=== PATIENT | female | born 1955 | race Caucasian/White ===

== ENCOUNTER 2020-10-27 11:46 | Inpatient (IN) ==
--- NOTE | 2020-10-27 12:22 | Emergency Department Note ---
History of Present Illness General Chief complaint: Illness Stated complaint: ILLNESS Time Seen by Provider: 10/27/20 12:02 Source: patient History of Present Illness Provider complaint: Diarrhea Onset (ago): day(s) Location: abdomen Severity: moderate Pain Consistency: + intermittent Quality: + other (Watery and loose) Exacerbated By: + other (Lack of her IBS medication) Associated symptoms: + fever/chills (Tactile fever last week), + nausea/vomiting and + weakness (Generalized); no chest pain, no cough, no headaches and no shortness of breath This is a 65-year-old female with a history of diabetes presenting with diarrhea. She has had it for over a week. She states that it is watery and loose. No alleviating factors. She states she believes she has it because she normally takes IBS and "binding" medication but has not had her meds for some time. She states that she normally has a helper who brings her groceries and her medications but they have not come for some time and she has had nothing to eat for the past several days and has not had her insulin or other medications. She has had some vomiting. She denies any headache, chest pain, abdominal pain, cough or cold symptoms or urinary symptoms. She does state that she feels like she is not urinating as much as usual. Paramedics report that the patient's refrigerator was empty and that her living space was in disarray. Home Medications Medication Instructions Recorded Confirmed Type buspirone 15 mg PO TID 10/25/20 10/27/20 History cholestyramine (with sugar) 1 ea PO BID 10/25/20 10/27/20 History clonazepam 0.5 mg PO BID 10/25/20 10/27/20 History divalproex 500 mg PO TID 10/25/20 10/27/20 History escitalopram oxalate 10 mg PO DAILY 10/25/20 10/27/20 History furosemide 20 mg PO QAM 10/25/20 10/27/20 History gabapentin 100 mg PO TID 10/25/20 10/27/20 History insulin aspart U-100 [Novolog 0 unit SUBCUT UD 10/25/20 10/27/20 History Flexpen U-100 Insulin] insulin glargine [Basaglar KwikPen 21 unit SUBCUT HS 10/25/20 10/27/20 History U-100 Insulin] [id number] [Creon] 1 cap PO TID 10/25/20 10/27/20 History pantoprazole 40 mg PO DAILY 10/25/20 10/27/20 History quetiapine 400 mg PO DAILY 10/25/20 10/27/20 History rivaroxaban [Xarelto] 20 mg PO DAILY 10/25/20 10/27/20 History loperamide [Anti-Diarrhea] 2 mg PO Q6H PRN 10/27/20 10/27/20 History Allergies Allergy/AdvReac Type Severity Reaction Status Date / Time egg AdvReac Severe Vomiting Unverified 10/27/20 12:34 Penicillins AdvReac Severe Vomiting Unverified 10/27/20 12:34 Past Med/Surg History Medical History (Updated 10/27/20 @ 18:26 by Helio Parisi MD) Anxiety and depression Arthritis Diabetes GERD (gastroesophageal reflux disease) Irritable bowel syndrome Schizoaffective disorder Surgical History (Updated 10/27/20 @ 14:57 by Elmo Centeno MD) History of section x2 Social History Smoking Status: Current every day smoker Cigarettes Per Day: patient doesn't know; Second Hand Exposure: Yes; Do You Dip or Chew Tobacco: No; Tobacco Cessation Education Requested by Patient: No Hx Alcohol Use: No Hx Substance Use: No Preferred Language: Sami Communication Ability: Effective Communication Ability Comment: can read and write just states she can't spell very well Gear Shaper Required: No Beliefs That Will Affect Care: None Current Living Situation: Alone Other Information That Helps Us Care for You: No Feels Safe at Home: No Is there a partner from a previous relationship who is making you feel unsafe now?: No Any Concerns about Your Family Situation: No Would You Like to Speak to Someone About Your Situation: Yes (patient is afraid for self because she can't care for herself) Safety Concerns: Afraid for Self Assistive Devices: Walker and Wheelchair Review of Systems See HPI for pertinent positives & negatives. and A total of 10 systems reviewed and were otherwise negative Physical Exam Vital Signs Vital Signs - 24 hr 10/27/20 11:40 10/27/20 12:51 10/27/20 13:00 Temperature 36.4 C L Temperature Source Oral Pulse Rate 83 84 84 Pulse Rate from SpO2 Sensor 84 84 Respiratory Rate 17 24 16 Blood Pressure 167/91 H 164/82 H 149/77 H Blood Pressure Mean 116 107 93 Pulse Oximetry 94 94 95 Oxygen Delivery Method Room Air Room Air Room Air Sepsis Recent Fever Within 48 Hours No Sepsis New/Unexplained Change in Mental Status No Sepsis Action Taken by Nursing No Action Required 10/27/20 13:30 10/27/20 14:00 10/27/20 14:30 Temperature Temperature Source Pulse Rate 83 82 Pulse Rate from SpO2 Sensor 84 83 82 Respiratory Rate 22 16 17 Blood Pressure 153/88 H 168/95 H 144/76 H Blood Pressure Mean 108 122 101 Pulse Oximetry 93 95 95 Oxygen Delivery Method Room Air Room Air Room Air Sepsis Recent Fever Within 48 Hours Sepsis New/Unexplained Change in Mental Status Sepsis Action Taken by Nursing 10/27/20 15:00 Temperature Temperature Source Pulse Rate 82 Pulse Rate from SpO2 Sensor 82 Respiratory Rate 13 Blood Pressure 138/84 Blood Pressure Mean 99 Pulse Oximetry 95 Oxygen Delivery Method Sepsis Recent Fever Within 48 Hours Sepsis New/Unexplained Change in Mental Status Sepsis Action Taken by Nursing Constitutional: Vital signs reviewed. Eyes: Pupils are equal round reactive to light. Conjunctiva are noninjected. ENT: Pharynx is clear without erythema or exudate. Mucous membranes are moist. Neck supple without meningeal signs. Respiratory: Clear to auscultation bilaterally. Breath sounds are equal bilaterally. Cardiovascular: Regular rate and rhythm. No rubs or gallops. GI: Soft, nondistended and nontender. Bowel sounds are present. Musculoskeletal: No peripheral edema. No lower extremity tenderness. Integumentary: No cyanosis. or jaundice. Neurological: The patient is awake and alert. No focal deficits. Psychiatric: Normal affect. Not anxious appearing. Course Administered Medications Discontinued Medications Potassium Chloride (K Zeferino / Wtr) 10 meq in 100 mls @ 100 mls/hr IV ONE ONE Stop: 10/27/20 14:32 Last Infusion: 10/27/20 14:52 Dose: 0 mls/hr Documented by: [id number] Admin: 10/27/20 13:45 Dose: 100 mls/hr Documented by: [id number] Sodium Chloride (Nss) 500 mls @ 125 mls/hr IV .Q4H MARY Stop: 11/26/20 13:44 Last Infusion: 10/27/20 17:53 Dose: 0 mls/hr Documented by: [id number] Admin: 10/27/20 13:45 Dose: 125 mls/hr Documented by: [id number] Insulin Aspart (Insulin Aspart Per Unit) 4 units SC ONE ONE Stop: 10/27/20 15:31 Last Admin: 10/27/20 16:39 Dose: Not Given Documented by: [id number] Ondansetron HCl (Ondansetron Inj 2 Mg/Ml 2 Ml Vial) 4 mg IV NOW STA Stop: 10/27/20 13:35 Last Admin: 10/27/20 13:45 Dose: 4 mg Documented by: [id number] Medical Decision Making Differential Diagnosis Gastroenteritis, dehydration, electrolyte abnormality, hyperglycemia, DKA, YANA Medical Records Attestation: I reviewed the patient's medical records. The patient was just seen here 2 days ago for similar symptoms as well as extremity pain. She was worked up extensively here with CT scans as well as CT angiograms and Doppler ultrasound of the extremity as well as x-rays and blood work. Her symptoms appear to improve significantly with a dose of morphine. She was tested for COVID-19 and this was negative. She was discharged home. Home Medications Current Medication List: was personally reviewed by me Laboratory Data Attestation: I reviewed the patient's lab results. Result diagrams: 10/27/20 12:50 10/27/20 12:50 Lab Results 10/27/20 10/27/20 10/27/20 Range/Units 12:50 12:50 12:50 WBC 6.04 (4.8-10.8) K/uL RBC 4.74 (4.2-5.4) M/uL Hgb 10.7 L (12.0-16.0) g/dL Hct 36.3 L (37-47) % MCV 76.6 L (80-100) fL MCH 22.6 L (25-34) pg MCHC 29.5 L (32-36) g/dL RDW Std Deviation 44.3 (36.4-46.3) fL RDW Coeff of [place] 16.0 H (11.5-14.5) % Plt Count 215 (130-400) K/uL MPV 9.6 (7.4-10.4) fL Immature Gran % (Auto) 0.3 % Neut % (Auto) 39.9 % Lymph % (Auto) 51.3 % [place] % (Auto) 7.5 % Eos % (Auto) 0.8 % Baso % (Auto) 0.2 % Neut # (Auto) 2.41 (1.4-6.5) K/uL Lymph # (Auto) 3.10 (1.2-3.4) K/uL [place] # (Auto) 0.45 (0.11-0.59) K/uL Eos # (Auto) 0.05 (0-0.5) K/uL Baso # (Auto) 0.01 (0-0.2) K/uL Immature Gran # (Auto) 0.02 (0.00-0.02) K/uL PT 11.9 (9.0-12.0) Seconds INR 1.1 (0.9-1.1) APTT 21.4 (21.0-31.0) Seconds PTT Ratio 0.8 Sodium 138 (136-145) mmol/L Potassium 2.9 L (3.5-5.1) mmol/L Chloride 103 (98-107) mmol/L Carbon Dioxide 28 (21-32) mmol/L Anion Gap 7.0 (3-11) BUN 5 L (7-18) mg/dl Creatinine 0.71 (0.6-1.2) mg/dl Est Cr Clr Drug Dosing 92.4 ml/min Est GFR ( Amer) 105.1 Est GFR (Non-Af Amer) 90.7 BUN/Creatinine Ratio 7.2 L (10-20) Glucose 296 H (70-99) mg/dl Calcium 8.9 (8.5-10.1) mg/dl Total Bilirubin 0.3 (0.2-1) mg/dl AST 9 L (15-37) U/L ALT 11 L (12-78) U/L Alkaline Phosphatase 246 H (45-117) U/L Troponin I < 0.015 (0-0.045) ng/ml Total Protein 6.9 (6.4-8.2) gm/dl Albumin 3.0 L (3.4-5.0) gm/dl Globulin 3.9 (2.5-4.0) gm/dl Albumin/Globulin Ratio 0.8 L (0.9-2) TSH (0.300-4.500) uIu/ml Free T4 (0.8-1.6) ng/dl 10/27/20 Range/Units 12:50 WBC (4.8-10.8) K/uL RBC (4.2-5.4) M/uL Hgb (12.0-16.0) g/dL Hct (37-47) % MCV (80-100) fL MCH (25-34) pg MCHC (32-36) g/dL RDW Std Deviation (36.4-46.3) fL RDW Coeff of Vernon (11.5-14.5) % Plt Count (130-400) K/uL MPV (7.4-10.4) fL Immature Gran % (Auto) % Neut % (Auto) % Lymph % (Auto) % [place] % (Auto) % Eos % (Auto) % Baso % (Auto) % Neut # (Auto) (1.4-6.5) K/uL Lymph # (Auto) (1.2-3.4) K/uL [place] # (Auto) (0.11-0.59) K/uL Eos # (Auto) (0-0.5) K/uL Baso # (Auto) (0-0.2) K/uL Immature Gran # (Auto) (0.00-0.02) K/uL PT (9.0-12.0) Seconds INR (0.9-1.1) APTT (21.0-31.0) Seconds PTT Ratio Sodium (136-145) mmol/L Potassium (3.5-5.1) mmol/L Chloride (98-107) mmol/L Carbon Dioxide (21-32) mmol/L Anion Gap (3-11) BUN (7-18) mg/dl Creatinine (0.6-1.2) mg/dl Est Cr Clr Drug Dosing ml/min Est GFR ( Amer) Est GFR (Non-Af Amer) BUN/Creatinine Ratio (10-20) Glucose (70-99) mg/dl Calcium (8.5-10.1) mg/dl Total Bilirubin (0.2-1) mg/dl AST (15-37) U/L ALT (12-78) U/L Alkaline Phosphatase (45-117) U/L Troponin I (0-0.045) ng/ml Total Protein (6.4-8.2) gm/dl Albumin (3.4-5.0) gm/dl Globulin (2.5-4.0) gm/dl Albumin/Globulin Ratio (0.9-2) TSH 5.210 H (0.300-4.500) uIu/ml Free T4 0.81 (0.8-1.6) ng/dl Imaging Data Radiologist's Impression: XR chest 1V portable HISTORY: Cough. eval for pna COMPARISON: Chest 10/25/2020. FINDINGS: Small linear densities at the left lung base suggestive of scarring or atelectasis. Otherwise, lungs are clear. No pleural effusions. No pneumothorax. The heart remains top normal in size. IMPRESSION: No significant change compared to the prior study. No acute process. ACT 112: Negative or not required by law. Electronically signed by: Wilfredo Byers M.D. 10/27/2020 1:03 PM Dictated: 10/27/20 1301 Transcribed: 10/27/20 1301 ECG Data Attestation: I personally reviewed and interpreted this ECG as follows: Indication: + weakness Rate (beats per minute): 81 Rhythm: + normal sinus ECG Intervals/blocks: + Right Bundle branch block ECG ST segments: + T-wave inversions ECG Findings: no PVCs Comparison ECG Date: from (October 25, 2020) Change: no significant change MDM Narrative I did evaluate the patient as noted above. She is presenting with vomiting and diarrhea. She states that she feels weak as well andShe is presenting with vomiting and diarrhea. She states that she feels weak as well andAnd does not know the last time she took her medications. She has poor recall of dates and states that she is not sure who used to bring her groceries. EMS had noted that she had no groceries in the refrigerator. IV access was established. I did place an order for continuous cardiac monitoring. The monitor showed Normal sinus rhythm at a rate of 78 bpm. I did order and personally review the patient's 12-lead EKG as described above. She has a right bundle branch block. I did order and personally reviewed the images of the patient's chest x-ray as described above. There is no evidence of pneumonia. I did order a urine analysis. I did order and review the patient's blood work as noted in the electronic medical record. She has hypokalemia and hyperglycemia. She has chronic anemia. I did treat her with KCl IV. She was also started on normal saline IV. I did discuss the case with the block and case maker. Unfortunately there is no bed availability for placement and no room at the rehabilitation hospital. She will be therefore hospitalized here for further care and evaluation. I did discuss the case with the hospitalist. Impression & Plan Hypokalemia, Failure to thrive, Acute hyperglycemia, Vomiting and diarrhea, Anemia Discharge Plan Visit Data Chief Complaint: Illness Stated Complaint: ILLNESS ED Provider: Helio Parisi Discharge Problem: Hypokalemia, Failure to thrive, Acute hyperglycemia, Vomiting and diarrhea, Anemia Patient Disposition: Admitted As Inpatient Discharge Instructions Interventions: ED Discharge Assessment Last Done: 10/27/20 16:44
[2020-10-27 13:01] LABS: Hematocrit (blood only) 36.3 % (37-47); Hemoglobin 10.7 g/dL (12.0-16.0); Mean Corpuscular Hemoglobin 22.6 pg (25-34); Mean Corpuscular Hgb Conc 29.5 g/dL (32-36); Mean Corpuscular Volume 76.6 fL (80-100); Mean Platelet Volume 9.6 fL (7.4-10.4); Platelet Count 215 K/uL (130-400); RDW Standard Deviation 44.3 fL (36.4-46.3); Red Blood Count 4.74 M/uL (4.2-5.4); White Blood Count 6.04 K/uL (4.8-10.8)
--- NOTE | 2020-10-27 13:04 | XRay Report ---
XR chest 1V portable HISTORY: Cough. eval for pna COMPARISON: Chest 10/25/2020. FINDINGS: Small linear densities at the left lung base suggestive of scarring or atelectasis. Otherwi se, lungs are clear. No pleural effusions. No pneumothorax. The heart remains top normal in size. IMPRESSION: No significant change compared to the prior study. No acute process. ACT 112: Negative or not required by law. Electronically signed by: Wilfredo Byers M.D. 10/27/2020 1:03 PM
[2020-10-27 13:12] LABS: INR 1.1 (0.9-1.1); Partial Thromboplastin Ratio 0.8; Partial Thromboplastin Time 21.4 Seconds (21.0-31.0); Prothrombin Time 11.9 Seconds (9.0-12.0)
[2020-10-27 13:19] LABS: Alanine Aminotransferase 11 U/L (12-78); Aspartate Aminotransferase 9 U/L (15-37); BUN Creatinine Ratio 7.2 (10-20); Blood Urea Nitrogen 5 mg/dl (7-18); Calcium 8.9 mg/dl (8.5-10.1); Carbon Dioxide 28 mmol/L (21-32); Chloride 103 mmol/L (98-107); Creatinine Clr Calc Pharmacy 92.4 ml/min; Est GFR (African American) 105.1; Est GFR (Non-African American) 90.7; Glucose 296 mg/dl (70-99); Potassium 2.9 mmol/L (3.5-5.1); Sodium 138 mmol/L (136-145)
[2020-10-27 13:24] LABS: Albumin Globulin Ratio 0.8 (0.9-2); Alkaline Phosphatase 246 U/L (45-117); Bilirubin,Total 0.3 mg/dl (0.2-1); Globulin 3.9 gm/dl (2.5-4.0); Total Protein 6.9 gm/dl (6.4-8.2); Troponin I < 0.015 ng/ml (0-0.045)
[2020-10-27 13:31] LABS: Basophils # (auto) 0.01 K/uL (0-0.2); Basophils % (auto) 0.2 %; Eosinophils # (auto) 0.05 K/uL (0-0.5); Eosinophils % (auto) 0.8 %; Immature Granulocytes # (auto) 0.02 K/uL (0.00-0.02); Immature Granulocytes % (auto) 0.3 %; Lymphocytes % (auto) 51.3 %; Monocytes # (auto) 0.45 K/uL (0.11-0.59); Monocytes % (auto) 7.5 %; Neutrophils # (auto) 2.41 K/uL (1.4-6.5); Neutrophils % (auto) 39.9 %
[2020-10-27] MEDS ORDERED: POTASSIUM CHLORIDE / WTR 10 MEQ/100 ML PLCT IV ONE (13:33)
[2020-10-27] MEDS ORDERED: ONDANSETRON INJ 2 MG/ML 2 ML VIAL IV STA (13:34)
[2020-10-27] MEDS: SODIUM CHLORIDE 0.9% 500 ML IV SCH ×2 (13:45→19:25)
--- NOTE | 2020-10-27 14:37 | History & Physical Report ---
Date of Service October 27, 2020 Assessment & Plan (1) Failure to thrive: PT/OT/discharge planning for likely need for placement (2) Anxiety and depression: Continue her routine mental health medication - unable to confirm this with PCP on admission however. Quetiapine 400mg HS daily, escitalopram 10mg PO daily, buspirone 15mg PO TID, valproate 500mg PO TID (no Hx seizure disorder) Will reduce clonazepam dose due to concern for short term memory loss (3) Schizoaffective disorder: as above (4) Irritable bowel syndrome: Continue her usual outpatient regimen with cholestyramine BID, pancreatic enzymes (?diagnosis of pancreatic insufficiency, no prior pancreatitis) and loperamide PRN. (5) Hypokalemia: Replaced in ER and with IV fluids. Monitor with AM labs. (6) Microcytic anemia: Iron studies with AM labs, follow up as an outpatient for potential need for colonoscopy. (7) Diabetes: HbA1C with AM labs. Switch Basaglar 21 units daily to lantus 10 units BID Novolog: Goal BSG Range: Low 100 mg/dL, High 140 mg/dL Correction Factor: 40 mg/dL/unit INS:CHO Ratio: 1unit per 13 gms CHO consumed BSGs ACHS if eating, q6h if npo (8) History of pulmonary embolism: Continue Xarelto 20mg PO daily Admission and Anticipated Discharge Date Admission Date: 10/27/2020 History of Present Illness Chief Complaint: Inability to care for herself, request for rehab placement Primary Care Provider: Kevin Lainez Tierra Gil is a 65-year-old female who presents to the ER via EMS due to unkept state and unable to care for self. She reports short term memory loss and did not take her medications this morning since she didn't have them and is unable to remember the last time she took them . She recently moved to [place], [place] but is unable to tell me for how long "maybe weeks". She has 2 daughters but does not have their numbers so unable to contact them. She doesn't know any other numbers she can call for a collateral history. Cannot remember her PCPs name. She reports being unable to care for herself at home and couldn't clean herself after having bowel movements. She also reports having nothing to eat at home. She is aware of some of her medical problems and medications including diabetes, IBS, Depression, anxiety, schizoaffective disorder and history of recurrent pulmonary emboli. PCP listed as Kevin Lainez who is a PA with psychiatry for [facility] but unfortunately it is currently outside of office hours to get more information. She denies any alcohol or illicit drug use. Smokes - unsure how much because she "gets them from the [facility]". She was recently in the ER 2 days previously which noted also recently being at [facility] and patient having minimal intake for past 24-48 hours, generalized myalgias and left shoulder pain (she notes chronic left shoulder arthritis). She was discharged home on that occasion. SARS-COV-2 negative and no respiratory symptoms since then. Thorough workup in the ER today was relatively unremarkable although UA pending (no urinary symptoms per patient). Unable to place the patient in rehabilitation from the ER therefore requested admission to medicine for ongoing management while awaiting placement in rehab. Allergies Allergy/AdvReac Type Severity Reaction Status Date / Time egg AdvReac Severe Vomiting Unverified 10/27/20 12:34 Penicillins AdvReac Severe Vomiting Unverified 10/27/20 12:34 Home Medications Medication Instructions Recorded Confirmed Type buspirone 15 mg PO TID 10/25/20 10/27/20 History cholestyramine (with sugar) 1 ea PO BID 10/25/20 10/27/20 History clonazepam 0.5 mg PO BID 10/25/20 10/27/20 History divalproex 500 mg PO TID 10/25/20 10/27/20 History escitalopram oxalate 10 mg PO DAILY 10/25/20 10/27/20 History furosemide 20 mg PO QAM 10/25/20 10/27/20 History gabapentin 100 mg PO TID 10/25/20 10/27/20 History insulin aspart U-100 [Novolog 0 unit SUBCUT UD 10/25/20 10/27/20 History Flexpen U-100 Insulin] insulin glargine [Basaglar KwikPen 21 unit SUBCUT HS 10/25/20 10/27/20 History U-100 Insulin] [id number] [Creon] 1 cap PO TID 10/25/20 10/27/20 History pantoprazole 40 mg PO DAILY 10/25/20 10/27/20 History quetiapine 400 mg PO DAILY 10/25/20 10/27/20 History rivaroxaban [Xarelto] 20 mg PO DAILY 10/25/20 10/27/20 History loperamide [Anti-Diarrhea] 2 mg PO Q6H PRN 10/27/20 10/27/20 History Past Med/Surg History Medical History Anxiety and depression Arthritis Diabetes GERD (gastroesophageal reflux disease) Irritable bowel syndrome Schizoaffective disorder Surgical History History of section x2 Social History Smoking Status: Current every day smoker Cigarettes Per Day: patient doesn't know; Second Hand Exposure: Yes; Do You Dip or Chew Tobacco: No; Tobacco Cessation Education Requested by Patient: No Hx Alcohol Use: No Hx Substance Use: No Preferred Language: Ukrainian Communication Ability: Effective Communication Ability Comment: can read and write just states she can't spell very well Customer Quality Specialist Required: No Beliefs That Will Affect Care: None Current Living Situation: Alone Other Information That Helps Us Care for You: No Feels Safe at Home: No Is there a partner from a previous relationship who is making you feel unsafe now?: No Any Concerns about Your Family Situation: No Would You Like to Speak to Someone About Your Situation: Yes (patient is afraid for self because she can't care for herself) Safety Concerns: Afraid for Self Assistive Devices: Walker and Wheelchair Review of Systems Review of Systems: All systems reviewed & are unremarkable except as noted in HPI & below Constitutional: + fatigue and + weakness (generalized); no increased appetite Eyes: no problem reported Ear, Nose, Mouth, Throat: no sore throat, no dysphagia and no problem reported Respiratory: no cough, no dyspnea and no problem reported (no CHRIS) Cardiovascular: + lightheadedness (occasional); no chest pain, no dyspnea at rest, no orthopnea, no paroxysmal nocturnal dyspnea, no palpitations, no syncope and no edema Gastrointestinal: + heartburn (under control with medication), + diarrhea/loose stools (chronic IBS - not taking her usual meds) and + problem reported (abdominal numbness); no abdominal pain, no nausea, no vomiting, no pain with swallowing, no blood in stools and no melena Genitourinary: no dysuria, no difficulty urinating, no urinary frequency, no urinary hesitancy, no urinary urgency and no urinary incontinence Musculoskeletal: + back pain, + myalgia and + body aches Neurologic: + unsteadiness, + generalized weakness, + numbness (abdomen) and + memory loss; no syncope and no headache(s) Psychiatric: + depression; no confusion and no hallucinations Physical Exam Constitutional: well developed and + morbidly obese; + not well nourished and no acute distress Eyes: PERRL, conjunctivae normal, anicteric sclerae ENMT: external ear and nose normal, oropharynx normal Neck: trachea midline, no thyromegaly Respiratory: normal respiratory effort, lungs clear to auscultation Cardiovascular: Rate/Rhythm: regular rate and regular rhythm Heart Sounds: no murmur Vessels: no JVD Extremities: normal capillary refill and + pedal edema (trace b/l equal); no calf tenderness Gastrointestinal (Abdomen): normal bowel sounds, soft, nontender, no hepatosplenomegaly Musculoskeletal: no cyanosis or clubbing, extremities motor strength 5/5 Skin: no rashes, warm and dry (no cellulitis, no sacral ulcers) Neurologic: moves all extremities and awake; no focal motor deficits and not confused Speech / Cognition: normal speech Motor/Sensory: no tremor, no pronator drift and no sensory deficit Cranial Nerves: normal facial strength Psychiatric: Orientation: alert and oriented x 3 Eye Contact: good eye contact Affect: euthymic affect Results & Data Results & Data ([facility]) Vital Signs (Past 12 Hours) Vital Signs Temp Pulse Resp BP Pulse Ox 10/27/20 14:00 83 16 168/95 H 95 10/27/20 13:30 22 153/88 H 93 10/27/20 13:00 84 16 149/77 H 95 10/27/20 12:51 84 24 164/82 H 94 10/27/20 11:40 36.4 C L 83 17 167/91 H 94 Diagnostic Findings XR chest 1V portable IMPRESSION: No significant change compared to the prior study. No acute process. Medications Administered ER medications given: KCl 10 meq IV NSS @ 125 ml/hr Ondansetron 4 mg IV ECG Indication: altered mental status Rate (beats per minute): 81 Rhythm: normal sinus Findings: + RBBB Comparison ECG Date: from (October 25, 2020) Change: no significant change Code Status & VTE Plan Code Status Full VTE Prophylaxis Plan VTE Prophylaxis will be ordered: Yes PG Care Time/CCT Total # of Minutes Spent Total Time Spent with Patient: Total time spent is greater than 50% in coordination of care (as documented) at patient's floor/unit and/or counseling patient: Coding Level of Care Code 13009 OBS Care - Level 3 Diagnoses Failure to thrive Anxiety and depression F41.9; F32.9 Schizoaffective disorder F25.9 Irritable bowel syndrome K58.9 Hypokalemia E87.6 Microcytic anemia D50.9 Diabetes E11.9 History of pulmonary embolism Z86.711
[2020-10-27] MEDS ORDERED: LANTUS PER UNIT CHARGE SQ STA (15:18)
[2020-10-27] MEDS ORDERED: INSULIN ASPART PER UNIT SC ONE (15:30)
[2020-10-27 15:56] LABS: Thyroid Stimulating Hormone 5.21 uIu/ml (0.300-4.500)
[2020-10-27 16:09] LABS: T4 Free Thyroxine 0.81 ng/dl (0.8-1.6)
[2020-10-27] MEDS ORDERED: GLUCOSE 10 TABS/TUBE PO PRN (17:17)
[2020-10-27] MEDS ORDERED: GLUCAGON FOR INJ 1 MG VIAL SQ PRN (17:17)
[2020-10-27] MEDS ORDERED: CARBOHYDRATES FOR HYPOGLYCEMIA PO PRN (17:17)
[2020-10-27] MEDS ORDERED: DEXTROSE 50% 50 ML SYRINGE IV PRN (17:17)
[2020-10-27] MEDS ORDERED: GLUCOSE 40% GEL 15 GM TUBE PO PRN (17:17)
[2020-10-27] MEDS ORDERED: LOPERAMIDE HCL 2 MG CAP PO PRN (17:45)
[2020-10-27] MEDS: INSULIN ASPART 100 UNITS/ML 3 ML PEN SC SCH ×2 (19:04→21:41)
[2020-10-27] MEDS: PANTOprazole 40 MG TAB PO SCH (19:06)
[2020-10-27] MEDS: ESCITALOPRAM OXALATE 10 MG TAB PO SCH (19:06)
[2020-10-27] MEDS: POTASSIUM CHLORIDE 40 MEQ in SODIUM CHLORIDE 0.9% 1000ML 1,000 ML IV SCH (19:06)
[2020-10-27 19:58] LABS: Appearance Urine Clear (Clear); Bilirubin Urine Negative (Negative); Blood Urine Negative (Negative); Color Urine Yellow; Glucose Urine UA 3+ (Negative); Ketones Urine 2+ (Negative); Leukocyte Esterase Urine Negative (Negative); Nitrite Urine Negative (Negative); Protein Urine Negative (Negative); Specific Gravity Urine 1.041 (1.000-1.030); Urobilinogen Urine Negative (Negative); pH Urine 5.5 (4.5-7.5)
[2020-10-27 20:21] LABS: Amphetamines+Metham, Urine Neg (Neg); Barbiturates, Urine Neg (Neg); Benzodiazepine, Urine Neg (Neg); Cocaine, Urine Neg (Neg); MDMA (Ecstacy), Urine Neg (Neg); Methadone, Urine Neg (Neg); Opiate, Urine Neg (Neg); Phencyclidine, Urine Neg (Neg)
[2020-10-27] MEDS: busPIRone 15 MG TAB PO SCH (20:27)
[2020-10-27] MEDS: DIVALPROEX EXTENDED RELEASE 500 MG TAB PO SCH (20:28)
[2020-10-27] MEDS: GABAPENTIN 100 MG CAP PO SCH (20:29)
[2020-10-27] MEDS: CHOLESTYRAMINE LIGHT 4 GM PKT PO SCH (20:29)
[2020-10-27] MEDS: QUEtiapine FUMARATE 200 MG TAB PO SCH (20:31)
[2020-10-27] MEDS: RIVAROXABAN 20 MG TAB PO SCH (20:31)
[2020-10-27] MEDS ORDERED: INSULIN GLARGINE SOLOSTAR 100 UNITS/ML 3 ML PEN SC SCH (21:00)
[2020-10-28] MEDS: ACETAMINOPHEN 325 MG TAB PO PRN ×3 (02:04→09:29)
[2020-10-28] MEDS: POTASSIUM CHLORIDE 40 MEQ in SODIUM CHLORIDE 0.9% 1000ML 1,000 ML IV SCH (03:40)
--- NOTE | 2020-10-28 06:49 | Electrocardiogram Report ---
Test Reason : Blood Pressure : / mmHG Vent. Rate : 081 BPM Atrial Rate : 081 BPM P-R Int : 164 ms QRS Dur : 140 ms QT Int : 424 ms P-R-T Axes : 055 115 -15 degrees QTc Int : 492 ms Normal sinus rhythm Right bundle branch block T wave abnormality, consider inferolateral ischemia Abnormal ECG When compared with ECG of 25-OCT-2020 10:14, No significant change was found Confirmed by Jose Luis Billings ([id number]) on 10/28/2020 6:49:09 AM Referred By: REFERRED SELF Confirmed By:Jose Luis Billings
[2020-10-28] MEDS: CHOLESTYRAMINE LIGHT 4 GM PKT PO SCH ×2 (07:52→22:30)
[2020-10-28 08:27] LABS: Hematocrit (blood only) 34.9 % (37-47); Hemoglobin 10.3 g/dL (12.0-16.0); Mean Corpuscular Hemoglobin 22.7 pg (25-34); Mean Corpuscular Hgb Conc 29.5 g/dL (32-36); Mean Platelet Volume 9.2 fL (7.4-10.4); Platelet Count 190 K/uL (130-400); RDW Coefficient of Variation 16.2 % (11.5-14.5); RDW Standard Deviation 45.3 fL (36.4-46.3); Red Blood Count 4.53 M/uL (4.2-5.4); White Blood Count 5.34 K/uL (4.8-10.8)
[2020-10-28 08:44] LABS: BUN Creatinine Ratio 6.2 (10-20); Calcium 8.5 mg/dl (8.5-10.1); Creatinine Clr Calc Pharmacy 100.5 ml/min; Magnesium 1.5 mg/dl (1.8-2.4); Potassium 3.4 mmol/L (3.5-5.1)
[2020-10-28 08:49] LABS: Ferritin 11.6 ng/ml (8-388)
[2020-10-28] MEDS ORDERED: INSULIN GLARGINE SOLOSTAR 100 UNITS/ML 3 ML PEN SC SCH (09:00)
[2020-10-28] MEDS: INSULIN ASPART 100 UNITS/ML 3 ML PEN SC SCH ×4 (09:29→21:07)
[2020-10-28] MEDS ORDERED: POTASSIUM CHLORIDE CRTAB 20 MEQ TABCR PO STA (09:32)
[2020-10-28] MEDS: DIVALPROEX EXTENDED RELEASE 500 MG TAB PO SCH ×3 (09:32→21:05)
[2020-10-28] MEDS: ESCITALOPRAM OXALATE 10 MG TAB PO SCH (09:33)
[2020-10-28] MEDS: busPIRone 15 MG TAB PO SCH ×3 (09:33→21:04)
[2020-10-28] MEDS: GABAPENTIN 100 MG CAP PO SCH ×3 (09:33→21:03)
[2020-10-28] MEDS: PANTOprazole 40 MG TAB PO SCH (09:33)
[2020-10-28] MEDS: FUROSEMIDE 20 MG TAB PO SCH (09:34)
[2020-10-28] MEDS ORDERED: IRON SUCROSE 300 MG in SODIUM CHLORIDE 0.9% 250 ML IV ONE (09:45)
[2020-10-28 09:48] LABS: Basophils # (auto) 0.01 K/uL (0-0.2); Basophils % (auto) 0.2 %; Eosinophils # (auto) 0.09 K/uL (0-0.5); Eosinophils % (auto) 1.7 %; Immature Granulocytes # (auto) 0.02 K/uL (0.00-0.02); Immature Granulocytes % (auto) 0.4 %; Lymphocytes # (auto) 3.42 K/uL (1.2-3.4); Monocytes # (auto) 0.37 K/uL (0.11-0.59); Monocytes % (auto) 6.9 %; Neutrophils # (auto) 1.43 K/uL (1.4-6.5); Neutrophils % (auto) 26.8 %
[2020-10-28 10:02] LABS: Estimated Average Glucose 352 mg/dl; Hemoglobin A1C 13.9 % (4.5-5.6)
[2020-10-28] MEDS: MAGNESIUM SULFATE / D5W 1 GM/100 ML BAG IV SCH ×3 (10:29→14:04)
[2020-10-28] MEDS ORDERED: PHARMACY GLYCEMIC MGMT CONSULT PRN (10:42)
--- NOTE | 2020-10-28 10:55 | Hospitalist Progress Note ---
Date of Service October 28, 2020 Assessment & Plan (1) Fatigue: * Admitted for failure to thrive and was found by EMS without food in refrigerator. Has not been receiving medications. Previously w/ waiver care but not sure when this stopped. CM assisting. Recently moved to [facility] * PT/OT evals pending * Patient found with hypoK, hypomag, dehydration * MCV 77 and iron studies added to labs -- Iron 20 LOW, transferrin 258 wnl, Transferrin % sat 5 LOW, ferritin 11.6 -- ordered Venofer IV for today (denies melena/hematochezia but states she doesn't look). Will ordered daily. FOCB if able to produce prior to infusion (would consult GI if + as she has no hx scope). H/h 10.3/34.9 * Mag 1.5-- ordered 3gm IV * K 3.4 -- 20mg PO ordered * TSH 5.2H, likely reactive, T4 wnl 0.8 * Phos added to AM labs, pending * Monitor electrolytes and replace as needed * NSS + K x 2 L. Taking adequate PO and will hold off on additional IVF for now. * CM assisting with placement at discharge * Depakote level pending * CBC, BMP in AM (2) Iron deficiency anemia: * MCV 77 and iron studies added to labs -- Iron 20 LOW, transferrin 258 wnl, Transferrin % sat 5 LOW, ferritin 11.6 -- ordered Venofer IV for today (denies melena/hematochezia but states she doesn't look). Will ordered daily. FOCB if able to produce prior to infusion (would consult GI if + as she has no hx scope). * H/h 10.3/34.9 * CBC in AM * May need scope outpt vs inpatient if continues to drop (3) Anxiety and depression: * Continue her routine mental health medication - unable to confirm this with PCP on admission however. * Quetiapine 400mg HS daily, escitalopram 10mg PO daily, buspirone 15mg PO TID, valproate 500mg PO TID (no Hx seizure disorder) * Will reduce clonazepam dose due to concern for short term memory loss -- also added B1 level (4) Schizoaffective disorder: * as above (5) Diabetes: * HbA1C with AM labs -- 13.9 * Switch Basaglar 21 units daily to lantus 10 units BID * Novolog: * Goal BSG Range: Low 100 mg/dL, High 140 mg/dL * Correction Factor: 40 mg/dL/unit * INS:CHO Ratio: 1unit per 13 gms CHO consumed * BSGs ACHS if eating, q6h if npo * Pharmacy consulted for glycemic management -- had not been receiving her insulin CITRIX ARCHITECT (6) Irritable bowel syndrome: * Continue her usual outpatient regimen with cholestyramine BID, pancreatic enzymes (?diagnosis of pancreatic insufficiency, no prior pancreatitis) and loperamide PRN. (7) Hypokalemia: * Replaced in ER and with IV fluids -- likely secondary to PO intake CITRIX ARCHITECT * K 3.4 on AM labs and ordered 20meq PO * BMP in AM (8) Microcytic anemia: * See above (9) Hypomagnesemia: * Mag 1.5 -- ordered 3gm IV * Mag in AM (10) Failure to thrive: * PT/OT/discharge planning for likely need for placement -- rec 24h care * CM assisting (11) History of pulmonary embolism: * Continue Xarelto 20mg PO daily L toe pain * Xray pending * Podiatry consult -- if unable to do inpatient will need f/u outpatient Dispo: changed to full admission Admission and Anticipated Discharge Date Admission Date: October 28, 2020 Subjective Patient evaluated this afternoon, sitting up in bed eating fish for lunch. She states she has been having left great toe pain, has not been evaluated by podiatry in the past but does have claw toes b/l feet. Will ask podiatry if able to see while inpatient. She is also having back and neck pain and we will add oral medication and k-pad. She has been fatigued and short of breath with minimal exertion and we discussed her low iron and need for transfusion while inpatient and will continue oral s upplementation at discharge. Plans for personal care facility. She states her granddaughter was going to take care of her and she subsequently discontinued her caregivers but that her granddaughter left there. She notes she did not have any food or access to her medications for days. She feels unsafe at home and is worried about discharge to home at discharge. Discussed CM assisting and that we will look into personal care facilities at discharge. No fever, chills, cough, nausea, vomiting, or abdominal pain at this time. Review of Systems Review of Systems: All systems reviewed & are unremarkable except as noted in HPI & below Physical Exam Constitutional: well developed and + morbidly obese; + not well nourished and no acute distress Eyes: PERRL, conjunctivae normal, anicteric sclerae ENMT: dry mm Neck: trachea midline, no thyromegaly Respiratory: normal respiratory effort, lungs clear to auscultation Cardiovascular: Rate/Rhythm: regular rate and regular rhythm Heart Sounds: no murmur Vessels: no JVD Extremities: normal capillary refill and + pedal edema (trace b/l equal); no calf tenderness Gastrointestinal (Abdomen): normal bowel sounds, soft, nontender, no hepatosplenomegaly Musculoskeletal: no cyanosis or clubbing, extremities motor strength 5/5 Skin: warm, dry L great toe pain - claw toe, tender to palpation. no open/draining ulcer appreciated fungal appearance to remainer of toes -- all R foot Neurologic: moves all extremities and awake; no focal motor deficits and not confused Speech / Cognition: normal speech Motor/Sensory: no tremor, no pronator drift and no sensory deficit Cranial Nerves: normal facial strength Psychiatric: Orientation: alert and oriented x 3 Eye Contact: good eye contact Affect: euthymic affect Results & Data Results & Data ([facility]) Vital Signs (Past 12 Hours) Vital Signs Temp Pulse Resp BP Pulse Ox 10/28/20 10:41 36.8 C 78 20 119/78 96 10/28/20 07:16 36.9 C 76 20 137/72 90 10/27/20 23:12 36.7 C 86 16 109/71 93 Laboratory Results 10/28/20 10/28/20 10/28/20 Range/Units 08:10 08:10 07:59 WBC 5.34 (4.8-10.8) K/uL RBC 4.53 (4.2-5.4) M/uL Hgb 10.3 L (12.0-16.0) g/dL Hct 34.9 L (37-47) % MCV 77.0 L (80-100) fL MCH 22.7 L (25-34) pg MCHC 29.5 L (32-36) g/dL RDW Std Deviation 45.3 (36.4-46.3) fL RDW Coeff of [place] 16.2 H (11.5-14.5) % Plt Count 190 (130-400) K/uL MPV 9.2 (7.4-10.4) fL Immature Gran % (Auto) 0.4 % Neut % (Auto) 26.8 % Lymph % (Auto) 64.0 % [place] % (Auto) 6.9 % Eos % (Auto) 1.7 % Baso % (Auto) 0.2 % Neut # (Auto) 1.43 (1.4-6.5) K/uL Lymph # (Auto) 3.42 H (1.2-3.4) K/uL [place] # (Auto) 0.37 (0.11-0.59) K/uL Eos # (Auto) 0.09 (0-0.5) K/uL Baso # (Auto) 0.01 (0-0.2) K/uL Immature Gran # (Auto) 0.02 (0.00-0.02) K/uL PT (9.0-12.0) Seconds INR (0.9-1.1) APTT (21.0-31.0) Seconds PTT Ratio Sodium (136-145) mmol/L Potassium (3.5-5.1) mmol/L Chloride (98-107) mmol/L Carbon Dioxide (21-32) mmol/L Anion Gap (3-11) BUN (7-18) mg/dl Creatinine (0.6-1.2) mg/dl Est Cr Clr Drug Dosing ml/min Est GFR ( Amer) Est GFR (Non-Af Amer) BUN/Creatinine Ratio (10-20) Glucose (70-99) mg/dl POC Glucose 193 H (70-99) mg/dl Estimat Average Glucose 352 mg/dl Hemoglobin A1c 13.9 H (4.5-5.6) % Calcium (8.5-10.1) mg/dl Magnesium (1.8-2.4) mg/dl Iron (35-150) mcg/dl Transferrin (200-360) mg/dl Transferrin % Sat (15-50) % Ferritin (8-388) ng/ml Total Bilirubin (0.2-1) mg/dl AST (15-37) U/L ALT (12-78) U/L Alkaline Phosphatase (45-117) U/L Troponin I (0-0.045) ng/ml Total Protein (6.4-8.2) gm/dl Albumin (3.4-5.0) gm/dl Globulin (2.5-4.0) gm/dl Albumin/Globulin Ratio (0.9-2) TSH (0.300-4.500) uIu/ml Free T4 (0.8-1.6) ng/dl Urine Color Urine Appearance (Clear) Urine pH (4.5-7.5) Ur Specific [place] (1.000-1.030) Urine Protein (Negative) Urine Glucose (UA) (Negative) Urine Ketones (Negative) Urine Blood (Negative) Urine Nitrite (Negative) Urine Bilirubin (Negative) Urine Urobilinogen (Negative) Ur Leukocyte Esterase (Negative) Urine Opiates Screen (Neg) Ur Methadone, Qual (Neg) Urine Barbiturates (Neg) Ur Phencyclidine (PCP) (Neg) U Amphetamin/Meth Scrn (Neg) MDMA (Ecstasy) Screen (Neg) U Benzodiazepines Scrn (Neg) Ur Cocaine Metabolite (Neg) U Marijuana (THC) Screen (Neg) Hepatitis C Ab Screen (Neg) SARS-CoV-2 Ag (Rapid) (Negative) 10/28/20 10/28/20 10/27/20 Range/Units 07:36 07:36 21:39 WBC (4.8-10.8) K/uL RBC (4.2-5.4) M/uL Hgb (12.0-16.0) g/dL Hct (37-47) % MCV (80-100) fL MCH (25-34) pg MCHC (32-36) g/dL RDW Std Deviation (36.4-46.3) fL RDW Coeff of [place] (11.5-14.5) % Plt Count (130-400) K/uL MPV (7.4-10.4) fL Immature Gran % (Auto) % Neut % (Auto) % Lymph % (Auto) % [place] % (Auto) % Eos % (Auto) % Baso % (Auto) % Neut # (Auto) (1.4-6.5) K/uL Lymph # (Auto) (1.2-3.4) K/uL [place] # (Auto) (0.11-0.59) K/uL Eos # (Auto) (0-0.5) K/uL Baso # (Auto) (0-0.2) K/uL Immature Gran # (Auto) (0.00-0.02) K/uL PT (9.0-12.0) Seconds INR (0.9-1.1) APTT (21.0-31.0) Seconds PTT Ratio Sodium 140 (136-145) mmol/L Potassium 3.4 L D (3.5-5.1) mmol/L Chloride 108 H (98-107) mmol/L Carbon Dioxide 25 (21-32) mmol/L Anion Gap 6.0 (3-11) BUN 4 L (7-18) mg/dl Creatinine 0.66 (0.6-1.2) mg/dl Est Cr Clr Drug Dosing 100.5 ml/min Est GFR ( Amer) 109.0 Est GFR (Non-Af Amer) 94.0 BUN/Creatinine Ratio 6.2 L (10-20) Glucose 184 H (70-99) mg/dl POC Glucose 227 H (70-99) mg/dl Estimat Average Glucose mg/dl Hemoglobin A1c (4.5-5.6) % Calcium 8.5 (8.5-10.1) mg/dl Magnesium 1.5 L (1.8-2.4) mg/dl Iron 20 L (35-150) mcg/dl Transferrin 258 (200-360) mg/dl Transferrin % Sat 5 L (15-50) % Ferritin 11.6 (8-388) ng/ml Total Bilirubin (0.2-1) mg/dl AST (15-37) U/L ALT (12-78) U/L Alkaline Phosphatase (45-117) U/L Troponin I (0-0.045) ng/ml Total Protein (6.4-8.2) gm/dl Albumin (3.4-5.0) gm/dl Globulin (2.5-4.0) gm/dl Albumin/Globulin Ratio (0.9-2) TSH (0.300-4.500) uIu/ml Free T4 (0.8-1.6) ng/dl Urine Color Urine Appearance (Clear) Urine pH (4.5-7.5) Ur Specific [place] (1.000-1.030) Urine Protein (Negative) Urine Glucose (UA) (Negative) Urine Ketones (Negative) Urine Blood (Negative) Urine Nitrite (Negative) Urine Bilirubin (Negative) Urine Urobilinogen (Negative) Ur Leukocyte Esterase (Negative) Urine Opiates Screen (Neg) Ur Methadone, Qual (Neg) Urine Barbiturates (Neg) Ur Phencyclidine (PCP) (Neg) U Amphetamin/Meth Scrn (Neg) MDMA (Ecstasy) Screen (Neg) U Benzodiazepines Scrn (Neg) Ur Cocaine Metabolite (Neg) U Marijuana (THC) Screen (Neg) Hepatitis C Ab Screen Neg (Neg) SARS-CoV-2 Ag (Rapid) (Negative) 10/27/20 10/27/20 10/27/20 Range/Units 19:40 19:40 17:24 WBC (4.8-10.8) K/uL RBC (4.2-5.4) M/uL Hgb (12.0-16.0) g/dL Hct (37-47) % MCV (80-100) fL MCH (25-34) pg MCHC (32-36) g/dL RDW Std Deviation (36.4-46.3) fL RDW Coeff of [place] (11.5-14.5) % Plt Count (130-400) K/uL MPV (7.4-10.4) fL Immature Gran % (Auto) % Neut % (Auto) % Lymph % (Auto) % [place] % (Auto) % Eos % (Auto) % Baso % (Auto) % Neut # (Auto) (1.4-6.5) K/uL Lymph # (Auto) (1.2-3.4) K/uL [place] # (Auto) (0.11-0.59) K/uL Eos # (Auto) (0-0.5) K/uL Baso # (Auto) (0-0.2) K/uL Immature Gran # (Auto) (0.00-0.02) K/uL PT (9.0-12.0) Seconds INR (0.9-1.1) APTT (21.0-31.0) Seconds PTT Ratio Sodium (136-145) mmol/L Potassium (3.5-5.1) mmol/L Chloride (98-107) mmol/L Carbon Dioxide (21-32) mmol/L Anion Gap (3-11) BUN (7-18) mg/dl Creatinine (0.6-1.2) mg/dl Est Cr Clr Drug Dosing ml/min Est GFR ( Amer) Est GFR (Non-Af Amer) BUN/Creatinine Ratio (10-20) Glucose (70-99) mg/dl POC Glucose 234 H (70-99) mg/dl Estimat Average Glucose mg/dl Hemoglobin A1c (4.5-5.6) % Calcium (8.5-10.1) mg/dl Magnesium (1.8-2.4) mg/dl Iron (35-150) mcg/dl Transferrin (200-360) mg/dl Transferrin % Sat (15-50) % Ferritin (8-388) ng/ml Total Bilirubin (0.2-1) mg/dl AST (15-37) U/L ALT (12-78) U/L Alkaline Phosphatase (45-117) U/L Troponin I (0-0.045) ng/ml Total Protein (6.4-8.2) gm/dl Albumin (3.4-5.0) gm/dl Globulin (2.5-4.0) gm/dl Albumin/Globulin Ratio (0.9-2) TSH (0.300-4.500) uIu/ml Free T4 (0.8-1.6) ng/dl Urine Color Yellow Urine Appearance Clear (Clear) Urine pH 5.5 (4.5-7.5) Ur Specific [place] 1.041 H (1.000-1.030) Urine Protein Negative (Negative) Urine Glucose (UA) 3+ H (Negative) Urine Ketones 2+ H (Negative) Urine Blood Negative (Negative) Urine Nitrite Negative (Negative) Urine Bilirubin Negative (Negative) Urine Urobilinogen Negative (Negative) Ur Leukocyte Esterase Negative (Negative) Urine Opiates Screen Neg (Neg) Ur Methadone, Qual Neg (Neg) Urine Barbiturates Neg (Neg) Ur Phencyclidine (PCP) Neg (Neg) U Amphetamin/Meth Scrn Neg (Neg) MDMA (Ecstasy) Screen Neg (Neg) U Benzodiazepines Scrn Neg (Neg) Ur Cocaine Metabolite Neg (Neg) U Marijuana (THC) Screen Neg (Neg) Hepatitis C Ab Screen (Neg) SARS-CoV-2 Ag (Rapid) (Negative) 10/27/20 10/27/20 10/27/20 Range/Units 16:24 12:50 12:50 WBC 6.04 (4.8-10.8) K/uL RBC 4.74 (4.2-5.4) M/uL Hgb 10.7 L (12.0-16.0) g/dL Hct 36.3 L (37-47) % MCV 76.6 L (80-100) fL MCH 22.6 L (25-34) pg MCHC 29.5 L (32-36) g/dL RDW Std Deviation 44.3 (36.4-46.3) fL RDW Coeff of [place] 16.0 H (11.5-14.5) % Plt Count 215 (130-400) K/uL MPV 9.6 (7.4-10.4) fL Immature Gran % (Auto) 0.3 % Neut % (Auto) 39.9 % Lymph % (Auto) 51.3 % [place] % (Auto) 7.5 % Eos % (Auto) 0.8 % Baso % (Auto) 0.2 % Neut # (Auto) 2.41 (1.4-6.5) K/uL Lymph # (Auto) 3.10 (1.2-3.4) K/uL [place] # (Auto) 0.45 (0.11-0.59) K/uL Eos # (Auto) 0.05 (0-0.5) K/uL Baso # (Auto) 0.01 (0-0.2) K/uL Immature Gran # (Auto) 0.02 (0.00-0.02) K/uL PT (9.0-12.0) Seconds INR (0.9-1.1) APTT (21.0-31.0) Seconds PTT Ratio Sodium (136-145) mmol/L Potassium (3.5-5.1) mmol/L Chloride (98-107) mmol/L Carbon Dioxide (21-32) mmol/L Anion Gap (3-11) BUN (7-18) mg/dl Creatinine (0.6-1.2) mg/dl Est Cr Clr Drug Dosing ml/min Est GFR ( Amer) Est GFR (Non-Af Amer) BUN/Creatinine Ratio (10-20) Glucose (70-99) mg/dl POC Glucose (70-99) mg/dl Estimat Average Glucose mg/dl Hemoglobin A1c (4.5-5.6) % Calcium (8.5-10.1) mg/dl Magnesium (1.8-2.4) mg/dl Iron (35-150) mcg/dl Transferrin (200-360) mg/dl Transferrin % Sat (15-50) % Ferritin (8-388) ng/ml Total Bilirubin (0.2-1) mg/dl AST (15-37) U/L ALT (12-78) U/L Alkaline Phosphatase (45-117) U/L Troponin I (0-0.045) ng/ml Total Protein (6.4-8.2) gm/dl Albumin (3.4-5.0) gm/dl Globulin (2.5-4.0) gm/dl Albumin/Globulin Ratio (0.9-2) TSH 5.210 H (0.300-4.500) uIu/ml Free T4 0.81 (0.8-1.6) ng/dl Urine Color Urine Appearance (Clear) Urine pH (4.5-7.5) Ur Specific [place] (1.000-1.030) Urine Protein (Negative) Urine Glucose (UA) (Negative) Urine Ketones (Negative) Urine Blood (Negative) Urine Nitrite (Negative) Urine Bilirubin (Negative) Urine Urobilinogen (Negative) Ur Leukocyte Esterase (Negative) Urine Opiates Screen (Neg) Ur Methadone, Qual (Neg) Urine Barbiturates (Neg) Ur Phencyclidine (PCP) (Neg) U Amphetamin/Meth Scrn (Neg) MDMA (Ecstasy) Screen (Neg) U Benzodiazepines Scrn (Neg) Ur Cocaine Metabolite (Neg) U Marijuana (THC) Screen (Neg) Hepatitis C Ab Screen (Neg) SARS-CoV-2 Ag (Rapid) Negative (Negative) 10/27/20 10/27/20 Range/Units 12:50 12:50 WBC (4.8-10.8) K/uL RBC (4.2-5.4) M/uL Hgb (12.0-16.0) g/dL Hct (37-47) % MCV (80-100) fL MCH (25-34) pg MCHC (32-36) g/dL RDW Std Deviation (36.4-46.3) fL RDW Coeff of [place] (11.5-14.5) % Plt Count (130-400) K/uL MPV (7.4-10.4) fL Immature Gran % (Auto) % Neut % (Auto) % Lymph % (Auto) % [place] % (Auto) % Eos % (Auto) % Baso % (Auto) % Neut # (Auto) (1.4-6.5) K/uL Lymph # (Auto) (1.2-3.4) K/uL [place] # (Auto) (0.11-0.59) K/uL Eos # (Auto) (0-0.5) K/uL Baso # (Auto) (0-0.2) K/uL Immature Gran # (Auto) (0.00-0.02) K/uL PT 11.9 (9.0-12.0) Seconds INR 1.1 (0.9-1.1) APTT 21.4 (21.0-31.0) Seconds PTT Ratio 0.8 Sodium 138 (136-145) mmol/L Potassium 2.9 L (3.5-5.1) mmol/L Chloride 103 (98-107) mmol/L Carbon Dioxide 28 (21-32) mmol/L Anion Gap 7.0 (3-11) BUN 5 L (7-18) mg/dl Creatinine 0.71 (0.6-1.2) mg/dl Est Cr Clr Drug Dosing 92.4 ml/min Est GFR ( Amer) 105.1 Est GFR (Non-Af Amer) 90.7 BUN/Creatinine Ratio 7.2 L (10-20) Glucose 296 H (70-99) mg/dl POC Glucose (70-99) mg/dl Estimat Average Glucose mg/dl Hemoglobin A1c (4.5-5.6) % Calcium 8.9 (8.5-10.1) mg/dl Magnesium (1.8-2.4) mg/dl Iron (35-150) mcg/dl Transferrin (200-360) mg/dl Transferrin % Sat (15-50) % Ferritin (8-388) ng/ml Total Bilirubin 0.3 (0.2-1) mg/dl AST 9 L (15-37) U/L ALT 11 L (12-78) U/L Alkaline Phosphatase 246 H (45-117) U/L Troponin I < 0.015 (0-0.045) ng/ml Total Protein 6.9 (6.4-8.2) gm/dl Albumin 3.0 L (3.4-5.0) gm/dl Globulin 3.9 (2.5-4.0) gm/dl Albumin/Globulin Ratio 0.8 L (0.9-2) TSH (0.300-4.500) uIu/ml Free T4 (0.8-1.6) ng/dl Urine Color Urine Appearance (Clear) Urine pH (4.5-7.5) Ur Specific [place] (1.000-1.030) Urine Protein (Negative) Urine Glucose (UA) (Negative) Urine Ketones (Negative) Urine Blood (Negative) Urine Nitrite (Negative) Urine Bilirubin (Negative) Urine Urobilinogen (Negative) Ur Leukocyte Esterase (Negative) Urine Opiates Screen (Neg) Ur Methadone, Qual (Neg) Urine Barbiturates (Neg) Ur Phencyclidine (PCP) (Neg) U Amphetamin/Meth Scrn (Neg) MDMA (Ecstasy) Screen (Neg) U Benzodiazepines Scrn (Neg) Ur Cocaine Metabolite (Neg) U Marijuana (THC) Screen (Neg) Hepatitis C Ab Screen (Neg) SARS-CoV-2 Ag (Rapid) (Negative) PG Care Time/CCT Total # of Minutes Spent Total Time Spent with Patient: Total time spent is greater than 50% in coordination of care (as documented) at patient's floor/unit and/or counseling patient: Coding Level of Care Code 17887 Subseq Hosp Care Lvl 3 Diagnoses Fatigue R53.83 Iron deficiency anemia D50.9 Anxiety and depression F41.9; F32.9 Schizoaffective disorder F25.9 Diabetes E11.9 Irritable bowel syndrome K58.9 Hypokalemia E87.6 Microcytic anemia D50.9 Hypomagnesemia E83.42 Failure to thrive R62.7 Failure to thrive age range: in adult History of pulmonary embolism Z86.711 (1) Failure to thrive Failure to thrive age range: in adult Qualified Code(s): R62.7 - Adult failure to thrive
[2020-10-28] MEDS ORDERED: INSULIN GLARGINE SOLOSTAR 100 UNITS/ML 3 ML PEN SC ONE (13:45)
--- NOTE | 2020-10-28 13:52 | Pharmacy Report ---
Pharmacy Glycemic Short Note 2 - Date of Service October 28, 2020 - Glycemic Short BSG Results (Last 24 hours): 10/27/20 10/27/20 10/28/20 17:24 21:39 07:36 Glucose 184 H POC Glucose 234 H 227 H 10/28/20 10/28/20 07:59 12:16 Glucose POC Glucose 193 H 275 H OUTPATIENT ANTIDIABETIC REGIMEN: * Basaglar 21 units SC HS * Novolog SC TIDM * HbA1c: 13.9% (10/28/20) * Patient reports that her helper who provides groceries and medications has not been by recently - it has been several days since she has taken any insulin ASSESSMENT: * AP is a 65 year old female admitted on 10/27/20 for failure to thrive and expected need for rehab placement * Patient is very poor historian and has not been taking her medications for at least several days * Pharmacy consulted around lunchtime on 10/28 due to persistent hyperglycemia during this hospitalization * BSGs so far this admission of 234, 227, 193 (fasting), and 275 mg/dL * Prior to consult, patient was ordered Lantus 10 units SC BID and Novolog ACHS (correction factor of 40, carb ratio of 13) * Patient received 10 units of Lantus this morning - will give one-time 25 unit dose this afternoon to approximately equal weight-based (adjusted body weight) stress of 3 dosing * Will also tighten Novolog parameters considerably PLAN FOR INPATIENT GLYCEMIC CONTROL: * Hold outpatient oral diabetes medications * Basal insulin * Lantus 35 units SC today * Will reassess fasting BSG in the morning and adjust Lantus as appropriate * Bolus insulin * NovoLog per scale ACHS or Q6hrs while NPO * Goal Range: Low 110 mg/dL - High 140 mg/dL * Correction Factor: 20 mg/dL/unit * Nutritional / Prandial insulin per carb ratio of 1 unit per 7 grams CHO consumed
--- NOTE | 2020-10-28 14:27 | XRay Report ---
XR foot LT min 3V routine CLINICAL HISTORY: great toe pain, diabetic. Chronic heel pain. COMPARISON STUDY: None. FINDINGS: No fracture or dislocation within the left foot. Plantar heel spur. Mild soft tissue swelli ng within the left foot. No destructive changes to suggest osteomyelitis. Mild degenerative changes w ithin the DIP and PIP joints of the left foot. IMPRESSION: 1. Diffuse soft tissue swelling within the left foot. 2. No bony destruction to suggest osteoarthritis. ACT 112: Negative or not required by law. Electronically signed by: Wilfredo Byers M.D. 10/28/2020 2:26 PM
[2020-10-28] MEDS: traMADol HCL 50 MG TABLET PO PRN ×2 (14:51→19:14)
[2020-10-28] MEDS: LIDOCAINE 5% 1 PATCH TD SCH ×2 (14:51→21:00)
[2020-10-28] MEDS: ONDANSETRON INJ 2 MG/ML 2 ML VIAL IV PRN ×2 (16:25→20:58)
[2020-10-28] MEDS ORDERED: LIDOCAINE 5% 1 PATCH TD SCH (20:00)
[2020-10-28] MEDS: RIVAROXABAN 20 MG TAB PO SCH (21:03)
[2020-10-28] MEDS: QUEtiapine FUMARATE 200 MG TAB PO SCH (21:04)
[2020-10-28] MEDS: clonazePAM 0.25 MG TAB PO PRN (21:12)
[2020-10-29] MEDS: INSULIN ASPART 100 UNITS/ML 3 ML PEN SC SCH ×6 (00:38→21:02)
[2020-10-29 06:54] LABS: Hematocrit (blood only) 37.1 % (37-47); Hemoglobin 10.9 g/dL (12.0-16.0); Mean Corpuscular Hemoglobin 22.9 pg (25-34); Mean Corpuscular Hgb Conc 29.4 g/dL (32-36); Mean Corpuscular Volume 77.8 fL (80-100); Mean Platelet Volume 9.4 fL (7.4-10.4); Platelet Count 213 K/uL (130-400); RDW Coefficient of Variation 16.4 % (11.5-14.5); RDW Standard Deviation 46.2 fL (36.4-46.3); Red Blood Count 4.77 M/uL (4.2-5.4); White Blood Count 4.68 K/uL (4.8-10.8)
[2020-10-29 07:13] LABS: Albumin Level 2.9 gm/dl (3.4-5.0); BUN Creatinine Ratio 5.7 (10-20); Calcium 9.3 mg/dl (8.5-10.1); Creatinine Clr Calc Pharmacy 94.7 ml/min; Est GFR (African American) 106.9; Est GFR (Non-African American) 92.2; Magnesium 1.9 mg/dl (1.8-2.4); Potassium 3.6 mmol/L (3.5-5.1)
[2020-10-29 07:16] LABS: Albumin Globulin Ratio 0.7 (0.9-2); Bilirubin,Total 0.3 mg/dl (0.2-1); Globulin 3.9 gm/dl (2.5-4.0); Total Protein 6.8 gm/dl (6.4-8.2)
[2020-10-29] MEDS: CHOLESTYRAMINE LIGHT 4 GM PKT PO SCH ×3 (08:45→21:11)
[2020-10-29] MEDS ORDERED: INSULIN GLARGINE SOLOSTAR 100 UNITS/ML 3 ML PEN SC SCH (09:00)
[2020-10-29] MEDS: ONDANSETRON INJ 2 MG/ML 2 ML VIAL IV PRN (09:13)
[2020-10-29] MEDS: DIVALPROEX EXTENDED RELEASE 500 MG TAB PO SCH ×3 (09:21→19:54)
[2020-10-29] MEDS: busPIRone 15 MG TAB PO SCH ×3 (09:21→19:55)
[2020-10-29] MEDS: FUROSEMIDE 20 MG TAB PO SCH (09:22)
[2020-10-29] MEDS: ESCITALOPRAM OXALATE 10 MG TAB PO SCH (09:23)
[2020-10-29] MEDS: LIDOCAINE 5% 1 PATCH TD SCH ×2 (09:24→19:20)
[2020-10-29] MEDS: GABAPENTIN 100 MG CAP PO SCH ×3 (09:29→19:55)
[2020-10-29] MEDS: PANTOprazole 40 MG TAB PO SCH (09:29)
--- NOTE | 2020-10-29 13:03 | Podiatry Consultation ---
Date of Consultation October 29, 2020 Assessment & Plan (1) Failure to thrive: Failure to thrive age range: in adult Qualified Code(s): R62.7 - Adult failure to thrive (2) Diabetes: (3) Tinea unguium: History of Present Illness Attending Physician: Helio Leonard MD Patient seen at bedside today for care of her toenails, It appears she has not had care in a very long time. Patient was a very poor historian during visit and was falling asleep, did manage to say to me that her left foot was very painful because of her toenails. Otherwise, she was not able to say much else except that she hasn't had care in a long time. Toenails debrided with nail nippers to tolerance without bleeding or infection noted and patient tolerated the procedure well and thanked me afterwards. Thank you for the consult and I do believe the patient should continue to have podiatric care in the outpatient setting as I feel she is unable to provedie self care. Allergies Allergy/AdvReac Type Severity Reaction Status Date / Time egg AdvReac Severe Vomiting Unverified 10/27/20 12:34 Penicillins AdvReac Severe Vomiting Unverified 10/27/20 12:34 Home Medications Medication Instructions Recorded Confirmed Type buspirone 15 mg PO TID 10/25/20 10/27/20 History cholestyramine (with sugar) 1 ea PO BID 10/25/20 10/27/20 History clonazepam 0.5 mg PO BID 10/25/20 10/27/20 History divalproex 500 mg PO TID 10/25/20 10/27/20 History escitalopram oxalate 10 mg PO DAILY 10/25/20 10/27/20 History furosemide 20 mg PO QAM 10/25/20 10/27/20 History gabapentin 100 mg PO TID 10/25/20 10/27/20 History insulin aspart U-100 [Novolog 0 unit SUBCUT UD 10/25/20 10/27/20 History Flexpen U-100 Insulin] insulin glargine [Basaglar KwikPen 21 unit SUBCUT HS 10/25/20 10/27/20 History U-100 Insulin] [id number] [Creon] 1 cap PO TID 10/25/20 10/27/20 History pantoprazole 40 mg PO DAILY 10/25/20 10/27/20 History quetiapine 400 mg PO DAILY 10/25/20 10/27/20 History rivaroxaban [Xarelto] 20 mg PO DAILY 10/25/20 10/27/20 History loperamide [Anti-Diarrhea] 2 mg PO Q6H PRN 10/27/20 10/27/20 History Patient History Medical History Anxiety and depression Arthritis Diabetes GERD (gastroesophageal reflux disease) History of pulmonary embolism Irritable bowel syndrome Schizoaffective disorder Surgical History History of section x2 Social History Smoking Status: Current every day smoker Cigarettes Per Day: patient doesn't know; Second Hand Exposure: Yes; Do You Dip or Chew Tobacco: No; Tobacco Cessation Education Requested by Patient: No Hx Alcohol Use: No Hx Substance Use: No Preferred Language: Upper Sorbian Communication Ability: Effective Communication Ability Comment: can read and write just states she can't spell 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 Beliefs That Will Affect Care: None marital status: Unknown Current Living Situation: Alone Other Information That Helps Us Care for You: No Feels Safe at Home: No Is there a partner from a previous relationship who is making you feel unsafe now?: No Any Concerns about Your Family Situation: No Would You Like to Speak to Someone About Your Situation: Yes (patient is afraid for self because she can't care for herself) Safety Concerns: Afraid for Self Assistive Devices: None Physical Exam Skin: toenails of digits 1-5 of both feet in need of debridement, nails were very long, especially of the left hallux and 2nd toenails. There was dirt under the nails, and they appear to have not had care. interspaces intact without maceration or break down. DP pulse palpable 1 out of 4, PT palpable 1 out of 4. pedal hair absent. Neurovascular status intact. No open wounds present on the feet. Results & Data ([facility]) Vital Signs (Past 12 Hours) Vital Signs Temp Pulse Resp BP Pulse Ox 10/29/20 07:17 36.9 C 82 16 106/71 92
[2020-10-29] MEDS: traMADol HCL 50 MG TABLET PO PRN ×2 (13:14→19:53)
--- NOTE | 2020-10-29 13:52 | Pharmacy Report ---
Glycemic Control Progress Note - Date of Service October 29, 2020 - Scope Glycemic Pharmacist consulted for glycemic control to write orders per [facility] inpatient glycemic control protocol. - Objective Accuchecks BSG(last 24 hours):: 10/28/20 10/28/20 10/28/20 17:13 20:38 23:57 Glucose POC Glucose 158 H 186 H 206 H 10/29/20 10/29/20 10/29/20 03:56 06:40 08:07 Glucose 148 H POC Glucose 181 H 165 H 10/29/20 12:10 Glucose POC Glucose 236 H HbA1c:: Hemoglobin A1c 13.9 % (4.5-5.6) H 10/28/20 08:10 - Recent Pertinent Medications The patient is currently receiving: * Basal insulin: Lantus 35 units every 24 hours * Correctional Insulin: Novolog Correction per scale ACHS Goal Range: Low 110 mg/dL - High 140 mg/dL Correction Factor: 20 mg/dL/unit * Prandial insulin: Per carb ratio of 1 unit per 7 grams CHO consumed - Outpatient Anti-Diabetic Meds Basaglar 21 units HS Novolog - Assessment & Plan ASSESSMENT: * See progress note from 10/28/20 for more background info, in short: * Pt receiving SQ basal bolus insulin regimen for hyperglycemia secondary to baseline DM (outpatient regimen on hold). * Patient is currently receiving an average of 57 units of insulin per day * 35 units of basal insulin * 22 units of prandial/correctional insulin * BSGs ranging 158 - 275 mg/dl over the past 24hrs * Changes needed to insulin regimen: * AM Fasting BSG = 168 mg/dl. This is just slightly above goal range for patient based on inpatient targets and co-morbidities. Will start Lantus 20 units BID. * Post-prandial BSGs are in range therefore no changes needed to CF/CR. * Total daily dose = ~60-70 units. PLAN FOR INPATIENT GLYCEMIC CONTROL: * Starting Lantus 20 units SQ BID * Continuing correction factor of 20 mg/dl/unit * Continuing carb ratio of 1 unit per 7 grams CHO consumed * Continuing goal range of Low 110 mg/dL - High 140 mg/dL * Please note that the plan above was derived based on current level of insulin resistance and hospital stress. These recommendations are appropriate for inpatient admission only. Plan of care upon discharge will need to be reassessed to avoid potential outpatient hypo/hyperglycemia. Thank you.
[2020-10-29] MEDS ORDERED: CHOLESTYRAMINE LIGHT 4 GM PKT PO SCH (15:00)
[2020-10-29] MEDS: ACETAMINOPHEN 325 MG TAB PO PRN (15:44)
--- NOTE | 2020-10-29 15:57 | Hospitalist Progress Note ---
Date of Service October 29, 2020 Assessment & Plan (1) Fatigue: * Admitted for failure to thrive and was found by EMS without food in refrigerator. Has not been receiving medications. Previously w/ waiver care but not sure when this stopped. CM assisting. Recently moved to [facility] * Patient also found with hypoK, hypomag, dehydration on admission * MCV 77 and iron studies added to labs -- Iron 20 LOW, transferrin 258 wnl, Transferrin % sat 5 LOW, ferritin 11.6 * -- ordered Venofer IV for 10/28 and will repeat tomorrow * today (denies melena/hematochezia but states she doesn't look). Will ordered daily. FOCB if able to produce prior to infusion (would consult GI if + as she has no hx scope). H/h 10.3/34.9 * TSH 5.2H, likely reactive, T4 wnl 0.8 (low normal) - consider repeat in 3-4 weeks and initiate 25mcg levothyroxine daily if TSH continues to be elevated * Monitor electrolytes and replace as needed * NSS + K x 2 L. Taking adequate PO and will hold off on additional IVF for now. * Depakote level wnl * Lyme pending * Procal negative * Will check CK/ammonia and ask psych to see patient as well for schizoaffective disorder/medication adjustments * PT/OT rec 24h care * CM assisting with placement at discharge (2) Iron deficiency anemia: * MCV 77 and iron studies added to labs -- Iron 20 LOW, transferrin 258 wnl, Transferrin % sat 5 LOW, ferritin 11.6 -- ordered Venofer IV for today (denies melena/hematochezia but states she doesn't look). Will ordered daily. FOCB if able to produce prior to infusion (would consult GI if + as she has no hx scope) -- no BM since yesterday morning and then received iron * H/h improved to 10.9/37.1 * CBC in AM (3) Anxiety and depression: * Continue her routine mental health medication - unable to confirm this with PCP on admission however. * Quetiapine 400mg HS daily, escitalopram 10mg PO daily, buspirone 15mg PO TID, valproate 500mg PO TID (no Hx seizure disorder) * Will reduce clonazepam dose due to concern for short term memory loss -- also added B1 level and will now start thiamine daily * Psych consulted as patient with brief period of hallucination today "seeing butterflies" as well as patient without medication compliance due to access at home -- appreciate assistance (4) Schizoaffective disorder: * as above (5) Diabetes: * HbA1C with AM labs -- 13.9 * Switch Basaglar 21 units daily to lantus 10 units BID * Novolog: * Goal BSG Range: Low 100 mg/dL, High 140 mg/dL * Correction Factor: 40 mg/dL/unit * INS:CHO Ratio: 1unit per 13 gms CHO consumed * BSGs ACHS if eating, q6h if npo * Pharmacy consulted for glycemic management -- 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 * K 3.4 on AM labs and ordered 20meq PO * K resolved -- 3.36 * BMP in AM (8) Microcytic anemia: * See above (9) Hypomagnesemia: * Mag 1.5 -- ordered 3gm IV * Mag wnl on repeat (10) Failure to thrive: * PT/OT/discharge planning for likely need for placement -- rec 24h care * CM assisting (11) History of pulmonary embolism: * Continue Xarelto 20mg PO daily L toe pain * Xray with diffuse soft tissue swelling, no bony destruction to suggest osteoarthritis * Podiatry consult -- seen today and had toenails debrided * --> will need outpatient follow up for podiatric care Admission and Anticipated Discharge Date Admission Date: October 28, 2020 Subjective Patient evaluated this morning. Pain improved with heating pad and lidocaine patch. Patient very sleepy after getting cleaned up this morning. Requesting to rest. Discussed repeat iron transfusion for tomorrow and CM working on placement. Have not heard back from family. Unable to contact. No fever, chill, chest pain, shortness of breath at rest, abdominal pain, nausea or vomiting. Ate well this morning. +flatus. BM yesterday reported. Patient with poor eye contact and not really wanting to participate much in conversation today. Review of Systems Review of Systems: All systems reviewed & are unremarkable except as noted in HPI & below Physical Exam Constitutional: well developed and + morbidly obese; + not well nourished and no acute distress Eyes: PERRL, conjunctivae normal, anicteric sclerae Neck: trachea midline, no thyromegaly Respiratory: normal respiratory effort, lungs clear to auscultation Auscultation: + diminished lung sounds; no rales and no wheezes Cardiovascular: Rate/Rhythm: regular rate and regular rhythm Heart Sounds: no murmur Vessels: no JVD Extremities: normal capillary refill and + pedal edema (trace b/l equal); no calf tenderness Gastrointestinal (Abdomen): normal bowel sounds, soft, nontender, no hepatosplenomegaly Musculoskeletal: Head/Neck/Chest: normocephalic and head atraumatic moves all extremities strength equal Skin: L great toe pain, - claw toe, tender to palpation. no open/draining ulcer appreciated fungal appearance to remainder of toes -- all R foot NVI pulses palpable bilaterally, equal calves non-tender to palpation Neurologic: moves all extremities and awake; no focal motor deficits and not confused Speech / Cognition: normal speech Motor/Sensory: no tremor, no pronator drift and no sensory deficit Cranial Nerves: normal facial strength Psychiatric: Orientation: alert, oriented to person and oriented to place Eye Contact: + poor eye contact Affect: + flat affect Results & Data Results & Data ([facility]) Vital Signs (Past 12 Hours) Vital Signs Temp Pulse Resp BP Pulse Ox 10/29/20 15:42 37.0 C 85 18 105/70 92 10/29/20 07:17 36.9 C 82 16 106/71 92 Laboratory Results 10/29/20 10/29/20 10/29/20 Range/Units 17:08 12:10 08:07 WBC (4.8-10.8) K/uL RBC (4.2-5.4) M/uL Hgb (12.0-16.0) g/dL Hct (37-47) % MCV (80-100) fL MCH (25-34) pg MCHC (32-36) g/dL RDW Std Deviation (36.4-46.3) fL RDW Coeff of Vernon (11.5-14.5) % Plt Count (130-400) K/uL MPV (7.4-10.4) fL Sodium (136-145) mmol/L Potassium (3.5-5.1) mmol/L Chloride (98-107) mmol/L Carbon Dioxide (21-32) mmol/L Anion Gap (3-11) BUN (7-18) mg/dl Creatinine (0.6-1.2) mg/dl Est Cr Clr Drug Dosing ml/min Est GFR ( Amer) Est GFR (Non-Af Amer) BUN/Creatinine Ratio (10-20) Glucose (70-99) mg/dl POC Glucose 194 H 236 H 165 H (70-99) mg/dl Calcium (8.5-10.1) mg/dl Magnesium (1.8-2.4) mg/dl Total Bilirubin (0.2-1) mg/dl AST (15-37) U/L ALT (12-78) U/L Alkaline Phosphatase (45-117) U/L Total Protein (6.4-8.2) gm/dl Albumin (3.4-5.0) gm/dl Globulin (2.5-4.0) gm/dl Albumin/Globulin Ratio (0.9-2) Procalcitonin (0-0.5) ng/ml 10/29/20 10/29/20 10/29/20 Range/Units 06:44 06:40 06:40 WBC 4.68 L (4.8-10.8) K/uL RBC 4.77 (4.2-5.4) M/uL Hgb 10.9 L (12.0-16.0) g/dL Hct 37.1 (37-47) % MCV 77.8 L (80-100) fL MCH 22.9 L (25-34) pg MCHC 29.4 L (32-36) g/dL RDW Std Deviation 46.2 (36.4-46.3) fL RDW Coeff of [place] 16.4 H (11.5-14.5) % Plt Count 213 (130-400) K/uL MPV 9.4 (7.4-10.4) fL Sodium 141 (136-145) mmol/L Potassium 3.6 (3.5-5.1) mmol/L Chloride 108 H (98-107) mmol/L Carbon Dioxide 27 (21-32) mmol/L Anion Gap 6.0 (3-11) BUN 4 L (7-18) mg/dl Creatinine 0.70 (0.6-1.2) mg/dl Est Cr Clr Drug Dosing 94.7 ml/min Est GFR ( Amer) 106.9 Est GFR (Non-Af Amer) 92.2 BUN/Creatinine Ratio 5.7 L (10-20) Glucose 148 H (70-99) mg/dl POC Glucose (70-99) mg/dl Calcium 9.3 (8.5-10.1) mg/dl Magnesium 1.9 (1.8-2.4) mg/dl Total Bilirubin 0.3 (0.2-1) mg/dl AST 6 L (15-37) U/L ALT 8 L (12-78) U/L Alkaline Phosphatase 225 H (45-117) U/L Total Protein 6.8 (6.4-8.2) gm/dl Albumin 2.9 L (3.4-5.0) gm/dl Globulin 3.9 (2.5-4.0) gm/dl Albumin/Globulin Ratio 0.7 L (0.9-2) Procalcitonin < 0.05 (0-0.5) ng/ml 10/29/20 10/28/20 10/28/20 Range/Units 03:56 23:57 20:38 WBC (4.8-10.8) K/uL RBC (4.2-5.4) M/uL Hgb (12.0-16.0) g/dL Hct (37-47) % MCV (80-100) fL MCH (25-34) pg MCHC (32-36) g/dL RDW Std Deviation (36.4-46.3) fL RDW Coeff of [place] (11.5-14.5) % Plt Count (130-400) K/uL MPV (7.4-10.4) fL Sodium (136-145) mmol/L Potassium (3.5-5.1) mmol/L Chloride (98-107) mmol/L Carbon Dioxide (21-32) mmol/L Anion Gap (3-11) BUN (7-18) mg/dl Creatinine (0.6-1.2) mg/dl Est Cr Clr Drug Dosing ml/min Est GFR ( Amer) Est GFR (Non-Af Amer) BUN/Creatinine Ratio (10-20) Glucose (70-99) mg/dl POC Glucose 181 H 206 H 186 H (70-99) mg/dl Calcium (8.5-10.1) mg/dl Magnesium (1.8-2.4) mg/dl Total Bilirubin (0.2-1) mg/dl AST (15-37) U/L ALT (12-78) U/L Alkaline Phosphatase (45-117) U/L Total Protein (6.4-8.2) gm/dl Albumin (3.4-5.0) gm/dl Globulin (2.5-4.0) gm/dl Albumin/Globulin Ratio (0.9-2) Procalcitonin (0-0.5) ng/ml Diagnostic Findings XR foot LT min 3V routine CLINICAL HISTORY: great toe pain, diabetic. Chronic heel pain. COMPARISON STUDY: None. FINDINGS: No fracture or dislocation within the left foot. Plantar heel spur. Mild soft tissue swelling within the left foot. No destructive changes to suggest osteomyelitis. Mild degenerative changes within the DIP and PIP joints of the left foot. IMPRESSION: 1. Diffuse soft tissue swelling within the left foot. 2. No bony destruction to suggest osteoarthritis. PG Care Time/CCT Total # of Minutes Spent Total Time Spent with Patient: Total time spent is greater than 50% in coordination of care (as documented) at patient's floor/unit and/or counseling patient: Coding Level of Care Code 93910 Subseq Hosp Care Lvl 2 Diagnoses Fatigue R53.83 Iron deficiency anemia D50.9 Anxiety and depression F41.9; F32.9 Schizoaffective disorder F25.9 Diabetes E11.9 Irritable bowel syndrome K58.9 Hypokalemia E87.6 Microcytic anemia D50.9 Hypomagnesemia E83.42 Failure to thrive R62.7 Failure to thrive age range: in adult History of pulmonary embolism Z86.711 (1) Failure to thrive Failure to thrive age range: in adult Qualified Code(s): R62.7 - Adult failure to thrive
[2020-10-29] MEDS: PANCREAZE (LIPASE 10,500U) CAP PO SCH (18:13)
[2020-10-29] MEDS: QUEtiapine FUMARATE 200 MG TAB PO SCH (19:54)
[2020-10-29] MEDS: RIVAROXABAN 20 MG TAB PO SCH (19:56)
[2020-10-29] MEDS: THIAMINE HCL 100 MG TAB PO SCH (20:11)
[2020-10-29] MEDS: DOCUSATE SODIUM/SENNA 50/8.6MG TAB PO SCH (20:11)
[2020-10-29 20:37] LABS: Lyme Ab IgG w/WB Rflx Negative (Negative); Lyme Ab IgM w/WB Rflx Negative (Negative)
[2020-10-29] MEDS: INSULIN GLARGINE SOLOSTAR 100 UNITS/ML 3 ML PEN SC SCH (21:01)
[2020-10-30] MEDS: traMADol HCL 50 MG TABLET PO PRN ×2 (02:50→14:13)
[2020-10-30] MEDS: THIAMINE HCL 100 MG TAB PO SCH (09:13)
[2020-10-30] MEDS: POLYETHYLENE (MIRALAX) 17 GM PACK PO SCH (09:13)
[2020-10-30] MEDS: FUROSEMIDE 20 MG TAB PO SCH (09:13)
[2020-10-30] MEDS: DOCUSATE SODIUM/SENNA 50/8.6MG TAB PO SCH (09:13)
[2020-10-30] MEDS: busPIRone 15 MG TAB PO SCH ×3 (09:14→22:07)
[2020-10-30] MEDS: PANTOprazole 40 MG TAB PO SCH (09:14)
[2020-10-30] MEDS: DIVALPROEX EXTENDED RELEASE 500 MG TAB PO SCH ×3 (09:14→22:07)
[2020-10-30] MEDS: LIDOCAINE 5% 1 PATCH TD SCH ×2 (09:15→21:02)
[2020-10-30] MEDS: PANCREAZE (LIPASE 10,500U) CAP PO SCH ×3 (09:15→16:28)
[2020-10-30] MEDS: GABAPENTIN 100 MG CAP PO SCH ×3 (09:15→22:06)
[2020-10-30] MEDS: ESCITALOPRAM OXALATE 10 MG TAB PO SCH (09:15)
[2020-10-30] MEDS: INSULIN GLARGINE SOLOSTAR 100 UNITS/ML 3 ML PEN SC SCH ×2 (09:21→22:05)
[2020-10-30] MEDS: INSULIN ASPART 100 UNITS/ML 3 ML PEN SC SCH ×4 (09:21→21:02)
[2020-10-30 10:32] LABS: Hematocrit (blood only) 35.2 % (37-47); Hemoglobin 10.3 g/dL (12.0-16.0); Mean Corpuscular Hemoglobin 22.8 pg (25-34); Mean Corpuscular Hgb Conc 29.3 g/dL (32-36); Mean Platelet Volume 9.5 fL (7.4-10.4); Platelet Count 201 K/uL (130-400); RDW Coefficient of Variation 16.8 % (11.5-14.5); RDW Standard Deviation 47.6 fL (36.4-46.3); Red Blood Count 4.51 M/uL (4.2-5.4); White Blood Count 5.93 K/uL (4.8-10.8)
[2020-10-30] MEDS: CHOLESTYRAMINE LIGHT 4 GM PKT PO SCH (10:32)
[2020-10-30] MEDS: ONDANSETRON INJ 2 MG/ML 2 ML VIAL IV PRN (10:35)
[2020-10-30 10:58] LABS: Albumin Level 2.6 gm/dl (3.4-5.0); BUN Creatinine Ratio 6.5 (10-20); Creatinine Clr Calc Pharmacy 86.1 ml/min; Est GFR (African American) 95.2; Est GFR (Non-African American) 82.2; Potassium 4.1 mmol/L (3.5-5.1)
[2020-10-30 11:01] LABS: Albumin Globulin Ratio 0.8 (0.9-2); Bilirubin,Total 0.3 mg/dl (0.2-1); Globulin 3.4 gm/dl (2.5-4.0)
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
--- NOTE | 2020-10-30 11:38 | Hospitalist Progress Note ---
Date of Service October 30, 2020 Assessment & Plan (1) Fatigue: * Admitted for failure to thrive and was found by EMS without food in refrigerator. Has not been receiving medications. Previously w/ waiver care but not sure when this stopped. CM assisting. Recently moved to [facility] * Likely combination of dehydration, lack of access to food/medications, iron deficiency anemia * TSH 5.2H, likely reactive, T4 wnl 0.8 (low normal) - consider repeat in 3-4 weeks and initiate 25mcg levothyroxine daily if TFT abnormal * Depakote level wnl * Lyme negative * Procal negative * Ammonia wnl, CK low * MCV 77 and iron studies added to labs -- Iron 20 LOW, transferrin 258 wnl, Transferrin % sat 5 LOW, ferritin 11.6 * -- ordered Venofer IV for 10/28 and will repeat 10/30 * FOCB if able to produce prior to infusion (would consult GI if + as she has no hx scope). H/h 10.3/34.9 * PT/OT rec 24h care * CM assisting with placement at discharge -- patient is a target. Likely to remain inpatient through next week (2) Abdominal pain: * Reported nausea but no pain, more "crampy" but was tender to palpation RUQ with elevated alk phos. Tbili wnl. ?bilary colic in pt with obesity and likely fatty liver * Tbili wnl and no prior abd pain, however patient has not had BM for 2 days and received IV venofer 10/28. * Ordered US GB * Has been afebrile, no white count * Monitor (3) Iron deficiency anemia: * MCV 77 and iron studies added to labs -- Iron 20 LOW, transferrin 258 wnl, Transferrin % sat 5 LOW, ferritin 11.6 -- ordered Venofer IV for today (denies melena/hematochezia but states she doesn't look). Will ordered daily. FOCB if able to produce prior to infusion (would consult GI if + as she has no hx scope) -- no BM since yesterday morning and then received iron * Repeat venofer IV today (second dose) and will plan on repeating in next day or two. Then should be on daily supplementation at discharge * H/h 10.3/35.2 * CBC in AM (4) Anxiety and depression: * Continue her routine mental health medication - unable to confirm this with PCP on admission however. * Quetiapine 400mg HS daily, escitalopram 10mg PO daily, buspirone 15mg PO TID, valproate 500mg PO TID (no Hx seizure disorder) * Will reduce clonazepam dose due to concern for short term memory loss -- also added B1 level and will now start thiamine daily * Psych consulted as patient with brief period of hallucination today "seeing butterflies" as well as patient without medication compliance due to access at home -- appreciate assistance * Req outpatient records and to arrange follow up care * Continue current regimen (5) Schizoaffective disorder: * as above (6) Diabetes: * HbA1C with AM labs -- 13.9 * Switch Basaglar 21 units daily to lantus 10 units BID * Novolog: * Goal BSG Range: Low 100 mg/dL, High 140 mg/dL * Correction Factor: 40 mg/dL/unit * INS:CHO Ratio: 1unit per 13 gms CHO consumed * BSGs ACHS if eating, q6h if npo * Pharmacy consulted for glycemic management -- had not been receiving her insulin 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 (8) Hypokalemia: * Replaced in ER and with IV fluids -- likely secondary to PO intake PHARMACY TECHNICIAN PER DIEM * K 3.4 on AM labs and ordered 20meq PO * K continues to be stable, 4.1 * BMP in AM (9) Microcytic anemia: * See above (10) Hypomagnesemia: * Mag 1.5 -- ordered 3gm IV * Mag wnl on repeat (11) Failure to thrive: * PT/OT/discharge planning for likely need for placement -- rec 24h care * CM assisting (12) History of pulmonary embolism: * Continue Xarelto 20mg PO daily (13) Tinea unguium: L toe pain * Xray with diffuse soft tissue swelling, no bony destruction to suggest osteoarthritis * Podiatry consult -- seen today and had toenails debrided * --> will need outpatient follow up for podiatric care Dispo; patient target with psychiatric illness -- CM following. Likely to remain inpatient until arrangements able to be made Admission and Anticipated Discharge Date Admission Date: October 28, 2020 Subjective Patient evaluated this afternoon. Much more alert and improved mood. Main concern about discharge disposition. Discussed we will ensure safe discharge plan and will not discharge prior to getting her into [facility] for safety but this may be until next week for bed availability. Improved energy today and plans for repeat iron transfusion this afternoon. Passing gas but no BM. Feels stomach grumbling, active BS, but does note some cramping and RUQ discomfort which is tender to palpation. Discussed obtaining ultrasound as patient still with GB per her account and no s cars to indicate prior lap vadim. Did work with therapy and a walker which is improved from her usual as she typically uses a wheelchair at home. Discussed continuing ambulation to help with BM as well as she would like to avoid further softener/laxative as they tend to worsen her cramping. No fever, chills, chest pain, shortness of breath with activity has improved since administration of iron. Seen by psych this afternoon and will continue current medications. Patient pleasant and very thankful at the end of our conversation. Review of Systems Review of Systems: All systems reviewed & are unremarkable except as noted in HPI & below Physical Exam Constitutional: well developed, well nourished and + morbidly obese; no acute distress Eyes: PERRL, conjunctivae normal, anicteric sclerae Neck: trachea midline, no thyromegaly Respiratory: normal respiratory effort, lungs clear to auscultation Auscultation: + diminished lung sounds; no rales and no wheezes Cardiovascular: Rate/Rhythm: regular rate and regular rhythm Heart Sounds: no murmur Vessels: no JVD Extremities: normal capillary refill; no calf tenderness Gastrointestinal (Abdomen): Inspection/Auscultation: abdomen normal to inspection, normal bowel sounds and + significant pannus; abdomen not distended Percussion/Palpation: + abdomen tender (RUQ) and abdomen soft; no guarding and abdomen not rigid Musculoskeletal: no cyanosis or clubbing, extremities motor strength 5/5 Head/Neck/Chest: normocephalic and head atraumatic Skin: toenails with thickening/fungal appearance but have all been cut/debrided non-tender to palpation L great toe pain, - claw toe, tender to palpation. no open/draining ulcer appreciated NVI pulses palpable bilaterally, equal calves non-tender to palpation Neurologic: moves all extremities and awake; no focal motor deficits and not confused Speech / Cognition: normal speech Motor/Sensory: no tremor, no pronator drift and no sensory deficit Cranial Nerves: normal facial strength Psychiatric: Orientation: alert, oriented to person, oriented to place and oriented to time Eye Contact: good eye contact Lymphatic: no cervical or axillary lymphadenopathy Results & Data Results & Data ([facility]) Vital Signs (Past 12 Hours) Vital Signs Temp Pulse Resp BP Pulse Ox 10/30/20 08:14 36.9 C 75 16 105/71 93 Laboratory Results 10/30/20 10/30/20 10/30/20 Range/Units 12:20 10:17 10:17 WBC 5.93 (4.8-10.8) K/uL RBC 4.51 (4.2-5.4) M/uL Hgb 10.3 L (12.0-16.0) g/dL Hct 35.2 L (37-47) % MCV 78.0 L (80-100) fL MCH 22.8 L (25-34) pg MCHC 29.3 L (32-36) g/dL RDW Std Deviation 47.6 H (36.4-46.3) fL RDW Coeff of [place] 16.8 H (11.5-14.5) % Plt Count 201 (130-400) K/uL MPV 9.5 (7.4-10.4) fL Sodium 139 (136-145) mmol/L Potassium 4.1 (3.5-5.1) mmol/L Chloride 106 (98-107) mmol/L Carbon Dioxide 26 (21-32) mmol/L Anion Gap 7.0 (3-11) BUN 5 L (7-18) mg/dl Creatinine 0.77 (0.6-1.2) mg/dl Est Cr Clr Drug Dosing 86.1 ml/min Est GFR ( Amer) 95.2 Est GFR (Non-Af Amer) 82.2 BUN/Creatinine Ratio 6.5 L (10-20) Glucose 185 H (70-99) mg/dl POC Glucose 163 H (70-99) mg/dl Calcium 9.0 (8.5-10.1) mg/dl Total Bilirubin 0.3 (0.2-1) mg/dl AST 8 L (15-37) U/L ALT 6 L (12-78) U/L Alkaline Phosphatase 183 H (45-117) U/L Ammonia (11-32) umol/L Total Creatine Kinase (26-192) U/L Total Protein 6.0 L (6.4-8.2) gm/dl Albumin 2.6 L (3.4-5.0) gm/dl Globulin 3.4 (2.5-4.0) gm/dl Albumin/Globulin Ratio 0.8 L (0.9-2) Lyme Disease IgG Ab (Negative) Lyme Disease IgM Ab (Negative) 10/30/20 10/29/20 10/29/20 Range/Units 08:29 20:59 20:49 WBC (4.8-10.8) K/uL RBC (4.2-5.4) M/uL Hgb (12.0-16.0) g/dL Hct (37-47) % MCV (80-100) fL MCH (25-34) pg MCHC (32-36) g/dL RDW Std Deviation (36.4-46.3) fL RDW Coeff of Vernon (11.5-14.5) % Plt Count (130-400) K/uL MPV (7.4-10.4) fL Sodium (136-145) mmol/L Potassium (3.5-5.1) mmol/L Chloride (98-107) mmol/L Carbon Dioxide (21-32) mmol/L Anion Gap (3-11) BUN (7-18) mg/dl Creatinine (0.6-1.2) mg/dl Est Cr Clr Drug Dosing ml/min Est GFR ( Amer) Est GFR (Non-Af Amer) BUN/Creatinine Ratio (10-20) Glucose (70-99) mg/dl POC Glucose 112 H 170 H 167 H (70-99) mg/dl Calcium (8.5-10.1) mg/dl Total Bilirubin (0.2-1) mg/dl AST (15-37) U/L ALT (12-78) U/L Alkaline Phosphatase (45-117) U/L Ammonia (11-32) umol/L Total Creatine Kinase (26-192) U/L Total Protein (6.4-8.2) gm/dl Albumin (3.4-5.0) gm/dl Globulin (2.5-4.0) gm/dl Albumin/Globulin Ratio (0.9-2) Lyme Disease IgG Ab (Negative) Lyme Disease IgM Ab (Negative) 10/29/20 10/29/20 10/29/20 Range/Units 19:36 19:30 19:30 WBC (4.8-10.8) K/uL RBC (4.2-5.4) M/uL Hgb (12.0-16.0) g/dL Hct (37-47) % MCV (80-100) fL MCH (25-34) pg MCHC (32-36) g/dL RDW Std Deviation (36.4-46.3) fL RDW Coeff of Vernon (11.5-14.5) % Plt Count (130-400) K/uL MPV (7.4-10.4) fL Sodium (136-145) mmol/L Potassium (3.5-5.1) mmol/L Chloride (98-107) mmol/L Carbon Dioxide (21-32) mmol/L Anion Gap (3-11) BUN (7-18) mg/dl Creatinine (0.6-1.2) mg/dl Est Cr Clr Drug Dosing ml/min Est GFR ( Amer) Est GFR (Non-Af Amer) BUN/Creatinine Ratio (10-20) Glucose (70-99) mg/dl POC Glucose (70-99) mg/dl Calcium (8.5-10.1) mg/dl Total Bilirubin (0.2-1) mg/dl AST (15-37) U/L ALT (12-78) U/L Alkaline Phosphatase (45-117) U/L Ammonia 31.7 (11-32) umol/L Total Creatine Kinase 19 L (26-192) U/L Total Protein (6.4-8.2) gm/dl Albumin (3.4-5.0) gm/dl Globulin (2.5-4.0) gm/dl Albumin/Globulin Ratio (0.9-2) Lyme Disease IgG Ab Negative (Negative) Lyme Disease IgM Ab Negative (Negative) 10/29/20 Range/Units 17:08 WBC (4.8-10.8) K/uL RBC (4.2-5.4) M/uL Hgb (12.0-16.0) g/dL Hct (37-47) % MCV (80-100) fL MCH (25-34) pg MCHC (32-36) g/dL RDW Std Deviation (36.4-46.3) fL RDW Coeff of Vernon (11.5-14.5) % Plt Count (130-400) K/uL MPV (7.4-10.4) fL Sodium (136-145) mmol/L Potassium (3.5-5.1) mmol/L Chloride (98-107) mmol/L Carbon Dioxide (21-32) mmol/L Anion Gap (3-11) BUN (7-18) mg/dl Creatinine (0.6-1.2) mg/dl Est Cr Clr Drug Dosing ml/min Est GFR ( Amer) Est GFR (Non-Af Amer) BUN/Creatinine Ratio (10-20) Glucose (70-99) mg/dl POC Glucose 194 H (70-99) mg/dl Calcium (8.5-10.1) mg/dl Total Bilirubin (0.2-1) mg/dl AST (15-37) U/L ALT (12-78) U/L Alkaline Phosphatase (45-117) U/L Ammonia (11-32) umol/L Total Creatine Kinase (26-192) U/L Total Protein (6.4-8.2) gm/dl Albumin (3.4-5.0) gm/dl Globulin (2.5-4.0) gm/dl Albumin/Globulin Ratio (0.9-2) Lyme Disease IgG Ab (Negative) Lyme Disease IgM Ab (Negative) PG Care Time/CCT Total # of Minutes Spent Total Time Spent with Patient: Total time spent is greater than 50% in coordination of care (as documented) at patient's floor/unit and/or counseling patient: Coding Level of Care Code 81108 Subseq Hosp Care Lvl 2 Diagnoses Fatigue R53.83 Abdominal pain R10.9 Iron deficiency anemia D50.9 Anxiety and depression F41.9; F32.9 Schizoaffective disorder F25.9 Diabetes E11.9 Irritable bowel syndrome K58.9 Hypokalemia E87.6 Microcytic anemia D50.9 Hypomagnesemia E83.42 Failure to thrive R62.7 Failure to thrive age range: in adult History of pulmonary embolism Z86.711 Tinea unguium B35.1 (1) Failure to thrive Failure to thrive age range: in adult Qualified Code(s): R62.7 - Adult pete lure to thrive
[2020-10-30] MEDS: SODIUM CHLORIDE 0.9% 500 ML IV SCH ×2 (12:16→19:49)
[2020-10-30] MEDS ORDERED: IRON SUCROSE 200 MG in 0.9 % SODIUM CHLORIDE 100 ML IV ONE (16:00)
--- NOTE | 2020-10-30 20:54 | Ultrasound Report ---
ABDOMINAL ULTRASOUND, RIGHT UPPER QUADRANT HISTORY: Right upper quadrant pain. Nausea.. COMPARISON: None. FINDINGS: Pancreas: The visualized pancreas demonstrates a normal echotexture. Liver: The liver is echogenic consistent with fatty change. 20 cm in length. Gallbladder: The gallbladder is not identified. This could be surgically absent. Clinical correlation recommended. CBD: 1 cm in diameter. Right kidney: No hydronephrosis. IMPRESSION: 1. Hepatomegaly demonstrating fatty change. 2. The gallbladder was not identified. Therefore, this could be surgically absent. Clinical correlati on recommended. 3. The common bile duct measures up to 1 cm. This would be within the range of normal limits if the p atient is status post cholecystectomy. ACT 112: Negative or not required by law. Electronically signed by: Wilfredo Byers M.D. 10/30/2020 8:53 PM
[2020-10-30] MEDS: RIVAROXABAN 20 MG TAB PO SCH (22:06)
[2020-10-30] MEDS: QUEtiapine FUMARATE 200 MG TAB PO SCH (22:08)
[2020-10-31] MEDS: ACETAMINOPHEN 325 MG TAB PO PRN (03:00)
[2020-10-31] MEDS: ONDANSETRON INJ 2 MG/ML 2 ML VIAL IV PRN ×3 (03:37→19:56)
[2020-10-31] MEDS ORDERED: bisacodyL 5 MG TABEC PO ONE (09:30)
[2020-10-31] MEDS: LIDOCAINE 5% 1 PATCH TD SCH ×2 (09:30→19:20)
[2020-10-31] MEDS: THIAMINE HCL 100 MG TAB PO SCH (09:31)
[2020-10-31] MEDS: DOCUSATE SODIUM/SENNA 50/8.6MG TAB PO SCH (09:31)
[2020-10-31] MEDS: FUROSEMIDE 20 MG TAB PO SCH (09:31)
[2020-10-31] MEDS: PANTOprazole 40 MG TAB PO SCH (09:31)
[2020-10-31] MEDS: DIVALPROEX EXTENDED RELEASE 500 MG TAB PO SCH ×3 (09:32→20:42)
[2020-10-31] MEDS: busPIRone 15 MG TAB PO SCH ×3 (09:32→20:43)
[2020-10-31] MEDS: PANCREAZE (LIPASE 10,500U) CAP PO SCH ×3 (09:32→17:00)
[2020-10-31] MEDS: GABAPENTIN 100 MG CAP PO SCH ×3 (09:32→20:41)
[2020-10-31] MEDS: POLYETHYLENE (MIRALAX) 17 GM PACK PO SCH (09:33)
[2020-10-31] MEDS: ESCITALOPRAM OXALATE 10 MG TAB PO SCH (09:34)
[2020-10-31] MEDS: INSULIN ASPART 100 UNITS/ML 3 ML PEN SC SCH ×4 (09:36→20:45)
[2020-10-31] MEDS ORDERED: OPTIRAY 320 100ml IV ONE (09:49)
--- NOTE | 2020-10-31 10:16 | Hospitalist Progress Note ---
Date of Service October 31, 2020 Assessment & Plan (1) Fatigue: * Admitted for failure to thrive and was found by EMS without food in refrigerator. Has not been receiving medications. Previously w/ waiver care but not sure when this stopped. CM assisting. [facility] * Likely combination of dehydration, lack of access to food/medications, iron deficiency anemia * TSH 5.2H, likely reactive, T4 wnl 0.8 (low normal) - consider repeat in 3-4 weeks and initiate 25mcg levothyroxine daily if TFT abnormal * Depakote level wnl * Lyme negative * Procal negative * Ammonia 38.3 (order lactulose x 1 on 10/31), CK low Anemia -- iron deficiency * MCV 77 and iron studies added to labs -- Iron 20 LOW, transferrin 258 wnl, Transferrin % sat 5 LOW, ferritin 11.6 * -- ordered Venofer IV for 10/28 and will repeat 10/30 * H/h stable * Reports improvement of fatigue * PT/OT rec 24h care * CM assisting with placement at discharge -- patient is a target. Likely to remain inpatient through next week (2) Abdominal pain: * Reported nausea but no pain, more "crampy" but was tender to palpation RUQ with elevated alk phos. Tbili wnl. ?bilary colic in pt with obesity and likely fatty liver * Tbili wnl and no prior abd pain, however patient has not had BM for 2 days and received IV venofer 10/28. * Ordered US GB -- not seen * CTA/P with surgically absent GB * Patient reported resolution of abdominal pain today, 10/31 * Hold Questran, add bowel regimen * Monitor (3) Iron deficiency anemia: * See above under fatigue (4) Anxiety and depression: * Continue her routine mental health medication - see psych note for outpatient regimen -- adjustments made as below while inpatient * Quetiapine 400mg HS daily, escitalopram INCREASED to 20mg PO daily, buspirone 15mg PO TID, valproate 500mg PO TID (no Hx seizure disorder)--> will change to 1500mg HS tomorrow as on [employer] * Will reduce clonazepam dose due to concern for short term memory loss -- also added B1 level and will now start thiamine daily * Psych consulted as patient with brief period of hallucination "seeing butterflies" as well as patient without medication compliance due to access at home -- appreciate assistance * Req outpatient records and to arrange follow up care once we know which facility patient going to * Continue current regimen (5) Schizoaffective disorder: * as above (6) Diabetes: * HbA1C with AM labs -- 13.9 * Switch Basaglar 21 units daily to lantus 10 units BID * Novolog: * Goal BSG Range: Low 100 mg/dL, High 140 mg/dL * Correction Factor: 40 mg/dL/unit * INS:CHO Ratio: 1unit per 13 gms CHO consumed * BSGs ACHS if eating, q6h if npo * Pharmacy consulted for glycemic management -- had not been receiving her insulin [employer] * BSGs acceptable (7) Irritable bowel syndrome: * Continue her usual outpatient regimen with cholestyramine BID, pancreatic enzymes (?diagnosis of pancreatic insufficiency, no prior pancreatitis) and loperamide PRN. * *Hold cholestyramine as patient without BM (8) Hypokalemia: * Replaced in ER and with IV fluids -- likely secondary to PO intake [employer] * K 3.4 on AM labs and ordered 20meq PO * K continues to be stable, 4.1 * BMP in AM (9) Microcytic anemia: * See above (10) Hypomagnesemia: * Mag 1.5 -- ordered 3gm IV * Mag wnl on repeat (11) Failure to thrive: * PT/OT/discharge planning for likely need for placement -- rec 24h care * CM assisting (12) History of pulmonary embolism: * Continue Xarelto 20mg PO daily (13) Tinea unguium: L toe pain * Xray with diffuse soft tissue swelling, no bony destruction to suggest osteoarthritis * Podiatry consult -- seen today and had toenails debrided * --> will need outpatient follow up for podiatric care Hypercalcemia/Hyperparathyroidism -- unclear etiology Initially thought to be related to low Vit D, however Ca 9.3/Albumin 2.7, PTH elevated to 216.6 Nephrology consulted Monitor on AM labs Dispo; patient target with psychiatric illness -- CM following. Likely to remain inpatient until arrangements able to be made (14) Hyperparathyroidism: Admission and Anticipated Discharge Date Admission Date: October 28, 2020 Subjective Patient seen this morning. [place] sad this morning but she says that has improved. Improved energy today. Was able to get up to bathroom but did it by herself as she states she was waiting and no one came. States she ambulated to bathroom without a walker. (Uses wheelchair at home). Some nausea this morning but also resolved. States she feels she is not getting enough to eat. Drinking/eating without difficulty. Making ample urine per her account. Shortness of breath decreased. Denies tightness, chest pain, abdominal pain, diarrhea. She states "if I hold my questran I will have a BM". Main concern today is being able to smoke at [facility] at discharge. Discussed this may not be possible but will confer with CM about ability at various facilties. Review of Systems Review of Systems: All systems reviewed & are unremarkable except as noted in HPI & below Physical Exam Constitutional: well developed, well nourished and + morbidly obese; no acute distress Eyes: PERRL, conjunctivae normal, anicteric sclerae Neck: trachea midline, no thyromegaly Respiratory: normal respiratory effort, lungs clear to auscultation Auscultation: + diminished lung sounds; no rales and no wheezes Cardiovascular: Rate/Rhythm: regular rate and regular rhythm Heart Sounds: no murmur Vessels: no JVD Extremities: normal capillary refill; no calf tenderness Gastrointestinal (Abdomen): normal bowel sounds, soft, nontender, no hepatospl enomegaly Inspection/Auscultation: abdomen normal to inspection, normal bowel sounds and + significant pannus; abdomen not distended Percussion/Palpation: abdomen soft; no guarding and abdomen not rigid Musculoskeletal: Head/Neck/Chest: normocephalic and head atraumatic Skin: toenails with thickening/fungal appearance but have all been cut/debrided non-tender to palpation L great toe pain, - claw toe, tender to palpation. no open/draining ulcer appreciated NVI pulses palpable bilaterally, equal calves non-tender to palpation Neurologic: moves all extremities and awake; no focal motor deficits and not confused Speech / Cognition: normal speech Motor/Sensory: + tremor (essential); no pronator drift and no sensory deficit Cranial Nerves: normal facial strength Psychiatric: Orientation: alert, oriented to person, oriented to place and oriented to time Eye Contact: good eye contact Lymphatic: no cervical or axillary lymphadenopathy Results & Data Results & Data ([facility]) Vital Signs (Past 12 Hours) Vital Signs Temp Pulse Resp BP Pulse Ox 10/31/20 07:08 36.7 C 80 16 100/68 94 10/30/20 23:55 37.4 C 80 16 122/76 91 Laboratory Results 10/31/20 10/31/20 10/31/20 Range/Units 17:39 11:54 10:44 WBC (4.8-10.8) K/uL RBC (4.2-5.4) M/uL Hgb (12.0-16.0) g/dL Hct (37-47) % MCV (80-100) fL MCH (25-34) pg MCHC (32-36) g/dL RDW Std Deviation (36.4-46.3) fL RDW Coeff of [place] (11.5-14.5) % Plt Count (130-400) K/uL MPV (7.4-10.4) fL Immature Gran % (Auto) % Neut % (Auto) % Lymph % (Auto) % [place] % (Auto) % Eos % (Auto) % Baso % (Auto) % Neut # (Auto) (1.4-6.5) K/uL Lymph # (Auto) (1.2-3.4) K/uL [place] # (Auto) (0.11-0.59) K/uL Eos # (Auto) (0-0.5) K/uL Baso # (Auto) (0-0.2) K/uL Immature Gran # (Auto) (0.00-0.02) K/uL Sodium (136-145) mmol/L Potassium (3.5-5.1) mmol/L Chloride (98-107) mmol/L Carbon Dioxide (21-32) mmol/L Anion Gap (3-11) BUN (7-18) mg/dl Creatinine (0.6-1.2) mg/dl Est Cr Clr Drug Dosing ml/min Est GFR ( Amer) Est GFR (Non-Af Amer) BUN/Creatinine Ratio (10-20) Glucose (70-99) mg/dl POC Glucose 162 H 144 H (70-99) mg/dl Calcium (8.5-10.1) mg/dl Total Bilirubin (0.2-1) mg/dl Direct Bilirubin (0-0.2) mg/dl AST (15-37) U/L ALT (12-78) U/L Alkaline Phosphatase (45-117) U/L Ammonia (11-32) umol/L Total Protein (6.4-8.2) gm/dl Albumin (3.4-5.0) gm/dl 25-OH Vitamin D Total 6.8 L (30-100) ng/ml PTH Intact (18.4-80.1) pg/ml 10/31/20 10/31/20 10/31/20 Range/Units 10:44 10:43 10:43 WBC (4.8-10.8) K/uL RBC (4.2-5.4) M/uL Hgb (12.0-16.0) g/dL Hct (37-47) % MCV (80-100) fL MCH (25-34) pg MCHC (32-36) g/dL RDW Std Deviation (36.4-46.3) fL RDW Coeff of [place] (11.5-14.5) % Plt Count (130-400) K/uL MPV (7.4-10.4) fL Immature Gran % (Auto) % Neut % (Auto) % Lymph % (Auto) % [place] % (Auto) % Eos % (Auto) % Baso % (Auto) % Neut # (Auto) (1.4-6.5) K/uL Lymph # (Auto) (1.2-3.4) K/uL [place] # (Auto) (0.11-0.59) K/uL Eos # (Auto) (0-0.5) K/uL Baso # (Auto) (0-0.2) K/uL Immature Gran # (Auto) (0.00-0.02) K/uL Sodium 139 (136-145) mmol/L Potassium 4.0 (3.5-5.1) mmol/L Chloride 106 (98-107) mmol/L Carbon Dioxide 29 (21-32) mmol/L Anion Gap 4.0 (3-11) BUN 4 L (7-18) mg/dl Creatinine 0.72 (0.6-1.2) mg/dl Est Cr Clr Drug Dosing 92.1 ml/min Est GFR ( Amer) 103.3 Est GFR (Non-Af Amer) 89.1 BUN/Creatinine Ratio 5.7 L (10-20) Glucose 163 H (70-99) mg/dl POC Glucose (70-99) mg/dl Calcium 9.3 (8.5-10.1) mg/dl Total Bilirubin 0.2 (0.2-1) mg/dl Direct Bilirubin < 0.1 (0-0.2) mg/dl AST 10 L (15-37) U/L ALT 7 L (12-78) U/L Alkaline Phosphatase 189 H (45-117) U/L Ammonia 38.3 H (11-32) umol/L Total Protein 6.5 (6.4-8.2) gm/dl Albumin 2.7 L (3.4-5.0) gm/dl 25-OH Vitamin D Total (30-100) ng/ml PTH Intact 216.6 H (18.4-80.1) pg/ml 10/31/20 10/31/20 10/30/20 Range/Units 10:43 08:28 20:31 WBC 3.99 L (4.8-10.8) K/uL RBC 4.74 (4.2-5.4) M/uL Hgb 11.1 L (12.0-16.0) g/dL Hct 37.1 (37-47) % MCV 78.3 L (80-100) fL MCH 23.4 L (25-34) pg MCHC 29.9 L (32-36) g/dL RDW Std Deviation 48.0 H (36.4-46.3) fL RDW Coeff of [place] 17.2 H (11.5-14.5) % Plt Count 207 (130-400) K/uL MPV 9.5 (7.4-10.4) fL Immature Gran % (Auto) 0.5 % Neut % (Auto) 24.9 % Lymph % (Auto) 65.2 % [place] % (Auto) 7.3 % Eos % (Auto) 1.8 % Baso % (Auto) 0.3 % Neut # (Auto) 1.00 L (1.4-6.5) K/uL Lymph # (Auto) 2.60 (1.2-3.4) K/uL [place] # (Auto) 0.29 (0.11-0.59) K/uL Eos # (Auto) 0.07 (0-0.5) K/uL Baso # (Auto) 0.01 (0-0.2) K/uL Immature Gran # (Auto) 0.02 (0.00-0.02) K/uL Sodium (136-145) mmol/L Potassium (3.5-5.1) mmol/L Chloride (98-107) mmol/L Carbon Dioxide (21-32) mmol/L Anion Gap (3-11) BUN (7-18) mg/dl Creatinine (0.6-1.2) mg/dl Est Cr Clr Drug Dosing ml/min Est GFR ( Amer) Est GFR (Non-Af Amer) BUN/Creatinine Ratio (10-20) Glucose (70-99) mg/dl POC Glucose 111 H 117 H (70-99) mg/dl Calcium (8.5-10.1) mg/dl Total Bilirubin (0.2-1) mg/dl Direct Bilirubin (0-0.2) mg/dl AST (15-37) U/L ALT (12-78) U/L Alkaline Phosphatase (45-117) U/L Ammonia (11-32) umol/L Total Protein (6.4-8.2) gm/dl Albumin (3.4-5.0) gm/dl 25-OH Vitamin D Total (30-100) ng/ml PTH Intact (18.4-80.1) pg/ml PG Care Time/CCT Total # of Minutes Spent Total Time Spent with Patient: Total time spent is greater than 50% in coordination of care (as documented) at patient's floor/unit and/or counseling patient: Coding Level of Care Code 02512 Subseq Hosp Care Lvl 2 Diagnoses Fatigue R53.83 Abdominal pain R10.9 Iron deficiency anemia D50.9 Anxiety and depression F41.9; F32.9 Schizoaffective disorder F25.9 Diabetes E11.9 Irritable bowel syndrome K58.9 Hypokalemia E87.6 Microcytic anemia D50.9 Hypomagnesemia E83.42 Failure to thrive R62.7 Failure to thrive age range: in adult History of pulmonary embolism Z86.711 Tinea unguium B35.1 Hyperparathyroidism E21.3 (1) Failure to thrive Failure to thrive age range: in adult Qualified Code(s): R62.7 - Adult failure to thrive
[2020-10-31] MEDS: CHOLESTYRAMINE LIGHT 4 GM PKT PO SCH ×2 (10:19)
--- NOTE | 2020-10-31 10:20 | CT Scan Report ---
CT abdomen w IV con CLINICAL HISTORY: abd pain, absent GB on US, elevated alk phos COMPARISON STUDY: Cell study dated 10/30/2020 FINDINGS: The patient was scanned in a dynamic helical fashion during intravenous administration of 94 cc of Op tiray 320. A dose reduction technique was utilized according to the principles of ALARA. The lung bases are unremarkable in appearance. No focal hepatic masses are visualized. The portal and hepatic veins are patent. There is no ductal d ilatation. The gallbladder is surgically absent. No splenic lesions are visualized. No pancreatic masses are visualized. Neither adrenal gland is pathologically enlarged. There are no solid renal masses. There is a 9 mm left renal cyst. There is no hydronephrosis. There is no evidence of abdominal aortic aneurysm. There is no pathologic upper abdominal lymphadenopathy. There is no pathologic upper abdominal bowel dilatation. IMPRESSION: 1. No acute intra-abdominal findings 2. Surgically absent gallbladder 3. No hepatic masses identified. No evidence of ductal dilatation. ACT 112: Negative or not required by law. Electronically signed by: Angel Ramos M.D. 10/31/2020 10:19 AM
--- NOTE | 2020-10-31 10:38 | Pharmacy Report ---
Pharmacy Glycemic Short Note 2 - Date of Service October 31, 2020 - Glycemic Short BSG Results (Last 24 hours): 10/30/20 10/30/20 10/30/20 10:17 12:20 17:05 Glucose 185 H POC Glucose 163 H 143 H 10/30/20 10/31/20 20:31 08:28 Glucose POC Glucose 117 H 111 H OUTPATIENT ANTIDIABETIC REGIMEN: * Basaglar 21 units SC HS * Novolog SC TIDM * HbA1c: 13.9% (10/28/20) * Patient reports that her helper who provides groceries and medications has not been by recently - it has been several days since she has taken any insulin ASSESSMENT: 10/31: * Patient is currently receiving 54 units of insulin per day * 40 units of basal insulin * 14 units of prandial/correctional insulin * BSGs ranging 112 - 185 mg/dl over the past 24hrs * AM Fasting BSG = is in goal range at 111 mg/dl; no changes needed to basal insulin * Total daily dose = is weighted towards basal insulin. May need to evenly re-distribute regimen 50%:50% basal:prandial to prevent hypo/hyperglycemia * Will continue current orders and titrate based on BSG trends. R * AP is a 65 year old female admitted on 10/27/20 for failure to thrive and expected need for rehab placement * Patient is very poor historian and has not been taking her medications for at least several days * Pharmacy consulted around lunchtime on 10/28 due to persistent hyperglycemia during this hospitalization * BSGs so far this admission of 234, 227, 193 (fasting), and 275 mg/dL * Prior to consult, patient was ordered Lantus 10 units SC BID and Novolog ACHS (correction factor of 40, carb ratio of 13) * Patient received 10 units of Lantus this morning - will give one-time 25 unit dose this afternoon to approximately equal weight-based (adjusted body weight) stress of 3 dosing * Will also tighten Novolog parameters considerably PLAN FOR INPATIENT GLYCEMIC CONTROL: * Hold outpatient oral diabetes medications * Basal insulin * Lantus 20 units SQ BID * Bolus insulin * NovoLog per scale ACHS or Q6hrs while NPO * Goal Range: Low 110 mg/dL - High 140 mg/dL * Correction Factor: 20 mg/dL/unit * Nutritional / Prandial insulin per carb ratio of 1 unit per 7 grams CHO consumed
[2020-10-31 10:56] LABS: Hematocrit (blood only) 37.1 % (37-47); Hemoglobin 11.1 g/dL (12.0-16.0); Mean Corpuscular Hemoglobin 23.4 pg (25-34); Mean Corpuscular Hgb Conc 29.9 g/dL (32-36); Mean Corpuscular Volume 78.3 fL (80-100); Mean Platelet Volume 9.5 fL (7.4-10.4); Platelet Count 207 K/uL (130-400); RDW Coefficient of Variation 17.2 % (11.5-14.5); Red Blood Count 4.74 M/uL (4.2-5.4); White Blood Count 3.99 K/uL (4.8-10.8)
[2020-10-31 11:23] LABS: Alanine Aminotransferase 7 U/L (12-78); Albumin Level 2.7 gm/dl (3.4-5.0); Aspartate Aminotransferase 10 U/L (15-37); BUN Creatinine Ratio 5.7 (10-20); Blood Urea Nitrogen 4 mg/dl (7-18); Calcium 9.3 mg/dl (8.5-10.1); Carbon Dioxide 29 mmol/L (21-32); Chloride 106 mmol/L (98-107); Creatinine Clr Calc Pharmacy 92.1 ml/min; Est GFR (African American) 103.3; Est GFR (Non-African American) 89.1; Glucose 163 mg/dl (70-99); Sodium 139 mmol/L (136-145)
[2020-10-31 11:25] LABS: Alkaline Phosphatase 189 U/L (45-117); Bilirubin Direct < 0.1 mg/dl (0-0.2); Bilirubin,Total 0.2 mg/dl (0.2-1); Total Protein 6.5 gm/dl (6.4-8.2)
[2020-10-31] MEDS: INSULIN GLARGINE SOLOSTAR 100 UNITS/ML 3 ML PEN SC SCH ×2 (11:36→20:46)
[2020-10-31 12:17] LABS: Basophils # (auto) 0.01 K/uL (0-0.2); Basophils % (auto) 0.3 %; Eosinophils # (auto) 0.07 K/uL (0-0.5); Eosinophils % (auto) 1.8 %; Immature Granulocytes # (auto) 0.02 K/uL (0.00-0.02); Immature Granulocytes % (auto) 0.5 %; Lymphocytes % (auto) 65.2 %; Monocytes # (auto) 0.29 K/uL (0.11-0.59); Monocytes % (auto) 7.3 %; Neutrophils % (auto) 24.9 %
--- NOTE | 2020-10-31 13:33 | Communication Note ---
Date of Service: October 31, 2020 Received psychiatric medication list from [facility]: - Quetiapine 400mg - 1 tab qHS - last filled #30 tabs x2 on 09/10/2020 - Divalproex Sodium ER 500mg - 3 tabs qHS - last filled #90 tabs x2 on 09/10/2020 - Clonazepam 0.5mg - 1 tab BID; 1/2 tab prn - last filled #70 tabs x2 on 09/10/2020 - Buspirone 15mg - 1 tab TID - last filled #90 tabs x2 on 06/21/2020 - Gabapentin 100mg - 1 cap PO BID + 2 cap at HS - last filled #120 caps x2 on 09/13/2020 - Escitalopram 20mg - 1 tab daily - last filled #30 tabs x2 on 06/21/2020 Based on this medication record: - Divalproex could be consolidated to 1500mg at HS per medication list. Agree with previous decision to reduce clonazepam dosing given confusion and reports of memory loss, obviously watching for signs of benzodiazepine withdrawal. If concern for low mood, could certainly titrate escitalopram back to reported dose of 20mg daily. Notes indicate patient seems to be improving with regard to confusion and energy level. Case management continues to explore possible placement options at patient's request. - It is reported patient will be a [facility] due to mental health history. Based on psychiatric consultation, it did seem that she was psychiatrically appropriate for transfer to a [facility] when considered cleared from a medical perspective. Please reach out to our service with any additional questions or updates.
[2020-10-31] MEDS: clonazePAM 0.25 MG TAB PO PRN (15:27)
[2020-10-31] MEDS ORDERED: LACTULOSE SYRUP 20 GM/30 ML UDC PO ONE (15:45)
[2020-10-31] MEDS: traMADol HCL 50 MG TABLET PO PRN (16:10)
[2020-10-31] MEDS: QUEtiapine FUMARATE 200 MG TAB PO SCH (20:42)
[2020-10-31] MEDS: RIVAROXABAN 20 MG TAB PO SCH (20:43)
[2020-11-01 06:11] LABS: Hematocrit (blood only) 35.9 % (37-47); Hemoglobin 10.4 g/dL (12.0-16.0); Mean Corpuscular Hemoglobin 22.9 pg (25-34); Mean Corpuscular Volume 79.1 fL (80-100); Mean Platelet Volume 9.4 fL (7.4-10.4); Platelet Count 210 K/uL (130-400); RDW Coefficient of Variation 17.1 % (11.5-14.5); RDW Standard Deviation 48.4 fL (36.4-46.3); Red Blood Count 4.54 M/uL (4.2-5.4); White Blood Count 5.89 K/uL (4.8-10.8)
[2020-11-01 06:19] LABS: Albumin Level 2.6 gm/dl (3.4-5.0); BUN Creatinine Ratio 8.2 (10-20); Creatinine Clr Calc Pharmacy 89.6 ml/min; Est GFR (African American) 99.9; Est GFR (Non-African American) 86.2; Potassium 3.8 mmol/L (3.5-5.1)
[2020-11-01 06:22] LABS: Albumin Globulin Ratio 0.7 (0.9-2); Bilirubin,Total 0.2 mg/dl (0.2-1); Globulin 3.6 gm/dl (2.5-4.0); Total Protein 6.2 gm/dl (6.4-8.2)
[2020-11-01 06:30] LABS: Basophils # (auto) 0.01 K/uL (0-0.2); Basophils % (auto) 0.2 %; Eosinophils # (auto) 0.11 K/uL (0-0.5); Eosinophils % (auto) 1.9 %; Immature Granulocytes # (auto) 0.04 K/uL (0.00-0.02); Immature Granulocytes % (auto) 0.7 %; Lymphocytes # (auto) 4.03 K/uL (1.2-3.4); Lymphocytes % (auto) 68.4 %; Monocytes # (auto) 0.53 K/uL (0.11-0.59); Neutrophils # (auto) 1.17 K/uL (1.4-6.5); Neutrophils % (auto) 19.8 %
--- NOTE | 2020-11-01 09:07 | Hospitalist Progress Note ---
Date of Service November 01, 2020 Assessment & Plan (1) Fatigue: IMPROVING * Admitted for failure to thrive and was found by EMS without food in refrigerator. Has not been receiving medications. Previously w/ waiver care but not sure when this stopped. CM assisting. Recently moved to [facility] * Likely combination of dehydration, lack of access to food/medications, iron deficiency anemia * TSH 5.2H, likely reactive, T4 wnl 0.8 (low normal) - consider repeat in 3-4 weeks and initiate 25mcg levothyroxine daily if TFT abnormal * Depakote level wnl * Lyme negative * Procal negative * Ammonia 38.3 (order lactulose x 1 on 10/31), CK low * B1 level <6 -- already started on thiamine but will increase to BID to be continued at discharge Anemia -- iron deficiency * MCV 77 and iron studies added to labs -- Iron 20 LOW, transferrin 258 wnl, Transferrin % sat 5 LOW, ferritin 11.6 * -- ordered Venofer IV for 10/28 and repeat doses given 10/30 and 11/01 * H/h stable * PT/OT rec 24h care * CM assisting with placement at discharge-- [facility] when they are able to accept (roommate with fever and they need to make arrangements prior to taking patient) (2) Abdominal pain: RESOLVED * Reported nausea but no pain, more "crampy" but was tender to palpation RUQ with elevated alk phos. Tbili wnl. ?bilary colic in pt with obesity and likely fatty live. Also has hypercalcemia -- discussed wtih Dr Gloria and will continue current plan and have outpt f/u for Vit D challenge. Would not give any while inpatient. Low Vit D, elevated PTH and calcium acceptable currently * Tbili wnl and no prior abd pain, however patient has not had BM for 2 days and received IV venofer 10/28. * Ordered US GB -- not seen * CTA/P with surgically absent GB * Hold Questran, add bowel regimen --> had bowel movement yesterday 10/31 * Monitor (3) Iron deficiency anemia: * See above under fatigue (4) Anxiety and depression: * Continue her routine mental health medication - see psych note for outpatient regimen -- adjustments made as below while inpatient * Quetiapine 400mg HS daily, escitalopram INCREASED to 20mg PO daily, buspirone 15mg PO TID, valproate 500mg PO TID (no Hx seizure disorder)--> will change to 1500mg HS tomorrow as on [employer] * Psych consulted as patient with brief period of hallucination "seeing butterflies" as well as patient without medication compliance due to access at home -- appreciate assistance * Req outpatient records and to arrange follow up care once we know which facility patient going to * Continue current regimen (5) Schizoaffective disorder: * as above (6) Diabetes: * HbA1C with AM labs -- 13.9 * Switch Basaglar 21 units daily to lantus 10 units BID * Novolog: * Goal BSG Range: Low 100 mg/dL, High 140 mg/dL * Correction Factor: 40 mg/dL/unit * INS:CHO Ratio: 1unit per 13 gms CHO consumed * BSGs ACHS if eating, q6h if npo * Pharmacy consulted for glycemic management -- 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 Need to increase insulin and add Metformin 500mg XR at discharge (changes already made on d/c instructions) * BSGs acceptable (7) Irritable bowel syndrome: * Continue her usual outpatient regimen with cholestyramine BID, pancreatic enzymes (?diagnosis of pancreatic insufficiency, no prior pancreatitis) and loperamide PRN. 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 * K continues to be stable * BMP in AM (9) Microcytic anemia: * See above (10) Hypomagnesemia: * Mag 1.5 -- ordered 3gm IV * Mag wnl on repeat (11) Failure to thrive: * PT/OT/discharge planning for likely need for placement -- rec 24h care * CM assisting (12) History of pulmonary embolism: * Continue Xarelto 20mg PO daily (13) Tinea unguium: L toe pain * Xray with diffuse soft tissue swelling, no bony destruction to suggest osteoarthritis * Podiatry consult -- seen today and had toenails debrided * --> will need outpatient follow up for podiatric care Hypercalcemia/Hyperparathyroidism -- unclear etiology Initially thought to be related to low Vit D, however Ca 9.3/Albumin 2.7, PTH elevated to 216.6. Nephrology consulted -- to have outpatient follow up. Agrees with current plan. Monitor on AM labs Dispo; [facility] when they are able to take (14) Hyperparathyroidism: Admission and Anticipated Discharge Date Admission Date: October 28, 2020 Subjective Patient evaluated this morning. Discussed low thiamine level and will continue with additional venofer for today. Eating/drinking without difficulty. Moved her bowels yesterday. Accepted to [facility] and planned for d/c this afternoon. No fever, chills, chest pain, shortness of breath, abdominal pain, nausea or vomiting. She states she has been walking with walker more and has improved strength. Per CM this afternoon, roommate at [facility] now with fever and they will need to re-arrange rooms and plans to take patient on wednesday instead now. Review of Systems 2 Review of Systems: All systems reviewed & are unremarkable except as noted in HPI & below Physical Exam Physical Exam: Constitutional well developed, well nourished and + morbidly obese; no acute distress Eyes PERRL, conjunctivae normal, anicteric sclerae Neck trachea midline, no thyromegaly Respiratory normal respiratory effort, lungs clear to auscultation Cardiovascular Rate/Rhythm: regular rate and regular rhythm Heart Sounds: no murmur Vessels: no JVD Extremities: normal capillary refill; no calf tenderness Gastrointestinal (Abdomen) normal bowel sounds, soft, nontender, no hepatosplenomegaly Inspection/Auscultation: abdomen normal to inspection, normal bowel sounds and + significant pannus; abdomen not distended Percussion/Palpation: abdomen soft; no guarding and abdomen not rigid Musculoskeletal Head/Neck/Chest: normocephalic and head atraumatic Skin toenails with thickening/fungal appearance but have all been cut/debrided non-tender to palpation NVI pulses palpable bilaterally, equal calves non-tender to palpation Neurologic moves all extremities and awake; no focal motor deficits and not confused Speech / Cognition: normal speech Motor/Sensory: + tremor (essential); no pronator drift and no sensory deficit Cranial Nerves: normal facial strength Psychiatric Orientation: alert, oriented to person, oriented to place and oriented to time Eye Contact: good eye contact Lymphatic no cervical or axillary lymphadenopathy Results & Data Results & Data ([facility]) Vital Signs (Past 12 Hours) Vital Signs Temp Pulse Resp BP Pulse Ox 11/01/20 07:19 36.9 C 74 15 115/71 91 12/17/20 23:58 36.7 C 85 19 124/80 96 Laboratory Results 11/01/20 11/01/20 11/01/20 Range/Units 08:00 05:38 05:38 WBC 5.89 (4.8-10.8) K/uL RBC 4.54 (4.2-5.4) M/uL Hgb 10.4 L (12.0-16.0) g/dL Hct 35.9 L (37-47) % MCV 79.1 L (80-100) fL MCH 22.9 L (25-34) pg MCHC 29.0 L (32-36) g/dL RDW Std Deviation 48.4 H (36.4-46.3) fL RDW Coeff of [place] 17.1 H (11.5-14.5) % Plt Count 210 (130-400) K/uL MPV 9.4 (7.4-10.4) fL Immature Gran % (Auto) 0.7 % Neut % (Auto) 19.8 % Lymph % (Auto) 68.4 % [place] % (Auto) 9.0 % Eos % (Auto) 1.9 % Baso % (Auto) 0.2 % Neut # (Auto) 1.17 L (1.4-6.5) K/uL Lymph # (Auto) 4.03 H (1.2-3.4) K/uL [place] # (Auto) 0.53 (0.11-0.59) K/uL Eos # (Auto) 0.11 (0-0.5) K/uL Baso # (Auto) 0.01 (0-0.2) K/uL Immature Gran # (Auto) 0.04 H (0.00-0.02) K/uL Sodium 142 (136-145) mmol/L Potassium 3.8 (3.5-5.1) mmol/L Chloride 107 (98-107) mmol/L Carbon Dioxide 31 (21-32) mmol/L Anion Gap 5.0 (3-11) BUN 6 L (7-18) mg/dl Creatinine 0.74 (0.6-1.2) mg/dl Est Cr Clr Drug Dosing 89.6 ml/min Est GFR ( Amer) 99.9 Est GFR (Non-Af Amer) 86.2 BUN/Creatinine Ratio 8.2 L (10-20) Glucose 131 H (70-99) mg/dl POC Glucose 132 H (70-99) mg/dl Lactate (0.4-2.0) mmol/L Calcium 9.0 (8.5-10.1) mg/dl Total Bilirubin 0.2 (0.2-1) mg/dl Direct Bilirubin (0-0.2) mg/dl AST 8 L (15-37) U/L ALT 7 L (12-78) U/L Alkaline Phosphatase 161 H (45-117) U/L Ammonia (11-32) umol/L Total Protein 6.2 L (6.4-8.2) gm/dl Albumin 2.6 L (3.4-5.0) gm/dl Globulin 3.6 (2.5-4.0) gm/dl Albumin/Globulin Ratio 0.7 L (0.9-2) Vitamin B1 (8-30) nmol/L 25-OH Vitamin D Total (30-100) ng/ml PTH Intact (18.4-80.1) pg/ml Stool Occult Bld Scrn (Negative) 10/31/20 10/31/20 10/31/20 Range/Units 20:30 19:52 19:00 WBC (4.8-10.8) K/uL RBC (4.2-5.4) M/uL Hgb (12.0-16.0) g/dL Hct (37-47) % MCV (80-100) fL MCH (25-34) pg MCHC (32-36) g/dL RDW Std Deviation (36.4-46.3) fL RDW Coeff of [place] (11.5-14.5) % Plt Count (130-400) K/uL MPV (7.4-10.4) fL Immature Gran % (Auto) % Neut % (Auto) % Lymph % (Auto) % [place] % (Auto) % Eos % (Auto) % Baso % (Auto) % Neut # (Auto) (1.4-6.5) K/uL Lymph # (Auto) (1.2-3.4) K/uL [place] # (Auto) (0.11-0.59) K/uL Eos # (Auto) (0-0.5) K/uL Baso # (Auto) (0-0.2) K/uL Immature Gran # (Auto) (0.00-0.02) K/uL Sodium (136-145) mmol/L Potassium (3.5-5.1) mmol/L Chloride (98-107) mmol/L Carbon Dioxide (21-32) mmol/L Anion Gap (3-11) BUN (7-18) mg/dl Creatinine (0.6-1.2) mg/dl Est Cr Clr Drug Dosing ml/min Est GFR ( Amer) Est GFR (Non-Af Amer) BUN/Creatinine Ratio (10-20) Glucose (70-99) mg/dl POC Glucose 171 H (70-99) mg/dl Lactate 1.8 (0.4-2.0) mmol/L Calcium (8.5-10.1) mg/dl Total Bilirubin (0.2-1) mg/dl Direct Bilirubin (0-0.2) mg/dl AST (15-37) U/L ALT (12-78) U/L Alkaline Phosphatase (45-117) U/L Ammonia (11-32) umol/L Total Protein (6.4-8.2) gm/dl Albumin (3.4-5.0) gm/dl Globulin (2.5-4.0) gm/dl Albumin/Globulin Ratio (0.9-2) Vitamin B1 (8-30) nmol/L 25-OH Vitamin D Total (30-100) ng/ml PTH Intact (18.4-80.1) pg/ml Stool Occult Bld Scrn Negative (Negative) 10/31/20 10/31/20 10/31/20 Range/Units 17:39 11:54 10:44 WBC (4.8-10.8) K/uL RBC (4.2-5.4) M/uL Hgb (12.0-16.0) g/dL Hct (37-47) % MCV (80-100) fL MCH (25-34) pg MCHC (32-36) g/dL RDW Std Deviation (36.4-46.3) fL RDW Coeff of [place] (11.5-14.5) % Plt Count (130-400) K/uL MPV (7.4-10.4) fL Immature Gran % (Auto) % Neut % (Auto) % Lymph % (Auto) % [place] % (Auto) % Eos % (Auto) % Baso % (Auto) % Neut # (Auto) (1.4-6.5) K/uL Lymph # (Auto) (1.2-3.4) K/uL [place] # (Auto) (0.11-0.59) K/uL Eos # (Auto) (0-0.5) K/uL Baso # (Auto) (0-0.2) K/uL Immature Gran # (Auto) (0.00-0.02) K/uL Sodium (136-145) mmol/L Potassium (3.5-5.1) mmol/L Chloride (98-107) mmol/L Carbon Dioxide (21-32) mmol/L Anion Gap (3-11) BUN (7-18) mg/dl Creatinine (0.6-1.2) mg/dl Est Cr Clr Drug Dosing ml/min Est GFR ( Amer) Est GFR (Non-Af Amer) BUN/Creatinine Ratio (10-20) Glucose (70-99) mg/dl POC Glucose 162 H 144 H (70-99) mg/dl Lactate (0.4-2.0) mmol/L Calcium (8.5-10.1) mg/dl Total Bilirubin (0.2-1) mg/dl Direct Bilirubin (0-0.2) mg/dl AST (15-37) U/L ALT (12-78) U/L Alkaline Phosphatase (45-117) U/L Ammonia (11-32) umol/L Total Protein (6.4-8.2) gm/dl Albumin (3.4-5.0) gm/dl Globulin (2.5-4.0) gm/dl Albumin/Globulin Ratio (0.9-2) Vitamin B1 (8-30) nmol/L 25-OH Vitamin D Total 6.8 L (30-100) ng/ml PTH Intact (18.4-80.1) pg/ml Stool Occult Bld Scrn (Negative) 10/31/20 10/31/20 10/31/20 Range/Units 10:44 10:43 10:43 WBC (4.8-10.8) K/uL RBC (4.2-5.4) M/uL Hgb (12.0-16.0) g/dL Hct (37-47) % MCV (80-100) fL MCH (25-34) pg MCHC (32-36) g/dL RDW Std Deviation (36.4-46.3) fL RDW Coeff of [place] (11.5-14.5) % Plt Count (130-400) K/uL MPV (7.4-10.4) fL Immature Gran % (Auto) % Neut % (Auto) % Lymph % (Auto) % [place] % (Auto) % Eos % (Auto) % Baso % (Auto) % Neut # (Auto) (1.4-6.5) K/uL Lymph # (Auto) (1.2-3.4) K/uL [place] # (Auto) (0.11-0.59) K/uL Eos # (Auto) (0-0.5) K/uL Baso # (Auto) (0-0.2) K/uL Immature Gran # (Auto) (0.00-0.02) K/uL Sodium 139 (136-145) mmol/L Potassium 4.0 (3.5-5.1) mmol/L Chloride 106 (98-107) mmol/L Carbon Dioxide 29 (21-32) mmol/L Anion Gap 4.0 (3-11) BUN 4 L (7-18) mg/dl Creatinine 0.72 (0.6-1.2) mg/dl Est Cr Clr Drug Dosing 92.1 ml/min Est GFR ( Amer) 103.3 Est GFR (Non-Af Amer) 89.1 BUN/Creatinine Ratio 5.7 L (10-20) Glucose 163 H (70-99) mg/dl POC Glucose (70-99) mg/dl Lactate (0.4-2.0) mmol/L Calcium 9.3 (8.5-10.1) mg/dl Total Bilirubin 0.2 (0.2-1) mg/dl Direct Bilirubin < 0.1 (0-0.2) mg/dl AST 10 L (15-37) U/L ALT 7 L (12-78) U/L Alkaline Phosphatase 189 H (45-117) U/L Ammonia 38.3 H (11-32) umol/L Total Protein 6.5 (6.4-8.2) gm/dl Albumin 2.7 L (3.4-5.0) gm/dl Globulin (2.5-4.0) gm/dl Albumin/Globulin Ratio (0.9-2) Vitamin B1 (8-30) nmol/L 25-OH Vitamin D Total (30-100) ng/ml PTH Intact 216.6 H (18.4-80.1) pg/ml Stool Occult Bld Scrn (Negative) 10/31/20 10/28/20 Range/Units 10:43 10:59 WBC 3.99 L (4.8-10.8) K/uL RBC 4.74 (4.2-5.4) M/uL Hgb 11.1 L (12.0-16.0) g/dL Hct 37.1 (37-47) % MCV 78.3 L (80-100) fL MCH 23.4 L (25-34) pg MCHC 29.9 L (32-36) g/dL RDW Std Deviation 48.0 H (36.4-46.3) fL RDW Coeff of [place] 17.2 H (11.5-14.5) % Plt Count 207 (130-400) K/uL MPV 9.5 (7.4-10.4) fL Immature Gran % (Auto) 0.5 % Neut % (Auto) 24.9 % Lymph % (Auto) 65.2 % [place] % (Auto) 7.3 % Eos % (Auto) 1.8 % Baso % (Auto) 0.3 % Neut # (Auto) 1.00 L (1.4-6.5) K/uL Lymph # (Auto) 2.60 (1.2-3.4) K/uL [place] # (Auto) 0.29 (0.11-0.59) K/uL Eos # (Auto) 0.07 (0-0.5) K/uL Baso # (Auto) 0.01 (0-0.2) K/uL Immature Gran # (Auto) 0.02 (0.00-0.02) K/uL Sodium (136-145) mmol/L Potassium (3.5-5.1) mmol/L Chloride (98-107) mmol/L Carbon Dioxide (21-32) mmol/L Anion Gap (3-11) BUN (7-18) mg/dl Creatinine (0.6-1.2) mg/dl Est Cr Clr Drug Dosing ml/min Est GFR ( Amer) Est GFR (Non-Af Amer) BUN/Creatinine Ratio (10-20) Glucose (70-99) mg/dl POC Glucose (70-99) mg/dl Lactate (0.4-2.0) mmol/L Calcium (8.5-10.1) mg/dl Total Bilirubin (0.2-1) mg/dl Direct Bilirubin (0-0.2) mg/dl AST (15-37) U/L ALT (12-78) U/L Alkaline Phosphatase (45-117) U/L Ammonia (11-32) umol/L Total Protein (6.4-8.2) gm/dl Albumin (3.4-5.0) gm/dl Globulin (2.5-4.0) gm/dl Albumin/Globulin Ratio (0.9-2) Vitamin B1 <6 L (8-30) nmol/L 25-OH Vitamin D Total (30-100) ng/ml PTH Intact (18.4-80.1) pg/ml Stool Occult Bld Scrn (Negative) PG Care Time/CCT Total # of Minutes Spent Total Time Spent with Patient: Total time spent is greater than 50% in coordination of care (as documented) at patient's floor/unit and/or counseling patient: Coding Level of Care Code 57373 Subseq Hosp Care Lvl 2 Diagnoses Fatigue R53.83 Abdominal pain R10.9 Iron deficiency anemia D50.9 Anxiety and depression F41.9; F32.9 Schizoaffective disorder F25.9 Diabetes E11.9 Irritable bowel syndrome K58.9 Hypokalemia E87.6 Microcytic anemia D50.9 Hypomagnesemia E83.42 Failure to thrive R62.7 Failure to thrive age range: in adult History of pulmonary embolism Z86.711 Tinea unguium B35.1 Hyperparathyroidism E21.3 (1) Failure to thrive Failure to thrive age range: in adult Qualified Code(s): R62.7 - Adult failure to thrive
[2020-11-01] MEDS: DOCUSATE SODIUM/SENNA 50/8.6MG TAB PO SCH (09:17)
[2020-11-01] MEDS: PANCREAZE (LIPASE 10,500U) CAP PO SCH ×3 (09:17→17:09)
[2020-11-01] MEDS: ESCITALOPRAM OXALATE 20 MG TAB PO SCH (09:17)
[2020-11-01] MEDS: busPIRone 15 MG TAB PO SCH ×3 (09:18→20:05)
[2020-11-01] MEDS: GABAPENTIN 100 MG CAP PO SCH ×3 (09:18→20:04)
[2020-11-01] MEDS: FUROSEMIDE 20 MG TAB PO SCH (09:19)
[2020-11-01] MEDS: PANTOprazole 40 MG TAB PO SCH (09:19)
[2020-11-01] MEDS: INSULIN GLARGINE SOLOSTAR 100 UNITS/ML 3 ML PEN SC SCH ×2 (09:19→21:40)
[2020-11-01] MEDS: POLYETHYLENE (MIRALAX) 17 GM PACK PO SCH (09:19)
[2020-11-01] MEDS: INSULIN ASPART 100 UNITS/ML 3 ML PEN SC SCH ×4 (09:21→21:39)
[2020-11-01] MEDS: LIDOCAINE 5% 1 PATCH TD SCH ×2 (09:23→20:05)
--- NOTE | 2020-11-01 09:40 | Pharmacy Report ---
Pharmacy Glycemic Short Note 2 - Date of Service November 01, 2020 - Glycemic Short BSG Results (Last 24 hours): 10/31/20 10/31/20 10/31/20 10:43 11:54 17:39 Glucose 163 H POC Glucose 144 H 162 H 10/31/20 11/01/20 11/01/20 20:30 05:38 08:00 Glucose 131 H POC Glucose 171 H 132 H OUTPATIENT ANTIDIABETIC REGIMEN: * Basaglar 21 units SC HS * Novolog SC TIDM * HbA1c: 13.9% (10/28/20) * Patient reports that her helper who provides groceries and medications has not been by recently - it has been several days since she has taken any insulin ASSESSMENT: 11/01: * Pt has received 59 units of insulin over the past 24hrs * 40 units of basal insulin {Lantus} * 19 units of bolus insulin {NovoLog} * BSGs ranging 111-171 mg/dl * All BSGs are in goal range for inpatient targets. Regimen is weighted towards basal insulin but AM fasting BSG is adequate. CHO intake is somewhat low which is contributing to lower bolus insulin dosing. No changes needed at this time. 10/31: * Patient is currently receiving 54 units of insulin per day * 40 units of basal insulin * 14 units of prandial/correctional insulin * BSGs ranging 112 - 185 mg/dl over the past 24hrs * AM Fasting BSG = is in goal range at 111 mg/dl; no changes needed to basal insulin * Total daily dose = is weighted towards basal insulin. May need to evenly re-distribute regimen 50%:50% basal:prandial to prevent hypo/hyperglycemia * Will continue current orders and titrate based on BSG trends. 10/28/20 * AP is a 65 year old female admitted on 10/27/20 for failure to thrive and expected need for rehab placement * Patient is very poor historian and has not been taking her medications for at least several days * Pharmacy consulted around lunchtime on 10/28 due to persistent hyperglycemia during this hospitalization * BSGs so far this admission of 234, 227, 193 (fasting), and 275 mg/dL * Prior to consult, patient was ordered Lantus 10 units SC BID and Novolog ACHS (correction factor of 40, carb ratio of 13) * Patient received 10 units of Lantus this morning - will give one-time 25 unit dose this afternoon to approximately equal weight-based (adjusted body weight) stress of 3 dosing * Will also tighten Novolog parameters considerably PLAN FOR INPATIENT GLYCEMIC CONTROL: * Hold outpatient oral diabetes medications * Basal insulin * Lantus 20 units SQ BID * Bolus insulin * NovoLog per scale ACHS or Q6hrs while NPO * Goal Range: Low 110 mg/dL - High 140 mg/dL * Correction Factor: 20 mg/dL/unit * Nutritional / Prandial insulin per carb ratio of 1 unit per 7 grams CHO consumed Discharge Recommendations: * A1c = 13.9 % on 10/28/20 * Goal A1c = <7 % based on age and comorbidities * A1c is greater than or equal to 10% consider triple therapy with metformin + basal insulin + (GLP1-RA OR prandial insulin). May need to continue additional antidiabetic agent based on patient specific factors (efficacy, hypo risk, weight gain/loss, side effects, cost) * Metformin XR 500mg PO daily with evening meal. Typically the XR formulation of metformin is better tolerated than the immediate release formulation. Continue to titrate metformin dosing upwards as recommended. Dosage increases should be made in increments of 500 mg weekly, up to 2,000 mg/day PO, given in divided doses. Doses above 2000 mg/day may be better tolerated if divided and given 3 times per day with meals. Max: 2,550 mg/day PO, in divided doses * B12 supplementation may be necessary with long term care administrator metformin * Basal insulin: increase outpatient basaglar to 20 units SQ BID * Bolus/prandial insulin: NovoLog 6 units SQ TIDM + Scale as needed for hyperglycemia * NovoLog SSI: * Blood Sugar 70-150 administer 0 units * Blood Sugar 151-200 administer 1 units * Blood Sugar 201-250 administer 3 units * Blood Sugar 251-300 administer 5 units * Blood Sugar 301-350 administer 7 units * Blood Sugar 351-400 administer 9 units * Blood Sugar >400 administer 11 units and call MD * Support Patient Self-Management * Healthy Lifestyle (diet, exercise, and smoking cessation) * Disease self-management (SMBG) * Prevention of complications (BP, Lipid goals, Immunizations) * Consider outpatient Diabetes Self-Management Education & Support * Most patients on multiple-dose insulin (MDI) should SMBG * Prior to meals and snacks * At bedtime * Prior to exercise * When they suspect low blood glucose * After treating low blood glucose until they are normoglycemic * Prior to critical tasks such as driving * Occasionally postprandially
[2020-11-01] MEDS: ACETAMINOPHEN 325 MG TAB PO PRN (10:29)
[2020-11-01] MEDS ORDERED: clonazePAM 0.5 MG TAB PO STA (10:36)
[2020-11-01] MEDS ORDERED: clonazePAM 0.5 MG TAB PO PRN (10:36)
--- NOTE | 2020-11-01 11:23 | Discharge Summary ---
Date of Service November 01, 2020 Admission HPI Per Admitting Provider Tierra Gil is a 65-year-old female who presents to the ER via EMS due to unkept state and unable to care for self. She reports short term memory loss and did not take her medications this morning since she didn't have them and is unable to remember the last time she took them . She recently moved to [place], [place] but is unable to tell me for how long "maybe weeks". She has 2 daughters but does not have their numbers so unable to contact them. She doesn't know any other numbers she can call for a collateral history. Cannot remember her PCPs name. She reports being unable to care for herself at home and couldn't clean herself after having bowel movements. She also reports having nothing to eat at home. She is aware of some of her medical problems and medications including diabetes, IBS, Depression, anxiety, schizoaffective disorder and history of recurrent pulmonary emboli. PCP listed as Kevin Lainez who is a PA with psychiatry for [facility] but unfortunately it is currently outside of office hours to get more information. She denies any alcohol or illicit drug use. Smokes - unsure how much because she "gets them from the [facility]". She was recently in the ER 2 days previously which noted also recently being at [facility] and patient having minimal intake for past 24-48 hours, generalized myalgias and left shoulder pain (she notes chronic left shoulder arthritis). She was discharged home on that occasion. SARS-COV-2 negative and no respiratory symptoms since then. Thorough workup in the ER today was relatively unremarkable although UA pending (no urinary symptoms per patient). Unable to place the patient in rehabilitation from the ER therefore requested admission to medicine for ongoing management while awaiting placement in rehab. Discharge Exam Constitutional well developed, well nourished and + morbidly obese; no acute distress Eyes PERRL, conjunctivae normal, anicteric sclerae Neck trachea midline, no thyromegaly Respiratory normal respiratory effort, lungs clear to auscultation Auscultation: + diminished lung sounds; no rales and no wheezes Cardiovascular Rate/Rhythm: regular rate and regular rhythm Heart Sounds: no murmur Vessels: no JVD Extremities: normal capillary refill; no calf tenderness Gastrointestinal (Abdomen) normal bowel sounds, soft, nontender, no hepatosplenomegaly Inspection/Auscultation: abdomen normal to inspection, normal bowel sounds and + significant pannus; abdomen not distended Percussion/Palpation: + abdomen tender (RUQ) and abdomen soft; no guarding and abdomen not rigid Musculoskeletal no cyanosis or clubbing, extremities motor strength 5/5 Head/Neck/Chest: normocephalic and head atraumatic Neurologic moves all extremities and awake; no focal motor deficits and not confused Speech / Cognition: normal speech Motor/Sensory: + tremor (essential); no pronator drift and no sensory deficit Cranial Nerves: normal facial strength Psychiatric Orientation: alert, oriented to person, oriented to place and oriented to time Eye Contact: good eye contact Affect: + flat affect Lymphatic no cervical or axillary lymphadenopathy Discharge Data Allergies Allergy/AdvReac Type Severity Reaction Status Date / Time egg AdvReac Severe Vomiting Unverified 10/27/20 12:34 Penicillins AdvReac Severe Vomiting Unverified 10/27/20 12:34 Consultations 10/27/20 14:12 ED Decision to Admit Stat 10/27/20 14:21 Consult Health Information Management Stat 10/27/20 17:17 Consult Case Management - Discharge Planning Routine 10/28/20 13:57 Consult Podiatry Routine 10/29/20 19:14 Consult Psychiatry Routine 10/31/20 15:41 Consult Nephrology Routine Ordered Studies 10/30/20 13:58 US gallbladder Urgent 10/31/20 09:17 CT abdomen w IV con Routine Diabetes Follow up Diabetes Follow-up Needed for HgbA1c >9% Hospital Course (1) Fatigue: * Admitted for failure to thrive and was found by EMS without food in refrigerator. Has not been receiving medications. Previously w/ waiver care but not sure when this stopped. CM assisting. Recently moved to [facility] * Likely combination of dehydration, lack of access to food/medications, iron deficiency anemia * TSH 5.2H, likely reactive, T4 wnl 0.8 (low normal) - consider repeat in 3-4 weeks and initiate 25mcg levothyroxine daily if TFT abnormal * Depakote level wnl * Lyme negative * Procal negative * Ammonia 38.3 (order lactulose x 1 on 10/31), CK low Anemia -- iron deficiency * MCV 77 and iron studies added to labs -- Iron 20 LOW, transferrin 258 wnl, Transferrin % sat 5 LOW, ferritin 11.6 * -- ordered Venofer IV for 10/28 and will repeat 10/30 * H/h stable * Reports improvement of fatigue * PT/OT rec 24h care * CM assisting with placement at discharge -- patient is a target. Likely to remain inpatient through next week (2) Abdominal pain: * Reported nausea but no pain, more "crampy" but was tender to palpation RUQ with elevated alk phos. Tbili wnl. ?bilary colic in pt with obesity and likely fatty liver * Tbili wnl and no prior abd pain, however patient has not had BM for 2 days and received IV venofer 10/28. * Ordered US GB -- not seen * CTA/P with surgically absent GB * Patient reported resolution of abdominal pain today, 10/31 * Hold Questran, add bowel regimen * Monitor (3) Iron deficiency anemia: * See above under fatigue (4) Anxiety and depression: * Continue her routine mental health medication - see psych note for outpatient regimen -- adjustments made as below while inpatient * Quetiapine 400mg HS daily, escitalopram INCREASED to 20mg PO daily, buspirone 15mg PO TID, valproate 500mg PO TID (no Hx seizure disorder)--> will change to 1500mg HS tomorrow as on [employer] CLERK * Will reduce clonazepam dose due to concern for short term memory loss -- also added B1 level and will now start thiamine daily * Psych consulted as patient with brief period of hallucination "seeing butterflies" as well as patient without medication compliance due to access at home -- appreciate assistance * Req outpatient records and to arrange follow up care once we know which facility patient going to * Continue current regimen (5) Schizoaffective disorder: * as above (6) Diabetes: * HbA1C with AM labs -- 13.9 * Switch Basaglar 21 units daily to lantus 10 units BID * Novolog: * Goal BSG Range: Low 100 mg/dL, High 140 mg/dL * Correction Factor: 40 mg/dL/unit * INS:CHO Ratio: 1unit per 13 gms CHO consumed * BSGs ACHS if eating, q6h if npo * Pharmacy consulted for glycemic management -- had not been receiving her insulin [employer] CLERK * BSGs acceptable (7) Irritable bowel syndrome: * Continue her usual outpatient regimen with cholestyramine BID, pancreatic enzymes (?diagnosis of pancreatic insufficiency, no prior pancreatitis) and loperamide PRN. * *Hold cholestyramine as patient without BM (8) Hypokalemia: * Replaced in ER and with IV fluids -- likely secondary to PO intake [employer] CLERK * K 3.4 on AM labs and ordered 20meq PO * K continues to be stable, 4.1 * BMP in AM (9) Microcytic anemia: * See above (10) Hypomagnesemia: * Mag 1.5 -- ordered 3gm IV * Mag wnl on repeat (11) Failure to thrive: * PT/OT/discharge planning for likely need for placement -- rec 24h care * CM assisting (12) History of pulmonary embolism: * Continue Xarelto 20mg PO daily (13) Tinea unguium: L toe pain * Xray with diffuse soft tissue swelling, no bony destruction to suggest osteoarthritis * Podiatry consult -- seen today and had toenails debrided * --> will need outpatient follow up for podiatric care Hypercalcemia/Hyperparathyroidism -- unclear etiology Initially thought to be related to low Vit D, however Ca 9.3/Albumin 2.7, PTH elevated to 216.6 Nephrology consulted Monitor on AM labs Dispo; patient target with psychiatric illness -- CM following. Likely to remain inpatient until arrangements able to be made (14) Hyperparathyroidism: Discharge Plan Discharge Items Reason For Visit: FAILURE TO THRIVE, HYPOKALEMIA Follow-up/Referrals: Kevin Lainez, M.P.A. [Primary Care Provider] - Medications and DC Order Prescriptions: No Action clonazepam 0.5 mg tablet 0.5 mg PO BID RF: 0 pantoprazole 40 mg tablet,delayed release (DR/EC) 40 mg PO DAILY RF: 0 divalproex 500 mg tablet extended release 24 hr 500 mg PO TID RF: 0 furosemide 20 mg tablet 20 mg PO QAM RF: 0 gabapentin 100 mg capsule 100 mg PO TID RF: 0 buspirone 15 mg tablet 15 mg PO TID RF: 0 escitalopram oxalate 10 mg tablet 10 mg PO DAILY RF: 0 insulin aspart U-100 [Novolog Flexpen U-100 Insulin] 100 unit/mL (3 mL) insulin pen 0 unit SUBCUT UD RF: 0 cholestyramine (with sugar) 4 gram powder in packet 1 ea PO BID RF: 0 quetiapine 400 mg tablet 400 mg PO DAILY RF: 0 Basaglar KwikPen U-100 Insulin 100 unit/mL (3 mL) insulin pen 21 unit SUBCUT HS RF: 0 Creon 12,000-38,000 -60,000 unit capsule,delayed release(DR/EC) 1 cap PO TID RF: 0 Xarelto 20 mg tablet 20 mg PO DAILY RF: 0 loperamide [Anti-Diarrhea] 2 mg Tablet 2 mg PO Q6H PRN (Reason: Diarrhea) RF: 0 Krames/Other Patient Handouts: High Blood Sugar (Hyperglycemia), Hypoglycemia (Low Blood Sugar), Managing Type 2 Diabetes, 5 Steps for Eating Healthier Admission Data Admit Date/Time: 10/28/20 10:34 Attending Provider: Helio Leonard Admit Provider: Elmo Centeno Primary Care Provider: Kevin Lainez Other Providers: Elmo Centeno ; Anita Samano ; Eliceo, ; Sindi Stout ; Cayden Gloria Coding Diagnoses Fatigue R53.83 Abdominal pain R10.9 Iron deficiency anemia D50.9 Anxiety and depression F41.9; F32.9 Schizoaffective disorder F25.9 Diabetes E11.9 Irritable bowel syndrome K58.9 Hypokalemia E87.6 Microcytic anemia D50.9 Hypomagnesemia E83.42 Failure to thrive R62.7 Failure to thrive age range: in adult History of pulmonary embolism Z86.711 Tinea unguium B35.1 Hyperparathyroidism E21.3
[2020-11-01] MEDS ORDERED: IRON SUCROSE 200 MG in 0.9 % SODIUM CHLORIDE 100 ML IV ONE (11:30)
[2020-11-01] MEDS: THIAMINE HCL 100 MG TAB PO SCH ×2 (11:52→22:24)
--- NOTE | 2020-11-01 18:07 | Nephrology Consultation ---
Date of Consultation November 01, 2020 Assessment & Plan (1) Hyperparathyroidism: Etiology is unclear. I do not appreciate any enlargement of the parathyroid gland on exam. It is certainly possible that she does have parathyroidism associated with lithium use in the past. I will try to confirm the history on this. Overall, in any sense, she appears to be asymptomatic. Serum calcium is currently acceptable. I suspect she may ultimately benefit from some vitamin-D replacement to try to unmask primary versus secondary PTH. I cannot exclude that this is secondary to vitamin 25 hydroxy vitamin-D deficiency. This is certainly something that could be coordinated as an outpatient. I would also consider scheduling follow-up DEXA to evaluate overall bone density once outpatient follow up arranged. I discussed these recommendations with the patient today. No additional inpatient evaluation necessary. Outpatient follow-up in the nephrology clinic or with Endocrinology would be encouraged. Please feel free to call with any questions or concerns ([phone]). Nephrology will sign-off pending outpatient follow up. History of Present Illness Reason for Consultation: Hypercalcemia, hyperparathyroidism Requesting Physician: Helio Leonard MD Attending Physician: Helio Leonard MD History of Present Illness Tierra Gil was seen and evaluated this AM regarding findings suggestive of secondary hyperparathyroidism. She was not previously aware of any similar condition. PTH checked in response to an elevated corrected serum calcium of 10.4. PTH was found to be elevated >200. Notable 25OH vitamin D deficiency noted. I discussed the case and plan of care Anabella Adler PA-C this AM. Tierra felt well and denied any symptoms at the time of my assessment. She told me that she does recall being treated with [place] in the past. She is not currently being treated with [place]. She is not taking any vitamin D therapy. She does not have any history of fractures. She does not have a history of kidney stone disease. Allergies Allergy/AdvReac Type Severity Reaction Status Date / Time egg AdvReac Severe Vomiting Unverified 10/27/20 12:34 Penicillins AdvReac Severe Vomiting Unverified 10/27/20 12:34 Home Medications Medication Instructions Recorded Confirmed Type Creon 1 cap PO TID 10/25/20 10/27/20 History Xarelto 20 mg PO DAILY 10/25/20 10/27/20 History buspirone 15 mg PO TID 10/25/20 10/27/20 History cholestyramine (with sugar) 1 ea PO BID 10/25/20 10/27/20 History clonazepam 0.5 mg PO BID 10/25/20 10/27/20 History furosemide 20 mg PO QAM 10/25/20 10/27/20 History gabapentin 100 mg PO TID 10/25/20 10/27/20 History pantoprazole 40 mg PO DAILY 10/25/20 10/27/20 History loperamide 2 mg PO Q6H PRN 10/27/20 10/27/20 History Basaglar KwikPen U-100 Insulin 20 unit SUBCUT BID #0 ml 11/01/20 10/27/20 Rx divalproex 1,500 mg PO HS #0 tab 11/01/20 10/27/20 Rx escitalopram oxalate 20 mg PO DAILY 30 Days #30 tab 11/01/20 Rx ferrous sulfate 325 mg PO Q OTHER DAY #30 tab 11/01/20 Rx insulin aspart U-100 [Novolog 1 unit SC ACHS #30 ml 11/01/20 Rx Flexpen U-100 Insulin] insulin aspart U-100 [Novolog 6 unit SUBCUT TID #0 ml 11/01/20 10/27/20 Rx Flexpen U-100 Insulin] metformin 500 mg PO PM #30 tab 11/01/20 Rx quetiapine 400 mg PO HS #0 tab 11/01/20 10/27/20 Rx thiamine HCl (vitamin B1) [Vitamin 100 mg PO BID #30 tab 11/01/20 Rx B-1] tramadol 50 mg PO Q4H PRN #7 tab 11/01/20 Rx Patient History Medical History Anxiety and depression Arthritis Diabetes GERD (gastroesophageal reflux disease) History of pulmonary embolism Irritable bowel syndrome Schizoaffective disorder Surgical History History of section x2 Social History Smoking Status: Current every day smoker Cigarettes Per Day: patient doesn't know; Second Hand Exposure: Yes; Do You Dip or Chew Tobacco: No; Tobacco Cessation Education Requested by Patient: No Hx Alcohol Use: No Hx Substance Use: No Preferred Language: Occitan Communication Ability: Effective Communication Ability Comment: can read and write just states she can't spell very well Foot Doctor Required: No Beliefs That Will Affect Care: Protestant marital status: Unknown Current Living Situation: Alone Other Information That Helps Us Care for You: No Feels Safe at Home: No Is there a partner from a previous relationship who is making you feel unsafe now?: No Any Concerns about Your Family Situation: No Would You Like to Speak to Someone About Your Situation: Yes (patient is afraid for self because she can't care for herself) Safety Concerns: Afraid for Self Assistive Devices: Walker Review of Systems Review of Systems: All systems reviewed & are unremarkable except as noted in HPI & below Constitutional: no weight loss, no weight gain and no problem reported Eyes: no problem reported Ear, Nose, Mouth, Throat: no problem reported Respiratory: no problem reported Cardiovascular: no problem reported Gastrointestinal: no problem reported Musculoskeletal: no problem reported Integumentary: no problem reported Neurologic: no problem reported Psychiatric: no problem reported Endocrine: no problem reported Hematologic / Lymphatic: no problem reported Physical Exam Constitutional: well developed; no acute distress Eyes: no scleral abnormality and no corneal abnormality ENMT: Mouth: no oral mucosal abnormality and oral mucous membranes not dry Neck: normal visual inspection and trachea midline Respiratory: normal respiratory effort Auscultation: lungs clear to auscultation bilaterally Cardiovascular: Rate/Rhythm: regular rate Heart Sounds: normal S1 and normal S2 Extremities: no edema Musculoskeletal: Extremities: no cyanosis and no clubbing Skin: normal turgor; no lesions Neurologic: Motor/Sensory: no tremor and no asterixis Psychiatric: Orientation: alert and oriented x 3 Results & Data ([facility]) Vital Signs (Past 12 Hours) Vital Signs Temp Pulse Resp BP Pulse Ox 11/01/20 15:30 36.7 C 77 17 106/70 98 11/01/20 14:30 36.9 C 74 15 115/71 91 11/01/20 07:19 36.9 C 74 15 115/71 91 Laboratory Results Laboratory Results - last 24 hr 10/28/20 10/31/20 10/31/20 10:59 19:00 19:52 WBC RBC Hgb Hct MCV MCH MCHC RDW Std Deviation RDW Coeff of [place] Plt Count MPV Immature Gran % (Auto) Neut % (Auto) Lymph % (Auto) Arthur % (Auto) Eos % (Auto) Baso % (Auto) Neut # (Auto) Lymph # (Auto) Arthur # (Auto) Eos # (Auto) Baso # (Auto) Immature Gran # (Auto) Sodium Potassium Chloride Carbon Dioxide Anion Gap BUN Creatinine Est Cr Clr Drug Dosing Est GFR ( Amer) Est GFR (Non-Af Amer) BUN/Creatinine Ratio Glucose POC Glucose Lactate 1.8 Calcium Total Bilirubin AST ALT Alkaline Phosphatase Total Protein Albumin Globulin Albumin/Globulin Ratio Vitamin B1 <6 L Stool Occult Bld Scrn Negative SARS-CoV-2 Ag (Rapid) 10/31/20 11/01/20 11/01/20 20:30 05:38 05:38 WBC 5.89 RBC 4.54 Hgb 10.4 L Hct 35.9 L MCV 79.1 L MCH 22.9 L MCHC 29.0 L RDW Std Deviation 48.4 H RDW Coeff of [place] 17.1 H Plt Count 210 MPV 9.4 Immature Gran % (Auto) 0.7 Neut % (Auto) 19.8 Lymph % (Auto) 68.4 Arthur % (Auto) 9.0 Eos % (Auto) 1.9 Baso % (Auto) 0.2 Neut # (Auto) 1.17 L Lymph # (Auto) 4.03 H Arthur # (Auto) 0.53 Eos # (Auto) 0.11 Baso # (Auto) 0.01 Immature Gran # (Auto) 0.04 H Sodium 142 Potassium 3.8 Chloride 107 Carbon Dioxide 31 Anion Gap 5.0 BUN 6 L Creatinine 0.74 Est Cr Clr Drug Dosing 89.6 Est GFR ( Amer) 99.9 Est GFR (Non-Af Amer) 86.2 BUN/Creatinine Ratio 8.2 L Glucose 131 H POC Glucose 171 H Lactate Calcium 9.0 Total Bilirubin 0.2 AST 8 L ALT 7 L Alkaline Phosphatase 161 H Total Protein 6.2 L Albumin 2.6 L Globulin 3.6 Albumin/Globulin Ratio 0.7 L Vitamin B1 Stool Occult Bld Scrn SARS-CoV-2 Ag (Rapid) 11/01/20 11/01/20 11/01/20 08:00 11:53 14:35 WBC RBC Hgb Hct MCV MCH MCHC RDW Std Deviation RDW Coeff of [place] Plt Count MPV Immature Gran % (Auto) Neut % (Auto) Lymph % (Auto) Arthur % (Auto) Eos % (Auto) Baso % (Auto) Neut # (Auto) Lymph # (Auto) Arthur # (Auto) Eos # (Auto) Baso # (Auto) Immature Gran # (Auto) Sodium Potassium Chloride Carbon Dioxide Anion Gap BUN Creatinine Est Cr Clr Drug Dosing Est GFR ( Amer) Est GFR (Non-Af Amer) BUN/Creatinine Ratio Glucose POC Glucose 132 H 163 H Lactate Calcium Total Bilirubin AST ALT Alkaline Phosphatase Total Protein Albumin Globulin Albumin/Globulin Ratio Vitamin B1 Stool Occult Bld Scrn SARS-CoV-2 Ag (Rapid) Negative 11/01/20 17:20 WBC RBC Hgb Hct MCV MCH MCHC RDW Std Deviation RDW Coeff of [place] Plt Count MPV Immature Gran % (Auto) Neut % (Auto) Lymph % (Auto) Arthur % (Auto) Eos % (Auto) Baso % (Auto) Neut # (Auto) Lymph # (Auto) Arthur # (Auto) Eos # (Auto) Baso # (Auto) Immature Gran # (Auto) Sodium Potassium Chloride Carbon Dioxide Anion Gap BUN Creatinine Est Cr Clr Drug Dosing Est GFR ( Amer) Est GFR (Non-Af Amer) BUN/Creatinine Ratio Glucose POC Glucose 120 H Lactate Calcium Total Bilirubin AST ALT Alkaline Phosphatase Total Protein Albumin Globulin Albumin/Globulin Ratio Vitamin B1 Stool Occult Bld Scrn SARS-CoV-2 Ag (Rapid) PG Care Time/CCT Total # of Minutes Spent Total Time Spent with Patient: Total time spent is greater than 50% in coordination of care (as documented) at patient's floor/unit and/or counseling patient: Coding Level of Care Code 63005 Inpt Consult Level 3 Diagnoses Hyperparathyroidism E21.3
[2020-11-01] MEDS: DIVALPROEX EXTENDED RELEASE 500 MG TAB PO SCH (20:04)
[2020-11-01] MEDS: QUEtiapine FUMARATE 200 MG TAB PO SCH (20:04)
[2020-11-01] MEDS: RIVAROXABAN 20 MG TAB PO SCH (20:05)
[2020-11-02] MEDS: ACETAMINOPHEN 325 MG TAB PO PRN ×2 (08:02→17:26)
[2020-11-02] MEDS: GABAPENTIN 100 MG CAP PO SCH ×3 (09:00→20:08)
[2020-11-02] MEDS: PANTOprazole 40 MG TAB PO SCH (09:01)
[2020-11-02] MEDS: PANCREAZE (LIPASE 10,500U) CAP PO SCH ×3 (09:01→17:26)
[2020-11-02] MEDS: busPIRone 15 MG TAB PO SCH ×3 (09:01→20:07)
[2020-11-02] MEDS: POLYETHYLENE (MIRALAX) 17 GM PACK PO SCH ×2 (09:02→11:30)
[2020-11-02] MEDS: ESCITALOPRAM OXALATE 20 MG TAB PO SCH (09:02)
[2020-11-02] MEDS: LIDOCAINE 5% 1 PATCH TD SCH ×2 (09:02→20:15)
[2020-11-02] MEDS: FUROSEMIDE 20 MG TAB PO SCH (09:02)
[2020-11-02] MEDS: DOCUSATE SODIUM/SENNA 50/8.6MG TAB PO SCH (09:03)
[2020-11-02] MEDS: INSULIN GLARGINE SOLOSTAR 100 UNITS/ML 3 ML PEN SC SCH ×2 (09:03→21:26)
[2020-11-02] MEDS: INSULIN ASPART 100 UNITS/ML 3 ML PEN SC SCH ×4 (09:04→21:26)
--- NOTE | 2020-11-02 09:23 | Hospitalist Progress Note ---
Date of Service November 02, 2020 Assessment & Plan (1) Fatigue: IMPROVING * Admitted for failure to thrive and was found by EMS without food in refrigerator. Has not been receiving medications. Previously w/ waiver care but not sure when this stopped. CM assisting. Recently moved to [facility] * Likely combination of dehydration, lack of access to food/medications, iron deficiency anemia * Venofer x 3 during admission and continue oral supplementation * TSH 5.2H, likely reactive, T4 wnl 0.8 (low normal) - consider repeat in 3-4 weeks and initiate 25mcg levothyroxine daily if TFT abnormal * Depakote level wnl * Lyme negative * Procal negative * Ammonia 38.3 (order lactulose x 1 on 10/31), CK low Thiamine Deficiency B1 level <6 -- already started on thiamine but will increase to BID to be continued at discharge Anemia -- iron deficiency * MCV 77 and iron studies added to labs -- Iron 20 LOW, transferrin 258 wnl, Transferrin % sat 5 LOW, ferritin 11.6 * -- ordered Venofer IV 3 * Continue oral supplementation * CBC stable * PT/OT rec 24h care * CM assisting with placement at discharge-- [facility] when they are able to accept (roommate with fever and they need to make arrangements prior to taking patient). Able to accept on wednesday (2) Abdominal pain: RESOLVED * Reported nausea but no pain, more "crampy" but was tender to palpation RUQ with elevated alk phos. Tbili wnl. ?bilary colic in pt with obesity and likely fatty live. Also has hypercalcemia -- discussed wtih Dr Gloria and will continue current plan and have outpt f/u for Vit D challenge. Would not give any while inpatient. Low Vit D, elevated PTH and calcium acceptable currently * Tbili wnl and no prior abd pain, however patient has not had BM for 2 days and received IV venofer 10/28. * Ordered US GB -- not seen * CTA/P with surgically absent GB * BM 11/01 -- resumed Questran per her request (3) Iron deficiency anemia: * See above under fatigue (4) Anxiety and depression: * Continue her routine mental health medication - see psych note for outpatient regimen -- adjustments made as below while inpatient * Quetiapine 400mg HS daily, escitalopram INCREASED to 20mg PO daily, buspirone 15mg PO TID, valproate 500mg PO TID (no Hx seizure disorder)--> will change to 1500mg HS tomorrow as on LION HUNTER * Psych consulted as patient with brief period of hallucination "seeing butterflies" as well as patient without medication compliance due to access at home -- appreciate assistance * Req outpatient records and to arrange follow up care once we know which facility patient going to * Increased clonazepam back to usual dose and anxiety resolved * Continue current regimen (5) Schizoaffective disorder: * as above (6) Diabetes: * HbA1C with AM labs -- 13.9 * Switch Basaglar 21 units daily to lantus 10 units BID * Novolog: * Goal BSG Range: Low 100 mg/dL, High 140 mg/dL * Correction Factor: 40 mg/dL/unit * INS:CHO Ratio: 1unit per 13 gms CHO consumed * BSGs ACHS if eating, q6h if npo * Pharmacy consulted for glycemic management -- had not been receiving her insulin LION HUNTER. Need to increase insulin and add Metformin 500mg XR at discharge (changes already made on d/c instructions) * BSGs acceptable (7) Irritable bowel syndrome: * Continue her usual outpatient regimen with cholestyramine BID, pancreatic enzymes (?diagnosis of pancreatic insufficiency, no prior pancreatitis) and loperamide PRN. (8) Hypokalemia: RESOLVED * Replaced in ER and with IV fluids -- likely secondary to PO intake LION HUNTER * K continues to be stable * BMP in AM (9) Microcytic anemia: * See above (10) Hypomagnesemia: * Mag 1.5 -- ordered 3gm IV * Mag wnl on repeat (11) Failure to thrive: * PT/OT/discharge planning for likely need for placement -- rec 24h care * CM assisting (12) History of pulmonary embolism: * Continue Xarelto 20mg PO daily (13) Tinea unguium: L toe pain * Xray with diffuse soft tissue swelling, no bony destruction to suggest osteoarthritis * Podiatry consult -- seen today and had toenails debrided * --> will need outpatient follow up for podiatric care Hypercalcemia/Hyperparathyroidism -- unclear etiology Initially thought to be related to low Vit D, however Ca 9.3/Albumin 2.7, PTH elevated to 216.6. Nephrology consulted -- to have outpatient follow up. Agrees with current plan. Monitor on AM labs Dispo; [facility] when they are able to take -- likely on Wednesday (14) Hyperparathyroidism: Admission and Anticipated Discharge Date Admission Date: October 28, 2020 Subjective Patient evaluated this morning. States no further anxiety today with adjustments made yesterday. Eating/drinking without difficulty but states she would like minced/moist restriction removed. Discussed initially with confusion not sure about swallowing, but given no difficulty swallowing will make that adjustment. Would also like Questran resumed now that she has had a bowel movement as she is worried about getting constipation. No fever, chills,chest pain, shortness of breath, abdominal pain, nausea, vomi ting or dysuria. Discussed continued inpatient stay until bed available at [facility]. Questions/concerns addressed at this time. Physical Exam Physical Exam: Constitutional well developed, well nourished and + morbidly obese; no acute distress Eyes PERRL, conjunctivae normal, anicteric sclerae Neck trachea midline, no thyromegaly Respiratory normal respiratory effort, lungs clear to auscultation Cardiovascular Rate/Rhythm: regular rate and regular rhythm Heart Sounds: no murmur Vessels: no JVD Extremities: normal capillary refill; no calf tenderness Gastrointestinal (Abdomen) normal bowel sounds, soft, nontender, no hepatosplenomegaly Inspection/Auscultation: abdomen normal to inspection, normal bowel sounds and + significant pannus; abdomen not distended Percussion/Palpation: abdomen soft; no guarding and abdomen not rigid Musculoskeletal Head/Neck/Chest: normocephalic and head atraumatic Skin toenails with thickening/fungal appearance but have all been cut/debrided non-tender to palpation NVI pulses palpable bilaterally, equal calves non-tender to palpation Neurologic moves all extremities and awake; no focal motor deficits and not confused Speech / Cognition: normal speech Motor/Sensory: no pronator drift and no sensory deficit Cranial Nerves: normal facial strength Psychiatric Orientation: alert, oriented to person, oriented to place and oriented to time Eye Contact: good eye contact Lymphatic no cervical or axillary lymphadenopathy Results & Data Results & Data ([facility]) Vital Signs (Past 12 Hours) Vital Signs Temp Pulse Resp BP Pulse Ox 11/02/20 07:39 36.7 C 78 16 118/72 91 11/01/20 23:54 36.6 C 76 18 116/74 93 Laboratory Results 11/02/20 11/02/20 11/02/20 Range/Units 12:11 10:49 09:45 WBC (4.8-10.8) K/uL RBC (4.2-5.4) M/uL Hgb (12.0-16.0) g/dL Hct (37-47) % MCV (80-100) fL MCH (25-34) pg MCHC (32-36) g/dL RDW Std Deviation (36.4-46.3) fL RDW Coeff of Vernon (11.5-14.5) % Plt Count (130-400) K/uL MPV (7.4-10.4) fL Absolute Nucleated RBC (0-0) K/uL Nucleated RBC % (auto) % Sodium 140 (136-145) mmol/L Potassium 4.1 (3.5-5.1) mmol/L Chloride 106 (98-107) mmol/L Carbon Dioxide 30 (21-32) mmol/L Anion Gap 5.0 (3-11) BUN 7 (7-18) mg/dl Creatinine 0.81 (0.6-1.2) mg/dl Est Cr Clr Drug Dosing 81.9 ml/min Est GFR ( Amer) 89.6 Est GFR (Non-Af Amer) 77.3 BUN/Creatinine Ratio 8.3 L (10-20) Glucose 197 H (70-99) mg/dl POC Glucose 131 H (70-99) mg/dl Calcium 9.0 (8.5-10.1) mg/dl SARS-CoV-2 Ag (Rapid) (Negative) 11/02/20 11/02/20 11/01/20 Range/Units 09:45 08:03 21:14 WBC 4.56 L (4.8-10.8) K/uL RBC 4.72 (4.2-5.4) M/uL Hgb 10.8 L (12.0-16.0) g/dL Hct 37.6 (37-47) % MCV 79.7 L (80-100) fL MCH 22.9 L (25-34) pg MCHC 28.7 L (32-36) g/dL RDW Std Deviation 49.2 H (36.4-46.3) fL RDW Coeff of Vernon 17.6 H (11.5-14.5) % Plt Count 209 (130-400) K/uL MPV 9.9 (7.4-10.4) fL Absolute Nucleated RBC 0.03 H (0-0) K/uL Nucleated RBC % (auto) 0.7 % Sodium (136-145) mmol/L Potassium (3.5-5.1) mmol/L Chloride (98-107) mmol/L Carbon Dioxide (21-32) mmol/L Anion Gap (3-11) BUN (7-18) mg/dl Creatinine (0.6-1.2) mg/dl Est Cr Clr Drug Dosing ml/min Est GFR ( Amer) Est GFR (Non-Af Amer) BUN/Creatinine Ratio (10-20) Glucose (70-99) mg/dl POC Glucose 86 188 H (70-99) mg/dl Calcium (8.5-10.1) mg/dl SARS-CoV-2 Ag (Rapid) (Negative) 11/01/20 11/01/20 Range/Units 17:20 14:35 WBC (4.8-10.8) K/uL RBC (4.2-5.4) M/uL Hgb (12.0-16.0) g/dL Hct (37-47) % MCV (80-100) fL MCH (25-34) pg MCHC (32-36) g/dL RDW Std Deviation (36.4-46.3) fL RDW Coeff of Vernon (11.5-14.5) % Plt Count (130-400) K/uL MPV (7.4-10.4) fL Absolute Nucleated RBC (0-0) K/uL Nucleated RBC % (auto) % Sodium (136-145) mmol/L Potassium (3.5-5.1) mmol/L Chloride (98-107) mmol/L Carbon Dioxide (21-32) mmol/L Anion Gap (3-11) BUN (7-18) mg/dl Creatinine (0.6-1.2) mg/dl Est Cr Clr Drug Dosing ml/min Est GFR ( Amer) Est GFR (Non-Af Amer) BUN/Creatinine Ratio (10-20) Glucose (70-99) mg/dl POC Glucose 120 H (70-99) mg/dl Calcium (8.5-10.1) mg/dl SARS-CoV-2 Ag (Rapid) Negative (Negative) PG Care Time/CCT Total # of Minutes Spent Total Time Spent with Patient: Total time spent is greater than 50% in coordination of care (as documented) at patient's floor/unit and/or counseling patient: Coding Level of Care Code 15841 Subseq Hosp Care Lvl 2 Diagnoses Fatigue R53.83 Abdominal pain R10.9 Iron deficiency anemia D50.9 Anxiety and depression F41.9; F32.9 Schizoaffective disorder F25.9 Diabetes E11.9 Irritable bowel syndrome K58.9 Hypokalemia E87.6 Microcytic anemia D50.9 Hypomagnesemia E83.42 Failure to thrive R62.7 Failure to thrive age range: in adult History of pulmonary embolism Z86.711 Tinea unguium B35.1 Hyperparathyroidism E21.3 (1) Failure to thrive Failure to thrive age range: in adult Qualified Code(s): R62.7 - Adult failure to thrive
[2020-11-02 10:05] LABS: Hematocrit (blood only) 37.6 % (37-47); Hemoglobin 10.8 g/dL (12.0-16.0); Mean Corpuscular Hemoglobin 22.9 pg (25-34); Mean Corpuscular Hgb Conc 28.7 g/dL (32-36); Mean Corpuscular Volume 79.7 fL (80-100); Mean Platelet Volume 9.9 fL (7.4-10.4); Nucleated RBC # (auto) 0.03 K/uL (0-0); Nucleated RBC % (auto) 0.7 %; Platelet Count 209 K/uL (130-400); RDW Coefficient of Variation 17.6 % (11.5-14.5); RDW Standard Deviation 49.2 fL (36.4-46.3); Red Blood Count 4.72 M/uL (4.2-5.4); White Blood Count 4.56 K/uL (4.8-10.8)
[2020-11-02 10:38] LABS: BUN Creatinine Ratio 8.3 (10-20); Creatinine Clr Calc Pharmacy 81.9 ml/min; Est GFR (African American) 89.6; Est GFR (Non-African American) 77.3
[2020-11-02] MEDS: THIAMINE HCL 100 MG TAB PO SCH ×2 (12:47→20:14)
[2020-11-02] MEDS: DIVALPROEX EXTENDED RELEASE 500 MG TAB PO SCH (20:07)
[2020-11-02] MEDS: RIVAROXABAN 20 MG TAB PO SCH (20:08)
[2020-11-02] MEDS: QUEtiapine FUMARATE 200 MG TAB PO SCH (20:08)
[2020-11-02] MEDS: CHOLESTYRAMINE LIGHT 4 GM PKT PO SCH (21:31)
[2020-11-03] MEDS: ACETAMINOPHEN 325 MG TAB PO PRN ×3 (01:02→20:26)
[2020-11-03 06:13] LABS: Hematocrit (blood only) 36.5 % (37-47); Hemoglobin 10.6 g/dL (12.0-16.0); Mean Corpuscular Hemoglobin 23.1 pg (25-34); Mean Corpuscular Volume 79.7 fL (80-100); Mean Platelet Volume 9.7 fL (7.4-10.4); Platelet Count 217 K/uL (130-400); Red Blood Count 4.58 M/uL (4.2-5.4); White Blood Count 7.02 K/uL (4.8-10.8)
[2020-11-03 06:49] LABS: Albumin Level 2.7 gm/dl (3.4-5.0); BUN Creatinine Ratio 16.1 (10-20); Creatinine Clr Calc Pharmacy 90.8 ml/min; Est GFR (African American) 101.6; Est GFR (Non-African American) 87.7
[2020-11-03 06:52] LABS: Albumin Globulin Ratio 0.8 (0.9-2); Bilirubin,Total 0.3 mg/dl (0.2-1); Globulin 3.6 gm/dl (2.5-4.0); Total Protein 6.3 gm/dl (6.4-8.2)
[2020-11-03] MEDS: PANCREAZE (LIPASE 10,500U) CAP PO SCH ×3 (08:04→17:17)
[2020-11-03] MEDS: GABAPENTIN 100 MG CAP PO SCH ×3 (09:13→20:22)
[2020-11-03] MEDS: PANTOprazole 40 MG TAB PO SCH (09:13)
[2020-11-03] MEDS: FERROUS SULFATE 325 MG TAB PO SCH (09:13)
[2020-11-03] MEDS: FUROSEMIDE 20 MG TAB PO SCH (09:13)
[2020-11-03] MEDS: ESCITALOPRAM OXALATE 20 MG TAB PO SCH (09:13)
[2020-11-03] MEDS: busPIRone 15 MG TAB PO SCH ×3 (09:14→20:21)
[2020-11-03] MEDS: DOCUSATE SODIUM/SENNA 50/8.6MG TAB PO SCH (09:14)
[2020-11-03] MEDS: THIAMINE HCL 100 MG TAB PO SCH ×2 (09:14→20:22)
[2020-11-03] MEDS: LIDOCAINE 5% 1 PATCH TD SCH ×2 (09:15→20:17)
[2020-11-03] MEDS: POLYETHYLENE (MIRALAX) 17 GM PACK PO SCH (09:15)
[2020-11-03] MEDS: INSULIN GLARGINE SOLOSTAR 100 UNITS/ML 3 ML PEN SC SCH ×2 (09:17→20:29)
[2020-11-03] MEDS: INSULIN ASPART 100 UNITS/ML 3 ML PEN SC SCH ×4 (09:19→20:29)
[2020-11-03] MEDS: CHOLESTYRAMINE LIGHT 4 GM PKT PO SCH ×3 (09:20→22:43)
[2020-11-03] MEDS: ONDANSETRON INJ 2 MG/ML 2 ML VIAL IV PRN (12:02)
--- NOTE | 2020-11-03 16:51 | Hospitalist Progress Note ---
Date of Service November 03, 2020 Assessment & Plan (1) Fatigue: Patient reports she is feeling improved. * Admitted for failure to thrive and was found by EMS without food in refrigerator. Had not been receiving medications. Previously w/ waiver care but not sure when this stopped. CM assisting. Recently moved to [facility] * Likely combination of dehydration, lack of access to food/medications, iron deficiency anemia * Venofer x 3 during admission and continue oral supplementation * TSH 5.2H, likely reactive, T4 wnl 0.8 (low normal) - consider repeat in 3-4 weeks and initiate 25mcg levothyroxine daily if TFT abnormal * Depakote level wnl * Lyme negative * Procal negative * Ammonia 38.3 (order lactulose x 1 on 10/31), CK low Thiamine Deficiency B1 level <6 -- thiamine 100mg PO BID Anemia -- iron deficiency * MCV 77 and iron studies added to labs -- Iron 20 LOW, transferrin 258 wnl, Transferrin % sat 5 LOW, ferritin 11.6 * -- ordered Venofer IV 3 * Continue oral supplementation * CBC stable * PT/OT rec 24h care * CM assisting with placement at discharge-- Possible discharge to [facility] tomorrow. (2) Abdominal pain: RESOLVED * Reported nausea but no pain, more "crampy" but was tender to palpation RUQ with elevated alk phos. Tbili wnl. ?bilary colic in pt with obesity and likely fatty live. Also has hypercalcemia -- discussed wtih Dr Gloria and will continue current plan and have outpt f/u for Vit D challenge. Would not give any while inpatient. Low Vit D, elevated PTH and calcium acceptable currently * Tbili wnl and no prior abd pain, however patient has not had BM for 2 days and received IV venofer 10/28. * Ordered US GB -- not seen * CTA/P with surgically absent GB * BM 11/01 -- resumed Questran per her request * Non-tender abdominal exam today. Some nausea persists. Zofran PRN. (3) Iron deficiency anemia: * See above under fatigue (4) Anxiety and depression: * Continue her routine mental health medication - see psych note for outpatient regimen -- adjustments made as below while inpatient * Quetiapine 400mg HS daily, escitalopram INCREASED to 20mg PO daily, buspirone 15mg PO TID, valproate 500mg PO TID (no Hx seizure disorder)--> changed to 1500mg HS starting this evening * Psych consulted as patient with brief period of hallucination "seeing butterflies" as well as patient without medication compliance due to access at home -- appreciate assistance * Req outpatient records and to arrange follow up care once discharged * Increased clonazepam back to usual dose and anxiety resolved * Continue current regimen (5) Schizoaffective disorder: * as above (6) Diabetes: * HbA1C poorly controlled at 13.9 * Switch Basaglar 21 units daily to lantus 10 units BID * Novolog: * Goal BSG Range: Low 100 mg/dL, High 140 mg/dL * Correction Factor: 40 mg/dL/unit * INS:CHO Ratio: 1unit per 13 gms CHO consumed * BSGs ACHS if eating, q6h if npo * Pharmacy consulted for glycemic management -- had not been receiving her insulin [facility]. Need to increase insulin and add Metformin 500mg XR at discharge (changes already made on d/c instructions) * BSGs acceptable (7) Irritable bowel syndrome: * Continue her usual outpatient regimen with cholestyramine BID, pancreatic enzymes (?diagnosis of pancreatic insufficiency, no prior pancreatitis) and loperamide PRN. (8) Hypokalemia: Resolved. K continues to be stable at 4.0 (9) Microcytic anemia: * See above (10) Hypomagnesemia: Resolved at 1.9. (11) Failure to thrive: * Improved since admission. Mutifactorial. * PT/OT/discharge planning for [facility] * CM assisting (12) History of pulmonary embolism: * Continue Xarelto 20mg PO daily (13) Tinea unguium: L toe pain * Xray with diffuse soft tissue swelling, no bony destruction to suggest o steoarthritis * Podiatry consult -- seen today and had toenails debrided * --> will need outpatient follow up for podiatric care (14) Hyperparathyroidism: Unclear etiology. Ca 9.3/Albumin 2.7, PTH elevated at 216.6. Nephrology consulted- recommends Vit D replacement to help unmask primary vs secondary PTH. Recommends DEXA scan as an outpatient as well. Vit D level 6.8. No supplementation while inpatient. Coordinate for outpatient Vit D challenge. Disposition- Likely [facility] tomorrow. Patient will need close outpatient f/u with PCP, nephrology, and psych. Admission and Anticipated Discharge Date Admission Date: October 28, 2020 Subjective 65 yo female admitted with fatigue and failure to thrive. Noted to have thiamine deficiency and iron deficiency anemia on admission as well. Patient reports she is feeling better this morning. She denies pain. She states she is craving a cigarette, but declines a nicotine patch. She denied n/v initially during our visit this afternoon, but then c/o nausea and requested an emesis basin at the end of the visit. She has been eating all of her food without difficulty per nursing staff. She is pending discharge to [facility]. Review of Systems Constitutional: no fever and no chills Eyes: no worsening vision Ear, Nose, Mouth, Throat: no dizziness Respiratory: + dyspnea (chronic occasional SOB- patient is a smoker ) Cardiovascular: no chest pain Gastrointestinal: + nausea; no abdominal pain and no vomiting Psychiatric: no hallucinations Physical Exam Physical Exam: Temp Pulse Resp BP Pulse Ox 36.7 C 76 16 107/65 93 11/03/20 15:03 11/03/20 15:03 11/03/20 15:03 11/03/20 15:03 11/03/20 15:03 Patient is afebrile. Vital signs stable. Constitutional: + obese; no acute distress ENMT: Ears: no hearing impairment Neck: normal visual inspection Respiratory: normal respiratory effort, lungs clear to auscultation Cardiovascular: RRR, no murmur, no edema Gastrointestinal (Abdomen): Inspection/Auscultation: normal bowel sounds Percussion/Palpation: abdomen soft; abdomen nontender Psychiatric: A+Ox3, euthymic affect Results & Data Results & Data ([facility]) Vital Signs (Past 12 Hours) Vital Signs Temp Pulse Resp BP Pulse Ox 11/03/20 15:03 36.7 C 76 16 107/65 93 11/03/20 07:49 36.8 C 76 18 107/67 92 PG Care Time/CCT Total # of Minutes Spent Total Time Spent with Patient: Total time spent is greater than 50% in coordination of care (as documented) at patient's floor/unit and/or counseling patient: Coding Level of Care Code 99347 Subseq Hosp Care Lvl 2 Medical Decision Making Moderate Complexity Diagnoses Fatigue R53.83 Abdominal pain R10.9 Iron deficiency anemia D50.9 Anxiety and depression F41.9; F32.9 Schizoaffective disorder F25.9 Diabetes E11.9 Irritable bowel syndrome K58.9 Hypokalemia E87.6 Microcytic anemia D50.9 Hypomagnesemia E83.42 Failure to thrive R62.7 Failure to thrive age range: in adult History of pulmonary embolism Z86.711 Tinea unguium B35.1 Hyperparathyroidism E21.3 (1) Failure to thrive Failure to thrive age range: in adult Qualified Code(s): R62.7 - Adult failure to thrive
[2020-11-03] MEDS ORDERED: ERGOCALCIFEROL 50,000 UNITS 1250 MCG CAP PO ONE (17:17)
[2020-11-03] MEDS: DIVALPROEX EXTENDED RELEASE 500 MG TAB PO SCH (20:19)
[2020-11-03] MEDS: QUEtiapine FUMARATE 200 MG TAB PO SCH (20:21)
[2020-11-03] MEDS: RIVAROXABAN 20 MG TAB PO SCH (20:23)
[2020-11-04] MEDS: ONDANSETRON INJ 2 MG/ML 2 ML VIAL IV PRN (01:36)
[2020-11-04] MEDS: busPIRone 15 MG TAB PO SCH ×2 (09:03→14:19)
[2020-11-04] MEDS: ESCITALOPRAM OXALATE 20 MG TAB PO SCH (09:03)
[2020-11-04] MEDS: FUROSEMIDE 20 MG TAB PO SCH (09:04)
[2020-11-04] MEDS: PANCREAZE (LIPASE 10,500U) CAP PO SCH ×2 (09:04→12:41)
[2020-11-04] MEDS: THIAMINE HCL 100 MG TAB PO SCH (09:05)
[2020-11-04] MEDS: POLYETHYLENE (MIRALAX) 17 GM PACK PO SCH ×2 (09:05→09:35)
[2020-11-04] MEDS: GABAPENTIN 100 MG CAP PO SCH ×2 (09:05→14:19)
[2020-11-04] MEDS: FERROUS SULFATE 325 MG TAB PO SCH (09:05)
[2020-11-04] MEDS: LIDOCAINE 5% 1 PATCH TD SCH (09:05)
[2020-11-04] MEDS: PANTOprazole 40 MG TAB PO SCH (09:05)
[2020-11-04] MEDS: DOCUSATE SODIUM/SENNA 50/8.6MG TAB PO SCH (09:07)
[2020-11-04] MEDS: ACETAMINOPHEN 325 MG TAB PO PRN ×2 (09:09→13:06)
[2020-11-04] MEDS: CHOLESTYRAMINE LIGHT 4 GM PKT PO SCH (09:36)
[2020-11-04] MEDS: INSULIN GLARGINE SOLOSTAR 100 UNITS/ML 3 ML PEN SC SCH (09:36)
[2020-11-04] MEDS: INSULIN ASPART 100 UNITS/ML 3 ML PEN SC SCH ×2 (09:38→12:43)
--- NOTE | 2020-11-04 10:06 | Pharmacy Report ---
Pharmacy Glycemic Short Note 2 - Date of Service November 04, 2020 - Glycemic Short BSG Results (Last 24 hours): 11/03/20 11/03/20 11/03/20 12:25 17:19 20:14 POC Glucose 186 H 197 H 173 H 11/04/20 08:05 POC Glucose 135 H OUTPATIENT ANTIDIABETIC REGIMEN: * Basaglar 21 units SC HS * Novolog SC TIDM * HbA1c: 13.9% (10/28/20) * Patient reports that her helper who provides groceries and medications has not been by recently - it has been several days since she has taken any insulin ASSESSMENT: 11/04 * BSGs reasonably well controlled over last 24 hrs * 63 units SQ insulin administered over last 24 hrs while tolerating a diet * Fasting BSG at goal this AM (FBS 135) with 40 units Lantus on board - pt should be at steady-state on current dose - will continue the same * Mildly elevated post-prandial BSGs observed yesterday w/ current prandial insulin orders. Previous days reviewed and overall the current prandial orders have performed well. Will not react to yesterday's mild elevations at this time. Rather will monitor post-prandial trends today. PLAN FOR INPATIENT GLYCEMIC CONTROL: * Hold outpatient oral diabetes medications * Basal insulin - no change * Lantus 20 units SQ BID * Bolus insulin - no change * NovoLog per scale ACHS or Q6hrs while NPO * Goal Range: Low 110 mg/dL - High 140 mg/dL * Correction Factor: 20 mg/dL/unit * Nutritional / Prandial insulin per carb ratio of 1 unit per 7 grams CHO consumed Discharge Recommendations: * A1c = 13.9 % on 10/28/20 * Goal A1c = <7 % based on age and comorbidities * A1c is greater than or equal to 10% consider triple therapy with metformin + basal insulin + (GLP1-RA OR prandial insulin). May need to continue additional antidiabetic agent based on patient specific factors (efficacy, hypo risk, weight gain/loss, side effects, cost) * Metformin XR 500mg PO daily with evening meal. Typically the XR formulation of metformin is better tolerated than the immediate release formulation. Continue to titrate metformin dosing upwards as recommended. Dosage increases should be made in increments of 500 mg weekly, up to 2,000 mg/day PO, given in divided doses. * B12 supplementation may be necessary with manager terminal metformin * Basal insulin: increase outpatient basaglar to 30 units SQ daily * Bolus/prandial insulin: NovoLog 6 units SQ TIDM + Scale as needed for hyperglycemia * NovoLog SSI: * Blood Sugar 70-150 administer 0 units * Blood Sugar 151-200 administer 1 units * Blood Sugar 201-250 administer 3 units * Blood Sugar 251-300 administer 5 units * Blood Sugar 301-350 administer 7 units * Blood Sugar 351-400 administer 9 units * Blood Sugar >400 administer 11 units and call MD * Support Patient Self-Management * Healthy Lifestyle (diet, exercise, and smoking cessation) * Disease self-management (SMBG) * Prevention of complications (BP, Lipid goals, Immunizations) * Consider outpatient Diabetes Self-Management Education & Support * Most patients on multiple-dose insulin (MDI) should SMBG * Prior to meals and snacks * At bedtime * Prior to exercise * When they suspect low blood glucose * After treating low blood glucose until they are normoglycemic * Prior to critical tasks such as driving * Occasionally postprandially
--- NOTE | 2020-11-04 13:00 | Discharge Summary ---
Date of Service November 04, 2020 Admission HPI Per Admitting Provider Tierra Gil is a 65-year-old female who presents to the ER via EMS due to unkept state and unable to care for self. She reports short term memory loss and did not take her medications this morning since she didn't have them and is unable to remember the last time she took them . She recently moved to [place], [place] but is unable to tell me for how long "maybe weeks". She has 2 daughters but does not have their numbers so unable to contact them. She doesn't know any other numbers she can call for a collateral history. Cannot remember her PCPs name. She reports being unable to care for herself at home and couldn't clean herself after having bowel movements. She also reports having nothing to eat at home. She is aware of some of her medical problems and medications including diabetes, IBS, Depression, anxiety, schizoaffective disorder and history of recurrent pulmonary emboli. PCP listed as Kevin Lainez who is a PA with psychiatry for [facility] but unfortunately it is currently outside of office hours to get more information. She denies any alcohol or illicit drug use. Smokes - unsure how much because she "gets them from the [facility]". She was recently in the ER 2 days previously which noted also recently being at [facility] and patient having minimal intake for past 24-48 hours, generalized myalgias and left shoulder pain (she notes chronic left shoulder arthritis). She was discharged home on that occasion. SARS-COV-2 negative and no respiratory symptoms since then. Thorough workup in the ER today was relatively unremarkable although UA pending (no urinary symptoms per patient). Unable to place the patient in rehabilitation from the ER therefore requested admission to medicine for ongoing management while awaiting placement in rehab. Principal Diagnosis Fatigue, failure to thrive Discharge Exam Constitutional WD/WN, vitals as above Respiratory normal respiratory effort, lungs clear to auscultation Cardiovascular RRR, no murmur, no edema Gastrointestinal (Abdomen) normal bowel sounds, soft, nontender, no hepatosplenomegaly Musculoskeletal no cyanosis or clubbing, extremities motor strength 5/5 Skin no rashes, warm and dry Neurologic moves all extremities and awake Psychiatric A+Ox3, euthymic affect Discharge Data Allergies Allergy/AdvReac Type Severity Reaction Status Date / Time egg AdvReac Severe Vomiting Unverified 10/27/20 12:34 Penicillins AdvReac Severe Vomiting Unverified 10/27/20 12:34 Consultations 10/27/20 14:12 ED Decision to Admit Stat 10/27/20 14:21 Consult Health Information Management Stat 10/27/20 17:17 Consult Case Management - Discharge Planning Routine 10/28/20 13:57 Consult Podiatry Routine 10/29/20 19:14 Consult Psychiatry Routine Ordered Studies 10/30/20 13:58 US gallbladder Urgent 10/31/20 09:17 CT abdomen w IV con Routine Diabetes Follow up Diabetes Follow-up Needed for HgbA1c >9% Hospital Course (1) Fatigue: IMPROVING * Admitted for failure to thrive and was found by EMS without food in refrigerator. Has not been receiving medications. Previously w/ waiver care bu t not sure when this stopped. CM assisting. Recently moved to [facility] * Likely combination of dehydration, lack of access to food/medications, iron deficiency anemia * Venofer x 3 during admission and continue oral supplementation * TSH 5.2H, likely reactive, T4 wnl 0.8 (low normal) - consider repeat in 3-4 weeks and initiate 25mcg levothyroxine daily if TFT abnormal * Depakote level wnl * Lyme negative * Procal negative * Ammonia 38.3 (ordered lactulose x 1 on 10/31), CK low Thiamine Deficiency B1 level <6 -- already started on thiamine but will increase to BID to be continued at discharge Anemia -- iron deficiency * MCV 77 and iron studies added to labs -- Iron 20 LOW, transferrin 258 wnl, Transferrin % sat 5 LOW, ferritin 11.6 * -- ordered Venofer IV 3 * Continue oral supplementation * CBC stable * PT/OT rec 24h care * CM assisting with placement at discharge-- [facility] (2) Abdominal pain: RESOLVED * Reported nausea but no pain, more "crampy" but was tender to palpation RUQ with elevated alk phos. Tbili wnl. ?bilary colic in pt with obesity and likely fatty live. Also has hypercalcemia -- discussed wtih Dr Gloria and will continue current plan and have outpt f/u for Vit D challenge. Would not give any while inpatient. Low Vit D, elevated PTH and calcium acceptable currently * Tbili wnl and no prior abd pain, however patient has not had BM for 2 days and received IV venofer 10/28. * Ordered US GB -- not seen * CTA/P with surgically absent GB * BM 11/01 -- resumed Questran per her request (3) Iron deficiency anemia: * See above under fatigue (4) Anxiety and depression: * Continue her routine mental health medication - see psych note for outpatient regimen -- adjustments made as below while inpatient * Quetiapine 400mg HS daily, escitalopram INCREASED to 20mg PO daily, buspirone 15mg PO TID, valproate 500mg PO TID (no Hx seizure disorder)--> will change to 1500mg HS * Psych consulted as patient with brief period of hallucination "seeing butterflies" as well as patient without medication compliance due to access at home -- appreciate assistance * Req outpatient records and to arrange follow up care once we know which facility patient going to * Increased clonazepam back to usual dose and anxiety resolved * Continue current regimen * Follow up with psychiatry - sees Kevin Lainez PA-C (5) Schizoaffective disorder: * as above (6) Diabetes: * HbA1C with AM labs -- 13.9 * Switch Basaglar 21 units daily to lantus 10 units BID - will give 30 units daily per pharmacy rec * Novolog: * for discharge - 6 units TID with ss as needed for hyperglycemia * Metformin at discharge * Pharmacy consulted for glycemic management -- had not been receiving her insulin [employer]. Need to increase insulin and add Metformin 500mg XR at discharge (changes already made on d/c instructions) * BSGs acceptable (7) Irritable bowel syndrome: * Continue her usual outpatient regimen with cholestyramine BID, pancreatic enzymes (?diagnosis of pancreatic insufficiency, no prior pancreatitis) and loperamide PRN. (8) Hypokalemia: RESOLVED * Replaced in ER and with IV fluids -- likely secondary to PO intake [employer] * K continues to be stable * BMP in AM (9) Microcytic anemia: * See above (10) Hypomagnesemia: * Mag 1.5 -- ordered 3gm IV * Mag wnl on repeat (11) Failure to thrive: * PT/OT/discharge planning for likely need for placement -- rec 24h care * CM assisting (12) History of pulmonary embolism: * Continue Xarelto 20mg PO daily (13) Tinea unguium: L toe pain * Xray with diffuse soft tissue swelling, no bony destruction to suggest osteoarthritis * Podiatry consult -- had toenails debrided * --> will need outpatient follow up for podiatric care (14) Hyperparathyroidism: -- unclear etiology Initially thought to be related to low Vit D, however Ca 9.3/Albumin 2.7, PTH elevated to 216.6. Nephrology consulted -- to have outpatient follow up. Agrees with current plan. NO supplementation until follow up in order to do a Vitamin D challenge (15) Vaginal pain: Patient reports she was being worked up for this outpatient. Would recommend close follow up with her government services professional Total Time Total Time Spent Total Time Spent (In Minutes): greater than 30 minutes Discharge Plan Discharge Items Patient Disposition: Transfer Halfway Fac Reason For Visit: FAILURE TO THRIVE, HYPOKALEMIA Discharge Diagnosis: Failure to Thrive, Thiamine Deficiency, Anemia Goals: You have been hospitalized for an acute medical problem. During your stay at [facility], we have made an effort to correct the problem that brought you to the hospital while keeping you as comfortable as possible. Medications were used to bring your condition under control and your discharge instructions will include directions for any medications you should take after leaving the hospital. Please make sure you see your Primary Care Provider as part of your follow up plan. Activity: As commented below Activity Comment: advance as tolerated with therapy Non-emergency contact: Primary Care Provider Call non-emergency contact if: you have any medication questions Follow-up/Referrals: Cayden Gloria DO [Physician] - (2 weeks -- hypercalcemia) Sindi Stout MD [Physician] - (1 month) Anita Samano DPM [Physician] - (1 month) Kevin Lainez M.P.ASushil [Primary Care Provider] - 11/13/20 10:30 am Diet: Carb Consistent or DM2 Addtl Attending Provider Instructions: 1) Fatigue: Improved Admitted for failure to thrive and was found by EMS without food in refrigerator. Had not been receiving medications. Previously w/ waiver care but not sure when this stopped. TSH 5.2H, likely reactive, T4 wnl 0.8 (low normal) - consider repeat in 3-4 weeks and initiate 25mcg levothyroxine daily if TFT abnormal Depakote level wnl Lyme negative Procal negative Ammonia 38.3 (given lactulose x 1 on 10/31), CK low Thiamine Deficiency B1 level <6 -- thiamine 100mg PO BID Anemia -- iron deficiency MCV 77 and iron studies added to labs -- Iron 20 LOW, transferrin 258 wnl, Transferrin % sat 5 LOW, ferritin 11.6 -- ordered Venofer IV 3 Continue oral supplementation (2) Abdominal pain: RESOLVED Reported nausea but no pain, more "crampy" but was tender to palpation RUQ with elevated alk phos. Patient with obesity and likely fatty liver. Also has hypercalcemia -- discussed wtih Dr Gloria and will continue current plan and have outpt f/u for Vit D challenge. Would not give any vitamin D supplementation until that time. Low Vit D, elevated PTH and calcium acceptable currently Ordered US GB -- not seen, CTA/P with surgically absent GB BM 11/01 -- resumed Questran per her request (3) Iron deficiency anemia: See above under fatigue (4) Anxiety and depression: Continue her routine mental health medication - see psych note for outpatient regimen -- adjustments made as below while inpatient Quetiapine 400mg HS daily, escitalopram INCREASED to 20mg PO daily, buspirone 15mg PO TID, valproate 500mg PO TID (no Hx seizure disorder)--> changed to 1500mg HS Psych consulted as patient with brief period of hallucination "seeing butterflies" as well as patient without medication compliance due to access at home -- appreciate assistance Will need follow up care with [facility] - she sees Kevin Lainez PA-C (5) Schizoaffective disorder: as above (6) Diabetes: A1c was elevated to above 13. Metformin 500mg was added daily daily at night to help gain better control. NovoLog 6 units SQ TIDM + Scale as needed for hyperglycemia NovoLog sliding scale to cover for meals Sliding scale as follows: * Blood Sugar 70-150 administer 0 units * Blood Sugar 151-200 administer 1 units * Blood Sugar 201-250 administer 3 units * Blood Sugar 251-300 administer 5 units * Blood Sugar 301-350 administer 7 units * Blood Sugar 351-400 administer 9 units * Blood Sugar >400 administer 11 units and call MD Mccall 30 units daily (7) Irritable bowel syndrome: Continue her usual outpatient regimen with cholestyramine BID, pancreatic enzymes (?diagnosis of pancreatic insufficiency, no prior pancreatitis) and loperamide PRN. (8) Hypokalemia: Resolved. (9) Microcytic anemia: See above (10) Hypomagnesemia: Resolved at 1.9. (11) Failure to thrive: Improved since admission. Mutifactorial. PT/OT/discharge planning for [facility] (12) History of pulmonary embolism: Continue Xarelto 20mg PO daily (13) Tinea unguium: L toe pain Xray with diffuse soft tissue swelling, no bony destruction to suggest osteoarthritis Podiatry consult 10/29 and had toenails debrided --> will need outpatient follow up for podiatric care (14) Hyperparathyroidism: Unclear etiology. Ca 9.0/Albumin 2.7, PTH elevated at 216.6. Nephrology consulted- recommends Vit D replacement to help unmask primary vs secondary PTH. Recommends DEXA scan as an outpatient as well. Vit D level 6.8. No supplementation until outpatient Vit D challenge with nephrology (15) Vaginal pain Patient reports she was recently seeing a government services professional in [place] for this workup. Please follow up with that office for further workup Patient will need close outpatient f/u with PCP, nephrology, gynecology, and psych. Pending Studies at Discharge: No Stand-Alone Forms: My [facility] [place] Skilled Items Patient informed of condition?: Yes DNR: No Discharge Level of Care: Skilled Communicable Disease: No Discharge Prognosis: Improving Lines: None Urinary Catheter: No Medications and DC Order Prescriptions: New tramadol 50 mg Tablet 50 mg PO Q4H PRN (Reason: pain) Qty: 7 RF: 0 escitalopram oxalate 20 mg Tablet 20 mg PO DAILY 30 Days Qty: 30 RF: 0 thiamine HCl (vitamin B1) [Vitamin B-1] 100 mg Tablet 100 mg PO BID Qty: 30 RF: 0 insulin aspart U-100 [Novolog Flexpen U-100 Insulin] 100 unit/mL (3 mL) Insulin Pen 1 unit SC ACHS Qty: 30 RF: 0 metformin 500 mg tablet extended release 24hr 500 mg PO PM Qty: 30 RF: 0 ferrous sulfate 325 mg (65 mg iron) tablet 325 mg PO Q OTHER DAY Qty: 30 RF: 0 Continued clonazepam 0.5 mg tablet 0.5 mg PO BID RF: 0 pantoprazole 40 mg tablet,delayed release (DR/EC) 40 mg PO DAILY RF: 0 furosemide 20 mg tablet 20 mg PO QAM RF: 0 gabapentin 100 mg capsule 100 mg PO TID RF: 0 buspirone 15 mg tablet 15 mg PO TID RF: 0 cholestyramine (with sugar) 4 gram powder in packet 1 ea PO BID RF: 0 Creon 12,000-38,000 -60,000 unit capsule,delayed release(DR/EC) 1 cap PO TID RF: 0 Xarelto 20 mg tablet 20 mg PO DAILY RF: 0 loperamide 2 mg Tablet 2 mg PO Q6H PRN (Reason: Diarrhea) RF: 0 Changed divalproex 500 mg tablet extended release 24 hr 1,500 mg PO HS Qty: 0 RF: 0 insulin aspart U-100 [Novolog Flexpen U-100 Insulin] 100 unit/mL (3 mL) insulin pen 6 unit SUBCUT TID Qty: 0 RF: 0 quetiapine 400 mg tablet 400 mg PO HS Qty: 0 RF: 0 Basaglar KwikPen U-100 Insulin 100 unit/mL (3 mL) insulin pen 30 unit SUBCUT DAILY Qty: 0 RF: 0 Discontinued escitalopram oxalate 10 mg tablet 10 mg PO DAILY RF: 0 Discharge Orders: Discharge Order (Routine); Ordered 11/04/20 Ordered By: Minda Maya/Other Patient Handouts: High Blood Sugar (Hyperglycemia), Hypoglycemia (Low Blood Sugar), Managing Type 2 Diabetes, 5 Steps for Eating Healthier Admission Data Admit Date/Time: 10/28/20 10:34 Attending Provider: Misael Parekh Admit Provider: Elmo Centeno Primary Care Provider: Kevin Lainez Other Providers: Elmo Centeno ; Anita Samano ; Eliceo, ; Sindi Stout Other Interventions: Discharge Summary Assessment (RN) Last Done: 11/04/20 14:04 Supervising Physician Co-Signing Physician Notes D/W BOLA Mcclure Patient seen and examined at bedside, obtained history and physical examination. I reviewed above note and agree with it. I discussed discharge plan with APC and patient. Her fatigued improved, and will recommend continuing her medications as per discharge instructions. Coding Level of Care Code D/C Day Management >30 mins Diagnoses Fatigue R53.83 Abdominal pain R10.9 Iron deficiency anemia D50.9 Anxiety and depression F41.9; F32.9 Schizoaffective disorder F25.9 Diabetes E11.9 Irritable bowel syndrome K58.9 Hypokalemia E87.6 Microcytic anemia D50.9 Hypomagnesemia E83.42 Failure to thrive R62.7 Failure to thrive age range: in adult History of pulmonary embolism Z86.711 Tinea unguium B35.1 Hyperparathyroidism E21.3 Vaginal pain R10.2
[2020-11-04] MEDS ORDERED: INSULIN GLARGINE SOLOSTAR 100 UNITS/ML 3 ML PEN SC SCH (21:00)
== END 2020-11-04 17:00 ==
LOC: 3N 11:46 → ED 11:46 → SUATTDRO 15:07 → 3N 16:44 → SUATTDRO 10-28 10:34

== ENCOUNTER 2021-03-18 14:34 | Observation (INO) ==
[2021-03-18] MEDS ORDERED: diphenhydrAMINE 50 MG/ML VIAL IV STA (16:10)
[2021-03-18] MEDS ORDERED: ONDANSETRON INJ 2 MG/ML 2 ML VIAL IV STA ×2 (16:10→19:43)
[2021-03-18] MEDS ORDERED: SODIUM CHLORIDE 0.9% 1000ML 1,000 ML IV ONE (16:10)
--- NOTE | 2021-03-18 16:34 | Emergency Department Note ---
Impression & Plan Acute dehydration, Vomiting and diarrhea, Hypomagnesemia, Weakness ED Provider Note NAME: SID JAVIER AGE: 65 SEX: F : 1955 ARRIVES VIA: Ambulance INFORMANT: [Patient] ED PROVIDER(S): [Amaury Adame MD] CHIEF COMPLAINT: Illness HISTORY OF PRESENT ILLNESS: The patient is a 65-year-old female presents with vomiting, diarrhea and sweating. She has been sneezing. The patient states this all started this morning, she felt fine yesterday. She has been sick now for three quarters of the day. She has no abdominal pain. There is no chest pain, no shortness of breath. She has not had any documented fever. No sick contacts. No bad food eaten. The patient has noticed some black stool, no blood in the vomitus. She has no history of GI bleeding. REVIEW OF SYSTEMS: See HPI for pertinent positives and negatives. A total of ten systems were reviewed and were otherwise negative. PMHx/PSHx: See Below SOCIAL HISTORY: See Below. PHYSICAL EXAM: GENERAL: Patient is in no acute distress. HEENT: No acute trauma, normocephalic atraumatic, mucous membranes moist, no nasal congestion, no scleral icterus. NECK: No stridor, no adenopathy, no meningismus, trachea is midline. LUNGS: Clear to auscultation bilaterally, no wheeze, no rhonchi, breath sounds equal. HEART: Mildly tachycardic, no murmurs, regular rhythm. ABDOMEN: Soft, nontender, bowel sounds positive, no hernias, no peritonitis. EXTREMITIES: No cyanosis or edema, full range of motion of all the joints without pain or difficulty, no signs for acute trauma. NEUROLOGIC: Oriented x 3, no acute motor or sensory deficits, no focal weakness. SKIN: No rash, no jaundice, no diaphoresis. Rectal: DIFFERENTIAL DIAGNOSIS: Appendicitis, ovarian cyst, ovarian torsion, infections, diverticulitis, UTI, obstruction, mesenteric ischemia, aortic pathology, foodborne or viral illness, GI bleeding, inflammatory bowel disease, renal colic, PUD, pancreatitis, biliary pathology, hernia, volvulus, constipation, as well as other pathologies. EMERGENCY DEPARTMENT COURSE/PROCEDURES: ECG: Indication was tachycardia. The ECG shows a sinus tachycardia with a rate of 114. There is a right bundle branch block. There is no ST elevation, no PVCs. The QTc is 487. ECG from 27 October 2020, the rate has increased. Continuous Cardiac Monitoring: An order was placed for continuous cardiac monitoring. The monitor shows a rate of 89 with normal sinus rhythm. MEDICAL DECISION MAKING: There is no leukocytosis or worrisome anemia. There is a normal platelet count. No kidney failure. Magnesium was low 1.6. There was a slight elevation to the alk phos, the bilirubin was normal. Urinalysis showed some ketones, no signs of infection. Valproic acid level was therapeutic. Covid and influenza testing were negative. The patient received IV saline, 1.5 L. She was given IV Zofran, IV Benadryl. She received additional IV Zofran for nausea control. She was given IV magnesium for the lower magnesium value. The patient is still nauseated and feeling poorly. She is not doing well with oral intake. She appears to have a viral or foodborne illness. There is nothing surgical by exam. I do not feel the need for an abdominal and pelvis CT. I did speak with the patient, I talked with case management. Given the circumstances, hospitalization is warranted. The on-call hospitalist was consulted. Past Med/Surg History Medical History Anxiety and depression Arthritis Diabetes GERD (gastroesophageal reflux disease) History of pulmonary embolism Irritable bowel syndrome Schizoaffective disorder Surgical History History of section x2 Social History Smoking Status: Current every day smoker Cigarettes Per Day: patient doesn't know; Second Hand Exposure: Yes; Hx Alcohol Use: No Hx Substance Use: No Preferred Language: Faroese Communication Ability: Effective Soft Drink Powder Mixer Required: No Beliefs That Will Affect Care: Jainism marital status: Unknown Current Living Situation: Alone Feels Safe at Home: Yes Assistive Devices: Walker Allergies Allergies Allergy/AdvReac Type Severity Reaction Status Date / Time egg AdvReac Severe Vomiting Unverified 03/18/21 15:19 Penicillins AdvReac Severe Vomiting Unverified 03/18/21 15:19 Home Meds Home Medications Medication Instructions Recorded Confirmed Creon 1 cap PO TID 10/25/20 03/18/21 Xarelto 20 mg PO QAM 10/25/20 03/18/21 buspirone 15 mg PO TID 10/25/20 03/18/21 cholestyramine (with sugar) 1 ea PO BID 10/25/20 03/18/21 clonazepam 0.5 mg PO BID 10/25/20 03/18/21 gabapentin 100 mg PO BID 10/25/20 03/18/21 pantoprazole 40 mg PO QAM 10/25/20 03/18/21 loperamide 2 mg PO Q6H PRN 10/27/20 03/18/21 cyanocobalamin (vitamin B-12) 1,000 mcg PO BID 03/18/21 03/18/21 [Vitamin B-12] escitalopram oxalate 20 mg PO QAM 03/18/21 03/18/21 gabapentin 200 mg PO HS 03/18/21 03/18/21 metformin 500 mg PO BID 03/18/21 03/18/21 ropinirole 0.5 mg PO HS 03/18/21 03/18/21 Previous Rx's Medication Instructions Recorded divalproex 1,500 mg PO HS #0 tab 11/01/20 ferrous sulfate 325 mg PO Q OTHER DAY #30 tab 11/01/20 insulin aspart U-100 [Novolog 1 unit SC ACHS #30 ml 11/01/20 Flexpen U-100 Insulin] insulin aspart U-100 [Novolog 6 unit SUBCUT TID #0 ml 11/01/20 Flexpen U-100 Insulin] quetiapine 400 mg PO HS #0 tab 11/01/20 thiamine HCl (vitamin B1) [Vitamin 100 mg PO BID #30 tab 11/01/20 B-1] tramadol 50 mg PO Q4H PRN #7 tab 11/01/20 Basaglar KwikPen U-100 Insulin 30 unit SUBCUT DAILY #0 ml 11/04/20 Results & Data (ED) Vital Signs Vital Signs - 24 hr 03/18/21 14:38 03/18/21 14:43 03/18/21 15:07 Temperature 37.0 C Temperature Source Oral Pulse Rate 114 H 89 114 H Pulse Rate from SpO2 Sensor Respiratory Rate 23 18 24 Respiratory Effort / Characteristics Non-Labored Respiratory Depth Normal Respiratory Pattern Regular Blood Pressure 108/82 108/82 Blood Pressure Mean 90 90 Blood Pressure Position Sitting Pulse Oximetry 93 Oxygen Delivery Method Room Air Sepsis Recent Fever Within 48 Hours No Sepsis New/Unexplained Change in Mental Status No Sepsis Action Taken by Nursing No Action Required 03/18/21 15:30 03/18/21 16:00 03/18/21 16:30 Temperature Temperature Source Pulse Rate 117 H 113 H 109 H Pulse Rate from SpO2 Sensor Respiratory Rate 24 23 24 Respiratory Effort / Characteristics Respiratory Depth Respiratory Pattern Blood Pressure Blood Pressure Mean Blood Pressure Position Pulse Oximetry Oxygen Delivery Method Sepsis Recent Fever Within 48 Hours Sepsis New/Unexplained Change in Mental Status Sepsis Action Taken by Nursing 03/18/21 16:56 03/18/21 17:00 03/18/21 17:11 Temperature Temperature Source Pulse Rate 99 H 99 H 96 H Pulse Rate from SpO2 Sensor Respiratory Rate 26 H 22 23 Respiratory Effort / Characteristics Respiratory Depth Respiratory Pattern Blood Pressure 118/76 104/78 104/78 Blood Pressure Mean 90 86 86 Blood Pressure Position Pulse Oximetry Oxygen Delivery Method Sepsis Recent Fever Within 48 Hours Sepsis New/Unexplained Change in Mental Status Sepsis Action Taken by Nursing 03/18/21 17:30 03/18/21 19:00 03/18/21 19:30 Temperature Temperature Source Pulse Rate 123 H 95 H 95 H Pulse Rate from SpO2 Sensor Respiratory Rate 25 H 22 24 Respiratory Effort / Characteristics Respiratory Depth Respiratory Pattern Blood Pressure 109/63 107/53 L Blood Pressure Mean 78 71 Blood Pressure Position Pulse Oximetry 97 96 Oxygen Delivery Method Room Air Room Air Sepsis Recent Fever Within 48 Hours Sepsis New/Unexplained Change in Mental Status Sepsis Action Taken by Nursing 03/18/21 20:00 03/18/21 20:37 03/18/21 21:00 Temperature Temperature Source Pulse Rate 94 H 91 H Pulse Rate from SpO2 Sensor 95 H 91 H Respiratory Rate 21 29 H 17 Respiratory Effort / Characteristics Non-Labored Spontaneous Respiratory Depth Normal Respiratory Pattern Regular Blood Pressure 104/54 L 123/80 126/59 L Blood Pressure Mean 70 94 81 Blood Pressure Position Pulse Oximetry 96 94 93 Oxygen Delivery Method Room Air Room Air Room Air Sepsis Recent Fever Within 48 Hours Sepsis New/Unexplained Change in Mental Status Sepsis Action Taken by Nursing 03/18/21 21:30 Temperature Temperature Source Pulse Rate 93 H Pulse Rate from SpO2 Sensor 94 H Respiratory Rate 20 Respiratory Effort / Characteristics Respiratory Depth Respiratory Pattern Blood Pressure 118/64 Blood Pressure Mean 82 Blood Pressure Position Pulse Oximetry 92 Oxygen Delivery Method Room Air Sepsis Recent Fever Within 48 Hours Sepsis New/Unexplained Change in Mental Status Sepsis Action Taken by Snf Medications Current Medication List: was personally reviewed by me Laboratory Data Attestation: I reviewed the patient's lab results. Result diagrams: 03/18/21 15:35 03/18/21 15:35 Lab Results 03/18/21 03/18/21 03/18/21 Range/Units 15:35 15:35 16:10 WBC 10.09 (4.8-10.8) K/uL RBC 5.34 (4.2-5.4) M/uL Hgb 16.8 H (12.0-16.0) g/dL Hct 49.4 H (37-47) % MCV 92.5 (80-100) fL MCH 31.5 (25-34) pg MCHC 34.0 (32-36) g/dL RDW Std Deviation 45.0 (36.4-46.3) fL RDW Coeff of [place] 13.3 (11.5-14.5) % Plt Count 204 (130-400) K/uL MPV 9.7 (7.4-10.4) fL Immature Gran % (Auto) 0.4 % Neut % (Auto) 79.7 % Lymph % (Auto) 10.4 % [place] % (Auto) 8.6 % Eos % (Auto) 0.8 % Baso % (Auto) 0.1 % Neut # (Auto) 8.04 H (1.4-6.5) K/uL Lymph # (Auto) 1.05 L (1.2-3.4) K/uL [place] # (Auto) 0.87 H (0.11-0.59) K/uL Eos # (Auto) 0.08 (0-0.5) K/uL Baso # (Auto) 0.01 (0-0.2) K/uL Immature Gran # (Auto) 0.04 H (0.00-0.02) K/uL Sodium 138 (136-145) mmol/L Potassium 4.7 (3.5-5.1) mmol/L Chloride 109 H (98-107) mmol/L Carbon Dioxide 22 (21-32) mmol/L Anion Gap 8.0 (3-11) BUN 10 (7-18) mg/dl Creatinine 0.77 (0.6-1.2) mg/dl Est Cr Clr Drug Dosing 83.2 ml/min Est GFR ( Amer) 95.2 Est GFR (Non-Af Amer) 82.2 BUN/Creatinine Ratio 12.7 (10-20) Glucose 108 H (70-99) mg/dl Calcium 9.8 (8.5-10.1) mg/dl Magnesium 1.6 L Cancelled (1.8-2.4) mg/dl Total Bilirubin 0.4 (0.2-1) mg/dl AST 10 L (15-37) U/L ALT 14 (12-78) U/L Alkaline Phosphatase 128 H (45-117) U/L Troponin I < 0.015 Cancelled (0-0.045) ng/ml Total Protein 7.6 (6.4-8.2) gm/dl Albumin 3.2 L (3.4-5.0) gm/dl Globulin 4.4 H (2.5-4.0) gm/dl Albumin/Globulin Ratio 0.7 L (0.9-2) Urine Color Urine Appearance (Clear) Urine pH (4.5-7.5) Ur Specific [place] (1.000-1.030) Urine Protein (Negative) Urine Glucose (UA) (Negative) Urine Ketones (Negative) Urine Blood (Negative) Urine Nitrite (Negative) Urine Bilirubin (Negative) Urine Urobilinogen (Negative) Ur Leukocyte Esterase (Negative) Urine WBC (Auto) (0-5) /hpf Urine RBC (Auto) (0-4) /hpf U Hyaline Cast (Auto) (0-5) /lpf U Epithel Cells (Auto) (0-5) /lpf Urine Bacteria (Auto) (Negative) Valproic Acid (50-100) mcg/ml COVID-19 Eval Order SARS-CoV-2 (PCR) (Negative) Influenza Type A (PCR) (Neg) Influenza Type B (PCR) (Neg) RSV (RT-PCR) (Neg) 03/18/21 03/18/21 03/18/21 Range/Units 16:10 16:50 16:50 WBC (4.8-10.8) K/uL RBC (4.2-5.4) M/uL Hgb (12.0-16.0) g/dL Hct (37-47) % MCV (80-100) fL MCH (25-34) pg MCHC (32-36) g/dL RDW Std Deviation (36.4-46.3) fL RDW Coeff of [place] (11.5-14.5) % Plt Count (130-400) K/uL MPV (7.4-10.4) fL Immature Gran % (Auto) % Neut % (Auto) % Lymph % (Auto) % [place] % (Auto) % Eos % (Auto) % Baso % (Auto) % Neut # (Auto) (1.4-6.5) K/uL Lymph # (Auto) (1.2-3.4) K/uL [place] # (Auto) (0.11-0.59) K/uL Eos # (Auto) (0-0.5) K/uL Baso # (Auto) (0-0.2) K/uL Immature Gran # (Auto) (0.00-0.02) K/uL Sodium (136-145) mmol/L Potassium (3.5-5.1) mmol/L Chloride (98-107) mmol/L Carbon Dioxide (21-32) mmol/L Anion Gap (3-11) BUN (7-18) mg/dl Creatinine (0.6-1.2) mg/dl Est Cr Clr Drug Dosing ml/min Est GFR ( Amer) Est GFR (Non-Af Amer) BUN/Creatinine Ratio (10-20) Glucose (70-99) mg/dl Calcium (8.5-10.1) mg/dl Magnesium (1.8-2.4) mg/dl Total Bilirubin (0.2-1) mg/dl AST (15-37) U/L ALT (12-78) U/L Alkaline Phosphatase (45-117) U/L Troponin I (0-0.045) ng/ml Total Protein (6.4-8.2) gm/dl Albumin (3.4-5.0) gm/dl Globulin (2.5-4.0) gm/dl Albumin/Globulin Ratio (0.9-2) Urine Color Urine Appearance (Clear) Urine pH (4.5-7.5) Ur Specific [place] (1.000-1.030) Urine Protein (Negative) Urine Glucose (UA) (Negative) Urine Ketones (Negative) Urine Blood (Negative) Urine Nitrite (Negative) Urine Bilirubin (Negative) Urine Urobilinogen (Negative) Ur Leukocyte Esterase (Negative) Urine WBC (Auto) (0-5) /hpf Urine RBC (Auto) (0-4) /hpf U Hyaline Cast (Auto) (0-5) /lpf U Epithel Cells (Auto) (0-5) /lpf Urine Bacteria (Auto) (Negative) Valproic Acid 58 (50-100) mcg/ml COVID-19 Eval Order [facility] at [facility] SARS-CoV-2 (PCR) NEGATIVE (Negative) Influenza Type A (PCR) Negative (Neg) Influenza Type B (PCR) Negative (Neg) RSV (RT-PCR) Negative (Neg) 03/18/21 Range/Units 17:30 WBC (4.8-10.8) K/uL RBC (4.2-5.4) M/uL Hgb (12.0-16.0) g/dL Hct (37-47) % MCV (80-100) fL MCH (25-34) pg MCHC (32-36) g/dL RDW Std Deviation (36.4-46.3) fL RDW Coeff of [place] (11.5-14.5) % Plt Count (130-400) K/uL MPV (7.4-10.4) fL Immature Gran % (Auto) % Neut % (Auto) % Lymph % (Auto) % [place] % (Auto) % Eos % (Auto) % Baso % (Auto) % Neut # (Auto) (1.4-6.5) K/uL Lymph # (Auto) (1.2-3.4) K/uL [place] # (Auto) (0.11-0.59) K/uL Eos # (Auto) (0-0.5) K/uL Baso # (Auto) (0-0.2) K/uL Immature Gran # (Auto) (0.00-0.02) K/uL Sodium (136-145) mmol/L Potassium (3.5-5.1) mmol/L Chloride (98-107) mmol/L Carbon Dioxide (21-32) mmol/L Anion Gap (3-11) BUN (7-18) mg/dl Creatinine (0.6-1.2) mg/dl Est Cr Clr Drug Dosing ml/min Est GFR ( Amer) Est GFR (Non-Af Amer) BUN/Creatinine Ratio (10-20) Glucose (70-99) mg/dl Calcium (8.5-10.1) mg/dl Magnesium (1.8-2.4) mg/dl Total Bilirubin (0.2-1) mg/dl AST (15-37) U/L ALT (12-78) U/L Alkaline Phosphatase (45-117) U/L Troponin I (0-0.045) ng/ml Total Protein (6.4-8.2) gm/dl Albumin (3.4-5.0) gm/dl Globulin (2.5-4.0) gm/dl Albumin/Globulin Ratio (0.9-2) Urine Color Yellow Urine Appearance Clear (Clear) Urine pH 5.0 (4.5-7.5) Ur Specific [place] 1.016 (1.000-1.030) Urine Protein Negative (Negative) Urine Glucose (UA) Negative (Negative) Urine Ketones 1+ H (Negative) Urine Blood Negative (Negative) Urine Nitrite Negative (Negative) Urine Bilirubin Negative (Negative) Urine Urobilinogen Negative (Negative) Ur Leukocyte Esterase 1+ H (Negative) Urine WBC (Auto) 1-5 (0-5) /hpf Urine RBC (Auto) 0-4 (0-4) /hpf U Hyaline Cast (Auto) 1-5 (0-5) /lpf U Epithel Cells (Auto) >30 H (0-5) /lpf Urine Bacteria (Auto) Negative (Negative) Valproic Acid (50-100) mcg/ml COVID-19 Eval Order SARS-CoV-2 (PCR) (Negative) Influenza Type A (PCR) (Neg) Influenza Type B (PCR) (Neg) RSV (RT-PCR) (Neg) Administered Medications Discontinued Medications Diphenhydramine HCl (Diphenhydramine 50 Mg/Ml Vial) 12.5 mg IV NOW STA Stop: 03/18/21 16:11 Last Admin: 03/18/21 16:46 Dose: 12.5 mg Documented by: [id number] Sodium Chloride (Nss 1000ml) 1,000 mls @ 999 mls/hr IV .Q1H1M ONE Stop: 03/18/21 17:10 Last Infusion: 03/18/21 18:27 Dose: 0 mls/hr Documented by: [id number] Admin: 03/18/21 16:46 Dose: 999 mls/hr Documented by: [id number] Magnesium Sulfate/Dextrose (Magnesium Sulfate / D5w) 1 gm in 100 mls @ 100 mls/hr IV NOW STA Stop: 03/18/21 19:10 Last Infusion: 03/18/21 19:45 Dose: 0 mls/hr Documented by: [id number] Admin: 03/18/21 18:34 Dose: 100 mls/hr Documented by: [id number] Sodium Chloride (Nss 1000ml) 500 mls @ 999 mls/hr IV .Q31M ONE Stop: 03/18/21 20:09 Last Infusion: 03/18/21 21:56 Dose: 0 mls/hr Documented by: [id number] Admin: 03/18/21 20:50 Dose: 999 mls/hr Documented by: [id number] Multivitamins 10 ml/ Thiamine HCl 100 mg/ Folic Acid 1 mg/Sodium Chloride 1,011.2 mls @ 1,011.2 mls/hr IV .Q1H ONE Stop: 03/18/21 22:15 Last Admin: 03/18/21 22:16 Dose: 1,011.2 mls/hr Documented by: [id number] Ondansetron HCl (Ondansetron Inj 2 Mg/Ml 2 Ml Vial) 4 mg IV NOW STA Stop: 03/18/21 16:11 Last Admin: 03/18/21 16:46 Dose: 4 mg Documented by: [id number] Ondansetron HCl (Ondansetron Inj 2 Mg/Ml 2 Ml Vial) 4 mg IV NOW STA Stop: 03/18/21 19:44 Last Admin: 03/18/21 20:50 Dose: 4 mg Documented by: [id number] Discharge Plan Visit Data Chief Complaint: Illness ED Provider: Amaury Adame Discharge Problem: Acute dehydration, Vomiting and diarrhea, Hypomagnesemia, Weakness Patient Disposition: Admitted As Inpatient Condition: Fair Forms Stand Alone Forms: [facility] Prescriptions Prescriptions: No Action clonazepam 0.5 mg tablet 0.5 mg PO BID RF: 0 pantoprazole 40 mg tablet,delayed release (DR/EC) 40 mg PO QAM RF: 0 gabapentin 100 mg capsule 100 mg PO BID RF: 0 buspirone 15 mg tablet 15 mg PO TID RF: 0 cholestyramine (with sugar) 4 gram powder in packet 1 ea PO BID RF: 0 Creon 12,000-38,000 -60,000 unit capsule,delayed release(DR/EC) 1 cap PO TID RF: 0 Xarelto 20 mg tablet 20 mg PO QAM RF: 0 loperamide 2 mg Tablet 2 mg PO Q6H PRN (Reason: Diarrhea) RF: 0 tramadol 50 mg Tablet 50 mg PO Q4H PRN (Reason: pain) Qty: 7 RF: 0 thiamine HCl (vitamin B1) [Vitamin B-1] 100 mg Tablet 100 mg PO BID Qty: 30 RF: 0 insulin aspart U-100 [Novolog Flexpen U-100 Insulin] 100 unit/mL (3 mL) Insulin Pen 1 unit SC ACHS Qty: 30 RF: 0 ferrous sulfate 325 mg (65 mg iron) tablet 325 mg PO Q OTHER DAY Qty: 30 RF: 0 divalproex 500 mg tablet extended release 24 hr 1,500 mg PO HS Qty: 0 RF: 0 insulin aspart U-100 [Novolog Flexpen U-100 Insulin] 100 unit/mL (3 mL) insulin pen 6 unit SUBCUT TID Qty: 0 RF: 0 quetiapine 400 mg tablet 400 mg PO HS Qty: 0 RF: 0 Basaglar KwikPen U-100 Insulin 100 unit/mL (3 mL) insulin pen 30 unit SUBCUT DAILY Qty: 0 RF: 0 cyanocobalamin (vitamin B-12) [Vitamin B-12] 1,000 mcg tablet 1,000 mcg PO BID RF: 0 ropinirole 0.5 mg tablet 0.5 mg PO HS RF: 0 gabapentin 100 mg capsule 200 mg PO HS RF: 0 escitalopram oxalate 20 mg tablet 20 mg PO QAM RF: 0 metformin 500 mg tablet extended release 24hr 500 mg PO BID RF: 0 Referrals Referrals: Jaspreet Logan DO [Primary Care Provider] -
[2021-03-18 17:37] LABS: Basophils # (auto) 0.01 K/uL (0-0.2); Basophils % (auto) 0.1 %; Eosinophils # (auto) 0.08 K/uL (0-0.5); Eosinophils % (auto) 0.8 %; Hematocrit (blood only) 49.4 % (37-47); Hemoglobin 16.8 g/dL (12.0-16.0); Immature Granulocytes # (auto) 0.04 K/uL (0.00-0.02); Immature Granulocytes % (auto) 0.4 %; Lymphocytes # (auto) 1.05 K/uL (1.2-3.4); Lymphocytes % (auto) 10.4 %; Mean Corpuscular Hemoglobin 31.5 pg (25-34); Mean Corpuscular Volume 92.5 fL (80-100); Mean Platelet Volume 9.7 fL (7.4-10.4); Monocytes # (auto) 0.87 K/uL (0.11-0.59); Monocytes % (auto) 8.6 %; Neutrophils # (auto) 8.04 K/uL (1.4-6.5); Neutrophils % (auto) 79.7 %; Platelet Count 204 K/uL (130-400); RDW Coefficient of Variation 13.3 % (11.5-14.5); Red Blood Count 5.34 M/uL (4.2-5.4); White Blood Count 10.09 K/uL (4.8-10.8)
[2021-03-18 17:47] LABS: Appearance Urine Clear (Clear); Bacteria Urine Automated Negative (Negative); Bilirubin Urine Negative (Negative); Blood Urine Negative (Negative); Color Urine Yellow; Epithelial Cell Urine Auto >30 /lpf (0-5); Glucose Urine UA Negative (Negative); Ketones Urine 1+ (Negative); Leukocyte Esterase Urine 1+ (Negative); Nitrite Urine Negative (Negative); Protein Urine Negative (Negative); Specific Gravity Urine 1.016 (1.000-1.030); Urobilinogen Urine Negative (Negative)
[2021-03-18 18:04] LABS: Alanine Aminotransferase 14 U/L (12-78); Albumin Level 3.2 gm/dl (3.4-5.0); Aspartate Aminotransferase 10 U/L (15-37); BUN Creatinine Ratio 12.7 (10-20); Blood Urea Nitrogen 10 mg/dl (7-18); Calcium 9.8 mg/dl (8.5-10.1); Carbon Dioxide 22 mmol/L (21-32); Chloride 109 mmol/L (98-107); Creatinine Clr Calc Pharmacy 83.2 ml/min; Est GFR (African American) 95.2; Est GFR (Non-African American) 82.2; Glucose 108 mg/dl (70-99); Magnesium 1.6 mg/dl (1.8-2.4); Potassium 4.7 mmol/L (3.5-5.1); Sodium 138 mmol/L (136-145)
[2021-03-18 18:07] LABS: Albumin Globulin Ratio 0.7 (0.9-2); Alkaline Phosphatase 128 U/L (45-117); Bilirubin,Total 0.4 mg/dl (0.2-1); Globulin 4.4 gm/dl (2.5-4.0); Total Protein 7.6 gm/dl (6.4-8.2); Troponin I < 0.015 ng/ml (0-0.045)
[2021-03-18] MEDS ORDERED: MAGNESIUM SULFATE / D5W 1 GM/100 ML BAG IV STA (18:11)
[2021-03-18 18:18] LABS: Influenza A virus by PCR Negative (Neg); Influenza B virus by PCR Negative (Neg); RSV by PCR Negative (Neg); SARS CoV2 RNA(COVID-19) InHosp NEGATIVE (Negative)
[2021-03-18 18:38] LABS: RBC Urine Automated 0-4 /hpf (0-4)
[2021-03-18] MEDS ORDERED: SODIUM CHLORIDE 0.9% 1000ML 500 ML IV ONE (19:39)
[2021-03-18] MEDS ORDERED: diphenhydrAMINE 50 MG/ML VIAL IV PRN (21:16)
[2021-03-18] MEDS ORDERED: MULTI-VITAMIN INFUSION 10 ML, THIAMINE HCL 100 MG, FOLIC ACID 1 MG in SODIUM CHLORIDE 0... IV ONE (21:16)
[2021-03-18] MEDS ORDERED: METOCLOPRAMIDE HCL INJ 5 MG/ML 2 ML VIAL IV PRN (21:16)
--- NOTE | 2021-03-18 21:17 | History & Physical Report ---
Date of Service March 18, 2021 Assessment & Plan (1) Vomiting and diarrhea: 65 yo F PMHx DM2 on insulin therapy, schizoaffective disorder (depressive type), anxiety, IBS, GERD, Hx PE on Xarelto admitted for suspected gastroenteritis, intractable nausea and vomiting. Gastroenteritis: Presents with one day of nausea, vomiting, diarrhea. History of eating 2 chili dogs yesterday; possible that she has food poisoning vs. viral gastroenteritis. No fevers at home or on admission. NPO for now, advance diet as tolerated. Medications for nausea as follows: Zofran first line, Benadryl second line, Reglan 3rd line. EKG if requiring Reglan given QTc 480 on admission EKG. Hypomagnesemia: Mg of 1.7 on admission; given 1g IV in ER. Repeat Mg with AM labs. DM2: HbA1C 10/2020 was 13.9. BSG on admission of 108. Repeat A1c ordered. Holding home DM2 medications. Insulin SSI while NPO; add basal insulin and titrate dosing when tolerating PO. Continue gabapentin for neuropathy. Hyperparathyroidism: History of, unclear etiology. Labwork from 10/2020: Ca 9.3/Albumin 2.7, PTH elevated at 216.6. Nephrology consulted during last admission and recommended Vitamin D supplementation and outpatient DEXA scan. Patient has not followed up on these recommendations. Vitamin D level ordered. Hx PE: History of PE many years ago, on Xarelto therapy. Continue. Schizoaffective disorder, anxiety: Continue home quetiapine, escitalopram, divalproex, buspirone, clonazepam. Tramadol home medication continued for pain. Code Status: FULL CODE FEN: NPO; advance diet as tolerated. DM2 diet when tolerating PO DVT ppx: Xarelto Dispo: Med/Surg (2) Hypomagnesemia: (3) Diabetes: (4) GERD (gastroesophageal reflux disease): (5) Schizoaffective disorder: (6) Anxiety and depression: (7) Hyperparathyroidism: History of Present Illness Chief Complaint: nausea, vomiting, diarrhea Primary Care Provider: Jaspreet Logan DO 65 yo F PMHx DM2 on insulin therapy, schizoaffective disorder (depressive type), anxiety, IBS. GERD, Hx PE on Xarelto presented to ER for 1 day of nausea, vomiting, and diarrhea. Reports that this AM at 5am when she woke up she had diarrhea and nausea, such that today she has been unable to keep anything down. She felt well yesterday. Yesterday she reports eating "4 tootsie rolls, a glass of cranberry juice, a glass of diet iced tea, and 2 chili dogs". Did not feel ill after any of her intake yesterday. Denies chest pain, SOB, abdominal pain, fevers, dizziness, headaches. In the ER had labwork which showed Mg 1.6, Alk Phos of 128, UA without infection, COVID 19 negative. Hospitalist service was consulted due to patient having nausea despite several doses of Zofran and Benadryl. Allergies Allergy/AdvReac Type Severity Reaction Status Date / Time egg AdvReac Severe Vomiting Unverified 03/18/21 15:19 Penicillins AdvReac Severe Vomiting Unverified 03/18/21 15:19 Home Medications Medication Instructions Recorded Confirmed Type Creon 1 cap PO TID 10/25/20 03/18/21 History Xarelto 20 mg PO QAM 10/25/20 03/18/21 History buspirone 15 mg PO TID 10/25/20 03/18/21 History cholestyramine (with sugar) 1 ea PO BID 10/25/20 03/18/21 History clonazepam 0.5 mg PO BID 10/25/20 03/18/21 History gabapentin 100 mg PO BID 10/25/20 03/18/21 History pantoprazole 40 mg PO QAM 10/25/20 03/18/21 History loperamide 2 mg PO Q6H PRN 10/27/20 03/18/21 History divalproex 1,500 mg PO HS #0 tab 11/01/20 03/18/21 Rx ferrous sulfate 325 mg PO Q OTHER DAY #30 tab 11/01/20 03/18/21 Rx insulin aspart U-100 [Novolog 1 unit SC ACHS #30 ml 11/01/20 03/18/21 Rx Flexpen U-100 Insulin] insulin aspart U-100 [Novolog 6 unit SUBCUT TID #0 ml 11/01/20 03/18/21 Rx Flexpen U-100 Insulin] quetiapine 400 mg PO HS #0 tab 11/01/20 03/18/21 Rx thiamine HCl (vitamin B1) [Vitamin 100 mg PO BID #30 tab 11/01/20 03/18/21 Rx B-1] tramadol 50 mg PO Q4H PRN #7 tab 11/01/20 03/18/21 Rx Basaglar BiancaikPen U-100 Insulin 30 unit SUBCUT DAILY #0 ml 11/04/20 03/18/21 Rx cyanocobalamin (vitamin B-12) 1,000 mcg PO BID 03/18/21 03/18/21 History [Vitamin B-12] escitalopram oxalate 20 mg PO QAM 03/18/21 03/18/21 History gabapentin 200 mg PO HS 03/18/21 03/18/21 History metformin 500 mg PO BID 03/18/21 03/18/21 History ropinirole 0.5 mg PO HS 03/18/21 03/18/21 History Past Med/Surg History Medical History Anxiety and depression Arthritis Diabetes GERD (gastroesophageal reflux disease) History of pulmonary embolism Irritable bowel syndrome Schizoaffective disorder Surgical History History of section x2 Social History Smoking Status: Current every day smoker Cigarettes Per Day: patient doesn't know; Second Hand Exposure: No; Do You Dip or Chew Tobacco: No; Tobacco Cessation Education Requested by Patient: No Hx Alcohol Use: No Hx Substance Use: No Preferred Language: French Communication Ability: Effective Sales Exhibitor Required: No Beliefs That Will Affect Care: None marital status: Unknown Current Living Situation: Alone Current Living Situation Comment: home health aides assist Other Information That Helps Us Care for You: No Feels Safe at Home: Yes Safety Concerns: Feels Safe At This Time Assistive Devices: Walker Review of Systems Review of Systems: All systems reviewed & are unremarkable except as noted in HPI & below Constitutional: no fever, no chills and no malaise Respiratory: no cough and no dyspnea Cardiovascular: no chest pain, no palpitations and no edema Gastrointestinal: + nausea, + vomiting and + diarrhea/loose stools; no abdominal pain and no constipation Genitourinary: no dysuria and no hematuria Physical Exam Constitutional: WD/WN, vitals as above Eyes: PERRL, conjunctivae normal, anicteric sclerae ENMT: external ear and nose normal, oropharynx normal Neck: normal visual inspection Respiratory: normal respiratory effort, lungs clear to auscultation Cardiovascular: RRR, no murmur, no edema Gastrointestinal (Abdomen): normal bowel sounds, soft, nontender, no hepatosplenomegaly Musculoskeletal: no cyanosis or clubbing, extremities motor strength 5/5 Skin: no rashes, warm and dry Neurologic: AAOx3, normal speech. Bilateral UE, LE, and face without sensory or motor deficits. No tremor. Psychiatric: A+Ox3, euthymic affect Results & Data Results & Data ([facility]) Vital Signs (Past 12 Hours) Vital Signs Temp Pulse Resp BP Pulse Ox 03/18/21 17:30 123 H 25 H 03/18/21 17:11 96 H 23 104/78 03/18/21 17:00 99 H 22 104/78 03/18/21 16:56 99 H 26 H 118/76 03/18/21 16:30 109 H 24 03/18/21 16:00 113 H 23 03/18/21 15:30 117 H 24 03/18/21 15:07 114 H 24 03/18/21 14:43 37.0 C 89 18 108/82 93 03/18/21 14:38 114 H 23 108/82 Laboratory Results Lab Results 03/18/21 03/18/21 03/18/21 Range/Units 15:35 15:35 16:10 WBC 10.09 (4.8-10.8) K/uL RBC 5.34 (4.2-5.4) M/uL Hgb 16.8 H (12.0-16.0) g/dL Hct 49.4 H (37-47) % MCV 92.5 (80-100) fL MCH 31.5 (25-34) pg MCHC 34.0 (32-36) g/dL RDW Std Deviation 45.0 (36.4-46.3) fL RDW Coeff of [place] 13.3 (11.5-14.5) % Plt Count 204 (130-400) K/uL MPV 9.7 (7.4-10.4) fL Immature Gran % (Auto) 0.4 % Neut % (Auto) 79.7 % Lymph % (Auto) 10.4 % Lewis % (Auto) 8.6 % Eos % (Auto) 0.8 % Baso % (Auto) 0.1 % Neut # (Auto) 8.04 H (1.4-6.5) K/uL Lymph # (Auto) 1.05 L (1.2-3.4) K/uL Lewis # (Auto) 0.87 H (0.11-0.59) K/uL Eos # (Auto) 0.08 (0-0.5) K/uL Baso # (Auto) 0.01 (0-0.2) K/uL Immature Gran # (Auto) 0.04 H (0.00-0.02) K/uL Sodium 138 (136-145) mmol/L Potassium 4.7 (3.5-5.1) mmol/L Chloride 109 H (98-107) mmol/L Carbon Dioxide 22 (21-32) mmol/L Anion Gap 8.0 (3-11) BUN 10 (7-18) mg/dl Creatinine 0.77 (0.6-1.2) mg/dl Est Cr Clr Drug Dosing 83.2 ml/min Est GFR ( Amer) 95.2 Est GFR (Non-Af Amer) 82.2 BUN/Creatinine Ratio 12.7 (10-20) Glucose 108 H (70-99) mg/dl POC Glucose (70-99) mg/dl Calcium 9.8 (8.5-10.1) mg/dl Magnesium 1.6 L Cancelled (1.8-2.4) mg/dl Total Bilirubin 0.4 (0.2-1) mg/dl AST 10 L (15-37) U/L ALT 14 (12-78) U/L Alkaline Phosphatase 128 H (45-117) U/L Troponin I < 0.015 Cancelled (0-0.045) ng/ml Total Protein 7.6 (6.4-8.2) gm/dl Albumin 3.2 L (3.4-5.0) gm/dl Globulin 4.4 H (2.5-4.0) gm/dl Albumin/Globulin Ratio 0.7 L (0.9-2) Urine Color Urine Appearance (Clear) Urine pH (4.5-7.5) Ur Specific [place] (1.000-1.030) Urine Protein (Negative) Urine Glucose (UA) (Negative) Urine Ketones (Negative) Urine Blood (Negative) Urine Nitrite (Negative) Urine Bilirubin (Negative) Urine Urobilinogen (Negative) Ur Leukocyte Esterase (Negative) Urine WBC (Auto) (0-5) /hpf Urine RBC (Auto) (0-4) /hpf U Hyaline Cast (Auto) (0-5) /lpf U Epithel Cells (Auto) (0-5) /lpf Urine Bacteria (Auto) (Negative) Valproic Acid (50-100) mcg/ml COVID-19 Eval Order SARS-CoV-2 (PCR) (Negative) Influenza Type A (PCR) (Neg) Influenza Type B (PCR) (Neg) RSV (RT-PCR) (Neg) 03/18/21 03/18/21 03/18/21 Range/Units 16:10 16:50 16:50 WBC (4.8-10.8) K/uL RBC (4.2-5.4) M/uL Hgb (12.0-16.0) g/dL Hct (37-47) % MCV (80-100) fL MCH (25-34) pg MCHC (32-36) g/dL RDW Std Deviation (36.4-46.3) fL RDW Coeff of [place] (11.5-14.5) % Plt Count (130-400) K/uL MPV (7.4-10.4) fL Immature Gran % (Auto) % Neut % (Auto) % Lymph % (Auto) % Lewis % (Auto) % Eos % (Auto) % Baso % (Auto) % Neut # (Auto) (1.4-6.5) K/uL Lymph # (Auto) (1.2-3.4) K/uL Lewis # (Auto) (0.11-0.59) K/uL Eos # (Auto) (0-0.5) K/uL Baso # (Auto) (0-0.2) K/uL Immature Gran # (Auto) (0.00-0.02) K/uL Sodium (136-145) mmol/L Potassium (3.5-5.1) mmol/L Chloride (98-107) mmol/L Carbon Dioxide (21-32) mmol/L Anion Gap (3-11) BUN (7-18) mg/dl Creatinine (0.6-1.2) mg/dl Est Cr Clr Drug Dosing ml/min Est GFR ( Amer) Est GFR (Non-Af Amer) BUN/Creatinine Ratio (10-20) Glucose (70-99) mg/dl POC Glucose (70-99) mg/dl Calcium (8.5-10.1) mg/dl Magnesium (1.8-2.4) mg/dl Total Bilirubin (0.2-1) mg/dl AST (15-37) U/L ALT (12-78) U/L Alkaline Phosphatase (45-117) U/L Troponin I (0-0.045) ng/ml Total Protein (6.4-8.2) gm/dl Albumin (3.4-5.0) gm/dl Globulin (2.5-4.0) gm/dl Albumin/Globulin Ratio (0.9-2) Urine Color Urine Appearance (Clear) Urine pH (4.5-7.5) Ur Specific [place] (1.000-1.030) Urine Protein (Negative) Urine Glucose (UA) (Negative) Urine Ketones (Negative) Urine Blood (Negative) Urine Nitrite (Negative) Urine Bilirubin (Negative) Urine Urobilinogen (Negative) Ur Leukocyte Esterase (Negative) Urine WBC (Auto) (0-5) /hpf Urine RBC (Auto) (0-4) /hpf U Hyaline Cast (Auto) (0-5) /lpf U Epithel Cells (Auto) (0-5) /lpf Urine Bacteria (Auto) (Negative) Valproic Acid 58 (50-100) mcg/ml COVID-19 Eval Order CovFluRsv at [facility] SARS-CoV-2 (PCR) NEGATIVE (Negative) Influenza Type A (PCR) Negative (Neg) Influenza Type B (PCR) Negative (Neg) RSV (RT-PCR) Negative (Neg) 03/18/21 03/18/21 Range/Units 17:30 23:01 WBC (4.8-10.8) K/uL RBC (4.2-5.4) M/uL Hgb (12.0-16.0) g/dL Hct (37-47) % MCV (80-100) fL MCH (25-34) pg MCHC (32-36) g/dL RDW Std Deviation (36.4-46.3) fL RDW Coeff of [place] (11.5-14.5) % Plt Count (130-400) K/uL MPV (7.4-10.4) fL Immature Gran % (Auto) % Neut % (Auto) % Lymph % (Auto) % Lewis % (Auto) % Eos % (Auto) % Baso % (Auto) % Neut # (Auto) (1.4-6.5) K/uL Lymph # (Auto) (1.2-3.4) K/uL Lewis # (Auto) (0.11-0.59) K/uL Eos # (Auto) (0-0.5) K/uL Baso # (Auto) (0-0.2) K/uL Immature Gran # (Auto) (0.00-0.02) K/uL Sodium (136-145) mmol/L Potassium (3.5-5.1) mmol/L Chloride (98-107) mmol/L Carbon Dioxide (21-32) mmol/L Anion Gap (3-11) BUN (7-18) mg/dl Creatinine (0.6-1.2) mg/dl Est Cr Clr Drug Dosing ml/min Est GFR ( Amer) Est GFR (Non-Af Amer) BUN/Creatinine Ratio (10-20) Glucose (70-99) mg/dl POC Glucose 132 H (70-99) mg/dl Calcium (8.5-10.1) mg/dl Magnesium (1.8-2.4) mg/dl Total Bilirubin (0.2-1) mg/dl AST (15-37) U/L ALT (12-78) U/L Alkaline Phosphatase (45-117) U/L Troponin I (0-0.045) ng/ml Total Protein (6.4-8.2) gm/dl Albumin (3.4-5.0) gm/dl Globulin (2.5-4.0) gm/dl Albumin/Globulin Ratio (0.9-2) Urine Color Yellow Urine Appearance Clear (Clear) Urine pH 5.0 (4.5-7.5) Ur Specific [place] 1.016 (1.000-1.030) Urine Protein Negative (Negative) Urine Glucose (UA) Negative (Negative) Urine Ketones 1+ H (Negative) Urine Blood Negative (Negative) Urine Nitrite Negative (Negative) Urine Bilirubin Negative (Negative) Urine Urobilinogen Negative (Negative) Ur Leukocyte Esterase 1+ H (Negative) Urine WBC (Auto) 1-5 (0-5) /hpf Urine RBC (Auto) 0-4 (0-4) /hpf U Hyaline Cast (Auto) 1-5 (0-5) /lpf U Epithel Cells (Auto) >30 H (0-5) /lpf Urine Bacteria (Auto) Negative (Negative) Valproic Acid (50-100) mcg/ml COVID-19 Eval Order SARS-CoV-2 (PCR) (Negative) Influenza Type A (PCR) (Neg) Influenza Type B (PCR) (Neg) RSV (RT-PCR) (Neg) Code Status & VTE Plan VTE Prophylaxis Plan VTE Prophylaxis will be ordered: Yes Supervising Physician Co-Signing Physician Notes Patient seen and examined, chart reviewed, case discussed with Dr. Carroll and I agree with her assessment and plan as above. In brief, patient is a 65yo C female presenting with one day of nausea, vomiting, diarrhea and PO intolerance On exam she is afebrile, HD stable Gen - nontoxic in appearance HEENT - NC/AT, PERRL, MMM Heart - +S1/S2, regular Lungs - CTA Abd - +BS, soft, NT/ND Ext - No edema Labs and images reviewed. Mg=1.6 [id number] Assessment/Plan -Conservative management with antiemetics, IVF and electrolyte repletion -Remainder of plan as above Resident Activity Tracking Resident Involvement: Resident Care Provided Care Provided: Adult Hospital Medicine (1) Diabetes Diabetes mellitus complication status: without complication Diabetes mellitus custodial insulin use: with laborer marine terminal use Diabetes mellitus type: type 2 Qualified Code(s): E11.9 - Type 2 diabetes mellitus without complications; Z79.4 - assistant terminal manager (current) use of insulin (2) Schizoaffective disorder Schizoaffective disorder type: depressive Qualified Code(s): F25.1 - Schizoaffective disorder, depressive type (3) GERD (gastroesophageal reflux disease) Esophagitis presence: without esophagitis Qualified Code(s): K21.9 - Gastro- esophageal reflux disease without esophagitis
[2021-03-18] MEDS ORDERED: CARBOHYDRATES FOR HYPOGLYCEMIA PO PRN (22:46)
[2021-03-18] MEDS ORDERED: GLUCOSE 40% GEL 15 GM TUBE PO PRN (22:46)
[2021-03-18] MEDS ORDERED: GLUCOSE 10 TABS/TUBE PO PRN (22:46)
[2021-03-18] MEDS ORDERED: GLUCAGON FOR INJ 1 MG VIAL SQ PRN (22:46)
[2021-03-18] MEDS ORDERED: DEXTROSE 50% 50 ML SYRINGE IV PRN (22:46)
[2021-03-18] MEDS: traMADol HCL 50 MG TABLET PO PRN (23:41)
[2021-03-19] MEDS ORDERED: Nursing to Pharmacy Communication SCH ×2 (00:45→15:45)
--- NOTE | 2021-03-19 01:50 | Billing Data ---
Date of Service March 18, 2021 Coding Level of Care Code 58281 OBS Care - Level 3
[2021-03-19] MEDS: ONDANSETRON INJ 2 MG/ML 2 ML VIAL IV PRN ×3 (04:46→19:42)
[2021-03-19] MEDS: INSULIN ASPART 100 UNITS/ML 3 ML PEN SC SCH ×4 (06:16→20:44)
[2021-03-19 06:37] LABS: Hemoglobin 13.5 g/dL (12.0-16.0); Mean Corpuscular Hemoglobin 32.1 pg (25-34); Mean Corpuscular Hgb Conc 34.6 g/dL (32-36); Mean Corpuscular Volume 92.9 fL (80-100); Mean Platelet Volume 9.7 fL (7.4-10.4); Platelet Count 227 K/uL (130-400); RDW Coefficient of Variation 13.3 % (11.5-14.5)
[2021-03-19 06:43] LABS: Estimated Average Glucose 140 mg/dl; Hemoglobin A1C 6.5 % (4.5-5.6)
[2021-03-19 07:05] LABS: Albumin Globulin Ratio 0.8 (0.9-2); Albumin Level 2.6 gm/dl (3.4-5.0); BUN Creatinine Ratio 12.2 (10-20); Bilirubin,Total 0.6 mg/dl (0.2-1); Calcium 8.1 mg/dl (8.5-10.1); Creatinine Clr Calc Pharmacy 101.4 ml/min; Est GFR (African American) 111.2; Globulin 3.3 gm/dl (2.5-4.0); Phosphorus 3.2 mg/dl (2.5-4.9); Potassium 3.7 mmol/L (3.5-5.1); Total Protein 5.9 gm/dl (6.4-8.2)
[2021-03-19] MEDS ORDERED: INSULIN ASPART 100 UNITS/ML 3 ML PEN SC SCH (07:30)
--- NOTE | 2021-03-19 08:31 | Electrocardiogram Report ---
Test Reason : Blood Pressure : / mmHG Vent. Rate : 114 BPM Atrial Rate : 114 BPM P-R Int : 148 ms QRS Dur : 126 ms QT Int : 354 ms P-R-T Axes : 046 129 007 degrees QTc Int : 487 ms Sinus tachycardia Right bundle branch block Abnormal ECG When compared with ECG of 27-OCT-2020 12:36, HR has increased by 33 bpm T wave inversion less evident in Inferior leads Confirmed by Ender Perdue ([id number]) on 03/19/2021 8:30:42 AM Referred By: ED Confirmed By:Ender Perdue
[2021-03-19] MEDS ORDERED: PANTOprazole 40 MG TAB PO SCH (09:00)
[2021-03-19] MEDS ORDERED: ESCITALOPRAM OXALATE 20 MG TAB PO SCH (09:00)
[2021-03-19] MEDS ORDERED: RIVAROXABAN 20 MG TAB PO SCH (09:00)
[2021-03-19] MEDS ORDERED: FERROUS SULFATE 325 MG TAB PO SCH (09:00)
[2021-03-19] MEDS: clonazePAM 0.5 MG TAB PO SCH ×2 (09:37→20:40)
[2021-03-19] MEDS: busPIRone 15 MG TAB PO SCH ×3 (09:38→20:40)
[2021-03-19] MEDS: THIAMINE HCL 100 MG TAB PO SCH ×2 (09:39→20:42)
[2021-03-19] MEDS: GABAPENTIN 100 MG CAP PO SCH ×2 (09:39→13:09)
[2021-03-19] MEDS: CYANOCOBALAMIN 500 MCG TABLET (VITAMIN B-12) PO SCH ×2 (09:39→20:40)
[2021-03-19] MEDS: SODIUM CHLORIDE 0.9% 1000ML 1,000 ML IV SCH ×2 (10:01→18:25)
--- NOTE | 2021-03-19 11:40 | Electrocardiogram Report ---
Test Reason : Blood Pressure : / mmHG Vent. Rate : 077 BPM Atrial Rate : 077 BPM P-R Int : 166 ms QRS Dur : 136 ms QT Int : 426 ms P-R-T Axes : 055 119 041 degrees QTc Int : 482 ms Normal sinus rhythm Right bundle branch block Abnormal ECG When compared with ECG of 18-MAR-2021 14:42, No significant change Confirmed by Jose Luis Billings ([id number]) on 03/19/2021 11:39:56 AM Referred By: REFERRED SELF Confirmed By:Jose Luis Billings
[2021-03-19] MEDS: CHOLESTYRAMINE LIGHT 4 GM PKT PO SCH ×3 (13:08→20:52)
--- NOTE | 2021-03-19 15:13 | Hospitalist Progress Note ---
Date of Service March 19, 2021 Assessment & Plan (1) Vomiting and diarrhea: 65 yo F with was admitted on 03/18/21 for evaluation of intractable nausea/vomiting and diarrhea. Nausea/Vomiting/Diarrhea - differential includes viral gastroenteritis vs. food poisoning - cautious use of anti-emetics given elongated QTc interval (480ms) on admission EKG. Repeat EKG daily - no risk factors for cdiff - IVF for fluid support. - if symptoms fail to resolve by tomorrow, will add stool studies Hypomagnesemia: resolved - Mg of 1.7 on admission; corrected with repletion DM2: well controlled - HbA1C 10/2020 was 13.9. A1c on admission was 6.5 - continue SSI insulin - patient is not on a high-intensity statin; consider adding as outpatient - Continue gabapentin for neuropathy Hx PE: - continue Xarelto Schizoaffective disorder, anxiety: - Continue home quetiapine, escitalopram, divalproex, buspirone, clonazepam. Code Status: FULL CODE FEN: full liquid; advance diet as tolerated. Carb consistent, DM2 DVT ppx: Xarelto Dispo: Med/Surg (2) Hypomagnesemia: (3) Diabetes: (4) GERD (gastroesophageal reflux disease): (5) Schizoaffective disorder: (6) Anxiety and depression: (7) Hyperparathyroidism: Admission and Anticipated Discharge Date Admission Date: March 18, 2021 Supervising Physician Co-Signing Physician Notes Resident Physician Supervision Note: I independently interviewed and examined the patient and verified the lopez history and physical, reviewed labs and image studies, discussed the case with the resident Dr. Stock and agree with the findings and care plan. Subjective Patient reports she is still very ill - ongoing nausea, although no episodes of vomiting since admission. She did have one episode of diarrhea overnight. Review of Systems Gastrointestinal: + nausea and + diarrhea/loose stools; no vomiting Physical Exam Constitutional: + ill appearing, + obese and cooperative Eyes: + anicteric sclerae ENMT: external ear and nose normal, oropharynx normal Neck: normal visual inspection and trachea midline Respiratory: normal respiratory effort, lungs clear to auscultation Cardiovascular: RRR, no murmur, no edema Heart Sounds: normal S1 and normal S2 Gastrointestinal (Abdomen): Inspection/Auscultation: abdomen normal to inspection and normal bowel sounds Percussion/Palpation: + abdomen tender (mild, diffusely throughout) and abdomen soft Skin: no rashes, warm and dry Psychiatric: A+Ox3, euthymic affect Results & Data Results & Data ([facility]) Vital Signs (Past 12 Hours) Vital Signs Temp Pulse Resp BP Pulse Ox 03/19/21 14:54 36.6 C 76 18 114/70 90 03/19/21 07:12 36.9 C 79 20 113/73 92 Resident Activity Tracking Resident Involvement: Resident Care Provided Care Provided: Adult Hospital Medicine (1) Diabetes Diabetes mellitus complication status: without complication Diabetes mellitus jail insulin use: with termite exterminator use Diabetes mellitus type: type 2 Qualified Code(s): E11.9 - Type 2 diabetes mellitus without complications; Z79.4 - snf (current) use of insulin (2) Schizoaffective disorder Schizoaffective disorder type: depressive Qualified Code(s): F25.1 - Schizoaffective disorder, depressive type (3) GERD (gastroesophageal reflux disease) Esophagitis presence: without esophagitis Qualified Code(s): K21.9 - Gastro- esophageal reflux disease without esophagitis
[2021-03-19] MEDS: traMADol HCL 50 MG TABLET PO PRN (18:32)
[2021-03-19] MEDS ORDERED: GABAPENTIN 100 MG CAP PO SCH (21:00)
[2021-03-19] MEDS ORDERED: QUEtiapine FUMARATE 200 MG TAB PO SCH (21:00)
[2021-03-19] MEDS ORDERED: DIVALPROEX EXTENDED RELEASE 500 MG TAB PO SCH (21:00)
[2021-03-19] MEDS ORDERED: rOPINIRole HCL 0.25 MG TABLET PO SCH (21:00)
[2021-03-20] MEDS: SODIUM CHLORIDE 0.9% 1000ML 1,000 ML IV SCH (02:22)
--- NOTE | 2021-03-20 06:54 | Discharge Summary ---
Date of Service March 20, 2021 Admission HPI Per Admitting Provider 65 yo F PMHx DM2 on insulin therapy, schizoaffective disorder (depressive type), anxiety, IBS. GERD, Hx PE on Xarelto presented to ER for 1 day of nausea, vomiting, and diarrhea. Reports that this AM at 5am when she woke up she had diarrhea and nausea, such that today she has been unable to keep anything down. She felt well yesterday. Yesterday she reports eating "4 tootsie rolls, a glass of cranberry juice, a glass of diet iced tea, and 2 chili dogs". Did not feel ill after any of her intake yesterday. Denies chest pain, SOB, abdominal pain, fevers, dizziness, headaches. In the ER had labwork which showed Mg 1.6, Alk Phos of 128, UA without infection, COVID 19 negative. Hospitalist service was consulted due to patient having nausea despite several doses of Zofran and Benadryl. Admission Exam Per Admitting Provider Constitutional: WD/WN, vitals as above Eyes: PERRL, conjunctivae normal, anicteric sclerae ENMT: external ear and nose normal, oropharynx normal Neck: normal visual inspection Respiratory: normal respiratory effort, lungs clear to auscultation Cardiovascular: RRR, no murmur, no edema Gastrointestinal (Abdomen): normal bowel sounds, soft, nontender, no hepatosplenomegaly Musculoskeletal: no cyanosis or clubbing, extremities motor strength 5/5 Skin: no rashes, warm and dry Neurologic: AAOx3, normal speech. Bilateral UE, LE, and face without sensory or motor deficits. No tremor. Psychiatric: A+Ox3, euthymic affect Principal Diagnosis Gastroenteritis Discharge Exam Constitutional + ill appearing, + obese and cooperative Eyes + anicteric sclerae ENMT external ear and nose normal, oropharynx normal Neck normal visual inspection and trachea midline Respiratory normal respiratory effort, lungs clear to auscultation Cardiovascular RRR, no murmur, no edema Heart Sounds: normal S1 and normal S2 Gastrointestinal (Abdomen) Inspection/Auscultation: abdomen normal to inspection and normal bowel sounds Percussion/Palpation: + abdomen tender (mild, diffusely throughout) and abdomen soft Skin no rashes, warm and dry Psychiatric A+Ox3, euthymic affect Discharge Data Allergies Allergy/AdvReac Type Severity Reaction Status Date / Time egg AdvReac Severe Vomiting Unverified 03/18/21 15:19 Penicillins AdvReac Severe Vomiting Unverified 03/18/21 15:19 Consultations 03/18/21 19:52 ED Decision to Admit Stat Hospital Course (1) Vomiting and diarrhea: 65 yo F with was admitted on 03/18/21 for evaluation of intractable nausea/vomiting and diarrhea. Nausea/Vomiting/Diarrhea - differential includes viral gastroenteritis vs. food poisoning - cautious use of anti-emetics given elongated QTc interval (480ms) on admission EKG - no risk factors for cdiff - IVF were administered for fluid support. - symptoms resolved with conservative measures Hypomagnesemia: resolved - Mg of 1.7 on admission; corrected with repletion DM2: well controlled - HbA1C 10/2020 was 13.9. A1c on this admission was 6.5 - continued SSI insulin - patient is not on a high-intensity statin - Continue gabapentin for neuropathy Outpatient items to do: Consider adding a high intensity statin Hx PE: - continue Xarelto Schizoaffective disorder, anxiety: - Continue home quetiapine, escitalopram, divalproex, buspirone, clonazepam. Low vitamin D level - patient reportedly has a history of hyperparathyroidism - normocalcemic on admission - Vitamin D level was checked and returned low at 15.7 - hyperparathyroidism may be secondary to low D level. recommend D repletion and outpatient follow-up Outpatient items to do: (2) Hypomagnesemia: (3) Diabetes: (4) GERD (gastroesophageal reflux disease): (5) Schizoaffective disorder: (6) Anxiety and depression: (7) Hyperparathyroidism: Total Time Total Time Spent Total Time Spent (In Minutes): see attending attestation Discharge Plan Discharge Items Patient Disposition: Home - Self-Care Reason For Visit: GASTROENTERITIS Discharge Diagnosis: Nausea/vomiting Condition on Discharge: Fair Activity: Resume your previous activity Non-emergency contact: Primary Care Provider Call non-emergency contact if: your symptoms worsen Follow-up/Referrals: Jaspreet Logan DO [Primary Care Provider] - 03/26/21 10:45 am Diet: Carb Consistent or DM2 Addtl Attending Provider Instructions: You were hospitalized at [facility] for evaluation of nausea, vomiting and diarrhea. Your symptoms were thought to be due to a viral gastroenteritis (a viral infection of your gastrointestinal tract) or food poisoning. Your white blood cell count was checked and it was normal, as well your kidney function. We treated you with IV fluids and anti-nausea medications. Your symptoms improved while under our care and you were able to eat and drink without recurrent vomiting or diarrhea. We also checked your hemoglobin A1c (marker of diabetes) while you were here, and it was 6.5, down from 13 in October 2020. This represents a marked improvement in your diabetes control! Please continue your current medication regimen. We recommend you continue to follow up with your primary care doctor for regular diabetes care. Your vitamin D level was also checked while you were in the hospital and it returned low - I would recommend you begin taking a supplementation of 2,000 IU each day. You can get this over the counter. Pending Studies at Discharge: No Stand-Alone Forms: [facility] [employer], Smoking Cessation Medications and DC Order Prescriptions: Continued clonazepam 0.5 mg tablet 0.5 mg PO BID RF: 0 pantoprazole 40 mg tablet,delayed release (DR/EC) 40 mg PO QAM RF: 0 gabapentin 100 mg capsule 100 mg PO BID RF: 0 buspirone 15 mg tablet 15 mg PO TID RF: 0 cholestyramine (with sugar) 4 gram powder in packet 1 ea PO BID RF: 0 Creon 12,000-38,000 -60,000 unit capsule,delayed release(DR/EC) 1 cap PO TID RF: 0 Xarelto 20 mg tablet 20 mg PO QAM RF: 0 loperamide 2 mg Tablet 2 mg PO Q6H PRN (Reason: Diarrhea) RF: 0 tramadol 50 mg Tablet 50 mg PO Q4H PRN (Reason: pain) Qty: 7 RF: 0 thiamine HCl (vitamin B1) [Vitamin B-1] 100 mg Tablet 100 mg PO BID Qty: 30 RF: 0 insulin aspart U-100 [Novolog Flexpen U-100 Insulin] 100 unit/mL (3 mL) Insulin Pen 1 unit SC ACHS Qty: 30 RF: 0 ferrous sulfate 325 mg (65 mg iron) tablet 325 mg PO Q OTHER DAY Qty: 30 RF: 0 divalproex 500 mg tablet extended release 24 hr 1,500 mg PO HS Qty: 0 RF: 0 insulin aspart U-100 [Novolog Flexpen U-100 Insulin] 100 unit/mL (3 mL) insulin pen 6 unit SUBCUT TID Qty: 0 RF: 0 quetiapine 400 mg tablet 400 mg PO HS Qty: 0 RF: 0 Basaglar KwikPen U-100 Insulin 100 unit/mL (3 mL) insulin pen 30 unit SUBCUT DAILY Qty: 0 RF: 0 cyanocobalamin (vitamin B-12) [Vitamin B-12] 1,000 mcg tablet 1,000 mcg PO BID RF: 0 ropinirole 0.5 mg tablet 0.5 mg PO HS RF: 0 gabapentin 100 mg capsule 200 mg PO HS RF: 0 escitalopram oxalate 20 mg tablet 20 mg PO QAM RF: 0 metformin 500 mg tablet extended release 24hr 500 mg PO BID RF: 0 Discharge Orders: Discharge Order (Routine); Ordered 03/20/21 Ordered By: Little Maya/Other Patient Handouts: High Blood Sugar (Hyperglycemia), Hypoglycemia (Low Blood Sugar), Managing Type 2 Diabetes, Managing Diabetes: The A1C Test Admission Data Admit Date/Time: 03/18/21 21:16 Attending Provider: Eliane Rodgers Admit Provider: Alyse Carroll Primary Care Provider: Jaspreet Logan Other Providers: Alysa Wagner Other Interventions: Discharge Summary Assessment (RN) Last Done: 03/20/21 08:06 Supervising Physician Co-Signing Physician Notes Resident Physician Supervision Note: I independently interviewed and examined the patient and verified the lopez history and physical, reviewed labs and image studies, discussed the case with the resident Dr. Stock and agree with the findings and care plan. Resident Activity Tracking Resident Involvement: Resident Care Provided Care Provided: Adult Hospital Medicine
--- NOTE | 2021-03-20 08:00 | Electrocardiogram Report ---
Test Reason : Blood Pressure : / mmHG Vent. Rate : 082 BPM Atrial Rate : 082 BPM P-R Int : 162 ms QRS Dur : 130 ms QT Int : 422 ms P-R-T Axes : 053 123 034 degrees QTc Int : 493 ms Normal sinus rhythm Right bundle branch block Abnormal ECG When compared with ECG of 19-MAR-2021 11:10, No significant change was found Confirmed by Ender Perdue ([id number]) on 03/20/2021 8:00:36 AM Referred By: REFERRED SELF Confirmed By:Ender Perdeu
== END 2021-03-20 09:00 | disposition home or self-care (01) ==
LOC: ED 14:34 → 3N 14:34 → SUATTDRO 21:16 → 3N 22:55

== ENCOUNTER 2021-04-26 21:28 | Inpatient (IN) ==
[2021-04-26] MEDS ORDERED: SODIUM CHLORIDE 0.9% 500 ML IV STA (21:53)
[2021-04-26 22:25] LABS: Basophils # (auto) 0.02 K/uL (0-0.2); Basophils % (auto) 0.1 %; Eosinophils # (auto) 0.12 K/uL (0-0.5); Eosinophils % (auto) 0.7 %; Hematocrit (blood only) 46.5 % (37-47); Hemoglobin 16.2 g/dL (12.0-16.0); Immature Granulocytes # (auto) 0.12 K/uL (0.00-0.02); Immature Granulocytes % (auto) 0.7 %; Lymphocytes # (auto) 2.31 K/uL (1.2-3.4); Lymphocytes % (auto) 13.3 %; Mean Corpuscular Hemoglobin 32.6 pg (25-34); Mean Corpuscular Hgb Conc 34.8 g/dL (32-36); Mean Corpuscular Volume 93.6 fL (80-100); Mean Platelet Volume 9.9 fL (7.4-10.4); Monocytes # (auto) 1.34 K/uL (0.11-0.59); Monocytes % (auto) 7.7 %; Neutrophils # (auto) 13.42 K/uL (1.4-6.5); Neutrophils % (auto) 77.5 %; Platelet Count 257 K/uL (130-400); RDW Coefficient of Variation 13.3 % (11.5-14.5); RDW Standard Deviation 45.5 fL (36.4-46.3); Red Blood Count 4.97 M/uL (4.2-5.4); White Blood Count 17.33 K/uL (4.8-10.8)
[2021-04-26] MEDS ORDERED: LORazepam 0.5 MG/1 ML VIAL IV STA (22:31)
[2021-04-26] MEDS ORDERED: ONDANSETRON INJ 2 MG/ML 2 ML VIAL IV STA ×2 (22:31→23:56)
[2021-04-26 22:43] LABS: Alanine Aminotransferase 15 U/L (12-78); Albumin Level 3.1 gm/dl (3.4-5.0); Aspartate Aminotransferase 14 U/L (15-37); BUN Creatinine Ratio 22.1 (10-20); Blood Urea Nitrogen 17 mg/dl (7-18); Carbon Dioxide 23 mmol/L (21-32); Chloride 103 mmol/L (98-107); Creatinine Clr Calc Pharmacy 84.9 ml/min; Est GFR (African American) 96.8 ml/min; Est GFR (Non-African American) 83.5 ml/min; Glucose 163 mg/dl (70-99); Lipase 389 U/L (73-393); Potassium 4.9 mmol/L (3.5-5.1); Sodium 136 mmol/L (136-145)
[2021-04-26] MEDS ORDERED: SODIUM CHLORIDE 0.9% 1000ML 1,000 ML IV SCH (22:45)
[2021-04-26 22:47] LABS: Albumin Globulin Ratio 0.7 (0.9-2); Alkaline Phosphatase 115 U/L (45-117); Bilirubin,Total 0.3 mg/dl (0.2-1); Globulin 4.6 gm/dl (2.5-4.0); Total Protein 7.7 gm/dl (6.4-8.2)
[2021-04-26] MEDS ORDERED: OPTIRAY 320 100ml IV ONE (22:48)
[2021-04-26 23:04] LABS: Appearance Urine Cloudy (Clear); Bilirubin Urine Negative (Negative); Blood Urine 2+ (Negative); Color Urine Yellow; Epithelial Cell Urine Auto >30 /lpf (0-5); Glucose Urine UA Negative (Negative); Ketones Urine Trace (Negative); Leukocyte Esterase Urine 2+ (Negative); Nitrite Urine Negative (Negative); Protein Urine Negative (Negative); Specific Gravity Urine 1.013 (1.000-1.030); Urobilinogen Urine Negative (Negative); WBC Urine Automated >30 /hpf (0-5); pH Urine 5.5 (4.5-7.5)
--- NOTE | 2021-04-26 23:11 | Emergency Department Note ---
History of Present Illness General Chief complaint: Vomiting Stated complaint: ILLNESS Time Seen by Provider: 04/26/21 22:24 History of Present Illness Provider complaint: Nausea and vomiting Onset (ago): day(s) 1 Maximum Pain Intensity: 0 Associated symptoms: + nausea/vomiting; no chest pain, no cough, no fever/chills, no headaches, no rash, no shortness of breath, no syncope and no weakness 65-year-old female presents emergency department with nausea vomiting. Patient reports she has been having nausea vomiting and diarrhea since last night when she ate hamburger helper. She states she vomited 5 times last night. She reports no hematemesis coffee-ground emesis or bilious vomiting. No melena or hematochezia. Patient reports she also started having difficulty breathing today. Patient states she has been compliant with all of her medications including her Xarelto. Patient does state that she is feeling very nervous right now and is asking for something for anxiety. Home Medications Medication Instructions Recorded Confirmed Type Creon 1 cap PO TID 10/25/20 04/26/21 History Xarelto 20 mg PO QAM 10/25/20 04/26/21 History buspirone 15 mg PO TID 10/25/20 04/26/21 History clonazepam 0.5 mg PO BID 10/25/20 04/26/21 History gabapentin See Rx Instructions .ROUTE .COMPLEX 10/25/20 04/26/21 History pantoprazole 40 mg PO QAM 10/25/20 04/26/21 History divalproex 1,500 mg PO HS #0 tab 11/01/20 04/26/21 Rx ferrous sulfate 325 mg PO Q OTHER DAY #30 tab 11/01/20 04/26/21 Rx quetiapine 400 mg PO HS #0 tab 11/01/20 04/26/21 Rx thiamine HCl (vitamin B1) [Vitamin 100 mg PO BID #30 tab 11/01/20 04/26/21 Rx B-1] cyanocobalamin (vitamin B-12) 1,000 mcg PO BID 03/18/21 04/26/21 History [Vitamin B-12] escitalopram oxalate 20 mg PO QAM 03/18/21 04/26/21 History metformin 500 mg PO BID 03/18/21 04/26/21 History ropinirole 0.5 mg PO HS 03/18/21 04/26/21 History Probiotic W/Cranberry 1 tab PO DAILY 04/26/21 04/26/21 History ibuprofen 200 mg PO DIRECTED PRN 04/26/21 04/26/21 History loratadine 10 mg PO QAM 04/26/21 04/26/21 History Allergies Allergy/AdvReac Type Severity Reaction Status Date / Time egg AdvReac Severe Vomiting Verified 04/26/21 22:19 Penicillins AdvReac Severe Vomiting Verified 04/26/21 22:19 Past Med/Surg History Medical History Anxiety and depression Arthritis Diabetes GERD (gastroesophageal reflux disease) History of pulmonary embolism Irritable bowel syndrome Schizoaffective disorder Surgical History History of section x2 Social History Smoking Status: Current every day smoker Tobacco Type: Cigarettes Cigarettes Per Day: patient doesn't know; Second Hand Exposure: No; Hx Alcohol Use: No Hx Substance Use: No Preferred Language: Palestinian Communication Ability: Effective Aircraft Assembler Required: No Beliefs That Will Affect Care: None marital status: Unknown Current Living Situation: Alone Current Living Situation Comment: home health aides assist How many Children do You have: 2 Feels Safe at Home: Yes Assistive Devices: Walker Review of Systems A total of 10 systems reviewed and were otherwise negative Physical Exam Vital Signs Vital Signs - 24 hr 04/26/21 21:30 04/26/21 21:57 04/27/21 00:00 Temperature 36.6 C Temperature Source Temporal Artery Scan Pulse Rate 116 H Pulse Rate [Apical] 96 H Respiratory Rate 16 18 Respiratory Depth Normal Blood Pressure 133/74 Blood Pressure [Left Arm] 147/78 H Blood Pressure Mean 93 Blood Pressure Mean [Left Arm] 101 Blood Pressure Position Sitting Pulse Oximetry 94 88 L 94 Oxygen Delivery Method Room Air Nasal Cannula Nasal Cannula Oxygen Flow Rate 2 Sepsis Recent Fever Within 48 Hours No Sepsis New/Unexplained Change in Mental Status No Sepsis Action Taken by Nursing No Action Required Oxygen Flow Rate - Titration 2 Pulse Oximetry Post Tiitration 95 Physical Exam HENT: Exam performed. -Head: Normocephalic and atraumatic. -Right Ear: External ear normal. No mastoid tenderness. -Left Ear: External ear normal. No mastoid tenderness. -Mouth/Throat: The oropharynx is clear and moist. No trismus in the jaw. No dental abscesses or uvula swelling. No oropharyngeal exudate or tonsillar abscesses. EYES: Conjunctivae and EOM are normal. Pupils are equal, round, and reactive to light. Right eye exhibits no discharge. Left eye exhibits no discharge. No scleral icterus. NECK: Normal range of motion. Neck supple. No JVD present. No spinous process tenderness present. No carotid bruit present. No rigidity. No tracheal deviation and normal range of motion present. No Brudzinski's sign and no Kernig's sign noted. CV: Normal rate, regular rhythm, normal heart sounds and intact distal pulses. There is no peripheral edema. Palpable radial pulses bue. PULM/CHEST: Rhonchi bilaterally. -Chest Wall: She exhibits no tenderness. ABD: The abdomen is soft. Bowel sounds are normal. She has no distension. No mass is present. There is no tenderness. There is no rebound, no guarding, no Duarte's sign and no tenderness at McBurney's point. Rovsig negative MUSC/SKEL: Normal range of motion. There is no peripheral edema, tenderness or deformity. LYMPH: No cervical adenopathy. NEURO: She is alert and oriented to person, place, and time. She has normal strength. No cranial nerve deficit or sensory deficit. Coordination and gait normal. GCS eye subscore is 4. GCS verbal subscore is 5. GCS motor subscore is 6. Cerebellar tests wnl. SKIN: Skin is warm and dry. She is not diaphoretic. PSYCH: Patient appears anxious. Course Course 2224: The patient was evaluated in room A3. A complete history and physical exam was performed Cardiac monitoring: An order was placed for continuous cardiac monitoring. The monitor shows a rate of 110 with sinus tachycardia rhythm Patient was found to be hypoxic on room air. Patient placed on 2 L nasal cannula which improved his oxygen saturation. 0035: Vital signs stable. Labs show a leukocytosis 17.3. Lactic acid elevated. CT imaging shows no acute process in the abdomen. Chest x-ray shows no acute infiltrate. Given the patient's history of vomiting, leukocytosis, lactic acidemia, and hypoxia, is thought that the patient is suffering from aspiration pneumonia. Patient be treated with Unasyn. Patient be admitted to the [facility] service Dr. Paiz notified. Administered Medications Sodium Chloride (Nss 1000ml) 1,000 mls @ 125 mls/hr IV .Q8H MARY Stop: 05/26/21 22:44 Last Admin: 04/26/21 22:43 Dose: 125 mls/hr Documented by: [id number] Ampicillin Sodium/Sulbactam Sodium 3,000 mg/ Sodium Chloride 108 mls @ 200 mls/hr IV NOW STA; Protocol Stop: 04/27/21 00:52 Last Admin: 04/27/21 00:37 Dose: 200 mls/hr Documented by: Discontinued Medications Sodium Chloride (Nss) 500 mls @ 999 mls/hr IV .Q31M STA Stop: 04/26/21 22:23 Last Admin: 04/26/21 22:18 Dose: 999 mls/hr Documented by: [id number] Lorazepam (Ativan) 0.5 mg in 1 mls @ 1 mls/min IV NOW STA Stop: 04/26/21 22:32 Last Admin: 04/26/21 22:44 Dose: 1 mls/min Documented by: [id number] Ioversol (Optiray 320 100ml) 94 ml IV ONCE ONE Stop: 04/26/21 22:49 Last Admin: 04/26/21 22:49 Dose: 1 ml Documented by: [id number] Ondansetron HCl (Ondansetron Inj 2 Mg/Ml 2 Ml Vial) 4 mg IV NOW STA Stop: 04/26/21 22:32 Last Admin: 04/26/21 22:43 Dose: 4 mg Documented by: [id number] Ondansetron HCl (Ondansetron Inj 2 Mg/Ml 2 Ml Vial) 4 mg IV NOW STA Stop: 04/26/21 23:57 Last Admin: 04/27/21 00:01 Dose: 4 mg Documented by: [id number] Critical Care Time Critical Care Time: Yes Total Critical Care Time: 63 I have personally spent greater than 63 minutes of critical care time in the direct management of this patient. This includes bedside care, interpretation of diagnostic studies, and testing, discussion with consultants, patient, and family members, and other required patient management activities. This 63 minutes is in excess of all separately billable procedures. Medical Decision Making Laboratory Data Result diagrams: 04/26/21 22:14 04/26/21 22:14 Lab Results 04/26/21 04/26/21 04/26/21 Range/Units 22:14 22:14 22:14 WBC 17.33 H (4.8-10.8) K/uL RBC 4.97 (4.2-5.4) M/uL Hgb 16.2 H (12.0-16.0) g/dL Hct 46.5 (37-47) % MCV 93.6 (80-100) fL MCH 32.6 (25-34) pg MCHC 34.8 (32-36) g/dL RDW Std Deviation 45.5 (36.4-46.3) fL RDW Coeff of [place] 13.3 (11.5-14.5) % Plt Count 257 (130-400) K/uL MPV 9.9 (7.4-10.4) fL Immature Gran % (Auto) 0.7 % Neut % (Auto) 77.5 % Lymph % (Auto) 13.3 % [place] % (Auto) 7.7 % Eos % (Auto) 0.7 % Baso % (Auto) 0.1 % Neut # (Auto) 13.42 H (1.4-6.5) K/uL Lymph # (Auto) 2.31 (1.2-3.4) K/uL [place] # (Auto) 1.34 H (0.11-0.59) K/uL Eos # (Auto) 0.12 (0-0.5) K/uL Baso # (Auto) 0.02 (0-0.2) K/uL Immature Gran # (Auto) 0.12 H (0.00-0.02) K/uL Sodium 136 (136-145) mmol/L Potassium 4.9 (3.5-5.1) mmol/L Chloride 103 (98-107) mmol/L Carbon Dioxide 23 (21-32) mmol/L Anion Gap 10.0 (3-11) BUN 17 (7-18) mg/dl Creatinine 0.76 (0.6-1.2) mg/dl Est Cr Clr Drug Dosing 84.9 ml/min Est GFR ( Amer) 96.8 ml/min Est GFR (Non-Af Amer) 83.5 ml/min BUN/Creatinine Ratio 22.1 H (10-20) Glucose 163 H (70-99) mg/dl Lactate (0.4-2.0) mmol/L Calcium 10.0 (8.5-10.1) mg/dl Total Bilirubin 0.3 (0.2-1) mg/dl AST 14 L (15-37) U/L ALT 15 (12-78) U/L Alkaline Phosphatase 115 (45-117) U/L Troponin I < 0.015 (0-0.045) ng/ml Total Protein 7.7 (6.4-8.2) gm/dl Albumin 3.1 L (3.4-5.0) gm/dl Globulin 4.6 H (2.5-4.0) gm/dl Albumin/Globulin Ratio 0.7 L (0.9-2) Lipase 389 (73-393) U/L Urine Color Yellow Urine Appearance Cloudy A (Clear) Urine pH 5.5 (4.5-7.5) Ur Specific Guy 1.013 (1.000-1.030) Urine Protein Negative (Negative) Urine Glucose (UA) Negative (Negative) Urine Ketones Trace H (Negative) Urine Blood 2+ H (Negative) Urine Nitrite Negative (Negative) Urine Bilirubin Negative (Negative) Urine Urobilinogen Negative (Negative) Ur Leukocyte Esterase 2+ H (Negative) Urine WBC (Auto) >30 H (0-5) /hpf Urine RBC (Auto) 0-4 (0-4) /hpf U Hyaline Cast (Auto) 5-10 H (0-5) /lpf U Epithel Cells (Auto) >30 H (0-5) /lpf Urine Bacteria (Auto) 2+ H (Negative) Uric Acid Crystals Present A (None Prsent) Granular Casts 1-5 H (0) /lpf Urine Mucus Present A (None Prsent) Urine Yeast Present A (None Prsent) 04/26/21 Range/Units 22:57 WBC (4.8-10.8) K/uL RBC (4.2-5.4) M/uL Hgb (12.0-16.0) g/dL Hct (37-47) % MCV (80-100) fL MCH (25-34) pg MCHC (32-36) g/dL RDW Std Deviation (36.4-46.3) fL RDW Coeff of [place] (11.5-14.5) % Plt Count (130-400) K/uL MPV (7.4-10.4) fL Immature Gran % (Auto) % Neut % (Auto) % Lymph % (Auto) % [place] % (Auto) % Eos % (Auto) % Baso % (Auto) % Neut # (Auto) (1.4-6.5) K/uL Lymph # (Auto) (1.2-3.4) K/uL [place] # (Auto) (0.11-0.59) K/uL Eos # (Auto) (0-0.5) K/uL Baso # (Auto) (0-0.2) K/uL Immature Gran # (Auto) (0.00-0.02) K/uL Sodium (136-145) mmol/L Potassium (3.5-5.1) mmol/L Chloride (98-107) mmol/L Carbon Dioxide (21-32) mmol/L Anion Gap (3-11) BUN (7-18) mg/dl Creatinine (0.6-1.2) mg/dl Est Cr Clr Drug Dosing ml/min Est GFR ( Amer) ml/min Est GFR (Non-Af Amer) ml/min BUN/Creatinine Ratio (10-20) Glucose (70-99) mg/dl Lactate 2.5 H* (0.4-2.0) mmol/L Calcium (8.5-10.1) mg/dl Total Bilirubin (0.2-1) mg/dl AST (15-37) U/L ALT (12-78) U/L Alkaline Phosphatase (45-117) U/L Troponin I (0-0.045) ng/ml Total Protein (6.4-8.2) gm/dl Albumin (3.4-5.0) gm/dl Globulin (2.5-4.0) gm/dl Albumin/Globulin Ratio (0.9-2) Lipase (73-393) U/L Urine Color Urine Appearance (Clear) Urine pH (4.5-7.5) Ur Specific Guy (1.000-1.030) Urine Protein (Negative) Urine Glucose (UA) (Negative) Urine Ketones (Negative) Urine Blood (Negative) Urine Nitrite (Negative) Urine Bilirubin (Negative) Urine Urobilinogen (Negative) Ur Leukocyte Esterase (Negative) Urine WBC (Auto) (0-5) /hpf Urine RBC (Auto) (0-4) /hpf U Hyaline Cast (Auto) (0-5) /lpf U Epithel Cells (Auto) (0-5) /lpf Urine Bacteria (Auto) (Negative) Uric Acid Crystals (None Prsent) Granular Casts (0) /lpf Urine Mucus (None Prsent) Urine Yeast (None Prsent) Imaging Data My Impression: No significant change from the x-ray in October 2020 Radiologist's Impression: Preliminary Findings Only See Final Report For Complete Findings CT ABDOMEN & PELVIS With Contrast: Compare: 10/31/2020 Left lower lung stable parenchymal pleural tag overlying the left hemidiaphragm. Mild diffuse fatty infiltration of liver. Status post cholecystectomy Sub-centimeters bilateral renal cortical cysts. Fluid in right colon with scattered left colonic stool. No inflammatory changes signs for obstruction. Status post hysterectomy Lower anterior abdominal wall post incisional scars. Mild thoracolumbar spine degenerative changes. Radiologist: Anibal Rodgers MD Study ready at 23:56 and initial results transmitted at 00:17 ECG Data Additional Comments: Sinus rhythm with a rate of 107. VT 154 QRS [address] elevation or ST depression. Right bundle branch block present. No significant change from the EKG in March 2021. [facility] Narrative 2224: The patient was evaluated in room A3. A complete history and physical exam was performed Cardiac monitoring: An order was placed for continuous cardiac monitoring. The monitor shows a rate of 110 with sinus tachycardia rhythm Patient was found to be hypoxic on room air. Patient placed on 2 L nasal cannula which improved his oxygen saturation. 0035: Vital signs stable. Labs show a leukocytosis 17.3. Lactic acid elevated. CT imaging shows no acute process in the abdomen. Chest x-ray shows no acute infiltrate. Given the patient's history of vomiting, leukocytosis, lactic acidemia, and hypoxia, is thought that the patient is suffering from aspiration pneumonia. Patient be treated with Un[facility]yn. [facility] Impression & Plan Aspiration pneumonia, Hypoxia Discharge Plan Visit Data Chief Complaint: Vomiting Stated Complaint: ILLNESS ED Provider: Alexandru Farris Discharge Problem: Aspiration pneumonia, Hypoxia Patient Disposition: Admitted As Inpatient Forms Stand Alone Forms: [facility] Prescriptions Prescriptions: No Action clonazepam 0.5 mg tablet 0.5 mg PO BID RF: 0 pantoprazole 40 mg tablet,delayed release (DR/EC) 40 mg PO QAM RF: 0 gabapentin 100 mg capsule See Rx Instructions .ROUTE .COMPLEX RF: 0 buspirone 15 mg tablet 15 mg PO TID RF: 0 Creon 12,000-38,000 -60,000 unit capsule,delayed release(DR/EC) 1 cap PO TID RF: 0 Xarelto 20 mg tablet 20 mg PO QAM RF: 0 thiamine HCl (vitamin B1) [Vitamin B-1] 100 mg Tablet 100 mg PO BID Qty: 30 RF: 0 ferrous sulfate 325 mg (65 mg iron) tablet 325 mg PO Q OTHER DAY Qty: 30 RF: 0 divalproex 500 mg tablet extended release 24 hr 1,500 mg PO HS Qty: 0 RF: 0 quetiapine 400 mg tablet 400 mg PO HS Qty: 0 RF: 0 cyanocobalamin (vitamin B-12) [Vitamin B-12] 1,000 mcg tablet 1,000 mcg PO BID RF: 0 ropinirole 0.5 mg tablet 0.5 mg PO HS RF: 0 escitalopram oxalate 20 mg tablet 20 mg PO QAM RF: 0 metformin 500 mg tablet extended release 24hr 500 mg PO BID RF: 0 ibuprofen 200 mg Tablet 200 mg PO DIRECTED PRN (Reason: Pain) RF: 0 loratadine 10 mg Tablet 10 mg PO QAM RF: 0 Probiotic W/Cranberry 1 tab PO DAILY RF: 0 Referrals Referrals: Jaspreet Logan DO [Primary Care Provider] - Discharge Problem: Aspiration pneumonia Qualifiers: Aspiration pneumonia type: unspecified Laterality: unspecified laterality Lung location: unspecified part of lung Qualified Code(s): J69.0 - Pneumonitis due to inhalation of food and vomit
[2021-04-26 23:17] LABS: Uric Acid Crystals Urine Present (None Prsent)
[2021-04-26 23:19] LABS: Mucus Urine Present (None Prsent); RBC Urine Automated 0-4 /hpf (0-4)
[2021-04-26 23:21] LABS: Bacteria Urine Automated 2+ (Negative)
[2021-04-26 23:28] LABS: Troponin I < 0.015 ng/ml (0-0.045)
[2021-04-27] MEDS ORDERED: AMPICILLIN/SULBACTAM SOD 3,000 MG in 0.9 % SODIUM CHLORIDE 100 ML IV STA (00:20)
--- NOTE | 2021-04-27 01:35 | History & Physical Report ---
Date of Service April 27, 2021 Assessment & Plan (1) Vomiting and diarrhea: Tierra Gil is a 65-year-old female with past medical history significant for type 2 diabetes, schizoaffective disorder (depressive type), irritable bowel syndrome, GERD, history of pulmonary embolism; who presents for concerns of new onset nausea, vomiting, diarrhea following eating hamburger helper yesterday. Gastroenteritis: -Presents with 1 day of nausea, vomiting, diarrhea -Has had multiple episodes similar to this over the last year -no fevers at home or on admission -CT abdomen pelvis demonstrating no acute findings -Given persistent diarrhea will order stool cultures -Continue Zofran first-line, Benadryl second line (EKG with QTC 480 on admission) Type 2 diabetes: -A1c on last admission 6.5 -Patient does not utilize medications at home nor check sugars -Has diabetic neuropathy utilizes gabapentin Schizoaffective disorder: -Continue home Seroquel, escitalopram, Depakote, BuSpar, clonazepam at this time Diet: Advance diet as tolerated CODE STATUS: Full code DVT prophylaxis: On home Xarelto for previous PE (2) Diabetes: (3) GERD (gastroesophageal reflux disease): (4) Schizoaffective disorder: History of Present Illness Primary Care Provider: Jaspreet Logan DO Tierra Gil is a 65-year-old female with past medical history significant for type 2 diabetes, schizoaffective disorder (depressive type), irritable bowel syndrome, GERD, history of pulmonary embolism; who presents for concerns of new onset nausea, vomiting, diarrhea following eating hamburger helper yesterday. Acknowledges that this is happened many times over the last several years as she continues to have issues intermittently with binging eating. However has not had this in the last month since recently being discharged from the hospital for similar kind of episodes. Overall has been feeling well, with the exception of at times feeling more short of breath. She attributes this to for consistent and persistent smoking, smoking handrolled cigarettes greater than 3 packs/day, she like this as it was limiting her food consumption and seemed to have helped control her diabetes. Currently feels overall well with some persistent nausea, vomiting, diarrhea at this time; denies chest pain, shortness of breath, wheeze, palpitations, lightheadedness, dizziness, fatigue. Allergies Allergy/AdvReac Type Severity Reaction Status Date / Time egg AdvReac Severe Vomiting Verified 04/26/21 22:19 Penicillins AdvReac Severe Vomiting Verified 04/26/21 22:19 Home Medications Medication Instructions Recorded Confirmed Type Creon 1 cap PO TID 10/25/20 04/26/21 History Xarelto 20 mg PO QAM 10/25/20 04/26/21 History buspirone 15 mg PO TID 10/25/20 04/26/21 History clonazepam 0.5 mg PO BID 10/25/20 04/26/21 History gabapentin See Rx Instructions .ROUTE .COMPLEX 10/25/20 04/26/21 History pantoprazole 40 mg PO QAM 10/25/20 04/26/21 History divalproex 1,500 mg PO HS #0 tab 11/01/20 04/26/21 Rx ferrous sulfate 325 mg PO Q OTHER DAY #30 tab 11/01/20 04/26/21 Rx quetiapine 400 mg PO HS #0 tab 11/01/20 04/26/21 Rx thiamine HCl (vitamin B1) [Vitamin 100 mg PO BID #30 tab 11/01/20 04/26/21 Rx B-1] cyanocobalamin (vitamin B-12) 1,000 mcg PO BID 03/18/21 04/26/21 History [Vitamin B-12] escitalopram oxalate 20 mg PO QAM 03/18/21 04/26/21 History metformin 500 mg PO BID 03/18/21 04/26/21 History ropinirole 0.5 mg PO HS 03/18/21 04/26/21 History Probiotic W/Cranberry 1 tab PO DAILY 04/26/21 04/26/21 History ibuprofen 200 mg PO DIRECTED PRN 04/26/21 04/26/21 History loratadine 10 mg PO QAM 04/26/21 04/26/21 History Past Med/Surg History Medical History Anxiety and depression Arthritis Diabetes GERD (gastroesophageal reflux disease) History of pulmonary embolism Irritable bowel syndrome Schizoaffective disorder Surgical History History of section x2 Social History Smoking Status: Current every day smoker Tobacco Type: Cigarettes Cigarettes Per Day: 3 packs; Second Hand Exposure: Yes; Do You Dip or Chew Tobacco: No; Hx Alcohol Use: No Hx Substance Use: No Preferred Language: Yemeni Communication Ability: Effective Shelf Filler Required: No Beliefs That Will Affect Care: None marital status: Unknown Current Living Situation: Alone Current Living Situation Comment: caregivers for few hours a day during week days How many Children do You have: 2 Other Information That Helps Us Care for You: No Feels Safe at Home: Yes Safety Concerns: Feels Safe At This Time Assistive Devices: Oxygen - Continuous Review of Systems Review of Systems: All systems reviewed & are unremarkable except as noted in HPI & below Physical Exam Constitutional: WD/WN, vitals as above Eyes: PERRL, conjunctivae normal, anicteric sclerae Respiratory: normal respiratory effort, lungs clear to auscultation Auscultation: + rhonchi and + wheezes; no crackles and no rales Cardiovascular: Rate/Rhythm: regular rate and regular rhythm Heart Sounds: no gallop, no murmur and no cardiac rub Vessels: normal peripheral pulses; no JVD Extremities: no edema Gastrointestinal (Abdomen): Inspection/Auscultation: normal bowel sounds; abdomen not distended Percussion/Palpation: + abdomen tender, abdomen soft and normal to percussion; no guarding Musculoskeletal: no cyanosis or clubbing, extremities motor strength 5/5 Skin: no rashes, warm and dry Neurologic: PERRL, EOMI, accommodation nl, no face palsy, no dysarthria CN's II-XI intact bilaterally and moves all extremities Psychiatric: Orientation: alert and oriented x 3 Results & Data Results & Data ([facility]) Vital Signs (Past 12 Hours) Vital Signs Temp Pulse Pulse Resp BP BP Pulse Ox 04/27/21 00:00 96 H 18 147/78 H 94 04/26/21 21:57 88 L 04/26/21 21:30 36.6 C 116 H 16 133/74 94 Laboratory Results 04/27/21 04/27/21 04/27/21 Range/Units 01:01 00:39 00:39 WBC (4.8-10.8) K/uL RBC (4.2-5.4) M/uL Hgb (12.0-16.0) g/dL Hct (37-47) % MCV (80-100) fL MCH (25-34) pg MCHC (32-36) g/dL RDW Std Deviation (36.4-46.3) fL RDW Coeff of [place] (11.5-14.5) % Plt Count (130-400) K/uL MPV (7.4-10.4) fL Immature Gran % (Auto) % Neut % (Auto) % Lymph % (Auto) % [place] % (Auto) % Eos % (Auto) % Baso % (Auto) % Neut # (Auto) (1.4-6.5) K/uL Lymph # (Auto) (1.2-3.4) K/uL [place] # (Auto) (0.11-0.59) K/uL Eos # (Auto) (0-0.5) K/uL Baso # (Auto) (0-0.2) K/uL Immature Gran # (Auto) (0.00-0.02) K/uL Sodium (136-145) mmol/L Potassium (3.5-5.1) mmol/L Chloride (98-107) mmol/L Carbon Dioxide (21-32) mmol/L Anion Gap (3-11) BUN (7-18) mg/dl Creatinine (0.6-1.2) mg/dl Est Cr Clr Drug Dosing ml/min Est GFR ( Amer) ml/min Est GFR (Non-Af Amer) ml/min BUN/Creatinine Ratio (10-20) Glucose (70-99) mg/dl Lactate Pending (0.4-2.0) mmol/L Calcium (8.5-10.1) mg/dl Total Bilirubin (0.2-1) mg/dl AST (15-37) U/L ALT (12-78) U/L Alkaline Phosphatase (45-117) U/L Troponin I (0-0.045) ng/ml Total Protein (6.4-8.2) gm/dl Albumin (3.4-5.0) gm/dl Globulin (2.5-4.0) gm/dl Albumin/Globulin Ratio (0.9-2) Lipase (73-393) U/L Urine Color Urine Appearance (Clear) Urine pH (4.5-7.5) Ur Specific [place] (1.000-1.030) Urine Protein (Negative) Urine Glucose (UA) (Negative) Urine Ketones (Negative) Urine Blood (Negative) Urine Nitrite (Negative) Urine Bilirubin (Negative) Urine Urobilinogen (Negative) Ur Leukocyte Esterase (Negative) Urine WBC (Auto) (0-5) /hpf Urine RBC (Auto) (0-4) /hpf U Hyaline Cast (Auto) (0-5) /lpf U Epithel Cells (Auto) (0-5) /lpf Urine Bacteria (Auto) (Negative) Uric Acid Crystals (None Prsent) Granular Casts (0) /lpf Urine Mucus (None Prsent) Urine Yeast (None Prsent) COVID-19 Eval Order Covid19 at [facility] SARS-CoV-2 (PCR) Pending 04/26/21 04/26/21 04/26/21 Range/Units 22:57 22:14 22:14 WBC (4.8-10.8) K/uL RBC (4.2-5.4) M/uL Hgb (12.0-16.0) g/dL Hct (37-47) % MCV (80-100) fL MCH (25-34) pg MCHC (32-36) g/dL RDW Std Deviation (36.4-46.3) fL RDW Coeff of [place] (11.5-14.5) % Plt Count (130-400) K/uL MPV (7.4-10.4) fL Immature Gran % (Auto) % Neut % (Auto) % Lymph % (Auto) % [place] % (Auto) % Eos % (Auto) % Baso % (Auto) % Neut # (Auto) (1.4-6.5) K/uL Lymph # (Auto) (1.2-3.4) K/uL [place] # (Auto) (0.11-0.59) K/uL Eos # (Auto) (0-0.5) K/uL Baso # (Auto) (0-0.2) K/uL Immature Gran # (Auto) (0.00-0.02) K/uL Sodium 136 (136-145) mmol/L Potassium 4.9 (3.5-5.1) mmol/L Chloride 103 (98-107) mmol/L Carbon Dioxide 23 (21-32) mmol/L Anion Gap 10.0 (3-11) BUN 17 (7-18) mg/dl Creatinine 0.76 (0.6-1.2) mg/dl Est Cr Clr Drug Dosing 84.9 ml/min Est GFR ( Amer) 96.8 ml/min Est GFR (Non-Af Amer) 83.5 ml/min BUN/Creatinine Ratio 22.1 H (10-20) Glucose 163 H (70-99) mg/dl Lactate 2.5 H* (0.4-2.0) mmol/L Calcium 10.0 (8.5-10.1) mg/dl Total Bilirubin 0.3 (0.2-1) mg/dl AST 14 L (15-37) U/L ALT 15 (12-78) U/L Alkaline Phosphatase 115 (45-117) U/L Troponin I < 0.015 (0-0.045) ng/ml Total Protein 7.7 (6.4-8.2) gm/dl Albumin 3.1 L (3.4-5.0) gm/dl Globulin 4.6 H (2.5-4.0) gm/dl Albumin/Globulin Ratio 0.7 L (0.9-2) Lipase 389 (73-393) U/L Urine Color Yellow Urine Appearance Cloudy A (Clear) Urine pH 5.5 (4.5-7.5) Ur Specific [place] 1.013 (1.000-1.030) Urine Protein Negative (Negative) Urine Glucose (UA) Negative (Negative) Urine Ketones Trace H (Negative) Urine Blood 2+ H (Negative) Urine Nitrite Negative (Negative) Urine Bilirubin Negative (Negative) Urine Urobilinogen Negative (Negative) Ur Leukocyte Esterase 2+ H (Negative) Urine WBC (Auto) >30 H (0-5) /hpf Urine RBC (Auto) 0-4 (0-4) /hpf U Hyaline Cast (Auto) 5-10 H (0-5) /lpf U Epithel Cells (Auto) >30 H (0-5) /lpf Urine Bacteria (Auto) 2+ H (Negative) Uric Acid Crystals Present A (None Prsent) Granular Casts 1-5 H (0) /lpf Urine Mucus Present A (None Prsent) Urine Yeast Present A (None Prsent) COVID-19 Eval Order SARS-CoV-2 (PCR) 04/26/21 Range/Units 22:14 WBC 17.33 H (4.8-10.8) K/uL RBC 4.97 (4.2-5.4) M/uL Hgb 16.2 H (12.0-16.0) g/dL Hct 46.5 (37-47) % MCV 93.6 (80-100) fL MCH 32.6 (25-34) pg MCHC 34.8 (32-36) g/dL RDW Std Deviation 45.5 (36.4-46.3) fL RDW Coeff of [place] 13.3 (11.5-14.5) % Plt Count 257 (130-400) K/uL MPV 9.9 (7.4-10.4) fL Immature Gran % (Auto) 0.7 % Neut % (Auto) 77.5 % Lymph % (Auto) 13.3 % [place] % (Auto) 7.7 % Eos % (Auto) 0.7 % Baso % (Auto) 0.1 % Neut # (Auto) 13.42 H (1.4-6.5) K/uL Lymph # (Auto) 2.31 (1.2-3.4) K/uL [place] # (Auto) 1.34 H (0.11-0.59) K/uL Eos # (Auto) 0.12 (0-0.5) K/uL Baso # (Auto) 0.02 (0-0.2) K/uL Immature Gran # (Auto) 0.12 H (0.00-0.02) K/uL Sodium (136-145) mmol/L Potassium (3.5-5.1) mmol/L Chloride (98-107) mmol/L Carbon Dioxide (21-32) mmol/L Anion Gap (3-11) BUN (7-18) mg/dl Creatinine (0.6-1.2) mg/dl Est Cr Clr Drug Dosing ml/min Est GFR ( Amer) ml/min Est GFR (Non-Af Amer) ml/min BUN/Creatinine Ratio (10-20) Glucose (70-99) mg/dl Lactate (0.4-2.0) mmol/L Calcium (8.5-10.1) mg/dl Total Bilirubin (0.2-1) mg/dl AST (15-37) U/L ALT (12-78) U/L Alkaline Phosphatase (45-117) U/L Troponin I (0-0.045) ng/ml Total Protein (6.4-8.2) gm/dl Albumin (3.4-5.0) gm/dl Globulin (2.5-4.0) gm/dl Albumin/Globulin Ratio (0.9-2) Lipase (73-393) U/L Urine Color Urine Appearance (Clear) Urine pH (4.5-7.5) Ur Specific [place] (1.000-1.030) Urine Protein (Negative) Urine Glucose (UA) (Negative) Urine Ketones (Negative) Urine Blood (Negative) Urine Nitrite (Negative) Urine Bilirubin (Negative) Urine Urobilinogen (Negative) Ur Leukocyte Esterase (Negative) Urine WBC (Auto) (0-5) /hpf Urine RBC (Auto) (0-4) /hpf U Hyaline Cast (Auto) (0-5) /lpf U Epithel Cells (Auto) (0-5) /lpf Urine Bacteria (Auto) (Negative) Uric Acid Crystals (None Prsent) Granular Casts (0) /lpf Urine Mucus (None Prsent) Urine Yeast (None Prsent) COVID-19 Eval Order SARS-CoV-2 (PCR) Diagnostic Findings CT ABDOMEN & PELVIS With Contrast: Compare: 10/31/2020 Left lower lung stable parenchymal pleural tag overlying the left hemidiaphragm. Mild diffuse fatty infiltration of liver. Status post cholecystectomy Sub-centimeters bilateral renal cortical cysts. Fluid in right colon with scattered left colonic stool. No inflammatory changes signs for obstruction. Status post hysterectomy Lower anterior abdominal wall post incisional scars. Mild thoracolumbar spine degenerative changes. Radiologist: Anibal Rodgers MD Medications Administered Home Medication List Medication Instructions Recorded Creon 1 cap PO TID 10/25/20 Xarelto 20 mg PO QAM 10/25/20 buspirone 15 mg PO TID 10/25/20 clonazepam 0.5 mg PO BID 10/25/20 gabapentin See Rx Instructions .ROUTE .COMPLEX 10/25/20 pantoprazole 40 mg PO QAM 10/25/20 divalproex 1,500 mg PO HS #0 tab 11/01/20 ferrous sulfate 325 mg PO Q OTHER DAY #30 tab 11/01/20 quetiapine 400 mg PO HS #0 tab 11/01/20 thiamine HCl (vitamin B1) [Vitamin 100 mg PO BID #30 tab 11/01/20 B-1] cyanocobalamin (vitamin B-12) 1,000 mcg PO BID 03/18/21 [Vitamin B-12] escitalopram oxalate 20 mg PO QAM 03/18/21 metformin 500 mg PO BID 03/18/21 ropinirole 0.5 mg PO HS 03/18/21 Probiotic W/Cranberry 1 tab PO DAILY 04/26/21 ibuprofen 200 mg PO DIRECTED PRN 04/26/21 loratadine 10 mg PO QAM 04/26/21 Supervising Physician Co-Signing Physician Notes Attending addendum: I have physically seen this patient, have supervised the medical residents activities, and agree with the H&P unless as otherwise noted. Assessment and Plan: Acute gastroenteritis/nausea, vomiting and diarrhea- Has had several episodes of this over the past year. Question undiagnosed diabetic gastroparesis CT without signs of obstruction or ileus, but does show fluid N.p.o. except essential medications Zofran 4 mg IV every 6 hours as needed famotidine 20 mg IV every 12 hours Diabetes mellitus- Accu-Cheks before meals and at bedtime with NovoLog coverage per scale Check hemoglobin A1c Likely has undiagnosed diabetic gastroparesis Schizoaffective disorder- Continue usual medications: Seroquel, Lexapro, Depakote, BuSpar, clonazepam. 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
[2021-04-27] MEDS ORDERED: LORazepam 0.5 MG/1 ML VIAL IV STA (01:39)
[2021-04-27] MEDS ORDERED: ACETAMINOPHEN 325 MG TAB PO PRN (02:55)
[2021-04-27] MEDS ORDERED: ALUMINUM/MAGNESIUM SUSP 30 ML UDC PO PRN (02:55)
[2021-04-27] MEDS ORDERED: MAGNESIUM HYDROXIDE SUSP 30 ML UDC PO PRN (02:55)
[2021-04-27] MEDS ORDERED: ONDANSETRON INJ 2 MG/ML 2 ML VIAL IV PRN (02:55)
[2021-04-27] MEDS ORDERED: diphenhydrAMINE 50 MG/ML VIAL IV STA (03:04)
[2021-04-27] MEDS ORDERED: NURSING DECISION MEDICATION ONE (04:08)
[2021-04-27] MEDS ORDERED: MICONAZOLE NITRATE POWDER 43 GM EXT PRN (04:21)
[2021-04-27 06:59] LABS: Creatinine Clr Calc Pharmacy 79.5 ml/min; Est GFR (African American) 90.9 ml/min; Est GFR (Non-African American) 78.5 ml/min; Magnesium 1.7 mg/dl (1.8-2.4); Potassium 5.5 mmol/L (3.5-5.1)
[2021-04-27 07:02] LABS: Albumin Globulin Ratio 0.7 (0.9-2); Bilirubin,Total 0.3 mg/dl (0.2-1); Globulin 4.4 gm/dl (2.5-4.0); Phosphorus 3.5 mg/dl (2.5-4.9); Total Protein 7.4 gm/dl (6.4-8.2)
--- NOTE | 2021-04-27 07:08 | XRay Report ---
XR chest 1V portable CLINICAL HISTORY: Vomiting COMPARISON STUDY: No 1320 FINDINGS: The cardiac and mediastinal contours are normal. There is no evidence of focal pulmonary co nsolidation. There is no evidence of failure. No pleural effusions are visualized.[There is a linear subsegmental atelectasis the left lung base. There is no free intraperitoneal air. IMPRESSION: No active disease in the chest. ACT 112: Negative or not required by law. Electronically signed by: Angel Ramos M.D. 04/27/2021 7:06 AM
[2021-04-27 07:11] LABS: Basophils # (auto) 0.02 K/uL (0-0.2); Basophils % (auto) 0.1 %; Eosinophils # (auto) 0.09 K/uL (0-0.5); Eosinophils % (auto) 0.7 %; Hematocrit (blood only) 46.4 % (37-47); Hemoglobin 16.2 g/dL (12.0-16.0); Immature Granulocytes # (auto) 0.13 K/uL (0.00-0.02); Lymphocytes # (auto) 1.21 K/uL (1.2-3.4); Lymphocytes % (auto) 9.1 %; Mean Corpuscular Hemoglobin 31.9 pg (25-34); Mean Corpuscular Volume 91.3 fL (80-100); Mean Platelet Volume 9.9 fL (7.4-10.4); Monocytes # (auto) 1.24 K/uL (0.11-0.59); Monocytes % (auto) 9.3 %; Neutrophils # (auto) 10.66 K/uL (1.4-6.5); Neutrophils % (auto) 79.8 %; Platelet Count 218 K/uL (130-400); RDW Coefficient of Variation 13.3 % (11.5-14.5); RDW Standard Deviation 44.5 fL (36.4-46.3); Red Blood Count 5.08 M/uL (4.2-5.4); White Blood Count 13.35 K/uL (4.8-10.8)
[2021-04-27 07:13] LABS: Mean Corpuscular Hgb Conc 34.9 g/dL (32-36)
--- NOTE | 2021-04-27 07:42 | CT Scan Report ---
CT abd pelvis IV con only CLINICAL HISTORY: Vomiting COMPARISON STUDY: 10/31/2020 TECHNIQUE: Patient was scanned in a dynamic helical fashion during intravenous administration of 92 c c of Optiray 320 A dose lowering technique was utilized adhering to the principles of ALARA. CT DOSE: 1588.94 mGy.cm FINDINGS: Lower chest: There are minimal dependent basilar airspace opacities, likely atelectatic although an i nfectious/inflammatory process could appear similar Liver: No focal hepatic masses are visualized. There is borderline hepatic steatosis. There is mild c entral biliary ductal prominence, likely secondary to a reservoir in a patient status post cholecyste ctomy. Gallbladder: Surgically absent Spleen: Normal in size and attenuation. Pancreas: Unremarkable. Adrenal glands: Unremarkable. Kidneys: Small renal hypodensities, likely represent cysts. Bowel: There are multiple fluid-filled bowel loops. There are no transition zones to indicate bowel o bstruction. There is mild gastric distention. The findings could indicate an enteritis. There is no e vidence of acute diverticulitis. By history the appendix is surgically absent Peritoneum: There is no intraperitoneal free air or abdominal ascites. Vasculature: The abdominal aorta is normal in course and caliber. Adenopathy: None. Pelvic viscera: The uterus appears surgically absent. Skeletal structures: No destructive osseous lesions are seen. IMPRESSION: 1. No evidence of bowel obstruction. No evidence of free air 2. Surgically absent gallbladder. Minimally prominent central biliary ducts, likely secondary to a re servoir effect 3. No evidence of acute diverticulitis 4. Mildly distended fluid-filled stomach. Multiple fluid-filled bowel loops. This is a nonspecific fi nding but could indicate a gastroenteritis. ACT 112: Negative or not required by law. Electronically signed by: Angel Ramos M.D. 04/27/2021 7:40 AM
[2021-04-27] MEDS: MAGNESIUM SULFATE / D5W 1 GM/100 ML BAG IV SCH ×2 (09:11→11:46)
[2021-04-27] MEDS: busPIRone 15 MG TAB PO SCH ×3 (09:12→21:16)
[2021-04-27] MEDS: ESCITALOPRAM OXALATE 20 MG TAB PO SCH (09:12)
[2021-04-27] MEDS: GABAPENTIN 100 MG CAP PO SCH ×2 (09:12→11:47)
[2021-04-27] MEDS: PANTOprazole 40 MG TAB PO SCH (09:13)
[2021-04-27] MEDS: LORATADINE 10 MG TAB PO SCH (09:13)
[2021-04-27] MEDS: RIVAROXABAN 20 MG TAB PO SCH (09:13)
[2021-04-27] MEDS: THIAMINE HCL 100 MG TAB PO SCH ×2 (09:14→21:16)
[2021-04-27] MEDS: SODIUM CHLORIDE 0.9% 500 ML IV SCH ×4 (09:16→22:25)
[2021-04-27] MEDS: clonazePAM 0.5 MG TAB PO SCH ×2 (09:17→21:16)
--- NOTE | 2021-04-27 10:01 | Electrocardiogram Report ---
Test Reason : Blood Pressure : / mmHG Vent. Rate : 107 BPM Atrial Rate : 107 BPM P-R Int : 154 ms QRS Dur : 132 ms QT Int : 394 ms P-R-T Axes : 047 126 016 degrees QTc Int : 525 ms Sinus tachycardia Right bundle branch block Left posterior fascicular block Bifascicular block Abnormal ECG When compared with ECG of 19-MAR-2021 18:39, No significant change was found Confirmed by Sunil Jacobson ([id number]) on 04/27/2021 10:00:42 AM Referred By: REFERRED SELF Confirmed By:Sunil Jacobson
--- NOTE | 2021-04-27 11:34 | Hospitalist Progress Note ---
Date of Service April 27, 2021 Assessment & Plan (1) Vomiting and diarrhea: Tierra Gil is a 65-year-old female with past medical history significant for type 2 diabetes, schizoaffective disorder (depressive type), irritable bowel syndrome, GERD, history of pulmonary embolism, who was admitted on 04/27 for concerns of new onset nausea, vomiting, diarrhea following eating hamburger helper yesterday. Gastroenteritis: Presents with 1 day of N/V/diarrhea following hamburger helping ingestion, has had multiple episodes similar to this over the last year. CT abd/pelv showing fluid in the stomach and fluid-filled bowel loops suspicious for gastroenteritis --> suspect acute gastroenteritis. - c-diff negative, stool cultures pending - blood/urine cultures pending - Continue Zofran first-line, Benadryl second line (EKG with QTC 480 on admission) - continue mIVFs with NSS @125cc/hr - continue full diet as tolerated Elevated Lactate: Lactate 2.5 --> 2.1 --> 2.2 this morning; mildly improved. Suspect due to acute gastroenteritis. - stool/blood/urine cx pending as mentioned above FOBT+ Stool: Patient denies h/o melena or hematochezia. Hgb stable at 16 in the hospital. - recommend outpatient colonoscopy for further evaluation Type 2 diabetes: - A1c on last admission 6.5 - No meds or BSG monitoring at home - Has diabetic neuropathy utilizes gabapentin Schizoaffective disorder: -Continue home Seroquel, escitalopram, Depakote, BuSpar, clonazepam at this time Diet: DM2/heart-healthy, NSS @125cc/hr CODE STATUS: Full code DVT prophylaxis: On home Xarelto for previous PE Dispo: med/surg with tele (2) Diabetes: (3) GERD (gastroesophageal reflux disease): (4) Schizoaffective disorder: Admission and Anticipated Discharge Date Admission Date: April 27, 2021 Supervising Physician Co-Signing Physician Notes Resident Physician Supervision Note: I independently interviewed and examined the patient and verified the lopez history and physical, reviewed labs and image studies and agree with resident Dr. Stallworth findings and care plan. Admitted for vomiting/diarrhea after having a meal for concern of acute gastroenteritis nausea better at the time of visit. having diarrhea o/e - comfortable in bed. AAOx3 heart - regular. abd - soft, nt/nd. acute gastroenteritis - continue IVF, antiemetics, stool cultures sent. advance diet as tolerated. Prolonged QT interval - while on antipsychotic and SSRI. follow and limit meds interaction. Subjective See H&P for HPI Review of Systems Review of Systems: See H&P for ROS Physical Exam Physical Exam: See H&P for PE Results & Data Results & Data ([facility]) Vital Signs (Past 12 Hours) Vital Signs Temp Pulse Pulse Pulse Resp BP BP 04/27/21 07:23 37.3 C 102 H 16 106/73 04/27/21 02:57 108 H 04/27/21 02:55 36.8 C 102 H 22 134/78 04/27/21 01:59 94 H 20 150/89 H 04/27/21 00:00 96 H 18 147/78 H Pulse Ox 04/27/21 07:23 93 04/27/21 02:57 04/27/21 02:55 91 04/27/21 01:59 96 04/27/21 00:00 94 Resident Activity Tracking Resident Involvement: Resident Care Provided Care Provided: Adult Hospital Medicine (1) Diabetes Diabetes mellitus complication status: without complication Diabetes mellitus mcfp insulin use: with terminal make up operator use Diabetes mellitus type: type 2 Qualified Code(s): E11.9 - Type 2 diabetes mellitus without complications; Z79.4 - [facility] (current) use of insulin (2) Schizoaffective disorder Schizoaffective disorder type: depressive Qualified Code(s): F25.1 - Schizoaffective disorder, depressive type (3) GERD (gastroesophageal reflux disease) Esophagitis presence: without esophagitis Qualified Code(s): K21.9 - Gastro- esophageal reflux disease without esophagitis
--- NOTE | 2021-04-27 19:46 | Billing Data ---
Date of Service April 27, 2021 Coding Level of Care Code 92955 Initial Inpt Care Lvl 3
[2021-04-27] MEDS: IBUPROFEN 200 MG TAB PO PRN (21:15)
[2021-04-27] MEDS: QUEtiapine FUMARATE 200 MG TAB PO SCH (21:15)
[2021-04-27] MEDS: DIVALPROEX EXTENDED RELEASE 500 MG TAB PO SCH (21:16)
[2021-04-27] MEDS: rOPINIRole HCL 0.25 MG TABLET PO SCH (21:17)
[2021-04-28] MEDS ORDERED: SODIUM CHLORIDE 0.9% 1000ML 500 ML IV ONE (04:00)
[2021-04-28 08:45] LABS: Basophils # (auto) 0.01 K/uL (0-0.2); Basophils % (auto) 0.1 %; Eosinophils % (auto) 3.5 %; Hematocrit (blood only) 38.6 % (37-47); Hemoglobin 12.8 g/dL (12.0-16.0); Immature Granulocytes # (auto) 0.05 K/uL (0.00-0.02); Immature Granulocytes % (auto) 0.6 %; Lymphocytes # (auto) 3.91 K/uL (1.2-3.4); Lymphocytes % (auto) 45.7 %; Mean Corpuscular Hemoglobin 31.7 pg (25-34); Mean Corpuscular Hgb Conc 33.2 g/dL (32-36); Mean Corpuscular Volume 95.5 fL (80-100); Mean Platelet Volume 9.8 fL (7.4-10.4); Monocytes # (auto) 0.59 K/uL (0.11-0.59); Monocytes % (auto) 6.9 %; Neutrophils % (auto) 43.2 %; Platelet Count 194 K/uL (130-400); RDW Coefficient of Variation 13.5 % (11.5-14.5); Red Blood Count 4.04 M/uL (4.2-5.4); White Blood Count 8.56 K/uL (4.8-10.8)
[2021-04-28 08:51] LABS: BUN Creatinine Ratio 19.2 (10-20); Calcium 8.3 mg/dl (8.5-10.1); Creatinine Clr Calc Pharmacy 118.3 ml/min; Est GFR (African American) 116.4 ml/min; Est GFR (Non-African American) 100.4 ml/min; Magnesium 2.3 mg/dl (1.8-2.4); Phosphorus 2.7 mg/dl (2.5-4.9); Potassium 3.9 mmol/L (3.5-5.1)
[2021-04-28] MEDS: busPIRone 15 MG TAB PO SCH ×3 (09:56→21:42)
[2021-04-28] MEDS: GABAPENTIN 100 MG CAP PO SCH ×2 (09:56→13:28)
[2021-04-28] MEDS: ESCITALOPRAM OXALATE 20 MG TAB PO SCH (09:57)
[2021-04-28] MEDS: THIAMINE HCL 100 MG TAB PO SCH ×2 (09:57→22:20)
[2021-04-28] MEDS: clonazePAM 0.5 MG TAB PO SCH ×2 (09:57→21:40)
[2021-04-28] MEDS: PANTOprazole 40 MG TAB PO SCH (09:57)
[2021-04-28] MEDS: RIVAROXABAN 20 MG TAB PO SCH (09:57)
[2021-04-28] MEDS: LORATADINE 10 MG TAB PO SCH (09:58)
[2021-04-28] MEDS: LACTATED RINGER'S 1,000 ML IV SCH ×2 (09:59→18:05)
--- NOTE | 2021-04-28 12:43 | Medical Student Progress Note ---
Date of Service April 28, 2021 Assessment & Plan (1) Vomiting and diarrhea: Patient is a 65 y/o DM2, schizoaffective depressive subtype, IBS, GERD, and history of PE, and binge eating presenting 2 days ago with nausea, vomiting, and diarrhea. She has been hospitalized several times every 1-2 months for similar symptoms. Today, she has no nausea, vomiting or diarrhea and was able to eat a full meal without issue. She does endorse lightheadedness and vertigo and general weakness. * Placed order for GI consult due to history of bleeding per rectum, current positive fecal occult blood, and repeated hospitalization for vomiting and diarrhea. She is currently managed on protonix, zofran, maalox, magnesium hydroxide. Negative c-diff. * Hgb decreased from 16.2 (04/27) to 12.8 (04/28). Repeat hgb in the morning to trend. The decrease could be due to dilution from increased fluids or due to GI bleeding. * Placed on 1000mg LR at 125mls/hr today, bolus of 250ml this afternoon, and kept at 125ml/hr LR overnight due to BP on softer end. (2) Urine culture positive: * UA positive for leuk est, >30 WBC, epithelial cells, 2+ bacteria, mucus. * Urine culture grew >100,000 gram negative bacilli. * Started on Keflex 250mg PO QID. * Patient denies dysuria or frequency but is lightheaded and weak. Possible UTI in setting of diarrhea. (3) Smoking: * She has been smoking 3 packs per day for many years. She is unsure how long. She says she switched from binge eating to binge smoking. * She has tried to quit in the past using nicotine patches but had severe GI distress and GI bleeding and was admitted at [facility]. She is very committed to stop smoking but feels that she cannot be successful without help. * Recommend outpatient follow-up with PCP and psychiatrist to find best smoking cessation regimen given past reaction to nicotine patch and psychiatric medications that may interact with pharmacologic aids. She will try Nicorette gum 2mg PRN while inpatient. * Recommend establishing with pulmonology outpatient for PFTs and COPD evaluation due to smoking history and lung wheezes. (4) Diabetes: * Switch from metformin 500 mg PO BID to metformin ER 500 mg PO BID on discharge due to less GI side effects. Diabetes mellitus complication status: without complication Diabetes mellitus unit assistant insulin use: with unit assistant use Diabetes mellitus type: type 2 Qualified Code(s): E11.9 - Type 2 diabetes mellitus without complications; Z79.4 - assisted (current) use of insulin (5) Schizoaffective disorder: * Managed by Dr. Cadet in [place]. * High anxiety and psychiatric issues are a barrier to her going to scheduled outpatient appointments and doing medical procedures like the colonoscopy. She has repeatedly no-showed to appointments due to anxiety about the visit. This should be considered when scheduling follow-up care. Schizoaffective disorder type: depressive Qualified Code(s): F25.1 - Schizoaffective disorder, depressive type (6) Anxiety and depression: * Managed by Dr. Cadet in [place]. See above. Admission and Anticipated Discharge Date Admission Date: April 27, 2021 Supervising Attestation I also saw the patient with the medical student and resident physician and I personally completed the history and physical examination. Tierra states that she overall feels better today. The abdominal discomfort and loose stools which she had previously has completely resolved. She does complain of dizziness; mildly present while at rest, worsening with movement. In reviewing things today, she notes that she has seen blood per rectum including blood clots -although she is unable to quantify how much and for how long this has been ongoing. She does note she had a colonoscopy previous -and she is hesitant to have another one due to the difficulty she had with the prep. She really cannot tell us how long ago this was; it may have been as long as 30 years? Exam 93/56, 74, 16, 36.6, 95% on 2 L via nasal cannula Pleasant. Talkative. No acute distress. Heart regular rate and rhythm. Lungs clear, slight decreased in the bases secondary to inspiratory effort Abdomen is obese but nontender. Data Hemoglobin 12.8 (16.2 yesterday) BUN 10, creatinine 0.54 Chest x-ray 04/26/2021 showed no acute disease in the chest. CT of the abdomen and pelvis 04/26/2021 showed no evidence of bowel obstruction or free air. No evidence of diverticulitis. Mildly distended fluid-filled stomach with multiple fluid-filled bowel loops perhaps consistent with a gastroenteritis. Impression and plan Vomiting and diarrhea, improved History of IBS Heme positive stools with reported history of blood per rectum Monitor hemoglobin; suspect her hemoglobin drop is more related to hydration than a true bleed but recheck hemoglobin in a.m. to assure stability Advance diet as tolerated Consider changing Metformin to extended release to lessen GI side effects Tobacco abuse She is interested in quitting, although has had adverse reactions to nicotine patch Chantix would be difficult given her psychiatric diagnosis and medications Trial of nicotine gum Morbid obesity BMI greater than 40 Noted complicating factor UTI Keflex 500 mg p.o. twice daily Subjective Patient is a 65 y/o DM2, schizoaffective depressive subtype, IBS, GERD, and history of PE, and binge eating presenting 2 days ago with nausea, vomiting, and diarrhea. She has also been smoking 3 packs per day for years which she says limits her appetite and overeating. 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 She has previously struggled with self care and has to use a walker in the house and wheelchair for longer distances. She sees Dr. Gupta in [place] for her PCP and Dr. Castillo in [place] for psychiatric care and states she is compliant will all home medications. She has not seen a GI or finish repair worker. She states that she has passed "blood clots" in her stool recently and in the last few months. She was supposed to have a colonoscopy in her 30s but was unable to tolerate standard prep and has been scared of going to the GI doctor since then. Today, she has no nausea, vomiting, or diarrhea but does endorse lightheadedness, vertigo, and feeling generally weak. She also has "achy joints" that she attributes to arthritis and rainy weather that is managed with tylenol. Review of Systems Constitutional: + fatigue and + weakness Respiratory: + dyspnea (chronic); no cough Cardiovascular: + lightheadedness; no chest pain, no palpitations, no edema and no calf pain Gastrointestinal: + blood in stools (patient reports blood clots in her stool and bloody diarrhea yesterday); no abdominal pain, no nausea, no vomiting and no diarrhea/loose stools Genitourinary: no dysuria, no difficulty urinating and no urinary urgency Musculoskeletal: + joint pain Neurologic: vertigo Psychiatric: + anxiety Physical Exam Constitutional: + obese; no acute distress Respiratory: normal respiratory effort Auscultation: + wheezes (bilaterally) Cardiovascular: RRR, no murmur, no edema Gastrointestinal (Abdomen): Inspection/Auscultation: abdomen normal to inspection and normal bowel sounds Percussion/Palpation: abdomen soft; no guarding Musculoskeletal: no calf tenderness on palpation Psychiatric: Mood: + anxious mood Results & Data ([facility]) Vital Signs (Past 12 Hours) Vital Signs Temp Pulse Pulse Resp BP Pulse Ox 04/28/21 12:25 36.5 C 73 18 100/70 97 04/28/21 07:35 36.4 C L 71 20 107/73 96 04/28/21 03:03 36.9 C 79 16 91/55 L 91 Laboratory Results Laboratory Results WBC 8.56 K/uL (4.8-10.8) 04/28/21 07:42 RBC 4.04 M/uL (4.2-5.4) L 04/28/21 07:42 Hgb 12.8 g/dL (12.0-16.0) D 04/28/21 07:42 Hct 38.6 % (37-47) 04/28/21 07:42 MCV 95.5 fL (80-100) 04/28/21 07:42 MCH 31.7 pg (25-34) 04/28/21 07:42 MCHC 33.2 g/dL (32-36) 04/28/21 07:42 RDW Std Deviation 47.0 fL (36.4-46.3) H 04/28/21 07:42 RDW Coeff of [place] 13.5 % (11.5-14.5) 04/28/21 07:42 Plt Count 194 K/uL (130-400) 04/28/21 07:42 MPV 9.8 fL (7.4-10.4) 04/28/21 07:42 Immature Gran % (Auto) 0.6 % 04/28/21 07:42 Neut % (Auto) 43.2 % 04/28/21 07:42 Lymph % (Auto) 45.7 % 04/28/21 07:42 [place] % (Auto) 6.9 % 04/28/21 07:42 Eos % (Auto) 3.5 % 04/28/21 07:42 Baso % (Auto) 0.1 % 04/28/21 07:42 Neut # (Auto) 3.70 K/uL (1.4-6.5) 04/28/21 07:42 Lymph # (Auto) 3.91 K/uL (1.2-3.4) H 04/28/21 07:42 [place] # (Auto) 0.59 K/uL (0.11-0.59) 04/28/21 07:42 Eos # (Auto) 0.30 K/uL (0-0.5) 04/28/21 07:42 Baso # (Auto) 0.01 K/uL (0-0.2) 04/28/21 07:42 Immature Gran # (Auto) 0.05 K/uL (0.00-0.02) H 04/28/21 07:42 Absolute Nucleated RBC Cancelled 04/27/21 06:11 Nucleated RBC % (auto) Cancelled 04/27/21 06:11 Neutrophils % (Manual) Cancelled 04/27/21 06:11 Band Neutrophils % Cancelled 04/27/21 06:11 Lymphocytes % (Manual) Cancelled 04/27/21 06:11 Prolymphocyte % Cancelled 04/27/21 06:11 Reactive Lymphs % (Man) Cancelled 04/27/21 06:11 Monocytes % (Manual) Cancelled 04/27/21 06:11 Eosinophils % (Manual) Cancelled 04/27/21 06:11 Basophils % (Manual) Cancelled 04/27/21 06:11 Metamyelocytes % (Man) Cancelled 04/27/21 06:11 Myelocytes % (Man) Cancelled 04/27/21 06:11 Promyelocytes % (Man) Cancelled 04/27/21 06:11 Blast Cells % (Manual) Cancelled 04/27/21 06:11 Plasma Cell % (Manual) Cancelled 04/27/21 06:11 Other Cells % Cancelled 04/27/21 06:11 Nucleated RBC % Cancelled 04/27/21 06:11 Neutrophils # (Manual) Cancelled 04/27/21 06:11 Band Neutrophils # Cancelled 04/27/21 06:11 Total Absolute Neuts Cancelled 04/27/21 06:11 Lymphocytes # (Manual) Cancelled 04/27/21 06:11 Prolymphocyte # Cancelled 04/27/21 06:11 Reactive Lymphs # Cancelled 04/27/21 06:11 Total Abs Lymphocytes Cancelled 04/27/21 06:11 Monocytes # (Manual) Cancelled 04/27/21 06:11 Eosinophils # (Manual) Cancelled 04/27/21 06:11 Basophils # (Manual) Cancelled 04/27/21 06:11 Metamyelocytes # (Man) Cancelled 04/27/21 06:11 Myelocytes # (Manual) Cancelled 04/27/21 06:11 Promyelocytes # (Man) Cancelled 04/27/21 06:11 Blast Cells # (Man) Cancelled 04/27/21 06:11 Plasma Cell # (Manual) Cancelled 04/27/21 06:11 Other Cells # Cancelled 04/27/21 06:11 Nucleated RBCs # (Man) Cancelled 04/27/21 06:11 Hypersegmented Neuts Cancelled 04/27/21 06:11 Hyposegmented Neuts Cancelled 04/27/21 06:11 Hypogranular Neuts Cancelled 04/27/21 06:11 Large Granular Lymphs Cancelled 04/27/21 06:11 # Lrg Granular Lymphs Cancelled 04/27/21 06:11 Hairy Cells Cancelled 04/27/21 06:11 Smudge Cells Cancelled 04/27/21 06:11 Toxic Granulation Cancelled 04/27/21 06:11 Toxic Vacuolation Cancelled 04/27/21 06:11 Dohle Bodies Cancelled 04/27/21 06:11 Hoa Rods Cancelled 04/27/21 06:11 Platelet Estimate Cancelled 04/27/21 06:11 Hypogranular Platelets Cancelled 04/27/21 06:11 Clumped Platelets Cancelled 04/27/21 06:11 Giant Platelets Cancelled 04/27/21 06:11 Platelet Satelliting Cancelled 04/27/21 06:11 RBC Morphology Cancelled 04/27/21 06:11 Polychromasia Cancelled 04/27/21 06:11 Hypochromasia Cancelled 04/27/21 06:11 Poikilocytosis Cancelled 04/27/21 06:11 Basophilic Stippling Cancelled 04/27/21 06:11 Anisocytosis Cancelled 04/27/21 06:11 Microcytosis Cancelled 04/27/21 06:11 Macrocytosis Cancelled 04/27/21 06:11 Spherocytes Cancelled 04/27/21 06:11 Pappenheimer Bodies Cancelled 04/27/21 06:11 Sickle Cells Cancelled 04/27/21 06:11 Target Cells Cancelled 04/27/21 06:11 Tear Drop Cells Cancelled 04/27/21 06:11 Ovalocytes Cancelled 04/27/21 06:11 Stomatocytes Cancelled 04/27/21 06:11 [place] Bodies Cancelled 04/27/21 06:11 Echinocytes Cancelled 04/27/21 06:11 Acanthocytes (Spur) Cancelled 04/27/21 06:11 Rouleaux Cancelled 04/27/21 06:11 RBC Agglutinates Cancelled 04/27/21 06:11 Schistocytes Cancelled 04/27/21 06:11 RBC Morph Comment Cancelled 04/27/21 06:11 Sezary Cell Cancelled 04/27/21 06:11 Sodium 141 mmol/L (136-145) 04/28/21 07:42 Potassium 3.9 mmol/L (3.5-5.1) D 04/28/21 07:42 Chloride 109 mmol/L (98-107) H 04/28/21 07:42 Carbon Dioxide 27 mmol/L (21-32) 04/28/21 07:42 Anion Gap 5.0 (3-11) 04/28/21 07:42 BUN 10 mg/dl (7-18) D 04/28/21 07:42 Creatinine 0.54 mg/dl (0.6-1.2) L 04/28/21 07:42 Est Cr Clr Drug Dosing 118.3 ml/min 04/28/21 07:42 Est GFR ( Amer) 116.4 ml/min 04/28/21 07:42 Est GFR (Non-Af Amer) 100.4 ml/min 04/28/21 07:42 BUN/Creatinine Ratio 19.2 (10-20) 04/28/21 07:42 Glucose 110 mg/dl (70-99) H 04/28/21 07:42 POC Glucose 164 mg/dl (70-99) H 04/28/21 11:36 Lactate 2.0 mmol/L (0.4-2.0) 04/27/21 11:51 Calcium 8.3 mg/dl (8.5-10.1) L 04/28/21 07:42 Phosphorus 2.7 mg/dl (2.5-4.9) 04/28/21 07:42 Magnesium 2.3 mg/dl (1.8-2.4) 04/28/21 07:42 Total Bilirubin 0.3 mg/dl (0.2-1) 04/27/21 06:11 AST 18 U/L (15-37) 04/27/21 06:11 ALT 15 U/L (12-78) 04/27/21 06:11 Alkaline Phosphatase 120 U/L (45-117) H 04/27/21 06:11 Troponin I < 0.015 ng/ml (0-0.045) 04/26/21 22:14 Total Protein 7.4 gm/dl (6.4-8.2) 04/27/21 06:11 Albumin 3.0 gm/dl (3.4-5.0) L 04/27/21 06:11 Globulin 4.4 gm/dl (2.5-4.0) H 04/27/21 06:11 Albumin/Globulin Ratio 0.7 (0.9-2) L 04/27/21 06:11 Lipase 389 U/L (73-393) 04/26/21 22:14 Specimen Hemolysis 04/27/21 06:11 Urine Color Yellow 04/26/21 22:14 Urine Appearance Cloudy (Clear) A 04/26/21 22:14 Urine pH 5.5 (4.5-7.5) 04/26/21 22:14 Ur Specific [place] 1.013 (1.000-1.030) 04/26/21 22:14 Urine Protein Negative (Negative) 04/26/21 22:14 Urine Glucose (UA) Negative (Negative) 04/26/21 22:14 Urine Ketones Trace (Negative) H 04/26/21 22:14 Urine Blood 2+ (Negative) H 04/26/21 22:14 Urine Nitrite Negative (Negative) 04/26/21 22:14 Urine Bilirubin Negative (Negative) 04/26/21 22:14 Urine Urobilinogen Negative (Negative) 04/26/21 22:14 Ur Leukocyte Esterase 2+ (Negative) H 04/26/21 22:14 Urine WBC (Auto) >30 /hpf (0-5) H 04/26/21 22:14 Urine RBC (Auto) 0-4 /hpf (0-4) 04/26/21 22:14 U Hyaline Cast (Auto) 5-10 /lpf (0-5) H 04/26/21 22:14 U Epithel Cells (Auto) >30 /lpf (0-5) H 04/26/21 22:14 Urine Bacteria (Auto) 2+ (Negative) H 04/26/21 22:14 Uric Acid Crystals Present (None Prsent) A 04/26/21 22:14 Granular Casts 1-5 /lpf (0) H 04/26/21 22:14 Urine Mucus Present (None Prsent) A 04/26/21 22:14 Urine Yeast Present (None Prsent) A 04/26/21 22:14 Stool Occult Bld Scrn Positive (Negative) A 04/27/21 04:25 Stl C. diff Tox B Gene Negative Cdiff Gene (Neg) 04/27/21 04:25 COVID-19 Eval Order Covid19 at [facility] 04/27/21 00:39 SARS-CoV-2 (PCR) NEGATIVE (Negative) 04/27/21 00:39 Impressions Abdomen/Pelvis CT 04/26/21 22:30 CT abd pelvis IV con only CLINICAL HISTORY: Vomiting COMPARISON STUDY: 10/31/2020 TECHNIQUE: Patient was scanned in a dynamic helical fashion during intravenous administration of 92 cc of Optiray 320 A dose lowering technique was utilized adhering to the principles of ALARA. CT DOSE: 1588.94 mGy.cm FINDINGS: Lower chest: There are minimal dependent basilar airspace opacities, likely atelectatic although an infectious/inflammatory process could appear similar Liver: No focal hepatic masses are visualized. There is borderline hepatic steatosis. There is mild central biliary ductal prominence, likely secondary to a reservoir in a patient status post cholecystectomy. Gallbladder: Surgically absent Spleen: Normal in size and attenuation. Pancreas: Unremarkable. Adrenal glands: Unremarkable. Kidneys: Small renal hypodensities, likely represent cysts. Bowel: There are multiple fluid-filled bowel loops. There are no transition zones to indicate bowel obstruction. There is mild gastric distention. The findings could indicate an enteritis. There is no evidence of acute diverticulitis. By history the appendix is surgically absent Peritoneum: There is no intraperitoneal free air or abdominal ascites. Vasculature: The abdominal aorta is normal in course and caliber. Adenopathy: None. Pelvic viscera: The uterus appears surgically absent. Skeletal structures: No destructive osseous lesions are seen. IMPRESSION: 1. No evidence of bowel obstruction. No evidence of free air 2. Surgically absent gallbladder. Minimally prominent central biliary ducts, likely secondary to a reservoir effect 3. No evidence of acute diverticulitis 4. Mildly distended fluid-filled stomach. Multiple fluid-filled bowel loops. This is a nonspecific finding but could indicate a gastroenteritis. ACT 112: Negative or not required by law. Electronically signed by: Angel Ramos M.D. 04/27/2021 7:40 AM Chest X-Ray 04/26/21 22:30 XR chest 1V portable CLINICAL HISTORY: Vomiting COMPARISON STUDY: No 1320 FINDINGS: The cardiac and mediastinal contours are normal. There is no evidence of focal pulmonary consolidation. There is no evidence of failure. No pleural effusions are visualized.[There is a linear subsegmental atelectasis the left lung base. There is no free intraperitoneal air. IMPRESSION: No active disease in the chest. ACT 112: Negative or not required by law. Electronically signed by: Angel Ramos M.D. 04/27/2021 7:06 AM
[2021-04-28] MEDS: cephALEXin 250 MG CAP PO SCH ×2 (16:37→21:42)
[2021-04-28] MEDS ORDERED: LACTATED RINGER'S 250 ML IV ONE (16:41)
[2021-04-28] MEDS: DIVALPROEX EXTENDED RELEASE 500 MG TAB PO SCH (21:41)
[2021-04-28] MEDS: QUEtiapine FUMARATE 200 MG TAB PO SCH (21:42)
[2021-04-28] MEDS: rOPINIRole HCL 0.25 MG TABLET PO SCH (21:42)
[2021-04-28] MEDS: IBUPROFEN 200 MG TAB PO PRN (23:52)
[2021-04-29 09:16] LABS: Hematocrit (blood only) 36.7 % (37-47); Hemoglobin 12.5 g/dL (12.0-16.0); Mean Corpuscular Hemoglobin 31.7 pg (25-34); Mean Corpuscular Hgb Conc 34.1 g/dL (32-36); Mean Corpuscular Volume 93.1 fL (80-100); Mean Platelet Volume 9.5 fL (7.4-10.4); Platelet Count 191 K/uL (130-400); RDW Coefficient of Variation 13.2 % (11.5-14.5); Red Blood Count 3.94 M/uL (4.2-5.4)
--- NOTE | 2021-04-29 09:24 | Medical Student Progress Note ---
Date of Service April 29, 2021 Assessment & Plan (1) Vomiting and diarrhea: Patient is a 65 y/o DM2, IBS, GERD, and history of PE, and schizoaffective disorder (depressive subtype) presenting 2 days ago with nausea, vomiting, and diarrhea. She has been hospitalized several times every 1-2 months for similar symptoms and has a history of binge eating. Nausea, vomiting and diarrhea * Appreciate GI consult due to history of bleeding per rectum, current positive fecal occult blood, and repeated hospitalization for vomiting and diarrhea. She is currently managed on protonix, zofran, maalox, magnesium hydroxide. Negative c-diff. * EGD and colonoscopy scheduled for 04/30 while inpatient. * Hgb decreased from 16.2 (04/27) to 12.8 (04/28), stable at 12.5 on 04/29. Follow daily cbc to trend. The decrease could be due to dilution from increased fluids or due to GI bleeding. Bacteriuria * UA positive for leuk est, >30 WBC, epithelial cells, 2+ bacteria, mucus. Concern of contamination due to epithelial cells. * Urine culture grew >100,000 gram negative bacilli. * Started on Keflex 250mg PO QID for 5 days disc. on 05/03. * Patient denies dysuria or frequency but had lightheadedness and weakness on 04/28. Feels well on 04/29. Possible UTI in setting of diarrhea. Tobacco use * She has been smoking 3 packs per day. Unclear pack year history. She says she switched from binge eating to binge smoking. * She has tried to quit in the past using nicotine patches but had severe GI distress and GI bleeding and was admitted at [facility]. * She is very committed to stop smoking. * Recommend outpatient follow-up with PCP and psychiatrist to find best smoking cessation regimen given past reaction to nicotine patch and psychiatric medications that may interact with pharmacologic aids. * She will try Nicorette gum 2mg PRN while inpatient. Wheezing, SOB with exertion * Suspect secondary to COPD given patient's extensive smoking history * Recommend outpatient PFTs DM2 * Hold home metformin. On sliding scale insulin inpatient. * Switch from metformin 500 mg PO BID to metformin ER 500 mg PO BID on discharge due to less GI side effects. * A1C 6.5% (03/19/21), previously 13.9% (11/03) Schizoaffective disorder, anxiety, depression * Managed by Dr. Cadet in [place]. * High anxiety and psychiatric issues are a barrier to her going to scheduled outpatient appointments and doing medical procedures like the colonoscopy. She has repeatedly no-showed to appointments due to anxiety about the visit. This should be considered when scheduling follow-up care. FEN: IVF held - patient normotensive GI: Clear liquid diet, NPO after midnight ahead of EGD and colonoscopy (scheduled for 04/30) DVT ppx: Xarelto Code status: full code Dispo: med/surg (2) Bacteriuria: (3) Smoking: (4) Diabetes: Diabetes mellitus complication status: without complication Diabetes mellitus fdc insulin use: with fdc use Diabetes mellitus type: type 2 Qualified Code(s): E11.9 - Type 2 diabetes mellitus without complications; Z79.4 - prison (current) use of insulin (5) Schizoaffective disorder: Schizoaffective disorder type: depressive Qualified Code(s): F25.1 - Schizoaffective disorder, depressive type (6) Anxiety and depression: Admission and Anticipated Discharge Date Admission Date: April 27, 2021 Supervising Attestation I also saw the patient with the medical student and resident physician and I personally completed the history and physical examination. The medical student assisted in the documentation of the services. I agree with impression and plan as noted in this documentation and as summarized below. Tierra is an good spirits today. She has no new complaints Exam 107/70, 71, 18, 36.7, 91% on room air Pleasant. Talkative. No acute distress. Heart regular rate and rhythm. Lungs clear, slight decreased in the bases secondary to inspiratory effort Abdomen is obese but nontender. Data Hemoglobin 12.5 Impression and plan Vomiting and diarrhea, improved History of IBS Heme positive stools with reported history of blood per rectum Hemoglobin is now stable; some of her drop from previous could be post fluid resuscitation and reflective of hemoconcentration upon admission Appreciate gastroenterology consultation Panendoscopy scheduled for tomorrow Tobacco abuse She is interested in quitting, although has had adverse reactions to nicotine patch Chantix would be difficult given her psychiatric diagnosis and medications Trial of nicotine gum Morbid obesity BMI greater than 40 Noted complicating factor UTI Keflex 500 mg p.o. twice daily Subjective Overnight, patient did not get much sleep. She argued with several nurses and requested food throughout the night stating that she was starving. She did not request any Nicorette gum overnight. This morning, patient is pleasant but anxious. She is willing to try a miralax bowel prep and do an EGD and colonoscopy while in the hospital but is very nervous about the prep due to her past bad experience and getting bad a bad diagnosis. Review of Systems Constitutional: + weakness (less weak than yesterday) Respiratory: + dyspnea (chronic); no cough Cardiovascular: no chest pain, no palpitations, no lightheadedness, no edema and no calf pain Gastrointestinal: no abdominal pain, no nausea, no vomiting and no diarrhea/loose stools Genitourinary: no dysuria and no urinary frequency Neurologic: no vertigo Psychiatric: + anxiety Physical Exam Constitutional: + obese; no acute distress Respiratory: normal respiratory effort Auscultation: + wheezes (bilaterally) Cardiovascular: RRR, no murmur, no edema Gastrointestinal (Abdomen): Inspection/Auscultation: abdomen normal to inspection and normal bowel sounds Percussion/Palpation: abdomen soft; no guarding Psychiatric: Mood: + anxious mood Results & Data ([facility]) Vital Signs (Past 12 Hours) Vital Signs Temp Pulse Pulse Resp BP Pulse Ox 04/29/21 08:14 36.5 C 74 18 121/73 92 04/29/21 04:05 36.9 C 74 18 105/71 93 04/28/21 22:48 36.4 C L 77 20 119/80 97 04/28/21 22:20 76
--- NOTE | 2021-04-29 09:31 | Gastrointestinal Consultation ---
Date of Consultation April 29, 2021 Assessment & Plan (1) Nausea and vomiting: -Zofran 4 mg IV q 6 hr prn -Pantoprazole 40 mg BID -Keep NPO after midnight for EGD on 04/30/21 (2) Diarrhea: (3) Rectal bleeding: -Continue to monitor H/H -Clear liquids today, Keep NPO after midnight with exception of Miralax bowel prep -Colonoscopy on 04/30/21 for further evaluation Supervising Physician Co-Signing Physician Notes Agree with IVAN Perez as above Abd: Soft, NT, ND, +BS Continue supportive care Clear liquid diet today Bowel prep tonight EGD and Colonoscopy in the AM History of Present Illness Reason for Consultation: BRBPR Attending Physician: Jaime Alexander DO History of Present Illness Patient is a 65 yo female with PMH of DM2, schizoaffective disorder, IBS, GERD, h/o PE who presents to the hospital with reports of ongoing nausea, vomiting, & diarrhea. She reports that this has been an intermittent, ongoing problem for many years. She notes that this particular episode concerned her because she experienced a significant amount of BRBPR with the diarrhea. She notes she has not had a colonoscopy since she was 22 years old due to fear of the bowel prep. She notes that both of her parents had colorectal cancer. She has been hospitalized previously for n/v/d. She denies any current nausea, vomiting, or diarrhea. She denies abdominal pain. She denies NSAID use. Current H/H is 12.5/36.7. Patient is asymptomatic at present. Allergies Allergy/AdvReac Type Severity Reaction Status Date / Time egg AdvReac Severe Vomiting Verified 04/26/21 22:19 Penicillins AdvReac Severe Vomiting Verified 04/26/21 22:19 Home Medications Medication Instructions Recorded Confirmed Type Creon 1 cap PO TID 10/25/20 04/26/21 History Xarelto 20 mg PO QAM 10/25/20 04/26/21 History buspirone 15 mg PO TID 10/25/20 04/26/21 History clonazepam 0.5 mg PO BID 10/25/20 04/26/21 History gabapentin See Rx Instructions .ROUTE .COMPLEX 10/25/20 04/26/21 History pantoprazole 40 mg PO QAM 10/25/20 04/26/21 History divalproex 1,500 mg PO HS #0 tab 11/01/20 04/26/21 Rx ferrous sulfate 325 mg PO Q OTHER DAY #30 tab 11/01/20 04/26/21 Rx quetiapine 400 mg PO HS #0 tab 11/01/20 04/26/21 Rx thiamine HCl (vitamin B1) [Vitamin 100 mg PO BID #30 tab 11/01/20 04/26/21 Rx B-1] cyanocobalamin (vitamin B-12) 1,000 mcg PO BID 03/18/21 04/26/21 History [Vitamin B-12] escitalopram oxalate 20 mg PO QAM 03/18/21 04/26/21 History metformin 500 mg PO BID 03/18/21 04/26/21 History ropinirole 0.5 mg PO HS 03/18/21 04/26/21 History Probiotic W/Cranberry 1 tab PO DAILY 04/26/21 04/26/21 History ibuprofen 200 mg PO DIRECTED PRN 04/26/21 04/26/21 History loratadine 10 mg PO QAM 04/26/21 04/26/21 History Patient History Medical History Anxiety and depression Arthritis Diabetes GERD (gastroesophageal reflux disease) History of pulmonary embolism Irritable bowel syndrome Schizoaffective disorder Surgical History History of section x2 Social History Smoking Status: Current every day smoker Tobacco Type: Cigarettes Cigarettes Per Day: 3 packs; Second Hand Exposure: Yes; Do You Dip or Chew Tobacco: No; Hx Alcohol Use: No Hx Substance Use: No Preferred Language: Estonian Communication Ability: Effective Supervisor [employer] Required: No Beliefs That Will Affect Care: None marital status: Current Living Situation: Alone Current Living Situation Comment: caregivers for few hours a day during week days How many Children do You have: 2 Other Information That Helps Us Care for You: No Feels Safe at Home: Yes Safety Concerns: Feels Safe At This Time Assistive Devices: Oxygen - Continuous Review of Systems Constitutional: no fever and no chills Respiratory: no cough and no dyspnea Cardiovascular: no chest pain Gastrointestinal: + nausea, + vomiting, + diarrhea/loose stools and + blood in stools; no abdominal pain Neurologic: no problem reported Psychiatric: + depression Hematologic / Lymphatic: no unexplained weight loss Physical Exam Constitutional: well developed Respiratory: normal respiratory effort Cardiovascular: Extremities: no edema Gastrointestinal (Abdomen): Inspection/Auscultation: abdomen normal to inspection Musculoskeletal: Head/Neck/Chest: normocephalic Psychiatric: A+Ox3, euthymic affect Results & Data ([facility]) Vital Signs (Past 12 Hours) Vital Signs Temp Pulse Pulse Resp BP Pulse Ox 04/29/21 08:14 36.5 C 74 18 121/73 92 04/29/21 04:05 36.9 C 74 18 105/71 93 04/28/21 22:48 36.4 C L 77 20 119/80 97 04/28/21 22:20 76 PG Care Time/CCT Total # of Minutes Spent Total Time Spent with Patient: Total time spent is greater than 50% in coordin ation of care (as documented) at patient's floor/unit and/or counseling patient: Coding Level of Care Code 20916 Inpt Consult Level 4 Diagnoses Nausea and vomiting R11.2 Diarrhea R19.7 Rectal bleeding K62.5
[2021-04-29] MEDS: clonazePAM 0.5 MG TAB PO SCH ×2 (10:06→21:21)
[2021-04-29] MEDS: GABAPENTIN 100 MG CAP PO SCH ×2 (10:06→13:10)
[2021-04-29] MEDS: busPIRone 15 MG TAB PO SCH ×3 (10:06→21:19)
[2021-04-29] MEDS: cephALEXin 250 MG CAP PO SCH ×4 (10:06→21:18)
[2021-04-29] MEDS: PANTOprazole 40 MG TAB PO SCH ×2 (10:07→21:17)
[2021-04-29] MEDS: THIAMINE HCL 100 MG TAB PO SCH ×2 (10:07→21:20)
[2021-04-29] MEDS: RIVAROXABAN 20 MG TAB PO SCH (10:07)
[2021-04-29] MEDS: ESCITALOPRAM OXALATE 20 MG TAB PO SCH (10:07)
[2021-04-29] MEDS: LORATADINE 10 MG TAB PO SCH (10:07)
[2021-04-29 10:16] LABS: Basophils # (auto) 0.02 K/uL (0-0.2); Basophils % (auto) 0.3 %; Eosinophils % (auto) 2.6 %; Immature Granulocytes # (auto) 0.07 K/uL (0.00-0.02); Immature Granulocytes % (auto) 0.9 %; Lymphocytes # (auto) 4.02 K/uL (1.2-3.4); Lymphocytes % (auto) 52.2 %; Monocytes # (auto) 0.58 K/uL (0.11-0.59); Monocytes % (auto) 7.5 %; Neutrophils # (auto) 2.81 K/uL (1.4-6.5); Neutrophils % (auto) 36.5 %
[2021-04-29] MEDS: POLYETHYLENE (MIRALAX) 17 GM PACK PO SCH (17:46)
[2021-04-29] MEDS ORDERED: bisacodyL 5 MG TABEC PO ONE (18:00)
[2021-04-29] MEDS: rOPINIRole HCL 0.25 MG TABLET PO SCH (21:17)
[2021-04-29] MEDS: DIVALPROEX EXTENDED RELEASE 500 MG TAB PO SCH (21:18)
[2021-04-29] MEDS: QUEtiapine FUMARATE 200 MG TAB PO SCH (21:19)
[2021-04-30] MEDS: POLYETHYLENE (MIRALAX) 17 GM PACK PO SCH (02:32)
[2021-04-30] MEDS: NICOTINE POLACRILEX 2 MG GUM MT PRN ×2 (03:28→18:17)
[2021-04-30 08:16] LABS: Hematocrit (blood only) 40.8 % (37-47); Hemoglobin 13.7 g/dL (12.0-16.0); Mean Corpuscular Hemoglobin 31.6 pg (25-34); Mean Corpuscular Hgb Conc 33.6 g/dL (32-36); Mean Corpuscular Volume 94.2 fL (80-100); Mean Platelet Volume 9.7 fL (7.4-10.4); Platelet Count 237 K/uL (130-400); RDW Coefficient of Variation 13.3 % (11.5-14.5); Red Blood Count 4.33 M/uL (4.2-5.4); White Blood Count 8.33 K/uL (4.8-10.8)
[2021-04-30] MEDS: cephALEXin 250 MG CAP PO SCH ×4 (08:48→21:39)
[2021-04-30] MEDS: THIAMINE HCL 100 MG TAB PO SCH ×2 (08:48→21:15)
[2021-04-30] MEDS: LORATADINE 10 MG TAB PO SCH (08:48)
[2021-04-30] MEDS: busPIRone 15 MG TAB PO SCH ×3 (08:48→21:16)
[2021-04-30] MEDS: PANTOprazole 40 MG TAB PO SCH ×2 (08:48→21:16)
[2021-04-30] MEDS: ESCITALOPRAM OXALATE 20 MG TAB PO SCH (08:48)
[2021-04-30] MEDS: RIVAROXABAN 20 MG TAB PO SCH (08:48)
[2021-04-30] MEDS: GABAPENTIN 100 MG CAP PO SCH ×2 (08:48→11:50)
[2021-04-30] MEDS: clonazePAM 0.5 MG TAB PO SCH ×2 (08:48→21:18)
[2021-04-30 08:49] LABS: BUN Creatinine Ratio 10.6 (10-20); Calcium 9.4 mg/dl (8.5-10.1); Est GFR (African American) 103.3 ml/min; Est GFR (Non-African American) 89.1 ml/min; Potassium 3.9 mmol/L (3.5-5.1)
[2021-04-30 09:19] LABS: Basophils # (auto) 0.03 K/uL (0-0.2); Basophils % (auto) 0.4 %; Eosinophils % (auto) 2.4 %; Immature Granulocytes # (auto) 0.07 K/uL (0.00-0.02); Immature Granulocytes % (auto) 0.8 %; Lymphocytes # (auto) 4.25 K/uL (1.2-3.4); Monocytes # (auto) 0.69 K/uL (0.11-0.59); Monocytes % (auto) 8.3 %; Neutrophils # (auto) 3.09 K/uL (1.4-6.5); Neutrophils % (auto) 37.1 %
--- NOTE | 2021-04-30 09:44 | History & Physical Bridge Note ---
Date of Service April 30, 2021 History & Physical Bridge Note I have examined the patient, reviewed the History & Physical and in the interval since the performance of the History & Physical I have noted the following changes of clinical significance: no changes noted. Patient reports she completed the bowel prep and was pleasantly surprised that it went well. She reports liquid, clear stools at present. She has been NPO. No further complaints of n/v, abdominal pain, or bleeding. Supervising Physician Co-Signing Physician Notes Agree with IVAN Perez as above Abd: Soft, NT, ND, +BS Continue current therapy Proceed with EGD and colonoscopy now Further recommendations to follow above noted testing.
[2021-04-30] MEDS: LACTATED RINGER'S 1,000 ML IV SCH (11:50)
--- NOTE | 2021-04-30 14:13 | Anesthesiology Consultation ---
Date of Service April 30, 2021 Assessment & Plan (1) Encounter for pre-operative examination: Chart Review Chart Review: Acceptable Risk for Surgery, Patient NOT seen in Pre Admission Testing and data entry assistant initiated Consults Requested none ASA ASA3 Proposed Anesthesia Anesthesia Type: MAC Risk / Benefits Reviewed With: PT / POA / Parent / Guardian, Accepts Plan and Informed Consent Obtained History Surgery Operation Date: 04/30/21 16:30 Proposed Procedures p Colonoscopy EGD Dr. Chris East Case, DO Height/Weight Height: 5 ft Weight: 102.1 kg Allergies Allergy/AdvReac Type Severity Reaction Status Date / Time egg AdvReac Severe Vomiting Verified 04/26/21 22:19 Penicillins AdvReac Severe Vomiting Verified 04/26/21 22:19 Medications Home Medications Medication Instructions Recorded Confirmed Last Taken Creon 1 cap PO TID 10/25/20 04/26/21 04/25/21 Xarelto 20 mg PO QAM 10/25/20 04/26/21 04/25/21 buspirone 15 mg PO TID 10/25/20 04/26/21 04/25/21 clonazepam 0.5 mg PO BID 10/25/20 04/26/21 04/25/21 gabapentin See Rx Instructions .ROUTE .COMPLEX 10/25/20 04/26/21 04/25/21 pantoprazole 40 mg PO QAM 10/25/20 04/26/21 04/25/21 divalproex 1,500 mg PO HS #0 tab 11/01/20 04/26/21 04/25/21 ferrous sulfate 325 mg PO Q OTHER DAY #30 tab 11/01/20 04/26/21 04/25/21 quetiapine 400 mg PO HS #0 tab 11/01/20 04/26/21 04/25/21 thiamine HCl (vitamin B1) [Vitamin 100 mg PO BID #30 tab 11/01/20 04/26/21 04/25/21 B-1] cyanocobalamin (vitamin B-12) 1,000 mcg PO BID 03/18/21 04/26/21 04/25/21 [Vitamin B-12] escitalopram oxalate 20 mg PO QAM 03/18/21 04/26/21 04/25/21 metformin 500 mg PO BID 03/18/21 04/26/21 04/25/21 ropinirole 0.5 mg PO HS 03/18/21 04/26/21 04/25/21 Probiotic W/Cranberry 1 tab PO DAILY 04/26/21 04/26/21 04/25/21 ibuprofen 200 mg PO DIRECTED PRN 04/26/21 04/26/21 Unknown loratadine 10 mg PO QAM 04/26/21 04/26/21 04/25/21 Active Medications Generic Name Dose Route Start Last Admin Trade Name Freq PRN Reason Stop Dose Admin Buspirone HCl 15 mg 04/27/21 09:00 04/30/21 13:41 Buspirone 15 Mg Tab PO 05/27/21 08:59 Not Given TID MARY Cephalexin HCl 250 mg 04/28/21 17:00 04/30/21 13:40 Cephalexin 250 Mg Cap PO 05/03/21 16:59 Not Given QID MARY Clonazepam 0.5 mg 04/27/21 09:00 04/30/21 08:48 Clonazepam 0.5 Mg Tab PO 05/27/21 08:59 Not Given BID MARY Divalproex Sodium 1,500 mg 04/27/21 21:00 04/29/21 21:18 Divalproex Extended Release 500 Mg Tab PO 05/27/21 20:59 1,500 mg HS MARY Administration Escitalopram Oxalate 20 mg 04/27/21 09:00 04/30/21 08:48 Escitalopram Oxalate 20 Mg Tab PO 05/27/21 08:59 Not Given QAM MARY Gabapentin 100 mg 04/27/21 08:00 04/30/21 11:50 Gabapentin 100 Mg Cap PO 05/27/21 07:59 Not Given BID@0800,1200 MARY Lactated Ringer's 1,000 mls @ 80 mls/hr 04/30/21 11:30 04/30/21 11:50 Lr IV 05/30/21 11:29 80 mls/hr .[id number] MARY Administration Ibuprofen 200 mg 04/27/21 02:55 04/28/21 23:52 Ibuprofen 200 Mg Tab PO 05/27/21 02:54 200 mg Q8H PRN Administration Pain Loratadine 10 mg 04/27/21 09:00 04/30/21 08:48 Loratadine 10 Mg Tab PO 05/27/21 08:59 Not Given QAM MARY Nicotine Polacrilex 2 piece 04/28/21 15:03 04/30/21 03:28 Nicotine Polacrilex 2 Mg Gum MT 05/28/21 15:02 2 piece PRN PRN Administration nicotine withdrawal Pantoprazole Sodium 40 mg 04/29/21 21:00 04/30/21 08:48 Pantoprazole 40 Mg Tab PO 05/29/21 20:59 Not Given BID MARY Quetiapine Fumarate 400 mg 04/27/21 21:00 04/29/21 21:19 Quetiapine Fumarate 200 Mg Tab PO 05/27/21 20:59 400 mg HS MARY Administration Rivaroxaban 20 mg 04/27/21 09:00 04/30/21 08:48 Rivaroxaban 20 Mg Tab PO 05/27/21 08:59 Not Given QAM MARY Ropinirole HCl 0.5 mg 04/27/21 21:00 04/29/21 21:17 Ropinirole Hcl 0.25 Mg Tablet PO 05/27/21 20:59 0.5 mg HS MARY Administration Thiamine HCl 100 mg 04/27/21 09:00 04/30/21 08:48 Thiamine Hcl 100 Mg Tab PO 05/27/21 08:59 Not Given BID MARY Past Medical History Medical History Anemia Anxiety and depression Arthritis Aspiration pneumonia Diabetes GERD (gastroesophageal reflux disease) History of pulmonary embolism Hyperparathyroidism Iron deficiency anemia Irritable bowel syndrome Rectal bleeding Schizoaffective disorder Smoking Past Surgical History Surgical History History of section x2 Social History Smoking Status: Current every day smoker tobacco type: cigarettes Smoking cigarettes per day: 3 packs Do You Dip or Chew Tobacco: No Hx Alcohol Use: No Hx Substance Use: No Physical Exam Vital Signs Last Vital Signs Temp 37.1 C 04/30/21 11:53 Pulse 80 04/30/21 11:53 Resp 18 04/30/21 11:53 BP 129/70 04/30/21 11:53 Pulse Ox 92 04/30/21 11:53 Testing Laboratory Results 04/30/21 08:02 04/30/21 08:02 Urine Color Yellow 04/26/21 22:14 Urine Appearance Cloudy (Clear) A 04/26/21 22:14 Urine pH 5.5 (4.5-7.5) 04/26/21 22:14 Ur Specific [place] 1.013 (1.000-1.030) 04/26/21 22:14 Urine Protein Negative (Negative) 04/26/21 22:14 Urine Glucose (UA) Negative (Negative) 04/26/21 22:14 Urine Ketones Trace (Negative) H 04/26/21 22:14 Urine Nitrite Negative (Negative) 04/26/21 22:14 Ur Leukocyte Esterase 2+ (Negative) H 04/26/21 22:14 Urine WBC (Auto) >30 /hpf (0-5) H 04/26/21 22:14 Urine RBC (Auto) 0-4 /hpf (0-4) 04/26/21 22:14 U Hyaline Cast (Auto) 5-10 /lpf (0-5) H 04/26/21 22:14 U Epithel Cells (Auto) >30 /lpf (0-5) H 04/26/21 22:14 Urine Bacteria (Auto) 2+ (Negative) H 04/26/21 22:14 04/27/21 04:25 WBC Smear - Final Stool Escherichia coli Shiga Toxins Test - Final Stool Culture - Final No Salmonella isolated, No Shigella isolated, No Campylobacter jejuni isolated. 04/26/21 22:14 Urine Culture - Final Urine,Clean Catch Escherichia coli 04/26/21 22:57 Aerobic Blood Culture - Preliminary Blood No growth in Aerobic bottle after 48 hours. Anaerobic Blood Culture - Preliminary No growth in Anaerobic bottle after 48 hours. 04/26/21 23:04 Aerobic Blood Culture - Preliminary Blood No growth in Aerobic bottle after 48 hours. Anaerobic Blood Culture - Preliminary No growth in Anaerobic bottle after 48 hours. 04/30/21 04/30/21 11:39 07:23 POC Glucose 117 H 123 H Electrocardiogram Date: 04/26/21 Test Reason : Blood Pressure : / mmHG Vent. Rate : 107 BPM Atrial Rate : 107 BPM P-R Int : 154 ms QRS Dur : 132 ms QT Int : 394 ms P-R-T Axes : 047 126 016 degrees QTc Int : 525 ms Sinus tachycardia Right bundle branch block Left posterior fascicular block Bifascicular block Abnormal ECG When compared with ECG of 19-MAR-2021 18:39, No significant change was found Confirmed by Sunil Jacobson ([id number]) on 04/27/2021 10:00:42 AM Chest X-Ray Date: 04/26/21 XR chest 1V portable CLINICAL HISTORY: Vomiting COMPARISON STUDY: No 1320 FINDINGS: The cardiac and mediastinal contours are normal. There is no evidence of focal pulmonary consolidation. There is no evidence of failure. No pleural effusions are visualized.[There is a linear subsegmental atelectasis the left lung base. There is no free intraperitoneal air. IMPRESSION: No active disease in the chest.
--- NOTE | 2021-04-30 14:32 | Medical Student Progress Note ---
Date of Service April 30, 2021 Assessment & Plan (1) Vomiting and diarrhea: Patient is a 65 y/o DM2, IBS, GERD, and history of PE, and schizoaffective disorder (depressive subtype) presenting 2 days ago with nausea, vomiting, and diarrhea. She has been hospitalized several times every 1-2 months for similar symptoms and has a history of binge eating. Nausea, vomiting and diarrhea * Appreciate GI consult due to history of bleeding per rectum, current positive fecal occult blood, and repeated hospitalization for vomiting and diarrhea. She is currently managed on protonix, zofran, maalox, magnesium hydroxide. Negative c-diff. * Hgb decreased from 16.2 (04/27) to 12.8 (04/28), stable at 12.5 on 04/29. Follow daily cbc to trend. The decrease could be due to dilution from increased fluids or due to GI bleeding. * At home, uses Creon pancreatic enzymes and Questran (2 packs per day) to control GI symptoms like diarrhea. * EGD, colonoscopy, and polypectomy done today while inpatient. Waiting for pathology results on polyps and biopsies. Bacteriuria * UA positive for leuk est, >30 WBC, epithelial cells, 2+ bacteria, mucus. Concern of contamination due to epithelial cells. * Urine culture grew >100,000 gram negative bacilli. * Started on Keflex 250mg PO QID for 5 days disc. on 05/03. * Patient denies dysuria or frequency but had lightheadedness and weakness on 04/28. Feels well on 04/29 and 04/30. Possible UTI in setting of diarrhea. Tobacco use * She has been smoking 3 packs per day. Unclear pack year history. She says she switched from binge eating to binge smoking. * She has tried to quit in the past using nicotine patches but had severe GI distress and GI bleeding and was admitted at [facility]. * She is very committed to stop smoking. * Recommend outpatient follow-up with PCP and psychiatrist to find best smoking cessation regimen given past reaction to nicotine patch and psychiatric medications that may interact with pharmacologic aids. * She will try Nicorette gum 2mg PRN while inpatient. Wheezing, SOB with exertion * Suspect secondary to COPD given patient's extensive smoking history * Recommend outpatient PFTs DM2 * Hold home metformin. On sliding scale insulin inpatient. * Switch from metformin 500 mg PO BID to metformin ER 500 mg PO BID on discharge due to less GI side effects. * A1C 6.5% (03/19/21), previously 13.9% (11/03) Schizoaffective disorder, anxiety, depression * Managed by Dr. Cadet in [place]. * High anxiety and psychiatric issues are a barrier to her going to scheduled outpatient appointments and doing medical procedures like the colonoscopy. She has repeatedly no-showed to appointments due to anxiety about the visit. This should be considered when scheduling follow-up care. FEN: IVF due to soft pressures and NPO GI: NPO after ahead of EGD and colonoscopy (scheduled for 04/30). DM2 diet post procedure. DVT ppx: Xarelto Code status: full code Dispo: med/surg This plan was discussed with Resident Dr. Erwin Newton (2) Bacteriuria: (3) Smoking: (4) Diabetes: Diabetes mellitus complication status: without complication Diabetes mellitus terminal clerk insulin use: with detention use Diabetes mellitus type: type 2 Qualified Code(s): E11.9 - Type 2 diabetes mellitus without complications; Z79.4 - [facility] (current) use of insulin (5) Schizoaffective disorder: Schizoaffective disorder type: depressive Qualified Code(s): F25.1 - Schizoaffective disorder, depressive type (6) Anxiety and depression: Admission and Anticipated Discharge Date Admission Date: April 27, 2021 Supervising Attestation I also saw the patient with the medical student and resident physician and I personally completed the history and physical examination. The medical student assisted in the documentation of the services. I agree with impression and plan as noted in this documentation and as summarized below. Exam 126/80, 72, 18, 36.8, 92% on room air Data Hemoglobin 13.7 BMP is unremarkable except for a mildly elevated glucose of 125. Impression and plan Vomiting and diarrhea, improved History of IBS Heme positive stools with reported history of blood per rectum Hemoglobin is stable EGD and colonoscopy today Tobacco abuse Nicotine gum Morbid obesity BMI greater than 40 Noted complicating factor UTI Keflex 500 mg p.o. twice daily Subjective No events overnight. Doing well this morning and tolerated miralax bowel prep well. Passing clear/francois liquids, completed prep. Denies lightheadedness, vertigo, nausea, vomiting, diarrhea. Tried Nicorette gum 2mg last night and early this morning and tolerated it well. Review of Systems Constitutional: + weakness (less weak than yesterday) Respiratory: + dyspnea (chronic); no cough Musculoskeletal: + joint pain Neurologic: no vertigo Psychiatric: + anxiety Physical Exam Constitutional: + obese; no acute distress Respiratory: normal respiratory effort Auscultation: + diminished lung sounds (lower lobes bilaterally) Cardiovascular: RRR, no murmur, no edema Gastrointestinal (Abdomen): Inspection/Auscultation: abdomen normal to inspec tion and normal bowel sounds Percussion/Palpation: abdomen soft; no guarding Psychiatric: Mood: + anxious mood Results & Data ([facility]) Vital Signs (Past 12 Hours) Vital Signs Temp Pulse Pulse Resp BP BP Pulse Ox 04/30/21 11:53 37.1 C 80 18 129/70 92 04/30/21 09:30 36.5 C 69 18 111/75 94 04/30/21 07:55 36.6 C 72 18 90/61 L 94 04/30/21 07:05 74 04/30/21 04:00 36.6 C 79 20 131/83 94
[2021-04-30] MEDS ORDERED: PROPOFOL IV EMULSION 10 MG/ML 20 ML VIAL IV ONE ×3 (15:16→16:17)
[2021-04-30] MEDS ORDERED: LIDOCAINE 2% 2 ML VIAL/AMP(20MG/ML) INFIL ONE ×2 (15:16)
[2021-04-30] MEDS ORDERED: MIDAZOLAM HCL 1 MG/ML 2ML VIAL ONE (15:31)
[2021-04-30] MEDS ORDERED: GLYCOPYRROLATE 0.2 MG/ML VIAL ONE (15:31)
--- NOTE | 2021-04-30 16:52 | Anesthesiology Progress Note ---
Date of Service April 30, 2021 Anesthesia Post Procedure Vital Signs Vital Signs: Temp Pulse Pulse Resp BP BP Pulse Ox 04/30/21 16:48 77 18 126/62 93 04/30/21 16:33 81 20 143/82 H 92 04/30/21 15:43 77 04/30/21 15:10 36.6 C 75 18 122/86 92 04/30/21 15:00 36.9 C 81 18 120/82 95 04/30/21 11:53 37.1 C 80 18 129/70 92 04/30/21 09:30 36.5 C 69 18 111/75 94 04/30/21 07:55 36.6 C 72 18 90/61 L 94 04/30/21 07:05 74 04/30/21 04:00 36.6 C 79 20 131/83 94 04/30/21 00:19 75 04/29/21 23:05 37.1 C 73 20 121/83 93 04/29/21 19:30 36.9 C 77 20 137/84 92 Pain Intensity Generalized: Pain Intensity: 6 Notes Mental Status: alert / awake / arousable and participated in evaluation Patient Amnestic to Procedure: Yes Nausea / Vomiting: adequately controlled Pain: adequately controlled Airway Patency, RR, SpO2: stable & adequate BP & HR: stable & adequate Hydration State: stable & adequate Anesthetic Complications: no major complications apparent and Pt Satisfied with anesthetic care
--- NOTE | 2021-04-30 16:56 | GI REPORT ---
Patient Name: Tierra Gil Procedure Date: 04/30/2021 3:30 PM Date of : 1955 Admit Type: Inpatient Age: 65 Gender: Female Attending MD: Des Perez DO Procedure: Colonoscopy Providers: Des Perez DO Referring MD: Jaime Alexander Indications: Chronic diarrhea, Rectal bleeding Medicines: Monitored Anesthesia Care Complications: No immediate complications. Estimated Blood Loss: Estimated blood loss: none. Procedure: Pre-Anesthesia Assessment: - Prior to the procedure, a History and Physical was performed, and patient medications and allergies were reviewed. The patient's tolerance of previous anesthesia was also reviewed. The risks and benefits of the procedure and the sedation options and risks were discussed with the patient. All questions were answered, and informed consent was obtained. Prior Anticoagulants: The patient has taken Xarelto (rivaroxaban), last dose was 5 days prior to procedure. ASA Grade Assessment: III - A patient with severe systemic disease. After reviewing the risks and benefits, the patient was deemed in satisfactory condition to undergo the procedure. After I obtained informed consent, the scope was passed under direct vision. Throughout the procedure, the patient's blood pressure, pulse, and oxygen saturations were monitored continuously. The Colonoscope was introduced through the anus and advanced to the cecum, identified by appendiceal orifice and ileocecal valve. The colonoscopy was performed without difficulty. The patient tolerated the procedure well. The quality of the bowel preparation was good. The ileocecal valve, appendiceal orifice, and rectum were photographed. Findings: The perianal and digital rectal examinations were normal. Five pedunculated and sessile polyps were found in the rectum and sigmoid colon. The polyps were 5 to 15 mm in size. These polyps were removed with a hot snare. Resection and retrieval were complete. Multiple small-mouthed diverticula were found in the sigmoid colon. Non-bleeding internal hemorrhoids were found during retroflexion. The hemorrhoids were small. Several random biopsies were obtained with cold forceps for histology in the entire colon. Fluid aspiration for cell count and differential, bacterial cultures and Clostridium difficile was performed. Impression: - Five 5 to 15 mm polyps in the rectum and in the sigmoid colon, removed with a hot snare. Resected and retrieved. - Diverticulosis in the sigmoid colon. - Non-bleeding internal hemorrhoids. - Several random biopsies were obtained in the entire colon. - Fluid aspiration was performed. Recommendation: - Resume previous diet. - Continue present medications. - Repeat colonoscopy for surveillance based on pathology results. - Return to primary care physician as previously scheduled. Des Perez, DO 04/30/2021 4:55:49 PM This report has been signed electronically. Note Initiated On: 04/30/2021 3:30 PM Number of Addenda: 0 I attest to the content of the Intraoperative Record and orders documented therein, exceptions below {[id number]}
--- NOTE | 2021-04-30 16:58 | GI REPORT ---
Patient Name: Tierra Gil Procedure Date: 04/30/2021 3:31 PM Date of : 1955 Admit Type: Inpatient Age: 65 Gender: Female Attending MD: Des Perez DO Procedure: Upper GI endoscopy Providers: Des Perez DO Referring MD: Jaime Alexander Indications: Recent gastrointestinal bleeding, Diarrhea Medicines: Monitored Anesthesia Care Complications: No immediate complications. Estimated Blood Loss: Estimated blood loss: none. Procedure: Pre-Anesthesia Assessment: - Prior to the procedure, a History and Physical was performed, and patient medications and allergies were reviewed. The patient's tolerance of previous anesthesia was also reviewed. The risks and benefits of the procedure and the sedation options and risks were discussed with the patient. All questions were answered, and informed consent was obtained. Prior Anticoagulants: The patient has taken Xarelto (rivaroxaban), last dose was 5 days prior to procedure. ASA Grade Assessment: III - A patient with severe systemic disease. After reviewing the risks and benefits, the patient was deemed in satisfactory condition to undergo the procedure. After obtaining informed consent, the endoscope was passed under direct vision. Throughout the procedure, the patient's blood pressure, pulse, and oxygen saturations were monitored continuously. The Colonoscope was introduced through the mouth, and advanced to the third part of duodenum. The upper GI endoscopy was accomplished without difficulty. The patient tolerated the procedure well. Findings: The esophagus was normal. Multiple 4 to 10 mm sessile polyps with no stigmata of recent bleeding were found in the gastric fundus and on the greater curvature of the stomach. Biopsies were taken with a cold forceps for histology. Localized mild inflammation characterized by erythema was found in the gastric antrum. Biopsies were taken with a cold forceps for histology. The examined duodenum was normal. Impression: - Normal esophagus. - Multiple gastric polyps. Biopsied. - Gastritis. Biopsied. - Normal examined duodenum. Recommendation: - Resume previous diet. - Continue present medications. - Await pathology results. - Return to primary care physician as previously scheduled. Des Perez DO 04/30/2021 4:58:23 PM This report has been signed electronically. Note Initiated On: 04/30/2021 3:31 PM Number of Addenda: 0 I attest to the content of the Intraoperative Record and orders documented therein, exceptions below {[id number]}
[2021-04-30] MEDS: rOPINIRole HCL 0.25 MG TABLET PO SCH (21:16)
[2021-04-30] MEDS: DIVALPROEX EXTENDED RELEASE 500 MG TAB PO SCH (21:16)
[2021-04-30] MEDS: QUEtiapine FUMARATE 200 MG TAB PO SCH (21:16)
[2021-05-01] MEDS: NICOTINE POLACRILEX 2 MG GUM MT PRN (00:13)
[2021-05-01] MEDS: LACTATED RINGER'S 1,000 ML IV SCH ×2 (01:55→12:06)
[2021-05-01] MEDS: busPIRone 15 MG TAB PO SCH ×2 (08:08→12:32)
[2021-05-01] MEDS: GABAPENTIN 100 MG CAP PO SCH ×2 (08:08→12:32)
[2021-05-01] MEDS: cephALEXin 250 MG CAP PO SCH ×2 (08:08→12:32)
[2021-05-01] MEDS: RIVAROXABAN 20 MG TAB PO SCH (08:09)
[2021-05-01] MEDS: ESCITALOPRAM OXALATE 20 MG TAB PO SCH (08:09)
[2021-05-01] MEDS: clonazePAM 0.5 MG TAB PO SCH (08:09)
[2021-05-01] MEDS: LORATADINE 10 MG TAB PO SCH (08:09)
[2021-05-01] MEDS: THIAMINE HCL 100 MG TAB PO SCH (08:09)
[2021-05-01] MEDS: PANTOprazole 40 MG TAB PO SCH (08:09)
[2021-05-01 09:07] LABS: Basophils # (auto) 0.02 K/uL (0-0.2); Basophils % (auto) 0.2 %; Eosinophils # (auto) 0.21 K/uL (0-0.5); Eosinophils % (auto) 2.4 %; Hematocrit (blood only) 40.4 % (37-47); Immature Granulocytes # (auto) 0.11 K/uL (0.00-0.02); Immature Granulocytes % (auto) 1.3 %; Lymphocytes # (auto) 3.79 K/uL (1.2-3.4); Lymphocytes % (auto) 43.9 %; Mean Corpuscular Hemoglobin 31.9 pg (25-34); Mean Corpuscular Hgb Conc 34.7 g/dL (32-36); Mean Platelet Volume 9.6 fL (7.4-10.4); Monocytes # (auto) 0.83 K/uL (0.11-0.59); Monocytes % (auto) 9.6 %; Neutrophils # (auto) 3.68 K/uL (1.4-6.5); Neutrophils % (auto) 42.6 %; Platelet Count 224 K/uL (130-400); RDW Coefficient of Variation 13.1 % (11.5-14.5); RDW Standard Deviation 43.6 fL (36.4-46.3); Red Blood Count 4.39 M/uL (4.2-5.4); White Blood Count 8.64 K/uL (4.8-10.8)
[2021-05-01 09:50] LABS: BUN Creatinine Ratio 9.4 (10-20); Calcium 9.3 mg/dl (8.5-10.1); Creatinine Clr Calc Pharmacy 82.2 ml/min; Est GFR (African American) 98.3 ml/min; Est GFR (Non-African American) 84.8 ml/min; Potassium 3.8 mmol/L (3.5-5.1)
--- NOTE | 2021-05-01 12:43 | Gastroenterology Progress Note ---
Date of Service May 01, 2021 Assessment & Plan (1) Nausea and vomiting: -Continue Protonix 40 mg once daily on discharge -Ok to use Zofran 4 mg q 6 hr prn -Follow-up as outpatient; if symptoms continue, consider gastric emptying study (2) Diarrhea: Suspect overflow diarrhea; Questran could be worsening this. -Metamucil 1-2 TBSP daily Admission and Anticipated Discharge Date Admission Date: April 27, 2021 Supervising Physician Co-Signing Physician Notes Agree with IVAN Perez as above Patient was discharged prior to my evaluation Subjective Patient is a 65 yo female with n/v/d. Symptoms resolved. EGD indicated gastritis & gastric polyps. Colonoscopy indicated polyps, diverticulosis, & internal hemorrhoids which likely are the source of her bleeding. Random biopsies of the colon are negative. She denies any further symptoms at present and is pleased with the good news. Review of Systems Constitutional: no fever and no chills Respiratory: no cough and no dyspnea Cardiovascular: no chest pain Gastrointestinal: no abdominal pain, no nausea, no vomiting, no constipation, no diarrhea/loose stools and no blood in stools Results & Data Results & Data ([facility] Vital Signs (Past 12 Hours) Vital Signs Temp Pulse Pulse Resp BP BP Pulse Ox 05/01/21 11:42 36.7 C 74 16 117/77 168/95 H 93 05/01/21 07:11 36.7 C 74 16 168/95 H 93 05/01/21 06:19 69 05/01/21 04:00 37.2 C 81 20 125/88 95 PG Care Time/CCT Total # of Minutes Spent Total Time Spent with Patient: Total time spent is greater than 50% in coordination of care (as documented) at patient's floor/unit and/or counseling patient: Coding Level of Care Code 00350 Subseq Hosp Care Lvl 2 Diagnoses Nausea and vomiting R11.2 Diarrhea R19.7
--- NOTE | 2021-05-01 12:51 | Med Student Discharge Summary ---
Date of Service May 01, 2021 Admission HPI Per Admitting Provider Tierra Gil is a 65-year-old female with past medical history significant for type 2 diabetes, schizoaffective disorder (depressive type), irritable bowel syndrome, GERD, history of pulmonary embolism; who presents for concerns of new onset nausea, vomiting, diarrhea following eating hamburger helper yesterday. Acknowledges that this is happened many times over the last several years as she continues to have issues intermittently with binging eating. However has not had this in the last month since recently being discharged from the hospital for similar kind of episodes. Overall has been feeling well, with the exception of at times feeling more short of breath. She attributes this to for consistent and persistent smoking, smoking handrolled cigarettes greater than 3 packs/day, she like this as it was limiting her food consumption and seemed to have helped control her diabetes. Currently feels overall well with some persistent nausea, vomiting, diarrhea at this time; denies chest pain, shortness of breath, wheeze, palpitations, lightheadedness, dizziness, fatigue. Admission Exam (Per Admitting) Constitutional Constitutional: WD/WN, vitals as above Eyes: PERRL, conjunctivae normal, anicteric sclerae Respiratory: normal respiratory effort, lungs clear to auscultation Auscultation: + rhonchi and + wheezes; no crackles and no rales Cardiovascular: Rate/Rhythm: regular rate and regular rhythm Heart Sounds: no gallop, no murmur and no cardiac rub Vessels: normal peripheral pulses; no JVD Extremities: no edema Gastrointestinal (Abdomen): Inspection/Auscultation: normal bowel sounds; abdomen not distended Percussion/Palpation: + abdomen tender, abdomen soft and normal to percussion; no guarding Musculoskeletal: no cyanosis or clubbing, extremities motor strength 5/5 Skin: no rashes, warm and dry Neurologic: PERRL, EOMI, accommodation nl, no face palsy, no dysarthria CN's II-XI intact bilaterally and moves all extremities Psychiatric: Orientation: alert and oriented x 3 Discharge Data Consultations 04/27/21 00:22 ED Decision to Admit Stat 04/28/21 17:35 Consult Gastroenterology Routine Procedures Performed Operation Date: 04/30/21 16:30 Actual Procedures p EGD Biopsy Cytology - Des [place] Case, DO s Colonoscopy Biopsy Cytology - Des Terry. Case, DO p Colonoscopy Polypectomy - Des Terry. Case, DO Hospital Course (1) Nausea and vomiting: Nausea, vomiting, diarrhea * These symptoms was well controlled on protonix, zofran, maalox, and magnesium hydroxide. Infectious work-up negative. EGD and colonoscopy performed on 04/30 while inpatient showing gastric polyps, gastritis, sigmoid polyps, and internal hemorrhoids. No evidence of active gross bleeding or ulcers. Polyps and random biopsy samples sent to pathology. Expect results in 3-7 days. Follow-up outpatient with PCP. Bacteriuria * UA taken at admission was positive for bacteria and epithelial cells. Patient had no dysuria or urinary frequency but was feeling weak and tired. Urine culture positive for gram negative bacilli, treated with 5 days of Keflex 250mg PO BID, discontinue on 05/03/21. DM2 * Patient's home DM2 medication was held on admission and she was managed on sliding scale insulin. Patient was encouraged to consider switching from regular metformin 500mg PO BID to metformin 500mg PO BID due to less GI side effects. Follow-up with PCP outpatient. Tobacco Use * On admission, patient was smoking 3.5 packs per day and was very motivated to stop smoking. Patient started on Nicorette gum 2mg PRN which was effective for cravings. Recommend continuing outpatient. Wheezing * Recommend outpatient PFTs and COPD evaluation due to wheezing on lung exam and smoking history of 3 packs per day. Schizoaffective disorder, anxiety, depression * Managed by Kevin Lainez PA-C in [facility]. Patient has intense anxiety about medical appointments. Case management will assist with arranging supportive care at home. (2) Diarrhea: (3) Bacteriuria: (4) Smoking: (5) Schizoaffective disorder: Discharge Plan Discharge Items Patient Disposition: Home - Self-Care Reason For Visit: GASTROENTERITIS Discharge Diagnosis: Gastoenteritis Activity: Resume your previous activity Non-emergency contact: Primary Care Provider Call non-emergency contact if: your symptoms worsen Follow-up/Referrals: Jaspreet Logan DO [Primary Care Provider] - 05/06/21 9:00 am (Please make sure to take all your discharge information with you to your appointment.) Diet: Regular Addtl Attending Provider Instructions: You were admitted to the hospital for nausea, vomiting, and diarrhea (also known as gastroenteritis). You were treated with medicine, and procedures were performed (colonoscopy and esophagogastroduodenoscopy) to evaluate further. We also found a urinary tract infection that we treated with antibiotics. We feel it is safe for you to return home and follow up with your primary care physician. A discharge summary will be sent to your primary care physician to ensure continuity of care. Please bring this discharge summary with you to your next office appointment so that your provider can review it at that time. Follow-up appointments: Make a follow-up appointment with your PCP within the next week. It is very important that you follow up with them shortly after discharge from the hospital. Keep all your follow-up appointments as already scheduled. If you cannot make an appointment, notify your provider. Medications: Your medication list has been reviewed and reconciled upon discharge to ensure accuracy and continuity of care. An updated list of all your medications is included with your hospital discharge paperwork. Please review this list closely, and make note of any changes. We have sent nicotine gum to your pharmacy. Follow the instructions provided on the gum packaging, since nicotine gum is used in a unique way, as we discussed in the hospital. Talk with your PCP about how to proceed with smoking cessation, as there are many resources that can help you quit and stay quit! We have sent cephalexin to your pharmacy. Cephalexin is an antibiotic to treat your urinary tract infection. Take cephalexin (250mg) one tablet four times daily between and Wednesday. You will take your last dose of cephalexin in the evening on Wednesday, 05/03. On Wednesday, 05/04, stop taking cephalexin. Take your medications as instructed; do not skip a dose of your medicines. Make sure all of your doctors know every medicine you are taking (including cjwy-jgj-xdgghss medicines, vitamins, and supplements). Call your primary care provider before taking any new medicines (including pzdg-nmy-lciiqeb medicines, vitamins, and supplements), because some of these may interact with your current medications, or may make your symptoms worse. Tell your primary care provider if you cannot afford your medications. CONTACT YOUR PRIMARY CARE PROVIDER if you experience any of the following: Blood in your stool Vomiting Fever, chills Persistent abdominal pain Difficulty following your treatment plan, or difficulty taking medications CALL 911 OR GO TO THE EMERGENCY DEPARTMENT if you experience any of the following: Sudden, severe abdominal pain or nausea/vomiting Severe chest pain, or chest pain that radiates (moves) to your jaw or arm Sudden, severe shortness of breath or difficulty breathing Thank you for allowing us to participate in your care. Pending Studies at Discharge: No Stand-Alone Forms: My [facility], Smoking Cessation Medications and DC Order Prescriptions: New cephalexin 250 mg Capsule 250 mg PO QID 3 Days Qty: 12 RF: 0 Continued clonazepam 0.5 mg tablet 0.5 mg PO BID RF: 0 pantoprazole 40 mg tablet,delayed release (DR/EC) 40 mg PO QAM RF: 0 gabapentin 100 mg capsule See Rx Instructions .ROUTE .COMPLEX RF: 0 buspirone 15 mg tablet 15 mg PO TID RF: 0 Creon 12,000-38,000 -60,000 unit capsule,delayed release(DR/EC) 1 cap PO TID RF: 0 Xarelto 20 mg tablet 20 mg PO QAM RF: 0 thiamine HCl (vitamin B1) [Vitamin B-1] 100 mg Tablet 100 mg PO BID Qty: 30 RF: 0 ferrous sulfate 325 mg (65 mg iron) tablet 325 mg PO Q OTHER DAY Qty: 30 RF: 0 divalproex 500 mg tablet extended release 24 hr 1,500 mg PO HS Qty: 0 RF: 0 quetiapine 400 mg tablet 400 mg PO HS Qty: 0 RF: 0 cyanocobalamin (vitamin B-12) [Vitamin B-12] 1,000 mcg tablet 1,000 mcg PO BID RF: 0 ropinirole 0.5 mg tablet 0.5 mg PO HS RF: 0 escitalopram oxalate 20 mg tablet 20 mg PO QAM RF: 0 metformin 500 mg tablet extended release 24hr 500 mg PO BID RF: 0 ibuprofen 200 mg Tablet 200 mg PO DIRECTED PRN (Reason: Pain) RF: 0 loratadine 10 mg Tablet 10 mg PO QAM RF: 0 Probiotic W/Cranberry 1 tab PO DAILY RF: 0 Discharge Orders: Discharge Order (Routine); Ordered 05/01/21 Ordered By: Erwin Maya/Other Patient Handouts: High Blood Sugar (Hyperglycemia), Managing Type 2 Diabetes Admission Data Admit Date/Time: 04/27/21 01:57 Attending Provider: Jaime Alexander Admit Provider: Emanuel Trotter Primary Care Provider: Jaspreet Logan Other Providers: Aaron Pickard ; Des Perez Other Interventions: Discharge Summary Assessment (RN) Last Done: 05/01/21 11:42 Supervising Attestation I also saw the patient with the medical student and resident physician and I personally completed the history and physical examination. The medical student assisted in the documentation of the services. I agree with impression and plan as noted in this documentation and as summarized below. She feels well today. She is quite pleased that the EGD and colonoscopy are now complete. She was relieved to find that there were no significant abnormalities found on either study. She is anxious for discharge today. Exam 117/77, 74, 16, 36.7, 93% on room air Alert and oriented. No distress Abdomen soft and nontender Data Hemoglobin 14, white blood cell count 8.64 BUN 7, creatinine 0.75 Impression and plan Vomiting and diarrhea, improved History of IBS Heme positive stools with reported history of blood per rectum EGD and colonoscopy results reviewed; biopsies/pathology pending. Continue Protonix 40 mg daily Tobacco abuse Nicotine gum Morbid obesity BMI greater than 40 Noted complicating factor UTI 3 additional days of Keflex to complete treatment course
[2021-05-03 22:06] LABS: Calprotectin, Stool 291 mcg/g
--- NOTE | 2021-05-09 14:00 | Coding Query ---
To promote full compliance with coding requirements relating to patient care, provider participation is requested in all cases of auditing coder uncertainty. Please assist us with the question(s) below: Coding Question(s): The diagnosis(es) below was documented in the ER H&P or H&P, then subsequently fell off all further documentation. Please indicate if it is still a possible diagnosis or ruled out. Physician's Response(s): ASPIRATION PNEUMONIA (documented on ER H&P) ( ) Diagnosed and POA ( ) Diagnosed and not POA ( X ) Ruled out ( ) Other (please specify) DIABETIC GASTROPARESIS (documented by Supervising Physician on H&P) ( ) Diagnosed and POA ( ) Diagnosed and not POA ( X ) Ruled out ( ) Other (please specify) MTDD
== END 2021-05-01 13:59 | disposition home or self-care (01) | DRG 392 ==
LOC: ED 21:28 → SUATTDRO 04-27 01:57 → 2W 04-27 01:57

== ENCOUNTER 2022-02-01 23:19 | Observation (INO) ==
--- NOTE | 2022-02-02 00:14 | Emergency Department Note ---
Impression & Plan Acute hyponatremia, Hypomagnesemia, Weakness The patient will be admitted to the [facility] Hospitalist service. ED Provider Note NAME: SID JAVIER AGE: 66 SEX: F ARRIVES VIA: Ambulance INFORMANT: Patient ED PROVIDER(S): Manda Thayer DO CHIEF COMPLAINT: Weakness PLAN: Disposition: Patient will be evaluated by the [facility] service Condition: Fair MEDICAL DECISION MAKING: This is a 66-year-old female patient with history of type 2 diabetes who presents to the emergency department with severe weakness. The patient had an episode of lightheadedness and near syncope with associated diaphoresis. Laboratory studies reveal hyponatremia and hypomagnesemia which may account for the patient's presentation. Patient began to receive IV normal saline solution and IV magnesium. I discussed the case with the [facility]ist and they will evaluate for further management. Triage Nursing notes reviewed and agree with them. Additional history obtained from EMS Prior medical records reviewed Vital Signs: reviewed and unremarkable Differential diagnosis: Hyperglycemia, hypoglycemia, sepsis, hyponatremia, pneumonia ER treatment provided: IV normal saline IV magnesium Diagnostics interpreted by me: ECG: Normal sinus rhythm at a rate of 89 with a right bundle branch block. This is unchanged from previous EKGs. There is no signs of ischemia or ectopy. Cardiac Monitoring: Normal sinus rhythm at a rate of 89 Laboratory studies: See below Imaging studies: As per my interpretation Portable chest x-ray: HPI: 66/F arrives for evaluation of weakness. Patient states that she woke in her usual state of health this morning but as the day progressed she became increasingly weak and somewhat confused. She does admit that she drank an ishmael rmous amount of sweet tea and this may have affected her blood sugar. She did not check her blood sugar throughout the day. She became quite lightheaded and near syncopal while sitting on the toilet in the bathroom. She was extremely diaphoretic and felt fatigued. She states that her legs felt heavy like logs. EMS was called. They found her to have room air oxygen saturation of 86%. The patient is a heavy smoker. ROS: See above HPI for pertinent positives & negatives. A total of 10 systems reviewed and were otherwise negative. PAST MEDICAL HISTORY:See Below PAST SURGICAL HISTORY:See Below FAMILY HISTORY:See Below SOCIAL HISTORY:See Below HOME MEDICATIONS:See list ALLERGIES:See list VITALS:See Below PHYSICAL EXAMINATION: HEENT: Head - normocephalic and atraumatic. Pupils are equal, round, and reactive to light. Extraocular eye muscles are intact, and sclera are anicteric. Nose - moist nasal mucosa without discharge. Mouth - moist buccal mucosa. Oropharynx is nonerythematous and there is no tonsillar exudate or edema noted. Neck: Supple; no cervical lymphadenopathy or JVD Heart: Regular rate and rhythm. There is a normal S1 and S2 with no murmurs, clicks, or gallops appreciated. Lungs: Clear to auscultation bilaterally with no wheezes, rales, or rhonchi. Abdomen: Soft, completely nontender, nondistended, with good bowel sounds. There are no palpable pulsatile masses or hepatosplenomegaly. There is no guarding, rigidity, or rebound noted. Extremities: No evidence of cyanosis, clubbing, or edema. There are easily palpable peripheral pulses. Skin: Pale, warm and dry with good turgor and no rashes. ED COURSE: Times/Reassessments: 2355: The patient was evaluated in room B6. A complete history and physical was performed. A twelve-lead EKG was obtained. An order was placed for continuous cardiac monitoring. The patient was in a normal sinus rhythm at a rate of 89. The patient's blood sugar was 264. Patient home and that she drink a lot of sweet tea throughout the day which could account for this elevated blood sugar. Patient had an ABG with a pH of 7.42 and a normal CO2. Her presentation does not represent hypercarbia. The patient was noted to be significantly hyponatremic and hypomagnesemic. We started her on replacement IV normal saline and IV magnesium. I discussed the case with the [facility] hospitalist and they will evaluate the patient for further inpatient care. Manda Thayer DO Past Med/Surg History Medical History Anemia Anxiety and depression Arthritis Aspiration pneumonia Bacteriuria Diabetes GERD (gastroesophageal reflux disease) History of pulmonary embolism Hyperparathyroidism Hypoxia Iron deficiency anemia Irritable bowel syndrome Schizoaffective disorder Smoking Urine culture positive Vomiting and diarrhea Surgical History History of section x2 Social History Smoking Status: Heavy tobacco smoker Tobacco Type: Cigarettes Cigarettes Per Day: 1.5; Second Hand Exposure: No; Do You Dip or Chew Tobacco: No; Tobacco Cessation Education Requested by Patient: No Hx Alcohol Use: No Hx Substance Use: No Preferred Language: Vietnamese Communication Ability: Effective Steam Press Tender Required: No Beliefs That Will Affect Care: None marital status: Current Living Situation: Family Current Living Situation Comment: Lives with Daughter How many Children do You have: 2 Other Information That Helps Us Care for You: No Feels Safe at Home: Yes Assistive Devices: Denture - Upper and Denture - Lower Allergies Allergies Allergy/AdvReac Type Severity Reaction Status Date / Time egg AdvReac Severe Vomiting Verified 02/02/22 01:44 Penicillins AdvReac Severe Vomiting Verified 02/02/22 01:44 HAY & GRASS Allergy ITCHY EARS Uncoded 02/02/22 01:44 & THROAT, WAYERY EYES TREES Allergy ITCHY EARS Uncoded 02/02/22 01:44 & THROAT, WATERY EYES Home Meds Home Medications Medication Instructions Recorded Confirmed buspirone 15 mg tablet 15 mg PO TID 10/25/20 02/02/22 gabapentin 100 mg capsule See Rx Instructions .ROUTE .COMPLEX 10/25/20 02/02/22 (Neurontin) skqszc-[id number] 1 cap PO TID 10/25/20 02/02/22 12,000-38,000-60,000 unit capsule,delayed rel (Creon) pantoprazole 40 mg tablet,delayed 40 mg PO QAM 10/25/20 02/02/22 release (Protonix) rivaroxaban 20 mg tablet (Xarelto) 20 mg PO QAM 10/25/20 02/02/22 escitalopram oxalate 20 mg tablet 20 mg PO QAM 03/18/21 02/02/22 (Lexapro) ropinirole 0.5 mg tablet 0.5 mg PO HS 03/18/21 02/02/22 cholestyramine (with sugar) 4 gram 1 ea PO DAILY 06/03/21 02/02/22 powder for susp in a packet (Questran) divalproex 500 mg tablet,extended 1,500 mg PO HS 06/03/21 02/02/22 release 24 hr (Depakote ER) ferrous sulfate 325 mg (65 mg 325 mg PO Q OTHER DAY 06/03/21 02/02/22 iron) tablet (Iron (ferrous sulfate)) quetiapine 400 mg tablet (Seroquel) 400 mg PO HS 06/03/21 02/02/22 cyanocobalamin (vitamin B-12) 1,000 mcg PO AMHS 08/05/21 02/02/22 1,000 mcg tablet (Vitamin B-12) loratadine 10 mg tablet (Allergy 10 mg PO QAM 08/05/21 02/02/22 Relief (loratadine)) metformin 500 mg tablet 500 mg PO AMHS 08/05/21 02/02/22 thiamine HCl (vitamin B1) 100 mg 100 mg PO AMHS 10/11/21 02/02/22 tablet (Vitamin B-1) clonazepam 1 mg tablet 1 mg PO TID PRN 01/21/22 02/02/22 levothyroxine 50 mcg tablet 50 mcg PO DAILY 01/21/22 02/02/22 ergocalciferol (vitamin D2) 1,250 1,250 mcg PO WK 02/02/22 02/02/22 mcg (50,000 unit) capsule ondansetron HCl 4 mg tablet 4 mg PO Q8 PRN 02/02/22 02/02/22 Results & Data (ED) Vital Signs Vital Signs - 24 hr 02/01/22 23:14 02/01/22 23:31 02/02/22 00:08 Temperature 36.7 C Temperature Source Oral Pulse Rate 89 Pulse Rate [Apical] 83 Pulse Rhythm [Apical] Regular Pulse Strength [Apical] Normal Respiratory Rate 24 24 Respiratory Effort / Characteristics Normal for Patient Normal for Patient Respiratory Depth Normal Normal Respiratory Pattern Regular Regular Blood Pressure 136/73 Blood Pressure [Left Arm] Blood Pressure Mean 94 Blood Pressure Mean [Left Arm] Blood Pressure Position Lying Blood Pressure Position [Left Arm] Pulse Oximetry 92 94 91 Oxygen Delivery Method Room Air Room Air Room Air Sepsis Recent Fever Within 48 Hours No Sepsis New/Unexplained Change in Mental Status Yes Sepsis Action Taken by Nursing No Action Required 02/02/22 01:31 Temperature Temperature Source Pulse Rate Pulse Rate [Apical] 77 Pulse Rhythm [Apical] Regular Pulse Strength [Apical] Normal Respiratory Rate 24 Respiratory Effort / Characteristics Non-Labored Respiratory Depth Normal Respiratory Pattern Regular Blood Pressure Blood Pressure [Left Arm] 130/76 Blood Pressure Mean Blood Pressure Mean [Left Arm] 94 Blood Pressure Position Blood Pressure Position [Left Arm] Lying Pulse Oximetry 97 Oxygen Delivery Method Room Air Sepsis Recent Fever Within 48 Hours Sepsis New/Unexplained Change in Mental Status Sepsis Action Taken by Nursing Laboratory Data Result diagrams: 02/02/22 03:44 02/02/22 03:44 Lab Results 02/01/22 02/01/22 02/01/22 Range/Units 23:55 23:55 23:55 WBC 7.12 (4.8-10.8) K/uL RBC 4.32 (4.2-5.4) M/uL Hgb 14.1 (12.0-16.0) g/dL Hct 38.1 (37-47) % MCV 88.2 (80-100) fL MCH 32.6 (25-34) pg MCHC 37.0 H (32-36) g/dL RDW Std Deviation 39.2 (36.4-46.3) fL RDW Coeff of [place] 12.3 (11.5-14.5) % Plt Count 230 (130-400) K/uL MPV 9.5 (7.4-10.4) fL Immature Gran % (Auto) 0.8 % Neut % (Auto) 53.2 % Lymph % (Auto) 35.8 % [place] % (Auto) 8.3 % Eos % (Auto) 1.5 % Baso % (Auto) 0.4 % Neut # (Auto) 3.78 (1.4-6.5) K/uL Lymph # (Auto) 2.55 (1.2-3.4) K/uL [place] # (Auto) 0.59 (0.11-0.59) K/uL Eos # (Auto) 0.11 (0-0.5) K/uL Baso # (Auto) 0.03 (0-0.2) K/uL Immature Gran # (Auto) 0.06 H (0.00-0.02) K/uL ABG pH (7.35-7.45) ABG pCO2 (35-46) mmHg ABG pO2 (80-95) mmHg ABG HCO3 (19-24) mmol/L ABG O2 Saturation (90-95) % ABG Base Excess (-9-1.8) mEq/L Jesu Test (Pos) Oxygen Given Sodium 121 L (136-145) mmol/L Potassium 4.1 (3.5-5.1) mmol/L Chloride 87 L (98-107) mmol/L Carbon Dioxide 25 (21-32) mmol/L Anion Gap 9 (3-11) BUN 10 (6-23) mg/dl Creatinine 0.63 (0.6-1.2) mg/dl Est Cr Clr Drug Dosing 104.8 ml/min Est GFR ( Amer) 109.9 ml/min Est GFR (Non-Af Amer) 94.8 ml/min BUN/Creatinine Ratio 15.9 (10-20) Glucose 248 H (70-99(Fasting)) mg/dl POC Glucose (70-99) mg/dl Osmolality (280-300) mOsm/kg Lactate (0.4-2.0) mmol/L Calcium 8.7 (8.5-10.1) mg/dl Magnesium 1.2 L (1.7-2.4) mg/dl Total Bilirubin 0.3 (0.2-1.0) mg/dl AST 10 L (13-39) U/L ALT 5 L (7-52) U/L Alkaline Phosphatase 63 (34-104) U/L Troponin I < 0.03 (0-0.04) ng/ml B-Natriuretic Peptide (0-100) pg/ml Total Protein 6.3 (6.0-8.3) gm/dl Albumin 3.4 (3.4-5.0) gm/dl Globulin 2.9 (2.5-4.0) gm/dl Albumin/Globulin Ratio 1.2 (0.9-2) TSH 3.220 (0.300-4.500) uIu/ml Urine Color Urine Appearance (Clear) Urine pH (4.5-7.5) Ur Specific [place] (1.000-1.030) Urine Protein (Negative) Urine Glucose (UA) (Negative) Urine Ketones (Negative) Urine Blood (Negative) Urine Nitrite (Negative) Urine Bilirubin (Negative) Urine Urobilinogen (Negative) Ur Leukocyte Esterase (Negative) Urine Osmolality (500-800) mOsm/kg Ur Random Sodium mmol/L SARS-CoV-2, RNA, NAAT (NEGATIVE) 02/01/22 02/02/22 02/02/22 Range/Units 23:55 00:08 00:30 WBC (4.8-10.8) K/uL RBC (4.2-5.4) M/uL Hgb (12.0-16.0) g/dL Hct (37-47) % MCV (80-100) fL MCH (25-34) pg MCHC (32-36) g/dL RDW Std Deviation (36.4-46.3) fL RDW Coeff of [place] (11.5-14.5) % Plt Count (130-400) K/uL MPV (7.4-10.4) fL Immature Gran % (Auto) % Neut % (Auto) % Lymph % (Auto) % [place] % (Auto) % Eos % (Auto) % Baso % (Auto) % Neut # (Auto) (1.4-6.5) K/uL Lymph # (Auto) (1.2-3.4) K/uL [place] # (Auto) (0.11-0.59) K/uL Eos # (Auto) (0-0.5) K/uL Baso # (Auto) (0-0.2) K/uL Immature Gran # (Auto) (0.00-0.02) K/uL ABG pH (7.35-7.45) ABG pCO2 (35-46) mmHg ABG pO2 (80-95) mmHg ABG HCO3 (19-24) mmol/L ABG O2 Saturation (90-95) % ABG Base Excess (-9-1.8) mEq/L Jesu Test (Pos) Oxygen Given Sodium (136-145) mmol/L Potassium (3.5-5.1) mmol/L Chloride (98-107) mmol/L Carbon Dioxide (21-32) mmol/L Anion Gap (3-11) BUN (6-23) mg/dl Creatinine (0.6-1.2) mg/dl Est Cr Clr Drug Dosing ml/min Est GFR ( Amer) ml/min Est GFR (Non-Af Amer) ml/min BUN/Creatinine Ratio (10-20) Glucose (70-99(Fasting)) mg/dl POC Glucose 264 H (70-99) mg/dl Osmolality 270 L (280-300) mOsm/kg Lactate (0.4-2.0) mmol/L Calcium (8.5-10.1) mg/dl Magnesium (1.7-2.4) mg/dl Total Bilirubin (0.2-1.0) mg/dl AST (13-39) U/L ALT (7-52) U/L Alkaline Phosphatase (34-104) U/L Troponin I (0-0.04) ng/ml B-Natriuretic Peptide (0-100) pg/ml Total Protein (6.0-8.3) gm/dl Albumin (3.4-5.0) gm/dl Globulin (2.5-4.0) gm/dl Albumin/Globulin Ratio (0.9-2) TSH (0.300-4.500) uIu/ml Urine Color Urine Appearance (Clear) Urine pH (4.5-7.5) Ur Specific [place] (1.000-1.030) Urine Protein (Negative) Urine Glucose (UA) (Negative) Urine Ketones (Negative) Urine Blood (Negative) Urine Nitrite (Negative) Urine Bilirubin (Negative) Urine Urobilinogen (Negative) Ur Leukocyte Esterase (Negative) Urine Osmolality (500-800) mOsm/kg Ur Random Sodium mmol/L SARS-CoV-2, RNA, NAAT NEGATIVE (NEGATIVE) 02/02/22 02/02/22 02/02/22 Range/Units 00:59 01:20 01:20 WBC (4.8-10.8) K/uL RBC (4.2-5.4) M/uL Hgb (12.0-16.0) g/dL Hct (37-47) % MCV (80-100) fL MCH (25-34) pg MCHC (32-36) g/dL RDW Std Deviation (36.4-46.3) fL RDW Coeff of [place] (11.5-14.5) % Plt Count (130-400) K/uL MPV (7.4-10.4) fL Immature Gran % (Auto) % Neut % (Auto) % Lymph % (Auto) % [place] % (Auto) % Eos % (Auto) % Baso % (Auto) % Neut # (Auto) (1.4-6.5) K/uL Lymph # (Auto) (1.2-3.4) K/uL [place] # (Auto) (0.11-0.59) K/uL Eos # (Auto) (0-0.5) K/uL Baso # (Auto) (0-0.2) K/uL Immature Gran # (Auto) (0.00-0.02) K/uL ABG pH (7.35-7.45) ABG pCO2 (35-46) mmHg ABG pO2 (80-95) mmHg ABG HCO3 (19-24) mmol/L ABG O2 Saturation (90-95) % ABG Base Excess (-9-1.8) mEq/L Jesu Test (Pos) Oxygen Given Sodium (136-145) mmol/L Potassium (3.5-5.1) mmol/L Chloride (98-107) mmol/L Carbon Dioxide (21-32) mmol/L Anion Gap (3-11) BUN (6-23) mg/dl Creatinine (0.6-1.2) mg/dl Est Cr Clr Drug Dosing ml/min Est GFR ( Amer) ml/min Est GFR (Non-Af Amer) ml/min BUN/Creatinine Ratio (10-20) Glucose (70-99(Fasting)) mg/dl POC Glucose (70-99) mg/dl Osmolality (280-300) mOsm/kg Lactate 2.9 H* (0.4-2.0) mmol/L Calcium (8.5-10.1) mg/dl Magnesium (1.7-2.4) mg/dl Total Bilirubin (0.2-1.0) mg/dl AST (13-39) U/L ALT (7-52) U/L Alkaline Phosphatase (34-104) U/L Troponin I (0-0.04) ng/ml B-Natriuretic Peptide (0-100) pg/ml Total Protein (6.0-8.3) gm/dl Albumin (3.4-5.0) gm/dl Globulin (2.5-4.0) gm/dl Albumin/Globulin Ratio (0.9-2) TSH (0.300-4.500) uIu/ml Urine Color Yellow Urine Appearance Clear (Clear) Urine pH 6.5 (4.5-7.5) Ur Specific [place] 1.012 (1.000-1.030) Urine Protein Negative (Negative) Urine Glucose (UA) 3+ H (Negative) Urine Ketones Negative (Negative) Urine Blood Negative (Negative) Urine Nitrite Negative (Negative) Urine Bilirubin Negative (Negative) Urine Urobilinogen Negative (Negative) Ur Leukocyte Esterase Negative (Negative) Urine Osmolality 310 L (500-800) mOsm/kg Ur Random Sodium mmol/L SARS-CoV-2, RNA, NAAT (NEGATIVE) 02/02/22 02/02/22 02/02/22 Range/Units 01:20 01:34 01:34 WBC (4.8-10.8) K/uL RBC (4.2-5.4) M/uL Hgb (12.0-16.0) g/dL Hct (37-47) % MCV (80-100) fL MCH (25-34) pg MCHC (32-36) g/dL RDW Std Deviation (36.4-46.3) fL RDW Coeff of [place] (11.5-14.5) % Plt Count (130-400) K/uL MPV (7.4-10.4) fL Immature Gran % (Auto) % Neut % (Auto) % Lymph % (Auto) % [place] % (Auto) % Eos % (Auto) % Baso % (Auto) % Neut # (Auto) (1.4-6.5) K/uL Lymph # (Auto) (1.2-3.4) K/uL [place] # (Auto) (0.11-0.59) K/uL Eos # (Auto) (0-0.5) K/uL Baso # (Auto) (0-0.2) K/uL Immature Gran # (Auto) (0.00-0.02) K/uL ABG pH 7.42 (7.35-7.45) ABG pCO2 42 (35-46) mmHg ABG pO2 72 L (80-95) mmHg ABG HCO3 27 H (19-24) mmol/L ABG O2 Saturation 95.2 H (90-95) % ABG Base Excess 2.1 H (-9-1.8) mEq/L Jesu Test Pos (Pos) Oxygen Given RA Sodium (136-145) mmol/L Potassium (3.5-5.1) mmol/L Chloride (98-107) mmol/L Carbon Dioxide (21-32) mmol/L Anion Gap (3-11) BUN (6-23) mg/dl Creatinine (0.6-1.2) mg/dl Est Cr Clr Drug Dosing ml/min Est GFR ( Amer) ml/min Est GFR (Non-Af Amer) ml/min BUN/Creatinine Ratio (10-20) Glucose (70-99(Fasting)) mg/dl POC Glucose (70-99) mg/dl Osmolality (280-300) mOsm/kg Lactate (0.4-2.0) mmol/L Calcium (8.5-10.1) mg/dl Magnesium (1.7-2.4) mg/dl Total Bilirubin (0.2-1.0) mg/dl AST (13-39) U/L ALT (7-52) U/L Alkaline Phosphatase (34-104) U/L Troponin I (0-0.04) ng/ml B-Natriuretic Peptide 58 (0-100) pg/ml Total Protein (6.0-8.3) gm/dl Albumin (3.4-5.0) gm/dl Globulin (2.5-4.0) gm/dl Albumin/Globulin Ratio (0.9-2) TSH (0.300-4.500) uIu/ml Urine Color Urine Appearance (Clear) Urine pH (4.5-7.5) Ur Specific [place] (1.000-1.030) Urine Protein (Negative) Urine Glucose (UA) (Negative) Urine Ketones (Negative) Urine Blood (Negative) Urine Nitrite (Negative) Urine Bilirubin (Negative) Urine Urobilinogen (Negative) Ur Leukocyte Esterase (Negative) Urine Osmolality (500-800) mOsm/kg Ur Random Sodium 48 mmol/L SARS-CoV-2, RNA, NAAT (NEGATIVE) Administered Medications Levothyroxine Sodium (Levothyroxine Sodium 50 Mcg Tablet) [facility]: 03/04/22 06:29 Last Admin: 02/02/22 06:29 Dose: 50 mcg Documented by: [id number] Discontinued Medications Sodium Chloride (Nss) 500 mls @ 999 mls/hr IV .Q31M ONE Stop: 02/02/22 02:01 Last Infusion: 02/02/22 02:22 Dose: 0 mls/hr Documented by: [id number] Admin: 02/02/22 01:51 Dose: 999 mls/hr Documented by: [id number] Sodium Chloride (Nss) 500 mls @ 125 mls/hr IV .Q4H MARY Stop: 03/04/22 01:44 Last Infusion: 02/02/22 03:30 Dose: 0 mls/hr Documented by: [id number] Admin: 02/02/22 02:23 Dose: 125 mls/hr Documented by: [id number] Magnesium Sulfate/Dextrose (Magnesium Sulfate / D5w) 1 gm in 100 mls @ 100 mls/hr IV NOW STA Stop: 02/02/22 02:31 Last Infusion: 02/02/22 03:00 Dose: 0 mls/hr Documented by: [id number] Admin: 02/02/22 01:52 Dose: 100 mls/hr Documented by: [id number] Magnesium Sulfate/Dextrose (Magnesium Sulfate / D5w) 1 gm in 100 mls @ 50 mls/hr IV Q2H MARY Stop: 02/02/22 07:28 Last Admin: 02/02/22 04:47 Dose: 50 mls/hr Documented by: [id number] Discharge Plan Visit Data Chief Complaint: Weakness Stated Complaint: WEAKNESS/CONFUSION ED Provider: Manda Thayer Discharge Problem: Acute hyponatremia, Hypomagnesemia, Weakness Patient Disposition: Admitted As Inpatient Discharge Instructions Interventions: ED Discharge Assessment Last Done: 02/02/22 03:28
[2022-02-02 01:02] LABS: Basophils # (auto) 0.03 K/uL (0-0.2); Basophils % (auto) 0.4 %; Eosinophils # (auto) 0.11 K/uL (0-0.5); Eosinophils % (auto) 1.5 %; Hematocrit (blood only) 38.1 % (37-47); Hemoglobin 14.1 g/dL (12.0-16.0); Immature Granulocytes # (auto) 0.06 K/uL (0.00-0.02); Immature Granulocytes % (auto) 0.8 %; Lymphocytes # (auto) 2.55 K/uL (1.2-3.4); Lymphocytes % (auto) 35.8 %; Mean Corpuscular Hemoglobin 32.6 pg (25-34); Mean Corpuscular Volume 88.2 fL (80-100); Mean Platelet Volume 9.5 fL (7.4-10.4); Monocytes # (auto) 0.59 K/uL (0.11-0.59); Monocytes % (auto) 8.3 %; Neutrophils # (auto) 3.78 K/uL (1.4-6.5); Neutrophils % (auto) 53.2 %; Platelet Count 230 K/uL (130-400); RDW Coefficient of Variation 12.3 % (11.5-14.5); RDW Standard Deviation 39.2 fL (36.4-46.3); Red Blood Count 4.32 M/uL (4.2-5.4); White Blood Count 7.12 K/uL (4.8-10.8)
[2022-02-02 01:20] LABS: Alanine Aminotransferase 5 U/L (7-52); Albumin Globulin Ratio 1.2 (0.9-2); Albumin Level 3.4 gm/dl (3.4-5.0); Alkaline Phosphatase 63 U/L (34-104); Anion Gap 9 (3-11); Aspartate Aminotransferase 10 U/L (13-39); BUN Creatinine Ratio 15.9 (10-20); Bilirubin,Total 0.3 mg/dl (0.2-1.0); Blood Urea Nitrogen 10 mg/dl (6-23); Calcium 8.7 mg/dl (8.5-10.1); Carbon Dioxide 25 mmol/L (21-32); Chloride 87 mmol/L (98-107); Creatinine Clr Calc Pharmacy 104.8 ml/min; Est GFR (African American) 109.9 ml/min; Est GFR (Non-African American) 94.8 ml/min; Globulin 2.9 gm/dl (2.5-4.0); Glucose 248 mg/dl (70-99(Fasting)); Magnesium 1.2 mg/dl (1.7-2.4); Potassium 4.1 mmol/L (3.5-5.1); Sodium 121 mmol/L (136-145); Total Protein 6.3 gm/dl (6.0-8.3)
[2022-02-02 01:22] LABS: Troponin I < 0.03 ng/ml (0-0.04)
[2022-02-02] MEDS ORDERED: SODIUM CHLORIDE 0.9% 500 ML IV ONE (01:31)
[2022-02-02] MEDS ORDERED: MAGNESIUM SULFATE / D5W 1 GM/100 ML BAG IV STA (01:32)
[2022-02-02 01:36] LABS: Appearance Urine Clear (Clear); Bilirubin Urine Negative (Negative); Blood Urine Negative (Negative); Color Urine Yellow; Glucose Urine UA 3+ (Negative); Ketones Urine Negative (Negative); Leukocyte Esterase Urine Negative (Negative); Nitrite Urine Negative (Negative); Protein Urine Negative (Negative); Specific Gravity Urine 1.012 (1.000-1.030); Urobilinogen Urine Negative (Negative); pH Urine 6.5 (4.5-7.5)
[2022-02-02] MEDS ORDERED: SODIUM CHLORIDE 0.9% 500 ML IV SCH (01:45)
[2022-02-02 01:46] LABS: Allen Test Pos (Pos); Base Excess ABG 2.1 mEq/L (-9-1.8); HCO3 ABG 27 mmol/L (19-24); Oxygen Saturation ABG 95.2 % (90-95); PCO2 ABG 42 mmHg (35-46); PO2 ABG 72 mmHg (80-95); pH ABG 7.42 (7.35-7.45)
--- NOTE | 2022-02-02 02:17 | History & Physical Report ---
Date of Service February 02, 2022 Assessment & Plan (1) Weakness: (2) Hypomagnesemia: (3) Hyponatremia: (4) Acute hyperglycemia: (5) Anxiety and depression: (6) Schizoaffective disorder: (7) GERD (gastroesophageal reflux disease): (8) Diabetes: (9) History of pulmonary embolism: Plan: Tierra Osorio is a 66-year-old female with PMH of DM2, iron deficiency anemia, hyperparathyroidism, IBS, anxiety/depression, schizoaffective disorder, GERD, tobacco use who presented due to severe weakness for 1 day. Lab work significant for hyponatremia, hyperglycemia, and hypomagnesemia. Weakness - Unclear etiology as she has multiple findings that could cause weakness including hyponatremia, hypomagnesemia, hyperglycemia - Will manage all three of these concurrently - PT/OT consulted to establish baseline Hyponatremia - Sodium on admission at 121 -- 125 when corrected for hyperglycemia - Serum osmolality at 270, consistent with hypotonic hyponatremia - Urine osmolality 310, and urine sodium 48 - Due to these results, very possible that patient has SIADH - She does take meds that put her at risk for this including SSRIs and PPI -- PPI will be held as below, SSRI will be continued as this can lead to withdrawal symptoms - However, over thyroid disease should be excluded, for which TSH has been ordered -- can also consider exclusion of glucocorticoid deficiency with AM cortisol and ACTH stim test - Consider fluid restriction if SIADH - Received 500cc NSS in ED at 125cc/h -- will hold on further fluid at this time pending further eval - BMP q4h - Consider hypertonic saline boluses if sodium worsening or not improving after NSS Hypomagnesemia - Mag 1.2 on admission - Patient on PPI, which could be a cause -- hold PPI and give famotidine daily instead - Received Mag sulfate 1g IV in ED -- ordered additional 2g on admission - Repeat Mag level in AM Hyperglycemia in the setting of DM2 - No current signs of DKA/HHS as BSG only moderately elevated and no anion gap on labs - Hold home metformin - SSI while admitted Elevated lactate - Lactate 2.9 on admission - Unclear cause for this - Patient does not seem to be septic at this point in time, as she has no current obvious signs of infection and is hemodynamically stable, and does not seem to be dehydrated -- if anything might be closer to fluid overload - Lactic acidosis could be caused by metformin, which will be held - Monitor levels, consider more IV fluids if she seems dehydrated later on GERD - As above, hold usual PPI due to possibly contributing to hypomagnesemia and hyponatremia - Will give Famotidine 40mg daily Anxiety/depression/schizoaffective disorder - Continue home BuSpar, clonazepam prn, escitalopram, quetiapine, divalproex - Per chart review, Psych Consultation in Oct 2020, patient had shared that she had a mood disorder, "where you mood is either way up or way down" in addition to schizoaffective -- likely referring to bipolar disorder, explaining divalproex use Restless leg syndrome - Continue ropinirole HS DVT ppx: Continue Xarelto due to h/o PE Diet: HH/DM2, consider fluid restriction Dispo: Admit to Telemetry CODE STATUS: Full History of Present Illness Primary Care Provider: Dylan Fuentes PA-C Tierra Osorio is a 66-year-old female with PMH of DM2, iron deficiency anemia, hyperparathyroidism, IBS, anxiety/depression, schizoaffective disorder, GERD, tobacco use who presented due to severe weakness for 1 day. Today woke up normally without any issues but as the day went on she was feeling weaker. Also felt like she was starting to get somewhat confused. She states that her symptoms were the worst when she went to the bathroom and felt like she was going to pass out/lightheaded. She was sitting on the toilet at the time and couldn't get up. She says she was also feeling very sweaty and like her limbs were too heavy to move. Patient states her daughter called EMS at that point. On arrival, EMS found patient with O2 sat of 86%. On arrival to ED, patient's saturations remained above 90% consistently on room air. She had lab work significant for Sodium of 121, glucose of 248, magnesium of 1.2, and lactate of 2.9. Her serum osmolality was 270, urine osmolality was 310, and urine sodium was 48. UA showed 3+ glucose only. Her trop was negative, BNP was normal. An EKG showed NSR with a RBBB, which is not a new finding for her. A CXR showed no obvious acute pulmonary disease, and no sings of overt fluid overload -- official read pending. At the time of my evaluation patient is somewhat somnolent but opens eyes spontaneously and converses appropriately. She mentions she still feels weak and tired but does feel somewhat better. She is able to move all 4 extremities but does require some effort. Patient admits that earlier today she had a significant amount of sweet tea and did not check her blood sugar all day. At this tiem denies CP, palpitations, n/v, SOB, abd pain, f/c, urinary symptoms. Allergies Allergy/AdvReac Type Severity Reaction Status Date / Time egg AdvReac Severe Vomiting Verified 02/02/22 01:44 Penicillins AdvReac Severe Vomiting Verified 02/02/22 01:44 HAY & GRASS Allergy ITCHY EARS Uncoded 02/02/22 01:44 & THROAT, WAYERY EYES TREES Allergy ITCHY EARS Uncoded 02/02/22 01:44 & THROAT, WATERY EYES Home Medications Medication Instructions Recorded Confirmed Type buspirone 15 mg tablet 15 mg PO TID 10/25/20 02/02/22 History gabapentin 100 mg capsule See Rx Instructions .ROUTE .COMPLEX 10/25/20 02/02/22 History (Neurontin) feyboc-[id number] 1 cap PO TID 10/25/20 02/02/22 History 12,000-38,000-60,000 unit capsule,delayed rel (Creon) pantoprazole 40 mg tablet,delayed 40 mg PO QAM 10/25/20 02/02/22 History release (Protonix) rivaroxaban 20 mg tablet (Xarelto) 20 mg PO QAM 10/25/20 02/02/22 History escitalopram oxalate 20 mg tablet 20 mg PO QAM 03/18/21 02/02/22 History (Lexapro) ropinirole 0.5 mg tablet 0.5 mg PO HS 03/18/21 02/02/22 History cholestyramine (with sugar) 4 gram 1 ea PO DAILY 06/03/21 02/02/22 History powder for susp in a packet (Questran) divalproex 500 mg tablet,extended 1,500 mg PO HS 06/03/21 02/02/22 History release 24 hr (Depakote ER) ferrous sulfate 325 mg (65 mg 325 mg PO Q OTHER DAY 06/03/21 02/02/22 History iron) tablet (Iron (ferrous sulfate)) quetiapine 400 mg tablet (Seroquel) 400 mg PO HS 06/03/21 02/02/22 History cyanocobalamin (vitamin B-12) 1,000 mcg PO AMHS 08/05/21 02/02/22 History 1,000 mcg tablet (Vitamin B-12) loratadine 10 mg tablet (Allergy 10 mg PO QAM 08/05/21 02/02/22 History Relief (loratadine)) metformin 500 mg tablet 500 mg PO AMHS 08/05/21 02/02/22 History thiamine HCl (vitamin B1) 100 mg 100 mg PO AMHS 10/11/21 02/02/22 History tablet (Vitamin B-1) clonazepam 1 mg tablet 1 mg PO TID PRN 01/21/22 02/02/22 History levothyroxine 50 mcg tablet 50 mcg PO DAILY 01/21/22 02/02/22 History ergocalciferol (vitamin D2) 1,250 1,250 mcg PO WK 02/02/22 02/02/22 History mcg (50,000 unit) capsule ondansetron HCl 4 mg tablet 4 mg PO Q8 PRN 02/02/22 02/02/22 History Past Med/Surg History Medical History Anemia Anxiety and depression Arthritis Aspiration pneumonia Bacteriuria Diabetes GERD (gastroesophageal reflux disease) History of pulmonary embolism Hyperparathyroidism Hypoxia Iron deficiency anemia Irritable bowel syndrome Schizoaffective disorder Smoking Urine culture positive Vomiting and diarrhea Surgical History History of section x2 Social History Smoking Status: Heavy tobacco smoker Tobacco Type: Cigarettes Cigarettes Per Day: 1.5; Second Hand Exposure: No; Do You Dip or Chew Tobacco: No; Tobacco Cessation Education Requested by Patient: No Hx Alcohol Use: No Hx Substance Use: No Preferred Language: Korean Communication Ability: Effective [employer] Required: No Beliefs That Will Affect Care: None marital status: Current Living Situation: Family Current Living Situation Comment: Lives with Daughter How many Children do You have: 2 Other Information That Helps Us Care for You: No Feels Safe at Home: Yes Assistive Devices: Walker and Wheelchair Review of Systems Review of Systems: All systems reviewed & are unremarkable except as noted in HPI & below Physical Exam Physical Exam: GENERAL: Somnolent. A&Ox3. NAD. HEENT: PERRL, EOMI. Moist mucous membranes. NECK: No JVD. No lymphadenopathy. CHEST/LUNGS: CTAB A/P. No crackles, wheezes, rales, rhonchi. HEART: RRR. No m/g/r. No carotid bruits. ABDOMEN: NT/ND, soft. BS+ x4 EXTREMITIES: No cyanosis, no clubbing, no edema SKIN: Warm and dry. No rashes or lesions. PSYCHIATRIC: Euthymic affect, no SI, no pressured speech, no hallucinations NEUROLOGIC: Able to move all 4 extremities. 2/5 strength in all 4 extremities. Results & Data Results & Data ([facility]) Vital Signs (Past 12 Hours) Vital Signs Temp Pulse Pulse Resp BP BP Pulse Ox 02/02/22 01:31 77 24 130/76 97 02/02/22 00:08 91 02/01/22 23:31 83 24 94 02/01/22 23:14 36.7 C 89 24 136/73 92 Resident Activity Tracking Resident Involvement: Resident Care Provided Care Provided: Adult Hospital Medicine (1) Diabetes Diabetes mellitus complication status: without complication Diabetes mellitus halfway insulin use: with halfway use Diabetes mellitus type: type 2 Qualified Code(s): E11.9 - Type 2 diabetes mellitus without complications; Z79.4 - longterm (current) use of insulin (2) Schizoaffective disorder Schizoaffective disorder type: depressive Qualified Code(s): F25.1 - Schizoaffective disorder, depressive type (3) GERD (gastroesophageal reflux disease) Esophagitis presence: without esophagitis Qualified Code(s): K21.9 - Gastro- esophageal reflux disease without esophagitis
[2022-02-02] MEDS ORDERED: clonazePAM 1 MG TAB PO PRN (03:29)
[2022-02-02] MEDS ORDERED: ACETAMINOPHEN 325 MG TAB PO PRN (03:29)
[2022-02-02] MEDS ORDERED: GLUCOSE 40% GEL 15 GM TUBE PO PRN (03:29)
[2022-02-02] MEDS ORDERED: CARBOHYDRATES FOR HYPOGLYCEMIA PO PRN (03:29)
[2022-02-02] MEDS ORDERED: POLYETHYLENE (MIRALAX) 17 GM PACK PO PRN (03:29)
[2022-02-02] MEDS ORDERED: ONDANSETRON 4 MG OD TAB PO PRN (03:29)
[2022-02-02] MEDS ORDERED: ONDANSETRON INJ 2 MG/ML 2 ML VIAL IV PRN (03:29)
[2022-02-02] MEDS ORDERED: GLUCOSE 10 TABS/TUBE PO PRN (03:29)
[2022-02-02] MEDS ORDERED: DEXTROSE 50% 50 ML SYRINGE IV PRN (03:29)
[2022-02-02] MEDS ORDERED: GLUCAGON FOR INJ 1 MG VIAL SQ PRN (03:29)
[2022-02-02 03:59] LABS: Basophils # (auto) 0.02 K/uL (0-0.2); Basophils % (auto) 0.3 %; Eosinophils # (auto) 0.13 K/uL (0-0.5); Eosinophils % (auto) 1.7 %; Hemoglobin 14.2 g/dL (12.0-16.0); Immature Granulocytes % (auto) 1.3 %; Lymphocytes # (auto) 3.14 K/uL (1.2-3.4); Lymphocytes % (auto) 39.9 %; Mean Corpuscular Hemoglobin 32.1 pg (25-34); Mean Corpuscular Hgb Conc 36.4 g/dL (32-36); Mean Platelet Volume 9.2 fL (7.4-10.4); Monocytes # (auto) 0.51 K/uL (0.11-0.59); Monocytes % (auto) 6.5 %; Neutrophils # (auto) 3.97 K/uL (1.4-6.5); Neutrophils % (auto) 50.3 %; Platelet Count 212 K/uL (130-400); RDW Coefficient of Variation 12.3 % (11.5-14.5); RDW Standard Deviation 39.2 fL (36.4-46.3); Red Blood Count 4.43 M/uL (4.2-5.4); White Blood Count 7.87 K/uL (4.8-10.8)
[2022-02-02 04:17] LABS: BUN Creatinine Ratio 14.8 (10-20); Calcium 8.5 mg/dl (8.5-10.1); Creatinine Clr Calc Pharmacy 122.3 ml/min; Est GFR (African American) 115.6 ml/min; Est GFR (Non-African American) 99.7 ml/min; Magnesium 1.6 mg/dl (1.7-2.4); Potassium 4.4 mmol/L (3.5-5.1)
[2022-02-02] MEDS: MAGNESIUM SULFATE / D5W 1 GM/100 ML BAG IV SCH ×2 (04:47→15:29)
[2022-02-02] MEDS: LEVOTHYROXINE SODIUM 50 MCG TABLET PO SCH (06:29)
[2022-02-02 07:27] LABS: Estimated Average Glucose 192 mg/dl; Hemoglobin A1C 8.3 % (4.5-5.6)
--- NOTE | 2022-02-02 07:48 | XRay Report ---
XR chest 1V portable HISTORY: weakness COMPARISON: Chest 10/11/2021. FINDINGS: No pneumothorax. The heart is mildly enlarged. There is progressive perihilar interstitial/ vascular thickening consistent with mild congestive change. Suspect a trace right pleural effusion. IMPRESSION: Cardiomegaly with mild congestive change and a trace right pleural effusion. ACT 112: Negative or not required by law. Electronically signed by: Wilfredo Byers M.D. 02/02/2022 7:47 AM
--- NOTE | 2022-02-02 07:54 | Hospitalist Progress Note ---
Date of Service February 02, 2022 Assessment & Plan (1) Weakness: (2) Hypomagnesemia: (3) Hyponatremia: (4) Acute hyperglycemia: (5) Anxiety and depression: (6) Schizoaffective disorder: (7) GERD (gastroesophageal reflux disease): (8) Diabetes: (9) History of pulmonary embolism: Plan: Tierra Osorio is a 66-year-old female with PMH of DM2, iron deficiency anemia, hyperparathyroidism, IBS, anxiety/depression, schizoaffective disorder, GERD, tobacco use who presented due to severe weakness for 1 day. Lab work significant for hyponatremia, hyperglycemia, and hypomagnesemia. Weakness, improved -Likely multifactorial secondary to hyponatremia, hypomagnesemia, hyperglycemia - Will manage all three of these concurrently - PT/OT consulted to establish baseline Hyponatremia - Sodium on admission at 121 -- 125 when corrected for hyperglycemia, now 129, 133 when corrected for glucose - Serum osmolality at 270, consistent with hypotonic hyponatremia - Urine osmolality 310, and urine sodium 48 - Due to these results, very possible that patient has SIADH, but based off of history also has a component of primary polydipsia. - She does take meds that put her at risk for this including SSRIs and PPI -- PPI will be held as below, SSRI will be continued as this can lead to withdrawal symptoms - However, over thyroid disease should be excluded, for which TSH has been ordered -- can also consider exclusion of glucocorticoid deficiency with AM cortisol and ACTH stim test - Consider fluid restriction if SIADH - Received 500cc NSS in ED at 125cc/h -- will hold on further fluid at this time pending further eval - BMP q4h - Consider hypertonic saline boluses if sodium worsening or not improving after NSS Hypomagnesemia - Mag 1.2 on admission, after 2 g of IV mag sulfate, now at 2.0 - Patient on PPI, which could be a cause --continue to hold PPI and give famotidine daily instead - Repeat Mag level in AM Hyperglycemia in the setting of DM2 - No current signs of DKA/HHS as BSG only moderately elevated and no anion gap on labs - Hold home metformin - SSI while admitted Elevated lactate - Lactate 2.8, no improvement with intravenous fluid, ordered blood cultures, urine culture, pro-Montrell at this time - Unclear cause for this - Patient does not seem to be septic at this point in time, as she has no current obvious signs of infection and is hemodynamically stable, and does not seem to be dehydrated -- if anything might be closer to fluid overload - Lactic acidosis could be caused by metformin, which will be held, but very unlikely due to good renal function GERD - As above, hold usual PPI due to possibly contributing to hypomagnesemia and hyponatremia - Will give Famotidine 40mg daily Anxiety/depression/schizoaffective disorder - Continue home BuSpar, clonazepam prn, escitalopram, quetiapine, divalproex - Per chart review, Psych Consultation in Oct 2020, patient had shared that she had a mood disorder, "where you mood is either way up or way down" in addition to schizoaffective -- likely referring to bipolar disorder, explaining divalproex use Restless leg syndrome - Continue ropinirole HS DVT ppx: Continue Xarelto due to h/o PE Diet: HH/DM2, consider fluid restriction Dispo: PCU CODE STATUS: Full Admission and Anticipated Discharge Date Admission Date: February 02, 2022 Supervising Physician Co-Signing Physician Notes Attending attestation Pt seen and examined in concert with Dr. Rain. In agreement with the documented findings as noted in the resident documentation with any exceptions or additions as noted here. Patient reports interval improvement in subjective weakness and able to get out of bed, to restroom, without significant issue. PT evaluation pending at this time. On examination, S1/S2 nl RRR no MCG. CTAB. Abd NT/ND BS+ve Weakness - multifactorial cause, see below for management, PT evaluation pending. Hyponatremia - gradually improving following hydration and POI. Holding PPI - transition to H2 therapy if tolerated. Hypomagnesemia - repleted today, tolerating, repeat at 1300 Hyperglycemia in the setting of DMII - holding metformin - SSI w/ glycemic consult Elevated lactate - repeat, no evident symptom Else see resident documentation as noted. Subjective Patient seen at bedside this morning. No overnight events reported. Patient states that she feels much better than when she was admitted to the hospital and has recovered a majority of her strength. After further discussion with the patient it seems that the patient consumes a large amount of fluid, she remarked the following: She has a glass of water with her medications in the morning and has more than 10 glasses of sweet tea throughout the day which is typical for her. Yesterday she states that she progressively got weaker throughout the day to the point that when she went to use the bathroom and sit on the toilet she was unable to get up which was her sign for her to go to the emergency department. She states that she thought if she continued to drink it would help with her weakness. Appropriately had a lot of voiding yesterday. In addition patient also seems to be having chronic loose stools per her chart that date back for several months. Recently in the ED on January 21 where she had a fecal impaction that was sequentially disimpacted. Reports no recent changes in medication. Otherwise patient seems to be doing well today. Her only complaint is that she has topical abdominal pain underneath her pannus and request that she get some medication to help with the infection that is there. Otherwise has no complaints at this time and is grateful for her care. Review of Systems Review of Systems: All systems reviewed & are unremarkable except as noted in HPI & below Physical Exam Constitutional: WD/WN, vitals as above Eyes: PERRL, conjunctivae normal, anicteric sclerae Neck: trachea midline, no thyromegaly Respiratory: normal respiratory effort, lungs clear to auscultation Cardiovascular: RRR, no murmur, no edema Gastrointestinal (Abdomen): normal bowel sounds, soft, nontender, no hepatosplenomegaly Musculoskeletal: Head/Neck/Chest: normocephalic and head atraumatic Skin: + erythema (Under the abdominal pannus bilaterally with damp skin.) Neurologic: moves all extremities Psychiatric: A+Ox3, euthymic affect Lymphatic: no cervical lymphadenopathy Results & Data Results & Data ([facility]) Vital Signs (Past 12 Hours) Vital Signs Temp Pulse Pulse Resp BP BP Pulse Ox 02/02/22 07:47 36.5 C 77 20 120/81 96 02/02/22 03:50 36.3 C L 75 20 126/81 95 02/02/22 03:30 36.3 C L 75 20 126/81 95 02/02/22 03:29 02/02/22 01:31 77 24 130/76 97 02/02/22 00:08 91 02/01/22 23:31 83 24 94 02/01/22 23:14 36.7 C 89 24 136/73 92 Pulse Ox 02/02/22 07:47 02/02/22 03:50 02/02/22 03:30 02/02/22 03:29 95 02/02/22 01:31 02/02/22 00:08 02/01/22 23:31 02/01/22 23:14 (1) Diabetes Diabetes mellitus complication status: without complication Diabetes mellitus care home insulin use: with keno terminal operator use Diabetes mellitus type: type 2 Qualified Code(s): E11.9 - Type 2 diabetes mellitus without complications; Z79.4 - intermediate accountant (current) use of insulin (2) Schizoaffective disorder Schizoaffective disorder type: depressive Qualified Code(s): F25.1 - Schizoaffective disorder, depressive type (3) GERD (gastroesophageal reflux disease) Esophagitis presence: without esophagitis Qualified Code(s): K21.9 - Gastro- esophageal reflux disease without esophagitis
[2022-02-02] MEDS ORDERED: MAGNESIUM SULFATE / D5W 1 GM/100 ML BAG IV ONE (08:00)
[2022-02-02] MEDS: INSULIN ASPART PER UNIT SC SCH ×4 (08:15→22:04)
--- NOTE | 2022-02-02 08:37 | Electrocardiogram Report ---
Test Reason : Blood Pressure : / mmHG Vent. Rate : 089 BPM Atrial Rate : 089 BPM P-R Int : 170 ms QRS Dur : 138 ms QT Int : 426 ms P-R-T Axes : 049 117 017 degrees QTc Int : 518 ms Normal sinus rhythm Right bundle branch block Abnormal ECG When compared with ECG of 11-OCT-2021 21:54, T wave inversion more evident in Anterior leads Confirmed by David Rodriguez ([id number]) on 02/02/2022 8:37:08 AM Referred By: REFERRED SELF Confirmed By:Alex Rodriguez
[2022-02-02 08:45] LABS: BUN Creatinine Ratio 13.5 (10-20); Calcium 8.9 mg/dl (8.5-10.1); Creatinine Clr Calc Pharmacy 126.2 ml/min; Potassium 4.4 mmol/L (3.5-5.1)
[2022-02-02] MEDS: LORATADINE 10 MG TAB PO SCH (08:58)
[2022-02-02] MEDS: GABAPENTIN 100 MG CAP PO SCH ×2 (08:58→12:22)
[2022-02-02] MEDS: FAMOTIDINE 40 MG TABLET PO SCH (08:58)
[2022-02-02] MEDS: CYANOCOBALAMIN (B-12) 500 MCG TABLET PO SCH ×2 (08:58→22:01)
[2022-02-02] MEDS: THIAMINE HCL 100 MG TAB PO SCH ×2 (08:58→22:00)
[2022-02-02] MEDS: ESCITALOPRAM OXALATE 20 MG TAB PO SCH (08:59)
[2022-02-02] MEDS: PANCREAZE (LIPASE 10,500U) CAP PO SCH ×3 (08:59→17:18)
[2022-02-02] MEDS: busPIRone 15 MG TAB PO SCH ×3 (08:59→21:59)
[2022-02-02] MEDS: CHOLESTYRAMINE LIGHT 4 GM PKT PO SCH (09:00)
[2022-02-02] MEDS ORDERED: FERROUS SULFATE 325 MG TAB PO SCH (09:00)
[2022-02-02] MEDS: INSULIN GLARGINE SOLOSTAR 100 UNITS/ML 3 ML PEN SC SCH ×2 (09:01→22:01)
[2022-02-02] MEDS: MICONAZOLE NITRATE POWDER 43 GM EXT SCH ×2 (12:15→22:09)
[2022-02-02 13:11] LABS: Calcium 8.9 mg/dl (8.5-10.1); Creatinine Clr Calc Pharmacy 97.9 ml/min; Est GFR (African American) 107.7 ml/min; Est GFR (Non-African American) 92.9 ml/min; Potassium 4.3 mmol/L (3.5-5.1)
[2022-02-02 15:17] LABS: Calcium 8.7 mg/dl (8.5-10.1); Creatinine Clr Calc Pharmacy 87.5 ml/min; Est GFR (African American) 97.6 ml/min; Est GFR (Non-African American) 84.2 ml/min; Potassium 4.3 mmol/L (3.5-5.1)
[2022-02-02] MEDS ORDERED: RIVAROXABAN 20 MG TAB PO SCH (16:30)
--- NOTE | 2022-02-02 20:08 | XRay Report ---
XR KUB/Abdomen 1 view CLINICAL HISTORY: Elevated lactate w/o known cause TECHNIQUE: 1 view of the abdomen was obtained. Comparison: Comparison is made to abdomen radiograph 01/21/2022 FINDINGS: Lung bases are unremarkable. The osseous structures are grossly unremarkable. The bowel gas pattern i s nonobstructive. A moderate amount of stool is noted within the large bowel. IMPRESSION: Nonobstructive bowel gas pattern. ACT 112: Negative or not required by law. Electronically signed by: Devon España M.D. 02/02/2022 8:07 PM
[2022-02-02] MEDS ORDERED: DIVALPROEX EXTENDED RELEASE 500 MG TAB PO SCH (21:00)
[2022-02-02] MEDS ORDERED: QUEtiapine FUMARATE 200 MG TAB PO SCH (21:00)
[2022-02-02] MEDS ORDERED: GABAPENTIN 100 MG CAP PO SCH (21:00)
[2022-02-02] MEDS ORDERED: rOPINIRole HCL 0.25 MG TABLET PO SCH (21:00)
[2022-02-03] MEDS: LEVOTHYROXINE SODIUM 50 MCG TABLET PO SCH (06:03)
[2022-02-03 07:56] LABS: Basophils # (auto) 0.03 K/uL (0-0.2); Basophils % (auto) 0.4 %; Eosinophils % (auto) 1.3 %; Hematocrit (blood only) 40.1 % (37-47); Hemoglobin 14.3 g/dL (12.0-16.0); Immature Granulocytes # (auto) 0.07 K/uL (0.00-0.02); Immature Granulocytes % (auto) 0.9 %; Lymphocytes % (auto) 47.2 %; Mean Corpuscular Hemoglobin 32.4 pg (25-34); Mean Corpuscular Hgb Conc 35.7 g/dL (32-36); Mean Corpuscular Volume 90.7 fL (80-100); Mean Platelet Volume 9.6 fL (7.4-10.4); Monocytes % (auto) 6.7 %; Neutrophils # (auto) 3.22 K/uL (1.4-6.5); Neutrophils % (auto) 43.5 %; Platelet Count 213 K/uL (130-400); RDW Coefficient of Variation 12.8 % (11.5-14.5); RDW Standard Deviation 42.3 fL (36.4-46.3); Red Blood Count 4.42 M/uL (4.2-5.4); White Blood Count 7.42 K/uL (4.8-10.8)
[2022-02-03 08:13] LABS: BUN Creatinine Ratio 14.9 (10-20); Calcium 9.1 mg/dl (8.5-10.1); Creatinine Clr Calc Pharmacy 96.3 ml/min; Est GFR (African American) 107.7 ml/min; Est GFR (Non-African American) 92.9 ml/min; Potassium 4.5 mmol/L (3.5-5.1)
[2022-02-03] MEDS: PANCREAZE (LIPASE 10,500U) CAP PO SCH ×2 (08:58→11:47)
[2022-02-03] MEDS: FAMOTIDINE 40 MG TABLET PO SCH (08:58)
[2022-02-03] MEDS: busPIRone 15 MG TAB PO SCH ×2 (08:58→13:16)
[2022-02-03] MEDS: LORATADINE 10 MG TAB PO SCH (08:58)
[2022-02-03] MEDS: THIAMINE HCL 100 MG TAB PO SCH (08:58)
[2022-02-03] MEDS: MICONAZOLE NITRATE POWDER 43 GM EXT SCH (08:58)
[2022-02-03] MEDS: ESCITALOPRAM OXALATE 20 MG TAB PO SCH (08:59)
[2022-02-03] MEDS: CYANOCOBALAMIN (B-12) 500 MCG TABLET PO SCH (08:59)
[2022-02-03] MEDS: GABAPENTIN 100 MG CAP PO SCH ×2 (09:00→11:47)
[2022-02-03] MEDS: INSULIN GLARGINE SOLOSTAR 100 UNITS/ML 3 ML PEN SC SCH (09:01)
[2022-02-03] MEDS: INSULIN ASPART PER UNIT SC SCH ×2 (09:02→11:46)
[2022-02-03] MEDS: CHOLESTYRAMINE LIGHT 4 GM PKT PO SCH (09:05)
--- NOTE | 2022-02-03 10:07 | Discharge Summary ---
Date of Service February 03, 2022 Admission HPI Per Admitting Provider Tierra Osorio is a 66-year-old female with PMH of DM2, iron deficiency anemia, hyperparathyroidism, IBS, anxiety/depression, schizoaffective disorder, GERD, tobacco use who presented due to severe weakness for 1 day. Today woke up normally without any issues but as the day went on she was feeling weaker. Also felt like she was starting to get somewhat confused. She states that her symptoms were the worst when she went to the bathroom and felt like she was going to pass out/lightheaded. She was sitting on the toilet at the time and couldn't get up. She says she was also feeling very sweaty and like her limbs were too heavy to move. Patient states her daughter called EMS at that point. On arrival, EMS found patient with O2 sat of 86%. On arrival to ED, patient's saturations remained above 90% consistently on room air. She had lab work significant for Sodium of 121, glucose of 248, magnesium of 1.2, and lactate of 2.9. Her serum osmolality was 270, urine osmolality was 310, and urine sodium was 48. UA showed 3+ glucose only. Her trop was negative, BNP was normal. An EKG showed NSR with a RBBB, which is not a new finding for her. A CXR showed no obvious acute pulmonary disease, and no sings of overt fluid overload -- official read pending. At the time of my evaluation patient is somewhat somnolent but opens eyes spontaneously and converses appropriately. She mentions she still feels weak and tired but does feel somewhat better. She is able to move all 4 extremities but does require some effort. Patient admits that earlier today she had a significant amount of sweet tea and did not check her blood sugar all day. At this tiem denies CP, palpitations, n/v, SOB, abd pain, f/c, urinary symptoms. Principal Diagnosis Hyponatremia/hypomagnesemia Discharge Exam Constitutional WD/WN, vitals as above Eyes PERRL, conjunctivae normal, anicteric sclerae Neck trachea midline, no thyromegaly Respiratory normal respiratory effort, lungs clear to auscultation Cardiovascular RRR, no murmur, no edema Gastrointestinal (Abdomen) normal bowel sounds, soft, nontender, no hepatosplenomegaly Musculoskeletal Head/Neck/Chest: normocephalic and head atraumatic Skin + erythema (Under the abdominal pannus bilaterally with damp skin.) Neurologic moves all extremities Psychiatric A+Ox3, euthymic affect Lymphatic no cervical lymphadenopathy Discharge Data Allergies Allergy/AdvReac Type Severity Reaction Status Date / Time egg AdvReac Severe Vomiting Verified 02/02/22 01:44 Penicillins AdvReac Severe Vomiting Verified 02/02/22 01:44 HAY & GRASS Allergy ITCHY EARS Uncoded 02/02/22 01:44 & THROAT, WAYERY EYES TREES Allergy ITCHY EARS Uncoded 02/02/22 01:44 & THROAT, WATERY EYES Consultations 02/02/22 01:33 ED Decision to Admit Stat Hospital Course (1) Weakness: (2) Hypomagnesemia: (3) Hyponatremia: (4) Acute hyperglycemia: (5) Anxiety and depression: (6) Schizoaffective disorder: (7) GERD (gastroesophageal reflux disease): (8) Diabetes: (9) History of pulmonary embolism: Tierra Osorio is a 66-year-old female with PMH of DM2, iron deficiency anemia, hyperparathyroidism, IBS, anxiety/depression, schizoaffective disorder, GERD, tobacco use who presented due to severe weakness for 1 day. Lab work significant for hyponatremia, hyperglycemia, and hypomagnesemia. Weakness, resolved -Likely multifactorial secondary to hyponatremia, hypomagnesemia, hyperglycemia - PT consulted to establish baseline: PT felt that patient was safe to return home and ambulate with a wheelchair and walker with daughter's assistance who lives with the patient. -Strength overall improved as electrolyte abnormalities were corrected as below. Hyponatremia, improved - Sodium on admission at 121 -- 125 when corrected for hyperglycemia, now 133, 134 when corrected for glucose - Serum osmolality at 270, consistent with hypotonic hyponatremia - Urine osmolality 310, and urine sodium 48 - Due to these results, very possible that patient has SIADH, but based off of history also had a component of primary polydipsia. - She does take meds that put her at risk for this including SSRIs and PPI -- PPI will be held as below, SSRI will be continued as this can lead to withdrawal symptoms -Patient was treated with a fluid restriction and hyponatremia corrected on its own over the course of 48 hours. Hypomagnesemia, resolved - Mag 1.2 on admission, after 2 g of IV mag sulfate, now at 2.0 - Patient on PPI, which could be a cause --continue to hold PPI and give famotid ine daily instead Hyperglycemia in the setting of DM2 - No current signs of DKA/HHS as BSG only moderately elevated and no anion gap on labs - Hold home metformin - SSI while admitted -creel hand was also consulted and discussed with the patient about lifestyle modification to prevent over consumption of sugars. Elevated lactate, resolved - Lactate 2.8, no improvement with intravenous fluid, ordered blood cultures, urine culture, pro-Montrell at this time - Unclear cause for this, but resolved on its own. Unlikely to be due to an infectious etiology or Metformin. -Blood cultures and urine culture pending. Pro-Montrell was negative. GERD - Patient came in on a PPI which was held as it could have been contributing to hyponatremia and hypomagnesium. Patient was put back on PPI at time of discharge Anxiety/depression/schizoaffective disorder - Continue home BuSpar, clonazepam prn, escitalopram, quetiapine, divalproex - Per chart review, Psych Consultation in Oct 2020, patient had shared that she had a mood disorder, "where you mood is either way up or way down" in addition to schizoaffective -- likely referring to bipolar disorder, explaining divalproex use Restless leg syndrome - Continue ropinirole HS DVT ppx: Continue Xarelto due to h/o PE Diet: HH/DM2, consider fluid restriction Dispo: PCU CODE STATUS: Full Total Time Total Time Spent Total Time Spent (In Minutes): 30 Discharge Plan Discharge Items Patient Disposition: Home - Self-Care Reason For Visit: WEAKNESS Discharge Diagnosis: Hyponatremia, hypomagnesemia, hyperglycemia Activity: Per Instructions section Non-emergency contact: Primary Care Provider Call non-emergency contact if: you have any medication questions and your symptoms worsen Follow-up/Referrals: Dylan Fuentes PA-C [Primary Care Provider] - Diet: Carb Consistent or DM2 Addtl Attending Provider Instructions: You came to the hospital for 24-hour history of generalized weakness that progressively got worse throughout the day. When you went to the emergency room there is a slew of lab work that was done that had revealed low sodium, low magnesium, and high glucose. In addition you also had elevated lactate that resolved on its own. Otherwise your electrolytes were repleted and corrected accordingly. As your electrolytes were corrected, your strength progressively returned. You were also seen by the desktop analyst who went over her your intake and discussed further improving your diet to reduce your risk of worsening diabetes and episodes of hyperglycemia. Also physical therapy had come to see you who deemed that you were stable to be discharged back home. We recommend at this time that you follow-up with your primary care provider within 1 week after discharge. After all this consideration we also feel that is safe for you to go home. It has been a pleasure to be a part of your care and we wish you the best in both your health and your recovery. Pending Studies at Discharge: No Stand-Alone Forms: My [facility] [employer], Smoking Cessation Medications and DC Order Prescriptions: Continued pantoprazole [Protonix] 40 mg tablet,delayed release (DR/EC) 40 mg PO QAM RF: 0 gabapentin [Neurontin] 100 mg capsule See Rx Instructions .ROUTE .COMPLEX RF: 0 buspirone 15 mg tablet 15 mg PO TID RF: 0 Creon 12,000-38,000 -60,000 unit capsule,delayed release(DR/EC) 1 cap PO TID RF: 0 Xarelto 20 mg tablet 20 mg PO QAM RF: 0 ropinirole 0.5 mg tablet 0.5 mg PO HS RF: 0 escitalopram oxalate [Lexapro] 20 mg tablet 20 mg PO QAM RF: 0 clonazepam 1 mg tablet 1 mg PO TID PRN (Reason: Anxiety) RF: 0 levothyroxine 50 mcg tablet 50 mcg PO DAILY RF: 0 cholestyramine (with sugar) [Questran] 4 gram powder in packet 1 ea PO DAILY RF: 0 ferrous sulfate [Iron (ferrous sulfate)] 325 mg (65 mg iron) tablet 325 mg PO Q OTHER DAY RF: 0 divalproex [Depakote ER] 500 mg tablet extended release 24 hr 1,500 mg PO HS RF: 0 quetiapine [Seroquel] 400 mg tablet 400 mg PO HS RF: 0 metformin 500 mg tablet 500 mg PO AMHS RF: 0 cyanocobalamin (vitamin B-12) [Vitamin B-12] 1,000 mcg tablet 1,000 mcg PO AMHS RF: 0 loratadine [Allergy Relief (loratadine)] 10 mg tablet 10 mg PO QAM RF: 0 thiamine HCl (vitamin B1) [Vitamin B-1] 100 mg tablet 100 mg PO AMHS RF: 0 ondansetron HCl 4 mg tablet 4 mg PO Q8 PRN (Reason: Nausea And Vomiting) RF: 0 ergocalciferol (vitamin D2) 1,250 mcg (50,000 unit) capsule 1,250 mcg PO WK RF: 0 Discharge Orders: Discharge Order (Routine); Ordered 02/03/22 Ordered By: Mert Maya/Other Patient Handouts: Managing Type 2 Diabetes, Hypomagnesemia Dc, Hyponatremia Dc, Diabetes: Meal Planning Admission Data Admit Date/Time: 02/02/22 02:30 Attending Provider: Marcelino Brito Admit Provider: Sonny Quintanilla Primary Care Provider: Dylan Fuentes Other Providers: Aaron Pickard Other Interventions: Discharge Summary Assessment (RN) Last Done: 02/03/22 15:05 Supervising Physician Co-Signing Physician Notes Attending attestation Pt seen and examined in concert with Dr. Rain. In agreement with the documented findings as noted in the resident documentation with any exceptions or additions as noted here. Patient reports continued improvement in subjective weakness. Able to get out of bed, to restroom, work with PT without significant issue. On examination, S1/S2 nl RRR no MCG. CTAB. Abd NT/ND BS+ve Weakness - multifactorial cause, see below for management, PT evaluation as noted Hyponatremia - resolved following hydration - PPI restarted on discharge for chronic tolerance, would encourage exploring transition to [facility] H2 therapy as outpatient Hypomagnesemia - repleted - may be 2/2 PPI use, would repeat as outpatient and consider supplementation vs. medication changes as above Hyperglycemia in the setting of DMII - continue metformin - diabetic education provideded and patient is contemplative for change and looking to decrease liquid glucose intake (high sweet tea intake) Elevated lactate - resolved with negative w/u, no evident symptoms Else see resident documentation as noted. Total attending time spent on this patient on the day of discharge: 40 minutes.
--- NOTE | 2022-02-03 14:26 | Communication Note ---
Date of Service: February 03, 2022 By CMS guidelines, a determination that the admission or continued stay is not medically necessary has been made by a member of the UR committee and a phy sician for this hospital stay, therefore a Code 44 will be completed and the Inpatient admission will be changed to outpatient.
[2022-02-08] MEDS ORDERED: ERGOCALCIFEROL 50,000 UNITS 1250 MCG CAP PO SCH (09:00)
== END 2022-02-03 16:56 | disposition home or self-care (01) ==
LOC: ED 23:19 → SUATTDRO 02-02 02:30 → 2S 02-02 02:30 → INTOOBSV 02-02 02:30 → 2S 02-02 03:28

== ENCOUNTER 2022-03-19 19:46 | Inpatient (IN) ==
--- NOTE | 2022-03-19 20:07 | Emergency Department Note ---
Impression & Plan Acute dehydration, Dyspnea, Weakness, Tobacco abuse ED Provider Note NAME: SID JAVIER AGE: 66 SEX: F : 1955 ARRIVES VIA: Ambulance INFORMANT: Patient, ED PROVIDER(S): Erwin Rodriguez MD Chief Complaint: Weakness, nausea vomiting HPI: Patient patient presents with 3 weeks of progressively worsening weakness. The patient did develop nausea vomiting today. Patient does have known history of diabetes but has been off insulin for some time. The patient states that her insulin was never approved and she does not member the last time she took it. Patient is a smoker and does not wear oxygen or CPAP or BiPAP. Patient denies any chest pains but does complain of mild shortness of breath. Patient denies any abdominal pain but has had more intense nausea. Diarrhea did begin this as well today. The patient denies any fevers or chills. Patient denies any known sick contacts or recent travel. ROS: See HPI for pertinent positives and negatives. A total of 10 systems were reviewed and otherwise negative. Past medical history: See below Surgical history: See below Social history: See below Physical Exam: GENERAL: Ill in appearance but nontoxic. EYE EXAM: Normal conjunctiva. PERRL, no anisocoria and EOM's grossly intact w/o pain. [OROPHARYNX: Dry mucous membranes, edentulous. NECK: Supple, no nuchal rigidity, no adenopathy, non-tender. No signs of meningismus. LUNGS: Clear to auscultation. Normal chest wall mechanics. HEART: Tachycardic and regular, no MRG. ABDOMEN: Abdomen soft, non-tender, normo-active bowel sounds, no masses, no rebound or guarding. BACK: No CVA TTP. SKIN: No rashes and no bruising. UPPER EXTREMITIES: Upper extremities are grossly normal. LOWER EXTREMITIES: Grossly normal, no edema. NEURO EXAM: A&O x3, cranial nerves II-XII grossly intact, normal speech, moves all 4 extremities on command w/o issue. Differential diagnoses: Infection, dehydration, metabolic abnormality, hypo/hyperglycemia, electrolyte disturbance, anemia, hypoxia, cardiac sources, intracerebral event, toxicologic, neurologic, as well as other pathologies. Course: Patient was seen and evaluated the bedside. Full history physical exam was performed. EKG interpreted by me Sinus tachycardia, rate of 117, wide QRS, right bundle branch block pattern. Right axis deviation Imaging Studies: See Below Cardiac monitoring: An order was placed for continuous cardiac monitoring. The monitor shows a rate of 112 with tachycardic and regular rhythm. MDM: Patient was seen due to concern for weakness nausea vomiting. Blood work is obtained. The patient is on 3 L nasal cannula but has a known history of COPD. Chest x-ray also obtained. The patient was ordered a small amount of steroid as the patient may have some concomitant COPD. Patient also did have blood cultures and was ordered IV fluids procalcitonin and lactate. VBG also ordered. Patient is a white count of 7 with an elevated hemoglobin of 16. The patient's kidney function is unremarkable. Initial lactate is greater than 3. The patient was ordered a second liter of IV fluids. Patient's procalcitonin is not elevated. COVID-negative. Chest x-ray appears to be clear. Patient is not in DKA. I did speak to the on-call hospitalist given the patient had a slight oxygen requirement. The patient was admitted to the medicine service by Dr. Wagner. Past Med/Surg History Medical History Acute hyperglycemia Acute hyponatremia Anemia Anxiety and depression Arthritis Aspiration pneumonia Bacteriuria Diabetes GERD (gastroesophageal reflux disease) History of pulmonary embolism Hyperparathyroidism Hypomagnesemia Hypoxia Iron deficiency anemia Irritable bowel syndrome Schizoaffective disorder Smoking Urine culture positive Vomiting and diarrhea Weakness Surgical History History of section x2 Social History Smoking Status: Current every day smoker Tobacco Type: Cigarettes Cigarettes Per Day: 1.5; Second Hand Exposure: No; Hx Alcohol Use: No Hx Substance Use: No Preferred Language: Macedonian Communication Ability: Effective 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: No Beliefs That Will Affect Care: None marital status: Current Living Situation: Family Current Living Situation Comment: Lives with Daughter How many Children do You have: 2 Feels Safe at Home: No Is there a partner from a previous relationship who is making you feel unsafe now?: No Assistive Devices: Walker and Wheelchair Allergies Allergies Allergy/AdvReac Type Severity Reaction Status Date / Time egg AdvReac Severe Vomiting Verified 03/19/22 22:45 Penicillins AdvReac Severe Vomiting Verified 03/19/22 22:45 HAY & GRASS Allergy ITCHY EARS Uncoded 03/19/22 22:45 & THROAT, WAYERY EYES TREES Allergy ITCHY EARS Uncoded 03/19/22 22:45 & THROAT, WATERY EYES Home Meds Home Medications Medication Instructions Recorded Confirmed buspirone 15 mg tablet 15 mg PO TID 10/25/20 03/19/22 gabapentin 100 mg capsule See Rx Instructions .ROUTE .COMPLEX 10/25/20 03/19/22 (Neurontin) [id number] 1 cap PO TID 10/25/20 03/19/22 12,000-38,000-60,000 unit capsule,delayed rel (Creon) pantoprazole 40 mg tablet,delayed 40 mg PO QAM 10/25/20 03/19/22 release (Protonix) rivaroxaban 20 mg tablet (Xarelto) 20 mg PO QAM 10/25/20 03/19/22 escitalopram oxalate 20 mg tablet 20 mg PO QAM 03/18/21 03/19/22 (Lexapro) ropinirole 0.5 mg tablet 0.5 mg PO HS 03/18/21 03/19/22 cholestyramine (with sugar) 4 gram 1 ea PO DAILY 06/03/21 03/19/22 powder for susp in a packet (Questran) divalproex 500 mg tablet,extended 1,500 mg PO HS 06/03/21 03/19/22 release 24 hr (Depakote ER) ferrous sulfate 325 mg (65 mg 325 mg PO Q OTHER DAY 06/03/21 03/19/22 iron) tablet (Iron (ferrous sulfate)) quetiapine 400 mg tablet (Seroquel) 400 mg PO HS 06/03/21 03/19/22 cyanocobalamin (vitamin B-12) 1,000 mcg PO BID 08/05/21 03/19/22 1,000 mcg tablet (Vitamin B-12) loratadine 10 mg tablet (Allergy 10 mg PO QAM 08/05/21 03/19/22 Relief (loratadine)) metformin 500 mg tablet 500 mg PO BID 08/05/21 03/19/22 thiamine HCl (vitamin B1) 100 mg 100 mg PO BID 10/11/21 03/19/22 tablet (Vitamin B-1) levothyroxine 50 mcg tablet 50 mcg PO QAM 01/21/22 03/19/22 ergocalciferol (vitamin D2) 1,250 1,250 mcg PO WK 02/02/22 03/19/22 mcg (50,000 unit) capsule ondansetron HCl 4 mg tablet 4 mg PO Q8 PRN 02/02/22 03/19/22 clonazepam 1 mg tablet 1 mg PO TID 02/25/22 03/19/22 famotidine 20 mg tablet 20 mg PO DAILY 02/25/22 03/19/22 Results & Data (ED) Vital Signs Vital Signs - 24 hr 03/19/22 19:51 03/19/22 19:53 03/19/22 20:00 Temperature 37.0 C Temperature Source Oral Pulse Rate 115 H 115 H 113 H Pulse Rate [Left Radial] Pulse Rate from SpO2 Sensor 115 H 113 H Pulse Rhythm [Left Radial] Pulse Strength [Left Radial] Respiratory Rate 25 H 26 H 28 H Respiratory Effort / Characteristics Non-Labored Respiratory Depth Normal Respiratory Pattern Regular Blood Pressure 127/81 Blood Pressure Mean 96 Blood Pressure Position Lying Pulse Oximetry 90 93 95 Oxygen Delivery Method Room Air Oxygen Flow Rate Sepsis Recent Fever Within 48 Hours No Sepsis New/Unexplained Change in Mental Status No Sepsis Action Taken by Nursing Physician Notified 03/19/22 20:04 03/19/22 20:10 03/19/22 20:20 Temperature Temperature Source Pulse Rate 115 H 115 H 113 H Pulse Rate [Left Radial] Pulse Rate from SpO2 Sensor 113 H Pulse Rhythm [Left Radial] Pulse Strength [Left Radial] Respiratory Rate 21 25 H Respiratory Effort / Characteristics Respiratory Depth Respiratory Pattern Blood Pressure Blood Pressure Mean Blood Pressure Position Pulse Oximetry 95 94 Oxygen Delivery Method Nasal Cannula Oxygen Flow Rate 2 Sepsis Recent Fever Within 48 Hours Sepsis New/Unexplained Change in Mental Status Sepsis Action Taken by Nursing 03/19/22 20:21 03/19/22 20:30 03/19/22 20:40 Temperature Temperature Source Pulse Rate 113 H 114 H 113 H Pulse Rate [Left Radial] Pulse Rate from SpO2 Sensor 113 H 114 H 113 H Pulse Rhythm [Left Radial] Pulse Strength [Left Radial] Respiratory Rate 28 H 27 H 27 H Respiratory Effort / Characteristics Respiratory Depth Respiratory Pattern Blood Pressure 136/80 Blood Pressure Mean 98 Blood Pressure Position Pulse Oximetry 93 94 94 Oxygen Delivery Method Oxygen Flow Rate Sepsis Recent Fever Within 48 Hours Sepsis New/Unexplained Change in Mental Status Sepsis Action Taken by Nursing 03/19/22 20:50 03/19/22 21:00 03/19/22 21:10 Temperature Temperature Source Pulse Rate 112 H 112 H 112 H Pulse Rate [Left Radial] Pulse Rate from SpO2 Sensor 112 H 112 H 112 H Pulse Rhythm [Left Radial] Pulse Strength [Left Radial] Respiratory Rate 25 H 28 H 26 H Respiratory Effort / Characteristics Respiratory Depth Respiratory Pattern Blood Pressure 134/77 Blood Pressure Mean 96 Blood Pressure Position Pulse Oximetry 95 95 94 Oxygen Delivery Method Oxygen Flow Rate Sepsis Recent Fever Within 48 Hours Sepsis New/Unexplained Change in Mental Status Sepsis Action Taken by Nursing 03/19/22 21:20 03/19/22 21:30 03/19/22 21:40 Temperature Temperature Source Pulse Rate 112 H 112 H 110 H Pulse Rate [Left Radial] Pulse Rate from SpO2 Sensor 112 H 112 H 111 H Pulse Rhythm [Left Radial] Pulse Strength [Left Radial] Respiratory Rate 28 H 31 H 27 H Respiratory Effort / Characteristics Respiratory Depth Respiratory Pattern Blood Pressure 156/91 H Blood Pressure Mean 112 Blood Pressure Position Pulse Oximetry 94 95 94 Oxygen Delivery Method Oxygen Flow Rate Sepsis Recent Fever Within 48 Hours Sepsis New/Unexplained Change in Mental Status Sepsis Action Taken by Nursing 03/19/22 21:50 03/19/22 22:00 03/19/22 22:10 Temperature Temperature Source Pulse Rate 108 H 106 H 104 H Pulse Rate [Left Radial] 99 H Pulse Rate from SpO2 Sensor 108 H 106 H 103 H Pulse Rhythm [Left Radial] Regular Pulse Strength [Left Radial] Normal Respiratory Rate 27 H 26 H 24 Respiratory Effort / Characteristics Non-Labored Respiratory Depth Normal Respiratory Pattern Blood Pressure 129/80 Blood Pressure Mean 96 Blood Pressure Position Pulse Oximetry 94 95 92 Oxygen Delivery Method Nasal Cannula Oxygen Flow Rate 3 Sepsis Recent Fever Within 48 Hours Sepsis New/Unexplained Change in Mental Status Sepsis Action Taken by Nursing 03/19/22 22:20 03/19/22 22:30 03/19/22 22:58 Temperature Temperature Source Pulse Rate 100 H 99 H 97 H Pulse Rate [Left Radial] Pulse Rate from SpO2 Sensor 100 H 99 H Pulse Rhythm [Left Radial] Pulse Strength [Left Radial] Respiratory Rate 29 H 24 14 Respiratory Effort / Characteristics Respiratory Depth Respiratory Pattern Blood Pressure 132/79 132/78 Blood Pressure Mean 96 Blood Pressure Position Pulse Oximetry 97 100 99 Oxygen Delivery Method Room Air Oxygen Flow Rate Sepsis Recent Fever Within 48 Hours Sepsis New/Unexplained Change in Mental Status Sepsis Action Taken by Assisted Medications Current Medication List: was personally reviewed by me Laboratory Data Attestation: I reviewed the patient's lab results. Result diagrams: 03/19/22 20:04 03/19/22 20:04 Lab Results 03/19/22 03/19/22 03/19/22 Range/Units 20:04 20:04 20:04 WBC 7.47 (4.8-10.8) K/uL RBC 5.15 (4.2-5.4) M/uL Hgb 16.4 H (12.0-16.0) g/dL Hct 47.7 H (37-47) % MCV 92.6 (80-100) fL MCH 31.8 (25-34) pg MCHC 34.4 (32-36) g/dL RDW Std Deviation 43.4 (36.4-46.3) fL RDW Coeff of [place] 12.8 (11.5-14.5) % Plt Count 228 (130-400) K/uL MPV 10.5 H (7.4-10.4) fL Immature Gran % (Auto) 0.5 % Neut % (Auto) 67.2 % Lymph % (Auto) 26.6 % [place] % (Auto) 4.1 % Eos % (Auto) 1.5 % Baso % (Auto) 0.1 % Neut # (Auto) 5.01 (1.4-6.5) K/uL Lymph # (Auto) 1.99 (1.2-3.4) K/uL [place] # (Auto) 0.31 (0.11-0.59) K/uL Eos # (Auto) 0.11 (0-0.5) K/uL Baso # (Auto) 0.01 (0-0.2) K/uL Immature Gran # (Auto) 0.04 H (0.00-0.02) K/uL VBG pH (7.36-7.41) VBG pCO2 (38-50) mmHg VBG pO2 mmHg VBG HCO3 mmol/L VBG O2 Saturation % VBG Base Excess mEq/L Barometric Pressure mm/Hg Sodium 136 (136-145) mmol/L Potassium 3.7 (3.5-5.1) mmol/L Chloride 102 (98-107) mmol/L Carbon Dioxide 22 (21-32) mmol/L Anion Gap 12 H (3-11) BUN 6 (6-23) mg/dl Creatinine 0.74 (0.6-1.2) mg/dl Est Cr Clr Drug Dosing 88.1 ml/min Est GFR ( Amer) 99.2 ml/min Est GFR (Non-Af Amer) 85.6 ml/min BUN/Creatinine Ratio 8.1 L (10-20) Glucose 290 H (70-99(Fasting)) mg/dl Lactate 3.1 H* (0.4-2.0) mmol/L Calcium 9.3 (8.5-10.1) mg/dl Magnesium 1.4 L (1.7-2.4) mg/dl Iron (35-150) mcg/dl Unsaturated IBC (155-355) mcg/dl Total Bilirubin 0.4 (0.2-1.0) mg/dl AST 10 L (13-39) U/L ALT 8 (7-52) U/L Alkaline Phosphatase 77 (34-104) U/L Total Creatine Kinase 19 L (26-192) U/L Troponin I High Sens 5.6 (0-14) pg/ml B-Natriuretic Peptide (0-100) pg/ml Total Protein 7.0 (6.0-8.3) gm/dl Albumin 3.7 (3.4-5.0) gm/dl Globulin 3.3 (2.5-4.0) gm/dl Albumin/Globulin Ratio 1.1 (0.9-2) Procalcitonin (0-0.5) ng/ml TSH (0.300-4.500) uIu/ml SARS-CoV-2, RNA, NAAT (NEGATIVE) 03/19/22 03/19/22 03/19/22 Range/Units 20:04 20:04 20:07 WBC (4.8-10.8) K/uL RBC (4.2-5.4) M/uL Hgb (12.0-16.0) g/dL Hct (37-47) % MCV (80-100) fL MCH (25-34) pg MCHC (32-36) g/dL RDW Std Deviation (36.4-46.3) fL RDW Coeff of [place] (11.5-14.5) % Plt Count (130-400) K/uL MPV (7.4-10.4) fL Immature Gran % (Auto) % Neut % (Auto) % Lymph % (Auto) % [place] % (Auto) % Eos % (Auto) % Baso % (Auto) % Neut # (Auto) (1.4-6.5) K/uL Lymph # (Auto) (1.2-3.4) K/uL [place] # (Auto) (0.11-0.59) K/uL Eos # (Auto) (0-0.5) K/uL Baso # (Auto) (0-0.2) K/uL Immature Gran # (Auto) (0.00-0.02) K/uL VBG pH (7.36-7.41) VBG pCO2 (38-50) mmHg VBG pO2 mmHg VBG HCO3 mmol/L VBG O2 Saturation % VBG Base Excess mEq/L Barometric Pressure mm/Hg Sodium (136-145) mmol/L Potassium (3.5-5.1) mmol/L Chloride (98-107) mmol/L Carbon Dioxide (21-32) mmol/L Anion Gap (3-11) BUN (6-23) mg/dl Creatinine (0.6-1.2) mg/dl Est Cr Clr Drug Dosing ml/min Est GFR ( Amer) ml/min Est GFR (Non-Af Amer) ml/min BUN/Creatinine Ratio (10-20) Glucose (70-99(Fasting)) mg/dl Lactate (0.4-2.0) mmol/L Calcium (8.5-10.1) mg/dl Magnesium (1.7-2.4) mg/dl Iron (35-150) mcg/dl Unsaturated IBC (155-355) mcg/dl Total Bilirubin (0.2-1.0) mg/dl AST (13-39) U/L ALT (7-52) U/L Alkaline Phosphatase (34-104) U/L Total Creatine Kinase (26-192) U/L Troponin I High Sens (0-14) pg/ml B-Natriuretic Peptide (0-100) pg/ml Total Protein (6.0-8.3) gm/dl Albumin (3.4-5.0) gm/dl Globulin (2.5-4.0) gm/dl Albumin/Globulin Ratio (0.9-2) Procalcitonin < 0.05 (0-0.5) ng/ml TSH 3.918 (0.300-4.500) uIu/ml SARS-CoV-2, RNA, NAAT NEGATIVE (NEGATIVE) 03/19/22 03/19/22 03/19/22 Range/Units 20:35 22:48 22:48 WBC (4.8-10.8) K/uL RBC (4.2-5.4) M/uL Hgb (12.0-16.0) g/dL Hct (37-47) % MCV (80-100) fL MCH (25-34) pg MCHC (32-36) g/dL RDW Std Deviation (36.4-46.3) fL RDW Coeff of [place] (11.5-14.5) % Plt Count (130-400) K/uL MPV (7.4-10.4) fL Immature Gran % (Auto) % Neut % (Auto) % Lymph % (Auto) % [place] % (Auto) % Eos % (Auto) % Baso % (Auto) % Neut # (Auto) (1.4-6.5) K/uL Lymph # (Auto) (1.2-3.4) K/uL [place] # (Auto) (0.11-0.59) K/uL Eos # (Auto) (0-0.5) K/uL Baso # (Auto) (0-0.2) K/uL Immature Gran # (Auto) (0.00-0.02) K/uL VBG pH 7.34 L (7.36-7.41) VBG pCO2 46 (38-50) mmHg VBG pO2 49 mmHg VBG HCO3 24 mmol/L VBG O2 Saturation 84.7 % VBG Base Excess -2.4 mEq/L Barometric Pressure 731.9 mm/Hg Sodium (136-145) mmol/L Potassium (3.5-5.1) mmol/L Chloride (98-107) mmol/L Carbon Dioxide (21-32) mmol/L Anion Gap (3-11) BUN (6-23) mg/dl Creatinine (0.6-1.2) mg/dl Est Cr Clr Drug Dosing ml/min Est GFR ( Amer) ml/min Est GFR (Non-Af Amer) ml/min BUN/Creatinine Ratio (10-20) Glucose (70-99(Fasting)) mg/dl Lactate (0.4-2.0) mmol/L Calcium (8.5-10.1) mg/dl Magnesium (1.7-2.4) mg/dl Iron 67 (35-150) mcg/dl Unsaturated IBC 304 (155-355) mcg/dl Total Bilirubin (0.2-1.0) mg/dl AST (13-39) U/L ALT (7-52) U/L Alkaline Phosphatase (34-104) U/L Total Creatine Kinase (26-192) U/L Troponin I High Sens (0-14) pg/ml B-Natriuretic Peptide 30 (0-100) pg/ml Total Protein (6.0-8.3) gm/dl Albumin (3.4-5.0) gm/dl Globulin (2.5-4.0) gm/dl Albumin/Globulin Ratio (0.9-2) Procalcitonin (0-0.5) ng/ml TSH (0.300-4.500) uIu/ml SARS-CoV-2, RNA, NAAT (NEGATIVE) 03/19/22 03/19/22 Range/Units 22:48 22:56 WBC (4.8-10.8) K/uL RBC (4.2-5.4) M/uL Hgb (12.0-16.0) g/dL Hct (37-47) % MCV (80-100) fL MCH (25-34) pg MCHC (32-36) g/dL RDW Std Deviation (36.4-46.3) fL RDW Coeff of [place] (11.5-14.5) % Plt Count (130-400) K/uL MPV (7.4-10.4) fL Immature Gran % (Auto) % Neut % (Auto) % Lymph % (Auto) % [place] % (Auto) % Eos % (Auto) % Baso % (Auto) % Neut # (Auto) (1.4-6.5) K/uL Lymph # (Auto) (1.2-3.4) K/uL [place] # (Auto) (0.11-0.59) K/uL Eos # (Auto) (0-0.5) K/uL Baso # (Auto) (0-0.2) K/uL Immature Gran # (Auto) (0.00-0.02) K/uL VBG pH (7.36-7.41) VBG pCO2 (38-50) mmHg VBG pO2 mmHg VBG HCO3 mmol/L VBG O2 Saturation % VBG Base Excess mEq/L Barometric Pressure mm/Hg Sodium (136-145) mmol/L Potassium (3.5-5.1) mmol/L Chloride (98-107) mmol/L Carbon Dioxide (21-32) mmol/L Anion Gap (3-11) BUN (6-23) mg/dl Creatinine (0.6-1.2) mg/dl Est Cr Clr Drug Dosing ml/min Est GFR ( Amer) ml/min Est GFR (Non-Af Amer) ml/min BUN/Creatinine Ratio (10-20) Glucose (70-99(Fasting)) mg/dl Lactate 2.9 H* (0.4-2.0) mmol/L Calcium (8.5-10.1) mg/dl Magnesium (1.7-2.4) mg/dl Iron (35-150) mcg/dl Unsaturated IBC (155-355) mcg/dl Total Bilirubin (0.2-1.0) mg/dl AST (13-39) U/L ALT (7-52) U/L Alkaline Phosphatase (34-104) U/L Total Creatine Kinase (26-192) U/L Troponin I High Sens (0-14) pg/ml B-Natriuretic Peptide (0-100) pg/ml Total Protein (6.0-8.3) gm/dl Albumin (3.4-5.0) gm/dl Globulin (2.5-4.0) gm/dl Albumin/Globulin Ratio (0.9-2) Procalcitonin (0-0.5) ng/ml TSH 1.975 (0.300-4.500) uIu/ml SARS-CoV-2, RNA, NAAT (NEGATIVE) Administered Medications Magnesium Sulfate/Dextrose (Magnesium Sulfate / D5w) 1 gm in 100 mls @ 50 mls/hr IV Q2H MARY Stop: 03/20/22 04:29 Last Admin: 03/19/22 22:55 Dose: 50 mls/hr Documented by: [id number] Discontinued Medications Sodium Chloride (Nss 1000ml) 1,000 mls @ 999 mls/hr IV .Q1H1M MARY Stop: 03/19/22 21:15 Last Infusion: 03/19/22 21:19 Dose: 0 mls/hr Documented by: [id number] Admin: 03/19/22 20:08 Dose: 999 mls/hr Documented by: [id number] Sodium Chloride (Nss 1000ml) 1,000 mls @ 999 mls/hr IV .Q1H1M ONE Stop: 03/19/22 22:50 Last Infusion: 03/19/22 23:01 Dose: 0 mls/hr Documented by: [id number] Admin: 03/19/22 21:54 Dose: 999 mls/hr Documented by: [id number] Insulin Aspart (Insulin Aspart Per Unit) 5 units SC NOW STA Stop: 03/19/22 22:06 Last Admin: 03/19/22 22:24 Dose: 5 units Documented by: [id number] Cosigned by: [id number] Levalbuterol HCl (Levalbuterol Hcl 0.63 Mg/3 Ml Neb) 0.63 mg NEB NOW STA; Protocol Stop: 03/19/22 22:34 Last Admin: 03/19/22 22:47 Dose: 0.63 mg Documented by: [id number] Methylprednisolone (Methylprednisolone 40 Mg/Ml Vial) 40 mg IV NOW STA Stop: 03/19/22 20:10 Last Admin: 03/19/22 20:21 Dose: 40 mg Documented by: [id number] Imaging Data Radiologist's Impression: Chest X-Ray 03/19/22 20:02 XR chest 1V portable HISTORY: 66 years-old Female weakness acute weakness COMPARISON: Chest radiograph 02/01/2022 TECHNIQUE: Portable AP view of the chest FINDINGS: The cardiomediastinal and hilar silhouettes are unchanged. No pneumothorax, pleural effusion, airspace consolidation or overt pulmonary edema. The bones of the chest appear grossly intact. IMPRESSION: No acute process. ACT 112: Negative or not required by law. The above report was generated using voice recognition software. It may contain grammatical, syntax or spelling errors. Electronically signed by: Altaf Lofton M.D. 03/19/2022 8:26 PM Discharge Plan Visit Data Chief Complaint: Weakness ED Provider: rEwin Rodriguez Discharge Problem: Acute dehydration, Dyspnea, Weakness, Tobacco abuse Patient Disposition: Admitted As Inpatient Discharge Instructions Interventions: ED Discharge Assessment Last Done: 03/19/22 22:58 Forms Stand Alone Forms: [facility] Prescriptions Prescriptions: No Action pantoprazole [Protonix] 40 mg tablet,delayed release (DR/EC) 40 mg PO QAM RF: 0 gabapentin [Neurontin] 100 mg capsule See Rx Instructions .ROUTE .COMPLEX RF: 0 buspirone 15 mg tablet 15 mg PO TID RF: 0 Creon 12,000-38,000 -60,000 unit capsule,delayed release(DR/EC) 1 cap PO TID RF: 0 Xarelto 20 mg tablet 20 mg PO QAM RF: 0 ropinirole 0.5 mg tablet 0.5 mg PO HS RF: 0 escitalopram oxalate [Lexapro] 20 mg tablet 20 mg PO QAM RF: 0 levothyroxine 50 mcg tablet 50 mcg PO QAM RF: 0 famotidine 20 mg tablet 20 mg PO DAILY RF: 0 clonazepam 1 mg tablet 1 mg PO TID RF: 0 cholestyramine (with sugar) [Questran] 4 gram powder in packet 1 ea PO DAILY RF: 0 ferrous sulfate [Iron (ferrous sulfate)] 325 mg (65 mg iron) tablet 325 mg PO Q OTHER DAY RF: 0 divalproex [Depakote ER] 500 mg tablet extended release 24 hr 1,500 mg PO HS RF: 0 quetiapine [Seroquel] 400 mg tablet 400 mg PO HS RF: 0 metformin 500 mg tablet 500 mg PO BID RF: 0 cyanocobalamin (vitamin B-12) [Vitamin B-12] 1,000 mcg tablet 1,000 mcg PO BID RF: 0 loratadine [Allergy Relief (loratadine)] 10 mg tablet 10 mg PO QAM RF: 0 thiamine HCl (vitamin B1) [Vitamin B-1] 100 mg tablet 100 mg PO BID RF: 0 ondansetron HCl 4 mg tablet 4 mg PO Q8 PRN (Reason: Nausea And Vomiting) RF: 0 ergocalciferol (vitamin D2) 1,250 mcg (50,000 unit) capsule 1,250 mcg PO WK RF: 0 Referrals Referrals: Dylan Fuentes PA-C [Primary Care Provider] - Discharge Problem: Dyspnea Qualifiers: Dyspnea type: shortness of breath Qualified Code(s): R06.02 - Shortness of breath
[2022-03-19] MEDS ORDERED: SODIUM CHLORIDE 0.9% 1000ML 1,000 ML IV SCH (20:15)
--- NOTE | 2022-03-19 20:27 | XRay Report ---
XR chest 1V portable HISTORY: 66 years-old Female weakness acute weakness COMPARISON: Chest radiograph 02/01/2022 TECHNIQUE: Portable AP view of the chest FINDINGS: The cardiomediastinal and hilar silhouettes are unchanged. No pneumothorax, pleural effusion, airspac e consolidation or overt pulmonary edema. The bones of the chest appear grossly intact. IMPRESSION: No acute process. ACT 112: Negative or not required by law. The above report was generated using voice recognition software. It may contain grammatical, syntax o r spelling errors. Electronically signed by: Altaf Lofton M.D. 03/19/2022 8:26 PM
[2022-03-19 20:34] LABS: Basophils # (auto) 0.01 K/uL (0-0.2); Basophils % (auto) 0.1 %; Eosinophils # (auto) 0.11 K/uL (0-0.5); Eosinophils % (auto) 1.5 %; Hematocrit (blood only) 47.7 % (37-47); Hemoglobin 16.4 g/dL (12.0-16.0); Immature Granulocytes # (auto) 0.04 K/uL (0.00-0.02); Immature Granulocytes % (auto) 0.5 %; Lymphocytes # (auto) 1.99 K/uL (1.2-3.4); Lymphocytes % (auto) 26.6 %; Mean Corpuscular Hemoglobin 31.8 pg (25-34); Mean Corpuscular Hgb Conc 34.4 g/dL (32-36); Mean Corpuscular Volume 92.6 fL (80-100); Mean Platelet Volume 10.5 fL (7.4-10.4); Monocytes # (auto) 0.31 K/uL (0.11-0.59); Monocytes % (auto) 4.1 %; Neutrophils # (auto) 5.01 K/uL (1.4-6.5); Neutrophils % (auto) 67.2 %; Platelet Count 228 K/uL (130-400); RDW Coefficient of Variation 12.8 % (11.5-14.5); RDW Standard Deviation 43.4 fL (36.4-46.3); Red Blood Count 5.15 M/uL (4.2-5.4); White Blood Count 7.47 K/uL (4.8-10.8)
[2022-03-19 21:01] LABS: Base Excess VBG -2.4 mEq/L; Oxygen Saturation VBG 84.7 %; pH VBG 7.34 (7.36-7.41)
[2022-03-19 21:12] LABS: Troponin I High Sensitivity 5.6 pg/ml (0-14)
[2022-03-19 21:28] LABS: Albumin Globulin Ratio 1.1 (0.9-2); Albumin Level 3.7 gm/dl (3.4-5.0); BUN Creatinine Ratio 8.1 (10-20); Bilirubin,Total 0.4 mg/dl (0.2-1.0); Calcium 9.3 mg/dl (8.5-10.1); Creatinine Clr Calc Pharmacy 88.1 ml/min; Est GFR (African American) 99.2 ml/min; Est GFR (Non-African American) 85.6 ml/min; Globulin 3.3 gm/dl (2.5-4.0); Magnesium 1.4 mg/dl (1.7-2.4); Potassium 3.7 mmol/L (3.5-5.1)
[2022-03-19] MEDS ORDERED: SODIUM CHLORIDE 0.9% 1000ML 1,000 ML IV ONE (21:50)
[2022-03-19] MEDS ORDERED: INSULIN ASPART PER UNIT SC STA (22:05)
[2022-03-19] MEDS ORDERED: THIAMINE HCL 200 MG in SODIUM CHLORIDE 0.9% 50 ML IV STA (22:24)
[2022-03-19] MEDS ORDERED: LEVALBUTEROL HCL 0.63 MG/3 ML NEB NEB STA (22:33)
--- NOTE | 2022-03-19 22:39 | History & Physical Report ---
Date of Service March 19, 2022 Assessment & Plan (1) Generalized weakness: Plan: This is a 66-year-old female with a history of iron deficiency anemia, hyperparathyroidism, history of PE, IBS, anxiety, depression, schizoaffective disorder, GERD, failure to thrive who presented to [facility] for evaluation of weakness x 3 weeks in the setting of polydipsia, polyuria, and difficulty affording insulin, alongside n/v/d in the two days [employer]. Generalized Weakness - 3+ weeks [employer] of ongoing weakness in the setting of polydipsia/polyuria over the same timeframe - Suspect largely metabolic in nature compounded by deconditioning -- poorly controlled DM, dehydration, n/v, possibly compounded by metformin and other psychogenic RX - Continue infectious w/u, though no clear source at this time -- await UA, BCX - PT, OT evaluations greatly appreciated - Fall precautions - Low threshold to obtain CT-H with any acute changes in MS -- no FNDs on exam right now or noted in history - Check: TSH, B12, folate (2) Hyperglycemia: Plan: Hyperglycemia - Known h/o T2DM that has been difficult to control, last A1c at 8.3% in 01/2022 - Patient reports significant issues w/ affording insulin; does regularly take metformin b.i.d. - On arrival to [facility], found to have BSG 290 and subjective reports of polydipsia/polyuria over past few weeks that weakness had been ongoing - Initiate ACHS checks w/ SSI (1:30) and carb correction (1:15); consider adding basal insulin pending further data collection - Consider diabetic education while here once acute issues are controlled - Consult case management - appreciate aid with identifying possible sources of financial assistance - s/p 2L NSS in ED -- continue NSS w/ mIVF @ 100cc/hr x 1L - Monitor UOP (3) Dyspnea: Plan: Ebmfv-ay-Xignrus Dyspnea - Patient subjectively reporting +SOB over 2 days [employer]INE [employer]; feels better with O2 on, though saturating well, VBG only with mild acidosis in setting of elevated lactate and normal pCO2 - CXR without acute abnormalities; procal negative; COVID negative - Check influenza A/B given ongonig GI symptoms, worsening SOB - Suspect most of this is largely due to deconditioning, ill state, and ongoing heavy tobacco use. No e/o acute infectious process on imaging, no findings c/w VTE (+anticoagulated) or hypervolemia - Will put on DuoNebs q6h MARY x 1 day then PRN - Interested in smoking cessation -- can set up with patches once acute issues stabilized - Will need low-dose CT lungs for screening as outpatient - Recommend PFTs as outpatient (4) History of pulmonary embolism: Plan: History of PE - Continue Xarelto -- has been compliant with medication (5) Anxiety and depression: Plan: Anxiety/depression/schizoaffective disorder - Continue home BuSpar, escitalopram, quetiapine, divalproex - Per chart review, Psych Consultation in Oct 2020, patient had shared that she had a mood disorder, "where you mood is either way up or way down" in addition to schizoaffective -- ?BPD - Hold Klonopin with w/u for ongoing weakness (6) Vomiting and diarrhea: Plan: GI Upset - Nausea, Vomiting, Diarrhea - Possibly gastroenterocolitis vs. secondary to hyperglycemia, metformin use; no focal findings on exam to suggest surgical issue - Check influenza, as above - Obtain KUB - Nausea: Zofran p.r.n. - Monitor symptoms while here: consider stool collection and testing should symptoms be ongoing despite above therapies (7) Lactic acidosis: Plan: Lactic Acidosis - Lactate 3.1 on admission. Mildly sluggish cap refill - appears clinically dry on exam. No acute evidence of cardiopulmonary dysfunction or infection, as above -- though w/u is ongoing. - Suspect partly hypovolemia-related from dehydration, also likely part B contribution from metformin, hyperglycemia - Ample hydration, as above -- recheck after second liter is completed - Monitor infectious w/u as above (8) Restless leg: Plan: Restless leg syndrome - Continue ropinirole HS (9) GERD (gastroesophageal reflux disease): Plan: GERD - Continue PPI Plan: Code: FULL CODE Diet: Carb consistent PPX: Continue Xarelto Dispo: MS History of Present Illness Primary Care Provider: Dylan Fuentes PA-C This is a 66-year-old female with a history of iron deficiency anemia, hyperparathyroidism, history of PE, IBS, anxiety, depression, schizoaffective disorder, GERD, failure to thrive who presented to [facility] for evaluation of weakness x 3 weeks. She describes this weakness as significant fatigue. She denies any issues moving her arms or her legs. She does endorse numbness "all over my body." She denies any falls at home within the last several weeks. She said sometimes she feels lightheaded, but it comes and goes. She said that her p.o. intake has been quite poor lately, but she has been very thirsty and voiding a lot. She denies dysuria or malodorous urine. Denies any fevers. Does say that she developed nausea and vomiting, alongside loose stools, on day of admission. She said that she has had some chills. She denies any chest pain, palpitations. She endorses chronic shortness of breath, which seems worse over the last day -- no increase in coughing. She reports taking all of her medications as prescribed, other than insulinshe informs me that she has had a very difficult time affording this. She lives at home with her sister. She denies any use of alcohol or recreational drugs. She does smoke approximately 2-1/2 packs/day for "the longest time." Medications reviewed, includes BuSpar 15 mg 3 times daily, cholestyramine, clonazepam 1 mg 3 times daily as needed, Creon 1 cap 3 times daily, vitamin B12, Depakote 1500 mg nightly, Lexapro 20 mg daily, famotidine 20 mg daily, ferrous sulfate daily, gabapentin, levothyroxine 50 mcg daily, metformin 500 mg twice daily, Zofran 4 mg as needed, Protonix 40 mg daily, Seroquel 400 mg nightly, ropinirole 0.5 mg nightly, vitamin B1, Xarelto 20 mg daily. In the ER, patient presented with blood pressure 130/80, heart rate 115, respiratory rate 25, saturating 90% on room air. She is afebrile. Hematology reveals hemoglobin 16.4, no white count. VBG reveals mild acidosis 7.34 with PCO2 46, bicarb 24. Chemistries revealing for hypomagnesemia 1.4, blood sugar 2 90. LFTs, procalcitonin, TSH otherwise normal. COVID-negative. Lactate elevated at 2.5. Chest x-ray without acute process. Blood cultures pending. ECG revealing of sinus tachycardia with right bundle branch block, unchanged compared to Consuelo studies. She was given normal saline and 40 mg of methylprednisone. Allergies Allergy/AdvReac Type Severity Reaction Status Date / Time egg AdvReac Severe Vomiting Verified 03/19/22 22:45 Penicillins AdvReac Severe Vomiting Verified 03/19/22 22:45 Home Medications Medication Instructions Recorded Confirmed Type buspirone 15 mg tablet 15 mg PO TID 10/25/20 03/19/22 History gabapentin 100 mg capsule See Rx Instructions .ROUTE .COMPLEX 10/25/20 03/19/22 History (Neurontin) kuepxd-nhihjtco-mmkgadg 1 cap PO TID 10/25/20 03/19/22 History 12,000-38,000-60,000 unit capsule,delayed rel (Creon) pantoprazole 40 mg tablet,delayed 40 mg PO QAM 10/25/20 03/19/22 History release (Protonix) rivaroxaban 20 mg tablet (Xarelto) 20 mg PO QAM 10/25/20 03/19/22 History escitalopram oxalate 20 mg tablet 20 mg PO QAM 03/18/21 03/19/22 History (Lexapro) ropinirole 0.5 mg tablet 0.5 mg PO HS 03/18/21 03/19/22 History cholestyramine (with sugar) 4 gram 1 ea PO DAILY 06/03/21 03/19/22 History powder for susp in a packet (Questran) divalproex 500 mg tablet,extended 1,500 mg PO HS 06/03/21 03/19/22 History release 24 hr (Depakote ER) ferrous sulfate 325 mg (65 mg 325 mg PO Q OTHER DAY 06/03/21 03/19/22 History iron) tablet (Iron (ferrous sulfate)) quetiapine 400 mg tablet (Seroquel) 400 mg PO HS 06/03/21 03/19/22 History cyanocobalamin (vitamin B-12) 1,000 mcg PO BID 08/05/21 03/19/22 History 1,000 mcg tablet (Vitamin B-12) loratadine 10 mg tablet (Allergy 10 mg PO QAM 08/05/21 03/19/22 History Relief (loratadine)) metformin 500 mg tablet 500 mg PO BID 08/05/21 03/19/22 History thiamine HCl (vitamin B1) 100 mg 100 mg PO BID 10/11/21 03/19/22 History tablet (Vitamin B-1) levothyroxine 50 mcg tablet 50 mcg PO QAM 01/21/22 03/19/22 History ergocalciferol (vitamin D2) 1,250 1,250 mcg PO WK 02/02/22 03/19/22 History mcg (50,000 unit) capsule ondansetron HCl 4 mg tablet 4 mg PO Q8 PRN 02/02/22 03/19/22 History clonazepam 1 mg tablet 1 mg PO TID 02/25/22 03/19/22 History famotidine 20 mg tablet 20 mg PO DAILY 02/25/22 03/19/22 History Past Med/Surg History Medical History Acute hyperglycemia Acute hyponatremia Anemia Anxiety and depression Arthritis Aspiration pneumonia Bacteriuria Diabetes GERD (gastroesophageal reflux disease) History of pulmonary embolism Hyperparathyroidism Hypomagnesemia Hypoxia Iron deficiency anemia Irritable bowel syndrome Schizoaffective disorder Smoking Urine culture positive Vomiting and diarrhea Weakness Surgical History History of section x2 Social History Smoking Status: Current every day smoker Tobacco Type: Cigarettes Cigarettes Per Day: 2-3 packs; Second Hand Exposure: No; Do You Dip or Chew Tobacco: No; Tobacco Cessation Education Requested by Patient: No Hx Alcohol Use: No Hx Substance Use: No Preferred Language: Samoan Communication Ability: Effective Stockroom Coordinator Required: No Beliefs That Will Affect Care: None marital status: Current Living Situation: Family Current Living Situation Comment: Lives with Daughter How many Children do You have: 2 Other Information That Helps Us Care for You: No Feels Safe at Home: Yes Safety Concerns: Feels Safe At This Time Assistive Devices: Walker and Wheelchair Review of Systems Review of Systems: as per HPI Physical Exam Physical Exam: General: Tired appearing 66-year-old female in no acute distress. HEENT: NCAT. - Eyes - Sclera are white, anicteric, and without injection. - Mouth - Mucous membranes appear mildly dry. - Neck - supple, no appreciable JVD -- though difficult w/ habitus. Cardiac: Mild tachycardia w/ regular rhythm; S1 and S2 present with no murmurs, rubs, or gallops. Pulmonary: Good respiratory effort with symmetric expansion of the chest. No use of accessory muscles. Lungs were clear to auscultation bilaterally with no crackles or wheezes. Abdominal: Normoactive bowel sounds. Abdomen was soft, mildly distended, but non-tender to palpation. Extremities: Upper and lower extremities are warm and well perfused. No peripheral edema in the lower extremities bilaterally. Capillary refill ~3 seconds. Psych: Well-developed, well-nourished, appropriately dressed for occasion. Behavior is cooperative and appropriate. Affect is WNL. Insight is appropriate. Neuro: - Cranial Nerves: CN I, IX, XIII, and X - not assessed. II - PERRL. III/IV/ - EOMs WNL. No nystagmus. V - Facial sensation in tact in all three divisions; jaw opening WNL. VII - Patient is able to smile symmetrically and keep eyes close against resistance. IX - Patient is able to shrug shoulders against resistance. XI - Soft palate raises equally and appropriately while saying "ah." XII - patient is able to stick out tongue and deviate from [id number]-jw-gnlz appropriately. - Motor: UE - Finger, wrist, elbow, and shoulder strength is 5/5 bilaterally. LE - Hip, knee, and ankle strength is 4/5 bilaterally. - Sensation: UE and LE sensation to light touch is grossly intact bilaterally. Results & Data Results & Data ([facility]) Vital Signs (Past 12 Hours) Vital Signs Temp Pulse Resp BP Pulse Ox 03/19/22 21:20 112 H 28 H 94 03/19/22 21:10 112 H 26 H 03/19/22 21:00 112 H 28 H 134/77 95 03/19/22 20:50 112 H 25 H 03/19/22 20:40 113 H 27 H 03/19/22 20:30 114 H 27 H 03/19/22 20:21 113 H 28 H 136/80 93 03/19/22 20:20 113 H 25 H 94 03/19/22 20:10 115 H 21 03/19/22 20:04 115 H 95 03/19/22 20:00 113 H 28 H 03/19/22 19:53 115 H 26 H 93 03/19/22 19:51 37.0 C 115 H 25 H 127/81 90 Code Status & VTE Plan VTE Prophylaxis Plan VTE Prophylaxis will be ordered: No Supervising Physician Co-Signing Physician Notes Patient seen and examined, chart reviewed, case discussed with Dr. Marie and I agree with the assessment and plan as documented above. In brief, patient is a 66yo female presentign with generalized weakness, polyuria/polydipsia and poorly controlled diabetes, dyspnea On exam patient with dry mucus membranes +S1/S2, regular Lungs CTA Abd soft, NT/ND Ext - no edema Labs and images reviewed Assessment/Plan -Follow cultures -PT/OT evaluation -Blood sugar control -Remainder as above Resident Activity Tracking Resident Involvement: Resident Care Provided Care Provided: Adult Hospital Medicine
[2022-03-19] MEDS: MAGNESIUM SULFATE / D5W 1 GM/100 ML BAG IV SCH (22:55)
[2022-03-20 00:06] LABS: Ferritin 99.7 ng/ml (8-388)
[2022-03-20] MEDS ORDERED: CARBOHYDRATES FOR HYPOGLYCEMIA PO PRN (00:09)
[2022-03-20] MEDS ORDERED: GLUCOSE 40% GEL 15 GM TUBE PO PRN (00:09)
[2022-03-20] MEDS ORDERED: DEXTROSE 50% 50 ML SYRINGE IV PRN (00:09)
[2022-03-20] MEDS ORDERED: GLUCOSE 10 TABS/TUBE PO PRN (00:09)
[2022-03-20] MEDS ORDERED: SODIUM CHLORIDE 0.9% 1000ML 1,000 ML IV SCH (00:09)
[2022-03-20] MEDS ORDERED: GLUCAGON FOR INJ 1 MG VIAL SQ PRN (00:09)
[2022-03-20 00:16] LABS: Folate (Folic Acid) 2.57 ng/ml (>5.38)
[2022-03-20 00:17] LABS: Vitamin B12 > 1500 pg/ml (180-914)
[2022-03-20] MEDS: ACETAMINOPHEN 325 MG TAB PO PRN ×3 (00:49→22:00)
[2022-03-20] MEDS ORDERED: INSULIN ASPART PER UNIT SC SCH (01:00)
[2022-03-20 01:02] LABS: Influenza A virus by PCR Negative (Negative); Influenza B virus by PCR Negative (Negative)
[2022-03-20] MEDS ORDERED: ONDANSETRON 4 MG OD TAB PO PRN (01:32)
[2022-03-20] MEDS: MAGNESIUM SULFATE / D5W 1 GM/100 ML BAG IV SCH ×2 (01:50→03:51)
[2022-03-20 04:05] LABS: Hematocrit (blood only) 42.2 % (37-47); Hemoglobin 14.7 g/dL (12.0-16.0); Immature Granulocytes # (auto) 0.02 K/uL (0.00-0.02); Immature Granulocytes % (auto) 0.4 %; Lymphocytes # (auto) 1.04 K/uL (1.2-3.4); Lymphocytes % (auto) 19.6 %; Mean Corpuscular Hemoglobin 31.4 pg (25-34); Mean Corpuscular Hgb Conc 34.8 g/dL (32-36); Mean Corpuscular Volume 90.2 fL (80-100); Mean Platelet Volume 9.8 fL (7.4-10.4); Monocytes # (auto) 0.41 K/uL (0.11-0.59); Monocytes % (auto) 7.7 %; Neutrophils # (auto) 3.83 K/uL (1.4-6.5); Neutrophils % (auto) 72.3 %; Platelet Count 192 K/uL (130-400); RDW Coefficient of Variation 12.8 % (11.5-14.5); RDW Standard Deviation 41.7 fL (36.4-46.3); Red Blood Count 4.68 M/uL (4.2-5.4)
[2022-03-20] MEDS: INSULIN ASPART PER UNIT SC SCH ×5 (04:09→21:13)
[2022-03-20 04:29] LABS: BUN Creatinine Ratio 13.1 (10-20); Calcium 8.3 mg/dl (8.5-10.1); Creatinine Clr Calc Pharmacy 106.9 ml/min; Est GFR (Non-African American) 95.8 ml/min; Magnesium 1.9 mg/dl (1.7-2.4); Potassium 4.3 mmol/L (3.5-5.1)
[2022-03-20 05:21] LABS: Appearance Urine Clear (Clear); Bilirubin Urine Negative (Negative); Blood Urine Negative (Negative); Color Urine Yellow; Glucose Urine UA 3+ (Negative); Ketones Urine 1+ (Negative); Leukocyte Esterase Urine Negative (Negative); Nitrite Urine Negative (Negative); Protein Urine Negative (Negative); Specific Gravity Urine 1.022 (1.000-1.030); Urobilinogen Urine Negative (Negative)
[2022-03-20] MEDS: LEVOTHYROXINE SODIUM 50 MCG TABLET PO SCH (06:38)
[2022-03-20] MEDS: ALBUT/IPRATROP 3MG/0.5MG NEB 3 ML VIAL NEB SCH ×3 (07:09→19:48)
[2022-03-20 07:19] LABS: Estimated Average Glucose 223 mg/dl; Hemoglobin A1C 9.4 % (4.5-5.6)
--- NOTE | 2022-03-20 08:09 | XRay Report ---
KUB CLINICAL HISTORY: Nausea and vomiting. Diarrhea. Abdominal distention. FINDINGS: 2 AP supine abdominal radiographs are compared to study dated 02/02/2022 and correlated with abdominal CT dated 10/11/2021. There is gaseous distention of the stomach and proximal small bowel l oops. Small bowel loops measure up to 4.0 cm. There is a paucity of distal bowel gas and the appearan ce is typical for a small bowel obstruction. No evidence of intraperitoneal free air is seen on these supine images. Cholecystectomy clips are noted in the right upper quadrant. There are no abnormal ab dominal calcifications. Phleboliths are seen in the pelvis. The skeletal structures are osteopenic an d appear intact. There is moderate lumbosacral spondylosis. IMPRESSION: Radiographic findings are typical for a small bowel obstruction. Clinical correlation russ l be required. Electronically signed by: Amaury Meier M.D. 03/20/2022 8:07 AM
[2022-03-20] MEDS ORDERED: PANTOprazole 40 MG TAB PO SCH (09:00)
[2022-03-20] MEDS ORDERED: FAMOTIDINE 20 MG TAB PO SCH (09:00)
[2022-03-20] MEDS: FOLIC ACID 1 MG in SYRINGE 9.8 ML IV SCH (09:13)
[2022-03-20] MEDS: ESCITALOPRAM OXALATE 20 MG TAB PO SCH (09:13)
[2022-03-20] MEDS: CYANOCOBALAMIN (B-12) 500 MCG TABLET PO SCH ×2 (09:13→20:21)
[2022-03-20] MEDS: PANCREAZE (LIPASE 4,200U) CAP PO SCH ×3 (09:14→18:08)
[2022-03-20] MEDS: THIAMINE HCL 100 MG TAB PO SCH ×2 (09:14→20:21)
[2022-03-20] MEDS: RIVAROXABAN 20 MG TAB PO SCH (09:14)
[2022-03-20] MEDS: LORATADINE 10 MG TAB PO SCH (09:14)
[2022-03-20] MEDS: busPIRone 15 MG TAB PO SCH ×3 (09:14→20:21)
--- NOTE | 2022-03-20 09:15 | Hospitalist Progress Note ---
Date of Service March 20, 2022 Assessment & Plan (1) Generalized weakness: Plan: This is a 66-year-old female with a history of iron deficiency anemia, hyperparathyroidism, history of PE, IBS, anxiety, depression, schizoaffective disorder, GERD, failure to thrive who presented to [facility] for evaluation of weakness x 3 weeks in the setting of polydipsia, polyuria, and difficulty affording insulin, alongside n/v/d in the two days [employer]. GI Upset: Nausea, Vomiting, Diarrhea - Possibly gastroenterocolitis vs. sec to DM induced gastroparesis, metformin use; no focal findings on exam to suggest surgical issue - KUB demonstrating concerns for SBO - CT Abd/Pelvis demonstrating no acute infectious or inflammatory findings in the abdomen or pelvis. - maintain NPO with sips and medications overnight - started on Cefepime and Flagyl given concern of potential intra-abdominal source of symptoms in the setting of elevated lactate - Zofran p.r.n. for nausea/vomiting - consideration of NG tube if worsening abdominal pain/refractory nausea Generalized Weakness - 3+ weeks [employer] of ongoing weakness in the setting of polydipsia/polyuria over the same timeframe - Suspect largely metabolic in nature compounded by deconditioning - poorly controlled DM, dehydration, n/v, possibly compounded by metformin and medications - Continue infectious w/u, though no clear source at this time -- await UA, BCX - PT/OT consulted - Fall precautions Lactic Acidosis: - Lactate 3.1 on admission - Suspect partly hypovolemia-related from dehydration, also likely part B contribution from metformin, hyperglycemia - continue hydration efforts - addition of abx as above for potential infectious etiologies Hyperglycemia: - Known h/o T2DM that has been difficult to control, last A1c at 8.3% in 01/2022 - Patient reports significant issues w/ affording insulin; does regularly take metformin b.i.d. - On arrival to [facility], found to have BSG 290 and subjective reports of polydipsia/polyuria over past few weeks that weakness had been ongoing - BSGs ACHS - Sliding scale insulin while inpatient - Consider diabetic education while here once acute issues are controlled; CM for assistance with insulin financial assistance options - continue NSS w/ mIVF @ 100cc/hr x 1L - Monitor UOP Ilomf-fv-Owfqzeu Dyspnea: - Patient subjectively reporting +SOB over 2 days [employer]; feels better with O2 on, though saturating well, - VBG only with mild acidosis in setting of elevated lactate and normal pCO2 - CXR without acute abnormalities; procal negative; COVID negative - continue DuoNebs q6h PRN - Interested in smoking cessation -- can set up with patches once acute issues stabilized - Will need low-dose CT lungs for screening as outpatient - Recommend PFTs as outpatient History of PE: - Continue Xarelto Restless leg syndrome: - Continue ropinirole HS GERD: - Continue PPI Diet: NPO with sips and meds; advance in AM if continued improvement Code: FULL CODE PPX: Continue Xarelto (2) Lactic acidosis: (3) Hyperglycemia: (4) Dyspnea: (5) History of pulmonary embolism: (6) Anxiety and depression: Plan: Anxiety/depression/schizoaffective disorder - Continue home BuSpar, escitalopram, quetiapine, divalproex - Per chart review, Psych Consultation in Oct 2020, patient had shared that she had a mood disorder, "where you mood is either way up or way down" in addition to schizoaffective -- ?BPD - Hold Klonopin with w/u for ongoing weakness (7) Vomiting and diarrhea: (8) Restless leg: (9) GERD (gastroesophageal reflux disease): Admission and Anticipated Discharge Date Admission Date: March 19, 2022 Supervising Physician Co-Signing Physician Notes Resident Physician Supervision Note: I independently interviewed and examined the patient and verified the lopez history and physical, reviewed labs and image studies and agree with resident Dr. Trotter findings and care plan. Subjective Patient complaining of increased nausea with no vomitus this morning, as well as development of abdominal discomfort that she cannot localize to one area. Feels like this is consistent with how she has felt over the last couple days. Later in the day, had significant improvement in her symptoms after three large bowel movements. Review of Systems Review of Systems: All systems reviewed & are unremarkable except as noted in Subjective Physical Exam Constitutional: well developed, well nourished, + disheveled, + diaphoretic and + overweight; + uncomfortable Eyes: PERRL, conjunctivae normal, anicteric sclerae Respiratory: normal respiratory effort and + respiratory distress; no labored breathing Auscultation: no crackles, no rales, no rhonchi and no wheezes Cardiovascular: Rate/Rhythm: regular rhythm and + tachycardic Heart Sounds: no gallop, no murmur and no cardiac rub Vessels: normal peripheral pulses; no JVD Extremities: + pedal edema Gastrointestinal (Abdomen): Inspection/Auscultation: abdomen normal to inspection; + abnormal bowel sounds (diminished) Percussion/Palpation: + abdomen tender and abdomen soft; no guarding, no hepatosplenomegaly, not tympanic to percussion and no fluid wave Skin: no rashes, warm and dry normal turgor Psychiatric: Orientation: alert and oriented x 3 Results & Data Results & Data ([facility]) Vital Signs (Past 12 Hours) Vital Signs Temp Pulse Pulse Resp BP BP Pulse Ox 03/20/22 07:54 36.8 C 95 H 16 104/70 94 03/20/22 07:14 97 H 20 88 L 03/20/22 05:24 36.8 C 93 H 15 125/79 94 03/20/22 00:00 37 C 94 H 17 133/82 94 03/19/22 22:58 97 H 14 132/78 99 03/19/22 22:30 99 H 24 132/79 100 03/19/22 22:20 100 H 29 H 97 03/19/22 22:10 104 H 24 92 03/19/22 22:00 106 H 99 H 26 H 129/80 95 03/19/22 21:50 108 H 27 H 94 03/19/22 21:40 110 H 27 H 94 03/19/22 21:30 112 H 31 H 156/91 H 95 03/19/22 21:20 112 H 28 H 94 Resident Activity Tracking Resident Involvement: Resident Care Provided Care Provided: Adult Hospital Medicine
[2022-03-20] MEDS: CHOLESTYRAMINE LIGHT 4 GM PKT PO SCH (10:55)
[2022-03-20] MEDS ORDERED: LORazepam 2 MG/1 ML VIAL IV STA (11:01)
[2022-03-20] MEDS: THIAMINE HCL 200 MG in SODIUM CHLORIDE 0.9% 50 ML IV SCH (11:42)
--- NOTE | 2022-03-20 12:13 | Electrocardiogram Report ---
Test Reason : Blood Pressure : / mmHG Vent. Rate : 117 BPM Atrial Rate : 117 BPM P-R Int : 150 ms QRS Dur : 126 ms QT Int : 350 ms P-R-T Axes : 040 133 001 degrees QTc Int : 488 ms Sinus tachycardia Right bundle branch block Abnormal ECG When compared with ECG of 25-FEB-2022 07:31, No significant change was found Confirmed by Jose Luis Billings ([id number]) on 03/20/2022 12:13:29 PM Referred By: REFERRED SELF Confirmed By:Jose Luis Billings
[2022-03-20] MEDS: CEFEPIME 2,000 MG in SYRINGE 0 ML IV SCH ×2 (14:00→20:23)
[2022-03-20] MEDS: metroNIDAZOLE 500 MG/100 ML BAG IV SCH ×2 (14:00→20:23)
[2022-03-20] MEDS ORDERED: OPTIRAY 320 100ml IV ONE (14:51)
--- NOTE | 2022-03-20 15:04 | CT Scan Report ---
CT SCAN OF THE ABDOMEN AND PELVIS WITH IV CONTRAST CLINICAL HISTORY: General is abdominal pain. Distention. COMPARISON STUDY: Abdominal CT dated 10/11/2021 TECHNIQUE: Following the IV administration of 94 cc of Optiray 320, CT scan of the abdomen and pelvi s is performed from the lung bases to the proximal femora. Images are reviewed in the axial, sagittal , and coronal planes. IV contrast was administered without complication. Oral contrast was utilized. A dose lowering technique was utilized adhering to the principles of ALARA. The examination is degrad ed by large body habitus, and by streak artifact from the body wall abutting the CT gantry. CT DOSE: 1485.66 mGy.cm FINDINGS: Lung bases: The heart is normal in size and without pericardial effusion. Coronary artery calcificati ons are noted. There is lipomatous hypertrophy of the interatrial septum. The lung bases are clear. T here is a small hiatal hernia. Liver: The contrast-enhanced liver is enlarged, measuring 19.4 cm in craniocaudal length. The liver d emonstrates diffusely diminished attenuation consistent with hepatic steatosis. There is no intrahepa tic biliary ductal dilatation. The hepatic veins and portal veins are patent. Gallbladder: Surgically absent noting clips in the gallbladder fossa. Spleen: Normal in size and attenuation. Pancreas: Unremarkable. Adrenal glands: Unremarkable. Kidneys: The contrast enhanced kidneys are normal in size and without hydronephrosis. The kidneys enh ance symmetrically. Abdominal vasculature: The abdominal aorta is normal in course and caliber noting moderate atheroscle rotic calcification. Bowel: There is no bowel obstruction. Enteric contrast reaches the left colon. Mild colonic fecal ret ention is observed. The appendix is well-visualized and normal. Peritoneum: There is no intraperitoneal free air or abdominal ascites. Lymphadenopathy: None. Pelvic viscera: The bladder is normal as visualized. The uterus is surgically absent. No adnexal lesi on is seen. Surgical clips are noted in the ventral pelvic wall. Skeletal structures: The skeletal structures are osteopenic. There is mild lumbosacral spondylosis. D egenerative change is noted in the sacroiliac joints. No lytic or blastic lesions are seen. IMPRESSION: 1. There are no acute infectious or inflammatory findings in the abdomen or pelvis. 2. Hepatomegaly and hepatic steatosis. 3. Additional findings as above. ACT 112: Negative or not required by law. Electronically signed by: Amaury Meier M.D. 03/20/2022 3:03 PM
[2022-03-20] MEDS: QUEtiapine FUMARATE 200 MG TAB PO SCH (20:20)
[2022-03-20] MEDS: DIVALPROEX EXTENDED RELEASE 500 MG TAB PO SCH (20:20)
[2022-03-20] MEDS: rOPINIRole HCL 0.25 MG TABLET PO SCH (20:20)
[2022-03-21] MEDS: PANTOprazole 40 MG TAB PO SCH ×2 (03:13→09:13)
[2022-03-21] MEDS: FAMOTIDINE 20 MG TAB PO SCH (03:14)
[2022-03-21] MEDS: CEFEPIME 2,000 MG in SYRINGE 0 ML IV SCH (05:36)
[2022-03-21] MEDS: LEVOTHYROXINE SODIUM 50 MCG TABLET PO SCH (05:36)
[2022-03-21] MEDS: metroNIDAZOLE 500 MG/100 ML BAG IV SCH (05:36)
[2022-03-21] MEDS ORDERED: INSULIN ASPART PER UNIT SC SCH (06:00)
[2022-03-21] MEDS ORDERED: Nursing to Pharmacy Communication SCH (08:15)
[2022-03-21 08:28] LABS: Basophils # (auto) 0.01 K/uL (0-0.2); Basophils % (auto) 0.2 %; Eosinophils # (auto) 0.18 K/uL (0-0.5); Immature Granulocytes # (auto) 0.04 K/uL (0.00-0.02); Immature Granulocytes % (auto) 0.7 %; Lymphocytes # (auto) 2.37 K/uL (1.2-3.4); Lymphocytes % (auto) 39.8 %; Mean Corpuscular Hemoglobin 31.5 pg (25-34); Mean Corpuscular Hgb Conc 34.1 g/dL (32-36); Mean Corpuscular Volume 92.1 fL (80-100); Mean Platelet Volume 10.2 fL (7.4-10.4); Monocytes # (auto) 0.57 K/uL (0.11-0.59); Monocytes % (auto) 9.6 %; Neutrophils # (auto) 2.79 K/uL (1.4-6.5); Neutrophils % (auto) 46.7 %; Platelet Count 181 K/uL (130-400); RDW Coefficient of Variation 13.1 % (11.5-14.5); RDW Standard Deviation 43.6 fL (36.4-46.3); Red Blood Count 4.45 M/uL (4.2-5.4); White Blood Count 5.96 K/uL (4.8-10.8)
[2022-03-21 08:35] LABS: Albumin Globulin Ratio 1.2 (0.9-2); Albumin Level 3.2 gm/dl (3.4-5.0); BUN Creatinine Ratio 7.9 (10-20); Bilirubin,Total 0.5 mg/dl (0.2-1.0); Calcium 8.3 mg/dl (8.5-10.1); Creatinine Clr Calc Pharmacy 102.2 ml/min; Est GFR (African American) 109.9 ml/min; Est GFR (Non-African American) 94.8 ml/min; Globulin 2.7 gm/dl (2.5-4.0); Magnesium 1.8 mg/dl (1.7-2.4); Phosphorus 2.8 mg/dl (2.5-4.9); Potassium 3.9 mmol/L (3.5-5.1); Total Protein 5.9 gm/dl (6.0-8.3)
[2022-03-21] MEDS: ACETAMINOPHEN 325 MG TAB PO PRN (09:11)
[2022-03-21] MEDS: busPIRone 15 MG TAB PO SCH ×3 (09:13→21:54)
[2022-03-21] MEDS: FOLIC ACID 1 MG in SYRINGE 9.8 ML IV SCH (09:13)
[2022-03-21] MEDS: ESCITALOPRAM OXALATE 20 MG TAB PO SCH (09:14)
[2022-03-21] MEDS: PANCREAZE (LIPASE 4,200U) CAP PO SCH ×3 (09:14→17:53)
[2022-03-21] MEDS: LORATADINE 10 MG TAB PO SCH (09:14)
[2022-03-21] MEDS: RIVAROXABAN 20 MG TAB PO SCH (09:15)
[2022-03-21] MEDS: THIAMINE HCL 100 MG TAB PO SCH ×2 (09:15→21:54)
[2022-03-21] MEDS: CYANOCOBALAMIN (B-12) 500 MCG TABLET PO SCH ×2 (09:16→21:54)
[2022-03-21] MEDS: THIAMINE HCL 200 MG in SODIUM CHLORIDE 0.9% 50 ML IV SCH (09:20)
--- NOTE | 2022-03-21 10:17 | Hospitalist Progress Note ---
Date of Service March 21, 2022 Assessment & Plan (1) Generalized weakness: Plan: This is a 66-year-old female with a history of iron deficiency anemia, hyperparathyroidism, history of PE, IBS, anxiety, depression, schizoaffective disorder, GERD, failure to thrive who presented to [facility] for evaluation of weakness x 3 weeks in the setting of polydipsia, polyuria, and difficulty affording insulin, alongside n/v/d in the two days [employer]. Generalized Weakness: - 3+ weeks of ongoing weakness in the setting of polydipsia/polyuria over the same timeframe prior to arrival - Suspect metabolic in nature compounded by deconditioning and decreased oral intake - poorly controlled DM, dehydration, n/v, possibly compounded by metformin and medications - PT/OT consulted GI Upset: Nausea, Vomiting, Diarrhea (resolved) - Possibly gastroenterocolitis vs. sec to DM induced gastroparesis, metformin use; no focal findings on exam to suggest surgical issue - KUB demonstrating concerns for SBO - CT Abd/Pelvis demonstrating no acute infectious or inflammatory findings in the abdomen or pelvis. - stopped Cefepime and Flagyl - Zofran p.r.n. for nausea/vomiting Lactic Acidosis: - Lactate 3.1 on admission - Suspect partly hypovolemia-related from dehydration, also likely part B contribution from metformin, hyperglycemia - continue hydration efforts - blood cultures with no growth at 24 hours Hyperglycemia: - Known h/o T2DM that has been difficult to control, last A1c at 8.3% in 01/2022 - Patient reports significant issues w/ affording insulin; does regularly take metformin b.i.d. - On arrival to [facility], found to have BSG 290 and subjective reports of polydipsia/polyuria over past few weeks that weakness had been ongoing - discontinue metformin in the setting of recurrent abdominal complaints with metformin and likely contributions to lactic acidosis - for assistance with insulin financial assistance options, and potential alternative PO glycemic regimen - BSGs ACHS - Sliding scale insulin while inpatient [id number] Dyspnea: - Patient subjectively reporting +SOB over 2 days [employer]; feels better with O2 on, though saturating well, - VBG only with mild acidosis in setting of elevated lactate and normal pCO2 - CXR without acute abnormalities; procal negative; COVID negative - continue DuoNebs q6h PRN - Low-dose CT lung, and PFTs as outpatient History of PE: - Continue Xarelto Restless leg syndrome: - Continue ropinirole HS GERD: - Continue PPI Diet: full diet; carb consistent; advance as tolerated Code: FULL CODE PPX: Continue Xarelto (2) Lactic acidosis: (3) Hyperglycemia: (4) Dyspnea: (5) History of pulmonary embolism: (6) Anxiety and depression: Plan: Anxiety/depression/schizoaffective disorder - Continue home BuSpar, escitalopram, quetiapine, divalproex - Per chart review, Psych Consultation in Oct 2020, patient had shared that she had a mood disorder, "where you mood is either way up or way down" in addition to schizoaffective -- ?BPD - Hold Klonopin with w/u for ongoing weakness (7) Vomiting and diarrhea: (8) Restless leg: (9) GERD (gastroesophageal reflux disease): Admission and Anticipated Discharge Date Admission Date: March 20, 2022 Supervising Physician Co-Signing Physician Notes Resident Physician Supervision Note: I independently interviewed and examined the patient and verified the lopez history and physical, reviewed labs and image studies and agree with resident Dr. Trotter findings and care plan. Subjective Late last night had several loose bowel movements following which she had relief of the abdominal discomfort and relief of the nausea that she has had persistently over the last several days. Also has had relief of the increased thirst, increased urination, and hunger. Tolerated clear liquids early this morning and tolerated fulls during the day without complications. Review of Systems Review of Systems: All systems reviewed & are unremarkable except as noted in Subjective Physical Exam Constitutional: well developed, well nourished, comfortable and + overweight Eyes: PERRL, conjunctivae normal, anicteric sclerae Respiratory: normal respiratory effort; no labored breathing Auscultation: no crackles, no rales, no rhonchi and no wheezes Cardiovascular: Rate/Rhythm: regular rate and regular rhythm Heart Sounds: no gallop, no murmur and no cardiac rub Vessels: normal peripheral pulses; no JVD Extremities: + pedal edema Gastrointestinal (Abdomen): Inspection/Auscultation: normal bowel sounds; abdomen not distended Percussion/Palpation: abdomen soft; abdomen nontender and no guarding Skin: no rashes, warm and dry normal turgor Psychiatric: Orientation: alert and oriented x 3 Results & Data Results & Data ([facility]) Vital Signs (Past 12 Hours) Vital Signs Temp Pulse Resp BP Pulse Ox 03/21/22 08:05 36.6 C 98 H 16 116/74 98 03/20/22 22:55 36.6 C 100 H 18 120/60 92 Laboratory Results 03/21/22 03/21/22 03/21/22 Range/Units 12:23 08:28 06:37 WBC (4.8-10.8) K/uL RBC (4.2-5.4) M/uL Hgb (12.0-16.0) g/dL Hct (37-47) % MCV (80-100) fL MCH (25-34) pg MCHC (32-36) g/dL RDW Std Deviation (36.4-46.3) fL RDW Coeff of [place] (11.5-14.5) % Plt Count (130-400) K/uL MPV (7.4-10.4) fL Immature Gran % (Auto) % Neut % (Auto) % Lymph % (Auto) % [place] % (Auto) % Eos % (Auto) % Baso % (Auto) % Neut # (Auto) (1.4-6.5) K/uL Lymph # (Auto) (1.2-3.4) K/uL [place] # (Auto) (0.11-0.59) K/uL Eos # (Auto) (0-0.5) K/uL Baso # (Auto) (0-0.2) K/uL Immature Gran # (Auto) (0.00-0.02) K/uL Sodium (136-145) mmol/L Potassium (3.5-5.1) mmol/L Chloride (98-107) mmol/L Carbon Dioxide (21-32) mmol/L Anion Gap (3-11) BUN (6-23) mg/dl Creatinine (0.6-1.2) mg/dl Est Cr Clr Drug Dosing ml/min Est GFR ( Amer) ml/min Est GFR (Non-Af Amer) ml/min BUN/Creatinine Ratio (10-20) Glucose (70-99(Fasting)) mg/dl POC Glucose 146 H 194 H (70-99) mg/dl Calcium (8.5-10.1) mg/dl Phosphorus (2.5-4.9) mg/dl Magnesium (1.7-2.4) mg/dl Total Bilirubin (0.2-1.0) mg/dl AST (13-39) U/L ALT (7-52) U/L Alkaline Phosphatase (34-104) U/L Total Protein (6.0-8.3) gm/dl Albumin (3.4-5.0) gm/dl Globulin (2.5-4.0) gm/dl Albumin/Globulin Ratio (0.9-2) Procalcitonin 0.16 (0-0.5) ng/ml 03/21/22 03/21/22 03/21/22 Range/Units 06:37 06:37 06:04 WBC 5.96 (4.8-10.8) K/uL RBC 4.45 (4.2-5.4) M/uL Hgb 14.0 (12.0-16.0) g/dL Hct 41.0 (37-47) % MCV 92.1 (80-100) fL MCH 31.5 (25-34) pg MCHC 34.1 (32-36) g/dL RDW Std Deviation 43.6 (36.4-46.3) fL RDW Coeff of [place] 13.1 (11.5-14.5) % Plt Count 181 (130-400) K/uL MPV 10.2 (7.4-10.4) fL Immature Gran % (Auto) 0.7 % Neut % (Auto) 46.7 % Lymph % (Auto) 39.8 % [place] % (Auto) 9.6 % Eos % (Auto) 3.0 % Baso % (Auto) 0.2 % Neut # (Auto) 2.79 (1.4-6.5) K/uL Lymph # (Auto) 2.37 (1.2-3.4) K/uL [place] # (Auto) 0.57 (0.11-0.59) K/uL Eos # (Auto) 0.18 (0-0.5) K/uL Baso # (Auto) 0.01 (0-0.2) K/uL Immature Gran # (Auto) 0.04 H (0.00-0.02) K/uL Sodium 138 (136-145) mmol/L Potassium 3.9 (3.5-5.1) mmol/L Chloride 105 (98-107) mmol/L Carbon Dioxide 26 (21-32) mmol/L Anion Gap 7 (3-11) BUN 5 L (6-23) mg/dl Creatinine 0.63 (0.6-1.2) mg/dl Est Cr Clr Drug Dosing 102.2 ml/min Est GFR ( Amer) 109.9 ml/min Est GFR (Non-Af Amer) 94.8 ml/min BUN/Creatinine Ratio 7.9 L (10-20) Glucose 194 H (70-99(Fasting)) mg/dl POC Glucose 203 H (70-99) mg/dl Calcium 8.3 L (8.5-10.1) mg/dl Phosphorus 2.8 (2.5-4.9) mg/dl Magnesium 1.8 (1.7-2.4) mg/dl Total Bilirubin 0.5 (0.2-1.0) mg/dl AST 18 (13-39) U/L ALT 9 (7-52) U/L Alkaline Phosphatase 59 (34-104) U/L Total Protein 5.9 L (6.0-8.3) gm/dl Albumin 3.2 L (3.4-5.0) gm/dl Globulin 2.7 (2.5-4.0) gm/dl Albumin/Globulin Ratio 1.2 (0.9-2) Procalcitonin (0-0.5) ng/ml 03/20/22 03/20/22 Range/Units 20:47 18:13 WBC (4.8-10.8) K/uL RBC (4.2-5.4) M/uL Hgb (12.0-16.0) g/dL Hct (37-47) % MCV (80-100) fL MCH (25-34) pg MCHC (32-36) g/dL RDW Std Deviation (36.4-46.3) fL RDW Coeff of [place] (11.5-14.5) % Plt Count (130-400) K/uL MPV (7.4-10.4) fL Immature Gran % (Auto) % Neut % (Auto) % Lymph % (Auto) % [place] % (Auto) % Eos % (Auto) % Baso % (Auto) % Neut # (Auto) (1.4-6.5) K/uL Lymph # (Auto) (1.2-3.4) K/uL [place] # (Auto) (0.11-0.59) K/uL Eos # (Auto) (0-0.5) K/uL Baso # (Auto) (0-0.2) K/uL Immature Gran # (Auto) (0.00-0.02) K/uL Sodium (136-145) mmol/L Potassium (3.5-5.1) mmol/L Chloride (98-107) mmol/L Carbon Dioxide (21-32) mmol/L Anion Gap (3-11) BUN (6-23) mg/dl Creatinine (0.6-1.2) mg/dl Est Cr Clr Drug Dosing ml/min Est GFR ( Amer) ml/min Est GFR (Non-Af Amer) ml/min BUN/Creatinine Ratio (10-20) Glucose (70-99(Fasting)) mg/dl POC Glucose 174 H 149 H (70-99) mg/dl Calcium (8.5-10.1) mg/dl Phosphorus (2.5-4.9) mg/dl Magnesium (1.7-2.4) mg/dl Total Bilirubin (0.2-1.0) mg/dl AST (13-39) U/L ALT (7-52) U/L Alkaline Phosphatase (34-104) U/L Total Protein (6.0-8.3) gm/dl Albumin (3.4-5.0) gm/dl Globulin (2.5-4.0) gm/dl Albumin/Globulin Ratio (0.9-2) Procalcitonin (0-0.5) ng/ml Medications Administered Current Inpatient Medications Acetaminophen (Acetaminophen 325 Mg Tab) 650 mg PO Q4H PRN PRN Reason: pain/fever Stop: 04/18/22 21:59 Last Admin: 03/21/22 09:11 Dose: 650 mg Documented by: Lipase/Protease/Amylase (Pancreaze (Lipase 4,200u) Cap) 3 cap PO TIDM MARY Stop: 04/19/22 07:59 Last Admin: 03/21/22 13:34 Dose: 3 cap Documented by: Buspirone HCl (Buspirone 15 Mg Tab) 15 mg PO TID [facility] Stop: 04/19/22 08:59 Last Admin: 03/21/22 13:34 Dose: 15 mg Documented by: Cholestyramine Resin (Cholestyramine Light 4 Gm Pkt) 4 gm PO Q24H MARY Stop: 04/19/22 09:59 Last Admin: 03/21/22 10:34 Dose: 4 gm Documented by: Cyanocobalamin (Cyanocobalamin (B-12) 500 Mcg Tablet) 1,000 mcg PO BID MARY Stop: 04/19/22 08:59 Last Admin: 03/21/22 09:16 Dose: 1,000 mcg Documented by: Dextrose (Dextrose 50% 50 Ml Syringe) 25 - 50 ml IV UD PRN; Protocol PRN Reason: Hypoglycemia Protocol Stop: 04/19/22 00:08 Divalproex Sodium (Divalproex Extended Release 500 Mg Tab) 1,500 mg PO HS [facility] Stop: 04/19/22 20:59 Last Admin: 03/20/22 20:20 Dose: 1,500 mg Documented by: Ergocalciferol (Ergocalciferol 50,000 Units 1250 Mcg Cap) 50,000 units PO Mo [facility] Stop: 04/22/22 08:59 Escitalopram Oxalate (Escitalopram Oxalate 20 Mg Tab) 20 mg PO QAM [facility] Stop: 04/19/22 08:59 Last Admin: 03/21/22 09:14 Dose: 20 mg Documented by: Famotidine (Famotidine 20 Mg Tab) 20 mg PO QAM [facility] Stop: 04/20/22 02:59 Last Admin: 03/21/22 03:14 Dose: 20 mg Documented by: Ferrous Sulfate (Ferrous Sulfate 325 Mg Tab) 325 mg PO Q2D [facility] Stop: 04/21/22 08:59 Glucagon (Glucagon For Inj 1 Mg Vial) 1 mg SQ UD PRN; Protocol PRN Reason: Hypoglycemia Protocol Stop: 04/19/22 00:08 Glucose (Glucose 10 Tabs/Tube) 4 - 8 tabs PO UD PRN; Protocol PRN Reason: Hypoglycemia Protocol Stop: 04/19/22 00:08 Glucose (Glucose 40% Gel 15 Gm Tube) 15 - 30 gm PO UD PRN; Protocol PRN Reason: Hypoglycemia Protocol Stop: 04/19/22 00:08 Thiamine HCl 200 mg/ Sodium (Chloride) 52 mls @ 208 mls/hr IV [facility] Stop: 04/19/22 08:59 Last Infusion: 03/21/22 10:34 Dose: Infused Documented by: Folic Acid 1 mg/ Syringe 10 mls @ 5 mls/min IV [facility] Stop: 04/19/22 08:59 Last Admin: 03/21/22 09:13 Dose: 5 mls/min Documented by: Insulin Aspart (Insulin Aspart Per Unit) 0 units [facility] Stop: 04/20/22 05:59 Last Admin: 03/21/22 13:34 Dose: 5 units Documented by: Levothyroxine Sodium (Levothyroxine Sodium 50 Mcg Tablet) [facility] Stop: 04/19/22 06:29 Last Admin: 03/21/22 05:36 Dose: 50 mcg Documented by: Loratadine (Loratadine 10 Mg Tab) 10 mg PO [facility] Stop: 04/19/22 08:59 Last Admin: 03/21/22 09:14 Dose: 10 mg Documented by: Miscellaneous (Carbohydrates For Hypoglycemia ) 15 - 30 gm PO UD PRN PRN Reason: Hypoglycemia Protocol Stop: 04/19/22 00:08 Ondansetron HCl (Ondansetron 4 Mg Od Tab) 4 mg PO Q8 PRN PRN Reason: Nausea And Vomiting Stop: 04/19/22 01:31 Last Admin: 03/20/22 09:13 Dose: 4 mg Documented by: Pantoprazole Sodium (Pantoprazole 40 Mg Tab) 40 mg PO [facility] Stop: 04/20/22 02:59 Last Admin: 03/21/22 09:13 Dose: 40 mg Documented by: Quetiapine Fumarate (Quetiapine Fumarate 200 Mg Tab) 400 mg PO [facility] Stop: 04/19/22 20:59 Last Admin: 03/20/22 20:20 Dose: 400 mg Documented by: Rivaroxaban (Rivaroxaban 20 Mg Tab) 20 mg PO [facility] Stop: 04/19/22 08:59 Last Admin: 03/21/22 09:15 Dose: 20 mg Documented by: Ropinirole HCl (Ropinirole Hcl 0.25 Mg Tablet) 0.5 mg PO [facility] Stop: 04/19/22 20:59 Last Admin: 03/20/22 20:20 Dose: 0.5 mg Documented by: Thiamine HCl (Thiamine Hcl 100 Mg Tab) 100 mg PO BID MARY Stop: 04/19/22 08:59 Last Admin: 03/21/22 09:15 Dose: 100 mg Documented by: Resident Activity Tracking Resident Involvement: Resident Care Provided Care Provided: Adult Hospital Medicine
[2022-03-21] MEDS: CHOLESTYRAMINE LIGHT 4 GM PKT PO SCH (10:34)
[2022-03-21] MEDS: INSULIN ASPART PER UNIT SC SCH ×3 (13:34→21:55)
[2022-03-21] MEDS: DIVALPROEX EXTENDED RELEASE 500 MG TAB PO SCH (21:54)
[2022-03-21] MEDS: QUEtiapine FUMARATE 200 MG TAB PO SCH (21:54)
[2022-03-21] MEDS: rOPINIRole HCL 0.25 MG TABLET PO SCH (21:54)
[2022-03-22] MEDS: ACETAMINOPHEN 325 MG TAB PO PRN ×2 (01:01→13:22)
[2022-03-22] MEDS: LEVOTHYROXINE SODIUM 50 MCG TABLET PO SCH (05:22)
[2022-03-22] MEDS ORDERED: FERROUS SULFATE 325 MG TAB PO SCH (09:00)
[2022-03-22] MEDS: INSULIN ASPART PER UNIT SC SCH ×3 (09:09→17:02)
[2022-03-22] MEDS: LORATADINE 10 MG TAB PO SCH (09:17)
[2022-03-22] MEDS: busPIRone 15 MG TAB PO SCH ×2 (09:18→13:20)
[2022-03-22] MEDS: CYANOCOBALAMIN (B-12) 500 MCG TABLET PO SCH (09:18)
[2022-03-22] MEDS: PANTOprazole 40 MG TAB PO SCH (09:18)
[2022-03-22] MEDS: PANCREAZE (LIPASE 4,200U) CAP PO SCH ×3 (09:18→17:05)
[2022-03-22] MEDS: FAMOTIDINE 20 MG TAB PO SCH (09:19)
[2022-03-22] MEDS: FOLIC ACID 1 MG in SYRINGE 9.8 ML IV SCH (09:19)
[2022-03-22] MEDS: RIVAROXABAN 20 MG TAB PO SCH (09:19)
[2022-03-22] MEDS: THIAMINE HCL 100 MG TAB PO SCH (09:19)
[2022-03-22] MEDS: ESCITALOPRAM OXALATE 20 MG TAB PO SCH (09:19)
[2022-03-22] MEDS: THIAMINE HCL 200 MG in SODIUM CHLORIDE 0.9% 50 ML IV SCH (09:20)
[2022-03-22] MEDS: CHOLESTYRAMINE LIGHT 4 GM PKT PO SCH (10:57)
--- NOTE | 2022-03-22 11:40 | Discharge Summary ---
Date of Service March 22, 2022 Admission HPI Per Admitting Provider This is a 66-year-old female with a history of iron deficiency anemia, hyperparathyroidism, history of PE, IBS, anxiety, depression, schizoaffective disorder, GERD, failure to thrive who presented to [facility] for evaluation of weakness x 3 weeks. She describes this weakness as significant fatigue. She denies any issues moving her arms or her legs. She does endorse numbness "all over my body." She denies any falls at home within the last several weeks. She said sometimes she feels lightheaded, but it comes and goes. She said that her p.o. intake has been quite poor lately, but she has been very thirsty and voiding a lot. She denies dysuria or malodorous urine. Denies any fevers. Does say that she developed nausea and vomiting, alongside loose stools, on day of admission. She said that she has had some chills. She denies any chest pain, palpitations. She endorses chronic shortness of breath, which seems worse over the last day -- no increase in coughing. She reports taking all of her medications as prescribed, other than insulinshe informs me that she has had a very difficult time affording this. She lives at home with her sister. She denies any use of alcohol or recrea tional drugs. She does smoke approximately 2-1/2 packs/day for "the longest time." Medications reviewed, includes BuSpar 15 mg 3 times daily, cholestyramine, clonazepam 1 mg 3 times daily as needed, Creon 1 cap 3 times daily, vitamin B12, Depakote 1500 mg nightly, Lexapro 20 mg daily, famotidine 20 mg daily, ferrous sulfate daily, gabapentin, levothyroxine 50 mcg daily, metformin 500 mg twice da naseem, Zofran 4 mg as needed, Protonix 40 mg daily, Seroquel 400 mg nightly, ropinirole 0.5 mg nightly, vitamin B1, Xarelto 20 mg daily. In the ER, patient presented with blood pressure 130/80, heart rate 115, respiratory rate 25, saturating 90% on room air. She is afebrile. Hematology reveals hemoglobin 16.4, no white count. VBG reveals mild acidosis 7.34 with PCO2 46, bicarb 24. Chemistries revealing for hypomagnesemia 1.4, blood sugar 290. LFTs, procalcitonin, TSH otherwise normal. COVID-negative. Lactate elevated at 2.5. Chest x-ray without acute process. Blood cultures pending. ECG revealing of sinus tachycardia with right bundle branch block, unchanged compared to Consuelo studies. She was given normal saline and 40 mg of methylprednisone. Principal Diagnosis hyperglycemia Discharge Exam Constitutional well developed, well nourished, comfortable and + overweight Eyes PERRL, conjunctivae normal, anicteric sclerae Respiratory normal respiratory effort; no labored breathing Auscultation: no crackles, no rales, no rhonchi and no wheezes Cardiovascular Rate/Rhythm: regular rate and regular rhythm Heart Sounds: no gallop, no murmur and no cardiac rub Vessels: normal peripheral pulses; no JVD Extremities: + pedal edema Gastrointestinal (Abdomen) Inspection/Auscultation: abdomen normal to inspection and normal bowel sounds; abdomen not distended Percussion/Palpation: abdomen soft; abdomen nontender, no guarding, no hepatosplenomegaly, not tympanic to percussion and no fluid wave Skin no rashes, warm and dry normal turgor Psychiatric Orientation: alert and oriented x 3 Discharge Data Allergies Allergy/AdvReac Type Severity Reaction Status Date / Time egg AdvReac Severe Vomiting Verified 03/19/22 22:45 Penicillins AdvReac Severe Vomiting Verified 03/19/22 22:45 Consultations 03/19/22 21:50 ED Decision to Admit Stat Ordered Studies 03/20/22 CT abd pelvis oral and IV con Urgent Diabetes Follow up Diabetes Follow-up Needed for HgbA1c >9% Hospital Course (1) Generalized weakness: Tierra Gil is a 66-year-old female with a history of iron deficiency anemia, hyperparathyroidism, history of PE, IBS, anxiety, depression, schizoaffective disorder, GERD, failure to thrive who presented to [facility] for evaluation of weakness x 3 weeks in the setting of polydipsia, polyuria, and difficulty affording insulin, alongside n/v/d in the two days [employer]. Generalized Weakness: - 3+ weeks of ongoing weakness in the setting of polydipsia/polyuria over the same timeframe prior to arrival - Suspect metabolic in nature compounded by deconditioning and decreased oral intake - poorly controlled DM, dehydration, n/v, possibly compounded by metformin a nd medications - improved following improved oral intake - PT/OT consulted GI Upset: Nausea, Vomiting, Diarrhea (resolved) - likely secondary to DM induced gastroparesis vs metformin vs acute gastro enteritis - KUB demonstrated concerns for SBO - CT Abd/Pelvis demonstrating no acute infectious or inflammatory findings in the abdomen or pelvis Lactic Acidosis: - Lactate 3.1 on admission - Suspect partly hypovolemia-related from dehydration, also likely part B contribution from metformin, hyperglycemia - blood cultures with no growth at 48 hours Type 2 DM: - Known h/o T2DM that has been difficult to control, last A1c at 8.3% in 01/2022 - Patient reports significant issues w/ affording insulin; regularly takes metformin b.i.d. 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; feels better with O2 on, though saturating well, - VBG only with mild acidosis in setting of elevated lactate and normal pCO2 - CXR without acute abnormalities; procal negative; COVID negative - continue DuoNebs q6h PRN - Low-dose CT lung, and PFTs as outpatient Anxiety/depression/schizoaffective disorder - Continue home BuSpar, escitalopram, quetiapine, divalproex History of PE: - Continue Xarelto Restless leg syndrome: - Continue ropinirole HS GERD: - Continue PPI (2) Lactic acidosis: (3) Hyperglycemia: (4) Dyspnea: (5) History of pulmonary embolism: (6) Anxiety and depression: (7) Vomiting and diarrhea: (8) Restless leg: (9) GERD (gastroesophageal reflux disease): Total Time Total Time Spent Total Time Spent (In Minutes): 30 Discharge Plan Discharge Items Patient Disposition: Home - Self-Care Reason For Visit: WEAKNESS Discharge Diagnosis: abdominal pain Activity: Per Instructions section Non-emergency contact: Primary Care Provider Call non-emergency contact if: you have any medication questions, your symptoms worsen and your pain is worsening Follow-up/Referrals: Dylan Fuentes PA-C [Primary Care Provider] - Diet: Carb Consistent or DM2 Addtl Attending Provider Instructions: You were seen and admitted for concerns of abdominal discomfort, nausea, and vomiting over the last three weeks in the setting of resumed Metformin use after your last discharge. During this admission, it was determined that portions of your symptoms were likely related to your high blood sugars that have been present for some time, and this was complicated by your metformin which can increase the intensity of those symptoms in some. After starting you on some IV fluids and allowing for you to slowly return to normal food consumption you had improvement in your symptoms. As such we feel it is appropriate to discharge you from the hospital at this time with changes to your medication regimen. It is understandable, that the cost of Insulin was too high to afford reasonably, and as such you have not used/purchased it since your last hospital admission. We were able to get control of your blood sugars in the hospital with Insulin, but now that we are discharging you home we are changing your regimen to: Glipizide 5mg daily, and discontinuing the Metformin. You should continue to work with your primary care doctor to monitor you blood sugars and monitor your potential continued need for insulin treatments in the future. Pending Studies at Discharge: No Stand-Alone Forms: My [facility], Smoking Cessation Medications and DC Order Prescriptions: New glipizide 5 mg Tablet 5 mg PO DAILY 30 Days Qty: 30 RF: 0 Continued pantoprazole [Protonix] 40 mg tablet,delayed release (DR/EC) 40 mg PO QAM RF: 0 gabapentin [Neurontin] 100 mg capsule See Rx Instructions .ROUTE .COMPLEX RF: 0 buspirone 15 mg tablet 15 mg PO TID RF: 0 Creon 12,000-38,000 -60,000 unit capsule,delayed release(DR/EC) 1 cap PO TID RF: 0 Xarelto 20 mg tablet 20 mg PO QAM RF: 0 ropinirole 0.5 mg tablet 0.5 mg PO HS RF: 0 escitalopram oxalate [Lexapro] 20 mg tablet 20 mg PO QAM RF: 0 levothyroxine 50 mcg tablet 50 mcg PO QAM RF: 0 famotidine 20 mg tablet 20 mg PO DAILY RF: 0 clonazepam 1 mg tablet 1 mg PO TID RF: 0 cholestyramine (with sugar) [Questran] 4 gram powder in packet 1 ea PO DAILY RF: 0 ferrous sulfate [Iron (ferrous sulfate)] 325 mg (65 mg iron) tablet 325 mg PO Q OTHER DAY RF: 0 divalproex [Depakote ER] 500 mg tablet extended release 24 hr 1,500 mg PO HS RF: 0 quetiapine [Seroquel] 400 mg tablet 400 mg PO HS RF: 0 cyanocobalamin (vitamin B-12) [Vitamin B-12] 1,000 mcg tablet 1,000 mcg PO BID RF: 0 loratadine [Allergy Relief (loratadine)] 10 mg tablet 10 mg PO QAM RF: 0 thiamine HCl (vitamin B1) [Vitamin B-1] 100 mg tablet 100 mg PO BID RF: 0 ondansetron HCl 4 mg tablet 4 mg PO Q8 PRN (Reason: Nausea And Vomiting) RF: 0 ergocalciferol (vitamin D2) 1,250 mcg (50,000 unit) capsule 1,250 mcg PO WK RF: 0 Discontinued metformin 500 mg tablet 500 mg PO BID RF: 0 Discharge Orders: Discharge Order (Routine); Ordered 03/22/22 Ordered By: Emanuel Trotter Admission Data Admit Date/Time: 03/20/22 13:02 Attending Provider: Eliane Rodgers Admit Provider: Phong Marie Primary Care Provider: Dylan Fuentes Other Providers: Alysa Wagner Other Interventions: Discharge Summary Assessment (RN) Last Done: 03/22/22 13:42 Supervising Physician Co-Signing Physician Notes Resident Physician Supervision Note: I independently interviewed and examined the patient and verified the lopez history and physical, reviewed labs and image studies and agree with resident Dr. Trotter findings and care plan. Resident Activity Tracking Resident Involvement: Resident Care Provided Care Provided: Adult Hospital Medicine
[2022-03-22] MEDS ORDERED: glipiZIDE 5 MG TAB PO SCH (17:00)
[2022-03-23] MEDS ORDERED: ERGOCALCIFEROL 50,000 UNITS 1250 MCG CAP PO SCH (09:00)
== END 2022-03-22 20:03 | disposition home or self-care (01) | DRG 639 ==
LOC: ED 19:46 → 3N 19:46 → SUATTDRO 22:01 → 3N 22:58

== ENCOUNTER 2022-04-05 16:46 | Observation (INO) ==
--- NOTE | 2022-04-05 17:16 | Emergency Department Note ---
Impression & Plan Acidosis, lactic, Diarrhea, Acute dehydration, Hypomagnesemia, Tobacco use ED Provider Note NAME: SID JAVIER AGE: 66 SEX: F : 1955 ARRIVES VIA: Ambulance INFORMANT: Patient, ED PROVIDER(S): Erwin Rodriguez MD Chief Complaint: Nausea, diarrhea HPI: Patient states that she began having nausea and diarrhea this morning and thinks that she has had approximately 7 loose bowel movements without any blood. The patient does complain of some mild abdominal cramping associated nausea but no vomiting. Patient denies any changes in medications, stream or well water use or recent antibiotics. Patient denies any falls or trauma. The patient is a smoker. No change in nicotine. Patient denies any shortness of breath or chest pains. The patient does feel weak and fatigued. Patient denies any known sick contacts or recent travel. The patient does live with her daughter. ROS: See HPI for pertinent positives and negatives. A total of 10 systems were reviewed and otherwise negative. Past medical history: See below Surgical history: See below Social history: See below Physical Exam: GENERAL: Mildly ill in appearance, wearing a mask. Fatigued. EYE EXAM: Normal conjunctiva. PERRL, no anisocoria and EOM's grossly intact w/o pain. NECK: Supple, no nuchal rigidity, no adenopathy, non-tender. No signs of meningismus. LUNGS: Clear to auscultation. Normal chest wall mechanics. HEART: Tachycardic and regular, no MRG. ABDOMEN: Abdomen soft, non-tender, normo-active bowel sounds, no masses, no rebound or guarding. BACK: No CVA TTP. SKIN: No rashes and no bruising. UPPER EXTREMITIES: Upper extremities are grossly normal. LOWER EXTREMITIES: Grossly normal, no edema. NEURO EXAM: A&O x3, cranial nerves II-XII grossly intact, normal speech, moves all 4 extremities on command w/o issue. Differential diagnoses: Infection, dehydration, metabolic abnormality, hypo/hyperglycemia, electrolyte disturbance, anemia, hypoxia, cardiac sources, intracerebral event, toxicologic, neurologic, as well as other pathologies. Course: Patient was seen and evaluated the bedside. Full history physical exam was performed. EKG interpreted by me Sinus tach, rate of 110, wide QRS, right axis deviation, right bundle branch block pattern. Right bundle branch block and right axis deviation old from al mparison EKG March 2022. Imaging Studies: See Below Cardiac monitoring: An order was placed for continuous cardiac monitoring. The monitor shows a rate of 105 with tachycardic and regular rhythm. MDM: Patient was seen due to concern for nausea and diarrhea. Patient is a soft abdomen. Clinically appears to be dry. Blood work was obtained along with a stool study, IV fluids and Zofran. Patient has a white count of 12 with an elevated hemoglobin. The patient certainly may be dehydrated. The patient does have a lactate greater than 3. The patient was ordered additional IV fluids and mag given her lower magnesium. Given the patient's mildly ill appearance and elevated lactate with dehydration I did speak with the on-call hospitalist Dr. Wagner and the patient was admitted to the medicine service. Past Med/Surg History Medical History Acute hyperglycemia Acute hyponatremia Anemia Anxiety and depression Arthritis Aspiration pneumonia Bacteriuria Diabetes GERD (gastroesophageal reflux disease) History of pulmonary embolism Hyperparathyroidism Hypomagnesemia Hypoxia Iron deficiency anemia Irritable bowel syndrome Schizoaffective disorder Smoking Urine culture positive Vomiting and diarrhea Weakness Surgical History History of section x2 Social History Smoking Status: Current every day smoker Tobacco Type: Cigarettes Cigarettes Per Day: 2-3 packs; Second Hand Exposure: No; Hx Alcohol Use: No Hx Substance Use: No Preferred Language: Latvian Communication Ability: Effective Therapy Teacher Required: No Beliefs That Will Affect Care: None marital status: Current Living Situation: Family Current Living Situation Comment: Lives with Daughter How many Children do You have: 2 Feels Safe at Home: Yes Assistive Devices: Walker and Wheelchair Allergies Allergies Allergy/AdvReac Type Severity Reaction Status Date / Time egg AdvReac Severe Vomiting Verified 03/19/22 22:45 Penicillins AdvReac Severe Vomiting Verified 03/19/22 22:45 Home Meds Home Medications Medication Instructions Recorded Confirmed buspirone 15 mg tablet 15 mg PO TID 10/25/20 04/05/22 gabapentin 100 mg capsule See Rx Instructions .ROUTE .COMPLEX 10/25/20 04/05/22 (Neurontin) etwysd-[id number] 1 cap PO TID 10/25/20 04/05/22 12,000-38,000-60,000 unit capsule,delayed rel (Creon) pantoprazole 40 mg tablet,delayed 40 mg PO QAM 10/25/20 04/05/22 release (Protonix) rivaroxaban 20 mg tablet (Xarelto) 20 mg PO QAM 10/25/20 04/05/22 escitalopram oxalate 20 mg tablet 20 mg PO QAM 03/18/21 04/05/22 (Lexapro) ropinirole 0.5 mg tablet 0.5 mg PO HS 03/18/21 04/05/22 cholestyramine (with sugar) 4 gram 1 ea PO DAILY 06/03/21 04/05/22 powder for susp in a packet (Questran) divalproex 500 mg tablet,extended 1,500 mg PO HS 06/03/21 04/05/22 release 24 hr (Depakote ER) ferrous sulfate 325 mg (65 mg 325 mg PO Q OTHER DAY 06/03/21 04/05/22 iron) tablet (Iron (ferrous sulfate)) quetiapine 400 mg tablet (Seroquel) 400 mg PO HS 06/03/21 04/05/22 cyanocobalamin (vitamin B-12) 1,000 mcg PO BID 08/05/21 04/05/22 1,000 mcg tablet (Vitamin B-12) loratadine 10 mg tablet (Allergy 10 mg PO QAM 08/05/21 04/05/22 Relief (loratadine)) thiamine HCl (vitamin B1) 100 mg 100 mg PO BID 10/11/21 04/05/22 tablet (Vitamin B-1) levothyroxine 50 mcg tablet 50 mcg PO QAM 01/21/22 04/05/22 ergocalciferol (vitamin D2) 1,250 1,250 mcg PO WK 02/02/22 04/05/22 mcg (50,000 unit) capsule ondansetron HCl 4 mg tablet 4 mg PO Q8 PRN 02/02/22 04/05/22 clonazepam 1 mg tablet 1 mg PO TID 02/25/22 04/05/22 famotidine 20 mg tablet 20 mg PO DAILY 02/25/22 04/05/22 metformin 500 mg tablet 500 mg PO DAILY 04/05/22 04/05/22 Previous Rx's Medication Instructions Recorded glipizide 5 mg tablet 5 mg PO DAILY 30 Days #30 tab 03/22/22 Results & Data (ED) Vital Signs Vital Signs - 24 hr 04/05/22 16:38 04/05/22 17:27 04/05/22 18:30 Temperature 37.0 C Temperature Source Oral Pulse Rate 113 H 103 H Pulse Rate [Finger] 112 H 103 H Respiratory Rate 16 18 18 Blood Pressure 124/73 Blood Pressure [Left Arm] 124/73 84/54 L Blood Pressure Mean 90 Blood Pressure Mean [Left Arm] 90 64 Pulse Oximetry 90 91 91 Oxygen Delivery Method Room Air Sepsis Recent Fever Within 48 Hours No Sepsis New/Unexplained Change in Mental Status No Sepsis Action Taken by Nursing No Action Required 04/05/22 19:58 04/05/22 21:30 Temperature Temperature Source Pulse Rate 90 Pulse Rate [Finger] 95 H Respiratory Rate 20 20 Blood Pressure 125/65 Blood Pressure [Left Arm] 124/92 Blood Pressure Mean Blood Pressure Mean [Left Arm] 102 Pulse Oximetry 92 92 Oxygen Delivery Method Room Air Room Air Sepsis Recent Fever Within 48 Hours Sepsis New/Unexplained Change in Mental Status Sepsis Action Taken by [facility] Medications Current Medication List: was personally reviewed by me Laboratory Data Attestation: I reviewed the patient's lab results. Result diagrams: 04/05/22 17:34 04/05/22 17:34 Lab Results 04/05/22 04/05/22 04/05/22 Range/Units 17:30 17:34 17:34 WBC 12.21 H (4.8-10.8) K/uL RBC 5.46 H (4.2-5.4) M/uL Hgb 17.3 H (12.0-16.0) g/dL Hct 49.9 H (37-47) % MCV 91.4 (80-100) fL MCH 31.7 (25-34) pg MCHC 34.7 (32-36) g/dL RDW Std Deviation 42.4 (36.4-46.3) fL RDW Coeff of [place] 12.8 (11.5-14.5) % Plt Count 232 (130-400) K/uL MPV 10.1 (7.4-10.4) fL Immature Gran % (Auto) 0.4 % Neut % (Auto) 79.3 % Lymph % (Auto) 13.0 % Barron % (Auto) 6.5 % Eos % (Auto) 0.7 % Baso % (Auto) 0.1 % Neut # (Auto) 9.68 H (1.4-6.5) K/uL Lymph # (Auto) 1.59 (1.2-3.4) K/uL Barron # (Auto) 0.79 H (0.11-0.59) K/uL Eos # (Auto) 0.09 (0-0.5) K/uL Baso # (Auto) 0.01 (0-0.2) K/uL Immature Gran # (Auto) 0.05 H (0.00-0.02) K/uL Sodium 137 (136-145) mmol/L Potassium 4.5 (3.5-5.1) mmol/L Chloride 98 (98-107) mmol/L Carbon Dioxide 26 (21-32) mmol/L Anion Gap 13 H (3-11) BUN 4 L (6-23) mg/dl Creatinine 0.83 (0.6-1.2) mg/dl Est Cr Clr Drug Dosing 78.4 ml/min Est GFR ( Amer) 86.4 ml/min Est GFR (Non-Af Amer) 74.5 ml/min BUN/Creatinine Ratio 4.8 L (10-20) Glucose 187 H (70-99(Fasting)) mg/dl Lactate (0.4-2.0) mmol/L Calcium 10.3 H (8.5-10.1) mg/dl Magnesium 1.5 L (1.7-2.4) mg/dl Total Bilirubin 0.5 (0.2-1.0) mg/dl AST 11 L (13-39) U/L ALT 7 (7-52) U/L Alkaline Phosphatase 72 (34-104) U/L Total Creatine Kinase 17 L (26-192) U/L Total Protein 7.8 (6.0-8.3) gm/dl Albumin 4.1 (3.4-5.0) gm/dl Globulin 3.7 (2.5-4.0) gm/dl Albumin/Globulin Ratio 1.1 (0.9-2) TSH (0.300-4.500) uIu/ml SARS-CoV-2, RNA, NAAT NEGATIVE (NEGATIVE) 04/05/22 04/05/22 04/05/22 Range/Units 17:34 17:34 19:36 WBC (4.8-10.8) K/uL RBC (4.2-5.4) M/uL Hgb (12.0-16.0) g/dL Hct (37-47) % MCV (80-100) fL MCH (25-34) pg MCHC (32-36) g/dL RDW Std Deviation (36.4-46.3) fL RDW Coeff of Vernon (11.5-14.5) % Plt Count (130-400) K/uL MPV (7.4-10.4) fL Immature Gran % (Auto) % Neut % (Auto) % Lymph % (Auto) % Barron % (Auto) % Eos % (Auto) % Baso % (Auto) % Neut # (Auto) (1.4-6.5) K/uL Lymph # (Auto) (1.2-3.4) K/uL Barron # (Auto) (0.11-0.59) K/uL Eos # (Auto) (0-0.5) K/uL Baso # (Auto) (0-0.2) K/uL Immature Gran # (Auto) (0.00-0.02) K/uL Sodium (136-145) mmol/L Potassium (3.5-5.1) mmol/L Chloride (98-107) mmol/L Carbon Dioxide (21-32) mmol/L Anion Gap (3-11) BUN (6-23) mg/dl Creatinine (0.6-1.2) mg/dl Est Cr Clr Drug Dosing ml/min Est GFR ( Amer) ml/min Est GFR (Non-Af Amer) ml/min BUN/Creatinine Ratio (10-20) Glucose (70-99(Fasting)) mg/dl Lactate 3.7 H* 2.9 H* (0.4-2.0) mmol/L Calcium (8.5-10.1) mg/dl Magnesium (1.7-2.4) mg/dl Total Bilirubin (0.2-1.0) mg/dl AST (13-39) U/L ALT (7-52) U/L Alkaline Phosphatase (34-104) U/L Total Creatine Kinase (26-192) U/L Total Protein (6.0-8.3) gm/dl Albumin (3.4-5.0) gm/dl Globulin (2.5-4.0) gm/dl Albumin/Globulin Ratio (0.9-2) TSH 3.482 (0.300-4.500) uIu/ml SARS-CoV-2, RNA, NAAT (NEGATIVE) Administered Medications Discontinued Medications Sodium Chloride (Nss 1000ml) 1,000 mls @ 999 mls/hr IV .Q1H1M MARY Stop: 04/05/22 18:30 Last Infusion: 04/05/22 19:59 Dose: 0 mls/hr Documented by: [id number] Admin: 04/05/22 18:19 Dose: 999 mls/hr Documented by: [id number] Sodium Chloride (Nss 1000ml) 1,000 mls @ 999 mls/hr IV .Q1H1M ONE Stop: 04/05/22 20:23 Last Infusion: 04/05/22 21:27 Dose: 0 mls/hr Documented by: [id number] Admin: 04/05/22 19:48 Dose: 999 mls/hr Documented by: [id number] Magnesium Sulfate/Dextrose (Magnesium Sulfate / D5w) 1 gm in 100 mls @ 100 mls/hr IV NOW STA Stop: 04/05/22 20:22 Last Infusion: 04/05/22 21:27 Dose: 0 mls/hr Documented by: [id number] Admin: 04/05/22 19:49 Dose: 100 mls/hr Documented by: [id number] Ondansetron HCl (Ondansetron Inj 2 Mg/Ml 2 Ml Vial) 4 mg IV NOW STA Stop: 04/05/22 17:29 Last Admin: 04/05/22 18:18 Dose: 4 mg Documented by: [id number] Discharge Plan Visit Data Chief Complaint: Illness Discharge Problem: Acidosis, lactic, Diarrhea, Acute dehydration, Hypomagnesemia, Tobacco use Discharge Instructions Interventions: ED Discharge Assessment Last Done: 04/05/22 21:30
[2022-04-05] MEDS ORDERED: ONDANSETRON INJ 2 MG/ML 2 ML VIAL IV STA (17:28)
[2022-04-05] MEDS ORDERED: SODIUM CHLORIDE 0.9% 1000ML 1,000 ML IV SCH (17:30)
[2022-04-05 17:55] LABS: Basophils # (auto) 0.01 K/uL (0-0.2); Basophils % (auto) 0.1 %; Eosinophils # (auto) 0.09 K/uL (0-0.5); Eosinophils % (auto) 0.7 %; Hematocrit (blood only) 49.9 % (37-47); Hemoglobin 17.3 g/dL (12.0-16.0); Immature Granulocytes # (auto) 0.05 K/uL (0.00-0.02); Immature Granulocytes % (auto) 0.4 %; Lymphocytes # (auto) 1.59 K/uL (1.2-3.4); Mean Corpuscular Hemoglobin 31.7 pg (25-34); Mean Corpuscular Hgb Conc 34.7 g/dL (32-36); Mean Corpuscular Volume 91.4 fL (80-100); Mean Platelet Volume 10.1 fL (7.4-10.4); Monocytes # (auto) 0.79 K/uL (0.11-0.59); Monocytes % (auto) 6.5 %; Neutrophils # (auto) 9.68 K/uL (1.4-6.5); Neutrophils % (auto) 79.3 %; Platelet Count 232 K/uL (130-400); RDW Coefficient of Variation 12.8 % (11.5-14.5); RDW Standard Deviation 42.4 fL (36.4-46.3); Red Blood Count 5.46 M/uL (4.2-5.4); White Blood Count 12.21 K/uL (4.8-10.8)
[2022-04-05 18:12] LABS: Albumin Globulin Ratio 1.1 (0.9-2); Albumin Level 4.1 gm/dl (3.4-5.0); BUN Creatinine Ratio 4.8 (10-20); Bilirubin,Total 0.5 mg/dl (0.2-1.0); Calcium 10.3 mg/dl (8.5-10.1); Creatinine Clr Calc Pharmacy 78.4 ml/min; Est GFR (African American) 86.4 ml/min; Est GFR (Non-African American) 74.5 ml/min; Globulin 3.7 gm/dl (2.5-4.0); Magnesium 1.5 mg/dl (1.7-2.4); Potassium 4.5 mmol/L (3.5-5.1); Total Protein 7.8 gm/dl (6.0-8.3)
[2022-04-05] MEDS ORDERED: MAGNESIUM SULFATE / D5W 1 GM/100 ML BAG IV STA (19:23)
[2022-04-05] MEDS ORDERED: SODIUM CHLORIDE 0.9% 1000ML 1,000 ML IV ONE (19:23)
--- NOTE | 2022-04-05 20:06 | History & Physical Report ---
Date of Service April 05, 2022 Assessment & Plan (1) Diarrhea: Plan: 66-year-old female presenting with 1 day of profuse watery diarrhea as well as nausea. Tachycardic on arrival which is improved with administration of IV crystalloid. Blood pressure stable. Hypomagnesemia otherwise electrolytes and renal function are appropriate. -Admit to medical Check stool panel and C. difficile Continue IV fluid and electrolyte repletion Continue home cholestyramine space (question in the past of overflow diarrhea which may have been worsened by Questran.) -Sepsis present on arrival with heart rate = 103, WBC = 12.2. Blood pressure is appropriate at 125/65 Of note, patient was seen by GI in the past for these complaints of chronic nausea as well as diarrhea. She had a colonoscopy performed on 04/30/2021 for work-up of chronic diarrhea and rectal bleed. The exam revealed pedunculated and sessile polyps as well as small mouth diverticula. Several random biopsies were taken of the colon and rectum which revealed benign colon mucosa with mild architectural disarray. Negative for acute and chronic colitis, negative for microscopic colitis, negative for dysplasia and malignancy. Additional colon polyps revealed tubulovillous adenomas, sessile serrated adenoma which were negative for high-grade dysplasia as well as tubular adenoma, hyperplastic polyps which were negative for high-grade dysplasia. She had an EGD performed the same day (04/30/2021) which revealed a normal esophagus with multiple gastric polyps and gastritis which were biopsied. The results revealed mild chronic inflammation and reactive changes. Negative for intestinal metaplasia, dysplasia and malignancy. Negative for helical factor pylori organisms. (2) Acidosis, lactic: Plan: Patient with elevated lactate = 3.7 on arrival. Has decreased to 2.9 after 1 L of IV fluid patient has history of elevated lactic acid levels in the past. She is on metforminmay have some element of type B lactic acidosis. Blood pressure and heart rate are acceptable. Abdomen is soft, nontender, nondistended. Continue IV fluid Repeat lactic acid level in a.m. (3) Hypomagnesemia: Plan: Magnesium = 1.5. 1 g ordered in ER We will continue repletion with 3 additional grams Repeat magnesium level in a.m. (4) GERD (gastroesophageal reflux disease): Plan: Neck. Stable on medications Continue Protonix 40 mg p.o. every morning Continue Pepcid 20 mg p.o. daily (5) Restless leg: Plan: Chronic. Stable on medications Continue ropinirole 0.5 mg p.o. nightly (6) History of pulmonary embolism: Plan: Patient on Xarelto anticoagulation Continue (7) Anxiety and depression: Plan: Chronic. Stable on medications Continue BuSpar 50 mg p.o. 3 times daily Continue clonazepam 1 mg p.o. 3 times daily Continue escitalopram 20 mg p.o. every morning (8) Schizoaffective disorder: Plan: Mood appears to be stable at this time Continue divalproex 1500 mg p.o. nightly Continue Seroquel 400 mg p.o. nightly (9) Diabetes: Plan: Blood sugar = 187 hemoglobin A1c = 9.4 on 03/20/2022. Patient is on metformin and glipizide at home. We will hold oral agents while admitted We will administer insulin sliding scale Continue gabapentin for diabetic neuropathy (10) Hypothyroid: Plan: Chronic. Normal TSH of 3.482 today Continue Synthroid 50 mcg p.o. daily Plan: F/E/NLR at 125 mL/h x 2 L, magnesium repletion x3 g with repeat level in a.m., continue thiamine 100 mg p.o. twice daily, heart healthy diet as tolerated with aspiration precautions Prophylaxiscontinue home Xarelto for history of PE Codefull per discussion with patient DispoObservation to medical (do not anticipate > 2 midnight stay) Patient continues to smoke over 1 pack of cigarettes per day. She states that she is not interested in quitting. Smoking cessation counseling ordered History of Present Illness Chief Complaint: Diarrhea Primary Care Provider: Dylan Fuentes PA-C Tierra Gil is a 66-year-old female with history of diabetes, GERD, PE on Xarelto anticoagulation, anxiety/depression, schizoaffective disorder, GERD presenting with persistent watery diarrhea x1 day as well as nausea. Patient states that she has had multiple bowel movements throughout the day. Large- volume, watery, no blood or mucus present. She denies abdominal pain. She does have some nausea without vomiting. She reports that she has had similar sympto ms intermittently over the course of many years. Does not seem to be associated to oral intake or timing of medications. No dietary changes, sick contacts, recent travel. She thinks that she may have been on antibiotics 2 weeks ago. Reports having C. difficile in the past but is unsure of when. Additionally she reports some weakness and fatigue. Otherwise, denies fever/chills/chest pain/cough/shortness of breath/urinary complaints. No additional complaints at this time. In the ER patient afebrile, tachycardic, 1 episode of recorded hypotension with blood pressure 84/54 which has been normal on subsequent rechecks. Presently 125/65. ER course: Zofran 4 mg, normal saline x2 L, magnesium x1 g Allergies Allergy/AdvReac Type Severity Reaction Status Date / Time egg AdvReac Severe Vomiting Verified 03/19/22 22:45 Penicillins AdvReac Severe Vomiting Verified 03/19/22 22:45 Home Medications Medication Instructions Recorded Confirmed Type buspirone 15 mg tablet 15 mg PO TID 10/25/20 04/05/22 History gabapentin 100 mg capsule See Rx Instructions .ROUTE .COMPLEX 10/25/20 04/05/22 History (Neurontin) jfbqfd-biqiyvit-lsfodea 1 cap PO TID 10/25/20 04/05/22 History 12,000-38,000-60,000 unit capsule,delayed rel (Creon) pantoprazole 40 mg tablet,delayed 40 mg PO QAM 10/25/20 04/05/22 History release (Protonix) rivaroxaban 20 mg tablet (Xarelto) 20 mg PO QAM 10/25/20 04/05/22 History escitalopram oxalate 20 mg tablet 20 mg PO QAM 03/18/21 04/05/22 History (Lexapro) ropinirole 0.5 mg tablet 0.5 mg PO HS 03/18/21 04/05/22 History cholestyramine (with sugar) 4 gram 1 ea PO DAILY 06/03/21 04/05/22 History powder for susp in a packet (Questran) divalproex 500 mg tablet,extended 1,500 mg PO HS 06/03/21 04/05/22 History release 24 hr (Depakote ER) ferrous sulfate 325 mg (65 mg 325 mg PO Q OTHER DAY 06/03/21 04/05/22 History iron) tablet (Iron (ferrous sulfate)) quetiapine 400 mg tablet (Seroquel) 400 mg PO HS 06/03/21 04/05/22 History cyanocobalamin (vitamin B-12) 1,000 mcg PO BID 08/05/21 04/05/22 History 1,000 mcg tablet (Vitamin B-12) loratadine 10 mg tablet (Allergy 10 mg PO QAM 08/05/21 04/05/22 History Relief (loratadine)) thiamine HCl (vitamin B1) 100 mg 100 mg PO BID 10/11/21 04/05/22 History tablet (Vitamin B-1) levothyroxine 50 mcg tablet 50 mcg PO QAM 01/21/22 04/05/22 History ergocalciferol (vitamin D2) 1,250 1,250 mcg PO WK 02/02/22 04/05/22 History mcg (50,000 unit) capsule ondansetron HCl 4 mg tablet 4 mg PO Q8 PRN 02/02/22 04/05/22 History clonazepam 1 mg tablet 1 mg PO TID 02/25/22 04/05/22 History famotidine 20 mg tablet 20 mg PO DAILY 02/25/22 04/05/22 History glipizide 5 mg tablet 5 mg PO DAILY 30 Days #30 tab 03/22/22 04/05/22 Rx metformin 500 mg tablet 500 mg PO DAILY 04/05/22 04/05/22 History Past Med/Surg History Medical History (Updated 04/05/22 @ 22:29 by Alysa Wagner DO) Acute hyponatremia Anemia Anxiety and depression Arthritis Aspiration pneumonia Diabetes GERD (gastroesophageal reflux disease) History of pulmonary embolism Hyperparathyroidism Hypomagnesemia Hypoxia Iron deficiency anemia Irritable bowel syndrome Schizoaffective disorder Smoking Vomiting and diarrhea Weakness Surgical History History of section x2 Social History Smoking Status: Current every day smoker Tobacco Type: Cigarettes Cigarettes Per Day: 2-3 packs; Second Hand Exposure: No; Hx Alcohol Use: No Hx Substance Use: No Preferred Language: [place] Communication Ability: Effective 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 Beliefs That Will Affect Care: None marital status: Current Living Situation: Family Current Living Situation Comment: Lives with Daughter How many Children do You have: 2 Feels Safe at Home: Yes Assistive Devices: Walker and Wheelchair Review of Systems Review of Systems: All systems reviewed & are unremarkable except as noted in HPI & below Physical Exam Physical Exam: General: patient resting comfortably, NAD, chronically ill in appearance but non-toxic, AA&O x 4 Skin: warm, dry, intact, no rashes or lesions HEENT: NC/AT, PERRL, EOMI, anicteric sclera, conjunctiva without injection, external ear normal to inspection and nontender, nares patent, moist mucus membranes, dentition intact, no oropharyngeal lesions, neck supple, trachea midline, no LAD, no thyromegaly, no JVD Heart: +S1/S2, regular, tachycardic, no m/r/g Lungs: equal air entry bilaterally, no rales/rhonchi/wheezes Abd: +BS, soft, NT/ND, no masses/organomegaly/ascites Ext: warm, 2+ pulses in UE/LE bilaterally, no clubbing/cyanosis or edema Neuro: nonfocal, patient AA&O x 4, speech intact, no facial droop, moving all extremities on command with equal strength 5/5 Results & Data Results & Data ([facility]) Vital Signs (Past 12 Hours) Vital Signs Temp Pulse Pulse Resp BP BP Pulse Ox 04/05/22 19:58 95 H 20 124/92 92 04/05/22 18:30 103 H 18 84/54 L 91 04/05/22 17:27 103 H 18 91 04/05/22 16:38 37.0 C 113 H 112 H 16 124/73 124/73 90 Laboratory Results Laboratory Results WBC 12.21 K/uL (4.8-10.8) H 04/05/22 17:34 RBC 5.46 M/uL (4.2-5.4) H 04/05/22 17:34 Hgb 17.3 g/dL (12.0-16.0) H 04/05/22 17:34 Hct 49.9 % (37-47) H 04/05/22 17:34 MCV 91.4 fL (80-100) 04/05/22 17:34 MCH 31.7 pg (25-34) 04/05/22 17:34 MCHC 34.7 g/dL (32-36) 04/05/22 17:34 RDW Std Deviation 42.4 fL (36.4-46.3) 04/05/22 17:34 RDW Coeff of [place] 12.8 % (11.5-14.5) 04/05/22 17:34 Plt Count 232 K/uL (130-400) 04/05/22 17:34 MPV 10.1 fL (7.4-10.4) 04/05/22 17:34 Immature Gran % (Auto) 0.4 % 04/05/22 17:34 Neut % (Auto) 79.3 % 04/05/22 17:34 Lymph % (Auto) 13.0 % 04/05/22 17:34 [place] % (Auto) 6.5 % 04/05/22 17:34 Eos % (Auto) 0.7 % 04/05/22 17:34 Baso % (Auto) 0.1 % 04/05/22 17:34 Neut # (Auto) 9.68 K/uL (1.4-6.5) H 04/05/22 17:34 Lymph # (Auto) 1.59 K/uL (1.2-3.4) 04/05/22 17:34 [place] # (Auto) 0.79 K/uL (0.11-0.59) H 04/05/22 17:34 Eos # (Auto) 0.09 K/uL (0-0.5) 04/05/22 17:34 Baso # (Auto) 0.01 K/uL (0-0.2) 04/05/22 17:34 Immature Gran # (Auto) 0.05 K/uL (0.00-0.02) H 04/05/22 17:34 Sodium 137 mmol/L (136-145) 04/05/22 17:34 Potassium 4.5 mmol/L (3.5-5.1) 04/05/22 17:34 Chloride 98 mmol/L (98-107) 04/05/22 17:34 Carbon Dioxide 26 mmol/L (21-32) 04/05/22 17:34 Anion Gap 13 (3-11) H 04/05/22 17:34 BUN 4 mg/dl (6-23) L 04/05/22 17:34 Creatinine 0.83 mg/dl (0.6-1.2) 04/05/22 17:34 Est Cr Clr Drug Dosing 78.4 ml/min 04/05/22 17:34 Est GFR ( Amer) 86.4 ml/min 04/05/22 17:34 Est GFR (Non-Af Amer) 74.5 ml/min 04/05/22 17:34 BUN/Creatinine Ratio 4.8 (10-20) L 04/05/22 17:34 Glucose 187 mg/dl (70-99(Fasting)) H 04/05/22 17:34 POC Glucose 171 mg/dl (70-99) H 04/05/22 21:56 Lactate 2.9 mmol/L (0.4-2.0) H* 04/05/22 19:36 Calcium 10.3 mg/dl (8.5-10.1) H 04/05/22 17:34 Phosphorus 4.4 mg/dl (2.5-4.9) 04/05/22 19:36 Magnesium 1.5 mg/dl (1.7-2.4) L 04/05/22 17:34 Total Bilirubin 0.5 mg/dl (0.2-1.0) 04/05/22 17:34 AST 11 U/L (13-39) L 04/05/22 17:34 ALT 7 U/L (7-52) 04/05/22 17:34 Alkaline Phosphatase 72 U/L (34-104) 04/05/22 17:34 Total Creatine Kinase 17 U/L (26-192) L 04/05/22 17:34 C-Reactive Protein 0.79 mg/dl (0-0.5) H 04/05/22 19:36 Total Protein 7.8 gm/dl (6.0-8.3) 04/05/22 17:34 Albumin 4.1 gm/dl (3.4-5.0) 04/05/22 17:34 Globulin 3.7 gm/dl (2.5-4.0) 04/05/22 17:34 Albumin/Globulin Ratio 1.1 (0.9-2) 04/05/22 17:34 TSH 3.482 uIu/ml (0.300-4.500) 04/05/22 17:34 SARS-CoV-2, RNA, NAAT NEGATIVE (NEGATIVE) 04/05/22 17:30 Code Status & VTE Plan VTE Prophylaxis Plan VTE Prophylaxis will be ordered: Yes PG Care Time/CCT Total # of Minutes Spent Total Time Spent with Patient: Total time spent is greater than 50% in coordination of care (as documented) at patient's floor/unit and/or counseling patient: Coding Level of Care Code INT OBSERVATION CARE 70M LVL 3 Diagnoses Acidosis, lactic E87.2 Diarrhea R19.7 Diarrhea type: unspecified type Hypomagnesemia E83.42 GERD (gastroesophageal reflux disease) K21.9 Restless leg G25.81 History of pulmonary embolism Z86.711 Anxiety and depression F41.9; F32.9 Schizoaffective disorder F25.1 Schizoaffective disorder type: depressive Diabetes E11.9; Z79.4 Diabetes mellitus type: type 2 Diabetes mellitus correction insulin use: with immigration officer use Diabetes mellitus complication status: without complication Hypothyroid E03.9 (1) Diarrhea Diarrhea type: unspecified type Qualified Code(s): R19.7 - Diarrhea, unspecified (2) Schizoaffective disorder Schizoaffective disorder type: depressive Qualified Code(s): F25.1 - Schizoaffective disorder, depressive type (3) Diabetes Diabetes mellitus type: type 2 Diabetes mellitus correction insulin use: with correction use Diabetes mellitus complication status: without complication Qualified Code(s): E11.9 - Type 2 diabetes mellitus without complications; Z79.4 - commercial underwriter (current) use of insulin
[2022-04-05] MEDS ORDERED: DEXTROSE 50% 50 ML SYRINGE IV PRN (21:47)
[2022-04-05] MEDS ORDERED: GLUCOSE 10 TABS/TUBE PO PRN (21:47)
[2022-04-05] MEDS ORDERED: CARBOHYDRATES FOR HYPOGLYCEMIA PO PRN (21:47)
[2022-04-05] MEDS ORDERED: GLUCAGON FOR INJ 1 MG VIAL SQ PRN (21:47)
[2022-04-05] MEDS ORDERED: GABAPENTIN 100 MG CAP PO SCH (21:47)
[2022-04-05] MEDS ORDERED: GLUCOSE 40% GEL 15 GM TUBE PO PRN (21:47)
[2022-04-05 22:07] LABS: Appearance Urine Clear (Clear); Bacteria Urine Automated Negative (Negative); Bilirubin Urine Negative (Negative); Blood Urine Negative (Negative); Color Urine Yellow; Epithelial Cell Urine Auto >30 /lpf (0-5); Glucose Urine UA Negative (Negative); Ketones Urine Negative (Negative); Leukocyte Esterase Urine 1+ (Negative); Nitrite Urine Negative (Negative); Protein Urine Negative (Negative); Specific Gravity Urine 1.007 (1.000-1.030); Urobilinogen Urine Negative (Negative)
[2022-04-05 22:07] LABS: C Reactive Protein 0.79 mg/dl (0-0.5); Phosphorus 4.4 mg/dl (2.5-4.9)
[2022-04-05] MEDS: LACTATED RINGER'S 1,000 ML IV SCH (22:31)
[2022-04-05] MEDS: MAGNESIUM SULFATE / D5W 1 GM/100 ML BAG IV SCH (22:31)
[2022-04-05] MEDS: ONDANSETRON INJ 2 MG/ML 2 ML VIAL IV PRN (22:31)
[2022-04-05 22:39] LABS: Renal Epithelial Cells Urine 0-5 /lpf (0-5)
[2022-04-05 22:40] LABS: Calcium Oxalate Crystals Urine Present (None Prsent); RBC Urine Automated 0-4 /hpf (0-4)
[2022-04-05] MEDS: INSULIN ASPART PER UNIT SC SCH (22:51)
[2022-04-05] MEDS: QUEtiapine FUMARATE 200 MG TAB PO SCH (23:18)
[2022-04-05] MEDS: GABAPENTIN 100 MG CAP PO SCH (23:18)
[2022-04-05] MEDS: clonazePAM 1 MG TAB PO SCH (23:18)
[2022-04-05] MEDS: DIVALPROEX EXTENDED RELEASE 500 MG TAB PO SCH (23:19)
[2022-04-05] MEDS: THIAMINE HCL 100 MG TAB PO SCH (23:19)
[2022-04-05] MEDS: busPIRone 15 MG TAB PO SCH (23:19)
[2022-04-05] MEDS: rOPINIRole HCL 0.25 MG TABLET PO SCH (23:20)
[2022-04-06] MEDS: MAGNESIUM SULFATE / D5W 1 GM/100 ML BAG IV SCH ×2 (00:18→02:00)
[2022-04-06] MEDS ORDERED: PROCHLORPERAZINE 5 MG in SYRINGE 4 ML IV ONE ×2 (02:15→22:00)
[2022-04-06 03:19] LABS: Adenovirus F 40/41 PCR Not Detected (NotDetected); Astrovirus PCR Not Detected (NotDetected); Campylobacter PCR Not Detected (NotDetected); Clostridium diff Toxin A/B PCR Not Detected (NotDetected); Cryptosporidium PCR Not Detected (NotDetected); Cyclospora cayetanensis PCR Not Detected (NotDetected); Entamoeba histolytica PCR Not Detected (NotDetected); Enteroaggregative E.coli(EAEC) Not Detected (NotDetected); Enteropathogenic E.coli (EPEC) Not Detected (NotDetected); Enterotoxigenic E.coli (ETEC) Not Detected (NotDetected); Giardia lamblia PCR Not Detected (NotDetected); Norovirus GI/GII PCR Not Detected (NotDetected); Plesiomonas shigelloides PCR Not Detected (NotDetected); Rotavirus A PCR Not Detected (NotDetected); Salmonella PCR Not Detected (NotDetected); Sapovirus PCR Not Detected (NotDetected); Shiga-like Toxin E.coli (STEC) Not Detected (NotDetected); Shigella/Enteroinvasive E.coli Not Detected (NotDetected); Vibrio cholerae PCR Not Detected (NotDetected); Vibrio species PCR Not Detected (NotDetected); Yersinia enterocolitica PCR Not Detected (NotDetected)
[2022-04-06] MEDS: LEVOTHYROXINE SODIUM 50 MCG TABLET PO SCH (05:09)
[2022-04-06 06:35] LABS: Basophils # (auto) 0.01 K/uL (0-0.2); Basophils % (auto) 0.1 %; Eosinophils % (auto) 1.3 %; Hematocrit (blood only) 48.6 % (37-47); Hemoglobin 16.7 g/dL (12.0-16.0); Immature Granulocytes # (auto) 0.04 K/uL (0.00-0.02); Immature Granulocytes % (auto) 0.5 %; Lymphocytes # (auto) 1.83 K/uL (1.2-3.4); Lymphocytes % (auto) 23.6 %; Mean Corpuscular Hemoglobin 31.7 pg (25-34); Mean Corpuscular Hgb Conc 34.4 g/dL (32-36); Mean Corpuscular Volume 92.4 fL (80-100); Mean Platelet Volume 10.1 fL (7.4-10.4); Monocytes # (auto) 0.72 K/uL (0.11-0.59); Monocytes % (auto) 9.3 %; Neutrophils # (auto) 5.07 K/uL (1.4-6.5); Neutrophils % (auto) 65.2 %; Platelet Count 236 K/uL (130-400); RDW Coefficient of Variation 12.9 % (11.5-14.5); RDW Standard Deviation 43.3 fL (36.4-46.3); Red Blood Count 5.26 M/uL (4.2-5.4); White Blood Count 7.77 K/uL (4.8-10.8)
[2022-04-06 06:58] LABS: BUN Creatinine Ratio 6.4 (10-20); Calcium 9.1 mg/dl (8.5-10.1); Creatinine Clr Calc Pharmacy 82.5 ml/min; Est GFR (African American) 93.1 ml/min; Est GFR (Non-African American) 80.3 ml/min; Magnesium 2.2 mg/dl (1.7-2.4); Potassium 4.4 mmol/L (3.5-5.1)
[2022-04-06] MEDS: PANTOprazole 40 MG TAB PO SCH (08:12)
[2022-04-06] MEDS: LACTATED RINGER'S 1,000 ML IV SCH (08:12)
[2022-04-06] MEDS: FAMOTIDINE 20 MG TAB PO SCH (08:12)
[2022-04-06] MEDS: ESCITALOPRAM OXALATE 20 MG TAB PO SCH (08:13)
[2022-04-06] MEDS: busPIRone 15 MG TAB PO SCH ×3 (08:13→22:23)
[2022-04-06] MEDS: LORATADINE 10 MG TAB PO SCH (08:13)
[2022-04-06] MEDS: GABAPENTIN 100 MG CAP PO SCH ×3 (08:13→22:22)
[2022-04-06] MEDS: RIVAROXABAN 20 MG TAB PO SCH (08:13)
[2022-04-06] MEDS: PANCREAZE (LIPASE 4,200U) CAP PO SCH ×3 (08:13→17:46)
[2022-04-06] MEDS: THIAMINE HCL 100 MG TAB PO SCH ×2 (08:13→22:21)
[2022-04-06] MEDS: clonazePAM 1 MG TAB PO SCH ×3 (08:15→22:26)
[2022-04-06] MEDS: INSULIN ASPART PER UNIT SC SCH ×4 (08:59→22:30)
[2022-04-06] MEDS: CHOLESTYRAMINE LIGHT 4 GM PKT PO SCH (11:23)
[2022-04-06] MEDS: ONDANSETRON INJ 2 MG/ML 2 ML VIAL IV PRN ×2 (13:01→18:20)
--- NOTE | 2022-04-06 13:45 | Hospitalist Progress Note ---
Date of Service April 06, 2022 Assessment & Plan (1) Diarrhea: Plan: 66-year-old female presenting with 1 day of profuse watery diarrhea as well as nausea. Tachycardic on arrival which is improved with administration of IV crystalloid. Blood pressure stable. Hypomagnesemia otherwise electrolytes and renal function are appropriate. stool PCR panel and C. difficile are negative -Diarrhea has resolved -She has a history of positive fecal fat and is already on Creon -She is on cholestyramine at home and this is continued here -Finish the second liter of IV fluids and then discontinue -She is tolerating regular diet -Sepsis present on arrival with heart rate = 103, WBC = 12.2. Blood pressure is appropriate at 125/65 Of note, patient was seen by GI in the past for these complaints of chronic nausea as well as diarrhea. She had a colonoscopy performed on 04/30/2021 for work-up of chronic diarrhea and rectal bleed. The exam revealed pedunculated and sessile polyps as well as small mouth diverticula. Several random biopsies were taken of the colon and rectum which revealed benign colon mucosa with mild architectural disarray. Negative for acute and chronic colitis, negative for microscopic colitis, negative for dysplasia and malignancy. Additional colon polyps revealed tubulovillous adenomas, sessile serrated adenoma which were negative for high-grade dysplasia as well as tubular adenoma, hyperplastic polyps which were negative for high-grade dysplasia. She had an EGD performed the same day (04/30/2021) which revealed a normal esophagus with multiple gastric polyps and gastritis which were biopsied. The results revealed mild chronic inflammation and reactive changes. Negative for intestinal metaplasia, dysplasia and malignancy. Negative for helical factor pylori organisms. Improving, still feeling generally weak-awaiting PT/OT evaluations but hopefully will be strong enough to be discharged home tomorrow (2) Acidosis, lactic: Plan: Patient with elevated lactate = 3.7 on arrival. This did decrease to 2.9 after 1 L of IV fluid, however patient has history of elevated lactic acid levels persistently in the past. She is on metforminmay have some element of type B lactic acidosis. Blood pressure and heart rate are acceptable. Abdomen is soft, nontender, nondistended. Repeat lactate today again elevated at 4.9 but she is improved clinically. Serum bicarbonate is normal and there is no anion gap Perhaps she could have some sort of mitochondrial disorder? She is already on thiamine replacement as thiamine deficiency could cause elevated lactate levels She does have hepatomegaly with evidence of fatty liver and liver dysfunction can also lead to lactic acidosis Advised to discontinue metformin permanently No need to follow further lactate levels (3) Hypomagnesemia: Plan: Magnesium = 1.5 on arrival and has been repleted with replacement Likely low secondary to diarrhea Follow level in the morning (4) GERD (gastroesophageal reflux disease): Plan: Stable on medications Continue Protonix 40 mg p.o. every morning Continue Pepcid 20 mg p.o. daily (5) Restless leg: Plan: Chronic. Stable on medications Continue ropinirole 0.5 mg p.o. nightly (6) History of pulmonary embolism: Plan: Patient on Xarelto anticoagulation Continue (7) Anxiety and depression: Plan: Chronic. Stable on medications Continue BuSpar 15 mg p.o. 3 times daily Continue clonazepam 1 mg p.o. 3 times daily Continue escitalopram 20 mg p.o. every morning (8) Schizoaffective disorder: Plan: Mood appears to be stable at this time Continue divalproex 1500 mg p.o. nightly Continue Seroquel 400 mg p.o. nightly (9) Diabetes: Plan: hemoglobin A1c = 9.4 on 03/20/2022. Patient is on metformin and glipizide at home. She was supposed to have discontinued metformin I believe in the last admission but it is unclear if this was done We will hold oral agents while admitted and recommend permanently discontinuing metformin due to elevated lactate Continue insulin sliding scale and due to hyperglycemia, will add on Lantus 8 units daily Continue gabapentin for diabetic neuropathy -Defer to PCP for improved management at home as metformin will be discontinued (10) Hypothyroid: Plan: Chronic. Normal TSH of 3.482 this admission Continue Synthroid 50 mcg p.o. daily Plan: DVT prophylaxiscontinue home Xarelto for history of PE Codefull per discussion with patient Dispocontinued stay, but hopeful for discharge to home tomorrow if weakness is improved. PT/OT evaluations ordered as she is generally weak-she absolutely refuses to go to any kind of rehab placement. I tried to call both her daughters at the listed phone numbers to give an update and did not get any answer Patient continues to smoke over 1 pack of cigarettes per day. She states that she is not interested in quitting. Smoking cessation counseling ordered Admission and Anticipated Discharge Date Admission Date: April 05, 2022 Subjective Feeling a little bit better today, no further diarrhea, no abdominal pains. Appetite is low but improved from previous. She does not recall if she was taking metformin at home as her daughter helps her with her pills. I attempted to call both of her daughters and received a busy signal on 1 phone number and no answer on the other. It does appear that she recently refilled her metformin on 03/31 as per external medication history. She denies any chest pains or shortness of breath over her usual as she reports "I am a smoker." She has no desire to quit smoking. Review of Systems Review of Systems: All systems reviewed & are unremarkable except as noted in HPI & below Physical Exam Constitutional: WD/WN, vitals as above Eyes: + anicteric sclerae Neck: trachea midline, no thyromegaly Respiratory: normal respiratory effort, lungs clear to auscultation Cardiovascular: RRR, no murmur, no edema Chest (Breasts): Chest: normal inspection of chest Gastrointestinal (Abdomen): normal bowel sounds, soft, nontender, no hepatosplenomegaly Musculoskeletal: Extremities: extremities normal to inspection; no cyanosis and no clubbing Skin: no rashes, warm and dry Neurologic: moves all extremities and awake; no focal motor deficits Psychiatric: A+Ox3, euthymic affect Lymphatic: no lymphedema Results & Data Results & Data ([facility]) Vital Signs (Past 12 Hours) Vital Signs Temp Pulse Resp BP Pulse Ox 04/06/22 08:09 37.0 C 110 H 16 144/83 H 95 Laboratory Results 04/06/22 04/06/22 04/06/22 Range/Units 12:22 08:26 06:25 WBC (4.8-10.8) K/uL RBC (4.2-5.4) M/uL Hgb (12.0-16.0) g/dL Hct (37-47) % MCV (80-100) fL MCH (25-34) pg MCHC (32-36) g/dL RDW Std Deviation (36.4-46.3) fL RDW Coeff of Vernon (11.5-14.5) % Plt Count (130-400) K/uL MPV (7.4-10.4) fL Immature Gran % (Auto) % Neut % (Auto) % Lymph % (Auto) % Dukes % (Auto) % Eos % (Auto) % Baso % (Auto) % Neut # (Auto) (1.4-6.5) K/uL Lymph # (Auto) (1.2-3.4) K/uL Dukes # (Auto) (0.11-0.59) K/uL Eos # (Auto) (0-0.5) K/uL Baso # (Auto) (0-0.2) K/uL Immature Gran # (Auto) (0.00-0.02) K/uL Sodium (136-145) mmol/L Potassium (3.5-5.1) mmol/L Chloride (98-107) mmol/L Carbon Dioxide (21-32) mmol/L Anion Gap (3-11) BUN (6-23) mg/dl Creatinine (0.6-1.2) mg/dl Est Cr Clr Drug Dosing ml/min Est GFR ( Amer) ml/min Est GFR (Non-Af Amer) ml/min BUN/Creatinine Ratio (10-20) Glucose (70-99(Fasting)) mg/dl POC Glucose 233 H 228 H (70-99) mg/dl Lactate 4.6 H* (0.4-2.0) mmol/L Calcium (8.5-10.1) mg/dl Phosphorus (2.5-4.9) mg/dl Magnesium (1.7-2.4) mg/dl Total Bilirubin (0.2-1.0) mg/dl AST (13-39) U/L ALT (7-52) U/L Alkaline Phosphatase (34-104) U/L Total Creatine Kinase (26-192) U/L C-Reactive Protein (0-0.5) mg/dl Total Protein (6.0-8.3) gm/dl Albumin (3.4-5.0) gm/dl Globulin (2.5-4.0) gm/dl Albumin/Globulin Ratio (0.9-2) TSH (0.300-4.500) uIu/ml Urine Color Urine Appearance (Clear) Urine pH (4.5-7.5) Ur Specific Laurens (1.000-1.030) Urine Protein (Negative) Urine Glucose (UA) (Negative) Urine Ketones (Negative) Urine Blood (Negative) Urine Nitrite (Negative) Urine Bilirubin (Negative) Urine Urobilinogen (Negative) Ur Leukocyte Esterase (Negative) Urine WBC (Auto) (0-5) /hpf Urine RBC (Auto) (0-4) /hpf U Hyaline Cast (Auto) (0-5) /lpf U Epithel Cells (Auto) (0-5) /lpf Urine Bacteria (Auto) (Negative) Ur Renal Epithelial Cell (0-5) /lpf Calcium Oxalate Crystal (None Prsent) Urine Yeast Stl C. cayetanensis PCR (NotDetected) Stool Rotavirus A PCR (NotDetected) Stl Adenov F 40/41 PCR (NotDetected) Stool Astrovirus (PCR) (NotDetected) Stool Campylobacter PCR (NotDetected) Stl C. diff Tox A/B PCR (NotDetected) Stool Cryptosporidium PCR (NotDetected) Stl E.coli Shiga Tox PCR (NotDetected) Stl Enterotoxigenic E PCR (NotDetected) Stool EPEC (PCR) (NotDetected) Stool EAEC (PCR) (NotDetected) Stl E. histolytica PCR (NotDetected) Stool Giardia Lamblia PCR (NotDetected) Stool Salmonella PCR (NotDetected) Stool Sapovirus (PCR) (NotDetected) Stl P. shigelloides PCR (NotDetected) Stl Shigella/EIEC PCR (NotDetected) St Y.enterocolitica PCR (NotDetected) Stool Vibrio (PCR) (NotDetected) Stl Vibrio cholerae PCR (NotDetected) Stl Norovirus GI/GII PCR (NotDetected) SARS-CoV-2, RNA, NAAT (NEGATIVE) 04/06/22 04/06/22 04/06/22 Range/Units 06:25 06:25 01:43 WBC 7.77 (4.8-10.8) K/uL RBC 5.26 (4.2-5.4) M/uL Hgb 16.7 H (12.0-16.0) g/dL Hct 48.6 H (37-47) % MCV 92.4 (80-100) fL MCH 31.7 (25-34) pg MCHC 34.4 (32-36) g/dL RDW Std Deviation 43.3 (36.4-46.3) fL RDW Coeff of Vernon 12.9 (11.5-14.5) % Plt Count 236 (130-400) K/uL MPV 10.1 (7.4-10.4) fL Immature Gran % (Auto) 0.5 % Neut % (Auto) 65.2 % Lymph % (Auto) 23.6 % Dukes % (Auto) 9.3 % Eos % (Auto) 1.3 % Baso % (Auto) 0.1 % Neut # (Auto) 5.07 (1.4-6.5) K/uL Lymph # (Auto) 1.83 (1.2-3.4) K/uL Dukes # (Auto) 0.72 H (0.11-0.59) K/uL Eos # (Auto) 0.10 (0-0.5) K/uL Baso # (Auto) 0.01 (0-0.2) K/uL Immature Gran # (Auto) 0.04 H (0.00-0.02) K/uL Sodium 136 (136-145) mmol/L Potassium 4.4 (3.5-5.1) mmol/L Chloride 101 (98-107) mmol/L Carbon Dioxide 23 (21-32) mmol/L Anion Gap 12 H (3-11) BUN 5 L (6-23) mg/dl Creatinine 0.78 (0.6-1.2) mg/dl Est Cr Clr Drug Dosing 82.5 ml/min Est GFR ( Amer) 93.1 ml/min Est GFR (Non-Af Amer) 80.3 ml/min BUN/Creatinine Ratio 6.4 L (10-20) Glucose 193 H (70-99(Fasting)) mg/dl POC Glucose (70-99) mg/dl Lactate (0.4-2.0) mmol/L Calcium 9.1 (8.5-10.1) mg/dl Phosphorus (2.5-4.9) mg/dl Magnesium 2.2 (1.7-2.4) mg/dl Total Bilirubin (0.2-1.0) mg/dl AST (13-39) U/L ALT (7-52) U/L Alkaline Phosphatase (34-104) U/L Total Creatine Kinase (26-192) U/L C-Reactive Protein (0-0.5) mg/dl Total Protein (6.0-8.3) gm/dl Albumin (3.4-5.0) gm/dl Globulin (2.5-4.0) gm/dl Albumin/Globulin Ratio (0.9-2) TSH (0.300-4.500) uIu/ml Urine Color Urine Appearance (Clear) Urine pH (4.5-7.5) Ur Specific Lau[place] (1.000-1.030) Urine Protein (Negative) Urine Glucose (UA) (Negative) Urine Ketones (Negative) Urine Blood (Negative) Urine Nitrite (Negative) Urine Bilirubin (Negative) Urine Urobilinogen (Negative) Ur Leukocyte Esterase (Negative) Urine WBC (Auto) (0-5) /hpf Urine RBC (Auto) (0-4) /hpf U Hyaline Cast (Auto) (0-5) /lpf U Epithel Cells (Auto) (0-5) /lpf Urine Bacteria (Auto) (Negative) Ur Renal Epithelial Cell (0-5) /lpf Calcium Oxalate Crystal (None Prsent) Urine Yeast Stl C. cayetanensis PCR Not Detected (NotDetected) Stool Rotavirus A PCR Not Detected (NotDetected) Stl Adenov F 40/41 PCR Not Detected (NotDetected) Stool Astrovirus (PCR) Not Detected (NotDetected) Stool Campylobacter PCR Not Detected (NotDetected) Stl C. diff Tox A/B PCR Not Detected (NotDetected) Stool Cryptosporidium PCR Not Detected (NotDetected) Stl E.coli Shiga Tox PCR Not Detected (NotDetected) Stl Enterotoxigenic E PCR Not Detected (NotDetected) Stool EPEC (PCR) Not Detected (NotDetected) Stool EAEC (PCR) Not Detected (NotDetected) Stl E. histolytica PCR Not Detected (NotDetected) Stool Giardia Lamblia PCR Not Detected (NotDetected) Stool Salmonella PCR Not Detected (NotDetected) Stool Sapovirus (PCR) Not Detected (NotDetected) Stl P. shigelloides PCR Not Detected (NotDetected) Stl Shigella/EIEC PCR Not Detected (NotDetected) St Y.enterocolitica PCR Not Detected (NotDetected) Stool Vibrio (PCR) Not Detected (NotDetected) Stl Vibrio cholerae PCR Not Detected (NotDetected) Stl Norovirus GI/GII PCR Not Detected (NotDetected) SARS-CoV-2, RNA, NAAT (NEGATIVE) 04/05/22 04/05/22 04/05/22 Range/Units 21:56 21:50 19:36 WBC (4.8-10.8) K/uL RBC (4.2-5.4) M/uL Hgb (12.0-16.0) g/dL Hct (37-47) % MCV (80-100) fL MCH (25-34) pg MCHC (32-36) g/dL RDW Std Deviation (36.4-46.3) fL RDW Coeff of Vernon (11.5-14.5) % Plt Count (130-400) K/uL MPV (7.4-10.4) fL Immature Gran % (Auto) % Neut % (Auto) % Lymph % (Auto) % Dukes % (Auto) % Eos % (Auto) % Baso % (Auto) % Neut # (Auto) (1.4-6.5) K/uL Lymph # (Auto) (1.2-3.4) K/uL Dukes # (Auto) (0.11-0.59) K/uL Eos # (Auto) (0-0.5) K/uL Baso # (Auto) (0-0.2) K/uL Immature Gran # (Auto) (0.00-0.02) K/uL Sodium (136-145) mmol/L Potassium (3.5-5.1) mmol/L Chloride (98-107) mmol/L Carbon Dioxide (21-32) mmol/L Anion Gap (3-11) BUN (6-23) mg/dl Creatinine (0.6-1.2) mg/dl Est Cr Clr Drug Dosing ml/min Est GFR ( Amer) ml/min Est GFR (Non-Af Amer) ml/min BUN/Creatinine Ratio (10-20) Glucose (70-99(Fasting)) mg/dl POC Glucose 171 H (70-99) mg/dl Lactate (0.4-2.0) mmol/L Calcium (8.5-10.1) mg/dl Phosphorus 4.4 (2.5-4.9) mg/dl Magnesium (1.7-2.4) mg/dl Total Bilirubin (0.2-1.0) mg/dl AST (13-39) U/L ALT (7-52) U/L Alkaline Phosphatase (34-104) U/L Total Creatine Kinase (26-192) U/L C-Reactive Protein 0.79 H (0-0.5) mg/dl Total Protein (6.0-8.3) gm/dl Albumin (3.4-5.0) gm/dl Globulin (2.5-4.0) gm/dl Albumin/Globulin Ratio (0.9-2) TSH (0.300-4.500) uIu/ml Urine Color Yellow Urine Appearance Clear (Clear) Urine pH 6.0 (4.5-7.5) Ur Specific Laurens 1.007 (1.000-1.030) Urine Protein Negative (Negative) Urine Glucose (UA) Negative (Negative) Urine Ketones Negative (Negative) Urine Blood Negative (Negative) Urine Nitrite Negative (Negative) Urine Bilirubin Negative (Negative) Urine Urobilinogen Negative (Negative) Ur Leukocyte Esterase 1+ H (Negative) Urine WBC (Auto) 5-10 H (0-5) /hpf Urine RBC (Auto) 0-4 (0-4) /hpf U Hyaline Cast (Auto) 1-5 (0-5) /lpf U Epithel Cells (Auto) >30 H (0-5) /lpf Urine Bacteria (Auto) Negative (Negative) Ur Renal Epithelial Cell 0-5 (0-5) /lpf Calcium Oxalate Crystal Present A (None Prsent) Urine Yeast Not Reportable Stl C. cayetanensis PCR (NotDetected) Stool Rotavirus A PCR (NotDetected) Stl Adenov F 40/41 PCR (NotDetected) Stool Astrovirus (PCR) (NotDetected) Stool Campylobacter PCR (NotDetected) Stl C. diff Tox A/B PCR (NotDetected) Stool Cryptosporidium PCR (NotDetected) Stl E.coli Shiga Tox PCR (NotDetected) Stl Enterotoxigenic E PCR (NotDetected) Stool EPEC (PCR) (NotDetected) Stool EAEC (PCR) (NotDetected) Stl E. histolytica PCR (NotDetected) Stool Giardia Lamblia PCR (NotDetected) Stool Salmonella PCR (NotDetected) Stool Sapovirus (PCR) (NotDetected) Stl P. shigelloides PCR (NotDetected) Stl Shigella/EIEC PCR (NotDetected) St Y.enterocolitica PCR (NotDetected) Stool Vibrio (PCR) (NotDetected) Stl Vibrio cholerae PCR (NotDetected) Stl Norovirus GI/GII PCR (NotDetected) SARS-CoV-2, RNA, NAAT (NEGATIVE) 04/05/22 04/05/22 04/05/22 Range/Units 19:36 17:34 17:34 WBC (4.8-10.8) K/uL RBC (4.2-5.4) M/uL Hgb (12.0-16.0) g/dL Hct (37-47) % MCV (80-100) fL MCH (25-34) pg MCHC (32-36) g/dL RDW Std Deviation (36.4-46.3) fL RDW Coeff of Vernon (11.5-14.5) % Plt Count (130-400) K/uL MPV (7.4-10.4) fL Immature Gran % (Auto) % Neut % (Auto) % Lymph % (Auto) % Dukes % (Auto) % Eos % (Auto) % Baso % (Auto) % Neut # (Auto) (1.4-6.5) K/uL Lymph # (Auto) (1.2-3.4) K/uL Dukes # (Auto) (0.11-0.59) K/uL Eos # (Auto) (0-0.5) K/uL Baso # (Auto) (0-0.2) K/uL Immature Gran # (Auto) (0.00-0.02) K/uL Sodium (136-145) mmol/L Potassium (3.5-5.1) mmol/L Chloride (98-107) mmol/L Carbon Dioxide (21-32) mmol/L Anion Gap (3-11) BUN (6-23) mg/dl Creatinine (0.6-1.2) mg/dl Est Cr Clr Drug Dosing ml/min Est GFR ( Amer) ml/min Est GFR (Non-Af Amer) ml/min BUN/Creatinine Ratio (10-20) Glucose (70-99(Fasting)) mg/dl POC Glucose (70-99) mg/dl Lactate 2.9 H* 3.7 H* (0.4-2.0) mmol/L Calcium (8.5-10.1) mg/dl Phosphorus (2.5-4.9) mg/dl Magnesium (1.7-2.4) mg/dl Total Bilirubin (0.2-1.0) mg/dl AST (13-39) U/L ALT (7-52) U/L Alkaline Phosphatase (34-104) U/L Total Creatine Kinase (26-192) U/L C-Reactive Protein (0-0.5) mg/dl Total Protein (6.0-8.3) gm/dl Albumin (3.4-5.0) gm/dl Globulin (2.5-4.0) gm/dl Albumin/Globulin Ratio (0.9-2) TSH 3.482 (0.300-4.500) uIu/ml Urine Color Urine Appearance (Clear) Urine pH (4.5-7.5) Ur Specific Laurens (1.000-1.030) Urine Protein (Negative) Urine Glucose (UA) (Negative) Urine Ketones (Negative) Urine Blood (Negative) Urine Nitrite (Negative) Urine Bilirubin (Negative) Urine Urobilinogen (Negative) Ur Leukocyte Esterase (Negative) Urine WBC (Auto) (0-5) /hpf Urine RBC (Auto) (0-4) /hpf U Hyaline Cast (Auto) (0-5) /lpf U Epithel Cells (Auto) (0-5) /lpf Urine Bacteria (Auto) (Negative) Ur Renal Epithelial Cell (0-5) /lpf Calcium Oxalate Crystal (None Prsent) Urine Yeast Stl C. cayetanensis PCR (NotDetected) Stool Rotavirus A PCR (NotDetected) Stl Adenov F 40/41 PCR (NotDetected) Stool Astrovirus (PCR) (NotDetected) Stool Campylobacter PCR (NotDetected) Stl C. diff Tox A/B PCR (NotDetected) Stool Cryptosporidium PCR (NotDetected) Stl E.coli Shiga Tox PCR (NotDetected) Stl Enterotoxigenic E PCR (NotDetected) Stool EPEC (PCR) (NotDetected) Stool EAEC (PCR) (NotDetected) Stl E. histolytica PCR (NotDetected) Stool Giardia Lamblia PCR (NotDetected) Stool Salmonella PCR (NotDetected) Stool Sapovirus (PCR) (NotDetected) Stl P. shigelloides PCR (NotDetected) Stl Shigella/EIEC PCR (NotDetected) St Y.enterocolitica PCR (NotDetected) Stool Vibrio (PCR) (NotDetected) Stl Vibrio cholerae PCR (NotDetected) Stl Norovirus GI/GII PCR (NotDetected) SARS-CoV-2, RNA, NAAT (NEGATIVE) 04/05/22 04/05/22 04/05/22 Range/Units 17:34 17:34 17:30 WBC 12.21 H (4.8-10.8) K/uL RBC 5.46 H (4.2-5.4) M/uL Hgb 17.3 H (12.0-16.0) g/dL Hct 49.9 H (37-47) % MCV 91.4 (80-100) fL MCH 31.7 (25-34) pg MCHC 34.7 (32-36) g/dL RDW Std Deviation 42.4 (36.4-46.3) fL RDW Coeff of Vernon 12.8 (11.5-14.5) % Plt Count 232 (130-400) K/uL MPV 10.1 (7.4-10.4) fL Immature Gran % (Auto) 0.4 % Neut % (Auto) 79.3 % Lymph % (Auto) 13.0 % Dukes % (Auto) 6.5 % Eos % (Auto) 0.7 % Baso % (Auto) 0.1 % Neut # (Auto) 9.68 H (1.4-6.5) K/uL Lymph # (Auto) 1.59 (1.2-3.4) K/uL Dukes # (Auto) 0.79 H (0.11-0.59) K/uL Eos # (Auto) 0.09 (0-0.5) K/uL Baso # (Auto) 0.01 (0-0.2) K/uL Immature Gran # (Auto) 0.05 H (0.00-0.02) K/uL Sodium 137 (136-145) mmol/L Potassium 4.5 (3.5-5.1) mmol/L Chloride 98 (98-107) mmol/L Carbon Dioxide 26 (21-32) mmol/L Anion Gap 13 H (3-11) BUN 4 L (6-23) mg/dl Creatinine 0.83 (0.6-1.2) mg/dl Est Cr Clr Drug Dosing 78.4 ml/min Est GFR ( Amer) 86.4 ml/min Est GFR (Non-Af Amer) 74.5 ml/min BUN/Creatinine Ratio 4.8 L (10-20) Glucose 187 H (70-99(Fasting)) mg/dl POC Glucose (70-99) mg/dl Lactate (0.4-2.0) mmol/L Calcium 10.3 H (8.5-10.1) mg/dl Phosphorus (2.5-4.9) mg/dl Magnesium 1.5 L (1.7-2.4) mg/dl Total Bilirubin 0.5 (0.2-1.0) mg/dl AST 11 L (13-39) U/L ALT 7 (7-52) U/L Alkaline Phosphatase 72 (34-104) U/L Total Creatine Kinase 17 L (26-192) U/L C-Reactive Protein (0-0.5) mg/dl Total Protein 7.8 (6.0-8.3) gm/dl Albumin 4.1 (3.4-5.0) gm/dl Globulin 3.7 (2.5-4.0) gm/dl Albumin/Globulin Ratio 1.1 (0.9-2) TSH (0.300-4.500) uIu/ml Urine Color Urine Appearance (Clear) Urine pH (4.5-7.5) Ur Specific Laurens (1.000-1.030) Urine Protein (Negative) Urine Glucose (UA) (Negative) Urine Ketones (Negative) Urine Blood (Negative) Urine Nitrite (Negative) Urine Bilirubin (Negative) Urine Urobilinogen (Negative) Ur Leukocyte Esterase (Negative) Urine WBC (Auto) (0-5) /hpf Urine RBC (Auto) (0-4) /hpf U Hyaline Cast (Auto) (0-5) /lpf U Epithel Cells (Auto) (0-5) /lpf Urine Bacteria (Auto) (Negative) Ur Renal Epithelial Cell (0-5) /lpf Calcium Oxalate Crystal (None Prsent) Urine Yeast Stl C. cayetanensis PCR (NotDetected) Stool Rotavirus A PCR (NotDetected) Stl Adenov F 40/41 PCR (NotDetected) Stool Astrovirus (PCR) (NotDetected) Stool Campylobacter PCR (NotDetected) Stl C. diff Tox A/B PCR (NotDetected) Stool Cryptosporidium PCR (NotDetected) Stl E.coli Shiga Tox PCR (NotDetected) Stl Enterotoxigenic E PCR (NotDetected) Stool EPEC (PCR) (NotDetected) Stool EAEC (PCR) (NotDetected) Stl E. histolytica PCR (NotDetected) Stool Giardia Lamblia PCR (NotDetected) Stool Salmonella PCR (NotDetected) Stool Sapovirus (PCR) (NotDetected) Stl P. shigelloides PCR (NotDetected) Stl Shigella/EIEC PCR (NotDetected) St Y.enterocolitica PCR (NotDetected) Stool Vibrio (PCR) (NotDetected) Stl Vibrio cholerae PCR (NotDetected) Stl Norovirus GI/GII PCR (NotDetected) SARS-CoV-2, RNA, NAAT NEGATIVE (NEGATIVE) PG Care Time/CCT Total # of Minutes Spent Total Time Spent with Patient: Total time spent is greater than 50% in coordination of care (as documented) at patient's floor/unit and/or counseling patient: Coding Level of Care Code 69723 Subseq Hosp Care Lvl 2 Diagnoses Diarrhea R19.7 Diarrhea type: unspecified type Acidosis, lactic E87.2 Hypomagnesemia E83.42 GERD (gastroesophageal reflux disease) K21.9 Restless leg G25.81 History of pulmonary embolism Z86.711 Anxiety and depression F41.9; F32.9 Schizoaffective disorder F25.1 Schizoaffective disorder type: depressive Diabetes E11.9; Z79.4 Diabetes mellitus complication status: without complication Diabetes mellitus fci insulin use: with termite exterminator helper use Diabetes mellitus type: type 2 Hypothyroid E03.9 (1) Diabetes Diabetes mellitus complication status: without complication Diabetes mellitus fci insulin use: with fci use Diabetes mellitus type: type 2 Qualified Code(s): E11.9 - Type 2 diabetes mellitus without complications; Z79.4 - adjunct faculty for medical terminology (current) use of insulin (2) Diarrhea Diarrhea type: unspecified type Qualified Code(s): R19.7 - Diarrhea, unspecified (3) Schizoaffective disorder Schizoaffective disorder type: depressive Qualified Code(s): F25.1 - Schizoaffective disorder, depressive type
--- NOTE | 2022-04-06 14:06 | Electrocardiogram Report ---
Test Reason : Blood Pressure : / mmHG Vent. Rate : 110 BPM Atrial Rate : 110 BPM P-R Int : 152 ms QRS Dur : 130 ms QT Int : 380 ms P-R-T Axes : 054 127 005 degrees QTc Int : 514 ms Sinus tachycardia Right bundle branch block Septal infarct , age undetermined Abnormal ECG When compared with ECG of 19-MAR-2022 19:52, Septal infarct is now Present Confirmed by Dave Real ([id number] on 04/06/2022 2:06:11 PM Referred By: REFERRED SELF Confirmed By:Dave Real
[2022-04-06] MEDS: INSULIN GLARGINE SOLOSTAR 100 UNITS/ML 3 ML PEN SC SCH (17:47)
[2022-04-06] MEDS ORDERED: LACTATED RINGER'S 1,000 ML IV ONE (21:38)
[2022-04-06] MEDS: rOPINIRole HCL 0.25 MG TABLET PO SCH (22:21)
[2022-04-06] MEDS: QUEtiapine FUMARATE 200 MG TAB PO SCH (22:22)
[2022-04-06] MEDS: DIVALPROEX EXTENDED RELEASE 500 MG TAB PO SCH (22:23)
[2022-04-06 22:36] LABS: Anion Gap 9 (3-11); Blood Urea Nitrogen 6 mg/dl (6-23); Carbon Dioxide 23 mmol/L (21-32); Chloride 103 mmol/L (98-107); Creatinine Clr Calc Pharmacy 85.8 ml/min; Est GFR (African American) 97.6 ml/min; Est GFR (Non-African American) 84.2 ml/min; Glucose 182 mg/dl (70-99(Fasting)); Magnesium 1.8 mg/dl (1.7-2.4); Sodium 135 mmol/L (136-145)
[2022-04-07] MEDS: ACETAMINOPHEN 325 MG TAB PO PRN ×2 (00:49→08:11)
[2022-04-07] MEDS: LEVOTHYROXINE SODIUM 50 MCG TABLET PO SCH (06:39)
[2022-04-07] MEDS: clonazePAM 1 MG TAB PO SCH ×2 (08:11→13:31)
[2022-04-07] MEDS: LORATADINE 10 MG TAB PO SCH (08:12)
[2022-04-07] MEDS: ESCITALOPRAM OXALATE 20 MG TAB PO SCH (08:12)
[2022-04-07] MEDS: PANTOprazole 40 MG TAB PO SCH (08:13)
[2022-04-07] MEDS: busPIRone 15 MG TAB PO SCH ×2 (08:13→13:31)
[2022-04-07] MEDS: GABAPENTIN 100 MG CAP PO SCH ×2 (08:13→13:32)
[2022-04-07 08:14] LABS: Basophils # (auto) 0.01 K/uL (0-0.2); Basophils % (auto) 0.1 %; Eosinophils # (auto) 0.18 K/uL (0-0.5); Eosinophils % (auto) 2.3 %; Hematocrit (blood only) 42.4 % (37-47); Hemoglobin 14.5 g/dL (12.0-16.0); Immature Granulocytes # (auto) 0.03 K/uL (0.00-0.02); Immature Granulocytes % (auto) 0.4 %; Lymphocytes # (auto) 3.18 K/uL (1.2-3.4); Mean Corpuscular Hgb Conc 34.2 g/dL (32-36); Mean Corpuscular Volume 90.8 fL (80-100); Mean Platelet Volume 9.9 fL (7.4-10.4); Monocytes # (auto) 1.15 K/uL (0.11-0.59); Monocytes % (auto) 14.8 %; Neutrophils # (auto) 3.21 K/uL (1.4-6.5); Neutrophils % (auto) 41.4 %; Platelet Count 202 K/uL (130-400); RDW Coefficient of Variation 12.9 % (11.5-14.5); RDW Standard Deviation 42.2 fL (36.4-46.3); Red Blood Count 4.67 M/uL (4.2-5.4); White Blood Count 7.76 K/uL (4.8-10.8)
[2022-04-07] MEDS: PANCREAZE (LIPASE 4,200U) CAP PO SCH ×2 (08:14→13:32)
[2022-04-07] MEDS: THIAMINE HCL 100 MG TAB PO SCH (08:14)
[2022-04-07] MEDS: FAMOTIDINE 20 MG TAB PO SCH (08:15)
[2022-04-07] MEDS: RIVAROXABAN 20 MG TAB PO SCH (08:15)
[2022-04-07 08:28] LABS: Albumin Globulin Ratio 1.1 (0.9-2); Albumin Level 3.2 gm/dl (3.4-5.0); BUN Creatinine Ratio 7.8 (10-20); Bilirubin,Total 0.6 mg/dl (0.2-1.0); Calcium 8.7 mg/dl (8.5-10.1); Creatinine Clr Calc Pharmacy 100.5 ml/min; Est GFR (African American) 109.3 ml/min; Est GFR (Non-African American) 94.3 ml/min; Magnesium 1.6 mg/dl (1.7-2.4); Potassium 4.2 mmol/L (3.5-5.1); Total Protein 6.2 gm/dl (6.0-8.3)
[2022-04-07] MEDS: INSULIN ASPART PER UNIT SC SCH ×2 (09:10→13:30)
[2022-04-07] MEDS: INSULIN GLARGINE SOLOSTAR 100 UNITS/ML 3 ML PEN SC SCH (09:11)
--- NOTE | 2022-04-07 11:23 | Discharge Summary ---
Date of Service April 07, 2022 Admission HPI Per Admitting Provider Tierra Gil is a 66-year-old female with history of diabetes, GERD, PE on Xarelto anticoagulation, anxiety/depression, schizoaffective disorder, GERD presenting with persistent watery diarrhea x1 day as well as nausea. Patient states that she has had multiple bowel movements throughout the day. Large- volume, watery, no blood or mucus present. She denies abdominal pain. She does have some nausea without vomiting. She reports that she has had similar symptoms intermittently over the course of many years. Does not seem to be associated to oral intake or timing of medications. No dietary changes, sick contacts, recent travel. She thinks that she may have been on antibiotics 2 weeks ago. Reports having C. difficile in the past but is unsure of when. Additionally she reports some weakness and fatigue. Otherwise, denies fever/chills/chest pain/cough/shortness of breath/urinary complaints. No additional complaints at this time. In the ER patient afebrile, tachycardic, 1 episode of recorded hypotension with blood pressure 84/54 which has been normal on subsequent rechecks. Presently 125/65. ER course: Zofran 4 mg, normal saline x2 L, magnesium x1 g Principal Diagnosis Enteritis with diarrhea, volume depletion, suspected sepsis on admission, hypomagnesemia Discharge Exam General-alert and oriented x3, no fevers, no chills HEENT-head atraumatic and normocephalic, TMs intact bilaterally, pupils equal and reactive to light, extraocular muscles intact Neck-no lymphadenopathy or thyromegaly, trachea midline Chest-clear to auscultation percussion. No rales wheezing or rhonchi Cardiac-regular rate and rhythm, normal S1 and S2, no murmurs Abdomen-normal bowel sounds, nontender, no hepatosplenomegaly Extremities-no cyanosis, clubbing, or edema Neuro-cranial nerves II through XII intact, motor and sensory function within normal limits, strength symmetrical , no focal deficits Psych-normal affect, normal mood Discharge Data Allergies Allergy/AdvReac Type Severity Reaction Status Date / Time egg AdvReac Severe Vomiting Verified 03/19/22 22:45 Penicillins AdvReac Severe Vomiting Verified 03/19/22 22:45 Consultations 04/05/22 19:23 ED Decision to Admit Stat Hospital Course (1) Diarrhea: 66-year-old female presenting with 1 day of profuse watery diarrhea as well as nausea. Tachycardic on arrival which is improved with administration of IV crystalloid. Blood pressure stable. Hypomagnesemia otherwise electrolytes and renal function are appropriate. stool PCR panel and C. difficile are negative -Diarrhea has resolved -She has a history of positive fecal fat and is already on Creon -She is on cholestyramine at home and this is continued here -Finish the second liter of IV fluids and then discontinue -She is tolerating regular diet -Sepsis present on arrival with heart rate = 103, WBC = 12.2. Blood pressure is appropriate at 125/65. Resolved Of note, patient was seen by GI in the past for these complaints of chronic nausea as well as diarrhea. She had a colonoscopy performed on 04/30/2021 for work-up of chronic diarrhea and rectal bleed. The exam revealed pedunculated and sessile polyps as well as small mouth diverticula. Several random biopsies were taken of the colon and rectum which revealed benign colon mucosa with mild architectural disarray. Negative for acute and chronic colitis, negative for microscopic colitis, negative for dysplasia and malignancy. Additional colon polyps revealed tubulovillous adenomas, sessile serrated adenoma which were negative for high-grade dysplasia as well as tubular adenoma, hyperplastic polyps which were negative for high-grade dysplasia. She had an EGD performed the same day (04/30/2021) which revealed a normal esophagus with multiple gastric polyps and gastritis which were biopsied. The results revealed mild chronic inflammation and reactive changes. Negative for intestinal metaplasia, dysplasia and malignancy. Negative for helical factor pylori organisms (2) Acidosis, lactic: Patient with elevated lactate = 3.7 on arrival. This did decrease to 2.9 after 1 L of IV fluid, however patient has history of elevated lactic acid levels persistently in the past. She is on metforminmay have some element of type B lactic acidosis. Blood pressure and heart rate are acceptable. Abdomen is soft, nontender, nondistended. Repeat lactate 04/06 again elevated at 4.9 but she is improved clinically. Serum bicarbonate is normal and there is no anion gap She is already on thiamine replacement as thiamine deficiency could cause elevated lactate levels She does have hepatomegaly with evidence of fatty liver and liver dysfunction can also lead to lactic acidosis Advised to discontinue metformin permanently No need to follow further lactate levels (3) Hypomagnesemia: Magnesium initially corrected but low again today, April 07. Oral magnesium replacement ordered. We will continue going forward. (4) GERD (gastroesophageal reflux disease): Stable on medications Continue Protonix 40 mg p.o. every morning Continue Pepcid 20 mg p.o. daily (5) Restless leg: Chronic. Stable on medications Continue ropinirole 0.5 mg p.o. nightly (6) History of pulmonary embolism: Patient on Xarelto anticoagulation Continue (7) Anxiety and depression: Chronic. Stable on medications Continue BuSpar 15 mg p.o. 3 times daily Continue clonazepam 1 mg p.o. 3 times daily Continue escitalopram 20 mg p.o. every morning (8) Schizoaffective disorder: Mood appears to be stable at this time Continue divalproex 1500 mg p.o. nightly Continue Seroquel 400 mg p.o. nightly (9) Diabetes: hemoglobin A1c = 9.4 on 03/20/2022. Patient is on metformin and glipizide at home. She was supposed to have discontinued metformin I believe in the last admission but it is unclear if this was done We will hold oral agents while admitted and recommend permanently discontinuing metformin due to elevated lactate Continue insulin sliding scale and due to hyperglycemia, will add on Lantus 8 units daily Continue gabapentin for diabetic neuropathy -Defer to PCP for improved management at home as metformin will be discontinued (10) Hypothyroid: Chronic. Normal TSH of 3.482 this admission Continue Synthroid 50 mcg p.o. daily DVT prophylaxiscontinue home Xarelto for history of PE Codefull per discussion with patient DispoHome today, April 07. Total Time Total Time Spent Total Time Spent (In Minutes): 35 minutes Discharge Plan Discharge Items Patient Disposition: Home - Self-Care Reason For Visit: DIARRHEA Discharge Diagnosis: Enteritis with diarrhea, hypovolemia, hypomagnesemia Activity: Resume your previous activity Non-emergency contact: Primary Care Provider Call non-emergency contact if: you have any medication questions and your symptoms worsen Follow-up/Referrals: Dylan Fuentes PA-C [Primary Care Provider] - Diet: Regular Addtl Attending Provider Instructions: Follow-up with your primary care provider in 1 week Pending Studies at Discharge: No Stand-Alone Forms: My [employer], Smoking Cessation Medications and DC Order Prescriptions: New magnesium oxide 400 mg (241.3 mg magnesium) Tablet 400 mg PO BID Qty: 60 RF: 0 Continued pantoprazole [Protonix] 40 mg tablet,delayed release (DR/EC) 40 mg PO QAM RF: 0 gabapentin [Neurontin] 100 mg capsule See Rx Instructions .ROUTE .COMPLEX RF: 0 buspirone 15 mg tablet 15 mg PO TID RF: 0 Creon 12,000-38,000 -60,000 unit capsule,delayed release(DR/EC) 1 cap PO TID RF: 0 Xarelto 20 mg tablet 20 mg PO QAM RF: 0 ropinirole 0.5 mg tablet 0.5 mg PO HS RF: 0 escitalopram oxalate [Lexapro] 20 mg tablet 20 mg PO QAM RF: 0 levothyroxine 50 mcg tablet 50 mcg PO QAM RF: 0 famotidine 20 mg tablet 20 mg PO DAILY RF: 0 clonazepam 1 mg tablet 1 mg PO TID RF: 0 glipizide 5 mg Tablet 5 mg PO DAILY 30 Days Qty: 30 RF: 0 cholestyramine (with sugar) [Questran] 4 gram powder in packet 1 ea PO DAILY RF: 0 ferrous sulfate [Iron (ferrous sulfate)] 325 mg (65 mg iron) tablet 325 mg PO Q OTHER DAY RF: 0 divalproex [Depakote ER] 500 mg tablet extended release 24 hr 1,500 mg PO HS RF: 0 quetiapine [Seroquel] 400 mg tablet 400 mg PO HS RF: 0 cyanocobalamin (vitamin B-12) [Vitamin B-12] 1,000 mcg tablet 1,000 mcg PO BID RF: 0 loratadine [Allergy Relief (loratadine)] 10 mg tablet 10 mg PO QAM RF: 0 thiamine HCl (vitamin B1) [Vitamin B-1] 100 mg tablet 100 mg PO BID RF: 0 ondansetron HCl 4 mg tablet 4 mg PO Q8 PRN (Reason: Nausea And Vomiting) RF: 0 ergocalciferol (vitamin D2) 1,250 mcg (50,000 unit) capsule 1,250 mcg PO WK RF: 0 metformin 500 mg tablet 500 mg PO DAILY RF: 0 Discharge Orders: Discharge Order (Routine); Ordered 04/07/22 Ordered By: Alex De Paz Admission Data Admit Date/Time: 04/05/22 22:38 Attending Provider: Alex De Paz Provider: Alysa Wagner Primary Care Provider: Dylan Fuentes Other Providers: Alysa Wagner Coding Level of Care Code D/C DAY MANAGEMENT >30 MINS Diagnoses Diarrhea R19.7 Diarrhea type: unspecified type Acidosis, lactic E87.2 Hypomagnesemia E83.42 GERD (gastroesophageal reflux disease) K21.9 Restless leg G25.81 History of pulmonary embolism Z86.711 Anxiety and depression F41.9; F32.9 Schizoaffective disorder F25.1 Schizoaffective disorder type: depressive Diabetes E11.9; Z79.4 Diabetes mellitus type: type 2 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
[2022-04-07] MEDS: CHOLESTYRAMINE LIGHT 4 GM PKT PO SCH (13:37)
[2022-04-07 15:02] VITALS: PULSE 102; TEMP 98.6; O2SAT 91
[2022-04-07 15:23] VITALS: BP 152/69
[2022-04-07] MEDS ORDERED: MAGNESIUM OXIDE 400 MG TAB PO SCH (21:00)
== END 2022-04-07 16:01 | disposition home or self-care (01) ==
LOC: ED 16:46 → SUATTDRO 20:05 → INTOOBSV 20:05 → 3N 20:05 → SUATTDRO 22:38

== ENCOUNTER 2022-04-08 01:08 | Inpatient (IN) ==
[2022-04-08 02:22] LABS: Basophils # (auto) 0.01 K/uL (0-0.2); Basophils % (auto) 0.1 %; Eosinophils # (auto) 0.13 K/uL (0-0.5); Eosinophils % (auto) 1.9 %; Hemoglobin 15.1 g/dL (12.0-16.0); Immature Granulocytes # (auto) 0.03 K/uL (0.00-0.02); Immature Granulocytes % (auto) 0.4 %; Lymphocytes # (auto) 2.41 K/uL (1.2-3.4); Lymphocytes % (auto) 34.5 %; Mean Corpuscular Hemoglobin 31.4 pg (25-34); Mean Corpuscular Hgb Conc 34.3 g/dL (32-36); Mean Corpuscular Volume 91.5 fL (80-100); Mean Platelet Volume 9.9 fL (7.4-10.4); Monocytes % (auto) 12.9 %; Neutrophils % (auto) 50.2 %; Platelet Count 215 K/uL (130-400); RDW Coefficient of Variation 12.8 % (11.5-14.5); RDW Standard Deviation 42.8 fL (36.4-46.3); Red Blood Count 4.81 M/uL (4.2-5.4); White Blood Count 6.98 K/uL (4.8-10.8)
--- NOTE | 2022-04-08 02:46 | History & Physical Report ---
Date of Service April 08, 2022 Assessment & Plan (1) Weakness: Plan: Tierra Gil is a 66-year-old female with history of diabetes, GERD, h/o PE on Xarelto, anxiety/depression, schizoaffective disorder, and GERD who presented to [facility] ED on 04/08 for a mechanical fall and generalized weakness, shortly after being discharged on 04/07. Generalized Weakness; Nausea; Diarrhea In context of recent hospitalization due to diarrhea - likely viral g astroenteritis that is still not resolved. Of note the patient has had significant work-up for chronic nausea/diarrhea including EGD/colonoscopy which have been unremarkable. - admit to floor with fall precautions - PT/OT consulted - patient may need SNF vs rehab on discharge - continue home Creon and cholestyramine (h/o fecal fat) - will give LR @125cc/hr x2L - PRN Zofran for nausea Hypomagnesemia Mg 1.6 on presentation - likely due to diarrhea. - repleted with 2g Mg IV - continue home daily Magnesium Chronic Medical Conditions: GERD: continue home Protonix and Famotidine RLS: continue home Ropinirole H/o PE: continue home Xarelto Schizoaffective disorder; Anxiety; Depression: continue home Depakote, Seroquel, Buspar, Lexapro, and Clonazepam T2DM: A1c 9.4 in 03/2022. Metformin recently stopped due to chronic lactic acidosis. Continue home Gabapentin. Hold other meds and utilize SSI while hospitalized Hypothyroidism: TSH 3.48. Continue home Synthroid Iron-deficiency anemia: Hgb 15.1 today. Continue home ferrous sulfate FEN/GI: DM2 diet; LR @125cc/hr x2L DVT Prophylaxis: Xarelto Code Status: full code Disposition: med/surg, PT/OT consults for possible SNF vs rehab placement (2) Vomiting and diarrhea: (3) GERD (gastroesophageal reflux disease): (4) Schizoaffective disorder: (5) Anxiety and depression: (6) Microcytic anemia: (7) History of pulmonary embolism: (8) Lactic acidosis: (9) Restless leg: (10) GERD (gastroesophageal reflux disease): (11) Tobacco use: (12) Hypothyroid: History of Present Illness Chief Complaint: fall Primary Care Provider: Dylan Fuentes PA-C Tierra Gil is a 66-year-old female with history of diabetes, GERD, h/o PE on Xarelto, anxiety/depression, schizoaffective disorder, and GERD who presented to [facility] ED on 04/08 after a ground-level mechanical fall with generalized weakness and inability to get back up. Of note the patient was just admitted to [facility] from 04/05 - 04/07 for acute on chronic diarrhea which improved with IVF repletion (c.diff/stool panel negative at that time). Patient was discharged home under care of her daughter, sister and aunt. Daughter reported that she is unable to care properly for her due to her persistent weakness in context of recent GI symptoms/illness and hospitalization. Does report that her diarrhea has significantly improved since onset ~1 week ago but still has watery diarrhea ~[id number]. Lives in an apartment and was proficient in her ADLs and most iADLs before her recent hospitalization, but now is just "too weak" to take care of herself. Denies fever/chills, chest pain, SOB, vomiting, abdominal pain, or rash. In the ED patient was mildly tachycardic in 100s (same as time of discharge) but VS otherwise stable on room air. CBC/CMP/Mg/TSH unremarkable. CXR unremarkable. Allergies Allergy/AdvReac Type Severity Reaction Status Date / Time egg AdvReac Severe Vomiting Verified 04/08/22 01:44 Penicillins AdvReac Severe Vomiting Verified 04/08/22 01:44 Home Medications Medication Instructions Recorded Confirmed Type buspirone 15 mg tablet 15 mg PO TID 10/25/20 04/08/22 History gabapentin 100 mg capsule See Rx Instructions .ROUTE .COMPLEX 10/25/20 04/08/22 History (Neurontin) [id number] 1 cap PO TID 10/25/20 04/08/22 History 12,000-38,000-60,000 unit capsule,delayed rel (Creon) pantoprazole 40 mg tablet,delayed 40 mg PO QAM 10/25/20 04/08/22 History release (Protonix) rivaroxaban 20 mg tablet (Xarelto) 20 mg PO QAM 10/25/20 04/08/22 History escitalopram oxalate 20 mg tablet 20 mg PO QAM 03/18/21 04/08/22 History (Lexapro) ropinirole 0.5 mg tablet 0.5 mg PO HS 03/18/21 04/08/22 History cholestyramine (with sugar) 4 gram 1 ea PO DAILY 06/03/21 04/08/22 History powder for susp in a packet (Questran) divalproex 500 mg tablet,extended 1,500 mg PO HS 06/03/21 04/08/22 History release 24 hr (Depakote ER) ferrous sulfate 325 mg (65 mg 325 mg PO Q OTHER DAY 06/03/21 04/08/22 History iron) tablet (Iron (ferrous sulfate)) quetiapine 400 mg tablet (Seroquel) 400 mg PO HS 06/03/21 04/08/22 History cyanocobalamin (vitamin B-12) 1,000 mcg PO BID 08/05/21 04/08/22 History 1,000 mcg tablet (Vitamin B-12) loratadine 10 mg tablet (Allergy 10 mg PO QAM 08/05/21 04/08/22 History Relief (loratadine)) thiamine HCl (vitamin B1) 100 mg 100 mg PO BID 10/11/21 04/08/22 History tablet (Vitamin B-1) levothyroxine 50 mcg tablet 50 mcg PO QAM 01/21/22 04/08/22 History ergocalciferol (vitamin D2) 1,250 1,250 mcg PO WK 02/02/22 04/08/22 History mcg (50,000 unit) capsule ondansetron HCl 4 mg tablet 4 mg PO Q8 PRN 02/02/22 04/08/22 History clonazepam 1 mg tablet 1 mg PO TID 02/25/22 04/08/22 History famotidine 20 mg tablet 20 mg PO DAILY 02/25/22 04/08/22 History glipizide 5 mg tablet 5 mg PO DAILY 30 Days #30 tab 03/22/22 04/08/22 Rx metformin 500 mg tablet 500 mg PO DAILY 04/05/22 04/08/22 History magnesium oxide 400 mg (241.3 mg 400 mg PO BID #60 tab 04/07/22 04/08/22 Rx magnesium) tablet Past Med/Surg History Medical History (Updated 04/08/22 @ 19:06 by Manda Thayer DO) Acute hyponatremia Anemia Anxiety and depression Arthritis Aspiration pneumonia Diabetes GERD (gastroesophageal reflux disease) History of pulmonary embolism Hyperparathyroidism Hypomagnesemia Hypoxia Iron deficiency anemia Irritable bowel syndrome Schizoaffective disorder Smoking Vomiting and diarrhea Weakness Surgical History History of section x2 Social History Smoking Status: Heavy tobacco smoker Tobacco Type: Cigarettes Cigarettes Per Day: 2-3 packs; Second Hand Exposure: No; Do You Dip or Chew Tobacco: No; Hx Alcohol Use: No Hx Substance Use: No Preferred Language: [place] Communication Ability: Effective 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 NAD. Cooperative. HEENT: Atraumatic, normocephalic. Pulm: CTAB A&P. -wheezes, -rales, -rhonchi. Symmetrical chest rise. No increase work of breathing. No respiratory distress. Cardiac: RRR, -mrg. Radial pulses intact and symmetrical. No LE edema. Abdominal: soft, non-tender, non-distended, BS x 4 Skin: warm, dry, no rash Results & Data Results & Data ([facility]) Vital Signs (Past 12 Hours) Vital Signs Temp Pulse Resp BP Pulse Ox 04/08/22 01:41 89 24 95 04/08/22 01:18 37 C 102 H 22 119/75 92 Code Status & VTE Plan Code Status full code - discussed with patient Supervising Physician Co-Signing Physician Notes Attending addendum: I have physically seen this patient, have supervised the medical residents activities, and agree with the H&P unless as otherwise noted. Assessment and Plan: Generalized weakness/status post fall- Progression of general debilitation, associated with frequent hospitalizations Consult PT/OT Will likely need inpatient rehab LR at 125 mils per hour x2 L Hypomagnesemia- Magnesium 1.6 on admission Replete with magnesium 2 g IV Recheck laboratories in a.m. Chronic diarrhea- Negative EGD and colonoscopies in the past Consider addition of cholestyramine if persist Remaining orders and notations as noted Resident Activity Tracking Resident Involvement: Resident Care Provided Care Provided: Adult Hospital Medicine (1) Schizoaffective disorder Schizoaffective disorder type: depressive Qualified Code(s): F25.1 - Schizoaffective disorder, depressive type (2) GERD (gastroesophageal reflux disease) Esophagitis presence: without esophagitis Qualified Code(s): K21.9 - Gastro- esophageal reflux disease without esophagitis
[2022-04-08 03:03] LABS: Albumin Level 3.4 gm/dl (3.4-5.0); BUN Creatinine Ratio 6.5 (10-20); Bilirubin,Total 0.4 mg/dl (0.2-1.0); Calcium 8.7 mg/dl (8.5-10.1); Creatinine Clr Calc Pharmacy 87.5 ml/min; Est GFR (African American) 94.6 ml/min; Est GFR (Non-African American) 81.6 ml/min; Globulin 3.3 gm/dl (2.5-4.0); Magnesium 1.6 mg/dl (1.7-2.4); Total Protein 6.7 gm/dl (6.0-8.3)
[2022-04-08] MEDS ORDERED: ONDANSETRON INJ 2 MG/ML 2 ML VIAL IV PRN (03:26)
[2022-04-08] MEDS: MAGNESIUM SULFATE / D5W 1 GM/100 ML BAG IV SCH ×2 (03:31→05:21)
[2022-04-08] MEDS: LACTATED RINGER'S 1,000 ML IV SCH ×2 (05:19→14:05)
--- NOTE | 2022-04-08 05:44 | Emergency Department Note ---
Impression & Plan Weakness, Hypomagnesemia Admit to the [facility] Hospitalist ED Provider Note NAME: SID JAVIER AGE: 66 SEX: F ARRIVES VIA: Ambulance INFORMANT: Patientand ems ED PROVIDER(S): Manda Thayer DO CHIEF COMPLAINT: Weakness PLAN: Disposition: Admit to the [facility] Condition: Stable MEDICAL DECISION MAKING: This is a 66-year-old female patient who was just discharged from the hospital yesterday who presents back to the emergency department with extreme weakness after she suffered a fall at home tonight. The patient had been just discharged from the hospital. She explains that she had felt increasing weakness prior to discharge and was unable to lift her legs off the bed. When she arrived at her home, she felt nausea and had vomiting upon eating. She had persistent diarrhea. While standing at home she fell to the ground but denies injuring herself upon falling. EMS was called to the home to help her back up. Her family told EMS they were unable to care for her at home. The patient remains hypomagnesemic and will require admission back to the hospital for generalized weakness. I discussed the case with the [facility] Hospitalist and they will evaluate for further management. Triage Nursing notes reviewed and agree with them. [Additional history obtained from] EMS [Prior medical records reviewed] including the records from her recent admission Vital Signs: reviewed and unremarkable Differential diagnosis: Electrolyte abnormality, hypoglycemia, UTI , head injury Diagnostics interpreted by me: ECG: This tachycardia at a rate of 102 with a right bundle branch block. There is no signs of ischemia or ectopy. Cardiac Monitoring: Sinus rhythm at a rate of 94 Laboratory studies: See below Imaging studies: As per my interpretation Chest x-ray: No acute pulmonary infiltrates or consolidations HPI: 66/F arrives for evaluation of weakness/fall. Patient was just discharged from the hospital earlier. According to the patient, she became increasingly weak throughout the day to the point that she was unable to stand on her own and fell to the ground. EMS was called to the home to help get her up. The patient denies injuring herself in any way during the fall. She states that she believes that she is so weak because everything that she eats she vomits back up. She does not believe that she is able to be at home since no one is able to take care of her. ROS: See above HPI for pertinent positives & negatives. A total of 10 systems reviewed and were otherwise negative. PAST MEDICAL HISTORY:See Below PAST SURGICAL HISTORY:See Below FAMILY HISTORY:See Below SOCIAL HISTORY:See Below HOME MEDICATIONS:See list ALLERGIES:See list VITALS:See Below PHYSICAL EXAMINATION: HEENT: Head - normocephalic and atraumatic. Pupils are equal, round, and reactive to light. Extraocular eye muscles are intact, and sclera are anicteric. Nose - moist nasal mucosa without discharge. Mouth - moist buccal mucosa. Oropharynx is nonerythematous and there is no tonsillar exudate or edema noted. Neck: Supple; no nuchal rigidity, cervical lymphadenopathy Heart: Heart sounds are extremely distant, regular rate and rhythm. There is a normal S1 and S2 with no murmurs, clicks, or gallops appreciated. Lungs: Clear to auscultation bilaterally with no wheezes, rales, or rhonchi. Abdomen: Soft, completely nontender, nondistended, with good bowel sounds. There are no palpable pulsatile masses or hepatosplenomegaly. There is no guarding, rigidity, or rebound noted. Extremities: No evidence of cyanosis, clubbing, or edema. There are easily palpable peripheral pulses. Skin: Pale, warm and dry with good turgor and no rashes. Neuro: The patient is able to move all 4 extremities but is quite weak in her lower extremities. ED COURSE: Times/Reassessments: 120: The patient was evaluated in room C4. A complete history and physical was performed. Laboratory studies were drawn as above. Previous electronic medical records were reviewed. An order was placed for continuous cardiac monitoring. The patient was in a normal sinus rhythm at a rate of 94. EKG was obtained. The patient was quite thirsty and was given Sprite to drink. I did review the chart from earlier today. Laboratory studies are pending and I discussed the case with the [facility] Hospitalist. Manda Thayer DO Past Med/Surg History Medical History (Updated 04/08/22 @ 19:06 by Manda Thayer DO) Acute hyponatremia Anemia Anxiety and depression Arthritis Aspiration pneumonia Diabetes GERD (gastroesophageal reflux disease) History of pulmonary embolism Hyperparathyroidism Hypomagnesemia Hypoxia Iron deficiency anemia Irritable bowel syndrome Schizoaffective disorder Smoking Vomiting and diarrhea Weakness Surgical History History of section x2 Social History Smoking Status: Heavy tobacco smoker Tobacco Type: Cigarettes Cigarettes Per Day: 2-3 packs; Second Hand Exposure: No; Do You Dip or Chew Tobacco: No; Hx Alcohol Use: No Hx Substance Use: No Preferred Language: Nauruan 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 Beliefs That Will Affect Care: None marital status: Current Living Situation: Family Current Living Situation Comment: Lives with Daughter How many Children do You have: 2 Other Information That Helps Us Care for You: No Feels Safe at Home: Yes Safety Concerns: Feels Safe At This Time Assistive Devices: Walker Allergies Allergies Allergy/AdvReac Type Severity Reaction Status Date / Time egg AdvReac Severe Vomiting Verified 04/08/22 01:44 Penicillins AdvReac Severe Vomiting Verified 04/08/22 01:44 Home Meds Home Medications Medication Instructions Recorded Confirmed buspirone 15 mg tablet 15 mg PO TID 10/25/20 04/08/22 gabapentin 100 mg capsule See Rx Instructions .ROUTE .COMPLEX 10/25/20 04/08/22 (Neurontin) mrwwfd-bihcpzxz-sxohykp 1 cap PO TID 10/25/20 04/08/22 12,000-38,000-60,000 unit capsule,delayed rel (Creon) pantoprazole 40 mg tablet,delayed 40 mg PO QAM 10/25/20 04/08/22 release (Protonix) rivaroxaban 20 mg tablet (Xarelto) 20 mg PO QAM 10/25/20 04/08/22 escitalopram oxalate 20 mg tablet 20 mg PO QAM 03/18/21 04/08/22 (Lexapro) ropinirole 0.5 mg tablet 0.5 mg PO HS 03/18/21 04/08/22 cholestyramine (with sugar) 4 gram 1 ea PO DAILY 06/03/21 04/08/22 powder for susp in a packet (Questran) divalproex 500 mg tablet,extended 1,500 mg PO HS 06/03/21 04/08/22 release 24 hr (Depakote ER) ferrous sulfate 325 mg (65 mg 325 mg PO Q OTHER DAY 06/03/21 04/08/22 iron) tablet (Iron (ferrous sulfate)) quetiapine 400 mg tablet (Seroquel) 400 mg PO HS 06/03/21 04/08/22 cyanocobalamin (vitamin B-12) 1,000 mcg PO BID 08/05/21 04/08/22 1,000 mcg tablet (Vitamin B-12) loratadine 10 mg tablet (Allergy 10 mg PO QAM 08/05/21 04/08/22 Relief (loratadine)) thiamine HCl (vitamin B1) 100 mg 100 mg PO BID 10/11/21 04/08/22 tablet (Vitamin B-1) levothyroxine 50 mcg tablet 50 mcg PO QAM 01/21/22 04/08/22 ergocalciferol (vitamin D2) 1,250 1,250 mcg PO WK 02/02/22 04/08/22 mcg (50,000 unit) capsule ondansetron HCl 4 mg tablet 4 mg PO Q8 PRN 02/02/22 04/08/22 clonazepam 1 mg tablet 1 mg PO TID 02/25/22 04/08/22 famotidine 20 mg tablet 20 mg PO DAILY 02/25/22 04/08/22 metformin 500 mg tablet 500 mg PO DAILY 04/05/22 04/08/22 Previous Rx's Medication Instructions Recorded glipizide 5 mg tablet 5 mg PO DAILY 30 Days #30 tab 03/22/22 magnesium oxide 400 mg (241.3 mg 400 mg PO BID #60 tab 04/07/22 magnesium) tablet Results & Data (ED) Vital Signs Vital Signs - 24 hr 04/08/22 01:18 04/08/22 01:41 04/08/22 02:10 Temperature 37 C Temperature Source Oral Pulse Rate 102 H 89 104 H Pulse Rate from SpO2 Sensor Pulse Rhythm Regular Regular Pulse Strength Normal Respiratory Rate 22 24 24 Respiratory Effort / Characteristics Non-Labored Respiratory Depth Normal Respiratory Pattern Regular Blood Pressure 119/75 Blood Pressure Mean 89 Blood Pressure Position Sitting Pulse Oximetry 92 95 95 Oxygen Delivery Method Room Air Nasal Cannula Room Air Oxygen Flow Rate 2 Sepsis Recent Fever Within 48 Hours No Sepsis New/Unexplained Change in Mental Status No Sepsis Action Taken by Nursing Physician Notified 04/08/22 02:15 04/08/22 02:30 04/08/22 02:40 Temperature Temperature Source Pulse Rate 101 H 100 H 100 H Pulse Rate from SpO2 Sensor 101 H Pulse Rhythm Pulse Strength Respiratory Rate 22 19 27 H Respiratory Effort / Characteristics Respiratory Depth Respiratory Pattern Blood Pressure Blood Pressure Mean Blood Pressure Position Pulse Oximetry 95 94 95 Oxygen Delivery Method Room Air Room Air Oxygen Flow Rate Sepsis Recent Fever Within 48 Hours Sepsis New/Unexplained Change in Mental Status Sepsis Action Taken by Nursing 04/08/22 02:50 04/08/22 03:00 04/08/22 03:10 Temperature Temperature Source Pulse Rate 102 H 101 H 101 H Pulse Rate from SpO2 Sensor 101 H 101 H 101 H Pulse Rhythm Pulse Strength Respiratory Rate 25 H 25 H 25 H Respiratory Effort / Characteristics Respiratory Depth Respiratory Pattern Blood Pressure Blood Pressure Mean Blood Pressure Position Pulse Oximetry 95 94 94 Oxygen Delivery Method Oxygen Flow Rate Sepsis Recent Fever Within 48 Hours Sepsis New/Unexplained Change in Mental Status Sepsis Action Taken by Nursing 04/08/22 03:20 Temperature Temperature Source Pulse Rate 99 H Pulse Rate from SpO2 Sensor 98 H Pulse Rhythm Pulse Strength Respiratory Rate 27 H Respiratory Effort / Characteristics Respiratory Depth Respiratory Pattern Blood Pressure Blood Pressure Mean Blood Pressure Position Pulse Oximetry 97 Oxygen Delivery Method Oxygen Flow Rate Sepsis Recent Fever Within 48 Hours Sepsis New/Unexplained Change in Mental Status Sepsis Action Taken by Nursing Laboratory Data Result diagrams: 04/08/22 02:12 04/08/22 02:12 Lab Results 04/08/22 04/08/22 04/08/22 Range/Units 02:12 02:12 02:12 WBC 6.98 (4.8-10.8) K/uL RBC 4.81 (4.2-5.4) M/uL Hgb 15.1 (12.0-16.0) g/dL Hct 44.0 (37-47) % MCV 91.5 (80-100) fL MCH 31.4 (25-34) pg MCHC 34.3 (32-36) g/dL RDW Std Deviation 42.8 (36.4-46.3) fL RDW Coeff of [place] 12.8 (11.5-14.5) % Plt Count 215 (130-400) K/uL MPV 9.9 (7.4-10.4) fL Immature Gran % (Auto) 0.4 % Neut % (Auto) 50.2 % Lymph % (Auto) 34.5 % [place] % (Auto) 12.9 % Eos % (Auto) 1.9 % Baso % (Auto) 0.1 % Neut # (Auto) 3.50 (1.4-6.5) K/uL Lymph # (Auto) 2.41 (1.2-3.4) K/uL [place] # (Auto) 0.90 H (0.11-0.59) K/uL Eos # (Auto) 0.13 (0-0.5) K/uL Baso # (Auto) 0.01 (0-0.2) K/uL Immature Gran # (Auto) 0.03 H (0.00-0.02) K/uL Sodium 135 L (136-145) mmol/L Potassium 4.0 (3.5-5.1) mmol/L Chloride 100 (98-107) mmol/L Carbon Dioxide 27 (21-32) mmol/L Anion Gap 8 (3-11) BUN 5 L (6-23) mg/dl Creatinine 0.77 (0.6-1.2) mg/dl Est Cr Clr Drug Dosing 87.5 ml/min Est GFR ( Amer) 94.6 ml/min Est GFR (Non-Af Amer) 81.6 ml/min BUN/Creatinine Ratio 6.5 L (10-20) Glucose 170 H (70-99(Fasting)) mg/dl Calcium 8.7 (8.5-10.1) mg/dl Magnesium 1.6 L (1.7-2.4) mg/dl Total Bilirubin 0.4 (0.2-1.0) mg/dl AST 12 L (13-39) U/L ALT 9 (7-52) U/L Alkaline Phosphatase 68 (34-104) U/L Total Protein 6.7 (6.0-8.3) gm/dl Albumin 3.4 (3.4-5.0) gm/dl Globulin 3.3 (2.5-4.0) gm/dl Albumin/Globulin Ratio 1.0 (0.9-2) TSH 2.666 (0.300-4.500) uIu/ml Administered Medications Acetaminophen (Acetaminophen 325 Mg Tab) 650 mg PO Q6H PRN PRN Reason: pain/fever Stop: 05/08/22 05:07 Last Admin: 04/08/22 12:28 Dose: 650 mg Documented by: [id number] Lipase/Protease/Amylase (Pancreaze (Lipase 4,200u) Cap) 3 cap PO TIDM MARY Stop: 05/08/22 07:59 Last Admin: 04/08/22 17:49 Dose: 3 cap Documented by: [id number] Admin: 04/08/22 12:28 Dose: 3 cap Documented by: [id number] Admin: 04/08/22 08:33 Dose: 3 cap Documented by: [id number] Buspirone HCl (Buspirone 15 Mg Tab) 15 mg PO TID MARY Stop: 05/08/22 08:59 Last Admin: 04/08/22 14:05 Dose: 15 mg Documented by: [id number] Admin: 04/08/22 08:31 Dose: 15 mg Documented by: [id number] Cholestyramine Resin (Cholestyramine Light 4 Gm Pkt) 4 gm PO DAILY@1100 [facility] Stop: 05/08/22 10:59 Last Admin: 04/08/22 11:31 Dose: 4 gm Documented by: [id number] Cyanocobalamin (Cyanocobalamin (B-12) 500 Mcg Tablet) 1,000 mcg PO BID MARY Stop: 05/08/22 08:59 Last Admin: 04/08/22 08:32 Dose: 1,000 mcg Documented by: [id number] Escitalopram Oxalate (Escitalopram Oxalate 20 Mg Tab) 20 mg PO QAM [facility] Stop: 05/08/22 08:59 Last Admin: 04/08/22 08:33 Dose: 20 mg Documented by: [id number] Famotidine (Famotidine 20 Mg Tab) 20 mg PO DAILY MARY Stop: 05/08/22 08:59 Last Admin: 04/08/22 08:33 Dose: 20 mg Documented by: [id number] Ferrous Sulfate (Ferrous Sulfate 325 Mg Tab) 325 mg PO Q2D@0900 [facility] Stop: 05/08/22 08:59 Last Admin: 04/08/22 08:34 Dose: 325 mg Documented by: [id number] Gabapentin (Gabapentin 100 Mg Cap) 100 mg PO DAILY@0900,1200 [facility] Stop: 05/08/22 08:59 Last Admin: 04/08/22 12:29 Dose: 100 mg Documented by: [id number] Admin: 04/08/22 08:33 Dose: 100 mg Documented by: [id number] Lactated Ringer's (Lr) 1,000 mls @ 75 mls/hr IV .[id number] [facility] Stop: 04/09/22 03:07 Last Admin: 04/08/22 14:05 Dose: 75 mls/hr Documented by: [id number] Infusion: 04/08/22 14:05 Dose: 75 mls/hr Documented by: [id number] Infusion: 04/08/22 08:36 Dose: 75 mls/hr Documented by: [id number] Admin: 04/08/22 05:19 Dose: 125 mls/hr Documented by: [id number] Levothyroxine Sodium (Levothyroxine Sodium 50 Mcg Tablet) 50 mcg PO DAILYBB [facility] Stop: 05/08/22 06:29 Last Admin: 04/08/22 08:33 Dose: 50 mcg Documented by: [id number] Loratadine (Loratadine 10 Mg Tab) 10 mg PO QAM [facility] Stop: 05/08/22 08:59 Last Admin: 04/08/22 08:32 Dose: 10 mg Documented by: [id number] Magnesium Oxide (Magnesium Oxide 400 Mg Tab) 400 mg PO BID [facility] Stop: 05/08/22 08:59 Last Admin: 04/08/22 08:32 Dose: 400 mg Documented by: [id number] Nicotine (Nicotine 21 Mg/24 Hr Tdsy) [facility] Stop: 05/08/22 08:59 Last Admin: 04/08/22 08:34 Dose: Not Given Documented by: [id number] Pantoprazole Sodium (Pantoprazole 40 Mg Tab) 40 mg PO QAM [facility] Stop: 05/08/22 08:59 Last Admin: 04/08/22 08:32 Dose: 40 mg Documented by: [id number] Rivaroxaban (Rivaroxaban 20 Mg Tab) 20 mg PO QAM [facility] Stop: 05/08/22 08:59 Last Admin: 04/08/22 08:34 Dose: 20 mg Documented by: [id number] Thiamine HCl (Thiamine Hcl 100 Mg Tab) 100 mg PO BID [facility] Stop: 05/08/22 08:59 Last Admin: 04/08/22 08:32 Dose: 100 mg Documented by: [id number] Discontinued Medications Clonazepam (Clonazepam 1 Mg Tab) 1 mg PO TID [facility] Stop: 05/08/22 08:59 Last Admin: 04/08/22 14:05 Dose: 1 mg Documented by: [id number] Admin: 04/08/22 08:35 Dose: 1 mg Documented by: [id number] Magnesium Sulfate/Dextrose (Magnesium Sulfate / D5w) 1 gm in 100 mls @ 50 mls/hr IV Q2H MARY Stop: 04/08/22 07:29 Last Infusion: 04/08/22 07:25 Dose: 0 mls/hr Documented by: [id number] Admin: 04/08/22 05:21 Dose: 50 mls/hr Documented by: [id number] Infusion: 04/08/22 05:21 Dose: 50 mls/hr Documented by: [id number] Admin: 04/08/22 03:31 Dose: 50 mls/hr Documented by: [id number] Discharge Plan Visit Data Chief Complaint: Fall Stated Complaint: WEAKNESS;FALL;LETHARGY ED Provider: Manda Thayer Discharge Problem: Weakness, Hypomagnesemia Patient Disposition: Admitted As Inpatient Discharge Instructions Interventions: ED Discharge Assessment Last Done: 04/08/22 04:37
[2022-04-08] MEDS ORDERED: NYSTATIN POWDER 15GM BTL EXT PRN (06:20)
--- NOTE | 2022-04-08 06:36 | XRay Report ---
XR chest 1V portable CLINICAL HISTORY: Weakness. COMPARISON STUDY: Chest radiograph March 19, 2022. FINDINGS: Patient is rotated. Lung volumes are mildly diminished, unchanged. Minimal left basilar opa city favors atelectasis. There is no consolidation to suggest pneumonia. There is no evidence for pul monary edema. Cardiomediastinal silhouette is normal. IMPRESSION: No acute cardiopulmonary findings. ACT 112: Negative or not required by law. Electronically signed by: Bryn East M.D. 04/08/2022 6:35 AM
[2022-04-08] MEDS: busPIRone 15 MG TAB PO SCH ×3 (08:31→21:59)
[2022-04-08] MEDS: MAGNESIUM OXIDE 400 MG TAB PO SCH ×2 (08:32→22:06)
[2022-04-08] MEDS: LORATADINE 10 MG TAB PO SCH (08:32)
[2022-04-08] MEDS: THIAMINE HCL 100 MG TAB PO SCH ×2 (08:32→22:07)
[2022-04-08] MEDS: CYANOCOBALAMIN (B-12) 500 MCG TABLET PO SCH ×2 (08:32→22:01)
[2022-04-08] MEDS: PANTOprazole 40 MG TAB PO SCH (08:32)
[2022-04-08] MEDS: LEVOTHYROXINE SODIUM 50 MCG TABLET PO SCH (08:33)
[2022-04-08] MEDS: FAMOTIDINE 20 MG TAB PO SCH (08:33)
[2022-04-08] MEDS: GABAPENTIN 100 MG CAP PO SCH ×3 (08:33→22:03)
[2022-04-08] MEDS: ESCITALOPRAM OXALATE 20 MG TAB PO SCH (08:33)
[2022-04-08] MEDS: PANCREAZE (LIPASE 4,200U) CAP PO SCH ×3 (08:33→17:49)
[2022-04-08] MEDS: FERROUS SULFATE 325 MG TAB PO SCH (08:34)
[2022-04-08] MEDS: RIVAROXABAN 20 MG TAB PO SCH (08:34)
[2022-04-08] MEDS: NICOTINE 21 MG/24 HR TDSY TD SCH (08:34)
[2022-04-08] MEDS: clonazePAM 1 MG TAB PO SCH ×2 (08:35→14:05)
[2022-04-08] MEDS: CHOLESTYRAMINE LIGHT 4 GM PKT PO SCH (11:31)
[2022-04-08] MEDS: ACETAMINOPHEN 325 MG TAB PO PRN (12:28)
--- NOTE | 2022-04-08 13:47 | Communication Note ---
Date of Service: April 08, 2022 The patient was seen and examined by me. She was discharged from the hospital yesterday, April 07 but apparently was too weak to ambulate effectively at home and subsequently readmitted. OT and PT services are requested. It appears she will need SNF placement.
--- NOTE | 2022-04-08 13:52 | Electrocardiogram Report ---
Test Reason : Blood Pressure : / mmHG Vent. Rate : 102 BPM Atrial Rate : 102 BPM P-R Int : 148 ms QRS Dur : 124 ms QT Int : 392 ms P-R-T Axes : 048 125 005 degrees QTc Int : 510 ms Sinus tachycardia Right bundle branch block Abnormal ECG When compared with ECG of 05-APR-2022 17:34, Criteria for Septal infarct are no longer Present Confirmed by Dave Real ([id number]) on 04/08/2022 1:51:43 PM Referred By: REFERRED SELF Confirmed By:Dave Real
[2022-04-08 15:29] LABS: Influenza A virus by PCR Negative (Neg); Influenza B virus by PCR Negative (Neg); RSV by PCR Negative (Neg); SARS CoV2 RNA(COVID-19) InHosp NEGATIVE (Negative)
[2022-04-08 17:39] LABS: HCO3 ABG 27 mmol/L (19-24); Oxygen Saturation ABG 95.8 % (90-95); PCO2 ABG 44 mmHg (35-46); PO2 ABG 79 mmHg (80-95)
[2022-04-08 17:40] LABS: Allen Test Pos (Pos)
[2022-04-08] MEDS: QUEtiapine FUMARATE 200 MG TAB PO SCH (21:59)
[2022-04-08] MEDS: DIVALPROEX EXTENDED RELEASE 500 MG TAB PO SCH (22:04)
[2022-04-08] MEDS: rOPINIRole HCL 0.25 MG TABLET PO SCH (22:08)
--- NOTE | 2022-04-09 00:22 | Billing Data ---
Date of Service April 09, 2022 Coding Level of Care Code 31413 Initial Inpt Care Lvl 2
[2022-04-09] MEDS: LEVOTHYROXINE SODIUM 50 MCG TABLET PO SCH (06:14)
[2022-04-09 07:56] LABS: BUN Creatinine Ratio 8.9 (10-20); Calcium 8.5 mg/dl (8.5-10.1); Creatinine Clr Calc Pharmacy 119.8 ml/min; Est GFR (African American) 114.2 ml/min; Est GFR (Non-African American) 98.5 ml/min; Magnesium 1.8 mg/dl (1.7-2.4); Potassium 4.2 mmol/L (3.5-5.1)
[2022-04-09] MEDS ORDERED: clonazePAM 1 MG TAB PO SCH (09:00)
[2022-04-09] MEDS: NICOTINE 21 MG/24 HR TDSY TD SCH (09:03)
[2022-04-09] MEDS: LORATADINE 10 MG TAB PO SCH (09:11)
[2022-04-09] MEDS: PANCREAZE (LIPASE 4,200U) CAP PO SCH ×3 (09:11→16:46)
[2022-04-09] MEDS: GABAPENTIN 100 MG CAP PO SCH ×3 (09:11→20:58)
[2022-04-09] MEDS: busPIRone 15 MG TAB PO SCH ×3 (09:11→20:58)
[2022-04-09] MEDS: MAGNESIUM OXIDE 400 MG TAB PO SCH ×2 (09:11→20:58)
[2022-04-09] MEDS: FAMOTIDINE 20 MG TAB PO SCH (09:11)
[2022-04-09] MEDS: THIAMINE HCL 100 MG TAB PO SCH ×2 (09:11→20:57)
[2022-04-09] MEDS: CYANOCOBALAMIN (B-12) 500 MCG TABLET PO SCH ×2 (09:11→20:58)
[2022-04-09] MEDS: ESCITALOPRAM OXALATE 20 MG TAB PO SCH (09:12)
[2022-04-09] MEDS: PANTOprazole 40 MG TAB PO SCH (09:12)
[2022-04-09] MEDS: RIVAROXABAN 20 MG TAB PO SCH (09:12)
[2022-04-09] MEDS: CHOLESTYRAMINE LIGHT 4 GM PKT PO SCH (11:27)
--- NOTE | 2022-04-09 14:07 | Hospitalist Progress Note ---
Date of Service April 09, 2022 Assessment & Plan (1) Weakness: Plan: Tierra Gil is a 66-year-old female with history of diabetes, GERD, h/o PE on Xarelto, anxiety/depression, schizoaffective disorder, and GERD who presented to [facility] ED on 04/08 for a mechanical fall and generalized weakness, shortly after being discharged on 04/07. Generalized Weakness; Nausea; Diarrhea Suspected viral gastroenteritis which does not appear to be a significant issue at this time. Of note the patient has had significant work-up for chronic nausea/diarrhea including EGD/colonoscopy which have been unremarkable. Continue home Creon and cholestyramine (h/o fecal fat) Hypomagnesemia Mg 1.6 on presentation - likely due to diarrhea. Now corrected. Continue home daily Magnesium Chronic Medical Conditions: GERD: continue home Protonix and Famotidine RLS: continue home Ropinirole H/o PE: continue home Xarelto Schizoaffective disorder; Anxiety; Depression: continue home Depakote, Seroquel, Buspar, Lexapro, and Clonazepam. Clonazepam has been down titrated due to sedation T2DM: A1c 9.4 in 03/2022. Metformin recently stopped due to chronic lactic acidosis. Hold other meds and utilize SSI while hospitalized Hypothyroidism: TSH 3.48. Continue home Synthroid Iron-deficiency anemia: Hgb 15.1 on admission . Continue home ferrous sulfate DVT Prophylaxis: Xarelto Code Status: full code Disposition: Anticipate discharge to SNF. She is medically stable for discharge. (2) Vomiting and diarrhea: (3) GERD (gastroesophageal reflux disease): (4) Schizoaffective disorder: (5) Anxiety and depression: (6) Microcytic anemia: (7) History of pulmonary embolism: (8) Lactic acidosis: (9) Restless leg: (10) Tobacco use: (11) Hypothyroid: Admission and Anticipated Discharge Date Admission Date: April 08, 2022 Subjective Alert and oriented. She is more alert with down titration of Klonopin dosage. Oral intake is adequate. IV fluids discontinued. Mild hypomagnesemia has been corrected. Oxygen saturations satisfactory on room air. Review of Systems Review of Systems: Constitutional-no fever or chills ENT-no blurred vision, no double vision, no epistaxis, no sore throat Respiratory-no cough, no wheezing, no shortness of breath Cardiac-no palpitations, no chest pain, no syncope GI-no nausea, vomiting, diarrhea, melena, hematochezia -no urinary retention, no urinary incontinence, no dysuria, no hematuria Musculoskeletal-no joint pain, no muscle tenderness Skin-no bruising, no rashes, no pruritus Neuro-no isolated weakness, no paresthesia, no weakness Psych-no depression, no anxiety Physical Exam Physical Exam: General-alert and oriented x3, no fevers, no chills HEENT-head atraumatic and normocephalic, TMs intact bilaterally, pupils equal and reactive to light, extraocular muscles intact Neck-no lymphadenopathy or thyromegaly, trachea midline Chest-clear to auscultation percussion. No rales wheezing or rhonchi Cardiac-regular rate and rhythm, normal S1 and S2, no murmurs Abdomen-normal bowel sounds, nontender, no hepatosplenomegaly Extremities-no cyanosis, clubbing, or edema Neuro-cranial nerves II through XII intact, motor and sensory function within normal limits, strength symmetrical , no focal deficits Psych-normal affect, normal mood Results & Data Results & Data ([facility]) Vital Signs (Past 12 Hours) Vital Signs Temp Pulse Resp BP Pulse Ox 04/09/22 12:32 36.9 C 92 H 18 112/74 90 04/09/22 07:20 36.9 C 85 18 126/82 93 04/09/22 03:36 36.8 C 80 16 115/68 93 Laboratory Results 04/08/22 02:12 04/09/22 06:52 PG Care Time/CCT Total # of Minutes Spent Total Time Spent with Patient: Total time spent is greater than 50% in coordination of care (as documented) at patient's floor/unit and/or counseling patient: Coding Level of Care Code 10372 Subseq Hosp Care Lvl 3 Diagnoses Weakness R53.1 Vomiting and diarrhea R11.10; R19.7 GERD (gastroesophageal reflux disease) K21.9 Esophagitis presence: without esophagitis Schizoaffective disorder F25.1 Schizoaffective disorder type: depressive Anxiety and depression F41.9; F32.9 Microcytic anemia D50.9 History of pulmonary embolism Z86.711 Lactic acidosis E87.2 Restless leg G25.81 Tobacco use Z72.0 Hypothyroid E03.9 (1) GERD (gastroesophageal reflux disease) Esophagitis presence: without esophagitis Qualified Code(s): K21.9 - Gastro- esophageal reflux disease without esophagitis (2) Schizoaffective disorder Schizoaffective disorder type: depressive Qualified Code(s): F25.1 - Schizoaffective disorder, depressive type
[2022-04-09] MEDS: QUEtiapine FUMARATE 200 MG TAB PO SCH (20:57)
[2022-04-09] MEDS: DIVALPROEX EXTENDED RELEASE 500 MG TAB PO SCH (20:57)
[2022-04-09] MEDS: rOPINIRole HCL 0.25 MG TABLET PO SCH (20:57)
[2022-04-09] MEDS: clonazePAM 0.5 MG TAB PO SCH (21:00)
[2022-04-09] MEDS ORDERED: DEXTROSE 50% 50 ML SYRINGE IV PRN (21:37)
[2022-04-09] MEDS ORDERED: CARBOHYDRATES FOR HYPOGLYCEMIA PO PRN (21:37)
[2022-04-09] MEDS ORDERED: GLUCOSE 40% GEL 15 GM TUBE PO PRN (21:37)
[2022-04-09] MEDS ORDERED: GLUCOSE 10 TABS/TUBE PO PRN (21:37)
[2022-04-09] MEDS ORDERED: GLUCAGON FOR INJ 1 MG VIAL SQ PRN (21:37)
[2022-04-09] MEDS ORDERED: INSULIN ASPART PER UNIT SC ONE (22:00)
[2022-04-10] MEDS: LEVOTHYROXINE SODIUM 50 MCG TABLET PO SCH (05:53)
[2022-04-10 07:20] LABS: BUN Creatinine Ratio 7.8 (10-20); Creatinine Clr Calc Pharmacy 104.8 ml/min; Est GFR (African American) 109.3 ml/min; Est GFR (Non-African American) 94.3 ml/min; Magnesium 1.7 mg/dl (1.7-2.4)
[2022-04-10] MEDS: MAGNESIUM OXIDE 400 MG TAB PO SCH ×2 (08:34→20:25)
[2022-04-10] MEDS: busPIRone 15 MG TAB PO SCH ×3 (08:34→20:24)
[2022-04-10] MEDS: THIAMINE HCL 100 MG TAB PO SCH ×2 (08:35→20:23)
[2022-04-10] MEDS: LORATADINE 10 MG TAB PO SCH (08:35)
[2022-04-10] MEDS: CYANOCOBALAMIN (B-12) 500 MCG TABLET PO SCH ×2 (08:35→20:26)
[2022-04-10] MEDS: ESCITALOPRAM OXALATE 20 MG TAB PO SCH (08:35)
[2022-04-10] MEDS: FERROUS SULFATE 325 MG TAB PO SCH (08:36)
[2022-04-10] MEDS: RIVAROXABAN 20 MG TAB PO SCH (08:36)
[2022-04-10] MEDS: PANCREAZE (LIPASE 4,200U) CAP PO SCH ×3 (08:37→17:31)
[2022-04-10] MEDS: FAMOTIDINE 20 MG TAB PO SCH (08:37)
[2022-04-10] MEDS: PANTOprazole 40 MG TAB PO SCH (08:37)
[2022-04-10] MEDS: GABAPENTIN 100 MG CAP PO SCH ×3 (08:40→20:24)
[2022-04-10] MEDS: NICOTINE 21 MG/24 HR TDSY TD SCH (08:41)
[2022-04-10] MEDS: clonazePAM 0.5 MG TAB PO SCH (08:48)
[2022-04-10] MEDS: INSULIN ASPART PER UNIT SC SCH ×4 (08:49→20:40)
[2022-04-10] MEDS: ACETAMINOPHEN 325 MG TAB PO PRN (09:52)
[2022-04-10] MEDS: CHOLESTYRAMINE LIGHT 4 GM PKT PO SCH (10:49)
--- NOTE | 2022-04-10 12:00 | Hospitalist Progress Note ---
Date of Service April 10, 2022 Assessment & Plan (1) Weakness: Plan: Tierra Gil is a 66-year-old female with history of diabetes, GERD, h/o PE on Xarelto, anxiety/depression, schizoaffective disorder, and GERD who presented to [facility] ED on 04/08 for a mechanical fall and generalized weakness, shortly after being discharged on 04/07. Generalized Weakness; Nausea; Diarrhea Suspected viral gastroenteritis which does not appear to be a significant issue at this time. Of note the patient has had significant work-up for chronic nausea/diarrhea including EGD/colonoscopy which have been unremarkable. Continue home Creon and cholestyramine (h/o fecal fat) Hypomagnesemia Mg 1.6 on presentation - likely due to diarrhea. Now corrected. Continue home daily Magnesium Chronic Medical Conditions: GERD: continue home Protonix and Famotidine RLS: continue home Ropinirole H/o PE: continue home Xarelto Schizoaffective disorder; Anxiety; Depression: continue home Depakote, Seroquel, Buspar, Lexapro, and Clonazepam. Clonazepam has been previously down titrated this admission due to sedation. She continues to have lethargy after taking the Klonopin so it will be discontinued indefinitely. T2DM: A1c 9.4 in 03/2022. Metformin recently stopped due to chronic lactic acidosis. Hold other meds and utilize SSI while hospitalized Hypothyroidism: TSH 3.48. Continue home Synthroid Iron-deficiency anemia: Hgb 15.1 on admission . Continue home ferrous sulfate DVT Prophylaxis: Xarelto Code Status: full code Disposition: Anticipate discharge to SNF. She is medically stable for discharg e. (2) Vomiting and diarrhea: (3) GERD (gastroesophageal reflux disease): (4) Schizoaffective disorder: (5) Anxiety and depression: (6) Microcytic anemia: (7) History of pulmonary embolism: (8) Lactic acidosis: (9) Restless leg: (10) Tobacco use: (11) Hypothyroid: Admission and Anticipated Discharge Date Admission Date: April 08, 2022 Subjective She is still getting lethargic from the Klonopin even though the dosage has been decreased. We will discontinue Klonopin since it is not well-tolerated. Magnesium was low normal at 1.7. She is complaining of a headache today. Eventual discharge to SNF when arrangements are finalized, probably after the holiday weekend. Review of Systems Review of Systems: Constitutional-no fever or chills ENT-no blurred vision, no double vision, no epistaxis, no sore throat Respiratory-no cough, no wheezing, no shortness of breath Cardiac-no palpitations, no chest pain, no syncope GI-no nausea, vomiting, diarrhea, melena, hematochezia -no urinary retention, no urinary incontinence, no dysuria, no hematuria Musculoskeletal-no joint pain, no muscle tenderness Skin-no bruising, no rashes, no pruritus Neuro-no isolated weakness, no paresthesia, no weakness Psych-no depression, no anxiety Physical Exam Physical Exam: General-alert and oriented x3, no fevers, no chills HEENT-head atraumatic and normocephalic, TMs intact bilaterally, pupils equal and reactive to light, extraocular muscles intact Neck-no lymphadenopathy or thyromegaly, trachea midline Chest-clear to auscultation percussion. No rales wheezing or rhonchi Cardiac-regular rate and rhythm, normal S1 and S2, no murmurs Abdomen-normal bowel sounds, nontender, no hepatosplenomegaly Extremities-no cyanosis, clubbing, or edema Neuro-cranial nerves II through XII intact, motor and sensory function within normal limits, strength symmetrical , no focal deficits Psych-normal affect, normal mood Results & Data Results & Data ([facility]) Vital Signs (Past 12 Hours) Vital Signs Temp Pulse Resp BP Pulse Ox 04/10/22 08:32 77 104/73 04/10/22 06:00 37 C 84 18 130/82 93 Laboratory Results 04/08/22 02:12 04/10/22 06:35 PG Care Time/CCT Total # of Minutes Spent Total Time Spent with Patient: Total time spent is greater than 50% in coordination of care (as documented) at patient's floor/unit and/or counseling patient: Coding Level of Care Code 89737 Subseq Hosp Care Lvl 3 Diagnoses Weakness R53.1 Vomiting and diarrhea R11.10; R19.7 GERD (gastroesophageal reflux disease) K21.9 Esophagitis presence: without esophagitis Schizoaffective disorder F25.1 Schizoaffective disorder type: depressive Anxiety and depression F41.9; F32.9 Microcytic anemia D50.9 History of pulmonary embolism Z86.711 Lactic acidosis E87.2 Restless leg G25.81 Tobacco use Z72.0 Hypothyroid E03.9 (1) GERD (gastroesophageal reflux disease) Esophagitis presence: without esophagitis Qualified Code(s): K21.9 - Gastro- esophageal reflux disease without esophagitis (2) Schizoaffective disorder Schizoaffective disorder type: depressive Qualified Code(s): F25.1 - Schizoaffective disorder, depressive type
[2022-04-10] MEDS: rOPINIRole HCL 0.25 MG TABLET PO SCH (20:22)
[2022-04-10] MEDS: QUEtiapine FUMARATE 200 MG TAB PO SCH (20:23)
[2022-04-10] MEDS: DIVALPROEX EXTENDED RELEASE 500 MG TAB PO SCH (20:24)
[2022-04-11] MEDS: ACETAMINOPHEN 325 MG TAB PO PRN ×2 (02:17→23:42)
[2022-04-11] MEDS: LEVOTHYROXINE SODIUM 50 MCG TABLET PO SCH ×2 (06:12→06:13)
[2022-04-11 06:54] LABS: BUN Creatinine Ratio 10.4 (10-20); Calcium 9.6 mg/dl (8.5-10.1); Creatinine Clr Calc Pharmacy 100.1 ml/min; Est GFR (African American) 107.7 ml/min; Est GFR (Non-African American) 92.9 ml/min; Magnesium 1.7 mg/dl (1.7-2.4); Potassium 4.6 mmol/L (3.5-5.1)
[2022-04-11] MEDS: PANCREAZE (LIPASE 4,200U) CAP PO SCH ×3 (10:31→18:02)
[2022-04-11] MEDS: CYANOCOBALAMIN (B-12) 500 MCG TABLET PO SCH ×2 (10:32→20:10)
[2022-04-11] MEDS: THIAMINE HCL 100 MG TAB PO SCH ×2 (10:32→20:17)
[2022-04-11] MEDS: MAGNESIUM OXIDE 400 MG TAB PO SCH ×2 (10:32→20:16)
[2022-04-11] MEDS: GABAPENTIN 100 MG CAP PO SCH ×3 (10:32→20:12)
[2022-04-11] MEDS: PANTOprazole 40 MG TAB PO SCH (10:32)
[2022-04-11] MEDS: busPIRone 15 MG TAB PO SCH ×3 (10:32→20:12)
[2022-04-11] MEDS: LORATADINE 10 MG TAB PO SCH (10:32)
[2022-04-11] MEDS: ESCITALOPRAM OXALATE 20 MG TAB PO SCH (10:32)
[2022-04-11] MEDS: RIVAROXABAN 20 MG TAB PO SCH (10:33)
[2022-04-11] MEDS: NICOTINE 21 MG/24 HR TDSY TD SCH (10:33)
[2022-04-11] MEDS: INSULIN ASPART PER UNIT SC SCH ×4 (10:39→21:23)
[2022-04-11] MEDS: CHOLESTYRAMINE LIGHT 4 GM PKT PO SCH ×2 (10:40→13:13)
[2022-04-11] MEDS: FAMOTIDINE 20 MG TAB PO SCH (11:55)
[2022-04-11 12:47] LABS: Base Excess VBG 4.6 mEq/L; Oxygen Saturation VBG 82.9 %; pH VBG 7.39 (7.36-7.41)
--- NOTE | 2022-04-11 14:15 | Hospitalist Progress Note ---
Date of Service April 11, 2022 Assessment & Plan (1) Weakness: Plan: Admitted with generalized weakness following mechanical fall at home; possibly related to viral gastroenteritis. PT recommending inpatient rehab - discharge to [facility] once she is medically stable. (2) Lethargy: Plan: Unclear etiology; medication induced vs. infection vs. other. She does take Buspar 15 mg TID, Depakote 1500 mg qhs, Lexapro 20 mg daily, Seroquel 400 mg qhs. Ammonia level 59, Depakote level 90. Home Klonopin discontinued on 04/10 due to lethargy but she has not had significant improvement. CXR 04/08 negative for infection; Urine culture 04/05 negative. Will order repeat u/a + urine culture today. Psych consult to evaluate medication list, in setting of lethargy. (3) Vomiting and diarrhea: Plan: Now improved, related to viral gastroenteritis. Continue Creon and Questran as prescribed. (4) GERD (gastroesophageal reflux disease): Plan: Continue Protonix daily & Pepcid 20 daily. (5) Schizoaffective disorder: Plan: Continue home meds. Discontinued Klonopin due to acute lethargy. (6) Anxiety and depression: Plan: Continue home meds, discontinued Klonopin. (7) Microcytic anemia: Plan: Continue Ferrous sulfate 325 mg QOD. (8) History of pulmonary embolism: Plan: Continue Xarelto 20 mg daily. (9) Lactic acidosis: Plan: Stable. (10) Restless leg: Plan: Continue Requip. (11) Tobacco use: Plan: Nicotine patch daily. (12) Hypothyroid: Plan: Levothyroxine 50 mcg daily. TSH 2.66 on 04/08. (13) Diabetes: Plan: Hgb A1C 9.4 on 03/20/22. Holding home Glipizide and Metformin. SSI coverage ac/hs. (14) Neuropathy: Plan: Neurontin 100 mg qAM and afternoon, 200 mg qhs. Vitamin b12 1,000 mcg daily. Plan: DVT ppx: Xarelto 20 mg daily. Continue home Vit D weekly, Mag oxide 400 mg BID, Thiamine 100 mg BID. Discharge to [facility] once medically stable, pending improvement in lethargy. Admission and Anticipated Discharge Date Admission Date: April 08, 2022 Supervising Physician Co-Signing Physician Notes Attending Attestation: Pt seen/examined, chart reviewed, care plan d/w CLARK Raymundo. I agree w/ the lopez components of her documentation. Pt stated during my visit "why am I always so tired? I can barely stay awake." She is so fatigued she can hardly sit up in bed. VSS, no fever gen - morbidly obese, NAD, sleepy but able to answer questions neck - no JVD mouth - MMM heart - RRR, s1 s2 lungs - CTA b/l abd - soft NT ND BS+ neuro - no asterixis; no proximal muscle weakness of legs or arms ext - pulses 2+ b/l A/P: 1. extreme fatigue/lethargy - check depakote level; check ammonia level; check VBG. If all normal/negative -- check ua and urine cx. If negative - then ask psych to see. On MULTIPLE psychotropic meds and HIGH doses of seroquel which could contribute to sleepiness. 2. morbid obesity - BMI 45 Elmo Gonzalez MD Subjective Ms. Gil continues to be lethargic, despite discontinuation of Klonopin on 04/10/22. She does take other meds at home, including Buspar 15 TID, Depakote 1500 mg qhs, Lexapro 20 mg daily, Seroquel 400 mg daily. Depakote level is 90; Ammonia level 59. Will hold discharge to SNF due to ongoing lethargy. Review of Systems Review of Systems: Constitutional: +Lethargy; Negative for weight loss, night sweats, or fever Eyes: Negative for event change of vision ENT: Negative for epistaxis, nasal discharge, sore throat, or deafness Cardiovascular: Negative for anginal type chest pain, palpitations, dizziness, diaphoresis Respiratory: Negative for new shortness of breath,hemoptysis, or purulent cough Gastrointestinal: Negative for diarrhea, hematemesis, melena, nausea, vomiting, or dyspepsia Integumentary (skin): Negative for rash or jaundice discoloration Genitourinary: Negative for urinary frequency, hematuria, or dysuria Neurological: Negative for weakness, seizure activity, headache, or dizziness Lymphatic/Hematologic: Negative for petechiae, bleeding or new adenopathy Musculoskeletal: Negative for new joint or back pain Allergic/Immunologic: Negative for unusual rash or pruritis Physical Exam Physical Exam: Constitutional: Pleasant elderly female, no acute distress. Does appear mildly lethargic. Respiratory: Lung sounds were generally clear bilaterally. Cardiovascular: Heart was RRR without significant murmur, gallops or rubs. Gastrointestinal: No palpable hepatic or splenomegaly. The abdomen was soft with normal bowel sounds. Lymphatic system: There was no palpable peripheral lymphadenopathy. Musculoskeletal System: The musculoskeletal system seemed concordant with age. Skin: The skin was negative for jaundice. Results & Data Results & Data ([facility]) Vital Signs (Past 12 Hours) Vital Signs Temp Pulse Resp BP Pulse Ox 04/11/22 07:51 36.3 C L 69 16 113/68 92 Laboratory Results 04/11/22 04/11/22 04/11/22 Range/Units 12:21 12:21 12:21 VBG pH 7.39 (7.36-7.41) VBG pCO2 52 H (38-50) mmHg VBG pO2 49 mmHg VBG HCO3 31 mmol/L VBG O2 Saturation 82.9 % VBG Base Excess 4.6 mEq/L Barometric Pressure 727.5 mm/Hg Sodium (136-145) mmol/L Potassium (3.5-5.1) mmol/L Chloride (98-107) mmol/L Carbon Dioxide (21-32) mmol/L Anion Gap (3-11) BUN (6-23) mg/dl Creatinine (0.6-1.2) mg/dl Est Cr Clr Drug Dosing ml/min Est GFR ( Amer) ml/min Est GFR (Non-Af Amer) ml/min BUN/Creatinine Ratio (10-20) Glucose (70-99(Fasting)) mg/dl POC Glucose (70-99) mg/dl Calcium (8.5-10.1) mg/dl Magnesium (1.7-2.4) mg/dl Ammonia 59.0 (18-72) umol/L Valproic Acid 90 (50-100) mcg/ml SARS-CoV-2, RNA, NAAT (NEGATIVE) 04/11/22 04/11/22 04/11/22 Range/Units 12:07 11:10 08:10 VBG pH (7.36-7.41) VBG pCO2 (38-50) mmHg VBG pO2 mmHg VBG HCO3 mmol/L VBG O2 Saturation % VBG Base Excess mEq/L Barometric Pressure mm/Hg Sodium (136-145) mmol/L Potassium (3.5-5.1) mmol/L Chloride (98-107) mmol/L Carbon Dioxide (21-32) mmol/L Anion Gap (3-11) BUN (6-23) mg/dl Creatinine (0.6-1.2) mg/dl Est Cr Clr Drug Dosing ml/min Est GFR ( Amer) ml/min Est GFR (Non-Af Amer) ml/min BUN/Creatinine Ratio (10-20) Glucose (70-99(Fasting)) mg/dl POC Glucose 219 H 198 H (70-99) mg/dl Calcium (8.5-10.1) mg/dl Magnesium (1.7-2.4) mg/dl Ammonia (18-72) umol/L Valproic Acid (50-100) mcg/ml SARS-CoV-2, RNA, NAAT NEGATIVE (NEGATIVE) 04/11/22 04/10/22 04/10/22 Range/Units 05:50 20:06 16:54 VBG pH (7.36-7.41) VBG pCO2 (38-50) mmHg VBG pO2 mmHg VBG HCO3 mmol/L VBG O2 Saturation % VBG Base Excess mEq/L Barometric Pressure mm/Hg Sodium 137 (136-145) mmol/L Potassium 4.6 (3.5-5.1) mmol/L Chloride 100 (98-107) mmol/L Carbon Dioxide 30 (21-32) mmol/L Anion Gap 7 (3-11) BUN 7 (6-23) mg/dl Creatinine 0.67 (0.6-1.2) mg/dl Est Cr Clr Drug Dosing 100.1 ml/min Est GFR ( Amer) 107.7 ml/min Est GFR (Non-Af Amer) 92.9 ml/min BUN/Creatinine Ratio 10.4 (10-20) Glucose 225 H (70-99(Fasting)) mg/dl POC Glucose 235 H 224 H (70-99) mg/dl Calcium 9.6 (8.5-10.1) mg/dl Magnesium 1.7 (1.7-2.4) mg/dl Ammonia (18-72) umol/L Valproic Acid (50-100) mcg/ml SARS-CoV-2, RNA, NAAT (NEGATIVE) PG Care Time/CCT Total # of Minutes Spent Total Time Spent with Patient: Total time spent is greater than 50% in coordination of care (as documented) at patient's floor/unit and/or counseling patient: [place] [address] Subseq Hosp Care Lvl 2 Patient Type Established Diagnoses Weakness R53.1 Vomiting and diarrhea R11.10; R19.7 GERD (gastroesophageal reflux disease) K21.9 Esophagitis presence: without esophagitis Schizoaffective disorder F25.1 Schizoaffective disorder type: depressive Anxiety and depression F41.9; F32.9 Microcytic anemia D50.9 History of pulmonary embolism Z86.711 Lactic acidosis E87.2 Restless leg G25.81 Tobacco use Z72.0 Hypothyroid E03.9 Lethargy R53.83 Diabetes E11.9; Z79.4 Diabetes mellitus complication status: without complication 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 mellitus 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 helper insulin use: with longterm use Diabetes mellitus type: type 2 Neuropathy G62.9 (1) Diabetes Diabetes mellitus complication status: without complication Diabetes mellitus longterm insulin use: with longterm use Diabetes mellitus type: type 2 Qualified Code(s): E11.9 - Type 2 diabetes mellitus without complications; Z79.4 - jail (current) use of insulin (2) Schizoaffective disorder Schizoaffective disorder type: depressive Qualified Code(s): F25.1 - Schizoaffective disorder, depressive type (3) GERD (gastroesophageal reflux disease) Esophagitis presence: without esophagitis Qualified Code(s): K21.9 - Gastro- esophageal reflux disease without esophagitis
[2022-04-11 17:32] LABS: Appearance Urine Clear (Clear); Bilirubin Urine Negative (Negative); Blood Urine Negative (Negative); Color Urine Yellow; Glucose Urine UA Negative (Negative); Ketones Urine Negative (Negative); Leukocyte Esterase Urine Negative (Negative); Nitrite Urine Negative (Negative); Protein Urine Negative (Negative); Specific Gravity Urine 1.012 (1.000-1.030); Urobilinogen Urine Negative (Negative)
[2022-04-11] MEDS: rOPINIRole HCL 0.25 MG TABLET PO SCH (20:11)
[2022-04-11] MEDS: QUEtiapine FUMARATE 200 MG TAB PO SCH (20:13)
[2022-04-11] MEDS: DIVALPROEX EXTENDED RELEASE 500 MG TAB PO SCH (20:16)
[2022-04-12 09:04] LABS: Hematocrit (blood only) 37.7 % (37-47); Hemoglobin 13.1 g/dL (12.0-16.0); Mean Corpuscular Hemoglobin 32.2 pg (25-34); Mean Corpuscular Hgb Conc 34.7 g/dL (32-36); Mean Corpuscular Volume 92.6 fL (80-100); Mean Platelet Volume 9.5 fL (7.4-10.4); Platelet Count 228 K/uL (130-400); RDW Coefficient of Variation 12.4 % (11.5-14.5); RDW Standard Deviation 41.9 fL (36.4-46.3); Red Blood Count 4.07 M/uL (4.2-5.4); White Blood Count 8.16 K/uL (4.8-10.8)
[2022-04-12] MEDS: INSULIN ASPART PER UNIT SC SCH ×4 (09:22→21:27)
[2022-04-12] MEDS: PANCREAZE (LIPASE 4,200U) CAP PO SCH ×3 (09:27→16:50)
[2022-04-12] MEDS: CYANOCOBALAMIN (B-12) 500 MCG TABLET PO SCH ×2 (09:28→21:05)
[2022-04-12] MEDS: RIVAROXABAN 20 MG TAB PO SCH (09:28)
[2022-04-12] MEDS: LORATADINE 10 MG TAB PO SCH (09:28)
[2022-04-12] MEDS: busPIRone 15 MG TAB PO SCH ×3 (09:29→21:06)
[2022-04-12] MEDS: GABAPENTIN 100 MG CAP PO SCH ×3 (09:29→21:06)
[2022-04-12] MEDS: MAGNESIUM OXIDE 400 MG TAB PO SCH ×2 (09:29→21:07)
[2022-04-12] MEDS: PANTOprazole 40 MG TAB PO SCH (09:30)
[2022-04-12] MEDS: NICOTINE 21 MG/24 HR TDSY TD SCH (09:30)
[2022-04-12] MEDS: FERROUS SULFATE 325 MG TAB PO SCH (09:30)
[2022-04-12] MEDS: THIAMINE HCL 100 MG TAB PO SCH ×2 (09:30→21:06)
[2022-04-12] MEDS: ESCITALOPRAM OXALATE 20 MG TAB PO SCH (09:31)
[2022-04-12 09:37] LABS: Albumin Globulin Ratio 1.1 (0.9-2); BUN Creatinine Ratio 12.2 (10-20); Bilirubin,Total 0.3 mg/dl (0.2-1.0); Calcium 9.1 mg/dl (8.5-10.1); Creatinine Clr Calc Pharmacy 81.8 ml/min; Est GFR (African American) 87.6 ml/min; Est GFR (Non-African American) 75.6 ml/min; Globulin 2.8 gm/dl (2.5-4.0); Potassium 4.3 mmol/L (3.5-5.1); Total Protein 5.8 gm/dl (6.0-8.3)
[2022-04-12] MEDS: FAMOTIDINE 20 MG TAB PO SCH (09:54)
[2022-04-12] MEDS: CHOLESTYRAMINE LIGHT 4 GM PKT PO SCH (11:20)
--- NOTE | 2022-04-12 13:35 | Psychiatric Consultation ---
Date of Consultation April 12, 2022 Impression / Recommendations Impression 66 yo woman with history of schizoaffective disorder on multiple psychiatric medications including seroquel, gabapentin, escitalopram, buspirone and depakote for many years with psychiatric stability with worsening weakness and fatigue. Agree that scheduled clonazepam that she had been taking as 1mg TID could have been contributing to weakness and increasing risk of future falls though rapid taper has not yet appeared to significantly impact her wakefulness which seems to be more driven by sleep/wake cycle shift. Would watch for potential benzo withdrawal given very rapid taper as she's been on clonazepam for many years. If rebound anxiety or signs of benzo withdrawal would use low dose clonazepam prn. Ammonia and depakote level and TSH normal and reassuring. If weakness persists could consider reducing gabapentin in the future. Seems to also be a bit of a behavioral component to some of her decisions about when to respond to questions and how much to participate based on intermittent responses. (1) Schizoaffective disorder: Schizoaffective disorder type: depressive Qualified Code(s): F25.1 - Schizoaffective disorder, depressive type (2) Lethargy: (3) Weakness: -Continue psychiatric medications as they are, monitor for signs of benzo withdrawal given rapid clonazepam taper -Could consider reduction of gabapentin in the future if weakness continues -Encourage wakefulness during the day, sitting up, blinds open, walking to help re-set sleep/wake cycle. Melatonin prn could also be used to help with resetting sleep cycle. -Discussed with hospitalist provider Risk Factors Assessment Do You Have Access To A Gun?: No Psych History Identifying Data 66 yo woman with a history of schizoaffective disorder admitted medically for a fall and weakness after recent admission for diarrhea and possible gastroenteritis. Psychiatry consulted given ongoing weakness and multiple psychiatric medications with question of whether or not they may be contributing to fatigue and weakness. Chief Complaint "I didn't sleep at all last night so I'm tired". History of Present Illness This morning Tierra is sleeping and has difficulty engaging even with multiple prompts to wake her. She does engage briefly and will answer some questions but keeps her eyes closed for most of the assessment. She denies any recent changes in her psychiatric medications and feels they work well. She feels her weakness and fatigue worsened after recent illness. She remains hopeful that she can return to her home soon. Per collateral from patient's nurse her daughter reported that she often is awake at night and sleeps during the day. Ammonia level on 04/11/22 was normal. Depakote level was 90 mcg/ml and normal on 04/11/22. Reviewed past psychiatric consultation from Oct 2020 and patient has remained stable on the same psychiatric medications of: seroquel 400mg qhs, buspar 15mg TID, Depakote ER 1500mg qhs, escitalopram 20mg qd, Gabapentin 100mg qAM & 100mg midday & 200mg qhs. Only recent psychiatric medication change was rapid taper of Klonopin from 1mg po TID to discontinuation over the last three days. Past Psychiatric History Outpatient Services: [facility] Do You Have Access To A Gun?: No Allergies Allergy/AdvReac Type Severity Reaction Status Date / Time egg AdvReac Severe Vomiting Verified 04/08/22 01:44 Penicillins AdvReac Severe Vomiting Verified 04/08/22 01:44 Home Medications Medication Instructions Recorded Confirmed Type buspirone 15 mg tablet 15 mg PO TID 10/25/20 04/08/22 History gabapentin 100 mg capsule See Rx Instructions .ROUTE .COMPLEX 10/25/20 04/08/22 History (Neurontin) [id number]-[id number]-[id number] 1 cap PO TID 10/25/20 04/08/22 History 12,000-38,000-60,000 unit capsule,delayed rel (Creon) pantoprazole 40 mg tablet,delayed 40 mg PO QAM 10/25/20 04/08/22 History release (Protonix) rivaroxaban 20 mg tablet (Xarelto) 20 mg PO QAM 10/25/20 04/08/22 History escitalopram oxalate 20 mg tablet 20 mg PO QAM 03/18/21 04/08/22 History (Lexapro) ropinirole 0.5 mg tablet 0.5 mg PO HS 03/18/21 04/08/22 History cholestyramine (with sugar) 4 gram 1 ea PO DAILY 06/03/21 04/08/22 History powder for susp in a packet (Questran) divalproex 500 mg tablet,extended 1,500 mg PO HS 06/03/21 04/08/22 History release 24 hr (Depakote ER) ferrous sulfate 325 mg (65 mg 325 mg PO Q OTHER DAY 06/03/21 04/08/22 History iron) tablet (Iron (ferrous sulfate)) quetiapine 400 mg tablet (Seroquel) 400 mg PO HS 06/03/21 04/08/22 History cyanocobalamin (vitamin B-12) 1,000 mcg PO BID 08/05/21 04/08/22 History 1,000 mcg tablet (Vitamin B-12) loratadine 10 mg tablet (Allergy 10 mg PO QAM 08/05/21 04/08/22 History Relief (loratadine)) thiamine HCl (vitamin B1) 100 mg 100 mg PO BID 10/11/21 04/08/22 History tablet (Vitamin B-1) levothyroxine 50 mcg tablet 50 mcg PO QAM 01/21/22 04/08/22 History ergocalciferol (vitamin D2) 1,250 1,250 mcg PO WK 02/02/22 04/08/22 History mcg (50,000 unit) capsule ondansetron HCl 4 mg tablet 4 mg PO Q8 PRN 02/02/22 04/08/22 History clonazepam 1 mg tablet 1 mg PO TID 02/25/22 04/08/22 History famotidine 20 mg tablet 20 mg PO DAILY 02/25/22 04/08/22 History glipizide 5 mg tablet 5 mg PO DAILY 30 Days #30 tab 03/22/22 04/08/22 Rx metformin 500 mg tablet 500 mg PO DAILY 04/05/22 04/08/22 History magnesium oxide 400 mg (241.3 mg 400 mg PO BID #60 tab 04/07/22 04/08/22 Rx magnesium) tablet gabapentin 100 mg capsule 100 mg PO .per instructions #90 cap 04/11/22 Rx nicotine 21 mg/24 hr daily 21 mg TRANSDERMAL QAM #14 ea 04/11/22 Rx transdermal patch (Nicoderm CQ) Substance Abuse History denies any alcohol or recreational substance use Personal History Living Arrangements: Home (has support from her daughter ) Highest Grade Completed: High School Graduate Highest Grade Completed Comment: had learning support through special education classes, unclear if ever received formal learning disabilities or intellectual disability diagnoses Employment Status: Unemployed Number Of Children: 2 daughters Beliefs That Will Affect Care: None Patient History Medical History Acute hyponatremia Anemia Anxiety and depression Arthritis Aspiration pneumonia Diabetes GERD (gastroesophageal reflux disease) History of pulmonary embolism Hyperparathyroidism Hypomagnesemia Hypoxia Iron deficiency anemia Irritable bowel syndrome Schizoaffective disorder Smoking Vomiting and diarrhea Weakness Surgical History History of section x2 Social History Smoking Status: Heavy tobacco smoker Tobacco Type: Cigarettes Cigarettes Per Day: 2-3 packs; Second Hand Exposure: No; Do You Dip or Chew Tobacco: No; Hx Alcohol Use: No Hx Substance Use: No Preferred Language: Burkinan Communication Ability: Effective Placement Interviewer Required: No Beliefs That Will Affect Care: None marital status: Current Living Situation: Family Current Living Situation Comment: Lives with Daughter How many Children do You have: 2 Other Information That Helps Us Care for You: No Feels Safe at Home: Yes Safety Concerns: Feels Safe At This Time Assistive Devices: Walker Physical Exam Psychiatric: Orientation: alert, oriented to person and oriented to place Apperance: appropriately dressed and appropriately groomed Eye Contact: + poor eye contact Motor Behavior: no abnormal motor movements Speech: normal rate/rhythm/volume of speech (brief) Affect: + constricted affect Mood: no depressed mood and no anxious mood Thought Process: clear/coherent thought process and + concrete thought process Thought Content: reality based without delusions Suicidal Thoughts: denies suicidal thoughts Homicidal Thoughts: denies homicidal thoughts Hallucinations: no auditory hallucinations and no visual hallucinations Cognition: language grossly intact; + attention not intact Insight: + limited insight Judgement: + limited judgement Vital Signs (Past 24 Hours): Last Vital Signs Temp 36.7 C 04/12/22 08:10 Pulse 74 04/12/22 09:26 Resp 16 04/12/22 08:10 BP 95/66 L 04/12/22 09:26 Pulse Ox 90 04/12/22 08:10 Neurologic: Cranial Nerves: EOM intact bilaterally, normal facial strength, t ongue midline and no nystagmus Review of Systems All systems reviewed & are unremarkable except as noted in HPI & below Results & Data (PSY) Medications Administered Acetaminophen (Acetaminophen 325 Mg Tab) 650 mg PO Q6H PRN PRN Reason: pain/fever Stop: 05/08/22 05:07 Last Admin: 04/11/22 23:42 Dose: 650 mg Documented by: [id number] Admin: 04/11/22 02:17 Dose: 650 mg Documented by: [id number] Admin: 04/10/22 09:52 Dose: 650 mg Documented by: [id number] Admin: 04/08/22 12:28 Dose: 650 mg Documented by: [id number] Lipase/Protease/Amylase (Pancreaze (Lipase 4,200u) Cap) 3 cap PO TIDM MARY Stop: 05/08/22 07:59 Last Admin: 04/12/22 12:07 Dose: 3 cap Documented by: [id number] Admin: 04/12/22 09:27 Dose: 3 cap Documented by: [id number] Admin: 04/11/22 18:02 Dose: 3 cap Documented by: [id number] Admin: 04/11/22 14:26 Dose: 3 cap Documented by: [id number] Admin: 04/11/22 10:31 Dose: 3 cap Documented by: [id number] Admin: 04/10/22 17:31 Dose: 3 cap Documented by: [id number] Admin: 04/10/22 12:59 Dose: 3 cap Documented by: [id number] Admin: 04/10/22 08:37 Dose: 3 cap Documented by: [id number] Admin: 04/09/22 16:46 Dose: 3 cap Documented by: [id number] Admin: 04/09/22 11:31 Dose: 3 cap Documented by: [id number] Admin: 04/09/22 09:11 Dose: 3 cap Documented by: [id number] Admin: 04/08/22 17:49 Dose: 3 cap Documented by: [id number] Admin: 04/08/22 12:28 Dose: 3 cap Documented by: [id number] Admin: 04/08/22 08:33 Dose: 3 cap Documented by: [id number] Buspirone HCl (Buspirone 15 Mg Tab) 15 mg PO TID MARY Stop: 05/08/22 08:59 Last Admin: 04/12/22 13:19 Dose: 15 mg Documented by: [id number] Admin: 04/12/22 09:29 Dose: 15 mg Documented by: [id number] Admin: 04/11/22 20:12 Dose: 15 mg Documented by: [id number] Admin: 04/11/22 14:26 Dose: 15 mg Documented by: [id number] Admin: 04/11/22 10:32 Dose: 15 mg Documented by: [id number] Admin: 04/10/22 20:24 Dose: 15 mg Documented by: [id number] Admin: 04/10/22 13:37 Dose: 15 mg Documented by: [id number] Admin: 04/10/22 08:34 Dose: 15 mg Documented by: [id number] Admin: 04/09/22 20:58 Dose: 15 mg Documented by: [id number] Admin: 04/09/22 14:43 Dose: 15 mg Documented by: [id number] Admin: 04/09/22 09:11 Dose: 15 mg Documented by: [id number] Admin: 04/08/22 21:59 Dose: 15 mg Documented by: [id number] Admin: 04/08/22 14:05 Dose: 15 mg Documented by: [id number] Admin: 04/08/22 08:31 Dose: 15 mg Documented by: [id number] Cholestyramine Resin (Cholestyramine Light 4 Gm Pkt) 4 gm PO DAILY@1100 [facility] Stop: 05/08/22 10:59 Last Admin: 04/12/22 11:20 Dose: 4 gm Documented by: [id number] Admin: 04/11/22 13:13 Dose: 4 gm Documented by: [id number] Admin: 04/10/22 10:49 Dose: 4 gm Documented by: [id number] Admin: 04/09/22 11:27 Dose: 4 gm Documented by: [id number] Admin: 04/08/22 11:31 Dose: 4 gm Documented by: [id number] Cyanocobalamin (Cyanocobalamin (B-12) 500 Mcg Tablet) 1,000 mcg PO BID [facility] Stop: 05/08/22 08:59 Last Admin: 04/12/22 09:28 Dose: 1,000 mcg Documented by: [id number] Admin: 04/11/22 20:10 Dose: 1,000 mcg Documented by: [id number] Admin: 04/11/22 10:32 Dose: 1,000 mcg Documented by: [id number] Admin: 04/10/22 20:26 Dose: 1,000 mcg Documented by: [id number] Admin: 04/10/22 08:35 Dose: 1,000 mcg Documented by: [id number] Admin: 04/09/22 20:58 Dose: 1,000 mcg Documented by: [id number] Admin: 04/09/22 09:11 Dose: 1,000 mcg Documented by: [id number] Admin: 04/08/22 22:01 Dose: 1,000 mcg Documented by: [id number] Admin: 04/08/22 08:32 Dose: 1,000 mcg Documented by: [id number] Divalproex Sodium (Divalproex Extended Release 500 Mg Tab) 1,500 mg PO HS [facility] Stop: 05/08/22 20:59 Last Admin: 04/11/22 20:16 Dose: 1,500 mg Documented by: [id number] Admin: 04/10/22 20:24 Dose: 1,500 mg Documented by: [id number] Admin: 04/09/22 20:57 Dose: 1,500 mg Documented by: [id number] Admin: 04/08/22 22:04 Dose: 1,500 mg Documented by: [id number] Escitalopram Oxalate (Escitalopram Oxalate 20 Mg Tab) 20 mg PO QAM [facility] Stop: 05/08/22 08:59 Last Admin: 04/12/22 09:31 Dose: 20 mg Documented by: [id number] Admin: 04/11/22 10:32 Dose: 20 mg Documented by: [id number] Admin: 04/10/22 08:35 Dose: 20 mg Documented by: [id number] Admin: 04/09/22 09:12 Dose: 20 mg Documented by: [id number] Admin: 04/08/22 08:33 Dose: 20 mg Documented by: [id number] Famotidine (Famotidine 20 Mg Tab) 20 mg PO DAILY [facility] Stop: 05/08/22 08:59 Last Admin: 04/12/22 09:54 Dose: 20 mg Documented by: [id number] Admin: 04/11/22 11:55 Dose: 20 mg Documented by: [id number] Admin: 04/10/22 08:37 Dose: 20 mg Documented by: [id number] Admin: 04/09/22 09:11 Dose: 20 mg Documented by: [id number] Admin: 04/08/22 08:33 Dose: 20 mg Documented by: [id number] Ferrous Sulfate (Ferrous Sulfate 325 Mg Tab) 325 mg PO Q2D@0900 [facility] Stop: 05/08/22 08:59 Last Admin: 04/12/22 09:30 Dose: 325 mg Documented by: [id number] Admin: 04/10/22 08:36 Dose: 325 mg Documented by: [id number] Admin: 04/08/22 08:34 Dose: 325 mg Documented by: [id number] Gabapentin (Gabapentin 100 Mg Cap) 100 mg PO DAILY@0900,1200 [facility] Stop: 05/08/22 08:59 Last Admin: 04/12/22 12:08 Dose: 100 mg Documented by: [id number] Admin: 04/12/22 09:29 Dose: 100 mg Documented by: [id number] Admin: 04/11/22 14:26 Dose: 100 mg Documented by: [id number] Admin: 04/11/22 10:32 Dose: 100 mg Documented by: [id number] Admin: 04/10/22 12:59 Dose: 100 mg Documented by: [id number] Admin: 04/10/22 08:40 Dose: 100 mg Documented by: [id number] Admin: 04/09/22 11:31 Dose: 100 mg Documented by: [id number] Admin: 04/09/22 09:11 Dose: 100 mg Documented by: [id number] Admin: 04/08/22 12:29 Dose: 100 mg Documented by: [id number] Admin: 04/08/22 08:33 Dose: 100 mg Documented by: [id number] Gabapentin (Gabapentin 100 Mg Cap) 200 mg PO HS [facility] Stop: 05/08/22 20:59 Last Admin: 04/11/22 20:12 Dose: 200 mg Documented by: [id number] Admin: 04/10/22 20:24 Dose: 200 mg Documented by: [id number] Admin: 04/09/22 20:58 Dose: 200 mg Documented by: [id number] Admin: 04/08/22 22:03 Dose: 200 mg Documented by: [id number] Insulin Aspart (Insulin Aspart Per Unit) 0 units SC ACHS [facility] Stop: 05/10/22 07:29 Last Admin: 04/12/22 13:06 Dose: 4 units Documented by: [id number] Cosigned by: [id number] Admin: 04/12/22 09:22 Dose: 4 units Documented by: [id number] Cosigned by: [id number] Admin: 04/11/22 21:23 Dose: 4 units Documented by: [id number] Cosigned by: [id number] Admin: 04/11/22 18:02 Dose: 3 units Documented by: [id number] Cosigned by: [id number] Admin: 04/11/22 13:17 Dose: 3 units Documented by: [id number] Cosigned by: [id number] Admin: 04/11/22 10:39 Dose: 3 units Documented by: [id number] Cosigned by: [id number] Admin: 04/10/22 20:40 Dose: 2 units Documented by: [id number] Cosigned by: [id number] Admin: 04/10/22 17:53 Dose: 3 units Documented by: [id number] Cosigned by: [id number] Admin: 04/10/22 12:56 Dose: 3 units Documented by: [id number] Cosigned by: [id number] Admin: 04/10/22 08:49 Dose: 2 units Documented by: [id number] Cosigned by: [id number] Levothyroxine Sodium (Levothyroxine Sodium 50 Mcg Tablet) 50 mcg PO DAILYBB [facility] Stop: 05/08/22 06:29 Last Admin: 04/11/22 06:13 Dose: 50 mcg Documented by: [id number] Admin: 04/11/22 06:12 Dose: 50 mcg Documented by: [id number] Admin: 04/10/22 05:53 Dose: 50 mcg Documented by: [id number] Admin: 04/09/22 06:14 Dose: 50 mcg Documented by: [id number] Admin: 04/08/22 08:33 Dose: 50 mcg Documented by: [id number] Loratadine (Loratadine 10 Mg Tab) 10 mg PO QAM [facility] Stop: 05/08/22 08:59 Last Admin: 04/12/22 09:28 Dose: 10 mg Documented by: [id number] Admin: 04/11/22 10:32 Dose: 10 mg Documented by: [id number] Admin: 04/10/22 08:35 Dose: 10 mg Documented by: [id number] Admin: 04/09/22 09:11 Dose: 10 mg Documented by: [id number] Admin: 04/08/22 08:32 Dose: 10 mg Documented by: [id number] Magnesium Oxide (Magnesium Oxide 400 Mg Tab) 400 mg PO BID [facility] Stop: 05/08/22 08:59 Last Admin: 04/12/22 09:29 Dose: 400 mg Documented by: [id number] Admin: 04/11/22 20:16 Dose: 400 mg Documented by: [id number] Admin: 04/11/22 10:32 Dose: 400 mg Documented by: [id number] Admin: 04/10/22 20:25 Dose: 400 mg Documented by: [id number] Admin: 04/10/22 08:34 Dose: 400 mg Documented by: [id number] Admin: 04/09/22 20:58 Dose: 400 mg Documented by: [id number] Admin: 04/09/22 09:11 Dose: 400 mg Documented by: [id number] Admin: 04/08/22 22:06 Dose: 400 mg Documented by: [id number] Admin: 04/08/22 08:32 Dose: 400 mg Documented by: [id number] Miscellaneous (Remove Nicoderm Patch) 1 ea N/A DAILY@0859 [facility] Stop: 05/09/22 08:58 Last Admin: 04/12/22 09:28 Dose: Not Given Documented by: [id number] Admin: 04/11/22 10:33 Dose: Not Given Documented by: [id number] Admin: 04/10/22 08:39 Dose: Not Given Documented by: [id number] Admin: 04/09/22 09:02 Dose: Not Given Documented by: [id number] Nicotine (Nicotine 21 Mg/24 Hr Tdsy) 21 mg TD [facility] Stop: 05/08/22 08:59 Last Admin: 04/12/22 09:30 Dose: Not Given Documented by: [id number] Admin: 04/11/22 10:33 Dose: Not Given Documented by: [id number] Admin: 04/10/22 08:41 Dose: Not Given Documented by: [id number] Admin: 04/09/22 09:03 Dose: Not Given Documented by: [id number] Admin: 04/08/22 08:34 Dose: Not Given Documented by: [id number] Pantoprazole Sodium (Pantoprazole 40 Mg Tab) [facility] [place] Stop: 05/08/22 08:59 Last Admin: 04/12/22 09:30 Dose: 40 mg Documented by: [id number] Admin: 04/11/22 10:32 Dose: 40 mg Documented by: [id number] Admin: 04/10/22 08:37 Dose: 40 mg Documented by: [id number] Admin: 04/09/22 09:12 Dose: 40 mg Documented by: [id number] Admin: 04/08/22 08:32 Dose: 40 mg Documented by: [id number] Quetiapine Fumarate (Quetiapine Fumarate 200 Mg Tab) 400 mg PO HS [facility] Stop: 05/08/22 20:59 Last Admin: 04/11/22 20:13 Dose: 400 mg Documented by: [id number] Admin: 04/10/22 20:23 Dose: 400 mg Documented by: [id number] Admin: 04/09/22 20:57 Dose: 400 mg Documented by: [id number] Admin: 04/08/22 21:59 Dose: 400 mg Documented by: [id number] Rivaroxaban (Rivaroxaban 20 Mg Tab) 20 mg PO QAM [facility] Stop: 05/08/22 08:59 Last Admin: 04/12/22 09:28 Dose: 20 mg Documented by: [id number] Admin: 04/11/22 10:33 Dose: 20 mg Documented by: [id number] Admin: 04/10/22 08:36 Dose: 20 mg Documented by: [id number] Admin: 04/09/22 09:12 Dose: 20 mg Documented by: [id number] Admin: 04/08/22 08:34 Dose: 20 mg Documented by: [id number] Ropinirole HCl (Ropinirole Hcl 0.25 Mg Tablet) 0.5 mg PO HS [facility] Stop: 05/08/22 20:59 Last Admin: 04/11/22 20:11 Dose: 0.5 mg Documented by: [id number] Admin: 04/10/22 20:22 Dose: 0.5 mg Documented by: [id number] Admin: 04/09/22 20:57 Dose: 0.5 mg Documented by: [id number] Admin: 04/08/22 22:08 Dose: 0.5 mg Documented by: [id number] Thiamine HCl (Thiamine Hcl 100 Mg Tab) 100 mg PO BID [facility] Stop: 05/08/22 08:59 Last Admin: 04/12/22 09:30 Dose: 100 mg Documented by: [id number] Admin: 04/11/22 20:17 Dose: 100 mg Documented by: [id number] Admin: 04/11/22 10:32 Dose: 100 mg Documented by: [id number] Admin: 04/10/22 20:23 Dose: 100 mg Documented by: [id number] Admin: 04/10/22 08:35 Dose: 100 mg Documented by: [id number] Admin: 04/09/22 20:57 Dose: 100 mg Documented by: [id number] Admin: 04/09/22 09:11 Dose: 100 mg Documented by: [id number] Admin: 04/08/22 22:07 Dose: 100 mg Documented by: [id number] Admin: 04/08/22 08:32 Dose: 100 mg Documented by: [id number] Coding Level of Care Code 64775 Inpt Consult Level 2 Diagnoses Lethargy R53.83 Weakness R53.1 Schizoaffective disorder F25.1 Schizoaffective disorder type: depressive
[2022-04-12] MEDS: rOPINIRole HCL 0.25 MG TABLET PO SCH (21:05)
[2022-04-12] MEDS: DIVALPROEX EXTENDED RELEASE 500 MG TAB PO SCH (21:05)
[2022-04-12] MEDS: QUEtiapine FUMARATE 200 MG TAB PO SCH (21:07)
[2022-04-12] MEDS ORDERED: MAGNESIUM SULFATE / D5W 1 GM/100 ML BAG IV ONE (22:39)
--- NOTE | 2022-04-12 22:41 | Hospitalist Progress Note ---
Date of Service April 12, 2022 Assessment & Plan (1) Weakness: Plan: Admitted with generalized weakness following mechanical fall at home; possibly related to viral gastroenteritis. PT recommending inpatient rehab - discharge to [facility] once she is medically stable. Patient has significant amount of antipsychotic medications. No change to medications per psychiatry consult. Appreciate Dr. Santamaria's input Prolonged QTC on admission. Check repeat EKG in the morning Continue to replete potassium and magnesium as needed. (2) Lethargy: Plan: Sensorium is significantly improved today. Unclear etiology; medication induced vs. infection vs. other. She does take Buspar 15 mg TID, Depakote 1500 mg qhs, Lexapro 20 mg daily, Seroquel 400 mg qhs but has taken these for years. Ammonia level 59, Depakote level 90. Home Klonopin discontinued on 04/10 due to lethargy. She seems to be having some improvement today Nursing instructed to open all blinds and turn on all room lights and sit dann ent up in bed or bedside chair during the day and turn all lights off at night CXR 04/08 negative for infection; Urine culture 04/05 negative. Will order repeat u/a + urine culture today. Psych consult to evaluate medication list, in setting of lethargy - no changes at this time Continue to follow (3) Vomiting and diarrhea: Plan: Some nausea today but no vomiting. No abdominal pain Now improved, related to viral gastroenteritis. Continue Creon and Questran as prescribed. (4) GERD (gastroesophageal reflux disease): Plan: Continue Protonix daily & Pepcid 20 daily. (5) Schizoaffective disorder: Plan: Continue home meds. Discontinued Klonopin due to acute lethargy. Continue to monitor (6) Anxiety and depression: Plan: Continue home meds, discontinued Klonopin. (7) Microcytic anemia: Plan: Continue Ferrous sulfate 325 mg QOD. (8) History of pulmonary embolism: Plan: Continue Xarelto 20 mg daily. No chest pain or tightness today. 92% on room air. No tachycardia. No tachypnea. (9) Lactic acidosis: Plan: Stable. (10) Restless leg: Plan: Continue Requip. (11) Tobacco use: Plan: Nicotine patch daily ordered Patient states that she is refusing today as it makes her nauseous Discussed need for tobacco abstention. Continue to encourage same (12) Hypothyroid: Plan: Levothyroxine 50 mcg daily. TSH 2.66 on 04/08. (13) Diabetes: Plan: Hgb A1C 9.4 on 03/20/22. Holding home Glipizide and Metformin. Patient with elevated glucose We will start insulin drip and request glycemic consult as [id number] glucose has been trending upward Anion gap was only 5 this morning (14) Neuropathy: Plan: Neurontin 100 mg qAM and afternoon, 200 mg qhs. Vitamin b12 1,000 mcg daily. Plan: DVT ppx: Xarelto 20 mg daily. Continue home Vit D weekly, Mag oxide 400 mg BID, Thiamine 100 mg BID. Discharge to [facility] once medically stable, pending improvement in lethargy. Admission and Anticipated Discharge Date Admission Date: April 08, 2022 Supervising Physician Co-Signing Physician Notes Attending Attestation: Chart reviewed, care plan d/w PA Amaury Arriaza. I agree w/ the lopez components of his documentation. Appreciate psych consult & recs. Elmo Gonzalez MD Subjective Attending: Dr. Gonzalez Patient's lethargy seems to be improving. Carito held 04/10/2022. She is alert and oriented x3 today she is quite engaging. Good sense of humor. She was seen by psychiatry today. I spoke personally to Dr. Santamaria and at this time we will hold on any further changes to her psychiatric medicine. Patient has been on this regimen for several years. Patient seems to have her days and nights mixed up. Drapes were opened all day today, overhead lights on all day, patient sitting up in bed. Encouraged out of bed to chair. Patient seemed agreeable. Patient denies any shortness of breath. She has no chest pain. Currently refusing nicotine patch as she states that she has no craving for smoking. She does openly provide some of her history including smoking history and family history. No acute complaints at this time. Review of Systems Review of Systems: A total of 10 systems was reviewed and is negative other than as listed in the HPI Physical Exam Physical Exam: GENERAL : No acute distress. Talkative. Smiling. EYES: No icterus, gaze conjugate NOSE: No evidence of epistaxis MOUTH: No lesions or candidiasis. All teeth extracted. No dentures. NECK: Supple LUNGS: Fine crackles at the bases. There are also some fine wheezes with expiration. Most of these cleared with deep inspiration and cough HEART: Regular, rate controlled ABDOMEN: Soft, NT, ND, BS Present EXTREMITIES: No LE edema, pedal pulses intact NEURO: A&OX3. Pleasant Results & Data Results & Data ([facility]) Vital Signs (Past 12 Hours) Vital Signs Temp Pulse Resp BP Pulse Ox 04/12/22 15:23 36.5 C 77 18 111/75 92 Critical Care Results & Data Vital Signs (Past 12 Hours) Vital Signs Temp Pulse Resp BP Pulse Ox 04/12/22 15:23 36.5 C 77 18 111/75 92 Lab & Micro Results (Past 24 Hours) No Data to Display No Data to Display No Data to Display I & O Totals 24 Hours 04/11/22 04/12/22 04/13/22 06:59 06:59 06:59 Intake Total 460 / 460 1050 / 1050 750 / 750 Output Total 1900 / 1900 901 / 901 502 / 502 Balance -1440 / -1440 149 / 149 248 / 248 Cumulative 04/08/22 00:57 thru 04/12/22 22:06 Intake Total 4998.334 Output Total 5305 Balance -306.666 RT Ventilator Mngmt (Last Documented) Ventilator Ordered Settings Respiratory Rate 18 04/12/22 15:23 Ventilator - PT Measurements Respiratory Rate 18 PG Care Time/CCT Total # of Minutes Spent Total Time Spent with Patient: Total time spent is greater than 50% in coordination of care (as documented) at patient's floor/unit and/or counseling patient: Coding Level of Care Code 00878 Subseq Hosp Care Lvl 3 Diagnoses Weakness R53.1 Lethargy R53.83 Vomiting and diarrhea R11.10; R19.7 GERD (gastroesophageal reflux disease) K21.9 Esophagitis presence: without esophagitis Schizoaffective disorder F25.1 Schizoaffective disorder type: depressive Anxiety and depression F41.9; F32.9 Microcytic anemia D50.9 History of pulmonary embolism Z86.711 Lactic acidosis E87.2 Restless leg G25.81 Tobacco use Z72.0 Hypothyroid E03.9 Diabetes E11.9; Z79.4 Diabetes mellitus complication status: without complication Diabetes mellitus terminal block assembler insulin use: with terminal block assembler use Diabetes mellitus type: type 2 Neuropathy G62.9 Time Spent (min) 40 Comment Started insulin gtt (1) Diabetes Diabetes mellitus complication status: without complication Diabetes mellitus usp insulin use: with terminal block assembler use Diabetes mellitus type: type 2 Qualified Code(s): E11.9 - Type 2 diabetes mellitus without complications; Z79.4 - snf (current) use of insulin (2) Schizoaffective disorder Schizoaffective disorder type: depressive Qualified Code(s): F25.1 - Schizoaffective disorder, depressive type (3) GERD (gastroesophageal reflux disease) Esophagitis presence: without esophagitis Qualified Code(s): K21.9 - Gastro- esophageal reflux disease without esophagitis
[2022-04-12] MEDS ORDERED: INSULIN PROTOCOL GOAL RANGE ONE (22:51)
[2022-04-12] MEDS ORDERED: STAT IV Infusion **Titration per Protocol STA (22:51)
[2022-04-12] MEDS ORDERED: PHARMACY GLYCEMIC MGMT CONSULT PRN (22:51)
[2022-04-12] MEDS ORDERED: DC ALL PREVIOUSLY ORDERED DIABETES MEDS ONE (22:51)
[2022-04-12] MEDS ORDERED: MODERATE STRESS LEVEL ONE (22:51)
[2022-04-12] MEDS ORDERED: INSULIN HUMAN REGULAR IV BOLUS 3 UNITS in SYRINGE 0 ML IV ONE (23:30)
[2022-04-12] MEDS ORDERED: INSULIN REGULAR 250 UNITS in SODIUM CHLORIDE 0.9% 247.5 ML IV SCH (23:30)
[2022-04-13] MEDS: LEVOTHYROXINE SODIUM 50 MCG TABLET PO SCH (05:29)
[2022-04-13] MEDS ORDERED: INSULIN GLARGINE SOLOSTAR 100 UNITS/ML 3 ML PEN SC ONE (06:00)
--- NOTE | 2022-04-13 06:58 | Electrocardiogram Report ---
Test Reason : Blood Pressure : / mmHG Vent. Rate : 067 BPM Atrial Rate : 067 BPM P-R Int : 184 ms QRS Dur : 134 ms QT Int : 424 ms P-R-T Axes : 050 109 027 degrees QTc Int : 448 ms Normal sinus rhythm Right bundle branch block Abnormal ECG When compared with ECG of 08-APR-2022 01:15, Vent. rate has decreased BY 35 BPM QT has shortened Confirmed by Ender Perdue ([id number]) on 04/13/2022 6:58:23 AM Referred By: REFERRED SELF Confirmed By:Ender Perdue
[2022-04-13] MEDS ORDERED: INSULIN ASPART PER UNIT SC SCH (07:30)
[2022-04-13] MEDS: INSULIN ASPART PER UNIT SC SCH ×4 (07:50→21:09)
[2022-04-13 08:04] LABS: BUN Creatinine Ratio 11.3 (10-20); Calcium 9.4 mg/dl (8.5-10.1); Creatinine Clr Calc Pharmacy 108.2 ml/min; Est GFR (African American) 110.4 ml/min; Est GFR (Non-African American) 95.3 ml/min; Magnesium 1.9 mg/dl (1.7-2.4); Phosphorus 3.7 mg/dl (2.5-4.9); Potassium 4.2 mmol/L (3.5-5.1)
[2022-04-13] MEDS: PANCREAZE (LIPASE 4,200U) CAP PO SCH ×3 (08:12→16:46)
[2022-04-13] MEDS: RIVAROXABAN 20 MG TAB PO SCH (08:13)
[2022-04-13] MEDS: CYANOCOBALAMIN (B-12) 500 MCG TABLET PO SCH ×2 (08:13→20:01)
[2022-04-13] MEDS: GABAPENTIN 100 MG CAP PO SCH ×3 (08:13→20:03)
[2022-04-13] MEDS: ESCITALOPRAM OXALATE 20 MG TAB PO SCH (08:13)
[2022-04-13] MEDS: PANTOprazole 40 MG TAB PO SCH (08:13)
[2022-04-13] MEDS: LORATADINE 10 MG TAB PO SCH (08:14)
[2022-04-13] MEDS: MAGNESIUM OXIDE 400 MG TAB PO SCH ×2 (08:14→20:02)
[2022-04-13] MEDS: THIAMINE HCL 100 MG TAB PO SCH ×2 (08:14→20:03)
[2022-04-13] MEDS: busPIRone 15 MG TAB PO SCH ×3 (08:14→20:02)
[2022-04-13] MEDS: NICOTINE 21 MG/24 HR TDSY TD SCH (08:15)
[2022-04-13] MEDS: FAMOTIDINE 20 MG TAB PO SCH (09:45)
--- NOTE | 2022-04-13 10:53 | Pharmacy Report ---
Pharmacy Glycemic Short Note 2 - Date of Service April 13, 2022 - Glycemic Short BSG Results (Last 24 hours): 04/12/22 04/12/22 04/12/22 11:41 16:50 21:03 Glucose POC Glucose 252 H 252 H 309 H* 04/12/22 04/12/22 04/13/22 21:05 23:04 00:33 Glucose POC Glucose 321 H* 278 H 186 H 04/13/22 04/13/22 04/13/22 01:36 02:36 03:32 Glucose POC Glucose 178 H 160 H 134 H 04/13/22 04/13/22 04/13/22 05:29 06:33 07:07 Glucose 85 POC Glucose 104 H 99 04/13/22 07:38 Glucose POC Glucose 86 OUTPATIENT ANTIDIABETIC REGIMEN: * Glipizide 5mg daily * Metformin 500mg daily * A1c 9.4% 03/20/22 ASSESSMENT: * 66 year old female admitted for weakness, PMH of Type 2 DM, GERD, h/o PE on Xarelto, anxiety/depression, schizoaffective disorder, who presented to [facility] ED on 04/08 for a mechanical fall and generalized weakness, shortly after being discharged on 04/07. * Uncontrolled type 2 diabetic, started on insulin drip last night for hyperglycemia. * Drip started at 2.8 units/hr, down to 1.4 units per hour and on hold for BSG less than goal. * Transition to basal bolus insulin. PLAN FOR INPATIENT GLYCEMIC CONTROL: * Hold outpatient oral diabetes medications * DC Insulin drip * Basal insulin * Lantus 20 units SQ daily * 10 units HS for BSG > 140mg/dl * Bolus insulin * NovoLog per scale ACHS or Q6hrs while NPO * Goal Range: Low 110 mg/dL - High 140 mg/dL * Correction Factor: 20 mg/dL/unit * Nutritional / Prandial insulin per carb ratio of 1 unit per 7 grams CHO consumed
[2022-04-13] MEDS: CHOLESTYRAMINE LIGHT 4 GM PKT PO SCH (11:13)
--- NOTE | 2022-04-13 15:17 | Hospitalist Progress Note ---
Date of Service April 13, 2022 Assessment & Plan (1) Weakness: Plan: Attending: Dr. Gonzalez Admitted with generalized weakness following mechanical fall at home; possibly related to viral gastroenteritis. PT recommending inpatient rehab - discharge to [facility] once she is medically stable. Patient has significant amount of antipsychotic medications. No change to medications per psychiatry consult. Appreciate Dr. Santamaria's input Prolonged QTC on admission. This has now shortened and is at 448 ms. Ventricular rate has also decreased by 35 bpm and is currently 67 bpm Continue to replete potassium and magnesium as needed. (2) Lethargy: Plan: Sensorium is significantly improved today. Unclear etiology; medication induced vs. infection vs. other. She does take Buspar 15 mg TID, Depakote 1500 mg qhs, Lexapro 20 mg daily, Seroquel 400 mg qhs but has taken these for years. Ammonia level 59, Depakote level 90. Home Klonopin discontinued on 04/10 due to lethargy. She seems to be having continuedimprovement today Nursing instructed to open all blinds and turn on all room lights and sit patient up in bed or bedside chair during the day and turn all lights off at night CXR 04/08 negative for infection; Urine culture 04/05 negative. Repeat u/a 04/11/2022 is clear. Psych consult to evaluate medication list, in setting of lethargy - no changes at this time Continue to follow (3) Vomiting and diarrhea: Plan: No further nausea today. Patient ate 100% of her lunch No abdominal pain Now improved, related to viral gastroenteritis. Continue Creon and Questran as prescribed. (4) GERD (gastroesophageal reflux disease): Plan: Continue Protonix daily & Pepcid 20 daily. (5) Schizoaffective disorder: Plan: Continue home meds. Discontinued Klonopin due to acute lethargy. Continue to monitor (6) Anxiety and depression: Plan: Continue home meds, discontinued Klonopin. (7) Microcytic anemia: Plan: Continue Ferrous sulfate 325 mg QOD. (8) History of pulmonary embolism: Plan: Continue Xarelto 20 mg daily. No chest pain or tightness today. 92% on room air. No tachycardia. No tachypnea. (9) Lactic acidosis: Plan: Stable. (10) Restless leg: Plan: Continue Requip. (11) Tobacco use: Plan: Nicotine patch daily ordered Patient states that she is refusing today as it makes her nauseous Discussed need for tobacco abstention. Continue to encourage same (12) Hypothyroid: Plan: Levothyroxine 50 mcg daily. TSH 2.66 on 04/08. (13) Diabetes: Plan: Hgb A1C 9.4 on 03/20/22. Holding home Glipizide and Metformin. Patient with elevated glucose Patient started on insulin drip last night. Did not develop DKA. Insulin drip was discontinued. Diet resumed with carb consistent orders. (14) Neuropathy: Plan: Neurontin 100 mg qAM and afternoon, 200 mg qhs. Vitamin b12 1,000 mcg daily. Plan: DVT ppx: Xarelto 20 mg daily. Continue home Vit D weekly, Mag oxide 400 mg BID, Thiamine 100 mg BID. Discharge to [facility] once medically stable, pending improvement in lethargy. Based on improvement over the last 2 days, I think patient is nearly ready to be transferred to [facility]. Will ask physical therapy to reengage now the patient is alert and oriented Admission and Anticipated Discharge Date Admission Date: April 08, 2022 Supervising Physician Co-Signing Physician Notes Attending Attestation: Chart reviewed, care plan d/w PA Amaury Arriaza. I agree w/ the lopez components of his documentation. Insulin drip started last pm 2nd to severe hyperglycemia. Weaned off such this am. Appreciate pharmacy consultation for glycemic assistance. Elmo Gonzalez MD Subjective Attending Dr. Gonzalez Patient is alert and oriented x3 today. She is still feeling weak. She has not been out of bed. Encouraged her to get out of bed to chair. She continues to request that drapes be closed but is understanding that they need to be open to reset her circadian rhythm. She has no acute pain. She was placed on an insulin drip overnight as BSG was greater than 300. Insulin drip was discontinued this morning. Patient sugars remained stable. Patient was placed on carb consistent diet for lunch time and tolerated meals well. She denies shortness of breath. She states that she has no fever. She does feel weak and agrees to physical therapy participation Review of Systems Review of Systems: A total of 10 systems was reviewed and is negative other than as listed in the HPI Physical Exam Physical Exam: GENERAL : No acute distress. Talkative. Smiling. Good sense of humor EYES: No icterus, gaze conjugate NOSE: No evidence of epistaxis MOUTH: No lesions or candidiasis. Mucosa moist NECK: Supple LUNGS: Persistent fine crackles at the bases. No wheezes today. Good effort HEART: Regular, rate controlled ABDOMEN: Soft, NT, ND, BS Present EXTREMITIES: No LE edema, pedal pulses intact NEURO: A&OX3. Results & Data Results & Data ([facility]) Vital Signs (Past 12 Hours) Vital Signs Temp Pulse Resp BP Pulse Ox 04/13/22 07:50 36.6 C 65 16 100/68 95 Critical Care Results & Data Vital Signs (Past 12 Hours) Vital Signs Temp Pulse Resp BP Pulse Ox 04/13/22 15:56 36.7 C 78 16 107/70 91 Lab & Micro Results (Past 24 Hours) No Data to Display No Data to Display No Data to Display I & O Totals 24 Hours 04/12/22 04/13/22 04/14/22 06:59 06:59 06:59 Intake Total 1050 / 1050 1166.671 / 1166.671 240.329 / 240.329 Output Total 901 / 901 902 / 902 Balance 149 / 149 264.671 / 264.671 239.329 / 239.329 Cumulative 04/08/22 00:57 thru 04/13/22 14:51 Intake Total 5655.334 Output Total 5706 Balance -50.666 RT Ventilator Mngmt (Last Documented) Ventilator Ordered Settings Respiratory Rate 16 04/13/22 15:56 Ventilator - PT Measurements Respiratory Rate 16 PG Care Time/CCT Total # of Minutes Spent Total Time Spent with Patient: Total time spent is greater than 50% in coordination of care (as documented) at patient's floor/unit and/or counseling patient: Coding Level of Care Code 71049 Subseq Hosp Care Lvl 2 Diagnoses Weakness R53.1 Lethargy R53.83 Vomiting and diarrhea R11.10; R19.7 GERD (gastroesophageal reflux disease) K21.9 Esophagitis presence: without esophagitis Schizoaffective disorder F25.1 Schizoaffective disorder type: depressive Anxiety and depression F41.9; F32.9 Microcytic anemia D50.9 History of pulmonary embolism Z86.711 Lactic acidosis E87.2 Restless leg G25.81 Tobacco use Z72.0 Hypothyroid E03.9 Diabetes E11.9; Z79.4 Diabetes mellitus complication status: without complication Diabetes mellitus correction insulin use: with tank terminal gauger use Diabetes mellitus type: type 2 Neuropathy G62.9 (1) Diabetes Diabetes mellitus complication status: without complication Diabetes mellitus correction insulin use: with correction use Diabetes mellitus type: type 2 Qualified Code(s): E11.9 - Type 2 diabetes mellitus without complications; Z79.4 - bed bug exterminator (current) use of insulin (2) Schizoaffective disorder Schizoaffective disorder type: depressive Qualified Code(s): F25.1 - Schizoaffective disorder, depressive type (3) GERD (gastroesophageal reflux disease) Esophagitis presence: without esophagitis Qualified Code(s): K21.9 - Gastro- esophageal reflux disease without esophagitis
[2022-04-13] MEDS: QUEtiapine FUMARATE 200 MG TAB PO SCH (20:01)
[2022-04-13] MEDS: rOPINIRole HCL 0.25 MG TABLET PO SCH (20:02)
[2022-04-13] MEDS: DIVALPROEX EXTENDED RELEASE 500 MG TAB PO SCH (20:03)
[2022-04-13] MEDS ORDERED: INSULIN GLARGINE SOLOSTAR 100 UNITS/ML 3 ML PEN SC SCH (21:00)
[2022-04-14] MEDS: LEVOTHYROXINE SODIUM 50 MCG TABLET PO SCH (05:48)
[2022-04-14 06:37] LABS: BUN Creatinine Ratio 12.3 (10-20); Calcium 9.2 mg/dl (8.5-10.1); Creatinine Clr Calc Pharmacy 91.9 ml/min; Est GFR (African American) 100.9 ml/min; Potassium 4.4 mmol/L (3.5-5.1)
[2022-04-14] MEDS: FERROUS SULFATE 325 MG TAB PO SCH (07:49)
[2022-04-14] MEDS: ESCITALOPRAM OXALATE 20 MG TAB PO SCH (07:49)
[2022-04-14] MEDS: PANCREAZE (LIPASE 4,200U) CAP PO SCH ×2 (07:49→12:00)
[2022-04-14] MEDS: RIVAROXABAN 20 MG TAB PO SCH (07:50)
[2022-04-14] MEDS: LORATADINE 10 MG TAB PO SCH (07:50)
[2022-04-14] MEDS: busPIRone 15 MG TAB PO SCH ×2 (07:50→14:13)
[2022-04-14] MEDS: PANTOprazole 40 MG TAB PO SCH (07:51)
[2022-04-14] MEDS: THIAMINE HCL 100 MG TAB PO SCH (07:51)
[2022-04-14] MEDS: GABAPENTIN 100 MG CAP PO SCH ×2 (07:51→12:00)
[2022-04-14] MEDS: MAGNESIUM OXIDE 400 MG TAB PO SCH (07:51)
[2022-04-14] MEDS: NICOTINE 21 MG/24 HR TDSY TD SCH (07:52)
[2022-04-14] MEDS: CYANOCOBALAMIN (B-12) 500 MCG TABLET PO SCH (07:52)
[2022-04-14] MEDS: FAMOTIDINE 20 MG TAB PO SCH (07:52)
--- NOTE | 2022-04-14 08:15 | Hospitalist Progress Note ---
Date of Service April 14, 2022 Assessment & Plan (1) Weakness: Plan: Attending: Dr. Gonzalez Admitted with generalized weakness following mechanical fall at home; possibly related to viral gastroenteritis. PT recommending inpatient rehab - discharge to [facility] once she is medically stable. Patient has significant amount of antipsychotic medications. No change to medications per psychiatry consult. Appreciate Dr. Santamaria's input Prolonged QTC on admission. This has now shortened and is at 448 ms. Ventricular rate has also decreased by 35 bpm and is currently 67 bpm Continue to replete potassium and magnesium as needed. (2) Lethargy: Plan: Sensorium is significantly improved today. Unclear etiology; medication induced vs. infection vs. other. She does take Buspar 15 mg TID, Depakote 1500 mg qhs, Lexapro 20 mg daily, Seroquel 400 mg qhs but has taken these for years. Ammonia level 59, Depakote level 90. Home Klonopin discontinued on 04/10 due to lethargy. She seems to be having continuedimprovement today Nursing instructed to open all blinds and turn on all room lights and sit patient up in bed or bedside chair during the day and turn all lights off at night CXR 04/08 negative for infection; Urine culture 04/05 negative. Repeat u/a 04/11/2022 is clear. Psych consult to evaluate medication list, in setting of lethargy - no changes at this time Continue to follow (3) Vomiting and diarrhea: Plan: No further nausea today. Patient ate 100% of her lunch No abdominal pain Now improved, related to viral gastroenteritis. Continue Creon and Questran as prescribed. (4) GERD (gastroesophageal reflux disease): Plan: Continue Protonix daily & Pepcid 20 daily. (5) Schizoaffective disorder: Plan: Continue home meds. Discontinued Klonopin due to acute lethargy. Continue to monitor (6) Anxiety and depression: Plan: Continue home meds, discontinued Klonopin. (7) Microcytic anemia: Plan: Continue Ferrous sulfate 325 mg QOD. (8) History of pulmonary embolism: Plan: Continue Xarelto 20 mg daily. No chest pain or tightness today. 92% on room air. No tachycardia. No tachypnea. (9) Lactic acidosis: Plan: Stable. (10) Restless leg: Plan: Continue Requip. (11) Tobacco use: Plan: Nicotine patch daily ordered Patient states that she is refusing today as it makes her nauseous Discussed need for tobacco abstention. Continue to encourage same (12) Hypothyroid: Plan: Levothyroxine 50 mcg daily. TSH 2.66 on 04/08. (13) Diabetes: Plan: Hgb A1C 9.4 on 03/20/22. Holding home Glipizide and Metformin. Patient with elevated glucose Patient started on insulin drip last night. Did not develop DKA. Insulin drip was discontinued. Diet resumed with carb consistent orders. (14) Neuropathy: Plan: Neurontin 100 mg qAM and afternoon, 200 mg qhs. Vitamin b12 1,000 mcg daily. Plan: DVT ppx: Xarelto 20 mg daily. Continue home Vit D weekly, Mag oxide 400 mg BID, Thiamine 100 mg BID. Discharge to [facility] once medically stable, pending improvement in lethargy. Based on improvement over the last 2 days, I think patient is nearly ready to be transferred to [facility]. Will ask physical therapy to reengage now the patient is alert and oriented Admission and Anticipated Discharge Date Admission Date: April 08, 2022 Results & Data Results & Data ([facility]) Vital Signs (Past 12 Hours) Vital Signs Temp Pulse Resp BP Pulse Ox 04/14/22 07:28 36.4 C L 65 18 112/74 92 04/13/22 22:51 37 C 74 16 113/72 91 Laboratory Results 04/14/22 04/14/22 04/13/22 Range/Units 08:10 05:50 20:39 Sodium 134 L (136-145) mmol/L Potassium 4.4 (3.5-5.1) mmol/L Chloride 100 (98-107) mmol/L Carbon Dioxide 29 (21-32) mmol/L Anion Gap 5 (3-11) BUN 9 (6-23) mg/dl Creatinine 0.73 (0.6-1.2) mg/dl Est Cr Clr Drug Dosing 91.9 ml/min Est GFR ( Amer) 100.9 ml/min Est GFR (Non-Af Amer) 87.0 ml/min BUN/Creatinine Ratio 12.3 (10-20) Glucose 135 H (70-99(Fasting)) mg/dl POC Glucose 121 H 175 H (70-99) mg/dl Calcium 9.2 (8.5-10.1) mg/dl 04/13/22 04/13/22 Range/Units 17:09 12:00 Sodium (136-145) mmol/L Potassium (3.5-5.1) mmol/L Chloride (98-107) mmol/L Carbon Dioxide (21-32) mmol/L Anion Gap (3-11) BUN (6-23) mg/dl Creatinine (0.6-1.2) mg/dl Est Cr Clr Drug Dosing ml/min Est GFR ( Amer) ml/min Est GFR (Non-Af Amer) ml/min BUN/Creatinine Ratio (10-20) Glucose (70-99(Fasting)) mg/dl POC Glucose 184 H 156 H (70-99) mg/dl Calcium (8.5-10.1) mg/dl PG Care Time/CCT Total # of Minutes Spent Total Time Spent with Patient: Total time spent is greater than 50% in coordination of care (as documented) at patient's floor/unit and/or counseling patient: Coding Diagnoses Weakness R53.1 Lethargy R53.83 Vomiting and diarrhea R11.10; R19.7 GERD (gastroesophageal reflux disease) K21.9 Esophagitis presence: without esophagitis Schizoaffective disorder F25.1 Schizoaffective disorder type: depressive Anxiety and depression F41.9; F32.9 Microcytic anemia D50.9 History of pulmonary embolism Z86.711 Lactic acidosis E87.2 Restless leg G25.81 Tobacco use Z72.0 Hypothyroid E03.9 Diabetes E11.9; Z79.4 Diabetes mellitus complication status: without complication Diabetes mellitus chcf insulin use: with equipment operator intermodal yard use Diabetes mellitus type: type 2 Neuropathy G62.9 (1) Diabetes Diabetes mellitus complication status: without complication Diabetes mellitus chcf insulin use: with chcf use Diabetes mellitus type: type 2 Qualified Code(s): E11.9 - Type 2 diabetes mellitus without complications; Z79.4 - equipment operator intermodal yard (current) use of insulin (2) Schizoaffective disorder Schizoaffective disorder type: depressive Qualified Code(s): F25.1 - Schizoaffective disorder, depressive type (3) GERD (gastroesophageal reflux disease) Esophagitis presence: without esophagitis Qualified Code(s): K21.9 - Gastro- esophageal reflux disease without esophagitis
[2022-04-14] MEDS ORDERED: INSULIN GLARGINE SOLOSTAR 100 UNITS/ML 3 ML PEN SC SCH (09:00)
[2022-04-14] MEDS ORDERED: FOLIC ACID 1 MG TAB PO SCH (09:00)
[2022-04-14] MEDS ORDERED: ERGOCALCIFEROL 50,000 UNITS 1250 MCG CAP PO SCH (09:00)
[2022-04-14] MEDS: INSULIN ASPART PER UNIT SC SCH ×2 (09:27→12:47)
[2022-04-14] MEDS: CHOLESTYRAMINE LIGHT 4 GM PKT PO SCH (12:00)
--- NOTE | 2022-04-14 12:09 | Discharge Summary ---
Date of Service April 14, 2022 Admission HPI Per Admitting Provider Tierra Gil is a 66-year-old female with history of diabetes, GERD, h/o PE on Xarelto, anxiety/depression, schizoaffective disorder, and GERD who presented to [facility] ED on 04/08 after a ground-level mechanical fall with generalized weakness and inability to get back up. Of note the patient was just admitted to [facility] from 04/05 - 04/07 for acute on chronic diarrhea which improved with IVF repletion (c.diff/stool panel negative at that time). Patient was discharged home under care of her daughter, sister and aunt. Daughter reported that she is unable to care properly for her due to her persistent weakness in context of recent GI symptoms/illness and hospitalization. Does report that her diarrhea has significantly improved since onset ~1 week ago but still has watery diarrhea ~[id number]. Lives in an apartment and was proficient in her ADLs and most iADLs before her recent hospitalization, but now is just "too weak" to take care of herself. Denies fever/chills, chest pain, SOB, vomiting, abdominal pain, or rash. In the ED patient was mildly tachycardic in 100s (same as time of discharge) but VS otherwise stable on room air. CBC/CMP/Mg/TSH unremarkable. CXR unremarkable. Admission Exam Per Admitting Provider General: A&Ox3. NAD. Cooperative. HEENT: Atraumatic, normocephalic. Pulm: CTAB A&P. -wheezes, -rales, -rhonchi. Symmetrical chest rise. No increase work of breathing. No respiratory distress. Cardiac: RRR, -mrg. Radial pulses intact and symmetrical. No LE edema. Abdominal: soft, non-tender, non-distended, BS x 4 Skin: warm, dry, no rash Principal Diagnosis Viral Enteritis, Generalized Weakness Discharge Exam GENERAL : WD/WN female sitting up in chair, eating lunch, NAD. Talkative, pleasant and improvement in mood reported HEENT: head atraumatic, normocephalic, pupils equal/reactive, anicteric sclerae, trachea midline without deviation, mmm Resp: good effort, no audible wheezing, fine bibasilar crackles, faint end expiratory wheeze posterior RUL, on ROOM AIR CV: RRR, no mr/g, no calf tenderness, caprefill wnl GI: +bs, soft, non-tender MSK/Neuro: moves all extremities, no focal deficit Psych: AOx3, pleasant and cooperative Skin: warm, dry Discharge Data Allergies Allergy/AdvReac Type Severity Reaction Status Date / Time egg AdvReac Severe Vomiting Verified 04/08/22 01:44 Penicillins AdvReac Severe Vomiting Verified 04/08/22 01:44 Consultations 04/08/22 02:30 ED Decision to Admit Stat 04/11/22 17:35 Consult Psychiatry Routine Ordered Studies Chest X-Ray 04/08/22 01:31 XR chest 1V portable CLINICAL HISTORY: Weakness. COMPARISON STUDY: Chest radiograph March 19, 2022. FINDINGS: Patient is rotated. Lung volumes are mildly diminished, unchanged. Minimal left basilar opacity favors atelectasis. There is no consolidation to suggest pneumonia. There is no evidence for pulmonary edema. Cardiomediastinal silhouette is normal. IMPRESSION: No acute cardiopulmonary findings. ACT 112: Negative or not required by law. Electronically signed by: Bryn East M.D. 04/08/2022 6:35 AM Hospital Course (1) Weakness: Admitted with generalized weakness following mechanical fall at home; possibly related to viral gastroenteritis. PT/OT recommending rehab --> CM arranged for [facility] Regarding lethargy, patient had been on klonopin 1mg TID which was tapered to discontinuation without increased anxiety (although she is nervous about rehab but hoping for home following short stay) QT was prolonged on admit, now shortened on repeat. Mag/K wnl on repeat (2) Lethargy: Sensorium is significantly improved and remains stable Unclear etiology; medication induced vs. infection vs. combination of such She does take Buspar 15 mg TID, Depakote 1500 mg qhs, Lexapro 20 mg daily, Seroquel 400 mg qhs but has taken these for years. Ammonia level 59, Depakote level 90. Home Klonopin discontinued on 04/10 due to lethargy. She seems to be having continued improvement off of such and this was not resumed Blinds open during day/better sleep cycle encouraged CXR without infection UA without UTI, repeat UA also clear Psych consulted for med list review-- discontinued klonopin as above, no further changes (3) Vomiting and diarrhea: No further nausea today. Patient ate 100% of her lunch No abdominal pain Now improved, related to viral gastroenteritis. Continue Creon and Questran as prescribed. --> increased creon to 2 packets in morning daily as she takes at home (4) GERD (gastroesophageal reflux disease): Continued Protonix, pepcid Stable (5) Schizoaffective disorder: Continued home meds. Discontinued Klonopin due to acute lethargy. (6) Anxiety and depression: Continued home meds, discontinued Klonopin. (7) Microcytic anemia: Continued Ferrous sulfate 325 mg QOD. Hx reported of microcytic anemia, on PO ferrous sulfate daily B12 checked 03/19 and >1500 Of note, folate also checked at that same time and was LOW 2.57 and not on replacement Replacement started and continued while inpatient (8) History of pulmonary embolism: Continue Xarelto 20 mg daily. No chest pain or tightness today. 92% on room air. No tachycardia. No tachypnea. (9) Lactic acidosis: Stable. (10) Restless leg: Continued Requip, ferrous sulfate (11) Tobacco use: Nicotine patch daily ordered Patient states that she is refusing today as it makes her nauseous Discussed need for tobacco abstention. Continued to encourage same (12) Hypothyroid: Levothyroxine 50 mcg daily. TSH 2.66 on 04/08. (13) Diabetes: Hgb A1C 9.4 on 03/20/22. Held home meds while inpatient, resumed at discharge (14) Neuropathy: Neurontin 100 mg qAM and afternoon, 200 mg qhs --> new rx sent with instructions Vitamin b12 1,000 mcg daily (B12 >1500 on last check) (15) Folate deficiency: started supplementation and sent at ma DVT ppx: Xarelto 20 mg daily. Continue home Vit D weekly, Mag oxide 400 mg BID, Thiamine 100 mg BID. Discharge to [facility] arranged Total Time Total Time Spent Total Time Spent (In Minutes): 50 Discharge Plan Discharge Items Patient Disposition: Transfer Halfway Fac Reason For Visit: GENERALIZED WEAKNESS Discharge Diagnosis: Generalized weakness Viral Gastroenteritis Hypomagnesemia Lethargy Tobacco abuse Condition on Discharge: Fair Activity: As commented below Activity Comment: Per physical therapy recommendations. Non-emergency contact: Primary Care Provider Call non-emergency contact if: you have any medication questions, your symptoms worsen and you have a fever Follow-up/Referrals: Dylan Fuentes PA-C [Primary Care Provider] - Diet: Carb Consistent or DM2 Addtl Attending Provider Instructions: 1. Generalized weakness, likely related to viral gastroenteritis Now improved; we do recommend discharge to a [facility] facility ([facility]) for further rehabilitation services. Please continue to increase oral fluid intake. Continue home Creon and Questran as prescribed. 2. Drowsiness We discontinued home Klonopin buy titrating then discontinuing completely due to drowsiness. Recommend continuing to hold this medication and monitoring for benzodiazepine withdrawal and could consider as needed doses but you have been doing well off of these since April 10. Instead, for your neuropathy, you have had your gabapentin changed to 100mg in the morning, 100mg at lunch, and 200mg in the evening. 3. Iron Deficiency, folate deficiency Please continue Ferrous sulfate 325 mg daily. --> Review of prior labs indicated low folate levels and have been started on supplementation for this and can follow up with your PCP regarding labs. 4. Tobacco abuse Please continue Nicotine patch 21 mg in setting of prior tobacco abuse. You will need to taper Nicotine patch every 7 to 14 days. 5. Please schedule an appointment with your primary care provider in 7-10 days to discuss this hospitalization. Please return to the ER with any fever, chest pain, shortness of breath, or for any other symptoms concerning for you. Take care! Pending Studies at Discharge: No Stand-Alone Forms: My [facility] Skilled Items Patient informed of condition?: No DNR: No Discharge Level of Care: Skilled Communicable Disease: No Discharge Prognosis: Improving Lines: None Urinary Catheter: No Medications and DC Order Prescriptions: New nicotine [Nicoderm CQ] 21 mg/24 hr Patch 24 Hour 21 mg transdermal QAM Qty: 14 RF: 0 gabapentin 100 mg Capsule 100 mg PO .per instructions Qty: 90 RF: 0 folic acid 1 mg Tablet 1 mg PO QAM Qty: 30 RF: 0 Continued pantoprazole [Protonix] 40 mg tablet,delayed release (DR/EC) 40 mg PO QAM RF: 0 buspirone 15 mg tablet 15 mg PO TID RF: 0 Creon 12,000-38,000 -60,000 unit capsule,delayed release(DR/EC) 1 cap PO TID RF: 0 Xarelto 20 mg tablet 20 mg PO QAM RF: 0 ropinirole 0.5 mg tablet 0.5 mg PO HS RF: 0 escitalopram oxalate [Lexapro] 20 mg tablet 20 mg PO QAM RF: 0 levothyroxine 50 mcg tablet 50 mcg PO QAM RF: 0 famotidine 20 mg tablet 20 mg PO DAILY RF: 0 glipizide 5 mg Tablet 5 mg PO DAILY 30 Days Qty: 30 RF: 0 ferrous sulfate [Iron (ferrous sulfate)] 325 mg (65 mg iron) tablet 325 mg PO Q OTHER DAY RF: 0 divalproex [Depakote ER] 500 mg tablet extended release 24 hr 1,500 mg PO HS RF: 0 quetiapine [Seroquel] 400 mg tablet 400 mg PO HS RF: 0 cyanocobalamin (vitamin B-12) [Vitamin B-12] 1,000 mcg tablet 1,000 mcg PO BID RF: 0 loratadine [Allergy Relief (loratadine)] 10 mg tablet 10 mg PO QAM RF: 0 thiamine HCl (vitamin B1) [Vitamin B-1] 100 mg tablet 100 mg PO BID RF: 0 ondansetron HCl 4 mg tablet 4 mg PO Q8 PRN (Reason: Nausea And Vomiting) RF: 0 ergocalciferol (vitamin D2) 1,250 mcg (50,000 unit) capsule 1,250 mcg PO WK RF: 0 metformin 500 mg tablet 500 mg PO DAILY RF: 0 magnesium oxide 400 mg (241.3 mg magnesium) Tablet 400 mg PO BID Qty: 60 RF: 0 Changed cholestyramine (with sugar) [Questran] 4 gram powder in packet 2 ea PO DAILY Qty: 0 RF: 0 Discontinued gabapentin [Neurontin] 100 mg capsule See Rx Instructions .ROUTE .COMPLEX RF: 0 clonazepam 1 mg tablet 1 mg PO TID RF: 0 Discharge Orders: Discharge Order (Routine); Ordered 04/14/22 Ordered By: Anabella Adler Admission Data Admit Date/Time: 04/08/22 03:26 Attending Provider: Brigida Simmons Admit Provider: Ric Stallworth Primary Care Provider: Dylan Fuentes Other Providers: Aaron Pickard ; Fanny Santamaira ; Sindi Stout ; Sarah Valdovinos Other Interventions: Discharge Summary Assessment (RN) Last Done: 04/14/22 14:23 Supervising Physician Co-Signing Physician Notes PA Supervision Note: I personally saw and examined the patient. I verified all lopez points and agree with CLARK Adler with the following exceptions and/or additions: S-Pt feeling well on day of discharge. Wants her Questran changed to two packets once daily like she takes at home. No pain anywhere. O- Vitals reviewed Gen: [AAOx3, NAD] HEENT: [anicteric sclerae, EOMI] CV: [RRR no mgr nl S1S2] Pulm: [CTAB no wcr] Abd: [+BS soft NT ND no masses or hernias] Ext: [no edema, 2+ DP pulses] Skin: [no rashes, warm/dry] Neuro: [full strength throughout] A/P-66 yo female here with weakness and fall after discharge from hospital for diarrhea and weakness. Stable for dc to rehab today Coding Level of Care Code D/C DAY MANAGEMENT >30 MINS Diagnoses Weakness R53.1 Lethargy R53.83 Vomiting and diarrhea R11.10; R19.7 GERD (gastroesophageal reflux disease) K21.9 Esophagitis presence: without esophagitis Schizoaffective disorder F25.1 Schizoaffective disorder type: depressive Anxiety and depression F41.9; F32.9 Microcytic anemia D50.9 History of pulmonary embolism Z86.711 Lactic acidosis E87.2 Restless leg G25.81 Tobacco use Z72.0 Hypothyroid E03.9 Diabetes E11.9; Z79.4 Diabetes mellitus complication status: without complication Diabetes mellitus [facility] insulin use: with [facility] use Diabetes mellitus type: type 2 Neuropathy G62.9 Folate deficiency E53.8
== END 2022-04-14 15:36 | DRG 392 ==
LOC: ED 01:08 → 2S 03:26 → SUATTDRO 03:26 → 2S 04:37 → 3N 04-09 18:09

== ENCOUNTER 2022-06-16 07:59 | Inpatient (IN) ==
[2022-06-16] MEDS ORDERED: SODIUM CHLORIDE 0.9% 1000ML 1,000 ML IV ONE (08:09)
[2022-06-16] MEDS ORDERED: ONDANSETRON INJ 2 MG/ML 2 ML VIAL ONE (08:09)
[2022-06-16] MEDS ORDERED: ONDANSETRON INJ 2 MG/ML 2 ML VIAL IV STA (08:09)
--- NOTE | 2022-06-16 08:38 | Emergency Department Note ---
Impression & Plan Nausea, vomiting, and diarrhea, Generalized weakness, Hypomagnesemia, Pulmonary edema ED Provider Note Name: SID JAVIER Age: 66 Sex: F Arrives Via: Ambulance Informant: Patient ED Provider: Ric Raya MD Chief Complaint: Generalized weakness Impression: As per impressions above Medical Decision Makin-year-old female with extensive past medical history including diabetes, GERD, schizoaffective disorder, failure to thrive, hyperparathyroidism, amongst other medical comorbidities arrives for evaluation of severe generalized weakness in the setting of nausea vomiting diarrhea for the last 24 hours. Patient is heavily soiled with stool on arrival. She is dry heaving and she is quite tachycardic and dry appearing. She was given 1 L of fluid and she appears much improved however oxygen started dropping. I chest x-ray does show an element of developing pulmonary edema. Labs are fortunately not consistent with renal failure however she is severely hypomagnesemia beyond her baseline. Given these findings hospitalization indicated. She does not have peritonitis on examination denies any abdominal pain and her abdominal exam is not concerning at this time. She does not appear obstructed. Reviewed with hospitalist will evaluate further. Given her amount of dehydration I do not think that giving her Lasix would be reasonable at this time as she is breathing comfortably on just 2 L nasal cannula. Prior Medical Record and Triage/Nursing Notes reviewed by Me Additional history obtained from chart Differentials:Infection, dehydration, metabolic abnormality, hypo/hyperglycemia, electrolyte disturbance, anemia, hypoxia, cardiac sources, intracerebral event, toxicologic, neurologic, as well as other pathologies. Vital Signs: reviewed and remarkable for tachycardia Interventions: Normal saline 1 L IV, Zofran 4 mg IV, magnesium 1 g IV Labs:Reviewed and remarkable for hypomagnesemia Imagin view chest x-ray does show some developing pulmonary edema as per radiologist Consults: Dr Lisa VELEZ Hospitalist Plan: Disposition:Hospitalization. Condition: Good History of Present Illness:66-year-old female arrives for evaluation of vomiting and diarrhea. Patient states 24 hours of severe nausea, vomiting, diarrhea. She states she cannot control her bowels at all. She has been able to get to the bathroom and just stools on her self. She denies any abdominal pain, fevers, chills. She does note that she is feeling increasingly weak and severely thirsty. She says she is so weak she cannot get up now. She denies any current chest pain, shortness of breath, headache, neck pain, back pain, urinary symptoms, leg swelling, rashes nor other concerning signs or symptoms. She took no medications prior to arrival. Nothing makes this better or worse other than if she tries eating or drinking anything she vomits it up immediately. ROS: See above HPI for pertinent positives & negatives. A total of 10 systems reviewed and were otherwise negative. Past Medical History:See Below Past Surgical History:See Below Family History:See Below Social History:See Below Home Medications:See Below Allergies:See Below Vitals:Blood Pressure: 147/88, Pulse 115, RR 22, T 36.7C, O2 90% on RA Physical Exam: GENERAL: Patient is tired/uncomfortable appearing and in minimal distress. Dehydrated. Abdomen and legs covered in stool EYES: No scleral icterus, unremarkable pupils. ENT: Mucous membranes dry, no nasal congestion. NECK: No masses appreciated, nomeningismus, trachea is midline. RESPIRATORY: No dyspnea. Clear to auscultation and equal bilaterally. No wheeze, no rhonchi. CARDIOVASCULAR: Tachy.No murmurs, rubs, gallops appreciated. GASTROINTESTINAL: Abdomen soft, non-tender, no peritonitis.Bowel sounds positive.No masses appreciated. BACK: No midline tenderness, no CVA tenderness EXTREMITIES: Normal motion all extremities, no cyanosis, no edema. NEUROLOGIC: Alert and oriented, no acute motor or sensory deficits, no focal weakness, cranial nerves grossly intact. SKIN: No rash, no jaundice, no diaphoresis. PSYCH: Appropriate GCS: 15 ED Course: Times/Reassessments: Patient notes she is feeling much better after Zofran and fluids. She is mildly hypoxic requiring some nasal cannula O2. Chest x-ray does show some developing pulmonary congestion. She is not short of breath and denies any difficulty breathing at this time. Ric Raya MD Past Med/Surg History Medical History Acute hyponatremia Anemia Anxiety and depression Arthritis Aspiration pneumonia Diabetes GERD (gastroesophageal reflux disease) History of pulmonary embolism Hyperparathyroidism Hypomagnesemia Hypoxia Iron deficiency anemia Irritable bowel syndrome Schizoaffective disorder Smoking Vomiting and diarrhea Weakness Surgical History History of section x2 Family History (Updated 06/16/22 @ 12:33 by Elmo Gonzalez) Denies family history of Inflammatory bowel disease Social History (Updated 06/16/22 @ 12:33 by Elmo Gonzalez) Smoking Status: Current every day smoker Tobacco Type: Cigarettes Cigarettes Per Day: 2-3 packs; Second Hand Exposure: No; Hx Alcohol Use: No Hx Substance Use: No Preferred Language: Citizen Of [place] Communication Ability: Effective Shoe Lining Fitter Required: No Beliefs That Will Affect Care: None marital status: Current Living Situation: Alone Current Living Situation Comment: Lives with Daughter How many Children do You have: 2 Feels Safe at Home: Yes Assistive Devices: Bedside Commode and Walker Allergies Allergies Allergy/AdvReac Type Severity Reaction Status Date / Time egg AdvReac Severe Vomiting Verified 04/08/22 01:44 Penicillins AdvReac Severe Vomiting Verified 04/08/22 01:44 Home Meds Home Medications Medication Instructions Recorded Confirmed buspirone 15 mg tablet 15 mg PO TID 10/25/20 06/16/22 [id number] 1 cap PO TID 10/25/20 06/16/22 12,000-38,000-60,000 unit capsule,delayed rel (Creon) pantoprazole 40 mg tablet,delayed 40 mg PO QAM 10/25/20 06/16/22 release (Protonix) rivaroxaban 20 mg tablet (Xarelto) 20 mg PO QAM 10/25/20 06/16/22 escitalopram oxalate 20 mg tablet 20 mg PO QAM 03/18/21 04/08/22 (Lexapro) ropinirole 0.5 mg tablet 0.5 mg PO HS 03/18/21 06/16/22 divalproex 500 mg tablet,extended 1,500 mg PO HS 06/03/21 06/16/22 release 24 hr (Depakote ER) ferrous sulfate 325 mg (65 mg 325 mg PO Q OTHER DAY 06/03/21 06/16/22 iron) tablet (Iron (ferrous sulfate)) quetiapine 400 mg tablet (Seroquel) 400 mg PO HS 06/03/21 06/16/22 cyanocobalamin (vitamin B-12) 1,000 mcg PO BID 08/05/21 06/16/22 1,000 mcg tablet (Vitamin B-12) loratadine 10 mg tablet (Allergy 10 mg PO QAM 08/05/21 06/16/22 Relief (loratadine)) thiamine HCl (vitamin B1) 100 mg 100 mg PO BID 10/11/21 06/16/22 tablet (Vitamin B-1) levothyroxine 50 mcg tablet 50 mcg PO QAM 01/21/22 06/16/22 ergocalciferol (vitamin D2) 1,250 1,250 mcg PO WK 02/02/22 04/08/22 mcg (50,000 unit) capsule ondansetron HCl 4 mg tablet 4 mg PO Q8 PRN Nausea And Vomiting 02/02/22 04/08/22 famotidine 20 mg tablet 20 mg PO DAILY 02/25/22 06/16/22 metformin 500 mg tablet 500 mg PO DAILY 04/05/22 06/16/22 clonazepam 1 mg tablet 1 mg PO TID PRN Anxiety 06/16/22 06/16/22 glipizide 5 mg tablet 5 mg PO DAILY 06/16/22 06/16/22 Previous Rx's Medication Instructions Recorded magnesium oxide 400 mg (241.3 mg 400 mg PO BID #60 tabs 04/07/22 magnesium) tablet gabapentin 100 mg capsule 100 mg PO .per instructions #90 04/11/22 caps nicotine 21 mg/24 hr daily 21 mg transdermal QAM #14 ea 04/11/22 transdermal patch (Nicoderm CQ) cholestyramine (with sugar) 4 gram 2 ea PO DAILY #0 ea 04/14/22 powder for susp in a packet (Questran) folic acid 1 mg tablet 1 mg PO QAM #30 tabs 04/14/22 Results & Data (ED) Vital Signs Vital Signs - 24 hr 06/16/22 07:52 06/16/22 08:38 06/16/22 08:09 Temperature 37.1 C Temperature Source Oral Pulse Rate 115 H 116 H Pulse Rate from SpO2 Sensor 118 H Pulse Rhythm Regular Pulse Strength Normal Respiratory Rate 16 25 H Respiratory Effort / Characteristics Non-Labored Respiratory Depth Normal Blood Pressure 147/88 H Blood Pressure Mean 107 Pulse Oximetry 88 L 95 92 Oxygen Delivery Method Room Air Nasal Cannula Oxygen Flow Rate 2 Sepsis Recent Fever Within 48 Hours No Sepsis New/Unexplained Change in Mental Status No Sepsis Action Taken by Nursing No Action Required 06/16/22 08:30 06/16/22 08:57 06/16/22 08:57 Temperature Temperature Source Pulse Rate 116 H 112 H Pulse Rate from SpO2 Sensor 112 H Pulse Rhythm Pulse Strength Respiratory Rate 19 23 Respiratory Effort / Characteristics Respiratory Depth Blood Pressure 94/76 L Blood Pressure Mean 82 Pulse Oximetry 93 Oxygen Delivery Method Oxygen Flow Rate Sepsis Recent Fever Within 48 Hours Sepsis New/Unexplained Change in Mental Status Sepsis Action Taken by Nursing 06/16/22 09:00 06/16/22 09:43 06/16/22 10:00 Temperature Temperature Source Pulse Rate 113 H 106 H Pulse Rate from SpO2 Sensor 113 H 107 H Pulse Rhythm Pulse Strength Respiratory Rate 25 H 17 Respiratory Effort / Characteristics Respiratory Depth Blood Pressure 118/87 Blood Pressure Mean 97 Pulse Oximetry 93 95 Oxygen Delivery Method Oxygen Flow Rate Sepsis Recent Fever Within 48 Hours Sepsis New/Unexplained Change in Mental Status Sepsis Action Taken by Nursing 06/16/22 10:00 06/16/22 10:30 06/16/22 10:30 Temperature Temperature Source Pulse Rate 103 H Pulse Rate from SpO2 Sensor 104 H 101 H Pulse Rhythm Pulse Strength Respiratory Rate 19 25 H Respiratory Effort / Characteristics Respiratory Depth Blood Pressure 109/71 Blood Pressure Mean 83 Pulse Oximetry 95 94 Oxygen Delivery Method Oxygen Flow Rate Sepsis Recent Fever Within 48 Hours Sepsis New/Unexplained Change in Mental Status Sepsis Action Taken by Nursing Laboratory Data Result diagrams: 06/16/22 08:51 06/16/22 08:51 Lab Results 06/16/22 06/16/22 06/16/22 Range/Units 08:51 08:51 08:56 WBC 4.19 L (4.8-10.8) K/ul RBC 5.30 H (3.93-5.22) M/uL Hgb 16.5 H (12.0-16.0) g/dl Hct 49.4 H (34.1-44.9) % MCV 93.2 (80.0-100.0) fL MCH 31.1 (25.0-34.0) pg MCHC 33.4 (32.0-36.0) g/dL RDW Std Deviation 43.6 (36.4-46.3) fL RDW Coeff of [place] 12.9 (11.5-14.5) % Plt Count 184 (130-400) K/uL MPV 10.4 (9.4-12.3) fL Immature Gran % (Auto) 0.2 % Neut % (Auto) 59.2 % Lymph % (Auto) 23.9 % [place] % (Auto) 11.7 % Eos % (Auto) 4.3 % Baso % (Auto) 0.7 % Neut # (Auto) 2.48 (1.4-6.5) K/uL Lymph # (Auto) 1.00 L (1.2-3.4) K/uL [place] # (Auto) 0.49 (0.24-0.82) K/uL Eos # (Auto) 0.18 (0-0.50) K/uL Baso # (Auto) 0.03 (0-0.2) K/uL Immature Gran # (Auto) 0.01 (0.00-0.02) K/uL Sodium 136 (136-145) mmol/L Potassium 4.4 (3.5-5.1) mmol/L Chloride 102 (98-107) mmol/L Carbon Dioxide 23 (21-32) mmol/L Anion Gap 11 (3-11) BUN 11 (6-23) mg/dl Creatinine 0.98 (0.6-1.2) mg/dl Est Cr Clr Drug Dosing 113.3 ml/min Est GFR ( Amer) 70.7 ml/min Est GFR (Non-Af Amer) 61.0 ml/min BUN/Creatinine Ratio 11.2 (10-20) Glucose 173 H (70-99(Fasting)) mg/dl Calcium 9.2 (8.5-10.1) mg/dl Magnesium 1.2 L (1.7-2.4) mg/dl Total Bilirubin 0.7 (0.2-1.0) mg/dl Direct Bilirubin 0.2 (0-0.2) mg/dl AST 49 H (13-39) U/L ALT 24 (7-52) U/L Alkaline Phosphatase 101 (34-104) U/L Troponin I High Sens 4.5 (0-14) pg/ml Total Protein 7.1 (6.0-8.3) gm/dl Albumin 3.7 (3.4-5.0) gm/dl Lipase 16 (11-82) U/L Urine Color Urine Appearance (Clear) Urine pH (4.5-7.5) Ur Specific [place] (1.000-1.030) Urine Protein (Negative) Urine Glucose (UA) (Negative) Urine Ketones (Negative) Urine Blood (Negative) Urine Nitrite (Negative) Urine Bilirubin (Negative) Urine Urobilinogen (Negative) Ur Leukocyte Esterase (Negative) Stl C. cayetanensis PCR (NotDetected) Stool Rotavirus A PCR (NotDetected) Stl Adenov F 40/41 PCR (NotDetected) Stool Astrovirus (PCR) (NotDetected) Stool Campylobacter PCR (NotDetected) Stl C. diff Tox A/B PCR (NotDetected) Stool Cryptosporidium PCR (NotDetected) Stl E.coli Shiga Tox PCR (NotDetected) Stl Enterotoxigenic E PCR (NotDetected) Stool EPEC (PCR) (NotDetected) Stool EAEC (PCR) (NotDetected) Stl E. histolytica PCR (NotDetected) Stool Giardia Lamblia PCR (NotDetected) Stool Salmonella PCR (NotDetected) Stool Sapovirus (PCR) (NotDetected) Stl P. shigelloides PCR (NotDetected) Stl Shigella/EIEC PCR (NotDetected) St Y.enterocolitica PCR (NotDetected) Stool Vibrio (PCR) (NotDetected) Stl Vibrio cholerae PCR (NotDetected) Stl Norovirus GI/GII PCR (NotDetected) SARS-CoV-2, RNA, NAAT NEGATIVE (NEGATIVE) 06/16/22 06/16/22 Range/Units 09:44 10:00 WBC (4.8-10.8) K/ul RBC (3.93-5.22) M/uL Hgb (12.0-16.0) g/dl Hct (34.1-44.9) % MCV (80.0-100.0) fL MCH (25.0-34.0) pg MCHC (32.0-36.0) g/dL RDW Std Deviation (36.4-46.3) fL RDW Coeff of [place] (11.5-14.5) % Plt Count (130-400) K/uL MPV (9.4-12.3) fL Immature Gran % (Auto) % Neut % (Auto) % Lymph % (Auto) % [place] % (Auto) % Eos % (Auto) % Baso % (Auto) % Neut # (Auto) (1.4-6.5) K/uL Lymph # (Auto) (1.2-3.4) K/uL [place] # (Auto) (0.24-0.82) K/uL Eos # (Auto) (0-0.50) K/uL Baso # (Auto) (0-0.2) K/uL Immature Gran # (Auto) (0.00-0.02) K/uL Sodium (136-145) mmol/L Potassium (3.5-5.1) mmol/L Chloride (98-107) mmol/L Carbon Dioxide (21-32) mmol/L Anion Gap (3-11) BUN (6-23) mg/dl Creatinine (0.6-1.2) mg/dl Est Cr Clr Drug Dosing ml/min Est GFR ( Amer) ml/min Est GFR (Non-Af Amer) ml/min BUN/Creatinine Ratio (10-20) Glucose (70-99(Fasting)) mg/dl Calcium (8.5-10.1) mg/dl Magnesium (1.7-2.4) mg/dl Total Bilirubin (0.2-1.0) mg/dl Direct Bilirubin (0-0.2) mg/dl AST (13-39) U/L ALT (7-52) U/L Alkaline Phosphatase (34-104) U/L Troponin I High Sens (0-14) pg/ml Total Protein (6.0-8.3) gm/dl Albumin (3.4-5.0) gm/dl Lipase (11-82) U/L Urine Color Yellow Urine Appearance Clear (Clear) Urine pH 5.5 (4.5-7.5) Ur Specific [place] 1.012 (1.000-1.030) Urine Protein Negative (Negative) Urine Glucose (UA) Negative (Negative) Urine Ketones 1+ H (Negative) Urine Blood Negative (Negative) Urine Nitrite Negative (Negative) Urine Bilirubin Negative (Negative) Urine Urobilinogen Negative (Negative) Ur Leukocyte Esterase Negative (Negative) Stl C. cayetanensis PCR Not Detected (NotDetected) Stool Rotavirus A PCR Not Detected (NotDetected) Stl Adenov F 40/41 PCR Not Detected (NotDetected) Stool Astrovirus (PCR) Not Detected (NotDetected) Stool Campylobacter PCR Not Detected (NotDetected) Stl C. diff Tox A/B PCR Not Detected (NotDetected) Stool Cryptosporidium PCR Not Detected (NotDetected) Stl E.coli Shiga Tox PCR Not Detected (NotDetected) Stl Enterotoxigenic E PCR Not Detected (NotDetected) Stool EPEC (PCR) Not Detected (NotDetected) Stool EAEC (PCR) Not Detected (NotDetected) Stl E. histolytica PCR Not Detected (NotDetected) Stool Giardia Lamblia PCR Not Detected (NotDetected) Stool Salmonella PCR Not Detected (NotDetected) Stool Sapovirus (PCR) Not Detected (NotDetected) Stl P. shigelloides PCR Not Detected (NotDetected) Stl Shigella/EIEC PCR Not Detected (NotDetected) St Y.enterocolitica PCR Not Detected (NotDetected) Stool Vibrio (PCR) Not Detected (NotDetected) Stl Vibrio cholerae PCR Not Detected (NotDetected) Stl Norovirus GI/GII PCR Not Detected (NotDetected) SARS-CoV-2, RNA, NAAT (NEGATIVE) Administered Medications Lipase/Protease/Amylase (Pancreaze (Lipase 10,500u) Cap) 1 cap PO TID [facility] Stop: 07/16/22 15:29 Last Admin: 06/16/22 19:37 Dose: 1 cap Documented By: Admin: 06/16/22 16:29 Dose: 1 cap Documented By: [id number] Buspirone HCl (Buspirone 15 Mg Tab) 15 mg PO TID [facility] Stop: 07/16/22 14:29 Last Admin: 06/16/22 19:38 Dose: 15 mg Documented By: Admin: 06/16/22 16:11 Dose: 15 mg Documented By: [id number] Cholestyramine Resin (Cholestyramine Light 4 Gm Pkt) 4 gm PO BID [facility] Stop: 07/16/22 20:59 Last Admin: 06/16/22 19:37 Dose: 4 gm Documented By: RODERICK Cyanocobalamin (Cyanocobalamin (B-12) 500 Mcg Tablet) 1,000 mcg PO BID [facility] Stop: 07/16/22 20:59 Last Admin: 06/16/22 19:37 Dose: 1,000 mcg Documented By: RODERICK Divalproex Sodium (Divalproex Extended Release 500 Mg Tab) 1,500 mg PO [facility] Stop: 07/16/22 20:59 Last Admin: 06/16/22 19:40 Dose: 1,500 mg Documented By: RODERICK Ferrous Sulfate (Ferrous Sulfate 325 Mg Tab) 325 mg PO Q48H [facility] Stop: 07/16/22 14:34 Last Admin: 06/16/22 16:11 Dose: 325 mg Documented By: [id number] Gabapentin (Gabapentin 100 Mg Cap) 100 mg PO BID@0900,1200 [facility] Stop: 07/16/22 14:06 Last Admin: 06/16/22 16:15 Dose: 100 mg Documented By: [id number] Gabapentin (Gabapentin 100 Mg Cap) 200 mg PO [facility] Stop: 07/16/22 20:59 Last Admin: 06/16/22 19:39 Dose: 200 mg Documented By: RODERICK Lactated Ringer's (Lr) 1,000 mls @ 125 mls/hr IV .Q8H [facility] Stop: 06/17/22 04:29 Last Admin: 06/16/22 19:36 Dose: 125 mls/hr Documented By: Infusion: 06/16/22 19:36 Dose: 125 mls/hr Documented By: Admin: 06/16/22 13:12 Dose: 125 mls/hr Documented By: [email or web address] Insulin Aspart (Insulin Aspart Per Unit) 0 units SC [facility] Stop: 07/16/22 14:06 Last Admin: 06/16/22 20:20 Dose: Not Given Documented By: Admin: 06/16/22 17:49 Dose: Not Given Documented By: [id number] Admin: 06/16/22 16:43 Dose: 2 units Documented By: [id number] Co-signed By: SARITA Nystatin (Nystatin Powder 15gm Btl) 1 appln EXT TID [facility] Stop: 07/16/22 17:44 Last Admin: 06/16/22 19:40 Dose: 1 appln Documented By: Admin: 06/16/22 18:18 Dose: Not Given Documented By: [id number] Ondansetron HCl (Ondansetron Inj 2 Mg/Ml 2 Ml Vial) 4 mg IV Q6H PRN PRN Reason: Nausea Stop: 07/16/22 14:06 Last Admin: 06/16/22 17:18 Dose: 4 mg Documented By: [id number] Quetiapine Fumarate (Quetiapine Fumarate 200 Mg Tab) 400 mg PO [facility] Stop: 07/16/22 20:59 Last Admin: 06/16/22 19:38 Dose: 400 mg Documented By: RODERICK Ropinirole HCl (Ropinirole Hcl 0.25 Mg Tablet) 0.5 mg PO [facility] Stop: 07/16/22 20:59 Last Admin: 06/16/22 19:38 Dose: 0.5 mg Documented By: RODERICK Thiamine HCl (Thiamine Hcl 100 Mg Tab) 100 mg PO BID [facility] Stop: 07/16/22 20:59 Last Admin: 06/16/22 19:38 Dose: 100 mg Documented By: RODERICK Discontinued Medications Sodium Chloride (Nss 1000ml) 1,000 mls @ 999 mls/hr IV .Q1H1M ONE Stop: 06/16/22 09:09 Last Infusion: 06/16/22 09:27 Dose: 0 mls/hr Documented By: Admin: 06/16/22 08:23 Dose: 999 mls/hr Documented By: LEONIDES Magnesium Sulfate/Dextrose (Magnesium Sulfate / D5w) 1 gm in 100 mls @ 100 mls/hr IV NOW STA Stop: 06/16/22 10:33 Last Infusion: 06/16/22 11:56 Dose: 0 mls/hr Documented By: Admin: 06/16/22 09:43 Dose: 100 mls/hr Documented By: LEONIDES Magnesium Sulfate/Dextrose (Magnesium Sulfate / D5w) 1 gm in 100 mls @ 50 mls/hr IV ONE ONE Stop: 06/16/22 13:14 Last Infusion: 06/16/22 13:22 Dose: 0 mls/hr Documented By: Admin: 06/16/22 11:22 Dose: 50 mls/hr Documented By: GOLDIE Magnesium Sulfate/Dextrose (Magnesium Sulfate / D5w) 1 gm in 100 mls @ 50 mls/hr IV Q2H [facility] Stop: 06/16/22 20:06 Last Admin: 06/16/22 19:35 Dose: 50 mls/hr Documented By: Infusion: 06/16/22 19:35 Dose: 50 mls/hr Documented By: Admin: 06/16/22 18:44 Dose: 50 mls/hr Documented By: [id number] Infusion: 06/16/22 18:10 Dose: 50 mls/hr Documented By: [id number] Admin: 06/16/22 16:10 Dose: 50 mls/hr Documented By: [id number] Ioversol (Optiray 320 100ml) 95 ml IV ONCE ONE Stop: 06/16/22 17:53 Last Admin: 06/16/22 17:57 Dose: 95 ml Documented By: TYSON Ondansetron HCl (Ondansetron Inj 2 Mg/Ml 2 Ml Vial) Confirm Administered Dose 4 mg .ROUTE .STK-MED ONE Stop: 06/16/22 08:10 Last Admin: 06/16/22 08:40 Dose: Not Given Documented By: LEONIDES Ondansetron HCl (Ondansetron Inj 2 Mg/Ml 2 Ml Vial) 4 mg IV NOW STA Stop: 06/16/22 08:10 Last Admin: 06/16/22 08:23 Dose: 4 mg Documented By: LEONIDES Rivaroxaban (Rivaroxaban 20 Mg Tab) 20 mg PO ONE ONE Stop: 06/16/22 12:16 Last Admin: 06/16/22 12:44 Dose: 20 mg Documented By: GOLDIE Imaging Data Radiologist's Impression: Chest X-Ray 06/16/22 08:54 XR chest 1V portable HISTORY: hypoxia COMPARISON: Chest 04/08/2022. FINDINGS: There are low lung volumes. Cardiac silhouette is mildly enlarged. There is progressive perihilar interstitial/vascular thickening likely represen ting mild pulmonary edema. No pleural effusions. No pneumothorax. IMPRESSION: Cardiomegaly with progressive perihilar interstitial/vascular thickening. This likely represents developing pulmonary edema. ACT 112: Negative or not required by law. Electronically signed by: Wilfredo Byers M.D. 06/16/2022 9:47 AM Discharge Plan Visit Data Chief Complaint: Vomiting Stated Complaint: nausea ED Provider: Ric Raya Discharge Problem: Nausea, vomiting, and diarrhea, Generalized weakness, Hypomagnesemia, Pulmonary edema Patient Disposition: Admitted As Inpatient Discharge Instructions Interventions: ED Discharge Assessment Last Done: 06/16/22 14:00 : Pulmonary edema Qualifiers: Chronicity: acute Qualified Code(s): J81.0 - Acute pulmonary edema
[2022-06-16 09:07] LABS: Basophils # (auto) 0.03 K/uL (0-0.2); Basophils % (auto) 0.7 %; Eosinophils # (auto) 0.18 K/uL (0-0.50); Eosinophils % (auto) 4.3 %; Hematocrit (blood only) 49.4 % (34.1-44.9); Hemoglobin 16.5 g/dl (12.0-16.0); Immature Granulocytes # (auto) 0.01 K/uL (0.00-0.02); Immature Granulocytes % (auto) 0.2 %; Lymphocytes % (auto) 23.9 %; Mean Corpuscular Hemoglobin 31.1 pg (25.0-34.0); Mean Corpuscular Hgb Conc 33.4 g/dL (32.0-36.0); Mean Corpuscular Volume 93.2 fL (80.0-100.0); Mean Platelet Volume 10.4 fL (9.4-12.3); Monocytes # (auto) 0.49 K/uL (0.24-0.82); Monocytes % (auto) 11.7 %; Neutrophils # (auto) 2.48 K/uL (1.4-6.5); Neutrophils % (auto) 59.2 %; Platelet Count 184 K/uL (130-400); RDW Coefficient of Variation 12.9 % (11.5-14.5); RDW Standard Deviation 43.6 fL (36.4-46.3); White Blood Count 4.19 K/ul (4.8-10.8)
[2022-06-16 09:31] LABS: Albumin Level 3.7 gm/dl (3.4-5.0); BUN Creatinine Ratio 11.2 (10-20); Bilirubin Direct 0.2 mg/dl (0-0.2); Bilirubin,Total 0.7 mg/dl (0.2-1.0); Calcium 9.2 mg/dl (8.5-10.1); Creatinine Clr Calc Pharmacy 113.3 ml/min; Est GFR (African American) 70.7 ml/min; Magnesium 1.2 mg/dl (1.7-2.4); Potassium 4.4 mmol/L (3.5-5.1); Total Protein 7.1 gm/dl (6.0-8.3)
[2022-06-16 09:34] LABS: Troponin I High Sensitivity 4.5 pg/ml (0-14)
[2022-06-16] MEDS ORDERED: MAGNESIUM SULFATE / D5W 1 GM/100 ML BAG IV STA (09:34)
--- NOTE | 2022-06-16 09:49 | XRay Report ---
XR chest 1V portable HISTORY: hypoxia COMPARISON: Chest 04/08/2022. FINDINGS: There are low lung volumes. Cardiac silhouette is mildly enlarged. There is progressive per ihilar interstitial/vascular thickening likely representing mild pulmonary edema. No pleural effusion s. No pneumothorax. IMPRESSION: Cardiomegaly with progressive perihilar interstitial/vascular thickening. This likely represents deve loping pulmonary edema. ACT 112: Negative or not required by law. Electronically signed by: Wilfredo Byers M.D. 06/16/2022 9:47 AM
--- NOTE | 2022-06-16 10:10 | History & Physical Report ---
Date of Service June 16, 2022 Assessment & Plan (1) Vomiting and diarrhea: Plan: - Sudden onset last evening, with copious episodes of nonbloody emesis nonbloody diarrhea. No abdominal pain or fevers. Patient with a history of diarrhea, suspected to be overflow diarrhea and possibly related to side effects of medications after extensive GI work-up in April 2021 including colonoscopy and EGD were largely unremarkable. Does carry diagnosis of IBS on several medicat ions which may cause diarrhea, notably metformin and Questran. Abdomen is somewhat distended, however she is keeping liquids down and continues to have output from below. Low suspicion for obstruction at this time. - For now, differential includes gastroenteritis versus food poisoning. Low WBC favors viral etiology. - Stool panel pending, if negative overall, will obtain imaging of the abdomen to evaluate for other sources vomiting and diarrhea. - Low suspicion for C. difficile and patient lives at home, has not been on recent antibiotics, however had several hospitalizations in late March. On C. difficile without, will provide patient with antidiarrheal. - IV Zofran for nausea/vomiting, however patient has history of prolonged QT interval, on quetiapine at home which carries risk of prolonged QT interval. Also with low mag. Will try to use Zofran sparingly. - Continue Creon and Questran. (2) Hypomagnesemia: Plan: - 1.2, in the setting of acute vomiting and diarrhea. - Repleted with 1 g in ED, will order 1 additional gram while in ED and 3g to be given on floor. - Recheck mag with am labs. - Hold magnesium oxide for now given diarrhea. (3) Diabetes: Plan: - Presenting sugar 173, on glipizide and metformin at home. - Hold oral meds. Patient had a glycemic consult on last admission: * Basal insulin * Lantus 20 units SQ daily * 10 units HS for BSG > 140mg/dl * Bolus insulin * Goal 110 mg/dL - 140 mg/dL * CF: 20 mg/dL/unit ; CR: 1 unit per 7 grams CHO -Continue B12 and gabapentin for neuropathy. - On previous admissions, was recommended patient stopped taking metformin due to chronic lactic acidosis. May also be causing her diarrhea. (4) GERD (gastroesophageal reflux disease): Plan: - Continue Protonix and Pepcid. (5) Schizoaffective disorder: Plan: - Continue home meds: Depakote 1,500 mg HS. (6) Anxiety and depression: Plan: - Continue Lexapro 20 mg, BuSpar 15 mg TID, Klonopin 1 mg TID, Seroquel 400 mg HS. - On last admission, patient was lethargic, so Klonopin was rapidly stopped as it was thought this may have been playing a role. Patient continued to be lethargic despite rapid taper, did not experience withdrawal symptoms. It appears it was recently refilled despite being d/c'd in March on discharge. Would continue for now as she has been on this for many years and stopping it doesn't seem to make more alert, but would dose as prn instead of scheduled. (7) History of pulmonary embolism: Plan: - Continue Xarelto 20 mg daily. Today's dose given in ED. - Patient mildly tachycardic on presentation which is more likely related to being dehydrated from vomiting and diarrhea. 88% on RA, however has a longstanding history of 1+ PPD, O2 sats appear to typically be in low 90s on previous admissions. Low concern for VTE as she reports compliance with Xarelto other than missing today's dose due to illness. (8) Iron deficiency anemia: Plan: - Hgb 16.5. - Continue ferrous sulfate 325 mg QOD. - On B12 and folate supplementation. (9) Restless leg: Plan: - Continue ropinirole 0.5 mg HS. (10) Tobacco abuse: Plan: - Patient continues to smoke 1+ pack/day, not interested in quitting. - Continue to encourage smoking cessation. - Nicotine patch ordered. - Patient was placed on 2L NC in ED for SpO2 88%, now SpO2 > 95%. No complaints of SOB, CORREA. Suspect she may have underlying COPD given her tobacco history. (11) Hypothyroid: Plan: - Continue levothyroxine 50 mcg daily. (12) Folate deficiency: Plan: - Patient was deficienct on last admission, folate replacement was initiated. - Continue folic acid supplementation. Recheck level with AM labs. Plan - Admit to med/tele for hypomagnesemia, hx of prolonged QTC, requiring antiemetics during admission. - SCDs, home Xarelto for VTE ppx. - Full Code. History of Present Illness Chief Complaint: vomiting, diarrhea x 1 day Primary Care Provider: Dylan Fuentes PA-C Tierra Gil is a 66-year-old female with a past medical history significant for diabetes, GERD, PE currently on Xarelto, anxiety and depression, schizoaffective disorder, RLS, hypothyroidism, and GERD who presents today with vomiting and diarrhea that started last evening. Last evening, she felt she had to move her bowels, initially felt constipated and like she would not be able to, however had an episode of explosive diarrhea. This continued throughout the night, she states she has had >10 episodes of nonbloody bowel movements or diarrhea. She has also been nauseous since then and has vomited more than 5 times. She denies any fever or chills with this, nor does she have abdominal pain anywhere. This seemingly came out of nowhere. Yesterday, she ate crackers and Manwich out of a can that she thinks could have been , however she is unsure. Previously had been feeling well, she has no sick contacts at home, no one with similar symptoms. No recent antibiotic use or abdominal surgeries. She denies a history of any abdominal procedures. In ED, she is tachycardic with HR in 110s, initially presented 88% on room air, now SPO2 >95% on 2 L NC, otherwise VS WNL. Labs significant for CBC 4.19, glucose 173, magnesium 1.2, AST 49. 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 Allergies Allergy/AdvReac Type Severity Reaction Status Date / Time egg AdvReac Severe Vomiting Verified 04/08/22 01:44 Penicillins AdvReac Severe Vomiting Verified 04/08/22 01:44 Home Medications Medication Instructions Recorded Confirmed Type buspirone 15 mg tablet 15 mg PO TID 10/25/20 06/16/22 History kgosoy-oqpyrhgm-jdhdrsp 1 cap PO TID 10/25/20 06/16/22 History 12,000-38,000-60,000 unit capsule,delayed rel (Creon) pantoprazole 40 mg tablet,delayed 40 mg PO QAM 10/25/20 06/16/22 History release (Protonix) rivaroxaban 20 mg tablet (Xarelto) 20 mg PO QAM 10/25/20 06/16/22 History escitalopram oxalate 20 mg tablet 20 mg PO QAM 03/18/21 04/08/22 History (Lexapro) ropinirole 0.5 mg tablet 0.5 mg PO HS 03/18/21 06/16/22 History divalproex 500 mg tablet,extended 1,500 mg PO HS 06/03/21 06/16/22 History release 24 hr (Depakote ER) ferrous sulfate 325 mg (65 mg 325 mg PO Q OTHER DAY 06/03/21 06/16/22 History iron) tablet (Iron (ferrous sulfate)) quetiapine 400 mg tablet (Seroquel) 400 mg PO HS 06/03/21 06/16/22 History cyanocobalamin (vitamin B-12) 1,000 mcg PO BID 08/05/21 06/16/22 History 1,000 mcg tablet (Vitamin B-12) loratadine 10 mg tablet (Allergy 10 mg PO QAM 08/05/21 06/16/22 History Relief (loratadine)) thiamine HCl (vitamin B1) 100 mg 100 mg PO BID 10/11/21 06/16/22 History tablet (Vitamin B-1) levothyroxine 50 mcg tablet 50 mcg PO QAM 01/21/22 06/16/22 History ergocalciferol (vitamin D2) 1,250 1,250 mcg PO WK 02/02/22 04/08/22 History mcg (50,000 unit) capsule ondansetron HCl 4 mg tablet 4 mg PO Q8 PRN Nausea And Vomiting 02/02/22 04/08/22 History famotidine 20 mg tablet 20 mg PO DAILY 02/25/22 06/16/22 History metformin 500 mg tablet 500 mg PO DAILY 04/05/22 06/16/22 History magnesium oxide 400 mg (241.3 mg 400 mg PO BID #60 tabs 04/07/22 06/16/22 Rx magnesium) tablet gabapentin 100 mg capsule 100 mg PO .per instructions #90 04/11/22 06/16/22 Rx caps nicotine 21 mg/24 hr daily 21 mg transdermal QAM #14 ea 04/11/22 Rx transdermal patch (Nicoderm CQ) cholestyramine (with sugar) 4 gram 2 ea PO DAILY #0 ea 04/14/22 06/16/22 Rx powder for susp in a packet (Questran) folic acid 1 mg tablet 1 mg PO QAM #30 tabs 04/14/22 06/16/22 Rx clonazepam 1 mg tablet 1 mg PO TID PRN Anxiety 06/16/22 06/16/22 History glipizide 5 mg tablet 5 mg PO DAILY 06/16/22 06/16/22 History Past Med/Surg History Medical History Acute hyponatremia Anemia Anxiety and depression Arthritis Aspiration pneumonia Diabetes GERD (gastroesophageal reflux disease) History of pulmonary embolism Hyperparathyroidism Hypomagnesemia Hypoxia Iron deficiency anemia Irritable bowel syndrome Schizoaffective disorder Smoking Vomiting and diarrhea Weakness Surgical History History of section x2 Family History (Updated 06/16/22 @ 12:33 by Elmo Gonzalez) Denies family history of Inflammatory bowel disease Social History (Updated 06/16/22 @ 12:33 by Elmo Gonzalez) Smoking Status: Current every day smoker Tobacco Type: Cigarettes Cigarettes Per Day: 2-3 packs; Second Hand Exposure: No; Hx Alcohol Use: No Hx Substance Use: No Preferred Language: Nepali Communication Ability: Effective School Health Aide Required: No Beliefs That Will Affect Care: None marital status: Current Living Situation: Family Current Living Situation Comment: Lives with Daughter How many Children do You have: 2 Feels Safe at Home: Yes Assistive Devices: Bedside Commode and Walker Review of Systems Review of Systems: Constitutional: no fever but has chills in the ED, with weakness and fatigue; no myalgias, anorexia, night sweats Eyes: No diplopia, no worsening or blurred vision ENT: normal hearing, no trouble swallowing Respiratory: No cough, sputum, dyspnea at rest or on exertion Cardiovascular: No chest pain, tightness or palpitations Abdomen: n/v, diarrhea, without abdominal pain or constipation : Denies dysuria, hematuria, increased urgency/frequency, urinary retention Musculoskeletal: No joint pain, calf pain, swelling Neurologic: No weakness, numbness/tingling, or balance problems Psychiatric: No anxiety or depression Skin: No rash or itch Physical Exam Physical Exam: General: awake, alert, no apparent distress Head: Normocephalic, atraumatic ENT: PERRL, EOMI, no pharyngeal exudate, mucous membranes moist Chest: Clear to auscultation, on room air, no adventitious breath sounds Cardiac: Regular rate and rhythm, no murmur, no JVD, normal peripheral pulses, good capillary refill Abdominal: NABS x 4 quadrants, soft, nontender to palpation, no rebound, guarding or tenderness Extremities: Normal inspection, no peripheral edema or erythema, calfs nontender to palpation Psych: Normal mood and affect Neuro: AAO x 3, strength intact bilaterally and rated 5/5, no motor deficits, speech is clear, no peripheral sensory deficits Skin: no rash or erythema Results & Data Results & Data ([facility]) Vital Signs (Past 12 Hours) Vital Signs Temp Pulse Resp BP Pulse Ox O2 Del Method O2 Flow Rate 06/16/22 10:00 103 H 19 95 06/16/22 10:00 118/87 06/16/22 09:43 106 H 17 95 06/16/22 09:00 113 H 25 H 93 06/16/22 08:57 94/76 L 06/16/22 08:57 112 H 23 93 06/16/22 08:30 116 H 19 06/16/22 08:09 116 H 25 H 92 06/16/22 08:38 95 Nasal Cannula 2 06/16/22 07:52 37.1 C 115 H 16 147/88 H 88 L Room Air Laboratory Results Abnormal lab results 06/16/22 06/16/22 06/16/22 Range/Units 08:51 08:51 09:44 WBC 4.19 L (4.8-10.8) K/ul RBC 5.30 H (3.93-5.22) M/uL Hgb 16.5 H (12.0-16.0) g/dl Hct 49.4 H (34.1-44.9) % Lymph # (Auto) 1.00 L (1.2-3.4) K/uL Glucose 173 H (70-99(Fasting)) mg/dl Magnesium 1.2 L (1.7-2.4) mg/dl AST 49 H (13-39) U/L Urine Ketones 1+ H (Negative) Diagnostic Findings Chest X-Ray 06/16/22 08:54 XR chest 1V portable HISTORY: hypoxia COMPARISON: Chest 04/08/2022. FINDINGS: There are low lung volumes. Cardiac silhouette is mildly enlarged. There is progressive perihilar interstitial/vascular thickening likely representing mild pulmonary edema. No pleural effusions. No pneumothorax. IMPRESSION: Cardiomegaly with progressive perihilar interstitial/vascular thickening. This likely represents developing pulmonary edema. ACT 112: Negative or not required by law. Electronically signed by: Wilfredo Byers M.D. 06/16/2022 9:47 AM Code Status & VTE Plan Code Status Full Code. Supervising Physician Co-Signing Physician Notes Attending Attestation and Admission Note: Pt seen/examined, chart reviewed, care plan d/w PA Gem Perdomo. I agree w/ the lopez components of her admission documentation except - on physical exam mucous membranes are dry. 66yo female with history of schizoaffective disorder, hypothyroidism, ongoing tobacco dependence, h/o chronic diarrhea on creon and questran supplementation - presents with 24 hours of severe diarrhea (pure watery stool), nausea, emesis and abdominal bloating. No fevers. Current GI symptoms are similar to past episodes of severe diarrhea. Denies any sick contacts, recent abx usage or travel. Denies any dyspnea or cough. PMH/PSH/allergies/meds/sochx/famhx - reviewed vitals - tachy, o2 sats moderately low to the upper 80s, BP wnl, afebrile gen - obese, looks dehydrated, tired-appearing, but no distress mouth - MM dry; no lesions or thrush neck - no JVD heart - RR, s1 s2, tachy, no murmur lungs - CTA b/l, no course rales or wheeze abd - distended, BS+, NT, no HSM ext - no edema, pulses 1+ b/l, cool feet labs reviewed CXR reviewed EKG - sinus tach, RBBB, inferior and lateral T wave inversions A/P: 1. nausea/vomiting/diarrhea/abd distension 2. dehydration 3. mild hypoxia - does not examine volume overloaded despite official cxr report. Suspect hypoxia is more so from underlying chronic lung disease from tobacco ? (although does not carry formal dx of COPD or take inhalers) 4. severe hypomagnesemia - 2nd to #1 5. schizoaffective d/o 6. morbid obesity BMI 46.5 7. chronic pancreatic insufficiency? takes chronic creon, and previous fecal fat was + await stool BioFire for infectious w/u of #1 supportive care, IV fluids, etc consider CT a/p if bioFire is negative hypoxia - ideally needs PFTs, dedicated CT chest, etc check depakote level while here check folate level (recent deficiency noted on labs) Elmo Gonzalez MD PG Care Time/CCT Total # of Minutes Spent Total Time Spent with Patient: Total time spent is greater than 50% in coordination of care (as documented) at patient's floor/unit and/or counseling patient: Coding Level of Care Code 15089 Initial Inpt Care Lvl 3 Diagnoses Vomiting and diarrhea R11.10; R19.7 Hypomagnesemia E83.42 Diabetes E11.9; Z79.4 Diabetes mellitus complication status: without complication Diabetes mellitus jail insulin use: with emotional disabilities teacher use Diabetes mellitus type: type 2 GERD (gastroesophageal reflux disease) K21.9 Esophagitis presence: without esophagitis Schizoaffective disorder F25.1 Schizoaffective disorder type: depressive Anxiety and depression F41.9; F32.9 History of pulmonary embolism Z86.711 Iron deficiency anemia D50.9 Restless leg G25.81 Tobacco abuse Z72.0 Hypothyroid E03.9 Folate deficiency E53.8 (1) Diabetes Diabetes mellitus complication status: without complication Diabetes mellitus jail insulin use: with emotional disabilities teacher use Diabetes mellitus type: type 2 Qualified Code(s): E11.9 - Type 2 diabetes mellitus without complications; Z79.4 - USP (current) use of insulin (2) Schizoaffective disorder Schizoaffective disorder type: depressive Qualified Code(s): F25.1 - Schizoaffective disorder, depressive type (3) GERD (gastroesophageal reflux disease) Esophagitis presence: without esophagitis Qualified Code(s): K21.9 - Gastro- esophageal reflux disease without esophagitis
[2022-06-16 10:27] LABS: Appearance Urine Clear (Clear); Bilirubin Urine Negative (Negative); Blood Urine Negative (Negative); Color Urine Yellow; Glucose Urine UA Negative (Negative); Ketones Urine 1+ (Negative); Leukocyte Esterase Urine Negative (Negative); Nitrite Urine Negative (Negative); Protein Urine Negative (Negative); Specific Gravity Urine 1.012 (1.000-1.030); Urobilinogen Urine Negative (Negative); pH Urine 5.5 (4.5-7.5)
[2022-06-16] MEDS ORDERED: MAGNESIUM SULFATE / D5W 1 GM/100 ML BAG IV ONE (11:15)
--- NOTE | 2022-06-16 11:56 | Electrocardiogram Report ---
Test Reason : Blood Pressure : / mmHG Vent. Rate : 100 BPM Atrial Rate : 100 BPM P-R Int : 158 ms QRS Dur : 132 ms QT Int : 378 ms P-R-T Axes : 049 131 -12 degrees QTc Int : 487 ms Normal sinus rhythm Right bundle branch block T wave abnormality, consider inferolateral ischemia Abnormal ECG When compared with ECG of 13-APR-2022 05:44, Vent. rate has increased BY 33 BPM Inverted T waves have replaced nonspecific T wave abnormality in Inferior leads T wave inversion now evident in Lateral leads Confirmed by David Rodriguez ([id number]) on 06/16/2022 11:55:54 AM Referred By: REFERRED SELF Confirmed By:Alex Rodriguez
[2022-06-16] MEDS ORDERED: RIVAROXABAN 20 MG TAB PO ONE (12:15)
[2022-06-16 12:29] LABS: Adenovirus F 40/41 PCR Not Detected (NotDetected); Astrovirus PCR Not Detected (NotDetected); Campylobacter PCR Not Detected (NotDetected); Clostridium diff Toxin A/B PCR Not Detected (NotDetected); Cryptosporidium PCR Not Detected (NotDetected); Cyclospora cayetanensis PCR Not Detected (NotDetected); Entamoeba histolytica PCR Not Detected (NotDetected); Enteroaggregative E.coli(EAEC) Not Detected (NotDetected); Enteropathogenic E.coli (EPEC) Not Detected (NotDetected); Enterotoxigenic E.coli (ETEC) Not Detected (NotDetected); Giardia lamblia PCR Not Detected (NotDetected); Norovirus GI/GII PCR Not Detected (NotDetected); Plesiomonas shigelloides PCR Not Detected (NotDetected); Rotavirus A PCR Not Detected (NotDetected); Salmonella PCR Not Detected (NotDetected); Sapovirus PCR Not Detected (NotDetected); Shiga-like Toxin E.coli (STEC) Not Detected (NotDetected); Shigella/Enteroinvasive E.coli Not Detected (NotDetected); Vibrio cholerae PCR Not Detected (NotDetected); Vibrio species PCR Not Detected (NotDetected); Yersinia enterocolitica PCR Not Detected (NotDetected)
[2022-06-16] MEDS: LACTATED RINGER'S 1,000 ML IV SCH ×2 (13:12→19:36)
[2022-06-16] MEDS ORDERED: DEXTROSE 50% 50 ML SYRINGE IV PRN (14:07)
[2022-06-16] MEDS ORDERED: GLUCOSE 40% GEL 15 GM TUBE PO PRN (14:07)
[2022-06-16] MEDS ORDERED: POLYETHYLENE (MIRALAX) 17 GM PACK PO PRN (14:07)
[2022-06-16] MEDS ORDERED: CARBOHYDRATES FOR HYPOGLYCEMIA PO PRN (14:07)
[2022-06-16] MEDS ORDERED: GLUCOSE 10 TAB/TUBE PO PRN (14:07)
[2022-06-16] MEDS ORDERED: GLUCAGON FOR INJ 1 MG VIAL SQ PRN (14:07)
[2022-06-16] MEDS: MAGNESIUM SULFATE / D5W 1 GM/100 ML BAG IV SCH ×3 (16:10→19:35)
[2022-06-16] MEDS: FERROUS SULFATE 325 MG TAB PO SCH (16:11)
[2022-06-16] MEDS: busPIRone 15 MG TAB PO SCH ×2 (16:11→19:38)
[2022-06-16] MEDS: GABAPENTIN 100 MG CAP PO SCH ×2 (16:15→19:39)
[2022-06-16] MEDS: PANCREAZE (LIPASE 10,500U) CAP PO SCH ×2 (16:29→19:37)
[2022-06-16] MEDS: INSULIN ASPART PER UNIT SC SCH ×3 (16:43→20:20)
[2022-06-16] MEDS: ONDANSETRON INJ 2 MG/ML 2 ML VIAL IV PRN ×2 (17:18→22:57)
[2022-06-16] MEDS ORDERED: OPTIRAY 320 100ml IV ONE (17:52)
[2022-06-16] MEDS: NYSTATIN POWDER 15GM BTL EXT SCH ×2 (18:18→19:40)
--- NOTE | 2022-06-16 18:23 | CT Scan Report ---
CT SCAN OF THE ABDOMEN AND PELVIS WITH IV CONTRAST CLINICAL HISTORY: Nausea and vomiting. Diarrhea. COMPARISON STUDY: Abdominal CT dated 03/20/2022. TECHNIQUE: Following the IV administration of 95 cc of Optiray 320, CT scan of the abdomen and pelvi s is performed from the lung bases to the proximal femora. Images are reviewed in the axial, sagittal , and coronal planes. IV contrast was administered without complication. Oral contrast was utilized. A dose lowering technique was utilized adhering to the principles of ALARA. CT DOSE: 1682.29 mGy.cm FINDINGS: Lung bases: The heart is normal in size and without pericardial effusion. The lung bases are clear no ting dependent atelectasis. There is a tiny hiatal hernia. Liver: The contrast-enhanced liver is enlarged, measuring 19.8 cm in length. The liver demonstrates d iffusely diminished attenuation indicating hepatic steatosis. There is minimal central intrahepatic b iliary ductal dilatation. The hepatic veins and portal veins are patent. Gallbladder: Surgically absent noting clips in the gallbladder fossa. Spleen: Normal in size and attenuation. Pancreas: Moderately atrophic and grossly unremarkable. Adrenal glands: Unremarkable. Kidneys: The contrast enhanced kidneys demonstrate mild cortical atrophy and are without hydronephros is. The kidneys enhance symmetrically. Abdominal vasculature: The abdominal aorta is normal in course and caliber noting mild atheroscleroti c calcification. Bowel: There is no evidence of high-grade bowel obstruction. There are mildly distended and fluid-osmin led loops of small bowel with air-fluid levels. No transition point is identified and there is liquid stool seen throughout the colon with associated mucosal hyperemia. The appendix is normal as visual ized and contains residual enteric contrast. Peritoneum: There is no intraperitoneal free air or abdominal ascites. Lymphadenopathy: None. Pelvic viscera: The bladder is normal as visualized. The uterus is surgically absent. No adnexal lesi on is seen. Skeletal structures: The skeletal structures are osteopenic. There is mild lumbosacral spondylosis. N o lytic or blastic lesions are seen. IMPRESSION: 1. Findings suggest a nonspecific enterocolitis. Clinical correlation will be required. 2. There is no evidence of high-grade bowel obstruction. 3. Hepatomegaly and hepatic steatosis. 4. Additional findings as above. ACT 112: Negative or not required by law. Electronically signed by: Amaury Meier M.D. 06/16/2022 6:20 PM
[2022-06-16] MEDS: CHOLESTYRAMINE LIGHT 4 GM PKT PO SCH (19:37)
[2022-06-16] MEDS: CYANOCOBALAMIN (B-12) 500 MCG TABLET PO SCH (19:37)
[2022-06-16] MEDS: QUEtiapine FUMARATE 200 MG TAB PO SCH (19:38)
[2022-06-16] MEDS: THIAMINE HCL 100 MG TAB PO SCH (19:38)
[2022-06-16] MEDS: rOPINIRole HCL 0.25 MG TABLET PO SCH (19:38)
[2022-06-16] MEDS: DIVALPROEX EXTENDED RELEASE 500 MG TAB PO SCH (19:40)
[2022-06-16] MEDS: clonazePAM 1 MG TAB PO PRN (22:57)
[2022-06-16] MEDS: LOPERAMIDE HCL 2 MG CAP PO PRN (22:57)
[2022-06-17] MEDS: DICLOFENAC SOD 1% GEL 100 GM TUBE EXT SCH ×5 (02:36→21:51)
[2022-06-17] MEDS: ONDANSETRON INJ 2 MG/ML 2 ML VIAL IV PRN ×2 (06:41→16:51)
[2022-06-17 07:08] LABS: Basophils # (auto) 0.03 K/uL (0-0.2); Basophils % (auto) 0.5 %; Eosinophils # (auto) 0.19 K/uL (0-0.50); Eosinophils % (auto) 3.5 %; Hematocrit (blood only) 40.8 % (34.1-44.9); Hemoglobin 13.8 g/dl (12.0-16.0); Immature Granulocytes # (auto) 0.04 K/uL (0.00-0.02); Immature Granulocytes % (auto) 0.7 %; Lymphocytes # (auto) 1.69 K/uL (1.2-3.4); Lymphocytes % (auto) 30.8 %; Mean Corpuscular Hemoglobin 30.9 pg (25.0-34.0); Mean Corpuscular Hgb Conc 33.8 g/dL (32.0-36.0); Mean Corpuscular Volume 91.3 fL (80.0-100.0); Mean Platelet Volume 10.1 fL (9.4-12.3); Monocytes # (auto) 0.67 K/uL (0.24-0.82); Monocytes % (auto) 12.2 %; Neutrophils # (auto) 2.86 K/uL (1.4-6.5); Neutrophils % (auto) 52.3 %; Platelet Count 154 K/uL (130-400); RDW Coefficient of Variation 12.8 % (11.5-14.5); RDW Standard Deviation 42.6 fL (36.4-46.3); Red Blood Count 4.47 M/uL (3.93-5.22); White Blood Count 5.48 K/ul (4.8-10.8)
[2022-06-17 07:49] LABS: Albumin Globulin Ratio 1.1 (0.9-2); Albumin Level 3.1 gm/dl (3.4-5.0); BUN Creatinine Ratio 6.5 (10-20); Bilirubin,Total 1.1 mg/dl (0.2-1.0); Calcium 8.4 mg/dl (8.5-10.1); Creatinine Clr Calc Pharmacy 82.1 ml/min; Est GFR (African American) 94.6 ml/min; Est GFR (Non-African American) 81.6 ml/min; Globulin 2.7 gm/dl (2.5-4.0); Magnesium 1.8 mg/dl (1.7-2.4); Potassium 4.1 mmol/L (3.5-5.1); Total Protein 5.8 gm/dl (6.0-8.3)
[2022-06-17 07:59] LABS: Folate (Folic Acid) 10.32 ng/ml (>5.38)
[2022-06-17 08:00] LABS: Vitamin B12 > 1500 pg/ml (180-914)
[2022-06-17] MEDS ORDERED: METOCLOPRAMIDE HCL INJ 5 MG/ML 2 ML VIAL IV ONE (08:02)
[2022-06-17] MEDS: PANTOprazole 40 MG TAB PO SCH (08:48)
[2022-06-17] MEDS: LORATADINE 10 MG TAB PO SCH (08:48)
[2022-06-17] MEDS: CYANOCOBALAMIN (B-12) 500 MCG TABLET PO SCH ×2 (08:48→21:50)
[2022-06-17] MEDS: NICOTINE 21 MG/24 HR TDSY TD SCH (08:48)
[2022-06-17] MEDS: GABAPENTIN 100 MG CAP PO SCH ×3 (08:48→21:48)
[2022-06-17] MEDS: busPIRone 15 MG TAB PO SCH ×3 (08:48→21:52)
[2022-06-17] MEDS: THIAMINE HCL 100 MG TAB PO SCH ×2 (08:48→21:48)
[2022-06-17] MEDS: CHOLESTYRAMINE LIGHT 4 GM PKT PO SCH ×2 (08:49→21:48)
[2022-06-17] MEDS: NYSTATIN POWDER 15GM BTL EXT SCH ×3 (08:49→21:51)
[2022-06-17] MEDS: PANCREAZE (LIPASE 10,500U) CAP PO SCH ×3 (08:49→21:48)
[2022-06-17] MEDS: FOLIC ACID 1 MG TAB PO SCH (08:50)
[2022-06-17] MEDS: LEVOTHYROXINE SODIUM 50 MCG TABLET PO SCH (08:50)
[2022-06-17] MEDS: ESCITALOPRAM OXALATE 20 MG TAB PO SCH (08:50)
[2022-06-17] MEDS: FAMOTIDINE 20 MG TAB PO SCH (08:50)
[2022-06-17] MEDS: RIVAROXABAN 20 MG TAB PO SCH (08:51)
[2022-06-17] MEDS: LOPERAMIDE HCL 2 MG CAP PO PRN (08:53)
[2022-06-17] MEDS: INSULIN ASPART PER UNIT SC SCH ×4 (09:06→21:50)
[2022-06-17] MEDS: LANTUS PER UNIT CHARGE SQ SCH (09:07)
--- NOTE | 2022-06-17 11:19 | Gastrointestinal Consultation ---
Date of Consultation June 17, 2022 Assessment & Plan (1) Nausea, vomiting, and diarrhea: -prn antiemetics -Stop Imodium and try Lomotil -UGI with SBFT -Hold Metformin on discharge -Obtain stool calprotectin Supervising Physician Co-Signing Physician Notes Agree with IVAN Perez as above Gen: Chronic ill-appearing, disheveled, NAD Chest: Decreased breath sounds at b/l bases CVS: RRR Abd: Soft, NT, ND, +BS Small Bowel series pending CT showed non-specific enterocolitis No other abnormalities on GI workup at this time Continue current therapy and supportive care History of Present Illness Reason for Consultation: nausea, vomiting, diarrhea Attending Physician: Elom Gonzalez History of Present Illness Patient is a 66 yo female with PMH of neuropathy, hypothyroidism, tobacco abuse, chronic diarrhea, GERD, RLS, iron deficiency anemia, hyperparathyroidism, fatigue, pulmonary embolism, IBS, anxiety, schizoaffective disorder, GERD, arthritis DM2, and FTT. She is admitted to the hospital with nausea, vomiting, and diarrhea. Patient has underwent extensive evaluation for this issue in the past without findings. She had a colonoscopy & EGD in April 2021 that did not reveal any abnormalities to explain her symptoms. She has had a negative stool biofire while hospitalized here this admission including C diff testing. A CT scan shows a non-specific enterocolitis. Patient is reportedly not having frequent vomiting, but is nauseated continuously. Per nursing, she has a rectal tube and continues to have diarrhea throughout the day. She is not having a response to Imodium. She denies pertinent family history. She is a very poor historian and most of her answers are "I don't know." She has been treated with Imodium, Cholestyramine, & fiber in the past without relief. Diarrhea is episodic. Allergies Allergy/AdvReac Type Severity Reaction Status Date / Time egg AdvReac Severe Vomiting Verified 04/08/22 01:44 Penicillins AdvReac Severe Vomiting Verified 04/08/22 01:44 Home Medications Medication Instructions Recorded Confirmed Type buspirone 15 mg tablet 15 mg PO TID 10/25/20 06/16/22 History prxlwk-xplldxsh-alefocm 1 cap PO TID 10/25/20 06/16/22 History 12,000-38,000-60,000 unit capsule,delayed rel (Creon) pantoprazole 40 mg tablet,delayed 40 mg PO QAM 10/25/20 06/16/22 History release (Protonix) rivaroxaban 20 mg tablet (Xarelto) 20 mg PO QAM 10/25/20 06/16/22 History escitalopram oxalate 20 mg tablet 20 mg PO QAM 03/18/21 04/08/22 History (Lexapro) ropinirole 0.5 mg tablet 0.5 mg PO HS 03/18/21 06/16/22 History divalproex 500 mg tablet,extended 1,500 mg PO HS 06/03/21 06/16/22 History release 24 hr (Depakote ER) ferrous sulfate 325 mg (65 mg 325 mg PO Q OTHER DAY 06/03/21 06/16/22 History iron) tablet (Iron (ferrous sulfate)) quetiapine 400 mg tablet (Seroquel) 400 mg PO HS 06/03/21 06/16/22 History cyanocobalamin (vitamin B-12) 1,000 mcg PO BID 08/05/21 06/16/22 History 1,000 mcg tablet (Vitamin B-12) loratadine 10 mg tablet (Allergy 10 mg PO QAM 08/05/21 06/16/22 History Relief (loratadine)) thiamine HCl (vitamin B1) 100 mg 100 mg PO BID 10/11/21 06/16/22 History tablet (Vitamin B-1) levothyroxine 50 mcg tablet 50 mcg PO QAM 01/21/22 06/16/22 History ergocalciferol (vitamin D2) 1,250 1,250 mcg PO WK 02/02/22 04/08/22 History mcg (50,000 unit) capsule ondansetron HCl 4 mg tablet 4 mg PO Q8 PRN Nausea And Vomiting 02/02/22 04/08/22 History famotidine 20 mg tablet 20 mg PO DAILY 02/25/22 06/16/22 History metformin 500 mg tablet 500 mg PO DAILY 04/05/22 06/16/22 History magnesium oxide 400 mg (241.3 mg 400 mg PO BID #60 tabs 04/07/22 06/16/22 Rx magnesium) tablet gabapentin 100 mg capsule 100 mg PO .per instructions #90 04/11/22 06/16/22 Rx caps nicotine 21 mg/24 hr daily 21 mg transdermal QAM #14 ea 04/11/22 Rx transdermal patch (Nicoderm CQ) cholestyramine (with sugar) 4 gram 2 ea PO DAILY #0 ea 04/14/22 06/16/22 Rx powder for susp in a packet (Questran) folic acid 1 mg tablet 1 mg PO QAM #30 tabs 04/14/22 06/16/22 Rx clonazepam 1 mg tablet 1 mg PO TID PRN Anxiety 06/16/22 06/16/22 History glipizide 5 mg tablet 5 mg PO DAILY 06/16/22 06/16/22 History Patient History Medical History Acute hyponatremia Anemia Anxiety and depression Arthritis Aspiration pneumonia Diabetes GERD (gastroesophageal reflux disease) History of pulmonary embolism Hyperparathyroidism Hypomagnesemia Hypoxia Iron deficiency anemia Irritable bowel syndrome Schizoaffective disorder Smoking Vomiting and diarrhea Weakness Surgical History History of section x2 Family History Denies family history of Inflammatory bowel disease Social History Smoking Status: Current every day smoker Tobacco Type: Cigarettes Cigarettes Per Day: 2-3 packs; Second Hand Exposure: No; Hx Alcohol Use: No Hx Substance Use: No Preferred Language: Vincentian Communication Ability: Effective Information Assurance Specialist Required: No Beliefs That Will Affect Care: None marital status: Current Living Situation: Alone Current Living Situation Comment: Lives with Daughter How many Children do You have: 2 Feels Safe at Home: Yes Assistive Devices: Bedside Commode and Walker Review of Systems Constitutional: no fever and no chills Respiratory: no cough and no dyspnea Cardiovascular: no chest pain Gastrointestinal: + nausea, + vomiting and + diarrhea/loose stools; no abdominal pain and no blood in stools Physical Exam Constitutional: WD/WN, vitals as above Respiratory: normal respiratory effort Cardiovascular: Rate/Rhythm: regular rate Gastrointestinal (Abdomen): normal bowel sounds, soft, nontender, no hepatosplenomegaly Musculoskeletal: no cyanosis or clubbing, extremities motor strength 5/5 Psychiatric: Orientation: alert and oriented x 3 Results & Data ([facility]) Vital Signs (Past 12 Hours) Vital Signs Temp Pulse Pulse Resp BP BP Pulse Ox 06/17/22 07:55 37.4 C 104 H 18 114/67 93 06/17/22 07:14 112 H 06/17/22 03:43 37.1 C 116 H 18 126/74 96 06/17/22 01:26 95 H 06/16/22 23:34 O2 Del Method O2 Flow Rate 06/17/22 07:55 Room Air 06/17/22 07:14 06/17/22 03:43 Nasal Cannula 2 06/17/22 01:26 06/16/22 23:34 Nasal Cannula 2 PG Care Time/CCT Total # of Minutes Spent Total Time Spent with Patient: Total time spent is greater than 50% in coordination of care (as documented) at patient's floor/unit and/or counseling patient: Coding Level of Care Code 53113 Office/OBS Consult Lvl 4 Diagnoses Nausea, vomiting, and diarrhea R11.2; R19.7
[2022-06-17] MEDS: ACETAMINOPHEN 500 MG TAB PO PRN (15:50)
[2022-06-17] MEDS: DIPHENOXYLATE/ATROPINE 2.5/0.025MG TAB PO PRN (15:50)
[2022-06-17] MEDS ORDERED: IBUPROFEN 800 MG TAB PO STA (17:12)
[2022-06-17] MEDS: SODIUM CHLORIDE 0.9% 1000ML 1,000 ML IV SCH (17:30)
--- NOTE | 2022-06-17 19:51 | Hospitalist Progress Note ---
Date of Service June 17, 2022 Assessment & Plan (1) Vomiting and diarrhea: Plan: Enterocolitis as seen on CT a/p. Etiology uncertain. Stool BioFire completely negative. Rechecked a COVID PCR test - also negative. Stool calprotectin in the past was elevated; repeat pending (sent by GI). Check sed rate, crp in am. UGI series pending. Appreciate GI consultation & recs. Etiology? Inflammatory bowel? other? Resume IV fluids. Clear liquids as tolerated. Repeat labs am. (2) Hypomagnesemia: Plan: Repleted Resolved 2nd diarrhea (3) Diabetes: Plan: PO meds on hold. Novolog SSI. Lantus. (4) GERD (gastroesophageal reflux disease): Plan: Continue Protonix and Pepcid. (5) Schizoaffective disorder: Plan: Continue home meds: Depakote 1,500 mg HS + seroquel HS. Lexapro. Valproic acid level wnl. (6) Anxiety and depression: Plan: Continue Lexapro 20 mg, BuSpar 15 mg TID, Klonopin 1 mg TID, Seroquel 400 mg HS. (7) History of pulmonary embolism: Plan: Continue Xarelto 20 mg daily. (8) Iron deficiency anemia: Plan: Hemoglobin robust. Ferritin in March was about 100. Essentially resolved. (9) Restless leg: Plan: Continue ropinirole 0.5 mg HS. (10) Tobacco abuse: Plan: Nicoderm patch (11) Hypothyroid: Plan: Continue levothyroxine 50 mcg daily. TSH in March 2022 wnl (12) Folate deficiency: Plan: Deficiency found in March 2022 Replaced Level today wnl B12 also wnl (13) Chronic diarrhea: Plan: Remains on creon, questran. Trial of lomotil per GI. Acute component still being investigated as in #1 above. Last colonoscopy 04/2021 - 5 polyps removed; random biopsies neg for microscopic colitis, UC, etc. Plan spoke with daughter by phone - update given Admission and Anticipated Discharge Date Admission Date: June 16, 2022 Subjective patient states she simply feels poorly tired, fatigued, no appetite, myalgias, and generalized stomach upset denies pain rectal tube in place draining copious brown liquid stool some occasional nausea but no emesis today mild headache ran fever much of the afternoon tele overnight stable Review of Systems Review of Systems: gen - fever, fatigue cv - no cp, no orthopnea pulm - chronic cough - at baseline; no dyspnea at rest GI - no abd pain Physical Exam Physical Exam: gen - looks unwell, sickly mouth - MM dry neck - no JVD heart - RRR, s1 s2 lungs - CTA b/l, decreased BS bases abd - softly distended, BS+, NT, no HSM ext - no edema, pulses 2+ b/l Results & Data Results & Data ([facility]) Vital Signs (Past 12 Hours) Vital Signs Temp Pulse Resp BP Pulse Ox O2 Del Method O2 Flow Rate 06/17/22 08:00 Nasal Cannula 2 06/17/22 16:58 38.4 C H 06/17/22 15:09 37.9 C H 98 H 20 109/72 95 06/17/22 11:27 37.7 C H 89 20 114/76 94 06/17/22 07:55 37.4 C 104 H 18 114/67 93 Room Air Laboratory Results Laboratory Results - last 24 hr 06/16/22 06/17/22 06/17/22 20:16 06:44 06:44 WBC 5.48 RBC 4.47 Hgb 13.8 Hct 40.8 MCV 91.3 MCH 30.9 MCHC 33.8 RDW Std Deviation 42.6 RDW Coeff of [place] 12.8 Plt Count 154 MPV 10.1 Immature Gran % (Auto) 0.7 Neut % (Auto) 52.3 Lymph % (Auto) 30.8 [place] % (Auto) 12.2 Eos % (Auto) 3.5 Baso % (Auto) 0.5 Neut # (Auto) 2.86 Lymph # (Auto) 1.69 [place] # (Auto) 0.67 Eos # (Auto) 0.19 Baso # (Auto) 0.03 Immature Gran # (Auto) 0.04 H Sodium 132 L Potassium 4.1 Chloride 100 Carbon Dioxide 23 Anion Gap 9 BUN 5 L Creatinine 0.77 Est Cr Clr Drug Dosing 82.1 Est GFR ( Amer) 94.6 Est GFR (Non-Af Amer) 81.6 BUN/Creatinine Ratio 6.5 L Glucose 169 H POC Glucose 121 H Calcium 8.4 L Magnesium 1.8 Total Bilirubin 1.1 H D AST 98 H ALT 42 Alkaline Phosphatase 90 Total Protein 5.8 L Albumin 3.1 L Globulin 2.7 Albumin/Globulin Ratio 1.1 Vitamin B12 Folate Stool Calprotectin 06/17/22 06/17/22 06/17/22 06:44 07:33 11:41 WBC RBC Hgb Hct MCV MCH MCHC RDW Std Deviation RDW Coeff of [place] Plt Count MPV Immature Gran % (Auto) Neut % (Auto) Lymph % (Auto) [place] % (Auto) Eos % (Auto) Baso % (Auto) Neut # (Auto) Lymph # (Auto) [place] # (Auto) Eos # (Auto) Baso # (Auto) Immature Gran # (Auto) Sodium Potassium Chloride Carbon Dioxide Anion Gap BUN Creatinine Est Cr Clr Drug Dosing Est GFR ( Amer) Est GFR (Non-Af Amer) BUN/Creatinine Ratio Glucose POC Glucose 161 H 123 H Calcium Magnesium Total Bilirubin AST ALT Alkaline Phosphatase Total Protein Albumin Globulin Albumin/Globulin Ratio Vitamin B12 > 1500 H Folate 10.32 Stool Calprotectin 06/17/22 06/17/22 16:39 Unknown WBC RBC Hgb Hct MCV MCH MCHC RDW Std Deviation RDW Coeff of [place] Plt Count MPV Immature Gran % (Auto) Neut % (Auto) Lymph % (Auto) [place] % (Auto) Eos % (Auto) Baso % (Auto) Neut # (Auto) Lymph # (Auto) [place] # (Auto) Eos # (Auto) Baso # (Auto) Immature Gran # (Auto) Sodium Potassium Chloride Carbon Dioxide Anion Gap BUN Creatinine Est Cr Clr Drug Dosing Est GFR ( Amer) Est GFR (Non-Af Amer) BUN/Creatinine Ratio Glucose POC Glucose 147 H Calcium Magnesium Total Bilirubin AST ALT Alkaline Phosphatase Total Protein Albumin Globulin Albumin/Globulin Ratio Vitamin B12 Folate Stool Calprotectin Pending PG Care Time/CCT Total # of Minutes Spent Total Time Spent with Patient: Total time spent is greater than 50% in coordination of care (as documented) at patient's floor/unit and/or counseling patient: Coding Level of Care Code 01697 Subseq Hosp Care Lvl 3 Diagnoses Vomiting and diarrhea R11.10; R19.7 Hypomagnesemia E83.42 Diabetes E11.9; Z79.4 Diabetes mellitus complication status: without complication Diabetes mellitus bed bug exterminator insulin use: with bed bug exterminator use Diabetes mellitus type: type 2 GERD (gastroesophageal reflux disease) K21.9 Esophagitis presence: without esophagitis Schizoaffective disorder F25.1 Schizoaffective disorder type: depressive Anxiety and depression F41.9; F32.9 History of pulmonary embolism Z86.711 Iron deficiency anemia D50.9 Restless leg G25.81 Tobacco abuse Z72.0 Hypothyroid E03.9 Folate deficiency E53.8 Chronic diarrhea K52.9 (1) Diabetes Diabetes mellitus complication status: without complication Diabetes mellitus mcc insulin use: with mcc use Diabetes mellitus type: type 2 Qualified Code(s): E11.9 - Type 2 diabetes mellitus without complications; Z79.4 - half-way (current) use of insulin (2) Schizoaffective disorder Schizoaffective disorder type: depressive Qualified Code(s): F25.1 - Schizoaffective disorder, depressive type (3) GERD (gastroesophageal reflux disease) Esophagitis presence: without esophagitis Qualified Code(s): K21.9 - Gastro-esophageal reflux disease without esophagitis
[2022-06-17] MEDS: DIVALPROEX EXTENDED RELEASE 500 MG TAB PO SCH (21:49)
[2022-06-17] MEDS: rOPINIRole HCL 0.25 MG TABLET PO SCH (21:49)
[2022-06-17] MEDS: QUEtiapine FUMARATE 200 MG TAB PO SCH (21:51)
[2022-06-18] MEDS: SODIUM CHLORIDE 0.9% 1000ML 1,000 ML IV SCH ×3 (01:11→16:40)
[2022-06-18] MEDS: FAMOTIDINE 20 MG in SYRINGE 3 ML IV SCH ×2 (05:46→22:12)
[2022-06-18] MEDS: PANTOprazole 40 MG in SYRINGE 0 ML IV SCH ×2 (05:46→21:46)
--- NOTE | 2022-06-18 07:30 | Fluoroscopy Report ---
[place] small bowel follow through CLINICAL HISTORY: 66 years-old Female with Diarrhea, nausea/vomiting. Acute nausea with vomiting TECHNIQUE: Digital Solutions Architect KUB. COMPARISON STUDY: CTA chest 2 2021 FLUOROSCOPY TIME: 0 minutes. 11/25/2007. FINDINGS: Digital Solutions Architect radiograph of the abdomen demonstrates surgical clips of the abdominal right upper qu adrant. Mild gaseous distention of the large and small bowel. Enteric contrast administered on yester day's CT study has progressed and is now present within the large bowel extending into the sigmoid. N o pneumatosis or pneumoperitoneum. Unremarkable soft tissues. No acute fracture. The patient was nauseous and was unable to ingest the oral contrast. Small bowel follow-through was n ot conducted. IMPRESSION: Mild gaseous distention of the large and small bowel with nonobstructive bowel gas patte rn. Enteric contrast has now progressed into the sigmoid colon. ACT 112: Negative or not required by law. The above report was generated using voice recognition software. It may contain grammatical, syntax o r spelling errors. Electronically signed by: Altaf Lofton M.D. 06/17/2022 4:00 PM
[2022-06-18 07:51] LABS: BUN Creatinine Ratio 8.3 (10-20); C Reactive Protein 13.03 mg/dl (0-0.5); Calcium 8.1 mg/dl (8.5-10.1); Creatinine Clr Calc Pharmacy 88.5 ml/min; Est GFR (African American) 102.6 ml/min; Est GFR (Non-African American) 88.5 ml/min; Potassium 3.8 mmol/L (3.5-5.1)
[2022-06-18] MEDS: INSULIN ASPART PER UNIT SC SCH ×4 (08:07→21:45)
--- NOTE | 2022-06-18 08:49 | Communication Note ---
Date of Service: June 18, 2022 Patient is a 66 yo female with diarrhea, nausea, & vomiting which has been ongoing intermittently for >1 year. Imaging shows an enterocolitis, however stoo l studies are unremarkable. At the present time, I would continue supportive care with Lomotil. If needed, this can be increased to allow for up to 8 tablets daily. I would not resume Metformin on discharge as it seems as though this exacerbates her symptoms. I would advise awaiting stool calprotectin which will not return during this admission. If abnormal, can consider repeating her colonoscopy at that time as an outpatient.
[2022-06-18] MEDS: LANTUS PER UNIT CHARGE SQ SCH (09:27)
[2022-06-18] MEDS: NICOTINE 21 MG/24 HR TDSY TD SCH (09:30)
[2022-06-18] MEDS: DICLOFENAC SOD 1% GEL 100 GM TUBE EXT SCH ×4 (09:32→21:46)
[2022-06-18] MEDS: NYSTATIN POWDER 15GM BTL EXT SCH ×3 (09:32→21:46)
[2022-06-18] MEDS: CYANOCOBALAMIN (B-12) 500 MCG TABLET PO SCH ×2 (09:52→21:45)
[2022-06-18] MEDS: ESCITALOPRAM OXALATE 20 MG TAB PO SCH (09:52)
[2022-06-18] MEDS: LEVOTHYROXINE SODIUM 50 MCG TABLET PO SCH (09:52)
[2022-06-18] MEDS: THIAMINE HCL 100 MG TAB PO SCH ×2 (09:53→21:44)
[2022-06-18] MEDS: PANCREAZE (LIPASE 10,500U) CAP PO SCH ×3 (09:53→21:45)
[2022-06-18] MEDS: RIVAROXABAN 20 MG TAB PO SCH (09:53)
[2022-06-18] MEDS: FOLIC ACID 1 MG TAB PO SCH (09:53)
[2022-06-18] MEDS: GABAPENTIN 100 MG CAP PO SCH ×3 (09:54→21:44)
[2022-06-18] MEDS: LORATADINE 10 MG TAB PO SCH (09:54)
[2022-06-18] MEDS: CHOLESTYRAMINE LIGHT 4 GM PKT PO SCH ×2 (09:55→21:44)
[2022-06-18] MEDS: busPIRone 15 MG TAB PO SCH ×3 (09:55→21:43)
[2022-06-18] MEDS: DIPHENOXYLATE/ATROPINE 2.5/0.025MG TAB PO PRN (09:55)
[2022-06-18] MEDS: FERROUS SULFATE 325 MG TAB PO SCH (15:38)
[2022-06-18] MEDS: ACETAMINOPHEN 500 MG TAB PO PRN (18:29)
--- NOTE | 2022-06-18 20:03 | Hospitalist Progress Note ---
Date of Service June 18, 2022 Assessment & Plan (1) Vomiting and diarrhea: Plan: Enterocolitis as seen on CT a/p. Etiology still uncertain. Stool BioFire completely negative. Rechecked a COVID PCR test - also negative. Stool calprotectin in the past was elevated; repeat pending (sent by GI). CRP elevated. UGI series without specific pathology (just bowel distension). Appreciate GI consultation & recs. Etiology? Inflammatory bowel? other? Will repeat a cdiff. If negative consider an actual stool culture. Consider stool O/P. Cont IV fluids. Clear liquids as tolerated. She did not tolerate full liquids. Repeat labs am. Of note - patient had a cat scratch to RLE but toxoplasmosis and pasteurella don't cause enterocolitis. (2) Hypomagnesemia: Plan: Repleted Resolved 2nd diarrhea repeat mag level am (3) Diabetes: Plan: PO meds on hold. Novolog SSI. Lantus. Controlled. (4) GERD (gastroesophageal reflux disease): Plan: Continue Protonix and Pepcid. (5) Schizoaffective disorder: Plan: Continue home meds: Depakote 1,500 mg HS + seroquel HS. Lexapro. Valproic acid level wnl. (6) Anxiety and depression: Plan: Continue Lexapro 20 mg, BuSpar 15 mg TID, Klonopin 1 mg TID, Seroquel 400 mg HS. (7) History of pulmonary embolism: Plan: Continue Xarelto 20 mg daily. (8) Iron deficiency anemia: Plan: Hemoglobin robust. Ferritin in March was about 100. Resolved. (9) Restless leg: Plan: Continue ropinirole 0.5 mg HS. (10) Tobacco abuse: Plan: Nicoderm patch (11) Hypothyroid: Plan: Continue levothyroxine 50 mcg daily. TSH in March 2022 wnl (12) Folate deficiency: Plan: Deficiency found in March 2022 Replaced Level this admission wnl B12 also wnl (13) Chronic diarrhea: Plan: Remains on creon, questran. Trial of lomotil per GI for acute diarrhea. Acute component still being investigated as in #1 above. Last colonoscopy 04/2021 - 5 polyps removed; random biopsies neg for microscopic colitis, UC, etc. Plan spoke with daughter by phone yesterday - update given cont PT/OT as tolerated Admission and Anticipated Discharge Date Admission Date: June 16, 2022 Subjective patient still "feels so bad" tried full liquids - immediately after had nausea but did not vomit feels bloated continues with copious stool via her rectal tube continues with headache, fatigue, myalgias no abd pain despite the above Review of Systems Review of Systems: gen - no further fevers/chills cv - no chest pain or orthopnea pulm - no dyspnea or cough GI - no vomiting; no blood per rectum Physical Exam Physical Exam: gen - looks unwell, sickly - but no worse than yesterday mouth - MM more moist today neck - no JVD heart - RRR, s1 s2 lungs - CTA b/l, decreased BS bases abd - a bit more distended today; BS+, NT, no HSM ext - no edema, pulses 2+ b/l skin - right distal diez slight erythema but no abscess or cellulitis (patient reports a cat scratch there) Results & Data Results & Data ([facility]) Vital Signs (Past 12 Hours) Vital Signs Temp Pulse Resp BP BP Pulse Ox O2 Del Method 06/18/22 19:26 37.3 C 93 H 20 135/82 95 Nasal Cannula 06/18/22 14:49 36.9 C 93 H 20 112/72 96 Nasal Cannula 06/18/22 11:40 37.0 C 90 20 93/63 L 95 Nasal Cannula 06/18/22 08:55 Nasal Cannula 06/18/22 08:06 36.4 C L 76 20 94/65 L 95 Nasal Cannula O2 Flow Rate 06/18/22 19:26 2 06/18/22 14:49 2 06/18/22 11:40 2 06/18/22 08:55 2 06/18/22 08:06 2 Laboratory Results Laboratory Results - last 24 hr 06/17/22 06/17/22 06/18/22 20:55 Unknown 06:47 ESR Sodium 139 Potassium 3.8 Chloride 108 H Carbon Dioxide 27 Anion Gap 4 BUN 6 Creatinine 0.72 Est Cr Clr Drug Dosing 88.5 Est GFR ( Amer) 102.6 Est GFR (Non-Af Amer) 88.5 BUN/Creatinine Ratio 8.3 L Glucose 118 H POC Glucose 123 H Calcium 8.1 L C-Reactive Protein 13.03 H SARS-CoV-2 (PCR) NEGATIVE 06/18/22 06/18/22 06/18/22 06:47 07:51 11:48 ESR 13 Sodium Potassium Chloride Carbon Dioxide Anion Gap BUN Creatinine Est Cr Clr Drug Dosing Est GFR ( Amer) Est GFR (Non-Af Amer) BUN/Creatinine Ratio Glucose POC Glucose 111 H 133 H Calcium C-Reactive Protein SARS-CoV-2 (PCR) 06/18/22 16:51 ESR Sodium Potassium Chloride Carbon Dioxide Anion Gap BUN Creatinine Est Cr Clr Drug Dosing Est GFR ( Amer) Est GFR (Non-Af Amer) BUN/Creatinine Ratio Glucose POC Glucose 106 H Calcium C-Reactive Protein SARS-CoV-2 (PCR) PG Care Time/CCT Total # of Minutes Spent Total Time Spent with Patient: Total time spent is greater than 50% in coordination of care (as documented) at patient's floor/unit and/or counseling patient: Coding Level of Care Code 90762 Subseq Hosp Care Lvl 2 Diagnoses Vomiting and diarrhea R11.10; R19.7 Hypomagnesemia E83.42 Diabetes E11.9; Z79.4 Diabetes mellitus complication status: without complication Diabetes mellitus terminal gauger insulin use: with terminal gauger use Diabetes mellitus type: type 2 GERD (gastroesophageal reflux disease) K21.9 Esophagitis presence: without esophagitis Schizoaffective disorder F25.1 Schizoaffective disorder type: depressive Anxiety and depression F41.9; F32.9 History of pulmonary embolism Z86.711 Iron deficiency anemia D50.9 Restless leg G25.81 Tobacco abuse Z72.0 Hypothyroid E03.9 Folate deficiency E53.8 Chronic diarrhea K52.9 (1) Diabetes Diabetes mellitus complication status: without complication Diabetes mellitus mcc insulin use: with terminal gauger use Diabetes mellitus type: type 2 Qualified Code(s): E11.9 - Type 2 diabetes mellitus without complications; Z79.4 - senior living (current) use of insulin (2) Schizoaffective disorder Schizoaffective disorder type: depressive Qualified Code(s): F25.1 - Schizoa ffective disorder, depressive type (3) GERD (gastroesophageal reflux disease) Esophagitis presence: without esophagitis Qualified Code(s): K21.9 - Gastro- esophageal reflux disease without esophagitis
[2022-06-18] MEDS: QUEtiapine FUMARATE 200 MG TAB PO SCH (21:42)
[2022-06-18] MEDS: DIVALPROEX EXTENDED RELEASE 500 MG TAB PO SCH (21:43)
[2022-06-18] MEDS: rOPINIRole HCL 0.25 MG TABLET PO SCH (21:45)
[2022-06-19] MEDS: SODIUM CHLORIDE 0.9% 1000ML 1,000 ML IV SCH ×3 (00:40→15:50)
[2022-06-19 07:46] LABS: Basophils # (auto) 0.03 K/uL (0-0.2); Basophils % (auto) 0.4 %; Eosinophils # (auto) 0.34 K/uL (0-0.50); Eosinophils % (auto) 4.5 %; Hematocrit (blood only) 35.9 % (34.1-44.9); Hemoglobin 11.9 g/dl (12.0-16.0); Immature Granulocytes # (auto) 0.05 K/uL (0.00-0.02); Immature Granulocytes % (auto) 0.7 %; Lymphocytes # (auto) 2.93 K/uL (1.2-3.4); Lymphocytes % (auto) 39.2 %; Mean Corpuscular Hgb Conc 33.1 g/dL (32.0-36.0); Mean Corpuscular Volume 93.5 fL (80.0-100.0); Mean Platelet Volume 9.6 fL (9.4-12.3); Monocytes # (auto) 0.66 K/uL (0.24-0.82); Monocytes % (auto) 8.8 %; Neutrophils # (auto) 3.47 K/uL (1.4-6.5); Neutrophils % (auto) 46.4 %; Platelet Count 135 K/uL (130-400); RDW Coefficient of Variation 13.2 % (11.5-14.5); RDW Standard Deviation 44.9 fL (36.4-46.3); Red Blood Count 3.84 M/uL (3.93-5.22); White Blood Count 7.48 K/ul (4.8-10.8)
[2022-06-19 08:21] LABS: BUN Creatinine Ratio 4.7 (10-20); Calcium 7.8 mg/dl (8.5-10.1); Est GFR (African American) 109.3 ml/min; Est GFR (Non-African American) 94.3 ml/min; Magnesium 1.6 mg/dl (1.7-2.4); Potassium 3.7 mmol/L (3.5-5.1)
[2022-06-19] MEDS: LANTUS PER UNIT CHARGE SQ SCH (08:21)
[2022-06-19] MEDS: INSULIN ASPART PER UNIT SC SCH ×4 (08:21→20:28)
[2022-06-19] MEDS: FAMOTIDINE 20 MG in SYRINGE 3 ML IV SCH (08:21)
[2022-06-19] MEDS: DICLOFENAC SOD 1% GEL 100 GM TUBE EXT SCH ×4 (08:22→20:23)
[2022-06-19] MEDS: NYSTATIN POWDER 15GM BTL EXT SCH ×3 (08:22→20:16)
[2022-06-19] MEDS: PANTOprazole 40 MG in SYRINGE 0 ML IV SCH (08:22)
[2022-06-19] MEDS: PANCREAZE (LIPASE 10,500U) CAP PO SCH ×3 (08:23→20:17)
[2022-06-19] MEDS: CYANOCOBALAMIN (B-12) 500 MCG TABLET PO SCH ×2 (08:23→20:20)
[2022-06-19] MEDS: NICOTINE 21 MG/24 HR TDSY TD SCH (08:23)
[2022-06-19] MEDS: FOLIC ACID 1 MG TAB PO SCH (08:23)
[2022-06-19] MEDS: LORATADINE 10 MG TAB PO SCH (08:23)
[2022-06-19] MEDS: RIVAROXABAN 20 MG TAB PO SCH (08:24)
[2022-06-19] MEDS: ESCITALOPRAM OXALATE 20 MG TAB PO SCH (08:24)
[2022-06-19] MEDS: CHOLESTYRAMINE LIGHT 4 GM PKT PO SCH ×2 (08:24→20:18)
[2022-06-19] MEDS: GABAPENTIN 100 MG CAP PO SCH ×3 (08:24→20:17)
[2022-06-19] MEDS: LEVOTHYROXINE SODIUM 50 MCG TABLET PO SCH (08:24)
[2022-06-19] MEDS: THIAMINE HCL 100 MG TAB PO SCH ×2 (08:24→20:25)
[2022-06-19] MEDS: busPIRone 15 MG TAB PO SCH ×3 (08:24→20:18)
[2022-06-19] MEDS: MAGNESIUM SULFATE / D5W 1 GM/100 ML BAG IV SCH ×2 (09:40→11:21)
--- NOTE | 2022-06-19 20:08 | Hospitalist Progress Note ---
Date of Service June 19, 2022 Assessment & Plan (1) Vomiting and diarrhea: Plan: RESOLVED. 2nd Enterocolitis as seen on CT a/p. Etiology uncertain but infectious etiology suspected as she had fevers, myalgias, etc. Stool BioFire completely negative, however. Rechecked a COVID PCR test - also negative. Stool calprotectin in the past was elevated; repeat pending (sent by GI). CRP elevated. UGI series without specific pathology (just bowel distension). Appreciate GI consultation & recs. Repeat c diff test negative. Etiology? Inflammatory bowel? Infectious? other? Repeat an actual stool culture. stool O/ dispatched & pending. Advance to low fiber diet. Stop IVF. Of note - patient had a cat scratch to RLE but toxoplasmosis and pasteurella don't cause enterocolitis. (2) Hypomagnesemia: Plan: Repleted Resolved now low again - replete, repeat level am (3) Diabetes: Plan: PO meds on hold. Novolog SSI. Lantus. Controlled. (4) GERD (gastroesophageal reflux disease): Plan: Continue Protonix and Pepcid. Change both from IV to PO. (5) Schizoaffective disorder: Plan: Continue home meds: Depakote 1,500 mg HS + seroquel HS. Lexapro. Valproic acid level wnl. (6) Anxiety and depression: Plan: Continue Lexapro 20 mg, BuSpar 15 mg TID, Klonopin 1 mg TID, Seroquel 400 mg HS. (7) History of pulmonary embolism: Plan: Continue Xarelto 20 mg daily. (8) Iron deficiency anemia: Plan: Hemoglobin robust. Ferritin in March was about 100. Resolved. (9) Restless leg: Plan: Continue ropinirole 0.5 mg HS. (10) Tobacco abuse: Plan: Nicoderm patch (11) Hypothyroid: Plan: Continue levothyroxine 50 mcg daily. TSH in March 2022 wnl (12) Folate deficiency: Plan: Deficiency found in March 2022 Replaced Level this admission wnl B12 also wnl (13) Chronic diarrhea: Plan: Remains on creon, questran. Trial of lomotil per GI for acute diarrhea. Acute component still being investigated as in #1 above. Last colonoscopy 04/2021 - 5 polyps removed; random biopsies neg for microscopic colitis, UC, etc. Plan left message for daughter on voicemail this evening cont PT/OT as tolerated plan to take out rectal tube tomorrow if stool output remains low Admission and Anticipated Discharge Date Admission Date: June 16, 2022 Subjective patient feeling better today appetite improved; requests regular diet headache and myalgias improved no abd pain no nausea no vomiting rectal tube still in place -- output has dropped considerably in the last 24 hours tele wnl overnight Review of Systems Review of Systems: gen - no fevers, no chills cv - no cp, no orthopnea pulm - no dyspnea GI - no pain; a little bloated but not severe Physical Exam Physical Exam: gen - looks better today mouth - MMM neck - no JVD heart - RRR, s1 s2, no murmur lungs - CTA b/l abd - soft, ND, BS+, NT, no HSM ext - no edema, pulses 2+ b/l rectal tube in place Results & Data Results & Data ([facility]) Vital Signs (Past 12 Hours) Vital Signs Temp Pulse Pulse Resp BP BP Pulse Ox 06/19/22 16:50 78 06/19/22 14:00 06/19/22 15:32 36.6 C 74 18 138/104 H 96 06/19/22 12:30 36.5 C 76 20 112/71 94 06/19/22 11:02 06/19/22 08:25 36.4 C L 74 18 107/70 97 Pulse Ox O2 Del Method O2 Del Method O2 Flow Rate O2 Flow Rate 06/19/22 16:50 06/19/22 14:00 94 Nasal Cannula 2 06/19/22 15:32 Nasal Cannula 2 06/19/22 12:30 Nasal Cannula 2 06/19/22 11:02 Nasal Cannula 2 06/19/22 08:25 Nasal Cannula 2 Laboratory Results Laboratory Results - last 24 hr 06/18/22 06/19/22 06/19/22 20:19 07:30 07:30 WBC 7.48 RBC 3.84 L Hgb 11.9 L Hct 35.9 MCV 93.5 MCH 31.0 MCHC 33.1 RDW Std Deviation 44.9 RDW Coeff of [place] 13.2 Plt Count 135 MPV 9.6 Immature Gran % (Auto) 0.7 Neut % (Auto) 46.4 Lymph % (Auto) 39.2 [place] % (Auto) 8.8 Eos % (Auto) 4.5 Baso % (Auto) 0.4 Neut # (Auto) 3.47 Lymph # (Auto) 2.93 [place] # (Auto) 0.66 Eos # (Auto) 0.34 Baso # (Auto) 0.03 Immature Gran # (Auto) 0.05 H Sodium 141 Potassium 3.7 Chloride 112 H Carbon Dioxide 25 Anion Gap 4 BUN 3 L Creatinine 0.64 Est Cr Clr Drug Dosing 100.0 Est GFR ( Amer) 109.3 Est GFR (Non-Af Amer) 94.3 BUN/Creatinine Ratio 4.7 L Glucose 114 H POC Glucose 112 H Calcium 7.8 L Magnesium 1.6 L Stl C. diff Tox B Gene Stool Comments 06/19/22 06/19/22 06/19/22 07:53 10:20 10:20 WBC RBC Hgb Hct MCV MCH MCHC RDW Std Deviation RDW Coeff of [place] Plt Count MPV Immature Gran % (Auto) Neut % (Auto) Lymph % (Auto) [place] % (Auto) Eos % (Auto) Baso % (Auto) Neut # (Auto) Lymph # (Auto) [place] # (Auto) Eos # (Auto) Baso # (Auto) Immature Gran # (Auto) Sodium Potassium Chloride Carbon Dioxide Anion Gap BUN Creatinine Est Cr Clr Drug Dosing Est GFR ( Amer) Est GFR (Non-Af Amer) BUN/Creatinine Ratio Glucose POC Glucose 108 H Calcium Magnesium Stl C. diff Tox B Gene Negative Cdiff Gene Stool Comments Pending 06/19/22 06/19/22 06/19/22 11:50 16:27 20:04 WBC RBC Hgb Hct MCV MCH MCHC RDW Std Deviation RDW Coeff of [place] Plt Count MPV Immature Gran % (Auto) Neut % (Auto) Lymph % (Auto) [place] % (Auto) Eos % (Auto) Baso % (Auto) Neut # (Auto) Lymph # (Auto) [place] # (Auto) Eos # (Auto) Baso # (Auto) Immature Gran # (Auto) Sodium Potassium Chloride Carbon Dioxide Anion Gap BUN Creatinine Est Cr Clr Drug Dosing Est GFR ( Amer) Est GFR (Non-Af Amer) BUN/Creatinine Ratio Glucose POC Glucose 121 H 103 H 126 H Calcium Magnesium Stl C. diff Tox B Gene Stool Comments PG Care Time/CCT Total # of Minutes Spent Total Time Spent with Patient: Total time spent is greater than 50% in coordination of care (as documented) at patient's floor/unit and/or counseling patient: Coding Level of Care Code 64993 Subseq Hosp Care Lvl 2 Diagnoses Vomiting and diarrhea R11.10; R19.7 Hypomagnesemia E83.42 Diabetes E11.9; Z79.4 Diabetes mellitus complication status: without complication Diabetes mellitus skilled nursing insulin use: with disintegrator use Diabetes mellitus type: type 2 GERD (gastroesophageal reflux disease) K21.9 Esophagitis presence: without esophagitis Schizoaffective disorder F25.1 Schizoaffective disorder type: depressive Anxiety and depression F41.9; F32.9 History of pulmonary embolism Z86.711 Iron deficiency anemia D50.9 Restless leg G25.81 Tobacco abuse Z72.0 Hypothyroid E03.9 Folate deficiency E53.8 Chronic diarrhea K52.9 (1) Diabetes Diabetes mellitus complication status: without complication Diabetes mellitus disintegrator insulin use: with skilled nursing use Diabetes mellitus type: type 2 Qualified Code(s): E11.9 - Type 2 diabetes mellitus without complications; 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
[2022-06-19] MEDS: DIVALPROEX EXTENDED RELEASE 500 MG TAB PO SCH (20:18)
[2022-06-19] MEDS: rOPINIRole HCL 0.25 MG TABLET PO SCH (20:18)
[2022-06-19] MEDS: QUEtiapine FUMARATE 200 MG TAB PO SCH (20:24)
[2022-06-20] MEDS: clonazePAM 1 MG TAB PO PRN ×2 (00:04→20:51)
[2022-06-20] MEDS: MELATONIN 3 MG TAB PO PRN ×2 (00:04→20:51)
[2022-06-20] MEDS: FAMOTIDINE 20 MG in SYRINGE 3 ML IV SCH ×3 (00:05→20:51)
[2022-06-20] MEDS: busPIRone 15 MG TAB PO SCH ×3 (07:19→20:29)
[2022-06-20] MEDS: CYANOCOBALAMIN (B-12) 500 MCG TABLET PO SCH ×2 (07:19→20:29)
[2022-06-20] MEDS: LEVOTHYROXINE SODIUM 50 MCG TABLET PO SCH (07:20)
[2022-06-20] MEDS: ESCITALOPRAM OXALATE 20 MG TAB PO SCH (07:20)
[2022-06-20] MEDS: THIAMINE HCL 100 MG TAB PO SCH ×2 (07:20→20:26)
[2022-06-20] MEDS: RIVAROXABAN 20 MG TAB PO SCH (07:20)
[2022-06-20] MEDS: LORATADINE 10 MG TAB PO SCH (07:20)
[2022-06-20] MEDS: PANCREAZE (LIPASE 10,500U) CAP PO SCH ×3 (07:20→20:29)
[2022-06-20] MEDS: NICOTINE 21 MG/24 HR TDSY TD SCH (07:20)
[2022-06-20] MEDS: FAMOTIDINE 20 MG TAB PO SCH (07:21)
[2022-06-20] MEDS: FOLIC ACID 1 MG TAB PO SCH (07:21)
[2022-06-20] MEDS: GABAPENTIN 100 MG CAP PO SCH ×3 (07:21→20:26)
[2022-06-20] MEDS: CHOLESTYRAMINE LIGHT 4 GM PKT PO SCH ×2 (07:21→20:26)
[2022-06-20] MEDS: NYSTATIN POWDER 15GM BTL EXT SCH ×3 (07:22→20:28)
[2022-06-20] MEDS: DICLOFENAC SOD 1% GEL 100 GM TUBE EXT SCH ×4 (07:22→20:25)
[2022-06-20 08:19] LABS: Potassium 4.1 mmol/L (3.5-5.1)
[2022-06-20 08:20] LABS: BUN Creatinine Ratio 4.6 (10-20); Calcium 8.3 mg/dl (8.5-10.1); Creatinine Clr Calc Pharmacy 99.9 ml/min; Est GFR (African American) 108.7 ml/min; Est GFR (Non-African American) 93.8 ml/min; Magnesium 1.7 mg/dl (1.7-2.4)
[2022-06-20] MEDS: LANTUS PER UNIT CHARGE SQ SCH (08:32)
[2022-06-20] MEDS: INSULIN ASPART PER UNIT SC SCH ×4 (08:32→20:53)
[2022-06-20] MEDS: PANTOprazole 40 MG TAB PO SCH (09:45)
[2022-06-20] MEDS: FERROUS SULFATE 325 MG TAB PO SCH (11:15)
[2022-06-20] MEDS: ONDANSETRON INJ 2 MG/ML 2 ML VIAL IV PRN (18:04)
--- NOTE | 2022-06-20 19:46 | Hospitalist Progress Note ---
Date of Service June 20, 2022 Assessment & Plan (1) Vomiting and diarrhea: Plan: RESOLVED. 2nd Enterocolitis as seen on CT a/p. Etiology uncertain but infectious etiology suspected as she had fevers, myalgias, etc. Stool BioFire completely negative, however. 2nd COVID PCR test - also negative. Stool calprotectin in the past was elevated; repeat pending (sent by GI). CRP elevated. UGI series without specific pathology (just bowel distension). Appreciate GI consultation & recs. Repeat c diff test negative. Etiology? Inflammatory bowel? Infectious? other? Again favoring latter. Repeat an actual stool culture. stool O/P dispatched & pending. Tolerating low fiber diet. Due to the frequent nature of her vomiting/diarrhea episodes over the last year will ask her to f/u with GI post-discharge. (2) Hypomagnesemia: Plan: Repleted Resolved (3) Diabetes: Plan: PO meds on hold. Novolog SSI. Lantus. Controlled. (4) GERD (gastroesophageal reflux disease): Plan: Continue Protonix and Pepcid. (5) Schizoaffective disorder: Plan: Continue home meds: Depakote 1,500 mg HS + seroquel HS. Lexapro. Valproic acid level wnl. (6) Anxiety and depression: Plan: Continue Lexapro 20 mg, BuSpar 15 mg TID, Klonopin 1 mg TID, Seroquel 400 mg HS. (7) History of pulmonary embolism: Plan: Continue Xarelto 20 mg daily. (8) Iron deficiency anemia: Plan: Hemoglobin robust. Ferritin in March was about 100. (9) Restless leg: Plan: Continue ropinirole 0.5 mg HS. (10) Tobacco abuse: Plan: Nicoderm patch (11) Hypothyroid: Plan: Continue levothyroxine 50 mcg daily. TSH in March 2022 wnl (12) Folate deficiency: Plan: Deficiency found in March 2022 Replaced and level this admission wnl B12 wnl (13) Chronic diarrhea: Plan: Remains on creon, questran. Acute diarrhea - see #1 above. Last colonoscopy 04/2021 - 5 polyps removed; random biopsies neg for microscopic colitis, UC, etc. Plan left message for daughter on [employer] this evening once again cont PT/OT -- told patient that in order for her to d/c home she must work with PT so that we know she can ambulate at home and she is strong enough for d/c Admission and Anticipated Discharge Date Admission Date: June 16, 2022 Subjective patient continues to feel well rectal tube became dislodged last pm no stool since then tolerating regular diet no vomiting scant nausea today no headaches, myalgias or cough "when can I go home?" she declined PT today (did so yesterday as well) tele wnl overnight Review of Systems Review of Systems: gen - no fevers or chills cv - no cp, no orthopnea pulm - no dyspnea GI - no abd pain Physical Exam Physical Exam: gen - looks great today, NAD mouth - MMM neck - no JVD heart - RRR, s1 s2, no murmur lungs - CTA b/l abd - soft, ND, BS+, NT, no HSM ext - no edema, pulses 2+ b/l Results & Data Results & Data ([facility]) Vital Signs (Past 12 Hours) Vital Signs Temp Pulse Pulse Resp BP Pulse Ox O2 Del Method 06/20/22 15:24 36.5 C 67 20 108/74 94 06/20/22 15:06 65 06/20/22 11:03 36.6 C 72 20 113/67 91 06/20/22 08:49 Nasal Cannula 06/20/22 07:57 36.4 C L 66 20 127/84 95 O2 Flow Rate 06/20/22 15:24 06/20/22 15:06 06/20/22 11:03 06/20/22 08:49 2 06/20/22 07:57 Laboratory Results Laboratory Results - last 24 hr 06/19/22 06/20/22 06/20/22 20:04 07:10 07:33 Sodium 141 Potassium 4.1 Chloride 111 H Carbon Dioxide 24 Anion Gap 6 BUN 3 L Creatinine 0.65 Est Cr Clr Drug Dosing 99.9 Est GFR ( Amer) 108.7 Est GFR (Non-Af Amer) 93.8 BUN/Creatinine Ratio 4.6 L Glucose 119 H POC Glucose 126 H 134 H Calcium 8.3 L Magnesium 1.7 06/20/22 06/20/22 11:29 16:21 Sodium Potassium Chloride Carbon Dioxide Anion Gap BUN Creatinine Est Cr Clr Drug Dosing Est GFR ( Amer) Est GFR (Non-Af Amer) BUN/Creatinine Ratio Glucose POC Glucose 90 135 H Calcium Magnesium PG Care Time/CCT Total # of Minutes Spent Total Time Spent with Patient: Total time spent is greater than 50% in coordination of care (as documented) at patient's floor/unit and/or counseling patient: Coding Level of Care Code 25838 Subseq Hosp Care Lvl 2 Diagnoses Vomiting and diarrhea R11.10; R19.7 Hypomagnesemia E83.42 Diabetes E11.9; Z79.4 Diabetes mellitus complication status: without complication Diabetes mellitus skilled nursing insulin use: with skilled nursing use Diabetes mellitus type: type 2 GERD (gastroesophageal reflux disease) K21.9 Esophagitis presence: without esophagitis Schizoaffective disorder F25.1 Schizoaffective disorder type: depressive Anxiety and depression F41.9; F32.9 History of pulmonary embolism Z86.711 Iron deficiency anemia D50.9 Restless leg G25.81 Tobacco abuse Z72.0 Hypothyroid E03.9 Folate deficiency E53.8 Chronic diarrhea K52.9 (1) Diabetes Diabetes mellitus complication status: without complication Diabetes mellitus skilled nursing insulin use: with terminal block assembler use Diabetes mellitus type: type 2 Qualified Code(s): E11.9 - Type 2 diabetes mellitus without complications; Z79.4 - oysterman (current) use of insulin (2) Schizoaffective disorder Schizoaffective disorder type: depressive Qualified Code(s): F25.1 - Schi zoaffective disorder, depressive type (3) GERD (gastroesophageal reflux disease) Esophagitis presence: without esophagitis Qualified Code(s): K21.9 - Gastro- esophageal reflux disease without esophagitis
[2022-06-20] MEDS: rOPINIRole HCL 0.25 MG TABLET PO SCH (20:27)
[2022-06-20] MEDS: DIVALPROEX EXTENDED RELEASE 500 MG TAB PO SCH (20:28)
[2022-06-20] MEDS: QUEtiapine FUMARATE 200 MG TAB PO SCH (20:30)
[2022-06-21 06:14] LABS: BUN Creatinine Ratio 8.4 (10-20); Calcium 8.5 mg/dl (8.5-10.1); Creatinine Clr Calc Pharmacy 78.2 ml/min; Est GFR (African American) 86.4 ml/min; Est GFR (Non-African American) 74.5 ml/min; Potassium 4.1 mmol/L (3.5-5.1)
[2022-06-21] MEDS: RIVAROXABAN 20 MG TAB PO SCH (07:11)
[2022-06-21] MEDS: CYANOCOBALAMIN (B-12) 500 MCG TABLET PO SCH (07:11)
[2022-06-21] MEDS: busPIRone 15 MG TAB PO SCH ×2 (07:11→11:14)
[2022-06-21] MEDS: ESCITALOPRAM OXALATE 20 MG TAB PO SCH (07:12)
[2022-06-21] MEDS: PANTOprazole 40 MG TAB PO SCH (07:12)
[2022-06-21] MEDS: GABAPENTIN 100 MG CAP PO SCH ×2 (07:12→11:15)
[2022-06-21] MEDS: FERROUS SULFATE 325 MG TAB PO SCH (07:12)
[2022-06-21] MEDS: FOLIC ACID 1 MG TAB PO SCH (07:12)
[2022-06-21] MEDS: LORATADINE 10 MG TAB PO SCH (07:12)
[2022-06-21] MEDS: FAMOTIDINE 20 MG TAB PO SCH (07:12)
[2022-06-21] MEDS: DICLOFENAC SOD 1% GEL 100 GM TUBE EXT SCH ×2 (07:13→11:15)
[2022-06-21] MEDS: CHOLESTYRAMINE LIGHT 4 GM PKT PO SCH (07:13)
[2022-06-21] MEDS: PANCREAZE (LIPASE 10,500U) CAP PO SCH ×2 (07:13→11:44)
[2022-06-21] MEDS: THIAMINE HCL 100 MG TAB PO SCH (07:13)
[2022-06-21] MEDS: NICOTINE 21 MG/24 HR TDSY TD SCH (07:13)
[2022-06-21] MEDS: NYSTATIN POWDER 15GM BTL EXT SCH ×2 (07:14→11:44)
[2022-06-21] MEDS: FAMOTIDINE 20 MG in SYRINGE 3 ML IV SCH (07:28)
[2022-06-21] MEDS: INSULIN ASPART PER UNIT SC SCH ×2 (08:49→12:07)
[2022-06-21] MEDS: LANTUS PER UNIT CHARGE SQ SCH (08:51)
[2022-06-21] MEDS: LEVOTHYROXINE SODIUM 50 MCG TABLET PO SCH (08:58)
--- NOTE | 2022-06-21 12:18 | Discharge Summary ---
Date of Service date of admission - June 16, 2022 date of discharge - June 21, 2022 Admission HPI Per Admitting Provider Tierra Gil is a 66-year-old female with a past medical history significant for diabetes, GERD, PE currently on Xarelto, anxiety and depression, schizoaffective disorder, RLS, hypothyroidism, and GERD who presents today with vomiting and diarrhea that started last evening. Last evening, she felt she had to move her bowels, initially felt constipated and like she would not be able to, however had an episode of explosive diarrhea. This continued throughout the night, she states she has had >10 episodes of nonbloody bowel movements or diarrhea. She has also been nauseous since then and has vomited more than 5 times. She denies any fever or chills with this, nor does she have abdominal pain anywhere. This seemingly came out of nowhere. Yesterday, she ate crackers and Manwich out of a can that she thinks could have been , however she is unsure. Previously had been feeling well, she has no sick contacts at home, no one with similar symptoms. No recent antibiotic use or abdominal surgeries. She denies a history of any abdominal procedures. In ED, she is tachycardic with HR in 110s, initially presented 88% on room air, now SPO2 >95% on 2 L NC, otherwise VS WNL. Labs significant for CBC 4.19, glucose 173, magnesium 1.2, AST 49. CXR with cardiomegaly and progressive perihilar interstitial and vascular thickening credit representative of pulmonary edema. Principal Diagnosis Gastroenteritis Discharge Exam gen - NAD, comfortable mouth - MMM neck - no JVD heart - RRR, s1 s2, no murmur lungs - CTA b/l abd - soft, ND, BS+, NT, no HSM ext - no edema, pulses 2+ b/l Discharge Data Allergies Allergy/AdvReac Type Severity Reaction Status Date / Time egg AdvReac Severe Vomiting Verified 06/27/22 17:22 Penicillins AdvReac Severe Vomiting Verified 06/27/22 17:22 Consultations [facility] PT, OT Procedures Performed Rectal tube Ordered Studies Chest X-Ray 06/16/22 08:54 XR chest 1V portable HISTORY: hypoxia COMPARISON: Chest 04/08/2022. FINDINGS: There are low lung volumes. Cardiac silhouette is mildly enlarged. There is progressive perihilar interstitial/vascular thickening likely representing mild pulmonary edema. No pleural effusions. No pneumothorax. IMPRESSION: Cardiomegaly with progressive perihilar interstitial/vascular thickening. This likely represents developing pulmonary edema. ACT 112: Negative or not required by law. Electronically signed by: Wilfredo Byers M.D. 06/16/2022 9:47 AM Abdomen/Pelvis CT 06/16/22 14:58 CT SCAN OF THE ABDOMEN AND PELVIS WITH IV CONTRAST CLINICAL HISTORY: Nausea and vomiting. Diarrhea. COMPARISON STUDY: Abdominal CT dated 03/20/2022. TECHNIQUE: Following the IV administration of 95 cc of Optiray 320, CT scan of the abdomen and pelvis is performed from the lung bases to the proximal femora. Images are reviewed in the axial, sagittal, and coronal planes. IV contrast was administered without complication. Oral contrast was utilized. A dose lowering technique was utilized adhering to the principles of ALARA. CT DOSE: 1682.29 mGy.cm FINDINGS: Lung bases: The heart is normal in size and without pericardial effusion. The lung bases are clear noting dependent atelectasis. There is a tiny hiatal hernia. Liver: The contrast-enhanced liver is enlarged, measuring 19.8 cm in length. The liver demonstrates diffusely diminished attenuation indicating hepatic steatosis. There is minimal central intrahepatic biliary ductal dilatation. The hepatic veins and portal veins are patent. Gallbladder: Surgically absent noting clips in the gallbladder fossa. Spleen: Normal in size and attenuation. Pancreas: Moderately atrophic and grossly unremarkable. Adrenal glands: Unremarkable. Kidneys: The contrast enhanced kidneys demonstrate mild cortical atrophy and are without hydronephrosis. The kidneys enhance symmetrically. Abdominal vasculature: The abdominal aorta is normal in course and caliber noting mild atherosclerotic calcification. Bowel: There is no evidence of high-grade bowel obstruction. There are mildly distended and fluid-filled loops of small bowel with air-fluid levels. No transition point is identified and there is liquid stool seen throughout the colon with associated mucosal hyperemia. The appendix is normal as visualized and contains residual enteric contrast. Peritoneum: There is no intraperitoneal free air or abdominal ascites. Lymphadenopathy: None. Pelvic viscera: The bladder is normal as visualized. The uterus is surgically absent. No adnexal lesion is seen. Skeletal structures: The skeletal structures are osteopenic. There is mild lumbosacral spondylosis. No lytic or blastic lesions are seen. IMPRESSION: 1. Findings suggest a nonspecific enterocolitis. Clinical correlation will be required. 2. There is no evidence of high-grade bowel obstruction. 3. Hepatomegaly and hepatic steatosis. 4. Additional findings as above. ACT 112: Negative or not required by law. Electronically signed by: Amaury Meier M.D. 06/16/2022 6:20 PM Abdomen Fluoroscopy 06/17/22 11:13 FL small bowel follow through CLINICAL HISTORY: 66 years-old Female with Diarrhea, nausea/vomiting. Acute nausea with vomiting TECHNIQUE: Supervisor Final KUB. COMPARISON STUDY: CTA chest 2021 FLUOROSCOPY TIME: 0 minutes. 11/25/2007. FINDINGS: Supervisor Final radiograph of the abdomen demonstrates surgical clips of the abdominal right upper quadrant. Mild gaseous distention of the large and small bowel. Enteric contrast administered on yesterday's CT study has progressed and is now present within the large bowel extending into the sigmoid. No pneumatosis or pneumoperitoneum. Unremarkable soft tissues. No acute fracture. The patient was nauseous and was unable to ingest the oral contrast. Small bowel follow-through was not conducted. IMPRESSION: Mild gaseous distention of the large and small bowel with nonobstructive bowel gas pattern. Enteric contrast has now progressed into the sigmoid colon. ACT 112: Negative or not required by law. The above report was generated using voice recognition software. It may contain grammatical, syntax or spelling errors. Electronically signed by: Altaf Lofton M.D. 06/17/2022 4:00 PM Hospital Course (1) Vomiting and diarrhea: RESOLVED. 2nd Enterocolitis as seen on CT a/p. Etiology uncertain but infectious etiology suspected as she had fevers, myalgias, etc associated with the GI illness. Stool BioFire completely negative, however. 2nd COVID PCR test - also negative. Stool calprotectin in the past was elevated; repeat pending (sent by GI). CRP elevated at 13. Repeat c diff testing was negative. Stool O & P were both pending at discharge but suspicion for such was very low. UGI series without specific pathology (just bowel distension). Seen by [facility] - supportive care advised, and f/u with GI in clinic recommended. Again -- etiology? Inflammatory bowel? Infectious? other? Again favoring latter. Patient ultimately was restarted on a clear liquid diet, and then advanced to low fiber diet. She tolerated this without difficulty. Again, due to the frequent nature of her vomiting/diarrhea episodes over the last year she will need to see [facility] post-discharge. (2) Hypomagnesemia: Repleted Resolved (3) Diabetes: Oral meds were on hold while hospitalized. Diabetes remained controlled. At discharge we advised - * STOP metformin * INCREASE glipizide to 5mg BID (4) GERD (gastroesophageal reflux disease): Continue Protonix and Pepcid. (5) Schizoaffective disorder: Continue home meds: Depakote 1,500 mg HS + seroquel HS. Lexapro. Valproic acid level wnl. (6) Anxiety and depression: Continue Lexapro 20 mg, BuSpar 15 mg TID, Klonopin 1 mg TID, Seroquel 400 mg HS. (7) History of pulmonary embolism: Continue Xarelto 20 mg daily. (8) Iron deficiency anemia: Hemoglobin was robust during this visit. Ferritin in March 2022 was about 100. (9) Restless leg: Continue ropinirole 0.5 mg HS. (10) Tobacco abuse: Nicoderm patch Counseled to quit (11) Hypothyroid: Continue levothyroxine 50 mcg daily. TSH in March 2022 wnl (12) Folate deficiency: Deficiency found in March 2022 Replaced and level this admission was wnl Vitamin B12 level was wnl (13) Chronic diarrhea: Remains on creon, questran. Acute diarrhea - see #1 above. Last colonoscopy 04/2021 - 5 polyps removed; random biopsies NEGATIVE for microscopic colitis, UC, etc. (14) Morbid obesity with BMI of 45.0-49.9, adult: BMI 48.5 Plan seen by PT/OT - cleared to return home with her family (lives with daughter) Home Health Attestation I certify that this patient is under my care and that I, or a physicians field research assistant working with me, had a face to-face encounter that meets the home health [id number] encounter requirements with this patient. The encounter with the patient was in whole, or in part, for the following medical condition, which is the primary reason for home health care (list medical condition): I certify that, based on my findings, the following services are medically necessary home health services: My clinical findings support the need for the above services because: Further, I certify that my clinical findings support that this patient is homebound (i.e. absences from home require considerable and taxing effort and are for medical reasons or pentecostalism services or infrequently or of short dura tion when for other reasons) because: Certification for Home Health Services: Based on the above findings, I certify that this patient is confined to the home and needs intermittent prison care, physical therapy and/or speech therapy or continues to need occupational therapy. The patient is under my care, and I have initiated the establishment of the plan of care. This patient will be followed by a physician who will periodically review the plan of care. Total Time Total Time Spent Total Time Spent (In Minutes): 45 Discharge Plan Discharge Items Patient Disposition: Home - Home Health Services Reason For Visit: vomiting, diarrhea Discharge Diagnosis: Severe vomiting/diarrhea - intestinal illness - resolved. Exact cause uncertain - possibly due to "stomach virus" - but follow-up with gastroenterology needed. Activity: Resume your previous activity Non-emergency contact: Primary Care Provider and Associate Professor Of Psychology Call non-emergency contact if: you have any medication questions, your symptoms worsen and you have a fever Follow-up/Referrals: Des Perez DO [Physician] - (within 2 weeks ) Dylan Fuentes PA-C [Primary Care Provider] - (within 5 days ) Diet: Carb Consistent or DM2 and Low Fiber Addtl Attending Provider Instructions: Mrs Gil, You were hospitalized for severe vomiting with diarrhea. Your CT scan of the abdomen showed intestinal illness. You had fevers during your hospital stay. It was suspected that your illness was due to infection - likely a virus. We did not find any bacterial cause of your illness (no salmonella, no e.coli, etc). COVID testing x 2 were both negative. You improved with IV fluids and time. You are tolerating a normal diet. It will be very important for you to follow-up with [facility] since you have had multiple admissions to the hospital for intestinal illness. Recommendations: 1. STOP your metformin 2. INCREASE your glipizide to 5mg TWICE A DAY with meals 3. For rash in your groin and/or buttocks area -- nystatin powder three times a day for 7 days 4. Follow a LOW FIBER DIET (see handout) Follow-up: see Gastroenterology within 2 weeks; see separate section. See your family doctor within 1 week. Return to [facility] if: * you have fevers over 100 degrees * you have recurrent, severe diarrhea * you are vomiting and can't keep any liquid/food down * you have significant abdominal pain * any other concerns It was our pleasure to care for you at [facility]! Please continue to feel better, Dr Gonzalez Pending Studies at Discharge: Yes Studies:: stool test for parasites stool test to rule out inflammatory bowel disease Stand-Alone Forms: My [facility], Smoking Cessation Medications and DC Order Prescriptions: New nystatin [Nystop] 100,000 unit/gram Powder 1 applic EXT TID 7 Days Qty: 30 0RF Rx Instructions: apply to rash in groin and/or buttocks region - three times daily x 7 days Continued pantoprazole [Protonix] 40 mg tablet,delayed release (DR/EC) 40 mg PO QAM buspirone 15 mg tablet 15 mg PO TID Creon 12,000-38,000 -60,000 unit capsule,delayed release(DR/EC) 1 cap PO TID Xarelto 20 mg tablet 20 mg PO QAM ropinirole 0.5 mg tablet 0.5 mg PO HS escitalopram oxalate [Lexapro] 20 mg tablet 20 mg PO QAM levothyroxine 50 mcg tablet 50 mcg PO QAM famotidine 20 mg tablet 20 mg PO DAILY nicotine [Nicoderm CQ] 21 mg/24 hr Patch 24 Hour 21 mg transdermal QAM Qty: 14 0RF gabapentin 100 mg Capsule 100 mg PO .per instructions Qty: 90 0RF Rx Instructions: 100 mg at 0900 and 1200, 200 mg at bedtime. folic acid 1 mg Tablet 1 mg PO QAM Qty: 30 0RF cholestyramine (with sugar) [Questran] 4 gram powder in packet 2 ea PO DAILY Qty: 0 0RF clonazepam 1 mg tablet 1 mg PO TID PRN (Reason: Anxiety) ferrous sulfate [Iron (ferrous sulfate)] 325 mg (65 mg iron) tablet 325 mg PO Q OTHER DAY divalproex [Depakote ER] 500 mg tablet extended release 24 hr 1,500 mg PO HS quetiapine [Seroquel] 400 mg tablet 400 mg PO HS cyanocobalamin (vitamin B-12) [Vitamin B-12] 1,000 mcg tablet 1,000 mcg PO BID loratadine [Allergy Relief (loratadine)] 10 mg tablet 10 mg PO QAM thiamine HCl (vitamin B1) [Vitamin B-1] 100 mg tablet 100 mg PO BID ondansetron HCl 4 mg tablet 4 mg PO Q8 PRN (Reason: Nausea And Vomiting) magnesium oxide 400 mg (241.3 mg magnesium) Tablet 400 mg PO BID Qty: 60 0RF Changed glipizide 5 mg tablet 5 mg PO BID Qty: 60 1RF Discontinued metformin 500 mg tablet 500 mg PO DAILY Discharge Orders: Discharge Order (Routine); Ordered 06/21/22 Ordered By: Elmo Gonzalez Admission Data Admit Date/Time: 06/16/22 10:47 Attending Provider: Elmo Gonzalez Admit Provider: Elmo Gonzalez Primary Care Provider: Dylan Fuentes Other Providers: Elmo Gonzalez ; Des Perez Other Interventions: Discharge Summary Assessment (RN) Last Done: 06/21/22 12:55 Coding Level of Care Code D/C DAY MANAGEMENT >30 MINS Diagnoses Vomiting and diarrhea R11.10; R19.7 Hypomagnesemia E83.42 Diabetes E11.9; Z79.4 Diabetes mellitus complication status: without complication Diabetes mellitus assistant terminal manager insulin use: with nursing home use Diabetes mellitus type: type 2 GERD (gastroesophageal reflux disease) K21.9 Esophagitis presence: without esophagitis Schizoaffective disorder F25.1 Schizoaffective disorder type: depressive Anxiety and depression F41.9; F32.9 History of pulmonary embolism Z86.711 Iron deficiency anemia D50.9 Restless leg G25.81 Tobacco abuse Z72.0 Hypothyroid E03.9 Folate deficiency E53.8 Chronic diarrhea K52.9 Morbid obesity with BMI of 45.0-49.9, adult E66.01; Z68.42
== END 2022-06-21 14:28 | disposition home health service (06) | DRG 392 ==
LOC: ED 07:59 → EDINP 10:47 → 2N 14:00

== ENCOUNTER 2022-06-27 14:12 | Inpatient (IN) ==
[2022-06-27] MEDS ORDERED: SODIUM CHLORIDE 0.9% 1000ML 1,000 ML IV STA (14:35)
[2022-06-27] MEDS ORDERED: ONDANSETRON INJ 2 MG/ML 2 ML VIAL IV STA (14:35)
[2022-06-27] MEDS ORDERED: SODIUM CHLORIDE 0.9% 500 ML IV STA (14:35)
[2022-06-27 14:57] LABS: Basophils # (auto) 0.11 K/uL (0-0.2); Basophils % (auto) 0.6 %; Eosinophils # (auto) 0.11 K/uL (0-0.50); Eosinophils % (auto) 0.6 %; Hematocrit (blood only) 49.1 % (34.1-44.9); Hemoglobin 16.3 g/dl (12.0-16.0); Immature Granulocytes # (auto) 0.31 K/uL (0.00-0.02); Immature Granulocytes % (auto) 1.6 %; Lymphocytes # (auto) 3.03 K/uL (1.2-3.4); Lymphocytes % (auto) 15.8 %; Mean Corpuscular Hemoglobin 30.6 pg (25.0-34.0); Mean Corpuscular Hgb Conc 33.2 g/dL (32.0-36.0); Mean Corpuscular Volume 92.3 fL (80.0-100.0); Mean Platelet Volume 9.2 fL (9.4-12.3); Monocytes # (auto) 0.44 K/uL (0.24-0.82); Monocytes % (auto) 2.3 %; Neutrophils % (auto) 79.1 %; Platelet Count 243 K/uL (130-400); RDW Coefficient of Variation 13.4 % (11.5-14.5); RDW Standard Deviation 45.5 fL (36.4-46.3); Red Blood Count 5.32 M/uL (3.93-5.22)
[2022-06-27] MEDS ORDERED: METOCLOPRAMIDE HCL INJ 5 MG/ML 2 ML VIAL IV ONE ×2 (15:02→17:57)
[2022-06-27] MEDS ORDERED: diphenhydrAMINE 50 MG/ML VIAL ONE (15:14)
[2022-06-27 15:16] LABS: Albumin Level 3.6 gm/dl (3.4-5.0); BUN Creatinine Ratio 9.3 (10-20); Bilirubin,Total 0.5 mg/dl (0.2-1.0); Calcium 9.5 mg/dl (8.5-10.1); Creatinine Clr Calc Pharmacy 76.6 ml/min; Est GFR (African American) 82.7 ml/min; Est GFR (Non-African American) 71.4 ml/min; Globulin 3.6 gm/dl (2.5-4.0); Total Protein 7.2 gm/dl (6.0-8.3)
[2022-06-27 15:22] LABS: Troponin I High Sensitivity 7.6 pg/ml (0-14)
--- NOTE | 2022-06-27 15:58 | Emergency Department Note ---
Impression & Plan Nausea & vomiting, Diarrhea, Acute UTI (urinary tract infection) ED Provider Note INFORMANT: Patient ED PROVIDER(S): Jesse Ramos MD CHIEF COMPLAINT: Vomiting PLAN: Disposition: Admitted Condition: Good Outpatient prescription management: none Referral: None MEDICAL DECISION MAKING: Patient was evaluated. Laboratory testing sent. She had imaging ordered. Patient was treated with IV Zofran and fluids. She was also given IV Reglan and Benadryl. On reassessment the patient was transiently feeling better. She had a significant leukocytosis on CBC. Her ECG did show a mild tachycardia. Patient's chemistry panel was unremarkable. A catheter urinalysis specimen was obtained and was very concerning for UTI. The patient required additional nausea medication and was given IV Rocephin. Given the situation the patient will need further management in the hospital. Stool studies were ordered. [facility] Patient was evaluated further management Triage Nursing notes reviewed and agree them. Vital Signs: reviewed and remarkable for tachycardia Differential diagnosis: Etiologies such as gastroenteritis, recurrent enterocolitis, food borne illness, infections, appendicitis, diverticulitis, inflammatory bowel disease, GI bleed, biliary pathology, as well as others were entertained. Diagnostics interpreted by me: ECG: Twelve-lead ECG reveals a sinus tachycardia at 111 bpm. Right bundle branch block. Nonspecific ST. No ST elevation. Cardiac Monitoring: Cardiac monitoring ordered by me: The patient was placed on continuous cardiac monitoring and observed. It revealed a normal sinus rhythm at 90 beats per minute without ectopy or evidence of dysrhythmia. Imaging studies: CT scan as noted below. I refer you to the EMR for further details. HPI: The patient is a 66 year old female who presents to the Emergency Room with complaints of nausea and vomiting. This started last night and is persisting. The patient also notes the following associated symptoms, fatigue. The patient has found no relieving factors. Current pain is rated as 0/10. Patient was recently admitted to the hospital and diagnosed with an enterocolitis. She states she was doing well after discharge and then symptoms recurred. Patient was treated with Zofran IM by EMS. Patient vomited upon arrival to the ED. Denies any significant diarrhea. Pt denies LOC, headache, fevers, chills, diaphoresis, visual changes, neck pain, chest pain, breathing difficulties, abdominal pain, back pain, melena, hematochezia, urinary symptoms, numbness, weakness, lymphadenopathy, rash, or other complaints. ROS: See above HPI for pertinent positives & negatives. A total of 10 systems reviewed and were otherwise negative. PAST MEDICAL HISTORY:See Below , hypomagnesemia, weakness PAST SURGICAL HISTORY:See Below, FAMILY HISTORY:See Below SOCIAL HISTORY:See Below, HOME MEDICATIONS:See Below ALLERGIES:See Below VITALS:See Below PHYSICAL EXAMINATION: GENERAL: Awake, alert, uncomfortable-appearing, in no distress, holding a vomit bag HENT: Normocephalic, atraumatic. Oropharynx unremarkable. EYES: Normal conjunctiva. Sclera non-icteric. NECK: Inspection normal. Non-tender. Supple. No nuchal rigidity. FROM. No masses. RESPIRATORY: Clear to auscultation. No wheezes. No rales. Normal respiratory effort. CARDIAC: Tachycardic rate. Normal rhythm. No murmurs. No rubs. Extremities warm and well perfused. Pulses equal. No JVD. GI: Soft, non-distended. No tenderness to palpation. No rebound or guarding. No masses. RECTAL: Deferred. MUSCULOSKELETAL: Atraumatic. Chest examination reveals no tenderness. The back is symmetrical on inspection without obvious abnormality. There is no CVA t enderness to palpation. No joint edema. LOWER EXTREMITIES: Calves are equal size bilaterally and non-tender. No edema. No discoloration. NEURO: Normal sensorium. No sensory or motor deficits noted. SKIN: No rash or jaundice noted. Jesse Ramos MD Past Med/Surg History Medical History Acute hyponatremia Anemia Anxiety and depression Arthritis Aspiration pneumonia Diabetes GERD (gastroesophageal reflux disease) History of pulmonary embolism Hyperparathyroidism Hypomagnesemia Hypoxia Iron deficiency anemia Irritable bowel syndrome Schizoaffective disorder Smoking Vomiting and diarrhea Weakness Surgical History History of section x2 Family History Denies family history of Inflammatory bowel disease Social History Smoking Status: Current every day smoker Tobacco Type: Cigarettes Cigarettes Per Day: 2-3 packs; Second Hand Exposure: No; Hx Alcohol Use: No Hx Substance Use: No Preferred Language: Macanese Communication Ability: Effective Coater Associate Required: No Beliefs That Will Affect Care: None marital status: Current Living Situation: Alone Current Living Situation Comment: Caregiver - Wednesday-Wednesday How many Children do You have: 2 Feels Safe at Home: Yes Assistive Devices: Walker Allergies Allergies Allergy/AdvReac Type Severity Reaction Status Date / Time egg AdvReac Severe Vomiting Verified 06/27/22 17:22 Penicillins AdvReac Severe Vomiting Verified 06/27/22 17:22 Home Meds Home Medications Medication Instructions Recorded Confirmed buspirone 15 mg tablet 15 mg PO TID 10/25/20 06/27/22 [id number] 1 cap PO TID 10/25/20 06/27/22 12,000-38,000-60,000 unit capsule,delayed rel (Creon) pantoprazole 40 mg tablet,delayed 40 mg PO QAM 10/25/20 06/27/22 release (Protonix) rivaroxaban 20 mg tablet (Xarelto) 20 mg PO QAM 10/25/20 06/27/22 escitalopram oxalate 20 mg tablet 20 mg PO QAM 03/18/21 06/27/22 (Lexapro) ropinirole 0.5 mg tablet 0.5 mg PO HS 03/18/21 06/27/22 divalproex 500 mg tablet,extended 1,500 mg PO HS 06/03/21 06/27/22 release 24 hr (Depakote ER) ferrous sulfate 325 mg (65 mg 325 mg PO Q OTHER DAY 06/03/21 06/27/22 iron) tablet (Iron (ferrous sulfate)) quetiapine 400 mg tablet (Seroquel) 400 mg PO HS 06/03/21 06/27/22 cyanocobalamin (vitamin B-12) 1,000 mcg PO BID 08/05/21 06/27/22 1,000 mcg tablet (Vitamin B-12) loratadine 10 mg tablet (Allergy 10 mg PO QAM 08/05/21 06/27/22 Relief (loratadine)) thiamine HCl (vitamin B1) 100 mg 100 mg PO BID 10/11/21 06/27/22 tablet (Vitamin B-1) levothyroxine 50 mcg tablet 50 mcg PO QAM 01/21/22 06/27/22 ondansetron HCl 4 mg tablet 4 mg PO Q8 PRN Nausea And Vomiting 02/02/22 06/27/22 famotidine 20 mg tablet 20 mg PO DAILY 02/25/22 06/27/22 clonazepam 1 mg tablet 1 mg PO TID PRN Anxiety 06/16/22 06/27/22 Previous Rx's Medication Instructions Recorded magnesium oxide 400 mg (241.3 mg 400 mg PO BID #60 tabs 04/07/22 magnesium) tablet gabapentin 100 mg capsule 100 mg PO .per instructions #90 04/11/22 caps nicotine 21 mg/24 hr daily 21 mg transdermal QAM #14 ea 04/11/22 transdermal patch (Nicoderm CQ) cholestyramine (with sugar) 4 gram 2 ea PO DAILY #0 ea 04/14/22 powder for susp in a packet (Questran) folic acid 1 mg tablet 1 mg PO QAM #30 tabs 04/14/22 glipizide 5 mg tablet 5 mg PO BID #60 tabs 06/21/22 nystatin 100,000 unit/gram topical 1 applic EXT TID 7 days #30 grams 06/21/22 powder (Nystop) Results & Data (ED) Vital Signs Vital Signs - 24 hr 06/27/22 14:17 06/27/22 16:17 06/27/22 18:00 Temperature 37.0 C Temperature Source Oral Pulse Rate 111 H Pulse Rate [Right Radial] 85 79 Pulse Rhythm [Right Radial] Regular Regular Respiratory Rate 20 20 20 Respiratory Effort / Characteristics Non-Labored Spontaneous Non-Labored Non-Labored Respiratory Depth Normal Normal Normal Blood Pressure 140/93 Blood Pressure [Left Arm] 140/93 110/83 Blood Pressure Mean 108 Blood Pressure Mean [Left Arm] 108 92 Blood Pressure Position Sitting Blood Pressure Position [Left Arm] Lying Pulse Oximetry 93 97 97 Oxygen Delivery Method Room Air Room Air Sepsis Recent Fever Within 48 Hours No Sepsis New/Unexplained Change in Mental Status No Sepsis Action Taken by Nursing No Action Required Laboratory Data Result diagrams: 06/28/22 06:18 06/28/22 06:18 Lab Results 06/27/22 06/27/22 06/27/22 Range/Units 14:37 14:37 14:37 WBC 19.20 H (4.8-10.8) K/ul RBC 5.32 H (3.93-5.22) M/uL Hgb 16.3 H (12.0-16.0) g/dl Hct 49.1 H (34.1-44.9) % MCV 92.3 (80.0-100.0) fL MCH 30.6 (25.0-34.0) pg MCHC 33.2 (32.0-36.0) g/dL RDW Std Deviation 45.5 (36.4-46.3) fL RDW Coeff of [place] 13.4 (11.5-14.5) % Plt Count 243 (130-400) K/uL MPV 9.2 L (9.4-12.3) fL Immature Gran % (Auto) 1.6 % Neut % (Auto) 79.1 % Lymph % (Auto) 15.8 % [place] % (Auto) 2.3 % Eos % (Auto) 0.6 % Baso % (Auto) 0.6 % Neut # (Auto) 15.20 H (1.4-6.5) K/uL Lymph # (Auto) 3.03 (1.2-3.4) K/uL [place] # (Auto) 0.44 (0.24-0.82) K/uL Eos # (Auto) 0.11 (0-0.50) K/uL Baso # (Auto) 0.11 (0-0.2) K/uL Immature Gran # (Auto) 0.31 H (0.00-0.02) K/uL Sodium 138 (136-145) mmol/L Potassium 4.0 (3.5-5.1) mmol/L Chloride 101 (98-107) mmol/L Carbon Dioxide 25 (21-32) mmol/L Anion Gap 12 H (3-11) BUN 8 (6-23) mg/dl Creatinine 0.86 (0.6-1.2) mg/dl Est Cr Clr Drug Dosing 76.6 ml/min Est GFR ( Amer) 82.7 ml/min Est GFR (Non-Af Amer) 71.4 ml/min BUN/Creatinine Ratio 9.3 L (10-20) Glucose 143 H (70-99(Fasting)) mg/dl Calcium 9.5 (8.5-10.1) mg/dl Magnesium 1.7 (1.7-2.4) mg/dl Total Bilirubin 0.5 (0.2-1.0) mg/dl AST 10 L (13-39) U/L ALT 8 (7-52) U/L Alkaline Phosphatase 92 (34-104) U/L Troponin I High Sens 7.6 (0-14) pg/ml Total Protein 7.2 (6.0-8.3) gm/dl Albumin 3.6 (3.4-5.0) gm/dl Globulin 3.6 (2.5-4.0) gm/dl Albumin/Globulin Ratio 1.0 (0.9-2) Lipase 64 (11-82) U/L Urine Color Urine Appearance (Clear) Urine pH (4.5-7.5) Ur Specific [place] (1.000-1.030) Urine Protein (Negative) Urine Glucose (UA) (Negative) Urine Ketones (Negative) Urine Blood (Negative) Urine Nitrite (Negative) Urine Bilirubin (Negative) Urine Urobilinogen (Negative) Ur Leukocyte Esterase (Negative) Urine WBC (Auto) (0-5) /hpf Urine RBC (Auto) (0-4) /hpf U Hyaline Cast (Auto) (0-5) /lpf U Epithel Cells (Auto) (0-5) /lpf Urine Bacteria (Auto) (Negative) 06/27/22 Range/Units 17:16 WBC (4.8-10.8) K/ul RBC (3.93-5.22) M/uL Hgb (12.0-16.0) g/dl Hct (34.1-44.9) % MCV (80.0-100.0) fL MCH (25.0-34.0) pg MCHC (32.0-36.0) g/dL RDW Std Deviation (36.4-46.3) fL RDW Coeff of [place] (11.5-14.5) % Plt Count (130-400) K/uL MPV (9.4-12.3) fL Immature Gran % (Auto) % Neut % (Auto) % Lymph % (Auto) % [place] % (Auto) % Eos % (Auto) % Baso % (Auto) % Neut # (Auto) (1.4-6.5) K/uL Lymph # (Auto) (1.2-3.4) K/uL [place] # (Auto) (0.24-0.82) K/uL Eos # (Auto) (0-0.50) K/uL Baso # (Auto) (0-0.2) K/uL Immature Gran # (Auto) (0.00-0.02) K/uL Sodium (136-145) mmol/L Potassium (3.5-5.1) mmol/L Chloride (98-107) mmol/L Carbon Dioxide (21-32) mmol/L Anion Gap (3-11) BUN (6-23) mg/dl Creatinine (0.6-1.2) mg/dl Est Cr Clr Drug Dosing ml/min Est GFR ( Amer) ml/min Est GFR (Non-Af Amer) ml/min BUN/Creatinine Ratio (10-20) Glucose (70-99(Fasting)) mg/dl Calcium (8.5-10.1) mg/dl Magnesium (1.7-2.4) mg/dl Total Bilirubin (0.2-1.0) mg/dl AST (13-39) U/L ALT (7-52) U/L Alkaline Phosphatase (34-104) U/L Troponin I High Sens (0-14) pg/ml Total Protein (6.0-8.3) gm/dl Albumin (3.4-5.0) gm/dl Globulin (2.5-4.0) gm/dl Albumin/Globulin Ratio (0.9-2) Lipase (11-82) U/L Urine Color Yellow Urine Appearance Clear (Clear) Urine pH 6.0 (4.5-7.5) Ur Specific [place] 1.013 (1.000-1.030) Urine Protein Negative (Negative) Urine Glucose (UA) Negative (Negative) Urine Ketones 1+ H (Negative) Urine Blood Trace H (Negative) Urine Nitrite Positive A (Negative) Urine Bilirubin Negative (Negative) Urine Urobilinogen Negative (Negative) Ur Leukocyte Esterase Trace H (Negative) Urine WBC (Auto) 10-30 H (0-5) /hpf Urine RBC (Auto) 0-4 (0-4) /hpf U Hyaline Cast (Auto) 0 (0-5) /lpf U Epithel Cells (Auto) 20-30 H (0-5) /lpf Urine Bacteria (Auto) 4+ H (Negative) Administered Medications Buspirone HCl (Buspirone 15 Mg Tab) 15 mg PO TID [facility] Stop: 07/28/22 00:27 Last Admin: 06/28/22 01:03 Dose: 15 mg Documented By: BRANDYN Cyanocobalamin (Cyanocobalamin (B-12) 500 Mcg Tablet) 1,000 mcg PO BID MARY Stop: 07/28/22 00:27 Last Admin: 06/28/22 01:42 Dose: 1,000 mcg Documented By: BRANDYN Divalproex Sodium (Divalproex Extended Release 500 Mg Tab) 1,500 mg PO [facility] Stop: 07/28/22 00:27 Last Admin: 06/28/22 01:42 Dose: 1,500 mg Documented By: BRANDYN Parenteral Electrolytes (Normosol-R) 1,000 mls @ 125 mls/hr IV .Q8H MARY Stop: 06/28/22 16:27 Last Infusion: 06/28/22 05:55 Dose: 125 mls/hr Documented By: Infusion: 06/28/22 01:45 Dose: 0 mls/hr Documented By: Admin: 06/28/22 01:00 Dose: 125 mls/hr Documented By: BRANDYN Pantoprazole Sodium 40 mg/ (Syringe) 10 mls @ 5 mls/min IV BID [facility] Stop: 07/28/22 00:27 Last Admin: 06/28/22 01:02 Dose: 5 mls/min Documented By: BRANDYN Insulin Aspart (Insulin Aspart Per Unit) 0 units SC ACHS [facility] Stop: 07/28/22 00:27 Last Admin: 06/28/22 01:14 Dose: Not Given Documented By: BRANDYN Co-signed By: SONG Levothyroxine Sodium (Levothyroxine Sodium 50 Mcg Tablet) 50 mcg PO DAILYBB [facility] Stop: 07/28/22 06:29 Last Admin: 06/28/22 05:56 Dose: 50 mcg Documented By: BRANDYN Quetiapine Fumarate (Quetiapine Fumarate 100 Mg Tablet) 100 mg PO [facility] Stop: 07/28/22 00:27 Last Admin: 06/28/22 01:03 Dose: 100 mg Documented By: BRANDYN Ropinirole HCl (Ropinirole Hcl 0.25 Mg Tablet) 0.5 mg PO [facility] Stop: 07/28/22 00:27 Last Admin: 06/28/22 01:03 Dose: 0.5 mg Documented By: BRANDYN Discontinued Medications Diphenhydramine HCl (Diphenhydramine 50 Mg/Ml Vial) Confirm Administered Dose 50 mg .ROUTE .STK-MED ONE Stop: 06/27/22 15:15 Last Admin: 06/27/22 15:19 Dose: Not Given Documented By: BART Sodium Chloride (Nss) 500 mls @ 999 mls/hr IV .Q31M STA Stop: 06/27/22 15:05 Last Infusion: 06/27/22 16:43 Dose: 0 mls/hr Documented By: Admin: 06/27/22 15:19 Dose: 999 mls/hr Documented By: BART Sodium Chloride (Nss 1000ml) 1,000 mls @ 125 mls/hr IV .Q8H STA Stop: 06/27/22 22:34 Last Infusion: 06/27/22 15:19 Dose: 125 mls/hr Documented By: Admin: 06/27/22 14:49 Dose: 125 mls/hr Documented By: RANJITH Diphenhydramine HCl 12.5 mg/ (Syringe) 0.25 mls @ 1 mls/hr IV NOW STA Stop: 06/27/22 15:16 Last Admin: 06/27/22 15:18 Dose: 1 mls/hr Documented By: BART Ceftriaxone Sodium (Rocephin) 2,000 mg in 70 mls @ 140 mls/hr IV NOW STA Stop: 06/27/22 18:12 Last Infusion: 06/27/22 20:08 Dose: 0 mls/hr Documented By: Admin: 06/27/22 19:07 Dose: 140 mls/hr Documented By: BART Magnesium Sulfate/Dextrose (Magnesium Sulfate / D5w) 1 gm in 100 mls @ 50 mls/hr IV Q2H MARY Stop: 06/28/22 04:27 Last Infusion: 06/28/22 05:55 Dose: 0 mls/hr Documented By: Admin: 06/28/22 03:53 Dose: 50 mls/hr Documented By: Infusion: 06/28/22 03:44 Dose: 50 mls/hr Documented By: Admin: 06/28/22 01:44 Dose: 50 mls/hr Documented By: BRANDYN Metoclopramide HCl (Metoclopramide Hcl Inj 5 Mg/Ml 2 Ml Vial) 5 mg IV ONE ONE Stop: 06/27/22 15:03 Last Admin: 06/27/22 15:18 Dose: 5 mg Documented By: BART Metoclopramide HCl (Metoclopramide Hcl Inj 5 Mg/Ml 2 Ml Vial) 5 mg IV ONE ONE Stop: 06/27/22 17:58 Last Admin: 06/27/22 19:07 Dose: 5 mg Documented By: BART Ondansetron HCl (Ondansetron Inj 2 Mg/Ml 2 Ml Vial) 4 mg IV NOW STA Stop: 06/27/22 14:36 Last Admin: 06/27/22 14:49 Dose: 4 mg Documented By: RANJITH Discharge Plan Visit Data Chief Complaint: Vomiting Stated Complaint: vomiting ED Provider: Jesse Ramos Discharge Problem: Nausea & vomiting, Diarrhea, Acute UTI (urinary tract infection) Patient Disposition: Admitted As Inpatient Discharge Instructions Interventions: ED Discharge Assessment Last Done: 06/27/22 23:51
--- NOTE | 2022-06-27 16:17 | CT Scan Report ---
CT abd pelvis wo con CLINICAL HISTORY: nausea and vomiting. Recent enterocolitis. TECHNIQUE: Helical axial images of the abdomen and pelvis were obtained. Automated dose lowering tech niques and/or adjustment according to patient size were utilized for this exam. This exam was perfor med without intravenous contrast. CT DOSE: 1548.72 mGy.cm COMPARISON: None available at the time of this dictation. FINDINGS: Lower chest: Bibasilar atelectasis versus scarring is seen. Liver: Unremarkable. No focal lesions are seen. Gallbladder and biliary tree: Patient is status post cholecystectomy. No intra- or extrahepatic bilia ry ductal dilation. Pancreas: Unremarkable, no focal lesions. Spleen: Unremarkable. Adrenals: Unremarkable. Kidneys and ureters: Unremarkable. Bladder: Limited evaluation due to underdistention. Reproductive organs: Patient is status post hysterectomy. Bowel: Unremarkable appearance of the bowel. The appendix is normal. No evidence of bowel obstruction . Lymph nodes Retroperitoneal: Unremarkable. Pelvic: Unremarkable. Mesenteric: Unremarkable. Peritoneum: Normal. Vessels: Unremarkable. Abdominal wall: Soft tissue stranding is seen in the posterior midline. Bones: Degenerative changes in the visualized spine. IMPRESSION: No evidence of acute abnormality is seen, in particular no evidence of obstruction. Additional findin gs as above. ACT 112: Negative or not required by law. Electronically signed by: Devon España M.D. 06/27/2022 4:15 PM
[2022-06-27 17:32] LABS: Appearance Urine Clear (Clear); Bacteria Urine Automated 4+ (Negative); Bilirubin Urine Negative (Negative); Blood Urine Trace (Negative); Cast Urine Automated 0 /lpf (0-5); Color Urine Yellow; Epithelial Cell Urine Auto 20-30 /lpf (0-5); Glucose Urine UA Negative (Negative); Ketones Urine 1+ (Negative); Leukocyte Esterase Urine Trace (Negative); Nitrite Urine Positive (Negative); Protein Urine Negative (Negative); RBC Urine Automated 0-4 /hpf (0-4); Specific Gravity Urine 1.013 (1.000-1.030); Urobilinogen Urine Negative (Negative)
[2022-06-27] MEDS ORDERED: cefTRIAXone SODIUM 2,000 MG/70 ML BAG IV STA (17:43)
--- NOTE | 2022-06-27 18:15 | History & Physical Report ---
Date of Service June 27, 2022 Assessment & Plan (1) Nausea, vomiting, and diarrhea: Plan: Patient with intractable nausea and vomiting. History enterocolitis. Previous seen by GI in the past. Patient has what appears to be a current urinary tract infection. This may be recreating stimulus for the patient's GI symptoms. Ceftriaxone is been started blood and urine cultures obtained this to be continued. She will be hydrated with intravenous fluids patient will have antiemetics available IV Protonix will be utilized (2) Hypothyroid: Plan: Continue thyroid medication (3) Hypomagnesemia: Plan: Magnesium is low normal this will be repleted (4) Tobacco abuse: Plan: Nicotine patch is offered (5) History of pulmonary embolism: Plan: Xarelto continues (6) Schizoaffective disorder: Plan: Patient remains on Depakote levels were checked last hospital stay, Seroquel dose was reduced to 100 but can go up easily if the patient requires it escitalopram continues clonazepam as needed for anxiety buspirone for anxiety also (7) Diabetes: Plan: Insulin sliding scale be continued patient's glipizide to be held she is on a clear liquid diet at this time History of Present Illness Primary Care Provider: Dylan Fuentes PA-C 66-year-old female discharged from [facility] on June 21 after admission for enterocolitis. The patient had extensive work-up without infectious etiologies. Patient was doing well at home until today the day of admission. She began feeling nauseous and then began vomiting she presented to the emergency department. She also notes that she is been having increasing urination with some dysuria and she has had loose bowel movements after her vomiting ensued. She continues to have loose bowel movements here in the emergency department. Patient had multiple episodes of vomiting she has been unable to keep down any oral intake. She had used multiple antiemetics because she cannot keep down oral medications to treat a suspected urinary tract infection she is recommended for admission. Given her previous admission with enterocolitis and the fact that her symptoms are is recurred I doubt this will be a short stay. Current COVID testing is pending Laboratories are with a leukocytosis of 19 other electrolytes are within normal limits with exception of magnesium and slightly low Allergies Allergy/AdvReac Type Severity Reaction Status Date / Time egg AdvReac Severe Vomiting Verified 06/27/22 17:22 Penicillins AdvReac Severe Vomiting Verified 06/27/22 17:22 Home Medications Medication Instructions Recorded Confirmed Type buspirone 15 mg tablet 15 mg PO TID 10/25/20 06/27/22 History toxcrl-ioebzjah-tsfinhs 1 cap PO TID 10/25/20 06/27/22 History 12,000-38,000-60,000 unit capsule,delayed rel (Creon) pantoprazole 40 mg tablet,delayed 40 mg PO QAM 10/25/20 06/27/22 History release (Protonix) rivaroxaban 20 mg tablet (Xarelto) 20 mg PO QAM 10/25/20 06/27/22 History escitalopram oxalate 20 mg tablet 20 mg PO QAM 03/18/21 06/27/22 History (Lexapro) ropinirole 0.5 mg tablet 0.5 mg PO HS 03/18/21 06/27/22 History divalproex 500 mg tablet,extended 1,500 mg PO HS 06/03/21 06/27/22 History release 24 hr (Depakote ER) ferrous sulfate 325 mg (65 mg 325 mg PO Q OTHER DAY 06/03/21 06/27/22 History iron) tablet (Iron (ferrous sulfate)) quetiapine 400 mg tablet (Seroquel) 400 mg PO HS 06/03/21 06/27/22 History cyanocobalamin (vitamin B-12) 1,000 mcg PO BID 08/05/21 06/27/22 History 1,000 mcg tablet (Vitamin B-12) loratadine 10 mg tablet (Allergy 10 mg PO QAM 08/05/21 06/27/22 History Relief (loratadine)) thiamine HCl (vitamin B1) 100 mg 100 mg PO BID 10/11/21 06/27/22 History tablet (Vitamin B-1) levothyroxine 50 mcg tablet 50 mcg PO QAM 01/21/22 06/27/22 History ondansetron HCl 4 mg tablet 4 mg PO Q8 PRN Nausea And Vomiting 02/02/22 06/27/22 History famotidine 20 mg tablet 20 mg PO DAILY 02/25/22 06/27/22 History magnesium oxide 400 mg (241.3 mg 400 mg PO BID #60 tabs 04/07/22 06/27/22 Rx magnesium) tablet gabapentin 100 mg capsule 100 mg PO .per instructions #90 04/11/22 06/27/22 Rx caps nicotine 21 mg/24 hr daily 21 mg transdermal QAM #14 ea 04/11/22 06/27/22 Rx transdermal patch (Nicoderm CQ) cholestyramine (with sugar) 4 gram 2 ea PO DAILY #0 ea 04/14/22 06/27/22 Rx powder for susp in a packet (Questran) folic acid 1 mg tablet 1 mg PO QAM #30 tabs 04/14/22 06/27/22 Rx clonazepam 1 mg tablet 1 mg PO TID PRN Anxiety 06/16/22 06/27/22 History glipizide 5 mg tablet 5 mg PO BID #60 tabs 06/21/22 06/27/22 Rx nystatin 100,000 unit/gram topical 1 applic EXT TID 7 days #30 grams 06/21/22 06/27/22 Rx powder (Nystop) Past Med/Surg History Medical History Acute hyponatremia Anemia Anxiety and depression Arthritis Aspiration pneumonia Diabetes GERD (gastroesophageal reflux disease) History of pulmonary embolism Hyperparathyroidism Hypomagnesemia Hypoxia Iron deficiency anemia Irritable bowel syndrome Schizoaffective disorder Smoking Vomiting and diarrhea Weakness Surgical History History of section x2 Family History Denies family history of Inflammatory bowel disease Social History Smoking Status: Current every day smoker Tobacco Type: Cigarettes Cigarettes Per Day: 2-3 packs; Second Hand Exposure: No; Hx Alcohol Use: No Hx Substance Use: No Preferred Language: Bengali Communication Ability: Effective Transplanter Orchid Required: No Beliefs That Will Affect Care: None marital status: Current Living Situation: Alone Current Living Situation Comment: Lives with Daughter How many Children do You have: 2 Feels Safe at Home: Yes Assistive Devices: Bedside Commode and Walker Review of Systems Review of Systems: Mild distress and moderate fatigue no headache, no visual changes no speech or swallowing issues no chest pain, pressure or palpitations no shortness of breath, cough or wheezes Some left-sided abdominal pain, significant nausea, vomiting, & diarrhea dysuria, & frequency no focal joint pain or swelling no back pain, CVA tenderness or radicular pain no bruising, bleeding or rashes no focal signs of weakness or numbness or altered sensation no complaints of anxiety or depression.. Physical Exam Physical Exam: The patient appeared well nourished and normally developed. Appears in mild to moderate distress Vital signs as documented. Head exam is normocephalic atraumatic Neck is without JVD, thyromegaly, or carotid bruits. Lungs are clear to auscultation, no focal loss of breath sounds Cardiac exam, Rhythm is regular.. No murmurs, rubs or gallops. Abdominal exam reveals normal bowel sounds, soft nonspecific diffuse tenderness no guarding no rebound Extremities are nonedematous and both pedal pulses are present Neurologic exam is alert and oriented, no focal loss of strength or sensation Skin is without bruises or rashes Psychologically is without concerns for anxiety or depression.. Results & Data Results & Data ([facility]) Vital Signs (Past 12 Hours) Vital Signs Temp Pulse Pulse Resp BP BP Pulse Ox 06/27/22 16:17 85 20 140/93 97 06/27/22 14:17 98.6 F 111 H 20 140/93 93 O2 Del Method 06/27/22 16:17 Room Air 06/27/22 14:17 Room Air Diagnostic Findings CT abdomen pelvis without acute findings ECG Additional Comments: Normal sinus rhythm with a right bundle branch block Code Status & VTE Plan VTE Prophylaxis Plan VTE Prophylaxis will be ordered: Yes PG Care Time/CCT Total # of Minutes Spent Total Time Spent with Patient: Total time spent is greater than 50% in coordination of care (as documented) at patient's floor/unit and/or counseling patient: Coding Level of Care Code 10406 Initial Inpt Care Lvl 2 Diagnoses Nausea, vomiting, and diarrhea R11.2; R19.7 Hypothyroid E03.9 Hypomagnesemia E83.42 Tobacco abuse Z72.0 History of pulmonary embolism Z86.711 Schizoaffective disorder F25.1 Schizoaffective disorder type: depressive Diabetes E11.9; Z79.4 Diabetes mellitus complication status: without complication Diabetes mellitus shelter insulin use: with terminal makeup operator use Diabetes mellitus type: type 2 (1) Diabetes Diabetes mellitus complication status: without complication Diabetes mellitus terminal makeup operator insulin use: with terminal makeup operator use Diabetes mellitus type: type 2 Qualified Code(s): E11.9 - Type 2 diabetes mellitus without complications; Z79.4 - retirement (current) use of insulin (2) Schizoaffective disorder Schizoaffective disorder type: depressive Qualified Code(s): F25.1 - Schizoaffective disorder, depressive type
[2022-06-27 20:35] LABS: Adenovirus F 40/41 PCR Not Detected (NotDetected); Astrovirus PCR Not Detected (NotDetected); Campylobacter PCR Not Detected (NotDetected); Clostridium diff Toxin A/B PCR Not Detected (NotDetected); Cryptosporidium PCR Not Detected (NotDetected); Cyclospora cayetanensis PCR Not Detected (NotDetected); Entamoeba histolytica PCR Not Detected (NotDetected); Enteroaggregative E.coli(EAEC) Not Detected (NotDetected); Enteropathogenic E.coli (EPEC) Not Detected (NotDetected); Enterotoxigenic E.coli (ETEC) Not Detected (NotDetected); Giardia lamblia PCR Not Detected (NotDetected); Norovirus GI/GII PCR Not Detected (NotDetected); Plesiomonas shigelloides PCR Not Detected (NotDetected); Rotavirus A PCR Not Detected (NotDetected); Salmonella PCR Not Detected (NotDetected); Sapovirus PCR Not Detected (NotDetected); Shiga-like Toxin E.coli (STEC) Not Detected (NotDetected); Shigella/Enteroinvasive E.coli Not Detected (NotDetected); Vibrio cholerae PCR Not Detected (NotDetected); Vibrio species PCR Not Detected (NotDetected); Yersinia enterocolitica PCR Not Detected (NotDetected)
[2022-06-28] MEDS ORDERED: GLUCOSE 10 TAB/TUBE PO PRN (00:28)
[2022-06-28] MEDS ORDERED: DEXTROSE 50% 50 ML SYRINGE IV PRN (00:28)
[2022-06-28] MEDS ORDERED: ONDANSETRON INJ 2 MG/ML 2 ML VIAL IV PRN (00:28)
[2022-06-28] MEDS ORDERED: GLUCAGON FOR INJ 1 MG VIAL SQ PRN (00:28)
[2022-06-28] MEDS ORDERED: ACETAMINOPHEN 1000 MG/100 ML IV IV PRN (00:28)
[2022-06-28] MEDS ORDERED: clonazePAM 1 MG TAB PO PRN (00:28)
[2022-06-28] MEDS ORDERED: PROMETHAZINE HCL 12.5 MG in SODIUM CHLORIDE 0.9% 50 ML IV PRN (00:28)
[2022-06-28] MEDS ORDERED: GLUCOSE 40% GEL 15 GM TUBE PO PRN (00:28)
[2022-06-28] MEDS ORDERED: CARBOHYDRATES FOR HYPOGLYCEMIA PO PRN (00:28)
[2022-06-28] MEDS ORDERED: ACETAMINOPHEN 1,000 MG/100 ML VIAL IV PRN (01:00)
[2022-06-28] MEDS: NORMOSOL-R 1,000 ML IV SCH ×2 (01:00→13:28)
[2022-06-28] MEDS: PANTOprazole 40 MG in SYRINGE 0 ML IV SCH ×3 (01:02→21:08)
[2022-06-28] MEDS: busPIRone 15 MG TAB PO SCH ×4 (01:03→21:10)
[2022-06-28] MEDS: rOPINIRole HCL 0.25 MG TABLET PO SCH ×2 (01:03→21:09)
[2022-06-28] MEDS: QUEtiapine FUMARATE 100 MG TABLET PO SCH ×2 (01:03→21:08)
[2022-06-28] MEDS: INSULIN ASPART PER UNIT SC SCH ×5 (01:14→22:15)
[2022-06-28] MEDS: DIVALPROEX EXTENDED RELEASE 500 MG TAB PO SCH ×2 (01:42→21:10)
[2022-06-28] MEDS: CYANOCOBALAMIN (B-12) 500 MCG TABLET PO SCH ×3 (01:42→21:11)
[2022-06-28] MEDS: MAGNESIUM SULFATE / D5W 1 GM/100 ML BAG IV SCH ×2 (01:44→03:53)
[2022-06-28] MEDS: LEVOTHYROXINE SODIUM 50 MCG TABLET PO SCH (05:56)
[2022-06-28 06:57] LABS: Hematocrit (blood only) 37.7 % (34.1-44.9); Hemoglobin 12.6 g/dl (12.0-16.0); Mean Corpuscular Hemoglobin 31.3 pg (25.0-34.0); Mean Corpuscular Hgb Conc 33.4 g/dL (32.0-36.0); Mean Corpuscular Volume 93.8 fL (80.0-100.0); Mean Platelet Volume 9.4 fL (9.4-12.3); Platelet Count 199 K/uL (130-400); RDW Coefficient of Variation 13.4 % (11.5-14.5); RDW Standard Deviation 45.7 fL (36.4-46.3); Red Blood Count 4.02 M/uL (3.93-5.22); White Blood Count 14.53 K/ul (4.8-10.8)
[2022-06-28 07:27] LABS: BUN Creatinine Ratio 11.8 (10-20); Calcium 8.3 mg/dl (8.5-10.1); Creatinine Clr Calc Pharmacy 74.6 ml/min; Est GFR (African American) 83.9 ml/min; Est GFR (Non-African American) 72.4 ml/min; Magnesium 2.2 mg/dl (1.7-2.4)
[2022-06-28] MEDS: GABAPENTIN 100 MG CAP PO SCH ×3 (09:59→21:09)
[2022-06-28] MEDS: ESCITALOPRAM OXALATE 20 MG TAB PO SCH (09:59)
[2022-06-28] MEDS: RIVAROXABAN 20 MG TAB PO SCH (09:59)
[2022-06-28] MEDS: FAMOTIDINE 20 MG TAB PO SCH (09:59)
[2022-06-28] MEDS: FERROUS SULFATE 325 MG TAB PO SCH (09:59)
[2022-06-28] MEDS: THIAMINE HCL 100 MG TAB PO SCH (09:59)
[2022-06-28] MEDS: FOLIC ACID 1 MG TAB PO SCH (10:00)
[2022-06-28] MEDS: NICOTINE 21 MG/24 HR TDSY TD SCH (10:00)
--- NOTE | 2022-06-28 12:02 | Hospitalist Progress Note ---
Date of Service June 28, 2022 Assessment & Plan (1) Nausea, vomiting, and diarrhea: Plan: Patient with recurrent intractable nausea and vomiting. Has been seen by GI in the past. She has responded to parenteral Reglan in the past which has been ordered now. Continue clear liquid diet and advance as tolerated. (2) Hypothyroid: Plan: Continue thyroid medication (3) Hypomagnesemia: Plan: Magnesium was low normal on admission and has been repleted (4) Tobacco abuse: Plan: Nicotine patch offered (5) History of pulmonary embolism: Plan: Xarelto continued (6) Schizoaffective disorder: Plan: Patient remains on Depakote. Levels were checked last hospital stay. Seroquel dose was reduced to 100 but can go up easily if the patient requires it. Escitalopram continued. Clonazepam as needed for anxiety. Buspirone for anx iety also (7) Diabetes: Plan: Insulin sliding scale for now. Glipizide to be held until resumption of diabetic diet (8) UTI (urinary tract infection): Plan: Present on admission. Gram-negative rods isolated. Continue intravenous Rocephin, day 2. Tailor antibiotics according to urine culture results Plan Eventual discharge to home Admission and Anticipated Discharge Date Admission Date: June 27, 2022 Subjective Alert and pleasant. She continues to have nausea with intermittent vomiting. She has responded to parenteral metoclopramide in the past which has been ordered. Continue clear liquid diet for now. Intravenous fluids ordered on admission. Urine culture growing gram-negative rods. She currently is on Rocephin. Review of Systems Review of Systems: Constitutional-no fever or chills ENT-no blurred vision, no double vision, no epistaxis, no sore throat Respiratory-no cough, no wheezing, no shortness of breath Cardiac-no palpitations, no chest pain, no syncope GI-no nausea, vomiting, diarrhea, melena, hematochezia -UTI symptoms. No incontinence. No hematuria Musculoskeletal-no joint pain, no muscle tenderness Skin-no bruising, no rashes, no pruritus Neuro-no isolated weakness, no paresthesia, no weakness Psych-no depression, no anxiety Physical Exam Physical Exam: General-alert and oriented x3, no fevers, no chills HEENT-head atraumatic and normocephalic, TMs intact bilaterally, pupils equal and reactive to light, extraocular muscles intact Neck-no lymphadenopathy or thyromegaly, trachea midline Chest-clear to auscultation percussion. No rales wheezing or rhonchi Cardiac-regular rate and rhythm, normal S1 and S2, no murmurs Abdomen-normal bowel sounds, no hepatosplenomegaly. Protracted nausea and intermittent vomiting. Some occasional diarrhea. Epigastric tenderness. No rebound or guarding Extremities-no cyanosis, clubbing, or edema Neuro-cranial nerves II through XII intact, motor and sensory function within normal limits, strength symmetrical , no focal deficits Psych-normal affect, normal mood Results & Data Results & Data ([facility]) Vital Signs (Past 12 Hours) Vital Signs Temp Pulse Pulse Resp BP BP Pulse Ox 06/28/22 11:38 06/28/22 07:42 37.0 C 74 18 94/60 L 89 L 06/28/22 00:33 36.9 C 86 16 97/66 L 93 O2 Del Method 06/28/22 11:38 Room Air 06/28/22 07:42 Room Air 06/28/22 00:33 Room Air Laboratory Results 06/28/22 06:18 06/28/22 06:18 PG Care Time/CCT Total # of Minutes Spent Total Time Spent with Patient: Total time spent is greater than 50% in coordination of care (as documented) at patient's floor/unit and/or counseling patient: Coding Level of Care Code 26434 Subseq Hosp Care Lvl 3 Diagnoses Nausea, vomiting, and diarrhea R11.2; R19.7 Hypothyroid E03.9 Hypomagnesemia E83.42 Tobacco abuse Z72.0 History of pulmonary embolism Z86.711 Schizoaffective disorder F25.1 Schizoaffective disorder type: depressive Diabetes E11.9; Z79.4 Diabetes mellitus type: type 2 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
[2022-06-28] MEDS: METOCLOPRAMIDE HCL INJ 5 MG/ML 2 ML VIAL IV SCH ×3 (13:13→23:19)
--- NOTE | 2022-06-28 13:32 | Electrocardiogram Report ---
Test Reason : Blood Pressure : / mmHG Vent. Rate : 111 BPM Atrial Rate : 111 BPM P-R Int : 158 ms QRS Dur : 132 ms QT Int : 378 ms P-R-T Axes : 033 131 004 degrees QTc Int : 514 ms Sinus tachycardia Right bundle branch block Abnormal ECG When compared with ECG of 16-JUN-2022 11:07, T wave inversion no longer evident in Lateral leads Confirmed by Dave Real ([id number]) on 06/28/2022 1:32:37 PM Referred By: REFERRED SELF Confirmed By:Dave Real
[2022-06-28] MEDS: cefTRIAXone SODIUM 2,000 MG in DEXTROSE 5% 50 ML IV SCH (17:44)
[2022-06-28] MEDS: CHOLESTYRAMINE LIGHT 4 GM PKT PO SCH (22:06)
[2022-06-29] MEDS: LEVOTHYROXINE SODIUM 50 MCG TABLET PO SCH (05:57)
[2022-06-29] MEDS: METOCLOPRAMIDE HCL INJ 5 MG/ML 2 ML VIAL IV SCH ×3 (05:58→17:44)
[2022-06-29 06:06] LABS: Hematocrit (blood only) 35.7 % (34.1-44.9); Hemoglobin 11.8 g/dl (12.0-16.0); Mean Corpuscular Hemoglobin 30.7 pg (25.0-34.0); Mean Corpuscular Hgb Conc 33.1 g/dL (32.0-36.0); Mean Platelet Volume 9.5 fL (9.4-12.3); Platelet Count 186 K/uL (130-400); RDW Coefficient of Variation 13.2 % (11.5-14.5); RDW Standard Deviation 44.8 fL (36.4-46.3); Red Blood Count 3.84 M/uL (3.93-5.22); White Blood Count 9.04 K/ul (4.8-10.8)
[2022-06-29 06:34] LABS: BUN Creatinine Ratio 6.2 (10-20); Calcium 8.2 mg/dl (8.5-10.1); Creatinine Clr Calc Pharmacy 78.3 ml/min; Est GFR (Non-African American) 76.8 ml/min; Magnesium 2.1 mg/dl (1.7-2.4); Potassium 3.8 mmol/L (3.5-5.1)
[2022-06-29] MEDS: ESCITALOPRAM OXALATE 20 MG TAB PO SCH (09:11)
[2022-06-29] MEDS: RIVAROXABAN 20 MG TAB PO SCH (09:11)
[2022-06-29] MEDS: THIAMINE HCL 100 MG TAB PO SCH (09:11)
[2022-06-29] MEDS: FAMOTIDINE 20 MG TAB PO SCH (09:11)
[2022-06-29] MEDS: CYANOCOBALAMIN (B-12) 500 MCG TABLET PO SCH ×2 (09:11→19:57)
[2022-06-29] MEDS: busPIRone 15 MG TAB PO SCH ×3 (09:11→19:56)
[2022-06-29] MEDS: FOLIC ACID 1 MG TAB PO SCH (09:11)
[2022-06-29] MEDS: GABAPENTIN 100 MG CAP PO SCH ×3 (09:11→19:57)
[2022-06-29] MEDS: NICOTINE 21 MG/24 HR TDSY TD SCH (09:12)
[2022-06-29] MEDS: PANTOprazole 40 MG in SYRINGE 0 ML IV SCH (09:12)
[2022-06-29] MEDS: CHOLESTYRAMINE LIGHT 4 GM PKT PO SCH ×2 (09:12→21:03)
[2022-06-29] MEDS: INSULIN ASPART PER UNIT SC SCH ×4 (09:20→21:05)
[2022-06-29] MEDS: cefTRIAXone SODIUM 2,000 MG in DEXTROSE 5% 50 ML IV SCH (17:44)
--- NOTE | 2022-06-29 17:46 | Hospitalist Progress Note ---
Date of Service June 29, 2022 Assessment & Plan (1) Nausea, vomiting, and diarrhea: Plan: Patient with recurrent intractable nausea and vomiting. Has been seen by GI in the past. She has responded to parenteral Reglan in the past which has been ordered now. Advance diet; cannot diagnose diabetic gastroparesis; stool Calprotectin from last time does not seem impressiveoutpatient GI follow-up (2) Hypothyroid: Plan: Continue thyroid medication (3) Hypomagnesemia: Plan: Magnesium was low normal on admission and has been repleted (4) Tobacco abuse: Plan: Nicotine patch offered (5) History of pulmonary embolism: Plan: Xarelto continued (6) Schizoaffective disorder: Plan: Patient remains on Depakote. Levels were checked last hospital stay. Seroquel dose was reduced to 100 but can go up easily if the patient requires it. Escitalopram continued. Clonazepam as needed for anxiety. Buspirone for anxiety also (7) Diabetes: Plan: Insulin sliding scale for now. Glipizide to be held until resumption of diabetic diet (8) UTI (urinary tract infection): Plan: Present on admission. E. coli sensitive to Rocephincontinue but switch to p.o. soon Plan MobilizeOT/PT Admission and Anticipated Discharge Date Admission Date: June 27, 2022 Subjective Follow-up of presentation with nausea vomiting and diarrheafeels much better and wants to advance diet Physical Exam Physical Exam: Constitutional and general: No acute distress, looks biologic age Head and face: No puffiness, atraumatic Eyes: No scleral icterus, extraocular movements normal Neck: Supple, no JVD Musculoskeletal: No acute joint swelling, no bony abnormalities Skin/dermatologic/integument: No rash, no purpura Hematologic and lymphatic: pallor +, no petechia Gastrointestinal/abdomen: Nondistended, soft, nonacute Neurologic: Cranial nerves intact, nonfocal Psychiatry: Awake, alert, pleasant, communicative Cardiovascular: Heart rhythm regular, no rub, no murmur, no gallop Respiratory: Chest movements equal, no use of accessory muscles, no adventitious sounds Extremities: No edema, no cyanosis Results & Data Results & Data ([facility]) Vital Signs (Past 12 Hours) Vital Signs Temp Pulse Resp BP Pulse Ox O2 Del Method 06/29/22 15:25 36.8 C 70 16 96/65 L 93 Room Air Laboratory Results Laboratory Results - last 24 hr 06/28/22 06/29/22 06/29/22 21:16 05:47 05:47 WBC 9.04 RBC 3.84 L Hgb 11.8 L Hct 35.7 MCV 93.0 MCH 30.7 MCHC 33.1 RDW Std Deviation 44.8 RDW Coeff of [place] 13.2 Plt Count 186 MPV 9.5 Sodium 139 Potassium 3.8 Chloride 106 Carbon Dioxide 27 Anion Gap 6 BUN 5 L Creatinine 0.81 Est Cr Clr Drug Dosing 78.3 Est GFR ( Amer) 89.0 Est GFR (Non-Af Amer) 76.8 BUN/Creatinine Ratio 6.2 L Glucose 99 POC Glucose 120 H Calcium 8.2 L Magnesium 2.1 06/29/22 06/29/22 06/29/22 08:12 12:02 15:24 WBC RBC Hgb Hct MCV MCH MCHC RDW Std Deviation RDW Coeff of [place] Plt Count MPV Sodium Potassium Chloride Carbon Dioxide Anion Gap BUN Creatinine Est Cr Clr Drug Dosing Est GFR ( Amer) Est GFR (Non-Af Amer) BUN/Creatinine Ratio Glucose POC Glucose 140 H 108 H 89 Calcium Magnesium 06/29/22 06/29/22 16:04 17:18 WBC RBC Hgb Hct MCV MCH MCHC RDW Std Deviation RDW Coeff of [place] Plt Count MPV Sodium Potassium Chloride Carbon Dioxide Anion Gap BUN Creatinine Est Cr Clr Drug Dosing Est GFR ( Amer) Est GFR (Non-Af Amer) BUN/Creatinine Ratio Glucose POC Glucose 101 H 133 H Calcium Magnesium PG Care Time/CCT Total # of Minutes Spent Total Time Spent with Patient: Total time spent is greater than 50% in coordination of care (as documented) at patient's floor/unit and/or counseling patient: Coding Level of Care Code 58263 Subseq Hosp Care Lvl 2 Diagnoses Nausea, vomiting, and diarrhea R11.2; R19.7 Hypothyroid E03.9 Hypomagnesemia E83.42 Tobacco abuse Z72.0 History of pulmonary embolism Z86.711 Schizoaffective disorder F25.1 Schizoaffective disorder type: depressive Diabetes E11.9; Z79.4 Diabetes mellitus type: type 2 Diabetes mellitus half-way insulin use: with half-way use Diabetes mellitus complication status: without complication UTI (urinary tract infection) N39.0 (1) Schizoaffective disorder Schizoaffective disorder type: depressive Qualified Code(s): F25.1 - Schizoaffective disorder, depressive type (2) Diabetes Diabetes mellitus type: type 2 Diabetes mellitus termination clerk insulin use: with half-way use Diabetes mellitus complication status: without complication Qualified Code(s): E11.9 - Type 2 diabetes mellitus without complications; Z79.4 - [facility] (current) use of insulin
[2022-06-29] MEDS: DIVALPROEX EXTENDED RELEASE 500 MG TAB PO SCH (19:56)
[2022-06-29] MEDS: rOPINIRole HCL 0.25 MG TABLET PO SCH (19:56)
[2022-06-29] MEDS: PANTOprazole 40 MG TAB PO SCH (20:00)
[2022-06-29] MEDS ORDERED: QUEtiapine FUMARATE 200 MG TAB PO SCH (21:00)
[2022-06-29] MEDS ORDERED: MELATONIN 3 MG TAB PO PRN (23:38)
[2022-06-30] MEDS: LEVOTHYROXINE SODIUM 50 MCG TABLET PO SCH (06:18)
[2022-06-30 07:52] LABS: Hematocrit (blood only) 34.1 % (34.1-44.9); Hemoglobin 11.4 g/dl (12.0-16.0); Mean Corpuscular Hgb Conc 33.4 g/dL (32.0-36.0); Mean Corpuscular Volume 92.7 fL (80.0-100.0); Mean Platelet Volume 9.8 fL (9.4-12.3); Platelet Count 180 K/uL (130-400); RDW Coefficient of Variation 13.6 % (11.5-14.5); RDW Standard Deviation 45.7 fL (36.4-46.3); Red Blood Count 3.68 M/uL (3.93-5.22); White Blood Count 8.94 K/ul (4.8-10.8)
[2022-06-30 08:20] LABS: BUN Creatinine Ratio 6.4 (10-20); Calcium 8.3 mg/dl (8.5-10.1); Creatinine Clr Calc Pharmacy 81.3 ml/min; Est GFR (African American) 93.1 ml/min; Est GFR (Non-African American) 80.3 ml/min; Magnesium 1.9 mg/dl (1.7-2.4); Potassium 4.4 mmol/L (3.5-5.1)
[2022-06-30] MEDS: CYANOCOBALAMIN (B-12) 500 MCG TABLET PO SCH (08:34)
[2022-06-30] MEDS: busPIRone 15 MG TAB PO SCH ×2 (08:35→13:41)
[2022-06-30] MEDS: ESCITALOPRAM OXALATE 20 MG TAB PO SCH (08:35)
[2022-06-30] MEDS: GABAPENTIN 100 MG CAP PO SCH ×2 (08:36→12:02)
[2022-06-30] MEDS: RIVAROXABAN 20 MG TAB PO SCH (08:36)
[2022-06-30] MEDS: FAMOTIDINE 20 MG TAB PO SCH (08:36)
[2022-06-30] MEDS: FOLIC ACID 1 MG TAB PO SCH (08:36)
[2022-06-30] MEDS: THIAMINE HCL 100 MG TAB PO SCH (08:36)
[2022-06-30] MEDS: FERROUS SULFATE 325 MG TAB PO SCH (08:37)
[2022-06-30] MEDS: PANTOprazole 40 MG TAB PO SCH (08:37)
[2022-06-30] MEDS: NICOTINE 21 MG/24 HR TDSY TD SCH (08:37)
[2022-06-30] MEDS: INSULIN ASPART PER UNIT SC SCH ×2 (08:45→12:50)
[2022-06-30] MEDS: CHOLESTYRAMINE LIGHT 4 GM PKT PO SCH (09:59)
[2022-06-30] MEDS ORDERED: cephALEXin 500 MG CAP PO SCH (12:15)
--- NOTE | 2022-06-30 13:21 | Discharge Summary ---
Date of Service June 30, 2022 Admission HPI Per Admitting Provider 66-year-old female discharged from [facility] on June 21 after admission for enterocolitis. The patient had extensive work-up without infectious etiologies. Patient was doing well at home until today the day of admission. She began feeling nauseous and then began vomiting she presented to the emergency department. She also notes that she is been having increasing urination with some dysuria and she has had loose bowel movements after her vomiting ensued. She continues to have loose bowel movements here in the emergency department. Patient had multiple episodes of vomiting she has been unable to keep down any oral intake. She had used multiple antiemetics because she cannot keep down oral medications to treat a suspected urinary tract infection she is recommended for admission. Given her previous admission with enterocolitis and the fact that her symptoms are is recurred I doubt this will be a short stay. Current COVID testing is pending Laboratories are with a leukocytosis of 19 other electrolytes are within normal limits with exception of magnesium and slightly low Principal Diagnosis Nausea, vomiting, diarrheaetiology not certain Discharge Exam Constitutional and general: No acute distress, looks biologic age Head and face: No puffiness, atraumatic Eyes: No scleral icterus, extraocular movements normal Neck: Supple, no JVD Musculoskeletal: No acute joint swelling, no bony abnormalities Skin/dermatologic/integument: No rash, no purpura Hematologic and lymphatic: pallor +, no petechia Gastrointestinal/abdomen: Nondistended, soft, nonacute Neurologic: Cranial nerves intact, nonfocal Psychiatry: Awake, alert, pleasant, communicative Cardiovascular: Heart rhythm regular, no rub, no murmur, no gallop Respiratory: Chest movements equal, no use of accessory muscles, no adventitious sounds Extremities: No edema, no cyanosis Vital Signs Temp Pulse Resp BP BP Pulse Ox O2 Del Method 06/30/22 08:00 Room Air 06/30/22 08:22 36.8 C 62 16 94/64 L 90 Room Air 06/29/22 23:00 36.7 C 69 18 89/55 L 92/60 L 92 Room Air 06/29/22 15:25 36.8 C 70 16 96/65 L 93 Room Air Intake and Output 06/29/22 06/30/22 06/30/22 22:59 06:59 14:59 Intake Total 70 / 545 375 / 545 Balance 70 / 545 375 / 545 Intake: IV 70 / 170 cefTRIAXone SODIUM 2,000 mg In 70 / 70 Dextrose 5% 50 ml @ 140 mls/hr IV Q24H [facility] Rx#:[id number] Oral 375 / 375 Other: # Unmeasured Voids 1 Weight 108.5 kg Discharge Data Allergies Allergy/AdvReac Type Severity Reaction Status Date / Time egg AdvReac Severe Vomiting Verified 06/27/22 17:22 Penicillins AdvReac Severe Vomiting Verified 06/27/22 17:22 Consultations 06/27/22 18:06 ED Decision to Admit Stat Ordered Studies 06/27/22 15:05 CT Abd and Pelvis [CT abd pelvis wo con] Stat Hospital Course (1) Nausea, vomiting, and diarrhea: Patient with recurrent intractable nausea and vomiting and diarrhea at presentation; resolved and wants to go home; Reglan contraindicated due to interactions; stool Calprotectin from last time does not seem impressive though slightly elevatedoutpatient GI follow-up (seen by them last time) (2) Hypothyroid: Continue thyroid medication (3) History of pulmonary embolism: Xarelto continued (4) Schizoaffective disorder: Patient remains on Depakote. Levels were checked last hospital stay. Noted initial note of decreasing Seroquel dose but did not find same in prescription history or last discharge summary; I did change the dose to 300 mg at discharge and outpatient psychiatry follow-up; continue other meds (5) Diabetes: Education provided; meter and supplies for checking provided (6) UTI (urinary tract infection): Complete 5 days of beta-lactam Plan She declines home therapy or home health, declines rehab; Nursing transiently thought was lethargic but when I talked to her very perked up; see therapy notes; whatever worth, I did decrease Seroquel dose; also noted low side asymptomatic blood pressure, consistent with prior pattern; at present, she wants to go home and I did not prevent on account of either of these issues. Mild anemia can be followed and should have magnesium rechecked along with BMP as outpatient Total Time Total Time Spent Total Time Spent (In Minutes): 32 Discharge Plan Discharge Items Patient Disposition: Home - Self-Care Reason For Visit: UTI POA, ENTERITIS Discharge Diagnosis: Nausea, vomiting, diarrheauncertain etiology Activity: Resume your previous activity Non-emergency contact: Primary Care Provider Call non-emergency contact if: your symptoms worsen Follow-up/Referrals: Nilo Allen MD [Physician] - (stool calprotectin recommended by GI resulted; seen by you in house, recommend follow-up ) Sindi Stout MD [Physician] - (Schizoaffective disorder) Dylan Fuentes PA-C [Primary Care Provider] - Diet: Carb Consistent or DM2 and Low Fiber Addtl Attending Provider Instructions: Please follow-up with your primary care doctor in about 1 week; please adhere to diabetic management instructions; Your Seroquel (also known as quetiapine) dose has been reducedplease take new dose and disregard prior dose and discard prior medication bottle of Seroquel to avoid confusion Pending Studies at Discharge: No Stand-Alone Forms: My [facility], Smoking Cessation Medications and DC Order Prescriptions: New cephalexin 500 mg Capsule 500 mg PO BID Qty: 5 0RF quetiapine [Seroquel XR] 300 mg tablet extended release 24 hr 300 mg PO HS Qty: 30 0RF Rx Instructions: New dose of this medication, do not take prior dose Continued pantoprazole [Protonix] 40 mg tablet,delayed release (DR/EC) 40 mg PO QAM buspirone 15 mg tablet 15 mg PO TID Creon 12,000-38,000 -60,000 unit capsule,delayed release(DR/EC) 1 cap PO TID Xarelto 20 mg tablet 20 mg PO QAM ropinirole 0.5 mg tablet 0.5 mg PO HS escitalopram oxalate [Lexapro] 20 mg tablet 20 mg PO QAM levothyroxine 50 mcg tablet 50 mcg PO QAM famotidine 20 mg tablet 20 mg PO DAILY nicotine [Nicoderm CQ] 21 mg/24 hr Patch 24 Hour 21 mg transdermal QAM Qty: 14 0RF gabapentin 100 mg Capsule 100 mg PO .per instructions Qty: 90 0RF Rx Instructions: 100 mg at 0900 and 1200, 200 mg at bedtime. folic acid 1 mg Tablet 1 mg PO QAM Qty: 30 0RF cholestyramine (with sugar) [Questran] 4 gram powder in packet 2 ea PO DAILY Qty: 0 0RF clonazepam 1 mg tablet 1 mg PO TID PRN (Reason: Anxiety) nystatin [Nystop] 100,000 unit/gram Powder 1 applic EXT TID 7 Days Qty: 30 0RF Rx Instructions: apply to rash in groin and/or buttocks region - three times daily x 7 days glipizide 5 mg tablet 5 mg PO BID Qty: 60 1RF ferrous sulfate [Iron (ferrous sulfate)] 325 mg (65 mg iron) tablet 325 mg PO Q OTHER DAY divalproex [Depakote ER] 500 mg tablet extended release 24 hr 1,500 mg PO HS cyanocobalamin (vitamin B-12) [Vitamin B-12] 1,000 mcg tablet 1,000 mcg PO BID loratadine [Allergy Relief (loratadine)] 10 mg tablet 10 mg PO QAM thiamine HCl (vitamin B1) [Vitamin B-1] 100 mg tablet 100 mg PO BID ondansetron HCl 4 mg tablet 4 mg PO Q8 PRN (Reason: Nausea And Vomiting) magnesium oxide 400 mg (241.3 mg magnesium) Tablet 400 mg PO BID Qty: 60 0RF Discontinued quetiapine [Seroquel] 400 mg tablet 400 mg PO HS Discharge Orders: Discharge Order (Routine); Ordered 06/30/22 Ordered By: Cristofer Bloom Admission Data Admit Date/Time: 06/27/22 18:07 Attending Provider: Cristofer Bloom Admit Provider: Helio Leonard Primary Care Provider: Dylan Fuentes Other Providers: Helio Leonard ; Alex De Paz Coding Level of Care Code D/C DAY MANAGEMENT >30 MINS Diagnoses Nausea, vomiting, and diarrhea R11.2; R19.7 Hypothyroid E03.9 History of pulmonary embolism Z86.711 Schizoaffective disorder F25.1 Schizoaffective disorder type: depressive Diabetes E11.9; Z79.4 Diabetes mellitus complication status: without complication Diabetes mellitus senior care insulin use: with senior care use Diabetes mellitus type: type 2 UTI (urinary tract infection) N39.0
== END 2022-06-30 15:11 | disposition home or self-care (01) | DRG 392 ==
LOC: ED 14:12 → 3N 18:07 → SUATTDRO 18:07 → 3N 23:51

== ENCOUNTER 2022-07-24 20:14 | Inpatient (IN) ==
[2022-07-24] MEDS ORDERED: ONDANSETRON INJ 2 MG/ML 2 ML VIAL IV STA (23:07)
[2022-07-24] MEDS: SODIUM CHLORIDE 0.9% 1000ML 1,000 ML IV SCH (23:29)
[2022-07-24 23:54] LABS: Basophils # (auto) 0.04 K/uL (0-0.2); Basophils % (auto) 0.5 %; Eosinophils # (auto) 0.03 K/uL (0-0.50); Eosinophils % (auto) 0.4 %; Hematocrit (blood only) 47.3 % (34.1-44.9); Hemoglobin 16.6 g/dl (12.0-16.0); Immature Granulocytes # (auto) 0.06 K/uL (0.00-0.02); Immature Granulocytes % (auto) 0.8 %; Lymphocytes # (auto) 2.87 K/uL (1.2-3.4); Lymphocytes % (auto) 38.4 %; Mean Corpuscular Hemoglobin 31.5 pg (25.0-34.0); Mean Corpuscular Hgb Conc 35.1 g/dL (32.0-36.0); Mean Corpuscular Volume 89.8 fL (80.0-100.0); Mean Platelet Volume 9.5 fL (9.4-12.3); Monocytes # (auto) 0.14 K/uL (0.24-0.82); Monocytes % (auto) 1.9 %; Neutrophils # (auto) 4.33 K/uL (1.4-6.5); Platelet Count 261 K/uL (130-400); RDW Coefficient of Variation 13.3 % (11.5-14.5); RDW Standard Deviation 43.7 fL (36.4-46.3); Red Blood Count 5.27 M/uL (3.93-5.22); White Blood Count 7.47 K/ul (4.8-10.8)
[2022-07-25] LABS: Appearance Urine Turbid (Clear); Bacteria Urine Automated 4+ (Negative); Bilirubin Urine Negative (Negative); Blood Urine 1+ (Negative); Color Urine Yellow; Epithelial Cell Urine Auto >30 /lpf (0-5); Glucose Urine UA Negative (Negative); Ketones Urine Trace (Negative); Leukocyte Esterase Urine 3+ (Negative); Nitrite Urine Positive (Negative); Protein Urine Negative (Negative); RBC Urine Automated >30 /hpf (0-4); Specific Gravity Urine 1.014 (1.000-1.030); Urobilinogen Urine Negative (Negative); WBC Urine Automated >30 /hpf (0-5)
[2022-07-25] MEDS ORDERED: PROCHLORPERAZINE 1 ML IV ONE ×2 (00:10→01:47)
[2022-07-25 00:14] LABS: Alanine Aminotransferase 10 U/L (7-52); Albumin Globulin Ratio 1.1 (0.9-2); Albumin Level 4.1 gm/dl (3.4-5.0); Alkaline Phosphatase 89 U/L (34-104); Anion Gap 9 (3-11); Aspartate Aminotransferase 11 U/L (13-39); BUN Creatinine Ratio 13.7 (10-20); Bilirubin,Total 0.6 mg/dl (0.2-1.0); Blood Urea Nitrogen 10 mg/dl (6-23); Calcium 10.2 mg/dl (8.5-10.1); Carbon Dioxide 26 mmol/L (21-32); Chloride 100 mmol/L (98-107); Est GFR (African American) 100.9 ml/min; Globulin 3.6 gm/dl (2.5-4.0); Glucose 141 mg/dl (70-99(Fasting)); Potassium 4.7 mmol/L (3.5-5.1); Sodium 135 mmol/L (136-145); Total Protein 7.7 gm/dl (6.0-8.3)
[2022-07-25] MEDS ORDERED: cefTRIAXone SODIUM 2,000 MG/70 ML BAG IV STA (00:23)
[2022-07-25] MEDS ORDERED: LORazepam 2 MG/1 ML VIAL IV STA ×2 (00:28→01:47)
--- NOTE | 2022-07-25 00:49 | Emergency Department Note ---
History of Present Illness General Chief complaint: Urinary Symptoms Stated complaint: UTI Time Seen by Provider: 07/24/22 22:13 Source: patient Mode of arrival: ambulatory Limitations: no limitations History of Present Illness Provider complaint: urinary symptoms, nausea and vomiting This is a 66-year-old female presents emergency department complaining of urinary symptoms, nausea and vomiting. Patient states she did have a urinary tract infection 2 weeks ago that was treated. She states symptoms began again today with burning with urination, frequency and urgency. She states this evening then she began having nausea and vomiting. Patient denies any abdominal pain or back pain. She denies fevers or chills. She denies any change in bowel movements. She denies any other change in medications. Denies history of kidney stones or other kidney problems. Pt seen during a time of high acuity and national emergency pandemic while wearing PPE. Home Medications Medication Instructions Recorded Confirmed Type buspirone 15 mg tablet 15 mg PO TID 10/25/20 07/25/22 History [id number]-[id number]-[id number] 1 cap PO TID 10/25/20 07/25/22 History 12,000-38,000-60,000 unit capsule,delayed rel (Creon) pantoprazole 40 mg tablet,delayed 40 mg PO QAM 10/25/20 07/25/22 History release (Protonix) rivaroxaban 20 mg tablet (Xarelto) 20 mg PO QAM 10/25/20 07/25/22 History escitalopram oxalate 20 mg tablet 20 mg PO QAM 03/18/21 07/25/22 History (Lexapro) ropinirole 0.5 mg tablet 0.5 mg PO HS 03/18/21 07/25/22 History divalproex 500 mg tablet,extended 1,500 mg PO HS 06/03/21 07/25/22 History release 24 hr (Depakote ER) ferrous sulfate 325 mg (65 mg 325 mg PO Q OTHER DAY 06/03/21 07/25/22 History iron) tablet (Iron (ferrous sulfate)) cyanocobalamin (vitamin B-12) 1,000 mcg PO BID 08/05/21 07/25/22 History 1,000 mcg tablet (Vitamin B-12) loratadine 10 mg tablet (Allergy 10 mg PO QAM 08/05/21 07/25/22 History Relief (loratadine)) thiamine HCl (vitamin B1) 100 mg 100 mg PO BID 10/11/21 07/25/22 History tablet (Vitamin B-1) levothyroxine 50 mcg tablet 50 mcg PO QAM 01/21/22 07/25/22 History ondansetron HCl 4 mg tablet 4 mg PO Q8 PRN Nausea And Vomiting 02/02/22 07/25/22 History famotidine 20 mg tablet 20 mg PO DAILY 02/25/22 07/25/22 History magnesium oxide 400 mg (241.3 mg 400 mg PO BID #60 tabs 04/07/22 07/25/22 Rx magnesium) tablet folic acid 1 mg tablet 1 mg PO QAM #30 tabs 04/14/22 07/25/22 Rx clonazepam 1 mg tablet 1 mg PO TID PRN Anxiety 06/16/22 07/25/22 History glipizide 5 mg tablet 5 mg PO BID #60 tabs 06/21/22 07/25/22 Rx benztropine 0.5 mg tablet 0.5 mg PO BID 07/25/22 07/25/22 History cholestyramine (with sugar) 4 gram 1 ea PO BID 07/25/22 07/25/22 History powder for susp in a packet (Questran) gabapentin 100 mg capsule 100 mg PO UD 07/25/22 07/25/22 History metformin 500 mg tablet 500 mg PO BID 07/25/22 07/25/22 History quetiapine 400 mg tablet 400 mg PO HS 07/25/22 07/25/22 History Allergies Allergy/AdvReac Type Severity Reaction Status Date / Time egg AdvReac Severe Vomiting Verified 07/25/22 02:16 Penicillins AdvReac Severe Vomiting Verified 07/25/22 02:16 Past Med/Surg History Medical History (Updated 07/25/22 @ 04:01 by Phong Marie MD) Acute hyponatremia Anemia Anxiety and depression Arthritis Aspiration pneumonia Chronic diarrhea Diabetes Folate deficiency GERD (gastroesophageal reflux disease) History of pulmonary embolism Hyperparathyroidism Hypomagnesemia Hypothyroid Hypoxia Iron deficiency anemia Irritable bowel syndrome Nausea & vomiting Restless leg Schizoaffective disorder Smoking Vomiting and diarrhea Weakness Surgical History History of section x2 Family History Denies family history of Inflammatory bowel disease Social History Smoking Status: Current every day smoker Tobacco Type: Cigarettes Cigarettes Per Day: 2-3 packs; Second Hand Exposure: No; Hx Alcohol Use: No Hx Substance Use: No Preferred Language: Faroese Communication Ability: Effective Distribution Clerk Required: No Beliefs That Will Affect Care: None marital status: Current Living Situation: Other Current Living Situation Comment: pt daughter lives with her How many Children do You have: 2 Feels Safe at Home: Yes Assistive Devices: Walker Review of Systems A total of 10 systems reviewed and were otherwise negative All systems reviewed & are unremarkable except as noted in HPI & below Physical Exam Vital Signs Vital Signs - 24 hr 07/25/22 03:00 Pulse Rate [Right] 96 H Respiratory Rate 20 Respiratory Effort / Characteristics Non-Labored Respiratory Depth Normal Blood Pressure [Right Arm] 144/82 H Blood Pressure Mean [Right Arm] 102 GENERAL: alert, unwell appearing, well nourished, no distress, non-toxic EYE EXAM: normal conjunctiva, PERRL and EOM's grossly intact OROPHARYNX: no exudate, no erythema, lips, buccal mucosa, and tongue normal and mucous membranes are moist, poor dentition NECK: supple, no nuchal rigidity, no adenopathy, non-tender LUNGS: Clear to auscultation. Normal chest wall mechanics, no w/r/r HEART: no murmurs, S1 normal and S2 normal ABDOMEN: abdomen soft, non-tender, normo-active bowel sounds, no masses, no rebound or guarding. BACK: Back is symmetrical on inspection and there is no deformity, no midline tenderness, no CVA tenderness. SKIN: no rashes and no bruising UPPER EXTREMITIES: upper extremities are grossly normal. FROM, nml pulses b/l. LOWER EXTREMITIES: No pitting edema. FROM, nml pulses b/l. NEURO EXAM: Normal sensorium, cranial nerves II-XII grossly intact, normal speech, no gross weakness of arms, no gross weakness of legs. Gross sensation intact. Course Course 0140: Pt still with vomiting. Administered Medications Acetaminophen (Acetaminophen 325 Mg Tab) 650 mg PO Q4H PRN PRN Reason: pain or fever Stop: 08/24/22 19:30 Last Admin: 07/25/22 19:43 Dose: 650 mg Documented By: KELSEY Lipase/Protease/Amylase (Pancreaze (Lipase 4,200u) Cap) 3 cap PO TIDM MARY Stop: 08/24/22 07:59 Last Admin: 07/25/22 17:01 Dose: 3 cap Documented By: Admin: 07/25/22 13:34 Dose: 3 cap Documented By: Admin: 07/25/22 08:34 Dose: 3 cap Documented By: TMG Benztropine Mesylate (Benztropine Mesylate 0.5 Mg Tab) 0.5 mg PO BID MARY Stop: 08/24/22 08:59 Last Admin: 07/25/22 20:45 Dose: 0.5 mg Documented By: Admin: 07/25/22 08:34 Dose: 0.5 mg Documented By: TMG Buspirone HCl (Buspirone 15 Mg Tab) 15 mg PO TID MARY Stop: 08/24/22 08:59 Last Admin: 07/25/22 20:45 Dose: 15 mg Documented By: Admin: 07/25/22 13:34 Dose: 15 mg Documented By: Admin: 07/25/22 08:36 Dose: 15 mg Documented By: TMG Cholestyramine Resin (Cholestyramine Light 4 Gm Pkt) 4 gm PO BID@1000,2200 MARY Stop: 08/24/22 09:59 Last Admin: 07/25/22 22:00 Dose: 4 gm Documented By: Admin: 07/25/22 09:48 Dose: 4 gm Documented By: ANA Clonazepam (Clonazepam 1 Mg Tab) 1 mg PO TID PRN PRN Reason: Anxiety Stop: 08/24/22 05:26 Last Admin: 07/25/22 20:43 Dose: 1 mg Documented By: Admin: 07/25/22 08:45 Dose: 1 mg Documented By: TMG Cyanocobalamin (Cyanocobalamin (B-12) 500 Mcg Tablet) 1,000 mcg PO BID MARY Stop: 08/24/22 08:59 Last Admin: 07/25/22 20:45 Dose: 1,000 mcg Documented By: Admin: 07/25/22 08:34 Dose: 1,000 mcg Documented By: TMG Divalproex Sodium (Divalproex Extended Release 500 Mg Tab) 1,500 mg PO HS MARY Stop: 08/24/22 20:59 Last Admin: 07/25/22 20:46 Dose: 1,500 mg Documented By: CLC Escitalopram Oxalate (Escitalopram Oxalate 20 Mg Tab) 20 mg PO QAM MARY Stop: 08/24/22 08:59 Last Admin: 07/25/22 08:34 Dose: 20 mg Documented By: TMG Famotidine (Famotidine 20 Mg Tab) 20 mg PO DAILY MARY Stop: 08/24/22 08:59 Last Admin: 07/25/22 08:36 Dose: 20 mg Documented By: TMG Ferrous Sulfate (Ferrous Sulfate 325 Mg Tab) 325 mg PO Q48H MARY Stop: 08/24/22 08:59 Last Admin: 07/25/22 08:35 Dose: 325 mg Documented By: TMG Folic Acid (Folic Acid 1 Mg Tab) 1 mg PO QAM MARY Stop: 08/24/22 08:59 Last Admin: 07/25/22 08:34 Dose: 1 mg Documented By: MANSOOR Sodium Chloride (Nss 1000ml) 1,000 mls @ 80 mls/hr IV .[id number] MARY Stop: 08/24/22 05:26 Last Infusion: 07/25/22 22:43 Dose: 80 mls/hr Documented By: Infusion: 07/25/22 22:02 Dose: 0 mls/hr Documented By: Admin: 07/25/22 18:02 Dose: 80 mls/hr Documented By: Infusion: 07/25/22 18:02 Dose: 80 mls/hr Documented By: Admin: 07/25/22 06:26 Dose: 80 mls/hr Documented By: KELSEY Insulin Aspart (Insulin Aspart Per Unit) 0 units SC ACHS MARY Stop: 08/24/22 07:29 Last Admin: 07/25/22 20:42 Dose: 2 units Documented By: KELSEY Co-signed By: STERLING Admin: 07/25/22 17:43 Dose: Not Given Documented By: Admin: 07/25/22 12:46 Dose: Not Given Documented By: Admin: 07/25/22 09:48 Dose: 1 units Documented By: ANA Co-signed By: MANSOOR Levothyroxine Sodium (Levothyroxine Sodium 50 Mcg Tablet) 50 mcg PO DAILYBB MARY Stop: 08/24/22 06:29 Last Admin: 07/25/22 06:45 Dose: 50 mcg Documented By: CLC Loratadine (Loratadine 10 Mg Tab) 10 mg PO QAM [facility] Stop: 08/24/22 08:59 Last Admin: 07/25/22 08:36 Dose: 10 mg Documented By: TMG Magnesium Oxide (Magnesium Oxide 400 Mg Tab) 400 mg PO BID MARY Stop: 08/24/22 08:59 Last Admin: 07/25/22 20:46 Dose: 400 mg Documented By: Admin: 07/25/22 08:35 Dose: 400 mg Documented By: TMG Nystatin (Nystatin Cr 15 Gm Tube) 1 appln EXT QSHIFT [facility] Stop: 08/25/22 00:00 Last Admin: 07/25/22 23:36 Dose: 1 appln Documented By: CLC Pantoprazole Sodium (Pantoprazole 40 Mg Tab) [facility] Stop: 08/24/22 08:59 Last Admin: 07/25/22 08:33 Dose: 40 mg Documented By: TMG Quetiapine Fumarate (Quetiapine Fumarate 200 Mg Tab) 400 mg PO [facility] Stop: 08/24/22 20:59 Last Admin: 07/25/22 20:46 Dose: 400 mg Documented By: CLC Rivaroxaban (Rivaroxaban 20 Mg Tab) 20 mg PO DAILY@0730 [facility] Stop: 08/24/22 07:29 Last Admin: 07/25/22 09:31 Dose: 20 mg Documented By: DMB Ropinirole HCl (Ropinirole Hcl 0.25 Mg Tablet) 0.5 mg PO [facility] Stop: 08/24/22 20:59 Last Admin: 07/25/22 20:47 Dose: 0.5 mg Documented By: CLC Thiamine HCl (Thiamine Hcl 100 Mg Tab) 100 mg PO BID [facility] Stop: 08/24/22 08:59 Last Admin: 07/25/22 20:47 Dose: 100 mg Documented By: Admin: 07/25/22 08:35 Dose: 100 mg Documented By: TMG Discontinued Medications Sodium Chloride (Nss 1000ml) 1,000 mls @ 250 mls/hr IV .Q4H [facility] Stop: 08/23/22 23:14 Last Admin: 07/25/22 06:33 Dose: Not Given Documented By: Infusion: 07/25/22 04:12 Dose: 0 mls/hr Documented By: Admin: 07/24/22 23:29 Dose: 250 mls/hr Documented By: HITESH Prochlorperazine (Compazine) 1 mls @ 1 mls/min IV ONE ONE Stop: 07/25/22 00:11 Last Admin: 07/25/22 00:18 Dose: 1 mls/min Documented By: MICHEL Ceftriaxone Sodium (Rocephin) 2,000 mg in 70 mls @ 140 mls/hr IV NOW STA Stop: 07/25/22 00:52 Last Infusion: 07/25/22 04:12 Dose: 0 mls/hr Documented By: Admin: 07/25/22 02:55 Dose: 140 mls/hr Documented By: HITESH Prochlorperazine (Compazine) 1 mls @ 1 mls/min IV ONE ONE Stop: 07/25/22 01:48 Last Admin: 07/25/22 02:28 Dose: 1 mls/min Documented By: HITESH Ibuprofen (Ibuprofen 600 Mg Tab) 600 mg PO NOW STA Stop: 07/25/22 20:38 Last Admin: 07/25/22 20:43 Dose: 600 mg Documented By: KELSEY Ioversol (Optiray 300 100ml) 93 ml IV ONCE ONE Stop: 07/25/22 01:33 Last Admin: 07/25/22 01:33 Dose: 93 ml Documented By: YONY Lorazepam (Lorazepam 2 Mg/1 Ml Vial) 0.5 mg IV NOW STA; Protocol Stop: 07/25/22 00:29 Last Admin: 07/25/22 01:04 Dose: 0.5 mg Documented By: MICHEL Lorazepam (Lorazepam 2 Mg/1 Ml Vial) 0.5 mg IV NOW STA; Protocol Stop: 07/25/22 01:48 Last Admin: 07/25/22 02:29 Dose: 0.5 mg Documented By: HITESH Miscellaneous Information (Dc All Previously Ordered Diabetes Meds) 1 each N/A ONE ONE Stop: 07/25/22 05:28 Last Admin: 07/25/22 09:42 Dose: 1 each Documented By: ANA Ondansetron HCl (Ondansetron Inj 2 Mg/Ml 2 Ml Vial) 4 mg IV NOW STA Stop: 07/24/22 23:08 Last Admin: 07/24/22 23:13 Dose: 4 mg Documented By: HITESH Medical Decision Making Differential Diagnosis Differential: UTI, Urethritis, Pyelonephritis, STI, Herpetic, Vaginitis, Hyperglycemia, Yeast, PID, Hemorrhagic Cystitis, amongst other pathologies entertained. Medical Records Attestation: I reviewed the patient's medical records. Home Medications Current Medication List: was personally reviewed by me Laboratory Data Attestation: I reviewed the patient's lab results. Result diagrams: 07/24/22 23:15 07/24/22 23:15 Lab Results 07/24/22 07/24/22 07/24/22 Range/Units 23:15 23:15 23:15 WBC 7.47 (4.8-10.8) K/ul RBC 5.27 H (3.93-5.22) M/uL Hgb 16.6 H (12.0-16.0) g/dl Hct 47.3 H (34.1-44.9) % MCV 89.8 (80.0-100.0) fL MCH 31.5 (25.0-34.0) pg MCHC 35.1 (32.0-36.0) g/dL RDW Std Deviation 43.7 (36.4-46.3) fL RDW Coeff of [place] 13.3 (11.5-14.5) % Plt Count 261 (130-400) K/uL MPV 9.5 (9.4-12.3) fL Immature Gran % (Auto) 0.8 % Neut % (Auto) 58.0 % Lymph % (Auto) 38.4 % [place] % (Auto) 1.9 % Eos % (Auto) 0.4 % Baso % (Auto) 0.5 % Neut # (Auto) 4.33 (1.4-6.5) K/uL Lymph # (Auto) 2.87 (1.2-3.4) K/uL [place] # (Auto) 0.14 L (0.24-0.82) K/uL Eos # (Auto) 0.03 (0-0.50) K/uL Baso # (Auto) 0.04 (0-0.2) K/uL Immature Gran # (Auto) 0.06 H (0.00-0.02) K/uL Sodium 135 L (136-145) mmol/L Potassium 4.7 (3.5-5.1) mmol/L Chloride 100 (98-107) mmol/L Carbon Dioxide 26 (21-32) mmol/L Anion Gap 9 (3-11) BUN 10 (6-23) mg/dl Creatinine 0.73 (0.6-1.2) mg/dl Est Cr Clr Drug Dosing Not Reportable Est GFR ( Amer) 100.9 ml/min Est GFR (Non-Af Amer) 87.0 ml/min BUN/Creatinine Ratio 13.7 (10-20) Glucose 141 H (70-99(Fasting)) mg/dl Calcium 10.2 H (8.5-10.1) mg/dl Total Bilirubin 0.6 (0.2-1.0) mg/dl AST 11 L (13-39) U/L ALT 10 (7-52) U/L Alkaline Phosphatase 89 (34-104) U/L C-Reactive Protein (0-0.5) mg/dl Total Protein 7.7 (6.0-8.3) gm/dl Albumin 4.1 (3.4-5.0) gm/dl Globulin 3.6 (2.5-4.0) gm/dl Albumin/Globulin Ratio 1.1 (0.9-2) Procalcitonin (0-0.5) ng/ml Urine Color Yellow Urine Appearance Turbid A (Clear) Urine pH 6.0 (4.5-7.5) Ur Specific [place] 1.014 (1.000-1.030) Urine Protein Negative (Negative) Urine Glucose (UA) Negative (Negative) Urine Ketones Trace H (Negative) Urine Blood 1+ H (Negative) Urine Nitrite Positive A (Negative) Urine Bilirubin Negative (Negative) Urine Urobilinogen Negative (Negative) Ur Leukocyte Esterase 3+ H (Negative) Urine WBC (Auto) >30 H (0-5) /hpf Urine RBC (Auto) >30 H (0-4) /hpf U Hyaline Cast (Auto) 1-5 (0-5) /lpf U Epithel Cells (Auto) >30 H (0-5) /lpf Urine Bacteria (Auto) 4+ H (Negative) Urine Opiates Screen (Neg) Ur Methadone, Qual (Neg) Urine Barbiturates (Neg) Ur Phencyclidine (PCP) (Neg) U Amphetamin/Meth Scrn (Neg) MDMA (Ecstasy) Screen (Neg) U Benzodiazepines Scrn (Neg) Ur Cocaine Metabolite (Neg) U Marijuana (THC) Screen (Neg) SARS-CoV-2, RNA, NAAT (NEGATIVE) 07/24/22 07/24/22 07/24/22 Range/Units 23:15 23:15 23:15 WBC (4.8-10.8) K/ul RBC (3.93-5.22) M/uL Hgb (12.0-16.0) g/dl Hct (34.1-44.9) % MCV (80.0-100.0) fL MCH (25.0-34.0) pg MCHC (32.0-36.0) g/dL RDW Std Deviation (36.4-46.3) fL RDW Coeff of [place] (11.5-14.5) % Plt Count (130-400) K/uL MPV (9.4-12.3) fL Immature Gran % (Auto) % Neut % (Auto) % Lymph % (Auto) % [place] % (Auto) % Eos % (Auto) % Baso % (Auto) % Neut # (Auto) (1.4-6.5) K/uL Lymph # (Auto) (1.2-3.4) K/uL [place] # (Auto) (0.24-0.82) K/uL Eos # (Auto) (0-0.50) K/uL Baso # (Auto) (0-0.2) K/uL Immature Gran # (Auto) (0.00-0.02) K/uL Sodium (136-145) mmol/L Potassium (3.5-5.1) mmol/L Chloride (98-107) mmol/L Carbon Dioxide (21-32) mmol/L Anion Gap (3-11) BUN (6-23) mg/dl Creatinine (0.6-1.2) mg/dl Est Cr Clr Drug Dosing Est GFR ( Amer) ml/min Est GFR (Non-Af Amer) ml/min BUN/Creatinine Ratio (10-20) Glucose (70-99(Fasting)) mg/dl Calcium (8.5-10.1) mg/dl Total Bilirubin (0.2-1.0) mg/dl AST (13-39) U/L ALT (7-52) U/L Alkaline Phosphatase (34-104) U/L C-Reactive Protein < 0.50 (0-0.5) mg/dl Total Protein (6.0-8.3) gm/dl Albumin (3.4-5.0) gm/dl Globulin (2.5-4.0) gm/dl Albumin/Globulin Ratio (0.9-2) Procalcitonin < 0.05 (0-0.5) ng/ml Urine Color Urine Appearance (Clear) Urine pH (4.5-7.5) Ur Specific [place] (1.000-1.030) Urine Protein (Negative) Urine Glucose (UA) (Negative) Urine Ketones (Negative) Urine Blood (Negative) Urine Nitrite (Negative) Urine Bilirubin (Negative) Urine Urobilinogen (Negative) Ur Leukocyte Esterase (Negative) Urine WBC (Auto) (0-5) /hpf Urine RBC (Auto) (0-4) /hpf U Hyaline Cast (Auto) (0-5) /lpf U Epithel Cells (Auto) (0-5) /lpf Urine Bacteria (Auto) (Negative) Urine Opiates Screen Neg (Neg) Ur Methadone, Qual Neg (Neg) Urine Barbiturates Neg (Neg) Ur Phencyclidine (PCP) Neg (Neg) U Amphetamin/Meth Scrn Neg (Neg) MDMA (Ecstasy) Screen Neg (Neg) U Benzodiazepines Scrn Neg (Neg) Ur Cocaine Metabolite Neg (Neg) U Marijuana (THC) Screen Neg (Neg) SARS-CoV-2, RNA, NAAT (NEGATIVE) 07/25/22 Range/Units 03:30 WBC (4.8-10.8) K/ul RBC (3.93-5.22) M/uL Hgb (12.0-16.0) g/dl Hct (34.1-44.9) % MCV (80.0-100.0) fL MCH (25.0-34.0) pg MCHC (32.0-36.0) g/dL RDW Std Deviation (36.4-46.3) fL RDW Coeff of [place] (11.5-14.5) % Plt Count (130-400) K/uL MPV (9.4-12.3) fL Immature Gran % (Auto) % Neut % (Auto) % Lymph % (Auto) % [place] % (Auto) % Eos % (Auto) % Baso % (Auto) % Neut # (Auto) (1.4-6.5) K/uL Lymph # (Auto) (1.2-3.4) K/uL [place] # (Auto) (0.24-0.82) K/uL Eos # (Auto) (0-0.50) K/uL Baso # (Auto) (0-0.2) K/uL Immature Gran # (Auto) (0.00-0.02) K/uL Sodium (136-145) mmol/L Potassium (3.5-5.1) mmol/L Chloride (98-107) mmol/L Carbon Dioxide (21-32) mmol/L Anion Gap (3-11) BUN (6-23) mg/dl Creatinine (0.6-1.2) mg/dl Est Cr Clr Drug Dosing Est GFR ( Amer) ml/min Est GFR (Non-Af Amer) ml/min BUN/Creatinine Ratio (10-20) Glucose (70-99(Fasting)) mg/dl Calcium (8.5-10.1) mg/dl Total Bilirubin (0.2-1.0) mg/dl AST (13-39) U/L ALT (7-52) U/L Alkaline Phosphatase (34-104) U/L C-Reactive Protein (0-0.5) mg/dl Total Protein (6.0-8.3) gm/dl Albumin (3.4-5.0) gm/dl Globulin (2.5-4.0) gm/dl Albumin/Globulin Ratio (0.9-2) Procalcitonin (0-0.5) ng/ml Urine Color Urine Appearance (Clear) Urine pH (4.5-7.5) Ur Specific [place] (1.000-1.030) Urine Protein (Negative) Urine Glucose (UA) (Negative) Urine Ketones (Negative) Urine Blood (Negative) Urine Nitrite (Negative) Urine Bilirubin (Negative) Urine Urobilinogen (Negative) Ur Leukocyte Esterase (Negative) Urine WBC (Auto) (0-5) /hpf Urine RBC (Auto) (0-4) /hpf U Hyaline Cast (Auto) (0-5) /lpf U Epithel Cells (Auto) (0-5) /lpf Urine Bacteria (Auto) (Negative) Urine Opiates Screen (Neg) Ur Methadone, Qual (Neg) Urine Barbiturates (Neg) Ur Phencyclidine (PCP) (Neg) U Amphetamin/Meth Scrn (Neg) MDMA (Ecstasy) Screen (Neg) U Benzodiazepines Scrn (Neg) Ur Cocaine Metabolite (Neg) U Marijuana (THC) Screen (Neg) SARS-CoV-2, RNA, NAAT NEGATIVE (NEGATIVE) Imaging Data Radiologist's Impression: CT abdomen pelvis with contrast: The study is limited secondary to motion artifact. There is fluid throughout the colon concerning for diarrheal illness. Hepatic steatosis. Status postcholecystectomy. The common bile duct is prominent without evidence of obstructing lesion. No evidence of pancreatitis. No evidence of hydronephrosis urinary calculi. No evidence of appendicitis. No evidence of free air, free fluid or colitis. Status post hysterectomy. Comparison made to prior CT scan of abdomen pelvis from June 27, 2022. Radiologist: Gem Sauer MD MDM Narrative An order was placed for continuous cardiac monitoring. The monitor shows a rate of _92_ with _normal sinus_ rhythm. This is a 66-year-old female who presents due to concern for recurrent UTI which she has had previously. Patient actively vomiting in route for EMS and on a rrival here. Patient was given several medications for nausea and vomiting was given IV fluids. Patient's urinalysis was highly suggestive of UTI, and based on prior culture patient started on IV antibiotics. Due to recurrence of vomiting patient was sent for CT imaging to rule out pyelonephritis/ascending UTI or other obstructive uropathy. No evidence of YANA. Due to persistent vomiting, case discussed with hospitalist for additional evaluation and management. Impression & Plan Nausea & vomiting, UTI (urinary tract infection) Discharge Plan Visit Data Chief Complaint: Urinary Symptoms Stated Complaint: UTI ED Provider: Zandra Avelar Discharge Problem: Nausea & vomiting, UTI (urinary tract infection) Patient Disposition: Admitted As Inpatient Discharge Instructions Interventions: ED Discharge Assessment Last Done: 07/25/22 05:11
[2022-07-25] MEDS ORDERED: OPTIRAY 300 100mL IV ONE (01:32)
--- NOTE | 2022-07-25 02:20 | History & Physical Report ---
Date of Service July 25, 2022 Assessment & Plan (1) UTI (urinary tract infection): Plan: This is a 66-year-old female with a history of hyperparathyroidism, history of PE, IBS, anxiety, depression, schizoaffective disorder, GERD, T2DM, chronic enterocolitis of unknown origin who presented to [facility] for evaluation of urinary symptoms and nausea, likely secondary to a urinary tract infection. Patient somnolent on my time of exam and a reliable medication reconciliation was unable to be completed ; reviewed RX from last admission for reference. This will need confirmed when mentation has improved Urinary Tract Infection - Urinary symptoms and UA c/w UTI - Send urine for culture; patient has frequent healthcare contact - Prior cultures demonstrating mostly E. coli w/ resistance to ampicillin, ciprofloxacin, and single culture of pansensitive Proteus - CFTX for now - 2g q24h given wt >60kg - de-escalate when appropriate - Check blood cultures and procal given +AMS upon my time of exam (though this may be d/t Ativan) - Diabetes control as below (2) Nausea & vomiting: Plan: GI Upset - Nausea, Vomiting - Patient reported developing n/v on night of admission in context of UTI -- denied diarrhea - CT-A/P (STAT-Rad) revealing of: "There is fluid throughout the colon concerning for a diarrheal illness." - Patient with recurrent bouts of n/v noted on admission in March/Jun 2022; negative infectious, inflammatory w/u per chart review - Suspect this bout is d/t UTI based on other HPI - though difficult to gain additional history with AMS at time of admission - Check UDS given AMS and recurrent n/v - Continue IVF for now, replete lytes PRN (3) Altered mental status: Plan: Altered Mental Status - Not present on arrival. Developed after receiving total of Ativan 1mg and prochlorperazine in the ED - Check blood cultures, procal, UDS as above - Suspect secondary to sedating effects of medications above though favor ruling out secondary w/u as above - Low-threshold for CT-H if any FNDs develop or worsens into the AM - Monitor on MS/T. Fall precautions. (4) History of pulmonary embolism: Plan: History of PE - Continue Xarelto (5) Diabetes: Plan: Type 2 Diabetes Mellitus - Last A1c 9.4% in 03/2022. - Check A1c - Hold glyburide - SSI w/ CF 25; titrate as needed, consider addition of basal insulin (6) GERD (gastroesophageal reflux disease): Plan: GERD - Continue PPI (7) Schizoaffective disorder: Plan: Anxiety/depression/schizoaffective disorder - Continue home BuSpar, escitalopram, quetiapine, divalproex - Hold Klonopin with w/u for ongoing AMS (8) Restless leg: Plan: Restless leg syndrome - Continue ropinirole HS Plan Code: Full code - unable to have meaningful conversation with patient given AMS (kept dosing off during questioning); every admission up to this point has been FULL CODE. Will need to be revisited. Diet: CC when safe. Aspiration precautions PPX: Continue home Xarelto Dispo: MS/T History of Present Illness Primary Care Provider: Dylan Fuentes PA-C This is a 66-year-old female with a history of hyperparathyroidism, history of PE, IBS, anxiety, depression, schizoaffective disorder, GERD, T2DM, chronic enterocolitis of unknown origin who presented to [facility] for evaluation of urinary symptoms and nausea. Patient recently received medication causing sedation prior to my arrival; unable to obtain reliable history from patient. Patient was recently treated as an outpatient for a UTI with subsequent resolution of her symptoms; this was approximately 2 weeks ago. Over the last several days, she began developing new urinary symptomsinclusive of frequency, urgency, and dysuria. This subsequently evolved into nausea with vomiting this evening. She denies pain elsewhere. No JOHNSON. No diarrhea. Of note, patient has had several recent admissions for intractable nausea and vomiting that previously responded to Reglan, however had to be discontinued due to significant medication interactions. In the ED, patient was alert on arrival and found to have a CBC remarkable only for a hemoglobin 16.6. Mild monocytopenia. BMP revealing of calcium 10.2. Urine studies reveal turbid appearance with trace blood, positive nitrates, leuk esterase, over 30 white blood cells and red blood cells, 4+ bacteria in the setting of over 30 epithelial cells. Contrast-enhanced CT of the abdomen and pelvis, stat rad, revealing of: " The study is limited secondary to motion artifact. There is fluid throughout the colon concerning for a diarrheal illness. Hepatic steatosis. Status post cholecystectomy. The common bile duct is prominent without evidence of obstructing lesion. No evidence of pancreatitis. No evidence of hydronephrosis or urinary calculi. No evidence of appendicitis. No evidence of free air, free fluid or colitis. Status post hysterectomy." She was given Zofran, 1 L NSS, prochlorperazine, lorazepam. Allergies Allergy/AdvReac Type Severity Reaction Status Date / Time egg AdvReac Severe Vomiting Verified 07/25/22 02:16 Penicillins AdvReac Severe Vomiting Verified 07/25/22 02:16 Home Medications Medication Instructions Recorded Confirmed Type buspirone 15 mg tablet 15 mg PO TID 10/25/20 07/25/22 History codrdo-wejnumeb-tezlwgn 1 cap PO TID 10/25/20 07/25/22 History 12,000-38,000-60,000 unit capsule,delayed rel (Creon) pantoprazole 40 mg tablet,delayed 40 mg PO QAM 10/25/20 07/25/22 History release (Protonix) rivaroxaban 20 mg tablet (Xarelto) 20 mg PO QAM 10/25/20 07/25/22 History escitalopram oxalate 20 mg tablet 20 mg PO QAM 03/18/21 07/25/22 History (Lexapro) ropinirole 0.5 mg tablet 0.5 mg PO HS 03/18/21 07/25/22 History divalproex 500 mg tablet,extended 1,500 mg PO HS 06/03/21 07/25/22 History release 24 hr (Depakote ER) ferrous sulfate 325 mg (65 mg 325 mg PO Q OTHER DAY 06/03/21 07/25/22 History iron) tablet (Iron (ferrous sulfate)) cyanocobalamin (vitamin B-12) 1,000 mcg PO BID 08/05/21 07/25/22 History 1,000 mcg tablet (Vitamin B-12) loratadine 10 mg tablet (Allergy 10 mg PO QAM 08/05/21 07/25/22 History Relief (loratadine)) thiamine HCl (vitamin B1) 100 mg 100 mg PO BID 10/11/21 07/25/22 History tablet (Vitamin B-1) levothyroxine 50 mcg tablet 50 mcg PO QAM 01/21/22 07/25/22 History ondansetron HCl 4 mg tablet 4 mg PO Q8 PRN Nausea And Vomiting 02/02/22 07/25/22 History famotidine 20 mg tablet 20 mg PO DAILY 02/25/22 07/25/22 History magnesium oxide 400 mg (241.3 mg 400 mg PO BID #60 tabs 04/07/22 07/25/22 Rx magnesium) tablet folic acid 1 mg tablet 1 mg PO QAM #30 tabs 04/14/22 07/25/22 Rx clonazepam 1 mg tablet 1 mg PO TID PRN Anxiety 06/16/22 07/25/22 History glipizide 5 mg tablet 5 mg PO BID #60 tabs 06/21/22 07/25/22 Rx benztropine 0.5 mg tablet 0.5 mg PO BID 07/25/22 07/25/22 History cholestyramine (with sugar) 4 gram 1 ea PO BID 07/25/22 07/25/22 History powder for susp in a packet (Questran) gabapentin 100 mg capsule 100 mg PO UD 07/25/22 07/25/22 History metformin 500 mg tablet 500 mg PO BID 07/25/22 07/25/22 History quetiapine 400 mg tablet 400 mg PO HS 07/25/22 07/25/22 History Past Med/Surg History Medical History (Updated 07/25/22 @ 04:01 by Phong Marie MD) Acute hyponatremia Anemia Anxiety and depression Arthritis Aspiration pneumonia Chronic diarrhea Diabetes Folate deficiency GERD (gastroesophageal reflux disease) History of pulmonary embolism Hyperparathyroidism Hypomagnesemia Hypothyroid Hypoxia Iron deficiency anemia Irritable bowel syndrome Nausea & vomiting Restless leg Schizoaffective disorder Smoking Vomiting and diarrhea Weakness Surgical History History of section x2 Family History Denies family history of Inflammatory bowel disease Social History Smoking Status: Current every day smoker Tobacco Type: Cigarettes Cigarettes Per Day: 2-3 packs; Second Hand Exposure: No; Hx Alcohol Use: No Hx Substance Use: No Preferred Language: Faroese Communication Ability: Effective It Systems Administrator Required: No Beliefs That Will Affect Care: None marital status: Current Living Situation: Other Current Living Situation Comment: pt daughter lives with her How many Children do You have: 2 Feels Safe at Home: Yes Assistive Devices: Walker Review of Systems Review of Systems: as per HPI Physical Exam Physical Exam: General: 66-year old female who appears somnolent and ill and mildly diaphoretic. HEENT: NCAT. - Eyes - Sclera are white, anicteric, and without injection. - Mouth - MMM - Neck - supple, no appreciable JVD Cardiac: Mildly tachycardic with regular rhythm; S1 and S2 present with no murmurs, rubs, or gallops. Pulmonary: Difficult exam given habitus. Good respiratory effort with symmetric expansion of the chest. No use of accessory muscles. Lungs were clear to auscultation bilaterally with no crackles or wheezes. Abdominal: Normoactive bowel sounds. Abdomen was soft, nondistended; there was +TTP in the suprapubic region. No rebound/guarding Extremities: Upper and lower extremities are warm and well perfused. No peripheral edema in the lower extremities bilaterally Psych: Tired and ill-appearing. Occasionally dosing off. Behavior is cooperative. Affect is [unable to be assessed]. Results & Data Results & Data ([facility]) Vital Signs (Past 12 Hours) Vital Signs Temp Resp BP Pulse Ox O2 Del Method 07/24/22 23:00 37.3 C 24 150/98 H 95 Room Air 07/24/22 19:58 37 C 24 124/70 93 Room Air Supervising Physician Co-Signing Physician Notes Patient seen and examined, chart reviewed, case discussed with Dr. Marie and I agree with the assessment and plan as above. In brief, patient is a 66yo female with history of hyperPTH, PE, IBS, anxiety/depression, schizoaffective disorder presenting with urinary symptoms and nausea. Patient appears ill non exam and altered during encounter. Unable to provide clear concise details of events prior to arrival. She is afebrile, HD stable ill in appearance, appears encephalopathic MMM, neck supple +S1/S2, no m/r/g Lungs CTA Abd soft, NT/ND Ext warm, well perfused Labs and images reviewed Assessment/Plan Follow for progressive infection. Blood cultures obtained after antibiotics administered Continue Ceftriaxone Remainder as above Resident Activity Tracking Resident Involvement: Resident Care Provided Care Provided: Adult [facility] Medicine (1) Diabetes Diabetes mellitus complication status: without complication Diabetes mellitus [facility] insulin use: with exterminator use Diabetes mellitus type: type 2 Qualified Code(s): E11.9 - Type 2 diabetes mellitus without complications; Z79.4 - exterminator termite (current) use of insulin (2) Schizoaffective disorder Schizoaffective disorder type: depressive Qualified Code(s): F25.1 - Schizoaffective disorder, depressive type
--- NOTE | 2022-07-25 03:24 | Emergency Department Note ---
ED Visit Note Patient was evaluated by Dr. Avelar. The case was discussed with her with Dr. Wagner for admission for urinary tract infection intractable vomiting. Patient had a CT abdomen pelvis pending at the time of admission that exam was negative for acute findings according to radiology. Dr. Wagner will admit the patient at 3:24 AM,-placed the admit order in the system .
--- NOTE | 2022-07-25 03:46 | Billing Data ---
Date of Service July 25, 2022 Coding Level of Care Code 76201 Initial Inpt Care Lvl 3
[2022-07-25 04:30] LABS: Amphetamines+Metham, Urine Neg (Neg); Barbiturates, Urine Neg (Neg); Benzodiazepine, Urine Neg (Neg); Cocaine, Urine Neg (Neg); MDMA (Ecstacy), Urine Neg (Neg); Methadone, Urine Neg (Neg); Opiate, Urine Neg (Neg); Phencyclidine, Urine Neg (Neg)
[2022-07-25] MEDS ORDERED: ONDANSETRON 4 MG OD TAB PO PRN (05:27)
[2022-07-25] MEDS ORDERED: GLUCAGON FOR INJ 1 MG VIAL SQ PRN (05:27)
[2022-07-25] MEDS ORDERED: GLUCOSE 40% GEL 15 GM TUBE PO PRN (05:27)
[2022-07-25] MEDS ORDERED: DEXTROSE 50% 50 ML SYRINGE IV PRN (05:27)
[2022-07-25] MEDS ORDERED: GLUCOSE 10 TAB/TUBE PO PRN (05:27)
[2022-07-25] MEDS ORDERED: CARBOHYDRATES FOR HYPOGLYCEMIA PO PRN (05:27)
[2022-07-25] MEDS ORDERED: DC ALL PREVIOUSLY ORDERED DIABETES MEDS ONE (05:27)
[2022-07-25] MEDS: SODIUM CHLORIDE 0.9% 1000ML 1,000 ML IV SCH ×3 (06:26→18:02)
[2022-07-25] MEDS: LEVOTHYROXINE SODIUM 50 MCG TABLET PO SCH (06:45)
--- NOTE | 2022-07-25 08:04 | CT Scan Report ---
ABDOMEN AND PELVIS CT WITH IV CONTRAST CT DOSE: 1601.59 mGy.cm HISTORY: Acute generalized abdominal pain with nausea and vomiting n/v TECHNIQUE: Multiaxial CT images of the abdomen and pelvis were performed following the IV administrat ion of 93 cc of Optiray, A dose lowering technique was utilized adhering to the principles of ALARA. COMPARISON STUDY: CT 06/27/2022, 06/16/2022 FINDINGS: Limited exam secondary to upper extremity positioning and respiratory motion artifact. Mild cardiomegaly. Clear lung bases. There is no pneumatosis or pneumoperitoneum. Unremarkable spleen, mi ldly atrophic pancreas and adrenal glands. Cholecystectomy. Unchanged mild biliary ductal dilation, l ikely postsurgical. Hepatomegaly with hepatic steatosis. No evidence of cirrhosis or hepatic mass. Pa tency of the hepatic and portal veins. Unremarkable kidneys without hydronephrosis. 10 mm cyst within the interpolar left kidney. Mild circu mferential urinary bladder wall thickening with partial distention. Hysterectomy. No adnexal mass les ion. Atherosclerosis of the aorta without aneurysm. No lymphadenopathy. No bowel obstruction. Tiny hiatal hernia. Scattered air-fluid levels are noted within nondilated loop s of both large and small bowel. Hyperdense material is noted within the appendiceal lumen which may represent appendicolith versus retained enteric contrast. No CT evidence of acute appendicitis. Unrem arkable soft tissues. Degenerative changes of the spine, pelvis and hips. IMPRESSION: 1. Limited exam as above. 2. No bowel obstruction or bowel wall thickening. 3. Air-fluid levels throughout nondilated loops of large and small bowel are suggestive of enteritis with diarrheal illness. 4. Hepatomegaly with hepatic steatosis. 5. Additional findings as above. ACT 112: Negative or not required by law. The above report was generated using voice recognition software. It may contain grammatical, syntax o r spelling errors. Electronically signed by: Altaf Lofton M.D. 07/25/2022 8:03 AM
[2022-07-25] MEDS: PANTOprazole 40 MG TAB PO SCH (08:33)
[2022-07-25] MEDS: FOLIC ACID 1 MG TAB PO SCH (08:34)
[2022-07-25] MEDS: PANCREAZE (LIPASE 4,200U) CAP PO SCH ×3 (08:34→17:01)
[2022-07-25] MEDS: ESCITALOPRAM OXALATE 20 MG TAB PO SCH (08:34)
[2022-07-25] MEDS: BENZTROPINE MESYLATE 0.5 MG TAB PO SCH ×2 (08:34→20:45)
[2022-07-25] MEDS: CYANOCOBALAMIN (B-12) 500 MCG TABLET PO SCH ×2 (08:34→20:45)
[2022-07-25] MEDS: THIAMINE HCL 100 MG TAB PO SCH ×2 (08:35→20:47)
[2022-07-25] MEDS: FERROUS SULFATE 325 MG TAB PO SCH (08:35)
[2022-07-25] MEDS: MAGNESIUM OXIDE 400 MG TAB PO SCH ×2 (08:35→20:46)
[2022-07-25] MEDS: busPIRone 15 MG TAB PO SCH ×3 (08:36→20:45)
[2022-07-25] MEDS: FAMOTIDINE 20 MG TAB PO SCH (08:36)
[2022-07-25] MEDS: LORATADINE 10 MG TAB PO SCH (08:36)
[2022-07-25] MEDS: clonazePAM 1 MG TAB PO PRN ×2 (08:45→20:43)
[2022-07-25] MEDS: RIVAROXABAN 20 MG TAB PO SCH (09:31)
[2022-07-25] MEDS: CHOLESTYRAMINE LIGHT 4 GM PKT PO SCH ×2 (09:48→22:00)
[2022-07-25] MEDS: INSULIN ASPART PER UNIT SC SCH ×4 (09:48→20:42)
--- NOTE | 2022-07-25 19:22 | Billing Data ---
Date of Service July 25, 2022 Coding Level of Care Code 66377 Initial Inpt Care Lvl 3
[2022-07-25] MEDS: ACETAMINOPHEN 325 MG TAB PO PRN (19:43)
[2022-07-25] MEDS ORDERED: IBUPROFEN 600 MG TAB PO STA (20:37)
[2022-07-25] MEDS: QUEtiapine FUMARATE 200 MG TAB PO SCH (20:46)
[2022-07-25] MEDS: DIVALPROEX EXTENDED RELEASE 500 MG TAB PO SCH (20:46)
[2022-07-25] MEDS: rOPINIRole HCL 0.25 MG TABLET PO SCH (20:47)
[2022-07-25] MEDS: NYSTATIN CR 15 GM TUBE EXT SCH (23:36)
[2022-07-26] MEDS: cefTRIAXone SODIUM 2,000 MG in DEXTROSE 5% 50 ML IV SCH (01:30)
[2022-07-26] MEDS: LEVOTHYROXINE SODIUM 50 MCG TABLET PO SCH (06:25)
[2022-07-26] MEDS: SODIUM CHLORIDE 0.9% 1000ML 1,000 ML IV SCH ×2 (07:47→20:25)
[2022-07-26 08:22] LABS: Basophils # (auto) 0.03 K/uL (0-0.2); Basophils % (auto) 0.4 %; Eosinophils # (auto) 0.26 K/uL (0-0.50); Eosinophils % (auto) 3.9 %; Hemoglobin 12.8 g/dl (12.0-16.0); Immature Granulocytes # (auto) 0.02 K/uL (0.00-0.02); Immature Granulocytes % (auto) 0.3 %; Lymphocytes # (auto) 2.71 K/uL (1.2-3.4); Lymphocytes % (auto) 40.1 %; Mean Corpuscular Hemoglobin 31.1 pg (25.0-34.0); Mean Corpuscular Hgb Conc 33.7 g/dL (32.0-36.0); Mean Corpuscular Volume 92.5 fL (80.0-100.0); Mean Platelet Volume 9.7 fL (9.4-12.3); Monocytes # (auto) 0.61 K/uL (0.24-0.82); Neutrophils # (auto) 3.12 K/uL (1.4-6.5); Neutrophils % (auto) 46.3 %; Platelet Count 187 K/uL (130-400); RDW Coefficient of Variation 13.5 % (11.5-14.5); RDW Standard Deviation 46.2 fL (36.4-46.3); Red Blood Count 4.11 M/uL (3.93-5.22); White Blood Count 6.75 K/ul (4.8-10.8)
[2022-07-26] MEDS: INSULIN ASPART PER UNIT SC SCH ×4 (08:40→20:50)
[2022-07-26] MEDS: RIVAROXABAN 20 MG TAB PO SCH (08:41)
[2022-07-26] MEDS: BENZTROPINE MESYLATE 0.5 MG TAB PO SCH ×2 (08:42→21:04)
[2022-07-26] MEDS: busPIRone 15 MG TAB PO SCH ×3 (08:42→21:04)
[2022-07-26] MEDS: PANCREAZE (LIPASE 4,200U) CAP PO SCH ×3 (08:42→17:30)
[2022-07-26] MEDS: NYSTATIN CR 15 GM TUBE EXT SCH ×2 (08:42→17:29)
[2022-07-26] MEDS: CYANOCOBALAMIN (B-12) 500 MCG TABLET PO SCH ×2 (08:43→21:04)
[2022-07-26] MEDS: ESCITALOPRAM OXALATE 20 MG TAB PO SCH (08:43)
[2022-07-26] MEDS: FAMOTIDINE 20 MG TAB PO SCH (08:43)
[2022-07-26] MEDS: FOLIC ACID 1 MG TAB PO SCH (08:43)
[2022-07-26] MEDS: PANTOprazole 40 MG TAB PO SCH (08:44)
[2022-07-26] MEDS: MAGNESIUM OXIDE 400 MG TAB PO SCH ×2 (08:44→21:05)
[2022-07-26] MEDS: THIAMINE HCL 100 MG TAB PO SCH ×2 (08:44→21:06)
[2022-07-26] MEDS: LORATADINE 10 MG TAB PO SCH (08:44)
[2022-07-26 08:50] LABS: Albumin Globulin Ratio 1.2 (0.9-2); BUN Creatinine Ratio 15.7 (10-20); Bilirubin,Total 0.4 mg/dl (0.2-1.0); Calcium 8.2 mg/dl (8.5-10.1); Creatinine Clr Calc Pharmacy 78.6 ml/min; Est GFR (African American) 106.1 ml/min; Est GFR (Non-African American) 91.6 ml/min; Globulin 2.5 gm/dl (2.5-4.0); Magnesium 1.5 mg/dl (1.7-2.4); Potassium 3.9 mmol/L (3.5-5.1); Total Protein 5.5 gm/dl (6.0-8.3)
[2022-07-26] MEDS: CHOLESTYRAMINE LIGHT 4 GM PKT PO SCH ×2 (09:42→21:00)
[2022-07-26] MEDS: ACETAMINOPHEN 325 MG TAB PO PRN ×2 (12:07→20:01)
[2022-07-26] MEDS: DIVALPROEX EXTENDED RELEASE 500 MG TAB PO SCH (21:05)
[2022-07-26] MEDS: QUEtiapine FUMARATE 200 MG TAB PO SCH (21:05)
[2022-07-26] MEDS: clonazePAM 1 MG TAB PO PRN (21:06)
[2022-07-26] MEDS: rOPINIRole HCL 0.25 MG TABLET PO SCH (21:06)
--- NOTE | 2022-07-26 22:27 | Hospitalist Progress Note ---
Date of Service July 26, 2022 Assessment & Plan (1) UTI (urinary tract infection): Plan: This is a 66-year-old female with a history of hyperparathyroidism, history of PE, IBS, anxiety, depression, schizoaffective disorder, GERD, T2DM, chronic enterocolitis of unknown origin who presented to [facility] for evaluation of urinary symptoms and nausea, likely secondary to a urinary tract infection. Patient somnolent on my time of exam and a reliable medication reconciliation was unable to be completed ; reviewed RX from last admission for reference. This will need confirmed when mentation has improved Urinary Tract Infection - Urinary symptoms and UA c/w UTI - Send urine for culture; patient has frequent healthcare contact - Prior cultures demonstrating mostly E. coli w/ resistance to ampicillin, ciprofloxacin, and single culture of pansensitive Proteus - CFTX for now - 2g q24h given wt >60kg - de-escalate when appropriate - Check blood cultures and procal given +AMS upon my time of exam (though this may be d/t Ativan) - Diabetes control as below On 07/26 Patient has been afebrile. (2) Nausea & vomiting: Plan: GI Upset - Nausea, Vomiting - Patient reported developing n/v on night of admission in context of UTI -- denied diarrhea - CT-A/P (STAT-Rad) revealing of: "There is fluid throughout the colon concerning for a diarrheal illness." - Patient with recurrent bouts of n/v noted on admission in Jun 2022; negative infectious, inflammatory w/u per chart review - Suspect this bout is d/t UTI based on other HPI - though difficult to gain additional history with AMS at time of admission - Check UDS given AMS and recurrent n/v - Continue IVF for now, replete lytes PRN On 07/26 Symptoms have improved. (3) Altered mental status: Plan: Altered Mental Status - Not present on arrival. Developed after receiving total of Ativan 1mg and prochlorperazine in the ED - Check blood cultures, procal, UDS as above - Suspect secondary to sedating effects of medications above though favor ruling out secondary w/u as above - Low-threshold for CT-H if any FNDs develop or worsens into the AM - Monitor on MS/T. Fall precautions. Patient no longer confused or altered on 07/26 (4) History of pulmonary embolism: Plan: History of PE - Continue Xarelto (5) Diabetes: Plan: Type 2 Diabetes Mellitus - Last A1c 9.4% in 03/2022. - Check A1c - Hold glyburide - SSI w/ CF 25; titrate as needed, consider addition of basal insulin (6) GERD (gastroesophageal reflux disease): Plan: GERD - Continue PPI (7) Schizoaffective disorder: Plan: Anxiety/depression/schizoaffective disorder - Continue home BuSpar, escitalopram, quetiapine, divalproex - Hold Klonopin with w/u for ongoing AMS (8) Restless leg: Plan: Restless leg syndrome - Continue ropinirole HS Plan Code: Full code - unable to have meaningful conversation with patient given AMS (kept dosing off during questioning); every admission up to this point has been FULL CODE. Will need to be revisited. Diet: CC when safe. Aspiration precautions PPX: Continue home Xarelto Dispo: MS/T Admission and Anticipated Discharge Date Admission Date: July 25, 2022 Subjective Patient reports feeling better; her nausea has improved. Review of Systems Review of Systems: All systems reviewed & are unremarkable except as noted in HPI & below Physical Exam Physical Exam: General: 66-year old female HEENT: NCAT. - Eyes - Sclera are white, anicteric, and without injection. - Mouth - MMM - Neck - supple, no appreciable JVD Cardiac: Regular rate, regular rhythm; S1 and S2 present with no murmurs, rubs, or gallops. Pulmonary: Difficult exam given habitus. Good respiratory effort with symmetric expansion of the chest. No use of accessory muscles. Lungs were clear to auscultation bilaterally with no crackles or wheezes. Abdominal: Normoactive bowel sounds. Abdomen was soft, nondistended; there was +TTP in the suprapubic region. No rebound/guarding Extremities: Upper and lower extremities are warm and well perfused. No peripheral edema in the lower extremities bilaterally Results & Data Results & Data ([facility]) Vital Signs (Past 12 Hours) Vital Signs Temp Pulse Resp BP Pulse Ox O2 Del Method 07/26/22 19:00 36.8 C 80 21 112/76 90 Room Air 07/26/22 14:57 37.1 C 81 16 96/62 L 92 Room Air PG Care Time/CCT Total # of Minutes Spent Total Time Spent with Patient: Total time spent is greater than 50% in coordination of care (as documented) at patient's floor/unit and/or counseling patient: Coding Level of Care Code 90985 Subseq Hosp Care Lvl 2 Diagnoses UTI (urinary tract infection) N39.0 Nausea & vomiting R11.2 Altered mental status R41.82 History of pulmonary embolism Z86.711 Diabetes E11.9; Z79.4 Diabetes mellitus complication status: without complication Diabetes mellitus long distance operator insulin use: with nursing home use Diabetes mellitus type: type 2 GERD (gastroesophageal reflux disease) K21.9 Schizoaffective disorder F25.1 Schizoaffective disorder type: depressive Restless leg G25.81 (1) Diabetes Diabetes mellitus complication status: without complication Diabetes mellitus nursing home insulin use: with nursing home use Diabetes mellitus type: type 2 Qualified Code(s): E11.9 - Type 2 diabetes mellitus without complications; Z79.4 - vermin exterminator (current) use of insulin (2) Schizoaffective disorder Schizoaffective disorder type: depressive Qualified Code(s): F25.1 - Schizoaffective disorder, depressive type
[2022-07-26] MEDS ORDERED: MoRPHine SULFATE 2 MG/ML CARP IV STA (23:10)
[2022-07-26] MEDS ORDERED: MAGNESIUM SULFATE / D5W 1 GM/100 ML BAG IV ONE (23:45)
[2022-07-27] MEDS: NYSTATIN CR 15 GM TUBE EXT SCH ×3 (00:37→15:23)
[2022-07-27] MEDS: cefTRIAXone SODIUM 2,000 MG in DEXTROSE 5% 50 ML IV SCH (02:44)
[2022-07-27] MEDS: ACETAMINOPHEN 325 MG TAB PO PRN ×3 (06:02→20:36)
[2022-07-27] MEDS: LEVOTHYROXINE SODIUM 50 MCG TABLET PO SCH (06:03)
[2022-07-27 06:24] LABS: Hematocrit (blood only) 37.1 % (34.1-44.9); Mean Corpuscular Hemoglobin 32.4 pg (25.0-34.0); Mean Corpuscular Volume 92.5 fL (80.0-100.0); Mean Platelet Volume 9.7 fL (9.4-12.3); Platelet Count 210 K/uL (130-400); RDW Coefficient of Variation 13.2 % (11.5-14.5); RDW Standard Deviation 44.8 fL (36.4-46.3); Red Blood Count 4.01 M/uL (3.93-5.22); White Blood Count 7.26 K/ul (4.8-10.8)
[2022-07-27 06:50] LABS: BUN Creatinine Ratio 12.5 (10-20); Calcium 8.8 mg/dl (8.5-10.1); Creatinine Clr Calc Pharmacy 86.2 ml/min; Est GFR (African American) 109.3 ml/min; Est GFR (Non-African American) 94.3 ml/min; Potassium 3.9 mmol/L (3.5-5.1)
[2022-07-27 07:06] LABS: Estimated Average Glucose 151 mg/dl; Hemoglobin A1C 6.9 % (4.5-5.6)
[2022-07-27] MEDS: SODIUM CHLORIDE 0.9% 1000ML 1,000 ML IV SCH (08:56)
[2022-07-27] MEDS: INSULIN ASPART PER UNIT SC SCH ×4 (08:56→20:36)
[2022-07-27] MEDS: RIVAROXABAN 20 MG TAB PO SCH (08:57)
[2022-07-27] MEDS: CHOLESTYRAMINE LIGHT 4 GM PKT PO SCH ×2 (08:57→22:40)
[2022-07-27] MEDS: ESCITALOPRAM OXALATE 20 MG TAB PO SCH (09:00)
[2022-07-27] MEDS: FOLIC ACID 1 MG TAB PO SCH (09:00)
[2022-07-27] MEDS: PANTOprazole 40 MG TAB PO SCH (09:00)
[2022-07-27] MEDS: FAMOTIDINE 20 MG TAB PO SCH (09:00)
[2022-07-27] MEDS: CYANOCOBALAMIN (B-12) 500 MCG TABLET PO SCH ×2 (09:00→20:36)
[2022-07-27] MEDS: BENZTROPINE MESYLATE 0.5 MG TAB PO SCH ×2 (09:01→20:36)
[2022-07-27] MEDS: PANCREAZE (LIPASE 4,200U) CAP PO SCH ×3 (09:01→16:55)
[2022-07-27] MEDS: MAGNESIUM OXIDE 400 MG TAB PO SCH ×2 (09:01→20:37)
[2022-07-27] MEDS: THIAMINE HCL 100 MG TAB PO SCH ×2 (09:01→20:37)
[2022-07-27] MEDS: busPIRone 15 MG TAB PO SCH ×3 (09:01→20:36)
[2022-07-27] MEDS: FERROUS SULFATE 325 MG TAB PO SCH (09:01)
[2022-07-27] MEDS: LORATADINE 10 MG TAB PO SCH (09:01)
[2022-07-27] MEDS: clonazePAM 1 MG TAB PO PRN ×2 (13:31→20:36)
[2022-07-27] MEDS: DIVALPROEX EXTENDED RELEASE 500 MG TAB PO SCH (20:36)
[2022-07-27] MEDS: QUEtiapine FUMARATE 200 MG TAB PO SCH (20:37)
[2022-07-27] MEDS: rOPINIRole HCL 0.25 MG TABLET PO SCH (20:37)
--- NOTE | 2022-07-27 22:22 | Hospitalist Progress Note ---
Date of Service July 27, 2022 Assessment & Plan (1) UTI (urinary tract infection): Plan: This is a 66-year-old female with a history of hyperparathyroidism, history of PE, IBS, anxiety, depression, schizoaffective disorder, GERD, T2DM, chronic enterocolitis of unknown origin who presented to [facility] for evaluation of urinary symptoms and nausea, likely secondary to a urinary tract infection. Patient somnolent on my time of exam and a reliable medication reconciliation was unable to be completed ; reviewed RX from last admission for reference. This will need confirmed when mentation has improved Urinary Tract Infection - Urinary symptoms and UA c/w UTI - Send urine for culture; patient has frequent healthcare contact - Prior cultures demonstrating mostly E. coli w/ resistance to ampicillin, ciprofloxacin, and single culture of pansensitive Proteus - CFTX for now - 2g q24h given wt >60kg - de-escalate when appropriate - Check blood cultures and procal given +AMS upon my time of exam (though this may be d/t Ativan) - Diabetes control as below On w Patient has been afebrile. ordered 2 step. will get xray (2) Nausea & vomiting: Plan: GI Upset - Nausea, Vomiting - Patient reported developing n/v on night of admission in context of UTI -- denied diarrhea - CT-A/P (STAT-Rad) revealing of: "There is fluid throughout the colon concerning for a diarrheal illness." - Patient with recurrent bouts of n/v noted on admission in March/Jun 2022; negative infectious, inflammatory w/u per chart review - Suspect this bout is d/t UTI based on other HPI - though difficult to gain additional history with AMS at time of admission - Check UDS given AMS and recurrent n/v - Continue IVF for now, replete lytes PRN On 07/27 Symptoms have improved. (3) Altered mental status: Plan: Altered Mental Status - Not present on arrival. Developed after receiving total of Ativan 1mg and prochlorperazine in the ED - Check blood cultures, procal, UDS as above - Suspect secondary to sedating effects of medications above though favor ruling out secondary w/u as above - Low-threshold for CT-H if any FNDs develop or worsens into the AM - Monitor on MS/T. Fall precautions. Patient no longer confused or altered on 07/26 (4) History of pulmonary embolism: Plan: History of PE - Continue Xarelto (5) Diabetes: Plan: Type 2 Diabetes Mellitus - Last A1c 9.4% in 03/2022. - Check A1c - Hold glyburide - SSI w/ CF 25; titrate as needed, consider addition of basal insulin (6) GERD (gastroesophageal reflux disease): Plan: GERD - Continue PPI (7) Schizoaffective disorder: Plan: Anxiety/depression/schizoaffective disorder - Continue home BuSpar, escitalopram, quetiapine, divalproex - Hold Klonopin with w/u for ongoing AMS (8) Restless leg: Plan: Restless leg syndrome - Continue ropinirole HS Plan Code: Full code - unable to have meaningful conversation with patient given AMS (kept dosing off during questioning); every admission up to this point has been FULL CODE. Will need to be revisited. Diet: CC when safe. Aspiration precautions PPX: Continue home Xarelto Dispo: MS/T Admission and Anticipated Discharge Date Admission Date: July 25, 2022 Subjective 66 yo female reports no new symptoms. Review of Systems Review of Systems: All systems reviewed & are unremarkable except as noted in HPI & below Physical Exam Physical Exam: General: 66-year old female HEENT: NCAT. - Eyes - Sclera are white, anicteric, and without injection. - Mouth - MMM - Neck - supple, no appreciable JVD Cardiac: Regular rate, regular rhythm; S1 and S2 present with no murmurs, rubs, or gallops. Pulmonary: Difficult exam given habitus. Good respiratory effort with symmetric expansion of the chest. No use of accessory muscles. Lungs were clear to auscultation bilaterally with no crackles or wheezes. Abdominal: Normoactive bowel sounds. Abdomen was soft, nondistended; there was +TTP in the suprapubic region. No rebound/guarding Extremities: Upper and lower extremities are warm and well perfused. No peripheral edema in the lower extremities bilaterally Results & Data Results & Data ([facility]) Vital Signs (Past 12 Hours) Vital Signs Temp Pulse Pulse Pulse Pulse Pulse Resp 07/27/22 19:47 36.7 C 75 18 07/27/22 15:00 78 07/27/22 15:00 36.7 C 77 20 07/27/22 15:59 100 H 89 84 07/27/22 15:19 07/27/22 12:48 73 20 07/27/22 12:26 77 Resp Resp Resp BP Pulse Ox Pulse Ox Pulse Ox 07/27/22 19:47 118/80 92 07/27/22 15:00 07/27/22 15:00 107/69 91 07/27/22 15:59 20 19 18 91 92 07/27/22 15:19 94 07/27/22 12:48 119/86 92 07/27/22 12:26 Pulse Ox O2 Del Method O2 Flow Rate 07/27/22 19:47 Nasal Cannula 2 07/27/22 15:00 07/27/22 15:00 Room Air 07/27/22 15:59 94 07/27/22 15:19 07/27/22 12:48 Nasal Cannula 2 07/27/22 12:26 PG Care Time/CCT Total # of Minutes Spent Total Time Spent with Patient: Total time spent is greater than 50% in coordination of care (as documented) at patient's floor/unit and/or counseling patient: Coding Level of Care Code 87151 Subseq Hosp Care Lvl 2 Diagnoses UTI (urinary tract infection) N39.0 Nausea & vomiting R11.2 Altered mental status R41.82 History of pulmonary embolism Z86.711 Diabetes E11.9; Z79.4 Diabetes mellitus complication status: without complication Diabetes mellitus penitentiary insulin use: with filler leaf cutter long use Diabetes mellitus type: type 2 GERD (gastroesophageal reflux disease) K21.9 Schizoaffective disorder F25.1 Schizoaffective disorder type: depressive Restless leg G25.81 Time Spent (min) 25 (1) Diabetes Diabetes mellitus complication status: without complication Diabetes mellitus filler leaf cutter long insulin use: with filler leaf cutter long use Diabetes mellitus type: type 2 Qualified Code(s): E11.9 - Type 2 diabetes mellitus without complications; Z79.4 - 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
[2022-07-28] MEDS: NYSTATIN CR 15 GM TUBE EXT SCH ×2 (00:06→09:13)
[2022-07-28] MEDS: cefTRIAXone SODIUM 2,000 MG in DEXTROSE 5% 50 ML IV SCH (02:41)
[2022-07-28 06:07] LABS: Hematocrit (blood only) 36.1 % (34.1-44.9); Hemoglobin 12.3 g/dl (12.0-16.0); Mean Corpuscular Hemoglobin 31.5 pg (25.0-34.0); Mean Corpuscular Hgb Conc 34.1 g/dL (32.0-36.0); Mean Corpuscular Volume 92.3 fL (80.0-100.0); Mean Platelet Volume 9.6 fL (9.4-12.3); Platelet Count 210 K/uL (130-400); RDW Coefficient of Variation 13.1 % (11.5-14.5); RDW Standard Deviation 43.4 fL (36.4-46.3); Red Blood Count 3.91 M/uL (3.93-5.22); White Blood Count 7.29 K/ul (4.8-10.8)
[2022-07-28 06:39] LABS: BUN Creatinine Ratio 12.7 (10-20); Blood Urea Nitrogen 10 mg/dl (6-23); Carbon Dioxide 30 mmol/L (21-32); Chloride 104 mmol/L (98-107); Creatinine Clr Calc Pharmacy 70.3 ml/min; Est GFR (African American) 91.7 ml/min; Est GFR (Non-African American) 79.1 ml/min; Glucose 124 mg/dl (70-99(Fasting))
[2022-07-28] MEDS: LEVOTHYROXINE SODIUM 50 MCG TABLET PO SCH (07:00)
--- NOTE | 2022-07-28 07:22 | XRay Report ---
XR chest 1V portable HISTORY: 66 years-old Female sob acute shortness of breath COMPARISON: Chest radiograph 06/16/2022 TECHNIQUE: Portable AP view of the chest FINDINGS: The cardiomediastinal and hilar silhouettes are within normal limits. No pneumothorax, pleural effusi on, airspace consolidation or overt pulmonary edema. Bones of the chest appear grossly intact. IMPRESSION: No acute process. ACT 112: Negative or not required by law. The above report was generated using voice recognition software. It may contain grammatical, syntax o r spelling errors. Electronically signed by: Altaf Lofton M.D. 07/28/2022 7:20 AM
[2022-07-28 07:27] LABS: Potassium 4.1 mmol/L (3.5-5.1)
[2022-07-28] MEDS: INSULIN ASPART PER UNIT SC SCH ×2 (09:10→12:18)
[2022-07-28] MEDS: PANTOprazole 40 MG TAB PO SCH (09:11)
[2022-07-28] MEDS: RIVAROXABAN 20 MG TAB PO SCH (09:11)
[2022-07-28] MEDS: FOLIC ACID 1 MG TAB PO SCH (09:11)
[2022-07-28] MEDS: ESCITALOPRAM OXALATE 20 MG TAB PO SCH (09:11)
[2022-07-28] MEDS: LORATADINE 10 MG TAB PO SCH (09:11)
[2022-07-28] MEDS: FAMOTIDINE 20 MG TAB PO SCH (09:11)
[2022-07-28] MEDS: CHOLESTYRAMINE LIGHT 4 GM PKT PO SCH (09:11)
[2022-07-28] MEDS: MAGNESIUM OXIDE 400 MG TAB PO SCH (09:12)
[2022-07-28] MEDS: busPIRone 15 MG TAB PO SCH (09:12)
[2022-07-28] MEDS: THIAMINE HCL 100 MG TAB PO SCH (09:12)
[2022-07-28] MEDS: BENZTROPINE MESYLATE 0.5 MG TAB PO SCH (09:12)
[2022-07-28] MEDS: CYANOCOBALAMIN (B-12) 500 MCG TABLET PO SCH (09:12)
[2022-07-28] MEDS: ACETAMINOPHEN 325 MG TAB PO PRN (09:13)
[2022-07-28] MEDS: PANCREAZE (LIPASE 4,200U) CAP PO SCH ×2 (09:13→12:18)
--- NOTE | 2022-07-28 12:30 | Discharge Summary ---
Date of Service July 28, 2022 Admission HPI Per Admitting Provider This is a 66-year-old female with a history of hyperparathyroidism, history of PE, IBS, anxiety, depression, schizoaffective disorder, GERD, T2DM, chronic enterocolitis of unknown origin who presented to [facility] for evaluation of urinary symptoms and nausea. Patient recently received medication causing sedation prior to my arrival; unable to obtain reliable history from patient. Patient was recently treated as an outpatient for a UTI with subsequent resolution of her symptoms; this was approximately 2 weeks ago. Over the last several days, she began developing new urinary symptomsinclusive of frequency, urgency, and dysuria. This subsequently evolved into nausea with vomiting this evening. She denies pain elsewhere. No JOHNSON. No diarrhea. Of note, patient has had several recent admissions for intractable nausea and vomiting that previously responded to Reglan, however had to be discontinued due to significant medication interactions. In the ED, patient was alert on arrival and found to have a CBC remarkable only for a hemoglobin 16.6. Mild monocytopenia. BMP revealing of calcium 10.2. Urine studies reveal turbid appearance with trace blood, positive nitrates, leuk esterase, over 30 white blood cells and red blood cells, 4+ bacteria in the setting of over [address] epithelial cells. Contrast-enhanced CT of the abdomen and pelvis, stat rad, revealing of: " The study is limited secondary to motion artifact. There is fluid throughout the colon concerning for a diarrheal illness. Hepatic steatosis. Status post cholecystectomy. The common bile duct is prominent without evidence of obstructing lesion. No evidence of pancreatitis. No evidence of hydronephrosis or urinary calculi. No evidence of appendicitis. No evidence of free air, free fluid or colitis. Status post hysterectomy." She was given Zofran, 1 L NSS, prochlorperazine, lorazepam. Principal Diagnosis UTI Discharge Exam General: 66-year old female HEENT: NCAT. - Eyes - Sclera are white, anicteric, and without injection. - Mouth - MMM - Neck - supple, no appreciable JVD Cardiac: Regular rate, regular rhythm; S1 and S2 present with no murmurs, rubs, or gallops. Pulmonary: Difficult exam given habitus. Good respiratory effort with symmetric expansion of the chest. No use of accessory muscles. Lungs were clear to auscultation bilaterally with no crackles or wheezes. Abdominal: Normoactive bowel sounds. Abdomen was soft, nondistended; there was +TTP in the suprapubic region. No rebound/guarding Extremities: Upper and lower extremities are warm and well perfused. No peripheral edema in the lower extremities bilaterally Discharge Data Allergies Allergy/AdvReac Type Severity Reaction Status Date / Time egg AdvReac Severe Vomiting Verified 07/25/22 02:16 Penicillins AdvReac Severe Vomiting Verified 07/25/22 02:16 Consultations 07/25/22 03:23 ED Decision to Admit Stat Ordered Studies 07/24/22 23:51 CT abd pelvis IV con only Urgent Hospital Course (1) UTI (urinary tract infection): This is a 66-year-old female with a history of hyperparathyroidism, history of PE, IBS, anxiety, depression, schizoaffective disorder, GERD, T2DM, chronic enterocolitis of unknown origin who presented to [facility] for evaluation of urinary symptoms and nausea, likely secondary to a urinary tract infection. Patient somnolent on my time of exam and a reliable medication reconciliation was unable to be completed ; reviewed RX from last admission for reference. This will need confirmed when mentation has improved Urinary Tract Infection - Urinary symptoms and UA c/w UTI -culture grew Klebsiella pneumonia -treated with IV antibiotics, received 3 days worth of ceftriaxone IV -patient asymptomatic at discharge. (2) Nausea & vomiting: GI Upset - Nausea, Vomiting - Patient reported developing n/v on night of admission in context of UTI -- denied diarrhea - CT-A/P (STAT-Rad) revealing of: "There is fluid throughout the colon concerning for a diarrheal illness." - Patient with recurrent bouts of n/v noted on admission in March/Jun 2022; negative infectious, inflammatory w/u per chart review - Suspect this bout is d/t UTI based on other HPI - though difficult to gain additional history with AMS at time of admission Symptoms improved, likely related with UTI treatment. (3) Altered mental status: Altered Mental Status - Not present on arrival. Developed after receiving total of Ativan 1mg and prochlorperazine in the ED - Check blood cultures, procal, UDS as above - Suspect secondary to sedating effects of medications above though favor ruling out secondary w/u as above Patient no longer confused or altered on 07/26, nor did confusion return throughout hospital stay. May need to decrease amount of medications or dose, will defer to PCP (4) History of pulmonary embolism: History of PE - Continue Xarelto (5) Diabetes: Type 2 Diabetes Mellitus - Last A1c 9.4% in 03/2022. - resume home meds at discharge (6) GERD (gastroesophageal reflux disease): GERD - Continue PPI (7) Schizoaffective disorder: Anxiety/depression/schizoaffective disorder - Continue home BuSpar, escitalopram, quetiapine, divalproex - Hold Klonopin with w/u for ongoing AMS resume at discharge (8) Restless leg: Restless leg syndrome - Continue ropinirole HS Total Time Total Time Spent Total Time Spent (In Minutes): 35 Discharge Plan Discharge Items Patient Disposition: Home - Self-Care Reason For Visit: UTI, NAUSEA, VOMITING Discharge Diagnosis: UTI, nausea, vomiting Activity: Resume your previous activity Non-emergency contact: Primary Care Provider Call non-emergency contact if: you have any medication questions Follow-up/Referrals: Dylan Fuentes PA-C [Primary Care Provider] - 08/07/22 10:30 am Diet: Carb Consistent or DM2 Addtl Attending Provider Instructions: You have been hospitalized for an acute medical problem. During your stay at [facility], we have made an effort to correct the problem that brought you to the hospital while keeping you as comfortable as possible. Medications were used to bring your condition under control and your discharge instructions will include directions for any medications you should take after leaving the hospital. Please make sure you see your Primary Care Provider as part of your follow up plan. Follow up with PCP in 1-2 weeks. Pending Studies at Discharge: No Stand-Alone Forms: [facility], Smoking Cessation Medications and DC Order Prescriptions: Continued pantoprazole [Protonix] 40 mg tablet,delayed release (DR/EC) 40 mg PO QAM buspirone 15 mg tablet 15 mg PO TID Creon 12,000-38,000 -60,000 unit capsule,delayed release(DR/EC) 1 cap PO TID Xarelto 20 mg tablet 20 mg PO QAM ropinirole 0.5 mg tablet 0.5 mg PO HS escitalopram oxalate [Lexapro] 20 mg tablet 20 mg PO QAM levothyroxine 50 mcg tablet 50 mcg PO QAM famotidine 20 mg tablet 20 mg PO DAILY folic acid 1 mg Tablet 1 mg PO QAM Qty: 30 0RF clonazepam 1 mg tablet 1 mg PO TID PRN (Reason: Anxiety) glipizide 5 mg tablet 5 mg PO BID Qty: 60 1RF metformin 500 mg tablet 500 mg PO BID benztropine 0.5 mg tablet 0.5 mg PO BID quetiapine 400 mg tablet 400 mg PO HS cholestyramine (with sugar) [Questran] 4 gram powder in packet 1 ea PO BID gabapentin 100 mg capsule 100 mg PO UD Rx Instructions: take 1 capsule in morning and at noon then take 2 capsules at bedtime ferrous sulfate [Iron (ferrous sulfate)] 325 mg (65 mg iron) tablet 325 mg PO Q OTHER DAY divalproex [Depakote ER] 500 mg tablet extended release 24 hr 1,500 mg PO HS cyanocobalamin (vitamin B-12) [Vitamin B-12] 1,000 mcg tablet 1,000 mcg PO BID loratadine [Allergy Relief (loratadine)] 10 mg tablet 10 mg PO QAM thiamine HCl (vitamin B1) [Vitamin B-1] 100 mg tablet 100 mg PO BID ondansetron HCl 4 mg tablet 4 mg PO Q8 PRN (Reason: Nausea And Vomiting) magnesium oxide 400 mg (241.3 mg magnesium) Tablet 400 mg PO BID Qty: 60 0RF Discharge Orders: Discharge Order (Routine); Ordered 07/28/22 Ordered By: Misael Maya/Other Patient Handouts: High Blood Sugar (Hyperglycemia), Hypoglycemia (Low Blood Sugar), Managing Type 2 Diabetes, Cancer Tx Control Nausea Vomiting, Anatomy of the Female Urinary Tract, Urinary Tract Infections in Women, Self- Care for Vomiting and Diarrhea, Vomiting Diarrhea Diet Adult, Vomit Diarrhea Nonspecific Adult Admission Data Admit Date/Time: 07/25/22 03:31 Attending Provider: Misael Parekh Admit Provider: Phogn Marie Primary Care Provider: Dylan Fuentes Other Providers: Alysa Wagner Other Interventions: Discharge Summary Assessment (RN) Last Done: 07/28/22 12:36 Coding Level of Care Code D/C DAY MANAGEMENT >30 MINS Diagnoses UTI (urinary tract infection) N39.0 Nausea & vomiting R11.2 Altered mental status R41.82 History of pulmonary embolism Z86.711 Diabetes E11.9; Z79.4 Diabetes mellitus complication status: without complication Diabetes mellitus detention insulin use: with exterminator helper termite use Diabetes mellitus type: type 2 GERD (gastroesophageal reflux disease) K21.9 Schizoaffective disorder F25.1 Schizoaffective disorder type: depressive Restless leg G25.81
== END 2022-07-28 13:16 | disposition home or self-care (01) | DRG 689 ==
LOC: ED 20:14 → 4W 07-25 03:31 → SUATTDRO 07-25 03:31 → 4W 07-25 05:11

== ENCOUNTER 2022-09-18 14:37 | Inpatient (IN) ==
[2022-09-18] MEDS ORDERED: SODIUM CHLORIDE 0.9% 1000ML 2,000 ML IV ONE (17:09)
[2022-09-18 18:01] LABS: Basophils # (auto) 0.06 K/uL (0-0.2); Basophils % (auto) 0.8 %; Eosinophils # (auto) 0.13 K/uL (0-0.50); Eosinophils % (auto) 1.8 %; Hematocrit (blood only) 51.7 % (34.1-44.9); Hemoglobin 17.5 g/dl (12.0-16.0); Immature Granulocytes # (auto) 0.06 K/uL (0.00-0.02); Immature Granulocytes % (auto) 0.8 %; Lymphocytes # (auto) 2.25 K/uL (1.2-3.4); Lymphocytes % (auto) 30.5 %; Mean Corpuscular Hemoglobin 32.3 pg (25.0-34.0); Mean Corpuscular Hgb Conc 33.8 g/dL (32.0-36.0); Mean Corpuscular Volume 95.6 fL (80.0-100.0); Mean Platelet Volume 10.7 fL (9.4-12.3); Monocytes # (auto) 0.52 K/uL (0.24-0.82); Neutrophils # (auto) 4.36 K/uL (1.4-6.5); Neutrophils % (auto) 59.1 %; Platelet Count 197 K/uL (130-400); RDW Coefficient of Variation 12.6 % (11.5-14.5); RDW Standard Deviation 43.9 fL (36.4-46.3); Red Blood Count 5.41 M/uL (3.93-5.22); White Blood Count 7.38 K/ul (4.8-10.8)
[2022-09-18 18:07] LABS: iSTAT Hemoglobin 15.6 g/dl (12.0-16.0); iSTAT Ionized Calcium 1.12 mmol/l (1.12-1.32); iSTAT Potassium 4.1 mmol/L (3.3-5.0)
[2022-09-18 18:15] LABS: Albumin Level 3.8 gm/dl (3.4-5.0); BUN Creatinine Ratio 4.3 (10-20); Bilirubin,Total 0.7 mg/dl (0.2-1.0); Calcium 9.2 mg/dl (8.5-10.1); Creatinine Clr Calc Pharmacy 56.3 ml/min; Est GFR (African American) 58.2 ml/min; Est GFR (Non-African American) 50.2 ml/min; Globulin 3.7 gm/dl (2.5-4.0); Total Protein 7.5 gm/dl (6.0-8.3)
--- NOTE | 2022-09-18 18:23 | Emergency Department Note ---
Impression & Plan Abdominal pain, Acute hypotension, Tachycardia, Vomiting ED Provider Note NAME: SID JAVIER AGE: 66 SEX: F : 1955 ARRIVES VIA: Ambulance INFORMANT: Patient ED PROVIDER(S): Phong Ryder DO CHIEF COMPLAINT: abdominal pain HPI: Patient is a 66-year-old female with a past medical history of nausea, vomiting, UTIs, morbid obesity, pulmonary edema, lactic acidosis, GERD, IBS and schizoaffective disorder who presents to the ER for abdominal pain which started earlier this morning associate with nausea, vomiting, and diarrhea. Denies any dysuria, urgency, or frequency. Pain is crampy pain in her lower abdomen. It is sharp and stabbing. 8 out of 10. She does feel very weak and rundown. She notes that she gets this multiple times throughout the month. She has not been diagnosed with anything specific because of this. She is taking Xarelto. ROS: See above HPI for pertinent positives & negatives. A total of 10 systems reviewed and were otherwise negative. PAST MEDICAL HISTORY:See Below PAST SURGICAL HISTORY:See Below FAMILY HISTORY:See Below SOCIAL HISTORY:See Below HOME MEDICATIONS:See Below ALLERGIES:See Below VITALS:See Below PHYSICAL EXAMINATION: GENERAL: Sitting up in bed, alert, ill-appearing, diaphoretic EYE EXAM: normal conjunctiva. PERRL and EOM's grossly intact. OROPHARYNX: no exudate, no erythema, lips, buccal mucosa, and tongue normal and mucous membranes are moist NECK: supple, no nuchal rigidity, no adenopathy, non-tender LUNGS: Clear to auscultation. Normal chest wall mechanics HEART: no murmurs, S1 normal and S2 normal ABDOMEN: abdomen soft, mild tenderness periumbilically, normo-active bowel sounds, no masses, no rebound or guarding. UPPER EXTREMITIES: upper extremities are grossly normal. LOWER EXTREMITIES: No pitting edema. NEURO EXAM: Normal sensorium, cranial nerves II-XII grossly intact, normal sp eech, no gross weakness of arms, no gross weakness of legs. MEDICAL DECISION MAKING: Patient is a 66-year-old female who presents ER for nausea vomiting abdominal pain and weakness. IV was established blood work was obtained. Patient was found to be hypotensive with systolic pressures in the 90s and tachycardic with a heart rate in the 120s. Labs show no significant leukocytosis and hemoglobin of 17 which is likely secondary to dehydration. BMP with mild hyponatremia, but remainder of BMP was unremarkable. LFTs bilirubin was unremarkable as well. Lipase slightly up at 175. UA was contaminated. COVID was negative. CT abdomen pelvis showed no acute pathology. She was given Zofran and 2 L IV fluids. Systolic pressures trended up and heart rate trended down. She still was not feeling well and very tired. She was updated bedside discussed with the hospitalist admitted for further work-up. Triage Nursing notes reviewed. Limited review of prior medical records performed Vital Signs: reviewed and remarkable for tachy and hypotensive Differential diagnosis: Differential diagnoses includes but is not limited to toxic, metabolic, infectious, traumatic, cardiac, neurologic, hematologic, psychiatric and inflammatory etiologies. ER treatment provided: See below Diagnostics interpreted by me: ECG: Sinus tachycardia rate 122 Right axis Right bundle branch block QTC [address] ST depressions in the inferior leads and lateral leads No significant change from previous 2 weeks ago Cardiac Monitoring: An order was placed for continuous cardiac monitoring. The monitor shows a rate of 120 with sinus rhythm. Laboratory studies: As stated above and show below. Imaging studies: CT abdomen pelvis as described above Consultation(s): Discussed with [facility] for further evaluation [facility] Procedures: none Critical Care: None Past Med/Surg History Medical History Acute hyponatremia Anemia Anxiety and depression Arthritis Aspiration pneumonia Chronic diarrhea Diabetes Folate deficiency GERD (gastroesophageal reflux disease) History of pulmonary embolism Hyperparathyroidism Hypomagnesemia Hypothyroid Hypoxia Iron deficiency anemia Irritable bowel syndrome Nausea & vomiting Restless leg Schizoaffective disorder Smoking Vomiting and diarrhea Weakness Surgical History History of section x2 Family History Denies family history of Inflammatory bowel disease Social History Smoking Status: Current every day smoker Tobacco Type: Cigarettes Cigarettes Per Day: 2-3 packs; Second Hand Exposure: No; Hx Alcohol Use: No Hx Substance Use: No Preferred Language: Belgian Communication Ability: Effective 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 Beliefs That Will Affect Care: None marital status: Current Living Situation: Other Current Living Situation Comment: pt daughter lives with her How many Children do You have: 2 Feels Safe at Home: Yes Assistive Devices: Walker Allergies Allergies Allergy/AdvReac Type Severity Reaction Status Date / Time egg AdvReac Severe Vomiting Verified 08/22/22 22:04 Penicillins AdvReac Severe Vomiting Verified 08/22/22 22:04 Home Meds Home Medications Medication Instructions Recorded Confirmed buspirone 15 mg tablet 15 mg PO TID 10/25/20 08/22/22 ozujpk-[id number]-yorjedn 1 cap PO TID 10/25/20 08/22/22 12,000-38,000-60,000 unit capsule,delayed rel (Creon) pantoprazole 40 mg tablet,delayed 40 mg PO QAM 10/25/20 08/22/22 release (Protonix) rivaroxaban 20 mg tablet (Xarelto) 20 mg PO QAM 10/25/20 08/22/22 escitalopram oxalate 20 mg tablet 20 mg PO QAM 03/18/21 08/22/22 (Lexapro) ropinirole 0.5 mg tablet 0.5 mg PO HS 03/18/21 08/22/22 divalproex 500 mg tablet,extended 1,500 mg PO HS 06/03/21 08/22/22 release 24 hr (Depakote ER) ferrous sulfate 325 mg (65 mg 325 mg PO Q OTHER DAY 06/03/21 08/22/22 iron) tablet (Iron (ferrous sulfate)) cyanocobalamin (vitamin B-12) 1,000 mcg PO BID 08/05/21 08/22/22 1,000 mcg tablet (Vitamin B-12) loratadine 10 mg tablet (Allergy 10 mg PO QAM 08/05/21 08/22/22 Relief (loratadine)) thiamine HCl (vitamin B1) 100 mg 100 mg PO BID 10/11/21 08/22/22 tablet (Vitamin B-1) levothyroxine 50 mcg tablet 50 mcg PO QAM 01/21/22 08/22/22 ondansetron HCl 4 mg tablet 4 mg PO Q8 PRN Nausea And Vomiting 02/02/22 08/22/22 famotidine 20 mg tablet 20 mg PO DAILY 02/25/22 08/22/22 clonazepam 1 mg tablet 1 mg PO TID PRN Anxiety 06/16/22 08/22/22 benztropine 0.5 mg tablet 0.5 mg PO BID 07/25/22 08/22/22 cholestyramine (with sugar) 4 gram 1 ea PO BID 07/25/22 08/22/22 powder for susp in a packet (Questran) gabapentin 100 mg capsule 100 mg PO UD 07/25/22 08/22/22 metformin 500 mg tablet 500 mg PO BID 07/25/22 08/22/22 quetiapine 400 mg tablet 400 mg PO HS 07/25/22 08/22/22 Previous Rx's Medication Instructions Recorded magnesium oxide 400 mg (241.3 mg 400 mg PO BID #60 tabs 04/07/22 magnesium) tablet folic acid 1 mg tablet 1 mg PO QAM #30 tabs 04/14/22 glipizide 5 mg tablet 5 mg PO BID #60 tabs 06/21/22 sennosides 8.6 mg-docusate sodium 1 tab-cap PO DAILY PRN 08/23/22 50 mg tablet (Senna-Time S) constipation #30 tabs ondansetron 4 mg disintegrating 4 mg PO Q6 PRN nausea and vomiting 08/31/22 tablet #30 tabs Results & Data (ED) Vital Signs Vital Signs - 24 hr 09/18/22 14:42 09/18/22 17:00 09/18/22 17:09 Temperature 37.1 C Temperature Source Oral Pulse Rate 122 H 111 H Pulse Rate [Finger] 111 H Respiratory Rate 20 20 20 Respiratory Effort / Characteristics Spontaneous Respiratory Depth Respiratory Pattern Blood Pressure 90/54 L Blood Pressure [Right Arm] 119/73 Blood Pressure Mean 66 Blood Pressure Mean [Right Arm] 88 Blood Pressure Position [Right Arm] Pulse Oximetry 93 94 94 Oxygen Delivery Method Room Air Nasal Cannula Nasal Cannula Oxygen Flow Rate 2 2 Sepsis Recent Fever Within 48 Hours No Sepsis New/Unexplained Change in Mental Status No Sepsis Action Taken by Nursing No Action Required 09/18/22 20:20 Temperature 37.7 C H Temperature Source Oral Pulse Rate Pulse Rate [Finger] 95 H Respiratory Rate 18 Respiratory Effort / Characteristics Non-Labored Spontaneous Respiratory Depth Normal Respiratory Pattern Regular Blood Pressure Blood Pressure [Right Arm] 104/65 Blood Pressure Mean Blood Pressure Mean [Right Arm] 78 Blood Pressure Position [Right Arm] Semi-fowlers Pulse Oximetry 95 Oxygen Delivery Method Room Air Oxygen Flow Rate Sepsis Recent Fever Within 48 Hours Sepsis New/Unexplained Change in Mental Status Sepsis Action Taken by Nursing Laboratory Data Result diagrams: 09/18/22 16:01 09/18/22 16:01 Lab Results 09/18/22 09/18/22 09/18/22 Range/Units 16:01 16:01 17:54 WBC 7.38 (4.8-10.8) K/ul RBC 5.41 H (3.93-5.22) M/uL Hgb 17.5 H (12.0-16.0) g/dl POC Hgb 15.6 (12.0-16.0) g/dl Hct 51.7 H (34.1-44.9) % POC Hct 46 (37-47) % MCV 95.6 (80.0-100.0) fL MCH 32.3 (25.0-34.0) pg MCHC 33.8 (32.0-36.0) g/dL RDW Std Deviation 43.9 (36.4-46.3) fL RDW Coeff of [place] 12.6 (11.5-14.5) % Plt Count 197 (130-400) K/uL MPV 10.7 (9.4-12.3) fL Immature Gran % (Auto) 0.8 % Neut % (Auto) 59.1 % Lymph % (Auto) 30.5 % [place] % (Auto) 7.0 % Eos % (Auto) 1.8 % Baso % (Auto) 0.8 % Neut # (Auto) 4.36 (1.4-6.5) K/uL Lymph # (Auto) 2.25 (1.2-3.4) K/uL [place] # (Auto) 0.52 (0.24-0.82) K/uL Eos # (Auto) 0.13 (0-0.50) K/uL Baso # (Auto) 0.06 (0-0.2) K/uL Immature Gran # (Auto) 0.06 H (0.00-0.02) K/uL POC Sodium 135 (135-144) mmol/L Sodium 133 L (136-145) mmol/L POC Potassium 4.1 (3.3-5.0) mmol/L Potassium 4.0 (3.5-5.1) mmol/L POC Chloride 102 (101-112) mmol/L Chloride 98 (98-107) mmol/L Carbon Dioxide 21 (21-32) mmol/L POC Total CO2 18 L (24-31) mmol/L Anion Gap 14 H (3-11) POC Anion Gap 20.0 (16-25) mmol/L POC BUN 5 L (7-18) mg/dl BUN 5 L (6-23) mg/dl Creatinine 1.15 (0.6-1.2) mg/dl POC Creatinine 1.0 (0.6-1.3) mg/dl Est Cr Clr Drug Dosing 56.3 ml/min Est GFR ( Amer) 58.2 ml/min Est GFR (Non-Af Amer) 50.2 ml/min BUN/Creatinine Ratio 4.3 L (10-20) Glucose 156 H (70-99(Fasting)) mg/dl POC Glucose (other) 137 H (70-99) mg/dl Calcium 9.2 (8.5-10.1) mg/dl POC Ioniz Calcium Christina 1.12 (1.12-1.32) mmol/l Total Bilirubin 0.7 (0.2-1.0) mg/dl AST 41 H (13-39) U/L ALT 20 (7-52) U/L Alkaline Phosphatase 118 H (34-104) U/L Total Protein 7.5 (6.0-8.3) gm/dl Albumin 3.8 (3.4-5.0) gm/dl Globulin 3.7 (2.5-4.0) gm/dl Albumin/Globulin Ratio 1.0 (0.9-2) Lipase 175 H (11-82) U/L Urine Color Urine Appearance (Clear) Urine pH (4.5-7.5) Ur Specific [place] (1.000-1.030) Urine Protein (Negative) Urine Glucose (UA) (Negative) Urine Ketones (Negative) Urine Blood (Negative) Urine Nitrite (Negative) Urine Bilirubin (Negative) Urine Urobilinogen (Negative) Ur Leukocyte Esterase (Negative) Urine WBC (Auto) (0-5) /hpf Urine RBC (Auto) (0-4) /hpf U Hyaline Cast (Auto) (0-5) /lpf U Epithel Cells (Auto) (0-5) /lpf Urine Bacteria (Auto) (Negative) SARS-CoV-2, RNA, NAAT (NEGATIVE) 09/18/22 09/18/22 Range/Units 18:56 20:43 WBC (4.8-10.8) K/ul RBC (3.93-5.22) M/uL Hgb (12.0-16.0) g/dl POC Hgb (12.0-16.0) g/dl Hct (34.1-44.9) % POC Hct (37-47) % MCV (80.0-100.0) fL MCH (25.0-34.0) pg MCHC (32.0-36.0) g/dL RDW Std Deviation (36.4-46.3) fL RDW Coeff of [place] (11.5-14.5) % Plt Count (130-400) K/uL MPV (9.4-12.3) fL Immature Gran % (Auto) % Neut % (Auto) % Lymph % (Auto) % [place] % (Auto) % Eos % (Auto) % Baso % (Auto) % Neut # (Auto) (1.4-6.5) K/uL Lymph # (Auto) (1.2-3.4) K/uL [place] # (Auto) (0.24-0.82) K/uL Eos # (Auto) (0-0.50) K/uL Baso # (Auto) (0-0.2) K/uL Immature Gran # (Auto) (0.00-0.02) K/uL POC Sodium (135-144) mmol/L Sodium (136-145) mmol/L POC Potassium (3.3-5.0) mmol/L Potassium (3.5-5.1) mmol/L POC Chloride (101-112) mmol/L Chloride (98-107) mmol/L Carbon Dioxide (21-32) mmol/L POC Total CO2 (24-31) mmol/L Anion Gap (3-11) POC Anion Gap (16-25) mmol/L POC BUN (7-18) mg/dl BUN (6-23) mg/dl Creatinine (0.6-1.2) mg/dl POC Creatinine (0.6-1.3) mg/dl Est Cr Clr Drug Dosing ml/min Est GFR ( Amer) ml/min Est GFR (Non-Af Amer) ml/min BUN/Creatinine Ratio (10-20) Glucose (70-99(Fasting)) mg/dl POC Glucose (other) (70-99) mg/dl Calcium (8.5-10.1) mg/dl POC Ioniz Calcium Christina (1.12-1.32) mmol/l Total Bilirubin (0.2-1.0) mg/dl AST (13-39) U/L ALT (7-52) U/L Alkaline Phosphatase (34-104) U/L Total Protein (6.0-8.3) gm/dl Albumin (3.4-5.0) gm/dl Globulin (2.5-4.0) gm/dl Albumin/Globulin Ratio (0.9-2) Lipase (11-82) U/L Urine Color Dark Yellow Urine Appearance Cloudy A (Clear) Urine pH 5.5 (4.5-7.5) Ur Specific [place] 1.022 (1.000-1.030) Urine Protein Trace H (Negative) Urine Glucose (UA) Negative (Negative) Urine Ketones 1+ H (Negative) Urine Blood Negative (Negative) Urine Nitrite Negative (Negative) Urine Bilirubin 1+ H (Negative) Urine Urobilinogen Negative (Negative) Ur Leukocyte Esterase 2+ H (Negative) Urine WBC (Auto) 10-30 H (0-5) /hpf Urine RBC (Auto) 0-4 (0-4) /hpf U Hyaline Cast (Auto) 0 (0-5) /lpf U Epithel Cells (Auto) >30 H (0-5) /lpf Urine Bacteria (Auto) 1+ H (Negative) SARS-CoV-2, RNA, NAAT NEGATIVE (NEGATIVE) Administered Medications Discontinued Medications Sodium Chloride (Nss 1000ml) 2,000 mls @ 999 mls/hr IV .Q2H1M ONE Stop: 09/18/22 19:09 Last Infusion: 09/18/22 22:12 Dose: 0 mls/hr Documented By: Admin: 09/18/22 17:56 Dose: 999 mls/hr Documented By: QGV Ceftriaxone Sodium (Rocephin) 2,000 mg in 70 mls @ 140 mls/hr IV NOW STA Stop: 09/18/22 21:07 Last Infusion: 09/18/22 22:11 Dose: 0 mls/hr Documented By: Admin: 09/18/22 21:32 Dose: 140 mls/hr Documented By: SIDDHARTH Ioversol (Optiray 350 100ml) 88 ml IV ONCE ONE Stop: 09/18/22 20:00 Last Admin: 09/18/22 19:59 Dose: 88 ml Documented By: [facility] Imaging Data Radiologist's Impression: Abdomen/Pelvis CT 09/18/22 17:09 CT OF THE ABDOMEN AND PELVIS WITH CONTRAST CLINICAL HISTORY: Abdominal pain and vomiting. COMPARISON STUDY: CT of the abdomen and pelvis and abdominal series August 31, 2022 TECHNIQUE: Following IV administration Optiray, axial images of the abdomen and pelvis were obtained from the lung bases to the proximal femurs. Images were reviewed in the axial, sagittal, and coronal planes. Infiltration at the IV site was noted. Automated exposure control was utilized for the study. A dose lowering technique was utilized adhering to the principles of ALARA. CT DOSE: 1523.56 mGy.cm FINDINGS: Vascular opacification is suboptimal given IV infiltrate. Lung bases are unremarkable. No pneumatosis, free air or portal venous gas is present. Mild biliary ductal dilatation is unchanged and likely related to cholecystectomy. Unenhanced images of the spleen, adrenal glands and kidneys are normal. No renal, ureteral or bladder calculi are present. There is no hydronephrosis. There is no evidence for a bowel obstruction. Hyperdense material within the appendix is again noted. The appendix is mildly dilated however there is no adjacent infiltration and the appearance of the [facility]. There is no evidence for acute appendicitis. No ascites is present. There is no lymphadenopathy. Moderate amount of poorly formed stool within the colon is present. No acute fracture within the lumbar spine, pelvis or hips is identified. IMPRESSION: 1. No acute process within the abdomen or pelvis. 2. No bowel obstruction. No significant change since prior exam. 3. Suboptimal vascular opacification due to IV infiltration. ACT 112: Negative or not required by law. Electronically signed by: Bryn East M.D. 09/18/2022 8:15 PM Discharge Plan Visit Data Chief Complaint: Vomiting Stated Complaint: WEAKNESS ED Provider: Phong Ryder Discharge Problem: Abdominal pain, Acute hypotension, Tachycardia, Vomiting Patient Disposition: Admitted As Inpatient Discharge Instructions Interventions: ED Discharge Assessment Last Done: 09/18/22 22:17
[2022-09-18 19:34] LABS: Appearance Urine Cloudy (Clear); Bacteria Urine Automated 1+ (Negative); Blood Urine Negative (Negative); Color Urine Dark Yellow; Epithelial Cell Urine Auto >30 /lpf (0-5); Glucose Urine UA Negative (Negative); Ketones Urine 1+ (Negative); Leukocyte Esterase Urine 2+ (Negative); Nitrite Urine Negative (Negative); Protein Urine Trace (Negative); Specific Gravity Urine 1.022 (1.000-1.030); Urobilinogen Urine Negative (Negative); pH Urine 5.5 (4.5-7.5)
[2022-09-18] MEDS ORDERED: OPTIRAY 350 100ml IV ONE (19:59)
--- NOTE | 2022-09-18 20:17 | CT Scan Report ---
CT OF THE ABDOMEN AND PELVIS WITH CONTRAST CLINICAL HISTORY: Abdominal pain and vomiting. COMPARISON STUDY: CT of the abdomen and pelvis and abdominal series August 31, 2022 TECHNIQUE: Following IV administration Optiray, axial images of the abdomen and pelvis were obtained from the lung bases to the proximal femurs. Images were reviewed in the axial, sagittal, and coronal planes. Infiltration at the IV site was noted. Automated exposure control was utilized for the study . A dose lowering technique was utilized adhering to the principles of ALARA. CT DOSE: 1523.56 mGy.cm FINDINGS: Vascular opacification is suboptimal given IV infiltrate. Lung bases are unremarkable. No p neumatosis, free air or portal venous gas is present. Mild biliary ductal dilatation is unchanged and likely related to cholecystectomy. Unenhanced images of the spleen, adrenal glands and kidneys are n ormal. No renal, ureteral or bladder calculi are present. There is no hydronephrosis. There is no samson dence for a bowel obstruction. Hyperdense material within the appendix is again noted. The appendix i s mildly dilated however there is no adjacent infiltration and the appearance of the appendix is unch anged from earlier exams. There is no evidence for acute appendicitis. No ascites is present. There i s no lymphadenopathy. Moderate amount of poorly formed stool within the colon is present. No acute fr acture within the lumbar spine, pelvis or hips is identified. IMPRESSION: 1. No acute process within the abdomen or pelvis. 2. No bowel obstruction. No significant change since prior exam. 3. Suboptimal vascular opacification due to IV infiltration. ACT 112: Negative or not required by law. Electronically signed by: Bryn East M.D. 09/18/2022 8:15 PM
[2022-09-18] MEDS ORDERED: cefTRIAXone SODIUM 2,000 MG/70 ML BAG IV STA (20:38)
[2022-09-18 20:43] LABS: Bilirubin Urine 1+ (Negative)
[2022-09-18 20:59] LABS: Cast Urine Automated 0 /lpf (0-5); RBC Urine Automated 0-4 /hpf (0-4)
--- NOTE | 2022-09-18 21:11 | History & Physical Report ---
Date of Service September 18, 2022 Assessment & Plan (1) Nausea & vomiting: Plan: Etiology uncertain. Patient reports sick contacts with similar symptoms. ?Viral gastroenteritis. Symptoms seem to be improving -Symptomatic management -IVF and electrolyte repletion -Zofran as needed (2) UTI (urinary tract infection): Plan: Patient afebrile, HD stable at present -Follow urine culture -Ceftriaxone 2gm IV daily -Tylenol PRN (3) History of pulmonary embolism: Plan: Patient is on Xarelto -Continue (4) Schizoaffective disorder: Plan: Patient reports stable moods. Continue Cogentin Continue Divalroex -Continue Seroquel ?Anxiety -Continue Buspar and Clonazepam PRN -Continue Escitaloopram (5) Restless leg: Plan: Chronic -Continue Requip (6) Hypothyroid: Plan: Chronic -Check TSH with AM labs -Continue Synthroid (7) GERD (gastroesophageal reflux disease): Plan: Chronic. Well controlled -Continue Protonix 40mg po daily F/E/N -LR at 80mL/hr x 2 liters, monitor electrolytes, Clear liquid diet - advance as tolerated Ppx - Code - Full Dispo - Admit to medical with tele History of Present Illness Chief Complaint: abdominal pain, nausea, vomiting, diarrhea Primary Care Provider: Dylan Fuentes PA-C Tierra Gil is a 66yo female with history of DM, GERD, PE and schizoaffective disorder presents with 1-2 days of nausea, vomiting and diarrhea. Patient reports diffuse abdominal discomfort as well as nausea with several episodes of non-bloody/non-bilious emesis with last episode of vomiting in the ER. She has also had several episodes of diarrhea, non-bloody but some bright red blood noted on the toilet paper after wiping (patient states this is common with her hemorrhoids). She has not been able to tolerate oral intake. Patient states that she gets similar symptoms multiple times throughout the month. She does report sick contacts - school-aged grandchildren with similar symptoms of nausea and vomiting. Additionally reports some urinary symptoms over the last several days - frequency/urgency and incontinence. She was taking OTC AZO pills for symptomatic relief. She denies fever but has had some chills. Denies chest pain. Has stable cough and baseline SOB which is unchanged. She has some left shoulder pain No additional complaints at this time In the ER she has elevated temperature at 37.7, mildly hypotensive at 94/57. ER Course: NSS x 2L, Ceftriaxone 2gm Allergies Allergy/AdvReac Type Severity Reaction Status Date / Time egg AdvReac Severe Vomiting Verified 08/22/22 22:04 Penicillins AdvReac Severe Vomiting Verified 08/22/22 22:04 Home Medications Medication Instructions Recorded Confirmed Type buspirone 15 mg tablet 15 mg PO TID 10/25/20 08/22/22 History [id number]-[id number]-rohduzc 1 cap PO TID 10/25/20 08/22/22 History 12,000-38,000-60,000 unit capsule,delayed rel (Creon) pantoprazole 40 mg tablet,delayed 40 mg PO QAM 10/25/20 08/22/22 History release (Protonix) rivaroxaban 20 mg tablet (Xarelto) 20 mg PO QAM 10/25/20 08/22/22 History escitalopram oxalate 20 mg tablet 20 mg PO QAM 03/18/21 08/22/22 History (Lexapro) ropinirole 0.5 mg tablet 0.5 mg PO HS 03/18/21 08/22/22 History divalproex 500 mg tablet,extended 1,500 mg PO HS 06/03/21 08/22/22 History release 24 hr (Depakote ER) ferrous sulfate 325 mg (65 mg 325 mg PO Q OTHER DAY 06/03/21 08/22/22 History iron) tablet (Iron (ferrous sulfate)) cyanocobalamin (vitamin B-12) 1,000 mcg PO BID 08/05/21 08/22/22 History 1,000 mcg tablet (Vitamin B-12) loratadine 10 mg tablet (Allergy 10 mg PO QAM 08/05/21 08/22/22 History Relief (loratadine)) thiamine HCl (vitamin B1) 100 mg 100 mg PO BID 10/11/21 08/22/22 History tablet (Vitamin B-1) levothyroxine 50 mcg tablet 50 mcg PO QAM 01/21/22 08/22/22 History ondansetron HCl 4 mg tablet 4 mg PO Q8 PRN Nausea And Vomiting 02/02/22 08/22/22 History famotidine 20 mg tablet 20 mg PO DAILY 02/25/22 08/22/22 History magnesium oxide 400 mg (241.3 mg 400 mg PO BID #60 tabs 04/07/22 08/22/22 Rx magnesium) tablet folic acid 1 mg tablet 1 mg PO QAM #30 tabs 04/14/22 08/22/22 Rx clonazepam 1 mg tablet 1 mg PO TID PRN Anxiety 06/16/22 08/22/22 History glipizide 5 mg tablet 5 mg PO BID #60 tabs 06/21/22 08/22/22 Rx benztropine 0.5 mg tablet 0.5 mg PO BID 07/25/22 08/22/22 History cholestyramine (with sugar) 4 gram 1 ea PO BID 07/25/22 08/22/22 History powder for susp in a packet (Questran) gabapentin 100 mg capsule 100 mg PO UD 07/25/22 08/22/22 History metformin 500 mg tablet 500 mg PO BID 07/25/22 08/22/22 History quetiapine 400 mg tablet 400 mg PO HS 07/25/22 08/22/22 History sennosides 8.6 mg-docusate sodium 1 tab-cap PO DAILY PRN 08/23/22 Rx 50 mg tablet (Senna-Time S) constipation #30 tabs ondansetron 4 mg disintegrating 4 mg PO Q6 PRN nausea and vomiting 08/31/22 Rx tablet #30 tabs Past Med/Surg History Medical History (Updated 09/19/22 @ 02:20 by Alysa Wagner DO) Acute hyponatremia Anemia Anxiety and depression Arthritis Aspiration pneumonia Chronic diarrhea Diabetes Folate deficiency GERD (gastroesophageal reflux disease) History of pulmonary embolism Hyperparathyroidism Hypomagnesemia Hypothyroid Hypoxia Iron deficiency anemia Irritable bowel syndrome Nausea & vomiting Restless leg Schizoaffective disorder Smoking Vomiting and diarrhea Weakness Surgical History History of section x2 Family History Denies family history of Inflammatory bowel disease Social History Smoking Status: Current every day smoker Tobacco Type: Cigarettes Cigarettes Per Day: 80; Second Hand Exposure: No; Hx Alcohol Use: No Hx Substance Use: No Preferred Language: Amharic Communication Ability: Effective Senior 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 Required: No Beliefs That Will Affect Care: None marital status: Current Living Situation: Family Current Living Situation Comment: Lives in an appartment with her daughter Marcela How many Children do You have: 2 Other Information That Helps Us Care for You: No Feels Safe at Home: Yes Safety Concerns: Feels Safe At This Time Assistive Devices: Wheelchair Review of Systems Review of Systems: All systems reviewed & are unremarkable except as noted in HPI & below Physical Exam Physical Exam: General: patient resting comfortably, NAD, non-toxic in appearance, AA&O x 4 Skin: warm, dry, intact, no rashes or lesions HEENT: NC/AT, PERRL, EOMI, anicteric sclera, conjunctiva without injection, external ear normal to inspection and nontender, nares patent, moist mucus membranes, dentition intact, no oropharyngeal lesions, neck supple, trachea midline, no LAD, no thyromegaly, no JVD Heart: +S1/S2, regular, no m/r/g Lungs: equal air entry bilaterally, no rales/rhonchi/wheezes Abd: +BS, soft, ND, tender to palpation in lower abdomen without rebound/ guarding or peritonitis, no masses/organomegaly/ascites Ext: warm, 2+ pulses in UE/LE bilaterally, no clubbing/cyanosis or edema Neuro: nonfocal, patient AA&O x 4, speech intact, no facial droop, moving all extremities on command with equal strength 5/5 Results & Data Results & Data ([facility]) Vital Signs (Past 12 Hours) Vital Signs Temp Pulse Pulse Resp BP BP Pulse Ox 09/18/22 20:20 37.7 C H 95 H 18 104/65 95 09/18/22 17:09 111 H 20 94 09/18/22 17:00 111 H 20 119/73 94 09/18/22 14:42 37.1 C 122 H 20 90/54 L 93 O2 Del Method O2 Flow Rate 09/18/22 20:20 Room Air 09/18/22 17:09 Nasal Cannula 2 09/18/22 17:00 Nasal Cannula 2 09/18/22 14:42 Room Air Laboratory Results Laboratory Results WBC 7.38 K/ul (4.8-10.8) 09/18/22 16:01 RBC 5.41 M/uL (3.93-5.22) H 09/18/22 16:01 Hgb 17.5 g/dl (12.0-16.0) H 09/18/22 16:01 POC Hgb 15.6 g/dl (12.0-16.0) 09/18/22 17:54 Hct 51.7 % (34.1-44.9) H 09/18/22 16: POC Hct 46 % (37-47) 09/18/22 17:54 MCV 95.6 fL (80.0-100.0) 09/18/22 16: MCH 32.3 pg (25.0-34.0) 09/18/22 16: MCHC 33.8 g/dL (32.0-36.0) 09/18/22 16: RDW Std Deviation 43.9 fL (36.4-46.3) 09/18/22 16: RDW Coeff of [place] 12.6 % (11.5-14.5) 09/18/22 16: Plt Count 197 K/uL (130-400) 09/18/22 16: MPV 10.7 fL (9.4-12.3) 09/18/22 16: Immature Gran % (Auto) 0.8 % 09/18/22 16: Neut % (Auto) 59.1 % 09/18/22 16:01 Lymph % (Auto) 30.5 % 09/18/22 16: [place]mer % (Auto) 7.0 % 09/18/22 16: Eos % (Auto) 1.8 % 09/18/22 16: Baso % (Auto) 0.8 % 09/18/22 16: Neut # (Auto) 4.36 K/uL (1.4-6.5) 09/18/22 16: Lymph # (Auto) 2.25 K/uL (1.2-3.4) 09/18/22 16: Gilmer # (Auto) 0.52 K/uL (0.24-0.82) 09/18/22 16: Eos # (Auto) 0.13 K/uL (0-0.50) 09/18/22 16: Baso # (Auto) 0.06 K/uL (0-0.2) 09/18/22 16:01 Immature Gran # (Auto) 0.06 K/uL (0.00-0.02) H 09/18/22 16:01 POC Sodium 135 mmol/L (135-144) 09/18/22 17:54 Sodium 133 mmol/L (136-145) L 09/18/22 16:01 POC Potassium 4.1 mmol/L (3.3-5.0) 09/18/22 17:54 Potassium 4.0 mmol/L (3.5-5.1) 09/18/22 16:01 POC Chloride 102 mmol/L (101-112) 09/18/22 17:54 Chloride 98 mmol/L (98-107) 09/18/22 16:01 Carbon Dioxide 21 mmol/L (21-32) 09/18/22 16:01 POC Total CO2 18 mmol/L (24-31) L 09/18/22 17:54 Anion Gap 14 (3-11) H 09/18/22 16:01 POC Anion Gap 20.0 mmol/L (16-25) 09/18/22 17:54 POC BUN 5 mg/dl (7-18) L 09/18/22 17:54 BUN 5 mg/dl (6-23) L 09/18/22 16:01 Creatinine 1.15 mg/dl (0.6-1.2) 09/18/22 16:01 POC Creatinine 1.0 mg/dl (0.6-1.3) 09/18/22 17:54 Est Cr Clr Drug Dosing 56.3 ml/min 09/18/22 16:01 Est GFR ( Amer) 58.2 ml/min 09/18/22 16:01 Est GFR (Non-Af Amer) 50.2 ml/min 09/18/22 16:01 BUN/Creatinine Ratio 4.3 (10-20) L 09/18/22 16:01 Glucose 156 mg/dl (70-99(Fasting)) H 09/18/22 16:01 POC Glucose (other) 137 mg/dl (70-99) H 09/18/22 17:54 Calcium 9.2 mg/dl (8.5-10.1) 09/18/22 16:01 POC Ioniz Calcium Christina 1.12 mmol/l (1.12-1.32) 09/18/22 17:54 Magnesium 1.5 mg/dl (1.7-2.4) L 09/18/22 16:01 Total Bilirubin 0.7 mg/dl (0.2-1.0) 09/18/22 16:01 AST 41 U/L (13-39) H 09/18/22 16:01 ALT 20 U/L (7-52) 09/18/22 16:01 Alkaline Phosphatase 118 U/L (34-104) H 09/18/22 16:01 Total Protein 7.5 gm/dl (6.0-8.3) 09/18/22 16:01 Albumin 3.8 gm/dl (3.4-5.0) 09/18/22 16:01 Globulin 3.7 gm/dl (2.5-4.0) 09/18/22 16:01 Albumin/Globulin Ratio 1.0 (0.9-2) 09/18/22 16:01 Lipase 175 U/L (11-82) H 09/18/22 16:01 Urine Color Dark Yellow 09/18/22 18:56 Urine Appearance Cloudy (Clear) A 09/18/22 18:56 Urine pH 5.5 (4.5-7.5) 09/18/22 18:56 Ur Specific [place] 1.022 (1.000-1.030) 09/18/22 18:56 Urine Protein Trace (Negative) H 09/18/22 18:56 Urine Glucose (UA) Negative (Negative) 09/18/22 18:56 Urine Ketones 1+ (Negative) H 09/18/22 18:56 Urine Blood Negative (Negative) 09/18/22 18:56 Urine Nitrite Negative (Negative) 09/18/22 18:56 Urine Bilirubin 1+ (Negative) H 09/18/22 18:56 Urine Urobilinogen Negative (Negative) 09/18/22 18:56 Ur Leukocyte Esterase 2+ (Negative) H 09/18/22 18:56 Urine WBC (Auto) 10-30 /hpf (0-5) H 09/18/22 18:56 Urine RBC (Auto) 0-4 /hpf (0-4) 09/18/22 18:56 U Hyaline Cast (Auto) 0 /lpf (0-5) 09/18/22 18:56 U Epithel Cells (Auto) >30 /lpf (0-5) H 09/18/22 18:56 Urine Bacteria (Auto) 1+ (Negative) H 09/18/22 18:56 SARS-CoV-2, RNA, NAAT NEGATIVE (NEGATIVE) 09/18/22 20:43 Impressions Abdomen/Pelvis CT 09/18/22 17:09 CT OF THE ABDOMEN AND PELVIS WITH CONTRAST CLINICAL HISTORY: Abdominal pain and vomiting. COMPARISON STUDY: CT of the abdomen and pelvis and abdominal series August 31, 2022 TECHNIQUE: Following IV administration Optiray, axial images of the abdomen and pelvis were obtained from the lung bases to the proximal femurs. Images were reviewed in the axial, sagittal, and coronal planes. Infiltration at the IV site was noted. Automated exposure control was utilized for the study. A dose lowering technique was utilized adhering to the principles of ALARA. CT DOSE: 1523.56 mGy.cm FINDINGS: Vascular opacification is suboptimal given IV infiltrate. Lung bases are unremarkable. No pneumatosis, free air or portal venous gas is present. Mild biliary ductal dilatation is unchanged and likely related to cholecystectomy. Unenhanced images of the spleen, adrenal glands and kidneys are normal. No renal, ureteral or bladder calculi are present. There is no hydronephrosis. There is no evidence for a bowel obstruction. Hyperdense material within the appendix is again noted. The appendix is mildly dilated however there is no adjacent infiltration and the appearance of the appendix is unchanged from earlier exams. There is no evidence for acute appendicitis. No ascites is present. There is no lymphadenopathy. Moderate amount of poorly formed stool within the colon is present. No acute fracture within the lumbar spine, pelvis or hips is identified. IMPRESSION: 1. No acute process within the abdomen or pelvis. 2. No bowel obstruction. No significant change since prior exam. 3. Suboptimal vascular opacification due to IV infiltration. ACT 112: Negative or not required by law. Electronically signed by: Bryn East M.D. 09/18/2022 8:15 PM Code Status & VTE Plan VTE Prophylaxis Plan VTE Prophylaxis will be ordered: Yes PG Care Time/CCT Total # of Minutes Spent Total Time Spent with Patient: Total time spent is greater than 50% in coordination of care (as documented) at patient's floor/unit and/or counseling patient: Coding Level of Care Code 37191 Initial Inpt Care Lvl 3 Diagnoses Nausea & vomiting R11.2 UTI (urinary tract infection) N39.0 History of pulmonary embolism Z86.711 Schizoaffective disorder F25.1 Schizoaffective disorder type: depressive Restless leg G25.81 Hypothyroid E03.9 GERD (gastroesophageal reflux disease) K21.9 (1) Schizoaffective disorder Schizoaffective disorder type: depressive Qualified Code(s): F25.1 - Schizoaffective disorder, depressive type
[2022-09-19] MEDS: ACETAMINOPHEN 325 MG TAB PO PRN ×3 (00:12→22:53)
[2022-09-19] MEDS: LACTATED RINGER'S 1,000 ML IV SCH ×2 (00:13→12:37)
--- NOTE | 2022-09-19 01:03 | Communication Note ---
Date of Service: September 19, 2022 Notified about a moderate left arm IV infiltration. Will apply cold compresses 20 min 3-4x/day) since IV contrast was administered through the line. Hold LR 80mL/hr for now; BP 101/72. Received 2L bolus NSS in ED. Limb restriction in L arm. Obtain IV access in other arm. Next dose of Rocephin will be in ~20 hours.
[2022-09-19] MEDS ORDERED: Nursing to Pharmacy Communication SCH (02:30)
[2022-09-19] MEDS ORDERED: ENOXAPARIN INJ 40 MG/0.4 ML SYR SQ SCH (06:00)
[2022-09-19] MEDS: LEVOTHYROXINE SODIUM 50 MCG TABLET PO SCH (06:30)
[2022-09-19 07:15] LABS: Hematocrit (blood only) 38.3 % (34.1-44.9); Hemoglobin 13.2 g/dl (12.0-16.0); Mean Corpuscular Hgb Conc 34.5 g/dL (32.0-36.0); Mean Corpuscular Volume 92.7 fL (80.0-100.0); Mean Platelet Volume 9.9 fL (9.4-12.3); Platelet Count 174 K/uL (130-400); RDW Coefficient of Variation 12.5 % (11.5-14.5); RDW Standard Deviation 42.5 fL (36.4-46.3); Red Blood Count 4.13 M/uL (3.93-5.22); White Blood Count 7.82 K/ul (4.8-10.8)
[2022-09-19 07:35] LABS: BUN Creatinine Ratio 15.3 (10-20); Calcium 7.9 mg/dl (8.5-10.1); Est GFR (African American) 102.6 ml/min; Est GFR (Non-African American) 88.5 ml/min; Potassium 4.1 mmol/L (3.5-5.1)
[2022-09-19] MEDS ORDERED: GABAPENTIN 100 MG CAP PO SCH ×2 (08:00→21:00)
[2022-09-19] MEDS ORDERED: PANCREAZE (LIPASE 4,200U) CAP PO SCH (09:00)
[2022-09-19] MEDS ORDERED: DEXTROSE 50% 50 ML SYRINGE IV STA (09:31)
[2022-09-19] MEDS: BENZTROPINE MESYLATE 0.5 MG TAB PO SCH ×2 (09:46→22:44)
[2022-09-19] MEDS: THIAMINE HCL 100 MG TAB PO SCH ×2 (09:46→22:44)
[2022-09-19] MEDS: ESCITALOPRAM OXALATE 20 MG TAB PO SCH (09:46)
[2022-09-19] MEDS: PANTOprazole 40 MG TAB PO SCH (09:46)
[2022-09-19] MEDS: CHOLESTYRAMINE LIGHT 4 GM PKT PO SCH (09:46)
[2022-09-19] MEDS: PANCREAZE (LIPASE 4,200U) CAP PO SCH ×3 (09:46→17:02)
[2022-09-19] MEDS: RIVAROXABAN 20 MG TAB PO SCH (09:46)
[2022-09-19] MEDS: busPIRone 15 MG TAB PO SCH ×3 (09:46→22:45)
--- NOTE | 2022-09-19 10:06 | Hospitalist Progress Note ---
Date of Service September 19, 2022 Assessment & Plan (1) Daytime somnolence: Plan: stopped gabapentin and clonazepam this am- nursing report daughter's concern about over medication at home. BS 72- d50 given- change to d5ns from LR watch closely through the day metformin and glipizide on hold since admission (2) Nausea & vomiting: Plan: Etiology uncertain. Now resolved -Symptomatic management -IVF and electrolyte repletion -Zofran as needed (3) UTI (urinary tract infection): Plan: Patient afebrile, HD stable at present -Follow urine culture -Ceftriaxone 2gm IV daily till ucx back -Tylenol PRN (4) History of pulmonary embolism: Plan: Patient is on Xarelto -Continue (5) Schizoaffective disorder: Plan: Patient reports stable moods. Continue Cogentin Continue Divalroex stopped Seroquel this am ?Anxiety -Continue Buspar and Clonazepam PRN -Continue Escitaloopram (6) Restless leg: Plan: Chronic -Continue Requip (7) Hypothyroid: Plan: Chronic -TSH caceptable -Continue Synthroid home dose (8) GERD (gastroesophageal reflux disease): Plan: Chronic. Well controlled -Continue Protonix 40mg po daily F/E/N -LR at 80mL/hr x 2 liters, monitor electrolyte Diet regular once awakens=- ordered. No breakfast today Ppx - Code - Full Dispo- can d/c telemetry OT /PT consulted. Admission and Anticipated Discharge Date Admission Date: September 18, 2022 Subjective no abd pain/ n/vRos limited due tp drowsy state, awakens briefly then sleeps Nursing note v drowsy since morning. Arousable to verbal stimuli but unable to telll where she was until got d50 iv this am after BS 72 aROUND 0920 h. 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, R arm swollen exam limited due to somnolence Psych- unable to assess CVS S1 S2 RRR Abd obese, non tender Results & Data Results & Data ([facility]) Vital Signs (Past 12 Hours) Vital Signs Temp Pulse Pulse Resp BP Pulse Ox O2 Del Method 09/19/22 09:29 36.6 C 73 19 103/68 93 Room Air 09/19/22 06:40 36.6 C 76 20 94/55 L 92 Room Air 09/19/22 06:33 16 93 Room Air 09/18/22 23:06 89 09/19/22 03:10 36.8 C 76 20 92/56 L 93 09/18/22 23:07 37 C 88 16 101/72 95 Nasal Cannula O2 Flow Rate 09/19/22 09:29 09/19/22 06:40 09/19/22 06:33 09/18/22 23:06 09/19/22 03:10 2 09/18/22 23:07 2 PG Care Time/CCT Total # of Minutes Spent Total Time Spent with Patient: Total time spent is greater than 50% in coordination of care (as documented) at patient's floor/unit and/or counseling patient: Coding Level of Care Code 47316 Subseq Hosp Care Lvl 3 Diagnoses Daytime somnolence R40.0 Nausea & vomiting R11.2 UTI (urinary tract infection) N39.0 History of pulmonary embolism Z86.711 Schizoaffective disorder F25.1 Schizoaffective disorder type: depressive Restless leg G25.81 Hypothyroid E03.9 GERD (gastroesophageal reflux disease) K21.9 (1) Schizoaffective disorder Schizoaffective disorder type: depressive Qualified Code(s): F25.1 - Schizoaffective disorder, depressive type
--- NOTE | 2022-09-19 12:41 | Electrocardiogram Report ---
Test Reason : Blood Pressure : / mmHG Vent. Rate : 122 BPM Atrial Rate : 122 BPM P-R Int : 142 ms QRS Dur : 138 ms QT Int : 352 ms P-R-T Axes : 031 128 004 degrees QTc Int : 501 ms Sinus tachycardia Right bundle branch block Left posterior fascicular block T wave abnormality, consider inferior ischemia Abnormal ECG When compared with ECG of 31-AUG-2022 08:39, No significant change was found Confirmed by Sunil Jacobson ([id number]) on 09/19/2022 12:41:29 PM Referred By: REFERRED SELF Confirmed By:Sunil Jacobson
[2022-09-19] MEDS: ONDANSETRON INJ 2 MG/ML 2 ML VIAL IV PRN (12:47)
[2022-09-19] MEDS ORDERED: QUEtiapine FUMARATE 200 MG TAB PO SCH (21:00)
[2022-09-19] MEDS ORDERED: cefTRIAXone SODIUM 2,000 MG in DEXTROSE 5% 50 ML IV SCH (22:00)
[2022-09-19] MEDS: DIVALPROEX EXTENDED RELEASE 500 MG TAB PO SCH (22:45)
[2022-09-19] MEDS: rOPINIRole HCL 0.25 MG TABLET PO SCH (22:45)
[2022-09-20] MEDS: CHOLESTYRAMINE LIGHT 4 GM PKT PO SCH ×3 (00:31→22:30)
[2022-09-20] MEDS: ONDANSETRON INJ 2 MG/ML 2 ML VIAL IV PRN (04:26)
[2022-09-20] MEDS: LEVOTHYROXINE SODIUM 50 MCG TABLET PO SCH (04:40)
[2022-09-20] MEDS: clonazePAM 1 MG TAB PO PRN ×3 (04:40→22:30)
[2022-09-20] MEDS: busPIRone 15 MG TAB PO SCH ×3 (09:12→20:02)
[2022-09-20] MEDS: PANCREAZE (LIPASE 4,200U) CAP PO SCH ×3 (09:12→17:07)
[2022-09-20] MEDS: BENZTROPINE MESYLATE 0.5 MG TAB PO SCH ×2 (09:12→20:01)
[2022-09-20] MEDS: ESCITALOPRAM OXALATE 20 MG TAB PO SCH (09:13)
[2022-09-20] MEDS: RIVAROXABAN 20 MG TAB PO SCH (09:13)
[2022-09-20] MEDS: THIAMINE HCL 100 MG TAB PO SCH ×2 (09:13→20:01)
[2022-09-20] MEDS: PANTOprazole 40 MG TAB PO SCH (09:13)
[2022-09-20] MEDS: ACETAMINOPHEN 325 MG TAB PO PRN (17:23)
[2022-09-20] MEDS: DIVALPROEX EXTENDED RELEASE 500 MG TAB PO SCH (20:01)
[2022-09-20] MEDS: rOPINIRole HCL 0.25 MG TABLET PO SCH (20:01)
--- NOTE | 2022-09-20 20:17 | Hospitalist Progress Note ---
Date of Service September 20, 2022 Assessment & Plan (1) Daytime somnolence: Plan: Resolved since stopped gabapentin and clonazepam yesterday as well as Seroquel. Resume Seroquel 400 mg at bedtime today 101,186, 109-metformin resumed at half dose 500 mg twice daily continue to hold glipizide (2) Nausea & vomiting: Plan: Etiology uncertain. Now resolved (3) UTI (urinary tract infection): Plan: Patient afebrile, HD stable at present Urine culture shows contaminationstopped ceftriaxone (4) History of pulmonary embolism: Plan: Patient is on Xarelto -Continue (5) Schizoaffective disorder: Plan: Patient reports stable moods. Continue Cogentin Continue Divalroex stopped Seroquel this am ?Anxiety -Continue Buspar and Clonazepam PRN -Continue Escitaloopram (6) Restless leg: Plan: Chronic -Continue Requip (7) Hypothyroid: Plan: Chronic -TSH ok -Continue Synthroid home dose (8) GERD (gastroesophageal reflux disease): Plan: Chronic. Well controlled -Continue Protonix 40mg po daily Admission and Anticipated Discharge Date Admission Date: September 18, 2022 Anticipated date of discharge: 09/21/22 Subjective Patient was seen around 1730 hrs. today awake and alert. She states she is having a good day. Appetite is good. She cried last night because she could not sleep. She was somnolent all day. Wonders if she can go home tomorrow. Smokes 3 and half pack of cigarettes a day and states the nicotine gum helps but she cannot afford it. She has never tried medical insurance for it has baseline dyspnea on exertion unchanged recently uses a walker and no recent falls. Physical Exam Physical Exam: severely obese, lying in bed, talkative, dinner almost completely finished endplates on bedside Head and neck edentulous, moist oral mucosa [employer] RELATIONS : Gait not tested, walker seen at bedside Psych-cheerful, adequate insight CVS S1 S2 RRR Abd obese, non tender Results & Data Results & Data ([facility]) Vital Signs (Past 12 Hours) Vital Signs Temp Pulse Resp BP Pulse Ox O2 Del Method 09/20/22 15:46 36.7 C 75 19 99/61 L 93 Room Air 09/20/22 11:54 36.7 C 70 21 117/74 91 Room Air Laboratory Results Abnormal lab results 09/20/22 09/20/22 09/20/22 Range/Units 07:41 11:41 16:30 POC Glucose 109 H 101 H 186 H (70-99) mg/dl Medications Administered Home Medications Medication Instructions Recorded Confirmed Last Taken buspirone 15 mg tablet 15 mg PO TID 10/25/20 08/22/22 08/21/22 [id number] 1 cap PO TID 10/25/20 08/22/22 08/21/22 12,000-38,000-60,000 unit capsule,delayed rel (Creon) pantoprazole 40 mg tablet,delayed 40 mg PO QAM 10/25/20 08/22/22 08/21/22 release (Protonix) rivaroxaban 20 mg tablet (Xarelto) 20 mg PO QAM 10/25/20 08/22/22 08/21/22 escitalopram oxalate 20 mg tablet 20 mg PO QAM 03/18/21 08/22/22 08/21/22 (Lexapro) ropinirole 0.5 mg tablet 0.5 mg PO HS 03/18/21 08/22/22 08/21/22 divalproex 500 mg tablet,extended 1,500 mg PO HS 06/03/21 08/22/22 08/21/22 release 24 hr (Depakote ER) ferrous sulfate 325 mg (65 mg 325 mg PO Q OTHER DAY 06/03/21 08/22/22 08/21/22 iron) tablet (Iron (ferrous sulfate)) cyanocobalamin (vitamin B-12) 1,000 mcg PO BID 08/05/21 08/22/22 08/21/22 1,000 mcg tablet (Vitamin B-12) loratadine 10 mg tablet (Allergy 10 mg PO QAM 08/05/21 08/22/22 08/21/22 Relief (loratadine)) thiamine HCl (vitamin B1) 100 mg 100 mg PO BID 10/11/21 08/22/22 08/21/22 tablet (Vitamin B-1) levothyroxine 50 mcg tablet 50 mcg PO QAM 01/21/22 08/22/22 08/21/22 ondansetron HCl 4 mg tablet 4 mg PO Q8 PRN Nausea And Vomiting 02/02/22 08/22/22 Unknown famotidine 20 mg tablet 20 mg PO DAILY 02/25/22 08/22/22 08/21/22 magnesium oxide 400 mg (241.3 mg 400 mg PO BID #60 tabs 04/07/22 08/22/22 08/21/22 magnesium) tablet folic acid 1 mg tablet 1 mg PO QAM #30 tabs 04/14/22 08/22/22 08/21/22 clonazepam 1 mg tablet 1 mg PO TID PRN Anxiety 06/16/22 08/22/22 08/21/22 2 MG glipizide 5 mg tablet 5 mg PO BID #60 tabs 06/21/22 08/22/22 08/21/22 benztropine 0.5 mg tablet 0.5 mg PO BID 07/25/22 08/22/22 08/21/22 cholestyramine (with sugar) 4 gram 1 ea PO BID 07/25/22 08/22/22 08/21/22 powder for susp in a packet (Questran) gabapentin 100 mg capsule 100 mg PO UD 07/25/22 08/22/22 08/21/22 metformin 500 mg tablet 500 mg PO BID 07/25/22 08/22/22 08/21/22 quetiapine 400 mg tablet 400 mg PO HS 07/25/22 08/22/22 08/21/22 sennosides 8.6 mg-docusate sodium 1 tab-cap PO DAILY PRN 08/23/22 Unknown 50 mg tablet (Senna-Time S) constipation #30 tabs ondansetron 4 mg disintegrating 4 mg PO Q6 PRN nausea and vomiting 08/31/22 Unknown tablet #30 tabs Active Medications Generic Name Dose Route Start Last Admin Trade Name Freq PRN Reason Stop Dose Admin Acetaminophen 650 mg 09/18/22 22:45 09/20/22 17:23 Acetaminophen 325 Mg Tab PO 10/18/22 22:44 650 mg Q4H PRN Administration pain/fever Lipase/Protease/Amylase 3 cap 09/19/22 08:00 09/20/22 17:07 Pancreaze (Lipase 4,200u) Cap PO 10/19/22 07:59 3 cap TIDM MARY Administration Benztropine Mesylate 0.5 mg 09/19/22 09:00 09/20/22 20:01 Benztropine Mesylate 0.5 Mg Tab PO 10/19/22 08:59 0.5 mg BID MARY Administration Buspirone HCl 15 mg 09/19/22 09:00 09/20/22 20:02 Buspirone 15 Mg Tab PO 10/19/22 08:59 15 mg TID MARY Administration Cholestyramine Resin 4 gm 09/19/22 10:00 09/20/22 09:14 Cholestyramine Light 4 Gm Pkt PO 10/19/22 09:59 4 gm BID@1000,2200 MARY Administration Clonazepam 1 mg 09/19/22 01:05 09/20/22 12:12 Clonazepam 1 Mg Tab PO 10/19/22 01:04 1 mg TID PRN Administration Anxiety Divalproex Sodium 1,500 mg 09/19/22 21:00 09/20/22 20:01 Divalproex Extended Release 500 Mg Tab PO 10/19/22 20:59 1,500 mg HS MARY Administration Escitalopram Oxalate 20 mg 09/19/22 09:00 09/20/22 09:13 Escitalopram Oxalate 20 Mg Tab PO 10/19/22 08:59 20 mg QAM MARY Administration Ceftriaxone Sodium 2,000 mg/ 70 mls @ 100 mls/hr 09/19/22 22:00 09/19/22 23:35 Dextrose IV 09/24/22 21:59 Infused Q24H MARY Infusion Protocol Levothyroxine Sodium 50 mcg 09/19/22 06:30 09/20/22 04:40 Levothyroxine Sodium 50 Mcg Tablet PO 10/19/22 06:29 50 mcg DAILYBB MARY Administration Ondansetron HCl 4 mg 09/18/22 22:45 09/20/22 04:26 Ondansetron Inj 2 Mg/Ml 2 Ml Vial IV 10/18/22 22:44 4 mg Q6H PRN Administration Nausea Pantoprazole Sodium 40 mg 09/19/22 09:00 09/20/22 09:13 Pantoprazole 40 Mg Tab PO 10/19/22 08:59 40 mg QAM MARY Administration Rivaroxaban 20 mg 09/19/22 09:00 09/20/22 09:13 Rivaroxaban 20 Mg Tab PO 10/19/22 08:59 20 mg QAM MARY Administration Ropinirole HCl 0.5 mg 09/19/22 21:00 09/20/22 20:01 Ropinirole Hcl 0.25 Mg Tablet PO 10/19/22 20:59 0.5 mg HS MARY Administration Thiamine HCl 100 mg 09/19/22 09:00 09/20/22 20:01 Thiamine Hcl 100 Mg Tab PO 10/19/22 08:59 100 mg BID MARY Administration PG Care Time/CCT Total # of Minutes Spent Total Time Spent with Patient: Total time spent is greater than 50% in coordination of care (as documented) at patient's floor/unit and/or counseling patient: Coding Level of Care Code 51541 Subseq Hosp Care Lvl 2 Diagnoses Daytime somnolence R40.0 Nausea & vomiting R11.2 UTI (urinary tract infection) N39.0 History of pulmonary embolism Z86.711 Schizoaffective disorder F25.1 Schizoaffective disorder type: depressive Restless leg G25.81 Hypothyroid E03.9 GERD (gastroesophageal reflux disease) K21.9 (1) Schizoaffective disorder Schizoaffective disorder type: depressive Qualified Code(s): F25.1 - Schizoaffective disorder, depressive type
[2022-09-20] MEDS ORDERED: QUEtiapine FUMARATE 200 MG TABCR PO SCH (21:00)
[2022-09-21] MEDS: LEVOTHYROXINE SODIUM 50 MCG TABLET PO SCH (06:00)
[2022-09-21] MEDS: ESCITALOPRAM OXALATE 20 MG TAB PO SCH (08:59)
[2022-09-21] MEDS: RIVAROXABAN 20 MG TAB PO SCH (08:59)
[2022-09-21] MEDS: PANTOprazole 40 MG TAB PO SCH (09:00)
[2022-09-21] MEDS: metFORMIN HCL 500 MG TAB PO SCH ×2 (09:00→16:38)
[2022-09-21] MEDS: BENZTROPINE MESYLATE 0.5 MG TAB PO SCH (09:00)
[2022-09-21] MEDS: PANCREAZE (LIPASE 4,200U) CAP PO SCH ×3 (09:00→16:38)
[2022-09-21] MEDS: busPIRone 15 MG TAB PO SCH ×2 (09:00→13:04)
[2022-09-21] MEDS: CHOLESTYRAMINE LIGHT 4 GM PKT PO SCH (09:01)
[2022-09-21] MEDS: THIAMINE HCL 100 MG TAB PO SCH (09:01)
--- NOTE | 2022-09-21 17:45 | Discharge Summary ---
Date of Service September 21, 2022 Admission HPI Per Admitting Provider Tierra Gil is a 66yo female with history of DM, GERD, PE and schizoaffective disorder with significant help seeking behavior who presented for the fourth time in 3 weeks to the ED with present1-2 days of nausea, vomiting and diarrhea. Patient reported diffuse abdominal discomfort as well as nausea with several episodes of non-bloody/non-bilious emesis with last episode of vomiting in the ER. She has also had several episodes of diarrhea, non-bloody but some bright red blood noted on the toilet paper after wiping (patient states this is common with her hemorrhoids). She has not been able to tolerate oral intake. Patient states that she gets similar symptoms multiple times throughout the month. She does report sick contacts - school-aged grandchildren with similar symptoms of nausea and vomiting. Additionally reports some urinary symptoms over the last several days - frequency/urgency and incontinence. She was taking OTC AZO pills for symptomatic relief. She denies fever but has had some chills. Denies chest pain. Has stable cough and baseline SOB which is unchanged. She has some left shoulder pain No additional complaints at this time In the ER she has elevated temperature at 37.7, mildly hypotensive at 94/57. ER Course: NSS x 2L, Ceftriaxone 2gm Principal Diagnosis Polypharmacy with daytime somnolence Hypoglycemia Severe obesity Diabetes mellitus type 2 Schizoaffective disorder Discharge Exam The patient had walked back from the bathroom. She was avidly eating dinner and not able to name a new PCP. She says she stopped using her old PCP because insisted that she was medical marijuana for pain control and she was on pain meds there is no pain meds listed in our home med list. Able to name the month correctly and is oriented to place Head and neck moist tongue, edentulous Chest clear to auscultation Abdomen obese nontender Extremities trace edema Gait not testeddoes walk on her own according to nurses Discharge Data Allergies Allergy/AdvReac Type Severity Reaction Status Date / Time egg AdvReac Severe Vomiting Verified 08/22/22 22:04 Penicillins AdvReac Severe Vomiting Verified 08/22/22 22:04 Consultations 09/18/22 20:38 ED Decision to Admit Stat Ordered Studies 09/18/22 17:09 CT Abd and Pelvis [CT abd pelvis IV con only] Stat Diabetes Follow up To keep a log of blood sugars which she is to do twice a day and take them to her new PCP. Glipizide has been stopped and metformin reduced to 500 mg twice daily Hospital Course (1) Daytime somnolence: Resolved since stopped gabapentin and clonazepam hospital day 2 . Resume Se roquel 400 mg at bedtime today (2) Nausea & vomiting: Etiology uncertain. Now resolved (3) UTI (urinary tract infection): Patient afebrile, HD stable at present Urine culture showed contaminationstopped ceftriaxone (4) History of pulmonary embolism: Patient is on Xarelto -Continue (5) Schizoaffective disorder: Patient reports stable moods. Continue Cogentin Continue Divalroe ?Anxiety -Continue Buspar -Continue Escitalopram Clonazepam stopped 2 days ago. Patient is doing quite well. She does not know the name of her psychiatrist. She says she thinks she sees him later this month. (6) Restless leg: Chronic -Continue Requip (7) Hypothyroid: Chronic -TSH ok -Continue Synthroid home dose Plan Overall this patient seems to have some cognitive impairment3 object recall which was normal 2 days ago was impaired today. She was not concentrating much and was hungrily eating however. She has been pleasant and cooperative. Has denied hallucinations. Polypharmacy was the main diagnosis. She has been to the ER 3 or 4 times in 3 weeks. She left AMA from the ER just days before the prescription current admission. She has a new PCP and does not know the name of that PCP. Detailed instructions have been given for her verbally as well as in writing. Just tried calling the patient's daughter Xochitl but could not reach her on phone. She states the patient states her 1 daughter lives with her and then takes her to her PCP appointment which is coming up in the next few weeks. I have urged her to tell her daughter to make an appointment in the next week or so with the PCP. She has been informed of the change in her medications and the fact that she was overmedicated. She tells me she was discharged from her last PCP's office about 3 months ago because she would not take medical marijuana for pain. She was on some pain medication at that time. She is a smoker of 3-1/2 packs of cigarettes a day. And told me yesterday nicotine gum helps her but she has never been prescribed that. She states cannot afford to take it on her own. We discussed this again at discharge Total Time Total Time Spent Total Time Spent (In Minutes): 50 mins Discharge Plan Discharge Items Patient Disposition: Home - Self-Care Reason For Visit: ABDOMINAL PAIN, N/V/D Discharge Diagnosis: polypharmacy with daytime somnolence and hypoglycemia nicotine abuse severe obesity Activity: Resume your previous activity Weightbearing: Full weightbearing Non-emergency contact: Primary Care Provider Call non-emergency contact if: your symptoms worsen Follow-up/Referrals: Dylan Fuentes PA-C [Primary Care Provider] - 09/30/22 10:20 am (With Rosalia Vicente PA-C) Diet: Carb Consistent or DM2 Addtl Attending Provider Instructions: I am worried about your lack of knowledge of who your new PCP is. PLEASE get an appointment with her/ him in a week or less and see them with your blood sugar log. Your PCP must get discharge summary from this hospital- we cannot forward them records as we do not know the name of the provide or even the practice's name. YOU MUST SEE your PCP regularly. You were on too many meds causing sleepiness . Some have been stopped. You MUST work on quitting smoking . Nicotine gum can be prescribed by your PCP when you are ready I tried reaching your daughter Xochitl on phone to tell her these instructions but she did not answer her phone. Pending Studies at Discharge: No Stand-Alone Forms: My [facility], Smoking Cessation Medications and DC Order Prescriptions: Continued pantoprazole [Protonix] 40 mg tablet,delayed release (DR/EC) 40 mg PO QAM buspirone 15 mg tablet 15 mg PO TID Creon 12,000-38,000 -60,000 unit capsule,delayed release(DR/EC) 1 cap PO TID Xarelto 20 mg tablet 20 mg PO QAM ropinirole 0.5 mg tablet 0.5 mg PO HS escitalopram oxalate [Lexapro] 20 mg tablet 20 mg PO QAM levothyroxine 50 mcg tablet 50 mcg PO QAM famotidine 20 mg tablet 20 mg PO DAILY folic acid 1 mg Tablet 1 mg PO QAM Qty: 30 0RF metformin 500 mg tablet 500 mg PO BID benztropine 0.5 mg tablet 0.5 mg PO BID quetiapine 400 mg tablet 400 mg PO HS cholestyramine (with sugar) [Questran] 4 gram powder in packet 1 ea PO BID ferrous sulfate [Iron (ferrous sulfate)] 325 mg (65 mg iron) tablet 325 mg PO Q OTHER DAY divalproex [Depakote ER] 500 mg tablet extended release 24 hr 1,500 mg PO HS cyanocobalamin (vitamin B-12) [Vitamin B-12] 1,000 mcg tablet 1,000 mcg PO BID thiamine HCl (vitamin B1) [Vitamin B-1] 100 mg tablet 100 mg PO BID Discontinued clonazepam 1 mg tablet 1 mg PO TID PRN (Reason: Anxiety) Rx Instructions: PER PT "TAKE 2 MG AT HS TO HELP ME SLEEP". glipizide 5 mg tablet 5 mg PO BID Qty: 60 1RF gabapentin 100 mg capsule 100 mg PO UD Rx Instructions: take 1 capsule in morning and at noon then take 2 capsules at bedtime loratadine [Allergy Relief (loratadine)] 10 mg tablet 10 mg PO QAM ondansetron HCl 4 mg tablet 4 mg PO Q8 PRN (Reason: Nausea And Vomiting) magnesium oxide 400 mg (241.3 mg magnesium) Tablet 400 mg PO BID Qty: 60 0RF sennosides-docusate sodium [Senna-Time S] 8.6-50 mg tablet 1 tab-cap PO DAILY PRN (Reason: constipation) Qty: 30 0RF ondansetron 4 mg tablet,disintegrating 4 mg PO Q6 PRN (Reason: nausea and vomiting) Qty: 30 0RF Discharge Orders: Discharge Order (Routine); Ordered 09/21/22 Ordered By: Micha Delaney Admission Data Admit Date/Time: 09/18/22 21:09 Attending Provider: Micha Delaney Admit Provider: Alysa Wagner Primary Care Provider: Dylan Fuentes Other Providers: Alysa Wagner Other Interventions: Discharge Summary Assessment (RN) Last Done: 09/21/22 16:20 Coding Level of Care Code D/C DAY MANAGEMENT >30 MINS Diagnoses Daytime somnolence R40.0 Nausea & vomiting R11.2 UTI (urinary tract infection) N39.0 History of pulmonary embolism Z86.711 Schizoaffective disorder F25.1 Schizoaffective disorder type: depressive Restless leg G25.81 Hypothyroid E03.9
== END 2022-09-21 18:27 | disposition home or self-care (01) | DRG 690 ==
LOC: ED 14:37 → 2N 21:09 → SUATTDRO 21:09 → 2N 22:17 → 3W 09-20 22:20

== ENCOUNTER 2022-10-20 01:30 | Inpatient (IN) ==
[2022-10-20 02:20] LABS: Appearance Urine Slightly Cloudy (Clear); Bilirubin Urine Negative (Negative); Blood Urine 1+ (Negative); Color Urine Yellow; Glucose Urine UA Negative (Negative); Ketones Urine 1+ (Negative); Leukocyte Esterase Urine 2+ (Negative); Nitrite Urine Positive (Negative); Protein Urine 1+ (Negative); Specific Gravity Urine >= 1.030 (1.000-1.030); Urobilinogen Urine Negative (Negative); pH Urine 5.5 (4.5-7.5)
[2022-10-20 02:51] LABS: Bacteria Urine 2+ (Negative); Epithelial Cell Urine 0-5 /lpf (0-5); Hyaline Casts Urine 0-5 /lpf (0-5); RBC Urine 0-4 /hpf (0-4); WBC Urine >30 /hpf (0-5)
[2022-10-20 03:45] LABS: Basophils # (auto) 0.06 K/uL (0-0.2); Basophils % (auto) 0.4 %; Eosinophils # (auto) 0.13 K/uL (0-0.50); Eosinophils % (auto) 0.9 %; Hematocrit (blood only) 46.6 % (34.1-44.9); Hemoglobin 15.9 g/dl (12.0-16.0); Immature Granulocytes # (auto) 0.14 K/uL (0.00-0.02); Lymphocytes # (auto) 2.01 K/uL (1.2-3.4); Lymphocytes % (auto) 14.4 %; Mean Corpuscular Hemoglobin 32.9 pg (25.0-34.0); Mean Corpuscular Hgb Conc 34.1 g/dL (32.0-36.0); Mean Corpuscular Volume 96.3 fL (80.0-100.0); Mean Platelet Volume 9.7 fL (9.4-12.3); Monocytes # (auto) 0.72 K/uL (0.24-0.82); Monocytes % (auto) 5.2 %; Neutrophils # (auto) 10.87 K/uL (1.4-6.5); Neutrophils % (auto) 78.1 %; Platelet Count 200 K/uL (130-400); RDW Coefficient of Variation 12.6 % (11.5-14.5); RDW Standard Deviation 45.1 fL (36.4-46.3); Red Blood Count 4.84 M/uL (3.93-5.22); White Blood Count 13.93 K/ul (4.8-10.8)
[2022-10-20] MEDS ORDERED: CEFEPIME 2,000 MG/20 ML VIAL IV STA (04:10)
[2022-10-20] MEDS: SODIUM CHLORIDE 0.9% 1000ML 1,000 ML IV SCH ×2 (05:01→13:20)
[2022-10-20 05:29] LABS: Albumin Globulin Ratio 1.2 (0.9-2); Albumin Level 3.5 gm/dl (3.4-5.0); BUN Creatinine Ratio 4.9 (10-20); Bilirubin,Total 0.6 mg/dl (0.2-1.0); Calcium 9.6 mg/dl (8.5-10.1); Creatinine Clr Calc Pharmacy 78.3 ml/min; Est GFR (African American) 88.3 ml/min; Est GFR (Non-African American) 76.2 ml/min; Potassium 4.8 mmol/L (3.5-5.1); Total Protein 6.5 gm/dl (6.0-8.3)
[2022-10-20] MEDS ORDERED: OPTIRAY 350 100ml IV ONE (05:59)
--- NOTE | 2022-10-20 06:50 | CT Scan Report ---
CT OF THE ABDOMEN AND PELVIS WITH CONTRAST CLINICAL HISTORY: n/v/d, left abdominal pain COMPARISON STUDY: CT of the abdomen and pelvis October 07, 2022. TECHNIQUE: Following IV administration of 86 mL of Optiray, axial images of the abdomen and pelvis we re obtained from the lung bases to the proximal femurs. Images were reviewed in the axial, sagittal, and coronal planes. IV contrast was administered without complication. Automated exposure control wa s utilized for the study. A dose lowering technique was utilized adhering to the principles of ALARA . CT DOSE: 1643.53 mGy.cm FINDINGS: Small hiatal hernia is present. No pneumatosis, free air or portal venous gas is present. M ild biliary ductal dilatation is unchanged and likely related to cholecystectomy. Hepatic steatosis. Spleen, adrenal glands, kidneys and pancreas are unremarkable. There is no hydronephrosis. Mild bladd er wall thickening is noted. Caliber and wall thickness of small and large bowel are normal. There is no evidence for a bowel obstruction. The appendix is not visualized. Uterus is surgically absent. IMPRESSION: 1. Mild bladder wall thickening. This could be correlated with urinalysis to exclude cystitis. 2. Small hiatal hernia. 3. No bowel obstruction. No bowel wall thickening. ACT 112: Negative or not required by law. Electronically signed by: Bryn East M.D. 10/20/2022 6:48 AM
[2022-10-20] MEDS ORDERED: FAMOTIDINE 20MG IV PUSH 20 MG/5 ML SYR IV STA (07:48)
[2022-10-20] MEDS ORDERED: PROCHLORPERAZINE 1 ML IV ONE (09:17)
--- NOTE | 2022-10-20 09:31 | Emergency Department Note ---
History of Present Illness General Chief complaint: Vomiting Time Seen by Provider: 10/20/22 03:57 Source: patient and EMS Mode of arrival: EMS Limitations: no limitations History of Present Illness Provider complaint: Nausea, vomiting, diarrhea, abdominal pain This is a 67-year-old female who presents emergency room complaining of nausea, vomiting, diarrhea, and abdominal pain. Patient states symptoms of been ev olving over the last several days, worse this evening with accompanying weakness. Patient states she has been unable to keep down fluids and her medications. She states she has previously had vomiting and diarrhea for various reasons. Patient states she has a history of GERD. She states she has used antibiotics for UTI within the last several months. She denies any prior history of C. difficile. Patient denies any recent change in diet or medications. Home Medications Medication Instructions Recorded Confirmed Type buspirone 15 mg tablet 15 mg PO TID 10/25/20 10/20/22 History fqqjnl-[id number]-nxwwpoz 1 cap PO TID 10/25/20 10/20/22 History 12,000-38,000-60,000 unit capsule,delayed rel (Creon) pantoprazole 40 mg tablet,delayed 40 mg PO QAM 10/25/20 10/20/22 History release (Protonix) rivaroxaban 20 mg tablet (Xarelto) 20 mg PO QAM 10/25/20 10/20/22 History escitalopram oxalate 20 mg tablet 20 mg PO QAM 03/18/21 10/20/22 History (Lexapro) ropinirole 0.5 mg tablet 0.5 mg PO HS 03/18/21 10/20/22 History divalproex 500 mg tablet,extended 1,500 mg PO HS 06/03/21 10/20/22 History release 24 hr (Depakote ER) ferrous sulfate 325 mg (65 mg 325 mg PO Q OTHER DAY 06/03/21 10/20/22 History iron) tablet (Iron (ferrous sulfate)) cyanocobalamin (vitamin B-12) 1,000 mcg PO BID 08/05/21 10/20/22 History 1,000 mcg tablet (Vitamin B-12) thiamine HCl (vitamin B1) 100 mg 100 mg PO BID 10/11/21 10/20/22 History tablet (Vitamin B-1) levothyroxine 50 mcg tablet 50 mcg PO QAM 01/21/22 10/20/22 History famotidine 20 mg tablet 20 mg PO DAILY 02/25/22 10/20/22 History folic acid 1 mg tablet 1 mg PO QAM #30 tabs 04/14/22 10/20/22 Rx benztropine 0.5 mg tablet 0.5 mg PO BID 07/25/22 10/20/22 History cholestyramine (with sugar) 4 gram 1 ea PO BID 07/25/22 10/20/22 History powder for susp in a packet (Questran) metformin 500 mg tablet 500 mg PO BID 07/25/22 10/20/22 History quetiapine 400 mg tablet 400 mg PO HS 07/25/22 10/20/22 History Allergies Allergy/AdvReac Type Severity Reaction Status Date / Time egg AdvReac Severe Vomiting Verified 08/22/22 22:04 Penicillins AdvReac Severe Vomiting Verified 08/22/22 22:04 Past Med/Surg History Medical History Acute hyponatremia Anemia Anxiety and depression Arthritis Aspiration pneumonia Chronic diarrhea Diabetes Folate deficiency GERD (gastroesophageal reflux disease) History of pulmonary embolism Hyperparathyroidism Hypomagnesemia Hypothyroid Hypoxia Iron deficiency anemia Irritable bowel syndrome Nausea & vomiting Pulmonary embolism Restless leg Schizoaffective disorder Smoking Vomiting and diarrhea Weakness Surgical History History of section x2 Family History Denies family history of Inflammatory bowel disease Social History Smoking Status: Current every day smoker Tobacco Type: Cigarettes Cigarettes Per Day: 80; Second Hand Exposure: No; Hx Alcohol Use: No Hx Substance Use: No Preferred Language: Honduran Communication Ability: Effective Research Spec Required: No Beliefs That Will Affect Care: None marital status: Current Living Situation: Alone Current Living Situation Comment: Lives with daughter and a home health aid How many Children do You have: 2 Other Information That Helps Us Care for You: No Feels Safe at Home: Yes Safety Concerns: Feels Safe At This Time Assistive Devices: Hearing Aid - Bilateral and Walker Review of Systems A total of 10 systems reviewed and were otherwise negative All systems reviewed & are unremarkable except as noted in HPI & below Physical Exam Vital Signs Vital Signs - 24 hr 10/20/22 07:00 10/20/22 09:22 Pulse Rate [Apical] 100 H 100 H Pulse Rhythm [Apical] Regular Respiratory Rate 18 18 Respiratory Effort / Characteristics Non-Labored Non-Labored Respiratory Depth Normal Normal Respiratory Pattern Regular Regular Blood Pressure [Right Arm] 101/64 129/77 Blood Pressure Mean [Right Arm] 76 94 Blood Pressure Position [Right Arm] Lying Lying Pulse Oximetry 95 98 Oxygen Delivery Method Room Air Room Air GENERAL: alert, ill appearing, well nourished, mild distress, non-toxic EYE EXAM: normal conjunctiva, PERRL and EOM's grossly intact OROPHARYNX: no exudate, no erythema, lips, buccal mucosa, and tongue normal and mucous membranes are moist NECK: supple, no nuchal rigidity, no adenopathy, non-tender LUNGS: Clear to auscultation. Normal chest wall mechanics, no w/r/r HEART: no murmurs, S1 normal and S2 normal ABDOMEN: abdomen soft, generalized discomfort with palpation, normo-active bowel sounds, no masses, no rebound or guarding. BACK: Back is symmetrical on inspection and there is no deformity, no midline tenderness, no CVA tenderness. SKIN: no rashes and no bruising UPPER EXTREMITIES: upper extremities are grossly normal. FROM, nml pulses b/l. LOWER EXTREMITIES: No pitting edema. FROM, nml pulses b/l. NEURO EXAM: Normal sensorium, cranial nerves II-XII grossly intact, normal speech, no gross weakness of arms, no gross weakness of legs. Gross sensation intact. Course Administered Medications Benztropine Mesylate (Benztropine Mesylate 0.5 Mg Tab) 0.5 mg PO BID ON LICENSE OF [facility] Stop: 11/19/22 20:59 Last Admin: 10/20/22 21:29 Dose: 0.5 mg Documented By: [id number] Buspirone HCl (Buspirone 15 Mg Tab) 15 mg PO TID ON LICENSE OF [facility] Stop: 11/19/22 13:59 Last Admin: 10/20/22 21:30 Dose: 15 mg Documented By: [id number] Admin: 10/20/22 14:30 Dose: 15 mg Documented By: SR Cholestyramine Resin (Cholestyramine Light 4 Gm Pkt) 4 gm PO BID@1000,2200 ON LICENSE OF [facility] Stop: 11/19/22 21:59 Last Admin: 10/20/22 23:23 Dose: Not Given Documented By: ARI Divalproex Sodium (Divalproex Extended Release 500 Mg Tab) 1,500 mg PO [facility] Stop: 11/19/22 20:59 Last Admin: 10/20/22 21:32 Dose: 1,500 mg Documented By: [id number] Ceftriaxone Sodium 2,000 mg/ (Dextrose) 70 mls @ 100 mls/hr IV Q24H ON LICENSE OF [facility]; Protocol Stop: 10/30/22 14:44 Last Infusion: 10/20/22 16:38 Dose: 0 mls/hr Documented By: [id number] Admin: 10/20/22 15:38 Dose: 100 mls/hr Documented By: [id number] Levothyroxine Sodium (Levothyroxine Sodium 50 Mcg Tablet) [facility] Stop: 11/20/22 06:29 Last Admin: 10/21/22 05:31 Dose: 50 mcg Documented By: ARI Quetiapine Fumarate (Quetiapine Fumarate 200 Mg Tab) 400 mg PO [facility] Stop: 11/19/22 20:59 Last Admin: 10/20/22 21:28 Dose: 400 mg Documented By: [id number] Ropinirole HCl (Ropinirole Hcl 0.25 Mg Tablet) 0.5 mg PO [facility] Stop: 11/19/22 20:59 Last Admin: 10/20/22 21:28 Dose: 0.5 mg Documented By: [id number] Discontinued Medications Clonazepam (Clonazepam 0.5 Mg Tab) 0.5 mg PO NOW STA Stop: 10/20/22 22:38 Last Admin: 10/20/22 23:23 Dose: 0.5 mg Documented By: ARI Cefepime HCl (Maxipime) 2,000 mg in 20 mls @ 5 mls/min IV NOW STA; Protocol Stop: 10/20/22 04:13 Last Admin: 10/20/22 04:37 Dose: 5 mls/min Documented By: LISSET Sodium Chloride (Nss 1000ml) 1,000 mls @ 125 mls/hr IV .Q8H ON LICENSE OF [facility] Stop: 10/20/22 20:59 Last Infusion: 10/20/22 22:07 Dose: 0 mls/hr Documented By: [id number] Admin: 10/20/22 13:20 Dose: 125 mls/hr Documented By: Infusion: 10/20/22 13:01 Dose: 125 mls/hr Documented By: Admin: 10/20/22 05:01 Dose: 125 mls/hr Documented By: LISSET Famotidine (Pepcid 20mg Iv Push) 20 mg in 5 mls @ 2.5 mls/min IV NOW STA Stop: 10/20/22 07:49 Last Admin: 10/20/22 07:59 Dose: 2.5 mls/min Documented By: Prochlorperazine (Compazine) 1 mls @ 1 mls/min IV ONE ONE Stop: 10/20/22 09:18 Last Admin: 10/20/22 09:29 Dose: 1 mls/min Documented By: Ioversol (Optiray 350 100ml) 100 ml IV ONCE ONE Stop: 10/20/22 06:00 Last Admin: 10/20/22 05:59 Dose: 86 ml Documented By: SIMONE Medical Decision Making Differential Diagnosis Differential: Gastroenteritis, Food Borne, Esophageal Perforation, , Electrolyte Abnormality, Dehydration, Intraabdominal Infection, UTI/Pyelonephritis, Bowel Obstruction, Biliary Pathology, amongst other patho logy entertained. Medical Records Attestation: I reviewed the patient's medical records. Home Medications Current Medication List: was personally reviewed by me Laboratory Data Attestation: I reviewed the patient's lab results. Result diagrams: 10/20/22 02:42 10/21/22 05:15 Lab Results 10/20/22 10/20/22 10/20/22 Range/Units 02:00 02:42 02:42 WBC 13.93 H (4.8-10.8) K/ul RBC 4.84 (3.93-5.22) M/uL Hgb 15.9 (12.0-16.0) g/dl Hct 46.6 H (34.1-44.9) % MCV 96.3 (80.0-100.0) fL MCH 32.9 (25.0-34.0) pg MCHC 34.1 (32.0-36.0) g/dL RDW Std Deviation 45.1 (36.4-46.3) fL RDW Coeff of [place] 12.6 (11.5-14.5) % Plt Count 200 (130-400) K/uL MPV 9.7 (9.4-12.3) fL Immature Gran % (Auto) 1.0 % Neut % (Auto) 78.1 % Lymph % (Auto) 14.4 % [place] % (Auto) 5.2 % Eos % (Auto) 0.9 % Baso % (Auto) 0.4 % Neut # (Auto) 10.87 H (1.4-6.5) K/uL Lymph # (Auto) 2.01 (1.2-3.4) K/uL [place] # (Auto) 0.72 (0.24-0.82) K/uL Eos # (Auto) 0.13 (0-0.50) K/uL Baso # (Auto) 0.06 (0-0.2) K/uL Immature Gran # (Auto) 0.14 H (0.00-0.02) K/uL Sodium 139 (136-145) mmol/L Potassium 4.8 (3.5-5.1) mmol/L Chloride 103 (98-107) mmol/L Carbon Dioxide 21 (21-32) mmol/L Anion Gap 15 H (3-11) BUN 4 L (6-23) mg/dl Creatinine 0.81 (0.6-1.2) mg/dl Est Cr Clr Drug Dosing 78.3 ml/min Est GFR ( Amer) 88.3 ml/min Est GFR (Non-Af Amer) 76.2 ml/min BUN/Creatinine Ratio 4.9 L (10-20) Glucose 154 H (70-99(Fasting)) mg/dl Calcium 9.6 (8.5-10.1) mg/dl Total Bilirubin 0.6 (0.2-1.0) mg/dl AST 40 H (13-39) U/L ALT 11 (7-52) U/L Alkaline Phosphatase 79 (34-104) U/L Total Protein 6.5 (6.0-8.3) gm/dl Albumin 3.5 (3.4-5.0) gm/dl Globulin 3.0 (2.5-4.0) gm/dl Albumin/Globulin Ratio 1.2 (0.9-2) Lipase 295 H (11-82) U/L Urine Color Yellow Urine Appearance Slightly Cloudy (Clear) Urine pH 5.5 (4.5-7.5) Ur Specific [place] >= 1.030 (1.000-1.030) Urine Protein 1+ H (Negative) Urine Glucose (UA) Negative (Negative) Urine Ketones 1+ H (Negative) Urine Blood 1+ H (Negative) Urine Nitrite Positive A (Negative) Urine Bilirubin Negative (Negative) Urine Urobilinogen Negative (Negative) Ur Leukocyte Esterase 2+ H (Negative) Urine RBC 0-4 (0-4) /hpf Urine WBC >30 H (0-5) /hpf Ur Epithelial Cells 0-5 (0-5) /lpf Urine Bacteria 2+ H (Negative) Hyaline Casts 0-5 (0-5) /lpf Stl C. cayetanensis PCR (NotDetected) Stool Rotavirus A PCR (NotDetected) Stl Adenov F 40/41 PCR (NotDetected) Stool Astrovirus (PCR) (NotDetected) Stool Campylobacter PCR (NotDetected) Stool Cryptosporidium PCR (NotDetected) Stl E.coli Shiga Tox PCR (NotDetected) Stl Enterotoxigenic E PCR (NotDetected) Stool EPEC (PCR) (NotDetected) Stool EAEC (PCR) (NotDetected) Stl E. histolytica PCR (NotDetected) Stool Giardia Lamblia PCR (NotDetected) Stool Salmonella PCR (NotDetected) Stool Sapovirus (PCR) (NotDetected) Stl P. shigelloides PCR (NotDetected) Stl Shigella/EIEC PCR (NotDetected) St Y.enterocolitica PCR (NotDetected) Stool Vibrio (PCR) (NotDetected) Stl Vibrio cholerae PCR (NotDetected) Stl Norovirus GI/GII PCR (NotDetected) SARS-CoV-2 (PCR) (Negative) Influenza Type A (PCR) (Neg) Influenza Type B (PCR) (Neg) RSV (RT-PCR) (Neg) 10/20/22 10/20/22 Range/Units 09:35 09:35 WBC (4.8-10.8) K/ul RBC (3.93-5.22) M/uL Hgb (12.0-16.0) g/dl Hct (34.1-44.9) % MCV (80.0-100.0) fL MCH (25.0-34.0) pg MCHC (32.0-36.0) g/dL RDW Std Deviation (36.4-46.3) fL RDW Coeff of [place] (11.5-14.5) % Plt Count (130-400) K/uL MPV (9.4-12.3) fL Immature Gran % (Auto) % Neut % (Auto) % Lymph % (Auto) % [place] % (Auto) % Eos % (Auto) % Baso % (Auto) % Neut # (Auto) (1.4-6.5) K/uL Lymph # (Auto) (1.2-3.4) K/uL [place] # (Auto) (0.24-0.82) K/uL Eos # (Auto) (0-0.50) K/uL Baso # (Auto) (0-0.2) K/uL Immature Gran # (Auto) (0.00-0.02) K/uL Sodium (136-145) mmol/L Potassium (3.5-5.1) mmol/L Chloride (98-107) mmol/L Carbon Dioxide (21-32) mmol/L Anion Gap (3-11) BUN (6-23) mg/dl Creatinine (0.6-1.2) mg/dl Est Cr Clr Drug Dosing ml/min Est GFR ( Amer) ml/min Est GFR (Non-Af Amer) ml/min BUN/Creatinine Ratio (10-20) Glucose (70-99(Fasting)) mg/dl Calcium (8.5-10.1) mg/dl Total Bilirubin (0.2-1.0) mg/dl AST (13-39) U/L ALT (7-52) U/L Alkaline Phosphatase (34-104) U/L Total Protein (6.0-8.3) gm/dl Albumin (3.4-5.0) gm/dl Globulin (2.5-4.0) gm/dl Albumin/Globulin Ratio (0.9-2) Lipase (11-82) U/L Urine Color Urine Appearance (Clear) Urine pH (4.5-7.5) Ur Specific [place] (1.000-1.030) Urine Protein (Negative) Urine Glucose (UA) (Negative) Urine Ketones (Negative) Urine Blood (Negative) Urine Nitrite (Negative) Urine Bilirubin (Negative) Urine Urobilinogen (Negative) Ur Leukocyte Esterase (Negative) Urine RBC (0-4) /hpf Urine WBC (0-5) /hpf Ur Epithelial Cells (0-5) /lpf Urine Bacteria (Negative) Hyaline Casts (0-5) /lpf Stl C. cayetanensis PCR Not Detected (NotDetected) Stool Rotavirus A PCR Not Detected (NotDetected) Stl Adenov F 40/41 PCR Not Detected (NotDetected) Stool Astrovirus (PCR) Not Detected (NotDetected) Stool Campylobacter PCR Not Detected (NotDetected) Stool Cryptosporidium PCR Not Detected (NotDetected) Stl E.coli Shiga Tox PCR Not Detected (NotDetected) Stl Enterotoxigenic E PCR Not Detected (NotDetected) Stool EPEC (PCR) Not Detected (NotDetected) Stool EAEC (PCR) Not Detected (NotDetected) Stl E. histolytica PCR Not Detected (NotDetected) Stool Giardia Lamblia PCR Not Detected (NotDetected) Stool Salmonella PCR Not Detected (NotDetected) Stool Sapovirus (PCR) Not Detected (NotDetected) Stl P. shigelloides PCR Not Detected (NotDetected) Stl Shigella/EIEC PCR Not Detected (NotDetected) St Y.enterocolitica PCR Not Detected (NotDetected) Stool Vibrio (PCR) Not Detected (NotDetected) Stl Vibrio cholerae PCR Not Detected (NotDetected) Stl Norovirus GI/GII PCR DETECTED A* (NotDetected) SARS-CoV-2 (PCR) NEGATIVE (Negative) Influenza Type A (PCR) Negative (Neg) Influenza Type B (PCR) Negative (Neg) RSV (RT-PCR) Negative (Neg) Imaging Data Radiologist's Impression: Abdomen/Pelvis CT 10/20/22 04:51 CT OF THE ABDOMEN AND PELVIS WITH CONTRAST CLINICAL HISTORY: n/v/d, left abdominal pain COMPARISON STUDY: CT of the abdomen and pelvis October 07, 2022. TECHNIQUE: Following IV administration of 86 mL of Optiray, axial images of the abdomen and pelvis were obtained from the lung bases to the proximal femurs. Images were reviewed in the axial, sagittal, and coronal planes. IV contrast was administered without complication. Automated exposure control was utilized for the study. A dose lowering technique was utilized adhering to the principles of ALARA. CT DOSE: 1643.53 mGy.cm FINDINGS: Small hiatal hernia is present. No pneumatosis, free air or portal venous gas is present. Mild biliary ductal dilatation is unchanged and likely related to cholecystectomy. Hepatic steatosis. Spleen, adrenal glands, kidneys and pancreas are unremarkable. There is no hydronephrosis. Mild bladder wall thickening is noted. Caliber and wall thickness of small and large bowel are normal. There is no evidence for a bowel obstruction. The appendix is not visualized. Uterus is surgically absent. IMPRESSION: 1. Mild bladder wall thickening. This could be correlated with urinalysis to exclude cystitis. 2. Small hiatal hernia. 3. No bowel obstruction. No bowel wall thickening. ACT 112: Negative or not required by law. Electronically signed by: Bryn East M.D. 10/20/2022 6:48 AM MDM Narrative An order was placed for continuous cardiac monitoring. The monitor shows a rate of _82_ with _normal sinus_ rhythm. This is a 67-year-old female presents emergency department complaining of nausea, vomiting, diarrhea, abdominal pain. Patient with prior similar episodes. She states she has had recent urinary tract infections though. Pat ient denies any change in medications, trauma, or change in diet. Labs are drawn and sent prior to my evaluation by nursing staff per protocol as she presented on day of high volume and acuity. Additional CT imaging added. Urine was collected. Patient given IV fluids as well as medication for nausea and pain. Patient found to have a urinary tract infection and was started on IV antibiotics after review of prior cultures. Patient with persistent nausea, vomiting, and diarrhea while here. Due to ongoing symptoms, case discussed with hospitalist for additional evaluation and management. Upon review of EMR, symptoms do seem similar to prior episodes. Patient has had prior imaging and GI evaluation. Impression & Plan Nausea & vomiting, Abdominal pain, Diarrhea, Acute UTI (urinary tract infection) Discharge Plan Visit Data Chief Complaint: Vomiting ED Provider: Zandra Avelar Discharge Problem: Nausea & vomiting, Abdominal pain, Diarrhea, Acute UTI (urinary tract infection) Patient Disposition: Admitted As Inpatient Discharge Instructions Interventions: ED Discharge Assessment Last Done: 10/20/22 12:47
[2022-10-20 10:36] LABS: Influenza A virus by PCR Negative (Neg); Influenza B virus by PCR Negative (Neg); RSV by PCR Negative (Neg); SARS CoV2 RNA(COVID-19) Ceph NEGATIVE (Negative)
[2022-10-20 11:51] LABS: Adenovirus F 40/41 PCR Not Detected (NotDetected); Astrovirus PCR Not Detected (NotDetected); Campylobacter PCR Not Detected (NotDetected); Cryptosporidium PCR Not Detected (NotDetected); Cyclospora cayetanensis PCR Not Detected (NotDetected); Entamoeba histolytica PCR Not Detected (NotDetected); Enteroaggregative E.coli(EAEC) Not Detected (NotDetected); Enteropathogenic E.coli (EPEC) Not Detected (NotDetected); Enterotoxigenic E.coli (ETEC) Not Detected (NotDetected); Giardia lamblia PCR Not Detected (NotDetected); Plesiomonas shigelloides PCR Not Detected (NotDetected); Rotavirus A PCR Not Detected (NotDetected); Salmonella PCR Not Detected (NotDetected); Sapovirus PCR Not Detected (NotDetected); Shiga-like Toxin E.coli (STEC) Not Detected (NotDetected); Shigella/Enteroinvasive E.coli Not Detected (NotDetected); Vibrio cholerae PCR Not Detected (NotDetected); Vibrio species PCR Not Detected (NotDetected); Yersinia enterocolitica PCR Not Detected (NotDetected)
[2022-10-20 11:55] LABS: Norovirus GI/GII PCR DETECTED (NotDetected)
[2022-10-20] MEDS ORDERED: ondansetron HCL 6 MG in DEXTROSE 5% 50 ML IV PRN (14:30)
[2022-10-20] MEDS: busPIRone 15 MG TAB PO SCH ×2 (14:30→21:30)
--- NOTE | 2022-10-20 14:30 | Medical Student H&P ---
Date of Service October 20, 2022 Assessment & Plan (1) UTI (urinary tract infection): Plan: Tierra Gil is a 67y/o female patient with a past medical history of GERD, IBS, hypothyroidism, Schizoaffective disorder, and anxiety presenting with abdominal pain, diarrhea, nausea, and vomiting. The patient has had an increase in frequency of bowel movement. Patient states she had 4 bowel movements this morning. Patient states her stools are black in color. The patient denies blood in stool. Patient has a chronic history of bouts of nausea and vomiting. The patient also reports dysuria, urgency, and frequency. Patient states blood is present in urine. Patient had a positive UA and is having urinary symptoms. Most likely UTI and will treat. Will manage antibiotics depending on urine culture results currently pending. Stool positive for norovirus. Will treat viral enteritis using conservative management for now. This could also be related to her chronic conditions of GERD, IBS, anxiety. Considering GI bleed but lower on differential since hemoglobin level is normal, 15.9. Awaiting FOBT and C. diff results. Will see how patient progresses over the next day with conservative management and treatment for UTI. Will alter management based on pending lab results. (1) UTI -Positive UA for nitrites, leukocyte esterase, and bacteria 2+ -Awaiting urine culture results -Positive for urinary symptoms -Start ceftriazone 2g IV q24h. (2) Viral enteritis -Stool positive for Norovirus -Conservative management with hydration -Zofran prescribed prn if patient needs for worsening nausea. But she has not needed it past couple hours, so plan to prescribe all meds PO for now. (3) PMHx PE -Discontinue Xarelto. Await FOBT results due to concern for GI bleed. (4) Schizoaffective Disorder -Continue Cogentin -Continue Depakote -Continue Seroquel (5) Anxiety -Continue Buspar -Continue Lexapro (6) Restless Leg Syndrome -Continue Ropinirole (7) Hypothyroid -Continue Synthroid (8) GERD -Chronic and well controlled -Continue Pepsid -Continue Protonix (2) Enteritis due to [place] virus: (3) Schizoaffective disorder: Schizoaffective disorder type: depressive Qualified Code(s): F25.1 - Schizoaffective disorder, depressive type (4) Restless leg: (5) Anxiety: (6) Hypothyroid: (7) GERD (gastroesophageal reflux disease): Admission and Anticipated Discharge Date Admission Date: October 20, 2022 History of Present Illness Primary Care Provider: NO PCP HPI Tierra Gil is a 67-year-old female with a PMH of SAD, anxiety, hypothyroidism, IBS, GERD, and restless leg syndrome who presented to the emergency room last night with nausea, vomiting, diarrhea, and abdominal pain. Patient could not determine when symptoms began, but reports symptoms evolved o heidi the last several days, worse last night with accompanying fatigue.Patient states she has been unable to keep down fluids, eat, or take her oral medications. She characterizes her vomit and stool as black. Denies blood in her stool or vomit. Upon our evaluation, nursing reports she has had 4 bowel movements this morning. States her abdominal pain is generalized, sharp, achy, and occasionally radiates to her chest; however, she denies distinct chest pain. Endorses chills and a headache. Also endorses SOB at baseline, which she feels is due to smoking. Denies myalgias, arthralgias, cough, congestion, back pain, flank pain, night sweats, subjective fevers. She has not tried any medications for symptomatic relief over the last couple days. Her CT abdomen/pelvis ordered in the ED was remarkable for mild bladder wall thickening and a small hiatal hernia. She also reports recent dysuria, cramping with urination, and swirls of blood in her urine. Reports a urine color of malissa yellow. She states she has previously had similar episodes of vomiting and diarrhea for various reasons. She was most recently hospitalized at [facility] in early September with nausea and vomiting of uncertain etiology. She states she has used antibiotics for UTI within the last several months. She denies any prior history of C. difficile. Patient denies any recent change in diet or medications. PMH: She has been seen by GI, but denies recent changes to medication regimen. Her EGD from April 2021 reports gastritis and gastric polyps. Her colonoscopy from April 2021 reports polyps, diverticulosis, and internal hemorrhoids. Surgical History: section x 2 Hysterectomy Social History: Tobacco: Has been smoking cigarettes since age 12-13. Smokes 2-4 packs per day. No alcohol or substance use. Family History: Bowel cancer - mom & dad No history of bladder, uterine, or ovarian cancer. No history of IBD. Allergies Allergy/AdvReac Type Severity Reaction Status Date / Time egg AdvReac Severe Vomiting Verified 08/22/22 22:04 Penicillins AdvReac Severe Vomiting Verified 08/22/22 22:04 Home Medications Medication Instructions Recorded Confirmed Type buspirone 15 mg tablet 15 mg PO TID 10/25/20 10/20/22 History hlkihi-[id number] 1 cap PO TID 10/25/20 10/20/22 History 12,000-38,000-60,000 unit capsule,delayed rel (Creon) pantoprazole 40 mg tablet,delayed 40 mg PO QAM 10/25/20 10/20/22 History release (Protonix) rivaroxaban 20 mg tablet (Xarelto) 20 mg PO QAM 10/25/20 10/20/22 History escitalopram oxalate 20 mg tablet 20 mg PO QAM 03/18/21 10/20/22 History (Lexapro) ropinirole 0.5 mg tablet 0.5 mg PO HS 03/18/21 10/20/22 History divalproex 500 mg tablet,extended 1,500 mg PO HS 06/03/21 10/20/22 History release 24 hr (Depakote ER) ferrous sulfate 325 mg (65 mg 325 mg PO Q OTHER DAY 06/03/21 10/20/22 History iron) tablet (Iron (ferrous sulfate)) cyanocobalamin (vitamin B-12) 1,000 mcg PO BID 08/05/21 10/20/22 History 1,000 mcg tablet (Vitamin B-12) thiamine HCl (vitamin B1) 100 mg 100 mg PO BID 10/11/21 10/20/22 History tablet (Vitamin B-1) levothyroxine 50 mcg tablet 50 mcg PO QAM 01/21/22 10/20/22 History famotidine 20 mg tablet 20 mg PO DAILY 02/25/22 10/20/22 History folic acid 1 mg tablet 1 mg PO QAM #30 tabs 04/14/22 10/20/22 Rx benztropine 0.5 mg tablet 0.5 mg PO BID 07/25/22 10/20/22 History cholestyramine (with sugar) 4 gram 1 ea PO BID 07/25/22 10/20/22 History powder for susp in a packet (Questran) metformin 500 mg tablet 500 mg PO BID 07/25/22 10/20/22 History quetiapine 400 mg tablet 400 mg PO HS 07/25/22 10/20/22 History Past Med/Surg History Medical History Acute hyponatremia Anemia Anxiety and depression Arthritis Aspiration pneumonia Chronic diarrhea Diabetes Folate deficiency GERD (gastroesophageal reflux disease) History of pulmonary embolism Hyperparathyroidism Hypomagnesemia Hypothyroid Hypoxia Iron deficiency anemia Irritable bowel syndrome Nausea & vomiting Pulmonary embolism Restless leg Schizoaffective disorder Smoking Vomiting and diarrhea Weakness Surgical History History of section x2 Family History Denies family history of Inflammatory bowel disease Social History Smoking Status: Current every day smoker Tobacco Type: Cigarettes Cigarettes Per Day: 80; Second Hand Exposure: No; Hx Alcohol Use: No Hx Substance Use: No Preferred Language: Estonian Communication Ability: Effective 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 Physical Exam Constitutional: Uncomfortable appearing, but in no acute distress. Resting in bed. Eyes: Sclerae anicteric and normal conjunctivae. ENMT: Mildly dry mucous membranes. No exudate or erythema. Neck: normal visual inspection Neck supple. Respiratory: Crackles in bilateral bases. Breath sounds clear to auscultation in all other lung baker. Cardiovascular: Regular rate & rhythm. No murmurs, rubs, gallops. Normal capillary refill. No lower extremity edema. Gastrointestinal (Abdomen): Abdomen mildly distended. Soft. Bowel sounds present. Generalized tenderness to palpation with more tenderness over LLQ. Vol untary guarding. No rebound tenderness. No masses palpated. Skin: Warm & dry. No rashes. Neurologic: Alert & oriented x 3. Psychiatric: Appropriate mood & affect. Results & Data ([facility]) Vital Signs (Past 12 Hours) Vital Signs Pulse Resp BP Pulse Ox O2 Del Method 10/20/22 14:05 88 18 108/69 95 Room Air 10/20/22 13:00 88 18 104/76 96 Room Air 10/20/22 12:36 86 18 103/67 96 Room Air 10/20/22 09:22 100 H 18 129/77 98 Room Air 10/20/22 07:00 100 H 18 101/64 95 Room Air 10/20/22 05:00 105 H 20 130/79 92 Room Air 10/20/22 03:00 99 H 20 118/78 95 Room Air Supervising Attestation I personally examined the patient and verified all lopez points of history and exam, discussed case, and agree with decision making with Joseph Bear and Scott PEDERSEN Feeling a bit better by the time I see herno vomiting for several hours, still has some diarrhea but less abdominal pain. Feels that the acute situation is improving. As far as a chronic situation, she believes it started a few years ago, she has not really had a good day sincenotes a lot of vomitingif asked to decide if the vomiting or the diarrhea was worsegenerally the vomitingquite a bit of nausea followed by vomitingsometimes hours after eating. She does have diarrhea, hard to quantify as far as how often a dayseems to be maybe 2-4 times a day on a typical bad daybut this is not clear and it might be worse or better. No blood in the vomitus she does relate sometimes some mucus in the diarrhea. No real abdominal pain just severe nausea prior to vomiting. Does not believe episodes have ever self abortedfeels that she is probably come to the hospital for every single episode. Diet mostly consists of simple and starchy carbohydrates, she has not really seen any food triggers or alleviating factors. Vitals noted, in general she is very fatigued somewhat difficult historian no distress. HEENT normocephalic atraumatic mucous membranes moist. Breathing unlabored no accessory muscle use good effort. Skin shows no rashes no pallor or icterus. Neuro without focal deficits. Labs and diagnostics noted. Nausea vomiting diarrheaacutely appears to be due to [place] virus. Chronically a bit harder to discernwas able to revisit her HPI, she is a somewhat difficult historian, we will continue to revisit history and in light of the new history, also review her chart and studies that have been done. AcutelyIV fluids, antiemetics, supportive care. UTIempiric ceftriaxone for now. DVT prophylaxischronically anticoagulated on Xarelto, also be on hold until it is clear she is not having any bleeding with her vomiting or diarrhea, I doubt this is the case, but will follow CBC into the morning and await fecal occult bloodif everything reassuring, then can resume Xarelto. otherwise as above
[2022-10-20] MEDS: cefTRIAXone SODIUM 2,000 MG in DEXTROSE 5% 50 ML IV SCH (15:38)
--- NOTE | 2022-10-20 19:06 | Billing Data ---
Date of Service October 20, 2022 Coding Level of Care Code 44989 Initial Inpt Care Lvl 3
[2022-10-20] MEDS: QUEtiapine FUMARATE 200 MG TAB PO SCH (21:28)
[2022-10-20] MEDS: rOPINIRole HCL 0.25 MG TABLET PO SCH (21:28)
[2022-10-20] MEDS: BENZTROPINE MESYLATE 0.5 MG TAB PO SCH (21:29)
[2022-10-20] MEDS: DIVALPROEX EXTENDED RELEASE 500 MG TAB PO SCH (21:32)
[2022-10-20] MEDS ORDERED: clonazePAM 0.5 MG TAB PO STA (22:37)
[2022-10-20] MEDS: CHOLESTYRAMINE LIGHT 4 GM PKT PO SCH (23:23)
[2022-10-21] MEDS: LEVOTHYROXINE SODIUM 50 MCG TABLET PO SCH (05:31)
[2022-10-21 06:05] LABS: Albumin Globulin Ratio 1.1 (0.9-2); Albumin Level 2.7 gm/dl (3.4-5.0); BUN Creatinine Ratio 13.4 (10-20); Bilirubin,Total 0.3 mg/dl (0.2-1.0); Creatinine Clr Calc Pharmacy 94.2 ml/min; Est GFR (African American) 106.9 ml/min; Est GFR (Non-African American) 92.2 ml/min; Globulin 2.4 gm/dl (2.5-4.0); Potassium 3.8 mmol/L (3.5-5.1); Total Protein 5.1 gm/dl (6.0-8.3)
[2022-10-21] MEDS ORDERED: ACETAMINOPHEN 500 MG TAB PO STA (06:36)
[2022-10-21 07:22] LABS: Basophils # (auto) 0.04 K/uL (0-0.2); Basophils % (auto) 0.4 %; Eosinophils # (auto) 0.31 K/uL (0-0.50); Eosinophils % (auto) 3.4 %; Hematocrit (blood only) 37.3 % (34.1-44.9); Immature Granulocytes # (auto) 0.07 K/uL (0.00-0.02); Immature Granulocytes % (auto) 0.8 %; Lymphocytes # (auto) 3.52 K/uL (1.2-3.4); Lymphocytes % (auto) 38.3 %; Mean Corpuscular Hemoglobin 32.6 pg (25.0-34.0); Mean Corpuscular Hgb Conc 34.9 g/dL (32.0-36.0); Mean Corpuscular Volume 93.5 fL (80.0-100.0); Mean Platelet Volume 9.9 fL (9.4-12.3); Monocytes # (auto) 0.58 K/uL (0.24-0.82); Monocytes % (auto) 6.3 %; Neutrophils # (auto) 4.68 K/uL (1.4-6.5); Neutrophils % (auto) 50.8 %; Platelet Count 142 K/uL (130-400); RDW Coefficient of Variation 12.8 % (11.5-14.5); RDW Standard Deviation 44.2 fL (36.4-46.3); Red Blood Count 3.99 M/uL (3.93-5.22)
[2022-10-21] MEDS: busPIRone 15 MG TAB PO SCH ×3 (09:01→20:07)
[2022-10-21] MEDS: ESCITALOPRAM OXALATE 20 MG TAB PO SCH (09:02)
[2022-10-21] MEDS: PANTOprazole 40 MG TAB PO SCH (09:03)
[2022-10-21] MEDS: FAMOTIDINE 20 MG TAB PO SCH (09:03)
[2022-10-21] MEDS ORDERED: ACETAMINOPHEN 500 MG TAB ONE (09:07)
--- NOTE | 2022-10-21 11:12 | Hospitalist Progress Note ---
Date of Service October 21, 2022 Assessment & Plan (1) UTI (urinary tract infection): Plan: Tierra Gil is a 67y/o female patient with a past medical history of GERD, IBS, hypothyroidism, Schizoaffective disorder, and anxiety presenting with abdominal pain, diarrhea, nausea, and vomiting. Currently managing for viral enteritis (+ norovirus). UTI -UA showed proteinuria, ketonuria, hematuria, nitrite positive, 2+ LE. -Positive for urinary symptoms * Ceftriazone 2g IV q24h. Viral enteritis -Stool positive for Norovirus * Conservative management with hydration * Zofran as needed for nausea. May convert to IV if patient vomits. History of pulmonary embolism -Xarelto stopped on admission. FOBT negative * Xarelto 20 mg p.o. every morning Schizoaffective Disorder * Continue Cogentin * Continue Depakote * Continue Seroquel Anxiety * Continue Buspar * Continue Lexapro Restless Leg Syndrome * Continue Ropinirole Hypothyroid * Continue Synthroid GERD -Chronic and well controlled * Continue Pepcid, Protonix Type 2 diabetes -Patient takes metformin at home. Held on admission. * Sliding scale insulin ordered: NovoLog after meals. Target BSG range 100 to 140 mg/dL. CF = 30 mg/dL/unit. CR = 13 g/unit * Glucose checks at mealtimes, at bedtime Diet: Regular DVT prophylaxis: Rivaroxaban 20 mg every morning Code: Full code Dispo: MedSurg (2) Enteritis due to [place] virus: (3) Schizoaffective disorder: (4) Restless leg: (5) Anxiety: (6) Hypothyroid: (7) GERD (gastroesophageal reflux disease): Admission and Anticipated Discharge Date Admission Date: October 20, 2022 Supervising Physician Co-Signing Physician Notes I personally examined the patient and verified all lopez points of history and exam, discussed case, and agree with decision making with Dr Purdy Feeling better. Still a bit nauseated, but was able to eat. No further vomiting, no diarrhea. Vitals noted, in general she is awake and alert pleasant no distress. Very fatigued. Breathing unlabored. Abdomen shows epigastric tenderness without guarding rebound or rigidity, remainder of abdomen benign. Acute nausea vomiting diarrheaappears to be due to norovirus gastroenteritisthis appears to be improving. Chronic nausea vomiting diarrheaunclear etiology. See above, wonder about exposure to recurrent infections or food poisoning at home environment, wonder about polypharmacy or changing med regimen or up/down with adherence causing GI distress, wonder about functional or motility disorders. Given that she is starting to feel better, follow in the controlled environment of the hospital for a day or 2, then determine further course from there. Subjective No acute events overnight. This morning, patient reports some nausea but no emesis. She has not had a bowel movement since admission. She denies headache, chest pain, shortness of breath, or abdominal pain. Review of Systems Review of Systems: All systems reviewed & are unremarkable except as noted in HPI & below Physical Exam Physical Exam: General: Tired-appearing, but alert, interactive patient in no acute distress. HEENT: Normocephalic, atraumatic. EOM intact. Good conjugate gaze. Nares patent. Moist mucosal membranes. Neck: Supple. No lymphadenopathy. Normal ROM. CV: Regular rate and rhythm. Normal S1 and S2. No murmurs gallops or rubs. Respiratory: Normal respiratory effort. Lungs clear to auscultation bilaterally. No crackles, rhonchi, or wheezes. Abdomen: Soft, large, but nondistended abdomen. No bruits heard on auscultation. No tenderness to deep palpation. No guarding or rebound. Extremities: Capillary refill <2 sec. 2+ dp equal bilaterally. No pedal edema. Neuro: Alert and oriented x3. Skin: Clean, dry, and intact. No rashes, bruises, or erythema. Results & Data Results & Data ([facility]) Vital Signs (Past 12 Hours) Vital Signs Temp Pulse Resp BP Pulse Ox O2 Del Method 10/20/22 23:18 36.8 C 84 18 101/61 98 Room Air Resident Activity Tracking Resident Involvement: Resident Care Provided Care Provided: Adult Hospital Medicine (1) Schizoaffective disorder Schizoaffective disorder type: depressive Qualified Code(s): F25.1 - Schizoaffective disorder, depressive type
[2022-10-21] MEDS: CHOLESTYRAMINE LIGHT 4 GM PKT PO SCH ×2 (12:17→22:00)
[2022-10-21] MEDS: BENZTROPINE MESYLATE 0.5 MG TAB PO SCH ×2 (13:24→20:06)
[2022-10-21] MEDS: cefTRIAXone SODIUM 2,000 MG in DEXTROSE 5% 50 ML IV SCH (15:00)
[2022-10-21] MEDS ORDERED: SODIUM CHLORIDE 0.9% 1000ML 500 ML IV ONE (16:18)
[2022-10-21] MEDS ORDERED: DEXTROSE 50% 50 ML SYRINGE IV PRN (17:41)
[2022-10-21] MEDS ORDERED: GLUCAGON FOR INJ 1 MG VIAL SQ PRN (17:41)
[2022-10-21] MEDS ORDERED: GLUCOSE 10 TAB/TUBE PO PRN (17:41)
[2022-10-21] MEDS ORDERED: GLUCOSE 40% GEL 15 GM TUBE PO PRN (17:41)
[2022-10-21] MEDS ORDERED: CARBOHYDRATES FOR HYPOGLYCEMIA PO PRN (17:41)
--- NOTE | 2022-10-21 18:23 | Billing Data ---
Date of Service October 21, 2022 Coding Level of Care Code 50849 Subseq Hosp Care Lvl 3
[2022-10-21] MEDS: DIVALPROEX EXTENDED RELEASE 500 MG TAB PO SCH (20:04)
[2022-10-21] MEDS: rOPINIRole HCL 0.25 MG TABLET PO SCH (20:04)
[2022-10-21] MEDS: QUEtiapine FUMARATE 200 MG TAB PO SCH (20:06)
[2022-10-21] MEDS: NYSTATIN POWDER 15GM BTL EXT SCH (20:07)
[2022-10-21] MEDS: INSULIN ASPART PER UNIT SC SCH (21:59)
[2022-10-22] MEDS: LEVOTHYROXINE SODIUM 50 MCG TABLET PO SCH (07:22)
[2022-10-22 08:07] LABS: Basophils # (auto) 0.04 K/uL (0-0.2); Basophils % (auto) 0.5 %; Eosinophils # (auto) 0.29 K/uL (0-0.50); Eosinophils % (auto) 3.3 %; Hematocrit (blood only) 36.1 % (34.1-44.9); Hemoglobin 12.5 g/dl (12.0-16.0); Immature Granulocytes # (auto) 0.08 K/uL (0.00-0.02); Immature Granulocytes % (auto) 0.9 %; Lymphocytes # (auto) 3.55 K/uL (1.2-3.4); Lymphocytes % (auto) 40.7 %; Mean Corpuscular Hemoglobin 32.5 pg (25.0-34.0); Mean Corpuscular Hgb Conc 34.6 g/dL (32.0-36.0); Mean Corpuscular Volume 93.8 fL (80.0-100.0); Mean Platelet Volume 9.7 fL (9.4-12.3); Monocytes # (auto) 0.62 K/uL (0.24-0.82); Monocytes % (auto) 7.1 %; Neutrophils # (auto) 4.15 K/uL (1.4-6.5); Neutrophils % (auto) 47.5 %; Platelet Count 149 K/uL (130-400); RDW Coefficient of Variation 12.5 % (11.5-14.5); RDW Standard Deviation 43.6 fL (36.4-46.3); Red Blood Count 3.85 M/uL (3.93-5.22); White Blood Count 8.73 K/ul (4.8-10.8)
[2022-10-22 08:41] LABS: Alanine Aminotransferase 7 U/L (7-52); Albumin Globulin Ratio 1.1 (0.9-2); Albumin Level 2.8 gm/dl (3.4-5.0); Alkaline Phosphatase 54 U/L (34-104); Anion Gap 4 (3-11); BUN Creatinine Ratio 8.1 (10-20); Bilirubin,Total 0.3 mg/dl (0.2-1.0); Blood Urea Nitrogen 6 mg/dl (6-23); Calcium 8.6 mg/dl (8.5-10.1); Carbon Dioxide 30 mmol/L (21-32); Chloride 103 mmol/L (98-107); Creatinine Clr Calc Pharmacy 85.3 ml/min; Est GFR (African American) 98.5 ml/min; Globulin 2.6 gm/dl (2.5-4.0); Glucose 128 mg/dl (70-99(Fasting)); Sodium 137 mmol/L (136-145); Total Protein 5.4 gm/dl (6.0-8.3)
[2022-10-22] MEDS: busPIRone 15 MG TAB PO SCH ×3 (08:52→21:54)
[2022-10-22] MEDS: BENZTROPINE MESYLATE 0.5 MG TAB PO SCH ×2 (08:52→21:53)
[2022-10-22] MEDS: ESCITALOPRAM OXALATE 20 MG TAB PO SCH (08:52)
[2022-10-22] MEDS: FAMOTIDINE 20 MG TAB PO SCH (08:53)
[2022-10-22] MEDS: NYSTATIN POWDER 15GM BTL EXT SCH ×2 (08:53→21:51)
[2022-10-22] MEDS: PANTOprazole 40 MG TAB PO SCH (08:54)
[2022-10-22] MEDS: RIVAROXABAN 20 MG TAB PO SCH (08:54)
[2022-10-22 09:34] LABS: Estimated Average Glucose 134 mg/dl; Hemoglobin A1C 6.3 % (4.5-5.6)
[2022-10-22] MEDS: INSULIN ASPART PER UNIT SC SCH ×4 (09:39→21:17)
[2022-10-22 09:59] LABS: Potassium 3.7 mmol/L (3.5-5.1)
[2022-10-22] MEDS: CHOLESTYRAMINE LIGHT 4 GM PKT PO SCH ×2 (10:46→23:54)
[2022-10-22] MEDS: cefTRIAXone SODIUM 2,000 MG in DEXTROSE 5% 50 ML IV SCH (14:09)
--- NOTE | 2022-10-22 17:48 | Hospitalist Progress Note ---
Date of Service October 22, 2022 Assessment & Plan (1) UTI (urinary tract infection): Plan: 67y/o female patient with a past medical history of GERD, IBS, hypothyroidism, Schizoaffective disorder, and anxiety presenting with abdominal pain, diarrhea, nausea, and vomiting. Currently managing for viral enteritis (+ norovirus). UTI -UA showed proteinuria, ketonuria, hematuria, nitrite positive, 2+ LE. -Positive for urinary symptoms: Bladder spasms * Ceftriaxone 2g IV q24h x5 days. Viral enteritis -Stool positive for Norovirus * Conservative management: Encourage oral hydration, with bolus IVF supplementat ion as needed * Zofran as needed for nausea. May convert to IV if patient vomits. * Will likely keep for supervision-further investigation warranted, given patient's recurrent episodes of gastroenteritis. Consider infectious source at home. Attempted to contact daughter to obtain a sense of home life, living situation, to no avail. Will try again tomorrow. History of pulmonary embolism -Xarelto stopped on admission. FOBT negative * Resumed Xarelto 20 mg p.o. every morning Schizoaffective Disorder * Continue Cogentin * Continue Depakote * Continue Seroquel Anxiety * Continue Buspar * Continue Lexapro Restless Leg Syndrome * Continue Ropinirole Hypothyroid * Continue Synthroid GERD -Chronic and well controlled * Continue Pepcid, Protonix Type 2 diabetes -Patient takes metformin at home. Held on admission. * Sliding scale insulin ordered: NovoLog after meals. Target BSG range 100 to 140 mg/dL. CF = 30 mg/dL/unit. CR = 13 g/unit * Glucose checks at mealtimes, at bedtime Diet: Regular DVT prophylaxis: Rivaroxaban 20 mg every morning Code: Full code Dispo: MedSurg (2) Enteritis due to [place] virus: (3) Schizoaffective disorder: (4) Restless leg: (5) Anxiety: (6) Hypothyroid: (7) GERD (gastroesophageal reflux disease): Admission and Anticipated Discharge Date Admission Date: October 20, 2022 Supervising Physician Co-Signing Physician Notes I personally examined the patient and verified all lopez points of history and exam, discussed case, and agree with decision making with Dr Purdy no further vomiting/diarrhea. eating well. . Vitals noted, in general she is awake and alert pleasant no distress. Breathing unlabored no accessory muscle use good effort. Skin shows no rashes no pallor or icterus present abdomen soft nondistended nontender no masses organomegaly. Acute nausea vomiting diarrheaappears to be due to norovirus gastroenteritisthis appears to be improving. Chronic nausea vomiting diarrheaunclear etiology. See above, wonder about exposure to recurrent infections or food poisoning at home environment, wonder about polypharmacy or changing med regimen or up/down with adherence causing GI distress, wonder about functional or motility disorders. Given that she is starting to feel better, continue to follow in the controlled environment of the hospital for a day or 2, then determine further course from there. Subjective No acute events overnight. Patient resting comfortably on arrival this morning. She denies any acute complaints. She feels much better today than she did yesterday. She tolerated breakfast and lunch well. Review of Systems Review of Systems: All systems reviewed & are unremarkable except as noted in HPI & below Physical Exam Physical Exam: General: Well-appearing, alert, interactive, and in no acute distress. HEENT: Normocephalic, atraumatic. EOM intact. Good conjugate gaze. Nares patent. Moist mucosal membranes. Neck: Supple. No lymphadenopathy. Normal ROM. CV: Regular rate and rhythm. Normal S1 and S2. No murmurs gallops or rubs. Respiratory: Normal respiratory effort. Lungs clear to auscultation bilaterally. No crackles, rhonchi, or wheezes. Abdomen: Soft, nondistended abdomen. No bruits heard on auscultation. No tenderness to deep palpation. No guarding or rebound. Extremities: Capillary refill <2 sec. 2+ dp equal bilaterally. No pedal edema. Neuro: Alert and oriented x3. Skin: Clean, dry, and intact. No rashes, bruises, or erythema. Results & Data Results & Data ([facility]) Vital Signs (Past 12 Hours) Vital Signs Temp Pulse Resp BP Pulse Ox O2 Del Method O2 Flow Rate 10/22/22 16:32 36.7 C 78 18 96/63 L 94 Room Air 10/22/22 16:17 36.7 C 85 18 90/68 L 91 Room Air 10/22/22 12:52 94 Room Air 10/22/22 07:55 Room Air 10/22/22 09:55 94 Nasal Cannula 2 10/22/22 09:54 88 L Room Air 12/08/22 08:51 93 Room Air 10/22/22 07:47 36.6 C 78 18 123/73 91 Room Air Resident Activity Tracking Resident Involvement: Resident Care Provided Care Provided: Adult Hospital Medicine (1) Schizoaffective disorder Schizoaffective disorder type: depressive Qualified Code(s): F25.1 - Schizoaffective disorder, depressive type
--- NOTE | 2022-10-22 19:04 | Billing Data ---
Date of Service October 22, 2022 Coding Level of Care Code 15228 Subseq Hosp Care Lvl 3
[2022-10-22] MEDS: DIVALPROEX EXTENDED RELEASE 500 MG TAB PO SCH (21:53)
[2022-10-22] MEDS: rOPINIRole HCL 0.25 MG TABLET PO SCH (21:53)
[2022-10-22] MEDS: QUEtiapine FUMARATE 200 MG TAB PO SCH (21:54)
[2022-10-22] MEDS: ACETAMINOPHEN 325 MG TAB PO PRN (23:13)
[2022-10-23 06:48] LABS: Hematocrit (blood only) 37.4 % (34.1-44.9); Mean Corpuscular Hemoglobin 32.3 pg (25.0-34.0); Mean Corpuscular Hgb Conc 34.8 g/dL (32.0-36.0); Mean Corpuscular Volume 92.8 fL (80.0-100.0); Mean Platelet Volume 9.9 fL (9.4-12.3); Platelet Count 152 K/uL (130-400); RDW Coefficient of Variation 12.5 % (11.5-14.5); RDW Standard Deviation 42.5 fL (36.4-46.3); Red Blood Count 4.03 M/uL (3.93-5.22); White Blood Count 6.91 K/ul (4.8-10.8)
[2022-10-23] MEDS: LEVOTHYROXINE SODIUM 50 MCG TABLET PO SCH (07:01)
[2022-10-23 07:08] LABS: Albumin Globulin Ratio 1.2 (0.9-2); Albumin Level 2.9 gm/dl (3.4-5.0); BUN Creatinine Ratio 11.3 (10-20); Bilirubin,Total 0.3 mg/dl (0.2-1.0); Calcium 8.6 mg/dl (8.5-10.1); Creatinine Clr Calc Pharmacy 101.8 ml/min; Est GFR (African American) 109.7 ml/min; Est GFR (Non-African American) 94.6 ml/min; Globulin 2.5 gm/dl (2.5-4.0); Potassium 3.9 mmol/L (3.5-5.1); Total Protein 5.4 gm/dl (6.0-8.3)
[2022-10-23 07:48] LABS: Basophils # (auto) 0.05 K/uL (0-0.2); Basophils % (auto) 0.7 %; Eosinophils # (auto) 0.25 K/uL (0-0.50); Eosinophils % (auto) 3.6 %; Immature Granulocytes # (auto) 0.07 K/uL (0.00-0.02); Lymphocytes # (auto) 3.39 K/uL (1.2-3.4); Lymphocytes % (auto) 49.1 %; Monocytes # (auto) 0.49 K/uL (0.24-0.82); Monocytes % (auto) 7.1 %; Neutrophils # (auto) 2.66 K/uL (1.4-6.5); Neutrophils % (auto) 38.5 %
[2022-10-23] MEDS: busPIRone 15 MG TAB PO SCH ×3 (08:18→20:43)
[2022-10-23] MEDS: NYSTATIN POWDER 15GM BTL EXT SCH ×2 (08:18→20:47)
[2022-10-23] MEDS: BENZTROPINE MESYLATE 0.5 MG TAB PO SCH ×2 (08:18→20:44)
[2022-10-23] MEDS: PANTOprazole 40 MG TAB PO SCH (08:18)
[2022-10-23] MEDS: RIVAROXABAN 20 MG TAB PO SCH (08:18)
[2022-10-23] MEDS: FAMOTIDINE 20 MG TAB PO SCH (08:18)
[2022-10-23] MEDS: ESCITALOPRAM OXALATE 20 MG TAB PO SCH (08:18)
[2022-10-23] MEDS: INSULIN ASPART PER UNIT SC SCH ×4 (08:33→21:06)
--- NOTE | 2022-10-23 09:29 | Medical Student Progress Note ---
Date of Service October 23, 2022 Assessment & Plan (1) UTI (urinary tract infection): Plan: 67y/o female patient with a past medical history of GERD, IBS, hypothyroidism, Schizoaffective disorder, and anxiety presenting with abdominal pain, diarrhea, nausea, and vomiting. Currently managing for viral enteritis (+ norovirus). UTI -UA showed proteinuria, ketonuria, hematuria, nitrite positive, 2+ LE. -Positive for urinary symptoms: Bladder spasms & dysuria * Ceftriaxone 2g IV q24h x7 days beginning 10/20. Patient received x 4 days before being discharged. * Convert to Cefdinir PO 300 mg BID x 3 days to complete the abx course. -Urine culture showed E. coli sensitive to ceftriaxone. Viral enteritis -Stool positive for Norovirus * Conservative management: Encourage oral hydration, with bolus IVF supplemen tation as needed * Zofran as needed for nausea. May convert to IV if patient vomits. * Will likely keep for supervision-further investigation warranted, given patient's recurrent episodes of gastroenteritis. Consider infectious source at home. Attempted to contact daughter to obtain a sense of home life, living situation, to no avail. * Given patient's poor hand hygiene, was counseled on handwashing after using the bathroom and prior to eating or touching her face. * Encourage patient get a PCP to ensure close and recurrent follow up. She would be an ideal candidate for home visit from PCP to assess living situation and potential infectious cause at home. * Also continue to encourage drinking at least 60-70 oz of water per day. Insomnia - History of chronic insomnia, previously controlled by Klonopin but discontinued d/t daytime somnolence and other medication side effects prior to hospital admission. * Counseled patient on sleep hygiene to manage anxiety. * Already receiving Seroquel 400 mg PO qhs for schizoaffective disorder. * Plan to prescribe melatonin to improve sleep. Encourage close follow up with PCP to assess effectiveness. [employer] History - Patient reports history of exploratory procedure with [employer] with no follow up. Expressed concerns regarding results. * Reassured patient that her CT abdomen/pelvis from 10/20 reveals no apparent masses. * Encouraged patient to set up outpatient follow up with [employer], in addition to with her PCP. Hemorrhoids * Patient has history of hemorrhoids, so her painful bowel movement which required a lot of straining and produced a stool with blood seems related to hemorrhoids. Additionally, the timeframe of this event is unclear, as patient cannot recall if it occurred during hospitalization, days, or even months prior. * FOBT at admission was negative. Patient also had a colonoscopy performed in April 2021 which reported polyps, diverticulosis, and internal hemorrhoids. Suppose this recent event was related to her hemorrhoids. Since that colonscopy was 1.5 years ago, no further workup is needed at this time. History of pulmonary embolism -Xarelto stopped on admission. FOBT negative * Resumed Xarelto 20 mg p.o. every morning Schizoaffective Disorder * Continue Cogentin * Continue Depakote * Continue Seroquel Anxiety * Continue Buspar * Continue Lexapro Restless Leg Syndrome * Continue Ropinirole Hypothyroid * Continue Synthroid GERD -Chronic and well controlled * Continue Pepcid * Suspect Protonix was stopped at some point, but she has been receiving it in the hospital. Ensure that patient has outpatient script of Protonix and is taking medication consistently. Type 2 diabetes -Patient takes metformin at home. Held on admission. * Sliding scale insulin ordered: NovoLog after meals. Target BSG range 100 to 140 mg/dL. CF = 30 mg/dL/unit. CR = 13 g/unit * Glucose checks at mealtimes, at bedtime Diet: Regular DVT prophylaxis: Rivaroxaban 20 mg every morning Code: Full code Dispo: MedSurg (2) Enteritis due to [place] virus: (3) Schizoaffective disorder: Schizoaffective disorder type: depressive Qualified Code(s): F25.1 - Schizoaffective disorder, depressive type (4) Restless leg: (5) Anxiety: (6) Hypothyroid: (7) GERD (gastroesophageal reflux disease): Admission and Anticipated Discharge Date Admission Date: October 20, 2022 Supervising Attestation I personally examined the patient and verified all lopez points of history and exam, discussed case, and agree with decision making with Scott Becerra MS2 Feels good and would like to go home. Extensive discussion with patient, outlined in her discharge instructions as well as far as a summary of the conversation Vitals noted, in general she is awake and alert pleasant no distress. Breathing unlabored no accessory muscle use good effort. Skin shows no rashes no pallor or icterus present abdomen soft nondistended nontender no masses organomegaly. Acute nausea vomiting diarrheaappears to be due to norovirus gastroenteritisimproved/safe and stable for home. Chronic nausea vomiting diarrheaunclear etiology. See above, wonder about exposure to recurrent infections or food poisoning at home environment, wonder about polypharmacy or changing med regimen or up/down with adherence causing GI distress, possibly metformin side effect, least likely wonder about functional or motility disorders. Encouraged handwashing and discussed how fecal oral transmission occurs, otherwise see discharge instructions for outline of discussion with patient. Subjective No acute events overnight. She denies any acute complaints. She is continuing to feel much better with improved energy. She has been tolerating food well. Has not been drinking much water, as she does not enjoy it and worries she will become nauseous. She had one episode of nausea yesterday; reports she took Zofran which resolved her nausea and she has not had another episode since. No vomiting. Her stools are now more solid and her diarrhea is resolved; she is pas sing a bowel movement about once per day. Does endorse worsening bladder spasms/cramping and dysuria, which had previously resolved. Denies hematuria. Still having intermittent headaches, improved by tylenol. Her back and flank pain have improved. Denies new chest pain, SOB, congestion, cough. Regarding hand hygiene, she does not wash her hands after using the bathroom or before eating food. She has had difficulty sleeping recently, as she was previously prescribed klonopin for sleep, but that medication was discontinued prior to this hospital visit d/t daytime somnolence. She also reports recent heartburn, as she states one of her related medications was recently stopped. Also reports an episode of blood in her stool, but cannot recall when this event occurred or if it occurred during this hospital stay; reports she has a history of hemorrhoids and was significantly straining to pass this bowel movement. Lastly, reports a history of seeing [employer] for an exploratory procedure, but she never followed up on results, has not seen [employer] in 8 years, and is now concerned. Review of Systems Review of Systems: As noted in HPI. Physical Exam Constitutional: Well-developed female in no acute distress. Resting comfortably in bed. Eyes: No scleral icterus. [place] conjunctivae. ENMT: Slightly dry mucous membranes. No erythema, lesions, exudate. Neck: Supple with full ROM. Respiratory: No respiratory distress. Lungs clear to auscultation bilaterally. Cardiovascular: Regular rate and rhythm. No murmurs, rubs, gallops. Good capillary refill. No LE edema. 2+ radial pulses. Gastrointestinal (Abdomen): Bowel sounds present. Soft, nontender, nondistended. No masses palpated. Skin: Warm and dry. No rashes. Neurologic: Alert & oriented x 3. Psychiatric: Appropriate mood and affect. Results & Data ([facility]) Vital Signs (Past 12 Hours) Vital Signs Temp Pulse Resp BP BP Pulse Ox O2 Del Method 10/23/22 07:30 Room Air 10/23/22 07:05 36.4 C L 69 18 127/82 95 Room Air 10/22/22 23:00 36.8 C 75 18 99/68 L 95 Room Air 10/22/22 21:50 Room Air
[2022-10-23] MEDS: CHOLESTYRAMINE LIGHT 4 GM PKT PO SCH ×2 (09:56→20:47)
[2022-10-23] MEDS: cefTRIAXone SODIUM 2,000 MG in DEXTROSE 5% 50 ML IV SCH (13:35)
--- NOTE | 2022-10-23 16:37 | Discharge Summary ---
Date of Service October 24, 2022 Admission HPI Per Admitting Provider HPI Tierra Gil is a 67-year-old female with a PMH of SAD, anxiety, hypothyroidism, IBS, GERD, and restless leg syndrome who presented to the emergency room last night with nausea, vomiting, diarrhea, and abdominal pain. Patient could not determine when symptoms began, but reports symptoms evolved over the last several days, worse last night with accompanying fatigue.Patient states she has been unable to keep down fluids, eat, or take her oral medications. She characterizes her vomit and stool as black. Denies blood in her stool or vomit. Upon our evaluation, nursing reports she has had 4 bowel movements this morning. States her abdominal pain is generalized, sharp, achy, and occasionally radiates to her chest; however, she denies distinct chest pain. Endorses chills and a headache. Also endorses SOB at baseline, which she feels is due to smoking. Denies myalgias, arthralgias, cough, congestion, back pain, flank pain, night sweats, subjective fevers. She has not tried any medications for symptomatic relief over the last couple days. Her CT abdomen/pelvis ordered in the ED was remarkable for mild bladder wall thickening and a small hiatal hernia. She also reports recent dysuria, cramping with urination, and swirls of blood in her urine. Reports a urine color of malissa yellow. She states she has previously had similar episodes of vomiting and diarrhea for various reasons. She was most recently hospitalized at [facility] in early September with nausea and vomiting of uncertain etiology. She states she has used antibiotics for UTI within the last several months. She denies any prior history of C. difficile. Patient denies any recent change in diet or medications. PMH: She has been seen by GI, but denies recent changes to medication regimen. Her EGD from April 2021 reports gastritis and gastric polyps. Her colonoscopy from April 2021 reports polyps, diverticulosis, and internal hemorrhoids. Surgical History: section x 2 Hysterectomy Social History: Tobacco: Has been smoking cigarettes since age 12-13. Smokes 2-4 packs per day. No alcohol or substance use. Family History: Bowel cancer - mom & dad No history of bladder, uterine, or ovarian cancer. No history of IBD. Admission Exam Per Admitting Provider Constitutional: Uncomfortable appearing, but in no acute distress. Resting in bed. Eyes: Sclerae anicteric and normal conjunctivae. ENMT: Mildly dry mucous membranes. No exudate or erythema. Neck: normal visual inspectionNeck supple. Respiratory: Crackles in bilateral bases. Breath sounds clear to auscultation in all other lung baker. Cardiovascular: Regular rate & rhythm. No murmurs, rubs, gallops. Normal capillary refill. No lower extremity edema. Gastrointestinal (Abdomen): Abdomen mildly distended. Soft. Bowel sounds present. Generalized tenderness to palpation with more tenderness over LLQ. Voluntary guarding. No rebound tenderness. No masses palpated. Skin: Warm & dry. No rashes. Neurologic: Alert & oriented x 3. Psychiatric: Appropriate mood & affect. Principal Diagnosis COPD exacerbation Discharge Exam General: Well-appearing, alert, interactive, and in no acute distress. HEENT: Normocephalic, atraumatic. EOM intact. Good conjugate gaze. Nares patent. Moist mucosal membranes. Neck: Supple. No lymphadenopathy. Normal ROM. CV: Regular rate and rhythm. Normal S1 and S2. No murmurs gallops or rubs. Respiratory: Normal respiratory effort. Diminished lung sounds at the bases. No crackles, rhonchi, or wheezes. Abdomen: Soft, nondistended abdomen. No bruits heard on auscultation. No tenderness to deep palpation. No guarding or rebound. Extremities: Capillary refill <2 sec. 2+ dp equal bilaterally. No pedal edema. Neuro: Alert and oriented x3. Discharge Data Allergies Allergy/AdvReac Type Severity Reaction Status Date / Time egg AdvReac Severe Vomiting Verified 08/22/22 22:04 Penicillins AdvReac Severe Vomiting Verified 08/22/22 22:04 Consultations 10/20/22 09:22 ED Decision to Admit Stat Ordered Studies 10/20/22 04:51 CT abd pelvis IV con only Urgent Hospital Course (1) UTI (urinary tract infection): 67y/o female patient with a past medical history of GERD, IBS, hypothyroidism, Schizoaffective disorder, and anxiety presenting with abdominal pain, diarrhea, nausea, and vomiting. Currently managing for viral enteritis (+ norovirus). UTI (complicated) -UA showed proteinuria, ketonuria, hematuria, nitrite positive, 2+ LE. -Positive for urinary symptoms: Bladder spasms * Ceftriaxone 2g IV q24h x5 days. Converted to p.o. cefdinir 300 mg twice daily x3 days to complete course. Viral enteritis -Stool positive for Norovirus * Conservative management: Encourage oral hydration, with bolus IVF melvin pplementation as needed * Zofran as needed for nausea. May convert to IV if patient vomits. * Will likely keep for supervision-further investigation warranted, given patient's recurrent episodes of gastroenteritis. Consider infectious source at home. Attempted to contact daughter to obtain a sense of home life, living situation, to no avail. Will try again tomorrow. History of pulmonary embolism -Xarelto stopped on admission. FOBT negative * Xarelto 20 mg p.o. every morning Schizoaffective Disorder * Continue Cogentin * Continue Depakote * Continue Seroquel Anxiety * Continue Buspar * Continue Lexapro Restless Leg Syndrome * Continue Ropinirole Hypothyroid * Continue Synthroid GERD -Chronic and well controlled * Continue Pepcid, Protonix Type 2 diabetes -Patient takes metformin at home. Held on admission. * Sliding scale insulin ordered: NovoLog after meals. Target BSG range 100 to 140 mg/dL. CF = 30 mg/dL/unit. CR = 13 g/unit * Glucose checks at mealtimes, at bedtime (2) Enteritis due to [place] virus: (3) Schizoaffective disorder: (4) Restless leg: (5) Anxiety: (6) Hypothyroid: (7) GERD (gastroesophageal reflux disease): Total Time Total Time Spent Total Time Spent (In Minutes): >30 Discharge Plan Discharge Items Patient Disposition: Home - Self-Care Reason For Visit: VOMITING,DIARRHEA Discharge Diagnosis: nausea/vomiting/diarrhea - see below Activity: Resume your previous activity Non-emergency contact: Primary Care Provider and Water And Fire Technician Call non-emergency contact if: you have any medication questions Follow-up/Referrals: PCP,NO [Primary Care Provider] - Diet: Regular Addtl Attending Provider Instructions: nausea/vomiting, diarrhea While its not 100% clear with the root cause of your episodes of nausea vomiting diarrhea are, the fact that you get better when you are in the hospital, and then have a sudden worsening when you are home definitely makes me suspicious something is happening in the home environment. Exposure, infection, etc.that is leading to these episodes -To help prove this, we kept you in the hospital an extra day or 2, and you showed nothing but improvement -The main possibilities of concern would be if you are picking up infections (particularly given that each hospital admission, reviewing the chart, looked as though you had an acute infectionbut what would be odd is having it happen over, and over, and over), if there is something shifting with your medicationsleading to gastrointestinal upset, or possibly the metformin leading to GI upset ----> As far as infections go, hand hygiene seems to be the most likely culpritif it turns out that recurrent infections truly are what was getting sick. As we discussed, handwashing/hand sanitizing is absolutely critical after going to the bathroom, and even more so right before you eat. Remember how gross it is to know that most stomach bugs are shared by "fecal oral transmission" (a little bit of feces gets on your fingersfrom wiping/from faucet knobs/from doorknobsand then when you eat that little bit gets onto your food, and into your stomach, and potentially making you sick). ---> As far as medications go, a lot of your psychiatric medications can cause GI upset, particularly if they are being abruptly stopped or startedit sounded like you take your medicines very consistently and very regularly, but definitely something that is worth double checking ---> 1 other possibility that came to my attention as I was looking over your home med list would potentially be the metforminif you know that metformin has been stopped/restarted, and you have absolutely not had any trouble with nausea/vomiting/diarrhea with the metforminthen I would have you keep taking it. At the same time, if you are not sure if this has been tried or not, or its never been stoppedbecause you come to the hospital dehydratedthat would lead us to stopping the metformin when you are hereand then typically restarting it at discharge as part of your home medications. It is not exceedingly common for metformin to cause GI upset, but it is certainly its most common side effect. So again, if you are not sure if stopping it has been tried, I would do that for a few weeks and see how you do. If you have stopped it for a few weeks and it clearly was not the culprit, then I would keep taking it. (As it relates to your diabetes, your A1c is quite good right nowif you needed to stop the metformin, probably the main "treatment" to replace it would be simply eating less starchy carbohydrates). -We would ask that you get set up with a primary care doc to keep an eye on thislike we talked, a business strategist "seems like" the right person to be looking after a nausea/vomiting/diarrhea problem, but as you can see abovethere are quite a few "nongastroenterological" potential causesso it is actually better to have this problem look after in a tag team format with a good family doc, and your business strategist urinary tract infection -It is very common when a woman has diarrhea to get a urinary tract infection. Fortunately yours is quite easy to treat. We have had you on an IV antibiotic (ceftriaxone) here in the hospitalthe bacteria are susceptible to this. While there is not an exact oral version of ceftriaxone, there are several extremely close cousins. We will send you home on a prescription for cefdinirtake 300 mg in the morning, and 300 mg in the eveningstarting tomorrow morning, for 3 more days, to round out 7 total days of treatment. -I would expect your urinary symptoms to get better over the rest of the course of antibiotics, if they do not, call your family doctor for a repeat urine culture and a repeat evaluation insomnia -As we discussed, insomnia is extremely common with anxiety. More often, trying to help settle the anxiety at bedtime is as effective, or more effective, then any medication can be -To that end, while it is hard to quiet your thoughts all the time, a few tricks can be quite helpful in quieting your thoughts at bedtime -[place] about what is bothering you right before bed. While it is difficult to truly give our problems over to God in the long haul, most people can give up control at least for the 6-8 hours they are trying to sleep. Truly give your problems over, and often that we will let you rest through to morning better -Hand and hand with the prior as above, I would strongly recommend you have a notepad next to your bed. After you have prayed about what is bothering you/what your mind is racing on, write down everything that is bothering you. This is not a time to try to solve the problems, this is not journaling about the problems, this is not where you are trying to talk yourself out of the problems even being a problemthis is simply writing everything down so that you tell your brain, "brain, we do not have to worry about this while we sleepI have written it down so we can start worrying about it again when we wake up in the morning." I have found this to be very effective for people -As far as medications go, we had discussed that medications like Klonopin (similarly Ativan, Ambien, Restoril, Xanax, etc.anything that is a benzodiazepine or closely related to a benzodiazepine) tends to lead to a degree of physical dependency, which can start to create a big problem once her body is used to the medicinelike we discussed, part of it is tolerancewhere her body gets so used to the medicine/processes so effectively, that we no longer get any real "sleepiness" benefit from the medicinesimply because her tolerance is bigger than what any dose can deliver. Also, once we have any degree of physical dependency to a benzodiazepine type medicine, we will start to need the medication to avoid withdrawaland not surprisingly, withdrawal from benzodiazepines is often insomnia or anxiety. Because of all of this, it is far better to go about the insomnia with trying to address the anxiety (hopefully the above measures will help some), and if we use medicationstrying to use ones that have a little less "baggage" -For now lets give a trial to a good dose of melatonin. As we discussed, you took melatonin before and it did not workbut a lot of [id number] preparations are fairly low dose, with no real instruction on how much to take. Because of that, it is fairly frequent that people failed melatonin really just due to not taking enough, rather than that the medicine does not work. We have sent a prescription for 5 mg of melatoninI would have you try that for a few weeks. If it is not helping, with your primary care physician's direction, I would have you increase to 10 mg. If you have tried 10 mg for a few weeks, and it is still not helping at allthen it really might not be the right medicine to help you ----> There is more risk of sedation, drug interaction, and side effectso I definitely would not do this on your own/without physician guidance, but if the melatonin is not helpingyour PCP could consider an increased dose of Seroquel at bedtime (potentially), and antihistamine at bedtime (such as diphenhydramine or hydroxyzine) or a sedating medicine like trazodone. These are methods that would have a bigger risk of sedation, or daytime sedation, or drug interactionits not that it would be intolerably dangerous to try, its just that it would be potential enough for a problem that you would definitely want physician supervision if we have to go that route hydration You noted that you often "under hydrated" because of feeling like you need to pee all the time. Like we discussed, when somebody is running around dehydrated they generally feel a lot worse than they need to. You do not need to be "all or none" with hydrationrather than drinking a whole bunch at once and then having to pee a whole bunch, if you just maintain a decent level of hydration throughout the day, you will likely feel better without constantly running to the bathroom. -It is not an exact science, but for you, somewhere between 60-70 ounces of fluid a day would be pretty reasonable -The Iceotope You are going home with is a 20 ounce cup. An easy thing to do for the next few weeks would be to drink out of the cup. Each time you empty it, use a marker to put a little/on the side of the cup. You will want to go through 3-3.5 cups a day to make it to 60-70 ounces. gynecology follow up -It is not clear what they were following you for years ago, I would definitely recommend following up with them again. Given they had concern about whether there was a cancer in therelike we discussed, since you have not seen them in about 8 years, and multiple CT scans of your abdomen/pelvis do not show some sort of horrible cancerous process, it is excessively unlikely that that is anything that was going on. Therefore, I would recommend that you follow-up for routine care and follow through on what they were seeing. Pending Studies at Discharge: No Stand-Alone Forms: [employer], Smoking Cessation Medications and DC Order Prescriptions: New melatonin 5 mg capsule 5 mg PO HS Qty: 30 0RF cefdinir 300 mg capsule 300 mg PO BID Qty: 6 0RF Continued pantoprazole [Protonix] 40 mg tablet,delayed release (DR/EC) 40 mg PO QAM buspirone 15 mg tablet 15 mg PO TID Creon 12,000-38,000 -60,000 unit capsule,delayed release(DR/EC) 1 cap PO TID Xarelto 20 mg tablet 20 mg PO QAM ropinirole 0.5 mg tablet 0.5 mg PO HS escitalopram oxalate [Lexapro] 20 mg tablet 20 mg PO QAM levothyroxine 50 mcg tablet 50 mcg PO QAM famotidine 20 mg tablet 20 mg PO DAILY folic acid 1 mg Tablet 1 mg PO QAM Qty: 30 0RF metformin 500 mg tablet 500 mg PO BID benztropine 0.5 mg tablet 0.5 mg PO BID Label Comments: pt confused, confirmed meds off external med history quetiapine 400 mg tablet 400 mg PO HS cholestyramine (with sugar) [Questran] 4 gram powder in packet 1 ea PO BID ferrous sulfate [Iron (ferrous sulfate)] 325 mg (65 mg iron) tablet 325 mg PO Q OTHER DAY divalproex [Depakote ER] 500 mg tablet extended release 24 hr 1,500 mg PO HS cyanocobalamin (vitamin B-12) [Vitamin B-12] 1,000 mcg tablet 1,000 mcg PO BID thiamine HCl (vitamin B1) [Vitamin B-1] 100 mg tablet 100 mg PO BID Discharge Orders: Discharge Order (Routine); Ordered 10/24/22 Ordered By: Sav Purdy Admission Data Admit Date/Time: 10/20/22 10:00 Attending Provider: Phong Langston Admit Provider: Geneva Mas Primary Care Provider: PCP,NO Other Providers: Phong Langston Other Interventions: Discharge Summary Assessment (RN) Last Done: 10/24/22 12:36 Supervising Physician Co-Signing Physician Notes I personally examined the patient and verified all lopez points of history and exa m, discussed case, and agree with decision making with Dr Purdy Feels good and would like to go home. Extensive discussion with patient, outlined in her discharge instructions as well as far as a summary of the conversation Vitals noted, in general she is awake and alert pleasant no distress. Breathing unlabored no accessory muscle use good effort. Skin shows no rashes no pallor or icterus present abdomen soft nondistended nontender no masses organomegaly. Acute nausea vomiting diarrheaappears to be due to norovirus gastroenteritisimproved/safe and stable for home. Chronic nausea vomiting diarrheaunclear etiology. See above, wonder about exposure to recurrent infections or food poisoning at home environment, wonder about polypharmacy or changing med regimen or up/down with adherence causing GI distress, possibly metformin side effect, least likely wonder about functional or motility disorders. Encouraged handwashing and discussed how fecal oral transmission occurs, otherwise see discharge instructions for outline of discussion with patient. Resident Activity Tracking Resident Involvement: Resident Care Provided Care Provided: Adult Hospital Medicine
[2022-10-23] MEDS ORDERED: MELATONIN 3 MG TAB PO PRN (18:39)
--- NOTE | 2022-10-23 19:53 | Billing Data ---
Date of Service October 23, 2022 Coding Level of Care Code 16174 Subseq Hosp Care Lvl 3
[2022-10-23] MEDS: DIVALPROEX EXTENDED RELEASE 500 MG TAB PO SCH (20:42)
[2022-10-23] MEDS: QUEtiapine FUMARATE 200 MG TAB PO SCH (20:43)
[2022-10-23] MEDS: ACETAMINOPHEN 325 MG TAB PO PRN (20:44)
[2022-10-23] MEDS: rOPINIRole HCL 0.25 MG TABLET PO SCH (20:44)
[2022-10-24] MEDS ORDERED: MELATONIN 3 MG TAB PO ONE (01:06)
[2022-10-24] MEDS: LEVOTHYROXINE SODIUM 50 MCG TABLET PO SCH (08:18)
[2022-10-24] MEDS: FAMOTIDINE 20 MG TAB PO SCH (08:18)
[2022-10-24] MEDS: BENZTROPINE MESYLATE 0.5 MG TAB PO SCH (08:19)
[2022-10-24] MEDS: busPIRone 15 MG TAB PO SCH ×2 (08:19→13:03)
[2022-10-24] MEDS: ESCITALOPRAM OXALATE 20 MG TAB PO SCH (08:19)
[2022-10-24] MEDS: RIVAROXABAN 20 MG TAB PO SCH (08:19)
[2022-10-24] MEDS: NYSTATIN POWDER 15GM BTL EXT SCH (08:19)
[2022-10-24] MEDS: PANTOprazole 40 MG TAB PO SCH (08:19)
[2022-10-24] MEDS: INSULIN ASPART PER UNIT SC SCH ×3 (08:42→17:29)
[2022-10-24] MEDS: CHOLESTYRAMINE LIGHT 4 GM PKT PO SCH (09:54)
--- NOTE | 2022-10-24 14:01 | Billing Data ---
Date of Service October 24, 2022 Coding Level of Care Code D/C DAY MANAGEMENT >30 MINS
[2022-10-24] MEDS: cefTRIAXone SODIUM 2,000 MG in DEXTROSE 5% 50 ML IV SCH (14:31)
--- NOTE | 2022-11-02 13:29 | Coding Query ---
PRESENT ON ADMISSION QUERY To promote full compliance with coding requirements relating to pateint care, physician participation is requested in all cases of admitting manager uncertainty. Please assist us with the question(s) below: Please place an X within the parenthesis (x). The following diagnosis isted in this patient's medical record require physician assistance to determine if they were present on admission (POA) or not. Please advise for each diagnosis whether it was present on admission, not present on admission, or if it was clinically undetermined or ruled out. 1. COPD EXACERBATION (documented only on the Discharge Summary under Principal Diagnosis) (x ) Present On Admission ( ) Not Present On Admission ( ) Clinically Undetermined ( ) Ruled-Out Thank you Caitie Garcia *Definition of the present on admission (POA)-Present on admission is defined as present at the time the order for inpatient admission occurs. Conditions that develop during an outpatient encounter prior to a written order for inpatient admission (including emergency department, observation, or outpatient surgery) are considered present on admission. MTDD
== END 2022-10-24 19:26 | disposition home or self-care (01) | DRG 392 ==
LOC: ED 01:30 → EDINP 10:00 → 3E 10-21 12:47
DX: E03.9 Hypothyroidism, unspecified; A08.11 Acute gastroenteropathy due to Norwalk agent; F25.9 Schizoaffective disorder, unspecified; K52.89 Other specified noninfective gastroenteritis and colitis; Z86.711 Personal history of pulmonary embolism; G25.81 Restless legs syndrome; Z88.0 Allergy status to penicillin; J44.1 Chronic obstructive pulmonary disease with (acute) exacerbation; E11.9 Type 2 diabetes mellitus without complications; Z79.890 Hormone replacement therapy; F17.210 Nicotine dependence, cigarettes, uncomplicated; Z91.012 Allergy to eggs; F32.A Depression, unspecified; N39.0 Urinary tract infection, site not specified; E53.8 Deficiency of other specified B group vitamins; D50.9 Iron deficiency anemia, unspecified; K52.1 Toxic gastroenteritis and colitis; Z79.899 Other long term (current) drug therapy; T38.3X5A Adverse effect of insulin and oral hypoglycemic [antidiabetic] drugs, initial encounter; Z79.01 Long term (current) use of anticoagulants; F41.9 Anxiety disorder, unspecified; Z79.84 Long term (current) use of oral hypoglycemic drugs; K21.9 Gastro-esophageal reflux disease without esophagitis

== ENCOUNTER 2022-11-10 12:24 | Inpatient (IN) ==
[2022-11-10] MEDS ORDERED: ONDANSETRON INJ 2 MG/ML 2 ML VIAL IV STA (14:43)
[2022-11-10] MEDS ORDERED: SODIUM CHLORIDE 0.9% 1000ML 1,000 ML IV ONE (14:43)
[2022-11-10 15:34] LABS: Basophils # (auto) 0.02 K/uL (0-0.2); Basophils % (auto) 0.3 %; Eosinophils # (auto) 0.12 K/uL (0-0.50); Eosinophils % (auto) 1.5 %; Hematocrit (blood only) 47.6 % (34.1-44.9); Hemoglobin 16.5 g/dl (12.0-16.0); Immature Granulocytes # (auto) 0.06 K/uL (0.00-0.02); Immature Granulocytes % (auto) 0.8 %; Lymphocytes # (auto) 2.52 K/uL (1.2-3.4); Lymphocytes % (auto) 31.7 %; Mean Corpuscular Hemoglobin 32.7 pg (25.0-34.0); Mean Corpuscular Hgb Conc 34.7 g/dL (32.0-36.0); Mean Corpuscular Volume 94.3 fL (80.0-100.0); Mean Platelet Volume 10.2 fL (9.4-12.3); Monocytes # (auto) 0.66 K/uL (0.24-0.82); Monocytes % (auto) 8.3 %; Neutrophils # (auto) 4.56 K/uL (1.4-6.5); Neutrophils % (auto) 57.4 %; Platelet Count 169 K/uL (130-400); RDW Coefficient of Variation 12.9 % (11.5-14.5); Red Blood Count 5.05 M/uL (3.93-5.22); White Blood Count 7.94 K/ul (4.8-10.8)
[2022-11-10] MEDS: LACTATED RINGER'S 1,000 ML IV SCH (15:47)
[2022-11-10 16:08] LABS: Albumin Globulin Ratio 1.1 (0.9-2); Albumin Level 3.9 gm/dl (3.4-5.0); BUN Creatinine Ratio 13.6 (10-20); Bilirubin,Total 0.8 mg/dl (0.2-1.0); Calcium 9.3 mg/dl (8.5-10.1); Creatinine Clr Calc Pharmacy 69.9 ml/min; Est GFR (African American) 79.9 ml/min; Est GFR (Non-African American) 68.9 ml/min; Globulin 3.5 gm/dl (2.5-4.0); Potassium 4.4 mmol/L (3.5-5.1); Total Protein 7.4 gm/dl (6.0-8.3)
[2022-11-10] MEDS ORDERED: SODIUM CHLORIDE 0.9% 1000ML 500 ML IV ONE (16:32)
--- NOTE | 2022-11-10 16:36 | XRay Report ---
SINGLE VIEW CHEST CLINICAL HISTORY: Cough FINDINGS: An AP, portable, upright chest radiograph is compared to study dated 08/31/2022. The cardio mediastinal silhouette is unremarkable. The lungs and pleural spaces are clear noting mild bibasilar atelectasis. No pneumothorax is seen. The skeletal structures are osteopenic. The bony thorax is kaylene sly intact. IMPRESSION: No active disease in the chest. ACT 112: Negative or not required by law. Electronically signed by: Amaury Meier M.D. 11/10/2022 4:35 PM
[2022-11-10] MEDS ORDERED: OPTIRAY 350 100ml IV ONE (17:00)
[2022-11-10 17:19] LABS: Appearance Urine Clear (Clear); Bacteria Urine Automated Negative (Negative); Bilirubin Urine Negative (Negative); Blood Urine Negative (Negative); Color Urine Yellow; Epithelial Cell Urine Auto >30 /lpf (0-5); Glucose Urine UA Negative (Negative); Ketones Urine 1+ (Negative); Leukocyte Esterase Urine 2+ (Negative); Nitrite Urine Negative (Negative); Protein Urine Negative (Negative); RBC Urine Automated 0-4 /hpf (0-4); Specific Gravity Urine 1.017 (1.000-1.030); Urobilinogen Urine Negative (Negative); pH Urine 7.5 (4.5-7.5)
--- NOTE | 2022-11-10 17:22 | Electrocardiogram Report ---
Test Reason : Blood Pressure : / mmHG Vent. Rate : 099 BPM Atrial Rate : 099 BPM P-R Int : 164 ms QRS Dur : 120 ms QT Int : 396 ms P-R-T Axes : 054 132 014 degrees QTc Int : 508 ms Normal sinus rhythm Low voltage QRS Right bundle branch block T wave abnormality, consider inferior ischemia Abnormal ECG Confirmed by David Rodriguez ([id number] on 11/10/2022 5:21:23 PM Referred By: REFERRED SELF Confirmed By:Alex Rodriguez
--- NOTE | 2022-11-10 17:26 | Emergency Department Note ---
History of Present Illness General Chief complaint: Vomiting Stated complaint: GO TO TRIAGE Time Seen by Provider: 11/10/22 14:41 History of Present Illness Provider Complaint: + nausea, + vomiting and + diarrhea Onset (ago): day(s) 2 Description of Vomiting: + watery; no bilious, no blood-streaked, no bloody or no coffee grounds Description of Diarrhea: + watery; no tarry or no bloody (bright red) Associated Abdominal Pain: No Context: + recent antibiotic use; no foreign travel, no alcohol abuse, no anticoagulant use, no smoking or no marijuana use Associated symptoms: + dysuria, + weakness, + fecal incontinence and + fatigue; no chest pain, no cough, no fever/chills, no shortness of breath, no decreased urine output, no anxiety or no bloating HPI Narrative: Patient also reports polyuria and urinary incontinence. She denies any back pain or fevers. Home Medications Medication Instructions Recorded Confirmed Type buspirone 15 mg tablet 15 mg PO TID 10/25/20 11/10/22 History eylawh-kokrnlbn-mebkmum 1 cap PO TID 10/25/20 11/10/22 History 12,000-38,000-60,000 unit capsule,delayed rel (Creon) pantoprazole 40 mg tablet,delayed 40 mg PO QAM 10/25/20 11/10/22 History release (Protonix) rivaroxaban 20 mg tablet (Xarelto) 20 mg PO QAM 10/25/20 11/10/22 History escitalopram oxalate 20 mg tablet 20 mg PO QAM 03/18/21 11/10/22 History (Lexapro) ropinirole 0.5 mg tablet 0.5 mg PO HS 03/18/21 11/10/22 History divalproex 500 mg tablet,extended 1,500 mg PO HS 06/03/21 11/10/22 History release 24 hr (Depakote ER) ferrous sulfate 325 mg (65 mg 325 mg PO Q OTHER DAY 06/03/21 11/10/22 History iron) tablet (Iron (ferrous sulfate)) cyanocobalamin (vitamin B-12) 1,000 mcg PO BID 08/05/21 11/10/22 History 1,000 mcg tablet (Vitamin B-12) thiamine HCl (vitamin B1) 100 mg 100 mg PO BID 10/11/21 11/10/22 History tablet (Vitamin B-1) levothyroxine 50 mcg tablet 50 mcg PO QAM 01/21/22 11/10/22 History famotidine 20 mg tablet 20 mg PO DAILY 02/25/22 11/10/22 History folic acid 1 mg tablet 1 mg PO QAM #30 tabs 04/14/22 11/10/22 Rx benztropine 0.5 mg tablet 0.5 mg PO BID 07/25/22 11/10/22 History cholestyramine (with sugar) 4 gram 1 ea PO BID 07/25/22 11/10/22 History powder for susp in a packet (Questran) metformin 500 mg tablet 500 mg PO BID 07/25/22 11/10/22 History quetiapine 400 mg tablet 400 mg PO HS 07/25/22 11/10/22 History melatonin 5 mg capsule 5 mg PO HS #30 caps 10/23/22 11/10/22 Rx Allergies Allergy/AdvReac Type Severity Reaction Status Date / Time egg AdvReac Severe Vomiting Verified 11/10/22 16:52 Penicillins AdvReac Severe Vomiting Verified 11/10/22 16:52 Past Med/Surg History Medical History Acute hyponatremia Anemia Anxiety and depression Arthritis Aspiration pneumonia Chronic diarrhea Diabetes Folate deficiency GERD (gastroesophageal reflux disease) History of pulmonary embolism Hyperparathyroidism Hypomagnesemia Hypothyroid Hypoxia Iron deficiency anemia Irritable bowel syndrome Nausea & vomiting Pulmonary embolism Restless leg Schizoaffective disorder Smoking Vomiting and diarrhea Weakness Surgical History History of section x2 Family History Denies family history of Inflammatory bowel disease Social History Smoking Status: Current every day smoker Tobacco Type: Cigarettes Cigarettes Per Day: 80; Second Hand Exposure: No; Hx Alcohol Use: No Hx Substance Use: No Preferred Language: [place] Communication Ability: Impaired 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 Required: No Beliefs That Will Affect Care: None marital status: Current Living Situation: Alone Current Living Situation Comment: Lives with daughter and a home health aid How many Children do You have: 2 Feels Safe at Home: Yes Assistive Devices: Hearing Aid - Bilateral and Walker Review of Systems A total of 10 systems reviewed and were otherwise negative Physical Exam Vital Signs: Vital Signs - 24 hr 11/10/22 12:39 11/10/22 15:31 11/10/22 15:32 Temperature 36.3 C L Temperature Source Temporal Artery Sc an Pulse Rate 110 H 97 H 98 H Pulse Rate from Sp O2 Sensor Respiratory Rate 18 20 19 Blood Pressure 92/67 L Blood Pressure Nu n 75 Pulse Oximetry 95 Oxygen Delivery Me thod Room Air Sepsis Recent Feve r Within 48 Hours No Sepsis New/Unexpla ined Change in Men arlen Status N/A Sepsis Action Take n by Nursing No Action Required 11/10/22 15:32 11/10/22 15:40 11/10/22 15:50 Temperature Temperature Source Pulse Rate 98 H 94 H Pulse Rate from Sp O2 Sensor 98 H 94 H Respiratory Rate 15 22 Blood Pressure 120/78 Blood Pressure Nu n 92 Pulse Oximetry 90 94 Oxygen Delivery Me thod Sepsis Recent Feve r Within 48 Hours Sepsis New/Unexpla ined Change in Men arlen Status Sepsis Action Take n by Nursing Physical Exam: Physical Exam GENERAL: She is oriented to person, place, and time. She appears well-developed and well-nourished. She does not appear distressed. HENT: Exam performed. -Head: Normocephalic and atraumatic. -Right Ear: External ear normal. No mastoid tenderness. -Left Ear: External ear normal. No mastoid tenderness. -Mouth/Throat: The oropharynx is clear and moist. No trismus in the jaw. No dental abscesses or uvula swelling. No oropharyngeal exudate or tonsillar abscesses. EYES: Conjunctivae and EOM are normal. Pupils are equal, round, and reactive to light. Right eye exhibits no discharge. Left eye exhibits no discharge. No scleral icterus. NECK: Normal range of motion. Neck supple. No JVD present. No spinous process tenderness present. No carotid bruit present. No rigidity. No tracheal deviation and normal range of motion present. No Brudzinski's sign and no Kernig's sign noted. CV: Normal rate, regular rhythm, normal heart sounds and intact distal pulses. There is no peripheral edema. Palpable radial pulses bue. PULM/CHEST: Effort normal and breath sounds normal. No respiratory distress. No stridor. She has no wheezes. She has no rales. -Chest Wall: She exhibits no tenderness. ABD: The abdomen is soft. Bowel sounds are normal. She has no distension. No mass is present. There is no tenderness. There is no rebound, no guarding, no Duarte's sign and no tenderness at McBurney's point. Rovsig negative MUSC/SKEL: Normal range of motion. There is no peripheral edema, tenderness or deformity. LYMPH: No cervical adenopathy. NEURO: She is alert and oriented to person, place, and time. She has normal strength. No cranial nerve deficit or sensory deficit. Coordination and gait normal. GCS eye subscore is 4. GCS verbal subscore is 5. GCS motor subscore is 6. Cerebellar tests wnl. SKIN: Skin is warm and dry. She is not diaphoretic. PSYCH: She has a normal mood and affect. Behavior is normal. Judgment and thought content normal. Course Course 1441: The patient was evaluated in room A4. A complete history and physical exam was performed Cardiac monitoring: An order was placed for continuous cardiac monitoring. The monitor shows a rate of 90 with sinus rhythm 1620: Lab informing that the patient has a lactic acid greater than 4 at 4.2. Based off the patient's previous ideal body weights additional 500 cc normal saline bolus ordered for the patient to equal 30 cc/kg bolus based off of ideal body weight. External medical records were reviewed. Patient was recently admitted to this facility from October 20 to October 23, 2022.During that time the patient was diagnosed with a UTI and was treated with ceftriaxone and then switched to cefdinir. She also had a positive stool culture for norovirus. 1745: Vital signs stable. Labs within normal limits with the exception of the elevated lactic acid of 4.2. Urinalysis negative. CT of the head and abdomen pelvis shows no acute pathology. Urinalysis negative. COVID swab negative. C. difficile and stool culture still pending. Discussed the case with Dr. Antonio [facility] hospitalist will evaluate the patient for admission. Administered Medications Discontinued Medications Sodium Chloride (Nss 1000ml) 1,000 mls @ 999 mls/hr IV .Q1H1M ONE Stop: 11/10/22 15:43 Last Admin: 11/10/22 15:38 Dose: 999 mls/hr Documented By: [id number] Sodium Chloride (Nss 1000ml) 500 mls @ 999 mls/hr IV .Q31M ONE Stop: 11/10/22 17:02 Last Admin: 11/10/22 17:12 Dose: 999 mls/hr Documented By: [id number] Ioversol (Optiray 350 100ml) 84 ml IV ONCE ONE Stop: 11/10/22 17:01 Last Admin: 11/10/22 17:00 Dose: 84 ml Documented By: [facility] Ondansetron HCl (Ondansetron Inj 2 Mg/Ml 2 Ml Vial) 4 mg IV NOW STA Stop: 11/10/22 14:44 Last Admin: 11/10/22 15:38 Dose: 4 mg Documented By: [id number] Medical Decision Making Laboratory Data Result diagrams: 11/10/22 15:25 11/10/22 15:25 Lab Results 11/10/22 11/10/22 11/10/22 Range/Units 15:23 15:25 15:25 WBC 7.94 (4.8-10.8) K/ul RBC 5.05 (3.93-5.22) M/uL Hgb 16.5 H (12.0-16.0) g/dl Hct 47.6 H (34.1-44.9) % MCV 94.3 (80.0-100.0) fL MCH 32.7 (25.0-34.0) pg MCHC 34.7 (32.0-36.0) g/dL RDW Std Deviation 44.0 (36.4-46.3) fL RDW Coeff of [place] 12.9 (11.5-14.5) % Plt Count 169 (130-400) K/uL MPV 10.2 (9.4-12.3) fL Immature Gran % (Auto) 0.8 % Neut % (Auto) 57.4 % Lymph % (Auto) 31.7 % [place] % (Auto) 8.3 % Eos % (Auto) 1.5 % Baso % (Auto) 0.3 % Neut # (Auto) 4.56 (1.4-6.5) K/uL Lymph # (Auto) 2.52 (1.2-3.4) K/uL [place] # (Auto) 0.66 (0.24-0.82) K/uL Eos # (Auto) 0.12 (0-0.50) K/uL Baso # (Auto) 0.02 (0-0.2) K/uL Immature Gran # (Auto) 0.06 H (0.00-0.02) K/uL Sodium 139 (136-145) mmol/L Potassium 4.4 (3.5-5.1) mmol/L Chloride 101 (98-107) mmol/L Carbon Dioxide 25 (21-32) mmol/L Anion Gap 13 H (3-11) BUN 12 (6-23) mg/dl Creatinine 0.88 (0.6-1.2) mg/dl Est Cr Clr Drug Dosing 69.9 ml/min Est GFR ( Amer) 79.9 ml/min Est GFR (Non-Af Amer) 68.9 ml/min BUN/Creatinine Ratio 13.6 (10-20) Glucose 159 H (70-99(Fasting)) mg/dl Lactate (0.4-2.0) mmol/L Calcium 9.3 (8.5-10.1) mg/dl Total Bilirubin 0.8 (0.2-1.0) mg/dl AST 46 H (13-39) U/L ALT 13 (7-52) U/L Alkaline Phosphatase 91 (34-104) U/L Total Protein 7.4 (6.0-8.3) gm/dl Albumin 3.9 (3.4-5.0) gm/dl Globulin 3.5 (2.5-4.0) gm/dl Albumin/Globulin Ratio 1.1 (0.9-2) Lipase 9 L (11-82) U/L Urine Color Urine Appearance (Clear) Urine pH (4.5-7.5) Ur Specific [place] (1.000-1.030) Urine Protein (Negative) Urine Glucose (UA) (Negative) Urine Ketones (Negative) Urine Blood (Negative) Urine Nitrite (Negative) Urine Bilirubin (Negative) Urine Urobilinogen (Negative) Ur Leukocyte Esterase (Negative) Urine WBC (Auto) (0-5) /hpf Urine RBC (Auto) (0-4) /hpf U Hyaline Cast (Auto) (0-5) /lpf U Epithel Cells (Auto) (0-5) /lpf Urine Bacteria (Auto) (Negative) SARS-CoV-2, RNA, NAAT NEGATIVE (NEGATIVE) 11/10/22 11/10/22 Range/Units 15:25 16:40 WBC (4.8-10.8) K/ul RBC (3.93-5.22) M/uL Hgb (12.0-16.0) g/dl Hct (34.1-44.9) % MCV (80.0-100.0) fL MCH (25.0-34.0) pg MCHC (32.0-36.0) g/dL RDW Std Deviation (36.4-46.3) fL RDW Coeff of [place] (11.5-14.5) % Plt Count (130-400) K/uL MPV (9.4-12.3) fL Immature Gran % (Auto) % Neut % (Auto) % Lymph % (Auto) % [place] % (Auto) % Eos % (Auto) % Baso % (Auto) % Neut # (Auto) (1.4-6.5) K/uL Lymph # (Auto) (1.2-3.4) K/uL [place] # (Auto) (0.24-0.82) K/uL Eos # (Auto) (0-0.50) K/uL Baso # (Auto) (0-0.2) K/uL Immature Gran # (Auto) (0.00-0.02) K/uL Sodium (136-145) mmol/L Potassium (3.5-5.1) mmol/L Chloride (98-107) mmol/L Carbon Dioxide (21-32) mmol/L Anion Gap (3-11) BUN (6-23) mg/dl Creatinine (0.6-1.2) mg/dl Est Cr Clr Drug Dosing ml/min Est GFR ( Amer) ml/min Est GFR (Non-Af Amer) ml/min BUN/Creatinine Ratio (10-20) Glucose (70-99(Fasting)) mg/dl Lactate 4.2 H* (0.4-2.0) mmol/L Calcium (8.5-10.1) mg/dl Total Bilirubin (0.2-1.0) mg/dl AST (13-39) U/L ALT (7-52) U/L Alkaline Phosphatase (34-104) U/L Total Protein (6.0-8.3) gm/dl Albumin (3.4-5.0) gm/dl Globulin (2.5-4.0) gm/dl Albumin/Globulin Ratio (0.9-2) Lipase (11-82) U/L Urine Color Yellow Urine Appearance Clear (Clear) Urine pH 7.5 (4.5-7.5) Ur Specific [place] 1.017 (1.000-1.030) Urine Protein Negative (Negative) Urine Glucose (UA) Negative (Negative) Urine Ketones 1+ H (Negative) Urine Blood Negative (Negative) Urine Nitrite Negative (Negative) Urine Bilirubin Negative (Negative) Urine Urobilinogen Negative (Negative) Ur Leukocyte Esterase 2+ H (Negative) Urine WBC (Auto) 1-5 (0-5) /hpf Urine RBC (Auto) 0-4 (0-4) /hpf U Hyaline Cast (Auto) 1-5 (0-5) /lpf U Epithel Cells (Auto) >30 H (0-5) /lpf Urine Bacteria (Auto) Negative (Negative) SARS-CoV-2, RNA, NAAT (NEGATIVE) Imaging Data Radiologist's Impression: Abdomen/Pelvis CT 11/10/22 16:23 CT abd pelvis IV con only CLINICAL HISTORY: nvd TECHNIQUE: Helical axial images of the abdomen and pelvis were obtained and displayed. Automated dose lowering techniques and/or adjustment according to patient size were utilized for this exam. This exam was performed with intravenous contrast. CT DOSE: 1612.42 mGy.cm COMPARISON: Comparison is made to CT abdomen pelvis 6 FINDINGS: Lower chest: Bibasilar atelectasis versus scarring is seen. Liver: Unremarkable. No focal lesions are seen. Gallbladder and biliary tree: Patient is status post cholecystectomy. Physiologic prominence of the biliary ducts is noted. Pancreas: Unremarkable, no focal lesions. Spleen: Unremarkable. Adrenals: Unremarkable. Kidneys and ureters: Unremarkable. Bladder: The bladder is under distended and mildly thick-walled. Reproductive organs: Unremarkable. Bowel: Unremarkable appearance of the bowel. The appendix is normal. A hiatal hernia is seen. Lymph nodes Retroperitoneal: Unremarkable. Pelvic: Unremarkable. Mesenteric: Unremarkable. Peritoneum: Normal. Vessels: Unremarkable. Abdominal wall: Unremarkable. Bones: Degenerative changes in the visualized spine. IMPRESSION: 1. No acute abnormalities and in particular no evidence of bowel obstruction or pancreatitis. 2. The bladder is under distended and mildly thick walled, correlation with urinalysis is recommended to exclude cystitis. ACT 112: Negative or not required by law. Electronically signed by: Devon España M.D. 11/10/2022 5:24 PM Chest X-Ray 11/10/22 16:23 SINGLE VIEW CHEST CLINICAL HISTORY: Cough FINDINGS: An AP, portable, upright chest radiograph is compared to study dated 08/31/2022. The cardiomediastinal silhouette is unremarkable. The lungs and pleural spaces are clear noting mild bibasilar atelectasis. No pneumothorax is seen. The skeletal structures are osteopenic. The bony thorax is grossly intact. IMPRESSION: No active disease in the chest. ACT 112: Negative or not required by law. Electronically signed by: Amaury Meier M.D. 11/10/2022 4:35 PM ECG Data Additional Comments: EKG interpreted by me shows sinus rhythm with rate 99. IN 164 QRS [address] elevation or ST depression. Right bundle branch block present. [facility] Narrative 1441: The patient was evaluated in room A4. A complete history and physical exam was performed Cardiac monitoring: An order was placed for continuous cardiac monitoring. The monitor shows a rate of 90 with sinus rhythm 1620: Lab informing that the patient has a lactic acid greater than 4 at 4.2. Based off the patient's previous ideal body weights additional 500 cc normal saline bolus ordered for the patient to equal 30 cc/kg bolus based off of ideal body weight. External medical records were reviewed. Patient was recently admitted to this facility from October 20 to October 23, 2022.During that time the patient was diagnosed with a UTI and was treated with ceftriaxone and then switched to cefdinir. She also had a positive stool culture for norovirus. 1745: Vital signs stable. Labs within normal limits with the exception of the elevated lactic acid of 4.2. Urinalysis negative. CT of the head and abdomen pelvis shows no acute pathology. Urinalysis negative. COVID swab negative. C. difficile and stool culture still pending. Discussed the case with Dr. Antonio [facility] hospitalist will evaluate the patient for admission. Impression & Plan Lactic acidemia, Diarrhea, Nausea & vomiting Discharge Plan Visit Data Chief Complaint: Vomiting Stated Complaint: GO TO TRIAGE ED Provider: Alexandru Farris Discharge Problem: Lactic acidemia, Diarrhea, Nausea & vomiting Patient Disposition: Being Evaluated by Hospitalist Forms Stand Alone Forms: [facility] Prescriptions Prescriptions: No Action pantoprazole [Protonix] 40 mg tablet,delayed release (DR/EC) 40 mg PO QAM buspirone 15 mg tablet 15 mg PO TID Creon 12,000-38,000 -60,000 unit capsule,delayed release(DR/EC) 1 cap PO TID Xarelto 20 mg tablet 20 mg PO QAM ropinirole 0.5 mg tablet 0.5 mg PO HS escitalopram oxalate [Lexapro] 20 mg tablet 20 mg PO QAM levothyroxine 50 mcg tablet 50 mcg PO QAM famotidine 20 mg tablet 20 mg PO DAILY folic acid 1 mg Tablet 1 mg PO QAM Qty: 30 0RF metformin 500 mg tablet 500 mg PO BID benztropine 0.5 mg tablet 0.5 mg PO BID Label Comments: pt confused, confirmed meds off external med history quetiapine 400 mg tablet 400 mg PO HS cholestyramine (with sugar) [Questran] 4 gram powder in packet 1 ea PO BID melatonin 5 mg capsule 5 mg PO HS Qty: 30 0RF ferrous sulfate [Iron (ferrous sulfate)] 325 mg (65 mg iron) tablet 325 mg PO Q OTHER DAY divalproex [Depakote ER] 500 mg tablet extended release 24 hr 1,500 mg PO HS cyanocobalamin (vitamin B-12) [Vitamin B-12] 1,000 mcg tablet 1,000 mcg PO BID thiamine HCl (vitamin B1) [Vitamin B-1] 100 mg tablet 100 mg PO BID Referrals Referrals: PCP,NO [Primary Care Provider] -
--- NOTE | 2022-11-10 17:55 | History & Physical Report ---
Date of Service November 10, 2022 Assessment & Plan (1) Sepsis: Plan: -Admit to med/tele -Patient is currently afebrile, hemodynamically stable, and stable on RA -Was noted to be tachycardic and mildly hypotensive on arrival to the ED today, is experiencing symptoms consistent with recurrent gastroenteritis, the cause is unknown at this time -Was just admitted from 10/20/22-10/23/22 for viral gastroenteritis due to Norovirus and an UTI -Patient is high risk for C. diff with her recent antibiotic exposure -Patient is status post 2L NSS bolus and currently hemodynamically stable, will continue with light IV hydration with LR at 80 mL/hr x 2 bags for now -Will obtain blood cultures now, still waiting for patient to produce a stool sample for testing -CT of the abdomen/pelvis was negative for obstruction, mesenteric abnormalities, and pancreatitis. There was some findings consistent with possible cystitis but the patient is asymptomatic at this time, would follow urine cultures for now -Will hold abx for now until stool studies can be obtained -Chest xray was negative for acute findings -Will FU on repeat lactate -Monitor on tele/pulse oximetry -AM CBC, CMP, and mag (2) Lactic acidemia: Plan: -Noted to be 4.2 on admission, now down to 2.6 after fluid resuscitation -Will continue to trend q6h until it is WNL (3) Hypothyroid: Plan: -Continue levothyroxine (4) Restless leg: Plan: -Continue requip (5) Tobacco use: Plan: -Will order nicotine patches and gum (6) GERD (gastroesophageal reflux disease): Plan: -Continue pantoprazole but will switch to IV until she can tolerate PO intake (7) History of pulmonary embolism: Plan: -Continue Xarelto (8) Schizoaffective disorder: Plan: -Continue Buspirone, Depakote, lexapro, and seroquel (9) DM II (diabetes mellitus, type II), controlled: Plan: -Hold metformin -Will start lantus at 5 units BID since her PO intake is poor -BSG goal of 110-140 -Monitor BSG q6h while oral intake is poor -Correction factor of 40 and carb ratio 14 Plan The patient was discussed with Dr. Cruz at the time of the admission History of Present Illness Chief Complaint: Nausea, vomiting, diarrhea Primary Care Provider: NO PCP Tierra Gil is a 67-year-old female with a PMH of Schizoaffective disorder, previous PE on Xarelto, DM II, anxiety, hypothyroidism, IBS, GERD, and restless leg syndrome who presented to the [facility] ED on 11/10/22 with complaints of Nausea, vomiting, and diarrhea. per chart review, the patient was recently admitted to [facility] from 10/20/22- 10/23/22 for UTI and viral enteritis. For her UTI (e. coli sensitive to ceftriaxone) she was initially started on Ceftriaxone x 5 days then was switched to Cefdinir 300 mg BID x 3 days to complete her abx course. Her stool was positive for Norovirus and she was treated symptomatically with IV fluids and prn zofran. In the Ed today she was found to be afebrile, hemodynamically stable with a soft BP of 92/67, and stable on RA. Labs were remarkable a WBC WNL, Hgb of 16.5 (up from 13.0 on 10/23 likely from dehydration), stable renal function and electrolytes, initial AG of 13 with lactate of 4.2, glucose of 159, AST of 46, lipase of 9, UA with 1+ ketones, 2+ leukocyte esterase, nitrite negative, and negative for bacteria, and covid negative. Chest xray was read as "No active disease in the chest.". CT of the abdomen/pelvis with IV contrast was read as "1. No acute abnormalities and in particular no evidence of bowel obstruction or pancreatitis. 2. The bladder is under distended and mildly thick walled, correlation with urinalysis is recommended to exclude cystitis.". Prior to admission the patient was given 2L NSS bolus and her BP improved to 120/78, she was also given zofran for nausea. At the time of the exam the patient was resting comfortably in bed in no acute distress. She states that she started to develop nausea, non-bloody emesis, and frequent, non-bloody diarrhea approximately 2 days ago. Since then she has had poor oral intake but has been able to take her medications. She is not sure if she has had fevers but has been cold, she denies chest pain and s tates that her SOB is at baseline as she still smokes approximately 2-4 packs of cigarettes daily. She denies abdominal pain but states that her nausea has been severe. When asked, she denies dysuria and hematuria, she has a hard time determining if she is having increased urinary frequency. She confirms that she completed her course of Cefdinir as prescribed on her last discharge. She does not feel as though she has been retaining fluid or had leg swelling since discharge. When I brought up the risk of C. diff due to her recent antibiotic use she states that she has had C. diff multiple times in the past. We discussed code status, she is a Full Code. Please refer to Dr. Cruz's attestation for any changes to the treatment plan. Allergies Allergy/AdvReac Type Severity Reaction Status Date / Time egg AdvReac Severe Vomiting Verified 11/10/22 16:52 Penicillins AdvReac Severe Vomiting Verified 11/10/22 16:52 Home Medications Medication Instructions Recorded Confirmed Type buspirone 15 mg tablet 15 mg PO TID 10/25/20 11/10/22 History mdhiyj-tvhkerzb-[id number] 1 cap PO TID 10/25/20 11/10/22 History 12,000-38,000-60,000 unit capsule,delayed rel (Creon) pantoprazole 40 mg tablet,delayed 40 mg PO QAM 10/25/20 11/10/22 History release (Protonix) rivaroxaban 20 mg tablet (Xarelto) 20 mg PO QAM 10/25/20 11/10/22 History escitalopram oxalate 20 mg tablet 20 mg PO QAM 03/18/21 11/10/22 History (Lexapro) ropinirole 0.5 mg tablet 0.5 mg PO HS 03/18/21 11/10/22 History divalproex 500 mg tablet,extended 1,500 mg PO HS 06/03/21 11/10/22 History release 24 hr (Depakote ER) ferrous sulfate 325 mg (65 mg 325 mg PO Q OTHER DAY 06/03/21 11/10/22 History iron) tablet (Iron (ferrous sulfate)) cyanocobalamin (vitamin B-12) 1,000 mcg PO BID 08/05/21 11/10/22 History 1,000 mcg tablet (Vitamin B-12) thiamine HCl (vitamin B1) 100 mg 100 mg PO BID 10/11/21 11/10/22 History tablet (Vitamin B-1) levothyroxine 50 mcg tablet 50 mcg PO QAM 01/21/22 11/10/22 History famotidine 20 mg tablet 20 mg PO DAILY 02/25/22 11/10/22 History folic acid 1 mg tablet 1 mg PO QAM #30 tabs 04/14/22 11/10/22 Rx benztropine 0.5 mg tablet 0.5 mg PO BID 07/25/22 11/10/22 History cholestyramine (with sugar) 4 gram 1 ea PO BID 07/25/22 11/10/22 History powder for susp in a packet (Questran) metformin 500 mg tablet 500 mg PO BID 07/25/22 11/10/22 History quetiapine 400 mg tablet 400 mg PO HS 07/25/22 11/10/22 History melatonin 5 mg capsule 5 mg PO HS #30 caps 10/23/22 11/10/22 Rx Past Med/Surg History Medical History Acute hyponatremia Anemia Anxiety and depression Arthritis Aspiration pneumonia Chronic diarrhea Diabetes Folate deficiency GERD (gastroesophageal reflux disease) History of pulmonary embolism Hyperparathyroidism Hypomagnesemia Hypothyroid Hypoxia Iron deficiency anemia Irritable bowel syndrome Nausea & vomiting Pulmonary embolism Restless leg Schizoaffective disorder Smoking Vomiting and diarrhea Weakness Surgical History History of section x2 Family History Denies family history of Inflammatory bowel disease Social History Smoking Status: Current every day smoker Tobacco Type: Cigarettes Cigarettes Per Day: 80; Second Hand Exposure: No; Hx Alcohol Use: No Hx Substance Use: No Preferred Language: Kazakh Communication Ability: Impaired 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 All systems have been reviewed and are otherwise negative. Physical Exam Physical Exam: Physical Exam: General: In no acute distress, stated age, chronically ill-appearing, poor hygiene HEENT: Normocephalic, atraumatic, no scleral icterus, pupils around round, symmetrical, and reactive to light, moist mucus membranes, trachea midline, no thyromegaly Chest/Pulm: No respiratory distress, symmetrical chest expansion, expiratory wheezing noted throughout Cardiac: tachycardic rate, regular rhythm, no murmurs noted Abdomen: Negative for ascites and bruising, normoactive bowel sounds, soft, non-tender to palpation throughout Musculoskeletal: Symmetrical and without signs of acute trauma, upper and lower extremities with full ROM, no atrophy, spasticity, or flaccidity Extremities: Radial, dorsalis pedis, and posterior tibial pulses are intact and symmetrical, no edema noted in the BL LE's Skin: Warm, dry, no rashes , lesions, or scars noted Neuro: Alert and oriented to person, place, no focal defects, CN II-XII tested and intact, patient with baseline tremor in the BL upper extremities Psych: No acute distress, calm and cooperative during the exam Results & Data Results & Data ([facility]) Vital Signs (Past 12 Hours) Vital Signs Temp Pulse Resp BP Pulse Ox O2 Del Method 11/10/22 15:50 94 H 22 94 11/10/22 15:40 98 H 15 90 11/10/22 15:32 120/78 11/10/22 15:32 98 H 19 11/10/22 15:31 97 H 20 11/10/22 12:39 36.3 C L 110 H 18 92/67 L 95 Room Air Laboratory Results Abnormal lab results 11/10/22 11/10/22 11/10/22 Range/Units 15:25 15:25 15:25 Hgb 16.5 H (12.0-16.0) g/dl Hct 47.6 H (34.1-44.9) % Immature Gran # (Auto) 0.06 H (0.00-0.02) K/uL Anion Gap 13 H (3-11) Glucose 159 H (70-99(Fasting)) mg/dl Lactate 4.2 H* (0.4-2.0) mmol/L AST 46 H (13-39) U/L Lipase 9 L (11-82) U/L Urine Ketones (Negative) Ur Leukocyte Esterase (Negative) U Epithel Cells (Auto) (0-5) /lpf 11/10/22 Range/Units 16:40 Hgb (12.0-16.0) g/dl Hct (34.1-44.9) % Immature Gran # (Auto) (0.00-0.02) K/uL Anion Gap (3-11) Glucose (70-99(Fasting)) mg/dl Lactate (0.4-2.0) mmol/L AST (13-39) U/L Lipase (11-82) U/L Urine Ketones 1+ H (Negative) Ur Leukocyte Esterase 2+ H (Negative) U Epithel Cells (Auto) >30 H (0-5) /lpf Diagnostic Findings Abdomen/Pelvis CT 11/10/22 16:23 CT abd pelvis IV con only CLINICAL HISTORY: nvd TECHNIQUE: Helical axial images of the abdomen and pelvis were obtained and displayed. Automated dose lowering techniques and/or adjustment according to patient size were utilized for this exam. This exam was performed with intravenous contrast. CT DOSE: 1612.42 mGy.cm COMPARISON: Comparison is made to CT abdomen pelvis 6 FINDINGS: Lower chest: Bibasilar atelectasis versus scarring is seen. Liver: Unremarkable. No focal lesions are seen. Gallbladder and biliary tree: Patient is status post cholecystectomy. Physiologic prominence of the biliary ducts is noted. Pancreas: Unremarkable, no focal lesions. Spleen: Unremarkable. Adrenals: Unremarkable. Kidneys and ureters: Unremarkable. Bladder: The bladder is under distended and mildly thick-walled. Reproductive organs: Unremarkable. Bowel: Unremarkable appearance of the bowel. The appendix is normal. A hiatal hernia is seen. Lymph nodes Retroperitoneal: Unremarkable. Pelvic: Unremarkable. Mesenteric: Unremarkable. Peritoneum: Normal. Vessels: Unremarkable. Abdominal wall: Unremarkable. Bones: Degenerative changes in the visualized spine. IMPRESSION: 1. No acute abnormalities and in particular no evidence of bowel obstruction or pancreatitis. 2. The bladder is under distended and mildly thick walled, correlation with urinalysis is recommended to exclude cystitis. ACT 112: Negative or not required by law. Electronically signed by: Devon España M.D. 11/10/2022 5:24 PM Chest X-Ray 11/10/22 16:23 SINGLE VIEW CHEST CLINICAL HISTORY: Cough FINDINGS: An AP, portable, upright chest radiograph is compared to study dated 08/31/2022. The cardiomediastinal silhouette is unremarkable. The lungs and pleural spaces are clear noting mild bibasilar atelectasis. No pneumothorax is seen. The skeletal structures are osteopenic. The bony thorax is grossly intact. IMPRESSION: No active disease in the chest. ACT 112: Negative or not required by law. Electronically signed by: Amaury Meier M.D. 11/10/2022 4:35 PM ECG Additional Comments: Normal sinus rhythm Low voltage QRS Right bundle branch block T wave abnormality, consider inferior ischemia Abnormal ECG Code Status & VTE Plan Code Status Ful code VTE Prophylaxis Plan VTE Prophylaxis will be ordered: Yes Supervising Physician Co-Signing Physician Notes Patient seen and examined, chart reviewed, case discussed with Cayden Rossi PA-C and I agree with the assessment and plan as above except as otherwise noted Labs and images reviewed 67-year-old female with history of PE on Xarelto, DM2, anxiety, hypothyroidism, schizoaffective disorder who presented for evaluation of nausea/vomiting, freq uent diarrhea of 2 hours which is now liquid. Patient reports that she has had very loose to liquid stools which have gradually been worsening in the last 2 days. Recently completed cefdinir as noted. Denies fever/chills/sweats. Endorses her abdomen feels a little bit sore, on exam no focal tenderness and no rebound. Some mild tenderness on deep lower quadrant palpation. Patient is tachycardic but regular, breathing is unlabored. Given C. difficile risk and recent antibiotic treatment defer antibiotics at this time, follow [facility] for C. difficile testing. she has not had bloody or mucousy diarrhea. If C. difficile positive initiate treatment with Dificid at that time. Lactic acid is elevated patient was initially hypotensive, normotensive with improvement in heart rate following crystalloid resuscitation. Continue IV fluids, trend lactate. No signs of bowel ischemia on CT. Agree with management of chronic issues above PG Care Time/CCT Total # of Minutes Spent Total Time Spent with Patient: Total time spent is greater than 50% in coordination of care (as documented) at patient's floor/unit and/or counseling patient: [place] [address] Initial Inpt Care Lvl 3 Patient Type Established Medical Decision Making High Complexity Diagnoses Sepsis A41.9 Lactic acidemia E87.20 Hypothyroid E03.9 Restless leg G25.81 Tobacco use Z72.0 GERD (gastroesophageal reflux disease) K21.9 History of pulmonary embolism Z86.711 Schizoaffective disorder F25.1 Schizoaffective disorder type: depressive DM II (diabetes mellitus, type II), controlled E11.9 (1) Schizoaffective disorder Schizoaffective disorder type: depressive Qualified Code(s): F25.1 - Schizoaffective disorder, depressive type
[2022-11-10] MEDS ORDERED: GLUCOSE 10 TAB/TUBE PO PRN (18:33)
[2022-11-10] MEDS ORDERED: GLUCAGON FOR INJ 1 MG VIAL SQ PRN (18:33)
[2022-11-10] MEDS ORDERED: CARBOHYDRATES FOR HYPOGLYCEMIA PO PRN (18:33)
[2022-11-10] MEDS ORDERED: DEXTROSE 50% 50 ML SYRINGE IV PRN (18:33)
[2022-11-10] MEDS ORDERED: GLUCOSE 40% GEL 15 GM TUBE PO PRN (18:33)
[2022-11-10] MEDS: NICOTINE 21 MG/24 HR TDSY TD SCH (19:15)
[2022-11-10] MEDS: PANTOprazole 40 MG in SYRINGE 0 ML IV SCH (19:40)
[2022-11-10] MEDS: QUEtiapine FUMARATE 200 MG TAB PO SCH (21:34)
[2022-11-10] MEDS: THIAMINE HCL 100 MG TAB PO SCH (21:35)
[2022-11-10] MEDS: MELATONIN 3 MG TAB PO SCH (21:35)
[2022-11-10] MEDS: rOPINIRole HCL 0.25 MG TABLET PO SCH (21:36)
[2022-11-10] MEDS: DIVALPROEX EXTENDED RELEASE 500 MG TAB PO SCH (21:36)
[2022-11-10] MEDS: BENZTROPINE MESYLATE 0.5 MG TAB PO SCH (21:37)
[2022-11-10] MEDS: busPIRone 15 MG TAB PO SCH (21:37)
[2022-11-10] MEDS: LANTUS PER UNIT CHARGE SQ SCH (21:44)
[2022-11-10] MEDS: INSULIN ASPART PER UNIT SC SCH (21:44)
[2022-11-11] MEDS ORDERED: INFLUENZA VIRUS QUAD VACCINE 0.5 ML SYR IM ONE (01:18)
[2022-11-11 02:15] LABS: Adenovirus F 40/41 PCR Not Detected (NotDetected); Astrovirus PCR Not Detected (NotDetected); Campylobacter PCR Not Detected (NotDetected); Cryptosporidium PCR Not Detected (NotDetected); Cyclospora cayetanensis PCR Not Detected (NotDetected); Entamoeba histolytica PCR Not Detected (NotDetected); Enteroaggregative E.coli(EAEC) Not Detected (NotDetected); Enteropathogenic E.coli (EPEC) Not Detected (NotDetected); Enterotoxigenic E.coli (ETEC) Not Detected (NotDetected); Giardia lamblia PCR Not Detected (NotDetected); Norovirus GI/GII PCR Not Detected (NotDetected); Plesiomonas shigelloides PCR Not Detected (NotDetected); Rotavirus A PCR Not Detected (NotDetected); Salmonella PCR Not Detected (NotDetected); Sapovirus PCR Not Detected (NotDetected); Shiga-like Toxin E.coli (STEC) Not Detected (NotDetected); Shigella/Enteroinvasive E.coli Not Detected (NotDetected); Vibrio cholerae PCR Not Detected (NotDetected); Vibrio species PCR Not Detected (NotDetected); Yersinia enterocolitica PCR Not Detected (NotDetected)
[2022-11-11] MEDS: LACTATED RINGER'S 1,000 ML IV SCH (06:11)
[2022-11-11] MEDS: LEVOTHYROXINE SODIUM 50 MCG TABLET PO SCH (06:11)
[2022-11-11 06:21] LABS: Hematocrit (blood only) 43.2 % (34.1-44.9); Hemoglobin 14.9 g/dl (12.0-16.0); Mean Corpuscular Hemoglobin 32.7 pg (25.0-34.0); Mean Corpuscular Hgb Conc 34.5 g/dL (32.0-36.0); Mean Corpuscular Volume 94.7 fL (80.0-100.0); Mean Platelet Volume 9.5 fL (9.4-12.3); Platelet Count 141 K/uL (130-400); RDW Standard Deviation 45.1 fL (36.4-46.3); Red Blood Count 4.56 M/uL (3.93-5.22); White Blood Count 7.32 K/ul (4.8-10.8)
[2022-11-11 06:48] LABS: Albumin Globulin Ratio 1.2 (0.9-2); Albumin Level 3.2 gm/dl (3.4-5.0); BUN Creatinine Ratio 12.5 (10-20); Bilirubin,Total 0.6 mg/dl (0.2-1.0); Calcium 8.3 mg/dl (8.5-10.1); Creatinine Clr Calc Pharmacy 85.5 ml/min; Est GFR (African American) 101.9 ml/min; Est GFR (Non-African American) 87.9 ml/min; Globulin 2.7 gm/dl (2.5-4.0); Magnesium 1.5 mg/dl (1.7-2.4); Potassium 3.9 mmol/L (3.5-5.1); Total Protein 5.9 gm/dl (6.0-8.3)
[2022-11-11] MEDS: PANCREAZE (LIPASE 10,500U) CAP PO SCH ×3 (08:47→18:35)
[2022-11-11] MEDS: busPIRone 15 MG TAB PO SCH ×3 (08:48→20:23)
[2022-11-11] MEDS: ESCITALOPRAM OXALATE 20 MG TAB PO SCH (08:48)
[2022-11-11] MEDS: BENZTROPINE MESYLATE 0.5 MG TAB PO SCH ×2 (08:48→20:22)
[2022-11-11] MEDS: FAMOTIDINE 20 MG TAB PO SCH (08:49)
[2022-11-11] MEDS: FOLIC ACID 1 MG TAB PO SCH (08:49)
[2022-11-11] MEDS: RIVAROXABAN 20 MG TAB PO SCH (08:49)
[2022-11-11] MEDS: THIAMINE HCL 100 MG TAB PO SCH ×2 (08:50→20:25)
[2022-11-11] MEDS: NICOTINE 21 MG/24 HR TDSY TD SCH (09:15)
[2022-11-11] MEDS: LANTUS PER UNIT CHARGE SQ SCH ×2 (09:16→20:27)
[2022-11-11] MEDS: INSULIN ASPART PER UNIT SC SCH ×4 (09:16→20:26)
[2022-11-11] MEDS: MAGNESIUM SULFATE / D5W 1 GM/100 ML BAG IV SCH ×3 (09:43→11:43)
[2022-11-11] MEDS: PANTOprazole 40 MG in SYRINGE 0 ML IV SCH (10:13)
--- NOTE | 2022-11-11 19:05 | Hospitalist Progress Note ---
Date of Service November 11, 2022 Assessment & Plan (1) Sepsis: Plan: Mrs. Gil is a 67 yo F who was admitted for nausea/vomiting and diarrhea. - Septic on arrival - No longer meeting sirs criteria, as she is clinically improving - Lactate was elevated at 4.2 on admission --> has since normalized - Stool PCR was negative, as was Cdiff testing -CT of the abdomen/pelvis was negative for obstruction, mesenteric abnormalities, and pancreatitis. There was some findings consistent with possible cystitis but the patient is asymptomatic at this time -Chest xray was negative for acute findings (2) Lactic acidemia: Plan: -Noted to be 4.2 on admission, normalized with IV fluids - AG initially elevated, has since closed (3) Prolonged Q-T interval on ECG: Plan: - QTc at 502ms on EKG - Mag is low, replacement ordered - Ca corrects to 8.9 (low albumin) - She is on Quetipine - repeat EKG in am (4) Hypothyroid: Plan: -Continue levothyroxine (5) Restless leg: Plan: -Continue requip (6) Tobacco use: Plan: -Will order nicotine patches and gum (7) GERD (gastroesophageal reflux disease): Plan: -Continue pantoprazole but will switch to IV until she can tolerate PO intake (8) History of pulmonary embolism: Plan: -Continue Xarelto (9) Schizoaffective disorder: Plan: -Continue Buspirone, Depakote, lexapro, and seroquel (10) DM II (diabetes mellitus, type II), controlled: Plan: -Hold metformin -Will start Lantus at 5 units BID since her PO intake is poor -BSG goal of 110-140 -Monitor BSG q6h while oral intake is poor -Correction factor of 40 and carb ratio 14 Dvt ppx: On Xarelto Diet: DMII Dispo: Med/tele. PT/OT ordered Admission and Anticipated Discharge Date Admission Date: November 10, 2022 Subjective Feeling improved from admission, but worn out. Review of Systems Constitutional: as per Subjective / HPI Physical Exam Constitutional: WD/WN, vitals as above Eyes: + anicteric sclerae ENMT: external ear and nose normal, oropharynx normal Neck: trachea midline, no thyromegaly Respiratory: normal respiratory effort, lungs clear to auscultation no cough Cardiovascular: RRR, no murmur, no edema Heart Sounds: normal S1 and normal S2 Gastrointestinal (Abdomen): normal bowel sounds, soft, nontender, no hepatosplenomegaly Musculoskeletal: Head/Neck/Chest: normocephalic and head atraumatic Skin: no rashes, warm and dry Neurologic: moves all extremities Psychiatric: A+Ox3, euthymic affect Results & Data Results & Data ([facility]) Vital Signs (Past 12 Hours) Vital Signs Temp Pulse Pulse Pulse Resp BP BP 11/11/22 18:02 68 11/11/22 17:58 11/11/22 17:58 36.8 C 73 20 130/59 L 11/11/22 17:06 69 18 110/61 11/11/22 14:00 68 22 92/57 L 11/11/22 13:00 74 111/51 L 11/11/22 12:00 75 16 87/64 L 11/11/22 08:00 84 19 105/62 11/11/22 09:00 81 14 107/73 11/11/22 11:00 80 14 108/79 11/11/22 10:00 78 15 90/66 L Pulse Ox O2 Del Method O2 Flow Rate 11/11/22 18:02 11/11/22 17:58 Nasal Cannula 2 11/11/22 17:58 92 Nasal Cannula 2 11/11/22 17:06 98 Room Air 11/11/22 14:00 95 Nasal Cannula 4 11/11/22 13:00 95 Nasal Cannula 4 11/11/22 12:00 95 Nasal Cannula 4 11/11/22 08:00 94 Nasal Cannula 2 11/11/22 09:00 96 Nasal Cannula 2 11/11/22 11:00 95 Nasal Cannula 2 11/11/22 10:00 96 Nasal Cannula 2 PG Care Time/CCT Total # of Minutes Spent Total Time Spent with Patient: Total time spent is greater than 50% in coordination of care (as documented) at patient's floor/unit and/or counseling patient: Coding Level of Care Code 17513 Subseq Hosp Care Lvl 2 Diagnoses Sepsis A41.9 Lactic acidemia E87.20 Prolonged Q-T interval on ECG R94.31 Hypothyroid E03.9 Restless leg G25.81 Tobacco use Z72.0 GERD (gastroesophageal reflux disease) K21.9 History of pulmonary embolism Z86.711 Schizoaffective disorder F25.1 Schizoaffective disorder type: depressive DM II (diabetes mellitus, type II), controlled E11.9 (1) Schizoaffective disorder Schizoaffective disorder type: depressive Qualified Code(s): F25.1 - Schizoaffective disorder, depressive type
[2022-11-11] MEDS: DIVALPROEX EXTENDED RELEASE 500 MG TAB PO SCH (20:23)
[2022-11-11] MEDS: QUEtiapine FUMARATE 200 MG TAB PO SCH (20:24)
[2022-11-11] MEDS: MELATONIN 3 MG TAB PO SCH (20:24)
[2022-11-11] MEDS: rOPINIRole HCL 0.25 MG TABLET PO SCH (20:25)
[2022-11-11] MEDS: CHOLESTYRAMINE LIGHT 4 GM PKT PO SCH (21:00)
[2022-11-12] MEDS: ACETAMINOPHEN 325 MG TAB PO PRN ×2 (04:18→20:20)
[2022-11-12] MEDS: LEVOTHYROXINE SODIUM 50 MCG TABLET PO SCH (05:31)
[2022-11-12] MEDS: THIAMINE HCL 100 MG TAB PO SCH ×2 (08:51→20:17)
[2022-11-12] MEDS: FOLIC ACID 1 MG TAB PO SCH (08:51)
[2022-11-12] MEDS: FERROUS SULFATE 325 MG TAB PO SCH (08:51)
[2022-11-12] MEDS: RIVAROXABAN 20 MG TAB PO SCH (08:51)
[2022-11-12] MEDS: ESCITALOPRAM OXALATE 20 MG TAB PO SCH (08:51)
[2022-11-12] MEDS: BENZTROPINE MESYLATE 0.5 MG TAB PO SCH ×2 (08:51→20:14)
[2022-11-12] MEDS: busPIRone 15 MG TAB PO SCH ×3 (08:51→20:14)
[2022-11-12] MEDS: FAMOTIDINE 20 MG TAB PO SCH (08:51)
[2022-11-12] MEDS: PANCREAZE (LIPASE 10,500U) CAP PO SCH ×3 (08:51→17:58)
[2022-11-12] MEDS: INSULIN ASPART PER UNIT SC SCH ×5 (08:52→20:15)
[2022-11-12] MEDS: NICOTINE 21 MG/24 HR TDSY TD SCH (08:52)
[2022-11-12] MEDS: LANTUS PER UNIT CHARGE SQ SCH ×2 (08:57→20:16)
[2022-11-12 09:19] LABS: Hematocrit (blood only) 35.2 % (34.1-44.9); Hemoglobin 12.3 g/dl (12.0-16.0); Mean Corpuscular Hemoglobin 32.5 pg (25.0-34.0); Mean Corpuscular Hgb Conc 34.9 g/dL (32.0-36.0); Mean Corpuscular Volume 92.9 fL (80.0-100.0); Platelet Count 145 K/uL (130-400); RDW Coefficient of Variation 12.9 % (11.5-14.5); RDW Standard Deviation 43.9 fL (36.4-46.3); Red Blood Count 3.79 M/uL (3.93-5.22); White Blood Count 6.26 K/ul (4.8-10.8)
[2022-11-12 09:42] LABS: Albumin Globulin Ratio 1.1 (0.9-2); Albumin Level 2.7 gm/dl (3.4-5.0); BUN Creatinine Ratio 4.4 (10-20); Bilirubin,Total 0.4 mg/dl (0.2-1.0); Calcium 8.7 mg/dl (8.5-10.1); Creatinine Clr Calc Pharmacy 91.3 ml/min; Est GFR (African American) 106.4 ml/min; Est GFR (Non-African American) 91.8 ml/min; Globulin 2.5 gm/dl (2.5-4.0); Magnesium 1.8 mg/dl (1.7-2.4); Potassium 3.9 mmol/L (3.5-5.1); Total Protein 5.2 gm/dl (6.0-8.3)
[2022-11-12] MEDS: CHOLESTYRAMINE LIGHT 4 GM PKT PO SCH ×2 (10:45→21:15)
[2022-11-12] MEDS: PANTOprazole 40 MG in SYRINGE 0 ML IV SCH (12:09)
--- NOTE | 2022-11-12 17:34 | Electrocardiogram Report ---
Test Reason : Blood Pressure : / mmHG Vent. Rate : 067 BPM Atrial Rate : 067 BPM P-R Int : 168 ms QRS Dur : 092 ms QT Int : 474 ms P-R-T Axes : 038 118 -12 degrees QTc Int : 500 ms Normal sinus rhythm Right axis deviation Incomplete right bundle branch block Nonspecific T wave abnormality Prolonged QT Abnormal ECG When compared with ECG of 10-NOV-2022 15:21, Incomplete right bundle branch block has replaced Right bundle branch block Confirmed by David Rodriguez ([id number]) on 11/12/2022 5:34:43 PM Referred By: REFERRED SELF Confirmed By:Alex Rodriguez
--- NOTE | 2022-11-12 17:55 | Hospitalist Progress Note ---
Date of Service November 12, 2022 Assessment & Plan (1) Sepsis: Plan: Mrs. Gil is a 67 yo F who was admitted for nausea/vomiting and diarrhea. - Septic on arrival - No longer meeting sirs criteria, as she is clinically improving - Lactate was elevated at 4.2 on admission --> has since normalized - Stool PCR was negative, as was Cdiff testing - CT of the abdomen/pelvis was negative for obstruction, mesenteric abnormalities, and pancreatitis. There was some findings consistent with possible cystitis but the patient is asymptomatic at this time - Chest xray was negative for acute findings (2) Lactic acidemia: Plan: -Noted to be 4.2 on admission, normalized with IV fluids - AG initially elevated, has since closed (3) Prolonged Q-T interval on ECG: Plan: - QTc at 508ms on EKG, down to 500 - Mag is low, replacement ordered, has since normalized - Ca corrects to 8.9 (low albumin) - She is on Quetipine, which can be prolonging (4) Hypothyroid: Plan: -Continue levothyroxine (5) Restless leg: Plan: -Continue requip (6) Tobacco use: Plan: -Will order nicotine patches and gum (7) GERD (gastroesophageal reflux disease): Plan: -Continue pantoprazole but will switch to IV until she can tolerate PO intake (8) History of pulmonary embolism: Plan: -Continue Xarelto (9) Schizoaffective disorder: Plan: -Continue Buspirone, Depakote, lexapro, and seroquel (10) DM II (diabetes mellitus, type II), controlled: Plan: -Hold metformin -Will start Lantus at 5 units BID since her PO intake is poor -BSG goal of 110-140 -Monitor BSG q6h while oral intake is poor -Correction factor of 40 and carb ratio 14 Dvt ppx: On Xarelto Diet: DMII Dispo: Med/surg PT/OT ordered. CM following - although patient is medically ready to leave hospital, she has no transportation to get home. usually takes [facility] [employer] - unfortunately, it is booked until 11/17/21. Unless she qualifes for rehab/SNF per PT/OT evals, plan to go home at noon on 11/17 with [facility]. Admission and Anticipated Discharge Date Admission Date: November 10, 2022 Subjective Feeling improved from admission, nausea/vomiting has resolved. Ready to try solid food. Review of Systems Review of Systems: All systems reviewed & are unremarkable except as noted in HPI & below Physical Exam Constitutional: WD/WN, vitals as above Eyes: + anicteric sclerae ENMT: external ear and nose normal, oropharynx normal Neck: trachea midline, no thyromegaly Respiratory: normal respiratory effort, lungs clear to auscultation no cough Cardiovascular: RRR, no murmur, no edema Heart Sounds: normal S1 and normal S2 Gastrointestinal (Abdomen): normal bowel sounds, soft, nontender, no hepatosplenomegaly Musculoskeletal: Head/Neck/Chest: normocephalic and head atraumatic Skin: no rashes, warm and dry Neurologic: moves all extremities Psychiatric: A+Ox3, euthymic affect Results & Data Results & Data ([facility]) Vital Signs (Past 12 Hours) Vital Signs Temp Pulse Pulse Resp BP Pulse Ox O2 Del Method 11/12/22 16:55 36.6 C 60 18 96/62 L 94 Room Air 11/12/22 15:40 36.7 C 56 L 16 82/56 L 93 Room Air 11/12/22 08:00 Nasal Cannula 11/12/22 12:23 36.7 C 62 18 100/64 96 Nasal Cannula 11/12/22 11:27 36.0 C L 61 16 81/56 L 93 Room Air 11/12/22 08:03 62 11/12/22 07:51 36.8 C 70 16 108/74 95 Room Air O2 Flow Rate 11/12/22 16:55 11/12/22 15:40 11/12/22 08:00 2 11/12/22 12:23 2 11/12/22 11:27 11/12/22 08:03 11/12/22 07:51 PG Care Time/CCT Total # of Minutes Spent Total Time Spent with Patient: Total time spent is greater than 50% in coordination of care (as documented) at patient's floor/unit and/or counseling patient: Coding Level of Care Code 14600 Subseq Hosp Care Lvl 2 Diagnoses Sepsis A41.9 Lactic acidemia E87.20 Prolonged Q-T interval on ECG R94.31 Hypothyroid E03.9 Restless leg G25.81 Tobacco use Z72.0 GERD (gastroesophageal reflux disease) K21.9 History of pulmonary embolism Z86.711 Schizoaffective disorder F25.1 Schizoaffective disorder type: depressive DM II (diabetes mellitus, type II), controlled E11.9 (1) Schizoaffective disorder Schizoaffective disorder type: depressive Qualified Code(s): F25.1 - Schizoaffective disorder, depressive type
[2022-11-12] MEDS: DIVALPROEX EXTENDED RELEASE 500 MG TAB PO SCH (20:15)
[2022-11-12] MEDS: QUEtiapine FUMARATE 200 MG TAB PO SCH (20:16)
[2022-11-12] MEDS: rOPINIRole HCL 0.25 MG TABLET PO SCH (20:16)
[2022-11-12] MEDS: MELATONIN 3 MG TAB PO SCH (20:20)
[2022-11-12] MEDS: hydrOXYzine HCl 25 MG TAB PO PRN (20:22)
[2022-11-13] MEDS ORDERED: NYSTATIN POWDER 15GM BTL EXT PRN (00:24)
[2022-11-13] MEDS: LEVOTHYROXINE SODIUM 50 MCG TABLET PO SCH (05:52)
[2022-11-13 08:26] LABS: Hematocrit (blood only) 36.7 % (34.1-44.9); Hemoglobin 12.9 g/dl (12.0-16.0); Mean Corpuscular Hemoglobin 32.2 pg (25.0-34.0); Mean Corpuscular Hgb Conc 35.1 g/dL (32.0-36.0); Mean Corpuscular Volume 91.5 fL (80.0-100.0); Platelet Count 146 K/uL (130-400); RDW Coefficient of Variation 12.8 % (11.5-14.5); RDW Standard Deviation 42.6 fL (36.4-46.3); Red Blood Count 4.01 M/uL (3.93-5.22); White Blood Count 5.41 K/ul (4.8-10.8)
[2022-11-13] MEDS: INSULIN ASPART PER UNIT SC SCH ×4 (08:35→20:48)
[2022-11-13] MEDS: NICOTINE 21 MG/24 HR TDSY TD SCH (08:36)
[2022-11-13] MEDS: CHOLESTYRAMINE LIGHT 4 GM PKT PO SCH ×2 (08:36→22:26)
[2022-11-13] MEDS: PANCREAZE (LIPASE 10,500U) CAP PO SCH ×3 (08:36→17:23)
[2022-11-13] MEDS: ESCITALOPRAM OXALATE 20 MG TAB PO SCH (08:37)
[2022-11-13] MEDS: BENZTROPINE MESYLATE 0.5 MG TAB PO SCH ×2 (08:37→20:55)
[2022-11-13] MEDS: FOLIC ACID 1 MG TAB PO SCH (08:37)
[2022-11-13] MEDS: THIAMINE HCL 100 MG TAB PO SCH ×2 (08:37→20:57)
[2022-11-13] MEDS: busPIRone 15 MG TAB PO SCH ×3 (08:37→20:55)
[2022-11-13] MEDS: FAMOTIDINE 20 MG TAB PO SCH (08:37)
[2022-11-13] MEDS: RIVAROXABAN 20 MG TAB PO SCH (08:37)
[2022-11-13] MEDS: LANTUS PER UNIT CHARGE SQ SCH ×2 (08:39→20:47)
[2022-11-13 08:57] LABS: Albumin Globulin Ratio 1.2 (0.9-2); Bilirubin,Total 0.3 mg/dl (0.2-1.0); Calcium 8.6 mg/dl (8.5-10.1); Creatinine Clr Calc Pharmacy 87.3 ml/min; Est GFR (African American) 103.6 ml/min; Est GFR (Non-African American) 89.4 ml/min; Globulin 2.5 gm/dl (2.5-4.0); Magnesium 1.7 mg/dl (1.7-2.4); Potassium 4.3 mmol/L (3.5-5.1); Total Protein 5.5 gm/dl (6.0-8.3)
[2022-11-13] MEDS: PANTOprazole 40 MG in SYRINGE 0 ML IV SCH (11:47)
--- NOTE | 2022-11-13 15:16 | Hospitalist Progress Note ---
Date of Service November 13, 2022 Assessment & Plan (1) Sepsis: Plan: Mrs. Gil is a 67 yo F who was admitted for nausea/vomiting and diarrhea. - Septic on arrival - No longer meeting sirs criteria, as she is clinically improving - Lactate was elevated to 4.2 on admission --> has since normalized - Stool PCR was negative, as was Cdiff testing - CT of the abdomen/pelvis was negative for obstruction, mesenteric abnormalities, and pancreatitis. There was some findings consistent with possible cystitis but the patient is asymptomatic at this time for urinary symptoms - Chest xray was negative for acute findings - suspect symptoms were due to a viral gastroenteritis that has now resolved (2) Lactic acidemia: Plan: -Noted to be 4.2 on admission, normalized with IV fluids - AG initially elevated, has since closed (3) Prolonged Q-T interval on ECG: Plan: - QTc at 508ms on EKG, down to 500 - Mag is low, replacement ordered, has since normalized - Ca corrects to 8.9 (low albumin) - She is on Quetipine, which can be prolonging (4) Hypothyroid: Plan: -Continue levothyroxine (5) Restless leg: Plan: -Continue requip (6) Tobacco use: Plan: -Will order nicotine patches and gum (7) GERD (gastroesophageal reflux disease): Plan: -Continue pantoprazole but will switch to IV until she can tolerate PO intake (8) History of pulmonary embolism: Plan: -Continue Xarelto (9) Schizoaffective disorder: Plan: -Continue Buspirone, Depakote, lexapro, and seroquel (10) DM II (diabetes mellitus, type II), controlled: Plan: -Hold metformin -Will start Lantus at 5 units BID since her PO intake is poor. Increase as PO intake improves -BSG goal of 110-140 -Monitor BSG q6h while oral intake is poor -Correction factor of 40 and carb ratio 14 Dvt ppx: On Xarelto Diet: DMII Dispo: Med/surg PT/OT ordered, felt as though she is at her baseline, can consider possible home health with PT services. CM following - although patient is medically ready to leave hospital, she has no transportation to get home. Usually takes [facility] - unfortunately, it is booked until 1/3/22. Admission and Anticipated Discharge Date Admission Date: November 10, 2022 Subjective Feeling improved from admission, nausea/vomiting has resolved. Tolerating solid food well without recurrent symtpoms. Review of Systems Review of Systems: All systems reviewed & are unremarkable except as noted in HPI & below Physical Exam Constitutional: WD/WN, vitals as above + obese Eyes: + anicteric sclerae ENMT: external ear and nose normal, oropharynx normal Neck: trachea midline, no thyromegaly Respiratory: normal respiratory effort, lungs clear to auscultation no cough Cardiovascular: RRR, no murmur, no edema Heart Sounds: normal S1 and normal S2 Gastrointestinal (Abdomen): normal bowel sounds, soft, nontender, no hepatosplenomegaly Musculoskeletal: Head/Neck/Chest: normocephalic and head atraumatic Skin: no rashes, warm and dry Neurologic: moves all extremities Psychiatric: A+Ox3, euthymic affect Results & Data Results & Data ([facility]) Vital Signs (Past 12 Hours) Vital Signs Temp Pulse Resp BP Pulse Ox O2 Del Method O2 Flow Rate 11/13/22 14:38 Room Air 11/13/22 13:32 95 11/13/22 12:11 36.4 C L 54 L 19 106/72 92 Room Air 11/13/22 08:14 36.7 C 68 19 136/71 91 Nasal Cannula 2 11/13/22 03:42 37 C 60 18 112/60 94 Room Air PG Care Time/CCT Total # of Minutes Spent Total Time Spent with Patient: Total time spent is greater than 50% in coordination of care (as documented) at patient's floor/unit and/or counseling patient: [place] [address] Subseq Hosp Care Lvl 1 Patient Type Established Diagnoses Sepsis A41.9 Lactic acidemia E87.20 Prolonged Q-T interval on ECG R94.31 Hypothyroid E03.9 Restless leg G25.81 Tobacco use Z72.0 GERD (gastroesophageal reflux disease) K21.9 History of pulmonary embolism Z86.711 Schizoaffective disorder F25.1 Schizoaffective disorder type: depressive DM II (diabetes mellitus, type II), controlled E11.9 (1) Schizoaffective disorder Schizoaffective disorder type: depressive Qualified Code(s): F25.1 - Schizoaffective disorder, depressive type
[2022-11-13] MEDS: rOPINIRole HCL 0.25 MG TABLET PO SCH (20:56)
[2022-11-13] MEDS: DIVALPROEX EXTENDED RELEASE 500 MG TAB PO SCH (20:56)
[2022-11-13] MEDS: QUEtiapine FUMARATE 200 MG TAB PO SCH (20:56)
[2022-11-13] MEDS: MELATONIN 3 MG TAB PO SCH (20:58)
[2022-11-14] MEDS: ACETAMINOPHEN 325 MG TAB PO PRN ×3 (04:43→20:58)
[2022-11-14] MEDS: LEVOTHYROXINE SODIUM 50 MCG TABLET PO SCH (06:18)
[2022-11-14 07:01] LABS: Hematocrit (blood only) 36.7 % (34.1-44.9); Mean Corpuscular Hemoglobin 32.8 pg (25.0-34.0); Mean Corpuscular Hgb Conc 35.4 g/dL (32.0-36.0); Mean Corpuscular Volume 92.7 fL (80.0-100.0); Mean Platelet Volume 9.9 fL (9.4-12.3); Platelet Count 152 K/uL (130-400); RDW Coefficient of Variation 12.8 % (11.5-14.5); RDW Standard Deviation 43.1 fL (36.4-46.3); Red Blood Count 3.96 M/uL (3.93-5.22); White Blood Count 6.11 K/ul (4.8-10.8)
[2022-11-14] MEDS: RIVAROXABAN 20 MG TAB PO SCH (07:48)
[2022-11-14] MEDS: FOLIC ACID 1 MG TAB PO SCH (07:48)
[2022-11-14] MEDS: THIAMINE HCL 100 MG TAB PO SCH ×2 (07:49→20:09)
[2022-11-14] MEDS: FERROUS SULFATE 325 MG TAB PO SCH (07:49)
[2022-11-14] MEDS: busPIRone 15 MG TAB PO SCH ×3 (07:49→20:09)
[2022-11-14] MEDS: FAMOTIDINE 20 MG TAB PO SCH (07:49)
[2022-11-14] MEDS: BENZTROPINE MESYLATE 0.5 MG TAB PO SCH ×2 (07:50→20:09)
[2022-11-14] MEDS: ESCITALOPRAM OXALATE 20 MG TAB PO SCH (07:50)
[2022-11-14] MEDS: PANCREAZE (LIPASE 10,500U) CAP PO SCH ×3 (07:50→18:25)
[2022-11-14 08:07] LABS: Basophils # (auto) 0.05 K/uL (0-0.2); Basophils % (auto) 0.8 %; Eosinophils # (auto) 0.26 K/uL (0-0.50); Eosinophils % (auto) 4.3 %; Immature Granulocytes # (auto) 0.07 K/uL (0.00-0.02); Immature Granulocytes % (auto) 1.1 %; Lymphocytes # (auto) 3.08 K/uL (1.2-3.4); Lymphocytes % (auto) 50.4 %; Monocytes # (auto) 0.47 K/uL (0.24-0.82); Monocytes % (auto) 7.7 %; Neutrophils # (auto) 2.18 K/uL (1.4-6.5); Neutrophils % (auto) 35.7 %
[2022-11-14] MEDS: NICOTINE 21 MG/24 HR TDSY TD SCH (08:23)
[2022-11-14] MEDS: INSULIN ASPART PER UNIT SC SCH ×4 (09:02→20:59)
[2022-11-14] MEDS: LANTUS PER UNIT CHARGE SQ SCH ×2 (09:02→20:58)
[2022-11-14] MEDS: CHOLESTYRAMINE LIGHT 4 GM PKT PO SCH ×2 (12:19→23:07)
--- NOTE | 2022-11-14 14:23 | Hospitalist Progress Note ---
Date of Service November 14, 2022 Assessment & Plan (1) Gastroenteritis: Plan: Presented with weakness, N/V/diarrhea. Recently admitted earlier this month for UTI and viral enteritis. Tachycardic with elevated lactate on admission, with rapid improvement in lactate with IV fluids. Did not meet other SIRS criteria. CTAP without evidence of acute process. Stool PCR panel and C. diff negative. PT/OT evaluated given felt weak on admit, recommends home PT. (2) Lactic acidemia: Plan: Lactate 4.2 on admission, resolved with IVF as above. (3) Hypothyroid: Plan: Continue levothyroxine. (4) Restless leg: Plan: Continue Requip. (5) Tobacco use: Plan: Nicotine patch daily while admitted. (6) GERD (gastroesophageal reflux disease): Plan: Continue daily PPI (transitioned to PO today). (7) History of pulmonary embolism: Plan: Continue Xarelto. (8) Schizoaffective disorder: Plan: Continue buspirone, Depakote, Lexapro, and Seroquel. On QT prolonging agents, monitor electrolytes and QTc while admitted intermittently. (9) DM II (diabetes mellitus, type II), controlled: Plan: Hold metformin in favor of basal/bolus insulin. DM2 diet. Plan CM following - although patient is medically ready to leave hospital, she has no transportation to get home. Usually takes [facility] - unfortunately, it is booked until 11/17/21. Transport arranged for that day. Admission and Anticipated Discharge Date Admission Date: November 10, 2022 Subjective No acute events overnight.No complaints of SOB, chest pain, nausea, vomiting, diarrhea, abdominal pain. No blood in stools. Review of Systems Review of Systems: All systems reviewed & are unremarkable except as noted in Subjective Physical Exam Constitutional: WD/WN, vitals as above Respiratory: normal respiratory effort, lungs clear to auscultation Cardiovascular: RRR, no murmur, no edema Gastrointestinal (Abdomen): normal bowel sounds, abdomen soft, nontender, no rebound or guarding Musculoskeletal: no upper or lower extremity motor strength deficits Skin: no rashes, warm and dry Psychiatric: Orientation: alert and oriented x 3 Affect: euthymic affect Results & Data Results & Data ([facility]) Vital Signs (Past 12 Hours) Vital Signs Temp Pulse Resp BP Pulse Ox O2 Del Method 11/14/22 07:21 36.9 C 60 18 120/78 94 Room Air PG Care Time/CCT Total # of Minutes Spent Total Time Spent with Patient: Total time spent is greater than 50% in coordination of care (as documented) at patient's floor/unit and/or counseling patient: Coding Level of Care Code 96745 Subseq Hosp Care Lvl 2 Diagnoses Gastroenteritis K52.9 Lactic acidemia E87.20 Hypothyroid E03.9 Restless leg G25.81 Tobacco use Z72.0 GERD (gastroesophageal reflux disease) K21.9 History of pulmonary embolism Z86.711 Schizoaffective disorder F25.1 Schizoaffective disorder type: depressive DM II (diabetes mellitus, type II), controlled E11.9 (1) Schizoaffective disorder Schizoaffective disorder type: depressive Qualified Code(s): F25.1 - Schizoaffective disorder, depressive type
[2022-11-14] MEDS: PANTOprazole 40 MG in SYRINGE 0 ML IV SCH (14:36)
[2022-11-14] MEDS: rOPINIRole HCL 0.25 MG TABLET PO SCH (20:09)
[2022-11-14] MEDS: DIVALPROEX EXTENDED RELEASE 500 MG TAB PO SCH (20:09)
[2022-11-14] MEDS: QUEtiapine FUMARATE 200 MG TAB PO SCH (20:09)
[2022-11-14] MEDS: MELATONIN 3 MG TAB PO SCH (20:12)
[2022-11-14] MEDS: hydrOXYzine HCl 25 MG TAB PO PRN (20:57)
[2022-11-15] MEDS: LEVOTHYROXINE SODIUM 50 MCG TABLET PO SCH (05:37)
[2022-11-15] MEDS: PANTOprazole 40 MG TAB PO SCH (10:16)
[2022-11-15] MEDS: BENZTROPINE MESYLATE 0.5 MG TAB PO SCH ×2 (10:17→21:18)
[2022-11-15] MEDS: THIAMINE HCL 100 MG TAB PO SCH ×2 (10:17→21:19)
[2022-11-15] MEDS: busPIRone 15 MG TAB PO SCH ×3 (10:17→21:19)
[2022-11-15] MEDS: FOLIC ACID 1 MG TAB PO SCH (10:18)
[2022-11-15] MEDS: PANCREAZE (LIPASE 10,500U) CAP PO SCH ×3 (10:18→18:30)
[2022-11-15] MEDS: ESCITALOPRAM OXALATE 20 MG TAB PO SCH (10:18)
[2022-11-15] MEDS: NICOTINE 21 MG/24 HR TDSY TD SCH (10:19)
[2022-11-15] MEDS: RIVAROXABAN 20 MG TAB PO SCH (10:20)
[2022-11-15] MEDS: LANTUS PER UNIT CHARGE SQ SCH ×2 (10:29→21:17)
[2022-11-15] MEDS: INSULIN ASPART PER UNIT SC SCH ×4 (10:30→21:17)
[2022-11-15] MEDS: FAMOTIDINE 20 MG TAB PO SCH (11:14)
[2022-11-15] MEDS: CHOLESTYRAMINE LIGHT 4 GM PKT PO SCH ×2 (11:14→21:54)
--- NOTE | 2022-11-15 12:52 | Hospitalist Progress Note ---
Date of Service November 15, 2022 Assessment & Plan (1) Gastroenteritis: Plan: Presented with weakness, N/V/diarrhea. Recently admitted earlier this month for UTI and viral enteritis. Tachycardic with elevated lactate on admission, with rapid improvement in lactate with IV fluids. Did not meet other SIRS criteria. CTAP without evidence of acute process. Stool PCR panel and C. diff negative. PT/OT evaluated given felt weak on admit, recommends home PT. Resolved problem. (2) Lactic acidemia: Plan: Lactate 4.2 on admission, resolved with IVF as above. (3) Neck pain: Plan: New problem while in hospital. No bony tenderness, ROM deficits. Attributes it to hospital bed. Tylenol as needed for pain, encourage OOB to chair. (4) Hypothyroid: Plan: Continue levothyroxine. (5) Restless leg: Plan: Continue Requip. (6) Tobacco use: Plan: Nicotine patch daily while admitted. (7) GERD (gastroesophageal reflux disease): Plan: Continue daily PPI (transitioned to PO today). (8) History of pulmonary embolism: Plan: Continue Xarelto. (9) Schizoaffective disorder: Plan: Continue buspirone, Depakote, Lexapro, and Seroquel. On QT prolonging agents, monitor electrolytes and QTc while admitted intermittently. (10) DM II (diabetes mellitus, type II), controlled: Plan: Holding metformin in favor of basal/bolus insulin. DM2 diet. Plan CM following - although patient is medically ready to leave hospital, she has no transportation to get home. Usually takes [facility] - unfortunately, it is booked until 11/17/21. Transport arranged for that day. Admission and Anticipated Discharge Date Admission Date: November 10, 2022 Subjective No acute events overnight. No complaints of SOB, chest pain, nausea, vomiting, diarrhea, abdominal pain. No blood in stools. Some mild neck pain today from hospital bed. Review of Systems Review of Systems: All systems reviewed & are unremarkable except as noted in Subjective Physical Exam Constitutional: WD/WN, vitals as above Respiratory: normal respiratory effort, lungs clear to auscultation Cardiovascular: RRR, no murmur, no edema Skin: no rashes, warm and dry Psychiatric: Orientation: alert and oriented x 3 Affect: euthymic affect Results & Data Results & Data ([facility]) Vital Signs (Past 12 Hours) Vital Signs Temp Pulse Resp BP Pulse Ox O2 Del Method 11/15/22 07:34 36.7 C 86 16 100/67 95 Room Air PG Care Time/CCT Total # of Minutes Spent Total Time Spent with Patient: Total time spent is greater than 50% in coordination of care (as documented) at patient's floor/unit and/or counseling patient: Coding Level of Care Code 47664 Subseq Hosp Care Lvl 1 Diagnoses Gastroenteritis K52.9 Lactic acidemia E87.20 Neck pain M54.2 Hypothyroid E03.9 Restless leg G25.81 Tobacco use Z72.0 GERD (gastroesophageal reflux disease) K21.9 History of pulmonary embolism Z86.711 Schizoaffective disorder F25.1 Schizoaffective disorder type: depressive DM II (diabetes mellitus, type II), controlled E11.9 (1) Schizoaffective disorder Schizoaffective disorder type: depressive Qualified Code(s): F25.1 - Schizoaffective disorder, depressive type
[2022-11-15] MEDS: MELATONIN 3 MG TAB PO SCH (21:17)
[2022-11-15] MEDS: rOPINIRole HCL 0.25 MG TABLET PO SCH (21:18)
[2022-11-15] MEDS: QUEtiapine FUMARATE 200 MG TAB PO SCH (21:18)
[2022-11-15] MEDS: hydrOXYzine HCl 25 MG TAB PO PRN (21:18)
[2022-11-15] MEDS: DIVALPROEX EXTENDED RELEASE 500 MG TAB PO SCH (21:19)
[2022-11-16] MEDS: LEVOTHYROXINE SODIUM 50 MCG TABLET PO SCH (06:14)
--- NOTE | 2022-11-16 08:49 | Hospitalist Progress Note ---
Date of Service November 16, 2022 Assessment & Plan (1) Gastroenteritis: Plan: Presented with weakness, N/V/diarrhea. Recently admitted earlier this month for UTI and viral enteritis. Tachycardic with elevated lactate on admission, which rapidly improved with IV fluids. CTAP without evidence of acute process. Stool PCR panel and C. diff negative. PT/OT evaluated given felt weak on admit, recommends home PT, which has been arranged. Resolved problem, no diarrhea for last few days. (2) Lactic acidemia: Plan: Lactate 4.2 on admission, resolved with IVF as above. (3) Neck pain: Plan: New problem while in hospital, improve today with sretching, and OOB to chair. No bony tenderness, ROM deficits. Attributes it to hospital bed. Tylenol as needed for pain. (4) Hypothyroid: Plan: Continue levothyroxine. (5) Restless leg: Plan: Continue Requip. (6) Tobacco use: Plan: Nicotine patch daily while admitted. (7) GERD (gastroesophageal reflux disease): Plan: Continue daily PPI. (8) History of pulmonary embolism: Plan: Continue Xarelto. (9) Schizoaffective disorder: Plan: Continue buspirone, Depakote, Lexapro, and Seroquel. (10) DM II (diabetes mellitus, type II), controlled: Plan: Holding metformin in favor of basal/bolus insulin while admitted. DM2 diet. Plan CM following - although patient is medically ready to leave hospital, she has no transportation to get home. Usually takes [facility] - unfortunately, it is booked until 11/17/21. Transport arranged for 11/17/21 Admission and Anticipated Discharge Date Admission Date: November 10, 2022 Subjective No complaints today. No diarrhea. Feeling homesick. Reports her daughter cannot drive right now and she does not have a car. Review of Systems Review of Systems: All systems reviewed & are unremarkable except as noted in Subjective Physical Exam Constitutional: WD/WN, vitals as above Respiratory: normal respiratory effort, lungs clear to auscultation Cardiovascular: RRR, no murmur, no edema Skin: no rashes, warm and dry Psychiatric: Orientation: alert and oriented x 3 Affect: euthymic affect Results & Data Results & Data ([facility]) Vital Signs (Past 12 Hours) Vital Signs Temp Pulse Resp BP BP Pulse Ox O2 Del Method 01/02/23 08:33 106/65 11/16/22 07:59 36.6 C 67 18 91/63 L 94 Room Air PG Care Time/CCT Total # of Minutes Spent Total Time Spent with Patient: Total time spent is greater than 50% in coordination of care (as documented) at patient's floor/unit and/or counseling patient: Coding Level of Care Code 77360 Subseq Hosp Care Lvl 1 Diagnoses Gastroenteritis K52.9 Lactic acidemia E87.20 Neck pain M54.2 Hypothyroid E03.9 Restless leg G25.81 Tobacco use Z72.0 GERD (gastroesophageal reflux disease) K21.9 History of pulmonary embolism Z86.711 Schizoaffective disorder F25.1 Schizoaffective disorder type: depressive DM II (diabetes mellitus, type II), controlled E11.9 (1) Schizoaffective disorder Schizoaffective disorder type: depressive Qualified Code(s): F25.1 - Schizoaffective disorder, depressive type
[2022-11-16] MEDS: LANTUS PER UNIT CHARGE SQ SCH ×2 (09:02→21:02)
[2022-11-16] MEDS: INSULIN ASPART PER UNIT SC SCH ×4 (09:02→21:03)
[2022-11-16] MEDS: RIVAROXABAN 20 MG TAB PO SCH (09:04)
[2022-11-16] MEDS: busPIRone 15 MG TAB PO SCH ×3 (09:04→21:02)
[2022-11-16] MEDS: BENZTROPINE MESYLATE 0.5 MG TAB PO SCH ×2 (09:04→21:02)
[2022-11-16] MEDS: FERROUS SULFATE 325 MG TAB PO SCH (09:04)
[2022-11-16] MEDS: THIAMINE HCL 100 MG TAB PO SCH ×2 (09:04→21:02)
[2022-11-16] MEDS: PANTOprazole 40 MG TAB PO SCH (09:05)
[2022-11-16] MEDS: FOLIC ACID 1 MG TAB PO SCH (09:05)
[2022-11-16] MEDS: ESCITALOPRAM OXALATE 20 MG TAB PO SCH (09:05)
[2022-11-16] MEDS: PANCREAZE (LIPASE 10,500U) CAP PO SCH ×3 (09:05→16:09)
[2022-11-16] MEDS: NICOTINE 21 MG/24 HR TDSY TD SCH (09:06)
[2022-11-16] MEDS: FAMOTIDINE 20 MG TAB PO SCH (10:31)
[2022-11-16] MEDS: CHOLESTYRAMINE LIGHT 4 GM PKT PO SCH ×2 (11:45→22:34)
[2022-11-16] MEDS: MELATONIN 3 MG TAB PO SCH (21:01)
[2022-11-16] MEDS: hydrOXYzine HCl 25 MG TAB PO PRN (21:01)
[2022-11-16] MEDS: QUEtiapine FUMARATE 200 MG TAB PO SCH (21:01)
[2022-11-16] MEDS: DIVALPROEX EXTENDED RELEASE 500 MG TAB PO SCH (21:04)
[2022-11-16] MEDS: rOPINIRole HCL 0.25 MG TABLET PO SCH (21:04)
[2022-11-17] MEDS: LEVOTHYROXINE SODIUM 50 MCG TABLET PO SCH (07:08)
[2022-11-17] MEDS: ACETAMINOPHEN 325 MG TAB PO PRN (08:25)
[2022-11-17] MEDS: RIVAROXABAN 20 MG TAB PO SCH (08:26)
[2022-11-17] MEDS: THIAMINE HCL 100 MG TAB PO SCH (08:26)
[2022-11-17] MEDS: BENZTROPINE MESYLATE 0.5 MG TAB PO SCH (08:26)
[2022-11-17] MEDS: FOLIC ACID 1 MG TAB PO SCH (08:26)
[2022-11-17] MEDS: PANCREAZE (LIPASE 10,500U) CAP PO SCH (08:26)
[2022-11-17] MEDS: PANTOprazole 40 MG TAB PO SCH (08:26)
[2022-11-17] MEDS: ESCITALOPRAM OXALATE 20 MG TAB PO SCH (08:26)
[2022-11-17] MEDS: busPIRone 15 MG TAB PO SCH (08:27)
[2022-11-17] MEDS: NICOTINE 21 MG/24 HR TDSY TD SCH (08:32)
[2022-11-17] MEDS: INSULIN ASPART PER UNIT SC SCH (08:32)
[2022-11-17] MEDS: LANTUS PER UNIT CHARGE SQ SCH (08:33)
[2022-11-17] MEDS: CHOLESTYRAMINE LIGHT 4 GM PKT PO SCH (09:57)
[2022-11-17] MEDS: FAMOTIDINE 20 MG TAB PO SCH (09:57)
--- NOTE | 2022-11-17 11:10 | Discharge Summary ---
Discharge Summary Date of Service November 17, 2022 Admission HPI Per Admitting Provider Tierra Gil is a 67-year-old female with a PMH of Schizoaffective disorder, previous PE on Xarelto, DM II, anxiety, hypothyroidism, IBS, GERD, and restless leg syndrome who presented to the [facility] ED on 11/10/22 with complaints of Nausea, vomiting, and diarrhea. per chart review, the patient was recently admitted to [facility] from 10/20/22- 10/23/22 for UTI and viral enteritis. For her UTI (e. coli sensitive to ceftriaxone) she was initially started on Ceftriaxone x 5 days then was switched to Cefdinir 300 mg BID x 3 days to complete her abx course. Her stool was posi tive for Norovirus and she was treated symptomatically with IV fluids and prn zofran. In the Ed today she was found to be afebrile, hemodynamically stable with a soft BP of 92/67, and stable on RA. Labs were remarkable a WBC WNL, Hgb of 16.5 (up from 13.0 on 10/23 likely from dehydration), stable renal function and electrolytes, initial AG of 13 with lactate of 4.2, glucose of 159, AST of 46, lipase of 9, UA with 1+ ketones, 2+ leukocyte esterase, nitrite negative, and negative for bacteria, and covid negative. Chest xray was read as "No active disease in the chest.". CT of the abdomen/pelvis with IV contrast was read as "1. No acute abnormalities and in particular no evidence of bowel obstruction or pancreatitis. 2. The bladder is under distended and mildly thick walled, correlation with urinalysis is recommended to exclude cystitis.". Prior to admission the patient was given 2L NSS bolus and her BP improved to 120/78, she was also given zofran for nausea. At the time of the exam the patient was resting comfortably in bed in no acute distress. She states that she started to develop nausea, non-bloody emesis, and frequent, non-bloody diarrhea approximately 2 days ago. Since then she has had poor oral intake but has been able to take her medications. She is not sure if she has had fevers but has been cold, she denies chest pain and states that her SOB is at baseline as she still smokes approximately 2-4 packs of cigarettes daily. She denies abdominal pain but states that her nausea has been severe. When asked, she denies dysuria and hematuria, she has a hard time determining if she is having increased urinary frequency. She confirms that she completed her course of Cefdinir as prescribed on her last discharge. She does not feel as though she has been retaining fluid or had leg swelling since discharge. When I brought up the risk of C. diff due to her recent antibiotic use she states that she has had C. diff multiple times in the past. We discussed code status, she is a Full Code. Please refer to Dr. Cruz's attestation for any changes to the treatment plan. Admission Exam Per Admitting Provider General:In no acute distress, stated age, chronically ill-appearing, poor hygiene HEENT:Normocephalic, atraumatic, no scleral icterus, pupils around round, symmetrical, and reactive to light, moist mucus membranes, trachea midline, no thyromegaly Chest/Pulm:No respiratory distress, symmetrical chest expansion, expiratory wheezing noted throughout Cardiac:tachycardic rate, regular rhythm, no murmurs noted Abdomen:Negative for ascites and bruising, normoactive bowel sounds, soft, non-tender to palpation throughout Musculoskeletal:Symmetrical and without signs of acute trauma, upper and lower extremities with full ROM, no atrophy, spasticity, or flaccidity Extremities:Radial, dorsalis pedis, and posterior tibial pulses are intact and symmetrical, no edema noted in the BL LE's Skin:Warm, dry, no rashes , lesions, or scars noted Neuro:Alert and oriented to person, place, no focal defects, CN II-XII tested and intact, patient with baseline tremor in the BL upper extremities Psych:No acute distress, calm and cooperative during the exam Principal Dx & Hospital Course #1 = Principal Diagnosis (1) Gastroenteritis: Presented with weakness, N/V/diarrhea. Recently admitted earlier this month for UTI and viral enteritis. Tachycardic with elevated lactate on admission, which rapidly improved with IV fluids. CTAP without evidence of acute process. Stool PCR panel and C. diff negative. PT/OT evaluated given felt weak on admit, recommends home PT, which has been arranged. Resolved problem, no diarrhea for last few days. (2) Lactic acidemia: Lactate 4.2 on admission, resolved with IVF as above. (3) Neck pain: New problem while in hospital, since resolved. No bony tenderness, ROM deficits. Attributes it to hospital bed. Tylenol as needed for pain. (4) Hypothyroid: Continue levothyroxine. (5) Restless leg: Continue Requip. (6) GERD (gastroesophageal reflux disease): Continue daily PPI. (7) History of pulmonary embolism: Continue Xarelto. (8) Schizoaffective disorder: Continue buspirone, Depakote, Lexapro, and Seroquel. (9) DM II (diabetes mellitus, type II), controlled: Resume home metformin. Plan For ds[facility]arge today via [facility] transport Discharge Exam Constitutional WD/WN, vitals as above Respiratory normal respiratory effort, lungs clear to auscultation Cardiovascular RRR, no murmur, no edema Psychiatric Orientation: alert and oriented x 3 Affect: euthymic affect Updated Medication List Medication Instructions Recorded Confirmed Type buspirone 15 mg tablet 15 mg PO TID 10/25/20 11/10/22 History bvduwd-deugpalb-fiuxmsu 1 cap PO TID 10/25/20 11/10/22 History 12,000-38,000-60,000 unit capsule,delayed rel (Creon) pantoprazole 40 mg tablet,delayed 40 mg PO QAM 10/25/20 11/10/22 History release (Protonix) rivaroxaban 20 mg tablet (Xarelto) 20 mg PO QAM 10/25/20 11/10/22 History escitalopram oxalate 20 mg tablet 20 mg PO QAM 03/18/21 11/10/22 History (Lexapro) ropinirole 0.5 mg tablet 0.5 mg PO HS 03/18/21 11/10/22 History divalproex 500 mg tablet,extended 1,500 mg PO HS 06/03/21 11/10/22 History release 24 hr (Depakote ER) ferrous sulfate 325 mg (65 mg 325 mg PO Q OTHER DAY 06/03/21 11/10/22 History iron) tablet (Iron (ferrous sulfate)) cyanocobalamin (vitamin B-12) 1,000 mcg PO BID 08/05/21 11/10/22 History 1,000 mcg tablet (Vitamin B-12) thiamine HCl (vitamin B1) 100 mg 100 mg PO BID 10/11/21 11/10/22 History tablet (Vitamin B-1) levothyroxine 50 mcg tablet 50 mcg PO QAM 01/21/22 11/10/22 History famotidine 20 mg tablet 20 mg PO DAILY 02/25/22 11/10/22 History folic acid 1 mg tablet 1 mg PO QAM #30 tabs 04/14/22 11/10/22 Rx benztropine 0.5 mg tablet 0.5 mg PO BID 07/25/22 11/10/22 History cholestyramine (with sugar) 4 gram 1 ea PO BID 07/25/22 11/10/22 History powder for susp in a packet (Questran) metformin 500 mg tablet 500 mg PO BID 07/25/22 11/10/22 History quetiapine 400 mg tablet 400 mg PO HS 07/25/22 11/10/22 History melatonin 5 mg capsule 5 mg PO HS #30 caps 10/23/22 11/10/22 Rx Hospital Stay Data Consultations 11/10/22 17:32 ED Decision to Admit Stat Diagnostic Imagining Performed 11/10/22 16:23 CT abd pelvis IV con only Stat Pending Results Patient Have Any Pending Studies at Discharge: No Discharge Instructions Given to Patient (Per Discharging Provider) You were admitted to the hospital for evaluation of diarrhea and elevated blood acid levels (due to your illness). You were given fluids and evaluated with a CT scan of the belly, as well as stool testing for infectious causes, all of which were negative. We suspect that you had a viral gastroenteritis, or a viral gut infection, that caused your symptoms and it has resolved at this time. You were felt to be safe for discharge home. Please follow up with your primary care doctor. We did not have a primary care doctor on your chart, so we added Dr. Stock's information above for you to call if you need a new primary doc in the area. If you have any trouble breathing, chest pain, worsening of abdominal pain, or new diarrhea, please call your primary care doctor or seek urgent medical a ttention. We did not make any changes to your home medications. Total Time Total Time Spent Total Time Spent (In Minutes): 20 minutes Coding Level of Care Code HOSP INP/OBS DISCH 30 MIN/LESS Diagnoses Gastroenteritis K52.9 Lactic acidemia E87.20 Neck pain M54.2 Hypothyroid E03.9 Restless leg G25.81 GERD (gastroesophageal reflux disease) K21.9 History of pulmonary embolism Z86.711 Schizoaffective disorder F25.1 Schizoaffective disorder type: depressive DM II (diabetes mellitus, type II), controlled E11.9
== END 2022-11-17 12:00 | disposition home or self-care (01) | DRG 872 ==
LOC: ED 12:24 → SUATTDRO 17:55 → EDINP 17:55 → 2N 19:47 → 3W 11-13 22:25

== ENCOUNTER 2023-02-11 07:26 | Inpatient (IN) ==
[2023-02-11] MEDS ORDERED: SODIUM CHLORIDE 0.9% 1000ML 1,000 ML IV SCH (08:00)
--- NOTE | 2023-02-11 08:00 | Emergency Department Note ---
History of Present Illness General Chief complaint: Vomiting Time Seen by Provider: 02/11/23 07:48 History of Present Illness Maximum Pain Intensity: 8 This is a 67-year-old female that presents to the emergency department via EMS with complaints of "vomiting". The patient notes that she has had episodes of vomiting now for quite some time and is scheduled to see a specialist next month at [facility]. The patient states that today she presents for evaluation of vomiting that began last night. She notes that this feels similar to her previous episodes of vomiting. She also notes that she is currently on antibiotic for a UTI. Patient denies any fevers. She denies taking any antiemetics today. She rates her current abdominal discomfort as an 8/10 and notes that this feels also similar to previous. Patient denies any blood in the vomit or stool. No chest pain or shortness of breath. No trauma or injury. Home Medications Medication Instructions Recorded Confirmed Type buspirone 15 mg tablet 15 mg PO TID 10/25/20 02/11/23 History [id number]-[id number] 1 cap PO TID 10/25/20 02/11/23 History 12,000-38,000-60,000 unit capsule,delayed rel (Creon) pantoprazole 40 mg tablet,delayed 40 mg PO QAM 10/25/20 02/11/23 History release (Protonix) rivaroxaban 20 mg tablet (Xarelto) 20 mg PO QDD 10/25/20 02/11/23 History escitalopram oxalate 20 mg tablet 20 mg PO QAM 03/18/21 02/11/23 History (Lexapro) ropinirole 0.5 mg tablet 0.5 mg PO HS 03/18/21 02/11/23 History divalproex 500 mg tablet,extended 1,500 mg PO HS 06/03/21 02/11/23 History release 24 hr (Depakote ER) ferrous sulfate 325 mg (65 mg 325 mg PO BID 06/03/21 02/11/23 History iron) tablet (Iron (ferrous sulfate)) cyanocobalamin (vitamin B-12) 1,000 mcg PO BID 08/05/21 02/11/23 History 1,000 mcg tablet (Vitamin B-12) thiamine HCl (vitamin B1) 100 mg 100 mg PO BID 10/11/21 02/11/23 History tablet (Vitamin B-1) famotidine 20 mg tablet 20 mg PO DAILY 02/25/22 02/11/23 History benztropine 0.5 mg tablet 0.5 mg PO BID 07/25/22 02/11/23 History metformin 500 mg tablet 500 mg PO BID 07/25/22 02/11/23 History quetiapine 400 mg tablet 400 mg PO HS 07/25/22 02/11/23 History clonazepam 1 mg tablet 1 mg PO TID PRN Anxiety 01/13/23 02/11/23 History gabapentin 100 mg capsule See Rx Instructions .Route .COMPLEX 01/13/23 02/11/23 History loratadine 10 mg tablet (Claritin) 10 mg PO DAILY 01/13/23 02/11/23 History ondansetron 4 mg disintegrating 4 mg PO Q4H PRN nausea and 01/20/23 02/11/23 Rx tablet vomiting 0 days #10 tabs Allergies Allergy/AdvReac Type Severity Reaction Status Date / Time bee venom protein (honey bee) Allergy Intermediate unk Unverified 02/11/23 11:18 egg AdvReac Severe Vomiting Verified 02/11/23 11:18 Penicillins AdvReac Severe VOMITING/IT Verified 02/11/23 11:18 DAVON Past Med/Surg History Medical History (Updated 02/11/23 @ 23:52 by Jose Rafael Franco PA-C) Acute hyponatremia Anemia Anxiety and depression Arthritis Aspiration pneumonia Chronic diarrhea Diabetes Diarrhea Encounter for pre-operative examination Folate deficiency GERD (gastroesophageal reflux disease) History of pulmonary embolism Hyperparathyroidism Hypomagnesemia Hyponatremia Hypothyroid Hypoxia Iron deficiency anemia Irritable bowel syndrome Nausea & vomiting Nausea and vomiting Pulmonary embolism Rectal bleeding Restless leg Schizoaffective disorder Smoking Vomiting and diarrhea Weakness Weakness Surgical History History of section x2 Family History Denies family history of Inflammatory bowel disease Social History Smoking Status: Current every day smoker Tobacco Type: Cigarettes Cigarettes Per Day: 60; Second Hand Exposure: Yes; Do You Dip or Chew Tobacco: No; Tobacco Cessation Education Requested by Patient: No Hx Alcohol Use: No Hx Substance Use: No Preferred Language: [place] Communication Ability: Effective Communication Ability Comment: can read and write just states she can't spell very well Leisure Studies Professor Required: No Beliefs That Will Affect Care: None marital status: Current Living Situation: Family Current Living Situation Comment: Lives with daughter and a home health aid How many Children do You have: 2 Other Information That Helps Us Care for You: No Feels Safe at Home: Yes Safety Concerns: Feels Safe At This Time Assistive Devices: Glasses Review of Systems A total of 10 systems reviewed and were otherwise negative Physical Exam Vital Signs Vital Signs - 24 hr 02/11/23 07:46 02/11/23 07:51 02/11/23 08:10 Temperature 36.4 C L Temperature Source Temporal Artery Scan Pulse Rate 119 H 116 H Respiratory Rate 22 22 Respiratory Effort / Characteristics Non-Labored Spontaneous Respiratory Depth Normal Blood Pressure 170/104 H Blood Pressure Mean 126 Pulse Oximetry 97 92 Oxygen Delivery Method Room Air Room Air Sepsis Recent Fever Within 48 Hours No Sepsis New/Unexplained Change in Mental Status No Sepsis Action Taken by Nursing No Action Required 02/11/23 07:48 02/11/23 08:00 02/11/23 08:00 Temperature Temperature Source Pulse Rate 116 H 115 H Respiratory Rate 14 27 H Respiratory Effort / Characteristics Respiratory Depth Blood Pressure 159/103 H Blood Pressure Mean 121 Pulse Oximetry Oxygen Delivery Method Sepsis Recent Fever Within 48 Hours Sepsis New/Unexplained Change in Mental Status Sepsis Action Taken by Nursing 02/11/23 08:30 02/11/23 09:00 02/11/23 09:30 Temperature Temperature Source Pulse Rate 115 H 113 H 107 H Respiratory Rate 21 20 18 Respiratory Effort / Characteristics Respiratory Depth Blood Pressure Blood Pressure Mean Pulse Oximetry 92 Oxygen Delivery Method Sepsis Recent Fever Within 48 Hours Sepsis New/Unexplained Change in Mental Status Sepsis Action Taken by Nursing 02/11/23 09:31 02/11/23 10:00 02/11/23 10:02 Temperature Temperature Source Pulse Rate 108 H 105 H 102 H Respiratory Rate 18 16 25 H Respiratory Effort / Characteristics Respiratory Depth Blood Pressure Blood Pressure Mean Pulse Oximetry Oxygen Delivery Method Sepsis Recent Fever Within 48 Hours Sepsis New/Unexplained Change in Mental Status Sepsis Action Taken by Nursing 02/11/23 10:02 Temperature Temperature Source Pulse Rate Respiratory Rate Respiratory Effort / Characteristics Respiratory Depth Blood Pressure 151/105 H Blood Pressure Mean 120 Pulse Oximetry Oxygen Delivery Method Sepsis Recent Fever Within 48 Hours Sepsis New/Unexplained Change in Mental Status Sepsis Action Taken by Nursing VITAL SIGNS - Vital signs and nursing notes were reviewed. Stable and afebrile. GENERAL -67-year-old female appearing her stated age who is in no acute distress however patient is sitting upright in the examination bed holding an emesis bag and is actively vomiting. Communicates well with provider and answers questions appropriately. SKIN - Without rashes. No meningeal or petechial rash. HEAD - NC/AT. EYES - PERRL with EOMI bilaterally. Sclera anicteric. EARS - No deformities of external structures noted on gross examination bilaterally. NOSE - Midline and without cyanosis. No epistaxis or purulent drainage noted. MOUTH/OROPHARYNX - Without perioral cyanosis. Buccal mucosa pink and moist and without leukoplakia. Tongue midline with equal elevation of palate bilaterally. No tonsillar hypertrophy, erythema, or exudates noted. Good dentition noted. NECK - Neck with FROM. No nuchal rigidity. LUNGS - Chest wall symmetric without accessory muscle use, intercostals retractions, or central cyanosis. Normal vesicular breath sounds CTA B/L. No wheezes, rales, or rhonchi appreciated. CARDIAC - RRR with S1/S2. No murmur, rubs, or gallops appreciated. ABDOMEN - Abdominal contour normal without pulsations or visible masses. BS normoactive all four quadrants. No tenderness, palpable masses, hepatosplenomegaly, or ascites noted. EXTREMITIES - No clubbing or peripheral cyanosis. +5/5 strength noted in UE/LE bilaterally. NEUROLOGIC - Cranial nerves II through XII grossly intact. PSYCH - A&O, and cooperates fully with examiner. Pt is very pleasant and interacts well with examiner. Course Administered Medications Lipase/Protease/Amylase (Pancreaze (Lipase 10,500u) Cap) 1 cap PO TIDM [facility] Stop: 03/13/23 12:59 Last Admin: 02/11/23 17:12 Dose: Not Given Documented By: Admin: 02/11/23 14:52 Dose: Not Given Documented By: ABBIE Benztropine Mesylate (Benztropine Mesylate 0.5 Mg Tab) 0.5 mg PO BID [facility] Stop: 03/13/23 20:59 Last Admin: 02/11/23 20:47 Dose: 0.5 mg Documented By: BALJINDER Buspirone HCl (Buspirone 15 Mg Tab) 15 mg PO TID MARY Stop: 03/13/23 13:59 Last Admin: 02/11/23 20:47 Dose: 15 mg Documented By: Admin: 02/11/23 14:52 Dose: 15 mg Documented By: ABBIE Clonazepam (Clonazepam 1 Mg Tab) 1 mg PO TID PRN PRN Reason: Anxiety Stop: 03/13/23 11:10 Last Admin: 02/11/23 20:58 Dose: 1 mg Documented By: HERNESTOK Divalproex Sodium (Divalproex Extended Release 500 Mg Tab) 1,500 mg PO HS MARY Stop: 03/13/23 20:59 Last Admin: 02/11/23 20:47 Dose: 1,500 mg Documented By: HERNESTOK Gabapentin (Gabapentin 100 Mg Cap) 100 mg PO BID@0900,1200 [facility] Stop: 03/13/23 12:59 Last Admin: 02/11/23 14:52 Dose: 100 mg Documented By: ABBIE Gabapentin (Gabapentin 100 Mg Cap) 200 mg PO HS MARY Stop: 03/13/23 20:59 Last Admin: 02/11/23 20:47 Dose: 200 mg Documented By: BALJINDER Parenteral Electrolytes (Normosol-R) 1,000 mls @ 125 mls/hr IV .Q8H MARY Stop: 03/13/23 10:59 Last Admin: 02/11/23 20:40 Dose: 125 mls/hr Documented By: Infusion: 02/11/23 19:34 Dose: 125 mls/hr Documented By: Admin: 02/11/23 11:34 Dose: 125 mls/hr Documented By: MARGARITA Pantoprazole Sodium 40 mg/ (Syringe) 10 mls @ 5 mls/min IV BID MARY Stop: 03/13/23 13:14 Last Admin: 02/11/23 20:48 Dose: 5 mls/min Documented By: Admin: 02/11/23 14:50 Dose: 5 mls/min Documented By: ABBIE Famotidine 20 mg/ Syringe 5 mls @ 2.5 mls/min IV Q12 MARY Stop: 03/13/23 20:59 Last Admin: 02/11/23 20:48 Dose: 2.5 mls/min Documented By: BALJINDER Insulin Aspart (Insulin Aspart Per Unit Charge) 0 units SC ACHS MARY Stop: 03/13/23 12:56 Last Admin: 02/11/23 20:39 Dose: Not Given Documented By: BALJINDER Co-signed By: KIANNA Admin: 02/11/23 17:17 Dose: Not Given Documented By: KKSteffen Admin: 02/11/23 14:51 Dose: Not Given Documented By: ABBIE Insulin Glargine (Lantus Per Unit Charge) 7 units SQ BID MARY Stop: 03/13/23 20:59 Last Admin: 02/11/23 20:39 Dose: 7 units Documented By: TNK Co-signed By: KIANNA Ondansetron HCl (Ondansetron Inj 2 Mg/Ml 2 Ml Vial) 4 mg IV Q6H PRN PRN Reason: Nausea Stop: 03/13/23 12:56 Last Admin: 02/11/23 17:12 Dose: 4 mg Documented By: ABBIE Quetiapine Fumarate (Quetiapine Fumarate 200 Mg Tab) 400 mg PO HS MARY Stop: 03/13/23 20:59 Last Admin: 02/11/23 20:46 Dose: 400 mg Documented By: TNK Rivaroxaban (Rivaroxaban 20 Mg Tab) 20 mg PO QDD MARY Stop: 03/13/23 16:29 Last Admin: 02/11/23 17:12 Dose: Not Given Documented By: ABBIE Ropinirole HCl (Ropinirole Hcl 0.25 Mg Tablet) 0.5 mg PO HS MARY Stop: 03/13/23 20:59 Last Admin: 02/11/23 20:46 Dose: 0.5 mg Documented By: HERNESTOK Thiamine HCl (Thiamine Hcl 100 Mg Tab) 100 mg PO BID MARY Stop: 03/13/23 20:59 Last Admin: 02/11/23 20:46 Dose: 100 mg Documented By: TNK Discontinued Medications Sodium Chloride (Nss 1000ml) 1,000 mls @ 500 mls/hr IV .Q2H MARY Stop: 02/11/23 09:59 Last Infusion: 02/11/23 10:31 Dose: 0 mls/hr Documented By: Admin: 02/11/23 08:23 Dose: 500 mls/hr Documented By: LEONIDES Ceftriaxone Sodium (Rocephin) 2,000 mg in 70 mls @ 140 mls/hr IV NOW STA Stop: 02/11/23 10:11 Last Infusion: 02/11/23 10:31 Dose: 0 mls/hr Documented By: Admin: 02/11/23 09:49 Dose: 140 mls/hr Documented By: LEONIDES Potassium Chloride (K Zeferino / Wtr) 10 meq in 100 mls @ 100 mls/hr IV Q1H MARY Stop: 02/11/23 12:59 Last Infusion: 02/11/23 15:51 Dose: 0 mls/hr Documented By: Admin: 02/11/23 14:51 Dose: 100 mls/hr Documented By: Infusion: 02/11/23 12:33 Dose: 0 mls/hr Documented By: Admin: 02/11/23 11:33 Dose: 100 mls/hr Documented By: MARGARITA Magnesium Sulfate/Dextrose (Magnesium Sulfate / D5w) 1 gm in 100 mls @ 50 mls/hr IV Q2H MARY Stop: 02/11/23 14:59 Last Infusion: 02/11/23 16:50 Dose: 0 mls/hr Documented By: Admin: 02/11/23 14:50 Dose: 50 mls/hr Documented By: Infusion: 02/11/23 13:32 Dose: 0 mls/hr Documented By: Admin: 02/11/23 11:32 Dose: 50 mls/hr Documented By: MARGARITA Ondansetron HCl (Ondansetron Inj 2 Mg/Ml 2 Ml Vial) 4 mg IV NOW STA Stop: 02/11/23 08:12 Last Admin: 02/11/23 08:23 Dose: 4 mg Documented By: LEONIDES Medical Decision Making Laboratory Data 02/11/23 07:45 02/11/23 07:45 Lab Results 02/11/23 02/11/23 02/11/23 Range/Units 07:45 07:45 07:45 WBC 9.54 (4.8-10.8) K/ul RBC 5.24 (4.20-5.40) M/uL Hgb 17.2 H (12.0-16.0) g/dl Hct 48.8 H (37.0-47.0) % MCV 93.1 (80.0-100.0) fL MCH 32.8 (25.0-34.0) pg MCHC 35.2 (32.0-36.0) g/dL RDW Std Deviation 42.5 (36.4-46.3) fL RDW Coeff of [place] 12.3 (11.5-14.5) % Plt Count 210 (130-400) K/uL MPV 9.8 (9.4-12.4) fL Immature Gran % (Auto) 1.3 % Neut % (Auto) 61.1 % Lymph % (Auto) 23.2 % [place] % (Auto) 8.4 % Eos % (Auto) 5.5 % Baso % (Auto) 0.5 % Neut # (Auto) 5.84 (1.40-6.50) K/uL Lymph # (Auto) 2.21 (1.2-3.4) K/uL [place] # (Auto) 0.80 H (0.11-0.59) K/uL Eos # (Auto) 0.52 H (0-0.50) K/uL Baso # (Auto) 0.05 (0-0.2) K/uL Immature Gran # (Auto) 0.12 (0.01-0.20) K/uL Sodium 144 (136-145) mmol/L Potassium 3.4 L (3.5-5.1) mmol/L Chloride 105 (98-107) mmol/L Carbon Dioxide 22 (21-32) mmol/L Anion Gap 17 H (3-11) BUN 6 (6-23) mg/dl Creatinine 0.73 (0.6-1.2) mg/dl Est Cr Clr Drug Dosing 86.0 ml/min Est GFR ( Amer) 100.2 ml/min Est GFR (Non-Af Amer) 86.4 ml/min BUN/Creatinine Ratio 8.2 L (10-20) Glucose 150 H (70-99(Fasting)) mg/dl Lactate (0.4-2.0) mmol/L Calcium 9.8 (8.6-10.3) mg/dl Magnesium 1.5 L (1.7-2.4) mg/dl Total Bilirubin 0.5 (0.2-1.0) mg/dl AST 29 (13-39) U/L ALT 19 (7-52) U/L Alkaline Phosphatase 192 H (34-104) U/L Troponin I High Sens 5.5 (0-14) pg/ml Total Protein 7.1 (6.0-8.3) gm/dl Albumin 3.6 (3.4-5.0) gm/dl Globulin 3.5 (2.5-4.0) gm/dl Albumin/Globulin Ratio 1.0 (0.9-2) Lipase 16 (11-82) U/L Procalcitonin < 0.05 (0-0.5) ng/ml TSH (0.300-4.500) uIu/ml Free T4 (0.61-1.60) ng/dl SARS-CoV-2 (PCR) (Negative) Influenza Type A (PCR) (Neg) Influenza Type B (PCR) (Neg) RSV (RT-PCR) (Neg) 02/11/23 02/11/23 02/11/23 Range/Units 07:45 08:19 09:12 WBC (4.8-10.8) K/ul RBC (4.20-5.40) M/uL Hgb (12.0-16.0) g/dl Hct (37.0-47.0) % MCV (80.0-100.0) fL MCH (25.0-34.0) pg MCHC (32.0-36.0) g/dL RDW Std Deviation (36.4-46.3) fL RDW Coeff of [place] (11.5-14.5) % Plt Count (130-400) K/uL MPV (9.4-12.4) fL Immature Gran % (Auto) % Neut % (Auto) % Lymph % (Auto) % [place] % (Auto) % Eos % (Auto) % Baso % (Auto) % Neut # (Auto) (1.40-6.50) K/uL Lymph # (Auto) (1.2-3.4) K/uL [place] # (Auto) (0.11-0.59) K/uL Eos # (Auto) (0-0.50) K/uL Baso # (Auto) (0-0.2) K/uL Immature Gran # (Auto) (0.01-0.20) K/uL Sodium (136-145) mmol/L Potassium (3.5-5.1) mmol/L Chloride (98-107) mmol/L Carbon Dioxide (21-32) mmol/L Anion Gap (3-11) BUN (6-23) mg/dl Creatinine (0.6-1.2) mg/dl Est Cr Clr Drug Dosing ml/min Est GFR ( Amer) ml/min Est GFR (Non-Af Amer) ml/min BUN/Creatinine Ratio (10-20) Glucose (70-99(Fasting)) mg/dl Lactate 4.2 H* (0.4-2.0) mmol/L Calcium (8.6-10.3) mg/dl Magnesium (1.7-2.4) mg/dl Total Bilirubin (0.2-1.0) mg/dl AST (13-39) U/L ALT (7-52) U/L Alkaline Phosphatase (34-104) U/L Troponin I High Sens (0-14) pg/ml Total Protein (6.0-8.3) gm/dl Albumin (3.4-5.0) gm/dl Globulin (2.5-4.0) gm/dl Albumin/Globulin Ratio (0.9-2) Lipase (11-82) U/L Procalcitonin (0-0.5) ng/ml TSH 4.881 H (0.300-4.500) uIu/ml Free T4 1.03 (0.61-1.60) ng/dl SARS-CoV-2 (PCR) NEGATIVE (Negative) Influenza Type A (PCR) Negative (Neg) Influenza Type B (PCR) Negative (Neg) RSV (RT-PCR) Negative (Neg) Imaging Data Radiologist's Impression: Chest X-Ray 02/11/23 08:00 XR chest 1V portable CLINICAL HISTORY: emesis TECHNIQUE: Single frontal radiograph of the chest was obtained. Comparison: Comparison is made to chest radiograph 02/03/2023 FINDINGS: No lines and tubes are seen. The cardiomediastinal silhouette is normal. The lungs are clear. No evidence of pleural effusion or pneumothorax. IMPRESSION: No acute chest disease. ACT 112: Negative or not required by law. Electronically signed by: Devon España M.D. 02/11/2023 8:29 AM MDM Narrative Patient was seen and evaluated as above in room B17. Review was performed of triage nursing notes and vital signs. I did review pertinent previous visits and patient history. After obtaining a thorough history and physical examination the above work up was performed. Patient presents to us today via EMS for evaluation of nausea and vomiting. She has a history of nausea/vomiting. Upon my entrance into the examination room the patient is actively vomiting into an emesis bag that also has some emesis in the bag. There is no bright red blood e mesis present. I did review her CT scan of the abd/pelvis from earlier this month. Her exam at this time reveals a benign abdomen and will defer repeat CT of the abd/pelvis pending further findings and clinical assessments. Options of care were discussed with the patient. IV access was established. Labs were drawn. I do believe that antiemetics are reasonable. Although the patient does have a diagnosis of prolonged QT interval in the EMR, I did elect to obtain an EKG here today which reveals sinus tachycardia rate of 114 bpm. QTc 479. QRS 124. At this time with the patient actively vomiting I do believe that zofran is reasonable and believe that the benefit outweighs risk. The dann ent's EKG is similar to previous EKG was performed earlier this month on the eighth. With the patient also having recent treatment for UTI in the setting of presentation today with vomiting I do believe that empiric antibiotics intravenously are reasonable. IV ceftriaxone ordered. It is noted that she has tolerated this before in this hospital several times without issue. She has a benign abdominal exam. No leukocytosis or concerning anemia. Mild hypokalemia at 3.4. No evidence of kidney or liver failure. Lactate elevated but likely secondary to dehydration and less likely to represent sepsis at this time. Therefore the 30ml/kg fluid bolus in the ED was not administered. Mild hypomagnesemia noted. Trop negative. Procal undetectable. Tsh mildly elevated. Free T4 normal range. UA without evidence today of UTI. COV, FLU, RSV test is negative. CXR negative. I do believe that proceeding with inpatient management is reasonable at this time. Case discussed with the hospitalist service. Please refer to further documentation regarding her stay. Case was discussed with the attending physician. GCS: 15 In the evaluation and treatment of this patient, the following differential diagnoses were considered: ASC, SC, Pneumonia, GERD, Cholecystitis, Ascending Cholangitis, Cholydocholithiasis, Bowel Obstruction, acute abdomen, sepsis, UTI, pyelonephritis, among others. Impression & Plan Nausea & vomiting, Abdominal pain, Hypokalemia Discharge Plan Visit Data Chief Complaint: Vomiting ED Provider: Ric Raya ED Midlevel Provider: Jose Rafael Franco Discharge Problem: Nausea & vomiting, Abdominal pain, Hypokalemia Patient Disposition: Admitted As Inpatient Discharge Instructions Interventions: ED Discharge Assessment Last Done: 02/11/23 12:25
[2023-02-11] MEDS ORDERED: ONDANSETRON INJ 2 MG/ML 2 ML VIAL IV STA (08:11)
[2023-02-11 08:29] LABS: Basophils # (auto) 0.05 K/uL (0-0.2); Basophils % (auto) 0.5 %; Eosinophils # (auto) 0.52 K/uL (0-0.50); Eosinophils % (auto) 5.5 %; Hematocrit (blood only) 48.8 % (37.0-47.0); Hemoglobin 17.2 g/dl (12.0-16.0); Immature Granulocytes # (auto) 0.12 K/uL (0.01-0.20); Immature Granulocytes % (auto) 1.3 %; Lymphocytes # (auto) 2.21 K/uL (1.2-3.4); Lymphocytes % (auto) 23.2 %; Mean Corpuscular Hemoglobin 32.8 pg (25.0-34.0); Mean Corpuscular Hgb Conc 35.2 g/dL (32.0-36.0); Mean Corpuscular Volume 93.1 fL (80.0-100.0); Mean Platelet Volume 9.8 fL (9.4-12.4); Monocytes % (auto) 8.4 %; Neutrophils # (auto) 5.84 K/uL (1.40-6.50); Neutrophils % (auto) 61.1 %; Platelet Count 210 K/uL (130-400); RDW Coefficient of Variation 12.3 % (11.5-14.5); RDW Standard Deviation 42.5 fL (36.4-46.3); Red Blood Count 5.24 M/uL (4.20-5.40); White Blood Count 9.54 K/ul (4.8-10.8)
--- NOTE | 2023-02-11 08:30 | XRay Report ---
XR chest 1V portable CLINICAL HISTORY: emesis TECHNIQUE: Single frontal radiograph of the chest was obtained. Comparison: Comparison is made to chest radiograph 02/03/2023 FINDINGS: No lines and tubes are seen. The cardiomediastinal silhouette is normal. The lungs are clear. No evid ence of pleural effusion or pneumothorax. IMPRESSION: No acute chest disease. ACT 112: Negative or not required by law. Electronically signed by: Devon España M.D. 02/11/2023 8:29 AM
[2023-02-11 08:40] LABS: Troponin I High Sensitivity 5.5 pg/ml (0-14)
[2023-02-11 09:18] LABS: Influenza A virus by PCR Negative (Neg); Influenza B virus by PCR Negative (Neg); RSV by PCR Negative (Neg); SARS CoV2 RNA(COVID-19) Ceph NEGATIVE (Negative)
[2023-02-11] MEDS ORDERED: cefTRIAXone SODIUM 2,000 MG/70 ML BAG IV STA (09:42)
--- NOTE | 2023-02-11 10:17 | History & Physical Report ---
Date of Service February 11, 2023 Assessment & Plan (1) Nausea & vomiting: Plan: Nausea/vomiting Pending [facility] follow-up next month for extended GI assessment given longstanding and recurrent symptoms. Previously treated and improved with symptomatic care for gastritis. Recurrent ER visits, with 3 in the preceding month for recurrent nausea/vomiting. Was admitted and discharged 11/17/2022 for gastroenteritis which improved with conservative care At bedside abdomen is soft, trace tenderness in the epigastrium with recent vomiting, nondistended and without guarding Inadequate p.o. intake in the preceding 2 days, elevated lactate with sinus tachycardia on admission Pending [facility] follow-up next month for extended GI assessment Received 1 L of fluid, Rocephin empiric coverage Lactate repeat pending Troponin negative, diffuse ischemic changes on EKG without ST elevation. Clinically is without chest pain. Troponin series trended, suspect demand Recently treated for UTI with Rocephin/Keflex, UC follow-up was negative and UA on ER assessment is uninfected appearing. Defer additional antibiotics.? Antibiotic DepoCyte/gastritis medicamentosa contributing to symptoms. Suspect her elevated lactate is due to severe volume depletion and nausea/vomiting, she is currently covered with 1 dose of Rocephin. Will treat nausea/vomiting symptomatically, treat with fluids and follow. If she becomes febrile, or other source is identified resume antibiotic treatment at that time. Given that her symptoms are improved, her abdomen is not rigid and she is not having pain at time of initial assessment will defer repeat CTA/P; however if symptoms recur or she develops abdominal pain will repeat CTA/P with contrast. - K 3.4, repleted - Mg 1.5, repleted - QT borderline, continuous telemetry. Magnesium repleted. (2) DM II (diabetes mellitus, type II), controlled: Plan: Type II DM Home metformin held Weight-based basal bolus Basal dose reduced by 30% to 7 units twice daily Goal BSG 110-140 (3) Tobacco use: Plan: - Cessation encouraged - nicotine 21mcg patch PRN for craving (4) Hypothyroid: Plan: Hypothyroidism Synthroid continued, TSH pending (5) Schizoaffective disorder: Plan: Schizoaffective disorder Continue BuSpar Continue Depakote Continue Lexapro Continue Seroquel - QT is borderling. Mg repleted, continuous telemetry. - Continue home clonazepam, dosing confirmed with pharmacy (6) History of pulmonary embolism: Plan: History of PE Continue Xarelto, patient denies bleeding/melena/hematemesis (7) UTI (urinary tract infection): Plan: UTI Patient was treated for polyuria and possibly infected UA after ER visit 02/03/2023. Was treated with empiric Rocephin and discharged on Keflex. UC with multiple growth, inconsistent with UTI. Patient has taken these as directed up until ER assessment, she reports she does not have any burning with urination and UA is not infected appearing. Additional antibiotics deferred. Plan DVT prophylaxis: Anticoagulated Disposition: Medical telemetry for monitoring with borderline QTp and electrolyte derangement CODE STATUS: Full code Diet: Clears as tolerated, advance as tolerated History of Present Illness Primary Care Provider: NO PCP Tierra is a 67-year-old female with a history of multiple episodes of recurrent vomiting who is scheduled to see [facility] gastroenterology who was last seen 02/09/2023 for episodes of vomiting 3 presents today for vomiting which started overnight and is similar to prior episodes. Has an 8/10 abdominal discomfort, vomit is without blood. In the ER she is mildly hypertensive, with sinus tachycardia and nonspecific ST changes concerning for ischemia. QTc 479. No abdominal pain Vomiting subsided for 2-3 days after last visit, returned 2 days ago no blood. medications in ER have helped nausea Vomiting/diarrhea most of the day yesterday and today. Several time per hour, just stopped since being in the ER No chest pain or chest pressure No shortness of breath different from usual, endorses some baseline SoB from smoking. Not sure how much she smokes No alcohol use UTI diagnosed last week in the ER. Taking abx as directed Does not know medicines by heart. "I just take the bubble pack'. Packs are prepared by [facility]. Pharmacy contacted, and med list was faxed to ER. Medications reconciled from list Having a followup with GI at [facility] 'going to see what they can do.' 4th visit in past 30 days On cefdinir the keflex for UTI. 24-48 nausea vomiting No leukocytosis Hemoglobin 17.2,? Hemoconcentrated Lactate 4.2, repeat post fluids pending BMP is pending High-sensitivity troponin is 5.5 Labs CTA/P 01/13/2023 without acute abnormalities Medical History: Reviewed Medications: Reviewed Surgical History: Reviewed Family history: Reviewed Allergies: Reviewed Social History: Tobacco use Code Status: Full Code Allergies Allergy/AdvReac Type Severity Reaction Status Date / Time bee venom protein (honey bee) Allergy Intermediate unk Unverified 02/03/23 16:07 egg AdvReac Severe Vomiting Verified 02/03/23 16:07 Penicillins AdvReac Severe VOMITING/IT Verified 02/03/23 16:07 DAVON Home Medications Medication Instructions Recorded Confirmed Type buspirone 15 mg tablet 15 mg PO TID 10/25/20 02/11/23 History hinwvj-uzodjrhu-fzmwelc 1 cap PO TID 10/25/20 02/11/23 History 12,000-38,000-60,000 unit capsule,delayed rel (Creon) pantoprazole 40 mg tablet,delayed 40 mg PO QAM 10/25/20 02/11/23 History release (Protonix) rivaroxaban 20 mg tablet (Xarelto) 20 mg PO QDD 10/25/20 02/11/23 History escitalopram oxalate 20 mg tablet 20 mg PO QAM 03/18/21 02/11/23 History (Lexapro) ropinirole 0.5 mg tablet 0.5 mg PO HS 03/18/21 02/11/23 History divalproex 500 mg tablet,extended 1,500 mg PO HS 06/03/21 02/11/23 History release 24 hr (Depakote ER) ferrous sulfate 325 mg (65 mg 325 mg PO BID 06/03/21 02/11/23 History iron) tablet (Iron (ferrous sulfate)) cyanocobalamin (vitamin B-12) 1,000 mcg PO BID 08/05/21 02/11/23 History 1,000 mcg tablet (Vitamin B-12) thiamine HCl (vitamin B1) 100 mg 100 mg PO BID 10/11/21 02/11/23 History tablet (Vitamin B-1) famotidine 20 mg tablet 20 mg PO DAILY 02/25/22 02/11/23 History benztropine 0.5 mg tablet 0.5 mg PO BID 07/25/22 02/11/23 History metformin 500 mg tablet 500 mg PO BID 07/25/22 02/11/23 History quetiapine 400 mg tablet 400 mg PO HS 07/25/22 02/11/23 History clonazepam 1 mg tablet 1 mg PO TID PRN Anxiety 01/13/23 02/11/23 History gabapentin 100 mg capsule See Rx Instructions .Route .COMPLEX 01/13/23 02/11/23 History loratadine 10 mg tablet (Claritin) 10 mg PO DAILY 01/13/23 02/11/23 History ondansetron 4 mg disintegrating 4 mg PO Q4H PRN nausea and 01/20/23 02/11/23 Rx tablet vomiting 0 days #10 tabs Past Med/Surg History Medical History (Updated 02/11/23 @ 11:16 by Sarmad Cruz MD) Acute hyponatremia Anemia Anxiety and depression Arthritis Aspiration pneumonia Chronic diarrhea Diabetes Diarrhea Encounter for pre-operative examination Folate deficiency GERD (gastroesophageal reflux disease) History of pulmonary embolism Hyperparathyroidism Hypomagnesemia Hyponatremia Hypothyroid Hypoxia Iron deficiency anemia Irritable bowel syndrome Nausea & vomiting Nausea and vomiting Pulmonary embolism Rectal bleeding Restless leg Schizoaffective disorder Smoking Vomiting and diarrhea Weakness Weakness Surgical History History of section x2 Family History Denies family history of Inflammatory bowel disease Social History Smoking Status: Never smoker Tobacco Type: Cigarettes Cigarettes Per Day: 60; Second Hand Exposure: No; Hx Alcohol Use: No Hx Substance Use: No Preferred Language: Japanese Communication Ability: Effective Communication Ability Comment: can read and write just states she can't spell very well Motor Analyst Required: No Beliefs That Will Affect Care: Muslim marital status: Current Living Situation: Family Current Living Situation Comment: Lives with daughter and a home health aid How many Children do You have: 2 Feels Safe at Home: Yes Assistive Devices: Walker and Wheelchair Review of Systems Review of Systems: All systems reviewed & are unremarkable except as noted in HPI & below Physical Exam Physical Exam: General: A&Ox3. NAD. Cooperative. HEENT: Atraumatic, normocephalic. PERLAA. vision/hearing grossly intact Pulm: CTAB A&P. -wheezes, -rales, -rhonchi. Symmetrical chest rise. No increased work of breathing. No respiratory distress. Cardiac: tachycardic, -mrg. Radial pulses intact and symmetrical. Abdominal: Minimal epigastric tenderness, otherwise nontender, nondistended, soft. BS increased. No guarding. Ext: warm, dry. Well perfused at assessment. No mottling. Sensation/strength grossly intact. Results & Data Results & Data Vital Signs (Past 12 Hours) Vital Signs Temp Pulse Resp BP Pulse Ox O2 Del Method 02/11/23 10:02 151/105 H 02/11/23 10:02 102 H 25 H 02/11/23 10:00 105 H 16 02/11/23 09:31 108 H 18 02/11/23 09:30 107 H 18 02/11/23 09:00 113 H 20 02/11/23 08:30 115 H 21 92 02/11/23 08:00 115 H 27 H 02/11/23 08:00 159/103 H 02/11/23 07:48 116 H 14 02/11/23 08:10 22 92 Room Air 02/11/23 07:51 116 H 02/11/23 07:46 36.4 C L 119 H 22 170/104 H 97 Room Air PG Care Time/CCT Total # of Minutes Spent Total Time Spent with Patient: Total time spent is greater than 50% in coordination of care (as documented) at patient's floor/unit and/or counseling patient: Coding Level of Care Code 80049 INT INP/OBS CARE 3/75MIN Diagnoses Nausea & vomiting R11.2 DM II (diabetes mellitus, type II), controlled E11.9 Tobacco use Z72.0 Hypothyroid E03.9 Schizoaffective disorder F25.1 Schizoaffective disorder type: depressive History of pulmonary embolism Z86.711 UTI (urinary tract infection) N39.0 (5) Schizoaffective disorder Schizoaffective disorder type: depressive Qualified Code(s): F25.1 - Schizoaffective disorder, depressive type
[2023-02-11 10:33] LABS: Appearance Urine Clear (Clear); Bilirubin Urine Negative (Negative); Blood Urine Negative (Negative); Color Urine Yellow; Glucose Urine UA Negative (Negative); Ketones Urine 1+ (Negative); Leukocyte Esterase Urine Negative (Negative); Nitrite Urine Negative (Negative); Protein Urine Negative (Negative); Specific Gravity Urine 1.014 (1.000-1.030); Urobilinogen Urine Negative (Negative); pH Urine 6.5 (4.5-7.5)
[2023-02-11 10:38] LABS: Albumin Level 3.6 gm/dl (3.4-5.0); Bilirubin,Total 0.5 mg/dl (0.2-1.0); Calcium 9.8 mg/dl (8.6-10.3); Magnesium 1.5 mg/dl (1.7-2.4); Potassium 3.4 mmol/L (3.5-5.1)
[2023-02-11 10:48] LABS: BUN Creatinine Ratio 8.2 (10-20); Est GFR (African American) 100.2 ml/min; Est GFR (Non-African American) 86.4 ml/min
[2023-02-11 10:49] LABS: Globulin 3.5 gm/dl (2.5-4.0); Total Protein 7.1 gm/dl (6.0-8.3)
[2023-02-11] MEDS: MAGNESIUM SULFATE / D5W 1 GM/100 ML BAG IV SCH ×2 (11:32→14:50)
[2023-02-11] MEDS: POTASSIUM CHLORIDE / WTR 10 MEQ/100 ML PLCT IV SCH ×2 (11:33→14:51)
[2023-02-11] MEDS: PLASMA-LYTE A 1,000 ML IV SCH ×2 (11:34→20:40)
[2023-02-11] MEDS ORDERED: GLUCOSE 10 TAB/TUBE PO PRN (12:57)
[2023-02-11] MEDS ORDERED: GLUCAGON FOR INJ 1 MG VIAL SQ PRN (12:57)
[2023-02-11] MEDS ORDERED: DEXTROSE 50% 50 ML SYRINGE IV PRN (12:57)
[2023-02-11] MEDS ORDERED: ONDANSETRON INJ 2 MG/ML 2 ML VIAL IV PRN (12:57)
[2023-02-11] MEDS ORDERED: CARBOHYDRATES FOR HYPOGLYCEMIA PO PRN (12:57)
[2023-02-11] MEDS ORDERED: GLUCOSE 40% GEL 15 GM TUBE PO PRN (12:57)
[2023-02-11] MEDS: PANTOprazole 40 MG in SYRINGE 0 ML IV SCH ×2 (14:50→20:48)
[2023-02-11] MEDS: INSULIN ASPART PER UNIT CHARGE SC SCH ×3 (14:51→20:39)
[2023-02-11] MEDS: PANCREAZE (LIPASE 10,500U) CAP PO SCH ×2 (14:52→17:12)
[2023-02-11] MEDS: GABAPENTIN 100 MG CAP PO SCH ×2 (14:52→20:47)
[2023-02-11] MEDS: busPIRone 15 MG TAB PO SCH ×2 (14:52→20:47)
[2023-02-11 15:38] LABS: Thyroid Stimulating Hormone 4.881 uIu/ml (0.300-4.500)
[2023-02-11 16:11] LABS: T4 Free Thyroxine 1.03 ng/dl (0.61-1.60)
[2023-02-11] MEDS: RIVAROXABAN 20 MG TAB PO SCH (17:12)
[2023-02-11] MEDS: LANTUS PER UNIT CHARGE SQ SCH (20:39)
[2023-02-11] MEDS: rOPINIRole HCL 0.25 MG TABLET PO SCH (20:46)
[2023-02-11] MEDS: QUEtiapine FUMARATE 200 MG TAB PO SCH (20:46)
[2023-02-11] MEDS: THIAMINE HCL 100 MG TAB PO SCH (20:46)
[2023-02-11] MEDS: BENZTROPINE MESYLATE 0.5 MG TAB PO SCH (20:47)
[2023-02-11] MEDS: DIVALPROEX EXTENDED RELEASE 500 MG TAB PO SCH (20:47)
[2023-02-11] MEDS: FAMOTIDINE 20 MG in SYRINGE 3 ML IV SCH (20:48)
[2023-02-11] MEDS: clonazePAM 1 MG TAB PO PRN (20:58)
[2023-02-11] MEDS ORDERED: PLASMA-LYTE A 500 ML IV ONE (23:54)
[2023-02-12] MEDS: PLASMA-LYTE A 1,000 ML IV SCH ×2 (05:29→13:37)
--- NOTE | 2023-02-12 05:51 | Electrocardiogram Report ---
Test Reason : Blood Pressure : / mmHG Vent. Rate : 114 BPM Atrial Rate : 114 BPM P-R Int : 120 ms QRS Dur : 124 ms QT Int : 348 ms P-R-T Axes : 000 132 -07 degrees QTc Int : 479 ms Sinus tachycardia Right axis deviation Possible Right ventricular hypertrophy Right bundle branch block Abnormal ECG When compared with ECG of 20-JAN-2023 09:13, Vent. rate has increased BY 39 BPM Confirmed by Cruzito Martinez ([id number]) on 02/12/2023 5:50:48 AM Referred By: REFERRED SELF Confirmed By:Cruzito Martinez
--- NOTE | 2023-02-12 07:46 | Hospitalist Progress Note ---
Date of Service February 12, 2023 Assessment & Plan (1) Nausea & vomiting: Plan: -History of N/V/D intermittent for the last few months, has upcoming GI evaluation in the next month, will try to determine date of appointment from daughter -Lactate on admission of 4, suspected to be due to significant nausea/vomiting over the last several days, improved to 1.1 today with IV fluids -? viral gastroenteritis vs. GERD-related vs. other etiology -Consider CTAP with IV contrast if with worsening of symptoms, however symptoms have greatly improved with IV fluids and conservative management -Increased Pepcid and pantoprazole to BID dosing IV while in-house, possibly to continue twice daily dosing on discharge -C diff ordered as patient also has diarrhea intermittent -Diet escalated to regular DM 2 diet without issues, possible discharge in the next day or so depending on continued symptom improvement (2) DM II (diabetes mellitus, type II), controlled: Plan: -Home metformin held -Cont basal at decreased dose 7u BID with SSI, adjust as necessary based on BSGs (3) Tobacco use: Plan: -Nicotine 21mcg patch PRN for craving (4) Hypothyroid: Plan: -Synthroid continued, TSH 4.881 with reflex FT4 of 4.881 (5) Schizoaffective disorder: Plan: -Continue BuSpar, Depakote, Lexapro, Seroquel -QTc 479, Mg 2.0 -Continue home clonazepam TID prn (6) History of pulmonary embolism: Plan: -Continue Xarelto, patient denies bleeding/melena/hematemesis (7) UTI (urinary tract infection): Plan: -Ruled out. Patient was treated for polyuria and possibly infected UA after ER visit 02/03/2023. Was treated with empiric Rocephin and discharged on Keflex. UCx with multiple growth, inconsistent with UTI. Patient has taken these as directed up until ER assessment. She reports she does not have any burning with urination and UA is not infected appearing. Additional antibiotics deferred. Plan DVT prophylaxis: Xarelto Disposition: Medical/telemetry CODE STATUS: Full code Diet: DM 2 diet Admission and Anticipated Discharge Date Admission Date: February 11, 2023 Subjective Patient with significant improvement in symptoms overnight with IV fluids and IV PPI/H2. She has upcoming appointment with [facility], however she does not recall when that appointment is, and advised me to reach out to her daughter. She denies any abdominal pain or nausea today. Tolerated food without much difficulty. Did participate with physical therapy today after much encouragement from this provider and from nursing staff which went fairly well, though she did feel quite tired afterwards. Review of Systems Review of Systems: All systems reviewed & are unremarkable except as noted in Subjective Physical Exam Constitutional: WD/WN, vitals as above Respiratory: normal respiratory effort, lungs clear to auscultation Cardiovascular: RRR, no murmur, no edema Gastrointestinal (Abdomen): normal bowel sounds, soft, nontender, no hepatosplenomegaly Skin: no rashes, warm and dry Psychiatric: A+Ox3, euthymic affect Results & Data Results & Data Vital Signs (Past 12 Hours) Vital Signs Temp Pulse Pulse Resp BP Pulse Ox O2 Del Method 02/12/23 07:28 73 02/12/23 04:51 36.7 C 85 20 106/71 92 Room Air 02/12/23 02:04 81 100/66 02/12/23 00:42 36.7 C 82 20 103/67 91 Room Air 02/12/23 00:06 89 02/11/23 23:06 36.7 C 87 20 100/67 91 Room Air 02/11/23 21:09 Room Air PG Care Time/CCT Total # of Minutes Spent Total Time Spent with Patient: Total time spent is greater than 50% in coordination of care (as documented) at patient's floor/unit and/or counseling patient: Coding Level of Care Code 48676 SUB INP/OBS CARE 2/35MIN Diagnoses Nausea & vomiting R11.2 DM II (diabetes mellitus, type II), controlled E11.9 Tobacco use Z72.0 Hypothyroid E03.9 Schizoaffective disorder F25.1 Schizoaffective disorder type: depressive History of pulmonary embolism Z86.711 UTI (urinary tract infection) N39.0 (5) Schizoaffective disorder Schizoaffective disorder type: depressive Qualified Code(s): F25.1 - Schizoaffective disorder, depressive type
[2023-02-12 08:17] LABS: Basophils # (auto) 0.03 K/uL (0-0.2); Basophils % (auto) 0.4 %; Eosinophils # (auto) 0.86 K/uL (0-0.50); Eosinophils % (auto) 11.3 %; Hemoglobin 13.6 g/dl (12.0-16.0); Immature Granulocytes # (auto) 0.05 K/uL (0.01-0.20); Immature Granulocytes % (auto) 0.7 %; Lymphocytes # (auto) 3.51 K/uL (1.2-3.4); Lymphocytes % (auto) 46.2 %; Mean Corpuscular Hemoglobin 32.8 pg (25.0-34.0); Mean Corpuscular Hgb Conc 34.9 g/dL (32.0-36.0); Mean Platelet Volume 9.9 fL (9.4-12.4); Monocytes # (auto) 0.56 K/uL (0.11-0.59); Monocytes % (auto) 7.4 %; Neutrophils # (auto) 2.58 K/uL (1.40-6.50); Platelet Count 164 K/uL (130-400); RDW Coefficient of Variation 12.3 % (11.5-14.5); RDW Standard Deviation 42.8 fL (36.4-46.3); Red Blood Count 4.15 M/uL (4.20-5.40); White Blood Count 7.59 K/ul (4.8-10.8)
[2023-02-12 08:26] LABS: BUN Creatinine Ratio 12.1 (10-20); Creatinine Clr Calc Pharmacy 94.9 ml/min; Est GFR (African American) 107.4 ml/min; Est GFR (Non-African American) 92.7 ml/min; Potassium 3.8 mmol/L (3.5-5.1)
[2023-02-12] MEDS: FAMOTIDINE 20 MG in SYRINGE 3 ML IV SCH ×2 (08:31→20:52)
[2023-02-12] MEDS: THIAMINE HCL 100 MG TAB PO SCH ×2 (08:32→20:43)
[2023-02-12] MEDS: BENZTROPINE MESYLATE 0.5 MG TAB PO SCH ×2 (08:32→20:42)
[2023-02-12] MEDS: busPIRone 15 MG TAB PO SCH ×3 (08:32→20:41)
[2023-02-12] MEDS: PANTOprazole 40 MG in SYRINGE 0 ML IV SCH ×2 (08:32→20:43)
[2023-02-12] MEDS: ESCITALOPRAM OXALATE 20 MG TAB PO SCH (08:33)
[2023-02-12] MEDS: GABAPENTIN 100 MG CAP PO SCH ×3 (08:33→20:42)
[2023-02-12] MEDS: PANCREAZE (LIPASE 10,500U) CAP PO SCH ×3 (08:33→17:26)
[2023-02-12] MEDS: INSULIN ASPART PER UNIT CHARGE SC SCH ×4 (08:37→20:52)
[2023-02-12] MEDS: LANTUS PER UNIT CHARGE SQ SCH ×2 (08:40→20:52)
[2023-02-12] MEDS ORDERED: PANTOprazole 40 MG TAB PO SCH (09:00)
[2023-02-12 09:02] LABS: Estimated Average Glucose 140 mg/dl; Hemoglobin A1C 6.5 % (4.5-5.6)
[2023-02-12] MEDS: RIVAROXABAN 20 MG TAB PO SCH (17:26)
[2023-02-12] MEDS: clonazePAM 1 MG TAB PO PRN (20:40)
[2023-02-12] MEDS: DIVALPROEX EXTENDED RELEASE 500 MG TAB PO SCH (20:40)
[2023-02-12] MEDS: rOPINIRole HCL 0.25 MG TABLET PO SCH (20:41)
[2023-02-12] MEDS: QUEtiapine FUMARATE 200 MG TAB PO SCH (20:42)
[2023-02-13 00:45] LABS: Appearance Urine Clear (Clear); Bilirubin Urine Negative (Negative); Blood Urine Negative (Negative); Color Urine Yellow; Glucose Urine UA Negative (Negative); Ketones Urine Negative (Negative); Leukocyte Esterase Urine Negative (Negative); Nitrite Urine Negative (Negative); Protein Urine Negative (Negative); Specific Gravity Urine 1.006 (1.000-1.030); Urobilinogen Urine Negative (Negative); pH Urine 8.5 (4.5-7.5)
[2023-02-13] MEDS: ACETAMINOPHEN 325 MG TAB PO PRN ×2 (06:46→21:06)
[2023-02-13] MEDS: PANCREAZE (LIPASE 10,500U) CAP PO SCH ×3 (08:07→16:56)
[2023-02-13] MEDS: GABAPENTIN 100 MG CAP PO SCH ×3 (08:08→21:08)
[2023-02-13] MEDS: ESCITALOPRAM OXALATE 20 MG TAB PO SCH (08:08)
[2023-02-13] MEDS: busPIRone 15 MG TAB PO SCH ×3 (08:08→21:08)
[2023-02-13] MEDS: BENZTROPINE MESYLATE 0.5 MG TAB PO SCH ×2 (08:08→21:07)
[2023-02-13] MEDS: INSULIN ASPART PER UNIT CHARGE SC SCH ×4 (08:12→21:20)
[2023-02-13] MEDS: LANTUS PER UNIT CHARGE SQ SCH ×2 (08:13→21:19)
[2023-02-13] MEDS: THIAMINE HCL 100 MG TAB PO SCH ×2 (12:05→21:07)
[2023-02-13] MEDS: PANTOprazole 40 MG in SYRINGE 0 ML IV SCH (12:06)
[2023-02-13] MEDS: FAMOTIDINE 20 MG in SYRINGE 3 ML IV SCH (12:06)
--- NOTE | 2023-02-13 14:46 | Hospitalist Progress Note ---
Date of Service February 13, 2023 Assessment & Plan (1) Nausea & vomiting: Plan: -History of N/V/D intermittent for the last few months, has upcoming GI evaluation in the next month, will try to determine date of appointment from daughter, have been unable to reach her so far, voicemail left -Lactate on admission of 4, suspected to be due to significant nausea/vomiting over the last several days, improved to 1.1 with IV fluids -? viral gastroenteritis vs. GERD-related most likely -Consider CTAP with IV contrast if with worsening of symptoms, however symptoms have essentially resolved at this point with conservative management and IV fluids -Continue Pepcid and pantoprazole BID dosing, transition to p.o. today -C diff ordered as patient also has diarrhea intermittent, however has not had a BM since 02/11 so highly unlikely -Diet escalated to regular DM 2 diet without issues, patient is medically stable for discharge today however unable to secure a ride for the patient, so plan for discharge tomorrow (2) DM II (diabetes mellitus, type II), controlled: Plan: -Home metformin held -Increase basal insulin to 10 units BID with SSI, continue to adjust as necessary based on BSGs (3) Tobacco use: Plan: -Nicotine 21mcg patch PRN for craving (4) Hypothyroid: Plan: -Synthroid continued, TSH 4.881 with reflex FT4 of 4.881 (5) Schizoaffective disorder: Plan: -Continue BuSpar, Depakote, Lexapro, Seroquel -QTc 479, Mg 2.0 -Continue home clonazepam TID prn (6) History of pulmonary embolism: Plan: -Continue Xarelto, patient denies bleeding/melena/hematemesis (7) UTI (urinary tract infection): Plan: -Ruled out. Patient was treated for polyuria and possibly infected UA after ER visit 02/03/2023. Was treated with empiric Rocephin and discharged on Keflex. UCx with multiple growth, inconsistent with UTI. Patient has taken these as directed up until ER assessment. She reports she does not have any burning with urination and UA is not infected appearing. Additional antibiotics deferred. Plan DVT prophylaxis: Xarelto Disposition: Medical/telemetry CODE STATUS: Full code Diet: DM 2 diet Admission and Anticipated Discharge Date Admission Date: February 11, 2023 Subjective Patient without nausea or vomiting today, tolerated her meals so far today without difficulty, no abdominal pain. Feeling much better today, is sleepy. Review of Systems Review of Systems: All systems reviewed & are unremarkable except as noted in Subjective Physical Exam Constitutional: WD/WN, vitals as above Respiratory: normal respiratory effort, lungs clear to auscultation Cardiovascular: RRR, no murmur, no edema Gastrointestinal (Abdomen): normal bowel sounds, soft, nontender, no hepatosplenomegaly Skin: no rashes, warm and dry Psychiatric: A+Ox3, euthymic affect Results & Data Results & Data Vital Signs (Past 12 Hours) Vital Signs Temp Pulse Pulse Resp BP Pulse Ox O2 Del Method 02/13/23 10:48 72 02/13/23 10:41 Room Air 02/13/23 08:03 36.7 C 75 18 117/75 91 Room Air PG Care Time/CCT Total # of Minutes Spent Total Time Spent with Patient: Total time spent is greater than 50% in coordination of care (as documented) at patient's floor/unit and/or counseling patient: Coding Level of Care Code 97401 SUB INP/OBS CARE 2/35MIN Diagnoses Nausea & vomiting R11.2 DM II (diabetes mellitus, type II), controlled E11.9 Tobacco use Z72.0 Hypothyroid E03.9 Schizoaffective disorder F25.1 Schizoaffective disorder type: depressive History of pulmonary embolism Z86.711 UTI (urinary tract infection) N39.0 (5) Schizoaffective disorder Schizoaffective disorder type: depressive Qualified Code(s): F25.1 - Schizoaffective disorder, depressive type
[2023-02-13] MEDS: RIVAROXABAN 20 MG TAB PO SCH (16:56)
[2023-02-13] MEDS: DIVALPROEX EXTENDED RELEASE 500 MG TAB PO SCH (21:07)
[2023-02-13] MEDS: rOPINIRole HCL 0.25 MG TABLET PO SCH (21:07)
[2023-02-13] MEDS: QUEtiapine FUMARATE 200 MG TAB PO SCH (21:08)
[2023-02-13] MEDS: FAMOTIDINE 20 MG TAB PO SCH (21:10)
[2023-02-13] MEDS: PANTOprazole 40 MG TAB PO SCH (21:10)
--- NOTE | 2023-02-14 07:14 | Discharge Summary ---
Discharge Summary Date of Service February 14, 2023 Admission HPI Per Admitting Provider Tierra is a 67-year-old female with a history of multiple episodes of recurrent vomiting who is scheduled to see [facility] who was last seen 02/09/2023 for episodes of vomiting 3 presents today for vomiting which started overnight and is similar to prior episodes. Has an 8/10 abdominal discomfort, vomit is without blood. In the ER she is mildly hypertensive, with sinus tachycardia and nonspecific ST changes concerning for ischemia. QTc 479. No abdominal pain Vomiting subsided for 2-3 days after last visit, returned 2 days ago no blood. medications in ER have helped nausea Vomiting/diarrhea most of the day yesterday and today. Several time per hour, just stopped since being in the ER No chest pain or chest pressure No shortness of breath different from usual, endorses some baseline SoB from smoking. Not sure how much she smokes No alcohol use UTI diagnosed last week in the ER. Taking abx as directed Does not know medicines by heart. "I just take the bubble pack'. Packs are prepared by [facility] pharmacy. Pharmacy contacted, and med list was faxed to ER. Medications reconciled from list Having a followup with GI at [facility] 'going to see what they can do.' 4th visit in past 30 days On cefdinir the keflex for UTI. 24-48 nausea vomiting No leukocytosis Hemoglobin 17.2,? Hemoconcentrated Lactate 4.2, repeat post fluids pending BMP is pending High-sensitivity troponin is 5.5 Labs CTA/P 01/13/2023 without acute abnormalities Medical History: Reviewed Medications: Reviewed Surgical History: Reviewed Family history: Reviewed Allergies: Reviewed Social History: Tobacco use Code Status: Full Code Admission Exam Per Admitting Provider General: A&Ox3. NAD. Cooperative. HEENT: Atraumatic, normocephalic. PERLAA. vision/hearing grossly intact Pulm: CTAB A&P. -wheezes, -rales, -rhonchi. Symmetrical chest rise. No increased work of breathing. No respiratory distress. Cardiac: tachycardic, -mrg. Radial pulses intact and symmetrical. Abdominal: Minimal epigastric tenderness, otherwise nontender, nondistended, soft. BS increased. No guarding. Ext: warm, dry. Well perfused at assessment. No mottling. Sensation/strength grossly intact. Principal Dx & Hospital Course #1 = Principal Diagnosis (1) Nausea & vomiting: -Lactate on admission of 4, suspected to be due to significant nausea/vomiting over the last several days, improved to 1.1 with IV fluids -? viral gastroenteritis vs. GERD-related most likely -Consider CTAP with IV contrast in the near future if with worsening of symptoms, however symptoms have resolved at this point -Continue Pepcid and pantoprazole BID p.o. on discharge with GI follow-up -C diff ordered as patient also has diarrhea intermittent, however has not had a BM since 02/11 so highly unlikely -Diet escalated to regular DM 2 diet without issues (2) DM II (diabetes mellitus, type II), controlled: Resume home medications (3) Tobacco use: -Nicotine 21mcg patch PRN for craving (4) Hypothyroid: -Synthroid continued, TSH 4.881 with FT4 1.03 (5) Schizoaffective disorder: -Continue BuSpar, Depakote, Lexapro, Seroquel -QTc 479, Mg 2.0 -Continue home clonazepam TID prn (6) History of pulmonary embolism: -Continue Xarelto, patient denies bleeding/melena/hematemesis (7) UTI (urinary tract infection): -Ruled out. She reports she does not have any burning with urination and UA is not infected appearing. Additional antibiotics deferred. Plan Dispo: home, GI follow up Discharge Exam Constitutional WD/WN, vitals as above Respiratory normal respiratory effort, lungs clear to auscultation Cardiovascular RRR, no murmur, no edema Psychiatric A+Ox3, euthymic affect Updated Medication List Medication Instructions Recorded Confirmed Type buspirone 15 mg tablet 15 mg PO TID 10/25/20 02/11/23 History vsijrf-kxaukawu-fcwsjqi 1 cap PO TID 10/25/20 02/11/23 History 12,000-38,000-60,000 unit capsule,delayed rel (Creon) rivaroxaban 20 mg tablet (Xarelto) 20 mg PO QDD 10/25/20 02/11/23 History escitalopram oxalate 20 mg tablet 20 mg PO QAM 03/18/21 02/11/23 History (Lexapro) ropinirole 0.5 mg tablet 0.5 mg PO HS 03/18/21 02/11/23 History divalproex 500 mg tablet,extended 1,500 mg PO HS 06/03/21 02/11/23 History release 24 hr (Depakote ER) ferrous sulfate 325 mg (65 mg 325 mg PO BID 06/03/21 02/11/23 History iron) tablet (Iron (ferrous sulfate)) cyanocobalamin (vitamin B-12) 1,000 mcg PO BID 08/05/21 02/11/23 History 1,000 mcg tablet (Vitamin B-12) thiamine HCl (vitamin B1) 100 mg 100 mg PO BID 10/11/21 02/11/23 History tablet (Vitamin B-1) benztropine 0.5 mg tablet 0.5 mg PO BID 07/25/22 02/11/23 History metformin 500 mg tablet 500 mg PO BID 07/25/22 02/11/23 History quetiapine 400 mg tablet 400 mg PO HS 07/25/22 02/11/23 History clonazepam 1 mg tablet 1 mg PO TID PRN Anxiety 01/13/23 02/11/23 History gabapentin 100 mg capsule See Rx Instructions .Route .COMPLEX 01/13/23 02/11/23 History loratadine 10 mg tablet (Claritin) 10 mg PO DAILY 01/13/23 02/11/23 History ondansetron 4 mg disintegrating 4 mg PO Q4H PRN nausea and 01/20/23 02/11/23 Rx tablet vomiting 0 days #10 tabs famotidine 20 mg tablet 20 mg PO BID 30 days #60 tabs 02/14/23 Rx pantoprazole 40 mg tablet,delayed 40 mg PO BID 30 days #60 tabs 02/14/23 Rx release (Protonix) Hospital Stay Data Consultations 02/11/23 10:15 ED Decision to Admit Stat Discharge Instructions Given to Patient (Per Discharging Provider) You were admitted to the hospital for nausea and vomiting. Your symptoms resolved with starting increased acid sonya medicines, and getting IV fluids. Since you were not having any more abdominal symptoms or nausea for a few days, we felt you were safe for discharge home. Please follow up with GI about your ongoing nausea. We believe this is due to reflux, and your symptoms improved with adjustment of those medications. Your pantoprazole and famotidine were both increased to twice daily, and these were sent to [facility]. If you have any concerns or questions, please call your family doctor. If any urgent concerns, please seek urgent medical attention. Total Time Total Time Spent Total Time Spent (In Minutes): 35 minutes Coding Level of Care Code 31566 INP/OBS DISCH >30 MIN Diagnoses Nausea & vomiting R11.2 DM II (diabetes mellitus, type II), controlled E11.9 Tobacco use Z72.0 Hypothyroid E03.9 Schizoaffective disorder F25.1 Schizoaffective disorder type: depressive History of pulmonary embolism Z86.711 UTI (urinary tract infection) N39.0
[2023-02-14] MEDS: busPIRone 15 MG TAB PO SCH ×2 (07:22→11:49)
[2023-02-14] MEDS: FAMOTIDINE 20 MG TAB PO SCH (07:22)
[2023-02-14] MEDS: ESCITALOPRAM OXALATE 20 MG TAB PO SCH (07:23)
[2023-02-14] MEDS: GABAPENTIN 100 MG CAP PO SCH ×2 (07:23→11:50)
[2023-02-14] MEDS: PANTOprazole 40 MG TAB PO SCH (07:24)
[2023-02-14] MEDS: PANCREAZE (LIPASE 10,500U) CAP PO SCH ×2 (07:24→11:49)
[2023-02-14] MEDS: BENZTROPINE MESYLATE 0.5 MG TAB PO SCH (07:24)
[2023-02-14] MEDS: THIAMINE HCL 100 MG TAB PO SCH (07:25)
[2023-02-14] MEDS: LANTUS PER UNIT CHARGE SQ SCH (08:00)
[2023-02-14] MEDS: INSULIN ASPART PER UNIT CHARGE SC SCH ×2 (08:01→12:09)
== END 2023-02-14 14:35 | disposition home or self-care (01) | DRG 392 ==
LOC: ED 07:26 → 2N 10:51 → SUATTDRO 10:51 → 2N 12:25

== ENCOUNTER 2023-03-14 07:45 | Inpatient (IN) ==
[2023-03-14] MEDS ORDERED: ONDANSETRON INJ 2 MG/ML 2 ML VIAL IV STA (07:54)
[2023-03-14] MEDS ORDERED: FAMOTIDINE 20MG IV PUSH 20 MG/5 ML SYR IV STA (07:54)
[2023-03-14] MEDS ORDERED: SODIUM CHLORIDE 0.9% 1000ML 1,000 ML IV ONE (07:54)
[2023-03-14 08:24] LABS: Basophils # (auto) 0.05 K/uL (0-0.2); Basophils % (auto) 0.4 %; Eosinophils # (auto) 0.25 K/uL (0-0.50); Hematocrit (blood only) 43.5 % (37.0-47.0); Hemoglobin 15.2 g/dl (12.0-16.0); Immature Granulocytes # (auto) 0.06 K/uL (0.01-0.20); Immature Granulocytes % (auto) 0.5 %; Lymphocytes # (auto) 4.08 K/uL (1.2-3.4); Lymphocytes % (auto) 31.9 %; Mean Corpuscular Hemoglobin 32.7 pg (25.0-34.0); Mean Corpuscular Hgb Conc 34.9 g/dL (32.0-36.0); Mean Corpuscular Volume 93.5 fL (80.0-100.0); Monocytes # (auto) 0.69 K/uL (0.11-0.59); Monocytes % (auto) 5.4 %; Neutrophils # (auto) 7.66 K/uL (1.40-6.50); Neutrophils % (auto) 59.8 %; Platelet Count 175 K/uL (130-400); RDW Coefficient of Variation 12.4 % (11.5-14.5); RDW Standard Deviation 42.5 fL (36.4-46.3); Red Blood Count 4.65 M/uL (4.20-5.40); White Blood Count 12.79 K/ul (4.8-10.8)
[2023-03-14 08:38] LABS: Albumin Globulin Ratio 1.1 (0.9-2); Albumin Level 3.2 gm/dl (3.4-5.0); BUN Creatinine Ratio 6.9 (10-20); Bilirubin,Total 0.5 mg/dl (0.2-1.0); Calcium 8.5 mg/dl (8.6-10.3); Creatinine Clr Calc Pharmacy 85.4 ml/min; Est GFR (African American) 101.9 ml/min; Est GFR (Non-African American) 87.9 ml/min; Globulin 2.8 gm/dl (2.5-4.0); Magnesium 1.6 mg/dl (1.7-2.4); Phosphorus 3.4 mg/dl (2.5-4.9); Potassium 3.9 mmol/L (3.5-5.1)
[2023-03-14 09:19] LABS: Adenovirus PCR Not Detected (NotDetected); Bordetella parapertussis PCR Not Detected (NotDetected); Bordetella pertussis PCR Not Detected (NotDetected); Chlamydia pneumoniae PCR Not Detected (NotDetected); Coronavirus 229E PCR Not Detected (NotDetected); Coronavirus CoV-2 (COVID19)PCR Not Detected (NotDetected); Coronavirus HKU1 PCR Not Detected (NotDetected); Coronavirus NL63 PCR Not Detected (NotDetected); Coronavirus OC43PCR Not Detected (NotDetected); Human Metapneumovirus PCR Not Detected (NotDetected); Influenza A PCR Not Detected (NotDetected); Influenza B PCR Not Detected (NotDetected); Mycoplasma pneumoniae PCR Not Detected (NotDetected); Parainfluenza Virus 1 PCR Not Detected (NotDetected); Parainfluenza Virus 2 PCR Not Detected (NotDetected); Parainfluenza Virus 3 PCR Not Detected (NotDetected); Parainfluenza Virus 4 PCR Not Detected (NotDetected); Respiratory Syncytial VirusPCR Not Detected (NotDetected); Rhinovirus/Enterovirus PCR Not Detected (NotDetected)
[2023-03-14] MEDS ORDERED: OPTIRAY 320 500ml IV ONE (09:32)
--- NOTE | 2023-03-14 10:10 | CT Scan Report ---
ABDOMEN AND PELVIS CT WITH IV CONTRAST CT DOSE: 1465.27 mGy.cm HISTORY: Nausea. Vomiting. Diarrhea. TECHNIQUE: Multiaxial CT images of the abdomen and pelvis were performed following the use of intrave nous contrast. A dose lowering technique was utilized adhering to the principles of ALARA. COMPARISON STUDY: Abdomen and pelvis CT 01/13/2023. FINDINGS: The lung bases are clear. No pneumoperitoneum. No pneumatosis. No acute fractures. The sple en, adrenal glands, pancreas, and kidneys are within normal limits. No hydronephrosis. The main mirela l vein is patent. Stable bile duct dilatation status post cholecystectomy. No hepatic masses. No retr operitoneal lymphadenopathy. No pelvic free fluid. The bladder is unremarkable. Prior hysterectomy. N o bowel wall thickening or obstruction. Fluid-filled nondilated loops of large and small bowel seen t hroughout the abdomen. This is nonspecific but favors a gastroenteritis. Normal appendix. IMPRESSION: 1. No bowel wall thickening or obstruction. 2. Fluid-filled nondilated loops of large or small bowel seen throughout the abdomen. This favors a g astroenteritis/diarrheal illness. 3. Normal appendix. 4. Cholecystectomy. ACT 112: Negative or not required by law. Electronically signed by: Wilfredo Byers M.D. 03/14/2023 10:08 AM
[2023-03-14] MEDS ORDERED: DICYCLOMINE HCL 10 MG/ML 2 ML AMP/VIAL IM ONE (10:53)
[2023-03-14] MEDS ORDERED: MAGNESIUM SULFATE / D5W 1 GM/100 ML BAG IV ONE (10:53)
--- NOTE | 2023-03-14 11:52 | Emergency Department Note ---
Impression & Plan Intractable nausea and vomiting, Chronic diarrhea, Hypomagnesemia, Generalized weakness ED Provider Note NAME: SID JAVIER AGE: 67 SEX: F ARRIVES VIA: Ambulance INFORMANT: Patient ED PROVIDER(S): Joon Cutler MD CHIEF COMPLAINT: n/v/d PLAN: Disposition: Admit MEDICAL DECISION MAKING: The patient is a pleasant 67-year-old woman with a past medical history of chronic nausea, vomiting and diarrhea, type 2 diabetes, GERD, IBS per records, schizoaffective disorder who presents to the emergency department via EMS from home where she lives with her daughter for evaluation of acute worsening of her chronic symptoms of nausea vomiting and diarrhea. She reports she has been unable to keep anything down and did not take her medications today. She denies fevers, cough or congestion. She denies chest pain or shortness of breath. The patient is a poor historian and is not entirely sure what her GI diagnosis is. On arrival to the emergency department the patient is fatigued appearing but in no acute distress, afebrile with stable vital signs. She appears clinically dry. She has generalized abdominal discomfort without discrete tenderness to palpation. EKG without overt acute ischemia. WBC 12.7K nonspecific. H/H and platelets within normal limits. Chemistry without metabolic acidosis. Magnesium 1.6 with repletion provided. LFTs unremarkable. Ammonia is not elevated. Lipase not elevated. Depakote level is within therapeutic range. Respiratory viral panel/[employer] is negative. CT of the abdomen pelvis was performed and demonstrates nonspecific findings that are consistent with enteritis. Upon evaluation the patient did report some improvement though still persistence of weakness and nausea and does not feel as though she can go home and tolerate oral intake well and her daughter cannot care for her. Case was discussed with Anabella ARRIAZA with Dr[facility] Chatman, [facility], who will evaluate the patient for admission. Triage Nursing notes reviewed and agree them. Prior/outside medical records reviewed Vital Signs: reviewed Differential diagnosis: Gastroenteritis, food borne illness, infections, appendicitis, diverticulitis, i nflammatory bowel disease, obstruction, GI bleed, biliary pathology, volvulus, as well as other pathologies. ER treatment provided: See below. Diagnostics interpreted by me: ECG: Normal sinus rhythm, 79 bpm, no ectopy, right bundle branch block, no overt acute ischemia. ST elevation or depression, QTc 467, QRS 134. Cardiac Monitoring: An order for continuous cardiac monitoring was placed and de monstrated Normal sinus rhythm, 79 bpm, no ectopy. Laboratory studies: See below Imaging studies: See below Consultation(s): Anabella ARRIAZA with Dr. Chatman [facility] hospitalist HPI: The patient is a pleasant 67-year-old woman with a past medical history of chronic nausea, vomiting and diarrhea, type 2 diabetes, GERD, IBS per records, schizoaffective disorder who presents to the emergency department via EMS from home where she lives with her daughter for evaluation of acute worsening of her chronic symptoms of nausea vomiting and diarrhea. She reports she has been unable to keep anything down and did not take her medications today. She denies fevers, cough or congestion. She denies chest pain or shortness of breath. The patient is a poor historian and is not entirely sure what her GI diagnosis is. ROS: See above HPI for pertinent positives & negatives. A total of 10 systems reviewed and were otherwise negative. VITALS:See Below PHYSICAL EXAMINATION: GENERAL: Awake, alert, fatigued/uncomfortable-appearing, in no distress, BMI 45.4. HENT: Normocephalic, atraumatic. Oropharynx with dry mucous membranes and otherwise unremarkable. EYES: Normal conjunctiva. Sclera non-icteric. NECK: Supple. No nuchal rigidity. FROM. No JVD. RESPIRATORY: Clear to auscultation. CARDIAC: Regular rate, normal rhythm. Extremities warm and well perfused. Pulses equal. ABDOMEN: Soft, non-distended. Generalized abdominal discomfort without discrete tenderness to palpation. No rebound or guarding. No masses. RECTAL: Deferred. MUSCULOSKELETAL: Chest examination reveals no tenderness. The back is symmetri josé miguel on inspection without obvious abnormality. There is no CVA tenderness to palpation. No joint edema. LOWER EXTREMITIES: Calves are equal size bilaterally and non-tender. No edema. No discoloration. NEURO: Normal sensorium. No sensory or motor deficits noted. SKIN: No rash or jaundice noted. Joon Cutler MD Past Med/Surg History Medical History Acute hyponatremia Anemia Anxiety and depression Arthritis Aspiration pneumonia Chronic diarrhea Diabetes Diarrhea Encounter for pre-operative examination Folate deficiency GERD (gastroesophageal reflux disease) History of pulmonary embolism Hyperparathyroidism Hypomagnesemia Hyponatremia Hypothyroid Hypoxia Iron deficiency anemia Irritable bowel syndrome Nausea & vomiting Nausea and vomiting Pulmonary embolism Rectal bleeding Restless leg Schizoaffective disorder Smoking Vomiting and diarrhea Weakness Weakness Surgical History History of section x2 Family History Denies family history of Inflammatory bowel disease Social History Smoking Status: Current every day smoker Tobacco Type: Cigarettes Cigarettes Per Day: unknown; Second Hand Exposure: Yes; Do You Dip or Chew Tobacco: No; Hx Alcohol Use: No Hx Substance Use: No Preferred Language: Venezuelan Communication Ability: Effective Communication Ability Comment: can read and write just states she can't spell very well 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 Beliefs That Will Affect Care: None marital status: Current Living Situation: Family Current Living Situation Comment: Lives with daughter How many Children do You have: 2 Other Information That Helps Us Care for You: No Feels Safe at Home: Yes Safety Concerns: Feels Safe At This Time Assistive Devices: Walker and Wheelchair Allergies Allergies Allergy/AdvReac Type Severity Reaction Status Date / Time bee venom protein (honey bee) Allergy Intermediate unk Unverified 02/11/23 11:18 egg AdvReac Severe Vomiting Verified 02/11/23 11:18 Penicillins AdvReac Severe VOMITING/IT Verified 02/11/23 11:18 DAVON Home Meds Home Medications Medication Instructions Recorded Confirmed buspirone 15 mg tablet 15 mg PO TID 10/25/20 03/14/23 xcyrck-[id number]-aldgrlc 1 cap PO TID 10/25/20 03/14/23 12,000-38,000-60,000 unit capsule,delayed rel (Creon) rivaroxaban 20 mg tablet (Xarelto) 20 mg PO DAILY 10/25/20 03/14/23 escitalopram oxalate 20 mg tablet 20 mg PO QAM 03/18/21 03/14/23 (Lexapro) ropinirole 0.5 mg tablet 0.5 mg PO HS 03/18/21 03/14/23 divalproex 500 mg tablet,extended 1,500 mg PO HS 06/03/21 03/14/23 release 24 hr (Depakote ER) ferrous sulfate 325 mg (65 mg 325 mg PO Q OTHER DAY 06/03/21 03/14/23 iron) tablet (Iron (ferrous sulfate)) cyanocobalamin (vitamin B-12) 1,000 mcg PO BID 08/05/21 03/14/23 1,000 mcg tablet (Vitamin B-12) thiamine HCl (vitamin B1) 100 mg 100 mg PO BID 10/11/21 03/14/23 tablet (Vitamin B-1) benztropine 0.5 mg tablet 0.5 mg PO BID 07/25/22 03/14/23 metformin 500 mg tablet 500 mg PO BID 07/25/22 03/14/23 quetiapine 400 mg tablet 400 mg PO HS 07/25/22 03/14/23 clonazepam 1 mg tablet 1 mg PO TID PRN Anxiety 01/13/23 03/14/23 gabapentin 100 mg capsule 100 mg PO BID 01/13/23 03/14/23 loratadine 10 mg tablet (Claritin) 10 mg PO DAILY 01/13/23 03/14/23 gabapentin 100 mg capsule 200 mg PO HS 03/14/23 03/14/23 pantoprazole 40 mg tablet,delayed 40 mg PO DAILY 03/14/23 03/14/23 release (Protonix) Previous Rx's Medication Instructions Recorded ondansetron 4 mg disintegrating 4 mg PO Q4H PRN nausea and 01/20/23 tablet vomiting 0 days #10 tabs famotidine 20 mg tablet 20 mg PO BID 30 days #60 tabs 02/14/23 Results & Data (ED) Vital Signs Vital Signs - 24 hr 03/14/23 08:07 03/14/23 08:07 03/14/23 08:09 Temperature 36.9 C Temperature Source Oral Oral Pulse Rate 79 Pulse Rate from SpO2 Sensor Respiratory Rate 18 Respiratory Effort / Characteristics Non-Labored Respiratory Depth Normal Blood Pressure 126/80 Blood Pressure Mean 95 Blood Pressure Position Sitting Pulse Oximetry 95 Oxygen Delivery Method Room Air Room Air Sepsis Recent Fever Within 48 Hours No Sepsis New/Unexplained Change in Mental Status No Sepsis Action Taken by Nursing No Action Required 03/14/23 08:12 03/14/23 07:53 03/14/23 08:00 Temperature Temperature Source Pulse Rate 79 77 80 Pulse Rate from SpO2 Sensor 79 80 Respiratory Rate 17 19 Respiratory Effort / Characteristics Respiratory Depth Blood Pressure Blood Pressure Mean Blood Pressure Position Pulse Oximetry 93 91 Oxygen Delivery Method Sepsis Recent Fever Within 48 Hours Sepsis New/Unexplained Change in Mental Status Sepsis Action Taken by Nursing 03/14/23 08:04 03/14/23 08:04 03/14/23 08:30 Temperature Temperature Source Pulse Rate 79 Pulse Rate from SpO2 Sensor 79 Respiratory Rate 17 Respiratory Effort / Characteristics Respiratory Depth Blood Pressure 126/80 111/85 Blood Pressure Mean 95 93 Blood Pressure Position Pulse Oximetry 94 Oxygen Delivery Method Sepsis Recent Fever Within 48 Hours Sepsis New/Unexplained Change in Mental Status Sepsis Action Taken by Nursing 03/14/23 08:30 03/14/23 09:00 03/14/23 09:00 Temperature Temperature Source Pulse Rate 78 76 Pulse Rate from SpO2 Sensor 77 76 Respiratory Rate 17 19 Respiratory Effort / Characteristics Respiratory Depth Blood Pressure 105/68 Blood Pressure Mean 80 Blood Pressure Position Pulse Oximetry 91 92 Oxygen Delivery Method Sepsis Recent Fever Within 48 Hours Sepsis New/Unexplained Change in Mental Status Sepsis Action Taken by Nursing 03/14/23 11:27 03/14/23 11:28 03/14/23 11:28 Temperature Temperature Source Pulse Rate 74 Pulse Rate from SpO2 Sensor 74 74 Respiratory Rate 24 21 Respiratory Effort / Characteristics Respiratory Depth Blood Pressure 115/73 Blood Pressure Mean 87 Blood Pressure Position Pulse Oximetry 92 92 Oxygen Delivery Method Sepsis Recent Fever Within 48 Hours Sepsis New/Unexplained Change in Mental Status Sepsis Action Taken by Nursing 03/14/23 11:30 03/14/23 11:31 03/14/23 11:31 Temperature Temperature Source Pulse Rate 75 75 Pulse Rate from SpO2 Sensor 75 75 Respiratory Rate 20 22 Respiratory Effort / Characteristics Respiratory Depth Blood Pressure Blood Pressure Mean 24 Blood Pressure Position Pulse Oximetry 93 93 Oxygen Delivery Method Sepsis Recent Fever Within 48 Hours Sepsis New/Unexplained Change in Mental Status Sepsis Action Taken by Nursing 03/14/23 11:35 03/14/23 11:35 Temperature Temperature Source Pulse Rate 72 Pulse Rate from SpO2 Sensor 72 Respiratory Rate 23 Respiratory Effort / Characteristics Respiratory Depth Blood Pressure 95/60 L Blood Pressure Mean 71 Blood Pressure Position Pulse Oximetry 94 Oxygen Delivery Method Sepsis Recent Fever Within 48 Hours Sepsis New/Unexplained Change in Mental Status Sepsis Action Taken by Nursing Laboratory Data Attestation: I reviewed the patient's lab results. 03/14/23 08:05 03/14/23 08:05 Lab Results 03/14/23 03/14/23 03/14/23 Range/Units 08:05 08:05 08:05 WBC 12.79 H (4.8-10.8) K/ul RBC 4.65 (4.20-5.40) M/uL Hgb 15.2 (12.0-16.0) g/dl Hct 43.5 (37.0-47.0) % MCV 93.5 (80.0-100.0) fL MCH 32.7 (25.0-34.0) pg MCHC 34.9 (32.0-36.0) g/dL RDW Std Deviation 42.5 (36.4-46.3) fL RDW Coeff of Vernon 12.4 (11.5-14.5) % Plt Count 175 (130-400) K/uL MPV 10.0 (9.4-12.4) fL Immature Gran % (Auto) 0.5 % Neut % (Auto) 59.8 % Lymph % (Auto) 31.9 % Elliott % (Auto) 5.4 % Eos % (Auto) 2.0 % Baso % (Auto) 0.4 % Neut # (Auto) 7.66 H (1.40-6.50) K/uL Lymph # (Auto) 4.08 H (1.2-3.4) K/uL Elliott # (Auto) 0.69 H (0.11-0.59) K/uL Eos # (Auto) 0.25 (0-0.50) K/uL Baso # (Auto) 0.05 (0-0.2) K/uL Immature Gran # (Auto) 0.06 (0.01-0.20) K/uL Sodium 139 (136-145) mmol/L Potassium 3.9 (3.5-5.1) mmol/L Chloride 105 (98-107) mmol/L Carbon Dioxide 27 (21-32) mmol/L Anion Gap 7 (3-11) BUN 5 L (6-23) mg/dl Creatinine 0.72 (0.6-1.2) mg/dl Est Cr Clr Drug Dosing 85.4 ml/min Est GFR ( Amer) 101.9 ml/min Est GFR (Non-Af Amer) 87.9 ml/min BUN/Creatinine Ratio 6.9 L (10-20) Glucose 86 (70-99(Fasting)) mg/dl Calcium 8.5 L (8.6-10.3) mg/dl Phosphorus 3.4 (2.5-4.9) mg/dl Magnesium 1.6 L (1.7-2.4) mg/dl Total Bilirubin 0.5 (0.2-1.0) mg/dl AST 11 L (13-39) U/L ALT 4 L (7-52) U/L Alkaline Phosphatase 98 (34-104) U/L Ammonia (18-72) umol/L Total Protein 6.0 (6.0-8.3) gm/dl Albumin 3.2 L (3.4-5.0) gm/dl Globulin 2.8 (2.5-4.0) gm/dl Albumin/Globulin Ratio 1.1 (0.9-2) Lipase 8 L (11-82) U/L Valproic Acid 82 (50-100) mcg/ml Adenovirus (PCR) (NotDetected) B. pertussis DNA (PCR) (NotDetected) B.parapertussis DNA PCR (NotDetected) C. pneumoniae DNA (PCR) (NotDetected) Coronavirus OC43 (PCR) (NotDetected) Coronavirus HKU1 (PCR) (NotDetected) Coronavirus 229E (PCR) (NotDetected) SARS-CoV-2 (PCR) (NotDetected) Coronavirus NL63 (PCR) (NotDetected) Human Metapneumovir PCR (NotDetected) Influenza Type A (PCR) (NotDetected) Influenza Type B (PCR) (NotDetected) M. pneumoniae (PCR) (NotDetected) Parainfluenza 1 (PCR) (NotDetected) Parainfluenza 2 (PCR) (NotDetected) Parainfluenza 3 (PCR) (NotDetected) Parainfluenza 4 (PCR) (NotDetected) RSV (PCR) (NotDetected) Entero/Rhino (PCR) (NotDetected) 03/14/23 03/14/23 Range/Units 08:15 08:18 WBC (4.8-10.8) K/ul RBC (4.20-5.40) M/uL Hgb (12.0-16.0) g/dl Hct (37.0-47.0) % MCV (80.0-100.0) fL MCH (25.0-34.0) pg MCHC (32.0-36.0) g/dL RDW Std Deviation (36.4-46.3) fL RDW Coeff of Vernon (11.5-14.5) % Plt Count (130-400) K/uL MPV (9.4-12.4) fL Immature Gran % (Auto) % Neut % (Auto) % Lymph % (Auto) % Elliott % (Auto) % Eos % (Auto) % Baso % (Auto) % Neut # (Auto) (1.40-6.50) K/uL Lymph # (Auto) (1.2-3.4) K/uL Elliott # (Auto) (0.11-0.59) K/uL Eos # (Auto) (0-0.50) K/uL Baso # (Auto) (0-0.2) K/uL Immature Gran # (Auto) (0.01-0.20) K/uL Sodium (136-145) mmol/L Potassium (3.5-5.1) mmol/L Chloride (98-107) mmol/L Carbon Dioxide (21-32) mmol/L Anion Gap (3-11) BUN (6-23) mg/dl Creatinine (0.6-1.2) mg/dl Est Cr Clr Drug Dosing ml/min Est GFR ( Amer) ml/min Est GFR (Non-Af Amer) ml/min BUN/Creatinine Ratio (10-20) Glucose (70-99(Fasting)) mg/dl Calcium (8.6-10.3) mg/dl Phosphorus (2.5-4.9) mg/dl Magnesium (1.7-2.4) mg/dl Total Bilirubin (0.2-1.0) mg/dl AST (13-39) U/L ALT (7-52) U/L Alkaline Phosphatase (34-104) U/L Ammonia 49.0 (18-72) umol/L Total Protein (6.0-8.3) gm/dl Albumin (3.4-5.0) gm/dl Globulin (2.5-4.0) gm/dl Albumin/Globulin Ratio (0.9-2) Lipase (11-82) U/L Valproic Acid (50-100) mcg/ml Adenovirus (PCR) Not Detected (NotDetected) B. pertussis DNA (PCR) Not Detected (NotDetected) B.parapertussis DNA PCR Not Detected (NotDetected) C. pneumoniae DNA (PCR) Not Detected (NotDetected) Coronavirus OC43 (PCR) Not Detected (NotDetected) Coronavirus HKU1 (PCR) Not Detected (NotDetected) Coronavirus 229E (PCR) Not Detected (NotDetected) SARS-CoV-2 (PCR) Not Detected (NotDetected) Coronavirus NL63 (PCR) Not Detected (NotDetected) Human Metapneumovir PCR Not Detected (NotDetected) Influenza Type A (PCR) Not Detected (NotDetected) Influenza Type B (PCR) Not Detected (NotDetected) M. pneumoniae (PCR) Not Detected (NotDetected) Parainfluenza 1 (PCR) Not Detected (NotDetected) Parainfluenza 2 (PCR) Not Detected (NotDetected) Parainfluenza 3 (PCR) Not Detected (NotDetected) Parainfluenza 4 (PCR) Not Detected (NotDetected) RSV (PCR) Not Detected (NotDetected) Entero/Rhino (PCR) Not Detected (NotDetected) Administered Medications Acetaminophen (Acetaminophen 325 Mg Tab) 650 mg PO Q4H PRN PRN Reason: pain/fever Stop: 04/13/23 13:41 Last Admin: 03/14/23 20:00 Dose: 650 mg Documented By: BRANDYN Lipase/Protease/Amylase (Pancreaze (Lipase 10,500u) Cap) 1 cap PO TID [facility] Stop: 04/13/23 15:59 Last Admin: 03/14/23 21:48 Dose: 1 cap Documented By: Admin: 03/14/23 16:36 Dose: 1 cap Documented By: [facility] Benztropine Mesylate (Benztropine Mesylate 0.5 Mg Tab) 0.5 mg PO BID [facility] Stop: 04/13/23 20:59 Last Admin: 03/14/23 21:49 Dose: 0.5 mg Documented By: BRANDYN Buspirone HCl (Buspirone 15 Mg Tab) 15 mg PO TID [facility] Stop: 04/13/23 13:59 Last Admin: 03/14/23 21:51 Dose: 15 mg Documented By: Admin: 03/14/23 14:52 Dose: 15 mg Documented By: JONATHON Cyanocobalamin (Cyanocobalamin (B-12) 500 Mcg Tablet) 1,000 mcg PO BID MARY Stop: 04/13/23 20:59 Last Admin: 03/14/23 21:47 Dose: 1,000 mcg Documented By: BRANDYN Divalproex Sodium (Divalproex Extended Release 500 Mg Tab) 1,500 mg PO [facility] Stop: 04/13/23 20:59 Last Admin: 03/14/23 21:48 Dose: 1,500 mg Documented By: BRANDYN Famotidine (Famotidine 20 Mg Tab) 20 mg PO BID [facility] Stop: 04/13/23 20:59 Last Admin: 03/14/23 21:50 Dose: 20 mg Documented By: BRANDYN Ferrous Sulfate (Ferrous Sulfate 325 Mg Tab) 325 mg PO Q48H [facility] Stop: 04/13/23 13:59 Last Admin: 03/14/23 15:16 Dose: 325 mg Documented By: JONATHON Gabapentin (Gabapentin 100 Mg Cap) 200 mg PO [facility] Stop: 04/13/23 20:59 Last Admin: 03/14/23 21:49 Dose: 200 mg Documented By: BRANDYN Sodium Chloride (Nss 1000ml) 1,000 mls @ 100 mls/hr IV .Q10H MARY Stop: 03/15/23 09:41 Last Admin: 03/14/23 21:51 Dose: 100 mls/hr Documented By: Infusion: 03/14/23 21:51 Dose: 100 mls/hr Documented By: Admin: 03/14/23 13:54 Dose: 100 mls/hr Documented By: JONATHON Promethazine HCl 6.25 mg/ (Sodium Chloride) 50.25 mls @ 201 mls/hr IV Q6H PRN PRN Reason: Nausea And Vomiting Stop: 04/13/23 13:41 Last Infusion: 03/14/23 16:10 Dose: 0 mls/hr Documented By: Admin: 03/14/23 15:11 Dose: 201 mls/hr Documented By: JONATHON Insulin Aspart (Insulin Aspart Per Unit Charge) 0 units SC ACHS MARY Stop: 04/13/23 16:29 Last Admin: 03/14/23 21:00 Dose: Not Given Documented By: BRANDYN Co-signed By: MIKE Admin: 03/14/23 17:53 Dose: Not Given Documented By: JONATHON Quetiapine Fumarate (Quetiapine Fumarate 200 Mg Tab) 400 mg PO HS MARY Stop: 04/13/23 20:59 Last Admin: 03/14/23 21:50 Dose: 400 mg Documented By: BRANDYN Rivaroxaban (Rivaroxaban 20 Mg Tab) 20 mg PO DAILY [facility]ARY Stop: 04/13/23 13:59 Last Admin: 03/14/23 14:52 Dose: 20 mg Documented By: JONATHON Ropinirole HCl (Ropinirole Hcl 0.25 Mg Tablet) 0.5 mg PO HS MARY Stop: 04/13/23 20:59 Last Admin: 03/14/23 21:50 Dose: 0.5 mg Documented By: BRANDYN Thiamine HCl (Thiamine Hcl 100 Mg Tab) 100 mg PO BID [facility]ARY Stop: 04/13/23 20:59 Last Admin: 03/14/23 21:47 Dose: 100 mg Documented By: BRANDYN Discontinued Medications Dicyclomine HCl (Dicyclomine Hcl 10 Mg/Ml 2 Ml Amp/Vial) 20 mg IM NOW ONE Stop: 03/14/23 10:54 Last Admin: 03/14/23 11:29 Dose: 20 mg Documented By: AM Sodium Chloride (Nss 1000ml) 1,000 mls @ 999 mls/hr IV .Q1H1M ONE Stop: 03/14/23 08:54 Last Infusion: 03/14/23 10:34 Dose: 0 mls/hr Documented By: Admin: 03/14/23 08:23 Dose: 999 mls/hr Documented By: SHAYY Famotidine (Pepcid 20mg Iv Push) 20 mg in 5 mls @ 2.5 mls/min IV NOW STA Stop: 03/14/23 07:55 Last Admin: 03/14/23 08:23 Dose: 2.5 mls/min Documented By: SHAYY Magnesium Sulfate/Dextrose (Magnesium Sulfate / D5w) 1 gm in 100 mls @ 50 mls/hr IV ONE ONE Stop: 03/14/23 12:52 Last Infusion: 03/14/23 12:37 Dose: 0 mls/hr Documented By: Admin: 03/14/23 11:31 Dose: 50 mls/hr Documented By: SHA Sodium Chloride (Nss 1000ml) 1,000 mls @ 125 mls/hr IV .Q8H MARY Stop: 04/13/23 11:59 Last Infusion: 03/14/23 14:57 Dose: 0 mls/hr Documented By: Infusion: 03/14/23 14:56 Dose: 738 mls/hr Documented By: Infusion: 03/14/23 13:55 Dose: 100 mls/hr Documented By: Admin: 03/14/23 12:38 Dose: 125 mls/hr Documented By: SHA Ioversol (Optiray 320 500ml) 94 ml IV ONCE ONE Stop: 03/14/23 09:33 Last Admin: 03/14/23 09:32 Dose: 94 ml Documented By: JESSICA Ondansetron HCl (Ondansetron Inj 2 Mg/Ml 2 Ml Vial) 4 mg IV NOW STA Stop: 03/14/23 07:55 Last Admin: 03/14/23 08:23 Dose: 4 mg Documented By: SHAYY Imaging Data Radiologist's Impression: Abdomen/Pelvis CT 03/14/23 07:[address] WITH IV CONTRAST CT DOSE: 1465.27 mGy.cm HISTORY: Nausea. Vomiting. Diarrhea. TECHNIQUE: Multiaxial CT images of the abdomen and pelvis were performed following the use of intravenous contrast. A dose lowering technique was utilized adhering to the principles of ALARA. COMPARISON STUDY: Abdomen and pelvis CT 01/13/2023. FINDINGS: The lung bases are clear. No pneumoperitoneum. No pneumatosis. No acute fractures. The spleen, adrenal glands, pancreas, and kidneys are within normal limits. No hydronephrosis. The main portal vein is patent. Stable bile duct dilatation status post cholecystectomy. No hepatic masses. No retroperitoneal lymphadenopathy. No pelvic free fluid. The bladder is unremarkable. Prior hysterectomy. No bowel wall thickening or obstruction. Fluid-filled nondilated loops of large and small bowel seen throughout the abdomen. This is nonspecific but favors a gastroenteritis. Normal appendix. IMPRESSION: 1. No bowel wall thickening or obstruction. 2. Fluid-filled nondilated loops of large or small bowel seen throughout the abdomen. This favors a gastroenteritis/diarrheal illness. 3. Normal appendix. 4. Cholecystectomy. ACT 112: Negative or not required by law. Electronically signed by: Wilfredo Byers M.D. 03/14/2023 10:08 AM Discharge Plan Visit Data Chief Complaint: Illness Stated Complaint: VOMITING, DIARRHEA ED Provider: Joon Cutler Discharge Problem: Intractable nausea and vomiting, Chronic diarrhea, Hypomagnesemia, Generalized weakness Patient Disposition: Admitted As Inpatient Discharge Instructions Interventions: ED Discharge Assessment Last Done: 03/14/23 13:06
[2023-03-14] MEDS ORDERED: SODIUM CHLORIDE 0.9% 1000ML 1,000 ML IV SCH (12:00)
[2023-03-14] MEDS ORDERED: GLUCOSE 10 TAB/TUBE PO PRN (13:42)
[2023-03-14] MEDS ORDERED: CARBOHYDRATES FOR HYPOGLYCEMIA PO PRN (13:42)
[2023-03-14] MEDS ORDERED: GLUCAGON FOR INJ 1 MG VIAL SQ PRN (13:42)
[2023-03-14] MEDS ORDERED: GLUCOSE 40% GEL 15 GM TUBE PO PRN (13:42)
[2023-03-14] MEDS ORDERED: DEXTROSE 50% 50 ML SYRINGE IV PRN (13:42)
[2023-03-14] MEDS ORDERED: clonazePAM 1 MG TAB PO PRN (13:42)
--- NOTE | 2023-03-14 13:52 | History & Physical Report ---
Date of Service March 14, 2023 Assessment & Plan (1) Nausea vomiting and diarrhea: (2) Morbid obesity with BMI of 45.0-49.9, adult: (3) Weakness: (4) Generalized weakness: (5) Schizoaffective disorder: (6) Hyperglycemia: Plan Patient placed on observation Vitals as protocol. Diet clears for now. Activity: PT OT evaluation ordered. Concerns for fall. Ordered all home meds, except for metformin. Zofran on hold because of QTc. Ordered a gastro evaluation in a.m for evaluation of recurrent nausea vomiting diarrhea. Stool cultures ordered. Patient is on Xarelto for DVT prophylaxis. Discussed CODE STATUS with patient. Insulin sliding scale with NOvology with correction of 40. Admission and Anticipated Discharge Date Admission Date: March 14, 2023 History of Present Illness Chief Complaint: nausea vomiting diarrhea Primary Care Provider: Wen Garza DO 67-year-old female with multiple comorbidities came with complaints of recurrent episodes of nausea and vomiting diarrhea for the past few days. Patient has had similar episodes in the past and has been scheduled to see [facility] gastroenterology. She denies abdominal pain. Has some abdominal discomfort. No blood in stools She ambulates with the help of a walker. No chest pain or shortness of breath. No fevers. She was evaluated in the ER and had labs done, noted to have mild leukocytosis. She has been admitted multiple times over the past few months. . Allergies Allergy/AdvReac Type Severity Reaction Status Date / Time bee venom protein (honey bee) Allergy Intermediate unk Unverified 02/11/23 11:18 egg AdvReac Severe Vomiting Verified 02/11/23 11:18 Penicillins AdvReac Severe VOMITING/IT Verified 02/11/23 11:18 DAVON Home Medications Medication Instructions Recorded Confirmed Type buspirone 15 mg tablet 15 mg PO TID 10/25/20 03/14/23 History ohbfzg-[id number]-denvaym 1 cap PO TID 10/25/20 03/14/23 History 12,000-38,000-60,000 unit capsule,delayed rel (Creon) rivaroxaban 20 mg tablet (Xarelto) 20 mg PO DAILY 10/25/20 03/14/23 History escitalopram oxalate 20 mg tablet 20 mg PO QAM 03/18/21 03/14/23 History (Lexapro) ropinirole 0.5 mg tablet 0.5 mg PO HS 03/18/21 03/14/23 History divalproex 500 mg tablet,extended 1,500 mg PO HS 06/03/21 03/14/23 History release 24 hr (Depakote ER) ferrous sulfate 325 mg (65 mg 325 mg PO Q OTHER DAY 06/03/21 03/14/23 History iron) tablet (Iron (ferrous sulfate)) cyanocobalamin (vitamin B-12) 1,000 mcg PO BID 08/05/21 03/14/23 History 1,000 mcg tablet (Vitamin B-12) thiamine HCl (vitamin B1) 100 mg 100 mg PO BID 10/11/21 03/14/23 History tablet (Vitamin B-1) benztropine 0.5 mg tablet 0.5 mg PO BID 07/25/22 03/14/23 History metformin 500 mg tablet 500 mg PO BID 07/25/22 03/14/23 History quetiapine 400 mg tablet 400 mg PO HS 07/25/22 03/14/23 History clonazepam 1 mg tablet 1 mg PO TID PRN Anxiety 01/13/23 03/14/23 History gabapentin 100 mg capsule 100 mg PO BID 01/13/23 03/14/23 History loratadine 10 mg tablet (Claritin) 10 mg PO DAILY 01/13/23 03/14/23 History ondansetron 4 mg disintegrating 4 mg PO Q4H PRN nausea and 01/20/23 03/14/23 Rx tablet vomiting 0 days #10 tabs famotidine 20 mg tablet 20 mg PO BID 30 days #60 tabs 02/14/23 03/14/23 Rx gabapentin 100 mg capsule 200 mg PO HS 03/14/23 03/14/23 History pantoprazole 40 mg tablet,delayed 40 mg PO DAILY 03/14/23 03/14/23 History release (Protonix) Past Med/Surg History Medical History Acute hyponatremia Anemia Anxiety and depression Arthritis Aspiration pneumonia Chronic diarrhea Diabetes Diarrhea Encounter for pre-operative examination Folate deficiency GERD (gastroesophageal reflux disease) History of pulmonary embolism Hyperparathyroidism Hypomagnesemia Hyponatremia Hypothyroid Hypoxia Iron deficiency anemia Irritable bowel syndrome Nausea & vomiting Nausea and vomiting Pulmonary embolism Rectal bleeding Restless leg Schizoaffective disorder Smoking Vomiting and diarrhea Weakness Weakness Surgical History History of section x2 Family History Denies family history of Inflammatory bowel disease Social History Smoking Status: Current every day smoker Tobacco Type: Cigarettes Cigarettes Per Day: 60; Second Hand Exposure: Yes; Do You Dip or Chew Tobacco: No; Hx Alcohol Use: No Hx Substance Use: No Preferred Language: Polish Communication Ability: Effective Communication Ability Comment: can read and write just states she can't spell very well [employer] Required: No Beliefs That Will Affect Care: None marital status: Current Living Situation: Family Current Living Situation Comment: Lives with daughter and a home health aid How many Children do You have: 2 Feels Safe at Home: Yes Assistive Devices: Glasses, Walker and Wheelchair Review of Systems Review of Systems: I have reviewed all systems as noted in History and physical rest reviewed as negative. Physical Exam Physical Exam: General : Patient is morbidly obese, Neuro: AAOx4, PERRla HEENT: head normocephalic, moist mucus membranes CV: S1/S2, no murmurs ,no crackles Resp: Lungs CTA in all baker. no crackles GI: Abdomen S/NT/ND, Ax4 bowel sounds, (-) CVA tenderness . Mild tenderness + in the left upper quadrant Musculoskeletal: 5/5 B/L UE strength, 5/5 B/L LE strength. No gait disturbance Skin: (-) rashes , (-) erythema. Psych: normal affect Results & Data Results & Data Vital Signs (Past 12 Hours) Vital Signs Temp Pulse Resp BP Pulse Ox O2 Del Method 03/14/23 13:00 74 20 91 03/14/23 13:00 117/77 03/14/23 12:30 76 20 90 03/14/23 12:30 127/76 03/14/23 12:00 74 21 90 03/14/23 12:00 124/77 03/14/23 12:14 72 03/14/23 11:56 75 18 93 03/14/23 11:56 120/74 03/14/23 11:35 72 23 94 03/14/23 11:35 95/60 L 03/14/23 11:31 75 22 93 03/14/23 11:30 75 20 93 03/14/23 11:28 115/73 03/14/23 11:28 74 21 92 03/14/23 11:27 24 92 03/14/23 09:00 76 19 92 03/14/23 09:00 105/68 03/14/23 08:30 78 17 91 03/14/23 08:30 111/85 03/14/23 08:04 126/80 03/14/23 08:04 79 17 94 03/14/23 08:00 80 19 91 03/14/23 07:53 77 17 93 03/14/23 08:12 79 03/14/23 08:07 Room Air 03/14/23 08:07 36.9 C 79 18 126/80 95 Room Air Laboratory Results Laboratory Results WBC 12.79 K/ul (4.8-10.8) H 03/14/23 08:05 RBC 4.65 M/uL (4.20-5.40) 03/14/23 08:05 Hgb 15.2 g/dl (12.0-16.0) 03/14/23 08:05 Hct 43.5 % (37.0-47.0) 03/14/23 08:05 MCV 93.5 fL (80.0-100.0) 03/14/23 08:05 MCH 32.7 pg (25.0-34.0) 03/14/23 08:05 MCHC 34.9 g/dL (32.0-36.0) 03/14/23 08:05 RDW Std Deviation 42.5 fL (36.4-46.3) 03/14/23 08:05 RDW Coeff of [place] 12.4 % (11.5-14.5) 03/14/23 08:05 Plt Count 175 K/uL (130-400) 03/14/23 08:05 MPV 10.0 fL (9.4-12.4) 03/14/23 08:05 Immature Gran % (Auto) 0.5 % 03/14/23 08:05 Neut % (Auto) 59.8 % 03/14/23 08:05 Lymph % (Auto) 31.9 % 03/14/23 08:05 [place] % (Auto) 5.4 % 03/14/23 08:05 Eos % (Auto) 2.0 % 03/14/23 08:05 Baso % (Auto) 0.4 % 03/14/23 08:05 Neut # (Auto) 7.66 K/uL (1.40-6.50) H 03/14/23 08:05 Lymph # (Auto) 4.08 K/uL (1.2-3.4) H 03/14/23 08:05 [place] # (Auto) 0.69 K/uL (0.11-0.59) H 03/14/23 08:05 Eos # (Auto) 0.25 K/uL (0-0.50) 03/14/23 08:05 Baso # (Auto) 0.05 K/uL (0-0.2) 03/14/23 08:05 Immature Gran # (Auto) 0.06 K/uL (0.01-0.20) 03/14/23 08:05 Sodium 139 mmol/L (136-145) 03/14/23 08:05 Potassium 3.9 mmol/L (3.5-5.1) 03/14/23 08:05 Chloride 105 mmol/L (98-107) 03/14/23 08:05 Carbon Dioxide 27 mmol/L (21-32) 03/14/23 08:05 Anion Gap 7 (3-11) 03/14/23 08:05 BUN 5 mg/dl (6-23) L 03/14/23 08:05 Creatinine 0.72 mg/dl (0.6-1.2) 03/14/23 08:05 Est Cr Clr Drug Dosing 85.4 ml/min 03/14/23 08:05 Est GFR ( Amer) 101.9 ml/min 03/14/23 08:05 Est GFR (Non-Af Amer) 87.9 ml/min 03/14/23 08:05 BUN/Creatinine Ratio 6.9 (10-20) L 03/14/23 08:05 Glucose 86 mg/dl (70-99(Fasting)) 03/14/23 08:05 Calcium 8.5 mg/dl (8.6-10.3) L 03/14/23 08:05 Phosphorus 3.4 mg/dl (2.5-4.9) 03/14/23 08:05 Magnesium 1.6 mg/dl (1.7-2.4) L 03/14/23 08:05 Total Bilirubin 0.5 mg/dl (0.2-1.0) 03/14/23 08:05 AST 11 U/L (13-39) L 03/14/23 08:05 ALT 4 U/L (7-52) L 03/14/23 08:05 Alkaline Phosphatase 98 U/L (34-104) 03/14/23 08:05 Ammonia 49.0 umol/L (18-72) 03/14/23 08:18 Total Protein 6.0 gm/dl (6.0-8.3) 03/14/23 08:05 Albumin 3.2 gm/dl (3.4-5.0) L 03/14/23 08:05 Globulin 2.8 gm/dl (2.5-4.0) 03/14/23 08:05 Albumin/Globulin Ratio 1.1 (0.9-2) 03/14/23 08:05 Lipase 8 U/L (11-82) L 03/14/23 08:05 Valproic Acid 82 mcg/ml (50-100) 03/14/23 08:05 Adenovirus (PCR) Not Detected (NotDetected) 03/14/23 08:15 B. pertussis DNA (PCR) Not Detected (NotDetected) 03/14/23 08:15 B.parapertussis DNA PCR Not Detected (NotDetected) 03/14/23 08:15 C. pneumoniae DNA (PCR) Not Detected (NotDetected) 03/14/23 08:15 Coronavirus OC43 (PCR) Not Detected (NotDetected) 03/14/23 08:15 Coronavirus HKU1 (PCR) Not Detected (NotDetected) 03/14/23 08:15 Coronavirus 229E (PCR) Not Detected (NotDetected) 03/14/23 08:15 SARS-CoV-2 (PCR) Not Detected (NotDetected) 03/14/23 08:15 Coronavirus NL63 (PCR) Not Detected (NotDetected) 03/14/23 08:15 Human Metapneumovir PCR Not Detected (NotDetected) 03/14/23 08:15 Influenza Type A (PCR) Not Detected (NotDetected) 03/14/23 08:15 Influenza Type B (PCR) Not Detected (NotDetected) 03/14/23 08:15 M. pneumoniae (PCR) Not Detected (NotDetected) 03/14/23 08:15 Parainfluenza 1 (PCR) Not Detected (NotDetected) 03/14/23 08:15 Parainfluenza 2 (PCR) Not Detected (NotDetected) 03/14/23 08:15 Parainfluenza 3 (PCR) Not Detected (NotDetected) 03/14/23 08:15 Parainfluenza 4 (PCR) Not Detected (NotDetected) 03/14/23 08:15 RSV (PCR) Not Detected (NotDetected) 03/14/23 08:15 Entero/Rhino (PCR) Not Detected (NotDetected) 03/14/23 08:15 Impressions Abdomen/Pelvis CT 03/14/23 07:[address] WITH IV CONTRAST CT DOSE: 1465.27 mGy.cm HISTORY: Nausea. Vomiting. Diarrhea. TECHNIQUE: Multiaxial CT images of the abdomen and pelvis were performed following the use of intravenous contrast. A dose lowering technique was utilized adhering to the principles of ALARA. COMPARISON STUDY: Abdomen and pelvis CT 01/13/2023. FINDINGS: The lung bases are clear. No pneumoperitoneum. No pneumatosis. No acute fractures. The spleen, adrenal glands, pancreas, and kidneys are within normal limits. No hydronephrosis. The main portal vein is patent. Stable bile duct dilatation status post cholecystectomy. No hepatic masses. No retroperitoneal lymphadenopathy. No pelvic free fluid. The bladder is unremarkable. Prior hysterectomy. No bowel wall thickening or obstruction. Fluid-filled nondilated loops of large and small bowel seen throughout the abdomen. This is nonspecific but favors a gastroenteritis. Normal appendix. IMPRESSION: 1. No bowel wall thickening or obstruction. 2. Fluid-filled nondilated loops of large or small bowel seen throughout the abdomen. This favors a gastroenteritis/diarrheal illness. 3. Normal appendix. 4. Cholecystectomy. ACT 112: Negative or not required by law. Electronically signed by: Wilfredo Byers M.D. 03/14/2023 10:08 AM Abnormal Labs 03/14/23 03/14/23 08:05 08:05 WBC 12.79 H Neut # (Auto) 7.66 H Lymph # (Auto) 4.08 H [place] # (Auto) 0.69 H BUN 5 L BUN/Creatinine Ratio 6.9 L Calcium 8.5 L Magnesium 1.6 L AST 11 L ALT 4 L Albumin 3.2 L Lipase 8 L Code Status & VTE Plan VTE Prophylaxis Plan VTE Prophylaxis will be ordered: Yes (5) Schizoaffective disorder Schizoaffective disorder type: depressive Qualified Code(s): F25.1 - Schizoaffective disorder, depressive type
[2023-03-14] MEDS: SODIUM CHLORIDE 0.9% 1000ML 1,000 ML IV SCH ×2 (13:54→21:51)
[2023-03-14] MEDS: RIVAROXABAN 20 MG TAB PO SCH (14:52)
[2023-03-14] MEDS: busPIRone 15 MG TAB PO SCH ×2 (14:52→21:51)
[2023-03-14] MEDS: PROMETHAZINE HCL 6.25 MG in SODIUM CHLORIDE 0.9% 50 ML IV PRN (15:11)
[2023-03-14] MEDS: FERROUS SULFATE 325 MG TAB PO SCH (15:16)
[2023-03-14] MEDS: PANCREAZE (LIPASE 10,500U) CAP PO SCH ×2 (16:36→21:48)
[2023-03-14] MEDS: INSULIN ASPART PER UNIT CHARGE SC SCH ×2 (17:53→21:00)
[2023-03-14 18:15] LABS: Appearance Urine Clear (Clear); Bilirubin Urine Negative (Negative); Blood Urine Negative (Negative); Color Urine Yellow; Glucose Urine UA Negative (Negative); Ketones Urine Trace (Negative); Leukocyte Esterase Urine Negative (Negative); Nitrite Urine Negative (Negative); Protein Urine Negative (Negative); Specific Gravity Urine 1.021 (1.000-1.030); Urobilinogen Urine Negative (Negative); pH Urine 7.5 (4.5-7.5)
[2023-03-14] MEDS: ACETAMINOPHEN 325 MG TAB PO PRN (20:00)
[2023-03-14] MEDS ORDERED: NYSTATIN POWDER 15GM BTL EXT PRN (20:18)
[2023-03-14] MEDS: THIAMINE HCL 100 MG TAB PO SCH (21:47)
[2023-03-14] MEDS: CYANOCOBALAMIN (B-12) 500 MCG TABLET PO SCH (21:47)
[2023-03-14] MEDS: DIVALPROEX EXTENDED RELEASE 500 MG TAB PO SCH (21:48)
[2023-03-14] MEDS: BENZTROPINE MESYLATE 0.5 MG TAB PO SCH (21:49)
[2023-03-14] MEDS: GABAPENTIN 100 MG CAP PO SCH (21:49)
[2023-03-14] MEDS: rOPINIRole HCL 0.25 MG TABLET PO SCH (21:50)
[2023-03-14] MEDS: FAMOTIDINE 20 MG TAB PO SCH (21:50)
[2023-03-14] MEDS: QUEtiapine FUMARATE 200 MG TAB PO SCH (21:50)
[2023-03-15 06:43] LABS: Basophils # (auto) 0.04 K/uL (0-0.2); Basophils % (auto) 0.6 %; Eosinophils # (auto) 0.37 K/uL (0-0.50); Eosinophils % (auto) 5.3 %; Hematocrit (blood only) 38.9 % (37.0-47.0); Hemoglobin 13.4 g/dl (12.0-16.0); Immature Granulocytes # (auto) 0.03 K/uL (0.01-0.20); Immature Granulocytes % (auto) 0.4 %; Lymphocytes # (auto) 3.39 K/uL (1.2-3.4); Lymphocytes % (auto) 48.2 %; Mean Corpuscular Hemoglobin 32.7 pg (25.0-34.0); Mean Corpuscular Hgb Conc 34.4 g/dL (32.0-36.0); Mean Corpuscular Volume 94.9 fL (80.0-100.0); Mean Platelet Volume 10.2 fL (9.4-12.4); Monocytes # (auto) 0.38 K/uL (0.11-0.59); Monocytes % (auto) 5.4 %; Neutrophils # (auto) 2.83 K/uL (1.40-6.50); Neutrophils % (auto) 40.1 %; Platelet Count 148 K/uL (130-400); RDW Coefficient of Variation 12.4 % (11.5-14.5); RDW Standard Deviation 43.2 fL (36.4-46.3); White Blood Count 7.04 K/ul (4.8-10.8)
[2023-03-15 06:52] LABS: BUN Creatinine Ratio 7.8 (10-20); Creatinine Clr Calc Pharmacy 96.1 ml/min; Est GFR (African American) 108.5 ml/min; Est GFR (Non-African American) 93.6 ml/min; Magnesium 1.9 mg/dl (1.7-2.4); Potassium 3.8 mmol/L (3.5-5.1)
[2023-03-15] MEDS: busPIRone 15 MG TAB PO SCH ×3 (08:35→20:03)
[2023-03-15] MEDS: GABAPENTIN 100 MG CAP PO SCH ×3 (08:35→20:00)
[2023-03-15] MEDS: FAMOTIDINE 20 MG TAB PO SCH ×2 (08:36→20:00)
[2023-03-15] MEDS: PANTOprazole 40 MG TAB PO SCH (08:36)
[2023-03-15] MEDS: ESCITALOPRAM OXALATE 20 MG TAB PO SCH (08:36)
[2023-03-15] MEDS: LORATADINE 10 MG TAB PO SCH (08:36)
[2023-03-15] MEDS: PANCREAZE (LIPASE 10,500U) CAP PO SCH ×3 (08:37→20:00)
[2023-03-15] MEDS: CYANOCOBALAMIN (B-12) 500 MCG TABLET PO SCH ×2 (08:37→20:01)
[2023-03-15] MEDS: BENZTROPINE MESYLATE 0.5 MG TAB PO SCH ×2 (08:37→20:03)
[2023-03-15] MEDS: THIAMINE HCL 100 MG TAB PO SCH ×2 (08:38→20:01)
[2023-03-15] MEDS: INSULIN ASPART PER UNIT CHARGE SC SCH ×4 (09:18→21:35)
[2023-03-15] MEDS: RIVAROXABAN 20 MG TAB PO SCH (09:55)
--- NOTE | 2023-03-15 10:19 | Gastrointestinal Consultation ---
Date of Consultation March 15, 2023 Assessment & Plan (1) Intractable nausea and vomiting: (2) Chronic diarrhea: Plan 67 y/o female with chronic intermittent n/v/d, admitted for the same. W/u generally unremarkable. She is feeling better today. Asking to eat. No further diarrhea. Has OP appt pending for chronic issues. - Full liquid diet today as tolerated - Monitor and document stool output; if she has further diarrhea would send for stool cx - If she has neg infectious w/u can use Questran as she takes this as OP for chronic diarrhea - Would recommend OP w/u for chronic issues as scheduled - consider GES to eval for gastroparesis. It's possible her many psych medications can be contributing to her symptoms and her diarrhea could be bile acid diarrhea vs overflow as she said she gets constipated at times. - Can tx nausea w/ scheduled antiemetics (avoid QT prolonging agents) Thank you for allowing us to participate in the care of this patient. Please call with any acute changes, questions or concerns. Please see addendum below with additional recommendation from my supervising physician. I have personally seen and examined the patient with Li Quintanilla PA-C. Her note reflects my exam and findings. I agree with her impression and plan. Chronic GI complaints. Out patient follow up. David Hay M.D. History of Present Illness Reason for Consultation: recurrent nausea vomiting Requesting Physician: Dr. Perdomo Attending Physician: Mynor Garcia MD History of Present Illness This is a 67 y/o female with PMHx T2DM, schizoaffective disorder, IBS, heavy tobacco use, COPD, GERD, h/o PE who presents to the hospital with reports of ongoing nausea, vomiting, & diarrhea. She reports that this has been an intermittent, ongoing problem for many years. She has had many admissions for the same. Upon arrival had low mag (chronic intermittent issue), WBC of 12.7, otherwise labs unremarkable. CTAP w/ fluid-filled nondilated loops of large or small bowel seen throughout the abdomen. This favors a gastroenteritis/diarrheal illness. Pt states she came to the hospital because she was vomiting. Currently states she is feeling better. Is tolerating clears; wants to eat more. Has not had diarrhea today or yesterday. States her symptoms occur off and on but she is not able to specify any pattern. Doesn't vomit everyday but perhaps a few times a week. Can vomit up to 3 x a day when she does have an episode. Sometimes vomiting is triggered by eating though not exclusively. No obvious food triggers. Has chronic intermittent nausea. Has diarrhea off and on; can't tell me how often though. Sometimes she has constipation and doesn't move her bowels for several days but she can't tell me how often this occurs. She states she used to be 300 lb and has lost weight; would like to lose more. She smokes constantly throughout the day; states she always has a cigarette in her mouth. Denies ETOH or marijuana use today. Denies NSAID use but she does use Excedrin (though can't say how often) for various aches/pains. Never had gastric emptying study. Has GERD that is controlled on daily PPI. Has chronic intermittent SOB and cough from smoking. Denies hematemesis, melena, hematochezia, dysphagia, odynophagia, abd pain, cramping, excessive bloating, gas, hematuria, CP. She has had EGD/colonoscopy in 2020 - EGD indicated gastritis & gastric polyps. Colonoscopy indicated polyps (hyperplastic, TA and TVA), diverticulosis, & internal hemorrhoids. Random biopsies of the colon were negative. She has a pending GI appt next month for work-up of the same. She is s/p cholecystectomy and maintained on OP Questran. EGD 2020: - Normal esophagus. - Multiple gastric polyps. Biopsied. - Gastritis. Biopsied. - Normal examined duodenum. Colonoscopy 2020: - Five 5 to 15 mm polyps in the rectum and in the sigmoid colon, removed with a hot snare. Resected and retrieved. - Diverticulosis in the sigmoid colon. - Non-bleeding internal hemorrhoids. - Several random biopsies were obtained in the entire colon. - Fluid aspiration was performed. A. Stomach, antrum, biopsy: - Gastric mucosa with mild chronic inflammation and reactive changes - Negative for intestinal metaplasia, dysplasia and malignancy - Negative for Helicobacter pylori organisms by morphology B. Stomach, polypectomy: - Hyperplastic polyp - Negative for dysplasia and malignancy C. Colon, random, biopsy: - Benign colonic mucosa with mild architectural disarray - Negative for acute and chronic colitis - Negative for microscopic colitis - Negative for dysplasia and malignancy D. Colon, sigmoid polyps, polypectomy: - Tubulovillous adenomas, multiple fragments - Sessile serrated adenoma - Negative for high grade dysplasia E. Rectum, polyps, polypectomy: - Tubular adenoma, one fragment - Hyperplastic polyps, two fragments - Negative for high grade dysplasia Allergies Allergy/AdvReac Type Severity Reaction Status Date / Time bee venom protein (honey bee) Allergy Intermediate unk Unverified 02/11/23 11:18 egg AdvReac Severe Vomiting Verified 02/11/23 11:18 Penicillins AdvReac Severe VOMITING/IT Verified 02/11/23 11:18 DAVON Home Medications Medication Instructions Recorded Confirmed Type buspirone 15 mg tablet 15 mg PO TID 10/25/20 03/14/23 History hfizwj-nzgnzjpi-lfdhaar 1 cap PO TID 10/25/20 03/14/23 History 12,000-38,000-60,000 unit capsule,delayed rel (Creon) rivaroxaban 20 mg tablet (Xarelto) 20 mg PO DAILY 10/25/20 03/14/23 History escitalopram oxalate 20 mg tablet 20 mg PO QAM 03/18/21 03/14/23 History (Lexapro) ropinirole 0.5 mg tablet 0.5 mg PO HS 03/18/21 03/14/23 History divalproex 500 mg tablet,extended 1,500 mg PO HS 06/03/21 03/14/23 History release 24 hr (Depakote ER) ferrous sulfate 325 mg (65 mg 325 mg PO Q OTHER DAY 06/03/21 03/14/23 History iron) tablet (Iron (ferrous sulfate)) cyanocobalamin (vitamin B-12) 1,000 mcg PO BID 08/05/21 03/14/23 History 1,000 mcg tablet (Vitamin B-12) thiamine HCl (vitamin B1) 100 mg 100 mg PO BID 10/11/21 03/14/23 History tablet (Vitamin B-1) benztropine 0.5 mg tablet 0.5 mg PO BID 07/25/22 03/14/23 History metformin 500 mg tablet 500 mg PO BID 07/25/22 03/14/23 History quetiapine 400 mg tablet 400 mg PO HS 07/25/22 03/14/23 History clonazepam 1 mg tablet 1 mg PO TID PRN Anxiety 01/13/23 03/14/23 History gabapentin 100 mg capsule 100 mg PO BID 01/13/23 03/14/23 History loratadine 10 mg tablet (Claritin) 10 mg PO DAILY 01/13/23 03/14/23 History ondansetron 4 mg disintegrating 4 mg PO Q4H PRN nausea and 01/20/23 03/14/23 Rx tablet vomiting 0 days #10 tabs famotidine 20 mg tablet 20 mg PO BID 30 days #60 tabs 02/14/23 03/14/23 Rx gabapentin 100 mg capsule 200 mg PO HS 03/14/23 03/14/23 History pantoprazole 40 mg tablet,delayed 40 mg PO DAILY 03/14/23 03/14/23 History release (Protonix) Patient History Medical History Acute hyponatremia Anemia Anxiety and depression Arthritis Aspiration pneumonia Chronic diarrhea Diabetes Diarrhea Encounter for pre-operative examination Folate deficiency GERD (gastroesophageal reflux disease) History of pulmonary embolism Hyperparathyroidism Hypomagnesemia Hyponatremia Hypothyroid Hypoxia Iron deficiency anemia Irritable bowel syndrome Nausea & vomiting Nausea and vomiting Pulmonary embolism Rectal bleeding Restless leg Schizoaffective disorder Smoking Vomiting and diarrhea Weakness Weakness Surgical History History of section x2 Family History Denies family history of Inflammatory bowel disease Social History Smoking Status: Current every day smoker Tobacco Type: Cigarettes Cigarettes Per Day: unknown; Second Hand Exposure: Yes; Do You Dip or Chew Tobacco: No; Hx Alcohol Use: No Hx Substance Use: No Preferred Language: Chinese Communication Ability: Effective Communication Ability Comment: can read and write just states she can't spell very well Accounting Director Required: No Beliefs That Will Affect Care: None marital status: Current Living Situation: Family Current Living Situation Comment: Lives with daughter How many Children do You have: 2 Other Information That Helps Us Care for You: No Feels Safe at Home: Yes Safety Concerns: Feels Safe At This Time Assistive Devices: Walker and Wheelchair Review of Systems Review of Systems: All systems reviewed & are unremarkable except as noted in HPI & below Physical Exam Constitutional: well developed, well nourished and comfortable; no acute distress Eyes: Sclera anicteric, no conjunctival injection ENMT: moist mucous membranes, no pallor Neck: trachea midline supple Respiratory: normal respiratory effort, lungs clear to auscultation Cardiovascular: RRR, no murmur, no edema Gastrointestinal (Abdomen): normal bowel sounds, soft, nontender, no hepatosplenomegaly Inspection/Auscultation: abdomen not distended Skin: no rashes, warm and dry Neurologic: alert and oriented x 3, no obvious focal neuro deficit Psychiatric: normal mood and affect Results & Data Vital Signs (Past 12 Hours) Vital Signs Temp Pulse Resp BP Pulse Ox O2 Del Method 03/15/23 07:28 36.4 C L 60 18 103/70 97 Room Air Laboratory Results 03/15/23 03/15/23 03/15/23 Range/Units 08:07 05:55 05:55 WBC 7.04 (4.8-10.8) K/ul RBC 4.10 L (4.20-5.40) M/uL Hgb 13.4 (12.0-16.0) g/dl Hct 38.9 (37.0-47.0) % MCV 94.9 (80.0-100.0) fL MCH 32.7 (25.0-34.0) pg MCHC 34.4 (32.0-36.0) g/dL RDW Std Deviation 43.2 (36.4-46.3) fL RDW Coeff of [place] 12.4 (11.5-14.5) % Plt Count 148 (130-400) K/uL MPV 10.2 (9.4-12.4) fL Immature Gran % (Auto) 0.4 % Neut % (Auto) 40.1 % Lymph % (Auto) 48.2 % Mcdonald % (Auto) 5.4 % Eos % (Auto) 5.3 % Baso % (Auto) 0.6 % Neut # (Auto) 2.83 (1.40-6.50) K/uL Lymph # (Auto) 3.39 (1.2-3.4) K/uL Mcdonald # (Auto) 0.38 (0.11-0.59) K/uL Eos # (Auto) 0.37 (0-0.50) K/uL Baso # (Auto) 0.04 (0-0.2) K/uL Immature Gran # (Auto) 0.03 (0.01-0.20) K/uL Sodium 142 (136-145) mmol/L Potassium 3.8 (3.5-5.1) mmol/L Chloride 110 H (98-107) mmol/L Carbon Dioxide 26 (21-32) mmol/L Anion Gap 6 (3-11) BUN 5 L (6-23) mg/dl Creatinine 0.64 (0.6-1.2) mg/dl Est Cr Clr Drug Dosing 96.1 ml/min Est GFR ( Amer) 108.5 ml/min Est GFR (Non-Af Amer) 93.6 ml/min BUN/Creatinine Ratio 7.8 L (10-20) Glucose 77 (70-99(Fasting)) mg/dl POC Glucose 82 (70-99) mg/dl Calcium 8.0 L (8.6-10.3) mg/dl Magnesium 1.9 (1.7-2.4) mg/dl Urine Color Urine Appearance (Clear) Urine pH (4.5-7.5) Ur Specific [place] (1.000-1.030) Urine Protein (Negative) Urine Glucose (UA) (Negative) Urine Ketones (Negative) Urine Blood (Negative) Urine Nitrite (Negative) Urine Bilirubin (Negative) Urine Urobilinogen (Negative) Ur Leukocyte Esterase (Negative) Valproic Acid (50-100) mcg/ml 03/14/23 03/14/23 03/14/23 Range/Units 21:16 18:06 17:49 WBC (4.8-10.8) K/ul RBC (4.20-5.40) M/uL Hgb (12.0-16.0) g/dl Hct (37.0-47.0) % MCV (80.0-100.0) fL MCH (25.0-34.0) pg MCHC (32.0-36.0) g/dL RDW Std Deviation (36.4-46.3) fL RDW Coeff of [place] (11.5-14.5) % Plt Count (130-400) K/uL MPV (9.4-12.4) fL Immature Gran % (Auto) % Neut % (Auto) % Lymph % (Auto) % Mcdonald % (Auto) % Eos % (Auto) % Baso % (Auto) % Neut # (Auto) (1.40-6.50) K/uL Lymph # (Auto) (1.2-3.4) K/uL Mcdonald # (Auto) (0.11-0.59) K/uL Eos # (Auto) (0-0.50) K/uL Baso # (Auto) (0-0.2) K/uL Immature Gran # (Auto) (0.01-0.20) K/uL Sodium (136-145) mmol/L Potassium (3.5-5.1) mmol/L Chloride (98-107) mmol/L Carbon Dioxide (21-32) mmol/L Anion Gap (3-11) BUN (6-23) mg/dl Creatinine (0.6-1.2) mg/dl Est Cr Clr Drug Dosing ml/min Est GFR ( Amer) ml/min Est GFR (Non-Af Amer) ml/min BUN/Creatinine Ratio (10-20) Glucose (70-99(Fasting)) mg/dl POC Glucose 93 93 (70-99) mg/dl Calcium (8.6-10.3) mg/dl Magnesium (1.7-2.4) mg/dl Urine Color Yellow Urine Appearance Clear (Clear) Urine pH 7.5 (4.5-7.5) Ur Specific [place] 1.021 (1.000-1.030) Urine Protein Negative (Negative) Urine Glucose (UA) Negative (Negative) Urine Ketones Trace H (Negative) Urine Blood Negative (Negative) Urine Nitrite Negative (Negative) Urine Bilirubin Negative (Negative) Urine Urobilinogen Negative (Negative) Ur Leukocyte Esterase Negative (Negative) Valproic Acid (50-100) mcg/ml 03/14/23 Range/Units 08:05 WBC (4.8-10.8) K/ul RBC (4.20-5.40) M/uL Hgb (12.0-16.0) g/dl Hct (37.0-47.0) % MCV (80.0-100.0) fL MCH (25.0-34.0) pg MCHC (32.0-36.0) g/dL RDW Std Deviation (36.4-46.3) fL RDW Coeff of [place] (11.5-14.5) % Plt Count (130-400) K/uL MPV (9.4-12.4) fL Immature Gran % (Auto) % Neut % (Auto) % Lymph % (Auto) % Mcdonald % (Auto) % Eos % (Auto) % Baso % (Auto) % Neut # (Auto) (1.40-6.50) K/uL Lymph # (Auto) (1.2-3.4) K/uL Mcdonald # (Auto) (0.11-0.59) K/uL Eos # (Auto) (0-0.50) K/uL Baso # (Auto) (0-0.2) K/uL Immature Gran # (Auto) (0.01-0.20) K/uL Sodium (136-145) mmol/L Potassium (3.5-5.1) mmol/L Chloride (98-107) mmol/L Carbon Dioxide (21-32) mmol/L Anion Gap (3-11) BUN (6-23) mg/dl Creatinine (0.6-1.2) mg/dl Est Cr Clr Drug Dosing ml/min Est GFR ( Amer) ml/min Est GFR (Non-Af Amer) ml/min BUN/Creatinine Ratio (10-20) Glucose (70-99(Fasting)) mg/dl POC Glucose (70-99) mg/dl Calcium (8.6-10.3) mg/dl Magnesium (1.7-2.4) mg/dl Urine Color Urine Appearance (Clear) Urine pH (4.5-7.5) Ur Specific [place] (1.000-1.030) Urine Protein (Negative) Urine Glucose (UA) (Negative) Urine Ketones (Negative) Urine Blood (Negative) Urine Nitrite (Negative) Urine Bilirubin (Negative) Urine Urobilinogen (Negative) Ur Leukocyte Esterase (Negative) Valproic Acid 82 (50-100) mcg/ml Diagnostic Findings CTAP: FINDINGS: The lung bases are clear. No pneumoperitoneum. No pneumatosis. No acute fractures. The spleen, adrenal glands, pancreas, and kidneys are within normal limits. No hydronephrosis. The main portal vein is patent. Stable bile duct dilatation status post cholecystectomy. No hepatic masses. No retroperitoneal lymphadenopathy. No pelvic free fluid. The bladder is unremarkable. Prior hysterectomy. No bowel wall thickening or obstruction. Fluid-filled nondilated loops of large and small bowel seen throughout the abdomen. This is nonspecific but favors a gastroenteritis. Normal appendix. IMPRESSION: 1. No bowel wall thickening or obstruction. 2. Fluid-filled nondilated loops of large or small bowel seen throughout the abdomen. This favors a gastroenteritis/diarrheal illness. 3. Normal appendix. 4. Cholecystectomy.
--- NOTE | 2023-03-15 12:58 | Electrocardiogram Report ---
Test Reason : Blood Pressure : / mmHG Vent. Rate : 079 BPM Atrial Rate : 079 BPM P-R Int : 172 ms QRS Dur : 134 ms QT Int : 408 ms P-R-T Axes : 037 121 -13 degrees QTc Int : 467 ms Normal sinus rhythm Right bundle branch block T wave abnormality, consider inferolateral ischemia Abnormal ECG When compared with ECG of 11-FEB-2023 08:15, No significant change Confirmed by Jose Luis Billings ([id number] on 03/15/2023 12:58:17 PM Referred By: REFERRED SELF Confirmed By:Jose Luis Billings
--- NOTE | 2023-03-15 14:33 | Hospitalist Progress Note ---
Date of Service March 15, 2023 Assessment & Plan (1) Enteritis due to [place] virus: (2) Nausea vomiting and diarrhea: (3) Morbid obesity with BMI of 45.0-49.9, adult: (4) Weakness: (5) Generalized weakness: (6) Schizoaffective disorder: (7) Hyperglycemia: Plan Patient is a 67-year-old female with past medical history of type 2 diabetes mellitus, she is affective disorder, heavy tobacco use, GERD, presents to the hospital with nausea, vomiting and diarrhea. She is managed for following problems: Norovirus enteritis Presents with nausea, vomiting and diarrhea for several days. CT abdomen and pelvis personally reviewed; fluid-filled nondilated loops of large and small bowel seen throughout the abdomen consistent with diarrheal illness. Labs reviewed from today; no leukocytosis. Hemoglobin stable BUN/creatinine with normal limits. Potassium and magnesium within normal limits. Continue supportive care for now. Promethazine for nausea/vomiting. Advance diet as tolerated. Appreciate GIs input; recommended to use Questran as outpatient if infectious work-up is negative. Patient has follow-up scheduled with GI. Type 2 diabetes mellitus Hold home metformin. Continue on sliding scale for now. Schizoaffective disorder. Continue on BuSpar, Depakote, Lexapro and Seroquel. Also on clonazepam 1 mg 3 times daily as needed EKG reviewed; normal sinus rhythm with right bundle branch block. QTc 467 Hypothyroidism; Continue on Synthyroid History of PE; Continue on Xarelto. GERD; Continue on Protonix and Pepcid. CODE STATUS; full DVT prophylaxis; Xarelto Dispolives at home with her daughter; PT OT eval. Admission and Anticipated Discharge Date Admission Date: March 14, 2023 Subjective Patient seen and examined at bedside. She appears tired. She reports abdominal cramping. Reports that she is no longer feeling nauseous. Denies any diarrhea today. Review of Systems Review of Systems: All systems reviewed & are unremarkable except as noted in Subjective Physical Exam Physical Exam: Constitutional: Awake, alert orient x3; appears slightly tired. Respiratory: normal respiratory effort, lungs clear to auscultation, no wheeze, rales, rhonchi. Normal insp/exp effort, no accessory muscle use Cardiovascular: RRR, no murmur, no edema Vessels: no JVD or carotid bruit Chest: normal inspection of chest Abdomen: normal bowel sounds, soft, nontender, no hepatosplenomegaly Musculoskeletal: no cyanosis or clubbing, extremities motor strength 5/5 Skin: no rashes, warm and dry normal turgor Neurologic: PERRL, EOMI, accommodation nl, no face palsy, no dysarthria CN's II- XI intact bilaterally and moves all extremities Psychiatric: A+Ox3, euthymic affect Lymphatic: no cervical or axillary lymphadenopathy : deferred Results & Data Results & Data Vital Signs (Past 12 Hours) Vital Signs Temp Pulse Resp BP Pulse Ox O2 Del Method 03/15/23 07:28 36.4 C L 60 18 103/70 97 Room Air Laboratory Results Laboratory Results WBC 7.04 K/ul (4.8-10.8) 03/15/23 05:55 RBC 4.10 M/uL (4.20-5.40) L 03/15/23 05:55 Hgb 13.4 g/dl (12.0-16.0) 03/15/23 05:55 Hct 38.9 % (37.0-47.0) 03/15/23 05:55 MCV 94.9 fL (80.0-100.0) 03/15/23 05:55 MCH 32.7 pg (25.0-34.0) 03/15/23 05:55 MCHC 34.4 g/dL (32.0-36.0) 03/15/23 05:55 RDW Std Deviation 43.2 fL (36.4-46.3) 03/15/23 05:55 RDW Coeff of [place] 12.4 % (11.5-14.5) 03/15/23 05:55 Plt Count 148 K/uL (130-400) 03/15/23 05:55 MPV 10.2 fL (9.4-12.4) 03/15/23 05:55 Immature Gran % (Auto) 0.4 % 03/15/23 05:55 Neut % (Auto) 40.1 % 03/15/23 05:55 Lymph % (Auto) 48.2 % 03/15/23 05:55 [place] % (Auto) 5.4 % 03/15/23 05:55 Eos % (Auto) 5.3 % 03/15/23 05:55 Baso % (Auto) 0.6 % 03/15/23 05:55 Neut # (Auto) 2.83 K/uL (1.40-6.50) 03/15/23 05:55 Lymph # (Auto) 3.39 K/uL (1.2-3.4) 03/15/23 05:55 [place] # (Auto) 0.38 K/uL (0.11-0.59) 03/15/23 05:55 Eos # (Auto) 0.37 K/uL (0-0.50) 03/15/23 05:55 Baso # (Auto) 0.04 K/uL (0-0.2) 03/15/23 05:55 Immature Gran # (Auto) 0.03 K/uL (0.01-0.20) 03/15/23 05:55 Sodium 142 mmol/L (136-145) 03/15/23 05:55 Potassium 3.8 mmol/L (3.5-5.1) 03/15/23 05:55 Chloride 110 mmol/L (98-107) H 03/15/23 05:55 Carbon Dioxide 26 mmol/L (21-32) 03/15/23 05:55 Anion Gap 6 (3-11) 03/15/23 05:55 BUN 5 mg/dl (6-23) L 03/15/23 05:55 Creatinine 0.64 mg/dl (0.6-1.2) 03/15/23 05:55 Est Cr Clr Drug Dosing 96.1 ml/min 03/15/23 05:55 Est GFR ( Amer) 108.5 ml/min 03/15/23 05:55 Est GFR (Non-Af Amer) 93.6 ml/min 03/15/23 05:55 BUN/Creatinine Ratio 7.8 (10-20) L 03/15/23 05:55 Glucose 77 mg/dl (70-99(Fasting)) 03/15/23 05:55 POC Glucose 81 mg/dl (70-99) 03/15/23 12:07 Calcium 8.0 mg/dl (8.6-10.3) L 03/15/23 05:55 Phosphorus 3.4 mg/dl (2.5-4.9) 03/14/23 08:05 Magnesium 1.9 mg/dl (1.7-2.4) 03/15/23 05:55 Total Bilirubin 0.5 mg/dl (0.2-1.0) 03/14/23 08:05 AST 11 U/L (13-39) L 03/14/23 08:05 ALT 4 U/L (7-52) L 03/14/23 08:05 Alkaline Phosphatase 98 U/L (34-104) 03/14/23 08:05 Ammonia 49.0 umol/L (18-72) 03/14/23 08:18 Total Protein 6.0 gm/dl (6.0-8.3) 03/14/23 08:05 Albumin 3.2 gm/dl (3.4-5.0) L 03/14/23 08:05 Globulin 2.8 gm/dl (2.5-4.0) 03/14/23 08:05 Albumin/Globulin Ratio 1.1 (0.9-2) 03/14/23 08:05 Lipase 8 U/L (11-82) L 03/14/23 08:05 Urine Color Yellow 03/14/23 18:06 Urine Appearance Clear (Clear) 03/14/23 18:06 Urine pH 7.5 (4.5-7.5) 03/14/23 18:06 Ur Specific [place] 1.021 (1.000-1.030) 03/14/23 18:06 Urine Protein Negative (Negative) 03/14/23 18:06 Urine Glucose (UA) Negative (Negative) 03/14/23 18:06 Urine Ketones Trace (Negative) H 03/14/23 18:06 Urine Blood Negative (Negative) 03/14/23 18:06 Urine Nitrite Negative (Negative) 03/14/23 18:06 Urine Bilirubin Negative (Negative) 03/14/23 18:06 Urine Urobilinogen Negative (Negative) 03/14/23 18:06 Ur Leukocyte Esterase Negative (Negative) 03/14/23 18:06 Stl C. cayetanensis PCR Not Detected (NotDetected) 03/15/23 Unknown Stool Rotavirus A PCR Not Detected (NotDetected) 03/15/23 Unknown Stl Adenov F 40/41 PCR Not Detected (NotDetected) 03/15/23 Unknown Stool Astrovirus (PCR) Not Detected (NotDetected) 03/15/23 Unknown Stool Campylobacter PCR Not Detected (NotDetected) 03/15/23 Unknown Stl C. diff Tox B Gene Negative Cdiff Gene (Neg) 03/15/23 Unknown Stool Cryptosporidium PCR Not Detected (NotDetected) 03/15/23 Unknown Stl E.coli Shiga Tox PCR Not Detected (NotDetected) 03/15/23 Unknown Stl Enterotoxigenic E PCR Not Detected (NotDetected) 03/15/23 Unknown Stool EPEC (PCR) Not Detected (NotDetected) 03/15/23 Unknown Stool EAEC (PCR) Not Detected (NotDetected) 03/15/23 Unknown Stl E. histolytica PCR Not Detected (NotDetected) 03/15/23 Unknown Stool Giardia Lamblia PCR Not Detected (NotDetected) 03/15/23 Unknown Stool Salmonella PCR Not Detected (NotDetected) 03/15/23 Unknown Stool Sapovirus (PCR) Not Detected (NotDetected) 03/15/23 Unknown Stl P. shigelloides PCR Not Detected (NotDetected) 03/15/23 Unknown Stl Shigella/EIEC PCR Not Detected (NotDetected) 03/15/[address]enterocolitica PCR Not Detected (NotDetected) 03/15/23 Unknown Stool Vibrio (PCR) Not Detected (NotDetected) 03/15/23 Unknown Stl Vibrio cholerae PCR Not Detected (NotDetected) 03/15/23 Unknown Stl Norovirus GI/GII PCR DETECTED (NotDetected) A* 03/15/23 Unknown Valproic Acid 82 mcg/ml (50-100) 03/14/23 08:05 Adenovirus (PCR) Not Detected (NotDetected) 03/14/23 08:15 B. pertussis DNA (PCR) Not Detected (NotDetected) 03/14/23 08:15 B.parapertussis DNA PCR Not Detected (NotDetected) 03/14/23 08:15 C. pneumoniae DNA (PCR) Not Detected (NotDetected) 03/14/23 08:15 Coronavirus OC43 (PCR) Not Detected (NotDetected) 03/14/23 08:15 Coronavirus HKU1 (PCR) Not Detected (NotDetected) 03/14/23 08:15 Coronavirus 229E (PCR) Not Detected (NotDetected) 03/14/23 08:15 SARS-CoV-2 (PCR) Not Detected (NotDetected) 03/14/23 08:15 Coronavirus NL63 (PCR) Not Detected (NotDetected) 03/14/23 08:15 Human Metapneumovir PCR Not Detected (NotDetected) 03/14/23 08:15 Influenza Type A (PCR) Not Detected (NotDetected) 03/14/23 08:15 Influenza Type B (PCR) Not Detected (NotDetected) 03/14/23 08:15 M. pneumoniae (PCR) Not Detected (NotDetected) 03/14/23 08:15 Parainfluenza 1 (PCR) Not Detected (NotDetected) 03/14/23 08:15 Parainfluenza 2 (PCR) Not Detected (NotDetected) 03/14/23 08:15 Parainfluenza 3 (PCR) Not Detected (NotDetected) 03/14/23 08:15 Parainfluenza 4 (PCR) Not Detected (NotDetected) 03/14/23 08:15 RSV (PCR) Not Detected (NotDetected) 03/14/23 08:15 Entero/Rhino (PCR) Not Detected (NotDetected) 03/14/23 08:15 Impressions Abdomen/Pelvis CT 03/14/23 07:[address] WITH IV CONTRAST CT DOSE: 1465.27 mGy.cm HISTORY: Nausea. Vomiting. Diarrhea. TECHNIQUE: Multiaxial CT images of the abdomen and pelvis were performed following the use of intravenous contrast. A dose lowering technique was utilized adhering to the principles of ALARA. COMPARISON STUDY: Abdomen and pelvis CT 01/13/2023. FINDINGS: The lung bases are clear. No pneumoperitoneum. No pneumatosis. No acute fractures. The spleen, adrenal glands, pancreas, and kidneys are within normal limits. No hydronephrosis. The main portal vein is patent. Stable bile duct dilatation status post cholecystectomy. No hepatic masses. No retroperitoneal lymphadenopathy. No pelvic free fluid. The bladder is unremarkable. Prior hysterectomy. No bowel wall thickening or obstruction. Fluid-filled nondilated loops of large and small bowel seen throughout the abdomen. This is nonspecific but favors a gastroenteritis. Normal appendix. IMPRESSION: 1. No bowel wall thickening or obstruction. 2. Fluid-filled nondilated loops of large or small bowel seen throughout the abdomen. This favors a gastroenteritis/diarrheal illness. 3. Normal appendix. 4. Cholecystectomy. ACT 112: Negative or not required by law. Electronically signed by: Wilfredo Byers M.D. 03/14/2023 10:08 AM (6) Schizoaffective disorder Schizoaffective disorder type: depressive Qualified Code(s): F25.1 - Schizoaffective disorder, depressive type
[2023-03-15 14:45] LABS: Adenovirus F 40/41 PCR Not Detected (NotDetected); Astrovirus PCR Not Detected (NotDetected); Campylobacter PCR Not Detected (NotDetected); Cryptosporidium PCR Not Detected (NotDetected); Cyclospora cayetanensis PCR Not Detected (NotDetected); Entamoeba histolytica PCR Not Detected (NotDetected); Enteroaggregative E.coli(EAEC) Not Detected (NotDetected); Enteropathogenic E.coli (EPEC) Not Detected (NotDetected); Enterotoxigenic E.coli (ETEC) Not Detected (NotDetected); Giardia lamblia PCR Not Detected (NotDetected); Plesiomonas shigelloides PCR Not Detected (NotDetected); Rotavirus A PCR Not Detected (NotDetected); Salmonella PCR Not Detected (NotDetected); Sapovirus PCR Not Detected (NotDetected); Shiga-like Toxin E.coli (STEC) Not Detected (NotDetected); Shigella/Enteroinvasive E.coli Not Detected (NotDetected); Vibrio cholerae PCR Not Detected (NotDetected); Vibrio species PCR Not Detected (NotDetected); Yersinia enterocolitica PCR Not Detected (NotDetected)
[2023-03-15 14:51] LABS: Norovirus GI/GII PCR DETECTED (NotDetected)
[2023-03-15] MEDS: ACETAMINOPHEN 325 MG TAB PO PRN (19:40)
[2023-03-15] MEDS: DIVALPROEX EXTENDED RELEASE 500 MG TAB PO SCH (20:02)
[2023-03-15] MEDS: QUEtiapine FUMARATE 200 MG TAB PO SCH (20:03)
[2023-03-15] MEDS: rOPINIRole HCL 0.25 MG TABLET PO SCH (20:04)
[2023-03-15] MEDS ORDERED: CHOLESTYRAMINE LIGHT 4 GM PKT PO SCH (22:00)
[2023-03-15] MEDS: PROMETHAZINE HCL 6.25 MG in SODIUM CHLORIDE 0.9% 50 ML IV PRN (22:06)
[2023-03-16 07:26] LABS: BUN Creatinine Ratio 12.3 (10-20); Calcium 8.2 mg/dl (8.6-10.3); Creatinine Clr Calc Pharmacy 75.9 ml/min; Est GFR (African American) 88.3 ml/min; Est GFR (Non-African American) 76.2 ml/min; Potassium 4.1 mmol/L (3.5-5.1)
[2023-03-16] MEDS: INSULIN ASPART PER UNIT CHARGE SC SCH ×4 (08:41→20:41)
[2023-03-16] MEDS: PANCREAZE (LIPASE 10,500U) CAP PO SCH ×3 (08:42→20:46)
[2023-03-16] MEDS: GABAPENTIN 100 MG CAP PO SCH ×3 (08:43→20:43)
[2023-03-16] MEDS: FAMOTIDINE 20 MG TAB PO SCH ×2 (08:44→20:43)
[2023-03-16] MEDS: ESCITALOPRAM OXALATE 20 MG TAB PO SCH (08:44)
[2023-03-16] MEDS: RIVAROXABAN 20 MG TAB PO SCH (08:45)
[2023-03-16] MEDS: PANTOprazole 40 MG TAB PO SCH (08:46)
[2023-03-16] MEDS: LORATADINE 10 MG TAB PO SCH (08:46)
[2023-03-16] MEDS: THIAMINE HCL 100 MG TAB PO SCH ×2 (08:47→20:45)
[2023-03-16] MEDS: CYANOCOBALAMIN (B-12) 500 MCG TABLET PO SCH ×2 (08:48→20:45)
[2023-03-16] MEDS: busPIRone 15 MG TAB PO SCH ×3 (08:48→20:40)
[2023-03-16] MEDS: BENZTROPINE MESYLATE 0.5 MG TAB PO SCH ×2 (08:50→20:42)
--- NOTE | 2023-03-16 13:08 | Hospitalist Progress Note ---
Date of Service March 16, 2023 Assessment & Plan (1) Enteritis due to [place] virus: (2) Nausea vomiting and diarrhea: (3) Morbid obesity with BMI of 45.0-49.9, adult: (4) Weakness: (5) Generalized weakness: (6) Schizoaffective disorder: (7) Hyperglycemia: Plan Patient is a 67-year-old female with past medical history of type 2 diabetes mellitus, she is affective disorder, heavy tobacco use, GERD, presents to the hospital with nausea, vomiting and diarrhea. She is managed for following problems: Norovirus enteritis Presents with nausea, vomiting and diarrhea for several days. CT abdomen and pelvis personally reviewed; fluid-filled nondilated loops of large and small bowel seen throughout the abdomen consistent with diarrheal illness. Labs reviewed from today; no leukocytosis. Hemoglobin stable BUN/creatinine with normal limits. Potassium and magnesium within normal limits. Continue supportive care for now. Promethazine for nausea/vomiting. Advance diet as tolerated. Appreciate GIs input; recommended to use Questran as outpatient if infectious work-up is negative. Patient has follow-up scheduled with GI. Stool panel + Norovirus Type 2 diabetes mellitus Hold home metformin. Continue on sliding scale for now. BSG stable 123 Schizoaffective disorder Continue on BuSpar, Depakote, Lexapro and Seroquel. Also on clonazepam 1 mg 3 times daily as needed EKG reviewed; normal sinus rhythm with right bundle branch block. QTc 467 Hypothyroidism Continue on Synthyroid History of PE Continue on Xarelto. GERD Continue on Protonix and Pepcid. CODE STATUS: full DVT prophylaxis: Xarelto Dispolives at home with her daughter; PT OT eval, per PT/OT can d/c to home when medically stable, pt requesting additional day as she doesn't quite feel ready for discharge A total of 45 minutes was spent with greater than 50% of that time personally viewing all current laboratory work and diagnostic imaging studies obtained in the ED. Additionally, I was able to view the patients past medication reconciliation and history with direct visualization in the patients chart. Included in the time above, a portion of that time was spent assessing the patient while discussing and collaborating with specialists, if necessary, and making medical decision making on treatment plan. All of the above was collaborated with Dr. Garcia. Please see addendum for further details. Admission and Anticipated Discharge Date Admission Date: March 14, 2023 Supervising Physician Co-Signing Physician Notes Patient seen and examined independently. Discussed with above provider. Patient lying in the bed comfortably; denies any diarrhea today. Reports some episode of nausea yesterday. Continue supportive care. PT and OT note appreciated; recommend home with home health Possible DC in a.m. if patient does not have any episode of nausea or vomiting. Subjective Patient was seen and examined in room 316. Follow-up norovirus. She tolerated breakfast. Last evening she did have significant nausea but currently denies any nausea. She denies any fever, chills, sweats, lightheadedness, dizziness, chest pain, shortness of breath or abdominal pain. She continues to have loose stool. She does not feel quite ready to be discharged home and is requesting another day. Review of Systems Review of Systems: All systems reviewed & are unremarkable except as noted in HPI & below Physical Exam Physical Exam: Gen: Elderly, F, WD/WN, NAD, A&O x3 HEENT: Normocephalic, atraumatic, conjunctivae moist, sclerae anicteric, mucous membranes moist, dry membranes. Lung: Clear to Auscultation bilaterally, no wheezes/rales/rhonchi Heart: Regular rate, regular rhythm, no murmurs, rubs, or gallops Abdomen: Soft, NT, ND +BS x 4 Extremities: No edema Skin: Warm, no rash, negative turgor. Results & Data Results & Data Vital Signs (Past 12 Hours) Vital Signs Temp Pulse Resp BP Pulse Ox O2 Del Method 03/16/23 07:05 36.7 C 69 18 125/80 96 Room Air Laboratory Results [facility] 03/16/23 06:31 Sodium 141 Potassium 4.1 Chloride 110 H Carbon Dioxide 27 BUN 10 Creatinine 0.81 Glucose 101 H Calcium 8.2 L Medications Administered Current Inpatient Medications Acetaminophen (Acetaminophen 325 Mg Tab) 650 mg PO Q4H PRN PRN Reason: pain/fever Stop: 04/13/23 13:41 Last Admin: 03/15/23 19:40 Dose: 650 mg Lipase/Protease/Amylase (Pancreaze (Lipase 10,500u) Cap) 1 cap PO TID MARY Stop: 04/13/23 15:59 Last Admin: 03/16/23 08:42 Dose: 1 cap Benztropine Mesylate (Benztropine Mesylate 0.5 Mg Tab) 0.5 mg PO BID MARY Stop: 04/13/23 20:59 Last Admin: 03/16/23 08:50 Dose: 0.5 mg Buspirone HCl (Buspirone 15 Mg Tab) 15 mg PO TID MARY Stop: 04/13/23 13:59 Last Admin: 03/16/23 08:48 Dose: 15 mg Clonazepam (Clonazepam 1 Mg Tab) 1 mg PO TID PRN PRN Reason: Anxiety Stop: 04/13/23 13:41 Cyanocobalamin (Cyanocobalamin (B-12) 500 Mcg Tablet) 1,000 mcg PO BID MARY Stop: 04/13/23 20:59 Last Admin: 03/16/23 08:48 Dose: 1,000 mcg Dextrose (Dextrose 50% 50 Ml Syringe) 25 - 50 ml IV UD PRN; Protocol PRN Reason: Hypoglycemia Protocol Stop: 04/13/23 13:41 Divalproex Sodium (Divalproex Extended Release 500 Mg Tab) 1,500 mg PO HS [facility] Stop: 04/13/23 20:59 Last Admin: 03/15/23 20:02 Dose: 1,500 mg Escitalopram Oxalate (Escitalopram Oxalate 20 Mg Tab) 20 mg PO QAM MARY Stop: 04/14/23 08:59 Last Admin: 03/16/23 08:44 Dose: 20 mg Famotidine (Famotidine 20 Mg Tab) 20 mg PO BID MARY Stop: 04/13/23 20:59 Last Admin: 03/16/23 08:44 Dose: 20 mg Ferrous Sulfate (Ferrous Sulfate 325 Mg Tab) 325 mg PO Q48H MARY Stop: 04/13/23 13:59 Last Admin: 03/14/23 15:16 Dose: 325 mg Gabapentin (Gabapentin 100 Mg Cap) 100 mg PO BID@0900,1200 MARY Stop: 04/14/23 08:59 Last Admin: 03/16/23 11:09 Dose: 100 mg Gabapentin (Gabapentin 100 Mg Cap) 200 mg PO HS [facility] Stop: 04/13/23 20:59 Last Admin: 03/15/23 20:00 Dose: 200 mg Glucagon (Glucagon For Inj 1 Mg Vial) 1 mg SQ UD PRN; Protocol PRN Reason: Hypoglycemia Protocol Stop: 04/13/23 13:41 Glucose (Glucose 10 Tab/Tube) 4 - 8 tab PO UD PRN; Protocol PRN Reason: Hypoglycemia Treatment Stop: 04/13/23 13:41 Glucose (Glucose 40% Gel 15 Gm Tube) 15 - 30 gm PO UD PRN; Protocol PRN Reason: Hypoglycemia Protocol Stop: 04/13/23 13:41 Promethazine HCl 6.25 mg/ (Sodium Chloride) 50.25 mls @ 201 mls/hr IV Q6H PRN PRN Reason: Nausea And Vomiting Stop: 04/13/23 13:41 Last Infusion: 03/15/23 22:28 Dose: Infused Insulin Aspart (Insulin Aspart Per Unit Charge) 0 units SC ACHS [facility] Stop: 04/13/23 16:29 Last Admin: 03/16/23 12:48 Dose: Not Given Loratadine (Loratadine 10 Mg Tab) 10 mg PO DAILY [facility] Stop: 04/14/23 08:59 Last Admin: 03/16/23 08:46 Dose: 10 mg Miscellaneous (Carbohydrates For Hypoglycemia ) 15 - 30 gm PO UD PRN PRN Reason: Hypoglycemia Protocol Stop: 04/13/23 13:41 Nystatin (Nystatin Powder 15gm Btl) 1 appln EXT BID PRN PRN Reason: Affected Skin Folds Stop: 04/13/23 20:17 Last Admin: 03/15/23 00:39 Dose: 1 appln Pantoprazole Sodium (Pantoprazole 40 Mg Tab) 40 mg PO DAILY [facility] Stop: 04/14/23 08:59 Last Admin: 03/16/23 08:46 Dose: 40 mg Quetiapine Fumarate (Quetiapine Fumarate 200 Mg Tab) 400 mg PO HS MARY Stop: 04/13/23 20:59 Last Admin: 03/15/23 20:03 Dose: 400 mg Rivaroxaban (Rivaroxaban 20 Mg Tab) 20 mg PO DAILY [facility] Stop: 04/13/23 13:59 Last Admin: 03/16/23 08:45 Dose: 20 mg Ropinirole HCl (Ropinirole Hcl 0.25 Mg Tablet) 0.5 mg PO HS [facility] Stop: 04/13/23 20:59 Last Admin: 03/15/23 20:04 Dose: 0.5 mg Thiamine HCl (Thiamine Hcl 100 Mg Tab) 100 mg PO BID MARY Stop: 04/13/23 20:59 Last Admin: 03/16/23 08:47 Dose: 100 mg (6) Schizoaffective disorder Schizoaffective disorder type: depressive Qualified Code(s): F25.1 - Schizoaffective disorder, depressive type
[2023-03-16] MEDS: FERROUS SULFATE 325 MG TAB PO SCH (14:14)
[2023-03-16] MEDS: QUEtiapine FUMARATE 200 MG TAB PO SCH (20:40)
[2023-03-16] MEDS: DIVALPROEX EXTENDED RELEASE 500 MG TAB PO SCH (20:42)
[2023-03-16] MEDS: rOPINIRole HCL 0.25 MG TABLET PO SCH (20:46)
[2023-03-17] MEDS: PANCREAZE (LIPASE 10,500U) CAP PO SCH (07:32)
[2023-03-17] MEDS: THIAMINE HCL 100 MG TAB PO SCH (07:32)
[2023-03-17] MEDS: ESCITALOPRAM OXALATE 20 MG TAB PO SCH (07:33)
[2023-03-17] MEDS: RIVAROXABAN 20 MG TAB PO SCH (07:33)
[2023-03-17] MEDS: PANTOprazole 40 MG TAB PO SCH (07:33)
[2023-03-17] MEDS: busPIRone 15 MG TAB PO SCH (07:33)
[2023-03-17] MEDS: GABAPENTIN 100 MG CAP PO SCH ×2 (07:33→12:29)
[2023-03-17] MEDS: LORATADINE 10 MG TAB PO SCH (07:33)
[2023-03-17] MEDS: FAMOTIDINE 20 MG TAB PO SCH (07:34)
[2023-03-17] MEDS: BENZTROPINE MESYLATE 0.5 MG TAB PO SCH (07:34)
[2023-03-17] MEDS: CYANOCOBALAMIN (B-12) 500 MCG TABLET PO SCH (07:34)
[2023-03-17 07:59] LABS: BUN Creatinine Ratio 12.2 (10-20); Calcium 8.7 mg/dl (8.6-10.3); Creatinine Clr Calc Pharmacy 83.1 ml/min; Est GFR (African American) 98.5 ml/min; Magnesium 1.7 mg/dl (1.7-2.4)
[2023-03-17] MEDS: INSULIN ASPART PER UNIT CHARGE SC SCH ×2 (08:30→12:28)
--- NOTE | 2023-03-17 10:13 | Discharge Summary ---
Discharge Summary Date of Service March 17, 2023 Notes For Next Care Provider Patient tested positive for norovirus. Admitted to hospital for symptom control. Pt has chronic intermittent n/v/d. She is already scheduled to see GI. Medication Changes From Visit Stop Zofran Started Phenergan 12.5mg every 8hrs prn for nausea Admission HPI Per Admitting Provider 67-year-old female with multiple comorbidities came with complaints of recurrent episodes of nausea and vomiting diarrhea for the past few days. Patient has had similar episodes in the past and has been scheduled to see [facility] gastroenterology. She denies abdominal pain. Has some abdominal discomfort. No blood in stools She ambulates with the help of a walker. No chest pain or shortness of breath. No fevers. She was evaluated in the ER and had labs done, noted to have mild leukocytosis. She has been admitted multiple times over the past few months. . Admission Exam Per Admitting Provider General : Patient is morbidly obese, Neuro: AAOx4, PERRla HEENT: head normocephalic, moist mucus membranes CV: S1/S2, no murmurs ,no crackles Resp: Lungs CTA in all baker. no crackles GI: Abdomen S/NT/ND, Ax4 bowel sounds, (-) CVA tenderness . Mild tenderness + in the left upper quadrant Musculoskeletal: 5/5 B/L UE strength, 5/5 B/L LE strength. No gait disturbance Skin: (-) rashes , (-) erythema. Psych: normal affect Principal Dx & Hospital Course #1 = Principal Diagnosis (1) Enteritis due to [place] virus: (2) Nausea vomiting and diarrhea: (3) Morbid obesity with BMI of 45.0-49.9, adult: (4) Weakness: (5) Generalized weakness: (6) Schizoaffective disorder: (7) Hyperglycemia: Plan Patient is a 67-year-old female with past medical history of type 2 diabetes m ellitus, she is affective disorder, heavy tobacco use, GERD, presents to the hospital with nausea, vomiting and diarrhea. She has chronic intermittent n/v/d as outpatient and is already scheduled to see GI. Her stool tested positive for norovirus. She was treated with symptom control, IVF, bowel rest and antiemetics. Her symptoms gradually resolved and on day of discharge she was tolerating regular diet, denies abdominal pain and nausea. Continues to have intermittent loose stool. She will follow up with GI as outpatient. GI did recommend trial of Questran if continues to have loose stool. Her chronic medical conditions remained stable throughout hospital stay, her diabetes was managed with insulin and she remained on xarelto for her hx of PE. Her vital signs remained stable and she will be discharged to home with close outpatient follow up. Discharge Exam Gen: Elderly, F, WD/WN, NAD, A&O x3 HEENT: Normocephalic, atraumatic, conjunctivae moist, sclerae anicteric, mucous membranes moist, dry membranes. Lung: Clear to Auscultation bilaterally, no wheezes/rales/rhonchi Heart: Regular rate, regular rhythm, no murmurs, rubs, or gallops Abdomen: Soft, NT, ND +BS x 4 obese abd Extremities: No edema Skin: Warm, no rash, negative turgor. Updated Medication List Medication Instructions Recorded Confirmed Type buspirone 15 mg tablet 15 mg PO TID 10/25/20 03/14/23 History wvvkhf-oqoozcqv-mzvumum 1 cap PO TID 10/25/20 03/14/23 History 12,000-38,000-60,000 unit capsule,delayed rel (Creon) rivaroxaban 20 mg tablet (Xarelto) 20 mg PO DAILY 10/25/20 03/14/23 History escitalopram oxalate 20 mg tablet 20 mg PO QAM 03/18/21 03/14/23 History (Lexapro) ropinirole 0.5 mg tablet 0.5 mg PO HS 03/18/21 03/14/23 History divalproex 500 mg tablet,extended 1,500 mg PO HS 06/03/21 03/14/23 History release 24 hr (Depakote ER) ferrous sulfate 325 mg (65 mg 325 mg PO Q OTHER DAY 06/03/21 03/14/23 History iron) tablet (Iron (ferrous sulfate)) cyanocobalamin (vitamin B-12) 1,000 mcg PO BID 08/05/21 03/14/23 History 1,000 mcg tablet (Vitamin B-12) thiamine HCl (vitamin B1) 100 mg 100 mg PO BID 10/11/21 03/14/23 History tablet (Vitamin B-1) benztropine 0.5 mg tablet 0.5 mg PO BID 07/25/22 03/14/23 History metformin 500 mg tablet 500 mg PO BID 07/25/22 03/14/23 History quetiapine 400 mg tablet 400 mg PO HS 07/25/22 03/14/23 History clonazepam 1 mg tablet 1 mg PO TID PRN Anxiety 01/13/23 03/14/23 History gabapentin 100 mg capsule 100 mg PO BID 01/13/23 03/14/23 History loratadine 10 mg tablet (Claritin) 10 mg PO DAILY 01/13/23 03/14/23 History famotidine 20 mg tablet 20 mg PO BID 30 days #60 tabs 02/14/23 03/14/23 Rx gabapentin 100 mg capsule 200 mg PO HS 03/14/23 03/14/23 History pantoprazole 40 mg tablet,delayed 40 mg PO DAILY 03/14/23 03/14/23 History release (Protonix) promethazine 12.5 mg tablet 12.5 mg PO TID PRN nausea #14 tabs 03/17/23 Rx Hospital Stay Data Consultations 03/14/23 11:46 ED Decision to Admit Stat 03/15/23 08:00 Consult Gastroenterology Routine Diagnostic Imagining Performed Abdomen/Pelvis CT 03/14/23 07:[address] WITH IV CONTRAST CT DOSE: 1465.27 mGy.cm HISTORY: Nausea. Vomiting. Diarrhea. TECHNIQUE: Multiaxial CT images of the abdomen and pelvis were performed following the use of intravenous contrast. A dose lowering technique was utilized adhering to the principles of ALARA. COMPARISON STUDY: Abdomen and pelvis CT 01/13/2023. FINDINGS: The lung bases are clear. No pneumoperitoneum. No pneumatosis. No acute fractures. The spleen, adrenal glands, pancreas, and kidneys are within normal limits. No hydronephrosis. The main portal vein is patent. Stable bile duct dilatation status post cholecystectomy. No hepatic masses. No retroperitoneal lymphadenopathy. No pelvic free fluid. The bladder is unremarkable. Prior hysterectomy. No bowel wall thickening or obstruction. Fluid-filled nondilated loops of large and small bowel seen throughout the abdomen. This is nonspecific but favors a gastroenteritis. Normal appendix. IMPRESSION: 1. No bowel wall thickening or obstruction. 2. Fluid-filled nondilated loops of large or small bowel seen throughout the abdomen. This favors a gastroenteritis/diarrheal illness. 3. Normal appendix. 4. Cholecystectomy. ACT 112: Negative or not required by law. Electronically signed by: Wilfredo Byers M.D. 03/14/2023 10:08 AM Pending Results Patient Have Any Pending Studies at Discharge: No Discharge Instructions Given to Patient (Per Discharging Provider) MEDICATION CHANGES: New Medications: Phenergan 12.5mg up to three times a day as needed for nausea Stop: Zofran Continue all other home medications SUMMARY OF TEST RESULTS: You were admitted to hospital for diarrheal illness. Your stool tested positive for norovirus, which is a contagious viral illness, you are no longer contagious. PENDING TEST RESULTS: None RECOMMENDATIONS FOR FOLLOW-UP: Please follow up with Primary care provider and gastroenterology as scheduled. Continue all home medications. You have been prescribed a medication for nausea to take as needed. Continue eating diet as tolerated. Recommend at least 2 L of water intake daily OTHER INSTRUCTIONS: Seek medical attention if you have: * temperature above 101 * chest pain or trouble breathing * abdominal pain, nausea, vomiting * diarrhea, dark stools or bloody stools * any unanswered questions or concerns Call 911 if symptoms are severe. Please take good care of yourself. It has been a pleasure taking care of you. Please take care of yourself. If you have any questions regarding your recent hospitalization please contact [facility] and request Monique Mariellaist @ [phone]. Total Time Total Time Spent Total Time Spent (In Minutes): 45 minutes Supervising Physician Co-Signing Physician Notes Patient seen and examined independently. Discussed with above provider. Patient reports that her nausea and vomiting has resolved. Also reports that she is having normal bowel movements. will follow-up with PCP and GI as outpatient.
== END 2023-03-17 14:00 | disposition home or self-care (01) | DRG 392 ==
LOC: ED 07:45 → 3E 07:45 → SUATTDRO 11:51 → 3E 13:06

== ENCOUNTER 2023-06-14 09:21 | Inpatient (IN) ==
[2023-06-14 10:34] LABS: Basophils # (auto) 0.04 K/uL (0-0.2); Basophils % (auto) 0.5 %; Eosinophils # (auto) 0.15 K/uL (0-0.50); Hematocrit (blood only) 38.7 % (37.0-47.0); Hemoglobin 13.6 g/dl (12.0-16.0); Immature Granulocytes # (auto) 0.07 K/uL (0.01-0.20); Immature Granulocytes % (auto) 0.9 %; Lymphocytes # (auto) 2.93 K/uL (1.2-3.4); Lymphocytes % (auto) 39.1 %; Mean Corpuscular Hemoglobin 31.9 pg (25.0-34.0); Mean Corpuscular Hgb Conc 35.1 g/dL (32.0-36.0); Mean Corpuscular Volume 90.8 fL (80.0-100.0); Mean Platelet Volume 9.8 fL (9.4-12.4); Monocytes # (auto) 0.69 K/uL (0.11-0.59); Monocytes % (auto) 9.2 %; Neutrophils # (auto) 3.62 K/uL (1.40-6.50); Neutrophils % (auto) 48.3 %; Platelet Count 183 K/uL (130-400); Red Blood Count 4.26 M/uL (4.20-5.40)
[2023-06-14 10:37] LABS: Alanine Aminotransferase 3 U/L (7-52); Albumin Globulin Ratio 1.2 (0.9-2); Albumin Level 3.5 gm/dl (3.4-5.0); Alkaline Phosphatase 67 U/L (34-104); Anion Gap 6 (3-11); Aspartate Aminotransferase 8 U/L (13-39); BUN Creatinine Ratio 8.8 (10-20); Bilirubin,Total 0.3 mg/dl (0.2-1.0); Blood Urea Nitrogen 6 mg/dl (6-23); Calcium 9.2 mg/dl (8.6-10.3); Carbon Dioxide 26 mmol/L (21-32); Chloride 101 mmol/L (98-107); Creatinine Clr Calc Pharmacy 90.8 ml/min; Est GFR (African American) 106.4 ml/min; Est GFR (Non-African American) 91.8 ml/min; Glucose 98 mg/dl (70-99(Fasting)); Magnesium 1.6 mg/dl (1.7-2.4); Potassium 4.3 mmol/L (3.5-5.1); Sodium 133 mmol/L (136-145); Total Protein 6.5 gm/dl (6.0-8.3)
[2023-06-14 10:43] LABS: Troponin I High Sensitivity < 2.3 pg/ml (0-14)
--- NOTE | 2023-06-14 10:55 | Emergency Department Note ---
Impression & Plan Generalized weakness, Acute UTI, Abdominal pain, Hypercarbia, Somnolence ED Provider Note Provider: Domo Hopkins MD DATE OF SERVICE: 06/14/2023 CHIEF COMPLAINT: Urinary symptoms, weakness, blood in your HISTORY OF PRESENT ILLNESS: Patient is a 67-year-old female history of type 2 diabetes, schizoaffective sorter, tobacco use, GERD, pulmonary embolism on Xarelto, and IBS presenting the ambulance today from home with reports of generalized weakness developing overnight with some blood in the urine urinary frequency. States has been a bit incontinent. No trauma or falls reported. Reports pain in her lower abdomen. Denies significant headache. Is somewhat drowsy. States he feels more weak. Denies significant nausea. Denies significant pain in the lower extremities. No fevers reported. PAST MEDICAL HISTORY: As noted above MEDICATIONS: Reviewed home medications include Xarelto and valproic acid SOCIAL HISTORY: Smoker PHYSICAL EXAM: GENERAL: alert and oriented to verbal stimuli. Somewhat drowsy in no acute distress on stretcher Head: normocephalic and atraumatic EYES: No injection, discharge or icterus. Eyes PERRL but little bit droopy as she is somewhat fatigued NECK: Trachea midline. Supple. ENT: Mucous membranes pink and moist. LUNGS: Airway patent. No retractions. Breath sounds clear with good air entry bilaterally. HEART: Regular rate and rhythm. No chest wall tenderness ABDOMEN: Soft with some mild tenderness of the lower abdomen. No masses a ppreciated SKIN: Acyanotic, warm, dry, without rashes EXTREMITIES: Without swelling, tenderness or deformity NEUROLOGICAL: No focal deficits moving all extremities. Mildly slurred speech. No obvious facial droop. EK beats per min. Normal sinus rhythm right bundle branch block. No acute ST segment elevation. Nonspecific T wave inversions diffusely. QTc 477. Compared to previous from March 14 of this year similar. CONTINUOUS CARDIAC MONITORING: was ordered and showed a heart rate of 70s bpm in normal sinus rhythm Patient's laboratory studies and imaging reviewed. Differential includes Appendicitis, infections, diverticulitis, UTI, obstruction, mesenteric ischemia, aortic pathology, inflammatory bowel disease, renal colic, PUD, pancreatitis, biliary pathology, hernia, volvulus, constipation, as well as other pathologies. IMPRESSION/MEDICAL DECISION MAKING: Patient reports of weakness and incontinence and lower abdominal pain with some hematuria. He is on a blood thinner. No trauma reported. Is somewhat tender lower abdomen. We will complete CT imaging here as well as CT of the head as she appears somewhat drowsy here today. Blood work was sent. No signs of sign ificant anemia or leukocytosis. No evidence of severe electrolyte abnormality or signs of renal dysfunction. No troponin elevation and not complaining of chest pain and doubt any cardiac etiology. Did send valproate level as well as ammonia and VBG given the patient's drowsy state here. Not really focal and lower suspicion for CVA at this point. Is on several sedating medications may be contributing versus possibly related to a UTI. CT scan the abdomen pelvis again looking for intra-abdominal pathology to explain symptoms including possible diverticulitis or kidney stone. Chest x-ray reassuring. Valproate level mildly elevated but not to explain symptoms. VBG does show some acidosis and mild hypercarbia. We will give a brief course of BiPAP to improve this. Urinalysis appears positive. Cover ceftriaxone based on prior sensitivities and has tolerated this medication before. Question if she is a bit altered and weak and confused from the UTI and this is causing some drowsiness and her breathing issues. Chest x-ray again without evidence of pneumonia. Does not appear septic with normal CBC. No significant renal dysfunction or evidence of severe electrolyte abnormalities. No have signs of hepatitis. Negative troponin and again doubt ACS. Procalcitonin not severely elevated. TSH normal. CT head reassuring by radiology report. CT abdomen pelvis by report also Covered with ceftriaxone for UTI. Will place on BiPAP to see if this helps her hypercarbia. Begins to awaken more. Discussed with her that she will need to come in for care with her nurse weakness and drowsiness and evidence of UTI. Discussed with hospitalist team. Later given a dose of Azo as she has some urinary complaints. Hirsch in place at this time. DIAGNOSIS: Weakness, acute UTI, hypercarbia DISPOSITION: Hospitalist will evaluate Patient was agreeable with this plan. Critical Care I have personally spent 32 minutes of critical care time in the direct management of this patient. This includes bedside care, interpretation of diagnostic studies, and testing, discussion with consultants, patient, and other required patient management activities. These 32 minutes is in excess of all separately billable procedures. Past Med/Surg History Medical History Anemia Anxiety and depression Arthritis Aspiration pneumonia Chronic diarrhea Diabetes Enteritis due to [place] virus Folate deficiency Generalized weakness GERD (gastroesophageal reflux disease) History of pulmonary embolism Hyperparathyroidism Hypothyroid Intractable nausea and vomiting Iron deficiency anemia Irritable bowel syndrome Pulmonary embolism Rectal bleeding Restless leg Schizoaffective disorder Smoking Surgical History History of section x2 History of cholecystectomy History of hysterectomy Family History (Updated 06/14/23 @ 13:58 by Heena Denny PA-C) Mother Diabetes Sister Diabetes Denies family history of Inflammatory bowel disease Social History Smoking Status: Current every day smoker Tobacco Type: Cigarettes Cigarettes Per Day: unknown; Second Hand Exposure: Yes; Do You Dip or Chew Tobacco: No; Hx Alcohol Use: No Hx Substance Use: No Preferred Language: Macedonian Communication Ability: Effective Communication Ability Comment: can read and write just states she can't spell very well Control Analyst Required: No Beliefs That Will Affect Care: None marital status: Current Living Situation: Family Current Living Situation Comment: Lives with daughter How many Children do You have: 2 Feels Safe at Home: Yes Assistive Devices: Walker and Wheelchair Allergies Allergies Allergy/AdvReac Type Severity Reaction Status Date / Time bee venom protein (honey bee) Allergy Intermediate unk Unverified 02/11/23 11:18 egg AdvReac Severe Vomiting Verified 02/11/23 11:18 Penicillins AdvReac Severe VOMITING/IT Verified 02/11/23 11:18 DAVON Home Meds Home Medications Medication Instructions Recorded Confirmed buspirone 15 mg tablet 15 mg PO TID 10/25/20 03/14/23 [id number] 1 cap PO TID 10/25/20 03/14/23 12,000-38,000-60,000 unit capsule,delayed rel (Creon) rivaroxaban 20 mg tablet (Xarelto) 20 mg PO DAILY 10/25/20 03/14/23 escitalopram oxalate 20 mg tablet 20 mg PO QAM 03/18/21 03/14/23 (Lexapro) ropinirole 0.5 mg tablet 0.5 mg PO HS 03/18/21 03/14/23 divalproex 500 mg tablet,extended 1,500 mg PO HS 06/03/21 03/14/23 release 24 hr (Depakote ER) ferrous sulfate 325 mg (65 mg 325 mg PO Q OTHER DAY 06/03/21 03/14/23 iron) tablet (Iron (ferrous sulfate)) cyanocobalamin (vitamin B-12) 1,000 mcg PO BID 08/05/21 03/14/23 1,000 mcg tablet (Vitamin B-12) thiamine HCl (vitamin B1) 100 mg 100 mg PO BID 10/11/21 03/14/23 tablet (Vitamin B-1) benztropine 0.5 mg tablet 0.5 mg PO BID 07/25/22 03/14/23 metformin 500 mg tablet 500 mg PO BID 07/25/22 03/14/23 quetiapine 400 mg tablet 400 mg PO HS 07/25/22 03/14/23 clonazepam 1 mg tablet 1 mg PO TID PRN Anxiety 01/13/23 03/14/23 gabapentin 100 mg capsule 100 mg PO BID 01/13/23 03/14/23 loratadine 10 mg tablet (Claritin) 10 mg PO DAILY 01/13/23 03/14/23 gabapentin 100 mg capsule 200 mg PO HS 03/14/23 03/14/23 pantoprazole 40 mg tablet,delayed 40 mg PO DAILY 03/14/23 03/14/23 release (Protonix) Previous Rx's Medication Instructions Recorded famotidine 20 mg tablet 20 mg PO BID 30 days #60 tabs 02/14/23 promethazine 12.5 mg tablet 12.5 mg PO TID PRN nausea #14 tabs 03/17/23 Results & Data (ED) Vital Signs Vital Signs - 24 hr 06/14/23 09:31 06/14/23 09:39 06/14/23 10:26 Temperature 36.6 C Temperature Source Oral Pulse Rate 72 78 Respiratory Rate 18 Respiratory Effort / Characteristics Non-Labored Spontaneous Respiratory Depth Normal Blood Pressure 110/66 Blood Pressure Mean 80 Pulse Oximetry 92 92 Oxygen Delivery Method Room Air Room Air Fraction of Inspired Oxygen Sepsis Recent Fever Within 48 Hours No Sepsis New/Unexplained Change in Mental Status No Sepsis Action Taken by Nursing No Action Required 06/14/23 12:26 06/14/23 14:20 Temperature Temperature Source Pulse Rate 69 74 Respiratory Rate 20 Respiratory Effort / Characteristics Spontaneous Respiratory Depth Blood Pressure Blood Pressure Mean Pulse Oximetry 96 Oxygen Delivery Method Fraction of Inspired Oxygen 30 Sepsis Recent Fever Within 48 Hours Sepsis New/Unexplained Change in Mental Status Sepsis Action Taken by Nursing Laboratory Data 06/14/23 09:40 06/14/23 09:40 Lab Results 06/14/23 06/14/23 06/14/23 Range/Units 09:40 09:40 09:40 WBC 7.50 (4.8-10.8) K/ul RBC 4.26 (4.20-5.40) M/uL Hgb 13.6 (12.0-16.0) g/dl Hct 38.7 (37.0-47.0) % MCV 90.8 (80.0-100.0) fL MCH 31.9 (25.0-34.0) pg MCHC 35.1 (32.0-36.0) g/dL RDW Std Deviation 40.0 (36.4-46.3) fL RDW Coeff of [place] 12.0 (11.5-14.5) % Plt Count 183 (130-400) K/uL MPV 9.8 (9.4-12.4) fL Immature Gran % (Auto) 0.9 % Neut % (Auto) 48.3 % Lymph % (Auto) 39.1 % [place] % (Auto) 9.2 % Eos % (Auto) 2.0 % Baso % (Auto) 0.5 % Neut # (Auto) 3.62 (1.40-6.50) K/uL Lymph # (Auto) 2.93 (1.2-3.4) K/uL [place] # (Auto) 0.69 H (0.11-0.59) K/uL Eos # (Auto) 0.15 (0-0.50) K/uL Baso # (Auto) 0.04 (0-0.2) K/uL Immature Gran # (Auto) 0.07 (0.01-0.20) K/uL PT 11.2 (9.0-12.0) Seconds INR 1.0 (0.9-1.1) VBG pH (7.36-7.41) VBG pCO2 (38-50) mmHg VBG pO2 mmHg VBG HCO3 mmol/L VBG O2 Saturation % VBG Base Excess mEq/L Sodium 133 L (136-145) mmol/L Potassium 4.3 (3.5-5.1) mmol/L Chloride 101 (98-107) mmol/L Carbon Dioxide 26 (21-32) mmol/L Anion Gap 6 (3-11) BUN 6 (6-23) mg/dl Creatinine 0.68 (0.6-1.2) mg/dl Est Cr Clr Drug Dosing 90.8 ml/min Est GFR ( Amer) 106.4 ml/min Est GFR (Non-Af Amer) 91.8 ml/min BUN/Creatinine Ratio 8.8 L (10-20) Glucose 98 (70-99(Fasting)) mg/dl Lactate (0.4-2.0) mmol/L Calcium 9.2 (8.6-10.3) mg/dl Magnesium 1.6 L (1.7-2.4) mg/dl Total Bilirubin 0.3 (0.2-1.0) mg/dl AST 8 L (13-39) U/L ALT 3 L (7-52) U/L Alkaline Phosphatase 67 (34-104) U/L Ammonia (18-72) umol/L Troponin I High Sens < 2.3 (0-14) pg/ml Total Protein 6.5 (6.0-8.3) gm/dl Albumin 3.5 (3.4-5.0) gm/dl Globulin 3.0 (2.5-4.0) gm/dl Albumin/Globulin Ratio 1.2 (0.9-2) Procalcitonin (0-0.5) ng/ml TSH (0.300-4.500) uIu/ml Urine Color Urine Appearance (Clear) Urine pH (4.5-7.5) Ur Specific [place] (1.000-1.030) Urine Protein (Negative) Urine Glucose (UA) (Negative) Urine Ketones (Negative) Urine Blood (Negative) Urine Nitrite (Negative) Urine Bilirubin (Negative) Urine Urobilinogen (Negative) Ur Leukocyte Esterase (Negative) Urine WBC (Auto) (0-5) /hpf Urine RBC (Auto) (0-4) /hpf U Hyaline Cast (Auto) (0-5) /lpf U Epithel Cells (Auto) (0-5) /lpf Urine Bacteria (Auto) (Negative) Urine Yeast Valproic Acid (50-100) mcg/ml SARS-CoV-2, RNA, NAAT (NEGATIVE) 07/31/23 07/31/23 07/31/23 Range/Units 09:40 09:40 10:21 WBC (4.8-10.8) K/ul RBC (4.20-5.40) M/uL Hgb (12.0-16.0) g/dl Hct (37.0-47.0) % MCV (80.0-100.0) fL MCH (25.0-34.0) pg MCHC (32.0-36.0) g/dL RDW Std Deviation (36.4-46.3) fL RDW Coeff of [place] (11.5-14.5) % Plt Count (130-400) K/uL MPV (9.4-12.4) fL Immature Gran % (Auto) % Neut % (Auto) % Lymph % (Auto) % [place] % (Auto) % Eos % (Auto) % Baso % (Auto) % Neut # (Auto) (1.40-6.50) K/uL Lymph # (Auto) (1.2-3.4) K/uL [place] # (Auto) (0.11-0.59) K/uL Eos # (Auto) (0-0.50) K/uL Baso # (Auto) (0-0.2) K/uL Immature Gran # (Auto) (0.01-0.20) K/uL PT (9.0-12.0) Seconds INR (0.9-1.1) VBG pH (7.36-7.41) VBG pCO2 (38-50) mmHg VBG pO2 mmHg VBG HCO3 mmol/L VBG O2 Saturation % VBG Base Excess mEq/L Sodium (136-145) mmol/L Potassium (3.5-5.1) mmol/L Chloride (98-107) mmol/L Carbon Dioxide (21-32) mmol/L Anion Gap (3-11) BUN (6-23) mg/dl Creatinine (0.6-1.2) mg/dl Est Cr Clr Drug Dosing ml/min Est GFR ( Amer) ml/min Est GFR (Non-Af Amer) ml/min BUN/Creatinine Ratio (10-20) Glucose (70-99(Fasting)) mg/dl Lactate (0.4-2.0) mmol/L Calcium (8.6-10.3) mg/dl Magnesium (1.7-2.4) mg/dl Total Bilirubin (0.2-1.0) mg/dl AST (13-39) U/L ALT (7-52) U/L Alkaline Phosphatase (34-104) U/L Ammonia (18-72) umol/L Troponin I High Sens (0-14) pg/ml Total Protein (6.0-8.3) gm/dl Albumin (3.4-5.0) gm/dl Globulin (2.5-4.0) gm/dl Albumin/Globulin Ratio (0.9-2) Procalcitonin < 0.05 (0-0.5) ng/ml TSH 2.147 (0.300-4.500) uIu/ml Urine Color Yellow Urine Appearance Cloudy A (Clear) Urine pH 6.0 (4.5-7.5) Ur Specific [place] 1.010 (1.000-1.030) Urine Protein Trace H (Negative) Urine Glucose (UA) Negative (Negative) Urine Ketones Negative (Negative) Urine Blood 3+ H (Negative) Urine Nitrite Negative (Negative) Urine Bilirubin Negative (Negative) Urine Urobilinogen Negative (Negative) Ur Leukocyte Esterase 2+ H (Negative) Urine WBC (Auto) >30 H (0-5) /hpf Urine RBC (Auto) 10-30 H (0-4) /hpf U Hyaline Cast (Auto) 1-5 (0-5) /lpf U Epithel Cells (Auto) 5-10 H (0-5) /lpf Urine Bacteria (Auto) 4+ H (Negative) Urine Yeast Not Reportable Valproic Acid (50-100) mcg/ml SARS-CoV-2, RNA, NAAT (NEGATIVE) 06/14/23 06/14/23 06/14/23 Range/Units 10:26 10:55 10:55 WBC (4.8-10.8) K/ul RBC (4.20-5.40) M/uL Hgb (12.0-16.0) g/dl Hct (37.0-47.0) % MCV (80.0-100.0) fL MCH (25.0-34.0) pg MCHC (32.0-36.0) g/dL RDW Std Deviation (36.4-46.3) fL RDW Coeff of [place] (11.5-14.5) % Plt Count (130-400) K/uL MPV (9.4-12.4) fL Immature Gran % (Auto) % Neut % (Auto) % Lymph % (Auto) % [place] % (Auto) % Eos % (Auto) % Baso % (Auto) % Neut # (Auto) (1.40-6.50) K/uL Lymph # (Auto) (1.2-3.4) K/uL [place] # (Auto) (0.11-0.59) K/uL Eos # (Auto) (0-0.50) K/uL Baso # (Auto) (0-0.2) K/uL Immature Gran # (Auto) (0.01-0.20) K/uL PT (9.0-12.0) Seconds INR (0.9-1.1) VBG pH (7.36-7.41) VBG pCO2 (38-50) mmHg VBG pO2 mmHg VBG HCO3 mmol/L VBG O2 Saturation % VBG Base Excess mEq/L Sodium (136-145) mmol/L Potassium (3.5-5.1) mmol/L Chloride (98-107) mmol/L Carbon Dioxide (21-32) mmol/L Anion Gap (3-11) BUN (6-23) mg/dl Creatinine (0.6-1.2) mg/dl Est Cr Clr Drug Dosing ml/min Est GFR ( Amer) ml/min Est GFR (Non-Af Amer) ml/min BUN/Creatinine Ratio (10-20) Glucose (70-99(Fasting)) mg/dl Lactate 1.7 (0.4-2.0) mmol/L Calcium (8.6-10.3) mg/dl Magnesium (1.7-2.4) mg/dl Total Bilirubin (0.2-1.0) mg/dl AST (13-39) U/L ALT (7-52) U/L Alkaline Phosphatase (34-104) U/L Ammonia 31.0 (18-72) umol/L Troponin I High Sens (0-14) pg/ml Total Protein (6.0-8.3) gm/dl Albumin (3.4-5.0) gm/dl Globulin (2.5-4.0) gm/dl Albumin/Globulin Ratio (0.9-2) Procalcitonin (0-0.5) ng/ml TSH (0.300-4.500) uIu/ml Urine Color Urine Appearance (Clear) Urine pH (4.5-7.5) Ur Specific [place] (1.000-1.030) Urine Protein (Negative) Urine Glucose (UA) (Negative) Urine Ketones (Negative) Urine Blood (Negative) Urine Nitrite (Negative) Urine Bilirubin (Negative) Urine Urobilinogen (Negative) Ur Leukocyte Esterase (Negative) Urine WBC (Auto) (0-5) /hpf Urine RBC (Auto) (0-4) /hpf U Hyaline Cast (Auto) (0-5) /lpf U Epithel Cells (Auto) (0-5) /lpf Urine Bacteria (Auto) (Negative) Urine Yeast Valproic Acid (50-100) mcg/ml SARS-CoV-2, RNA, NAAT NEGATIVE (NEGATIVE) 06/14/23 06/14/23 Range/Units 10:55 10:55 WBC (4.8-10.8) K/ul RBC (4.20-5.40) M/uL Hgb (12.0-16.0) g/dl Hct (37.0-47.0) % MCV (80.0-100.0) fL MCH (25.0-34.0) pg MCHC (32.0-36.0) g/dL RDW Std Deviation (36.4-46.3) fL RDW Coeff of [place] (11.5-14.5) % Plt Count (130-400) K/uL MPV (9.4-12.4) fL Immature Gran % (Auto) % Neut % (Auto) % Lymph % (Auto) % [place] % (Auto) % Eos % (Auto) % Baso % (Auto) % Neut # (Auto) (1.40-6.50) K/uL Lymph # (Auto) (1.2-3.4) K/uL [place] # (Auto) (0.11-0.59) K/uL Eos # (Auto) (0-0.50) K/uL Baso # (Auto) (0-0.2) K/uL Immature Gran # (Auto) (0.01-0.20) K/uL PT (9.0-12.0) Seconds INR (0.9-1.1) VBG pH 7.29 L (7.36-7.41) VBG pCO2 58 H (38-50) mmHg VBG pO2 24 mmHg VBG HCO3 28 mmol/L VBG O2 Saturation < 60.0 % VBG Base Excess -0.1 mEq/L Sodium (136-145) mmol/L Potassium (3.5-5.1) mmol/L Chloride (98-107) mmol/L Carbon Dioxide (21-32) mmol/L Anion Gap (3-11) BUN (6-23) mg/dl Creatinine (0.6-1.2) mg/dl Est Cr Clr Drug Dosing ml/min Est GFR ( Amer) ml/min Est GFR (Non-Af Amer) ml/min BUN/Creatinine Ratio (10-20) Glucose (70-99(Fasting)) mg/dl Lactate (0.4-2.0) mmol/L Calcium (8.6-10.3) mg/dl Magnesium (1.7-2.4) mg/dl Total Bilirubin (0.2-1.0) mg/dl AST (13-39) U/L ALT (7-52) U/L Alkaline Phosphatase (34-104) U/L Ammonia (18-72) umol/L Troponin I High Sens (0-14) pg/ml Total Protein (6.0-8.3) gm/dl Albumin (3.4-5.0) gm/dl Globulin (2.5-4.0) gm/dl Albumin/Globulin Ratio (0.9-2) Procalcitonin (0-0.5) ng/ml TSH (0.300-4.500) uIu/ml Urine Color Urine Appearance (Clear) Urine pH (4.5-7.5) Ur Specific [place] (1.000-1.030) Urine Protein (Negative) Urine Glucose (UA) (Negative) Urine Ketones (Negative) Urine Blood (Negative) Urine Nitrite (Negative) Urine Bilirubin (Negative) Urine Urobilinogen (Negative) Ur Leukocyte Esterase (Negative) Urine WBC (Auto) (0-5) /hpf Urine RBC (Auto) (0-4) /hpf U Hyaline Cast (Auto) (0-5) /lpf U Epithel Cells (Auto) (0-5) /lpf Urine Bacteria (Auto) (Negative) Urine Yeast Valproic Acid 110 H (50-100) mcg/ml SARS-CoV-2, RNA, NAAT (NEGATIVE) Administered Medications Discontinued Medications Albuterol (Albut/Ipratrop 3mg/0.5mg Neb 3 Ml Vial) 3 ml NEB NOW STA; Protocol Stop: 06/14/23 12:37 Last Admin: 06/14/23 13:03 Dose: 3 ml Documented By: ISABELL Ceftriaxone Sodium (Rocephin) 2,000 mg in 70 mls @ 140 mls/hr IV NOW STA Stop: 06/14/23 12:08 Last Infusion: 06/14/23 12:20 Dose: 0 mls/hr Documented By: Admin: 06/14/23 11:55 Dose: 140 mls/hr Documented By: ISABELL Ioversol (Optiray 320 100ml) 93 ml IV ONCE ONE Stop: 06/14/23 11:49 Last Admin: 06/14/23 11:48 Dose: 93 ml Documented By: HUSSEIN Phenazopyridine HCl (Phenazopyridine Hcl 200 Mg Tab) 200 mg PO NOW STA Stop: 06/14/23 14:00 Last Admin: 06/14/23 14:20 Dose: Not Given Documented By: ISABELL Imaging Data Radiologist's Impression: Abdomen/Pelvis CT 06/14/23 10:02 CT SCAN OF THE ABDOMEN AND PELVIS WITH IV CONTRAST CLINICAL HISTORY: Generalized weakness. Lower abdominal pain. Hematuria. COMPARISON STUDY: Multiple prior abdominal CT scans, most recently dated 2022. TECHNIQUE: Following the IV administration of 93 cc of Optiray 320, CT scan of the abdomen and pelvis is performed from the lung bases to the proximal femora. Images are reviewed in the axial, sagittal, and coronal planes. IV contrast was administered without complication. A dose lowering technique was utilized adhering to the principles of ALARA. There is streak artifact from the arms which could not be elevated above the abdomen. FINDINGS: Lung bases: The heart is top normal in size and without pericardial effusion. The coronary arteries are densely calcified. There is lipomatous hypertrophy of the interatrial septum. A small hiatal hernia is noted. The lung bases are clear noting dependent scarring/atelectasis. Liver: The contrast-enhanced liver is enlarged, measuring 19.1 cm in length. The liver is otherwise normal in contour and attenuation. There is mild intrahepatic biliary ductal dilatation. The hepatic veins and portal veins are patent. Gallbladder: Surgically absent and clips in the gallbladder fossa. The common bile duct is dilated, measuring up to 11 mm. This is similar to previous. Spleen: Normal in size and attenuation. Pancreas: Unremarkable. Adrenal glands: Unremarkable. Kidneys: The contrast enhanced kidneys are normal in size and without hydronephrosis. The kidneys enhance symmetrically. Abdominal vasculature: The abdominal aorta is normal in course and caliber noting moderate atherosclerotic calcification. Bowel: There is mild to moderate colonic fecal retention. No bowel obstruction is seen. The appendix is well-visualized and normal. Peritoneum: There is no intraperitoneal free air or abdominal ascites. Postsurgical change is noted in the ventral wall of the pelvis. Lymphadenopathy: None. Pelvic viscera: The bladder is decompressed by a Hirsch catheter. The bladder wall is thickened and hyperemic. There is mild pericystic infiltration. The uterus is surgically absent. No adnexal lesion is seen. Skeletal structures: The skeletal structures are osteopenic. The skeletal structures are osteopenic. There is mild lumbosacral spondylosis. No lytic or bl astic lesions are seen. Degenerative sclerosis is noted in the left sacroiliac joint. IMPRESSION: 1. The bladder is decompressed around a Hirsch catheter with evidence of cystitis. Correlate with clinical findings and urinalysis. 2. Hepatomegaly. 3. Additional findings as above. ACT 112: Negative or not required by law. Electronically signed by: Amaury Meier M.D. 06/14/2023 12:11 PM Chest X-Ray 06/14/23 10:02 XR chest 1V portable CLINICAL HISTORY: weakness COMPARISON STUDY: Chest radiograph February 11, 2023. FINDINGS: Patient is rotated. Lung volumes are normal. Lungs are clear. There is no pneumothorax or pleural effusion. Cardiac size is stable. Mediastinal contours are normal. There is no evidence for pulmonary edema. IMPRESSION: No acute cardiopulmonary findings. ACT 112: Negative or not required by law. Electronically signed by: Bryn East M.D. 06/14/2023 11:[address] 06/14/23 10:02 CT OF THE HEAD WITHOUT CONTRAST CLINICAL HISTORY: Altered mental status. COMPARISON STUDY: Head CT February 25, 2022. CT DOSE: 2395.85 mGy.cm TECHNIQUE: Helical axial images of the head were obtained without IV contrast. Automated exposure control was utilized for the study. A dose lowering technique was utilized adhering to the principles of ALARA. FINDINGS: No acute intracranial hemorrhage, midline shift or mass effect is present. Mild white matter hypodensities are unchanged and favor small vessel disease. The ventricular system is unremarkable. The basal cisterns are patent. No extra-axial collections are present. There are no findings to suggest acute dural sinus thrombosis or acute territorial infarct. No significant calvarial abnormalities are present. Visualized portions of the sinuses and mastoid air cells are clear. IMPRESSION: No acute intracranial findings. ACT 112: Negative or not required by law. Electronically signed by: Bryn East M.D. 06/14/2023 12:04 PM Discharge Plan Visit Data Chief Complaint: Weakness ED Provider: Domo Hopkins Discharge Problem: Generalized weakness, Acute UTI, Abdominal pain, Hypercarbia, Somnolence Patient Disposition: Being Evaluated by Hospitalist Forms Stand Alone Forms: My [facility] Prescriptions Prescriptions: No Action buspirone 15 mg tablet 15 mg PO TID Creon 12,000-38,000 -60,000 unit capsule,delayed release(DR/EC) 1 cap PO TID Xarelto 20 mg tablet 20 mg PO DAILY ropinirole 0.5 mg tablet 0.5 mg PO HS escitalopram oxalate [Lexapro] 20 mg tablet 20 mg PO QAM metformin 500 mg tablet 500 mg PO BID benztropine 0.5 mg tablet 0.5 mg PO BID quetiapine 400 mg tablet 400 mg PO HS famotidine 20 mg tablet 20 mg PO BID 30 Days Qty: 60 0RF gabapentin 100 mg capsule 200 mg PO HS pantoprazole [Protonix] 40 mg tablet,delayed release (DR/EC) 40 mg PO DAILY promethazine 12.5 mg tablet 12.5 mg PO TID PRN (Reason: nausea) Qty: 14 0RF ferrous sulfate [Iron (ferrous sulfate)] 325 mg (65 mg iron) tablet 325 mg PO Q OTHER DAY divalproex [Depakote ER] 500 mg tablet extended release 24 hr 1,500 mg PO HS cyanocobalamin (vitamin B-12) [Vitamin B-12] 1,000 mcg tablet 1,000 mcg PO BID thiamine HCl (vitamin B1) [Vitamin B-1] 100 mg tablet 100 mg PO BID clonazepam 1 mg tablet 1 mg PO TID PRN (Reason: Anxiety) gabapentin 100 mg capsule 100 mg PO BID Rx Instructions: TAKES 100 MG QAM & NOON, THEN 200 MG AT HS. loratadine [Claritin] 10 mg Tablet 10 mg PO DAILY Referrals Referrals: Wen Garza DO [Primary Care Provider] -
[2023-06-14 10:57] LABS: Appearance Urine Cloudy (Clear); Bacteria Urine Automated 4+ (Negative); Bilirubin Urine Negative (Negative); Blood Urine 3+ (Negative); Color Urine Yellow; Glucose Urine UA Negative (Negative); Ketones Urine Negative (Negative); Leukocyte Esterase Urine 2+ (Negative); Nitrite Urine Negative (Negative); Protein Urine Trace (Negative); Urobilinogen Urine Negative (Negative); WBC Urine Automated >30 /hpf (0-5)
[2023-06-14 11:11] LABS: Prothrombin Time 11.2 Seconds (9.0-12.0)
--- NOTE | 2023-06-14 11:20 | XRay Report ---
XR chest 1V portable CLINICAL HISTORY: weakness COMPARISON STUDY: Chest radiograph February 11, 2023. FINDINGS: Patient is rotated. Lung volumes are normal. Lungs are clear. There is no pneumothorax or p leural effusion. Cardiac size is stable. Mediastinal contours are normal. There is no evidence for pu lmonary edema. IMPRESSION: No acute cardiopulmonary findings. ACT 112: Negative or not required by law. Electronically signed by: Bryn East M.D. 06/14/2023 11:19 AM
[2023-06-14 11:21] LABS: Base Excess VBG -0.1 mEq/L; HCO3 VBG 28 mmol/L; Oxygen Saturation VBG < 60.0 %; PCO2 VBG 58 mmHg (38-50); PO2 VBG 24 mmHg; pH VBG 7.29 (7.36-7.41)
[2023-06-14] MEDS ORDERED: cefTRIAXone SODIUM 2,000 MG/70 ML BAG IV STA (11:39)
[2023-06-14] MEDS ORDERED: OPTIRAY 320 100ml IV ONE (11:48)
--- NOTE | 2023-06-14 12:05 | CT Scan Report ---
CT OF THE HEAD WITHOUT CONTRAST CLINICAL HISTORY: Altered mental status. COMPARISON STUDY: Head CT February 25, 2022. CT DOSE: 2395.85 mGy.cm TECHNIQUE: Helical axial images of the head were obtained without IV contrast. Automated exposure con trol was utilized for the study. A dose lowering technique was utilized adhering to the principles o f ALARA. FINDINGS: No acute intracranial hemorrhage, midline shift or mass effect is present. Mild white matte r hypodensities are unchanged and favor small vessel disease. The ventricular system is unremarkable. The basal cisterns are patent. No extra-axial collections are present. There are no findings to sugg est acute dural sinus thrombosis or acute territorial infarct. No significant calvarial abnormalities are present. Visualized portions of the sinuses and mastoid air cells are clear. IMPRESSION: No acute intracranial findings. ACT 112: Negative or not required by law. Electronically signed by: Bryn East M.D. 06/14/2023 12:04 PM
--- NOTE | 2023-06-14 12:13 | CT Scan Report ---
CT SCAN OF THE ABDOMEN AND PELVIS WITH IV CONTRAST CLINICAL HISTORY: Generalized weakness. Lower abdominal pain. Hematuria. COMPARISON STUDY: Multiple prior abdominal CT scans, most recently dated 03/14/2023. TECHNIQUE: Following the IV administration of 93 cc of Optiray 320, CT scan of the abdomen and pelvi s is performed from the lung bases to the proximal femora. Images are reviewed in the axial, sagittal , and coronal planes. IV contrast was administered without complication. A dose lowering technique wa s utilized adhering to the principles of ALARA. There is streak artifact from the arms which could no t be elevated above the abdomen. FINDINGS: Lung bases: The heart is top normal in size and without pericardial effusion. The coronary arteries a re densely calcified. There is lipomatous hypertrophy of the interatrial septum. A small hiatal herni a is noted. The lung bases are clear noting dependent scarring/atelectasis. Liver: The contrast-enhanced liver is enlarged, measuring 19.1 cm in length. The liver is otherwise n ormal in contour and attenuation. There is mild intrahepatic biliary ductal dilatation. The hepatic v eins and portal veins are patent. Gallbladder: Surgically absent and clips in the gallbladder fossa. The common bile duct is dilated, m easuring up to 11 mm. This is similar to previous. Spleen: Normal in size and attenuation. Pancreas: Unremarkable. Adrenal glands: Unremarkable. Kidneys: The contrast enhanced kidneys are normal in size and without hydronephrosis. The kidneys enh ance symmetrically. Abdominal vasculature: The abdominal aorta is normal in course and caliber noting moderate atheroscle rotic calcification. Bowel: There is mild to moderate colonic fecal retention. No bowel obstruction is seen. The appendix is well-visualized and normal. Peritoneum: There is no intraperitoneal free air or abdominal ascites. Postsurgical change is noted i n the ventral wall of the pelvis. Lymphadenopathy: None. Pelvic viscera: The bladder is decompressed by a Hirsch catheter. The bladder wall is thickened and hy peremic. There is mild pericystic infiltration. The uterus is surgically absent. No adnexal lesion is seen. Skeletal structures: The skeletal structures are osteopenic. The skeletal structures are osteopenic. There is mild lumbosacral spondylosis. No lytic or blastic lesions are seen. Degenerative sclerosis i s noted in the left sacroiliac joint. IMPRESSION: 1. The bladder is decompressed around a Hisrch catheter with evidence of cystitis. Correlate with clin ical findings and urinalysis. 2. Hepatomegaly. 3. Additional findings as above. ACT 112: Negative or not required by law. Electronically signed by: Amaury Meier M.D. 06/14/2023 12:11 PM
[2023-06-14] MEDS ORDERED: ALBUT/IPRATROP 3MG/0.5MG NEB 3 ML VIAL NEB STA (12:36)
--- NOTE | 2023-06-14 13:34 | History & Physical Report ---
Date of Service June 14, 2023 Assessment & Plan (1) Acute metabolic encephalopathy: Plan: 67 y/o female with a history of DM2, schizoaffective disorder, GERD, hypothyroid, prior PE, chronic AC with Xarelto, prior UTIs, and chronic intermittent N/V who presented to the ED today via EMS with generalized weakness and UTI symptoms. Drowsy and lethargic in the ED but is able to answer some basic history questions. Started on ceftriaxone in the ED for the UTI. Labs in the ED showed a VBG with a pH of 7.29 and CO2 58 so pt was started on a trial of BiPAP for hypercarbia in hopes that this would improve her mental status. - Admit to PCU - Continue BiPAP for now - recheck ABG later this afternoon - Continue ceftriaxone started in the ED, blood and urine cultures pending - Mild hypomagnesemia noted in the ED - will replete and recheck in the AM - Labs in AM - CBC, BMP (2) Acute UTI: Plan: See plan for #1 - ceftriaxone, await culture (3) Hypercarbia: Plan: See plan for #1 - BiPAP, recheck ABG later today (4) DM II (diabetes mellitus, type II), controlled: Plan: Hold Metformin Insulin sliding scale BSG ACHS Diabetic diet (5) Schizoaffective disorder: Plan: Holding outpatient Klonopin due to drowsiness Continue other medications (6) History of pulmonary embolism: Plan: Unclear how significant hematuria noted at home was but no significant anemia on labs in the ED - will continue Xarelto and monitor (7) GERD (gastroesophageal reflux disease): Plan: Continue famotidine Plan Pt seen and reviewed with collaborating physician, Dr. Gordon. Plan of care discussed and as outlined above. Code Status: Full Code DVT Prophylaxis: continue Xarelto Judith Denny PA-C History of Present Illness Chief Complaint: Weakness Primary Care Provider: Wen Garza, This is a 67 y/o female with a history of DM2, schizoaffective disorder, GERD, hypothyroid, prior PE, chronic AC with Xarelto, prior UTIs, and chronic intermittent N/V who presented to the ED today via EMS with generalized weakness and UTI symptoms. Pt reports several days of suprapubic discomfort, dysuria, hematuria, and urinary frequency. She has been more tired than usual, has had chills but is unsure if she had a fever. Overnight, she developed increased weakness and reports today was unable to ambulate even with her walker so she came for evaluation. More drowsy than usual, both at home and in the ED. Denies nausea, vomiting. Appetite has been good. Has had some dizziness but denies syncope, recent falls. Most recently admitted to [facility] 03/14-03/17/23 for Norovirus infection. Reports the chronic intermittent N/V/D is not currently an issue. Allergies Allergy/AdvReac Type Severity Reaction Status Date / Time bee venom protein (honey bee) Allergy Intermediate unk Unverified 02/11/23 11:18 egg AdvReac Severe Vomiting Verified 02/11/23 11:18 Penicillins AdvReac Severe VOMITING/IT Verified 02/11/23 11:18 DAVON Home Medications Medication Instructions Recorded Confirmed Type buspirone 15 mg tablet 15 mg PO TID 10/25/20 06/14/23 History [id number]-[id number]-[id number] 1 cap PO TID 10/25/20 06/14/23 History 12,000-38,000-60,000 unit capsule,delayed rel (Creon) rivaroxaban 20 mg tablet (Xarelto) 20 mg PO DAILY 10/25/20 06/14/23 History escitalopram oxalate 20 mg tablet 20 mg PO QAM 03/18/21 06/14/23 History (Lexapro) ropinirole 0.5 mg tablet 0.5 mg PO HS 03/18/21 06/14/23 History divalproex 500 mg tablet,extended 1,500 mg PO HS 06/03/21 06/14/23 History release 24 hr (Depakote ER) ferrous sulfate 325 mg (65 mg 325 mg PO Q OTHER DAY 06/03/21 06/14/23 History iron) tablet (Iron (ferrous sulfate)) cyanocobalamin (vitamin B-12) 1,000 mcg PO BID 08/05/21 06/14/23 History 1,000 mcg tablet (Vitamin B-12) thiamine HCl (vitamin B1) 100 mg 100 mg PO BID 10/11/21 06/14/23 History tablet (Vitamin B-1) benztropine 0.5 mg tablet 0.5 mg PO BID 07/25/22 06/14/23 History quetiapine 400 mg tablet 400 mg PO HS 07/25/22 06/14/23 History clonazepam 1 mg tablet 1 mg PO TID PRN Anxiety 01/13/23 06/14/23 History gabapentin 100 mg capsule 100 mg PO BID17 01/13/23 06/14/23 History loratadine 10 mg tablet (Claritin) 10 mg PO DAILY 01/13/23 06/14/23 History famotidine 20 mg tablet 20 mg PO BID 30 days #60 tabs 02/14/23 06/14/23 Rx gabapentin 100 mg capsule 200 mg PO HS 03/14/23 06/14/23 History pantoprazole 40 mg tablet,delayed 40 mg PO QAM 03/14/23 06/14/23 History release (Protonix) promethazine 12.5 mg tablet 12.5 mg PO TID PRN nausea #14 tabs 03/17/23 06/14/23 Rx cholestyramine (with sugar) 4 gram See Rx Instructions .Route .COMPLEX 06/14/23 06/14/23 History oral powder metformin 500 mg tablet,extended 500 mg PO BID 06/14/23 06/14/23 History release 24 hr Past Med/Surg History Medical History Anemia Anxiety and depression Arthritis Aspiration pneumonia Chronic diarrhea Diabetes Enteritis due to Roxie virus Folate deficiency Generalized weakness GERD (gastroesophageal reflux disease) History of pulmonary embolism Hyperparathyroidism Hypothyroid Intractable nausea and vomiting Iron deficiency anemia Irritable bowel syndrome Pulmonary embolism Rectal bleeding Restless leg Schizoaffective disorder Smoking Surgical History History of section x2 History of cholecystectomy History of hysterectomy Family History (Updated 06/14/23 @ 13:58 by Heena Denny PA-C) Mother Diabetes Sister Diabetes Denies family history of Inflammatory bowel disease Social History Smoking Status: Current every day smoker Tobacco Type: Cigarettes Cigarettes Per Day: unknown; Second Hand Exposure: Yes; Do You Dip or Chew Tobacco: No; Hx Alcohol Use: No Hx Substance Use: No Preferred Language: Chinese Communication Ability: Effective Physical Therapy Instructor Required: No Beliefs That Will Affect Care: None marital status: Current Living Situation: Family Current Living Situation Comment: Lives with daughter How many Children do You have: 2 Other Information That Helps Us Care for You: No Feels Safe at Home: Yes Safety Concerns: Feels Safe At This Time Assistive Devices: Walker and Wheelchair Review of Systems Review of Systems: Limited due to pt being on BiPAP when evaluated - see HPI Physical Exam Constitutional: + obese; no acute distress drowsy but arousable, currently on BiPAP Eyes: + anicteric sclerae Neck: trachea midline Respiratory: no respiratory distress and no labored breathing Auscultation: + diminished lung sounds; no rales, no rhonchi and no wheezes Cardiovascular: Rate/Rhythm: regular rate and regular rhythm Gastrointestinal (Abdomen): Inspection/Auscultation: normal bowel sounds Percussion/Palpation: + abdomen tender (suprapubic) and abdomen soft Musculoskeletal: Head/Neck/Chest: normocephalic, head atraumatic and neck supple Skin: no jaundice Neurologic: moves all extremities drowsy but arousable to verbal and physical stimuli Psychiatric: Orientation: oriented x 3 Results & Data Results & Data Vital Signs (Past 12 Hours) Vital Signs Temp Pulse Resp BP Pulse Ox O2 Del Method FiO2 06/14/23 12:26 69 20 96 30 06/14/23 10:26 78 06/14/23 09:39 92 Room Air 06/14/23 09:31 36.6 C 72 18 110/66 92 Room Air Laboratory Results Laboratory Results - last 24 hr 06/14/23 06/14/23 06/14/23 09:40 09:40 09:40 WBC 7.50 RBC 4.26 Hgb 13.6 Hct 38.7 MCV 90.8 MCH 31.9 MCHC 35.1 RDW Std Deviation 40.0 RDW Coeff of [place] 12.0 Plt Count 183 MPV 9.8 Immature Gran % (Auto) 0.9 Neut % (Auto) 48.3 Lymph % (Auto) 39.1 Story % (Auto) 9.2 Eos % (Auto) 2.0 Baso % (Auto) 0.5 Neut # (Auto) 3.62 Lymph # (Auto) 2.93 Story # (Auto) 0.69 H Eos # (Auto) 0.15 Baso # (Auto) 0.04 Immature Gran # (Auto) 0.07 PT 11.2 INR 1.0 VBG pH VBG pCO2 VBG pO2 VBG HCO3 VBG O2 Saturation VBG Base Excess Sodium 133 L Potassium 4.3 Chloride 101 Carbon Dioxide 26 Anion Gap 6 BUN 6 Creatinine 0.68 Est Cr Clr Drug Dosing 90.8 Est GFR ( Amer) 106.4 Est GFR (Non-Af Amer) 91.8 BUN/Creatinine Ratio 8.8 L Glucose 98 Lactate Calcium 9.2 Magnesium 1.6 L Total Bilirubin 0.3 AST 8 L ALT 3 L Alkaline Phosphatase 67 Ammonia Troponin I High Sens < 2.3 Total Protein 6.5 Albumin 3.5 Globulin 3.0 Albumin/Globulin Ratio 1.2 Procalcitonin TSH Urine Color Urine Appearance Urine pH Ur Specific [place] Urine Protein Urine Glucose (UA) Urine Ketones Urine Blood Urine Nitrite Urine Bilirubin Urine Urobilinogen Ur Leukocyte Esterase Urine WBC (Auto) Urine RBC (Auto) U Hyaline Cast (Auto) U Epithel Cells (Auto) Urine Bacteria (Auto) Urine Yeast Valproic Acid SARS-CoV-2, RNA, NAAT 06/14/23 06/14/23 06/14/23 09:40 09:40 10:21 WBC RBC Hgb Hct MCV MCH MCHC RDW Std Deviation RDW Coeff of [place] Plt Count MPV Immature Gran % (Auto) Neut % (Auto) Lymph % (Auto) Story % (Auto) Eos % (Auto) Baso % (Auto) Neut # (Auto) Lymph # (Auto) Story # (Auto) Eos # (Auto) Baso # (Auto) Immature Gran # (Auto) PT INR VBG pH VBG pCO2 VBG pO2 VBG HCO3 VBG O2 Saturation VBG Base Excess Sodium Potassium Chloride Carbon Dioxide Anion Gap BUN Creatinine Est Cr Clr Drug Dosing Est GFR ( Amer) Est GFR (Non-Af Amer) BUN/Creatinine Ratio Glucose Lactate Calcium Magnesium Total Bilirubin AST ALT Alkaline Phosphatase Ammonia Troponin I High Sens Total Protein Albumin Globulin Albumin/Globulin Ratio Procalcitonin < 0.05 TSH 2.147 Urine Color Yellow Urine Appearance Cloudy A Urine pH 6.0 Ur Specific [place] 1.010 Urine Protein Trace H Urine Glucose (UA) Negative Urine Ketones Negative Urine Blood 3+ H Urine Nitrite Negative Urine Bilirubin Negative Urine Urobilinogen Negative Ur Leukocyte Esterase 2+ H Urine WBC (Auto) >30 H Urine RBC (Auto) 10-30 H U Hyaline Cast (Auto) 1-5 U Epithel Cells (Auto) 5-10 H Urine Bacteria (Auto) 4+ H Urine Yeast Not Reportable Valproic Acid SARS-CoV-2, RNA, NAAT 06/14/23 06/14/23 06/14/23 10:26 10:55 10:55 WBC RBC Hgb Hct MCV MCH MCHC RDW Std Deviation RDW Coeff of [place] Plt Count MPV Immature Gran % (Auto) Neut % (Auto) Lymph % (Auto) Story % (Auto) Eos % (Auto) Baso % (Auto) Neut # (Auto) Lymph # (Auto) Story # (Auto) Eos # (Auto) Baso # (Auto) Immature Gran # (Auto) PT INR VBG pH VBG pCO2 VBG pO2 VBG HCO3 VBG O2 Saturation VBG Base Excess Sodium Potassium Chloride Carbon Dioxide Anion Gap BUN Creatinine Est Cr Clr Drug Dosing Est GFR ( Amer) Est GFR (Non-Af Amer) BUN/Creatinine Ratio Glucose Lactate 1.7 Calcium Magnesium Total Bilirubin AST ALT Alkaline Phosphatase Ammonia 31.0 Troponin I High Sens Total Protein Albumin Globulin Albumin/Globulin Ratio Procalcitonin TSH Urine Color Urine Appearance Urine pH Ur Specific [place] Urine Protein Urine Glucose (UA) Urine Ketones Urine Blood Urine Nitrite Urine Bilirubin Urine Urobilinogen Ur Leukocyte Esterase Urine WBC (Auto) Urine RBC (Auto) U Hyaline Cast (Auto) U Epithel Cells (Auto) Urine Bacteria (Auto) Urine Yeast Valproic Acid SARS-CoV-2, RNA, NAAT NEGATIVE 06/14/23 06/14/23 10:55 10:55 WBC RBC Hgb Hct MCV MCH MCHC RDW Std Deviation RDW Coeff of [place] Plt Count MPV Immature Gran % (Auto) Neut % (Auto) Lymph % (Auto) Story % (Auto) Eos % (Auto) Baso % (Auto) Neut # (Auto) Lymph # (Auto) Story # (Auto) Eos # (Auto) Baso # (Auto) Immature Gran # (Auto) PT INR VBG pH 7.29 L VBG pCO2 58 H VBG pO2 24 VBG HCO3 28 VBG O2 Saturation < 60.0 VBG Base Excess -0.1 Sodium Potassium Chloride Carbon Dioxide Anion Gap BUN Creatinine Est Cr Clr Drug Dosing Est GFR ( Amer) Est GFR (Non-Af Amer) BUN/Creatinine Ratio Glucose Lactate Calcium Magnesium Total Bilirubin AST ALT Alkaline Phosphatase Ammonia Troponin I High Sens Total Protein Albumin Globulin Albumin/Globulin Ratio Procalcitonin TSH Urine Color Urine Appearance Urine pH Ur Specific [place] Urine Protein Urine Glucose (UA) Urine Ketones Urine Blood Urine Nitrite Urine Bilirubin Urine Urobilinogen Ur Leukocyte Esterase Urine WBC (Auto) Urine RBC (Auto) U Hyaline Cast (Auto) U Epithel Cells (Auto) Urine Bacteria (Auto) Urine Yeast Valproic Acid 110 H SARS-CoV-2, RNA, NAAT Diagnostic Findings Abdomen/Pelvis CT 06/14/23 10:02 CT SCAN OF THE ABDOMEN AND PELVIS WITH IV CONTRAST CLINICAL HISTORY: Generalized weakness. Lower abdominal pain. Hematuria. COMPARISON STUDY: Multiple prior abdominal CT scans, most recently dated 03/14/2023. TECHNIQUE: Following the IV administration of 93 cc of Optiray 320, CT scan of the abdomen and pelvis is performed from the lung bases to the proximal femora. Images are reviewed in the axial, sagittal, and coronal planes. IV contrast was administered without complication. A dose lowering technique was utilized adhering to the principles of ALARA. There is streak artifact from the arms which could not be elevated above the abdomen. FINDINGS: Lung bases: The heart is top normal in size and without pericardial effusion. The coronary arteries are densely calcified. There is lipomatous hypertrophy of the interatrial septum. A small hiatal hernia is noted. The lung bases are clear noting dependent scarring/atelectasis. Liver: The contrast-enhanced liver is enlarged, measuring 19.1 cm in length. The liver is otherwise normal in contour and attenuation. There is mild intrahepatic biliary ductal dilatation. The hepatic veins and portal veins are patent. Gallbladder: Surgically absent and clips in the gallbladder fossa. The common bile duct is dilated, measuring up to 11 mm. This is similar to previous. Spleen: Normal in size and attenuation. Pancreas: Unremarkable. Adrenal glands: Unremarkable. Kidneys: The contrast enhanced kidneys are normal in size and without hydronephrosis. The kidneys enhance symmetrically. Abdominal vasculature: The abdominal aorta is normal in course and caliber noting moderate atherosclerotic calcification. Bowel: There is mild to moderate colonic fecal retention. No bowel obstruction is seen. The appendix is well-visualized and normal. Peritoneum: There is no intraperitoneal free air or abdominal ascites. Postsurgical change is noted in the ventral wall of the pelvis. Lymphadenopathy: None. Pelvic viscera: The bladder is decompressed by a Hirsch catheter. The bladder wall is thickened and hyperemic. There is mild pericystic infiltration. The uterus is surgically absent. No adnexal lesion is seen. Skeletal structures: The skeletal structures are osteopenic. The skeletal structures are osteopenic. There is mild lumbosacral spondylosis. No lytic or blastic lesions are seen. Degenerative sclerosis is noted in the left sacroiliac joint. IMPRESSION: 1. The bladder is decompressed around a Hirsch catheter with evidence of cystitis. Correlate with clinical findings and urinalysis. 2. Hepatomegaly. 3. Additional findings as above. Chest X-Ray 06/14/23 10:02 XR chest 1V portable CLINICAL HISTORY: weakness COMPARISON STUDY: Chest radiograph February 11, 2023. FINDINGS: Patient is rotated. Lung volumes are normal. Lungs are clear. There is no pneumothorax or pleural effusion. Cardiac size is stable. Mediastinal contours are normal. There is no evidence for pulmonary edema. IMPRESSION: No acute cardiopulmonary findings. Head CT 06/14/23 10:02 CT OF THE HEAD WITHOUT CONTRAST CLINICAL HISTORY: Altered mental status. COMPARISON STUDY: Head CT February 25, 2022. CT DOSE: 2395.85 mGy.cm TECHNIQUE: Helical axial images of the head were obtained without IV contrast. Automated exposure control was utilized for the study. A dose lowering technique was utilized adhering to the principles of ALARA. FINDINGS: No acute intracranial hemorrhage, midline shift or mass effect is present. Mild white matter hypodensities are unchanged and favor small vessel disease. The ventricular system is unremarkable. The basal cisterns are patent. No extra-axial collections are present. There are no findings to suggest acute dural sinus thrombosis or acute territorial infarct. No significant calvarial abnormalities are present. Visualized portions of the sinuses and mastoid air c ells are clear. IMPRESSION: No acute intracranial findings. Medications Administered Discontinued Medications Albuterol (Albut/Ipratrop 3mg/0.5mg Neb 3 Ml Vial) 3 ml NEB NOW STA; Protocol Stop: 06/14/23 12:37 Last Admin: 06/14/23 13:03 Dose: 3 ml Documented By: ISABELL Ceftriaxone Sodium (Rocephin) 2,000 mg in 70 mls @ 140 mls/hr IV NOW STA Stop: 06/14/23 12:08 Last Infusion: 06/14/23 12:20 Dose: 0 mls/hr Documented By: Admin: 06/14/23 11:55 Dose: 140 mls/hr Documented By: ISABELL Ioversol (Optiray 320 100ml) 93 ml IV ONCE ONE Stop: 06/14/23 11:49 Last Admin: 06/14/23 11:48 Dose: 93 ml Documented By: HUSSEIN Code Status & VTE Plan VTE Prophylaxis Plan VTE Prophylaxis will be ordered: Yes Supervising Physician Co-Signing Physician Notes I have seen and examined the patient and have discussed the case with the provider above. I agree with the assessment and plan as stated with the following exceptions. 67 yo diabetic female presents with significant lethargy and weakness. She reports significant pain in her urine "for weeks." She is lethargic and on BIPAP limiting the history, but is able to wake up to physical and verbal stimulus and is oriented. She reports pain all over from the CT scanner. She reports being a smoker and having COPD, but denies any issues with her breathing lately. Denies any coughing, fevers, chills or other issues. She is on BIPAP, lethargic, pupils are round and equal bilaterally, lungs are CTAB without wheezing, crackles or rales. Cardiac exam reveals S1/2 heard without murmurs and there is no peripheral edema. She is morbidly obese. Moving all extremities equally. Reports dysuria. Labwork/imaging/EKG reviewed and as noted above. 1. Acute metabolic encephalopathy 2. Hypercarbia 3. UTI without sepsis 4. COPD, active smoker 5. Schizophrenia 6. morbid obesity She is on several sedating medications to treat her psychiatric disorder including Cogentin, Buspar, Clonazepam, Divalproex, Gabapentin, Quietapine. VBG revealed pH 7.29 with pCO2 level elevated 58. She was placed on BIPAP in the ER to help correct her acidosis and hypercarbia. Will repeat ABG in a few hours. It is reassuring that she is able to orient and follow instructions. Valproic acid level checked and mildly elevated but not to explain symptoms per ER provider. Agree with ceftriaxone to treat UTI. CXR without evidence of pn eumonia and no evidence of sepsis with a normal CBC. No significant renal dysfunction or severe electrolyte abnormalities except for a Mg of 1.6. Negative troponin and doubt ACS. TSH normal. CT head reveals no acute intracranial abnormality. Admit to PCU. It seems her infection has been going on for some time now, likely contributing to her current picture in addition to chronic use of mood altering medications. Would hold scheduled clonazepam 1mg PO TID until she is more awake and off BIPAP. Monitor closely for any signs/symptoms of benzo withdrawal. DO Evan Update: she was later evaluated this evening and was off BIPAP. She was mentating clearly and was no longer somnolent. She reported feeling better and her pain was improved. Home clonazepam PRN was restarted. Cont other home meds as noted above. PT/OT to assess. sms (5) Schizoaffective disorder Schizoaffective disorder type: depressive Qualified Code(s): F25.1 - Schizoaffective disorder, depressive type
--- NOTE | 2023-06-14 13:47 | Communication Note ---
Date of Service: June 14, 2023 ATTENDING ADDENDUM TO H&P: 67 yo diabetic female presents with significant lethargy and weakness. She reports significant pain in her urine "for weeks." She is lethargic and on BIPAP limiting the history, but is able to wake up to physical and verbal stimulus and is oriented. She reports pain all over from the CT scanner. She reports being a smoker and having COPD, but denies any issues with her breathing lately. Denies any coughing, fevers, chills or other issues. She is on BIPAP, lethargic, pupils are round and equal bilaterally, lungs are CTAB without wheezing, crackles or rales. Cardiac exam reveals S1/2 heard without murmurs and there is no peripheral edema. She is morbidly obese. Moving all extremities equally. Reports dysuria. Labwork/imaging/EKG reviewed 1. Acute metabolic encephalopathy 2. Hypercarbia 3. UTI without sepsis 4. COPD, active smoker 5. Schizophrenia 6. morbid obesity She is on several sedating medications to treat her psychiatric disorder including Cogentin, Buspar, Clonazepam, Divalproex, Gabapentin, Quietapine. VBG revealed pH 7.29 with pCO2 level elevated 58. She was placed on BIPAP in the ER to help correct her acidosis and hypercarbia. Will repeat ABG in a few hours. It is reassuring that she is able to orient and follow instructions. Valproic acid level checked and mildly elevated but not to explain symptoms per ER provider. Agree with ceftriaxone to treat UTI. CXR without evidence of pneumonia and no evidence of sepsis with a normal CBC. No significant renal dysfunction or severe electrolyte abnormalities except for a Mg of 1.6. Negative troponin and doubt ACS. TSH normal. CT head reveals no acute intracranial abnormality. Admit to PCU. It seems her infection has been going on for some time now, likely contributing to her current picture in addition to chronic use of mood altering medications. Would hold scheduled clonazepam 1mg PO TID until she is more awake and off BIPAP. Monitor closely for any signs/symptoms of benzo withdrawal. DO Evan
[2023-06-14] MEDS: PHENAZOPYRIDINE HCL 200 MG TAB PO STA ×2 (14:20→14:29)
[2023-06-14] MEDS ORDERED: MAGNESIUM SULFATE / D5W 1 GM/100 ML BAG IV ONE (14:49)
[2023-06-14] MEDS ORDERED: ACETAMINOPHEN 1,000 MG/100 ML VIAL IV STA (15:31)
[2023-06-14] MEDS ORDERED: GLUCAGON FOR INJ 1 MG VIAL SQ PRN (16:05)
[2023-06-14] MEDS ORDERED: CARBOHYDRATES FOR HYPOGLYCEMIA PO PRN (16:05)
[2023-06-14] MEDS ORDERED: DEXTROSE 50% 50 ML SYRINGE IV PRN (16:05)
[2023-06-14] MEDS ORDERED: GLUCOSE 40% GEL 15 GM TUBE PO PRN (16:05)
[2023-06-14] MEDS ORDERED: GLUCOSE 10 TAB/TUBE PO PRN (16:05)
[2023-06-14] MEDS: INSULIN ASPART PER UNIT CHARGE SC SCH ×2 (17:43→20:46)
[2023-06-14] MEDS: GABAPENTIN 100 MG CAP PO SCH ×2 (17:50→20:45)
[2023-06-14] MEDS: RIVAROXABAN 20 MG TAB PO SCH (17:51)
[2023-06-14 19:39] LABS: HCO3 ABG 27 mmol/L (19-24); Oxygen Saturation ABG 97.5 % (90-95); PCO2 ABG 44 mmHg (35-46); PO2 ABG 85 mmHg (80-95)
[2023-06-14 19:40] LABS: Allen Test POS (Pos)
[2023-06-14] MEDS: rOPINIRole HCL 0.25 MG TABLET PO SCH (20:45)
[2023-06-14] MEDS: busPIRone 15 MG TAB PO SCH (20:46)
[2023-06-14] MEDS: CYANOCOBALAMIN (B-12) 500 MCG TABLET PO SCH (20:46)
[2023-06-14] MEDS: FAMOTIDINE 20 MG TAB PO SCH (20:46)
[2023-06-14] MEDS: THIAMINE HCL 100 MG TAB PO SCH (20:46)
[2023-06-14] MEDS: BENZTROPINE MESYLATE 0.5 MG TAB PO SCH (20:46)
[2023-06-14] MEDS: QUEtiapine FUMARATE 200 MG TAB PO SCH (20:46)
[2023-06-14] MEDS ORDERED: DIVALPROEX EXTENDED RELEASE 500 MG TAB PO SCH (21:00)
[2023-06-14] MEDS ORDERED: clonazePAM 1 MG TAB PO PRN (22:24)
[2023-06-15 07:24] LABS: Basophils # (auto) 0.05 K/uL (0-0.2); Basophils % (auto) 0.6 %; Eosinophils # (auto) 0.16 K/uL (0-0.50); Hemoglobin 12.7 g/dl (12.0-16.0); Immature Granulocytes # (auto) 0.06 K/uL (0.01-0.20); Immature Granulocytes % (auto) 0.7 %; Lymphocytes # (auto) 2.61 K/uL (1.2-3.4); Lymphocytes % (auto) 32.3 %; Mean Corpuscular Hemoglobin 31.9 pg (25.0-34.0); Mean Corpuscular Hgb Conc 35.3 g/dL (32.0-36.0); Mean Corpuscular Volume 90.5 fL (80.0-100.0); Mean Platelet Volume 9.7 fL (9.4-12.4); Monocytes # (auto) 0.77 K/uL (0.11-0.59); Monocytes % (auto) 9.5 %; Neutrophils # (auto) 4.43 K/uL (1.40-6.50); Neutrophils % (auto) 54.9 %; Platelet Count 184 K/uL (130-400); RDW Coefficient of Variation 11.8 % (11.5-14.5); RDW Standard Deviation 39.5 fL (36.4-46.3); Red Blood Count 3.98 M/uL (4.20-5.40); White Blood Count 8.08 K/ul (4.8-10.8)
[2023-06-15 07:33] LABS: Calcium 9.3 mg/dl (8.6-10.3); Creatinine Clr Calc Pharmacy 87.3 ml/min; Est GFR (African American) 105.4 ml/min; Est GFR (Non-African American) 90.9 ml/min; Magnesium 1.8 mg/dl (1.7-2.4); Potassium 4.6 mmol/L (3.5-5.1)
[2023-06-15 08:04] LABS: Estimated Average Glucose 140 mg/dl; Hemoglobin A1C 6.5 % (4.5-5.6)
[2023-06-15] MEDS: INSULIN ASPART PER UNIT CHARGE SC SCH ×4 (08:13→21:27)
[2023-06-15] MEDS: GABAPENTIN 100 MG CAP PO SCH ×3 (08:19→20:24)
[2023-06-15] MEDS: busPIRone 15 MG TAB PO SCH ×3 (08:20→20:25)
[2023-06-15] MEDS: THIAMINE HCL 100 MG TAB PO SCH ×2 (08:20→20:27)
[2023-06-15] MEDS: FAMOTIDINE 20 MG TAB PO SCH ×2 (08:20→20:26)
[2023-06-15] MEDS: BENZTROPINE MESYLATE 0.5 MG TAB PO SCH ×2 (08:20→20:27)
[2023-06-15] MEDS: ESCITALOPRAM OXALATE 20 MG TAB PO SCH (08:20)
[2023-06-15] MEDS: LORATADINE 10 MG TAB PO SCH (08:20)
[2023-06-15] MEDS: CYANOCOBALAMIN (B-12) 500 MCG TABLET PO SCH ×2 (08:20→20:26)
[2023-06-15] MEDS: PANTOprazole 40 MG TAB PO SCH (08:20)
[2023-06-15] MEDS ORDERED: cefTRIAXone SODIUM 2,000 MG in DEXTROSE 5% 50 ML IV SCH (11:00)
[2023-06-15 11:53] LABS: A calco-baum cmplx NotReported Not Detected (NotDetected); Bact fragilis Not Reported Not Detected (NotDetected); C auris Not Reported Not Detected (NotDetected); Calbicans Not Reported Not Detected (NotDetected); Candida glabrata Not Reported Not Detected (NotDetected); Candida krusei Not Reported Not Detected (NotDetected); Cneoformans/gatti Not Reported Not Detected (NotDetected); Cparapsilosis Not Reported Not Detected (NotDetected); Ctropicalis Not Reported Not Detected (NotDetected); E cloacae compx Not Reported Not Detected (NotDetected); Efaecalis Not Reported Not Detected (NotDetected); Efaecium Not Reported Not Detected (NotDetected); Enterobacterales Not Reported Not Detected (NotDetected); Escherichia coli Not Reported Not Detected (NotDetected); H influenzae Not Reported Not Detected (NotDetected); K aerogenes Not Reported Not Detected (NotDetected); Koxytoca Not Reported Not Detected (NotDetected); Kpneumoniae grp Not Reported Not Detected (NotDetected); Lmonocyt Not Reported Not Detected (NotDetected); N meningitidis Not Reported Not Detected (NotDetected); P aeruginosa Not Reported Not Detected (NotDetected); Proteus spp Not Reported Not Detected (NotDetected); Salmonella spp Not Reported Not Detected (NotDetected); Smarcescens Not Reported Not Detected (NotDetected); Staph lugdunensis Not Reported Not Detected (NotDetected); Staph spp. Not Reported DETECTED (NotDetected); Staphaureus Not Reported Not Detected (NotDetected); Staphepi Not Reported DETECTED (NotDetected); Staphylococcus spp. DETECTED (NotDetected); Stenmaltophilia Not Reported Not Detected (NotDetected); Strep agal(GrpB) Not Reported Not Detected (NotDetected); Strep pneum Not Reported Not Detected (NotDetected); Strep pyog (GrpA) Not Reported Not Detected (NotDetected); Strep spp Not Reported Not Detected (NotDetected)
[2023-06-15 12:08] LABS: Staphylococcus epidermidis DETECTED (NotDetected); mecAC Resistant Gene DETECTED (NotDetected)
[2023-06-15] MEDS ORDERED: VANCOMYCIN CONSULT ACTIVE PRN (12:18)
[2023-06-15] MEDS ORDERED: VANCOMYCIN HCL 1,000 MG in SODIUM CHLORIDE 0.9% 250 ML IV STA (12:18)
[2023-06-15] MEDS ORDERED: VANCOMYCIN HCL 2,000 MG in SODIUM CHLORIDE 0.9% 500 ML IV ONE (12:45)
[2023-06-15] MEDS: ACETAMINOPHEN 325 MG TAB PO PRN ×2 (14:18→20:23)
--- NOTE | 2023-06-15 15:15 | Pharmacy Report ---
Pharmacy PK ABX Note - Date of Service June 15, 2023 - Assessment and Plan Assessment 67 year old F receiving vancomcyin for treatment of bacteremia, ceftriaxone for treatment of UTI. Pertinent microbiologic data includes: gram negative bacilli in urine culture. Blood cultures 1/4 positive for gram positive cocci (MRSE identified on biofire). Plan Vancomycin * Loading dose: 2000 mg IV x 1 * Maintenance dose: 1500 mg IV every 18 hours * Regimen is predicted to achieve target AUC/MATTY of 400-600 mg/L.hr * Random level to be ordered if vancomycin continued > 48 hours. Pharmacy will continue to follow and will adjust dose/frequency as necessary. Kaycee cortez. Pharmacy has transitioned to AUC monitoring for vancomycin. AUC/MATTY is the preferred PK/PD target and is associated with decreased risk of nephrotoxicity compared to traditional trough targets.
[2023-06-15] MEDS: RIVAROXABAN 20 MG TAB PO SCH (17:54)
--- NOTE | 2023-06-15 19:01 | Hospitalist Progress Note ---
Date of Service June 15, 2023 Assessment & Plan (1) Acute metabolic encephalopathy: Plan: 67 y/o female with a history of DM2, schizoaffective disorder, GERD, hypothyroid, prior PE, chronic AC with Xarelto, prior UTIs, and chronic intermittent N/V who presented to the ED today via EMS with generalized weakness and UTI symptoms. Drowsy and lethargic in the ED but is able to answer some basic history questions. Started on ceftriaxone in the ED for the UTI. Labs in the ED showed a VBG with a pH of 7.29 and CO2 58 so pt was started on a trial of BiPAP for hypercarbia in hopes that this would improve her mental status. Likely due to hypercapnea and UTI Mental status appears back to baseline (2) Acute UTI: Plan: See plan for #1 - ceftriaxone, await culture Blood cultures +GPC, bio fire +staph epi. Possibly contaminant. Vancomycin added today continue for now pending blood cultures (3) Hypercarbia: (4) DM II (diabetes mellitus, type II), controlled: Plan: Hold Metformin Insulin sliding scale BSG ACHS Diabetic diet (5) Schizoaffective disorder: Plan: Klonopin held on admisson due to drowsiness which is resolved. To avoid withdrawal--will resume Klonopin at lower dose Continue other medications (6) History of pulmonary embolism: Plan: Unclear how significant hematuria noted at home was but no significant anemia on labs in the ED - will continue Xarelto and monitor Patient complains of bilateral leg pain. will check LE U/s to evaluate for DVT. Although she is supposed to be on Xarelto, I am uncertain of her compliance (7) GERD (gastroesophageal reflux disease): Plan: Continue famotidine Plan DVT ppx- Xarelto Admission and Anticipated Discharge Date Admission Date: June 14, 2023 Subjective Patient feels better Remains on 2L NC Afebrile Reports leg pain, earlier per nursing was complaining of pain with banks catheter Review of Systems Review of Systems: as above Physical Exam Physical Exam: appears chronically ill, older than stated age Respiratory: No wheezing/rhonchi/rales Cardiovascular: regular rate and rhythm, no murmurs/rubs Gastrointestinal (Abdomen): soft, non tender Musculoskeletal: no edema Neurologic: awake, alert, answers questions appropriately Results & Data Results & Data Vital Signs (Past 12 Hours) Vital Signs Temp Pulse Pulse Resp BP Pulse Ox O2 Del Method 06/15/23 15:21 36.9 C 71 20 98/62 L 95 Nasal Cannula 06/15/23 15:03 78 06/15/23 11:37 36.6 C 78 20 93/60 L 93 Room Air 06/15/23 10:31 69 06/15/23 08:25 Nasal Cannula 06/15/23 07:36 36.9 C 77 20 96/65 L 95 Room Air O2 Flow Rate 06/15/23 15:21 2 06/15/23 15:03 06/15/23 11:37 06/15/23 10:31 06/15/23 08:25 2 06/15/23 07:36 (5) Schizoaffective disorder Schizoaffective disorder type: depressive Qualified Code(s): F25.1 - Schizoaffective disorder, depressive type
[2023-06-15] MEDS: PHENAZOPYRIDINE HCL 100 MG TAB PO PRN (20:24)
[2023-06-15] MEDS: QUEtiapine FUMARATE 200 MG TAB PO SCH (20:26)
[2023-06-15] MEDS: rOPINIRole HCL 0.25 MG TABLET PO SCH (20:27)
[2023-06-16] MEDS ORDERED: VANCOMYCIN HCL 1,500 MG in SODIUM CHLORIDE 0.9% 500 ML IV SCH (02:00)
--- NOTE | 2023-06-16 05:51 | Electrocardiogram Report ---
Test Reason : Blood Pressure : / mmHG Vent. Rate : 077 BPM Atrial Rate : 077 BPM P-R Int : 178 ms QRS Dur : 140 ms QT Int : 422 ms P-R-T Axes : 041 111 007 degrees QTc Int : 477 ms Normal sinus rhythm Right bundle branch block Abnormal ECG When compared with ECG of 14-MAR-2023 07:54, No significant change was found Confirmed by Cruzito Martinez ([id number]) on 06/16/2023 5:51:21 AM Referred By: Confirmed By:Cruzito Martinez
[2023-06-16 06:40] LABS: Hematocrit (blood only) 35.3 % (37.0-47.0); Hemoglobin 12.1 g/dl (12.0-16.0); Mean Corpuscular Hemoglobin 32.2 pg (25.0-34.0); Mean Corpuscular Hgb Conc 34.3 g/dL (32.0-36.0); Mean Corpuscular Volume 93.9 fL (80.0-100.0); Mean Platelet Volume 9.3 fL (9.4-12.4); Platelet Count 163 K/uL (130-400); RDW Coefficient of Variation 11.8 % (11.5-14.5); RDW Standard Deviation 40.2 fL (36.4-46.3); Red Blood Count 3.76 M/uL (4.20-5.40); White Blood Count 6.64 K/ul (4.8-10.8)
--- NOTE | 2023-06-16 06:41 | Ultrasound Report ---
BILATERAL LOWER EXTREMITY VENOUS DOPPLER HISTORY: Acute pain and swelling of the lower legs evaluate for DVT. patient c/o pain COMPARISON STUDY: None. FINDINGS: There is normal compressibility, flow, and augmentation within the bilateral lower extremit y deep venous systems. Subcutaneous edema. IMPRESSION: No DVT within the right or left lower extremity. ACT 112: Negative or not required by law. Electronically signed by: Altaf Lofton M.D. 06/16/2023 6:39 AM
[2023-06-16 06:58] LABS: BUN Creatinine Ratio 14.7 (10-20); Calcium 9.1 mg/dl (8.6-10.3); Creatinine Clr Calc Pharmacy 82.1 ml/min; Est GFR (African American) 96.9 ml/min; Est GFR (Non-African American) 83.6 ml/min; Potassium 4.7 mmol/L (3.5-5.1)
[2023-06-16] MEDS: SACCHAROMYCES BOULARDII 250 MG CAP PO SCH (08:01)
[2023-06-16] MEDS: FAMOTIDINE 20 MG TAB PO SCH ×2 (08:01→21:06)
[2023-06-16] MEDS: CYANOCOBALAMIN (B-12) 500 MCG TABLET PO SCH ×2 (08:01→21:04)
[2023-06-16] MEDS: THIAMINE HCL 100 MG TAB PO SCH ×2 (08:01→21:05)
[2023-06-16] MEDS: PANTOprazole 40 MG TAB PO SCH (08:01)
[2023-06-16] MEDS: PHENAZOPYRIDINE HCL 100 MG TAB PO PRN ×2 (08:01→21:03)
[2023-06-16] MEDS: busPIRone 15 MG TAB PO SCH ×3 (08:02→21:04)
[2023-06-16] MEDS: ESCITALOPRAM OXALATE 20 MG TAB PO SCH (08:02)
[2023-06-16] MEDS: LORATADINE 10 MG TAB PO SCH (08:02)
[2023-06-16] MEDS: GABAPENTIN 100 MG CAP PO SCH ×3 (08:03→21:05)
[2023-06-16] MEDS: INSULIN ASPART PER UNIT CHARGE SC SCH ×4 (08:08→21:06)
[2023-06-16] MEDS: BENZTROPINE MESYLATE 0.5 MG TAB PO SCH ×2 (08:39→21:06)
--- NOTE | 2023-06-16 10:23 | Pharmacy Report ---
Pharmacy PK ABX Note - Date of Service June 16, 2023 - Assessment and Plan Assessment 06/16: * Discussed culture/Biofire results w/ hospitalist. Keeping vancomycin for now. Additional blood cultures ordered. Plan is to d/c vanco if negative. * Ceftriaxone de-escalated to cephalexin for UTI (donahue-sensitive E.coli). * Patient is afebrile w/ no leukocytosis. Renal function appears stable. 06/15: * 67 year old F receiving vancomcyin for treatment of bacteremia, ceftriaxone for treatment of UTI. Pertinent microbiologic data includes: gram negative bacilli in urine culture. Blood cultures 11/18 positive for gram positive cocci (MRSE identified on biofire). Plan Vancomycin * Current regimen: 1500 mg IV every 18 hours * This regimen is predicted to achieve supratherapeutic AUC/MATTY > 600 mg/L.hr * Will change to 1250 mg IV q18h for predicted AUC at steady state of 541 mg/L.hr * If vancomycin is to be continued - will plan on vanco level on 06/18, or earlier pending renal function Pharmacy will continue to follow and will adjust dose/frequency as necessary. Thank you. Pharmacy has transitioned to AUC monitoring for vancomycin. AUC/MATTY is the preferred PK/PD target and is associated with decreased risk of nephrotoxicity compared to traditional trough targets.
[2023-06-16] MEDS: cephALEXin 500 MG CAP PO SCH ×2 (10:47→21:04)
[2023-06-16] MEDS: ACETAMINOPHEN 325 MG TAB PO PRN ×2 (12:23→20:30)
--- NOTE | 2023-06-16 16:21 | Hospitalist Progress Note ---
Date of Service June 16, 2023 Assessment & Plan (1) Acute metabolic encephalopathy: Plan: 67 y/o female with a history of DM2, schizoaffective disorder, GERD, hypothyroid, prior PE, chronic AC with Xarelto, prior UTIs, and chronic intermittent N/V who presented to the ED today via EMS with generalized weakness and UTI symptoms. Drowsy and lethargic in the ED but is able to answer some basic history questions. Started on ceftriaxone in the ED for the UTI. Labs in the ED showed a VBG with a pH of 7.29 and CO2 58 so pt was started on a trial of BiPAP for hypercarbia in hopes that this would improve her mental status. Secondary to increased CO2 and is complicated by UTI Mental status appears back to baseline Remains very lethargic otherwise no acute distress (2) Acute UTI: Plan: See plan for #1 - ceftriaxone, await culture Urine culture is growing pansensitive E. coli Antibiotic has been changed to oral Keflex and will be continued for about 7 to 10 days Bacteremia 1 out of 2 bottles Blood cultures +GPC, bio fire +staph epi. Possibly contaminant. Vancomycin added today continue for now pending blood cultures We will repeat blood culture if it is negative we will discontinue vancomycin (3) Hypercarbia: Plan: Likely secondary to respiratory depression could be due to polypharmacy Received BiPAP initially Now saturating normally on 1 L nasal cannula oxygen administration (4) DM II (diabetes mellitus, type II), controlled: Plan: Hold Metformin Insulin sliding scale BSG ACHS Diabetic diet (5) Schizoaffective disorder: Plan: Klonopin held on admisson due to drowsiness which is resolved. To avoid withdrawal--will resume Klonopin at lower dose Continue other medications Will decrease Depakote ER to 1000 mg at night (6) History of pulmonary embolism: Plan: Unclear how significant hematuria noted at home was but no significant anemia on labs in the ED - will continue Xarelto and monitor Patient complains of bilateral leg pain. will check LE U/s to evaluate for DVT. Although she is supposed to be on Xarelto, I am uncertain of her compliance (7) GERD (gastroesophageal reflux disease): Plan: Continue famotidine Plan DVT ppx- Xarelto Admission and Anticipated Discharge Date Admission Date: June 14, 2023 Subjective 06/16/2023 The patient was seen and examined in telemetry unit She has been weak and lethargic and does not feel good Denies any shortness of breath at rest No fever and or chills Review of Systems Review of Systems: All systems reviewed and are unremarkable except as mentioned below Physical Exam Physical Exam: Lying in bed without any acute distress Constitutional: well developed, well nourished, + ill appearing and + obese Eyes: PERRL, conjunctivae normal, anicteric sclerae ENMT: external ear and nose normal, oropharynx normal Neck: trachea midline, no thyromegaly Respiratory: no respiratory distress Auscultation: + diminished lung sounds and + crackles (Minimal crackles at the bases) Cardiovascular: Rate/Rhythm: regular rate and regular rhythm; not tachycardic Heart Sounds: normal S1 and normal S2; no murmur Extremities: + edema (Trace edema bilaterally) Gastrointestinal (Abdomen): Inspection/Auscultation: normal bowel sounds; abdomen not distended Percussion/Palpation: abdomen soft; abdomen nontender Musculoskeletal: No acute arthritis involving any joint Neurologic: Alert and awake. Generally very weak and lethargic Lymphatic: no cervical or axillary lymphadenopathy Results & Data Results & Data Vital Signs (Past 12 Hours) Vital Signs Temp Pulse Pulse Resp BP Pulse Ox O2 Del Method 06/16/23 15:45 36.6 C 63 20 105/66 95 Nasal Cannula 06/16/23 11:27 36.6 C 66 20 100/68 93 Nasal Cannula 06/16/23 09:22 69 06/16/23 08:44 Nasal Cannula 06/16/23 07:28 36.5 C 60 19 108/71 97 Nasal Cannula O2 Flow Rate 06/16/23 15:45 1 06/16/23 11:27 1 06/16/23 09:22 06/16/23 08:44 2 06/16/23 07:28 1 Laboratory Results Short CBC 06/16/23 Range/Units 06:01 WBC 6.64 (4.8-10.8) K/ul Hgb 12.1 (12.0-16.0) g/dl Hct 35.3 L (37.0-47.0) % Plt Count 163 (130-400) K/uL BMP 06/16/23 06:01 Sodium 136 Potassium 4.7 Chloride 102 Carbon Dioxide 32 BUN 11 Creatinine 0.75 Glucose 87 Calcium 9.1 Medications Administered Current Inpatient Medications Acetaminophen (Acetaminophen 325 Mg Tab) 650 mg PO Q4H PRN PRN Reason: Pain Stop: 07/15/23 13:55 Last Admin: 06/16/23 12:23 Dose: 650 mg Benztropine Mesylate (Benztropine Mesylate 0.5 Mg Tab) 0.5 mg PO BID MARY Stop: 07/14/23 20:59 Last Admin: 06/16/23 08:39 Dose: 0.5 mg Buspirone HCl (Buspirone 15 Mg Tab) 15 mg PO TID MARY Stop: 07/14/23 20:59 Last Admin: 06/16/23 15:05 Dose: 15 mg Cephalexin HCl (Cephalexin 500 Mg Cap) 500 mg PO BID MARY Stop: 06/20/23 08:59 Last Admin: 06/16/23 10:47 Dose: 500 mg Clonazepam (Clonazepam 0.5 Mg Tab) 0.5 mg PO TID PRN PRN Reason: Anxiety Stop: 07/14/23 22:23 Cyanocobalamin (Cyanocobalamin (B-12) 500 Mcg Tablet) 1,000 mcg PO BID MARY Stop: 07/14/23 20:59 Last Admin: 06/16/23 08:01 Dose: 1,000 mcg Dextrose (Dextrose 50% 50 Ml Syringe) 25 - 50 ml IV UD PRN; Protocol PRN Reason: Hypoglycemia Protocol Stop: 07/14/23 16:04 Divalproex Sodium (Divalproex Extended Release 500 Mg Tab) 1,500 mg PO HS MARY Stop: 07/14/23 20:59 Last Admin: 06/14/23 20:46 Dose: 1,500 mg Escitalopram Oxalate (Escitalopram Oxalate 20 Mg Tab) 20 mg PO QAM MARY Stop: 07/15/23 08:59 Last Admin: 06/16/23 08:02 Dose: 20 mg Famotidine (Famotidine 20 Mg Tab) 20 mg PO BID MARY Stop: 07/14/23 20:59 Last Admin: 06/16/23 08:01 Dose: 20 mg Gabapentin (Gabapentin 100 Mg Cap) 200 mg PO HS MARY Stop: 07/14/23 20:59 Last Admin: 06/15/23 20:24 Dose: 200 mg Gabapentin (Gabapentin 100 Mg Cap) 100 mg PO [id number] MARY Stop: 07/14/23 16:59 Last Admin: 06/16/23 08:03 Dose: 100 mg Glucagon (Glucagon For Inj 1 Mg Vial) 1 mg SQ UD PRN; Protocol PRN Reason: Hypoglycemia Protocol Stop: 07/14/23 16:04 Glucose (Glucose 40% Gel 15 Gm Tube) 15 - 30 gm PO UD PRN; Protocol PRN Reason: Hypoglycemia Protocol Stop: 07/14/23 16:04 Glucose (Glucose 10 Tab/Tube) 4 - 8 tab PO UD PRN; Protocol PRN Reason: Hypoglycemia Treatment Stop: 07/14/23 16:04 Vancomycin HCl 1,250 mg/ (Sodium Chloride) 275 mls @ 200 mls/hr IV Q18H [facility] Stop: 06/30/23 21:59 Insulin Aspart (Insulin Aspart Per Unit Charge) 0 units SC ACHS [facility] Stop: 07/14/23 16:29 Last Admin: 06/16/23 12:22 Dose: 11 units Loratadine (Loratadine 10 Mg Tab) 10 mg PO DAILY [facility] Stop: 07/15/23 08:59 Last Admin: 06/16/23 08:02 Dose: 10 mg Miscellaneous (Creon -- Order Awaiting Action) 1 each N/A QS [facility] Stop: 07/15/23 00:00 Last Admin: 06/16/23 09:30 Dose: Not Given Miscellaneous (Carbohydrates For Hypoglycemia ) 15 - 30 gm PO UD PRN PRN Reason: Hypoglycemia Protocol Stop: 07/14/23 16:04 Miscellaneous Information (Vancomycin Consult Active) 1 each N/A UD PRN PRN Reason: Consult Stop: 07/15/23 12:17 Pantoprazole Sodium (Pantoprazole 40 Mg Tab) 40 mg PO QAM [facility] Stop: 07/15/23 08:59 Last Admin: 06/16/23 08:01 Dose: 40 mg Phenazopyridine HCl (Phenazopyridine Hcl 100 Mg Tab) 100 mg PO TID PRN PRN Reason: dyrusia Stop: 07/15/23 13:50 Last Admin: 06/16/23 08:01 Dose: 100 mg Quetiapine Fumarate (Quetiapine Fumarate 200 Mg Tab) 400 mg PO HS [facility] Stop: 07/14/23 20:59 Last Admin: 06/15/23 20:26 Dose: 400 mg Rivaroxaban (Rivaroxaban 20 Mg Tab) 20 mg PO DAILY@1700 [facility] Stop: 07/14/23 16:59 Last Admin: 06/15/23 17:54 Dose: 20 mg Ropinirole HCl (Ropinirole Hcl 0.25 Mg Tablet) 0.5 mg PO HS MARY Stop: 07/14/23 20:59 Last Admin: 06/15/23 20:27 Dose: 0.5 mg Saccharomyces Boulardii (Saccharomyces Boulardii 250 Mg Cap) 250 mg PO DAILY MARY Stop: 07/16/23 08:59 Last Admin: 06/16/23 08:01 Dose: 250 mg Thiamine HCl (Thiamine Hcl 100 Mg Tab) 100 mg PO BID MARY Stop: 07/14/23 20:59 Last Admin: 06/16/23 08:01 Dose: 100 mg (5) Schizoaffective disorder Schizoaffective disorder type: depressive Qualified Code(s): F25.1 - Schizoaffective disorder, depressive type
[2023-06-16] MEDS: RIVAROXABAN 20 MG TAB PO SCH (17:20)
[2023-06-16] MEDS ORDERED: DIVALPROEX EXTENDED RELEASE 500 MG TAB PO SCH (21:00)
[2023-06-16] MEDS: rOPINIRole HCL 0.25 MG TABLET PO SCH (21:07)
[2023-06-16] MEDS: VANCOMYCIN HCL 1,250 MG in SODIUM CHLORIDE 0.9% 250 ML IV SCH (21:07)
[2023-06-16] MEDS: QUEtiapine FUMARATE 200 MG TAB PO SCH (21:07)
[2023-06-16] MEDS: clonazePAM 0.5 MG TAB PO PRN (22:03)
[2023-06-17 07:16] LABS: Basophils # (auto) 0.05 K/uL (0-0.2); Basophils % (auto) 0.9 %; Eosinophils # (auto) 0.18 K/uL (0-0.50); Eosinophils % (auto) 3.1 %; Hematocrit (blood only) 40.7 % (37.0-47.0); Hemoglobin 13.6 g/dl (12.0-16.0); Immature Granulocytes # (auto) 0.05 K/uL (0.01-0.20); Immature Granulocytes % (auto) 0.9 %; Lymphocytes % (auto) 46.9 %; Mean Corpuscular Hemoglobin 31.5 pg (25.0-34.0); Mean Corpuscular Hgb Conc 33.4 g/dL (32.0-36.0); Mean Corpuscular Volume 94.2 fL (80.0-100.0); Mean Platelet Volume 9.4 fL (9.4-12.4); Monocytes # (auto) 0.45 K/uL (0.11-0.59); Monocytes % (auto) 7.8 %; Neutrophils # (auto) 2.33 K/uL (1.40-6.50); Neutrophils % (auto) 40.4 %; Platelet Count 184 K/uL (130-400); RDW Coefficient of Variation 11.9 % (11.5-14.5); RDW Standard Deviation 41.1 fL (36.4-46.3); Red Blood Count 4.32 M/uL (4.20-5.40); White Blood Count 5.76 K/ul (4.8-10.8)
[2023-06-17 07:26] LABS: BUN Creatinine Ratio 18.2 (10-20); Calcium 10.1 mg/dl (8.6-10.3); Creatinine Clr Calc Pharmacy 72.1 ml/min; Est GFR (African American) 93.9 ml/min; Potassium 5.1 mmol/L (3.5-5.1)
[2023-06-17] MEDS: INSULIN ASPART PER UNIT CHARGE SC SCH ×4 (08:44→20:52)
[2023-06-17] MEDS: ESCITALOPRAM OXALATE 20 MG TAB PO SCH (08:59)
[2023-06-17] MEDS: BENZTROPINE MESYLATE 0.5 MG TAB PO SCH ×2 (09:00→20:50)
[2023-06-17] MEDS: FAMOTIDINE 20 MG TAB PO SCH ×2 (09:00→20:52)
[2023-06-17] MEDS: LORATADINE 10 MG TAB PO SCH (09:00)
[2023-06-17] MEDS: PANTOprazole 40 MG TAB PO SCH (09:01)
[2023-06-17] MEDS: THIAMINE HCL 100 MG TAB PO SCH ×2 (09:01→20:53)
[2023-06-17] MEDS: GABAPENTIN 100 MG CAP PO SCH ×3 (09:01→20:52)
[2023-06-17] MEDS: cephALEXin 500 MG CAP PO SCH ×2 (09:02→20:50)
[2023-06-17] MEDS: SACCHAROMYCES BOULARDII 250 MG CAP PO SCH (09:02)
[2023-06-17] MEDS: busPIRone 15 MG TAB PO SCH ×3 (09:02→20:50)
[2023-06-17] MEDS: CYANOCOBALAMIN (B-12) 500 MCG TABLET PO SCH ×2 (09:03→20:51)
[2023-06-17] MEDS: ACETAMINOPHEN 325 MG TAB PO PRN ×2 (13:03→20:48)
[2023-06-17] MEDS: PHENAZOPYRIDINE HCL 100 MG TAB PO PRN ×2 (14:49→20:49)
--- NOTE | 2023-06-17 16:45 | Hospitalist Progress Note ---
Date of Service June 17, 2023 Assessment & Plan (1) Acute metabolic encephalopathy: Plan: 67 y/o female with a history of DM2, schizoaffective disorder, GERD, hypothyroid, prior PE, chronic AC with Xarelto, prior UTIs, and chronic intermittent N/V who presented to the ED today via EMS with generalized weakness and UTI symptoms. Drowsy and lethargic in the ED but is able to answer some basic history questions. Started on ceftriaxone in the ED for the UTI. Labs in the ED showed a VBG with a pH of 7.29 and CO2 58 so pt was started on a trial of BiPAP for hypercarbia in hopes that this would improve her mental status. Secondary to increased CO2 and is complicated by UTI Mental status appears back to baseline Remains very lethargic otherwise no acute distress (2) Acute UTI: Plan: See plan for #1 - ceftriaxone, await culture Urine culture is growing pansensitive E. coli Antibiotic has been changed to oral Keflex and will be continued for about 7 to 10 days Denies any symptoms of UTI Bacteremia 1 out of 2 bottles Blood cultures +GPC, bio fire +staph epi. Possibly contaminant. Vancomycin added today continue for now pending blood cultures We will repeat blood culture if it is negative we will discontinue vancomycin Repeat blood cultures are negative and will discontinue vancomycin (3) Hypercarbia: Plan: Likely secondary to respiratory depression could be due to polypharmacy Received BiPAP initially Now saturating normally on 1 L nasal cannula oxygen administration Has been requiring up to 2 L to maintain saturation (4) DM II (diabetes mellitus, type II), controlled: Plan: Hold Metformin Insulin sliding scale BSG ACHS Diabetic diet (5) Schizoaffective disorder: Plan: Klonopin held on admisson due to drowsiness which is resolved. To avoid withdrawal--will resume Klonopin at lower dose Continue other medications Will decrease Depakote ER to 1000 mg at night (6) History of pulmonary embolism: Plan: Unclear how significant hematuria noted at home was but no significant anemia on labs in the ED - will continue Xarelto and monitor Patient complains of bilateral leg pain. will check LE U/s to evaluate for DVT. Although she is supposed to be on Xarelto, I am uncertain of her compliance She has been taking general to in the hospital (7) GERD (gastroesophageal reflux disease): Plan: Continue famotidine Plan DVT ppx- Xarelto Admission and Anticipated Discharge Date Admission Date: June 14, 2023 Subjective 06/16/2023 The patient was seen and examined in telemetry unit She has been weak and lethargic and does not feel good Denies any shortness of breath at rest No fever and or chills 06/17/2023 The patient was seen and examined in telemetry unit She has been stable and complains aches and pains all over and all the joints Pain medicine is controlling the pain to some extent Denies any fever and or chills Review of Systems Review of Systems: All systems reviewed and are unremarkable except as noted below Physical Exam Physical Exam: Lying in bed without any acute distress Constitutional: well developed, well nourished, + ill appearing and + obese Eyes: PERRL, conjunctivae normal, anicteric sclerae ENMT: external ear and nose normal, oropharynx normal Neck: trachea midline, no thyromegaly Respiratory: no respiratory distress Auscultation: + diminished lung sounds and + crackles (Minimal crackles at the bases) Cardiovascular: Rate/Rhythm: regular rate and regular rhythm; not tachycardic Heart Sounds: normal S1 and normal S2; no murmur Extremities: + edema (Trace edema bilaterally) Gastrointestinal (Abdomen): Inspection/Auscultation: normal bowel sounds; abdomen not distended Percussion/Palpation: abdomen soft; abdomen nontender Musculoskeletal: No acute arthritis involving any of the joint Neurologic: Alert and awake. Generally weak and lethargic Lymphatic: no cervical or axillary lymphadenopathy Results & Data Results & Data Vital Signs (Past 12 Hours) Vital Signs Temp Pulse Pulse Resp BP BP Pulse Ox 06/17/23 15:50 37.1 C 66 21 106/72 94 06/17/23 15:30 68 06/17/23 11:04 36.7 C 71 18 92/64 L 93 06/17/23 08:00 06/17/23 09:14 63 06/17/23 07:02 36.7 C 56 L 18 97/64 L 91 O2 Del Method O2 Flow Rate 06/17/23 15:50 Nasal Cannula 2 06/17/23 15:30 06/17/23 11:04 Nasal Cannula 2 06/17/23 08:00 Nasal Cannula 06/17/23 09:14 06/17/23 07:02 Nasal Cannula 2 Laboratory Results Short CBC 06/17/23 Range/Units 06:04 WBC 5.76 (4.8-10.8) K/ul Hgb 13.6 (12.0-16.0) g/dl Hct 40.7 (37.0-47.0) % Plt Count 184 (130-400) K/uL BMP 06/17/23 06:04 Sodium 141 Potassium 5.1 Chloride 105 Carbon Dioxide 33 H BUN 14 Creatinine 0.77 Glucose 85 Calcium 10.1 Medications Administered Current Inpatient Medications Acetaminophen (Acetaminophen 325 Mg Tab) 650 mg PO Q4H PRN PRN Reason: Pain Stop: 07/15/23 13:55 Last Admin: 06/17/23 13:03 Dose: 650 mg Lipase/Protease/Amylase (Pancreaze (Lipase 10,500u) Cap) 1 cap PO TIDM MARY Stop: 07/17/23 16:59 Benztropine Mesylate (Benztropine Mesylate 0.5 Mg Tab) 0.5 mg PO BID MARY Stop: 07/14/23 20:59 Last Admin: 06/17/23 09:00 Dose: 0.5 mg Buspirone HCl (Buspirone 15 Mg Tab) 15 mg PO TID MARY Stop: 07/14/23 20:59 Last Admin: 06/17/23 14:49 Dose: 15 mg Cephalexin HCl (Cephalexin 500 Mg Cap) 500 mg PO BID MARY Stop: 06/20/23 08:59 Last Admin: 06/17/23 09:02 Dose: 500 mg Clonazepam (Clonazepam 0.5 Mg Tab) 0.5 mg PO TID PRN PRN Reason: Anxiety Stop: 07/14/23 22:23 Last Admin: 06/16/23 22:03 Dose: 0.5 mg Cyanocobalamin (Cyanocobalamin (B-12) 500 Mcg Tablet) 1,000 mcg PO BID MARY Stop: 07/14/23 20:59 Last Admin: 06/17/23 09:03 Dose: 1,000 mcg Dextrose (Dextrose 50% 50 Ml Syringe) 25 - 50 ml IV UD PRN; Protocol PRN Reason: Hypoglycemia Protocol Stop: 07/14/23 16:04 Divalproex Sodium (Divalproex Extended Release 500 Mg Tab) 1,000 mg PO HS MARY Stop: 07/16/23 20:59 Escitalopram Oxalate (Escitalopram Oxalate 20 Mg Tab) 20 mg PO QAM MARY Stop: 07/15/23 08:59 Last Admin: 06/17/23 08:59 Dose: 20 mg Famotidine (Famotidine 20 Mg Tab) 20 mg PO BID MARY Stop: 07/14/23 20:59 Last Admin: 06/17/23 09:00 Dose: 20 mg Gabapentin (Gabapentin 100 Mg Cap) 200 mg PO HS MARY Stop: 07/14/23 20:59 Last Admin: 06/16/23 21:05 Dose: 200 mg Gabapentin (Gabapentin 100 Mg Cap) 100 mg PO [id number] MARY Stop: 07/14/23 16:59 Last Admin: 06/17/23 09:01 Dose: 100 mg Glucagon (Glucagon For Inj 1 Mg Vial) 1 mg SQ UD PRN; Protocol PRN Reason: Hypoglycemia Protocol Stop: 07/14/23 16:04 Glucose (Glucose 40% Gel 15 Gm Tube) 15 - 30 gm PO UD PRN; Protocol PRN Reason: Hypoglycemia Protocol Stop: 07/14/23 16:04 Glucose (Glucose 10 Tab/Tube) 4 - 8 tab PO UD PRN; Protocol PRN Reason: Hypoglycemia Treatment Stop: 07/14/23 16:04 Vancomycin HCl 1,250 mg/ (Sodium Chloride) 275 mls @ 200 mls/hr IV Q18H MARY Stop: 06/30/23 21:59 Last Infusion: 06/16/23 22:40 Dose: Infused Insulin Aspart (Insulin Aspart Per Unit Charge) 0 units SC ACHS MARY Stop: 07/14/23 16:29 Last Admin: 06/17/23 12:57 Dose: 8 units Loratadine (Loratadine 10 Mg Tab) 10 mg PO DAILY MARY Stop: 07/15/23 08:59 Last Admin: 06/17/23 09:00 Dose: 10 mg Miscellaneous (Carbohydrates For Hypoglycemia ) 15 - 30 gm PO UD PRN PRN Reason: Hypoglycemia Protocol Stop: 07/14/23 16:04 Last Admin: 06/17/23 16:17 Dose: 15 gm Miscellaneous Information (Vancomycin Consult Active) 1 each N/A UD PRN PRN Reason: Consult Stop: 07/15/23 12:17 Pantoprazole Sodium (Pantoprazole 40 Mg Tab) 40 mg PO QAM MARY Stop: 07/15/23 08:59 Last Admin: 06/17/23 09:01 Dose: 40 mg Phenazopyridine HCl (Phenazopyridine Hcl 100 Mg Tab) 100 mg PO TID PRN PRN Reason: dyrusia Stop: 07/15/23 13:50 Last Admin: 06/17/23 14:49 Dose: 100 mg Quetiapine Fumarate (Quetiapine Fumarate 200 Mg Tab) 400 mg PO HS MARY Stop: 07/14/23 20:59 Last Admin: 06/16/23 21:07 Dose: 400 mg Rivaroxaban (Rivaroxaban 20 Mg Tab) 20 mg PO DAILY@1700 [facility] Stop: 07/14/23 16:59 Last Admin: 06/16/23 17:20 Dose: 20 mg Ropinirole HCl (Ropinirole Hcl 0.25 Mg Tablet) 0.5 mg PO HS [facility] Stop: 07/14/23 20:59 Last Admin: 06/16/23 21:07 Dose: 0.5 mg Saccharomyces Boulardii (Saccharomyces Boulardii 250 Mg Cap) 250 mg PO DAILY MARY Stop: 07/16/23 08:59 Last Admin: 06/17/23 09:02 Dose: 250 mg Thiamine HCl (Thiamine Hcl 100 Mg Tab) 100 mg PO BID MARY Stop: 07/14/23 20:59 Last Admin: 06/17/23 09:01 Dose: 100 mg (5) Schizoaffective disorder Schizoaffective disorder type: depressive Qualified Code(s): F25.1 - Schizoaffective disorder, depressive type
[2023-06-17] MEDS: VANCOMYCIN HCL 1,250 MG in SODIUM CHLORIDE 0.9% 250 ML IV SCH (17:04)
[2023-06-17] MEDS: PANCREAZE (LIPASE 10,500U) CAP PO SCH (17:44)
[2023-06-17] MEDS: RIVAROXABAN 20 MG TAB PO SCH (17:46)
[2023-06-17] MEDS: QUEtiapine FUMARATE 200 MG TAB PO SCH (20:53)
[2023-06-17] MEDS: rOPINIRole HCL 0.25 MG TABLET PO SCH (20:54)
[2023-06-17] MEDS: clonazePAM 0.5 MG TAB PO PRN (23:02)
[2023-06-18 06:10] LABS: Creatinine Clr Calc Pharmacy 76.5 ml/min; Est GFR (Non-African American) 78.6 ml/min
[2023-06-18] MEDS: INSULIN ASPART PER UNIT CHARGE SC SCH ×4 (08:13→20:42)
[2023-06-18] MEDS: SACCHAROMYCES BOULARDII 250 MG CAP PO SCH (09:58)
[2023-06-18] MEDS: ESCITALOPRAM OXALATE 20 MG TAB PO SCH (09:58)
[2023-06-18] MEDS: PANCREAZE (LIPASE 10,500U) CAP PO SCH ×3 (09:58→17:51)
[2023-06-18] MEDS: BENZTROPINE MESYLATE 0.5 MG TAB PO SCH ×2 (09:59→20:15)
[2023-06-18] MEDS: busPIRone 15 MG TAB PO SCH ×3 (09:59→20:14)
[2023-06-18] MEDS: THIAMINE HCL 100 MG TAB PO SCH ×2 (09:59→20:15)
[2023-06-18] MEDS: FAMOTIDINE 20 MG TAB PO SCH ×2 (10:00→20:14)
[2023-06-18] MEDS: CYANOCOBALAMIN (B-12) 500 MCG TABLET PO SCH ×2 (10:00→20:13)
[2023-06-18] MEDS: PANTOprazole 40 MG TAB PO SCH (10:00)
[2023-06-18] MEDS: LORATADINE 10 MG TAB PO SCH (10:00)
[2023-06-18] MEDS: GABAPENTIN 100 MG CAP PO SCH ×3 (10:01→20:13)
[2023-06-18] MEDS: cephALEXin 500 MG CAP PO SCH ×2 (10:01→20:15)
--- NOTE | 2023-06-18 15:26 | Hospitalist Progress Note ---
Date of Service June 18, 2023 Assessment & Plan (1) Acute metabolic encephalopathy: Plan: 67 y/o female with a history of DM2, schizoaffective disorder, GERD, hypothyroid, prior PE, chronic AC with Xarelto, prior UTIs, and chronic intermittent N/V who presented to the ED today via EMS with generalized weakness and UTI symptoms. Drowsy and lethargic in the ED but is able to answer some basic history questions. Started on ceftriaxone in the ED for the UTI. Labs in the ED showed a VBG with a pH of 7.29 and CO2 58 so pt was started on a trial of BiPAP for hypercarbia in hopes that this would improve her mental status. Secondary to increased CO2 and is complicated by UTI Mental status appears back to baseline Remains very lethargic otherwise no acute distress (2) Acute UTI: Plan: See plan for #1 - ceftriaxone, await culture Urine culture is growing pansensitive E. coli Antibiotic has been changed to oral Keflex and will be continued for about 7 to 10 days Denies any symptoms of UTI Will finish that antibiotic for UTI Bacteremia 1 out of 2 bottles Blood cultures +GPC, bio fire +staph epi. Possibly contaminant. Vancomycin added today continue for now pending blood cultures We will repeat blood culture if it is negative we will discontinue vancomycin Repeat blood cultures are negative and will discontinue vancomycin Vancomycin has been discontinued (3) Hypercarbia: Plan: Likely secondary to respiratory depression could be due to polypharmacy Received BiPAP initially Now saturating normally on 1 L nasal cannula oxygen administration Has been requiring up to 2 L to maintain saturation Saturating normally on room air (4) DM II (diabetes mellitus, type II), controlled: Plan: Hold Metformin Insulin sliding scale BSG ACHS Diabetic diet (5) Schizoaffective disorder: Plan: Klonopin held on admisson due to drowsiness which is resolved. To avoid withdrawal--will resume Klonopin at lower dose Continue other medications Will decrease Depakote ER to 1000 mg at night (6) History of pulmonary embolism: Plan: Unclear how significant hematuria noted at home was but no significant anemia on labs in the ED - will continue Xarelto and monitor Patient complains of bilateral leg pain. will check LE U/s to evaluate for DVT. Although she is supposed to be on Xarelto, I am uncertain of her compliance She has been taking Xarelto regularly in the hospital (7) GERD (gastroesophageal reflux disease): Plan: Continue famotidine Plan DVT ppx- Xarelto Admission and Anticipated Discharge Date Admission Date: June 14, 2023 Subjective 06/16/2023 The patient was seen and examined in telemetry unit She has been weak and lethargic and does not feel good Denies any shortness of breath at rest No fever and or chills 06/17/2023 The patient was seen and examined in telemetry unit She has been stable and complains aches and pains all over and all the joints Pain medicine is controlling the pain to some extent Denies any fever and or chills 06/18/2023 The patient was seen and examined in telemetry unit She remains stable but weak and lethargic Complains to have nonspecific pain all over No acute arthritis, no chest pain or palpitation or shortness of breath Review of Systems Review of Systems: All systems reviewed and are unremarkable except as noted below Physical Exam Physical Exam: Lying in bed without any acute distress Constitutional: well developed, well nourished, + ill appearing and + obese Eyes: PERRL, conjunctivae normal, anicteric sclerae ENMT: external ear and nose normal, oropharynx normal Neck: trachea midline, no thyromegaly Respiratory: no respiratory distress Auscultation: + diminished lung sounds and + crackles (Minimal crackles at the bases) Cardiovascular: Rate/Rhythm: regular rate and regular rhythm; not tachycardic Heart Sounds: normal S1 and normal S2; no murmur Extremities: + edema (Trace edema bilaterally) Gastrointestinal (Abdomen): Inspection/Auscultation: normal bowel sounds; abdomen not distended Percussion/Palpation: abdomen soft; abdomen nontender Musculoskeletal: No acute arthritis involving any of the joint Neurologic: Alert and awake Lymphatic: no cervical or axillary lymphadenopathy Results & Data Results & Data Vital Signs (Past 12 Hours) Vital Signs Temp Pulse Pulse Resp BP Pulse Ox O2 Del Method 06/18/23 08:00 Nasal Cannula 06/18/23 12:00 37 C 89 18 103/59 L 97 Room Air 06/18/23 09:47 65 06/18/23 08:00 36.7 C 78 16 124/68 97 Room Air 06/18/23 03:41 36.8 C 65 16 108/65 95 Nasal Cannula O2 Flow Rate 06/18/23 08:00 2 0804/23 12:00 06/18/23 09:47 06/18/23 08:00 06/18/23 03:41 2.0 Laboratory Results BMP 06/18/23 05:30 Creatinine 0.79 Medications Administered Current Inpatient Medications Acetaminophen (Acetaminophen 325 Mg Tab) 650 mg PO Q4H PRN PRN Reason: Pain Stop: 07/15/23 13:55 Last Admin: 06/17/23 20:48 Dose: 650 mg Lipase/Protease/Amylase (Pancreaze (Lipase 10,500u) Cap) 1 cap PO TIDM MARY Stop: 07/17/23 16:59 Last Admin: 06/18/23 12:01 Dose: 1 cap Benztropine Mesylate (Benztropine Mesylate 0.5 Mg Tab) 0.5 mg PO BID MARY Stop: 07/14/23 20:59 Last Admin: 06/18/23 09:59 Dose: 0.5 mg Buspirone HCl (Buspirone 15 Mg Tab) 15 mg PO TID MARY Stop: 07/14/23 20:59 Last Admin: 06/18/23 15:06 Dose: 15 mg Cephalexin HCl (Cephalexin 500 Mg Cap) 500 mg PO BID MARY Stop: 06/20/23 08:59 Last Admin: 06/18/23 10:01 Dose: 500 mg Clonazepam (Clonazepam 0.5 Mg Tab) 0.5 mg PO TID PRN PRN Reason: Anxiety Stop: 07/14/23 22:23 Last Admin: 06/17/23 23:02 Dose: 0.5 mg Cyanocobalamin (Cyanocobalamin (B-12) 500 Mcg Tablet) 1,000 mcg PO BID MARY Stop: 07/14/23 20:59 Last Admin: 06/18/23 10:00 Dose: 1,000 mcg Dextrose (Dextrose 50% 50 Ml Syringe) 25 - 50 ml IV UD PRN; Protocol PRN Reason: Hypoglycemia Protocol Stop: 07/14/23 16:04 Divalproex Sodium (Divalproex Extended Release 500 Mg Tab) 1,000 mg PO HS MARY Stop: 07/16/23 20:59 Escitalopram Oxalate (Escitalopram Oxalate 20 Mg Tab) 20 mg PO QAM MARY Stop: 07/15/23 08:59 Last Admin: 06/18/23 09:58 Dose: 20 mg Famotidine (Famotidine 20 Mg Tab) 20 mg PO BID MARY Stop: 07/14/23 20:59 Last Admin: 06/18/23 10:00 Dose: 20 mg Gabapentin (Gabapentin 100 Mg Cap) 200 mg PO HS MARY Stop: 07/14/23 20:59 Last Admin: 06/17/23 20:52 Dose: 200 mg Gabapentin (Gabapentin 100 Mg Cap) 100 mg PO [id number] MARY Stop: 07/14/23 16:59 Last Admin: 06/18/23 10:01 Dose: 100 mg Glucagon (Glucagon For Inj 1 Mg Vial) 1 mg SQ UD PRN; Protocol PRN Reason: Hypoglycemia Protocol Stop: 07/14/23 16:04 Glucose (Glucose 40% Gel 15 Gm Tube) 15 - 30 gm PO UD PRN; Protocol PRN Reason: Hypoglycemia Protocol Stop: 07/14/23 16:04 Glucose (Glucose 10 Tab/Tube) 4 - 8 tab PO UD PRN; Protocol PRN Reason: Hypoglycemia Treatment Stop: 07/14/23 16:04 Insulin Aspart (Insulin Aspart Per Unit Charge) 0 units SC ACHS [facility] Stop: 07/14/23 16:29 Last Admin: 06/18/23 11:59 Dose: 5 units Loratadine (Loratadine 10 Mg Tab) 10 mg PO DAILY MARY Stop: 07/15/23 08:59 Last Admin: 06/18/23 10:00 Dose: 10 mg Miscellaneous (Carbohydrates For Hypoglycemia ) 15 - 30 gm PO UD PRN PRN Reason: Hypoglycemia Protocol Stop: 07/14/23 16:04 Last Admin: 06/17/23 16:17 Dose: 15 gm Pantoprazole Sodium (Pantoprazole 40 Mg Tab) 40 mg PO QAM MARY Stop: 07/15/23 08:59 Last Admin: 06/18/23 10:00 Dose: 40 mg Phenazopyridine HCl (Phenazopyridine Hcl 100 Mg Tab) 100 mg PO TID PRN PRN Reason: dyrusia Stop: 07/15/23 13:50 Last Admin: 06/17/23 20:49 Dose: 100 mg Quetiapine Fumarate (Quetiapine Fumarate 200 Mg Tab) 400 mg PO HS MARY Stop: 07/14/23 20:59 Last Admin: 06/17/23 20:53 Dose: 400 mg Rivaroxaban (Rivaroxaban 20 Mg Tab) 20 mg PO DAILY@1700 MARY Stop: 07/14/23 16:59 Last Admin: 06/17/23 17:46 Dose: 20 mg Ropinirole HCl (Ropinirole Hcl 0.25 Mg Tablet) 0.5 mg PO HS MARY Stop: 07/14/23 20:59 Last Admin: 06/17/23 20:54 Dose: 0.5 mg Saccharomyces Boulardii (Saccharomyces Boulardii 250 Mg Cap) 250 mg PO DAILY MARY Stop: 07/16/23 08:59 Last Admin: 06/18/23 09:58 Dose: 250 mg Thiamine HCl (Thiamine Hcl 100 Mg Tab) 100 mg PO BID MARY Stop: 07/14/23 20:59 Last Admin: 06/18/23 09:59 Dose: 100 mg (5) Schizoaffective disorder Schizoaffective disorder type: depressive Qualified Code(s): F25.1 - Schizoaffective disorder, depressive type
[2023-06-18] MEDS: RIVAROXABAN 20 MG TAB PO SCH (17:51)
[2023-06-18] MEDS: QUEtiapine FUMARATE 200 MG TAB PO SCH (20:12)
[2023-06-18] MEDS: rOPINIRole HCL 0.25 MG TABLET PO SCH (20:13)
[2023-06-18] MEDS: PHENAZOPYRIDINE HCL 100 MG TAB PO PRN (20:14)
[2023-06-18] MEDS: ACETAMINOPHEN 325 MG TAB PO PRN (20:18)
[2023-06-18] MEDS ORDERED: clonazePAM 1 MG TAB PO STA (21:58)
[2023-06-19] MEDS: ACETAMINOPHEN 325 MG TAB PO PRN ×2 (06:10→13:30)
[2023-06-19 07:15] LABS: Basophils # (auto) 0.05 K/uL (0-0.2); Basophils % (auto) 0.7 %; Eosinophils # (auto) 0.22 K/uL (0-0.50); Eosinophils % (auto) 3.2 %; Hematocrit (blood only) 37.8 % (37.0-47.0); Hemoglobin 13.1 g/dl (12.0-16.0); Immature Granulocytes # (auto) 0.03 K/uL (0.01-0.20); Immature Granulocytes % (auto) 0.4 %; Lymphocytes # (auto) 3.38 K/uL (1.2-3.4); Lymphocytes % (auto) 49.2 %; Mean Corpuscular Hemoglobin 31.8 pg (25.0-34.0); Mean Corpuscular Hgb Conc 34.7 g/dL (32.0-36.0); Mean Corpuscular Volume 91.7 fL (80.0-100.0); Mean Platelet Volume 9.2 fL (9.4-12.4); Monocytes # (auto) 0.66 K/uL (0.11-0.59); Monocytes % (auto) 9.6 %; Neutrophils # (auto) 2.53 K/uL (1.40-6.50); Neutrophils % (auto) 36.9 %; Platelet Count 204 K/uL (130-400); RDW Coefficient of Variation 11.7 % (11.5-14.5); Red Blood Count 4.12 M/uL (4.20-5.40); White Blood Count 6.87 K/ul (4.8-10.8)
[2023-06-19] MEDS: LORATADINE 10 MG TAB PO SCH (07:40)
[2023-06-19] MEDS: PANCREAZE (LIPASE 10,500U) CAP PO SCH ×2 (07:40→12:01)
[2023-06-19] MEDS: CYANOCOBALAMIN (B-12) 500 MCG TABLET PO SCH (07:41)
[2023-06-19] MEDS: cephALEXin 500 MG CAP PO SCH (07:41)
[2023-06-19] MEDS: FAMOTIDINE 20 MG TAB PO SCH (07:41)
[2023-06-19] MEDS: ESCITALOPRAM OXALATE 20 MG TAB PO SCH (07:43)
[2023-06-19] MEDS: THIAMINE HCL 100 MG TAB PO SCH (07:43)
[2023-06-19] MEDS: BENZTROPINE MESYLATE 0.5 MG TAB PO SCH (07:43)
[2023-06-19] MEDS: PANTOprazole 40 MG TAB PO SCH (07:44)
[2023-06-19] MEDS: busPIRone 15 MG TAB PO SCH ×2 (07:44→13:55)
[2023-06-19] MEDS: GABAPENTIN 100 MG CAP PO SCH (07:44)
[2023-06-19] MEDS: SACCHAROMYCES BOULARDII 250 MG CAP PO SCH (07:45)
[2023-06-19] MEDS: INSULIN ASPART PER UNIT CHARGE SC SCH ×2 (07:48→12:01)
[2023-06-19 07:50] LABS: BUN Creatinine Ratio 21.1 (10-20); Calcium 9.5 mg/dl (8.6-10.3); Creatinine Clr Calc Pharmacy 67.5 ml/min; Est GFR (African American) 77.8 ml/min; Est GFR (Non-African American) 67.1 ml/min; Potassium 4.2 mmol/L (3.5-5.1)
--- NOTE | 2023-06-19 09:54 | Hospitalist Progress Note ---
Date of Service June 19, 2023 Assessment & Plan (1) Acute metabolic encephalopathy: Plan: 67 y/o female with a history of DM2, schizoaffective disorder, GERD, hypothyroid, prior PE, chronic AC with Xarelto, prior UTIs, and chronic intermittent N/V who presented to the ED today via EMS with generalized weakness and UTI symptoms. Drowsy and lethargic in the ED but is able to answer some basic history questions. Started on ceftriaxone in the ED for the UTI. Labs in the ED showed a VBG with a pH of 7.29 and CO2 58 so pt was started on a trial of BiPAP for hypercarbia in hopes that this would improve her mental status. Secondary to increased CO2 and is complicated by UTI Mental status appears back to baseline Remains very lethargic otherwise no acute distress Much better today without any significant symptoms (2) Acute UTI: Plan: See plan for #1 - ceftriaxone, await culture Urine culture is growing pansensitive E. coli Antibiotic has been changed to oral Keflex and will be continued for about 7 to 10 days Denies any symptoms of UTI Will finish that antibiotic for UTI-denies any dysuria, fever or chills Bacteremia 1 out of 2 bottles Blood cultures +GPC, bio fire +staph epi. Possibly contaminant. Vancomycin added today continue for now pending blood cultures We will repeat blood culture if it is negative we will discontinue vancomycin Repeat blood cultures are negative and will discontinue vancomycin Vancomycin has been discontinued (3) Hypercarbia: Plan: Likely secondary to respiratory depression could be due to polypharmacy Received BiPAP initially Now saturating normally on 1 L nasal cannula oxygen administration Has been requiring up to 2 L to maintain saturation Saturating normally on room air Has been requiring up to 2 L of nasal cannula to maintain saturation (4) DM II (diabetes mellitus, type II), controlled: Plan: Hold Metformin Insulin sliding scale BSG ACHS Diabetic diet (5) Schizoaffective disorder: Plan: Klonopin held on admisson due to drowsiness which is resolved. To avoid withdrawal--will resume Klonopin at lower dose Continue other medications Will decrease Depakote ER to 1000 mg at night (6) History of pulmonary embolism: Plan: Unclear how significant hematuria noted at home was but no significant anemia on labs in the ED - will continue Xarelto and monitor Patient complains of bilateral leg pain. will check LE U/s to evaluate for DVT. Although she is supposed to be on Xarelto, I am uncertain of her compliance She has been taking Xarelto regularly in the hospital (7) GERD (gastroesophageal reflux disease): Plan: Continue famotidine Plan DVT ppx- Xarelto Will be discharged to [facility] this afternoon Admission and Anticipated Discharge Date Admission Date: June 14, 2023 Subjective 06/16/2023 The patient was seen and examined in telemetry unit She has been weak and lethargic and does not feel good Denies any shortness of breath at rest No fever and or chills 06/17/2023 The patient was seen and examined in telemetry unit She has been stable and complains aches and pains all over and all the joints Pain medicine is controlling the pain to some extent Denies any fever and or chills 06/18/2023 The patient was seen and examined in telemetry unit She remains stable but weak and lethargic Complains to have nonspecific pain all over No acute arthritis, no chest pain or palpitation or shortness of breath 06/19/2023 The patient was seen and examined in telemetry unit She has been feeling much better and complains some back pain which is relieved with Tylenol Denies any other significant symptoms She will be discharged to [facility] this afternoon Review of Systems Review of Systems: All systems reviewed and are unremarkable except as noted below Physical Exam Physical Exam: Lying in bed without any acute distress Constitutional: well developed, well nourished, + ill appearing and + obese Eyes: PERRL, conjunctivae normal, anicteric sclerae ENMT: external ear and nose normal, oropharynx normal Neck: trachea midline, no thyromegaly Respiratory: no respiratory distress Auscultation: + diminished lung sounds and + crackles (Minimal crackles at the bases) Cardiovascular: Rate/Rhythm: regular rate and regular rhythm; not tachycardic Heart Sounds: normal S1 and normal S2; no murmur Extremities: + edema (Trace edema bilaterally) Gastrointestinal (Abdomen): Inspection/Auscultation: normal bowel sounds; abdomen not distended Percussion/Palpation: abdomen soft; abdomen nontender Musculoskeletal: No acute arthritis involving any of the joints Neurologic: normal touch/pain/proprioception and moves all extremities; no focal motor deficits Remains generally weak Lymphatic: no cervical or axillary lymphadenopathy Results & Data Results & Data Vital Signs (Past 12 Hours) Vital Signs Temp Pulse Pulse Resp BP BP Pulse Ox 06/19/23 09:41 06/19/23 08:01 36.4 C L 61 18 101/69 95 06/19/23 07:23 59 L 06/19/23 04:32 36.6 C 65 19 101/65 94 06/18/23 23:59 68 06/18/23 23:32 37.0 C 64 18 104/63 92 O2 Del Method O2 Flow Rate 06/19/23 09:41 Nasal Cannula 2 06/19/23 08:01 Nasal Cannula 2 06/19/23 07:23 06/19/23 04:32 Nasal Cannula 2 06/18/23 23:59 06/18/23 23:32 Nasal Cannula 2 Laboratory Results Short CBC 06/19/23 Range/Units 06:38 WBC 6.87 (4.8-10.8) K/ul Hgb 13.1 (12.0-16.0) g/dl Hct 37.8 (37.0-47.0) % Plt Count 204 (130-400) K/uL BMP 06/19/23 06:38 Sodium 138 Potassium 4.2 Chloride 104 Carbon Dioxide 31 BUN 19 Creatinine 0.90 Glucose 104 H Calcium 9.5 Medications Administered Current Inpatient Medications Acetaminophen (Acetaminophen 325 Mg Tab) 650 mg PO Q4H PRN PRN Reason: Pain Stop: 07/15/23 13:55 Last Admin: 06/19/23 06:10 Dose: 650 mg Lipase/Protease/Amylase (Pancreaze (Lipase 10,500u) Cap) 1 cap PO TIDM MARY Stop: 07/17/23 16:59 Last Admin: 06/19/23 07:40 Dose: 1 cap Benztropine Mesylate (Benztropine Mesylate 0.5 Mg Tab) 0.5 mg PO BID MARY Stop: 07/14/23 20:59 Last Admin: 06/19/23 07:43 Dose: 0.5 mg Buspirone HCl (Buspirone 15 Mg Tab) 15 mg PO TID MARY Stop: 07/14/23 20:59 Last Admin: 06/19/23 07:44 Dose: 15 mg Cephalexin HCl (Cephalexin 500 Mg Cap) 500 mg PO BID MARY Stop: 06/20/23 08:59 Last Admin: 06/19/23 07:41 Dose: 500 mg Clonazepam (Clonazepam 0.5 Mg Tab) 0.5 mg PO TID PRN PRN Reason: Anxiety Stop: 07/14/23 22:23 Last Admin: 06/17/23 23:02 Dose: 0.5 mg Cyanocobalamin (Cyanocobalamin (B-12) 500 Mcg Tablet) 1,000 mcg PO BID MARY Stop: 07/14/23 20:59 Last Admin: 06/19/23 07:41 Dose: 1,000 mcg Dextrose (Dextrose 50% 50 Ml Syringe) 25 - 50 ml IV UD PRN; Protocol PRN Reason: Hypoglycemia Protocol Stop: 07/14/23 16:04 Divalproex Sodium (Divalproex Extended Release 500 Mg Tab) 1,000 mg PO HS [facility] Stop: 07/16/23 20:59 Escitalopram Oxalate (Escitalopram Oxalate 20 Mg Tab) 20 mg PO QAM MARY Stop: 07/15/23 08:59 Last Admin: 06/19/23 07:43 Dose: 20 mg Famotidine (Famotidine 20 Mg Tab) 20 mg PO BID MARY Stop: 07/14/23 20:59 Last Admin: 06/19/23 07:41 Dose: 20 mg Gabapentin (Gabapentin 100 Mg Cap) 200 mg PO HS MARY Stop: 07/14/23 20:59 Last Admin: 06/18/23 20:13 Dose: 200 mg Gabapentin (Gabapentin 100 Mg Cap) 100 mg PO BID17 MARY Stop: 07/14/23 16:59 Last Admin: 06/19/23 07:44 Dose: 100 mg Glucagon (Glucagon For Inj 1 Mg Vial) 1 mg SQ UD PRN; Protocol PRN Reason: Hypoglycemia Protocol Stop: 07/14/23 16:04 Glucose (Glucose 40% Gel 15 Gm Tube) 15 - 30 gm PO UD PRN; Protocol PRN Reason: Hypoglycemia Protocol Stop: 07/14/23 16:04 Glucose (Glucose 10 Tab/Tube) 4 - 8 tab PO UD PRN; Protocol PRN Reason: Hypoglycemia Treatment Stop: 07/14/23 16:04 Insulin Aspart (Insulin Aspart Per Unit Charge) 0 units SC ACHS MARY Stop: 07/14/23 16:29 Last Admin: 06/19/23 07:48 Dose: 3 units Loratadine (Loratadine 10 Mg Tab) 10 mg PO DAILY MARY Stop: 07/15/23 08:59 Last Admin: 06/19/23 07:40 Dose: 10 mg Miscellaneous (Carbohydrates For Hypoglycemia ) 15 - 30 gm PO UD PRN PRN Reason: Hypoglycemia Protocol Stop: 07/14/23 16:04 Last Admin: 06/17/23 16:17 Dose: 15 gm Pantoprazole Sodium (Pantoprazole 40 Mg Tab) 40 mg PO QAM MARY Stop: 07/15/23 08:59 Last Admin: 06/19/23 07:44 Dose: 40 mg Phenazopyridine HCl (Phenazopyridine Hcl 100 Mg Tab) 100 mg PO TID PRN PRN Reason: dyrusia Stop: 07/15/23 13:50 Last Admin: 06/18/23 20:14 Dose: 100 mg Quetiapine Fumarate (Quetiapine Fumarate 200 Mg Tab) 400 mg PO HS MARY Stop: 07/14/23 20:59 Last Admin: 06/18/23 20:12 Dose: 400 mg Rivaroxaban (Rivaroxaban 20 Mg Tab) 20 mg PO DAILY@1700 MARY Stop: 07/14/23 16:59 Last Admin: 06/18/23 17:51 Dose: 20 mg Ropinirole HCl (Ropinirole Hcl 0.25 Mg Tablet) 0.5 mg PO HS MARY Stop: 07/14/23 20:59 Last Admin: 06/18/23 20:13 Dose: 0.5 mg Saccharomyces Boulardii (Saccharomyces Boulardii 250 Mg Cap) 250 mg PO DAILY MARY Stop: 07/16/23 08:59 Last Admin: 06/19/23 07:45 Dose: 250 mg Thiamine HCl (Thiamine Hcl 100 Mg Tab) 100 mg PO BID MARY Stop: 07/14/23 20:59 Last Admin: 06/19/23 07:43 Dose: 100 mg (5) Schizoaffective disorder Schizoaffective disorder type: depressive Qualified Code(s): F25.1 - Schizoaffective disorder, depressive type
[2023-06-19] MEDS: PHENAZOPYRIDINE HCL 100 MG TAB PO PRN (13:55)
--- NOTE | 2023-06-20 08:55 | Discharge Summary ---
Date of Service June 20, 2023 Admission HPI Per Admitting Provider This is a 67 y/o female with a history of DM2, schizoaffective disorder, GERD, hypothyroid, prior PE, chronic AC with Xarelto, prior UTIs, and chronic intermittent N/V who presented to the ED today via EMS with generalized weakness and UTI symptoms. Pt reports several days of suprapubic discomfort, dysuria, hematuria, and urinary frequency. She has been more tired than usual, has had chills but is unsure if she had a fever. Overnight, she developed increased weakness and reports today was unable to ambulate even with her walker so she came for evaluation. More drowsy than usual, both at home and in the ED. Denies nausea, vomiting. Appetite has been good. Has had some dizziness but denies syncope, recent falls. Most recently admitted to [facility] 03/14-03/17/23 for Norovirus infection. Reports the chronic intermittent N/V/D is not currently an issue. Admission Exam Per Admitting Provider Constitutional: + obese; no acute distressdrowsy but arousable, currently on BiPAP Eyes: + anicteric sclerae Neck: trachea midline Respiratory: no respiratory distress and no labored breathing Auscultation: + diminished lung sounds; no rales, no rhonchi and no wheezes Cardiovascular: Rate/Rhythm: regular rate and regular rhythm Gastrointestinal (Abdomen): Inspection/Auscultation: normal bowel sounds Percussion/Palpation: + abdomen tender (suprapubic) and abdomen soft Musculoskeletal: Head/Neck/Chest: normocephalic, head atraumatic and neck supple Skin: no jaundice Neurologic: moves all extremities drowsy but arousable to verbal and physical stimuli Psychiatric: Orientation: oriented x 3 Principal Diagnosis Acute metabolic Encephalopathy, UTI, schizoaffective disorder, history of pulmonary embolism, type 2 diabetes Discharge Exam Lying in bed without any acute distress Constitutional well developed, well nourished, + ill appearing and + obese Eyes PERRL, conjunctivae normal, anicteric sclerae ENMT external ear and nose normal, oropharynx normal Neck trachea midline, no thyromegaly Respiratory no respiratory distress Auscultation: + diminished lung sounds and + crackles (Minimal crackles at the bases) Cardiovascular Rate/Rhythm: regular rate and regular rhythm; not tachycardic Heart Sounds: normal S1 and normal S2; no murmur Extremities: + edema (Trace edema bilaterally) Gastrointestinal (Abdomen) Inspection/Auscultation: normal bowel sounds; abdomen not distended Percussion/Palpation: abdomen soft; abdomen nontender Neurologic normal touch/pain/proprioception and moves all extremities; no focal motor deficits Lymphatic no cervical or axillary lymphadenopathy Discharge Data Allergies Allergy/AdvReac Type Severity Reaction Status Date / Time bee venom protein (honey bee) Allergy Intermediate unk Unverified 02/11/23 11:18 egg AdvReac Severe Vomiting Verified 02/11/23 11:18 Penicillins AdvReac Severe VOMITING/IT Verified 02/11/23 11:18 DAVON Consultations 06/14/23 12:36 ED Decision to Admit Stat Ordered Studies 06/14/23 10:02 CT abd pelvis IV con only Stat CT head/brain wo con Stat 06/15/23 19:07 US venous duplex leg [US venous doppler LE BI] Routine Hospital Course (1) Acute metabolic encephalopathy: 67 y/o female with a history of DM2, schizoaffective disorder, GERD, hypothyroid, prior PE, chronic AC with Xarelto, prior UTIs, and chronic intermittent N/V who presented to the ED today via EMS with generalized weakness and UTI symptoms. Drowsy and lethargic in the ED but is able to answer some basic history questions. Started on ceftriaxone in the ED for the UTI. Labs in the ED showed a VBG with a pH of 7.29 and CO2 58 so pt was started on a trial of BiPAP for hypercarbia in hopes that this would improve her mental status. Secondary to increased CO2 and is complicated by UTI Mental status appears back to baseline Remains very lethargic otherwise no acute distress Much better today without any significant symptoms (2) Acute UTI: See plan for #1 - ceftriaxone, await culture Urine culture is growing pansensitive E. coli Antibiotic has been changed to oral Keflex and will be continued for about 7 to 10 days Denies any symptoms of UTI Will finish that antibiotic for UTI-denies any dysuria, fever or chills Bacteremia 1 out of 2 bottles Blood cultures +GPC, bio fire +staph epi. Possibly contaminant. Vancomycin added today continue for now pending blood cultures We will repeat blood culture if it is negative we will discontinue vancomycin Repeat blood cultures are negative and will discontinue vancomycin Vancomycin has been discontinued (3) Hypercarbia: Likely secondary to respiratory depression could be due to polypharmacy Received BiPAP initially Now saturating normally on 1 L nasal cannula oxygen administration Has been requiring up to 2 L to maintain saturation Saturating normally on room air Has been requiring up to 2 L of nasal cannula to maintain saturation (4) DM II (diabetes mellitus, type II), controlled: Hold Metformin Insulin sliding scale BSG ACHS Diabetic diet (5) Schizoaffective disorder: Klonopin held on admisson due to drowsiness which is resolved. To avoid withdrawal--will resume Klonopin at lower dose Continue other medications Will decrease Depakote ER to 1000 mg at night (6) History of pulmonary embolism: Unclear how significant hematuria noted at home was but no significant anemia on labs in the ED - will continue Xarelto and monitor Patient complains of bilateral leg pain. will check LE U/s to evaluate for DVT. Although she is supposed to be on Xarelto, I am uncertain of her compliance She has been taking Xarelto regularly in the hospital (7) GERD (gastroesophageal reflux disease): Continue famotidine Plan DVT ppx- Xarelto Will be discharged to [facility] this afternoon Total Time Total Time Spent Total Time Spent (In Minutes): 35 minutes Discharge Plan Discharge Items Patient Disposition: Transfer Inpatient Rehab Fac Reason For Visit: UTI, METABOLIC ENCEPHALOPATHY Discharge Diagnosis: Acute metabolic Encephalopathy, UTI, schizoaffective disorder, history of pulmonary embolism, type 2 diabetes Activity: As commented below Activity Comment: Will need continued PT and OT Non-emergency contact: Primary Care Provider Call non-emergency contact if: you have any medication questions and your symptoms worsen Follow-up/Referrals: Wen Garza DO [Primary Care Provider] - (Please make an appointment with your PCP within 7 days following discharge from the facility) Diet: Carb Consistent or DM2 Addtl Attending Provider Instructions: Please take precautions to avoid falls Take your medications as advised Your Depakote dose has been decreased to 1000 mg daily Please finish the course of antibiotic as advised Pending Studies at Discharge: No Stand-Alone Forms: My [facility] Skilled Items Patient informed of condition?: Yes DNR: No Discharge Level of Care: Acute rehab Communicable Disease: No Discharge Prognosis: Stable Lines: None Urinary Catheter: Yes Medications and DC Order Prescriptions: New cephalexin 500 mg Capsule 500 mg PO BID 5 Days Qty: 10 0RF Saccharomyces boulardii [Florastor] 250 mg Capsule 250 mg PO DAILY Qty: 10 0RF Continued buspirone 15 mg tablet 15 mg PO TID Creon 12,000-38,000 -60,000 unit capsule,delayed release(DR/EC) 1 cap PO TID Xarelto 20 mg tablet 20 mg PO DAILY ropinirole 0.5 mg tablet 0.5 mg PO HS escitalopram oxalate [Lexapro] 20 mg tablet 20 mg PO QAM benztropine 0.5 mg tablet 0.5 mg PO BID quetiapine 400 mg tablet 400 mg PO HS famotidine 20 mg tablet 20 mg PO BID 30 Days Qty: 60 0RF gabapentin 100 mg capsule 200 mg PO HS pantoprazole [Protonix] 40 mg tablet,delayed release (DR/EC) 40 mg PO QAM promethazine 12.5 mg tablet 12.5 mg PO TID PRN (Reason: nausea) Qty: 14 0RF metformin 500 mg tablet extended release 24 hr 500 mg PO BID cholestyramine (with sugar) 4 gram powder See Rx Instructions .ROUTE .COMPLEX Rx Instructions: DISSOLVE ONE AND ONE-HALF scoops into EIGHT ounces of JUICE OR water EVERY DAY ferrous sulfate [Iron (ferrous sulfate)] 325 mg (65 mg iron) tablet 325 mg PO Q OTHER DAY cyanocobalamin (vitamin B-12) [Vitamin B-12] 1,000 mcg tablet 1,000 mcg PO BID thiamine HCl (vitamin B1) [Vitamin B-1] 100 mg tablet 100 mg PO BID clonazepam 1 mg tablet 1 mg PO TID PRN (Reason: Anxiety) gabapentin 100 mg capsule 100 mg PO [id number] Rx Instructions: TAKES 100 MG QAM & NOON, THEN 200 MG AT HS. loratadine [Claritin] 10 mg Tablet 10 mg PO DAILY Changed divalproex [Depakote ER] 500 mg tablet extended release 24 hr 1,000 mg PO HS Qty: 1 0RF Discharge Orders: Discharge Order (Routine); Ordered 06/19/23 Ordered By: Natalie Maya/Other Patient Handouts: Managing Type 2 Diabetes, Special Foot Care for Diabetes Admission Data Admit Date/Time: 06/14/23 13:31 Attending Provider: Natalie Schumacher Admit Provider: Pallavi Gordon Primary Care Provider: Wen Garza Other Providers: Pallavi Gordon ; Greg Madsen ; [facility] ; [facility] Other Interventions: Discharge Summary Assessment (RN) Last Done: 06/19/23 12:31
--- NOTE | 2023-06-21 11:22 | Coding Query ---
To promote full compliance with coding requirements relating to patient care, provider participation is requested in all cases of digital solutions architect uncertainty. Please assist us with the question(s) below: Coding Question(s): The diagnosis below was documented in the 06/15 Hospitalist Progress Note, then subsequently fell off all further documentation. Please indicate if it is still a possible diagnosis or ruled out. Physician's Response(s): ACUTE HYPERCAPNIC RESPIRATORY FAILURE TREATED AND RESOLVED WITH BIPAP THERAPY - (documented on the 06/15 Progress Note) ( ) Diagnosed and POA ( ) Diagnosed and not POA ( + ) Ruled out ( ) Other (please specify) MTDD
--- NOTE | 2023-06-21 13:21 | Coding Query ---
CODING QUERY To promote full compliance with coding requirements relating to patient care, provider participation is requested in all cases of lightning rod erector uncertainty. Please assist us with the question(s) below: Coding Question(s): Acute Metabolic Encephalopathy is documented starting on the H&P and 06/14 Communication Note/Attending Addendum to H&P. It is not clear what is causing the Acute Metabolic Encephalopathy. Please specify below, in your clinical opinion, the cause(s) of the Acute Metabolic Encephalopathy: ( ) UTI ( ) Several sedating medications to treat her psychiatric disorder including Cogentin, Buspar, Clonazepam, Divalproex, Gabapentin, Quietapine ( ) Hypercarbia ( ) Other: Please Specify Physician's Response(s): Thank you Caitie Garcia Principal Diagnosis: "that condition established after study, to be chiefly responsible for occasioning the admission of the patient to the hospital for care." Co-Existing Principal Diagnosis: "when two or more diagnoses equally meet the criteria for principal diagnosis as determined by the circumstances of admission, diagnostic work up, and/or therapy provided, and the Alphabetic Index, Tabular List, or another coding guideline does not provide sequencing direction, any one of the diagnoses may be sequenced first." "When the physician has documented what appears to be a current diagnosis in the body of the record, but has not included the diagnosis in the final diagnostic statement, the physician should be asked whether the diagnosis should be added." (Source Coding Clinic 2 QTR90. p3-4) KALYN
== END 2023-06-19 15:30 | DRG 689 ==
LOC: ED 09:21 → 2S 13:31 → SUATTDRO 13:31 → 2S 15:48

== ENCOUNTER 2023-07-10 18:27 | Inpatient (IN) ==
[2023-07-10] MEDS ORDERED: SODIUM CHLORIDE 0.9% 1,000 ML IV ONE (18:45)
--- NOTE | 2023-07-10 18:45 | Emergency Department Note ---
Impression & Plan Acute UTI, Generalized weakness, Fall ED Provider Note NAME: SID JAVIER AGE: 67 SEX: F : 1955 ARRIVES VIA: Ambulance INFORMANT: Patient ED PROVIDER(S): Phong Ryder DO CHIEF COMPLAINT: Fall HPI: Patient is a 67-year-old female who presents ER following ground-level fall. She was in the kitchen and was trying to get sticky buns and fell backwards. She did hit her head. There is no loss consciousness. She admits to mild headache. No neck pain. Does take Eliquis. Denies any chest pain or shortness of breath. No belly pain. No nausea, vomiting, or diarrhea. No other pain. She notes that she was just recently at a rehab because of recurrent falls. She is not dizzy or lightheaded prior to this incident. She was not having any chest pain or shortness of breath. No other exacerbating or remitting factors. PAST MEDICAL HISTORY:See Below PAST SURGICAL HISTORY:See Below FAMILY HISTORY:See Below SOCIAL HISTORY:See Below HOME MEDICATIONS:See Below ALLERGIES:See Below VITALS:See Below PHYSICAL EXAMINATION: GENERAL: Sitting up in bed, alert, well appearing, well nourished, no distress, non-toxic EYE EXAM: normal conjunctiva. PERRL and EOM's grossly intact. HEAD: Small contusion posterior occiput OROPHARYNX:mucous membranes are moist NECK: supple, no nuchal rigidity, no adenopathy, non-tender LUNGS: Clear to auscultation. Normal chest wall mechanics HEART: no murmurs, S1 normal and S2 normal ABDOMEN: abdomen soft, non-tender, normo-active bowel sounds, no masses, no rebound or guarding. BACK: Back is symmetrical on inspection and there is no deformity, no midline tenderness, no CVA tenderness. SKIN: no rashes and no bruising UPPER EXTREMITIES: upper extremities are grossly normal. LOWER EXTREMITIES: Flexion-extension bilateral hips knees ankles intact josé luis aterally. Tenderness of bilateral knees which is old per patient NEURO EXAM: Normal sensorium-oriented to person, place, year and time, cranial nerves II-XII intact, normal speech, no weakness of arms, no weakness of legs. No drift. Finger to nose intact. Gross sensation intact. MEDICAL DECISION MAKING: Patient is a 66-year-old female who presents ER following a fall. IV was established blood work was obtained. External records reviewed. Labs show no significant leukocytosis or anemia. BMP was remarkable for mild hypomagnesia at 1.6. No transaminitis. Bilirubin was unremarkable. Lipase was normal. UA does suggest a UTI. She was covered with IV antibiotics/Rocephin. She is updated bedside. CT of the head and cervical spine were negative. She denies all other complaints with exception of chronic knee pain. Updated and discussed with the hospitalist for further evaluation and management. Triage Nursing notes reviewed. Limited review of prior medical records performed Vital Signs: reviewed and remarkable for no significant abnormalities Differential diagnosis: Differential diagnoses include major intracranial, cervical, spinal, thoracic, abdominal, pelvic and neurologic injury. Fracture, contusion, sprain, strain, laceration, abrasions included as well. ER treatment provided: See below Diagnostics interpreted by me include EKG and cardiac monitoring as listed below: -Cardiac Monitoring: An order was placed for continuous cardiac monitoring. The monitor shows a rate of with rhythm. -ECG: Sinus rhythm rate of 77 Right bundle branch block Right axis T wave inversion V1 through V6 QTc 497 -Laboratory studies: Interpreted by me as stated above in MDM and shown below. Imaging studies: Xrays: As interpreted by me: None CTs show: CT head per my read shows no obvious large bleed CT head and cervical spine was negative per radiology Consultation(s): As described in MDM Procedures: None PDMP:reviewed and no issues Critical Care: None Past Med/Surg History Medical History Anemia Anxiety and depression Arthritis Aspiration pneumonia Chronic diarrhea Diabetes Enteritis due to [place] virus Folate deficiency Generalized weakness GERD (gastroesophageal reflux disease) History of pulmonary embolism Hyperparathyroidism Hypothyroid Intractable nausea and vomiting Iron deficiency anemia Irritable bowel syndrome Pulmonary embolism Rectal bleeding Restless leg Schizoaffective disorder Smoking Surgical History History of section x2 History of cholecystectomy History of hysterectomy Family History (Updated 06/14/23 @ 13:58 by Heena Denny PA-C) Mother Diabetes Sister Diabetes Denies family history of Inflammatory bowel disease Social History Smoking Status: Current every day smoker Tobacco Type: Cigarettes Cigarettes Per Day: unknown; Second Hand Exposure: Yes; Do You Dip or Chew Tobacco: No; Hx Alcohol Use: No Hx Substance Use: No Preferred Language: Cambodian Communication Ability: Effective Car Audio Installer Required: No Beliefs That Will Affect Care: Spiritual marital status: Current Living Situation: Family Current Living Situation Comment: Lives with daughter How many Children do You have: 2 Feels Safe at Home: Yes Assistive Devices: Walker and Wheelchair Allergies Allergies Allergy/AdvReac Type Severity Reaction Status Date / Time bee venom protein (honey bee) Allergy Intermediate unk Unverified 07/10/23 19:02 egg AdvReac Severe Vomiting Verified 07/10/23 19:02 Penicillins AdvReac Severe VOMITING/IT Verified 07/10/23 19:02 DAVON Home Meds Home Medications Medication Instructions Recorded Confirmed buspirone 15 mg tablet 15 mg PO TID 10/25/20 07/10/23 [id number] 1 cap PO TID 10/25/20 07/10/23 12,000-38,000-60,000 unit capsule,delayed rel (Creon) rivaroxaban 20 mg tablet (Xarelto) 20 mg PO DAILY 10/25/20 07/10/23 escitalopram oxalate 20 mg tablet 20 mg PO QAM 03/18/21 07/10/23 (Lexapro) ropinirole 0.5 mg tablet 0.5 mg PO HS 03/18/21 07/10/23 ferrous sulfate 325 mg (65 mg 325 mg PO Q OTHER DAY 06/03/21 07/10/23 iron) tablet (Iron (ferrous sulfate)) cyanocobalamin (vitamin B-12) 1,000 mcg PO BID 08/05/21 07/10/23 1,000 mcg tablet (Vitamin B-12) thiamine HCl (vitamin B1) 100 mg 100 mg PO BID 10/11/21 07/10/23 tablet (Vitamin B-1) benztropine 0.5 mg tablet 0.5 mg PO BID 07/25/22 07/10/23 quetiapine 400 mg tablet 400 mg PO HS 07/25/22 07/10/23 clonazepam 1 mg tablet 1 mg PO TID PRN Anxiety 01/13/23 07/10/23 gabapentin 100 mg capsule 100 mg PO BID17 01/13/23 07/10/23 loratadine 10 mg tablet (Claritin) 10 mg PO DAILY 01/13/23 07/10/23 gabapentin 100 mg capsule 200 mg PO HS 03/14/23 07/10/23 pantoprazole 40 mg tablet,delayed 40 mg PO QAM 03/14/23 07/10/23 release (Protonix) cholestyramine (with sugar) 4 gram See Rx Instructions .Route .COMPLEX 06/14/23 07/10/23 oral powder metformin 500 mg tablet,extended 500 mg PO BID 06/14/23 07/10/23 release 24 hr Previous Rx's Medication Instructions Recorded famotidine 20 mg tablet 20 mg PO BID 30 days #60 tabs 02/14/23 promethazine 12.5 mg tablet 12.5 mg PO TID PRN nausea #14 tabs 03/17/23 Saccharomyces boulardii 250 mg 250 mg PO DAILY #10 caps 06/19/23 capsule (Florastor) divalproex 500 mg tablet,extended 1,000 mg PO HS #1 tab 06/19/23 release 24 hr (Depakote ER) Results & Data (ED) Vital Signs Vital Signs - 24 hr 07/10/23 18:36 07/10/23 18:50 07/10/23 19:00 Temperature 36.9 C Temperature Source Oral Pulse Rate 74 80 76 Pulse Rate from SpO2 Sensor 80 Pulse Rhythm Respiratory Rate 18 14 18 Respiratory Effort / Characteristics Non-Labored Respiratory Depth Normal Blood Pressure 109/63 Blood Pressure Mean 78 Pulse Oximetry 94 92 Oxygen Delivery Method Room Air Sepsis Recent Fever Within 48 Hours No Sepsis New/Unexplained Change in Mental Status No Sepsis Action Taken by Nursing No Action Required 07/10/23 19:14 07/10/23 19:18 07/10/23 20:17 Temperature Temperature Source Pulse Rate 73 74 Pulse Rate from SpO2 Sensor 74 74 Pulse Rhythm Regular Respiratory Rate 16 16 Respiratory Effort / Characteristics Respiratory Depth Blood Pressure 91/55 L 101/61 Blood Pressure Mean 67 74 Pulse Oximetry 94 92 Oxygen Delivery Method Room Air Room Air Room Air Sepsis Recent Fever Within 48 Hours Sepsis New/Unexplained Change in Mental Status Sepsis Action Taken by Nursing 07/10/23 19:30 07/10/23 19:30 07/10/23 20:00 Temperature Temperature Source Pulse Rate 73 Pulse Rate from SpO2 Sensor 73 Pulse Rhythm Respiratory Rate 18 Respiratory Effort / Characteristics Respiratory Depth Blood Pressure 94/63 L 105/62 Blood Pressure Mean 73 76 Pulse Oximetry 94 Oxygen Delivery Method Sepsis Recent Fever Within 48 Hours Sepsis New/Unexplained Change in Mental Status Sepsis Action Taken by Nursing 07/10/23 20:00 07/10/23 20:30 07/10/23 20:30 Temperature Temperature Source Pulse Rate 72 71 Pulse Rate from SpO2 Sensor 72 Pulse Rhythm Respiratory Rate 17 19 Respiratory Effort / Characteristics Respiratory Depth Blood Pressure 104/65 Blood Pressure Mean 78 Pulse Oximetry 96 Oxygen Delivery Method Sepsis Recent Fever Within 48 Hours Sepsis New/Unexplained Change in Mental Status Sepsis Action Taken by Nursing 07/10/23 21:00 07/10/23 21:03 07/10/23 21:03 Temperature Temperature Source Pulse Rate 74 74 Pulse Rate from SpO2 Sensor Pulse Rhythm Respiratory Rate 16 19 Respiratory Effort / Characteristics Respiratory Depth Blood Pressure 123/77 Blood Pressure Mean 92 Pulse Oximetry Oxygen Delivery Method Sepsis Recent Fever Within 48 Hours Sepsis New/Unexplained Change in Mental Status Sepsis Action Taken by Nursing 07/10/23 21:30 07/10/23 21:30 07/10/23 22:00 Temperature Temperature Source Pulse Rate 74 Pulse Rate from SpO2 Sensor Pulse Rhythm Respiratory Rate 19 Respiratory Effort / Characteristics Respiratory Depth Blood Pressure 115/71 104/63 Blood Pressure Mean 85 76 Pulse Oximetry Oxygen Delivery Method Sepsis Recent Fever Within 48 Hours Sepsis New/Unexplained Change in Mental Status Sepsis Action Taken by Nursing 07/10/23 22:00 07/10/23 22:30 07/10/23 22:30 Temperature Temperature Source Pulse Rate 75 72 Pulse Rate from SpO2 Sensor Pulse Rhythm Respiratory Rate 17 17 Respiratory Effort / Characteristics Respiratory Depth Blood Pressure 111/66 Blood Pressure Mean 81 Pulse Oximetry Oxygen Delivery Method Sepsis Recent Fever Within 48 Hours Sepsis New/Unexplained Change in Mental Status Sepsis Action Taken by Nursing 07/10/23 23:00 07/10/23 23:00 Temperature Temperature Source Pulse Rate 71 Pulse Rate from SpO2 Sensor Pulse Rhythm Respiratory Rate 18 Respiratory Effort / Characteristics Respiratory Depth Blood Pressure 106/62 Blood Pressure Mean 76 Pulse Oximetry Oxygen Delivery Method Sepsis Recent Fever Within 48 Hours Sepsis New/Unexplained Change in Mental Status Sepsis Action Taken by Nursing Laboratory Data 07/10/23 19:00 07/10/23 20:58 Lab Results 07/10/23 07/10/23 07/10/23 Range/Units 19:00 19:00 20:58 WBC 9.99 (4.8-10.8) K/ul RBC 4.26 (4.20-5.40) M/uL Hgb 13.5 (12.0-16.0) g/dl Hct 39.5 (37.0-47.0) % MCV 92.7 (80.0-100.0) fL MCH 31.7 (25.0-34.0) pg MCHC 34.2 (32.0-36.0) g/dL RDW Std Deviation 39.8 (36.4-46.3) fL RDW Coeff of [place] 11.9 (11.5-14.5) % Plt Count 156 (130-400) K/uL MPV 9.7 (9.4-12.4) fL Immature Gran % (Auto) 0.7 % Neut % (Auto) 58.2 % Lymph % (Auto) 29.9 % [place] % (Auto) 6.2 % Eos % (Auto) 4.2 % Baso % (Auto) 0.8 % Neut # (Auto) 5.81 (1.40-6.50) K/uL Lymph # (Auto) 2.99 (1.20-3.40) K/uL [place] # (Auto) 0.62 H (0.11-0.59) K/uL Eos # (Auto) 0.42 (0.00-0.50) K/uL Baso # (Auto) 0.08 (0.00-0.20) K/uL Immature Gran # (Auto) 0.07 (0.01-0.20) K/uL Sodium 137 (136-145) mmol/L Potassium 5.2 H 4.8 (3.5-5.1) mmol/L Chloride 107 (98-107) mmol/L Carbon Dioxide 25 (21-32) mmol/L Anion Gap 5 (3-11) BUN 15 (6-23) mg/dl Creatinine 0.84 (0.6-1.2) mg/dl Est Cr Clr Drug Dosing 78.5 ml/min Est GFR ( Amer) 84.5 ml/min Est GFR (Non-Af Amer) 72.9 ml/min BUN/Creatinine Ratio 17.9 (10-20) Glucose 104 H (70-99(Fasting)) mg/dl Calcium 9.0 (8.6-10.3) mg/dl Magnesium 1.6 L (1.7-2.4) mg/dl Total Bilirubin 0.4 (0.2-1.0) mg/dl AST 12 L (13-39) U/L ALT 6 L (7-52) U/L Alkaline Phosphatase 74 (34-104) U/L Total Creatine Kinase 20 L (26-192) U/L Troponin I High Sens < 2.3 2.6 (0-14) pg/ml Total Protein 6.4 (6.0-8.3) gm/dl Albumin 3.4 (3.4-5.0) gm/dl Globulin 3.0 (2.5-4.0) gm/dl Albumin/Globulin Ratio 1.1 (0.9-2) Lipase 15 (11-82) U/L Urine Color Urine Appearance (Clear) Urine pH (4.5-7.5) Ur Specific [place] (1.000-1.030) Urine Protein (Negative) Urine Glucose (UA) (Negative) Urine Ketones (Negative) Urine Blood (Negative) Urine Nitrite (Negative) Urine Bilirubin (Negative) Urine Urobilinogen (Negative) Ur Leukocyte Esterase (Negative) Urine WBC (Auto) (0-5) /hpf Urine RBC (Auto) (0-4) /hpf U Hyaline Cast (Auto) (0-5) /lpf U Epithel Cells (Auto) (0-5) /lpf Urine Bacteria (Auto) (Negative) 07/10/23 Range/Units 21:21 WBC (4.8-10.8) K/ul RBC (4.20-5.40) M/uL Hgb (12.0-16.0) g/dl Hct (37.0-47.0) % MCV (80.0-100.0) fL MCH (25.0-34.0) pg MCHC (32.0-36.0) g/dL RDW Std Deviation (36.4-46.3) fL RDW Coeff of [place] (11.5-14.5) % Plt Count (130-400) K/uL MPV (9.4-12.4) fL Immature Gran % (Auto) % Neut % (Auto) % Lymph % (Auto) % [place] % (Auto) % Eos % (Auto) % Baso % (Auto) % Neut # (Auto) (1.40-6.50) K/uL Lymph # (Auto) (1.20-3.40) K/uL [place] # (Auto) (0.11-0.59) K/uL Eos # (Auto) (0.00-0.50) K/uL Baso # (Auto) (0.00-0.20) K/uL Immature Gran # (Auto) (0.01-0.20) K/uL Sodium (136-145) mmol/L Potassium (3.5-5.1) mmol/L Chloride (98-107) mmol/L Carbon Dioxide (21-32) mmol/L Anion Gap (3-11) BUN (6-23) mg/dl Creatinine (0.6-1.2) mg/dl Est Cr Clr Drug Dosing ml/min Est GFR ( Amer) ml/min Est GFR (Non-Af Amer) ml/min BUN/Creatinine Ratio (10-20) Glucose (70-99(Fasting)) mg/dl Calcium (8.6-10.3) mg/dl Magnesium (1.7-2.4) mg/dl Total Bilirubin (0.2-1.0) mg/dl AST (13-39) U/L ALT (7-52) U/L Alkaline Phosphatase (34-104) U/L Total Creatine Kinase (26-192) U/L Troponin I High Sens (0-14) pg/ml Total Protein (6.0-8.3) gm/dl Albumin (3.4-5.0) gm/dl Globulin (2.5-4.0) gm/dl Albumin/Globulin Ratio (0.9-2) Lipase (11-82) U/L Urine Color Yellow Urine Appearance Turbid A (Clear) Urine pH 5.5 (4.5-7.5) Ur Specific [place] 1.013 (1.000-1.030) Urine Protein Trace H (Negative) Urine Glucose (UA) Negative (Negative) Urine Ketones Trace H (Negative) Urine Blood 2+ H (Negative) Urine Nitrite Negative (Negative) Urine Bilirubin Negative (Negative) Urine Urobilinogen Negative (Negative) Ur Leukocyte Esterase 3+ H (Negative) Urine WBC (Auto) >30 H (0-5) /hpf Urine RBC (Auto) 5-10 H (0-4) /hpf U Hyaline Cast (Auto) 0 (0-5) /lpf U Epithel Cells (Auto) 5-10 H (0-5) /lpf Urine Bacteria (Auto) 2+ H (Negative) Administered Medications Discontinued Medications Acetaminophen (Acetaminophen 325 Mg Tab) 650 mg PO NOW STA Stop: 07/10/23 21:34 Last Admin: 07/10/23 21:39 Dose: 650 mg Documented By: MORENA Sodium Chloride (Nss 1000ml) 1,000 mls @ 999 mls/hr IV .Q1H1M ONE Stop: 07/10/23 19:45 Last Infusion: 07/10/23 21:39 Dose: 0 mls/hr Documented By: Admin: 07/10/23 19:11 Dose: 999 mls/hr Documented By: JARROD Ceftriaxone Sodium (Rocephin) 2,000 mg in 70 mls @ 140 mls/hr IV NOW STA Stop: 07/10/23 22:40 Last Admin: 07/10/23 23:01 Dose: 140 mls/hr Documented By: MORENA Imaging Data Radiologist's Impression: Cervical Spine CT 07/10/23 18:34 CT OF THE CERVICAL SPINE WITHOUT CONTRAST CLINICAL HISTORY: fall COMPARISON STUDY: Cervical spine CT February 25, 2022. TECHNIQUE: Helical axial images of the cervical spine were obtained without IV contrast. Sagittal and coronal reconstructions were viewed. Automated exposure control was utilized for the study. A dose lowering technique was utilized adhering to the principles of ALARA. FINDINGS: Alignment of the cervical spine is anatomic. Vertebral body heights are maintained. No acute cervical spine fracture or subluxation is present. There is no prevertebral edema. Facet joints are intact. Moderate multilevel fa cet arthrosis and degenerative disc disease is present. IMPRESSION: No acute cervical spine fracture or subluxation. ACT 112: Negative or not required by law. Electronically signed by: Bryn East M.D. 07/10/2023 7:[address] 07/10/23 18:34 CT OF THE HEAD WITHOUT CONTRAST CLINICAL HISTORY: fall COMPARISON STUDY: Head CT T June 14, 2023. TECHNIQUE: Helical axial images of the head were obtained without IV contrast. Automated exposure control was utilized for the study. A dose lowering technique was utilized adhering to the principles of ALARA. FINDINGS: No acute intracranial hemorrhage, midline shift or mass effect is present. The ventricular system is unremarkable. The basal cisterns are patent. No extra-axial collections are present. There are no findings to suggest acute dural sinus thrombosis or acute territorial infarct. No significant calvarial abnormalities are present. Visualized portions of the sinuses and mastoid air cells are clear. IMPRESSION: 1. No acute intracranial findings. 2. No acute calvarial fracture. ACT 112: Negative or not required by law. Electronically signed by: Bryn East M.D. 07/10/2023 7:22 PM Discharge Plan Visit Data Chief Complaint: Fall ED Provider: Phong Ryder Discharge Problem: Acute UTI, Generalized weakness, Fall Forms Stand Alone Forms: My [facility] Prescriptions Prescriptions: No Action buspirone 15 mg tablet 15 mg PO TID Creon 12,000-38,000 -60,000 unit capsule,delayed release(DR/EC) 1 cap PO TID Xarelto 20 mg tablet 20 mg PO DAILY ropinirole 0.5 mg tablet 0.5 mg PO HS escitalopram oxalate [Lexapro] 20 mg tablet 20 mg PO QAM benztropine 0.5 mg tablet 0.5 mg PO BID quetiapine 400 mg tablet 400 mg PO HS famotidine 20 mg tablet 20 mg PO BID 30 Days Qty: 60 0RF gabapentin 100 mg capsule 200 mg PO HS pantoprazole [Protonix] 40 mg tablet,delayed release (DR/EC) 40 mg PO QAM promethazine 12.5 mg tablet 12.5 mg PO TID PRN (Reason: nausea) Qty: 14 0RF metformin 500 mg tablet extended release 24 hr 500 mg PO BID cholestyramine (with sugar) 4 gram powder See Rx Instructions .ROUTE .COMPLEX Rx Instructions: DISSOLVE ONE AND ONE-HALF scoops into EIGHT ounces of JUICE OR water EVERY DAY Saccharomyces boulardii [Florastor] 250 mg Capsule 250 mg PO DAILY Qty: 10 0RF divalproex [Depakote ER] 500 mg tablet extended release 24 hr 1,000 mg PO HS Qty: 1 0RF ferrous sulfate [Iron (ferrous sulfate)] 325 mg (65 mg iron) tablet 325 mg PO Q OTHER DAY cyanocobalamin (vitamin B-12) [Vitamin B-12] 1,000 mcg tablet 1,000 mcg PO BID thiamine HCl (vitamin B1) [Vitamin B-1] 100 mg tablet 100 mg PO BID clonazepam 1 mg tablet 1 mg PO TID PRN (Reason: Anxiety) gabapentin 100 mg capsule 100 mg PO [id number] Rx Instructions: TAKES 100 MG QAM & NOON, THEN 200 MG AT HS. loratadine [Claritin] 10 mg Tablet 10 mg PO DAILY Referrals Referrals: Wen Garza DO [Primary Care Provider] -
[2023-07-10 19:17] LABS: Basophils # (auto) 0.08 K/uL (0.00-0.20); Basophils % (auto) 0.8 %; Eosinophils # (auto) 0.42 K/uL (0.00-0.50); Eosinophils % (auto) 4.2 %; Hematocrit (blood only) 39.5 % (37.0-47.0); Hemoglobin 13.5 g/dl (12.0-16.0); Immature Granulocytes # (auto) 0.07 K/uL (0.01-0.20); Immature Granulocytes % (auto) 0.7 %; Lymphocytes # (auto) 2.99 K/uL (1.20-3.40); Lymphocytes % (auto) 29.9 %; Mean Corpuscular Hemoglobin 31.7 pg (25.0-34.0); Mean Corpuscular Hgb Conc 34.2 g/dL (32.0-36.0); Mean Corpuscular Volume 92.7 fL (80.0-100.0); Mean Platelet Volume 9.7 fL (9.4-12.4); Monocytes # (auto) 0.62 K/uL (0.11-0.59); Monocytes % (auto) 6.2 %; Neutrophils # (auto) 5.81 K/uL (1.40-6.50); Neutrophils % (auto) 58.2 %; Platelet Count 156 K/uL (130-400); RDW Coefficient of Variation 11.9 % (11.5-14.5); RDW Standard Deviation 39.8 fL (36.4-46.3); Red Blood Count 4.26 M/uL (4.20-5.40); White Blood Count 9.99 K/ul (4.8-10.8)
--- NOTE | 2023-07-10 19:23 | CT Scan Report ---
CT OF THE HEAD WITHOUT CONTRAST CLINICAL HISTORY: fall COMPARISON STUDY: Head CT T June 14, 2023. TECHNIQUE: Helical axial images of the head were obtained without IV contrast. Automated exposure con trol was utilized for the study. A dose lowering technique was utilized adhering to the principles o f ALARA. FINDINGS: No acute intracranial hemorrhage, midline shift or mass effect is present. The ventricular system is unremarkable. The basal cisterns are patent. No extra-axial collections are present. There are no findings to suggest acute dural sinus thrombosis or acute territorial infarct. No significant calvarial abnormalities are present. Visualized portions of the sinuses and mastoid air cells are chema ar. IMPRESSION: 1. No acute intracranial findings. 2. No acute calvarial fracture. ACT 112: Negative or not required by law. Electronically signed by: Bryn East M.D. 07/10/2023 7:22 PM
--- NOTE | 2023-07-10 19:27 | CT Scan Report ---
CT OF THE CERVICAL SPINE WITHOUT CONTRAST CLINICAL HISTORY: fall COMPARISON STUDY: Cervical spine CT February 25, 2022. TECHNIQUE: Helical axial images of the cervical spine were obtained without IV contrast. Sagittal a nd coronal reconstructions were viewed. Automated exposure control was utilized for the study. A do se lowering technique was utilized adhering to the principles of ALARA. FINDINGS: Alignment of the cervical spine is anatomic. Vertebral body heights are maintained. No acut e cervical spine fracture or subluxation is present. There is no prevertebral edema. Facet joints are intact. Moderate multilevel facet arthrosis and degenerative disc disease is present. IMPRESSION: No acute cervical spine fracture or subluxation. ACT 112: Negative or not required by law. Electronically signed by: Bryn East M.D. 07/10/2023 7:25 PM
[2023-07-10 19:37] LABS: Anion Gap 5 (3-11); Blood Urea Nitrogen 15 mg/dl (6-23); Carbon Dioxide 25 mmol/L (21-32); Chloride 107 mmol/L (98-107); Est GFR (African American) 84.5 ml/min; Potassium 5.2 mmol/L (3.5-5.1); Sodium 137 mmol/L (136-145)
[2023-07-10 19:38] LABS: Alanine Aminotransferase 6 U/L (7-52); Albumin Globulin Ratio 1.1 (0.9-2); Albumin Level 3.4 gm/dl (3.4-5.0); Alkaline Phosphatase 74 U/L (34-104); Aspartate Aminotransferase 12 U/L (13-39); BUN Creatinine Ratio 17.9 (10-20); Bilirubin,Total 0.4 mg/dl (0.2-1.0); Creatinine Clr Calc Pharmacy 78.5 ml/min; Est GFR (Non-African American) 72.9 ml/min; Glucose 104 mg/dl (70-99(Fasting)); Lipase 15 U/L (11-82); Total Protein 6.4 gm/dl (6.0-8.3)
[2023-07-10 19:43] LABS: Troponin I High Sensitivity < 2.3 pg/ml (0-14)
[2023-07-10] MEDS ORDERED: ACETAMINOPHEN 325 MG TAB PO STA (21:33)
[2023-07-10 21:38] LABS: Appearance Urine Turbid (Clear); Bacteria Urine Automated 2+ (Negative); Bilirubin Urine Negative (Negative); Blood Urine 2+ (Negative); Cast Urine Automated 0 /lpf (0-5); Color Urine Yellow; Glucose Urine UA Negative (Negative); Ketones Urine Trace (Negative); Leukocyte Esterase Urine 3+ (Negative); Nitrite Urine Negative (Negative); Protein Urine Trace (Negative); Specific Gravity Urine 1.013 (1.000-1.030); Urobilinogen Urine Negative (Negative); WBC Urine Automated >30 /hpf (0-5); pH Urine 5.5 (4.5-7.5)
[2023-07-10 21:44] LABS: Troponin I High Sensitivity 2.6 pg/ml (0-14)
[2023-07-10] MEDS ORDERED: cefTRIAXone SODIUM 2,000 MG/70 ML BAG IV STA (22:11)
[2023-07-10 23:19] LABS: Magnesium 1.6 mg/dl (1.7-2.4)
--- NOTE | 2023-07-10 23:51 | History & Physical Report ---
Date of Service July 10, 2023 Assessment & Plan (1) Complicated UTI (urinary tract infection): Plan: No sepsis for now Rule out structural pathology given abdominal pain complaints and concurrent Xarelto Rx for history PE Mild hyperkalemia, possible from clinical dehydration given ketonuria DM 2 on oral medications, well-controlled as of recent hemoglobin A1c of 6.5 this month chronic pain schizophrenia/anxiety/mood disorder, at baseline Ambulatory dysfunction ongoing tobacco abuse Medical telemetry given hyperkalemia Recheck serum potassium after IVF bolus given at the ER Urine CS, Ceftriaxone CT abdomen pelvis Re: Abdominal pain Hold Xarelto until CT abdomen pelvis results known and H&H stable given recent head trauma Basal bolus insulin, ISS BG goal 1 10-1 40, carb count coverage Nicotine patch PT OT eval DVT prophylaxis. SCDs while Xarelto on hold Full code Patient requests for daughter to be given periodic updates regarding her care. Marcela Scott, contact #[phone]. Text document was generated using [employer] voice recognition software. It may contain grammatical or spelling errors. Kindly contact undersigned for clarification of any documentation item in question. History of Present Illness Chief Complaint: Fall Primary Care Provider: Wen Garza DO (Patient has not met her.) History obtained from patient and records. Medical history significant for history of PE on Xarelto, DM 2 on oral medications, GERD, IBS, chronic pain, schizophrenia/anxiety/mood disorder, ongoing tobacco abuse. Last confinement June 2023 for metabolic encephalopathy secondary to hypercapnia and E. coli UTI. Patient fell backwards as she was reaching for some pastries at home today. Minimal posterior head discomfort. No LOC, no chest pain, no SOB. Patient's daughter could not get her up from the floor. Patient also complaining of dysuria symptoms with achy abdominal pain. No hematuria, no fever, no chills. IV ceftriaxone administered at the ER. Medical History as above Surgical History : section, cholecystectomy, ROLANDO Family History : Bowel cancer, DM Personal/Social history : 1 pack daily, EtOH intake, disabled, lives with daughter Allergies Allergy/AdvReac Type Severity Reaction Status Date / Time bee venom protein (honey bee) Allergy Intermediate unk Unverified 07/10/23 19:02 egg AdvReac Severe Vomiting Verified 07/10/23 19:02 Penicillins AdvReac Severe VOMITING/IT Verified 07/10/23 19:02 DAVON Home Medications Medication Instructions Recorded Confirmed Type buspirone 15 mg tablet 15 mg PO TID 10/25/20 07/10/23 History [id number] 1 cap PO TID 10/25/20 07/10/23 History 12,000-38,000-60,000 unit capsule,delayed rel (Creon) rivaroxaban 20 mg tablet (Xarelto) 20 mg PO DAILY 10/25/20 07/10/23 History escitalopram oxalate 20 mg tablet 20 mg PO QAM 03/18/21 07/10/23 History (Lexapro) ropinirole 0.5 mg tablet 0.5 mg PO HS 03/18/21 07/10/23 History ferrous sulfate 325 mg (65 mg 325 mg PO Q OTHER DAY 06/03/21 07/10/23 History iron) tablet (Iron (ferrous sulfate)) cyanocobalamin (vitamin B-12) 1,000 mcg PO BID 08/05/21 07/10/23 History 1,000 mcg tablet (Vitamin B-12) thiamine HCl (vitamin B1) 100 mg 100 mg PO BID 10/11/21 07/10/23 History tablet (Vitamin B-1) benztropine 0.5 mg tablet 0.5 mg PO BID 07/25/22 07/10/23 History quetiapine 400 mg tablet 400 mg PO HS 07/25/22 07/10/23 History clonazepam 1 mg tablet 1 mg PO TID PRN Anxiety 01/13/23 07/10/23 History gabapentin 100 mg capsule 100 mg PO BID17 01/13/23 07/10/23 History loratadine 10 mg tablet (Claritin) 10 mg PO DAILY 01/13/23 07/10/23 History famotidine 20 mg tablet 20 mg PO BID 30 days #60 tabs 02/14/23 07/10/23 Rx gabapentin 100 mg capsule 200 mg PO HS 03/14/23 07/10/23 History pantoprazole 40 mg tablet,delayed 40 mg PO QAM 03/14/23 07/10/23 History release (Protonix) promethazine 12.5 mg tablet 12.5 mg PO TID PRN nausea #14 tabs 03/17/23 07/10/23 Rx cholestyramine (with sugar) 4 gram See Rx Instructions .Route .COMPLEX 06/14/23 07/10/23 History oral powder metformin 500 mg tablet,extended 500 mg PO BID 06/14/23 07/10/23 History release 24 hr Saccharomyces boulardii 250 mg 250 mg PO DAILY #10 caps 06/19/23 07/10/23 Rx capsule (Florastor) divalproex 500 mg tablet,extended 1,000 mg PO HS #1 tab 06/19/23 07/10/23 Rx release 24 hr (Depakote ER) Past Med/Surg History Medical History Anemia Anxiety and depression Arthritis Aspiration pneumonia Chronic diarrhea Diabetes Enteritis due to Vivian virus Folate deficiency Generalized weakness GERD (gastroesophageal reflux disease) History of pulmonary embolism Hyperparathyroidism Hypothyroid Intractable nausea and vomiting Iron deficiency anemia Irritable bowel syndrome Pulmonary embolism Rectal bleeding Restless leg Schizoaffective disorder Smoking Surgical History History of section x2 History of cholecystectomy History of hysterectomy Family History (Updated 06/14/23 @ 13:58 by Heena Denny PA-C) Mother Diabetes Sister Diabetes Denies family history of Inflammatory bowel disease Social History Smoking Status: Current every day smoker Tobacco Type: Cigarettes Cigarettes Per Day: unknown; Second Hand Exposure: Yes; Do You Dip or Chew Tobacco: No; Hx Alcohol Use: No Hx Substance Use: No Preferred Language: Cymro Communication Ability: Effective Orthodontic Band Maker Required: No Beliefs That Will Affect Care: Spiritual marital status: Current Living Situation: Family Current Living Situation Comment: Lives with daughter How many Children do You have: 2 Feels Safe at Home: Yes Assistive Devices: Walker and Wheelchair Review of Systems Review of Systems: As per HPI, all other systems reviewed and negative Physical Exam Physical Exam: GENERAL: Comfortable, pleasant, morbidly obese, looks older than stated age, no respiratory distress SKIN: Normal color, warm HEENT: [place] palpebral conjunctivae, no ptosis, chronic lip asymmetry, dry buccal mucosa, edentulous NECK : Supple, short neck, no tenderness CHEST : Decreased breath sounds, no tenderness HEART : RRR, no obvious murmurs ABDOMEN: Some distention, minimal hypogastric tenderness EXTREMITIES : No LE swelling/tenderness, no other conspicuous deformities noted NEUROLOGIC : Coherent, no facial asymmetry, gait and stance not assessed Results & Data Results & Data Vital Signs (Past 12 Hours) Vital Signs Temp Pulse Resp BP Pulse Ox O2 Del Method 07/10/23 23:00 71 18 07/10/23 23:00 106/62 07/10/23 22:30 72 17 07/10/23 22:30 111/66 07/10/23 22:00 75 17 07/10/23 22:00 104/63 07/10/23 21:30 74 19 07/10/23 21:30 115/71 07/10/23 21:03 123/77 07/10/23 21:03 74 19 07/10/23 21:00 74 16 07/10/23 20:30 71 19 07/10/23 20:30 104/65 07/10/23 20:00 72 17 96 07/10/23 20:00 105/62 07/10/23 19:30 73 18 94 07/10/23 19:30 94/63 L 07/10/23 20:17 Room Air 07/10/23 19:18 74 16 101/61 92 Room Air 07/10/23 19:14 73 16 91/55 L 94 Room Air 07/10/23 19:00 76 18 07/10/23 18:50 80 14 92 07/10/23 18:36 36.9 C 74 18 109/63 94 Room Air Laboratory Results Laboratory Results WBC 9.99 K/ul (4.8-10.8) 07/10/23 19:00 RBC 4.26 M/uL (4.20-5.40) 07/10/23 19:00 Hgb 13.5 g/dl (12.0-16.0) 07/10/23 19:00 Hct 39.5 % (37.0-47.0) 07/10/23 19:00 MCV 92.7 fL (80.0-100.0) 07/10/23 19:00 MCH 31.7 pg (25.0-34.0) 07/10/23 19:00 MCHC 34.2 g/dL (32.0-36.0) 07/10/23 19:00 RDW Std Deviation 39.8 fL (36.4-46.3) 07/10/23 19:00 RDW Coeff of [place] 11.9 % (11.5-14.5) 07/10/23 19:00 Plt Count 156 K/uL (130-400) 07/10/23 19:00 MPV 9.7 fL (9.4-12.4) 07/10/23 19:00 Immature Gran % (Auto) 0.7 % 07/10/23 19:00 Neut % (Auto) 58.2 % 07/10/23 19:00 Lymph % (Auto) 29.9 % 07/10/23 19:00 [place] % (Auto) 6.2 % 07/10/23 19:00 Eos % (Auto) 4.2 % 07/10/23 19:00 Baso % (Auto) 0.8 % 07/10/23 19:00 Neut # (Auto) 5.81 K/uL (1.40-6.50) 07/10/23 19:00 Lymph # (Auto) 2.99 K/uL (1.20-3.40) 07/10/23 19:00 [place] # (Auto) 0.62 K/uL (0.11-0.59) H 07/10/23 19:00 Eos # (Auto) 0.42 K/uL (0.00-0.50) 07/10/23 19:00 Baso # (Auto) 0.08 K/uL (0.00-0.20) 07/10/23 19:00 Immature Gran # (Auto) 0.07 K/uL (0.01-0.20) 07/10/23 19:00 Sodium 137 mmol/L (136-145) 07/10/23 19:00 Potassium 5.2 mmol/L (3.5-5.1) H 07/10/23 19:00 Chloride 107 mmol/L (98-107) 07/10/23 19:00 Carbon Dioxide 25 mmol/L (21-32) 07/10/23 19:00 Anion Gap 5 (3-11) 07/10/23 19:00 BUN 15 mg/dl (6-23) 07/10/23 19:00 Creatinine 0.84 mg/dl (0.6-1.2) 07/10/23 19:00 Est Cr Clr Drug Dosing 78.5 ml/min 07/10/23 19:00 Est GFR ( Amer) 84.5 ml/min 07/10/23 19:00 Est GFR (Non-Af Amer) 72.9 ml/min 07/10/23 19:00 BUN/Creatinine Ratio 17.9 (10-20) 07/10/23 19:00 Glucose 104 mg/dl (70-99(Fasting)) H 07/10/23 19:00 Calcium 9.0 mg/dl (8.6-10.3) 07/10/23 19:00 Magnesium 1.6 mg/dl (1.7-2.4) L 07/10/23 20:58 Total Bilirubin 0.4 mg/dl (0.2-1.0) 07/10/23 19:00 AST 12 U/L (13-39) L 07/10/23 19:00 ALT 6 U/L (7-52) L 07/10/23 19:00 Alkaline Phosphatase 74 U/L (34-104) 07/10/23 19:00 Total Creatine Kinase 20 U/L (26-192) L 07/10/23 20:58 Troponin I High Sens 2.6 pg/ml (0-14) 07/10/23 20:58 Total Protein 6.4 gm/dl (6.0-8.3) 07/10/23 19:00 Albumin 3.4 gm/dl (3.4-5.0) 07/10/23 19:00 Globulin 3.0 gm/dl (2.5-4.0) 07/10/23 19:00 Albumin/Globulin Ratio 1.1 (0.9-2) 07/10/23 19:00 Lipase 15 U/L (11-82) 07/10/23 19:00 Urine Color Yellow 07/10/23 21:21 Urine Appearance Turbid (Clear) A 07/10/23 21:21 Urine pH 5.5 (4.5-7.5) 07/10/23 21:21 Ur Specific [place] 1.013 (1.000-1.030) 07/10/23 21:21 Urine Protein Trace (Negative) H 07/10/23 21:21 Urine Glucose (UA) Negative (Negative) 07/10/23 21:21 Urine Ketones Trace (Negative) H 07/10/23 21:21 Urine Blood 2+ (Negative) H 07/10/23 21:21 Urine Nitrite Negative (Negative) 07/10/23 21:21 Urine Bilirubin Negative (Negative) 07/10/23 21:21 Urine Urobilinogen Negative (Negative) 07/10/23 21:21 Ur Leukocyte Esterase 3+ (Negative) H 07/10/23 21:21 Urine WBC (Auto) >30 /hpf (0-5) H 07/10/23 21:21 Urine RBC (Auto) 5-10 /hpf (0-4) H 07/10/23 21:21 U Hyaline Cast (Auto) 0 /lpf (0-5) 07/10/23 21:21 U Epithel Cells (Auto) 5-10 /lpf (0-5) H 07/10/23 21:21 Urine Bacteria (Auto) 2+ (Negative) H 07/10/23 21:[address] 07/10/23 18:34 CT OF THE CERVICAL SPINE WITHOUT CONTRAST CLINICAL HISTORY: fall COMPARISON STUDY: Cervical spine CT February 25, 2022. TECHNIQUE: Helical axial images of the cervical spine were obtained without IV contrast. Sagittal and coronal reconstructions were viewed. Automated exposure control was utilized for the study. A dose lowering technique was utilized adhering to the principles of ALARA. FINDINGS: Alignment of the cervical spine is anatomic. Vertebral body heights are maintained. No acute cervical spine fracture or subluxation is present. There is no prevertebral edema. Facet joints are intact. Moderate multilevel facet arthrosis and degenerative disc disease is present. IMPRESSION: No acute cervical spine fracture or subluxation. ACT 112: Negative or not required by law. Electronically signed by: Bryn East M.D. 07/10/2023 7:[address] 07/10/23 18:34 CT OF THE HEAD WITHOUT CONTRAST CLINICAL HISTORY: fall COMPARISON STUDY: Head CT T June 14, 2023. TECHNIQUE: Helical axial images of the head were obtained without IV contrast. Automated exposure control was utilized for the study. A dose lowering technique was utilized adhering to the principles of ALARA. FINDINGS: No acute intracranial hemorrhage, midline shift or mass effect is present. The ventricular system is unremarkable. The basal cisterns are patent. No extra-axial collections are present. There are no findings to suggest acute dural sinus thrombosis or acute territorial infarct. No significant calvarial abnormalities are present. Visualized portions of the sinuses and mastoid air cells are clear. IMPRESSION: 1. No acute intracranial findings. 2. No acute calvarial fracture. ACT 112: Negative or not required by law. Electronically signed by: Bryn East M.D. 07/10/2023 7:22 PM Diagnostic Findings EKG as per my interpretation : Rate 75, NSR, RAD, RBBB, T wave abnormalities inferior and lateral leads
[2023-07-10] MEDS ORDERED: MAGNESIUM SULFATE / D5W 1 GM/100 ML BAG IV STA (23:54)
[2023-07-10] MEDS ORDERED: oxyCODONE HCL IR 5 MG TAB (IMMEDIATE RELEASE) PO PRN (23:59)
[2023-07-10] MEDS ORDERED: PROMETHAZINE HCL 12.5 MG in SODIUM CHLORIDE 0.9% 50 ML IV PRN (23:59)
[2023-07-11] MEDS ORDERED: SODIUM CHLORIDE 0.9% 1,000 ML IV STA (00:02)
[2023-07-11] MEDS ORDERED: NICOTINE 21 MG/24 HR TDSY TD STA (00:03)
[2023-07-11 00:35] LABS: Potassium 4.8 mmol/L (3.5-5.1)
[2023-07-11] MEDS ORDERED: OPTIRAY 320 100ml IV ONE (01:34)
[2023-07-11] MEDS ORDERED: GLUCAGON FOR INJ 1 MG VIAL SQ PRN (02:34)
[2023-07-11] MEDS ORDERED: GLUCOSE 40% GEL 15 GM TUBE PO PRN (02:34)
[2023-07-11] MEDS ORDERED: CARBOHYDRATES FOR HYPOGLYCEMIA PO PRN (02:34)
[2023-07-11] MEDS ORDERED: DEXTROSE 50% 50 ML SYRINGE IV PRN (02:34)
[2023-07-11] MEDS ORDERED: GLUCOSE 10 TAB/TUBE PO PRN (02:34)
--- NOTE | 2023-07-11 02:38 | CT Scan Report ---
Exam(s): CT ABDOMEN + PELVIS With Contrast IV Amt: 92 ml EXAM: CT Abdomen and Pelvis With Intravenous Contrast CLINICAL HISTORY: Reason for exam: abd pain. TECHNIQUE: Axial computed tomography images of the abdomen and pelvis with intravenous contrast. CTDI is 28.14 mGy and DLP is 1394.82 mGy-cm. Automated exposure control was utilized for the study. A dose lowering technique was utilized adhering to the principles of ALARA. CONTRAST: Patient received 92 ml of IV contrast COMPARISON: 06/14/2023 FINDINGS: Lung bases: Unremarkable. No mass. No consolidation. ABDOMEN: Liver: Unremarkable. No mass. Gallbladder and bile ducts: Gallbladder has been removed. No ductal dilation. Pancreas: Unremarkable. No mass. No ductal dilation. Spleen: Unremarkable. No splenomegaly. Adrenals: Unremarkable. No mass. Kidneys and ureters: Unremarkable. No solid mass. No hydronephrosis. Stomach and bowel: Unremarkable. No obstruction. No mucosal thickening. PELVIS: Appendix: No findings to suggest acute appendicitis. Bladder: Unremarkable. No mass. Reproductive: Unremarkable as visualized. ABDOMEN and PELVIS: Intraperitoneal space: Unremarkable. No free air. No significant fluid collection. Bones/joints: No acute fracture. No dislocation. Soft tissues: Unremarkable. Vasculature: Unremarkable. No abdominal aortic aneurysm. Lymph nodes: Unremarkable. No enlarged lymph nodes. IMPRESSION: No acute findings in the abdomen or pelvis. Electronically signed by: Alessandro Davenport M.D. 07/11/23 02:37 AM
[2023-07-11] MEDS: BENZTROPINE MESYLATE 0.5 MG TAB PO SCH ×3 (02:59→19:55)
[2023-07-11] MEDS: busPIRone 15 MG TAB PO SCH ×4 (03:00→19:55)
[2023-07-11] MEDS: DIVALPROEX EXTENDED RELEASE 500 MG TAB PO SCH ×2 (03:00→19:58)
[2023-07-11] MEDS: INSULIN ASPART PER UNIT CHARGE SC SCH ×5 (03:09→20:51)
[2023-07-11 04:43] LABS: Basophils # (auto) 0.04 K/uL (0.00-0.20); Basophils % (auto) 0.5 %; Eosinophils # (auto) 0.36 K/uL (0.00-0.50); Eosinophils % (auto) 4.1 %; Hematocrit (blood only) 37.1 % (37.0-47.0); Hemoglobin 12.8 g/dl (12.0-16.0); Immature Granulocytes # (auto) 0.04 K/uL (0.01-0.20); Immature Granulocytes % (auto) 0.5 %; Lymphocytes % (auto) 34.9 %; Mean Corpuscular Hemoglobin 31.9 pg (25.0-34.0); Mean Corpuscular Hgb Conc 34.5 g/dL (32.0-36.0); Mean Corpuscular Volume 92.5 fL (80.0-100.0); Mean Platelet Volume 9.4 fL (9.4-12.4); Monocytes # (auto) 0.63 K/uL (0.11-0.59); Monocytes % (auto) 7.1 %; Neutrophils % (auto) 52.9 %; Platelet Count 154 K/uL (130-400); RDW Coefficient of Variation 11.8 % (11.5-14.5); RDW Standard Deviation 39.9 fL (36.4-46.3); Red Blood Count 4.01 M/uL (4.20-5.40); White Blood Count 8.87 K/ul (4.8-10.8)
[2023-07-11 04:57] LABS: BUN Creatinine Ratio 18.3 (10-20); Calcium 8.7 mg/dl (8.6-10.3); Creatinine Clr Calc Pharmacy 92.8 ml/min; Est GFR (African American) 103.6 ml/min; Est GFR (Non-African American) 89.4 ml/min; Potassium 4.4 mmol/L (3.5-5.1)
[2023-07-11] MEDS: NICOTINE 21 MG/24 HR TDSY TD SCH (09:40)
[2023-07-11] MEDS: PANCREAZE (LIPASE 10,500U) CAP PO SCH ×3 (09:40→18:08)
[2023-07-11] MEDS: ESCITALOPRAM OXALATE 20 MG TAB PO SCH (09:41)
[2023-07-11] MEDS: LORATADINE 10 MG TAB PO SCH (09:41)
[2023-07-11] MEDS: SACCHAROMYCES BOULARDII 250 MG CAP PO SCH (09:41)
[2023-07-11] MEDS: PANTOprazole 40 MG TAB PO SCH (09:41)
[2023-07-11] MEDS: THIAMINE HCL 100 MG TAB PO SCH ×2 (09:41→19:56)
[2023-07-11] MEDS: FAMOTIDINE 20 MG TAB PO SCH ×2 (09:41→19:54)
[2023-07-11] MEDS: CYANOCOBALAMIN (B-12) 500 MCG TABLET PO SCH ×2 (09:41→19:55)
[2023-07-11] MEDS: GABAPENTIN 100 MG CAP PO SCH ×3 (09:42→19:58)
--- NOTE | 2023-07-11 14:23 | Hospitalist Progress Note ---
Date of Service July 11, 2023 Assessment & Plan (1) Complicated UTI (urinary tract infection): Plan: Complicated UTI Abd pelvis CT unremarkable UA suggestive of infection, urine Cx growing gram negative bacilli Continue Rocephin Hyperkalemia Due to dehydration Improved from 5.2 to 4 range after IV fluids in the ED Currently resolved Pt admitted to med/surg for a bed as hyperkalemia resolved. Diarrhea C diff testing ordered Ordered cholestyramine Hx of PE On xarelto, restarted as H/H stable and no intracranial bleed on head CT DMII Holding home oral meds well-controlled as of recent hemoglobin A1c of 6.5 this month Basal bolus insulin, ISS BG goal 110-140, carb count coverage schizophrenia/anxiety/mood disorder at baseline Ambulatory dysfunction PT/OT Tobacco Use Nicotine patch DVT prophylaxis: Xarelto restarted Full code Patient requests for daughter to be given periodic updates regarding her care. Marcela Scott, contact #[phone]. Admission and Anticipated Discharge Date Admission Date: July 10, 2023 Subjective Pt seen today, while down in the ED due to lack of telemetry beds. Was eating. States that she is having copious diarrhea but believes it might be related to the fact that she did not take her some of her home meds, in partciular cholestyramine. Denies any other acute concerns. Review of Systems Review of Systems: All systems reviewed & are unremarkable except as noted in Subjective Physical Exam Physical Exam: General: Alert, oriented. No acute distress, sitting up eating Psych: Appropriate mood and affect Neuro: Difficulty moving HEENT: NC/AT CV: RRR Resp: no increased effort of breathing. Abdomen: Soft, nontender, Extremities:edema in lower extremities bilaterally. Results & Data Results & Data Vital Signs (Past 12 Hours) Vital Signs Temp Pulse Pulse Resp BP Pulse Ox Pulse Ox 07/11/23 07:06 93 07/11/23 07:05 73 108/80 93 07/11/23 06:48 73 18 108/80 95 07/11/23 04:38 74 07/11/23 04:39 36.5 C 75 18 90 07/11/23 02:35 O2 Del Method O2 Del Method 07/11/23 07:06 Room Air 07/11/23 07:05 Room Air 07/11/23 06:48 Room Air 07/11/23 04:38 07/11/23 04:39 Room Air 07/11/23 02:35 Room Air
[2023-07-11] MEDS: RIVAROXABAN 20 MG TAB PO SCH (15:55)
[2023-07-11] MEDS: QUEtiapine FUMARATE 200 MG TAB PO SCH (19:57)
[2023-07-11] MEDS: rOPINIRole HCL 0.25 MG TABLET PO SCH (19:57)
[2023-07-11] MEDS: clonazePAM 1 MG TAB PO PRN (20:03)
--- NOTE | 2023-07-11 20:52 | Electrocardiogram Report ---
Test Reason : Blood Pressure : / mmHG Vent. Rate : 077 BPM Atrial Rate : 077 BPM P-R Int : 162 ms QRS Dur : 134 ms QT Int : 440 ms P-R-T Axes : 038 114 000 degrees QTc Int : 497 ms Normal sinus rhythm Right bundle branch block Abnormal ECG When compared with ECG of 14-JUN-2023 09:43, No significant change was found Confirmed by Cruzito Martinez ([id number]) on 07/11/2023 8:52:01 PM Referred By: REFERRED SELF Confirmed By:Cruzito Martinez
[2023-07-11] MEDS: CHOLESTYRAMINE LIGHT 4 GM PKT PO SCH (22:00)
[2023-07-11] MEDS ORDERED: cefTRIAXone SODIUM 2,000 MG in DEXTROSE 5% 50 ML IV SCH (23:00)
[2023-07-12 06:34] LABS: Basophils # (auto) 0.05 K/uL (0.00-0.20); Basophils % (auto) 0.6 %; Eosinophils # (auto) 0.36 K/uL (0.00-0.50); Eosinophils % (auto) 4.5 %; Hematocrit (blood only) 35.9 % (37.0-47.0); Hemoglobin 12.5 g/dl (12.0-16.0); Immature Granulocytes # (auto) 0.06 K/uL (0.01-0.20); Immature Granulocytes % (auto) 0.8 %; Lymphocytes # (auto) 3.42 K/uL (1.20-3.40); Lymphocytes % (auto) 42.8 %; Mean Corpuscular Hemoglobin 31.3 pg (25.0-34.0); Mean Corpuscular Hgb Conc 34.8 g/dL (32.0-36.0); Mean Corpuscular Volume 89.8 fL (80.0-100.0); Mean Platelet Volume 9.5 fL (9.4-12.4); Monocytes % (auto) 7.5 %; Neutrophils # (auto) 3.51 K/uL (1.40-6.50); Neutrophils % (auto) 43.8 %; Platelet Count 147 K/uL (130-400); RDW Coefficient of Variation 11.6 % (11.5-14.5)
[2023-07-12 07:22] LABS: BUN Creatinine Ratio 14.3 (10-20); Creatinine Clr Calc Pharmacy 74.1 ml/min; Est GFR (African American) 84.5 ml/min; Est GFR (Non-African American) 72.9 ml/min; Potassium 4.3 mmol/L (3.5-5.1)
[2023-07-12] MEDS: NICOTINE 21 MG/24 HR TDSY TD SCH (09:17)
[2023-07-12] MEDS: CHOLESTYRAMINE LIGHT 4 GM PKT PO SCH ×2 (09:19→21:01)
--- NOTE | 2023-07-12 09:19 | Hospitalist Progress Note ---
Date of Service July 12, 2023 Assessment & Plan (1) Complicated UTI (urinary tract infection): Plan: Complicated UTI Abd pelvis CT unremarkable UA suggestive of infection, urine Cx growing gram negative bacilli Rocephin changed to PO Bactrim Pyridium added for comfort. Diarrhea Ordered cholestyramine Cont to monitor Hx of PE On xarelto, restarted as H/H stable and no intracranial bleed on head CT DMII Holding home oral meds well-controlled as of recent hemoglobin A1c of 6.5 this month Basal bolus insulin, ISS BG goal 110-140, carb count coverage schizophrenia/anxiety/mood disorder chronic, stable. Cont benztroine, buspirone, clonazepam, depakote, lexapro, gabapentin, seroquel 400mg QHS all per home regimen. Ambulatory dysfunction/Morbid Obesity PT/OT/lifestyle mods recommended Tobacco Use Nicotine patch DVT prophylaxis: Xarelto Full code [facility] Hospital[facility] Admission and Anticipated Discharge Date Admission Date: July 10, 2023 Subjective 67 yo morbidly obese female on multiple sedating medications had a fall at home prior to arrival +dysuria unwilling to adjust meds regimen even if polypharmacy contributing to falls no other acute issues today Physical Exam Physical Exam: CONSTITUTIONAL: morbid obesity, vitals as above, generally well-appearing, NAD EYES: normal conjunctivae, no scleral icterus ENT: external ear and nose normal, MMM NECK: trachea midline RESPIRATORY: clear to auscultation bilaterally, no crackles, rales or wheezes, normal respiratory effort CARDIOVASCULAR: regular rate and rhythm, S1 and 2 heard without murmurs, gallops or rubs, no JVD, no peripheral edema, CHEST: inspection of chest was normal GASTROINTESTINAL: soft, nontender, ND, no guarding MUSCULOSKELETAL: strength 5/5 throughout, head is normocephalic and atraumatic, SKIN: warm and dry, NEUROLOGIC: CN 2-12 grossly intact, no sensory deficit, normal cognition, normal speech, no tremor PSYCHIATRIC: alert cooperative and oriented to person, place and time. Euthymic mood, makes good eye contact, language grossly intact, recent and remote memory grossly intact. Results & Data Results & Data Vital Signs (Past 12 Hours) Vital Signs Temp Pulse Resp BP Pulse Ox O2 Del Method 07/12/23 07:08 36.5 C 68 16 112/73 94 Room Air 07/11/23 21:48 36.7 C 75 20 135/80 96 Room Air Laboratory Results Short CBC 07/12/23 Range/Units 05:55 WBC 8.00 (4.8-10.8) K/ul Hgb 12.5 (12.0-16.0) g/dl Hct 35.9 L (37.0-47.0) % Plt Count 147 (130-400) K/uL BMP 07/12/23 05:55 Sodium 135 L Potassium 4.3 Chloride 103 Carbon Dioxide 26 BUN 12 Creatinine 0.84 Glucose 139 H Calcium 9.0 Medications Administered Current Inpatient Medications Acetaminophen (Acetaminophen 325 Mg Tab) 650 mg PO Q6H PRN PRN Reason: Fever/Pain Stop: 08/10/23 00:00 Lipase/Protease/Amylase (Pancreaze (Lipase 10,500u) Cap) 1 cap PO TIDM MARY Stop: 08/10/23 07:59 Last Admin: 07/11/23 18:08 Dose: 1 cap Benztropine Mesylate (Benztropine Mesylate 0.5 Mg Tab) 0.5 mg PO BID MARY Stop: 08/10/23 02:33 Last Admin: 07/11/23 19:55 Dose: 0.5 mg Buspirone HCl (Buspirone 15 Mg Tab) 15 mg PO TID MARY Stop: 08/10/23 02:33 Last Admin: 07/11/23 19:55 Dose: 15 mg Cholestyramine Resin (Cholestyramine Light 4 Gm Pkt) 4 gm PO BID@1000,2200 MARY Stop: 08/10/23 21:59 Last Admin: 07/11/23 22:00 Dose: 4 gm Clonazepam (Clonazepam 1 Mg Tab) 1 mg PO TID PRN PRN Reason: Anxiety Stop: 08/10/23 02:33 Last Admin: 07/11/23 20:03 Dose: 1 mg Cyanocobalamin (Cyanocobalamin (B-12) 500 Mcg Tablet) 1,000 mcg PO BID MARY Stop: 08/10/23 08:59 Last Admin: 07/11/23 19:55 Dose: 1,000 mcg Dextrose (Dextrose 50% 50 Ml Syringe) 25 - 50 ml IV UD PRN; Protocol PRN Reason: Hypoglycemia Protocol Stop: 08/10/23 02:33 Divalproex Sodium (Divalproex Extended Release 500 Mg Tab) 1,000 mg PO HS [facility] Stop: 08/10/23 02:33 Last Admin: 07/11/23 19:58 Dose: 1,000 mg Escitalopram Oxalate (Escitalopram Oxalate 20 Mg Tab) 20 mg PO QAM [facility] Stop: 08/10/23 08:59 Last Admin: 07/11/23 09:41 Dose: 20 mg Famotidine (Famotidine 20 Mg Tab) 20 mg PO BID [facility] Stop: 08/10/23 08:59 Last Admin: 07/11/23 19:54 Dose: 20 mg Ferrous Sulfate (Ferrous Sulfate 325 Mg Tab) 325 mg PO Q2D [facility] Stop: 08/11/23 08:59 Gabapentin (Gabapentin 100 Mg Cap) 200 mg PO HS [facility] Stop: 08/10/23 20:59 Last Admin: 07/11/23 19:58 Dose: 200 mg Gabapentin (Gabapentin 100 Mg Cap) 100 mg PO BID17 [facility] Stop: 08/10/23 08:59 Last Admin: 07/11/23 18:08 Dose: 100 mg Glucagon (Glucagon For Inj 1 Mg Vial) 1 mg SQ UD PRN; Protocol PRN Reason: Hypoglycemia Protocol Stop: 08/10/23 02:33 Glucose (Glucose 10 Tab/Tube) 4 - 8 tab PO UD PRN; Protocol PRN Reason: Hypoglycemia Treatment Stop: 08/10/23 02:33 Glucose (Glucose 40% Gel 15 Gm Tube) 15 - 30 gm PO UD PRN; Protocol PRN Reason: Hypoglycemia Protocol Stop: 08/10/23 02:33 Promethazine HCl 12.5 mg/ (Sodium Chloride) 50.5 mls @ 202 mls/hr IV Q6H PRN PRN Reason: Nausea And Vomiting Stop: 08/09/23 23:58 Insulin Aspart (Insulin Aspart Per Unit Charge) 0 units SC ACHS [facility] Stop: 08/10/23 02:33 Last Admin: 07/11/23 20:51 Dose: Not Given Loratadine (Loratadine 10 Mg Tab) 10 mg PO DAILY [facility] Stop: 08/10/23 08:59 Last Admin: 07/11/23 09:41 Dose: 10 mg Miscellaneous (Remove Nicoderm Patch) 1 each N/A DAILY@0859 [facility] Stop: 08/10/23 08:58 Last Admin: 07/11/23 11:00 Dose: 1 each Miscellaneous (Carbohydrates For Hypoglycemia ) 15 - 30 gm PO UD PRN PRN Reason: Hypoglycemia Protocol Stop: 08/10/23 02:33 Nicotine (Nicotine 21 Mg/24 Hr Tdsy) 21 mg TD QAM [facility] Stop: 08/10/23 08:59 Last Admin: 07/11/23 09:40 Dose: 21 mg Oxycodone HCl (Oxycodone Hcl Ir 5 Mg Tab (Immediate Release)) 5 mg PO Q4H PRN PRN Reason: Pain Stop: 07/24/23 23:58 Last Admin: 07/12/23 01:13 Dose: 5 mg Pantoprazole Sodium (Pantoprazole 40 Mg Tab) 40 mg PO QAM [facility] Stop: 08/10/23 08:59 Last Admin: 07/11/23 09:41 Dose: 40 mg Quetiapine Fumarate (Quetiapine Fumarate 200 Mg Tab) 400 mg PO HS [facility] Stop: 08/10/23 20:59 Last Admin: 07/11/23 19:57 Dose: 400 mg Rivaroxaban (Rivaroxaban 20 Mg Tab) 20 mg PO QDD [facility] Stop: 08/10/23 14:59 Last Admin: 07/11/23 15:55 Dose: 20 mg Ropinirole HCl (Ropinirole Hcl 0.25 Mg Tablet) 0.5 mg PO HS [facility] Stop: 08/10/23 20:59 Last Admin: 07/11/23 19:57 Dose: 0.5 mg Saccharomyces Boulardii (Saccharomyces Boulardii 250 Mg Cap) 250 mg PO DAILY [facility] Stop: 08/10/23 08:59 Last Admin: 07/11/23 09:41 Dose: 250 mg Thiamine HCl (Thiamine Hcl 100 Mg Tab) 100 mg PO BID [facility] Stop: 08/10/23 08:59 Last Admin: 07/11/23 19:56 Dose: 100 mg Trimethoprim/Sulfamethoxazole (Sulfamethoxazole/Trimethoprim Ds 800/160mg Tab) 1 tab PO Q12H [facility] Stop: 07/17/23 09:29
[2023-07-12] MEDS: PANCREAZE (LIPASE 10,500U) CAP PO SCH ×3 (09:20→17:13)
[2023-07-12] MEDS: BENZTROPINE MESYLATE 0.5 MG TAB PO SCH ×2 (09:20→20:53)
[2023-07-12] MEDS: ESCITALOPRAM OXALATE 20 MG TAB PO SCH (09:20)
[2023-07-12] MEDS: busPIRone 15 MG TAB PO SCH ×3 (09:20→20:52)
[2023-07-12] MEDS: LORATADINE 10 MG TAB PO SCH (09:20)
[2023-07-12] MEDS: PANTOprazole 40 MG TAB PO SCH (09:21)
[2023-07-12] MEDS: CYANOCOBALAMIN (B-12) 500 MCG TABLET PO SCH ×2 (09:21→20:54)
[2023-07-12] MEDS: SACCHAROMYCES BOULARDII 250 MG CAP PO SCH (09:21)
[2023-07-12] MEDS: GABAPENTIN 100 MG CAP PO SCH ×3 (09:22→20:53)
[2023-07-12] MEDS: FERROUS SULFATE 325 MG TAB PO SCH (09:22)
[2023-07-12] MEDS: FAMOTIDINE 20 MG TAB PO SCH ×2 (09:22→21:01)
[2023-07-12] MEDS: THIAMINE HCL 100 MG TAB PO SCH ×2 (09:22→20:52)
[2023-07-12] MEDS: SULFAMETHOXAZOLE/TRIMETHOPRIM DS 800/160MG TAB PO SCH ×2 (09:59→20:52)
[2023-07-12] MEDS: INSULIN ASPART PER UNIT CHARGE SC SCH ×4 (10:11→21:22)
[2023-07-12] MEDS: PHENAZOPYRIDINE HCL 200 MG TAB PO SCH ×2 (13:11→20:52)
[2023-07-12] MEDS: RIVAROXABAN 20 MG TAB PO SCH (17:13)
[2023-07-12] MEDS: clonazePAM 1 MG TAB PO PRN (20:51)
[2023-07-12] MEDS: rOPINIRole HCL 0.25 MG TABLET PO SCH (20:53)
[2023-07-12] MEDS: QUEtiapine FUMARATE 200 MG TAB PO SCH (20:53)
[2023-07-12] MEDS: DIVALPROEX EXTENDED RELEASE 500 MG TAB PO SCH (20:55)
[2023-07-12] MEDS: ACETAMINOPHEN 325 MG TAB PO PRN (23:59)
[2023-07-13 06:19] LABS: Basophils # (auto) 0.06 K/uL (0.00-0.20); Basophils % (auto) 0.9 %; Eosinophils # (auto) 0.33 K/uL (0.00-0.50); Hematocrit (blood only) 37.6 % (37.0-47.0); Hemoglobin 12.8 g/dl (12.0-16.0); Immature Granulocytes # (auto) 0.06 K/uL (0.01-0.20); Immature Granulocytes % (auto) 0.9 %; Lymphocytes # (auto) 3.25 K/uL (1.20-3.40); Lymphocytes % (auto) 48.9 %; Mean Corpuscular Hemoglobin 31.7 pg (25.0-34.0); Mean Corpuscular Volume 93.1 fL (80.0-100.0); Mean Platelet Volume 9.8 fL (9.4-12.4); Monocytes # (auto) 0.49 K/uL (0.11-0.59); Monocytes % (auto) 7.4 %; Neutrophils # (auto) 2.45 K/uL (1.40-6.50); Neutrophils % (auto) 36.9 %; Platelet Count 127 K/uL (130-400); RDW Coefficient of Variation 11.6 % (11.5-14.5); RDW Standard Deviation 39.3 fL (36.4-46.3); Red Blood Count 4.04 M/uL (4.20-5.40); White Blood Count 6.64 K/ul (4.8-10.8)
[2023-07-13 06:35] LABS: Calcium 9.2 mg/dl (8.6-10.3)
[2023-07-13 06:40] LABS: BUN Creatinine Ratio 17.9 (10-20); Creatinine Clr Calc Pharmacy 79.8 ml/min; Est GFR (African American) 92.5 ml/min; Est GFR (Non-African American) 79.8 ml/min
[2023-07-13] MEDS: INSULIN ASPART PER UNIT CHARGE SC SCH ×4 (08:59→20:47)
[2023-07-13] MEDS: NICOTINE 21 MG/24 HR TDSY TD SCH (09:00)
[2023-07-13] MEDS: LORATADINE 10 MG TAB PO SCH (09:01)
[2023-07-13] MEDS: SACCHAROMYCES BOULARDII 250 MG CAP PO SCH (09:01)
[2023-07-13] MEDS: PANTOprazole 40 MG TAB PO SCH (09:01)
[2023-07-13] MEDS: BENZTROPINE MESYLATE 0.5 MG TAB PO SCH ×2 (09:01→20:49)
[2023-07-13] MEDS: CYANOCOBALAMIN (B-12) 500 MCG TABLET PO SCH ×2 (09:01→20:50)
[2023-07-13] MEDS: SULFAMETHOXAZOLE/TRIMETHOPRIM DS 800/160MG TAB PO SCH (09:02)
[2023-07-13] MEDS: ESCITALOPRAM OXALATE 20 MG TAB PO SCH (09:02)
[2023-07-13] MEDS: GABAPENTIN 100 MG CAP PO SCH ×3 (09:02→20:48)
[2023-07-13] MEDS: busPIRone 15 MG TAB PO SCH ×3 (09:02→20:49)
[2023-07-13] MEDS: THIAMINE HCL 100 MG TAB PO SCH ×2 (09:02→20:48)
[2023-07-13] MEDS: PHENAZOPYRIDINE HCL 200 MG TAB PO SCH ×3 (09:03→20:49)
[2023-07-13] MEDS: PANCREAZE (LIPASE 10,500U) CAP PO SCH ×3 (09:03→17:23)
[2023-07-13] MEDS: FAMOTIDINE 20 MG TAB PO SCH ×2 (09:19→20:48)
[2023-07-13] MEDS: ACETAMINOPHEN 325 MG TAB PO PRN ×2 (09:19→20:52)
[2023-07-13] MEDS: CHOLESTYRAMINE LIGHT 4 GM PKT PO SCH ×2 (11:14→20:49)
--- NOTE | 2023-07-13 11:58 | Hospitalist Progress Note ---
Date of Service July 13, 2023 Assessment & Plan (1) Complicated UTI (urinary tract infection): Plan: Complicated UTI Abd pelvis CT unremarkable UA suggestive of infection, urine Cx growing gram negative bacilli Rocephin changed to PO Bactrim; however K uptrending to 5.0 will change to cefdinir 300mg bid Pyridium added for comfort. Diarrhea Ordered cholestyramine Cont to monitor Hx of PE On xarelto, restarted as H/H stable and no intracranial bleed on head CT DMII chronic, stable, a1c 8/ 6.5 Holding home oral meds Basal bolus insulin, ISS BG goal 110-140, carb count coverage schizophrenia/anxiety/mood disorder chronic, stable. Cont benztroine, buspirone, clonazepam, depakote, lexapro, gabapentin, seroquel 400mg QHS all per home regimen. Ambulatory dysfunction/Morbid Obesity PT/OT/lifestyle mods recommended Tobacco Use Nicotine patch DVT prophylaxis: Xarelto Full code Dispo: PT/OT recommends home with HH, discussed with CM who will coordinate with patient, medically stable for discharge Plan I have seen and examined the patient and have discussed the case with the provider above. I agree with the assessment and plan as stated. Mrs. Gil appears brighter and clinically well today. She is ambulating at her baseline. Abdomen is NTND and soft. She reports the pyridium has helped her dysuria. She is heading home with home health. Agree with management changes noted above. DO Evan Admission and Anticipated Discharge Date Admission Date: July 10, 2023 Subjective Pt was seen and examined in room 314. F/U UTI. SHe is requesting a potato. She denies f/c/s, chest pain, sob, n/v/d. She otherwise feels good. Discussed her PCN allergy and that it caused her vomiting, but she denies rash or anaphylactic rxn. She continues to have dysuria and diarrhea. Review of Systems Review of Systems: All systems reviewed & are unremarkable except as noted in HPI & below Physical Exam Physical Exam: Gen: WD/WN, F, sitting up in bed, obese, NAD, A&O x3 HEENT: Normocephalic, atraumatic, conjunctivae moist, sclerae anicteric, mucous membranes moist. Lung: Clear to Auscultation bilaterally, no wheezes/rales/rhonchi Heart: Regular rate, regular rhythm, no murmurs, rubs, or gallops Abdomen: Soft, NT, ND +BS x 4 Extremities: No edema Skin: Warm, no rash, negative turgor. Results & Data Results & Data Vital Signs (Past 12 Hours) Vital Signs Temp Pulse Resp BP Pulse Ox O2 Del Method 07/13/23 08:00 Room Air 07/13/23 08:57 102/69 07/13/23 07:53 91/62 L 95 Room Air 07/13/23 07:01 36.5 C 66 16 95/66 L 92 Room Air Laboratory Results Short CBC 07/13/23 Range/Units 05:50 WBC 6.64 (4.8-10.8) K/ul Hgb 12.8 (12.0-16.0) g/dl Hct 37.6 (37.0-47.0) % Plt Count 127 L (130-400) K/uL BMP 07/13/23 05:50 Sodium 133 L Potassium 5.0 Chloride 104 Carbon Dioxide 24 BUN 14 Creatinine 0.78 Glucose 133 H Calcium 9.2 Medications Administered Current Inpatient Medications Acetaminophen (Acetaminophen 325 Mg Tab) 650 mg PO Q6H PRN PRN Reason: Fever/Pain Stop: 08/10/23 00:00 Last Admin: 07/13/23 09:19 Dose: 650 mg Lipase/Protease/Amylase (Pancreaze (Lipase 10,500u) Cap) 1 cap PO TIDM [facility] Stop: 08/10/23 07:59 Last Admin: 07/13/23 09:03 Dose: 1 cap Benztropine Mesylate (Benztropine Mesylate 0.5 Mg Tab) 0.5 mg PO BID [facility] Stop: 08/10/23 02:33 Last Admin: 07/13/23 09:01 Dose: 0.5 mg Buspirone HCl (Buspirone 15 Mg Tab) 15 mg PO TID [facility] Stop: 08/10/23 02:33 Last Admin: 07/13/23 09:02 Dose: 15 mg Cefdinir (Cefdinir 300 Mg Cap) 300 mg PO BID [facility]; Protocol Stop: 07/17/23 20:59 Cholestyramine Resin (Cholestyramine Light 4 Gm Pkt) 4 gm PO BID@1000,2200 [facility] Stop: 08/10/23 21:59 Last Admin: 07/13/23 11:14 Dose: 4 gm Clonazepam (Clonazepam 1 Mg Tab) 1 mg PO TID PRN PRN Reason: Anxiety Stop: 08/10/23 02:33 Last Admin: 07/12/23 20:51 Dose: 1 mg Cyanocobalamin (Cyanocobalamin (B-12) 500 Mcg Tablet) 1,000 mcg PO BID MARY Stop: 08/10/23 08:59 Last Admin: 07/13/23 09:01 Dose: 1,000 mcg Dextrose (Dextrose 50% 50 Ml Syringe) 25 - 50 ml IV UD PRN; Protocol PRN Reason: Hypoglycemia Protocol Stop: 08/10/23 02:33 Divalproex Sodium (Divalproex Extended Release 500 Mg Tab) 1,000 mg PO HS [facility] Stop: 08/10/23 02:33 Last Admin: 07/12/23 20:55 Dose: 1,000 mg Escitalopram Oxalate (Escitalopram Oxalate 20 Mg Tab) 20 mg PO QAM [facility] Stop: 08/10/23 08:59 Last Admin: 07/13/23 09:02 Dose: 20 mg Famotidine (Famotidine 20 Mg Tab) 20 mg PO BID MARY Stop: 08/10/23 08:59 Last Admin: 07/13/23 09:19 Dose: 20 mg Ferrous Sulfate (Ferrous Sulfate 325 Mg Tab) 325 mg PO Q2D MARY Stop: 08/11/23 08:59 Last Admin: 07/12/23 09:22 Dose: 325 mg Gabapentin (Gabapentin 100 Mg Cap) 200 mg PO HS [facility] Stop: 08/10/23 20:59 Last Admin: 07/12/23 20:53 Dose: 200 mg Gabapentin (Gabapentin 100 Mg Cap) 100 mg PO BID17 MARY Stop: 08/10/23 08:59 Last Admin: 07/13/23 09:02 Dose: 100 mg Glucagon (Glucagon For Inj 1 Mg Vial) 1 mg SQ UD PRN; Protocol PRN Reason: Hypoglycemia Protocol Stop: 08/10/23 02:33 Glucose (Glucose 10 Tab/Tube) 4 - 8 tab PO UD PRN; Protocol PRN Reason: Hypoglycemia Treatment Stop: 08/10/23 02:33 Glucose (Glucose 40% Gel 15 Gm Tube) 15 - 30 gm PO UD PRN; Protocol PRN Reason: Hypoglycemia Protocol Stop: 09/26/23 02:33 Promethazine HCl 12.5 mg/ (Sodium Chloride) 50.5 mls @ 202 mls/hr IV Q6H PRN PRN Reason: Nausea And Vomiting Stop: 08/09/23 23:58 Insulin Aspart (Insulin Aspart Per Unit Charge) 0 units SC ACHS [facility] Stop: 08/10/23 02:33 Last Admin: 07/13/23 08:59 Dose: 6 units Loratadine (Loratadine 10 Mg Tab) 10 mg PO DAILY [facility] Stop: 08/10/23 08:59 Last Admin: 07/13/23 09:01 Dose: 10 mg Miscellaneous (Remove Nicoderm Patch) 1 each N/A DAILY@0859 [facility] Stop: 08/10/23 08:58 Last Admin: 07/13/23 09:00 Dose: 1 each Miscellaneous (Carbohydrates For Hypoglycemia ) 15 - 30 gm PO UD PRN PRN Reason: Hypoglycemia Protocol Stop: 08/10/23 02:33 Nicotine (Nicotine 21 Mg/24 Hr Tdsy) 21 mg TD QAM [facility] Stop: 08/10/23 08:59 Last Admin: 07/13/23 09:00 Dose: 21 mg Pantoprazole Sodium (Pantoprazole 40 Mg Tab) 40 mg PO QAM [facility] Stop: 08/10/23 08:59 Last Admin: 07/13/23 09:01 Dose: 40 mg Phenazopyridine HCl (Phenazopyridine Hcl 200 Mg Tab) 200 mg PO TID [facility] Stop: 07/15/23 14:01 Last Admin: 07/13/23 09:03 Dose: 200 mg Quetiapine Fumarate (Quetiapine Fumarate 200 Mg Tab) 400 mg PO [facility] Stop: 08/10/23 20:59 Last Admin: 07/12/23 20:53 Dose: 400 mg Rivaroxaban (Rivaroxaban 20 Mg Tab) 20 mg PO QDD [facility] Stop: 08/10/23 14:59 Last Admin: 07/12/23 17:13 Dose: 20 mg Ropinirole HCl (Ropinirole Hcl 0.25 Mg Tablet) 0.5 mg PO HS [facility] Stop: 08/10/23 20:59 Last Admin: 07/12/23 20:53 Dose: 0.5 mg Saccharomyces Boulardii (Saccharomyces Boulardii 250 Mg Cap) 250 mg PO DAILY [facility] Stop: 09/26/23 08:59 Last Admin: 07/13/23 09:01 Dose: 250 mg Thiamine HCl (Thiamine Hcl 100 Mg Tab) 100 mg PO BID [facility] Stop: 08/10/23 08:59 Last Admin: 07/13/23 09:02 Dose: 100 mg Trimethoprim/Sulfamethoxazole (Sulfamethoxazole/Trimethoprim Ds 800/160mg Tab) 1 tab PO Q12H [facility] Stop: 07/17/23 09:29 Last Admin: 07/13/23 09:02 Dose: 1 tab
[2023-07-13] MEDS: RIVAROXABAN 20 MG TAB PO SCH (17:23)
[2023-07-13] MEDS: QUEtiapine FUMARATE 200 MG TAB PO SCH (20:48)
[2023-07-13] MEDS: DIVALPROEX EXTENDED RELEASE 500 MG TAB PO SCH (20:49)
[2023-07-13] MEDS: CEFDINIR 300 MG CAP PO SCH (20:50)
[2023-07-13] MEDS: rOPINIRole HCL 0.25 MG TABLET PO SCH (20:50)
[2023-07-13] MEDS: clonazePAM 1 MG TAB PO PRN (20:52)
[2023-07-14 06:39] LABS: Hematocrit (blood only) 37.7 % (37.0-47.0); Mean Corpuscular Hemoglobin 31.3 pg (25.0-34.0); Mean Corpuscular Hgb Conc 34.5 g/dL (32.0-36.0); Mean Corpuscular Volume 90.8 fL (80.0-100.0); Mean Platelet Volume 10.1 fL (9.4-12.4); Platelet Count 151 K/uL (130-400); RDW Coefficient of Variation 11.6 % (11.5-14.5); RDW Standard Deviation 38.5 fL (36.4-46.3); Red Blood Count 4.15 M/uL (4.20-5.40)
[2023-07-14 06:46] LABS: BUN Creatinine Ratio 16.7 (10-20); Calcium 9.4 mg/dl (8.6-10.3); Creatinine Clr Calc Pharmacy 69.2 ml/min; Est GFR (African American) 77.8 ml/min; Est GFR (Non-African American) 67.1 ml/min; Potassium 4.6 mmol/L (3.5-5.1)
[2023-07-14 07:39] LABS: Basophils # (auto) 0.07 K/uL (0.00-0.20); Eosinophils # (auto) 0.41 K/uL (0.00-0.50); Eosinophils % (auto) 5.9 %; Immature Granulocytes % (auto) 1.4 %; Lymphocytes # (auto) 3.56 K/uL (1.20-3.40); Lymphocytes % (auto) 50.9 %; Monocytes # (auto) 0.52 K/uL (0.11-0.59); Monocytes % (auto) 7.4 %; Neutrophils # (auto) 2.34 K/uL (1.40-6.50); Neutrophils % (auto) 33.4 %
[2023-07-14] MEDS: NICOTINE 21 MG/24 HR TDSY TD SCH (08:32)
[2023-07-14] MEDS: CYANOCOBALAMIN (B-12) 500 MCG TABLET PO SCH (08:33)
[2023-07-14] MEDS: ESCITALOPRAM OXALATE 20 MG TAB PO SCH (08:33)
[2023-07-14] MEDS: PANCREAZE (LIPASE 10,500U) CAP PO SCH ×3 (08:33→17:04)
[2023-07-14] MEDS: BENZTROPINE MESYLATE 0.5 MG TAB PO SCH (08:33)
[2023-07-14] MEDS: FERROUS SULFATE 325 MG TAB PO SCH (08:33)
[2023-07-14] MEDS: CEFDINIR 300 MG CAP PO SCH (08:33)
[2023-07-14] MEDS: busPIRone 15 MG TAB PO SCH ×2 (08:33→14:15)
[2023-07-14] MEDS: PHENAZOPYRIDINE HCL 200 MG TAB PO SCH ×2 (08:34→14:15)
[2023-07-14] MEDS: SACCHAROMYCES BOULARDII 250 MG CAP PO SCH (08:34)
[2023-07-14] MEDS: GABAPENTIN 100 MG CAP PO SCH ×2 (08:34→17:04)
[2023-07-14] MEDS: PANTOprazole 40 MG TAB PO SCH (08:34)
[2023-07-14] MEDS: LORATADINE 10 MG TAB PO SCH (08:34)
[2023-07-14] MEDS: THIAMINE HCL 100 MG TAB PO SCH (08:34)
[2023-07-14] MEDS: FAMOTIDINE 20 MG TAB PO SCH (08:44)
[2023-07-14] MEDS: INSULIN ASPART PER UNIT CHARGE SC SCH ×3 (08:44→17:01)
--- NOTE | 2023-07-14 12:11 | Discharge Summary ---
Discharge Summary Date of Service July 14, 2023 Notes For Next Care Provider Patient admitted secondary to fall and hypokalemia which was felt to be secondary to dehydration. She was also noted to have a urinary tract infection. Urine culture grew E. coli. She also recently had urinary tract infection at the end of May/early June which was also E. coli. She may need further work-up as outpatient in regards to urinary tract infection recurrence. Her potassium did stabilize with a low potassium diet. On day of discharge her sodium was noted to be low and corrected at 133. Recommend repeat BMP at follow-up appointment to monitor sodium and potassium. Medication Changes From Visit Cefdinir 300 mg twice daily for additional 11 days, complete in its entirety Florastor 250 mg once daily for probiotic while taking antibiotic Continue all other medications as prescribed. Admission HPI Per Admitting Provider History obtained from patient and records. Medical history significant for history of PE on Xarelto, DM 2 on oral medications, GERD, IBS, chronic pain, schizophrenia/anxiety/mood disorder, ongoing tobacco abuse. Last confinement June 2023 for metabolic encephalopathy secondary to hypercapnia and E. coli UTI. Patient fell backwards as she was reaching for some pastries at home today. Minimal posterior head discomfort. No LOC, no chest pain, no SOB. Patient's daughter could not get her up from the floor. Patient also complaining of dysuria symptoms with achy abdominal pain. No hematuria, no fever, no chills. IV ceftriaxone administered at the ER. Medical History as above Surgical History : section, cholecystectomy, ROLANDO Family History : Bowel cancer, DM Personal/Social history : 1 pack daily, EtOH intake, disabled, lives with daughter Admission Exam Per Admitting Provider GENERAL: Comfortable, pleasant, morbidly obese, looks older than stated age, no respiratory distress SKIN: Normal color, warm HEENT: Mill[place] palpebral conjunctivae, no ptosis, chronic lip asymmetry, dry buccal mucosa, edentulous NECK : Supple, short neck, no tenderness CHEST : Decreased breath sounds, no tenderness HEART : RRR, no obvious murmurs ABDOMEN: Some distention, minimal hypogastric tenderness EXTREMITIES : No LE swelling/tenderness, no other conspicuous deformities noted NEUROLOGIC : Coherent, no facial asymmetry, gait and stance not assessed Principal Dx & Hospital Course #1 = Principal Diagnosis (1) Complicated UTI (urinary tract infection): This is a 67-year-old female with significant past medical history of T2DM, IBS, GERD, schizoaffective disorder, panic disorder, tobacco abuse disorder and history of PE on Xarelto presented to ED secondary to fall. She did not sustain injury from fall. She was noted to have hypokalemia and likely urinary tract infection on admission. Of significance patient was recently hospitalized the end of May due to acute metabolic encephalopathy in setting of urinary tract infection. Her urine culture again grew out E. coli. She was treated with course of antibiotics. On admission patient did complain of abdominal pain and dysuria. Her potassium did normalize. Initially patient placed on IV ceftriaxone and transition to oral Bactrim. Due to hyperkalemia she was then transition to oral cefdinir. Urine culture again grew E. coli. She was seen an d evaluated by PT and OT and deemed safe to return home with daughter. On day of discharge patient is without acute complaints and is requesting to return home. She denies any further dysuria or abdominal pain. She currently denies any diarrhea. She currently denies any diarrhea. She is tolerating antibiotic. Her vital signs are stable and day of discharge lab work was reviewed. Her CBC was generally unremarkable. Her chemistry panel revealed slightly low sodium corrected to be 133 but otherwise unremarkable. It is recommended patient have a repeat BMP at hospital follow-up. She will be discharged to complete a 14-day course of antibiotic therapy for complicated UTI in setting of recurrence. Plan I certify that this patient is under my care and that I, or a physicians commercial escrow assistant working with me, had a face to-face encounter that meets the home health [id number] encounter requirements with this patient. The encounter with the patient was in whole, or in part, for the following medical condition, which is the primary reason for home health care (list medical condition): I certify that, based on my findings, the following services are medically necessary home health services: My clinical findings support the need for the above services because: Further, I certify that my clinical findings support that this patient is homebound (i.e. absences from home require considerable and taxing effort and are for medical reasons or zoroastrian services or infrequently or of short duration when for other reasons) because: Certification for Home Health Services: Based on the above findings, I certify that this patient is confined to the home and needs intermittent fci care, physical therapy and/or speech therapy or continues to need occupational therapy. The patient is under my care, and I have initiated the establishment of the plan of care. This patient will be followed by a physician who will periodically review the plan of care. Discharge Exam Gen: WD/WN, F, sitting up in bed, obese, NAD, A&O x3 HEENT: Normocephalic, atraumatic, conjunctivae moist, sclerae anicteric, mucous membranes moist. Lung: Clear to Auscultation bilaterally, no wheezes/rales/rhonchi Heart: Regular rate, regular rhythm, no murmurs, rubs, or gallops Abdomen: Soft, NT, ND +BS x 4 Extremities: No edema Skin: Warm, no rash, negative turgor. Updated Medication List Medication Instructions Recorded Confirmed Type buspirone 15 mg tablet 15 mg PO TID 10/25/20 07/10/23 History zszfye-[id number] 1 cap PO TID 10/25/20 07/10/23 History 12,000-38,000-60,000 unit capsule,delayed rel (Creon) rivaroxaban 20 mg tablet (Xarelto) 20 mg PO DAILY 10/25/20 07/10/23 History escitalopram oxalate 20 mg tablet 20 mg PO QAM 03/18/21 07/10/23 History (Lexapro) ropinirole 0.5 mg tablet 0.5 mg PO HS 03/18/21 07/10/23 History ferrous sulfate 325 mg (65 mg 325 mg PO Q OTHER DAY 06/03/21 07/10/23 History iron) tablet (Iron (ferrous sulfate)) cyanocobalamin (vitamin B-12) 1,000 mcg PO BID 08/05/21 07/10/23 History 1,000 mcg tablet (Vitamin B-12) thiamine HCl (vitamin B1) 100 mg 100 mg PO BID 10/11/21 07/10/23 History tablet (Vitamin B-1) benztropine 0.5 mg tablet 0.5 mg PO BID 07/25/22 07/10/23 History quetiapine 400 mg tablet 400 mg PO HS 07/25/22 07/10/23 History clonazepam 1 mg tablet 1 mg PO TID PRN Anxiety 01/13/23 07/10/23 History gabapentin 100 mg capsule 100 mg PO BID17 01/13/23 07/10/23 History loratadine 10 mg tablet (Claritin) 10 mg PO DAILY 01/13/23 07/10/23 History famotidine 20 mg tablet 20 mg PO BID 30 days #60 tabs 02/14/23 07/10/23 Rx gabapentin 100 mg capsule 200 mg PO HS 03/14/23 07/10/23 History pantoprazole 40 mg tablet,delayed 40 mg PO QAM 03/14/23 07/10/23 History release (Protonix) promethazine 12.5 mg tablet 12.5 mg PO TID PRN nausea #14 tabs 03/17/23 07/10/23 Rx cholestyramine (with sugar) 4 gram See Rx Instructions .Route .COMPLEX 06/14/23 07/10/23 History oral powder metformin 500 mg tablet,extended 500 mg PO BID 06/14/23 07/10/23 History release 24 hr Saccharomyces boulardii 250 mg 250 mg PO DAILY #10 caps 06/19/23 07/10/23 Rx capsule (Florastor) divalproex 500 mg tablet,extended 1,000 mg PO HS #1 tab 06/19/23 07/10/23 Rx release 24 hr (Depakote ER) Saccharomyces boulardii 250 mg 250 mg PO DAILY #11 caps 07/14/23 Rx capsule (Florastor) cefdinir 300 mg capsule 300 mg PO BID #22 caps 07/14/23 Rx Hospital Stay Data Consultations 07/10/23 22:25 ED Decision to Admit Stat Diagnostic Imagining Performed Cervical Spine CT 07/10/23 18:34 CT OF THE CERVICAL SPINE WITHOUT CONTRAST CLINICAL HISTORY: fall COMPARISON STUDY: Cervical spine CT February 25, 2022. TECHNIQUE: Helical axial images of the cervical spine were obtained without IV contrast. Sagittal and coronal reconstructions were viewed. Automated exposure control was utilized for the study. A dose lowering technique was utilized adhering to the principles of ALARA. FINDINGS: Alignment of the cervical spine is anatomic. Vertebral body heights are maintained. No acute cervical spine fracture or subluxation is present. There is no prevertebral edema. Facet joints are intact. Moderate multilevel facet arthrosis and degenerative disc disease is present. IMPRESSION: No acute cervical spine fracture or subluxation. ACT 112: Negative or not required by law. Electronically signed by: Bryn East M.D. 07/10/2023 7:[address] 07/10/23 18:34 CT OF THE HEAD WITHOUT CONTRAST CLINICAL HISTORY: fall COMPARISON STUDY: Head CT T June 14, 2023. TECHNIQUE: Helical axial images of the head were obtained without IV contrast. Automated exposure control was utilized for the study. A dose lowering technique was utilized adhering to the principles of ALARA. FINDINGS: No acute intracranial hemorrhage, midline shift or mass effect is present. The ventricular system is unremarkable. The basal cisterns are patent. No extra-axial collections are present. There are no findings to suggest acute dural sinus thrombosis or acute territorial infarct. No significant calvarial abnormalities are present. Visualized portions of the sinuses and mastoid air cells are clear. IMPRESSION: 1. No acute intracranial findings. 2. No acute calvarial fracture. ACT 112: Negative or not required by law. Electronically signed by: Bryn East M.D. 07/10/2023 7:22 PM Abdomen/Pelvis CT 07/10/23 23:50 Exam(s): CT ABDOMEN + PELVIS With Contrast IV Amt: 92 ml EXAM: CT Abdomen and Pelvis With Intravenous Contrast CLINICAL HISTORY: Reason for exam: abd pain. TECHNIQUE: Axial computed tomography images of the abdomen and pelvis with intravenous contrast. CTDI is 28.14 mGy and DLP is 1394.82 mGy-cm. Automated exposure control was utilized for the study. A dose lowering technique was utilized adhering to the principles of ALARA. CONTRAST: Patient received 92 ml of IV contrast COMPARISON: 06/14/2023 FINDINGS: Lung bases: Unremarkable. No mass. No consolidation. ABDOMEN: Liver: Unremarkable. No mass. Gallbladder and bile ducts: Gallbladder has been removed. No ductal dilation. Pancreas: Unremarkable. No mass. No ductal dilation. Spleen: Unremarkable. No splenomegaly. Adrenals: Unremarkable. No mass. Kidneys and ureters: Unremarkable. No solid mass. No hydronephrosis. Stomach and bowel: Unremarkable. No obstruction. No mucosal thickening. PELVIS: Appendix: No findings to suggest acute appendicitis. Bladder: Unremarkable. No mass. Reproductive: Unremarkable as visualized. ABDOMEN and PELVIS: Intraperitoneal space: Unremarkable. No free air. No significant fluid collection. Bones/joints: No acute fracture. No dislocation. Soft tissues: Unremarkable. Vasculature: Unremarkable. No abdominal aortic aneurysm. Lymph nodes: Unremarkable. No enlarged lymph nodes. IMPRESSION: No acute findings in the abdomen or pelvis. Electronically signed by: Alessandro Davenport M.D. 07/11/23 02:37 AM Pending Results Patient Have Any Pending Studies at Discharge: No Discharge Instructions Given to Patient (Per Discharging Provider) MEDICATION CHANGES: Cefdinir 300 mg twice daily for additional 11 days, complete in its entirety Florastor 250 mg once daily for probiotic while taking antibiotic Continue all other medications as prescribed. SUMMARY OF TEST RESULTS: You were admitted to hospital secondary to fall while at home. Did not sustain any injury from your fall. Lab work noted that you had mildly elevated potassium which was likely secondary to dehydration. Urine studies also revealed you had a recurrent urinary tract infection. Your urine culture grew E. coli. You are being treated with appropriate antibiotics. You are seen and evaluated by PT and OT and cleared to be discharged home. PENDING TEST RESULTS: None RECOMMENDATIONS FOR FOLLOW-UP: Please follow-up with primary care provider as scheduled. Recommend avoiding high potassium foods and trying to follow a more low potassium diet. Recommend staying well-hydrated. Take all medications as prescribed. Recommend your primary care provider repeat your sodium and potassium at your follow-up visit. OTHER INSTRUCTIONS: Seek medical attention if you have: * temperature above 101 * chest pain or trouble breathing * abdominal pain, nausea, vomiting * diarrhea, dark stools or bloody stools * any unanswered questions or concerns Call 911 if symptoms are severe. Please take good care of yourself. It has been a pleasure taking care of you. Please take care of yourself. If you have any questions regarding your recent hospitalization please contact [facility] and request Monique Wolffist @ [phone]. Total Time Total Time Spent Total Time Spent (In Minutes): 45 minutes Supervising Physician Co-Signing Physician Notes I have seen and examined the patient and have discussed the case with the provider above. I agree with the assessment and plan as stated. Evan,
[2023-07-14] MEDS: CHOLESTYRAMINE LIGHT 4 GM PKT PO SCH (12:49)
[2023-07-14] MEDS: ACETAMINOPHEN 325 MG TAB PO PRN (14:17)
[2023-07-14] MEDS: clonazePAM 1 MG TAB PO PRN (15:38)
[2023-07-14] MEDS: RIVAROXABAN 20 MG TAB PO SCH (17:04)
--- NOTE | 2023-07-15 12:38 | Coding Query ---
CODING QUERY To promote full compliance with coding requirements relating to patient care, provider participation is requested in all cases of invoice coder uncertainty. Please assist us with the question(s) below: Coding Question(s): The Discharge Summary documents, "You were admitted to hospital secondary to fall while at home. Did not sustain any injury from your fall. Lab work noted that you had mildly elevated potassium which was likely secondary to dehydration. Urine studies also revealed you had a recurrent urinary tract infection. Your urine culture grew E. coli", and also documents, "Patient admitted secondary to fall and hypokalemia which was felt to be secondary to dehydration. She was also noted to have a urinary tract infection. Urine culture grew E. coli. She also recently had urinary tract infection at the end of May/early June which was also E. coli. She may need further work-up as outpatient in regards to urinary tract infection recurrence. Her potassium did stabilize with a low potassium diet". Please specify below, in your clinical opinion, the diagnosis most responsible for occasioning the Inpatient admission: ( x ) Fall - (patient has recently fallen and the reason for the fall is being investigated) ( ) Hyperkalemia secondary to dehydration ( ) Urinary Tract Infection ( ) Other: Please Specify Physician's Response(s): Thank you Caitie Garcia Principal Diagnosis: "that condition established after study, to be chiefly responsible for occasioning the admission of the patient to the hospital for care." Co-Existing Principal Diagnosis: "when two or more diagnoses equally meet the criteria for principal diagnosis as determined by the circumstances of admission, diagnostic work up, and/or therapy provided, and the Alphabetic Index, Tabular List, or another coding guideline does not provide sequencing direction, any one of the diagnoses may be sequenced first." "When the physician has documented what appears to be a current diagnosis in the body of the record, but has not included the diagnosis in the final diagnostic statement, the physician should be asked whether the diagnosis should be added." (Source [facility] 2 QTR90. p3-4) KALYN
== END 2023-07-14 20:00 | disposition home health service (06) | DRG 92 ==
LOC: ED 18:27 → SUATTDRO 23:55 → EDINP 23:55 → 3E 07-11 02:35

== ENCOUNTER 2023-10-03 17:06 | Inpatient (IN) ==
--- NOTE | 2023-10-03 17:15 | ED Triage Note ---
Date of Service October 03, 2023 History of Present Illness This patient was briefly evaluated while in triage. An abbreviated physical exam was performed. This patient is a 68-year-old Female who presents to the ED for evaluation of nausea, vomiting. Given zofran prehospital. Notes cough as well. EMS also provide history noting concern for patient's living situation. Physical Exam GENERAL: 68 year old female. In no acute distress. SKIN: No lesions or rashes. HEART: Regular rate and rhythm. LUNGS: Clear to auscultation. ABDOMEN: Bowel sounds normoactive. No guarding or rigidity. NEURO: Alert and oriented. No deficits. MUSCULOSKELETAL: No deformities to inspection of the extremities. PSYCH: Patient is pleasant and answers all questions appropriately. Initial orders for labs and / or imaging were placed and patient was placed in the waiting area until a bed is available. Please see further documentation for the full ED course.
[2023-10-03] MEDS ORDERED: SODIUM CHLORIDE 0.9% 1,000 ML IV ONE (17:57)
--- NOTE | 2023-10-03 18:01 | Emergency Department Note ---
Impression & Plan Weakness, Vomiting, Elevated lactic acid level, Rhinovirus ED Provider Note NAME: SID JAVIER AGE: 68 SEX: F : 1955 ARRIVES VIA: Ambulance INFORMANT: Patient ED PROVIDER(S): Phong Ryder DO CHIEF COMPLAINT: weakness HPI: Patient is a 68-year-old female who presents to the ER with a past medical history of schizoaffective disorder, diabetes, GERD, pulmonary edema, PE on Xarelto, DVT and complicated UTIs for weakness, confusion and a cough. Symptoms started with a cough about a week ago. She has been very weak today and has been really unable to get around. She admits to nausea and vomiting which is occurred today. No diarrhea. She has some belly pain but believes it is from the coughing. No dysuria, urgency, or frequency. No other exacerbating or remitting factors. ADDITIONAL HISTORY OBTAINED: Per HPI Chronic Medical/Social Conditions Affecting Care: Per HPI PAST MEDICAL HISTORY:See Below PAST SURGICAL HISTORY:See Below FAMILY HISTORY:See Below SOCIAL HISTORY:See Below HOME MEDICATIONS:See Below ALLERGIES:See Below VITALS:See Below PHYSICAL EXAMINATION: GENERAL: Sitting up in bed, alert, well appearing, well nourished, no distress, non-toxic EYE EXAM: normal conjunctiva. PERRL and EOM's grossly intact. OROPHARYNX: no exudate, no erythema, lips, buccal mucosa, and tongue normal and mucous membranes are moist NECK: supple, no nuchal rigidity, no adenopathy, non-tender LUNGS: Clear to auscultation. Normal chest wall mechanics HEART: no murmurs, S1 normal and S2 normal ABDOMEN: abdomen soft, non-tender, normo-active bowel sounds, no masses, no rebound or guarding. BACK: Back is symmetrical on inspection and there is no deformity, no midline tenderness, no CVA tenderness. UPPER EXTREMITIES: upper extremities are grossly normal. LOWER EXTREMITIES: No pitting edema. NEURO EXAM: Oriented to person and place but not year or month, cranial nerves II-XII grossly intact, normal speech, no gross weakness of arms, no gross weakness of legs. No drift. Finger to nose intact. Gross sensation intact. MEDICAL DECISION MAKING: Patient is a 68-year-old female who presents ER for weakness unable to get up and move around. IV was established blood work was obtained. External records were reviewed. Labs show no significant leukocytosis or anemia. BMP was unremarkable. Lactic acid was significantly elevated at 2.8. LFTs bilirubin were unremarkable. Troponin was negative. Pro-Montrell normal. UA was clean. Valproic at 54. Viral panel was positive for rhinovirus. CT abdomen pelvis was negative. Chest x-ray was clean. Patient was given 1.5 L of IV fluids as well as IV Rocephin as I was initially concerned that she was septic as she was hypotensive upon arrival with systolic pressures in the 90s and heart rates elevated in the low 100s. Heart rate trended down and systolic pressures trended up. Lactic acid was trending down from 2.8-2.6. Discussed with the hospitalist for further evaluation management treatment. External Records Reviewed: [facility] with confusion Consults/Care Managements Discussions: Per [facility] Triage Nursing notes reviewed. Limited review of prior medical records performed Vital Signs: reviewed and remarkable for hypotension and tachy Differential diagnosis: Differential diagnosis includes etiologies such as sepsis, UTI, pneumonia, metabolic, electrolyte abnormalities, cardiac sources, intracerebral event, toxicologic, neurological, as well as others were entertained. ER treatment provided: See below Diagnostics interpreted by me include EKG and cardiac monitoring as listed below: -Cardiac Monitoring: An order was placed for continuous cardiac monitoring. The monitor shows a rate of 100 with sinus rhythm. -ECG: Sinus tachycardia rate of 107 Right axis Right bundle branch block QTc 515 -Laboratory studies:Interpreted by me as stated above in MDM and shown below. 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 Folate deficiency Generalized weakness GERD (gastroesophageal reflux disease) History of pulmonary embolism Hyperparathyroidism Hypothyroid Intractable nausea and vomiting Iron deficiency anemia Irritable bowel syndrome Pulmonary embolism Rectal bleeding Restless leg Schizoaffective disorder Smoking Surgical History History of section x2 History of cholecystectomy History of hysterectomy Family History Mother Diabetes Sister Diabetes Denies family history of Inflammatory bowel disease Social History Smoking Status: Current every day smoker Tobacco Type: Cigarettes Cigarettes Per Day: unknown; Second Hand Exposure: Yes; Do You Dip or Chew Tobacco: No; Hx Alcohol Use: No Hx Substance Use: No Preferred Language: Romansh Communication Ability: Effective Pain Management Nurse Practitioner Required: No Beliefs That Will Affect Care: None marital status: Current Living Situation: Family Current Living Situation Comment: Lives with daughter. How many Children do You have: 2 Feels Safe at Home: Yes Assistive Devices: Walker and Wheelchair Allergies Allergies Allergy/AdvReac Type Severity Reaction Status Date / Time bee venom protein (honey bee) Allergy Severe Anaphylaxis Unverified 10/03/23 20:14 egg AdvReac Severe Vomiting Verified 10/03/23 20:14 Penicillins AdvReac Severe VOMITING/IT Verified 10/03/23 20:14 DAVON Home Meds Home Medications Medication Instructions Recorded Confirmed buspirone 15 mg tablet 15 mg PO TID 10/25/20 10/03/23 ifpkrr-aerztagr-vcrpgal 2 cap PO TID 10/25/20 10/03/23 12,000-38,000-60,000 unit capsule,delayed rel (Creon) rivaroxaban 20 mg tablet (Xarelto) 20 mg PO QAM 10/25/20 10/03/23 escitalopram oxalate 20 mg tablet 20 mg PO QAM 03/18/21 10/03/23 (Lexapro) ropinirole 0.5 mg tablet 0.5 mg PO HS 03/18/21 10/03/23 benztropine 0.5 mg tablet 0.5 mg PO BID 07/25/22 10/03/23 quetiapine 400 mg tablet 400 mg PO HS 07/25/22 10/03/23 clonazepam 1 mg tablet 1 mg PO TID PRN Anxiety 01/13/23 10/03/23 gabapentin 100 mg capsule 100 mg PO BID17 01/13/23 10/03/23 loratadine 10 mg tablet (Claritin) 10 mg PO DAILY 01/13/23 10/03/23 gabapentin 100 mg capsule 200 mg PO HS 03/14/23 10/03/23 pantoprazole 40 mg tablet,delayed 40 mg PO QAM 03/14/23 10/03/23 release (Protonix) cholestyramine (with sugar) 4 gram See Rx Instructions .Route .COMPLEX 06/14/23 10/03/23 oral powder metformin 500 mg tablet,extended 500 mg PO BID 06/14/23 10/03/23 release 24 hr divalproex 500 mg tablet,extended 1,500 mg PO HS 09/12/23 10/03/23 release 24 hr meloxicam 15 mg tablet 15 mg PO UD 10/03/23 10/03/23 Results & Data (ED) Vital Signs Vital Signs - 24 hr 10/03/23 17:13 10/03/23 17:51 10/03/23 18:00 Temperature 36.7 C Temperature Source Oral Pulse Rate 112 H Pulse Rate [Apical] 106 H Pulse Rhythm Regular Pulse Rhythm [Apical] Regular Pulse Strength Normal Pulse Strength [Apical] Normal Respiratory Rate 20 18 Respiratory Effort / Characteristics Non-Labored Spontaneous Non-Labored Respiratory Depth Normal Normal Respiratory Pattern Regular Regular Blood Pressure 90/68 L Blood Pressure [Right Arm] 119/92 Blood Pressure Mean 75 Blood Pressure Mean [Right Arm] 101 Blood Pressure Position Sitting Pulse Oximetry 93 93 91 Oxygen Delivery Method Room Air Room Air Room Air Sepsis Recent Fever Within 48 Hours No Sepsis New/Unexplained Change in Mental Status No Sepsis Action Taken by Nursing Physician Notified 10/03/23 18:24 10/03/23 20:00 Temperature Temperature Source Pulse Rate 109 H Pulse Rate [Apical] 94 H Pulse Rhythm Pulse Rhythm [Apical] Pulse Strength Pulse Strength [Apical] Respiratory Rate 17 Respiratory Effort / Characteristics Respiratory Depth Respiratory Pattern Blood Pressure Blood Pressure [Right Arm] Blood Pressure Mean Blood Pressure Mean [Right Arm] Blood Pressure Position Pulse Oximetry 95 Oxygen Delivery Method Sepsis Recent Fever Within 48 Hours Sepsis New/Unexplained Change in Mental Status Sepsis Action Taken by Nursing Laboratory Data 10/03/23 17:40 10/03/23 17:40 Lab Results 10/03/23 10/03/23 10/03/23 Range/Units 17:40 18:16 18:31 WBC 10.05 (4.8-10.8) K/ul RBC 5.40 (4.20-5.40) M/uL Hgb 16.2 H (12.0-16.0) g/dl Hct 48.7 H (37.0-47.0) % MCV 90.2 (80.0-100.0) fL MCH 30.0 (25.0-34.0) pg MCHC 33.3 (32.0-36.0) g/dL RDW Std Deviation 42.9 (36.4-46.3) fL RDW Coeff of [place] 13.2 (11.5-14.5) % Plt Count 262 (130-400) K/uL MPV 9.3 L (9.4-12.4) fL Immature Gran % (Auto) 1.3 % Neut % (Auto) 62.9 % Lymph % (Auto) 25.0 % [place] % (Auto) 6.9 % Eos % (Auto) 3.4 % Baso % (Auto) 0.5 % Neut # (Auto) 6.33 (1.40-6.50) K/uL Lymph # (Auto) 2.51 (1.20-3.40) K/uL [place] # (Auto) 0.69 H (0.11-0.59) K/uL Eos # (Auto) 0.34 (0.00-0.50) K/uL Baso # (Auto) 0.05 (0.00-0.20) K/uL Immature Gran # (Auto) 0.13 (0.01-0.20) K/uL Sodium 139 (136-145) mmol/L Potassium 4.4 (3.5-5.1) mmol/L Chloride 102 (98-107) mmol/L Carbon Dioxide 27 (21-32) mmol/L Anion Gap 10 (3-11) BUN 8 (6-23) mg/dl Creatinine 0.69 (0.6-1.2) mg/dl Est Cr Clr Drug Dosing 89.0 ml/min Est GFR ( Amer) 105.1 ml/min Est GFR (Non-Af Amer) 90.7 ml/min BUN/Creatinine Ratio 11.6 (10-20) Glucose 122 H (70-99(Fasting)) mg/dl Lactate 2.8 H* (0.4-2.0) mmol/L Calcium 9.8 (8.6-10.3) mg/dl Magnesium 1.5 L (1.7-2.4) mg/dl Total Bilirubin 0.4 (0.2-1.0) mg/dl AST 24 (13-39) U/L ALT 14 (7-52) U/L Alkaline Phosphatase 94 (34-104) U/L Troponin I High Sens 3.6 (0-14) pg/ml Total Protein 7.7 (6.0-8.3) gm/dl Albumin 3.9 (3.4-5.0) gm/dl Globulin 3.8 (2.5-4.0) gm/dl Albumin/Globulin Ratio 1.0 (0.9-2) Lipase 19 (11-82) U/L Procalcitonin < 0.05 (0-0.5) ng/ml Urine Color Yellow Urine Appearance Cloudy A (Clear) Urine pH 6.0 (4.5-7.5) Ur Specific [place] 1.015 (1.000-1.030) Urine Protein Negative (Negative) Urine Glucose (UA) Negative (Negative) Urine Ketones Trace H (Negative) Urine Blood Negative (Negative) Urine Nitrite Negative (Negative) Urine Bilirubin Negative (Negative) Urine Urobilinogen Negative (Negative) Ur Leukocyte Esterase 2+ H (Negative) Urine WBC (Auto) 1-5 (0-5) /hpf Urine RBC (Auto) 0-4 (0-4) /hpf U Hyaline Cast (Auto) 1-5 (0-5) /lpf U Epithel Cells (Auto) >30 H (0-5) /lpf Urine Bacteria (Auto) Negative (Negative) Urine Yeast Not Reportable Valproic Acid 54 (50-100) mcg/ml Adenovirus (PCR) Not Detected (NotDetected) B. pertussis DNA (PCR) Not Detected (NotDetected) B.parapertussis DNA PCR Not Detected (NotDetected) C. pneumoniae DNA (PCR) Not Detected (NotDetected) Coronavirus OC43 (PCR) Not Detected (NotDetected) Coronavirus HKU1 (PCR) Not Detected (NotDetected) Coronavirus 229E (PCR) Not Detected (NotDetected) SARS-CoV-2 (PCR) Not Detected (NotDetected) Coronavirus NL63 (PCR) Not Detected (NotDetected) Human Metapneumovir PCR Not Detected (NotDetected) Influenza Type A (PCR) Not Detected (NotDetected) Influenza Type B (PCR) Not Detected (NotDetected) M. pneumoniae (PCR) Not Detected (NotDetected) Parainfluenza 1 (PCR) Not Detected (NotDetected) Parainfluenza 2 (PCR) Not Detected (NotDetected) Parainfluenza 3 (PCR) Not Detected (NotDetected) Parainfluenza 4 (PCR) Not Detected (NotDetected) RSV (PCR) Not Detected (NotDetected) Entero/Rhino (PCR) DETECTED A* (NotDetected) 10/03/23 Range/Units 20:10 WBC (4.8-10.8) K/ul RBC (4.20-5.40) M/uL Hgb (12.0-16.0) g/dl Hct (37.0-47.0) % MCV (80.0-100.0) fL MCH (25.0-34.0) pg MCHC (32.0-36.0) g/dL RDW Std Deviation (36.4-46.3) fL RDW Coeff of [place] (11.5-14.5) % Plt Count (130-400) K/uL MPV (9.4-12.4) fL Immature Gran % (Auto) % Neut % (Auto) % Lymph % (Auto) % [place] % (Auto) % Eos % (Auto) % Baso % (Auto) % Neut # (Auto) (1.40-6.50) K/uL Lymph # (Auto) (1.20-3.40) K/uL [place] # (Auto) (0.11-0.59) K/uL Eos # (Auto) (0.00-0.50) K/uL Baso # (Auto) (0.00-0.20) K/uL Immature Gran # (Auto) (0.01-0.20) K/uL Sodium (136-145) mmol/L Potassium (3.5-5.1) mmol/L Chloride (98-107) mmol/L Carbon Dioxide (21-32) mmol/L Anion Gap (3-11) BUN (6-23) mg/dl Creatinine (0.6-1.2) mg/dl Est Cr Clr Drug Dosing ml/min Est GFR ( Amer) ml/min Est GFR (Non-Af Amer) ml/min BUN/Creatinine Ratio (10-20) Glucose (70-99(Fasting)) mg/dl Lactate 2.6 H* (0.4-2.0) mmol/L Calcium (8.6-10.3) mg/dl Magnesium (1.7-2.4) mg/dl Total Bilirubin (0.2-1.0) mg/dl AST (13-39) U/L ALT (7-52) U/L Alkaline Phosphatase (34-104) U/L Troponin I High Sens (0-14) pg/ml Total Protein (6.0-8.3) gm/dl Albumin (3.4-5.0) gm/dl Globulin (2.5-4.0) gm/dl Albumin/Globulin Ratio (0.9-2) Lipase (11-82) U/L Procalcitonin (0-0.5) ng/ml Urine Color Urine Appearance (Clear) Urine pH (4.5-7.5) Ur Specific [place] (1.000-1.030) Urine Protein (Negative) Urine Glucose (UA) (Negative) Urine Ketones (Negative) Urine Blood (Negative) Urine Nitrite (Negative) Urine Bilirubin (Negative) Urine Urobilinogen (Negative) Ur Leukocyte Esterase (Negative) Urine WBC (Auto) (0-5) /hpf Urine RBC (Auto) (0-4) /hpf U Hyaline Cast (Auto) (0-5) /lpf U Epithel Cells (Auto) (0-5) /lpf Urine Bacteria (Auto) (Negative) Urine Yeast Valproic Acid (50-100) mcg/ml Adenovirus (PCR) (NotDetected) B. pertussis DNA (PCR) (NotDetected) B.parapertussis DNA PCR (NotDetected) C. pneumoniae DNA (PCR) (NotDetected) Coronavirus OC43 (PCR) (NotDetected) Coronavirus HKU1 (PCR) (NotDetected) Coronavirus 229E (PCR) (NotDetected) SARS-CoV-2 (PCR) (NotDetected) Coronavirus NL63 (PCR) (NotDetected) Human Metapneumovir PCR (NotDetected) Influenza Type A (PCR) (NotDetected) Influenza Type B (PCR) (NotDetected) M. pneumoniae (PCR) (NotDetected) Parainfluenza 1 (PCR) (NotDetected) Parainfluenza 2 (PCR) (NotDetected) Parainfluenza 3 (PCR) (NotDetected) Parainfluenza 4 (PCR) (NotDetected) RSV (PCR) (NotDetected) Entero/Rhino (PCR) (NotDetected) Administered Medications Discontinued Medications Acetaminophen (Acetaminophen 325 Mg Tab) 650 mg PO NOW STA Stop: 10/03/23 20:13 Last Admin: 10/03/23 20:24 Dose: 650 mg Documented By: CHRISTAL Sodium Chloride (Nss) 1,000 mls @ 999 mls/hr IV .Q1H1M ONE Stop: 10/03/23 18:57 Last Infusion: 10/03/23 19:43 Dose: Infused Documented By: Admin: 10/03/23 18:07 Dose: 999 mls/hr Documented By: YUE Ceftriaxone Sodium (Rocephin) 2,000 mg in 50 mls @ 100 mls/hr IV NOW STA Stop: 10/03/23 18:31 Last Infusion: 10/03/23 19:43 Dose: Infused Documented By: Admin: 10/03/23 18:37 Dose: 100 mls/hr Documented By: YUE Sodium Chloride (Nss) 500 mls @ 999 mls/hr IV .Q31M ONE Stop: 10/03/23 18:34 Last Infusion: 10/03/23 18:39 Dose: Infused Documented By: Admin: 10/03/23 18:07 Dose: 999 mls/hr Documented By: YUE Ioversol (Optiray 320 500ml) 90 ml IV ONCE ONE Stop: 10/03/23 19:55 Last Admin: 10/03/23 19:57 Dose: 90 ml Documented By: DOLORES Ondansetron HCl (Ondansetron Inj 2 Mg/Ml 2 Ml Vial) 4 mg IV NOW STA Stop: 10/03/23 19:10 Last Admin: 10/03/23 20:01 Dose: 4 mg Documented By: CHRISTAL Imaging Data Radiologist's Impression: Chest X-Ray 10/03/23 17:16 XR chest 1V portable CLINICAL HISTORY: Vomiting. COMPARISON STUDY: Chest radiograph September 12, 2023. FINDINGS: Lung volumes are normal. Lungs are clear. There is no pneumothorax or pleural effusion. Cardiac size is stable. Mediastinal contours are normal. There is no evidence for pulmonary edema. IMPRESSION: No acute cardiopulmonary findings. No significant change in appearance of the chest. ACT 112: Negative or not required by law. Electronically signed by: Bryn East M.D. 10/03/2023 6:53 PM Abdomen/Pelvis CT 10/03/23 18:04 CT OF THE ABDOMEN AND PELVIS WITH CONTRAST CLINICAL HISTORY: Abdominal pain. Sepsis. COMPARISON STUDY: CT of the abdomen and pelvis August 13, 2023. KUB September 18, 2023. TECHNIQUE: Following IV administration of 90 mL of Optiray, axial images of the abdomen and pelvis were obtained from the lung bases to the proximal femurs. Images were reviewed in the axial, sagittal, and coronal planes. IV contrast was administered without complication. Automated exposure control was utilized for the study. A dose lowering technique was utilized adhering to the principles of ALARA. CT DOSE: 1408.89 mGy.cm FINDINGS: No pneumatosis, free air or portal venous gas is present. Mild dilatation of the common bile duct is unchanged and likely related to cholecystectomy. There is hepatic steatosis. No hepatic lesions are present. Spleen, adrenal glands and kidneys are unremarkable with the exception of a few subcentimeter renal lesions which are too small to characterize. There is no hydronephrosis. The caliber and wall thickness of small and large bowel are normal. There is no ascites or lymphadenopathy. No fluid collections are identified. The appendix is not visualized but there is no right lower quadrant inflammation. No acute fractures are identified within the visualized skeletal structures. IMPRESSION: 1. No acute process within the abdomen or pelvis. 2. No bowel obstruction. No bowel wall thickening. 3. Hepatic steatosis. ACT 112: Negative or not required by law. Electronically signed by: Bryn East M.D. 10/03/2023 9:10 PM Discharge Plan Visit Data Chief Complaint: Vomiting ED Provider: Phong Ryder Discharge Problem: Weakness, Vomiting, Elevated lactic acid level, Rhinovirus Forms Stand Alone Forms: [facility] Prescriptions Prescriptions: No Action buspirone 15 mg tablet 15 mg PO TID Creon 12,000-38,000 -60,000 unit capsule,delayed release(DR/EC) 2 cap PO TID Xarelto 20 mg tablet 20 mg PO QAM ropinirole 0.5 mg tablet 0.5 mg PO HS escitalopram oxalate [Lexapro] 20 mg tablet 20 mg PO QAM benztropine 0.5 mg tablet 0.5 mg PO BID quetiapine 400 mg tablet 400 mg PO HS gabapentin 100 mg capsule 200 mg PO HS pantoprazole [Protonix] 40 mg tablet,delayed release (DR/EC) 40 mg PO QAM metformin 500 mg tablet extended release 24 hr 500 mg PO BID cholestyramine (with sugar) 4 gram powder See Rx Instructions .ROUTE .COMPLEX Rx Instructions: DISSOLVE ONE AND ONE-HALF scoops into EIGHT ounces of JUICE OR water EVERY DAY divalproex 500 mg tablet extended release 24 hr 1,500 mg PO HS meloxicam 15 mg tablet 15 mg PO UD Rx Instructions: not found in prepackaged meds but shows up in surescripts...pt not sure if she takes it or not clonazepam 1 mg tablet 1 mg PO TID PRN (Reason: Anxiety) gabapentin 100 mg capsule 100 mg PO BID17 Rx Instructions: TAKE 100 MG QAM & NOON, THEN 200 MG AT HS. loratadine [Claritin] 10 mg Tablet 10 mg PO DAILY Referrals Referrals: Desmond Villasenor MD [Primary Care Provider] - Discharge Problem: Vomiting Qualifiers: Vomiting type: unspecified Nausea presence: unspecified Qualified Code(s): R 11.10 - Vomiting, unspecified
[2023-10-03] MEDS ORDERED: cefTRIAXone SODIUM 2,000 MG/50 ML BAG IV STA (18:02)
[2023-10-03] MEDS ORDERED: SODIUM CHLORIDE 0.9% 500 ML IV ONE (18:04)
[2023-10-03 18:12] LABS: Basophils # (auto) 0.05 K/uL (0.00-0.20); Basophils % (auto) 0.5 %; Eosinophils # (auto) 0.34 K/uL (0.00-0.50); Eosinophils % (auto) 3.4 %; Hematocrit (blood only) 48.7 % (37.0-47.0); Hemoglobin 16.2 g/dl (12.0-16.0); Immature Granulocytes # (auto) 0.13 K/uL (0.01-0.20); Immature Granulocytes % (auto) 1.3 %; Lymphocytes # (auto) 2.51 K/uL (1.20-3.40); Mean Corpuscular Hgb Conc 33.3 g/dL (32.0-36.0); Mean Corpuscular Volume 90.2 fL (80.0-100.0); Mean Platelet Volume 9.3 fL (9.4-12.4); Monocytes # (auto) 0.69 K/uL (0.11-0.59); Monocytes % (auto) 6.9 %; Neutrophils # (auto) 6.33 K/uL (1.40-6.50); Neutrophils % (auto) 62.9 %; Platelet Count 262 K/uL (130-400); RDW Coefficient of Variation 13.2 % (11.5-14.5); RDW Standard Deviation 42.9 fL (36.4-46.3); White Blood Count 10.05 K/ul (4.8-10.8)
[2023-10-03 18:30] LABS: Albumin Level 3.9 gm/dl (3.4-5.0); BUN Creatinine Ratio 11.6 (10-20); Bilirubin,Total 0.4 mg/dl (0.2-1.0); Calcium 9.8 mg/dl (8.6-10.3); Est GFR (African American) 105.1 ml/min; Est GFR (Non-African American) 90.7 ml/min; Globulin 3.8 gm/dl (2.5-4.0); Magnesium 1.5 mg/dl (1.7-2.4); Potassium 4.4 mmol/L (3.5-5.1); Total Protein 7.7 gm/dl (6.0-8.3)
[2023-10-03 18:34] LABS: Troponin I High Sensitivity 3.6 pg/ml (0-14)
[2023-10-03 18:51] LABS: Appearance Urine Cloudy (Clear); Bacteria Urine Automated Negative (Negative); Bilirubin Urine Negative (Negative); Blood Urine Negative (Negative); Color Urine Yellow; Epithelial Cell Urine Auto >30 /lpf (0-5); Glucose Urine UA Negative (Negative); Ketones Urine Trace (Negative); Leukocyte Esterase Urine 2+ (Negative); Nitrite Urine Negative (Negative); Protein Urine Negative (Negative); Specific Gravity Urine 1.015 (1.000-1.030); Urobilinogen Urine Negative (Negative)
--- NOTE | 2023-10-03 18:54 | XRay Report ---
XR chest 1V portable CLINICAL HISTORY: Vomiting. COMPARISON STUDY: Chest radiograph September 12, 2023. FINDINGS: Lung volumes are normal. Lungs are clear. There is no pneumothorax or pleural effusion. Car diac size is stable. Mediastinal contours are normal. There is no evidence for pulmonary edema. IMPRESSION: No acute cardiopulmonary findings. No significant change in appearance of the chest. ACT 112: Negative or not required by law. Electronically signed by: Bryn East M.D. 10/03/2023 6:53 PM
[2023-10-03 19:02] LABS: Adenovirus PCR Not Detected (NotDetected); Bordetella parapertussis PCR Not Detected (NotDetected); Bordetella pertussis PCR Not Detected (NotDetected); Chlamydia pneumoniae PCR Not Detected (NotDetected); Coronavirus 229E PCR Not Detected (NotDetected); Coronavirus CoV-2 (COVID19)PCR Not Detected (NotDetected); Coronavirus HKU1 PCR Not Detected (NotDetected); Coronavirus NL63 PCR Not Detected (NotDetected); Coronavirus OC43PCR Not Detected (NotDetected); Human Metapneumovirus PCR Not Detected (NotDetected); Influenza A PCR Not Detected (NotDetected); Influenza B PCR Not Detected (NotDetected); Mycoplasma pneumoniae PCR Not Detected (NotDetected); Parainfluenza Virus 1 PCR Not Detected (NotDetected); Parainfluenza Virus 2 PCR Not Detected (NotDetected); Parainfluenza Virus 3 PCR Not Detected (NotDetected); Parainfluenza Virus 4 PCR Not Detected (NotDetected); Respiratory Syncytial VirusPCR Not Detected (NotDetected)
[2023-10-03 19:03] LABS: RBC Urine Automated 0-4 /hpf (0-4)
[2023-10-03 19:06] LABS: Rhinovirus/Enterovirus PCR DETECTED (NotDetected)
[2023-10-03] MEDS ORDERED: ONDANSETRON INJ 2 MG/ML 2 ML VIAL IV STA (19:09)
[2023-10-03] MEDS ORDERED: OPTIRAY 320 500ml IV ONE (19:54)
[2023-10-03] MEDS ORDERED: ACETAMINOPHEN 325 MG TAB PO STA (20:12)
--- NOTE | 2023-10-03 21:13 | CT Scan Report ---
CT OF THE ABDOMEN AND PELVIS WITH CONTRAST CLINICAL HISTORY: Abdominal pain. Sepsis. COMPARISON STUDY: CT of the abdomen and pelvis August 13, 2023. KUB September 18, 2023. TECHNIQUE: Following IV administration of 90 mL of Optiray, axial images of the abdomen and pelvis we re obtained from the lung bases to the proximal femurs. Images were reviewed in the axial, sagittal, and coronal planes. IV contrast was administered without complication. Automated exposure control wa s utilized for the study. A dose lowering technique was utilized adhering to the principles of ALARA . CT DOSE: 1408.89 mGy.cm FINDINGS: No pneumatosis, free air or portal venous gas is present. Mild dilatation of the common josé luis e duct is unchanged and likely related to cholecystectomy. There is hepatic steatosis. No hepatic les ions are present. Spleen, adrenal glands and kidneys are unremarkable with the exception of a few sub centimeter renal lesions which are too small to characterize. There is no hydronephrosis. The caliber and wall thickness of small and large bowel are normal. There is no ascites or lymphadenopathy. No f luid collections are identified. The appendix is not visualized but there is no right lower quadrant inflammation. No acute fractures are identified within the visualized skeletal structures. IMPRESSION: 1. No acute process within the abdomen or pelvis. 2. No bowel obstruction. No bowel wall thickening. 3. Hepatic steatosis. ACT 112: Negative or not required by law. Electronically signed by: Bryn East M.D. 10/03/2023 9:10 PM
[2023-10-03] MEDS ORDERED: SODIUM CHLORIDE 0.9% 1,000 ML IV STA (21:42)
[2023-10-03] MEDS ORDERED: CEFEPIME 2,000 MG/20 ML VIAL IV STA (21:43)
[2023-10-03] MEDS ORDERED: DAPTOmycin 275 MG in SYRINGE 0 ML IV STA (21:49)
[2023-10-03] MEDS: MAGNESIUM SULFATE / D5W 1 GM/100 ML BAG IV SCH (22:04)
[2023-10-03] MEDS ORDERED: metroNIDAZOLE 500 MG/100 ML BAG IV STA (23:36)
[2023-10-03] MEDS ORDERED: guaiFENesin 600 MG TABCR PO STA (23:49)
--- NOTE | 2023-10-04 00:55 | CT Scan Report ---
Exam(s): CT HEAD Without Contrast EXAM: CT Head Without Intravenous Contrast CLINICAL HISTORY: Reason for exam: cast, everardo. TECHNIQUE: Axial computed tomography images of the head/brain without intravenous contrast. CTDI is 36.18 mGy and DLP is 625.8 mGy-cm. Automated exposure control was utilized for the study. A dose lowering technique was utilized adhering to the principles of ALARA. COMPARISON: No relevant prior studies available. FINDINGS: No acute intracranial hemorrhage. No midline shift or mass effect. The territorial mix-white matter differentiation is maintained throughout. Age-related cerebral volume loss. Periventricular and subcortical white matter hypoattenuation, consistent with chronic microangiopathy. The visualized orbits appear grossly unremarkable. The calvarium is intact. The visualized paranasal sinuses and mastoid air cells are grossly clear. IMPRESSION: No acute intracranial hemorrhage, midline shift, or mass effect. Electronically signed by: Jose Edouard MD 10/04/23 00:54 AM
[2023-10-04] MEDS: MAGNESIUM SULFATE / D5W 1 GM/100 ML BAG IV SCH (01:05)
--- NOTE | 2023-10-04 01:30 | History & Physical Report ---
Date of Service October 04, 2023 Assessment & Plan (1) Hypotension: Plan: Transient hypotension secondary to hypovolemia secondary to decreased p.o. intake, emesis secondary to illness Viral bronchitis (enterorhinovirus) Complicated UTI, possible sepsis Diarrheal illness secondary to viral illness (acute on chronic diarrhea ) rule out C. difficile DM 2 on oral medications, well-controlled as of recent hemoglobin A1c of 6.7 last July 2023 chronic pain schizophrenia/anxiety/mood disorder, at baseline ongoing tobacco abuse Medical telemetry given transient hypotension IVF, supportive management for viral bronchitis CS, Daptomycin and cefepime for now Stool C. difficile, Flagyl 1 dose for now given lactic acidosis, oral vancomycin if C. difficile positive Basal bolus insulin, ISS BG goal 1 10-1 40, carb count coverage Nicotine patch as needed PT OT eval once medically stable DVT prophylaxis. Xarelto Full code Patient requests for daughter to be given periodic updates regarding her care. Marcela Scott, contact #[phone]. Text document was generated using [employer] what's in [employer] voice recognition software. It may contain grammatical or spelling errors. Kindly contact undersigned for clarification of any documentation item in question. History of Present Illness Chief Complaint: Nausea, emesis, weakness Primary Care Provider: Desmond Villasenor MD History obtained from patient and records. Medical history significant for history of PE on Xarelto, DM 2 on oral medications, GERD, IBS, chronic pain, schizophrenia/anxiety/mood disorder, ongoing tobacco abuse. Last confinement June 2023 for E. coli UTI. Recent ER visit 2 weeks ago for nausea vomiting symptoms after consuming large amount of ravioli and candy bars. Patient discharged from the ER. GI symptoms resolved at home. Few days ago, patient noted cough symptoms, patient unable to expectorate. Denies aspiration. Patient has received COVID-19 vaccination. No chest pain, no fever, no chills. Decreased appetite. Today she had achy abdominal pain with nausea and emesis. Diarrhea worse than usual. Achy headache without bleeding complaints. Denies dysuria. Increasing generalized weakness. SBP 90s upon arrival at the ER. NSS bolus and IV ceftriaxone administered at the ER. Medical History as above Surgical History : section, cholecystectomy, ROLANDO Family History : Bowel cancer, DM Personal/Social history : 1 pack daily, EtOH intake, disabled, lives with daughter Allergies Allergy/AdvReac Type Severity Reaction Status Date / Time bee venom protein (honey bee) Allergy Severe Anaphylaxis Unverified 10/03/23 20:14 egg AdvReac Severe Vomiting Verified 10/03/23 20:14 Penicillins AdvReac Severe VOMITING/IT Verified 10/03/23 20:14 DAVON Home Medications Medication Instructions Recorded Confirmed Type buspirone 15 mg tablet 15 mg PO TID 10/25/20 10/03/23 History nsbmnv-[id number]-[id number] 2 cap PO TID 10/25/20 10/03/23 History 12,000-38,000-60,000 unit capsule,delayed rel (Creon) rivaroxaban 20 mg tablet (Xarelto) 20 mg PO QAM 10/25/20 10/03/23 History escitalopram oxalate 20 mg tablet 20 mg PO QAM 03/18/21 10/03/23 History (Lexapro) ropinirole 0.5 mg tablet 0.5 mg PO HS 03/18/21 10/03/23 History benztropine 0.5 mg tablet 0.5 mg PO BID 07/25/22 10/03/23 History quetiapine 400 mg tablet 400 mg PO HS 07/25/22 10/03/23 History clonazepam 1 mg tablet 1 mg PO TID PRN Anxiety 01/13/23 10/03/23 History gabapentin 100 mg capsule 100 mg PO BID17 01/13/23 10/03/23 History loratadine 10 mg tablet (Claritin) 10 mg PO DAILY 01/13/23 10/03/23 History gabapentin 100 mg capsule 200 mg PO HS 03/14/23 10/03/23 History pantoprazole 40 mg tablet,delayed 40 mg PO QAM 03/14/23 10/03/23 History release (Protonix) cholestyramine (with sugar) 4 gram See Rx Instructions .Route .COMPLEX 06/14/23 10/03/23 History oral powder metformin 500 mg tablet,extended 500 mg PO BID 06/14/23 10/03/23 History release 24 hr divalproex 500 mg tablet,extended 1,500 mg PO HS 09/12/23 10/03/23 History release 24 hr meloxicam 15 mg tablet 15 mg PO UD 10/03/23 10/03/23 History Past Med/Surg History Medical History Anemia Anxiety and depression Arthritis Aspiration pneumonia Chronic diarrhea Diabetes Enteritis due to [place] virus Folate deficiency Generalized weakness GERD (gastroesophageal reflux disease) History of pulmonary embolism Hyperparathyroidism Hypothyroid Intractable nausea and vomiting Iron deficiency anemia Irritable bowel syndrome Pulmonary embolism Rectal bleeding Restless leg Schizoaffective disorder Smoking Surgical History History of section x2 History of cholecystectomy History of hysterectomy Family History Mother Diabetes Sister Diabetes Denies family history of Inflammatory bowel disease Social History Smoking Status: Current every day smoker Tobacco Type: Cigarettes Cigarettes Per Day: unknown; Second Hand Exposure: Yes; Do You Dip or Chew Tobacco: No; Hx Alcohol Use: No Hx Substance Use: No Preferred Language: Hungarian Communication Ability: Effective 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 How many Children do You have: 2 Feels Safe at Home: Yes Assistive Devices: Walker Review of Systems Review of Systems: As per HPI, all other systems reviewed and negative Physical Exam Physical Exam: GENERAL: Comfortable, pleasant, morbidly obese, looks older than stated age, no respiratory distress SKIN: Normal color, warm HEENT: Virgin palpebral conjunctivae, no ptosis, dry buccal mucosa, edentulous NECK : Supple, short neck, no tenderness CHEST : Decreased breath sounds, no tenderness HEART : RRR, no obvious murmurs ABDOMEN: Some distention, minimal hypogastric tenderness EXTREMITIES : Minimal LE swelling/tenderness, no other conspicuous deformities noted NEUROLOGIC : Coherent, no facial asymmetry, gait and stance not assessed Results & Data Results & Data Vital Signs (Past 12 Hours) Vital Signs Temp Pulse Pulse Resp BP BP Pulse Ox 10/04/23 00:00 87 19 118/81 95 10/03/23 22:12 85 10/03/23 22:07 89 19 132/76 94 10/03/23 20:00 94 H 17 95 10/03/23 18:24 109 H 10/03/23 18:00 106 H 18 119/92 91 10/03/23 17:51 93 10/03/23 17:13 36.7 C 112 H 20 90/68 L 93 O2 Del Method 10/04/23 00:00 10/03/23 22:12 10/03/23 22:07 10/03/23 20:00 10/03/23 18:24 10/03/23 18:00 Room Air 10/03/23 17:51 Room Air 10/03/23 17:13 Room Air Laboratory Results Laboratory Results WBC 10.05 K/ul (4.8-10.8) 10/03/23 17:40 RBC 5.40 M/uL (4.20-5.40) 10/03/23 17:40 Hgb 16.2 g/dl (12.0-16.0) H 10/03/23 17:40 Hct 48.7 % (37.0-47.0) H 10/03/23 17:40 MCV 90.2 fL (80.0-100.0) 10/03/23 17:40 MCH 30.0 pg (25.0-34.0) 10/03/23 17:40 MCHC 33.3 g/dL (32.0-36.0) 10/03/23 17:40 RDW Std Deviation 42.9 fL (36.4-46.3) 10/03/23 17:40 RDW Coeff of [place] 13.2 % (11.5-14.5) 10/03/23 17:40 Plt Count 262 K/uL (130-400) 10/03/23 17:40 MPV 9.3 fL (9.4-12.4) L 10/03/23 17:40 Immature Gran % (Auto) 1.3 % 10/03/23 17:40 Neut % (Auto) 62.9 % 10/03/23 17:40 Lymph % (Auto) 25.0 % 10/03/23 17:40 [place] % (Auto) 6.9 % 10/03/23 17:40 Eos % (Auto) 3.4 % 10/03/23 17:40 Baso % (Auto) 0.5 % 10/03/23 17:40 Neut # (Auto) 6.33 K/uL (1.40-6.50) 10/03/23 17:40 Lymph # (Auto) 2.51 K/uL (1.20-3.40) 10/03/23 17:40 [place] # (Auto) 0.69 K/uL (0.11-0.59) H 10/03/23 17:40 Eos # (Auto) 0.34 K/uL (0.00-0.50) 10/03/23 17:40 Baso # (Auto) 0.05 K/uL (0.00-0.20) 10/03/23 17:40 Immature Gran # (Auto) 0.13 K/uL (0.01-0.20) 10/03/23 17:40 Sodium 139 mmol/L (136-145) 10/03/23 17:40 Potassium 4.4 mmol/L (3.5-5.1) 10/03/23 17:40 Chloride 102 mmol/L (98-107) 10/03/23 17:40 Carbon Dioxide 27 mmol/L (21-32) 10/03/23 17:40 Anion Gap 10 (3-11) 10/03/23 17:40 BUN 8 mg/dl (6-23) 10/03/23 17:40 Creatinine 0.69 mg/dl (0.6-1.2) 10/03/23 17:40 Est Cr Clr Drug Dosing 89.0 ml/min 10/03/23 17:40 Est GFR ( Amer) 105.1 ml/min 10/03/23 17:40 Est GFR (Non-Af Amer) 90.7 ml/min 10/03/23 17:40 BUN/Creatinine Ratio 11.6 (10-20) 10/03/23 17:40 Glucose 122 mg/dl (70-99(Fasting)) H 10/03/23 17:40 Lactate 2.6 mmol/L (0.4-2.0) H* 10/03/23 20:10 Calcium 9.8 mg/dl (8.6-10.3) 10/03/23 17:40 Magnesium 1.5 mg/dl (1.7-2.4) L 10/03/23 17:40 Total Bilirubin 0.4 mg/dl (0.2-1.0) 10/03/23 17:40 AST 24 U/L (13-39) 10/03/23 17:40 ALT 14 U/L (7-52) 10/03/23 17:40 Alkaline Phosphatase 94 U/L (34-104) 10/03/23 17:40 Troponin I High Sens 3.6 pg/ml (0-14) 10/03/23 17:40 Total Protein 7.7 gm/dl (6.0-8.3) 10/03/23 17:40 Albumin 3.9 gm/dl (3.4-5.0) 10/03/23 17:40 Globulin 3.8 gm/dl (2.5-4.0) 10/03/23 17:40 Albumin/Globulin Ratio 1.0 (0.9-2) 10/03/23 17:40 Lipase 19 U/L (11-82) 10/03/23 17:40 Procalcitonin < 0.05 ng/ml (0-0.5) 10/03/23 17:40 Urine Color Yellow 10/03/23 18:31 Urine Appearance Cloudy (Clear) A 10/03/23 18:31 Urine pH 6.0 (4.5-7.5) 10/03/23 18:31 Ur Specific [place] 1.015 (1.000-1.030) 10/03/23 18:31 Urine Protein Negative (Negative) 10/03/23 18:31 Urine Glucose (UA) Negative (Negative) 10/03/23 18:31 Urine Ketones Trace (Negative) H 10/03/23 18:31 Urine Blood Negative (Negative) 10/03/23 18:31 Urine Nitrite Negative (Negative) 10/03/23 18:31 Urine Bilirubin Negative (Negative) 10/03/23 18:31 Urine Urobilinogen Negative (Negative) 10/03/23 18:31 Ur Leukocyte Esterase 2+ (Negative) H 10/03/23 18:31 Urine WBC (Auto) 1-5 /hpf (0-5) 10/03/23 18:31 Urine RBC (Auto) 0-4 /hpf (0-4) 10/03/23 18:31 U Hyaline Cast (Auto) 1-5 /lpf (0-5) 10/03/23 18:31 U Epithel Cells (Auto) >30 /lpf (0-5) H 10/03/23 18:31 Urine Bacteria (Auto) Negative (Negative) 10/03/23 18:31 Urine Yeast Not Reportable 10/03/23 18:31 Stl C. diff Tox B Gene Negative Cdiff Gene (Neg) 10/03/23 23:53 Valproic Acid 54 mcg/ml (50-100) 10/03/23 18:16 Adenovirus (PCR) Not Detected (NotDetected) 10/03/23 17:40 B. pertussis DNA (PCR) Not Detected (NotDetected) 10/03/23 17:40 B.parapertussis DNA PCR Not Detected (NotDetected) 10/03/23 17:40 C. pneumoniae DNA (PCR) Not Detected (NotDetected) 10/03/23 17:40 Coronavirus OC43 (PCR) Not Detected (NotDetected) 10/03/23 17:40 Coronavirus HKU1 (PCR) Not Detected (NotDetected) 10/03/23 17:40 Coronavirus 229E (PCR) Not Detected (NotDetected) 10/03/23 17:40 SARS-CoV-2 (PCR) Not Detected (NotDetected) 10/03/23 17:40 Coronavirus NL63 (PCR) Not Detected (NotDetected) 10/03/23 17:40 Human Metapneumovir PCR Not Detected (NotDetected) 10/03/23 17:40 Influenza Type A (PCR) Not Detected (NotDetected) 10/03/23 17:40 Influenza Type B (PCR) Not Detected (NotDetected) 10/03/23 17:40 M. pneumoniae (PCR) Not Detected (NotDetected) 10/03/23 17:40 Parainfluenza 1 (PCR) Not Detected (NotDetected) 10/03/23 17:40 Parainfluenza 2 (PCR) Not Detected (NotDetected) 10/03/23 17:40 Parainfluenza 3 (PCR) Not Detected (NotDetected) 10/03/23 17:40 Parainfluenza 4 (PCR) Not Detected (NotDetected) 10/03/23 17:40 RSV (PCR) Not Detected (NotDetected) 10/03/23 17:40 Entero/Rhino (PCR) DETECTED (NotDetected) A* 10/03/23 17:40 Impressions Chest X-Ray 10/03/23 17:16 XR chest 1V portable CLINICAL HISTORY: Vomiting. COMPARISON STUDY: Chest radiograph September 12, 2023. FINDINGS: Lung volumes are normal. Lungs are clear. There is no pneumothorax or pleural effusion. Cardiac size is stable. Mediastinal contours are normal. There is no evidence for pulmonary edema. IMPRESSION: No acute cardiopulmonary findings. No significant change in appearance of the chest. ACT 112: Negative or not required by law. Electronically signed by: Bryn East M.D. 10/03/2023 6:53 PM Abdomen/Pelvis CT 10/03/23 18:04 CT OF THE ABDOMEN AND PELVIS WITH CONTRAST CLINICAL HISTORY: Abdominal pain. Sepsis. COMPARISON STUDY: CT of the abdomen and pelvis August 13, 2023. KUB September 18, 2023. TECHNIQUE: Following IV administration of 90 mL of Optiray, axial images of the abdomen and pelvis were obtained from the lung bases to the proximal femurs. Images were reviewed in the axial, sagittal, and coronal planes. IV contrast was administered without complication. Automated exposure control was utilized for the study. A dose lowering technique was utilized adhering to the principles of ALARA. CT DOSE: 1408.89 mGy.cm FINDINGS: No pneumatosis, free air or portal venous gas is present. Mild dilatation of the common bile duct is unchanged and likely related to cholecystectomy. There is hepatic steatosis. No hepatic lesions are present. Spleen, adrenal glands and kidneys are unremarkable with the exception of a few subcentimeter renal lesions which are too small to characterize. There is no hydronephrosis. The caliber and wall thickness of small and large bowel are normal. There is no ascites or lymphadenopathy. No fluid collections are identified. The appendix is not visualized but there is no right lower quadrant inflammation. No acute fractures are identified within the visualized skeletal structures. IMPRESSION: 1. No acute process within the abdomen or pelvis. 2. No bowel obstruction. No bowel wall thickening. 3. Hepatic steatosis. ACT 112: Negative or not required by law. Electronically signed by: Bryn East M.D. 10/03/2023 9:[address] 10/03/23 22:09 Exam(s): CT HEAD Without Contrast EXAM: CT Head Without Intravenous Contrast CLINICAL HISTORY: Reason for exam: everardo cast. TECHNIQUE: Axial computed tomography images of the head/brain without intravenous contrast. CTDI is 36.18 mGy and DLP is 625.8 mGy-cm. Automated exposure control was utilized for the study. A dose lowering technique was utilized adhering to the principles of ALARA. COMPARISON: No relevant prior studies available. FINDINGS: No acute intracranial hemorrhage. No midline shift or mass effect. The territorial mix-white matter differentiation is maintained throughout. Age-related cerebral volume loss. Periventricular and subcortical white matter hypoattenuation, consistent with chronic microangiopathy. The visualized orbits appear grossly unremarkable. The calvarium is intact. The visualized paranasal sinuses and mastoid air cells are grossly clear. IMPRESSION: No acute intracranial hemorrhage, midline shift, or mass effect. Electronically signed by: Jose Edouard MD 10/04/23 00:54 AM Diagnostic Findings EKG as per my interpretation :Rate 110, sinus tachycardia, RAD, RBBB, no ischemia
[2023-10-04] MEDS ORDERED: PROMETHAZINE HCL 12.5 MG in SODIUM CHLORIDE 0.9% 50 ML IV PRN (01:35)
[2023-10-04] MEDS ORDERED: ACETAMINOPHEN 325 MG TAB PO PRN (01:36)
[2023-10-04] MEDS ORDERED: CARBOHYDRATES FOR HYPOGLYCEMIA PO PRN (01:53)
[2023-10-04] MEDS ORDERED: DEXTROSE 50% 50 ML SYRINGE IV PRN (01:53)
[2023-10-04] MEDS ORDERED: GLUCOSE 10 TAB/TUBE PO PRN (01:53)
[2023-10-04] MEDS ORDERED: clonazePAM 1 MG TAB PO PRN (01:53)
[2023-10-04] MEDS ORDERED: GLUCOSE 40% GEL 15 GM TUBE PO PRN (01:53)
[2023-10-04] MEDS ORDERED: GLUCAGON FOR INJ 1 MG VIAL SQ PRN (01:53)
[2023-10-04] MEDS: INSULIN ASPART PER UNIT CHARGE SC SCH ×5 (02:28→21:20)
[2023-10-04] MEDS ORDERED: SODIUM CHLORIDE 0.9% 1,000 ML IV ONE (02:28)
[2023-10-04] MEDS: DIVALPROEX EXTENDED RELEASE 500 MG TAB PO SCH ×2 (03:00→20:01)
[2023-10-04] MEDS ORDERED: CEFEPIME 2,000 MG/20 ML VIAL ONE ×2 (05:24→13:14)
[2023-10-04] MEDS: CEFEPIME 2,000 MG in SYRINGE 0 ML IV SCH ×3 (05:27→21:19)
[2023-10-04] MEDS: GABAPENTIN 100 MG CAP PO SCH ×3 (08:20→20:01)
[2023-10-04] MEDS: PANTOprazole 40 MG TAB PO SCH (08:20)
[2023-10-04 08:21] LABS: Basophils # (auto) 0.03 K/uL (0.00-0.20); Basophils % (auto) 0.3 %; Eosinophils # (auto) 0.66 K/uL (0.00-0.50); Eosinophils % (auto) 7.6 %; Hematocrit (blood only) 38.3 % (37.0-47.0); Hemoglobin 12.7 g/dl (12.0-16.0); Immature Granulocytes # (auto) 0.08 K/uL (0.01-0.20); Immature Granulocytes % (auto) 0.9 %; Lymphocytes # (auto) 2.31 K/uL (1.20-3.40); Lymphocytes % (auto) 26.5 %; Mean Corpuscular Hemoglobin 30.2 pg (25.0-34.0); Mean Corpuscular Hgb Conc 33.2 g/dL (32.0-36.0); Mean Platelet Volume 9.5 fL (9.4-12.4); Monocytes # (auto) 0.64 K/uL (0.11-0.59); Monocytes % (auto) 7.3 %; Neutrophils # (auto) 5.01 K/uL (1.40-6.50); Neutrophils % (auto) 57.4 %; Platelet Count 221 K/uL (130-400); RDW Coefficient of Variation 13.2 % (11.5-14.5); RDW Standard Deviation 43.8 fL (36.4-46.3); Red Blood Count 4.21 M/uL (4.20-5.40); White Blood Count 8.73 K/ul (4.8-10.8)
[2023-10-04] MEDS: guaiFENesin 600 MG TABCR PO SCH ×2 (08:21→20:02)
[2023-10-04] MEDS: busPIRone 15 MG TAB PO SCH ×3 (08:21→20:00)
[2023-10-04] MEDS: PANCREAZE (LIPASE 10,500U) CAP PO SCH ×3 (08:22→19:54)
[2023-10-04] MEDS: RIVAROXABAN 20 MG TAB PO SCH (08:22)
[2023-10-04] MEDS: BENZTROPINE MESYLATE 0.5 MG TAB PO SCH ×2 (08:22→20:00)
[2023-10-04] MEDS: ESCITALOPRAM OXALATE 20 MG TAB PO SCH (08:22)
[2023-10-04] MEDS: LORATADINE 10 MG TAB PO SCH (08:22)
[2023-10-04 08:35] LABS: BUN Creatinine Ratio 10.4 (10-20); Calcium 8.5 mg/dl (8.6-10.3); Creatinine Clr Calc Pharmacy 93.2 ml/min; Est GFR (African American) 106.2 ml/min; Est GFR (Non-African American) 91.6 ml/min; Magnesium 1.8 mg/dl (1.7-2.4); Potassium 4.3 mmol/L (3.5-5.1)
[2023-10-04] MEDS: ACETAMINOPHEN 325 MG TAB PO PRN (10:28)
[2023-10-04] MEDS: CHOLESTYRAMINE LIGHT 4 GM PKT PO SCH (11:28)
[2023-10-04] MEDS ORDERED: SODIUM CHLORIDE 0.9% 1,000 ML IV SCH (19:30)
[2023-10-04] MEDS ORDERED: methylPREDNISolone 40 MG in SYRINGE 0 ML IV STA (19:34)
[2023-10-04] MEDS: QUEtiapine FUMARATE 200 MG TAB PO SCH (20:04)
[2023-10-04] MEDS: rOPINIRole HCL 0.25 MG TABLET PO SCH (20:04)
[2023-10-04] MEDS: DAPTOmycin 275 MG in SYRINGE 0 ML IV SCH (21:20)
[2023-10-04] MEDS: DOXYCYCLINE HYCLATE 100 MG CAP PO SCH (21:20)
[2023-10-04] MEDS: oxyCODONE HCL IR 5 MG TAB (IMMEDIATE RELEASE) PO PRN (21:55)
[2023-10-05] MEDS: CEFEPIME 2,000 MG in SYRINGE 0 ML IV SCH ×3 (05:29→21:11)
[2023-10-05 06:27] LABS: Basophils # (auto) 0.04 K/uL (0.00-0.20); Basophils % (auto) 0.6 %; Eosinophils # (auto) 0.01 K/uL (0.00-0.50); Eosinophils % (auto) 0.2 %; Hematocrit (blood only) 37.1 % (37.0-47.0); Hemoglobin 12.7 g/dl (12.0-16.0); Immature Granulocytes # (auto) 0.17 K/uL (0.01-0.20); Immature Granulocytes % (auto) 2.7 %; Lymphocytes # (auto) 1.31 K/uL (1.20-3.40); Lymphocytes % (auto) 21.2 %; Mean Corpuscular Hemoglobin 30.5 pg (25.0-34.0); Mean Corpuscular Hgb Conc 34.2 g/dL (32.0-36.0); Mean Corpuscular Volume 89.2 fL (80.0-100.0); Mean Platelet Volume 9.2 fL (9.4-12.4); Monocytes # (auto) 0.24 K/uL (0.11-0.59); Monocytes % (auto) 3.9 %; Neutrophils # (auto) 4.42 K/uL (1.40-6.50); Neutrophils % (auto) 71.4 %; Platelet Count 221 K/uL (130-400); RDW Standard Deviation 42.5 fL (36.4-46.3); Red Blood Count 4.16 M/uL (4.20-5.40); White Blood Count 6.19 K/ul (4.8-10.8)
[2023-10-05] MEDS: ALBUT/IPRATROP 3MG/0.5MG NEB 3 ML VIAL NEB SCH ×4 (07:21→20:00)
[2023-10-05 07:25] LABS: Magnesium 1.7 mg/dl (1.7-2.4); Potassium 4.6 mmol/L (3.5-5.1)
[2023-10-05 07:31] LABS: BUN Creatinine Ratio 10.9 (10-20); Creatinine Clr Calc Pharmacy 96.6 ml/min; Est GFR (African American) 107.8 ml/min
[2023-10-05] MEDS: RIVAROXABAN 20 MG TAB PO SCH (08:53)
[2023-10-05] MEDS: DOXYCYCLINE HYCLATE 100 MG CAP PO SCH ×2 (08:53→21:14)
[2023-10-05] MEDS: methylPREDNISolone 40 MG in SYRINGE 0 ML IV SCH (08:53)
[2023-10-05] MEDS: PANTOprazole 40 MG TAB PO SCH (08:53)
[2023-10-05] MEDS: PANCREAZE (LIPASE 10,500U) CAP PO SCH ×3 (08:53→17:03)
[2023-10-05] MEDS: busPIRone 15 MG TAB PO SCH ×3 (08:53→21:03)
[2023-10-05] MEDS: BENZTROPINE MESYLATE 0.5 MG TAB PO SCH ×2 (08:53→21:03)
[2023-10-05] MEDS: ESCITALOPRAM OXALATE 20 MG TAB PO SCH (08:53)
[2023-10-05] MEDS: GABAPENTIN 100 MG CAP PO SCH ×3 (08:53→21:04)
[2023-10-05] MEDS: guaiFENesin 600 MG TABCR PO SCH ×2 (08:53→21:02)
[2023-10-05] MEDS: LORATADINE 10 MG TAB PO SCH (08:53)
--- NOTE | 2023-10-05 09:20 | Hospitalist Progress Note ---
Date of Service October 05, 2023 Assessment & Plan (1) COPD exacerbation: Plan: Acute bronchitis Viral bronchitis (enterorhinovirus) Possible COPD exacerbation says smokes more than 2packs a day b/l ronchi on exam-getting better cough and sob improving continue iv solumderol, nebs and po doxycycline needs inhalers and two step on discharge needs pfts as out patient Hypotension\ Possible sepsis: Transient hypotension possible from diarrhea and poor oral intake improved lactic acid normalized Empirically on cefepime and daptomycin cultures no growth so far will d/c daptomycin . Diarrheal illness secondary to viral illness (acute on chronic diarrhea ) c diff negative diarrhea improved. Possible uti on cefepime will follow cultures DM 2 on oral medications, recent hemoglobin A1c of 6.7 last July 2023 holding metformin. chronic pain schizophrenia/anxiety/mood disorder, continue home meds. ongoing tobacco abuse says smokes more than 2packs a day counselling. Hx of PE on Xarelto. Dvt px on Xarelto. Disposition possible d/c in 1-2 days. Admission and Anticipated Discharge Date Admission Date: October 04, 2023 Subjective Resting comfortably sob improved seems cough improving no headache diarrhea improved tolerating regular diet afebrile Review of Systems Review of Systems: All systems reviewed & are unremarkable except as noted in HPI & below Physical Exam Physical Exam: General- Not in distress Head- atraumatic Neck- supple, no JVD. Lungs- clear to auscultation mild b/l ronchi Heart- regular rhythm; no murmur, no gallop. Abdomen- normal bowel sounds, soft, nontender, no distension. Extremities- no pretibial edema, no erythema seen. Neuro- alert, oriented x 3; no facial palsy; no dysarthria; moves extremities. Skin- warm & dry Results & Data Results & Data Vital Signs (Past 12 Hours) Vital Signs Temp Pulse Pulse Pulse Resp BP Pulse Ox 10/05/23 09:03 10/05/23 07:39 36.5 C 84 18 132/83 95 10/05/23 07:22 88 10/05/23 07:22 86 18 93 10/05/23 02:41 36.9 C 98 H 18 134/80 93 10/05/23 02:00 10/04/23 23:03 91 H 10/04/23 23:00 37 C 84 18 122/81 93 O2 Del Method O2 Del Method O2 Flow Rate 10/05/23 09:03 Room Air 10/05/23 07:39 Room Air 10/05/23 07:22 10/05/23 07:22 Room Air 10/05/23 02:41 Nasal Cannula 10/05/23 02:00 Nasal Cannula 2 10/04/23 23:03 10/04/23 23:00 Nasal Cannula Diagnostic Findings Laboratory Results WBC 6.19 K/ul (4.8-10.8) 10/05/23 06:06 RBC 4.16 M/uL (4.20-5.40) L 10/05/23 06:06 Hgb 12.7 g/dl (12.0-16.0) 10/05/23 06:06 Hct 37.1 % (37.0-47.0) 10/05/23 06:06 MCV 89.2 fL (80.0-100.0) 10/05/23 06:06 MCH 30.5 pg (25.0-34.0) 10/05/23 06:06 MCHC 34.2 g/dL (32.0-36.0) 10/05/23 06:06 RDW Std Deviation 42.5 fL (36.4-46.3) 10/05/23 06:06 RDW Coeff of [place] 13.0 % (11.5-14.5) 10/05/23 06:06 Plt Count 221 K/uL (130-400) 10/05/23 06:06 MPV 9.2 fL (9.4-12.4) L 10/05/23 06:06 Immature Gran % (Auto) 2.7 % 10/05/23 06:06 Neut % (Auto) 71.4 % 10/05/23 06:06 Lymph % (Auto) 21.2 % 10/05/23 06:06 Moca % (Auto) 3.9 % 10/05/23 06:06 Eos % (Auto) 0.2 % 10/05/23 06:06 Baso % (Auto) 0.6 % 10/05/23 06:06 Neut # (Auto) 4.42 K/uL (1.40-6.50) 10/05/23 06:06 Lymph # (Auto) 1.31 K/uL (1.20-3.40) 10/05/23 06:06 Moca # (Auto) 0.24 K/uL (0.11-0.59) 10/05/23 06:06 Eos # (Auto) 0.01 K/uL (0.00-0.50) 10/05/23 06:06 Baso # (Auto) 0.04 K/uL (0.00-0.20) 10/05/23 06:06 Immature Gran # (Auto) 0.17 K/uL (0.01-0.20) 10/05/23 06:06 Sodium 140 mmol/L (136-145) 10/05/23 06:06 Potassium 4.6 mmol/L (3.5-5.1) 10/05/23 06:06 Chloride 109 mmol/L (98-107) H 10/05/23 06:06 Carbon Dioxide 26 mmol/L (21-32) 10/05/23 06:06 Anion Gap 5 (3-11) 10/05/23 06:06 BUN 7 mg/dl (6-23) 10/05/23 06:06 Creatinine 0.64 mg/dl (0.6-1.2) 10/05/23 06:06 Est Cr Clr Drug Dosing 96.6 ml/min 10/05/23 06:06 Est GFR ( Amer) 107.8 ml/min 10/05/23 06:06 Est GFR (Non-Af Amer) 93.0 ml/min 10/05/23 06:06 BUN/Creatinine Ratio 10.9 (10-20) 10/05/23 06:06 Glucose 206 mg/dl (70-99(Fasting)) H 10/05/23 06:06 POC Glucose 178 mg/dl (70-99) H 10/05/23 07:17 Lactate 1.6 mmol/L (0.4-2.0) 10/04/23 00:32 Calcium 9.0 mg/dl (8.6-10.3) 10/05/23 06:06 Magnesium 1.7 mg/dl (1.7-2.4) 10/05/23 06:06 Total Bilirubin 0.4 mg/dl (0.2-1.0) 10/03/23 17:40 AST 24 U/L (13-39) 10/03/23 17:40 ALT 14 U/L (7-52) 10/03/23 17:40 Alkaline Phosphatase 94 U/L (34-104) 10/03/23 17:40 Troponin I High Sens 3.6 pg/ml (0-14) 10/03/23 17:40 Total Protein 7.7 gm/dl (6.0-8.3) 10/03/23 17:40 Albumin 3.9 gm/dl (3.4-5.0) 10/03/23 17:40 Globulin 3.8 gm/dl (2.5-4.0) 10/03/23 17:40 Albumin/Globulin Ratio 1.0 (0.9-2) 10/03/23 17:40 Lipase 19 U/L (11-82) 10/03/23 17:40 Procalcitonin < 0.05 ng/ml (0-0.5) 10/03/23 17:40 Urine Color Yellow 10/03/23 18:31 Urine Appearance Cloudy (Clear) A 10/03/23 18:31 Urine pH 6.0 (4.5-7.5) 10/03/23 18:31 Ur Specific [place] 1.015 (1.000-1.030) 10/03/23 18:31 Urine Protein Negative (Negative) 10/03/23 18:31 Urine Glucose (UA) Negative (Negative) 10/03/23 18:31 Urine Ketones Trace (Negative) H 10/03/23 18:31 Urine Blood Negative (Negative) 10/03/23 18:31 Urine Nitrite Negative (Negative) 10/03/23 18:31 Urine Bilirubin Negative (Negative) 10/03/23 18:31 Urine Urobilinogen Negative (Negative) 10/03/23 18:31 Ur Leukocyte Esterase 2+ (Negative) H 10/03/23 18:31 Urine WBC (Auto) 1-5 /hpf (0-5) 10/03/23 18:31 Urine RBC (Auto) 0-4 /hpf (0-4) 10/03/23 18:31 U Hyaline Cast (Auto) 1-5 /lpf (0-5) 10/03/23 18:31 U Epithel Cells (Auto) >30 /lpf (0-5) H 10/03/23 18:31 Urine Bacteria (Auto) Negative (Negative) 10/03/23 18:31 Urine Yeast Not Reportable 10/03/23 18:31 Stl C. diff Tox B Gene Negative Cdiff Gene (Neg) 10/03/23 23:53 Valproic Acid 54 mcg/ml (50-100) 10/03/23 18:16 Adenovirus (PCR) Not Detected (NotDetected) 10/03/23 17:40 B. pertussis DNA (PCR) Not Detected (NotDetected) 10/03/23 17:40 B.parapertussis DNA PCR Not Detected (NotDetected) 10/03/23 17:40 C. pneumoniae DNA (PCR) Not Detected (NotDetected) 10/03/23 17:40 Coronavirus OC43 (PCR) Not Detected (NotDetected) 10/03/23 17:40 Coronavirus HKU1 (PCR) Not Detected (NotDetected) 10/03/23 17:40 Coronavirus 229E (PCR) Not Detected (NotDetected) 10/03/23 17:40 SARS-CoV-2 (PCR) Not Detected (NotDetected) 10/03/23 17:40 Coronavirus NL63 (PCR) Not Detected (NotDetected) 10/03/23 17:40 Human Metapneumovir PCR Not Detected (NotDetected) 10/03/23 17:40 Influenza Type A (PCR) Not Detected (NotDetected) 10/03/23 17:40 Influenza Type B (PCR) Not Detected (NotDetected) 10/03/23 17:40 M. pneumoniae (PCR) Not Detected (NotDetected) 10/03/23 17:40 Parainfluenza 1 (PCR) Not Detected (NotDetected) 10/03/23 17:40 Parainfluenza 2 (PCR) Not Detected (NotDetected) 10/03/23 17:40 Parainfluenza 3 (PCR) Not Detected (NotDetected) 10/03/23 17:40 Parainfluenza 4 (PCR) Not Detected (NotDetected) 10/03/23 17:40 RSV (PCR) Not Detected (NotDetected) 10/03/23 17:40 Entero/Rhino (PCR) DETECTED (NotDetected) A* 10/03/23 17:40 Impressions Chest X-Ray 10/03/23 17:16 XR chest 1V portable CLINICAL HISTORY: Vomiting. COMPARISON STUDY: Chest radiograph September 12, 2023. FINDINGS: Lung volumes are normal. Lungs are clear. There is no pneumothorax or pleural effusion. Cardiac size is stable. Mediastinal contours are normal. There is no evidence for pulmonary edema. IMPRESSION: No acute cardiopulmonary findings. No significant change in appearance of the chest. ACT 112: Negative or not required by law. Electronically signed by: Bryn East M.D. 10/03/2023 6:53 PM Abdomen/Pelvis CT 10/03/23 18:04 CT OF THE ABDOMEN AND PELVIS WITH CONTRAST CLINICAL HISTORY: Abdominal pain. Sepsis. COMPARISON STUDY: CT of the abdomen and pelvis August 13, 2023. KUB September 18, 2023. TECHNIQUE: Following IV administration of 90 mL of Optiray, axial images of the abdomen and pelvis were obtained from the lung bases to the proximal femurs. Images were reviewed in the axial, sagittal, and coronal planes. IV contrast was administered without complication. Automated exposure control was utilized for the study. A dose lowering technique was utilized adhering to the principles of ALARA. CT DOSE: 1408.89 mGy.cm FINDINGS: No pneumatosis, free air or portal venous gas is present. Mild dilatation of the common bile duct is unchanged and likely related to cholecystectomy. There is hepatic steatosis. No hepatic lesions are present. Spleen, adrenal glands and kidneys are unremarkable with the exception of a few subcentimeter renal lesions which are too small to characterize. There is no hydronephrosis. The caliber and wall thickness of small and large bowel are normal. There is no ascites or lymphadenopathy. No fluid collections are identified. The appendix is not visualized but there is no right lower quadrant inflammation. No acute fractures are identified within the visualized skeletal structures. IMPRESSION: 1. No acute process within the abdomen or pelvis. 2. No bowel obstruction. No bowel wall thickening. 3. Hepatic steatosis. ACT 112: Negative or not required by law. Electronically signed by: Bryn East M.D. 10/03/2023 9:[address] 10/03/23 22:09 Exam(s): CT HEAD Without Contrast EXAM: CT Head Without Intravenous Contrast CLINICAL HISTORY: Reason for exam: segun, everardo. TECHNIQUE: Axial computed tomography images of the head/brain without intravenous contrast. CTDI is 36.18 mGy and DLP is 625.8 mGy-cm. Automated exposure control was utilized for the study. A dose lowering technique was utilized adhering to the principles of ALARA. COMPARISON: No relevant prior studies available. FINDINGS: No acute intracranial hemorrhage. No midline shift or mass effect. The territorial mix-white matter differentiation is maintained throughout. Age-related cerebral volume loss. Periventricular and subcortical white matter hypoattenuation, consistent with chronic microangiopathy. The visualized orbits appear grossly unremarkable. The calvarium is intact. The visualized paranasal sinuses and mastoid air cells are grossly clear. IMPRESSION: No acute intracranial hemorrhage, midline shift, or mass effect. Electronically signed by: Jose Edouard MD 10/04/23 00:54 AM
[2023-10-05] MEDS: INSULIN ASPART PER UNIT CHARGE SC SCH ×4 (09:45→20:59)
[2023-10-05] MEDS: CHOLESTYRAMINE LIGHT 4 GM PKT PO SCH (11:16)
[2023-10-05] MEDS: ADVANCED PROBIOTIC 1250 MG CAPSULE PO SCH (12:15)
[2023-10-05] MEDS: DIVALPROEX EXTENDED RELEASE 500 MG TAB PO SCH (21:03)
[2023-10-05] MEDS: rOPINIRole HCL 0.25 MG TABLET PO SCH (21:05)
[2023-10-05] MEDS: QUEtiapine FUMARATE 200 MG TAB PO SCH (21:05)
[2023-10-05] MEDS: DAPTOmycin 275 MG in SYRINGE 0 ML IV SCH (21:12)
[2023-10-05] MEDS: ACETAMINOPHEN 325 MG TAB PO PRN (21:38)
[2023-10-05] MEDS: oxyCODONE HCL IR 5 MG TAB (IMMEDIATE RELEASE) PO PRN (23:21)
[2023-10-06] MEDS: CEFEPIME 2,000 MG in SYRINGE 0 ML IV SCH (06:35)
[2023-10-06] MEDS: ALBUT/IPRATROP 3MG/0.5MG NEB 3 ML VIAL NEB SCH ×3 (07:17→15:02)
[2023-10-06] MEDS: INSULIN ASPART PER UNIT CHARGE SC SCH ×2 (08:42→12:08)
[2023-10-06] MEDS: busPIRone 15 MG TAB PO SCH ×2 (08:43→13:05)
[2023-10-06] MEDS: guaiFENesin 600 MG TABCR PO SCH (08:43)
[2023-10-06] MEDS: ESCITALOPRAM OXALATE 20 MG TAB PO SCH (08:44)
[2023-10-06] MEDS: RIVAROXABAN 20 MG TAB PO SCH (08:46)
[2023-10-06] MEDS: ADVANCED PROBIOTIC 1250 MG CAPSULE PO SCH (08:46)
[2023-10-06] MEDS: LORATADINE 10 MG TAB PO SCH (08:46)
[2023-10-06] MEDS: PANTOprazole 40 MG TAB PO SCH (08:46)
[2023-10-06] MEDS: GABAPENTIN 100 MG CAP PO SCH (08:47)
[2023-10-06] MEDS: PANCREAZE (LIPASE 10,500U) CAP PO SCH ×2 (08:48→11:34)
[2023-10-06] MEDS: BENZTROPINE MESYLATE 0.5 MG TAB PO SCH (08:48)
[2023-10-06] MEDS: DOXYCYCLINE HYCLATE 100 MG CAP PO SCH (10:21)
[2023-10-06] MEDS: CHOLESTYRAMINE LIGHT 4 GM PKT PO SCH (10:21)
[2023-10-06] MEDS: methylPREDNISolone 40 MG in SYRINGE 0 ML IV SCH (10:23)
--- NOTE | 2023-10-06 14:33 | Discharge Summary ---
Date of Service October 06, 2023 Admission HPI Per Admitting Provider History obtained from patient and records. Medical history significant for history of PE on Xarelto, DM 2 on oral medications, GERD, IBS, chronic pain, schizophrenia/anxiety/mood disorder, ongoing tobacco abuse. Last confinement June 2023 for E. coli UTI. Recent ER visit 2 weeks ago for nausea vomiting symptoms after consuming large amount of ravioli and candy bars. Patient discharged from the ER. GI symptoms resolved at home. Few days ago, patient noted cough symptoms, patient unable to expectorate. Denies aspiration. Patient has received COVID-19 vaccination. No chest pain, no fever, no chills. Decreased appetite. Today she had achy abdominal pain with nausea and emesis. Diarrhea worse than usual. Achy headache without bleeding complaints. Denies dysuria. Increasing generalized weakness. SBP 90s upon arrival at the ER. NSS bolus and IV ceftriaxone administered at the ER. Medical History as above Surgical History : section, cholecystectomy, ROLANDO Family History : Bowel cancer, DM Personal/Social history : 1 pack daily, EtOH intake, disabled, lives with daughter Admission Exam Per Admitting Provider GENERAL: Comfortable, pleasant, morbidly obese, looks older than stated age, no respiratory distress SKIN: Normal color, warm HEENT: [place] palpebral conjunctivae, no ptosis, dry buccal mucosa, edentulous NECK : Supple, short neck, no tenderness CHEST : Decreased breath sounds, no tenderness HEART : RRR, no obvious murmurs ABDOMEN: Some distention, minimal hypogastric tenderness EXTREMITIES : Minimal LE swelling/tenderness, no other conspicuous deformities noted NEUROLOGIC : Coherent, no facial asymmetry, gait and stance not assessed Principal Diagnosis COPD exacerbation Rhinovirus infection Discharge Exam Constitutional: WD/WN, vitals as above, NAD, sitting up in bed, pleasant, conversing easily Respiratory: normal respiratory effort, lungs clear to auscultation, no wheeze, rales, rhonchi. Normal insp/exp effort, no accessory muscle use Cardiovascular: RRR, no murmur, no edema Vessels: no JVD or carotid bruit Chest: normal inspection of chest Abdomen: normal bowel sounds, soft, nontender, no hepatosplenomegaly Musculoskeletal: no cyanosis or clubbing, extremities motor strength 5/5 Skin: no rashes, warm and dry normal turgor Neurologic: PERRL, EOMI, accommodation nl, no face palsy, no dysarthria CN's II- XI intact bilaterally and moves all extremities Psychiatric: A+Ox3, euthymic affect Discharge Data Allergies Allergy/AdvReac Type Severity Reaction Status Date / Time bee venom protein (honey bee) Allergy Severe Anaphylaxis Unverified 10/03/23 20:14 egg AdvReac Severe Vomiting Verified 10/03/23 20:14 Penicillins AdvReac Severe VOMITING/IT Verified 10/03/23 20:14 DAVON Consultations 10/03/23 20:24 ED Decision to Admit Stat Ordered Studies 10/03/23 18:04 CT abd pelvis IV con only Stat 10/03/23 22:09 CT head/brain wo con Stat Hospital Course (1) COPD exacerbation: Acute bronchitis Viral bronchitis (enterorhinovirus) Possible COPD exacerbation Patient presented with decreased p.o. output, vomiting. She was found to have rhinovirus positive on respiratory viral panel Chest x-ray was negative for any infiltrate Admitted for concern of COPD exacerbation. Patient improved throughout the hospitalization with IV steroid, [id number] DuoNebs and antibiotics Infectious workup was negative otherwise. At discharge, patient was discharged on antibiotics and oral steroids. Patient to follow-up with primary care doctor with pulmonology referral Diarrheal illness secondary to viral illness (acute on chronic diarrhea ) c diff negative diarrhea improved at discharge. Please note the above document was generated using voice recognition software. It may contain grammatical, syntax or spelling errors. Any formal questions or concerns about the content, text or information contained within the body of this dictation should be directly addressed to the provider for clarification Total Time Total Time Spent Total Time Spent (In Minutes): 45 Total Time Includes: Examination of the Patient, Discharge Planning, Medication Reconciliation, Communication With Other Providers and Other Discharge Plan Discharge Items Patient Disposition: Home - Self-Care Reason For Visit: TRANSIENT HYPOTENSION, COMP UTI Discharge Diagnosis: COPD exacerbation Activity: Resume your previous activity Non-emergency contact: Primary Care Provider Call non-emergency contact if: you have any medication questions and your symptoms worsen Follow-up/Referrals: Desmond Villasenor MD [Primary Care Provider] - Diet: Regular Addtl Attending Provider Instructions: You were admitted to the hospital due to COPD exacerbation. The reason for for it is viral infection due to rhinovirus. You were prescribed following medication to complete the treatment course: 1) Doxycycline 100 mg twice a day for 5 days 2) Prednisone 40 mg once a day for 4 days An appointment will be set up with your primary care doctor for sometime next week. You will need pulmonology referral for management of COPD. Pending Studies at Discharge: No Stand-Alone Forms: [facility], Smoking Cessation Medications and DC Order Prescriptions: New doxycycline hyclate 100 mg Capsule 100 mg PO BID@1000,2200 5 Days Qty: 10 0RF prednisone 20 mg tablet 40 mg PO DAILY 4 Days Qty: 8 0RF Continued buspirone 15 mg tablet 15 mg PO TID Creon 12,000-38,000 -60,000 unit capsule,delayed release(DR/EC) 2 cap PO TID Xarelto 20 mg tablet 20 mg PO QAM ropinirole 0.5 mg tablet 0.5 mg PO HS escitalopram oxalate [Lexapro] 20 mg tablet 20 mg PO QAM benztropine 0.5 mg tablet 0.5 mg PO BID quetiapine 400 mg tablet 400 mg PO HS gabapentin 100 mg capsule 200 mg PO HS pantoprazole [Protonix] 40 mg tablet,delayed release (DR/EC) 40 mg PO QAM metformin 500 mg tablet extended release 24 hr 500 mg PO BID cholestyramine (with sugar) 4 gram powder See Rx Instructions .ROUTE .COMPLEX Rx Instructions: DISSOLVE ONE AND ONE-HALF scoops into EIGHT ounces of JUICE OR water EVERY DAY divalproex 500 mg tablet extended release 24 hr 1,500 mg PO HS meloxicam 15 mg tablet 15 mg PO UD Rx Instructions: not found in prepackaged meds but shows up in surescripts...pt not sure if she takes it or not clonazepam 1 mg tablet 1 mg PO TID PRN (Reason: Anxiety) gabapentin 100 mg capsule 100 mg PO [id number] Rx Instructions: TAKE 100 MG QAM & NOON, THEN 200 MG AT HS. loratadine [Claritin] 10 mg Tablet 10 mg PO DAILY Discharge Orders: Discharge Order (Routine); Ordered 10/06/23 Ordered By: Mynor Maya/Other Patient Handouts: What Is COPD, Urinary Tract Infections in Women, Treatment for COPD, When to Use Antibiotics Admission Data Admit Date/Time: 10/04/23 01:33 Attending Provider: Devkota,Mynor Admit Provider: Lionel Garduno Primary Care Provider: Desmond Villasenor Other Providers: Lionel Garduno; Marco Antonio Tabares Other Interventions: Discharge Summary Assessment (RN) Last Done: 10/06/23 13:13
--- NOTE | 2023-10-06 23:09 | Electrocardiogram Report ---
Test Reason : Blood Pressure : / mmHG Vent. Rate : 107 BPM Atrial Rate : 107 BPM P-R Int : 148 ms QRS Dur : 126 ms QT Int : 386 ms P-R-T Axes : 056 130 022 degrees QTc Int : 515 ms Sinus tachycardia Right bundle branch block Abnormal ECG When compared with ECG of 23-JUL-2023 16:53, No significant change was found Confirmed by Cruzito Martinez ([id number]) on 10/06/2023 11:09:43 PM Referred By: REFERRED SELF Confirmed By:Cruzito Martinez
== END 2023-10-06 15:27 | disposition home or self-care (01) | DRG 202 ==
LOC: ED 17:06 → SUATTDRO 10-04 01:33 → EDINP 10-04 01:33 → 2S 10-04 01:52

== ENCOUNTER 2023-10-22 22:30 | Inpatient (IN) ==
[2023-10-22 23:58] LABS: Appearance Urine Clear (Clear); Bilirubin Urine Negative (Negative); Blood Urine Negative (Negative); Color Urine Yellow; Glucose Urine UA 2+ (Negative); Ketones Urine 1+ (Negative); Leukocyte Esterase Urine Negative (Negative); Nitrite Urine Negative (Negative); Protein Urine Negative (Negative); Specific Gravity Urine 1.016 (1.000-1.030); Urobilinogen Urine Negative (Negative); pH Urine 5.5 (4.5-7.5)
[2023-10-23] MEDS ORDERED: ONDANSETRON INJ 2 MG/ML 2 ML VIAL IV STA (00:04)
[2023-10-23] MEDS ORDERED: SODIUM CHLORIDE 0.9% 500 ML IV ONE (00:04)
[2023-10-23 00:17] LABS: Albumin Globulin Ratio 1.2 (0.9-2); Albumin Level 3.7 gm/dl (3.4-5.0); BUN Creatinine Ratio 15.5 (10-20); Basophils # (auto) 0.05 K/uL (0.00-0.20); Basophils % (auto) 0.3 %; Bilirubin,Total 0.5 mg/dl (0.2-1.0); Calcium 9.8 mg/dl (8.6-10.3); Creatinine Clr Calc Pharmacy 88.2 ml/min; Eosinophils # (auto) 0.17 K/uL (0.00-0.50); Eosinophils % (auto) 1.1 %; Est GFR (African American) 102.9 ml/min; Est GFR (Non-African American) 88.8 ml/min; Globulin 3.2 gm/dl (2.5-4.0); Hematocrit (blood only) 44.2 % (37.0-47.0); Hemoglobin 15.3 g/dl (12.0-16.0); Immature Granulocytes # (auto) 0.13 K/uL (0.01-0.20); Immature Granulocytes % (auto) 0.8 %; Lymphocytes # (auto) 1.64 K/uL (1.20-3.40); Lymphocytes % (auto) 10.6 %; Mean Corpuscular Hemoglobin 30.2 pg (25.0-34.0); Mean Corpuscular Hgb Conc 34.6 g/dL (32.0-36.0); Mean Corpuscular Volume 87.4 fL (80.0-100.0); Mean Platelet Volume 9.9 fL (9.4-12.4); Monocytes # (auto) 0.61 K/uL (0.11-0.59); Monocytes % (auto) 3.9 %; Neutrophils # (auto) 12.85 K/uL (1.40-6.50); Neutrophils % (auto) 83.3 %; Platelet Count 258 K/uL (130-400); Potassium 4.9 mmol/L (3.5-5.1); RDW Standard Deviation 40.8 fL (36.4-46.3); Red Blood Count 5.06 M/uL (4.20-5.40); Total Protein 6.9 gm/dl (6.0-8.3); White Blood Count 15.45 K/ul (4.8-10.8)
[2023-10-23] MEDS ORDERED: PROCHLORPERAZINE 1 ML IV ONE ×2 (00:45→03:15)
[2023-10-23] MEDS ORDERED: PROCHLORPERAZINE 5 MG/ML 2 ML VIAL ONE (00:46)
[2023-10-23 02:28] LABS: Influenza A virus by PCR Negative (Neg); Influenza B virus by PCR Negative (Neg); RSV by PCR Negative (Neg); SARS CoV2 RNA(COVID-19) Ceph NEGATIVE (Negative)
[2023-10-23] MEDS: SODIUM CHLORIDE 0.9% 500 ML IV SCH ×2 (03:51→07:23)
--- NOTE | 2023-10-23 05:25 | History & Physical Report ---
Date of Service October 23, 2023 Assessment & Plan (1) Nausea & vomiting: Plan: 68-year-old female past med history significant for type 2 diabetes, history of GERD, irritable bowel syndrome, seizure affective disorder, panic disorder, tobacco use disorder, history of pulmonary embolism who lives with her daughter ambulates with walker presents with nausea and vomiting and feeling weak. Nausea and vomiting Abdominal pain Possible gastroenteritis Will get CT abdomen pelvis IV fluids Clear liquid diet for now IV antiemetics as needed Monitor in hospital Hyponatremia Sodium 128 Possible from above Getting fluids Follow repeat labs If worsening will consult nephrology Type 2 diabetes Hold metformin Insulin sliding scale Will monitor Schizoaffective disorder On Seroquel, Depakote and benztropine and Lexapro Anxiety On buspirone On Klonopin as needed History of PE On Xarelto Tobacco abuse Needs counseling GERD On Protonix DVT prophylaxis On Xarelto Disposition Med/daily Full code History of Present Illness Chief Complaint: Nausea vomiting and abdominal pain Primary Care Provider: Desmond Villasenor MD 68-year-old female past med history significant for type 2 diabetes, history of GERD, irritable bowel syndrome, seizure affective disorder, panic disorder, tobacco use disorder, history of pulmonary embolism who lives with her daughter ambulates with walker presents with nausea and vomiting and feeling weak. She states 3 episodes of vomiting today. She is constipated. Denies any fevers. No chest pain. States she is always short of breath because she smokes. Has some cough. No headache. No blurred visions. No runny nose. Hemodynamically stable. Past medical history. As mentioned above. Past surgical history. . Cholecystectomy. Total hysterectomy. Family history. Mother had cancer. Diabetes. Uncle had bowel cancer. Sister has diabetes. Social history. Lives with her daughter. Smokes 1 pack a day for last 53 years. No alcohol use. Smokes marijuana as per epic Allergies Allergy/AdvReac Type Severity Reaction Status Date / Time bee venom protein (honey bee) Allergy Severe Anaphylaxis Verified 10/22/23 23:32 egg AdvReac Severe Vomiting Verified 10/22/23 23:32 Penicillins AdvReac Severe VOMITING/IT Verified 10/22/23 23:32 DAVON Home Medications Medication Instructions Recorded Confirmed Type benztropine 0.5 mg tablet 0.5 mg PO BID 10/23/23 10/23/23 History buspirone 15 mg tablet 15 mg PO TID 10/23/23 10/23/23 History cholestyramine (with sugar) 4 gram 4 ea PO DAILY 10/23/23 10/23/23 History oral powder clonazepam 1 mg tablet 1 mg PO TID PRN Anxiety 10/23/23 10/23/23 History divalproex 500 mg tablet,extended 1,500 mg PO HS 10/23/23 10/23/23 History release 24 hr escitalopram oxalate 20 mg tablet 20 mg PO DAILY 10/23/23 10/23/23 History ferrous sulfate 325 mg (65 mg 325 mg PO Q2D 10/23/23 10/23/23 History iron) tablet (FeroSul) gabapentin 100 mg capsule 100 mg PO UD 10/23/23 10/23/23 History lndtig-dadisvlb-ospxihc 1 cap PO AC 10/23/23 10/23/23 History 12,000-38,000-60,000 unit capsule,delayed rel (Creon) meloxicam 15 mg tablet 15 mg PO DAILY 10/23/23 10/23/23 History metformin 500 mg tablet,extended 500 mg PO BID 10/23/23 10/23/23 History release 24 hr pantoprazole 40 mg tablet,delayed 40 mg PO DAILY 10/23/23 10/23/23 History release quetiapine 400 mg tablet 400 mg PO HS 10/23/23 10/23/23 History rivaroxaban 20 mg tablet (Xarelto) 20 mg PO DAILY 10/23/23 10/23/23 History Past Med/Surg History Medical History Anemia Anxiety and depression Arthritis Aspiration pneumonia Chronic diarrhea Diabetes Enteritis due to [place] virus Folate deficiency Generalized weakness GERD (gastroesophageal reflux disease) History of pulmonary embolism Hyperparathyroidism Hypothyroid Intractable nausea and vomiting Iron deficiency anemia Irritable bowel syndrome Pulmonary embolism Rectal bleeding Restless leg Schizoaffective disorder Smoking Surgical History History of section x2 History of cholecystectomy History of hysterectomy Family History Mother Diabetes Sister Diabetes Denies family history of Inflammatory bowel disease Social History Smoking Status: Current every day smoker Tobacco Type: Cigarettes Cigarettes Per Day: unknown; Second Hand Exposure: Yes; Do You Dip or Chew Tobacco: No; Hx Alcohol Use: No Hx Substance Use: No Preferred Language: Colombian Communication Ability: Effective Breaker Hand Required: No Beliefs That Will Affect Care: None marital status: Current Living Situation: Family Current Living Situation Comment: Lives with daughter. How many Children do You have: 2 Feels Safe at Home: Yes Assistive Devices: Walker and Wheelchair Review of Systems Review of Systems: All systems reviewed & are unremarkable except as noted in HPI & below Physical Exam Physical Exam: General- Not in distress. Head- atraumatic Eyes- PERRL. ENT- oropharynx clear Neck- supple, no JVD. Lungs- clear to auscultation no wheezing or crackles. Heart- regular rhythm; no murmur, no gallop. Abdomen- normal bowel sounds, soft, mild diffuse tenderness, no distension. Extremities- lower extremity edema present. No erythema seen. Neuro- alert, oriented x 3; PERRL, I; no facial palsy; no dysarthria; moves extremities. Skin- warm & dry Results & Data Results & Data Vital Signs (Past 12 Hours) Vital Signs Temp Pulse Pulse Resp BP BP Pulse Ox 10/23/23 03:44 117/73 10/23/23 03:44 90 10/23/23 01:30 94 H 18 93 10/23/23 01:30 128/90 10/23/23 01:00 93 H 19 92 10/23/23 01:00 119/92 10/23/23 00:31 98 H 18 111/73 93 10/23/23 00:30 98 H 21 92 10/23/23 00:00 145/75 H 10/23/23 00:00 145/75 H 10/23/23 00:00 145/75 H 10/23/23 00:00 108 H 20 93 10/22/23 23:33 102 H 21 147/79 H 92 10/22/23 23:32 102 H 24 147/79 H 92 10/22/23 23:30 110 H 17 10/22/23 23:12 107 H 10/22/23 23:04 105 H 15 94 10/22/23 22:45 36.8 C 95 H 18 125/84 97 O2 Del Method 10/23/23 03:44 10/23/23 03:44 10/23/23 01:30 12/09/23 01:30 10/23/23 01:00 10/23/23 01:00 10/23/23 00:31 10/23/23 00:30 10/23/23 00:00 10/23/23 00:00 10/23/23 00:00 10/23/23 00:00 10/22/23 23:33 10/22/23 23:32 Room Air 10/22/23 23:30 10/22/23 23:12 10/22/23 23:04 10/22/23 22:45 Room Air Diagnostic Findings Laboratory Results WBC 15.45 K/ul (4.8-10.8) H 10/22/23 23:35 RBC 5.06 M/uL (4.20-5.40) 10/22/23 23:35 Hgb 15.3 g/dl (12.0-16.0) 10/22/23 23:35 Hct 44.2 % (37.0-47.0) 10/22/23 23:35 MCV 87.4 fL (80.0-100.0) 10/22/23 23:35 MCH 30.2 pg (25.0-34.0) 10/22/23 23:35 MCHC 34.6 g/dL (32.0-36.0) 10/22/23 23:35 RDW Std Deviation 40.8 fL (36.4-46.3) 10/22/23 23:35 RDW Coeff of [place] 13.0 % (11.5-14.5) 10/22/23 23:35 Plt Count 258 K/uL (130-400) 10/22/23 23:35 MPV 9.9 fL (9.4-12.4) 10/22/23 23:35 Immature Gran % (Auto) 0.8 % 10/22/23 23:35 Neut % (Auto) 83.3 % 10/22/23 23:35 Lymph % (Auto) 10.6 % 10/22/23 23:35 [place] % (Auto) 3.9 % 10/22/23 23:35 Eos % (Auto) 1.1 % 10/22/23 23:35 Baso % (Auto) 0.3 % 10/22/23 23:35 Neut # (Auto) 12.85 K/uL (1.40-6.50) H 10/22/23 23:35 Lymph # (Auto) 1.64 K/uL (1.20-3.40) 10/22/23 23:35 Hays # (Auto) 0.61 K/uL (0.11-0.59) H 10/22/23 23:35 Eos # (Auto) 0.17 K/uL (0.00-0.50) 10/22/23 23:35 Baso # (Auto) 0.05 K/uL (0.00-0.20) 10/22/23 23:35 Immature Gran # (Auto) 0.13 K/uL (0.01-0.20) 10/22/23 23:35 Sodium 128 mmol/L (136-145) L 10/22/23 23:35 Potassium 4.9 mmol/L (3.5-5.1) 10/22/23 23:35 Chloride 93 mmol/L (98-107) L 10/22/23 23:35 Carbon Dioxide 24 mmol/L (21-32) 10/22/23 23:35 Anion Gap 11 (3-11) 10/22/23 23:35 BUN 11 mg/dl (6-23) 10/22/23 23:35 Creatinine 0.71 mg/dl (0.6-1.2) 10/22/23 23:35 Est Cr Clr Drug Dosing 88.2 ml/min 10/22/23 23:35 Est GFR ( Amer) 102.9 ml/min 10/22/23 23:35 Est GFR (Non-Af Amer) 88.8 ml/min 10/22/23 23:35 BUN/Creatinine Ratio 15.5 (10-20) 10/22/23 23:35 Glucose 211 mg/dl (70-99(Fasting)) H 10/22/23 23:35 Calcium 9.8 mg/dl (8.6-10.3) 10/22/23 23:35 Total Bilirubin 0.5 mg/dl (0.2-1.0) 10/22/23 23:35 AST 108 U/L (13-39) H 10/22/23 23:35 ALT 49 U/L (7-52) 10/22/23 23:35 Alkaline Phosphatase 98 U/L (34-104) 10/22/23 23:35 Troponin I High Sens 5.0 pg/ml (0-14) 10/22/23 23:35 Total Protein 6.9 gm/dl (6.0-8.3) 10/22/23 23:35 Albumin 3.7 gm/dl (3.4-5.0) 10/22/23 23:35 Globulin 3.2 gm/dl (2.5-4.0) 10/22/23 23:35 Albumin/Globulin Ratio 1.2 (0.9-2) 10/22/23 23:35 Lipase 87 U/L (11-82) H 10/22/23 23:35 Urine Color Yellow 10/22/23 23:35 Urine Appearance Clear (Clear) 10/22/23 23:35 Urine pH 5.5 (4.5-7.5) 10/22/23 23:35 Ur Specific Jansen 1.016 (1.000-1.030) 10/22/23 23:35 Urine Protein Negative (Negative) 10/22/23 23:35 Urine Glucose (UA) 2+ (Negative) H 10/22/23 23:35 Urine Ketones 1+ (Negative) H 10/22/23 23:35 Urine Blood Negative (Negative) 10/22/23 23:35 Urine Nitrite Negative (Negative) 10/22/23 23:35 Urine Bilirubin Negative (Negative) 10/22/23 23:35 Urine Urobilinogen Negative (Negative) 10/22/23 23:35 Ur Leukocyte Esterase Negative (Negative) 10/22/23 23:35 Valproic Acid 40 mcg/ml (50-100) L 10/23/23 03:46 SARS-CoV-2 (PCR) NEGATIVE (Negative) 10/23/23 01:28 Influenza Type A (PCR) Negative (Neg) 10/23/23 01:28 Influenza Type B (PCR) Negative (Neg) 10/23/23 01:28 RSV (RT-PCR) Negative (Neg) 10/23/23 01:28 Code Status & VTE Plan VTE Prophylaxis Plan VTE Prophylaxis will be ordered: Yes
--- NOTE | 2023-10-23 06:58 | CT Scan Report ---
CT OF THE ABDOMEN AND PELVIS WITHOUT CONTRAST CLINICAL HISTORY: Abdominal pain, nausea and vomiting. COMPARISON STUDY: CT of the abdomen and pelvis October 03, 2023. TECHNIQUE: Axial images of the abdomen and pelvis were obtained without IV contrast. Images were revi ewed in the axial, sagittal, and coronal planes. Automated exposure control was utilized for the alyssa dy. A dose lowering technique was utilized adhering to the principles of ALARA. FINDINGS: Mild subpleural right lower lobe airspace opacities could reflect a mild infectious process or atelectasis. There is a small hiatal hernia. Evaluation of the abdomen and pelvis is suboptimal o n this unenhanced examination. No pneumatosis, free air or portal venous gas is present. Mild dilatat ion of the common bile duct is unchanged and likely related to cholecystectomy. Spleen, adrenal gland s, kidneys and pancreas are unremarkable. There is no peripancreatic stranding or fluid. No renal, ur eteral or bladder calculi are present. There is no hydronephrosis. There is no evidence for a bowel o bstruction. The appendix is normal. Moderate amount of stool within the colon and rectum is present. Acute fractures are identified within the visualized skeletal structures. IMPRESSION: 1. No urinary calculi or hydronephrosis. 2. No bowel obstruction. Moderate amount of stool within the colon and rectum. Normal appendix. 3. Mild subpleural right lower lobe opacities which could reflect atelectasis or a mild infectious pr ocess. ACT 112: Negative or not required by law. Electronically signed by: Bryn East M.D. 10/23/2023 6:56 AM
[2023-10-23] MEDS ORDERED: PROMETHAZINE HCL 12.5 MG in SODIUM CHLORIDE 0.9% 50 ML IV STA (07:06)
--- NOTE | 2023-10-23 07:07 | Emergency Department Note ---
Impression & Plan Acute hyponatremia, Weakness Admit to the [facility] ED Provider Note NAME: SID JAVIER AGE: 68 SEX: Female INFORMANT: [Patient] ED PROVIDER(S): Manda Thayer DO CHIEF COMPLAINT: Vomiting and weakness PLAN: Disposition: Admit to the [facility] MEDICAL DECISION MAKING: This is a 68-year-old female patient who presents to the emergency department with EMS for episodes of vomiting, low back pain, generalized weakness and urinary incontinence. Patient took a dose of her daughters Zofran for the nausea and got some relief. She has been vomiting over the past 24 hours and noted some dysuria and sore throat. Laboratory studies showed negative COVID, flu and RSV. Urinalysis was negative for infection but revealed 1+ ketones and 2+ glucose. The patient did have moderate leukocytosis with a white blood cell count of 15.4. She has stable H&H. Sodium was low at 120. glucose was elevated at 211. Troponin was normal but valproic level was low. Patient required multiple doses of Zofran and Compazine to control her nausea. She received IV normal saline solution for significant hyponatremia. No specific infectious source can be identified. The case was discussed with the [facility] and they will evaluate for further inpatient care. Care/management discussed with: manager recovery and [facility] Triage Nursing notes: [reviewed and agree with them]. Vital Signs: reviewed and unremarkable Prior/ Outside/ External records reviewed: I reviewed previous admission from October 06 where she was admitted for COPD exacerbation. Differential Diagnosis: UTI, dehydration, electrolyte abnormality, pyelonephritis, gastritis, cardiac ischemia Diagnostics, independently interpreted by me: Cardiac Monitoring: Normal sinus rhythm at a rate of 92 HPI: 68 year old Female arrives for evaluation of vomiting, low back pain and dysuria. Patient describes a 1 day history of nausea and vomiting. She does describe some dysuria and sore throat. Patient does describe a longstanding history of low back pain which seems to have been exacerbated over the past couple days. PAST MEDICAL HISTORY: [See Below], [] PAST SURGICAL HISTORY: [See Below], [] SOCIAL HISTORY: [See Below], [] HOME MEDICATIONS: See list ALLERGIES: See list VITALS: [See Below] PHYSICAL EXAMINATION: HEENT: Head - normocephalic and atraumatic. Pupils are equal, round, and reactive to light. Extraocular eye muscles are intact, and sclera are anicteric. Nose - moist nasal mucosa without discharge. Mouth - moist buccal mucosa. Oropharynx is nonerythematous and there is no tonsillar exudate or edema noted. Neck: Supple; no JVD or cervical lymphadenopathy Heart: Regular rate and rhythm. There is a normal S1 and S2 with no murmurs, clicks, or gallops appreciated. Lungs: Clear to auscultation bilaterally with no wheezes, rales, or rhonchi. Abdomen: Soft, completely nontender, nondistended, with good bowel sounds. There are no palpable pulsatile masses or hepatosplenomegaly. There is no guarding, rigidity, or rebound noted. Extremities: No evidence of cyanosis, clubbing, or edema. There are easily palpable peripheral pulses. Skin: warm and dry with good turgor and no rashes. Emergency Department treatment: automatic cigar wrapper tender, IV normal saline bolus, IV Zofran, IV Compazine x 2 Emergency department course: The patient was evaluated in room C3. A complete history and physical was performed. Labs were drawn as above. An order was placed for continuous cardiac monitoring. Patient was in a normal sinus rhythm at a rate of 92. Patient was bolused with normal saline solution. She was given an additional dose of IV Zofran for her nausea. A urine specimen was collected. She continued to complain of nausea and was given a dose of IV Compazine. Her nose was swabbed for COVID/RSV/influenza. This was negative. She continued to complain of nausea and was given an additional dose of Compazine. Past Med/Surg History Medical History Anemia Anxiety and depression Arthritis Aspiration pneumonia Chronic diarrhea Diabetes Enteritis due to [place] virus Folate deficiency Generalized weakness GERD (gastroesophageal reflux disease) History of pulmonary embolism Hyperparathyroidism Hypothyroid Intractable nausea and vomiting Iron deficiency anemia Irritable bowel syndrome Pulmonary embolism Rectal bleeding Restless leg Schizoaffective disorder Smoking Surgical History History of section x2 History of cholecystectomy History of hysterectomy Family History Mother Diabetes Sister Diabetes Denies family history of Inflammatory bowel disease Social History Smoking Status: Current every day smoker Tobacco Type: Cigarettes Cigarettes Per Day: 40+; Second Hand Exposure: Yes; Do You Dip or Chew Tobacco: No; Tobacco Cessation Education Requested by Patient: No Hx Alcohol Use: No Hx Substance Use: No Preferred Language: Estonian Communication Ability: Effective Domestic Cleaner Required: No Beliefs That Will Affect Care: None marital status: Current Living Situation: Family Current Living Situation Comment: Lives with daughter. How many Children do You have: 2 Other Information That Helps Us Care for You: No Feels Safe at Home: Yes Safety Concerns: Feels Safe At This Time Assistive Devices: Walker and Wheelchair Allergies Allergies Allergy/AdvReac Type Severity Reaction Status Date / Time bee venom protein (honey bee) Allergy Severe Anaphylaxis Verified 10/22/23 23:32 egg AdvReac Severe Vomiting Verified 10/22/23 23:32 Penicillins AdvReac Severe VOMITING/IT Verified 10/22/23 23:32 DAVON Home Meds Home Medications Medication Instructions Recorded Confirmed benztropine 0.5 mg tablet 0.5 mg PO BID 10/23/23 10/23/23 buspirone 15 mg tablet 15 mg PO TID 10/23/23 10/23/23 cholestyramine (with sugar) 4 gram 4 ea PO DAILY 10/23/23 10/23/23 oral powder clonazepam 1 mg tablet 1 mg PO TID PRN Anxiety 10/23/23 10/23/23 divalproex 500 mg tablet,extended 1,500 mg PO HS 10/23/23 10/23/23 release 24 hr escitalopram oxalate 20 mg tablet 20 mg PO DAILY 10/23/23 10/23/23 ferrous sulfate 325 mg (65 mg 325 mg PO Q2D 10/23/23 10/23/23 iron) tablet (FeroSul) gabapentin 100 mg capsule 100 mg PO UD 10/23/23 10/23/23 [id number] 1 cap PO AC 10/23/23 10/23/23 12,000-38,000-60,000 unit capsule,delayed rel (Creon) meloxicam 15 mg tablet 15 mg PO DAILY 10/23/23 10/23/23 metformin 500 mg tablet,extended 500 mg PO BID 10/23/23 10/23/23 release 24 hr pantoprazole 40 mg tablet,delayed 40 mg PO DAILY 10/23/23 10/23/23 release quetiapine 400 mg tablet 400 mg PO HS 10/23/23 10/23/23 rivaroxaban 20 mg tablet (Xarelto) 20 mg PO DAILY 10/23/23 10/23/23 Results & Data (ED) Vital Signs Vital Signs - 24 hr 10/22/23 23:12 10/22/23 23:30 10/22/23 23:32 Pulse Rate 107 H 110 H Pulse Rate [Finger] 102 H Pulse Rate from SpO2 Sensor Pulse Rhythm [Finger] Regular Respiratory Rate 17 24 Respiratory Effort / Characteristics Non-Labored Spontaneous Respiratory Depth Normal Blood Pressure Blood Pressure [Left Arm] 147/79 H Blood Pressure Mean Blood Pressure Mean [Left Arm] 101 Pulse Oximetry 92 Oxygen Delivery Method Room Air 10/22/23 23:33 10/23/23 00:00 10/23/23 00:00 Pulse Rate 102 H 108 H Pulse Rate [Finger] Pulse Rate from SpO2 Sensor 102 H 108 H Pulse Rhythm [Finger] Respiratory Rate 21 20 Respiratory Effort / Characteristics Respiratory Depth Blood Pressure 147/79 H 145/75 H Blood Pressure [Left Arm] Blood Pressure Mean 101 122 Blood Pressure Mean [Left Arm] Pulse Oximetry 92 93 Oxygen Delivery Method 10/23/23 00:00 10/23/23 00:00 10/23/23 00:30 Pulse Rate 98 H Pulse Rate [Finger] Pulse Rate from SpO2 Sensor 98 H Pulse Rhythm [Finger] Respiratory Rate 21 Respiratory Effort / Characteristics Respiratory Depth Blood Pressure 145/75 H 145/75 H Blood Pressure [Left Arm] Blood Pressure Mean 122 122 Blood Pressure Mean [Left Arm] Pulse Oximetry 92 Oxygen Delivery Method 10/23/23 00:31 10/23/23 01:00 10/23/23 01:00 Pulse Rate 98 H 93 H Pulse Rate [Finger] Pulse Rate from SpO2 Sensor 98 H 94 H Pulse Rhythm [Finger] Respiratory Rate 18 19 Respiratory Effort / Characteristics Respiratory Depth Blood Pressure 111/73 119/92 Blood Pressure [Left Arm] Blood Pressure Mean 85 99 Blood Pressure Mean [Left Arm] Pulse Oximetry 93 92 Oxygen Delivery Method 10/23/23 01:30 10/23/23 01:30 10/23/23 03:44 Pulse Rate 94 H Pulse Rate [Finger] Pulse Rate from SpO2 Sensor 94 H 91 H Pulse Rhythm [Finger] Respiratory Rate 18 Respiratory Effort / Characteristics Respiratory Depth Blood Pressure 128/90 Blood Pressure [Left Arm] Blood Pressure Mean 98 Blood Pressure Mean [Left Arm] Pulse Oximetry 93 90 Oxygen Delivery Method 10/23/23 03:44 Pulse Rate Pulse Rate [Finger] Pulse Rate from SpO2 Sensor Pulse Rhythm [Finger] Respiratory Rate Respiratory Effort / Characteristics Respiratory Depth Blood Pressure 117/73 Blood Pressure [Left Arm] Blood Pressure Mean 99 Blood Pressure Mean [Left Arm] Pulse Oximetry Oxygen Delivery Method Laboratory Data 10/23/23 09:55 10/23/23 09:55 Lab Results 10/22/23 10/23/23 10/23/23 Range/Units 23:35 01:28 03:46 WBC 15.45 H (4.8-10.8) K/ul RBC 5.06 (4.20-5.40) M/uL Hgb 15.3 (12.0-16.0) g/dl Hct 44.2 (37.0-47.0) % MCV 87.4 (80.0-100.0) fL MCH 30.2 (25.0-34.0) pg MCHC 34.6 (32.0-36.0) g/dL RDW Std Deviation 40.8 (36.4-46.3) fL RDW Coeff of [place] 13.0 (11.5-14.5) % Plt Count 258 (130-400) K/uL MPV 9.9 (9.4-12.4) fL Immature Gran % (Auto) 0.8 % Neut % (Auto) 83.3 % Lymph % (Auto) 10.6 % [place] % (Auto) 3.9 % Eos % (Auto) 1.1 % Baso % (Auto) 0.3 % Neut # (Auto) 12.85 H (1.40-6.50) K/uL Lymph # (Auto) 1.64 (1.20-3.40) K/uL [place] # (Auto) 0.61 H (0.11-0.59) K/uL Eos # (Auto) 0.17 (0.00-0.50) K/uL Baso # (Auto) 0.05 (0.00-0.20) K/uL Immature Gran # (Auto) 0.13 (0.01-0.20) K/uL Sodium 128 L (136-145) mmol/L Potassium 4.9 (3.5-5.1) mmol/L Chloride 93 L (98-107) mmol/L Carbon Dioxide 24 (21-32) mmol/L Anion Gap 11 (3-11) BUN 11 (6-23) mg/dl Creatinine 0.71 (0.6-1.2) mg/dl Est Cr Clr Drug Dosing 88.2 ml/min Est GFR ( Amer) 102.9 ml/min Est GFR (Non-Af Amer) 88.8 ml/min BUN/Creatinine Ratio 15.5 (10-20) Glucose 211 H (70-99(Fasting)) mg/dl Calcium 9.8 (8.6-10.3) mg/dl Total Bilirubin 0.5 (0.2-1.0) mg/dl AST 108 H (13-39) U/L ALT 49 (7-52) U/L Alkaline Phosphatase 98 (34-104) U/L Troponin I High Sens 5.0 (0-14) pg/ml Total Protein 6.9 (6.0-8.3) gm/dl Albumin 3.7 (3.4-5.0) gm/dl Globulin 3.2 (2.5-4.0) gm/dl Albumin/Globulin Ratio 1.2 (0.9-2) Lipase 87 H (11-82) U/L Urine Color Yellow Urine Appearance Clear (Clear) Urine pH 5.5 (4.5-7.5) Ur Specific [place] 1.016 (1.000-1.030) Urine Protein Negative (Negative) Urine Glucose (UA) 2+ H (Negative) Urine Ketones 1+ H (Negative) Urine Blood Negative (Negative) Urine Nitrite Negative (Negative) Urine Bilirubin Negative (Negative) Urine Urobilinogen Negative (Negative) Ur Leukocyte Esterase Negative (Negative) Valproic Acid 40 L (50-100) mcg/ml SARS-CoV-2 (PCR) NEGATIVE (Negative) Influenza Type A (PCR) Negative (Neg) Influenza Type B (PCR) Negative (Neg) RSV (RT-PCR) Negative (Neg) Administered Medications Lipase/Protease/Amylase (Pancreaze (Lipase 10,500u) Cap) 1 cap PO AC MARY Stop: 11/22/23 11:29 Last Admin: 10/23/23 17:17 Dose: 1 cap Documented By: Admin: 10/23/23 11:50 Dose: 1 cap Documented By: GARRY Benztropine Mesylate (Benztropine Mesylate 0.5 Mg Tab) 0.5 mg PO BID [facility] Stop: 11/22/23 09:00 Last Admin: 10/23/23 19:31 Dose: 0.5 mg Documented By: Admin: 10/23/23 10:12 Dose: 0.5 mg Documented By: GARRY Buspirone HCl (Buspirone 15 Mg Tab) 15 mg PO TID [facility] Stop: 11/22/23 09:00 Last Admin: 10/23/23 19:32 Dose: 15 mg Documented By: Admin: 10/23/23 12:47 Dose: 15 mg Documented By: Admin: 10/23/23 10:11 Dose: 15 mg Documented By: GARRY Clonazepam (Clonazepam 1 Mg Tab) 1 mg PO TID PRN PRN Reason: Anxiety Stop: 11/22/23 09:00 Last Admin: 10/23/23 19:58 Dose: 1 mg Documented By: ELVER Divalproex Sodium (Divalproex Extended Release 500 Mg Tab) 1,500 mg PO [facility] Stop: 11/22/23 20:59 Last Admin: 10/23/23 19:30 Dose: 1,500 mg Documented By: ELVER Escitalopram Oxalate (Escitalopram Oxalate 20 Mg Tab) 20 mg PO DAILY [facility] Stop: 11/22/23 09:00 Last Admin: 10/23/23 10:11 Dose: 20 mg Documented By: GARRY Ferrous Sulfate (Ferrous Sulfate 325 Mg Tab) 325 mg PO Q48H [facility] Stop: 11/22/23 09:29 Last Admin: 10/23/23 10:11 Dose: 325 mg Documented By: GARRY Gabapentin (Gabapentin 100 Mg Cap) 100 mg PO TID [facility] Stop: 11/22/23 09:00 Last Admin: 10/23/23 19:30 Dose: 100 mg Documented By: Admin: 10/23/23 19:30 Dose: 100 mg Documented By: Admin: 10/23/23 12:47 Dose: 100 mg Documented By: Admin: 10/23/23 10:11 Dose: 100 mg Documented By: GARRY Gabapentin (Gabapentin 100 Mg Cap) 100 mg PO [facility] Stop: 11/22/23 20:59 Last Admin: 10/23/23 19:32 Dose: 100 mg Documented By: ELVER Insulin Aspart (Insulin Aspart Per Unit Charge) 0 units SC ACHS MARY Stop: 11/22/23 09:00 Last Admin: 10/23/23 20:27 Dose: 2 units Documented By: ELVER Co-signed By: VANCE Admin: 10/23/23 17:01 Dose: 5 units Documented By: GARRY Co-signed By: RANJITH Admin: 10/23/23 11:50 Dose: 4 units Documented By: GARRY Co-signed By: MARSHA Admin: 10/23/23 10:01 Dose: Not Given Documented By: GARRY Pantoprazole Sodium (Pantoprazole 40 Mg Tab) 40 mg PO DAILY [facility]ARY Stop: 11/22/23 09:00 Last Admin: 10/23/23 10:11 Dose: 40 mg Documented By: GARRY Polyethylene Glycol (Polyethylene (Miralax) 17 Gm Pack) 17 gm PO DAILY MARY Stop: 11/22/23 11:59 Last Admin: 10/23/23 12:46 Dose: Not Given Documented By: GARRY Quetiapine Fumarate (Quetiapine Fumarate 200 Mg Tab) 400 mg PO HS MARY Stop: 11/22/23 20:59 Last Admin: 10/23/23 19:31 Dose: 400 mg Documented By: ELVER Discontinued Medications Sodium Chloride (Nss) 500 mls @ 999 mls/hr IV .Q31M ONE Stop: 10/23/23 00:34 Last Infusion: 10/23/23 01:31 Dose: Infused Documented By: Admin: 10/23/23 00:20 Dose: 999 mls/hr Documented By: MORENA Prochlorperazine (Compazine) 1 mls @ 1 mls/min IV ONE ONE Stop: 10/23/23 00:46 Last Admin: 10/23/23 00:47 Dose: 1 mls/min Documented By: MORENA Sodium Chloride (Nss) 500 mls @ 125 mls/hr IV .Q4H MARY Stop: 11/22/23 03:14 Last Infusion: 10/23/23 09:11 Dose: Infused Documented By: Admin: 10/23/23 07:23 Dose: 125 mls/hr Documented By: Infusion: 10/23/23 07:23 Dose: Infused Documented By: Admin: 10/23/23 03:51 Dose: 125 mls/hr Documented By: MORENA Prochlorperazine (Compazine) 1 mls @ 1 mls/min IV ONE ONE Stop: 10/23/23 03:16 Last Admin: 10/23/23 03:51 Dose: 1 mls/min Documented By: MORENA Promethazine HCl 12.5 mg/ (Sodium Chloride) 50.5 mls @ 202 mls/hr IV NOW STA Stop: 10/23/23 07:20 Last Infusion: 10/23/23 07:38 Dose: Infused Documented By: Admin: 10/23/23 07:23 Dose: 202 mls/hr Documented By: OSMANY Sodium Chloride (Nss) 1,000 mls @ 100 mls/hr IV .Q10H MARY Stop: 11/22/23 09:00 Last Infusion: 10/23/23 15:46 Dose: Infused Documented By: Admin: 10/23/23 10:13 Dose: 100 mls/hr Documented By: GARRY Magnesium Hydroxide (Magnesium Hydroxide Susp 30 Ml Udc) 30 ml PO NOW ONE Stop: 10/23/23 11:57 Last Admin: 10/23/23 12:46 Dose: Not Given Documented By: GARRY Ondansetron HCl (Ondansetron Inj 2 Mg/Ml 2 Ml Vial) 4 mg IV NOW STA Stop: 10/23/23 00:05 Last Admin: 10/23/23 00:19 Dose: 4 mg Documented By: MORENA Prochlorperazine (Prochlorperazine 5 Mg/Ml 2 Ml Vial) Confirm Administered Dose 10 mg .ROUTE .STK-MED ONE Stop: 10/23/23 00:47 Last Admin: 10/23/23 00:47 Dose: Not Given Documented By: MORENA Promethazine HCl (Promethazine 12.5 Mg/50.5 Ml Nss) Confirm Administered Dose 12.5 mg IV .STK-MED ONE Stop: 10/23/23 07:12 Last Admin: 10/23/23 07:23 Dose: Not Given Documented By: OSMANY Imaging Data Radiologist's Impression: Abdomen/Pelvis CT 10/23/23 05:09 CT OF THE ABDOMEN AND PELVIS WITHOUT CONTRAST CLINICAL HISTORY: Abdominal pain, nausea and vomiting. COMPARISON STUDY: CT of the abdomen and pelvis October 03, 2023. TECHNIQUE: Axial images of the abdomen and pelvis were obtained without IV contrast. Images were reviewed in the axial, sagittal, and coronal planes. Automated exposure control was utilized for the study. A dose lowering technique was utilized adhering to the principles of ALARA. FINDINGS: Mild subpleural right lower lobe airspace opacities could reflect a mild infectious process or atelectasis. There is a small hiatal hernia. Evaluation of the abdomen and pelvis is suboptimal on this unenhanced examination. No pneumatosis, free air or portal venous gas is present. Mild dilatation of the common bile duct is unchanged and likely related to cholecystectomy. Spleen, adrenal glands, kidneys and pancreas are unremarkable. There is no peripancreatic stranding or fluid. No renal, ureteral or bladder calculi are present. There is no hydronephrosis. There is no evidence for a bowel obstruction. The appendix is normal. Moderate amount of stool within the colon and rectum is present. Acute fractures are identified within the visualized skeletal structures. IMPRESSION: 1. No urinary calculi or hydronephrosis. 2. No bowel obstruction. Moderate amount of stool within the colon and rectum. Normal appendix. 3. Mild subpleural right lower lobe opacities which could reflect atelectasis or a mild infectious process. ACT 112: Negative or not required by law. Electronically signed by: Bryn East M.D. 10/23/2023 6:56 AM Discharge Plan Visit Data Chief Complaint: Nausea Stated Complaint: NAUSEA, VOMITING ED Provider: Manda Thayer Discharge Problem: Acute hyponatremia, Weakness Patient Disposition: Admitted As Inpatient Discharge Instructions Interventions: ED Discharge Assessment Last Done: 10/23/23 08:07
[2023-10-23] MEDS ORDERED: PROMETHAZINE 12.5 MG/50.5 ML NSS IV ONE (07:11)
[2023-10-23] MEDS ORDERED: DEXTROSE 50% 50 ML SYRINGE IV PRN (09:01)
[2023-10-23] MEDS ORDERED: GLUCOSE 10 TAB/TUBE PO PRN (09:01)
[2023-10-23] MEDS ORDERED: GLUCAGON FOR INJ 1 MG VIAL SQ PRN (09:01)
[2023-10-23] MEDS ORDERED: ACETAMINOPHEN 325 MG TAB PO PRN (09:01)
[2023-10-23] MEDS ORDERED: CARBOHYDRATES FOR HYPOGLYCEMIA PO PRN (09:01)
[2023-10-23] MEDS ORDERED: NITROGLYCERIN SL 0.4 MG/TAB TAB SL PRN (09:01)
[2023-10-23] MEDS ORDERED: GLUCOSE 40% GEL 15 GM TUBE PO PRN (09:01)
[2023-10-23] MEDS ORDERED: SODIUM CHLORIDE 0.9% 1,000 ML IV SCH (09:01)
[2023-10-23] MEDS: INSULIN ASPART PER UNIT CHARGE SC SCH ×4 (10:01→20:27)
[2023-10-23] MEDS: PANTOprazole 40 MG TAB PO SCH (10:11)
[2023-10-23] MEDS: FERROUS SULFATE 325 MG TAB PO SCH (10:11)
[2023-10-23] MEDS: busPIRone 15 MG TAB PO SCH ×3 (10:11→19:32)
[2023-10-23] MEDS: GABAPENTIN 100 MG CAP PO SCH ×4 (10:11→19:32)
[2023-10-23] MEDS: ESCITALOPRAM OXALATE 20 MG TAB PO SCH (10:11)
[2023-10-23] MEDS: BENZTROPINE MESYLATE 0.5 MG TAB PO SCH ×2 (10:12→19:31)
[2023-10-23 10:36] LABS: Basophils # (auto) 0.05 K/uL (0.00-0.20); Basophils % (auto) 0.4 %; Eosinophils # (auto) 0.27 K/uL (0.00-0.50); Eosinophils % (auto) 2.4 %; Hematocrit (blood only) 42.1 % (37.0-47.0); Hemoglobin 14.5 g/dl (12.0-16.0); Immature Granulocytes # (auto) 0.08 K/uL (0.01-0.20); Immature Granulocytes % (auto) 0.7 %; Lymphocytes # (auto) 2.75 K/uL (1.20-3.40); Lymphocytes % (auto) 24.3 %; Mean Corpuscular Hemoglobin 30.3 pg (25.0-34.0); Mean Corpuscular Hgb Conc 34.4 g/dL (32.0-36.0); Mean Corpuscular Volume 88.1 fL (80.0-100.0); Mean Platelet Volume 9.6 fL (9.4-12.4); Monocytes # (auto) 0.53 K/uL (0.11-0.59); Monocytes % (auto) 4.7 %; Neutrophils # (auto) 7.64 K/uL (1.40-6.50); Neutrophils % (auto) 67.5 %; Platelet Count 249 K/uL (130-400); RDW Coefficient of Variation 13.1 % (11.5-14.5); RDW Standard Deviation 42.2 fL (36.4-46.3); Red Blood Count 4.78 M/uL (4.20-5.40); White Blood Count 11.32 K/ul (4.8-10.8)
[2023-10-23 10:51] LABS: BUN Creatinine Ratio 12.8 (10-20); Calcium 9.3 mg/dl (8.6-10.3); Creatinine Clr Calc Pharmacy 96.1 ml/min; Est GFR (African American) 91.8 ml/min; Est GFR (Non-African American) 79.2 ml/min; Magnesium 1.4 mg/dl (1.7-2.4); Potassium 4.6 mmol/L (3.5-5.1)
[2023-10-23 11:09] LABS: Estimated Average Glucose 180 mg/dl; Hemoglobin A1C 7.9 % (4.5-5.6)
[2023-10-23] MEDS: PANCREAZE (LIPASE 10,500U) CAP PO SCH ×2 (11:50→17:17)
[2023-10-23] MEDS ORDERED: MAGNESIUM HYDROXIDE SUSP 30 ML UDC PO ONE (11:56)
--- NOTE | 2023-10-23 11:59 | Hospitalist Progress Note ---
Date of Service October 23, 2023 Assessment & Plan (1) Nausea & vomiting: Plan: 68-year-old female past med history significant for type 2 diabetes, history of GERD, irritable bowel syndrome, seizure affective disorder, panic disorder, tobacco use disorder, history of pulmonary embolism who lives with her daughter ambulates with walker presents with nausea and vomiting and feeling weak. Nausea and vomiting Abdominal pain Possible acute gastroenteritis Patient presents with nausea, vomiting and generalized weakness CT abdomen and pelvis on admission personally reviewed; no bowel obstruction. Moderate amount of stool within the colon and rectum. Advance diet as tolerated. Bowel regimen with milk of magnesia and MiraLAX Monitor for nausea and vomiting. Hyponatremia, likely hypovolemic Sodium 128 on admission Sodium increased to 131 Continue normal saline at 100 cc/h. BMP every 12 hours. Type 2 diabetes Hold metformin Insulin sliding scale Will monitor Schizoaffective disorder On Seroquel, Depakote and benztropine and Lexapro Anxiety On buspirone On Klonopin as needed History of PE On Xarelto Tobacco abuse Needs counseling GERD On Protonix DVT prophylaxis On Xarelto Disposition Patient presents with generalized weakness along with nausea/vomiting. Will obtain PT OT evaluation. Full code Please note the above document was generated using voice recognition software. It may contain grammatical, syntax or spelling errors. Any formal questions or concerns about the content, text or information contained within the body of this dictation should be directly addressed to the provider for clarification Admission and Anticipated Discharge Date Admission Date: October 23, 2023 Subjective Patient seen and examined at bedside. She reports that nausea and vomiting has resolved. She denies fever, chills, chest pain or shortness of breath. No abdominal pain or discomfort. Review of Systems Review of Systems: All systems reviewed & are unremarkable except as noted in Subjective Physical Exam Physical Exam: Constitutional: Alert oriented x 3; not in any distress. Respiratory: normal respiratory effort, lungs clear to auscultation, no wheeze, rales, rhonchi. Normal insp/exp effort, no accessory muscle use Cardiovascular: RRR, no murmur, no edema Vessels: no JVD or carotid bruit Chest: normal inspection of chest Abdomen: Soft, nontender. Bowel sounds present. Musculoskeletal: no cyanosis or clubbing, extremities motor strength 5/5 Skin: no rashes, warm and dry normal turgor Neurologic: PERRL, EOMI, accommodation nl, no face palsy, no dysarthria CN's II- XI intact bilaterally and moves all extremities Psychiatric: A+Ox3, euthymic affect Results & Data Results & Data Vital Signs (Past 12 Hours) Vital Signs Temp Pulse Pulse Resp BP BP Pulse Ox 10/23/23 11:10 36.7 C 87 18 119/76 92 10/23/23 09:38 91 H 10/23/23 09:28 10/23/23 09:02 36.9 C 90 18 117/77 95 10/23/23 08:07 10/23/23 03:44 117/73 10/23/23 03:44 90 10/23/23 01:30 94 H 18 93 10/23/23 01:30 128/90 10/23/23 01:00 93 H 19 92 10/23/23 01:00 119/92 10/23/23 00:31 98 H 18 111/73 93 10/23/23 00:30 98 H 21 92 10/23/23 00:00 145/75 H 10/23/23 00:00 145/75 H 10/23/23 00:00 145/75 H 10/23/23 00:00 108 H 20 93 O2 Del Method 10/23/23 11:10 Room Air 10/23/23 09:38 10/23/23 09:28 Room Air 10/23/23 09:02 Room Air 10/23/23 08:07 Room Air 10/23/23 03:44 10/23/23 03:44 10/23/23 01:30 10/23/23 01:30 10/23/23 01:00 10/23/23 01:00 10/23/23 00:31 10/23/23 00:30 10/23/23 00:00 10/23/23 00:00 10/23/23 00:00 10/23/23 00:00 Laboratory Results Laboratory Results WBC 11.32 K/ul (4.8-10.8) H 10/23/23 09:55 RBC 4.78 M/uL (4.20-5.40) 10/23/23 09:55 Hgb 14.5 g/dl (12.0-16.0) 10/23/23 09:55 Hct 42.1 % (37.0-47.0) 10/23/23 09:55 MCV 88.1 fL (80.0-100.0) 10/23/23 09:55 MCH 30.3 pg (25.0-34.0) 10/23/23 09:55 MCHC 34.4 g/dL (32.0-36.0) 10/23/23 09:55 RDW Std Deviation 42.2 fL (36.4-46.3) 10/23/23 09:55 RDW Coeff of [place] 13.1 % (11.5-14.5) 10/23/23 09:55 Plt Count 249 K/uL (130-400) 10/23/23 09:55 MPV 9.6 fL (9.4-12.4) 10/23/23 09:55 Immature Gran % (Auto) 0.7 % 10/23/23 09:55 Neut % (Auto) 67.5 % 10/23/23 09:55 Lymph % (Auto) 24.3 % 10/23/23 09:55 [place] % (Auto) 4.7 % 10/23/23 09:55 Eos % (Auto) 2.4 % 10/23/23 09:55 Baso % (Auto) 0.4 % 10/23/23 09:55 Neut # (Auto) 7.64 K/uL (1.40-6.50) H 10/23/23 09:55 Lymph # (Auto) 2.75 K/uL (1.20-3.40) 10/23/23 09:55 [place] # (Auto) 0.53 K/uL (0.11-0.59) 10/23/23 09:55 Eos # (Auto) 0.27 K/uL (0.00-0.50) 10/23/23 09:55 Baso # (Auto) 0.05 K/uL (0.00-0.20) 10/23/23 09:55 Immature Gran # (Auto) 0.08 K/uL (0.01-0.20) 10/23/23 09:55 Sodium 131 mmol/L (136-145) L 10/23/23 09:55 Potassium 4.6 mmol/L (3.5-5.1) 10/23/23 09:55 Chloride 96 mmol/L (98-107) L 10/23/23 09:55 Carbon Dioxide 28 mmol/L (21-32) 10/23/23 09:55 Anion Gap 7 (3-11) 10/23/23 09:55 BUN 10 mg/dl (6-23) 10/23/23 09:55 Creatinine 0.78 mg/dl (0.6-1.2) 12 09:55 Est Cr Clr Drug Dosing 96.1 ml/min 10/23/23 09:55 Est GFR ( Amer) 91.8 ml/min 10/23/23 09:55 Est GFR (Non-Af Amer) 79.2 ml/min 10/23/23 09:55 BUN/Creatinine Ratio 12.8 (10-20) 10/23/23 09:55 Glucose 167 mg/dl (70-99(Fasting)) H 10/23/23 09:55 POC Glucose 199 mg/dl (70-99) H 10/23/23 10:58 Estimat Average Glucose 180 mg/dl 10/23/23 09:55 Hemoglobin A1c 7.9 % (4.5-5.6) H 10/23/23 09:55 Calcium 9.3 mg/dl (8.6-10.3) 10/23/23 09:55 Magnesium 1.4 mg/dl (1.7-2.4) L 10/23/23 09:55 Total Bilirubin 0.5 mg/dl (0.2-1.0) 10/22/23 23:35 AST 108 U/L (13-39) H 10/22/23 23:35 ALT 49 U/L (7-52) 10/22/23 23:35 Alkaline Phosphatase 98 U/L (34-104) 10/22/23 23:35 Total Creatine Kinase 35 U/L (26-192) 10/23/23 09:55 Troponin I High Sens 5.0 pg/ml (0-14) 10/22/23 23:35 Total Protein 6.9 gm/dl (6.0-8.3) 10/22/23 23:35 Albumin 3.7 gm/dl (3.4-5.0) 10/22/23 23:35 Globulin 3.2 gm/dl (2.5-4.0) 10/22/23 23:35 Albumin/Globulin Ratio 1.2 (0.9-2) 10/22/23 23:35 Lipase 87 U/L (11-82) H 10/22/23 23:35 Urine Color Yellow 10/22/23 23:35 Urine Appearance Clear (Clear) 10/22/23 23:35 Urine pH 5.5 (4.5-7.5) 10/22/23 23:35 Ur Specific [place] 1.016 (1.000-1.030) 10/22/23 23:35 Urine Protein Negative (Negative) 10/22/23 23:35 Urine Glucose (UA) 2+ (Negative) H 10/22/23 23:35 Urine Ketones 1+ (Negative) H 10/22/23 23:35 Urine Blood Negative (Negative) 10/22/23 23: Urine Nitrite Negative (Negative) 10/22/23 23:35 Urine Bilirubin Negative (Negative) 10/22/23 23: Urine Urobilinogen Negative (Negative) 10/22/23 23:35 Ur Leukocyte Esterase Negative (Negative) 10/22/23 23:35 Valproic Acid 40 mcg/ml (50-100) L 10/23/23 03:46 SARS-CoV-2 (PCR) NEGATIVE (Negative) 10/23/23 01:28 Influenza Type A (PCR) Negative (Neg) 10/23/23 01:28 Influenza Type B (PCR) Negative (Neg) 10/23/23 01:28 RSV (RT-PCR) Negative (Neg) 10/23/23 01:28 Impressions Abdomen/Pelvis CT 10/23/23 05:09 CT OF THE ABDOMEN AND PELVIS WITHOUT CONTRAST CLINICAL HISTORY: Abdominal pain, nausea and vomiting. COMPARISON STUDY: CT of the abdomen and pelvis October 03, 2023. TECHNIQUE: Axial images of the abdomen and pelvis were obtained without IV contrast. Images were reviewed in the axial, sagittal, and coronal planes. Automated exposure control was utilized for the study. A dose lowering technique was utilized adhering to the principles of ALARA. FINDINGS: Mild subpleural right lower lobe airspace opacities could reflect a mild infectious process or atelectasis. There is a small hiatal hernia. Evaluation of the abdomen and pelvis is suboptimal on this unenhanced examination. No pneumatosis, free air or portal venous gas is present. Mild dilatation of the common bile duct is unchanged and likely related to cholecystectomy. Spleen, adrenal glands, kidneys and pancreas are unremarkable. There is no peripancreatic stranding or fluid. No renal, ureteral or bladder calculi are present. There is no hydronephrosis. There is no evidence for a bowel obstruction. The appendix is normal. Moderate amount of stool within the colon and rectum is present. Acute fractures are identified within the visualized skeletal structures. IMPRESSION: 1. No urinary calculi or hydronephrosis. 2. No bowel obstruction. Moderate amount of stool within the colon and rectum. Normal appendix. 3. Mild subpleural right lower lobe opacities which could reflect atelectasis or a mild infectious process. ACT 112: Negative or not required by law. Electronically signed by: Bryn East M.D. 10/23/2023 6:56 AM
--- NOTE | 2023-10-23 12:08 | Electrocardiogram Report ---
Test Reason : Blood Pressure : / mmHG Vent. Rate : 086 BPM Atrial Rate : 086 BPM P-R Int : 174 ms QRS Dur : 124 ms QT Int : 398 ms P-R-T Axes : 053 126 030 degrees QTc Int : 476 ms Normal sinus rhythm Right bundle branch block Abnormal ECG When compared with ECG of 03-OCT-2023 17:58, No significant change was found Confirmed by David Rodriguez ([id number]) on 10/23/2023 12:07:51 PM Referred By: REFERRED SELF Confirmed By:Alex Rodriguez
[2023-10-23] MEDS: POLYETHYLENE (MIRALAX) 17 GM PACK PO SCH (12:46)
[2023-10-23] MEDS: DIVALPROEX EXTENDED RELEASE 500 MG TAB PO SCH (19:30)
[2023-10-23] MEDS: QUEtiapine FUMARATE 200 MG TAB PO SCH (19:31)
[2023-10-23] MEDS: clonazePAM 1 MG TAB PO PRN (19:58)
[2023-10-24] MEDS: INSULIN ASPART PER UNIT CHARGE SC SCH ×4 (08:10→21:11)
[2023-10-24] MEDS: ESCITALOPRAM OXALATE 20 MG TAB PO SCH (08:11)
[2023-10-24] MEDS: busPIRone 15 MG TAB PO SCH ×3 (08:11→21:11)
[2023-10-24] MEDS: PANCREAZE (LIPASE 10,500U) CAP PO SCH ×3 (08:11→16:40)
[2023-10-24] MEDS: BENZTROPINE MESYLATE 0.5 MG TAB PO SCH ×2 (08:11→21:11)
[2023-10-24] MEDS: PANTOprazole 40 MG TAB PO SCH (08:12)
[2023-10-24] MEDS: POLYETHYLENE (MIRALAX) 17 GM PACK PO SCH ×2 (08:13→08:14)
[2023-10-24 08:22] LABS: Basophils # (auto) 0.03 K/uL (0.00-0.20); Basophils % (auto) 0.4 %; Eosinophils # (auto) 0.28 K/uL (0.00-0.50); Eosinophils % (auto) 3.9 %; Hematocrit (blood only) 37.8 % (37.0-47.0); Hemoglobin 13.1 g/dl (12.0-16.0); Immature Granulocytes # (auto) 0.07 K/uL (0.01-0.20); Lymphocytes # (auto) 3.11 K/uL (1.20-3.40); Lymphocytes % (auto) 43.7 %; Mean Corpuscular Hemoglobin 30.3 pg (25.0-34.0); Mean Corpuscular Hgb Conc 34.7 g/dL (32.0-36.0); Mean Corpuscular Volume 87.5 fL (80.0-100.0); Mean Platelet Volume 9.5 fL (9.4-12.4); Monocytes # (auto) 0.54 K/uL (0.11-0.59); Monocytes % (auto) 7.6 %; Neutrophils # (auto) 3.08 K/uL (1.40-6.50); Neutrophils % (auto) 43.4 %; Platelet Count 213 K/uL (130-400); RDW Coefficient of Variation 13.2 % (11.5-14.5); RDW Standard Deviation 42.5 fL (36.4-46.3); Red Blood Count 4.32 M/uL (4.20-5.40); White Blood Count 7.11 K/ul (4.8-10.8)
[2023-10-24 08:50] LABS: BUN Creatinine Ratio 11.5 (10-20); Creatinine Clr Calc Pharmacy 96.1 ml/min; Est GFR (African American) 91.8 ml/min; Est GFR (Non-African American) 79.2 ml/min; Potassium 4.4 mmol/L (3.5-5.1)
--- NOTE | 2023-10-24 09:50 | Hospitalist Progress Note ---
Date of Service October 24, 2023 Assessment & Plan (1) Nausea & vomiting: Plan: 68-year-old female past med history significant for type 2 diabetes, history of GERD, irritable bowel syndrome, seizure affective disorder, panic disorder, tobacco use disorder, history of pulmonary embolism who lives with her daughter ambulates with walker presents with nausea and vomiting and feeling weak. Nausea and vomiting Abdominal pain Possible acute gastroenteritis Patient presents with nausea, vomiting and generalized weakness CT abdomen and pelvis on admission personally reviewed; no bowel obstruction. Moderate amount of stool within the colon and rectum. Advance diet as tolerated. Bowel regimen with milk of magnesia and MiraLAX Monitor for nausea and vomiting. Hyponatremia, likely hypovolemic Sodium 128 on admission Sodium increased to 134 Continue to monitor. Type 2 diabetes Hold metformin Insulin sliding scale Will monitor Schizoaffective disorder On Seroquel, Depakote and benztropine and Lexapro Anxiety On buspirone On Klonopin as needed History of PE On Xarelto Tobacco abuse Needs counseling GERD On Protonix DVT prophylaxis On Xarelto Disposition Patient presents with generalized weakness along with nausea/vomiting. PT OT evaluation pending. Blood culture also pending. Depending on PT OT evaluation; might need rehab versus home health. Full code Please note the above document was generated using voice recognition software. It may contain grammatical, syntax or spelling errors. Any formal questions or concerns about the content, text or information contained within the body of this dictation should be directly addressed to the provider for clarification Admission and Anticipated Discharge Date Admission Date: October 23, 2023 Subjective Patient seen and examined at bedside. She reports that the nausea and vomiting has improved significantly. She is able to finish breakfast. Review of Systems Review of Systems: All systems reviewed & are unremarkable except as noted in Subjective Physical Exam Physical Exam: Constitutional: Alert oriented x 3; not in any distress. Respiratory: normal respiratory effort, lungs clear to auscultation, no wheeze, rales, rhonchi. Normal insp/exp effort, no accessory muscle use Cardiovascular: RRR, no murmur, no edema Vessels: no JVD or carotid bruit Chest: normal inspection of chest Abdomen: Soft, nontender. Bowel sounds present. Musculoskeletal: no cyanosis or clubbing, extremities motor strength 5/5 Skin: no rashes, warm and dry normal turgor Neurologic: PERRL, EOMI, accommodation nl, no face palsy, no dysarthria CN's II- XI intact bilaterally and moves all extremities Psychiatric: A+Ox3, euthymic affect Results & Data Results & Data Vital Signs (Past 12 Hours) Vital Signs Temp Pulse Pulse Resp BP Pulse Ox O2 Del Method 10/24/23 07:56 36.4 C L 100 H 18 128/76 93 Room Air 10/24/23 07:32 91 H 10/24/23 02:53 36.5 C 82 18 103/64 93 Room Air 10/23/23 22:41 36.9 C 82 18 100/64 96 Room Air Laboratory Results Laboratory Results WBC 7.11 K/ul (4.8-10.8) 10/24/23 07:59 RBC 4.32 M/uL (4.20-5.40) 10/24/23 07:59 Hgb 13.1 g/dl (12.0-16.0) 10/24/23 07:59 Hct 37.8 % (37.0-47.0) 10/24/23 07:59 MCV 87.5 fL (80.0-100.0) 10/24/23 07:59 MCH 30.3 pg (25.0-34.0) 10/24/23 07:59 MCHC 34.7 g/dL (32.0-36.0) 10/24/23 07:59 RDW Std Deviation 42.5 fL (36.4-46.3) 10/24/23 07:59 RDW Coeff of [place] 13.2 % (11.5-14.5) 10/24/23 07:59 Plt Count 213 K/uL (130-400) 10/24/23 07:59 MPV 9.5 fL (9.4-12.4) 10/24/23 07:59 Immature Gran % (Auto) 1.0 % 10/24/23 07:59 Neut % (Auto) 43.4 % 10/24/23 07:59 Lymph % (Auto) 43.7 % 10/24/23 07:59 [place] % (Auto) 7.6 % 10/24/23 07:59 Eos % (Auto) 3.9 % 10/24/23 07:59 Baso % (Auto) 0.4 % 10/24/23 07:59 Neut # (Auto) 3.08 K/uL (1.40-6.50) 10/24/23 07:59 Lymph # (Auto) 3.11 K/uL (1.20-3.40) 10/24/23 07:59 [place] # (Auto) 0.54 K/uL (0.11-0.59) 10/24/23 07:59 Eos # (Auto) 0.28 K/uL (0.00-0.50) 10/24/23 07:59 Baso # (Auto) 0.03 K/uL (0.00-0.20) 10/24/23 07:59 Immature Gran # (Auto) 0.07 K/uL (0.01-0.20) 10/24/23 07:59 Sodium 134 mmol/L (136-145) L 10/24/23 07:59 Potassium 4.4 mmol/L (3.5-5.1) 10/24/23 07:59 Chloride 99 mmol/L (98-107) 10/24/23 07:59 Carbon Dioxide 30 mmol/L (21-32) 10/24/23 07:59 Anion Gap 5 (3-11) 10/24/23 07:59 BUN 9 mg/dl (6-23) 10/24/23 07:59 Creatinine 0.78 mg/dl (0.6-1.2) 10/24/23 07:59 Est Cr Clr Drug Dosing 96.1 ml/min 10/24/23 07:59 Est GFR ( Amer) 91.8 ml/min 10/24/23 07:59 Est GFR (Non-Af Amer) 79.2 ml/min 10/24/23 07:59 BUN/Creatinine Ratio 11.5 (10-20) 10/24/23 07:59 Glucose 190 mg/dl (70-99(Fasting)) H 10/24/23 07:59 POC Glucose 180 mg/dl (70-99) H 10/24/23 07:09 Estimat Average Glucose 180 mg/dl 10/23/23 09:55 Hemoglobin A1c 7.9 % (4.5-5.6) H 10/23/23 09:55 Calcium 9.0 mg/dl (8.6-10.3) 10/24/23 07:59 Magnesium 1.4 mg/dl (1.7-2.4) L 10/23/23 09:55 Total Bilirubin 0.5 mg/dl (0.2-1.0) 10/22/23 23:35 AST 108 U/L (13-39) H 10/22/23 23:35 ALT 49 U/L (7-52) 10/22/23 23:35 Alkaline Phosphatase 98 U/L (34-104) 10/22/23 23:35 Total Creatine Kinase 35 U/L (26-192) 10/23/23 09:55 Troponin I High Sens 5.0 pg/ml (0-14) 10/22/23 23:35 Total Protein 6.9 gm/dl (6.0-8.3) 10/22/23 23:35 Albumin 3.7 gm/dl (3.4-5.0) 10/22/23 23:35 Globulin 3.2 gm/dl (2.5-4.0) 10/22/23 23:35 Albumin/Globulin Ratio 1.2 (0.9-2) 10/22/23 23:35 Lipase 87 U/L (11-82) H 10/22/23 23:35 Urine Color Yellow 10/22/23 23:35 Urine Appearance Clear (Clear) 10/22/23 23:35 Urine pH 5.5 (4.5-7.5) 10/22/23 23:35 Ur Specific [place] 1.016 (1.000-1.030) 10/22/23 23:35 Urine Protein Negative (Negative) 10/22/23 23:35 Urine Glucose (UA) 2+ (Negative) H 10/22/23 23:35 Urine Ketones 1+ (Negative) H 10/22/23 23:35 Urine Blood Negative (Negative) 10/22/23 23:35 Urine Nitrite Negative (Negative) 10/22/23 23:35 Urine Bilirubin Negative (Negative) 10/22/23 23:35 Urine Urobilinogen Negative (Negative) 10/22/23 23:35 Ur Leukocyte Esterase Negative (Negative) 10/22/23 23:35 Valproic Acid 40 mcg/ml (50-100) L 10/23/23 03:46 SARS-CoV-2 (PCR) NEGATIVE (Negative) 10/23/23 01:28 Influenza Type A (PCR) Negative (Neg) 10/23/23 01:28 Influenza Type B (PCR) Negative (Neg) 10/23/23 01:28 RSV (RT-PCR) Negative (Neg) 10/23/23 01:28 Impressions Abdomen/Pelvis CT 10/23/23 05:09 CT OF THE ABDOMEN AND PELVIS WITHOUT CONTRAST CLINICAL HISTORY: Abdominal pain, nausea and vomiting. COMPARISON STUDY: CT of the abdomen and pelvis October 03, 2023. TECHNIQUE: Axial images of the abdomen and pelvis were obtained without IV contrast. Images were reviewed in the axial, sagittal, and coronal planes. Automated exposure control was utilized for the study. A dose lowering technique was utilized adhering to the principles of ALARA. FINDINGS: Mild subpleural right lower lobe airspace opacities could reflect a mild infectious process or atelectasis. There is a small hiatal hernia. Evaluation of the abdomen and pelvis is suboptimal on this unenhanced exami [place]. No pneumatosis, free air or portal venous gas is present. Mild dilatation of the common bile duct is unchanged and likely related to cholecystectomy. Spleen, adrenal glands, kidneys and pancreas are unremarkable. There is no peripancreatic stranding or fluid. No renal, ureteral or bladder calculi are present. There is no hydronephrosis. There is no evidence for a bowel obstruction. The appendix is normal. Moderate amount of stool within the colon and rectum is present. Acute fractures are identified within the visualized skeletal structures. IMPRESSION: 1. No urinary calculi or hydronephrosis. 2. No bowel obstruction. Moderate amount of stool within the colon and rectum. Normal appendix. 3. Mild subpleural right lower lobe opacities which could reflect atelectasis or a mild infectious process. ACT 112: Negative or not required by law. Electronically signed by: Bryn East M.D. 10/23/2023 6:56 AM
[2023-10-24] MEDS: GABAPENTIN 100 MG CAP PO SCH ×3 (13:36→21:11)
[2023-10-24] MEDS: QUEtiapine FUMARATE 200 MG TAB PO SCH (21:11)
[2023-10-24] MEDS: clonazePAM 1 MG TAB PO PRN (21:11)
[2023-10-24] MEDS: DIVALPROEX EXTENDED RELEASE 500 MG TAB PO SCH (21:11)
[2023-10-25 06:32] LABS: BUN Creatinine Ratio 18.2 (10-20); Calcium 8.7 mg/dl (8.6-10.3); Creatinine Clr Calc Pharmacy 113.5 ml/min; Est GFR (African American) 106.7 ml/min; Est GFR (Non-African American) 92.1 ml/min; Potassium 4.2 mmol/L (3.5-5.1)
[2023-10-25 06:33] LABS: Basophils # (auto) 0.05 K/uL (0.00-0.20); Basophils % (auto) 0.7 %; Eosinophils # (auto) 0.28 K/uL (0.00-0.50); Eosinophils % (auto) 4.1 %; Hematocrit (blood only) 34.6 % (37.0-47.0); Hemoglobin 11.9 g/dl (12.0-16.0); Immature Granulocytes # (auto) 0.06 K/uL (0.01-0.20); Immature Granulocytes % (auto) 0.9 %; Lymphocytes # (auto) 3.13 K/uL (1.20-3.40); Lymphocytes % (auto) 45.4 %; Mean Corpuscular Hemoglobin 30.5 pg (25.0-34.0); Mean Corpuscular Hgb Conc 34.4 g/dL (32.0-36.0); Mean Corpuscular Volume 88.7 fL (80.0-100.0); Mean Platelet Volume 9.8 fL (9.4-12.4); Monocytes # (auto) 0.53 K/uL (0.11-0.59); Monocytes % (auto) 7.7 %; Neutrophils # (auto) 2.84 K/uL (1.40-6.50); Neutrophils % (auto) 41.2 %; Platelet Count 201 K/uL (130-400); RDW Coefficient of Variation 13.2 % (11.5-14.5); RDW Standard Deviation 42.7 fL (36.4-46.3); White Blood Count 6.89 K/ul (4.8-10.8)
[2023-10-25] MEDS: BENZTROPINE MESYLATE 0.5 MG TAB PO SCH (07:53)
[2023-10-25] MEDS: GABAPENTIN 100 MG CAP PO SCH ×2 (07:53→13:00)
[2023-10-25] MEDS: PANTOprazole 40 MG TAB PO SCH (07:53)
[2023-10-25] MEDS: busPIRone 15 MG TAB PO SCH ×2 (07:54→13:00)
[2023-10-25] MEDS: ESCITALOPRAM OXALATE 20 MG TAB PO SCH (07:54)
[2023-10-25] MEDS: FERROUS SULFATE 325 MG TAB PO SCH (07:54)
[2023-10-25] MEDS: PANCREAZE (LIPASE 10,500U) CAP PO SCH ×2 (07:54→12:00)
[2023-10-25] MEDS: POLYETHYLENE (MIRALAX) 17 GM PACK PO SCH (07:55)
[2023-10-25] MEDS: INSULIN ASPART PER UNIT CHARGE SC SCH ×2 (08:03→12:02)
--- NOTE | 2023-10-26 15:57 | Discharge Summary ---
Date of Service October 25, 2023 Admission HPI Per Admitting Provider 68-year-old female past med history significant for type 2 diabetes, history of GERD, irritable bowel syndrome, seizure affective disorder, panic disorder, tobacco use disorder, history of pulmonary embolism who lives with her daughter ambulates with walker presents with nausea and vomiting and feeling weak. She states 3 episodes of vomiting today. She is constipated. Denies any fevers. No chest pain. States she is always short of breath because she smokes. Has some cough. No headache. No blurred visions. No runny nose. Hemodynamically stable. Past medical history. As mentioned above. Past surgical history. . Cholecystectomy. Total hysterectomy. Family history. Mother had cancer. Diabetes. Uncle had bowel cancer. Sister has diabetes. Social history. Lives with her daughter. Smokes 1 pack a day for last 53 years. No alcohol use. Smokes marijuana as per [facility] Admission Exam Per Admitting Provider General- Not in distress. Head- atraumatic Eyes- PERRL. ENT- oropharynx clear Neck- supple, no JVD. Lungs- clear to auscultation no wheezing or crackles. Heart- regular rhythm; no murmur, no gallop. Abdomen- normal bowel sounds, soft, mild diffuse tenderness, no distension. Extremities- lower extremity edema present. No erythema seen. Neuro- alert, oriented x 3; PERRL, I; no facial palsy; no dysarthria; moves extremities. Skin- warm & dry Principal Diagnosis Acute gastroenteritis Hyponatremia Discharge Exam Constitutional: Alert oriented x 3; not in any distress. Respiratory: normal respiratory effort, lungs clear to auscultation, no wheeze, rales, rhonchi. Normal insp/exp effort, no accessory muscle use Cardiovascular: RRR, no murmur, no edema Vessels: no JVD or carotid bruit Chest: normal inspection of chest Abdomen: Soft, nontender. Bowel sounds present. Musculoskeletal: no cyanosis or clubbing, extremities motor strength 5/5 Skin: no rashes, warm and dry normal turgor Neurologic: PERRL, EOMI, accommodation nl, no face palsy, no dysarthria CN's II- XI intact bilaterally and moves all extremities Psychiatric: A+Ox3, euthymic affect Discharge Data Allergies Allergy/AdvReac Type Severity Reaction Status Date / Time bee venom protein (honey bee) Allergy Severe Anaphylaxis Verified 12/08/23 23:32 egg AdvReac Severe Vomiting Verified 10/22/23 23:32 Penicillins AdvReac Severe VOMITING/IT Verified 10/22/23 23:32 DAVON Consultations 10/23/23 04:53 ED Decision to Admit Stat Ordered Studies 10/23/23 05:09 CT Abd and Pelvis [CT abd pelvis wo con] Urgent Hospital Course (1) Nausea & vomitin-year-old female past med history significant for type 2 diabetes, history of GERD, irritable bowel syndrome, seizure affective disorder, panic disorder, tobacco use disorder, history of pulmonary embolism who lives with her daughter ambulates with walker presents with nausea and vomiting and feeling weak. Nausea and vomiting Abdominal pain Possible acute gastroenteritis Patient presents with nausea, vomiting and generalized weakness CT abdomen and pelvis on admission personally reviewed; no bowel obstruction. Moderate amount of stool within the colon and rectum. During the hospitalization, patient was a started on clear liquid diet which was slowly advanced. She was able to tolerate normal diet without any issues. No nausea or vomiting. She was also treated with bowel regimen for the constipation. Hyponatremia, likely hypovolemic Sodium 128 on admission Sodium increased to 134 during the hospitalization with IV hydration. PT OT evaluation was done; patient was offered to go to rehab. She decline and wanted to go back home. Discharged home with instructions to follow up with PCP Please note the above document was generated using voice recognition software. It may contain grammatical, syntax or spelling errors. Any formal questions or concerns about the content, text or information contained within the body of this dictation should be directly addressed to the provider for clarification Total Time Total Time Spent Total Time Spent (In Minutes): 45 Total Time Includes: Examination of the Patient, Discharge Planning, Medication Reconciliation, Communication With Other Providers and Other Discharge Plan Discharge Items Patient Disposition: Home - Self-Care Reason For Visit: NAUSEA, WEAKNESS, HYPONATREMIA Discharge Diagnosis: Acute gastroenteritis Hyponatremia Activity: Resume your previous activity Non-emergency contact: Primary Care Provider Call non-emergency contact if: you have any medication questions and your symptoms worsen Follow-up/Referrals: Desmond Villasenor MD [Primary Care Provider] - (Date & Time 10/28/2023 2:00 PM Provider Nat Lopez PA-C Department Family Medicine [facility] ) Diet: Regular Addtl Attending Provider Instructions: You were admitted to the hospital due to acute gastroenteritis and hyponatremia. Please continue to take your medication as prescribed before. Please follow-up with your primary care doctor as scheduled. Pending Studies at Discharge: No Stand-Alone Forms: My [facility], Smoking Cessation Medications and DC Order Prescriptions: Continued benztropine 0.5 mg tablet 0.5 mg PO BID meloxicam 15 mg tablet 15 mg PO DAILY clonazepam 1 mg tablet 1 mg PO TID PRN (Reason: Anxiety) pantoprazole 40 mg tablet,delayed release (DR/EC) 40 mg PO DAILY ferrous sulfate [FeroSul] 325 mg (65 mg iron) tablet 325 mg PO Q2D divalproex 500 mg tablet extended release 24 hr 1,500 mg PO HS gabapentin 100 mg capsule 100 mg PO UD Rx Instructions: 1 cap in am and one cap at noon and two capsule at bedtime. metformin 500 mg tablet extended release 24 hr 500 mg PO BID buspirone 15 mg tablet 15 mg PO TID escitalopram oxalate 20 mg tablet 20 mg PO DAILY cholestyramine (with sugar) 4 gram powder 4 ea PO DAILY quetiapine 400 mg tablet 400 mg PO HS Creon 12,000-38,000 -60,000 unit capsule,delayed release(DR/EC) 1 cap PO AC Xarelto 20 mg tablet 20 mg PO DAILY Discharge Orders: Discharge Order (Routine); Ordered 10/25/23 Ordered By: Mynor Maya/Other Patient Handouts: Managing Type 2 Diabetes Admission Data Admit Date/Time: 10/23/23 05:08 Attending Provider: Mynor Garcia Admit Provider: Marco Antonio Tabares Primary Care Provider: Desmond Villasenor Other Providers: Marco Antonio Tabares Other Interventions: Discharge Summary Assessment (RN) Last Done: 10/25/23 10:59
== END 2023-10-25 13:33 | disposition home or self-care (01) | DRG 392 ==
LOC: ED 22:30 → 2S 10-23 05:08 → 3E 10-24 22:23

== ENCOUNTER 2024-01-10 02:06 | Inpatient (IN) ==
--- OUTSIDE RECORDS SUMMARY | 2024-01-10 02:13 | External Medical Summary | Summary of Care ---
Author Name Unknown Organization [facility] Address [address] [place] [address] Phone [phone] Care Team Providers Care Mercury Washer Name Role Phone Desmond Villasenor MD Primary Care Provider Reason for Visit * Reason Onset Date Comments Medication Problem 12/17/2023 Encounter Details Date Type Department Care Team (Late st Contact Info) Description 12/17/2023 Telephone Family Medicine [address] [phone] Desmond Villasenor MD [address] [place] [address] [place] [address] Medication Problem Allergies Active Allergy Reactions Criticality Noted Date Comments Penicillins 08/07/2005 vomiting and itchy documented as of this encounter (statuses as of 12/21/2023) Medications Medication Sig Dispensed Refills Start Date End Date Status clonazePAM 1 MG Oral Tablet (KlonoPIN) Take 1 Tablet by mouth 3 times a day as needed for Anxiety. 30 Tablet 0 11/04/2022 Active Loratadine 10 MG Oral Tablet Take 1 Tablet by mouth in the morning. 30 Tablet 11 11/04/2022 Active Benztropine Mesylate 0.5 MG Oral Tablet (Cogentin) Take 1 Tablet by mouth in the morning and 1 Tablet before bedtime. 0 11/04/2022 Active busPIRone HCl 15 MG Oral Tablet (Buspar) Take 1 Tablet by mouth in the morning and 1 Tablet at noon and 1 Tablet before bedtime. 20 Tablet 0 11/04/2022 Active Divalproex Sodium 500 MG Oral Tablet Delayed Release (Depakote DR) 3 tabs at bedtime 0 11/04/2022 Active Escitalopram Oxalate 20 MG Oral Tablet (Lexapro) Take 1 Tablet by mouth in the morning. 0 11/04/2022 Active Ferrous Sulfate 325 (65 Fe) MG Oral Tablet (Feosol) Take 1 Tablet by mouth in the morning and 1 Tablet before bedtime. 60 Tablet 11 11/04/2022 Active Gabapentin 100 MG Oral Capsule (Neurontin) 1 in am, 1 at noon and 2 at night 0 11/04/2022 Active QUEtiapine Fumarate 400 MG Oral Tablet (SEROquel) Take 1 Tablet by mouth in the morning. 90 Tablet 3 11/04/2022 Active Xarelto 20 MG Oral Tablet (Rivaroxaban) TAKE ONE TABLET BY MOUTH EVERY DAY 90 Tablet 5 04/09/2023 Active Meloxicam 15 MG Oral TabletIndications:Ge neralized osteoarthritis Take 1 Tablet by mouth in the morning. for pain.. 30 Tablet 5 07/28/2023 Active Pantoprazole Sodium 40 MG Oral Tablet Delayed Release (Protonix)Indication s:Gastroesophageal reflux disease without esophagitis Take 1 Tablet by mouth in the morning. 30 minutes before the first meal of the day. Do not crush, split or chew the tablet. 30 Tablet 5 08/02/2023 Active metFORMIN HCl ER 500 MG Oral Tablet Extended Release 24 Hour (Glucophage XR) TAKE ONE TABLET BY MOUTH TWICE DAILY 60 Tablet 5 08/24/2023 Active Cholestyramine 4 GM/DOSE Oral PowderIndications:Ir ritable bowel syndrome DISSOLVE ONE AND ONE-HALF scoops into EIGHT ounces of JUICE OR water EVERY DAY 378 g 5 11/05/2023 Active Cholestyramine 4 GM/DOSE Oral PowderIndications:Ir ritable bowel syndrome DISSOLVE ONE AND ONE-HALF scoops into EIGHT ounces of JUICE OR water EVERY DAY 378 g 1 11/09/2023 Active Creon 80711-99162 UNIT Oral Capsule Delayed Release Particles (Pancrelipase (Zxf-Zeie-Wdmu)) One capsule three times a day 90 Capsule 5 12/20/2023 Active Creon 71015-95548 UNIT Oral Capsule Delayed Release Particles (Pancrelipase (Abd-Hvhh-Xpvm)) take 1 capsule three times daily 84 Capsule 2 11/17/2022 4 Discontinue d(Refill) Creon 6000-05551 UNIT Oral Capsule Delayed Release Particles (Pancrelipase (Smm-Idvm-Rdvj)) TAKE 2 CAPSULES BY MOUTH THREE TIMES A DAY 270 Capsule 3 11/18/2023 4 Discontinue d(Medicatio n/Dose Changed) documented as of this encounter (statuses as of 12/21/2023) Active Problems Problem Noted Date Diagnosed Date Body mass index (BMI) of 45.0 to 49.9 in adult 1 Overview: Per Obesity protocol Type 2 diabetes mellitus wit h hemoglobin A1c goal of less than 8.0% 06/16/2023 Schizoaffective disorder 06/16/2023 Tobacco use disorder 06/16/2023 Gastroesophageal reflux disease without esophagi tis 06/16/2023 History of pulmonary embolism 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 0 06/16/2023 Overview: Xarelto IBS (irritable bowel syndrome) 06/16/2023 Other specified types of schizophrenia, chronic condition 08/07/2005 Panic disorder 08/07/2005 Peptic ulcer 08/07/2005 documented as of this encounter (statuses as of 12/21/2023) Social History Tobacco Use Types Packs/Day Years Used Date Smoking Tobacco: Every Day Cigarettes 1 53 Started: 1967 Smokeless Tobacco: Never Alcohol Use Standard Drinks/Week Comments No 0 (1 standard drink = 0.6 oz pur e alcohol) Sex and Gender Information Value Date Recorded Sex Assigned at Not on file Gender Identity Not on file Sexual Orientation Not on file Job Start Date Occupation Industry Not on file Not on file Not on file documented as of this encounter Miscellaneous Notes * Telephone Encounter - My [place] hair spring winder - 12/17/2023 10:18 AM EST Pharmacy calling in because theCreon 6000-07648 UNIT Oral Capsule Delayed Release Particles (Pancrelipase (Gvc-Dvap-Jctz) is no longer covered by the insurance. The [id number] is. Please send in a new prescription if appropriate. [facility] [employer] [address] [place] [id number] 12/17/2023 10:21 AM documented in this encounter Plan of Treatment Upcoming Encounters Date Type Department Care Team (Late st Contact Info) Description 01/26/2024 10:00 AM EDT Office Visit Family Medicine [address] [place] [phone] Nat Lopez PA-C [address] [place] [address] [place] [phone] Health Maintenance Due Date Last Done Comments DISCUSS TOBACCO CESSATION (REFER TO SMARTSET #3497) 1957 Pneumococcal Vaccine: 65+ Years (1 - PCV) 1963 Depression Screening 1969 Albumin/Creatinine Ratio 1975 Diabetic Eye Exam 1975 Diabetic Foot Exam 1975 Hepatitis C Screening 1975 DTaP,Tdap,and Td Vaccines (1 - Tdap) 1976 Mammogram 1997 Cologuard 2002 Colonoscopy 2002 Colorectal Cancer Screening 2002 Fecal Occult Blood Test 2002 Sigmoidoscopy 2002 LUNG CANCER SCREENING - USE SMARTSET 08219 2007 Zoster Vaccines (1 of 2) 2007 Hepatitis B (1 of 3 - Risk 3-dose series) 2017 DXA Scan 2022 COVID-19 Vaccine (2 - season) 2023 11/11/2020 Influenza Vaccine (FLU shot) (#1) 2023 HbA1c 01/26/2024 07/28/2023 GFR 07/28/2024 07/28/2023, 06/15, 06/20/2023, Additional history exists Lipid Panel 07/28/2028 07/28/2023 GARDASIL-HPV IMMUNIZATION SERIES Aged Out No longer eligible based on patient's age to complete this topic MENINGOCOCCAL (MENACTRA/MENVEO) Aged Out No longer eligible based on patient's age to complete this topic documented as of this encounter Medical Devices Not on filedocumented as of this encounter Care Teams Mercury Washer Relationship Specialty Start Date End Date Desmond Villasenor MD [address] [place] [address] [place] [id number] PCP - General Family Medicine 08/02/23 2 documented as of this encounter
--- OUTSIDE RECORDS SUMMARY | 2024-01-10 02:13 | External Medical Summary | Summary of Care ---
Author Name Unknown Organization [facility] Address [address] [place] [address] Phone [phone] Care Team Providers Care Flat Lock Operator Name Role Phone Desmond Banks MD Primary Care Provider Reason for Visit * Reason Onset Date Comments Medication Refill 11/05/2023 Encounter Details Date Type Department Care Team (Late st Contact Info) Description 11/05/2023 Refill Family Medicine [address] [place] [address] Desmond Banks MD [address] [place] [address] [place] [address] Irritable bowel syndrome Allergies Active Allergy Reactions Criticality Noted Date Comments Penicillins 08/07/2005 vomiting and itchy documented as of this encounter (statuses as of 11/09/2023) Medications Medication Sig Dispensed Refills Start Date [...] the morning. 90 Tablet 3 11/04/2022 Active Creon [id number] UNIT Oral Capsule Delayed Release Particles (Pancrelipase (Yql-Iumu-Lyqc)) take 1 capsule three times daily 84 Capsule 2 11/17/2022 Active Xarelto 20 MG Oral Tablet (Rivaroxaban) TAKE ONE TABLET BY MOUTH EVERY DAY 90 Tablet 5 04/09/2023 Active Meloxicam 15 MG Oral TabletIndications:Gen eralized osteoarthritis Take 1 Tablet by mouth in the morning. for pain.. 30 Tablet 5 07/28/2023 Active Pantoprazole Sodium 40 MG Oral Tablet Delayed Release (Protonix)Indications :Gastroesophageal reflux disease without esophagitis Take 1 Tablet by mouth in the morning. 30 minutes before the first meal of the day. Do not crush, split or chew the tablet. 30 Tablet 5 08/02/2023 Active Creon 41176-19731 UNIT Oral Capsule Delayed Release Particles (Pancrelipase (Hgf-Sqhm-Uxzw)) take 1 capsule three times daily 270 Capsule 1 08/24/2023 Active metFORMIN HCl ER 500 MG Oral Tablet Extended Release 24 Hour (Glucophage XR) TAKE ONE TABLET BY MOUTH TWICE DAILY 60 Tablet 5 08/24/2023 Active Cholestyramine 4 GM/DOSE Oral PowderIndications:Irr itable bowel syndrome DISSOLVE ONE AND ONE-HALF scoops into EIGHT ounces of JUICE OR water EVERY DAY 378 g 1 11/09/2023 Active documented as of this encounter (statuses as of 11/09/2023) Active Problems Problem Noted Date Diagnosed Date Body mass index (BMI) of 45.0 to 49.9 in adult 1 Overview: Per Obesity protocol Type 2 diabetes mellitus wit h hemoglobin A1c goal of less than 8.0% 06/16/2023 Schizoaffective disorder 06/16/2023 Tobacco use disorder 06/16/2023 Gastroesophageal reflux disease without esophagi tis 06/16/2023 History of pulmonary embolism 06/16/2023 senior living current use of anticoagulant therapy 0 06/16/2023 Overview: Xarelto IBS (irritable bowel syndrome) 06/16/2023 Other specified types of schizophrenia, chronic condition 08/07/2005 Panic disorder 08/07/2005 Peptic ulcer 08/07/2005 documented as of this encounter (statuses as of 11/09/2023) Social History Tobacco Use Types Packs/Day Years [...] encounter Miscellaneous Notes * Telephone Encounter - Desmond Banks MD - 11/09/2023 11:45 AM ESTSigned Prescriptions: Disp Refills Cholestyramine 4 GM/DOSE Oral Powder 378 g 1 Sig: DISSOLVE ONE AND ONE-HALF scoops into EIGHT ounces of JUICE OR water EVERY DAYAuthorizing Provider: DESMOND BANKS * Telephone Encounter - Brenda Workman LPN - 11/09/2023 11:31 AM EST Rx pending. Thanks. * Telephone Encounter - Matilde Fofana OSA - 11/05/2023 9:34 AM EST Patient is calling for a refill on the Cholestyramine 4 GM/DOSE Oral Powder She is completely out and out of refills. She is going away on 11-06-2023 and is asking for this to be done today. Patient uses the [facility]. Please call her regarding this. Thank you. documented in this encounter Plan of Treatment Upcoming Encounters Date Type Department Care Team (Late st Contact Info) Description 01/26/2024 10:00 AM EDT Office Visit Family Medicine [address] [place] [address] Nat Lopez PA-C [address] [place] [address] [place] [phone] Health Maintenance Due Date Last Done Comments DISCUSS TOBACCO CESSATION (REFER TO SMARTSET #2062) 1957 Pneumococcal Vaccine: 65+ Years (1 - PCV) 1963 Depression Screening 1969 Albumin/Creatinine Ratio 1975 Diabetic Eye Exam 1975 Diabetic Foot Exam 1975 Hepatitis C Screening 1975 DTaP,Tdap,and Td Vaccines (1 - Tdap) 1976 Mammogram 1997 Cologuard 2002 Colonoscopy 2002 Colorectal Cancer Screening 2002 Fecal Occult Blood Test 2002 Sigmoidoscopy 2002 LUNG CANCER SCREENING - USE SMARTSET 46170 2007 Zoster Vaccines (1 of 2) 2007 [...] Not on filedocumented as of this encounter Visit Diagnoses Diagnosis Irritable bowel syndrome documented in this encounter Care Teams Flat Lock Operator Relationship Specialty Start Date End Date Desmond Banks MD [address] [place] [address] [place] [phone] PCP - General Family Medicine 08/02/23 documented as of this encounter
--- OUTSIDE RECORDS SUMMARY | 2024-01-10 02:13 | External Medical Summary | Summary of Care ---
Author Name Unknown Organization [facility] Address [address] [place] [address] Phone [phone] Care Team Providers Care Appliance Technician Name Role Phone Desmond Banks MD Primary Care Provider Reason for Visit * Reason Comments eRx-Medication Refill Encounter Details Date Type Department Care Team (Late st Contact Info) Description 11/17/2023 Refill Family Medicine [address] [phone] Desmond Banks MD [address] [place] [address] [place] [address] Allergies Active Allergy Reactions Criticality Noted Date Comments Penicillins 08/07/2005 vomiting and itchy documented as of this encounter (statuses as of 11/18/2023) Medications Medication Sig Dispensed Refills Start Date [...] morning. 90 Tablet 3 11/04/2022 Active Creon 00278-39768 UNIT Oral Capsule Delayed Release Particles (Pancrelipase (Prm-Oahv-Kzmq)) take 1 capsule three times daily 84 Capsule 2 11/17/2022 Active Xarelto 20 MG Oral Tablet (Rivaroxaban) TAKE ONE TABLET BY MOUTH EVERY DAY 90 Tablet 5 04/09/2023 Active Meloxicam 15 MG Oral TabletIndications:G eneralized osteoarthritis Take 1 Tablet by mouth in the morning. for pain.. 30 Tablet 5 07/28/2023 Active Pantoprazole Sodium 40 MG Oral Tablet Delayed Release (Protonix)Indicatio ns:Gastroesophageal reflux disease without esophagitis Take 1 Tablet by mouth in the morning. 30 minutes before the first meal of the day. Do not crush, split or chew the tablet. 30 Tablet 5 08/02/2023 Active metFORMIN HCl ER 500 MG Oral Tablet Extended Release 24 Hour (Glucophage XR) TAKE ONE TABLET BY MOUTH TWICE DAILY 60 Tablet 5 08/24/2023 Active Cholestyramine 4 GM/DOSE Oral PowderIndications:I rritable bowel syndrome DISSOLVE ONE AND ONE-HALF scoops into EIGHT ounces of JUICE OR water EVERY DAY 378 g 5 11/05/2023 Active Cholestyramine 4 GM/DOSE Oral PowderIndications:I rritable bowel syndrome DISSOLVE ONE AND ONE-HALF scoops into EIGHT ounces of JUICE OR water EVERY DAY 378 g 1 11/09/2023 Active Creon 6000-37404 UNIT Oral Capsule Delayed Release Particles (Pancrelipase (Ecj-Ftap-Kojj)) TAKE 2 CAPSULES BY MOUTH THREE TIMES A DAY 270 Capsule 3 11/18/2023 Active Creon 59487-37464 UNIT Oral Capsule Delayed Release Particles (Pancrelipase (Lac-Vqyh-Aqnk)) take 1 capsule three times daily 270 Capsule 1 08/24/2023 11/18/19 24 Discontinued documented as of this encounter (statuses as of 11/18/2023) Active Problems Problem Noted Date Diagnosed Date Body mass index (BMI) of 45.0 to 49.9 in adult 1 Overview: Per Obesity protocol Type 2 diabetes mellitus wit h hemoglobin A1c goal of less than 8.0% 06/16/2023 Schizoaffective disorder 06/16/2023 Tobacco use disorder 06/16/2023 Gastroesophageal reflux disease without esophagi tis 06/16/2023 History of pulmonary embolism 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 0 06/16/2023 Overview: Xarelto IBS (irritable bowel syndrome) 06/16/2023 Other specified types of schizophrenia, chronic condition 08/07/2005 Panic disorder 08/07/2005 Peptic ulcer 08/07/2005 documented as of this encounter (statuses as of 11/18/2023) Social History Tobacco Use Types Packs/Day Years [...] Telephone Encounter - Desmond Banks MD - 11/18/2023 4:25 PM ESTSigned Prescriptions: Disp Refills Creon [id number] UNIT Oral Capsule Delayed*270 Ca*3 Sig: TAKE 2 CAPSULES BY MOUTH THREE TIMES A DAY Authorizing Provider: DESMOND BANKS * Telephone Encounter - Rena Broussard RN - 11/18/2023 4:12 PM ESTPending Prescriptions: Disp Refills Creon [id number] UNIT Oral Capsule Delayed*270 Ca*3 Sig: TAKE 2 CAPSULES BY MOUTH THREE TIMES A DAY * Telephone Encounter - Rena Broussard RN - 11/18/2023 4:12 PM EST Pending Prescriptions: Disp Refills Creon [id number] UNIT Oral Capsule Delaye*270 Ca*1 Sig: TAKE 2 CAPSULES BY MOUTH THREE TIMES A DAY Last Visit: 07/28/2023 (in office), Visit date not found (telemedicine) Next Visit: 01/26/2024 Last date the medication was ordered: 08/2023 Patient Active Problem List Diagnosis Code Other specified types of schizophrenia, chronic condition F20.89 Panic disorder F41.0 Peptic ulcer K27.9 Type 2 diabetes mellitus with hemoglobin A1c goal of less than 8.0% ([facility]) E11.9 Schizoaffective disorder ([facility]) F25.9 Tobacco use disorder F17.200 Gastroesophageal reflux disease without esophagitis K21.9 History of pulmonary embolism Z86.711 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 Z79.01 IBS (irritable bowel syndrome) K58.9 Body mass index (BMI) of 45.0 to 49.9 in adult ([facility]) Z68.42 Labs: Lab Results Component Value Date/Time CREATININE - [facility] 0.8 07/28/2023 11:44 AM CREATININE - [facility] 1.2 08/07/2005 03:51 PM Lab Results Component Value Date/Time POTASSIUM - [facility] 4.7 07/28/2023 11:44 AM POTASSIUM - [facility] 4.2 08/07/2005 03:51 PM Lab Results Component Value Date/Time TSH - [facility] 1.64 08/07/2005 03:51 PM Lab Results Component Value Date/Time LDL CHOLESTEROL (DIRECT MEASURE) - [facility] 106 07/28/2023 11:44 AM Lab Results Component Value Date/Time ALT - [facility] 12 07/28/2023 11:44 AM ALT - [facility] 21 08/07/2005 03:51 PM Hemoglobin AIC Results: Lab Results Component Value Date/Time HEMOGLOBIN A1C - [facility] 6.7 (H) 07/28/2023 11:44 AM * Telephone Encounter - Db Bobby - 11/18/2023 3:20 PM ESTPending Prescriptions: Disp Refills Creon [id number] UNIT Oral Capsule Delayed*270 Ca*1 Sig: TAKE 2CAPSULES BY MOUTH THREE TIMES A DAY documented in this encounter Plan of Treatment Upcoming Encounters Date Type Department Care Team (Late st Contact Info) Description 01/26/2024 10:00 AM EDT Office Visit Family Medicine [address] [phone] Nat Lopez PA-C [address] [place] [address] [place] [phone] Health Maintenance Due Date Last Done Comments DISCUSS TOBACCO CESSATION (REFER TO SMARTSET #8595) 1957 Pneumococcal Vaccine: 65+ Years (1 - PCV) 1963 Depression Screening 1969 Albumin/Creatinine Ratio 1975 Diabetic Eye Exam 1975 Diabetic Foot Exam 1975 Hepatitis C Screening 1975 DTaP,Tdap,and Td Vaccines (1 - Tdap) 1976 Mammogram 1997 Cologuard 2002 Colonoscopy 2002 Colorectal Cancer Screening 2002 Fecal Occult Blood Test 2002 Sigmoidoscopy 2002 LUNG CANCER SCREENING - USE SMARTSET 21286 2007 Zoster Vaccines (1 of 2) 2007 [...] filedocumented as of this encounter Care Teams Appliance Technician Relationship Specialty Start Date End Date Desmond Banks MD [address] [place] [address] [place] [id number] PCP - General Family Medicine 08/02/23 documented as of this encounter
--- OUTSIDE RECORDS SUMMARY | 2024-01-10 02:13 | External Medical Summary | Summary of Care ---
Author Name Unknown Organization [facility] Address [address] [place] [address] Phone [phone] Care Team Providers Care Landscaping Manager Name Role Phone Desmond Villasenor MD Primary Care Provider Reason for Visit * Reason Onset Date Comments Medication Refill 09/03/2023 Encounter Details Date Type Department Care Team (Late st Contact Info) Description 09/03/2023 Refill Family Medicine [address] [place] [phone] Desmond Villasenor MD [address] [place] [address] [place] [address] Allergies Active Allergy Reactions Criticality Noted Date Comments Penicillins 08/07/2005 vomiting and itchy documented as of this encounter (statuses as of 11/30/2023) Medications Medication Sig Dispensed Refills Start Date [...] morning. 90 Tablet 3 11/04/2022 Active Creon 30567-80344 UNIT Oral Capsule Delayed Release Particles (Pancrelipase (Kxi-Njnx-Vdfl)) take 1 capsule three times daily 84 [...] TWICE DAILY 60 Tablet 5 08/24/2023 Active Creon 56388-61559 UNIT Oral Capsule Delayed Release Particles (Pancrelipase (Flu-Ahby-Nbfy)) take 1 capsule three times daily 270 Capsule 1 08/24/2023 11/18/19 24 Discontinued Cholestyramine 4 GM/DOSE Oral PowderIndications:I rritable bowel syndrome DISSOLVE ONE AND ONE-HALF scoops into EIGHT ounces of JUICE OR water EVERY DAY 378 g 1 09/02/2023 11/05/20 23 Discontinued documented as of this encounter (statuses as of 11/30/2023) Active Problems Problem Noted Date Diagnosed Date Body mass index (BMI) of 45.0 to 49.9 in adult 1 Overview: Per Obesity protocol Type 2 diabetes mellitus wit h hemoglobin A1c goal of less than 8.0% 06/16/2023 Schizoaffective disorder 06/16/2023 Tobacco use disorder 06/16/2023 Gastroesophageal reflux disease without esophagi tis 06/16/2023 History of pulmonary embolism 06/16/2023 assisted current use of anticoagulant therapy 0 06/16/2023 Overview: Xarelto IBS (irritable bowel syndrome) 06/16/2023 Other specified types of schizophrenia, chronic condition 08/07/2005 Panic disorder 08/07/2005 Peptic ulcer 08/07/2005 documented as of this encounter (statuses as of 11/30/2023) Social History Tobacco Use Types Packs/Day Years [...] encounter Miscellaneous Notes * Telephone Encounter - Jacey Juan CPhT - 09/03/2023 8:37 AM EDT Pt calling to request Cholestyramine 4 GM/DOSE Oral Powder . Informed pt that RX is available at their pharmacy. Pt verbalized understanding and stated they will check with their pharmacy regarding this medication. Thank you, Jacey Juan CPhT Supervisor [employer] [facility] 09/03/2023,8:37 AM documented in this encounter Plan of Treatment Upcoming Encounters Date Type Department Care Team (Late st Contact Info) Description 01/26/2024 10:00 AM EDT Office Visit Family Medicine [address] [place] [phone] Nat Lopez PA-C [address] [place] [address] [place] [phone] Health Maintenance Due Date Last Done Comments DISCUSS TOBACCO CESSATION (REFER TO SMARTSET #2243) 1957 Pneumococcal Vaccine: 65+ Years (1 - PCV) 1963 Depression Screening 1969 Albumin/Creatinine Ratio 1975 Diabetic Eye Exam 1975 Diabetic Foot Exam 1975 Hepatitis C Screening 1975 DTaP,Tdap,and Td Vaccines (1 - Tdap) 1976 Mammogram 1997 Cologuard 2002 Colonoscopy 2002 Colorectal Cancer Screening 2002 Fecal Occult Blood Test 2002 Sigmoidoscopy 2002 LUNG CANCER SCREENING - USE SMARTSET 39024 2007 Zoster Vaccines (1 of 2) 2007 [...] filedocumented as of this encounter Care Teams Landscaping Manager Relationship Specialty Start Date End Date Desmond Villasenor MD [address] [place] [address] [place] [address] PCP - General Family Medicine 08/02/23 documented as of this encounter
[2024-01-10 02:27] LABS: Hematocrit (blood only) 34.1 % (37.0-47.0); Hemoglobin 11.6 g/dl (12.0-16.0); Mean Corpuscular Volume 79.7 fL (80.0-100.0); Red Blood Count 4.28 M/uL (4.20-5.40); White Blood Count 6.22 K/ul (4.8-10.8)
[2024-01-10 02:28] LABS: Basophils # (auto) 0.04 K/uL (0.00-0.20); Basophils % (auto) 0.6 %; Eosinophils # (auto) 0.08 K/uL (0.00-0.50); Eosinophils % (auto) 1.3 %; Immature Granulocytes # (auto) 0.05 K/uL (0.01-0.20); Immature Granulocytes % (auto) 0.8 %; Lymphocytes # (auto) 2.08 K/uL (1.20-3.40); Lymphocytes % (auto) 33.4 %; Mean Corpuscular Hemoglobin 27.1 pg (25.0-34.0); Mean Platelet Volume 8.4 fL (9.4-12.4); Monocytes # (auto) 0.58 K/uL (0.11-0.59); Monocytes % (auto) 9.3 %; Neutrophils # (auto) 3.39 K/uL (1.40-6.50); Neutrophils % (auto) 54.6 %; Platelet Count 280 K/uL (130-400); RDW Coefficient of Variation 13.2 % (11.5-14.5); RDW Standard Deviation 37.7 fL (36.4-46.3)
[2024-01-10] MEDS: SODIUM CHLORIDE 0.9% 1,000 ML IV SCH ×2 (02:42→03:01)
[2024-01-10 02:44] LABS: Albumin Globulin Ratio 1.1 (0.9-2); Albumin Level 3.5 gm/dl (3.4-5.0); BUN Creatinine Ratio 8.2 (10-20); Bilirubin,Total 0.2 mg/dl (0.2-1.0); Calcium 9.3 mg/dl (8.6-10.3); Creatinine Clr Calc Pharmacy 86.5 ml/min; Est GFR (African American) 99.5 ml/min; Est GFR (Non-African American) 85.8 ml/min; Globulin 3.2 gm/dl (2.5-4.0); Magnesium 1.3 mg/dl (1.7-2.4); Potassium 4.6 mmol/L (3.5-5.1); Total Protein 6.7 gm/dl (6.0-8.3)
[2024-01-10 02:50] LABS: Troponin I High Sensitivity 3.4 pg/ml (0-14)
[2024-01-10 02:56] LABS: INR 1.1 (0.9-1.1); Prothrombin Time 11.8 Seconds (9.0-12.0)
[2024-01-10 02:59] LABS: Thyroid Stimulating Hormone 1.871 uIu/ml (0.300-4.500)
[2024-01-10] MEDS: MAGNESIUM SULFATE / D5W 1 GM/100 ML BAG IV SCH ×2 (03:01→12:35)
--- NOTE | 2024-01-10 03:14 | Emergency Department Note ---
Impression & Plan Chest pain, Arm pain, left, Multiple falls, Hyponatremia, Hypomagnesemia ED Provider Note ED Provider Note NAME: SID JAVIER AGE:68 SEX: Female : 1955 ARRIVES VIA: EMS INFORMANT: Patient ED PROVIDER(s): Zandra Avelar DO CHIEF COMPLAINT: Left arm pain, chest pain, fall HPI: This is a 68-year-old female presents emerged part via EMS due to concern for chest pain and left arm pain. Patient does note a fall earlier today prior to the symptoms beginning. Patient with a history of recent multiple falls per her report including falling into an entertainment center 3 days ago. Patient is well-known to the emergency department and to EMS. EMS reports they were called to her place to help her up from the fall earlier today but she did not have chest pain at that time. When she called for EMS again, she stated that the chest pain began shortly after the first EMS crew had left. Patient is a non-smoker. Patient denies striking her head or losing consciousness. Patient complains of pain in her left arm, worse with movement. Patient denies any history of heart problems. Patient denies any worsening cough or increased difficulty breathing. PAST MEDICAL HISTORY:See Below PAST SURGICAL HISTORY:See Below FAMILY HISTORY:See Below SOCIAL HISTORY:See Below HOME MEDICATIONS:See Below ALLERGIES:See Below VITALS:See Below PHYSICAL EXAMINATION: GENERAL: alert, unwell appearing, well nourished, no distress, non-toxic, smells of tobacco smoke HEAD: nc/at EYE EXAM: normal conjunctiva, PERRL and EOM's grossly intact OROPHARYNX: no exudate, no erythema, lips, buccal mucosa, and tongue normal and mucous membranes are dry NECK: supple, no nuchal rigidity, no adenopathy, non-tender LUNGS: Clear to auscultation. Normal chest wall mechanics, no w/r/r HEART: no murmurs, S1 normal and S2 normal ABDOMEN: abdomen soft, non-tender, normo-active bowel sounds, no masses, no rebound or guarding. PELVIS: stable to compression, nontender with palpation BACK: Back is symmetrical on inspection and there is no deformity, no midline tenderness, no CVA tenderness. SKIN: no rashes, petechiae, orbruising UPPER EXTREMITIES: upper extremities are grossly normal. FROM RUE, nml pulses b/l. No obvious trauma or deformity, decreased range of motion to the LUE secondary to pain, no reproducible pain with palpation; yellow discoloration of fingers, right greater than left consistent with smoking history LOWER EXTREMITIES: No pitting edema. FROM, nml pulses b/l. No evidence of trauma or deformity NEURO EXAM: Normal sensorium, cranial nerves II-XII grossly intact, normal speech, no facial droop,nogross weakness of arms, no gross weakness of legs. Gross sensation intact. No ataxia. Vital Signs: reviewed and remarkable Differential Diagnosis: acute coronary syndrome, pericarditis, pulmonary embolus, aortic dissection, pneumonia, pneumothorax, musculoskeletal pain, shingles, GERD, GI bleed, as well as others were considered MEDICAL DECISION MAKING: This is a 68-year-old female presents emerged primary complaining of chest pain and left upper extremity pain. Patient also admits to several recent falls. Labs drawn and sent, IV established, EKG and several x-rays performed at bedside and interpreted by me and patient monitored on telemetry. Patient started on gentle IV fluid hydration as she appears clinically dehydrated and was given IV Tylenol for pain. Patient sent for CT of the head and cervical spine due to reported falls additionally. No other obvious deformities noted to extremities, no obvious trauma to head or trunk. Patient is anticoagulated. Patient noted to have a right bundle branch block however this is similar compared to prior. Her troponin was negative after several hours of ongoing symptoms. Patient noted to have significant hyponatremia and hypomagnesemia. She was started on IV magnesium repletion. Due to concern for symptomatic hyponatremia and hypomagnesemia likely contributing to her falls, case discussed with hospitalist team for additional evaluation and management. I have a low suspicion for occult ACS at this time. I have a low suspicion for occult traumatic injury despite use of anticoagulation. Consultation(s): 0558: Discussed with Dr. Nielsen, for additional evaluation and mgmt. ER Treatment Provided: See below Diagnostics Interpreted By Me: -ECG: Sinus tachycardia at 109, rightward axis, right bundle branch block, nonspecific ST/T wave changes, PVC noted -Cardiac Monitoring: An order was placed for continuous cardiac monitoring. The monitor shows a rate of 98 with normal sinus rhythm. -Laboratory studies: As stated above and show below. -Imaging studies: X-ray Chest: A single view study of the chest was reviewed and was negative for cardiomegaly, focal infiltrate, effusion, pulmonary edema, or wide mediastinum. No obvious rib fracture or pneumothorax. X-ray pelvis: No obvious fracture or dislocation X-ray left shoulder: Slight subluxation noted at the left shoulder although similar compared to prior, no obvious fracture Triage Nursing Note Reviewed Prior/Outside Records Reviewed Past Med/Surg History Medical History Weakness Intractable nausea and vomiting Pulmonary embolism Enteritis due to Neversink virus Chronic diarrhea Folate deficiency Hypothyroid Generalized weakness Restless leg Rectal bleeding Smoking Aspiration pneumonia Hyperparathyroidism Iron deficiency anemia History of pulmonary embolism Anemia Irritable bowel syndrome Anxiety and depression Schizoaffective disorder GERD (gastroesophageal reflux disease) Diabetes Arthritis Surgical History History of hysterectomy History of cholecystectomy History of section x2 Family History Mother Diabetes Sister Diabetes Denies family history of Inflammatory bowel disease Social History Smoking Status: Current every day smoker Tobacco Type: Cigarettes Cigarettes Per Day: 40+; Second Hand Exposure: Yes; Do You Dip or Chew Tobacco: No; Hx Alcohol Use: No Hx Substance Use: No Preferred Language: Samoan Communication Ability: Effective Reel Stripper Required: No Beliefs That Will Affect Care: None marital status: Current Living Situation: Family Current Living Situation Comment: Lives with daughter. How many Children do You have: 2 Feels Safe at Home: Yes Assistive Devices: Walker and Wheelchair Allergies Allergies Allergy/AdvReac Type Severity Reaction Status Date / Time bee venom protein (honey bee) Allergy Severe Anaphylaxis Verified 01/10/24 02:33 egg AdvReac Severe Vomiting Verified 01/10/24 02:33 Penicillins AdvReac Severe VOMITING/IT Verified 01/10/24 02:33 DAVON Home Meds Home Medications Medication Instructions Recorded Confirmed benztropine 0.5 mg tablet 0.5 mg PO BID 10/23/23 01/10/24 buspirone 15 mg tablet 15 mg PO TID 10/23/23 01/10/24 cholestyramine (with sugar) 4 gram 4 ea PO DAILY 10/23/23 01/10/24 oral powder clonazepam 1 mg tablet 1 mg PO TID PRN Anxiety 10/23/23 01/10/24 divalproex 500 mg tablet,extended 1,500 mg PO HS 10/23/23 01/10/24 release 24 hr escitalopram oxalate 20 mg tablet 20 mg PO DAILY 10/23/23 01/10/24 gabapentin 100 mg capsule See Rx Instructions .Route .COMPLEX 10/23/23 01/10/24 ycdxit-[id number] 1 cap PO AC 10/23/23 01/10/24 12,000-38,000-60,000 unit capsule,delayed rel (Creon) metformin 500 mg tablet,extended 500 mg PO BID 10/23/23 01/10/24 release 24 hr pantoprazole 40 mg tablet,delayed 40 mg PO DAILY 10/23/23 01/10/24 release quetiapine 400 mg tablet 400 mg PO HS 10/23/23 01/10/24 rivaroxaban 20 mg tablet (Xarelto) 20 mg PO DAILY 10/23/23 01/10/24 ropinirole 0.5 mg tablet 0.5 mg PO HS 01/10/24 01/10/24 Results & Data (ED) Vital Signs Vital Signs - 24 hr 01/10/24 02:10 01/10/24 02:12 01/10/24 03:39 Temperature 36.7 C Temperature Source Oral Pulse Rate 102 H 103 H Pulse Rate [Right] 100 H Pulse Rhythm [Right] Pulse Strength [Right] Respiratory Rate 18 18 Respiratory Effort / Characteristics Non-Labored Spontaneous Respiratory Depth Normal Blood Pressure 160/79 H Blood Pressure [Right Arm] 166/85 H Blood Pressure Mean 106 Blood Pressure Mean [Right Arm] 112 Blood Pressure Position [Right Arm] Pulse Oximetry 96 95 Oxygen Delivery Method Room Air Room Air Sepsis Recent Fever Within 48 Hours No Sepsis New/Unexplained Change in Mental Status No Sepsis Action Taken by Nursing No Action Required 01/10/24 05:08 01/10/24 05:44 01/10/24 06:05 Temperature Temperature Source Pulse Rate 97 H Pulse Rate [Right] 102 H 96 H Pulse Rhythm [Right] Pulse Strength [Right] Respiratory Rate 16 16 Respiratory Effort / Characteristics Non-Labored Spontaneous Non-Labored Spontaneous Respiratory Depth Normal Normal Blood Pressure Blood Pressure [Right Arm] 154/113 H 170/102 H Blood Pressure Mean Blood Pressure Mean [Right Arm] 126 124 Blood Pressure Position [Right Arm] Lying Pulse Oximetry 95 93 Oxygen Delivery Method Room Air Room Air Sepsis Recent Fever Within 48 Hours Sepsis New/Unexplained Change in Mental Status Sepsis Action Taken by Nursing 01/10/24 06:33 01/10/24 06:36 01/10/24 07:00 Temperature 36.7 C Temperature Source Oral Pulse Rate 97 H 96 H Pulse Rate [Right] 82 Pulse Rhythm [Right] Regular Pulse Strength [Right] Normal Respiratory Rate 18 18 Respiratory Effort / Characteristics Non-Labored Spontaneous Respiratory Depth Normal Blood Pressure 154/97 H Blood Pressure [Right Arm] 131/82 Blood Pressure Mean Blood Pressure Mean [Right Arm] 98 Blood Pressure Position [Right Arm] Lying Pulse Oximetry 94 94 Oxygen Delivery Method Room Air Room Air Sepsis Recent Fever Within 48 Hours Sepsis New/Unexplained Change in Mental Status Sepsis Action Taken by Nursing 01/10/24 08:00 Temperature Temperature Source Pulse Rate 86 Pulse Rate [Right] Pulse Rhythm [Right] Pulse Strength [Right] Respiratory Rate Respiratory Effort / Characteristics Respiratory Depth Blood Pressure Blood Pressure [Right Arm] Blood Pressure Mean Blood Pressure Mean [Right Arm] Blood Pressure Position [Right Arm] Pulse Oximetry Oxygen Delivery Method Sepsis Recent Fever Within 48 Hours Sepsis New/Unexplained Change in Mental Status Sepsis Action Taken by Nursing Laboratory Data 01/10/24 02:15 01/10/24 07:16 Lab Results 01/10/24 01/10/24 01/10/24 Range/Units 02:15 05:06 07:16 WBC 6.22 (4.8-10.8) K/ul RBC 4.28 (4.20-5.40) M/uL Hgb 11.6 L (12.0-16.0) g/dl Hct 34.1 L (37.0-47.0) % MCV 79.7 L (80.0-100.0) fL MCH 27.1 (25.0-34.0) pg MCHC 34.0 (32.0-36.0) g/dL RDW Std Deviation 37.7 (36.4-46.3) fL RDW Coeff of [place] 13.2 (11.5-14.5) % Plt Count 280 (130-400) K/uL MPV 8.4 L (9.4-12.4) fL Immature Gran % (Auto) 0.8 % Neut % (Auto) 54.6 % Lymph % (Auto) 33.4 % [place] % (Auto) 9.3 % Eos % (Auto) 1.3 % Baso % (Auto) 0.6 % Neut # (Auto) 3.39 (1.40-6.50) K/uL Lymph # (Auto) 2.08 (1.20-3.40) K/uL [place] # (Auto) 0.58 (0.11-0.59) K/uL Eos # (Auto) 0.08 (0.00-0.50) K/uL Baso # (Auto) 0.04 (0.00-0.20) K/uL Immature Gran # (Auto) 0.05 (0.01-0.20) K/uL PT 11.8 (9.0-12.0) Seconds INR 1.1 (0.9-1.1) VBG pH (7.36-7.41) VBG pCO2 (38-50) mmHg VBG pO2 mmHg VBG HCO3 mmol/L VBG O2 Saturation % VBG Base Excess mEq/L Sodium 121 L 122 L (136-145) mmol/L Potassium 4.6 (3.5-5.1) mmol/L Chloride 91 L (98-107) mmol/L Carbon Dioxide 23 (21-32) mmol/L Anion Gap 7 (3-11) BUN 6 (6-23) mg/dl Creatinine 0.73 (0.6-1.2) mg/dl Est Cr Clr Drug Dosing 86.5 ml/min Est GFR ( Amer) 99.5 ml/min Est GFR (Non-Af Amer) 85.8 ml/min BUN/Creatinine Ratio 8.2 L (10-20) Glucose 160 H (70-99(Fasting)) mg/dl Osmolality 258 L (280-300) mOsm/kg Calcium 9.3 (8.6-10.3) mg/dl Magnesium 1.3 L (1.7-2.4) mg/dl Total Bilirubin 0.2 (0.2-1.0) mg/dl AST 10 L (13-39) U/L ALT 5 L (7-52) U/L Alkaline Phosphatase 61 (34-104) U/L Ammonia (18-72) umol/L Total Creatine Kinase 68 (26-192) U/L Troponin I High Sens 3.4 (0-14) pg/ml Total Protein 6.7 (6.0-8.3) gm/dl Albumin 3.5 (3.4-5.0) gm/dl Globulin 3.2 (2.5-4.0) gm/dl Albumin/Globulin Ratio 1.1 (0.9-2) Lipase 22 (11-82) U/L TSH 1.871 (0.300-4.500) uIu/ml Urine Color Yellow Urine Appearance Clear (Clear) Urine pH 7.0 (4.5-7.5) Ur Specific [place] 1.006 (1.000-1.030) Urine Protein Negative (Negative) Urine Glucose (UA) Negative (Negative) Urine Ketones Negative (Negative) Urine Blood Negative (Negative) Urine Nitrite Negative (Negative) Urine Bilirubin Negative (Negative) Urine Urobilinogen Negative (Negative) Ur Leukocyte Esterase Negative (Negative) Urine Osmolality 163 L (500-800) mOsm/kg Ur Random Sodium 46 mmol/L 01/10/24 01/10/24 Range/Units 07:20 07:21 WBC (4.8-10.8) K/ul RBC (4.20-5.40) M/uL Hgb (12.0-16.0) g/dl Hct (37.0-47.0) % MCV (80.0-100.0) fL MCH (25.0-34.0) pg MCHC (32.0-36.0) g/dL RDW Std Deviation (36.4-46.3) fL RDW Coeff of [place] (11.5-14.5) % Plt Count (130-400) K/uL MPV (9.4-12.4) fL Immature Gran % (Auto) % Neut % (Auto) % Lymph % (Auto) % [place] % (Auto) % Eos % (Auto) % Baso % (Auto) % Neut # (Auto) (1.40-6.50) K/uL Lymph # (Auto) (1.20-3.40) K/uL [place] # (Auto) (0.11-0.59) K/uL Eos # (Auto) (0.00-0.50) K/uL Baso # (Auto) (0.00-0.20) K/uL Immature Gran # (Auto) (0.01-0.20) K/uL PT (9.0-12.0) Seconds INR (0.9-1.1) VBG pH 7.36 (7.36-7.41) VBG pCO2 45 (38-50) mmHg VBG pO2 40 mmHg VBG HCO3 25 mmol/L VBG O2 Saturation 72.8 % VBG Base Excess -0.4 mEq/L Sodium (136-145) mmol/L Potassium (3.5-5.1) mmol/L Chloride (98-107) mmol/L Carbon Dioxide (21-32) mmol/L Anion Gap (3-11) BUN (6-23) mg/dl Creatinine (0.6-1.2) mg/dl Est Cr Clr Drug Dosing ml/min Est GFR ( Amer) ml/min Est GFR (Non-Af Amer) ml/min BUN/Creatinine Ratio (10-20) Glucose (70-99(Fasting)) mg/dl Osmolality (280-300) mOsm/kg Calcium (8.6-10.3) mg/dl Magnesium (1.7-2.4) mg/dl Total Bilirubin (0.2-1.0) mg/dl AST (13-39) U/L ALT (7-52) U/L Alkaline Phosphatase (34-104) U/L Ammonia 30.0 (18-72) umol/L Total Creatine Kinase (26-192) U/L Troponin I High Sens (0-14) pg/ml Total Protein (6.0-8.3) gm/dl Albumin (3.4-5.0) gm/dl Globulin (2.5-4.0) gm/dl Albumin/Globulin Ratio (0.9-2) Lipase (11-82) U/L TSH (0.300-4.500) uIu/ml Urine Color Urine Appearance (Clear) Urine pH (4.5-7.5) Ur Specific [place] (1.000-1.030) Urine Protein (Negative) Urine Glucose (UA) (Negative) Urine Ketones (Negative) Urine Blood (Negative) Urine Nitrite (Negative) Urine Bilirubin (Negative) Urine Urobilinogen (Negative) Ur Leukocyte Esterase (Negative) Urine Osmolality (500-800) mOsm/kg Ur Random Sodium mmol/L Administered Medications Discontinued Medications Sodium Chloride (Nss) 1,000 mls @ 125 mls/hr IV .Q8H MARY Stop: 02/09/24 02:14 Last Infusion: 01/10/24 02:56 Dose: Infused Documented By: Admin: 01/10/24 02:42 Dose: 125 mls/hr Documented By: MERCY Magnesium Sulfate/Dextrose (Magnesium Sulfate / D5w) 1 gm in 100 mls @ 100 mls/hr IV Q1H MARY Stop: 01/10/24 04:49 Last Infusion: 01/10/24 05:04 Dose: Infused Documented By: Admin: 01/10/24 03:58 Dose: 100 mls/hr Documented By: Infusion: 01/10/24 03:57 Dose: Infused Documented By: Admin: 01/10/24 03:01 Dose: 100 mls/hr Documented By: MERCY Sodium Chloride (Nss) 1,000 mls @ 80 mls/hr IV .[id number] [facility] Stop: 02/09/24 02:59 Last Infusion: 01/10/24 06:46 Dose: Infused Documented By: Infusion: 01/10/24 05:49 Dose: 0 mls/hr Documented By: Admin: 01/10/24 03:01 Dose: 80 mls/hr Documented By: MERCY Acetaminophen (Ofirmev) 1,000 mg in 100 mls @ 400 mls/hr IV NOW STA Stop: 01/10/24 03:47 Last Infusion: 01/10/24 03:53 Dose: Infused Documented By: Admin: 01/10/24 03:36 Dose: 400 mls/hr Documented By: ELADIO Magnesium Sulfate/Dextrose (Magnesium Sulfate / D5w) 1 gm in 100 mls @ 50 mls/hr IV ONE ONE Stop: 01/10/24 07:44 Last Admin: 01/10/24 05:31 Dose: 50 mls/hr Documented By: ELADIO Metoprolol Tartrate (Metoprolol Tartrate 1 Mg/Ml Vial) 2.5 mg IV NOW STA Stop: 01/10/24 06:04 Last Admin: 01/10/24 06:33 Dose: 2.5 mg Documented By: Imaging Data Radiologist's Impression: Cervical Spine CT 01/10/24 02:13 Exam(s): CT C SPINE EXAM: CT Cervical Spine Without Intravenous Contrast CLINICAL HISTORY: Reason for exam: trauma. TECHNIQUE: Axial computed tomography images of the cervical spine without intravenous contrast. Automated exposure control was utilized for the study. A dose lowering technique was utilized adhering to the principles of ALARA. COMPARISON: Comparison made to prior CT scan of cervical spine from July 10, 2023. FINDINGS: Vertebrae: Unremarkable. No acute fracture. Discs/spinal canal/neural foramina: No acute findings. No spinal canal stenosis. Soft tissues: Mosaic pattern of pulmonary opacities at the lung apices concerning for small airways disease and bronchitis. Tiny mucus impacted bronchus in the right lung apex. Right thyroid nodule. IMPRESSION: No evidence of acute cervical spine pathology. Electronically signed by: Gem Sauer MD 01/10/24 05:20 AM Chest X-Ray 01/10/24 02:13 XR chest 1V portable CLINICAL HISTORY: trauma COMPARISON STUDY: Chest radiograph October 03, 2023. FINDINGS: Lung volumes are normal. Lungs are clear. There is no pneumothorax or pleural effusion. Cardiac size is stable. Mediastinal contours are normal. There is no evidence for pulmonary edema. IMPRESSION: No acute cardiopulmonary findings. ACT 112: Negative or not required by law. Electronically signed by: Bryn East M.D. 01/10/2024 7:[address] 01/10/24 02:13 Exam(s): CT HEAD Without Contrast EXAM: CT Head Without Intravenous Contrast CLINICAL HISTORY: Reason for exam: trauma. TECHNIQUE: Axial computed tomography images of the head/brain without intravenous contrast. Automated exposure control was utilized for the study. A dose lowering technique was utilized adhering to the principles of ALARA. COMPARISON: Comparison made to prior head CT from October 03, 2023. FINDINGS: Brain: Unremarkable. No hemorrhage. No significant white matter disease. No edema. Ventricles: Unremarkable. No ventriculomegaly. Bones/joints: Hyperostosis frontalis interna. Hypoplastic posterior ring of C1 narrowing the foramen magnum and proximal cervical spinal canal. No acute fracture. Soft tissues: Unremarkable. Sinuses: Unremarkable as visualized. No acute sinusitis. Mastoid air cells: Unremarkable as visualized. No mastoid effusion. IMPRESSION: No evidence of acute intracranial pathology. Electronically signed by: Gem Sauer MD 01/10/24 05:26 AM Shoulder X-Ray 01/10/24 02:13 LEFT SHOULDER 3 VIEWS CLINICAL HISTORY: Falls. Left shoulder pain. FINDINGS: 3 views of the left shoulder are compared to study dated 10/25/2020. The skeletal structures are osteopenic. There is no radiographic evidence of acute fracture. There is inferior subluxation of the humeral head without gayle dislocation. Mild arthritic change is seen at the glenohumeral and acromioclavicular joints. The overlying soft tissues are within normal limits. The imaged left lung parenchyma appears clear. IMPRESSION: 1. No fracture is seen. 2. There is inferior subluxation of the humeral head without gayle dislocation. Electronically signed by: Amaury Meier M.D. 01/10/2024 7:09 AM Pelvis X-Ray 01/10/24 02:14 SINGLE VIEW PELVIS CLINICAL HISTORY: Trauma. Falls. FINDINGS: 2 AP, portable, supine pelvic radiographs are correlated with pelvic CT dated 10/23/2023. The skeletal structures are osteopenic. There is no radiographic evidence of acute fracture involving the hips or bony pelvis. Mild arthritic changes seen in the hips. There is degenerative sclerosis of the sacroiliac joints. Lumbosacral spondylosis is partially imaged. The overlying soft tissues are normal as visualized. Surgical clips project over the groin bilaterally. There are pelvic phleboliths. IMPRESSION: No acute bony abnormality is identified. Electronically signed by: Amaury Meier M.D. 01/10/2024 7:18 AM Discharge Plan Visit Data Chief Complaint: Chest Pain Stated Complaint: L Arm Pain, Chest Pain, Fall ED Provider: Zandra Avelar Discharge Problem: Chest pain, Arm pain, left, Multiple falls, Hyponatremia, Hypomagnesemia Patient Disposition: Being Evaluated by Hospitalist Forms Stand Alone Forms: [facility] Prescriptions Prescriptions: No Action benztropine 0.5 mg tablet 0.5 mg PO BID clonazepam 1 mg tablet 1 mg PO TID PRN (Reason: Anxiety) pantoprazole 40 mg tablet,delayed release (DR/EC) 40 mg PO DAILY divalproex 500 mg tablet extended release 24 hr 1,500 mg PO HS gabapentin 100 mg capsule See Rx Instructions .ROUTE .COMPLEX Rx Instructions: 100 mg orally ;1 cap in am and one cap at noon and two capsule at bedtime. metformin 500 mg tablet extended release 24 hr 500 mg PO BID buspirone 15 mg tablet 15 mg PO TID escitalopram oxalate 20 mg tablet 20 mg PO DAILY cholestyramine (with sugar) 4 gram powder 4 ea PO DAILY quetiapine 400 mg tablet 400 mg PO HS Creon 12,000-38,000 -60,000 unit capsule,delayed release(DR/EC) 1 cap PO AC Xarelto 20 mg tablet 20 mg PO DAILY ropinirole 0.5 mg tablet 0.5 mg PO HS Referrals Referrals: PCP,NO [Primary Care Provider] -
[2024-01-10] MEDS: ACETAMINOPHEN 1,000 MG/100 ML VIAL IV STA (03:36)
--- NOTE | 2024-01-10 05:21 | CT Scan Report ---
Exam(s): CT C SPINE EXAM: CT Cervical Spine Without Intravenous Contrast CLINICAL HISTORY: Reason for exam: trauma. TECHNIQUE: Axial computed tomography images of the cervical spine without intravenous contrast. Automated exposure control was utilized for the study. A dose lowering technique was utilized adhering to the principles of ALARA. COMPARISON: Comparison made to prior CT scan of cervical spine from July 10, 2023. FINDINGS: Vertebrae: Unremarkable. No acute fracture. Discs/spinal canal/neural foramina: No acute findings. No spinal canal stenosis. Soft tissues: Mosaic pattern of pulmonary opacities at the lung apices concerning for small airways disease and bronchitis. Tiny mucus impacted bronchus in the right lung apex. Right thyroid nodule. IMPRESSION: No evidence of acute cervical spine pathology. Electronically signed by: Gem Sauer MD 01/10/24 05:20 AM
--- NOTE | 2024-01-10 05:27 | CT Scan Report ---
Exam(s): CT HEAD Without Contrast EXAM: CT Head Without Intravenous Contrast CLINICAL HISTORY: Reason for exam: trauma. TECHNIQUE: Axial computed tomography images of the head/brain without intravenous contrast. Automated exposure control was utilized for the study. A dose lowering technique was utilized adhering to the principles of ALARA. COMPARISON: Comparison made to prior head CT from October 03, 2023. FINDINGS: Brain: Unremarkable. No hemorrhage. No significant white matter disease. No edema. Ventricles: Unremarkable. No ventriculomegaly. Bones/joints: Hyperostosis frontalis interna. Hypoplastic posterior ring of C1 narrowing the foramen magnum and proximal cervical spinal canal. No acute fracture. Soft tissues: Unremarkable. Sinuses: Unremarkable as visualized. No acute sinusitis. Mastoid air cells: Unremarkable as visualized. No mastoid effusion. IMPRESSION: No evidence of acute intracranial pathology. Electronically signed by: Gem Sauer MD 01/10/24 05:26 AM
[2024-01-10] MEDS: MAGNESIUM SULFATE / D5W 1 GM/100 ML BAG IV ONE (05:31)
[2024-01-10 05:57] LABS: Appearance Urine Clear (Clear); Bilirubin Urine Negative (Negative); Blood Urine Negative (Negative); Color Urine Yellow; Glucose Urine UA Negative (Negative); Ketones Urine Negative (Negative); Leukocyte Esterase Urine Negative (Negative); Nitrite Urine Negative (Negative); Protein Urine Negative (Negative); Specific Gravity Urine 1.006 (1.000-1.030); Urobilinogen Urine Negative (Negative)
--- NOTE | 2024-01-10 06:01 | History & Physical Report ---
Date of Service January 10, 2024 Assessment & Plan (1) Encephalopathy: Plan: Multifactorial: Hyponatremia Multiple home neuropsychotropic medications contributory Rule out hyperammonemia, valproic acid toxicity Traumatic LUE pain rule out bony injury DM 2 on oral medications, suboptimal control of recent hemoglobin A1c of 7.9 last October 2023 Chronic anemia, hemoglobin at baseline schizophrenia/anxiety/mood disorder ongoing tobacco abuse Medical telemetry Careful correction of sodium Recheck serum sodium after initial 500 cc bolus given at the ER Hyponatremia workup Nephrology consult if without improvement Appropriate to hold multiple neuropsychotropic medications for now given encephalopathy May benefit from Psychiatry input for medication management given patient predisposition to confusion and recurrent falls. Check serum ammonia and Depakote levels. Hold Eliquis for now until official read of plain x-rays available. Basal bolus insulin, ISS BG goal 1 10-1 40, carb count coverage Nicotine patch as needed PT OT eval once medically stable, may need placement given recurrent falls DVT prophylaxis. SCDs for now while Xarelto on hold until bone x-rays officially read given history of trauma Full code Patient requests for daughter to be given periodic updates regarding her care. Marcela Scott, contact #[phone]. Text document was generated using [employer] voice recognition software. It may contain grammatical or spelling errors. Kindly contact undersigned for clarification of any documentation item in question. History of Present Illness Chief Complaint: Fall, left upper arm pain Primary Care Provider: Monique Bey History obtained from patient and records. Limited history from patient secondary to lethargic state. Medical history significant for history of PE on Xarelto, DM 2 on oral medications, chronic anemia (baseline hemoglobin of 11), GERD, IBS, chronic pain, schizophrenia/anxiety/mood disorder, ongoing tobacco abuse. Last confinement October 2023 for hyponatremia and gastroenteritis. Patient had 2 falls yesterday leading to EMS being called to her home. Patient complained of left arm pain with second fall worse with motion. Transient chest pain, usual SOB. Patient noted to be drowsy. Patient brought to the ER for evaluation. Medical History as above Surgical History : section, cholecystectomy, ROLANDO Family History : Bowel cancer, DM Personal/Social history : 1 pack daily, no EtOH intake, disabled, lives with daughter Allergies Allergy/AdvReac Type Severity Reaction Status Date / Time bee venom protein (honey bee) Allergy Severe Anaphylaxis Verified 01/10/24 02:33 egg AdvReac Severe Vomiting Verified 01/10/24 02:33 Penicillins AdvReac Severe VOMITING/IT Verified 01/10/24 02:33 DAVON Home Medications Medication Instructions Recorded Confirmed Type benztropine 0.5 mg tablet 0.5 mg PO BID 10/23/23 01/10/24 History buspirone 15 mg tablet 15 mg PO TID 10/23/23 01/10/24 History cholestyramine (with sugar) 4 gram 4 ea PO DAILY 10/23/23 01/10/24 History oral powder clonazepam 1 mg tablet 1 mg PO TID PRN Anxiety 10/23/23 01/10/24 History divalproex 500 mg tablet,extended 1,500 mg PO HS 10/23/23 01/10/24 History release 24 hr escitalopram oxalate 20 mg tablet 20 mg PO DAILY 10/23/23 01/10/24 History gabapentin 100 mg capsule See Rx Instructions .Route .COMPLEX 10/23/23 01/10/24 History wsowam-monzntyz-jzlatfm 1 cap PO AC 10/23/23 01/10/24 History 12,000-38,000-60,000 unit capsule,delayed rel (Creon) metformin 500 mg tablet,extended 500 mg PO BID 10/23/23 01/10/24 History release 24 hr pantoprazole 40 mg tablet,delayed 40 mg PO DAILY 10/23/23 01/10/24 History release quetiapine 400 mg tablet 400 mg PO HS 10/23/23 01/10/24 History rivaroxaban 20 mg tablet (Xarelto) 20 mg PO DAILY 10/23/23 01/10/24 History ropinirole 0.5 mg tablet 0.5 mg PO HS 01/10/24 01/10/24 History Past Med/Surg History Medical History Weakness Intractable nausea and vomiting Pulmonary embolism Enteritis due to [place] virus Chronic diarrhea Folate deficiency Hypothyroid Generalized weakness Restless leg Rectal bleeding Smoking Aspiration pneumonia Hyperparathyroidism Iron deficiency anemia History of pulmonary embolism Anemia Irritable bowel syndrome Anxiety and depression Schizoaffective disorder GERD (gastroesophageal reflux disease) Diabetes Arthritis Surgical History History of hysterectomy History of cholecystectomy History of section x2 Family History Mother Diabetes Sister Diabetes Denies family history of Inflammatory bowel disease Social History Smoking Status: Never smoker Tobacco Type: Cigarettes Cigarettes Per Day: 40+; Second Hand Exposure: Yes; Do You Dip or Chew Tobacco: No; Hx Alcohol Use: No Hx Substance Use: No Preferred Language: Northern Irish Communication Ability: Effective Slab Miller Operator Required: No Beliefs That Will Affect Care: None marital status: Current Living Situation: Alone Current Living Situation Comment: Lives with daughter. How many Children do You have: 2 Feels Safe at Home: Yes Safety Concerns: Feels Safe At This Time Assistive Devices: Walker Review of Systems Review of Systems: Could not be reliably obtained secondary to lethargic state Physical Exam Physical Exam: GENERAL: Lethargic, morbidly obese, looks older than stated age, no respiratory distress SKIN: Normal color, warm HEENT: [place] palpebral conjunctivae, no ptosis, dry buccal mucosa, edentulous NECK : Supple, short neck, no tenderness CHEST : Decreased breath sounds, no tenderness HEART : RRR, no obvious murmurs ABDOMEN: Some distention,no hypogastric tenderness EXTREMITIES : Minimal LE swelling/tenderness, minimal left shoulder tenderness NEUROLOGIC : Lethargic, no facial asymmetry, gait and stance not assessed Results & Data Results & Data Vital Signs (Past 12 Hours) Vital Signs Temp Pulse Pulse Resp BP BP Pulse Ox 01/10/24 05:44 96 H 16 170/102 H 93 01/10/24 05:08 102 H 16 154/113 H 95 01/10/24 03:39 100 H 18 166/85 H 95 01/10/24 02:12 103 H 01/10/24 02:10 36.7 C 102 H 18 160/79 H 96 O2 Del Method 01/10/24 05:44 Room Air 01/10/24 05:08 Room Air 01/10/24 03:39 Room Air 01/10/24 02:12 01/10/24 02:10 Room Air Laboratory Results Laboratory Results WBC 6.22 K/ul (4.8-10.8) 01/10/24 02:15 RBC 4.28 M/uL (4.20-5.40) 01/10/24 02:15 Hgb 11.6 g/dl (12.0-16.0) L 01/10/24 02:15 Hct 34.1 % (37.0-47.0) L 01/10/24 02:15 MCV 79.7 fL (80.0-100.0) L 01/10/24 02:15 MCH 27.1 pg (25.0-34.0) 01/10/24 02:15 MCHC 34.0 g/dL (32.0-36.0) 01/10/24 02:15 RDW Std Deviation 37.7 fL (36.4-46.3) 01/10/24 02:15 RDW Coeff of [place] 13.2 % (11.5-14.5) 01/10/24 02:15 Plt Count 280 K/uL (130-400) 01/10/24 02:15 MPV 8.4 fL (9.4-12.4) L 01/10/24 02:15 Immature Gran % (Auto) 0.8 % 01/10/24 02:15 Neut % (Auto) 54.6 % 01/10/24 02:15 Lymph % (Auto) 33.4 % 01/10/24 02:15 [place] % (Auto) 9.3 % 01/10/24 02:15 Eos % (Auto) 1.3 % 01/10/24 02:15 Baso % (Auto) 0.6 % 01/10/24 02:15 Neut # (Auto) 3.39 K/uL (1.40-6.50) 01/10/24 02:15 Lymph # (Auto) 2.08 K/uL (1.20-3.40) 01/10/24 02:15 Mcdowell # (Auto) 0.58 K/uL (0.11-0.59) 01/10/24 02:15 Eos # (Auto) 0.08 K/uL (0.00-0.50) 01/10/24 02:15 Baso # (Auto) 0.04 K/uL (0.00-0.20) 01/10/24 02:15 Immature Gran # (Auto) 0.05 K/uL (0.01-0.20) 01/10/24 02:15 PT 11.8 Seconds (9.0-12.0) 01/10/24 02:15 INR 1.1 (0.9-1.1) 01/10/24 02:15 Sodium 121 mmol/L (136-145) L 01/10/24 02:15 Potassium 4.6 mmol/L (3.5-5.1) 01/10/24 02:15 Chloride 91 mmol/L (98-107) L 01/10/24 02:15 Carbon Dioxide 23 mmol/L (21-32) 01/10/24 02:15 Anion Gap 7 (3-11) 01/10/24 02:15 BUN 6 mg/dl (6-23) 01/10/24 02:15 Creatinine 0.73 mg/dl (0.6-1.2) 01/10/24 02:15 Est Cr Clr Drug Dosing 86.5 ml/min 01/10/24 02:15 Est GFR ( Amer) 99.5 ml/min 01/10/24 02:15 Est GFR (Non-Af Amer) 85.8 ml/min 01/10/24 02:15 BUN/Creatinine Ratio 8.2 (10-20) L 01/10/24 02:15 Glucose 160 mg/dl (70-99(Fasting)) H 01/10/24 02:15 Calcium 9.3 mg/dl (8.6-10.3) 01/10/24 02:15 Magnesium 1.3 mg/dl (1.7-2.4) L 01/10/24 02:15 Total Bilirubin 0.2 mg/dl (0.2-1.0) 01/10/24 02:15 AST 10 U/L (13-39) L 01/10/24 02:15 ALT 5 U/L (7-52) L 01/10/24 02:15 Alkaline Phosphatase 61 U/L (34-104) 01/10/24 02:15 Troponin I High Sens 3.4 pg/ml (0-14) 01/10/24 02:15 Total Protein 6.7 gm/dl (6.0-8.3) 01/10/24 02:15 Albumin 3.5 gm/dl (3.4-5.0) 01/10/24 02:15 Globulin 3.2 gm/dl (2.5-4.0) 01/10/24 02:15 Albumin/Globulin Ratio 1.1 (0.9-2) 01/10/24 02:15 Lipase 22 U/L (11-82) 01/10/24 02:15 TSH 1.871 uIu/ml (0.300-4.500) 01/10/24 02:15 Urine Color Yellow 01/10/24 05:06 Urine Appearance Clear (Clear) 01/10/24 05:06 Urine pH 7.0 (4.5-7.5) 01/10/24 05:06 Ur Specific [place] 1.006 (1.000-1.030) 01/10/24 05:06 Urine Protein Negative (Negative) 01/10/24 05:06 Urine Glucose (UA) Negative (Negative) 01/10/24 05:06 Urine Ketones Negative (Negative) 01/10/24 05:06 Urine Blood Negative (Negative) 01/10/24 05:06 Urine Nitrite Negative (Negative) 01/10/24 05:06 Urine Bilirubin Negative (Negative) 01/10/24 05:06 Urine Urobilinogen Negative (Negative) 01/10/24 05:06 Ur Leukocyte Esterase Negative (Negative) 01/10/24 05:[address] 01/10/24 02:13 Exam(s): CT C SPINE EXAM: CT Cervical Spine Without Intravenous Contrast CLINICAL HISTORY: Reason for exam: trauma. TECHNIQUE: Axial computed tomography images of the cervical spine without intravenous contrast. Automated exposure control was utilized for the study. A dose lowering technique was utilized adhering to the principles of ALARA. COMPARISON: Comparison made to prior CT scan of cervical spine from July 10, 2023. FINDINGS: Vertebrae: Unremarkable. No acute fracture. Discs/spinal canal/neural foramina: No acute findings. No spinal canal stenosis. Soft tissues: Mosaic pattern of pulmonary opacities at the lung apices concerning for small airways disease and bronchitis. Tiny mucus impacted bronchus in the right lung apex. Right thyroid nodule. IMPRESSION: No evidence of acute cervical spine pathology. Electronically signed by: Gem Sauer MD 01/10/24 05:[address] 01/10/24 02:13 Exam(s): CT HEAD Without Contrast EXAM: CT Head Without Intravenous Contrast CLINICAL HISTORY: Reason for exam: trauma. TECHNIQUE: Axial computed tomography images of the head/brain without intravenous contrast. Automated exposure control was utilized for the study. A dose lowering technique was utilized adhering to the principles of ALARA. COMPARISON: Comparison made to prior head CT from October 03, 2023. FINDINGS: Brain: Unremarkable. No hemorrhage. No significant white matter disease. No edema. Ventricles: Unremarkable. No ventriculomegaly. Bones/joints: Hyperostosis frontalis interna. Hypoplastic posterior ring of C1 narrowing the foramen magnum and proximal cervical spinal canal. No acute fracture. Soft tissues: Unremarkable. Sinuses: Unremarkable as visualized. No acute sinusitis. Mastoid air cells: Unremarkable as visualized. No mastoid effusion. IMPRESSION: No evidence of acute intracranial pathology. Electronically signed by: Gem Sauer MD 01/10/24 05:26 AM Diagnostic Findings EKG as per my interpretation : Rate 110, sinus tachycardia, RAD, RBBB, diffuse T wave abnormalities
[2024-01-10] MEDS: METOPROLOL TARTRATE 1 MG/ML VIAL IV STA (06:33)
--- NOTE | 2024-01-10 07:10 | XRay Report ---
XR chest 1V portable CLINICAL HISTORY: trauma COMPARISON STUDY: Chest radiograph October 03, 2023. FINDINGS: Lung volumes are normal. Lungs are clear. There is no pneumothorax or pleural effusion. Car diac size is stable. Mediastinal contours are normal. There is no evidence for pulmonary edema. IMPRESSION: No acute cardiopulmonary findings. ACT 112: Negative or not required by law. Electronically signed by: Bryn East M.D. 01/10/2024 7:09 AM
--- NOTE | 2024-01-10 07:11 | XRay Report ---
LEFT SHOULDER 3 VIEWS CLINICAL HISTORY: Falls. Left shoulder pain. FINDINGS: 3 views of the left shoulder are compared to study dated 10/25/2020. The skeletal structure s are osteopenic. There is no radiographic evidence of acute fracture. There is inferior subluxation of the humeral head without gayle dislocation. Mild arthritic change is seen at the glenohumeral and acromioclavicular joints. The overlying soft tissues are within normal limits. The imaged left lung p arenchyma appears clear. IMPRESSION: 1. No fracture is seen. 2. There is inferior subluxation of the humeral head without gayle dislocation. Electronically signed by: Amaury Meier M.D. 01/10/2024 7:09 AM
--- NOTE | 2024-01-10 07:19 | XRay Report ---
SINGLE VIEW PELVIS CLINICAL HISTORY: Trauma. Falls. FINDINGS: 2 AP, portable, supine pelvic radiographs are correlated with pelvic CT dated 10/23/2023. Th e skeletal structures are osteopenic. There is no radiographic evidence of acute fracture involving t he hips or bony pelvis. Mild arthritic changes seen in the hips. There is degenerative sclerosis of t he sacroiliac joints. Lumbosacral spondylosis is partially imaged. The overlying soft tissues are nor mal as visualized. Surgical clips project over the groin bilaterally. There are pelvic phleboliths. IMPRESSION: No acute bony abnormality is identified. Electronically signed by: Amaury Meier M.D. 01/10/2024 7:18 AM
[2024-01-10 07:28] LABS: Base Excess VBG -0.4 mEq/L; HCO3 VBG 25 mmol/L; Oxygen Saturation VBG 72.8 %; PCO2 VBG 45 mmHg (38-50); PO2 VBG 40 mmHg; pH VBG 7.36 (7.36-7.41)
[2024-01-10] MEDS ORDERED: DEXTROSE 50% 50 ML SYRINGE IV PRN (08:21)
[2024-01-10] MEDS ORDERED: GLUCAGON FOR INJ 1 MG VIAL SQ PRN (08:21)
[2024-01-10] MEDS ORDERED: CARBOHYDRATES FOR HYPOGLYCEMIA PO PRN (08:21)
[2024-01-10] MEDS ORDERED: GLUCOSE 40% GEL 15 GM TUBE PO PRN (08:21)
[2024-01-10] MEDS ORDERED: GLUCOSE 10 TAB/TUBE PO PRN (08:21)
[2024-01-10] MEDS: PANTOprazole 40 MG TAB ONE (08:30)
[2024-01-10] MEDS: PANTOprazole 40 MG TAB PO SCH (08:30)
[2024-01-10] MEDS: INSULIN ASPART PER UNIT CHARGE SC SCH (09:24)
--- NOTE | 2024-01-10 11:11 | Nephrology Consultation ---
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 her urine osm should have been much lower with serum Na of 121. Will need FFR 1200 ml per day. Currently on Liquid/Limited diet so will be difficult to achieve this. also very somnolent so not sure how much she will eat. follow BMP every 6 hrs x 4 repeat urine osm later this PM (2) Hypomagnesemia: last level was 1.3 she needs more. got 2 gm so far and give 2 gm more. check again in PM today (3) Encephalopathy: (4) Multiple falls: As per primary team. most likely multifactorial cause of AMS. low Na obviously added to the problem and also cause weakness. Agree with plan to hold Multiple meds History of Present Illness Reason for Consultation: Hyponatremia Attending Physician: Lucero Frost MD History of Present Illness 68/F with Multiple Psych issues and on multiple meds. Also has history of PE on Xarelto, DM 2 on oral medications, chronic anemia (baseline hemoglobin of 11), GERD, IBS, chronic pain, ongoing tobacco abuse. Last confinement October 2023 for hyponatremia and gastroenteritis. Brought to ED yesterday after she had 2 falls. Patient complained of left arm pain with second fall worse with motion. also Significant mental status change. found to have na of 121 and got 500 ml NS and Na still low at 122. urine Osm is 163, urine sp gr is only 1.006 so quite dilute urine. No fractures noted. Vital signs fine. ROS--Unable at this time as she barely opens her eyes. PHYSICAL EXAMINATION: GENERAL: alert, unwell appearing, well nourished, no distress, non-toxic OROPHARYNX: MM moist. NECK: supple, non-tender LUNGS: Clear to auscultation. HEART: no murmurs, S1 normal and S2 normal ABDOMEN: abdomen soft, non-tender, obese SKIN: no rashes, petechiae, orbruising EXTREMITIES: No pitting edema. FROM, nml pulses b/l. No evidence of trauma or deformity NEURO EXAM: Somewhat drowsy. No obvious focal deficits noted but exam is limited Allergies Allergy/AdvReac Type Severity Reaction Status Date / Time bee venom protein (honey bee) Allergy Severe Anaphylaxis Verified 01/10/24 02:33 egg AdvReac Severe Vomiting Verified 01/10/24 02:33 Penicillins AdvReac Severe VOMITING/IT Verified 01/10/24 02:33 DAVON Home Medications Medication Instructions Recorded Confirmed Type benztropine 0.5 mg tablet 0.5 mg PO BID 10/23/23 01/10/24 History buspirone 15 mg tablet 15 mg PO TID 10/23/23 01/10/24 History cholestyramine (with sugar) 4 gram 4 ea PO DAILY 10/23/23 01/10/24 History oral powder clonazepam 1 mg tablet 1 mg PO TID PRN Anxiety 10/23/23 01/10/24 History divalproex 500 mg tablet,extended 1,500 mg PO HS 10/23/23 01/10/24 History release 24 hr escitalopram oxalate 20 mg tablet 20 mg PO DAILY 10/23/23 01/10/24 History gabapentin 100 mg capsule See Rx Instructions .Route .COMPLEX 10/23/23 01/10/24 History ecmlgx-xtbezsdr-gjemuah 1 cap PO AC 10/23/23 01/10/24 History 12,000-38,000-60,000 unit capsule,delayed rel (Creon) metformin 500 mg tablet,extended 500 mg PO BID 10/23/23 01/10/24 History release 24 hr pantoprazole 40 mg tablet,delayed 40 mg PO DAILY 10/23/23 01/10/24 History release quetiapine 400 mg tablet 400 mg PO HS 10/23/23 01/10/24 History rivaroxaban 20 mg tablet (Xarelto) 20 mg PO DAILY 10/23/23 01/10/24 History ropinirole 0.5 mg tablet 0.5 mg PO HS 01/10/24 01/10/24 History Patient History Medical History Weakness Intractable nausea and vomiting Pulmonary embolism Enteritis due to [place] virus Chronic diarrhea Folate deficiency Hypothyroid Generalized weakness Restless leg Rectal bleeding Smoking Aspiration pneumonia Hyperparathyroidism Iron deficiency anemia History of pulmonary embolism Anemia Irritable bowel syndrome Anxiety and depression Schizoaffective disorder GERD (gastroesophageal reflux disease) Diabetes Arthritis Surgical History History of hysterectomy History of cholecystectomy History of section x2 Family History Mother Diabetes Sister Diabetes Denies family history of Inflammatory bowel disease Social History Smoking Status: Never smoker Tobacco Type: Cigarettes Cigarettes Per Day: 40+; Second Hand Exposure: Yes; Do You Dip or Chew Tobacco: No; Hx Alcohol Use: No Hx Substance Use: No Preferred Language: Malay Communication Ability: Effective Wrapper Rewinder Required: No Beliefs That Will Affect Care: None marital status: Current Living Situation: Alone Current Living Situation Comment: Lives with daughter. How many Children do You have: 2 Feels Safe at Home: Yes Safety Concerns: Feels Safe At This Time Assistive Devices: Walker Results & Data Vital Signs (Past 12 Hours) Vital Signs Temp Pulse Pulse Resp BP BP Pulse Ox 01/10/24 09:17 86 16 109/78 96 01/10/24 09:16 89 16 109/78 94 01/10/24 08:00 86 01/10/24 07:00 36.7 C 82 18 131/82 94 01/10/24 06:36 96 H 18 94 01/10/24 06:33 97 H 154/97 H 01/10/24 06:05 97 H 01/10/24 05:44 96 H 16 170/102 H 93 01/10/24 05:08 102 H 16 154/113 H 95 01/10/24 03:39 100 H 18 166/85 H 95 01/10/24 02:12 103 H 01/10/24 02:10 36.7 C 102 H 18 160/79 H 96 O2 Del Method 01/10/24 09:17 Room Air 01/10/24 09:16 Room Air 01/10/24 08:00 01/10/24 07:00 Room Air 01/10/24 06:36 Room Air 01/10/24 06:33 01/10/24 06:05 01/10/24 05:44 Room Air 01/10/24 05:08 Room Air 01/10/24 03:39 Room Air 01/10/24 02:12 01/10/24 02:10 Room Air Laboratory Results reviewed Diagnostic Findings reviewed.
--- NOTE | 2024-01-10 11:55 | Hospitalist Progress Note ---
Date of Service January 10, 2024 Assessment & Plan (1) Encephalopathy: Plan: Multifactorial: Hyponatremia Multiple home neuropsychotropic medications contributory Rule out hyperammonemia, valproic acid toxicity Traumatic LUE pain rule out bony injury DM 2 on oral medications, suboptimal control of recent hemoglobin A1c of 7.9 last October 2023 Chronic anemia, hemoglobin at baseline schizophrenia/anxiety/mood disorder ongoing tobacco abuse Medical telemetry Careful correction of sodium Recheck serum sodium after initial 500 cc bolus given at the ER Hyponatremia workup Nephrology consult if without improvement Appropriate to hold multiple neuropsychotropic medications for now given encephalopathy May benefit from Psychiatry input for medication management given patient predisposition to confusion and recurrent falls. Check serum ammonia and Depakote levels. Hold Eliquis for now until official read of plain x-rays available. Basal bolus insulin, ISS BG goal 1 10-1 40, carb count coverage Nicotine patch as needed PT OT eval once medically stable, may need placement given recurrent falls DVT prophylaxis. SCDs for now while Xarelto on hold until bone x-rays officially read given history of trauma Full code Patient requests for daughter to be given periodic updates regarding her care. Marcela Scott, contact #[phone]. Text document was generated using [employer] voice recognition software. It may contain grammatical or spelling errors. Kindly contact undersigned for clarification of any documentation item in question. Admission and Anticipated Discharge Date Admission Date: January 10, 2024 Results & Data Results & Data Vital Signs (Past 12 Hours) Vital Signs Temp Pulse Pulse Resp BP BP Pulse Ox 01/10/24 09:17 86 16 109/78 96 01/10/24 09:16 89 16 109/78 94 01/10/24 08:00 86 01/10/24 07:00 36.7 C 82 18 131/82 94 01/10/24 06:36 96 H 18 94 01/10/24 06:33 97 H 154/97 H 01/10/24 06:05 97 H 01/10/24 05:44 96 H 16 170/102 H 93 01/10/24 05:08 102 H 16 154/113 H 95 01/10/24 03:39 100 H 18 166/85 H 95 01/10/24 02:12 103 H 01/10/24 02:10 36.7 C 102 H 18 160/79 H 96 O2 Del Method 01/10/24 09:17 Room Air 01/10/24 09:16 Room Air 01/10/24 08:00 01/10/24 07:00 Room Air 01/10/24 06:36 Room Air 01/10/24 06:33 01/10/24 06:05 01/10/24 05:44 Room Air 01/10/24 05:08 Room Air 01/10/24 03:39 Room Air 01/10/24 02:12 01/10/24 02:10 Room Air
[2024-01-10] MEDS: ACETAMINOPHEN 325 MG TAB PO PRN (12:33)
[2024-01-10] MEDS: KETOROLAC TROMETHAMINE 15 MG/ML VIAL IV PRN (13:16)
--- NOTE | 2024-01-10 13:39 | Electrocardiogram Report ---
Test Reason : Blood Pressure : / mmHG Vent. Rate : 109 BPM Atrial Rate : 109 BPM P-R Int : 176 ms QRS Dur : 122 ms QT Int : 398 ms P-R-T Axes : 050 119 015 degrees QTc Int : 535 ms Sinus tachycardia with occasional Premature ventricular complexes Right bundle branch block Abnormal ECG When compared with ECG of 23-OCT-2023 07:27, Premature ventricular complexes are now Present QT has lengthened Confirmed by Dave Real ([id number]) on 01/10/2024 1:39:24 PM Referred By: REFERRED SELF Confirmed By:Dave Real
[2024-01-10] MEDS: ACETAMINOPHEN 1,000 MG/100 ML VIAL IV PRN (16:20)
[2024-01-11] MEDS: PROMETHAZINE HCL 6.25 MG in SODIUM CHLORIDE 0.9% 50 ML IV PRN (00:16)
[2024-01-11] MEDS: clonazePAM 1 MG TAB PO PRN (02:34)
[2024-01-11] MEDS: oxyCODONE HCL IR 5 MG TAB (IMMEDIATE RELEASE) PO PRN (02:34)
[2024-01-11] MEDS: MELATONIN 3 MG TAB PO PRN (02:34)
[2024-01-11 07:00] LABS: Basophils # (auto) 0.04 K/uL (0.00-0.20); Basophils % (auto) 0.7 %; Eosinophils % (auto) 1.8 %; Hematocrit (blood only) 34.1 % (37.0-47.0); Hemoglobin 11.4 g/dl (12.0-16.0); Immature Granulocytes # (auto) 0.06 K/uL (0.01-0.20); Immature Granulocytes % (auto) 1.1 %; Lymphocytes # (auto) 1.93 K/uL (1.20-3.40); Lymphocytes % (auto) 34.9 %; Mean Corpuscular Hemoglobin 27.1 pg (25.0-34.0); Mean Corpuscular Hgb Conc 33.4 g/dL (32.0-36.0); Mean Platelet Volume 8.8 fL (9.4-12.4); Monocytes # (auto) 0.49 K/uL (0.11-0.59); Monocytes % (auto) 8.9 %; Neutrophils # (auto) 2.91 K/uL (1.40-6.50); Neutrophils % (auto) 52.6 %; Platelet Count 296 K/uL (130-400); RDW Coefficient of Variation 13.5 % (11.5-14.5); RDW Standard Deviation 39.5 fL (36.4-46.3); Red Blood Count 4.21 M/uL (4.20-5.40); White Blood Count 5.53 K/ul (4.8-10.8)
[2024-01-11 07:18] LABS: BUN Creatinine Ratio 7.4 (10-20); Creatinine Clr Calc Pharmacy 91.5 ml/min; Est GFR (African American) 105.6 ml/min; Est GFR (Non-African American) 91.2 ml/min; Magnesium 1.9 mg/dl (1.7-2.4); Potassium 4.8 mmol/L (3.5-5.1)
--- NOTE | 2024-01-11 09:24 | Nephrology Progress Note ---
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 Her urine osm should have been much lower with serum Na of 121. FFR 1200 ml per day. Much more alert today and had a long conversation today with her. She was drinking massive amount of Water and tea--drinks from Wake up to sleep. easily > than 150 oz per day. Asking for water constantly here. we do have make sure she does not drink extra water from the faucet directly. Urine Incontinent. na improving slowly. No need of NS or lasix or other meds. (2) Hypomagnesemia: last level was 1.9. Will follow daily mag level. (3) Encephalopathy: (4) Multiple falls: As per primary team. most likely multifactorial cause of AMS. low Na obviously added to the problem and also cause weakness. Agree with plan to hold Multiple meds S---Much more alert today and had a long conversation today with her. She was drinking massive amount of Water and tea--drinks from Wake up to sleep. easily > than 150 oz per day. Asking for water constantly here. Urine Incontinent. No new issues PHYSICAL EXAMINATION: GENERAL: alert, unwell appearing, well nourished, no distress, non-toxic OROPHARYNX: MM moist. NECK: supple, non-tender LUNGS: Clear to auscultation. HEART: no murmurs, S1 normal and S2 normal ABDOMEN: abdomen soft, non-tender, obese SKIN: no rashes, petechiae, orbruising EXTREMITIES: No pitting edema. FROM, nml pulses b/l. No evidence of trauma or deformity NEURO EXAM: Somewhat drowsy. No obvious focal deficits noted but exam is limited Results & Data Vital Signs (Past 12 Hours) Vital Signs Temp Pulse Pulse Resp BP Pulse Ox O2 Del Method 01/11/24 08:03 36.7 C 86 18 167/82 H 94 Room Air 01/11/24 07:07 89 01/11/24 02:35 36.4 C L 96 H 18 157/85 H 93 Room Air 01/11/24 00:39 88 01/10/24 23:55 37.0 C 91 H 18 123/73 94 Room Air
--- NOTE | 2024-01-11 12:33 | Hospitalist Progress Note ---
Date of Service January 11, 2024 Assessment & Plan (1) Encephalopathy: Plan Pt is a 68yoF with PMHx significant for history of PE on Xarelto, DM 2 on oral medications, chronic anemia (baseline hemoglobin of 11), GERD, IBS, chronic pain, schizophrenia/anxiety/mood disorder, ongoing tobacco abuse admitted with acute encephalopathy. Acute metabolic Encephalopathy Pt very lethargic on admission likely Multifactorial, Hyponatremic Multiple home neuropsychotropic medications contributory Rule out hyperammonemia, valproic acid toxicity- both within normal limits Psych consulted with holding of psychotropic meds-appreciate recs to re-start Hyponatremia Pt with noted sodium 121 on admission, baseline of 134 in October Careful correction of sodium Recheck serum sodium after initial 500 cc bolus given at the ER Hyponatremia workup Nephrology consulted, appreciate recs Traumatic LUE pain Hx of falls rule out bony injury Left shoulder xray noting no acute fracture or dislocation but does note slight subluxation Pt with significant pain Orthopedics consulted- appreciate recs Continue with pain control, ice to affected area PT OT eval once medically stable (pt has been refusing to work with PT), may need placement given recurrent falls Intertrigo Started on desenex cream DM 2 on oral medications suboptimal control of recent hemoglobin A1c of 7.9 last October 2023 [facility] PCP follow up Chronic anemia hemoglobin at baseline, 11.4 On Eliquis Monitor H/H once restarted Hx of PE Xarelto was on hold in setting of falls and trauma Resume on 01/12 Monitor hgb as above schizophrenia/anxiety/mood disorder RLS psych consulted with holding of psychotropic meds-appreciate recs to re-start and prevent further AMS in the future -seroquel and klonipin has been re-started -Holding the other meds (benztropine, buspar, divalproex, lexapro, gabapentin, ropinirole) resume as able based on psych recs ongoing tobacco abuse Nicotine patch as needed encourage cessation DVT prophylaxis. SCDs for now while Xarelto on hold, xarelto to resume 01/12 Full code Admission and Anticipated Discharge Date Admission Date: January 10, 2024 Subjective Pt more alert today. Able to have a conversation. States that she is in a lot of pain especially on the left. Left shoulder. Review of Systems Review of Systems: All systems reviewed & are unremarkable except as noted in Subjective Physical Exam Physical Exam: General: Alert, oriented. Psych: Appropriate mood and affect Neuro: difficulty with movements, left shoulder pain HEENT: NC/AT CV: RRR, Resp: no increased effort of breathing Abdomen:Soft, nontender Results & Data Results & Data Vital Signs (Past 12 Hours) Vital Signs Temp Pulse Pulse Resp BP Pulse Ox O2 Del Method 01/11/24 11:38 36.8 C 82 18 162/96 H 93 Room Air 01/11/24 09:43 Room Air 01/11/24 08:03 36.7 C 86 18 167/82 H 94 Room Air 01/11/24 07:07 89 01/11/24 02:35 36.4 C L 96 H 18 157/85 H 93 Room Air 01/11/24 00:39 88
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
[2024-01-11] MEDS: MICONAZOLE NITRATE POWDER 85 GM EXT SCH (21:06)
[2024-01-12 06:18] LABS: Hematocrit (blood only) 35.8 % (37.0-47.0); Hemoglobin 12.2 g/dl (12.0-16.0); Mean Corpuscular Hemoglobin 27.5 pg (25.0-34.0); Mean Corpuscular Hgb Conc 34.1 g/dL (32.0-36.0); Mean Corpuscular Volume 80.6 fL (80.0-100.0); Mean Platelet Volume 8.5 fL (9.4-12.4); Platelet Count 302 K/uL (130-400); RDW Coefficient of Variation 13.6 % (11.5-14.5); RDW Standard Deviation 39.6 fL (36.4-46.3); Red Blood Count 4.44 M/uL (4.20-5.40)
[2024-01-12 06:40] LABS: BUN Creatinine Ratio 9.8 (10-20); Calcium 9.5 mg/dl (8.6-10.3); Est GFR (African American) 109.5 ml/min; Est GFR (Non-African American) 94.5 ml/min; Magnesium 1.6 mg/dl (1.7-2.4); Phosphorus 3.8 mg/dl (2.5-4.9); Potassium 4.5 mmol/L (3.5-5.1)
--- NOTE | 2024-01-12 07:58 | Hospitalist Progress Note ---
Date of Service January 12, 2024 Assessment & Plan (1) Encephalopathy: Plan Pt is a 68yoF with PMHx significant for history of PE on Xarelto, DM 2 on oral medications, chronic anemia (baseline hemoglobin of 11), GERD, IBS, chronic pain, schizophrenia/anxiety/mood disorder, ongoing tobacco abuse admitted with acute encephalopathy. Acute metabolic Encephalopathy Pt very lethargic on admission likely Multifactorial, Hyponatremic Multiple home neuropsychotropic medications contributory Rule out hyperammonemia, valproic acid toxicity- both within normal limits Psych consulted with holding of psychotropic meds-appreciate recs to re-start Pt's mental status improved per previous providers - today for me she is a bit drowsy but able to answer simple questions appropriately Hyponatremia Pt with noted sodium 121 on admission, baseline of 134 in October Careful correction of sodium Hyponatremia workup Nephrology consulted, appreciate recs -consistent with psychogenic polydipsia, currently on fluid restriction. Traumatic LUE pain Hx of falls rule out bony injury Left shoulder xray noting no acute fracture or dislocation but does note slight subluxation Pt with significant pain Orthopedics consulted- appreciate recs - 65-year-old female with left rotator cuff tendinitis -Weightbearing as tolerated left upper extremity -Pain control -PT/OT -Medical management -Patient is stable from an orthopedic standpoint. No further intervention at this time. May follow-up as an outpatient as needed Continue with pain control, ice to affected area PT OT eval once medically stable (pt has been refusing to work with PT), may need placement given recurrent falls Intertrigo Started on desenex cream DM 2 on oral medications suboptimal control of recent hemoglobin A1c of 7.9 last October 2023 [facility] PCP follow up Chronic anemia hemoglobin at baseline, 11.4 On xarelto Monitor H/H once restarted Hx of PE Xarelto was on hold in setting of falls and trauma Resume on 01/12 Monitor hgb as above schizophrenia/anxiety/mood disorder RLS psych consulted with holding of psychotropic meds-appreciate recs to re-start and prevent further AMS in the future -seroquel and klonipin has been re-started -Holding the other meds (benztropine, buspar, divalproex, lexapro, gabapentin, ropinirole) resume as able based on psych recs - discussed w/ psych - holding ropinirole, benztropine ongoing tobacco abuse Nicotine patch as needed encourage cessation DVT prophylaxis. SCDs for now while Xarelto on hold, xarelto to resume 01/12 Full code Admission and Anticipated Discharge Date Admission Date: January 10, 2024 Subjective Pt seen in follow up of AMS, hyponatremia, on multiple psychotropic meds, and psychiatry consulted Nephrology consulted for hyponatremia - now on fluid restriction - for psychogenic polydipsia Orthopedics consulted for shoulder pain, abnormal XR Laying in bed in NAD, says she feels better however she is somewhat drowsy. Per previous providers, she was more alert before. I discussed with psychiatry, and restarted some of her home medications. She was also getting some oxycodone for pain. Denies any chest pain or shortness of breath, denies any fevers chills, denies any abdominal pain nausea vomiting. Review of Systems Review of Systems: All systems reviewed & are unremarkable except as noted in Subjective Physical Exam Physical Exam: General: WD/WN in NAD HEENT: NC/AT CV: RRR, Resp: no increased effort of breathing Abdomen:Soft, nontender Neuro/psych: Somewhat drowsy, however able to answer simple questions appropriately, +left shoulder pain (improved), speech fluent, no facial asymmetry, moves extremities Results & Data Results & Data Vital Signs (Past 12 Hours) Vital Signs Temp Pulse Pulse Resp BP Pulse Ox O2 Del Method 01/12/24 07:39 91 H 01/12/24 00:28 37.1 C 89 20 168/96 H 92 Room Air 01/11/24 21:54 97 H 01/11/24 20:19 37.3 C 105 H 20 165/91 H 92 Room Air Laboratory Results 01/12/24 01/11/24 01/11/24 Range/Units 05:38 Unknown 20:42 WBC 6.30 (4.8-10.8) K/ul RBC 4.44 (4.20-5.40) M/uL Hgb 12.2 (12.0-16.0) g/dl Hct 35.8 L (37.0-47.0) % MCV 80.6 (80.0-100.0) fL MCH 27.5 (25.0-34.0) pg MCHC 34.1 (32.0-36.0) g/dL RDW Std Deviation 39.6 (36.4-46.3) fL RDW Coeff of [place] 13.6 (11.5-14.5) % Plt Count 302 (130-400) K/uL MPV 8.5 L (9.4-12.4) fL Sodium 130 L (136-145) mmol/L Potassium 4.5 (3.5-5.1) mmol/L Chloride 98 (98-107) mmol/L Carbon Dioxide 24 (21-32) mmol/L Anion Gap 8 (3-11) BUN 6 (6-23) mg/dl Creatinine 0.61 (0.6-1.2) mg/dl Est Cr Clr Drug Dosing 102.0 ml/min Est GFR ( Amer) 109.5 ml/min Est GFR (Non-Af Amer) 94.5 ml/min BUN/Creatinine Ratio 9.8 L (10-20) Glucose 143 H (70-99(Fasting)) mg/dl POC Glucose 144 H (70-99) mg/dl Calcium 9.5 (8.6-10.3) mg/dl Phosphorus 3.8 (2.5-4.9) mg/dl Magnesium 1.6 L (1.7-2.4) mg/dl Urine Osmolality 257 L (500-800) mOsm/kg 01/11/24 01/11/24 01/11/24 Range/Units 17:06 11:50 08:14 WBC (4.8-10.8) K/ul RBC (4.20-5.40) M/uL Hgb (12.0-16.0) g/dl Hct (37.0-47.0) % MCV (80.0-100.0) fL MCH (25.0-34.0) pg MCHC (32.0-36.0) g/dL RDW Std Deviation (36.4-46.3) fL RDW Coeff of [place] (11.5-14.5) % Plt Count (130-400) K/uL MPV (9.4-12.4) fL Sodium (136-145) mmol/L Potassium (3.5-5.1) mmol/L Chloride (98-107) mmol/L Carbon Dioxide (21-32) mmol/L Anion Gap (3-11) BUN (6-23) mg/dl Creatinine (0.6-1.2) mg/dl Est Cr Clr Drug Dosing ml/min Est GFR ( Amer) ml/min Est GFR (Non-Af Amer) ml/min BUN/Creatinine Ratio (10-20) Glucose (70-99(Fasting)) mg/dl POC Glucose 140 H 156 H 114 H (70-99) mg/dl Calcium (8.6-10.3) mg/dl Phosphorus (2.5-4.9) mg/dl Magnesium (1.7-2.4) mg/dl Urine Osmolality (500-800) mOsm/kg Medications Administered Current Inpatient Medications Clonazepam (Clonazepam 1 Mg Tab) 1 mg PO TID PRN PRN Reason: Anxiety Stop: 02/10/24 01:51 Last Admin: 01/12/24 04:19 Dose: 1 mg Dextrose (Dextrose 50% 50 Ml Syringe) 25 - 50 ml IV UD PRN; Protocol PRN Reason: Hypoglycemia Protocol Stop: 02/09/24 08:20 Glucagon (Glucagon For Inj 1 Mg Vial) 1 mg SQ UD PRN; Protocol PRN Reason: Hypoglycemia Protocol Stop: 02/09/24 08:20 Glucose (Glucose 10 Tab/Tube) 4 - 8 tab PO UD PRN; Protocol PRN Reason: Hypoglycemia Treatment Stop: 02/09/24 08:20 Glucose (Glucose 40% Gel 15 Gm Tube) 15 - 30 gm PO UD PRN; Protocol PRN Reason: Hypoglycemia Protocol Stop: 02/09/24 08:20 Promethazine HCl 6.25 mg/ (Sodium Chloride) 50.25 mls @ 201 mls/hr IV Q6H PRN PRN Reason: Nausea And Vomiting Stop: 02/09/24 06:06 Last Infusion: 01/11/24 01:16 Dose: Infused Acetaminophen (Ofirmev) 1,000 mg in 100 mls @ 400 mls/hr IV Q8H PRN PRN Reason: As Needed for Fever or Pain Stop: 01/13/24 15:46 Last Infusion: 01/11/24 23:25 Dose: Infused Magnesium Sulfate/Dextrose (Magnesium Sulfate / D5w) 1 gm in 100 mls @ 50 mls/hr IV ONE ONE Stop: 01/12/24 09:53 Insulin Aspart (Insulin Aspart Per Unit Charge) 0 units SC ACHS [facility] Stop: 02/09/24 08:20 Last Admin: 01/11/24 21:05 Dose: 1 units Magnesium Oxide (Magnesium Oxide 400 Mg Tab) 400 mg PO QAM MARY Stop: 02/11/24 08:59 Melatonin (Melatonin 3 Mg Tab) 3 mg PO HS PRN PRN Reason: Sleep Stop: 02/10/24 01:50 Last Admin: 01/11/24 20:36 Dose: 3 mg Miconazole Nitrate (Miconazole Nitrate Powder 85 Gm) 1 appln EXT TID MARY Stop: 02/10/24 20:59 Last Admin: 01/11/24 21:06 Dose: 1 appln Miscellaneous (Carbohydrates For Hypoglycemia ) 15 - 30 gm PO UD PRN PRN Reason: Hypoglycemia Protocol Stop: 02/09/24 08:20 Oxycodone HCl (Oxycodone Hcl Ir 5 Mg Tab (Immediate Release)) 5 mg PO Q4H PRN PRN Reason: Pain Stop: 01/25/24 01:50 Last Admin: 01/12/24 03:58 Dose: 5 mg Pantoprazole Sodium (Pantoprazole 40 Mg Tab) 40 mg PO DAILY MARY Stop: 02/09/24 08:59 Last Admin: 01/11/24 08:50 Dose: 40 mg Quetiapine Fumarate (Quetiapine Fumarate 200 Mg Tab) 400 mg PO HS MARY Stop: 02/11/24 20:59 Rivaroxaban (Rivaroxaban 20 Mg Tab) 20 mg PO QDD MARY Stop: 02/11/24 16:29
[2024-01-12] MEDS: MAGNESIUM SULFATE / D5W 1 GM/100 ML BAG IV ONE (08:12)
[2024-01-12] MEDS: MAGNESIUM OXIDE 400 MG TAB PO SCH (09:07)
[2024-01-12] MEDS ORDERED: ESCITALOPRAM OXALATE 20 MG TAB PO SCH (09:30)
--- NOTE | 2024-01-12 10:01 | Nephrology Progress Note ---
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 Her urine osm should have been much lower than 163 with serum Na of 121. FFR 1200 ml per day. Much more alert today and had a long conversation today with her. She was drinking massive amount of Water and tea--drinks from Wake up to sleep. easily > than 150 oz per day. Asking for water constantly here. we do have make sure she does not drink extra water from the faucet directly. Urine Incontinent. na improving slowly and now 130. No need of NS or lasix or other meds. (2) Hypomagnesemia: last level was 1.9. Will follow daily mag level. (3) Encephalopathy: (4) Multiple falls: As per primary team. most likely multifactorial cause of AMS. low Na obviously added to the problem and also cause weakness. Agree with plan to hold Multiple meds S---No new issues. Asking for water constantly here. Urine Incontinent. na 130 now PHYSICAL EXAMINATION: GENERAL: alert, unwell appearing, well nourished, no distress, non-toxic OROPHARYNX: MM moist. NECK: supple, non-tender LUNGS: Clear to auscultation. HEART: no murmurs, S1 normal and S2 normal ABDOMEN: abdomen soft, non-tender, obese SKIN: no rashes, petechiae, orbruising EXTREMITIES: No pitting edema. FROM, nml pulses b/l. No evidence of trauma or deformity NEURO EXAM: Somewhat drowsy. No obvious focal deficits noted but exam is limited Results & Data Vital Signs (Past 12 Hours) Vital Signs Temp Pulse Pulse Pulse Resp BP Pulse Ox 01/12/24 07:39 91 H 01/12/24 07:30 37.0 C 90 22 151/87 H 94 01/12/24 00:28 37.1 C 89 20 168/96 H 92 O2 Del Method 01/12/24 07:39 01/12/24 07:30 Room Air 01/12/24 00:28 Room Air
[2024-01-12] MEDS ORDERED: Nursing to Pharmacy Communication SCH (11:00)
[2024-01-12] MEDS: busPIRone 15 MG TAB PO SCH (13:04)
--- NOTE | 2024-01-12 14:20 | Orthopedic Consultation ---
Date of Consultation January 12, 2024 Assessment & Plan (1) Arm pain, left: 65-year-old female with left rotator cuff tendinitis -Weightbearing as tolerated left upper extremity -Pain control -PT/OT -Medical management -Patient is stable from an orthopedic standpoint. No further intervention at this time. May follow-up as an outpatient as needed History of Present Illness Reason for Consultation: Left shoulder pain Attending Physician: Rivera Lee MD History of Present Illness 68-year-old female admitted for metabolic encephalopathy. Patient did note some pain in left shoulder and radiographs were obtained which demonstrate some possible anterior subluxation without dislocation. Orthopedics was consulted for evaluation. Allergies Allergy/AdvReac Type Severity Reaction Status Date / Time bee venom protein (honey bee) Allergy Severe Anaphylaxis Verified 01/10/24 02:33 egg AdvReac Severe Vomiting Verified 01/10/24 02:33 Penicillins AdvReac Severe VOMITING/IT Verified 01/10/24 02:33 DAVON Home Medications Medication Instructions Recorded Confirmed Type benztropine 0.5 mg tablet 0.5 mg PO BID 10/23/23 01/10/24 History buspirone 15 mg tablet 15 mg PO TID 10/23/23 01/10/24 History cholestyramine (with sugar) 4 gram 4 ea PO DAILY 10/23/23 01/10/24 History oral powder clonazepam 1 mg tablet 1 mg PO TID PRN Anxiety 10/23/23 01/10/24 History divalproex 500 mg tablet,extended 1,500 mg PO HS 10/23/23 01/10/24 History release 24 hr escitalopram oxalate 20 mg tablet 20 mg PO DAILY 10/23/23 01/10/24 History gabapentin 100 mg capsule See Rx Instructions .Route .COMPLEX 10/23/23 01/10/24 History bsdovp-wudttxdd-[id number] 1 cap PO AC 10/23/23 01/10/24 History 12,000-38,000-60,000 unit capsule,delayed rel (Creon) metformin 500 mg tablet,extended 500 mg PO BID 10/23/23 01/10/24 History release 24 hr pantoprazole 40 mg tablet,delayed 40 mg PO DAILY 10/23/23 01/10/24 History release quetiapine 400 mg tablet 400 mg PO HS 10/23/23 01/10/24 History rivaroxaban 20 mg tablet (Xarelto) 20 mg PO DAILY 10/23/23 01/10/24 History ropinirole 0.5 mg tablet 0.5 mg PO HS 01/10/24 01/10/24 History Patient History Medical History Weakness Intractable nausea and vomiting Pulmonary embolism Enteritis due to [place] virus Chronic diarrhea Folate deficiency Hypothyroid Generalized weakness Restless leg Rectal bleeding Smoking Aspiration pneumonia Hyperparathyroidism Iron deficiency anemia History of pulmonary embolism Anemia Irritable bowel syndrome Anxiety and depression Schizoaffective disorder GERD (gastroesophageal reflux disease) Diabetes Arthritis Surgical History History of hysterectomy History of cholecystectomy History of section x2 Family History Mother Diabetes Sister Diabetes Denies family history of Inflammatory bowel disease Social History Smoking Status: Never smoker Tobacco Type: Cigarettes Cigarettes Per Day: 40+; Second Hand Exposure: Yes; Do You Dip or Chew Tobacco: No; Hx Alcohol Use: No Hx Substance Use: No Preferred Language: Serbian Communication Ability: Effective 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 How many Children do You have: 2 Feels Safe at Home: Yes Safety Concerns: Feels Safe At This Time Assistive Devices: Walker Physical Exam Constitutional: No acute distress, sitting comfortably in bed eating lunch. Musculoskeletal: Left upper extremity -Nontender to palpation -For flexion 150 degrees, abduction 150 degrees, external rotation 55 degrees - silt a/m/r/u - fires d/bi/tri/wf/we/iglesia + rad Results & Data Vital Signs (Past 12 Hours) Vital Signs Temp Pulse Pulse Resp BP Pulse Ox Pulse Ox 01/12/24 13:00 94 01/12/24 11:22 36.8 C 84 20 160/82 H 94 01/12/24 10:49 01/12/24 07:39 91 H 01/12/24 07:30 37.0 C 90 22 151/87 H 94 O2 Del Method O2 Del Method 01/12/24 13:00 Room Air 02/28/24 11:22 Room Air 01/12/24 10:49 Room Air 01/12/24 07:39 01/12/24 07:30 Room Air Diagnostic Findings Radiographs of the left shoulder demonstrate well-maintained glenohumeral joint space there is no evidence of fracture or dislocation there is some slight anterior subluxation
--- NOTE | 2024-01-12 15:02 | Electrocardiogram Report ---
Test Reason : Blood Pressure : / mmHG Vent. Rate : 091 BPM Atrial Rate : 091 BPM P-R Int : 164 ms QRS Dur : 132 ms QT Int : 400 ms P-R-T Axes : 050 112 030 degrees QTc Int : 492 ms Normal sinus rhythm Right bundle branch block Abnormal ECG When compared with ECG of 10-JAN-2024 02:10, Premature ventricular complexes are no longer Present T wave inversion no longer evident in Lateral leads Confirmed by Dave Real [id number]) on 01/12/2024 3:02:05 PM Referred By: REFERRED SELF Confirmed By:Dave Real
[2024-01-12] MEDS: DIVALPROEX EXTENDED RELEASE 500 MG TAB PO SCH (16:59)
[2024-01-12] MEDS: RIVAROXABAN 20 MG TAB PO SCH (16:59)
[2024-01-12] MEDS: LIDOCAINE 5% 1 PATCH TD STA (18:27)
[2024-01-12] MEDS ORDERED: DIVALPROEX EXTENDED RELEASE 500 MG TAB PO SCH (21:00)
[2024-01-12] MEDS: QUEtiapine FUMARATE 200 MG TAB PO SCH (21:34)
[2024-01-13 05:34] LABS: Calcium 9.9 mg/dl (8.6-10.3); Creatinine Clr Calc Pharmacy 88.9 ml/min; Est GFR (African American) 104.6 ml/min; Est GFR (Non-African American) 90.3 ml/min; Magnesium 1.7 mg/dl (1.7-2.4); Phosphorus 4.4 mg/dl (2.5-4.9); Potassium 4.4 mmol/L (3.5-5.1)
[2024-01-13 05:38] LABS: Hematocrit (blood only) 37.3 % (37.0-47.0); Hemoglobin 12.3 g/dl (12.0-16.0); Mean Corpuscular Hemoglobin 27.5 pg (25.0-34.0); Mean Corpuscular Volume 83.4 fL (80.0-100.0); Mean Platelet Volume 8.7 fL (9.4-12.4); Platelet Count 296 K/uL (130-400); RDW Coefficient of Variation 13.8 % (11.5-14.5); RDW Standard Deviation 42.1 fL (36.4-46.3); Red Blood Count 4.47 M/uL (4.20-5.40); White Blood Count 7.65 K/ul (4.8-10.8)
--- NOTE | 2024-01-13 08:25 | Hospitalist Progress Note ---
Date of Service January 13, 2024 Assessment & Plan (1) Encephalopathy: Plan Pt is a 68yoF with PMHx significant for history of PE on Xarelto, DM 2 on oral medications, chronic anemia (baseline hemoglobin of 11), GERD, IBS, chronic pain, schizophrenia/anxiety/mood disorder, ongoing tobacco abuse admitted with acute encephalopathy. Acute metabolic Encephalopathy Pt very lethargic on admission likely Multifactorial, Hyponatremic Multiple home neuropsychotropic medications contributory Rule out hyperammonemia, valproic acid toxicity- both within normal limits Psych consulted with holding of psychotropic meds-appreciate recs to re-start Pt's mental status improved per previous providers - for me she is drowsy but able to answer some simple questions appropriately Hyponatremia Pt with noted sodium 121 on admission, baseline of 134 in October Careful correction of sodium Hyponatremia workup Nephrology consulted, appreciate recs -consistent with psychogenic polydipsia, currently on fluid restriction. Traumatic LUE pain Hx of falls rule out bony injury Left shoulder xray noting no acute fracture or dislocation but does note slight subluxation Pt with significant pain Orthopedics consulted- appreciate recs - 65-year-old female with left rotator cuff tendinitis -Weightbearing as tolerated left upper extremity -Pain control -PT/OT -Medical management -Patient is stable from an orthopedic standpoint. No further intervention at this time. May follow-up as an outpatient as needed Continue with pain control, ice to affected area, lidocaine patch PT OT eval once medically stable (pt has been refusing to work with PT), may need placement given recurrent falls Intertrigo Started on desenex cream DM 2 on oral medications suboptimal control of recent hemoglobin A1c of 7.9 last October 2023 [facility] PCP follow up Chronic anemia hemoglobin at baseline, 11.4 On xarelto Monitor H/H once restarted Hx of PE Xarelto was on hold in setting of falls and trauma Resume on 01/12 Monitor hgb as above schizophrenia/anxiety/mood disorder RLS psych consulted with holding of psychotropic meds-appreciate recs to re-start and prevent further AMS in the future -seroquel and klonipin has been re-started -Holding the other meds (benztropine, buspar, divalproex, lexapro, gabapentin, ropinirole) resume as able based on psych recs - discussed w/ psych - holding ropinirole, benztropine pt continues to be drowsy - discussed again w/ psych - will decrease seroquel to 300, decrease clonazapine to 0.5 ongoing tobacco abuse Nicotine patch as needed encourage cessation DVT prophylaxis. everardo Full code Admission and Anticipated Discharge Date Admission Date: January 10, 2024 Subjective Pt seen in follow up of AMS, hyponatremia, on multiple psychotropic meds, and psychiatry consulted Nephrology consulted for hyponatremia - now on fluid restriction - for psychogenic polydipsia Orthopedics consulted for shoulder pain, abnormal XR Laying in bed in NAD, however again quite drowsy. Per previous providers, she was more alert before. I discussed with psychiatry, and restarted some of her home medications. She was also getting some oxycodone for pain, which was stopped yesterday. Denies any chest pain or shortness of breath, denies any fevers chills, denies any abdominal pain nausea vomiting. Per RN, when pt more awake, complains of l shoulder pain. Review of Systems Review of Systems: All systems reviewed & are unremarkable except as noted in Subjective Physical Exam Physical Exam: General: WD/WN in NAD HEENT: NC/AT CV: RRR, Resp: no increased effort of breathing Abdomen:Soft, nontender Neuro/psych: drowsy, however able to answer some simple questions appropriately, +left shoulder pain (improved), speech fluent, no facial asymmetry, moves extremities Results & Data Results & Data Vital Signs (Past 12 Hours) Vital Signs Temp Pulse Pulse Resp BP BP Pulse Ox 01/13/24 07:53 37.2 C 102 H 18 130/84 92 01/13/24 04:46 37 C 110 H 17 128/77 93 01/13/24 00:24 36.7 C 105 H 20 139/86 93 01/12/24 22:00 94 H 01/12/24 20:42 37.2 C 85 20 131/81 94 O2 Del Method 01/13/24 07:53 Room Air 01/13/24 04:46 Room Air 01/13/24 00:24 Room Air 01/12/24 22:00 01/12/24 20:42 Room Air Laboratory Results 01/13/24 01/12/24 01/12/24 Range/Units 04:44 21:06 17:30 WBC 7.65 (4.8-10.8) K/ul RBC 4.47 (4.20-5.40) M/uL Hgb 12.3 (12.0-16.0) g/dl Hct 37.3 (37.0-47.0) % MCV 83.4 (80.0-100.0) fL MCH 27.5 (25.0-34.0) pg MCHC 33.0 (32.0-36.0) g/dL RDW Std Deviation 42.1 (36.4-46.3) fL RDW Coeff of [place] 13.8 (11.5-14.5) % Plt Count 296 (130-400) K/uL MPV 8.7 L (9.4-12.4) fL Sodium 134 L (136-145) mmol/L Potassium 4.4 (3.5-5.1) mmol/L Chloride 100 (98-107) mmol/L Carbon Dioxide 26 (21-32) mmol/L Anion Gap 8 (3-11) BUN 7 (6-23) mg/dl Creatinine 0.70 (0.6-1.2) mg/dl Est Cr Clr Drug Dosing 88.9 ml/min Est GFR ( Amer) 104.6 ml/min Est GFR (Non-Af Amer) 90.3 ml/min BUN/Creatinine Ratio 10.0 (10-20) Glucose 148 H (70-99(Fasting)) mg/dl POC Glucose 147 H 158 H (70-99) mg/dl Calcium 9.9 (8.6-10.3) mg/dl Phosphorus 4.4 (2.5-4.9) mg/dl Magnesium 1.7 (1.7-2.4) mg/dl 01/12/24 01/12/24 Range/Units 12:11 08:21 WBC (4.8-10.8) K/ul RBC (4.20-5.40) M/uL Hgb (12.0-16.0) g/dl Hct (37.0-47.0) % MCV (80.0-100.0) fL MCH (25.0-34.0) pg MCHC (32.0-36.0) g/dL RDW Std Deviation (36.4-46.3) fL RDW Coeff of [place] (11.5-14.5) % Plt Count (130-400) K/uL MPV (9.4-12.4) fL Sodium (136-145) mmol/L Potassium (3.5-5.1) mmol/L Chloride (98-107) mmol/L Carbon Dioxide (21-32) mmol/L Anion Gap (3-11) BUN (6-23) mg/dl Creatinine (0.6-1.2) mg/dl Est Cr Clr Drug Dosing ml/min Est GFR ( Amer) ml/min Est GFR (Non-Af Amer) ml/min BUN/Creatinine Ratio (10-20) Glucose (70-99(Fasting)) mg/dl POC Glucose 143 H 147 H (70-99) mg/dl Calcium (8.6-10.3) mg/dl Phosphorus (2.5-4.9) mg/dl Magnesium (1.7-2.4) mg/dl Medications Administered Current Inpatient Medications Buspirone HCl (Buspirone 15 Mg Tab) 15 mg PO TID [facility] Stop: 02/11/24 13:59 Last Admin: 01/12/24 21:33 Dose: 15 mg Clonazepam (Clonazepam 1 Mg Tab) 1 mg PO TID PRN PRN Reason: Anxiety Stop: 02/10/24 01:51 Last Admin: 01/13/24 02:21 Dose: 1 mg Dextrose (Dextrose 50% 50 Ml Syringe) 25 - 50 ml IV UD PRN; Protocol PRN Reason: Hypoglycemia Protocol Stop: 02/09/24 08:20 Divalproex Sodium (Divalproex Extended Release 500 Mg Tab) 1,500 mg PO 1700 MARY Stop: 02/11/24 16:59 Last Admin: 01/12/24 16:59 Dose: 1,500 mg Escitalopram Oxalate (Escitalopram Oxalate 20 Mg Tab) 20 mg PO DAILY [facility] Stop: 02/11/24 09:29 Glucagon (Glucagon For Inj 1 Mg Vial) 1 mg SQ UD PRN; Protocol PRN Reason: Hypoglycemia Protocol Stop: 02/09/24 08:20 Glucose (Glucose 10 Tab/Tube) 4 - 8 tab PO UD PRN; Protocol PRN Reason: Hypoglycemia Treatment Stop: 02/09/24 08:20 Glucose (Glucose 40% Gel 15 Gm Tube) 15 - 30 gm PO UD PRN; Protocol PRN Reason: Hypoglycemia Protocol Stop: 02/09/24 08:20 Promethazine HCl 6.25 mg/ (Sodium Chloride) 50.25 mls @ 201 mls/hr IV Q6H PRN PRN Reason: Nausea And Vomiting Stop: 02/09/24 06:06 Last Infusion: 01/11/24 01:16 Dose: Infused Acetaminophen (Ofirmev) 1,000 mg in 100 mls @ 400 mls/hr IV Q8H PRN PRN Reason: As Needed for Fever or Pain Stop: 01/13/24 15:46 Last Infusion: 01/12/24 17:13 Dose: Infused Magnesium Sulfate/Dextrose (Magnesium Sulfate / D5w) 1 gm in 100 mls @ 50 mls/hr IV ONE ONE Stop: 01/13/24 10:20 Insulin Aspart (Insulin Aspart Per Unit Charge) 0 units SC ACHS [facility] Stop: 02/09/24 08:20 Last Admin: 01/12/24 21:44 Dose: 1 units Magnesium Oxide (Magnesium Oxide 400 Mg Tab) 400 mg PO QAM [facility] Stop: 02/11/24 08:59 Last Admin: 01/12/24 09:07 Dose: 400 mg Melatonin (Melatonin 3 Mg Tab) 3 mg PO HS PRN PRN Reason: Sleep Stop: 02/10/24 01:50 Last Admin: 01/12/24 21:44 Dose: 3 mg Miconazole Nitrate (Miconazole Nitrate Powder 85 Gm) 1 appln EXT TID [facility] Stop: 02/10/24 20:59 Last Admin: 01/12/24 21:38 Dose: 1 appln Miscellaneous (Carbohydrates For Hypoglycemia ) 15 - 30 gm PO UD PRN PRN Reason: Hypoglycemia Protocol Stop: 02/09/24 08:20 Oxycodone HCl (Oxycodone Hcl Ir 5 Mg Tab (Immediate Release)) 5 mg PO Q4H PRN PRN Reason: Pain Stop: 01/25/24 01:50 Last Admin: 01/12/24 12:36 Dose: 5 mg Pantoprazole Sodium (Pantoprazole 40 Mg Tab) 40 mg PO DAILY [facility] Stop: 02/09/24 08:59 Last Admin: 01/12/24 08:12 Dose: 40 mg Quetiapine Fumarate (Quetiapine Fumarate 200 Mg Tab) 400 mg PO HS [facility] Stop: 02/11/24 20:59 Last Admin: 01/12/24 21:34 Dose: 400 mg Rivaroxaban (Rivaroxaban 20 Mg Tab) 20 mg PO QDD MARY Stop: 02/11/24 16:29 Last Admin: 01/12/24 16:59 Dose: 20 mg
[2024-01-13] MEDS: MAGNESIUM SULFATE / D5W 1 GM/100 ML BAG IV ONE (09:04)
--- NOTE | 2024-01-13 12:55 | Nephrology Progress Note ---
Date of Service January 13, 2024 Assessment & Plan Admission and Anticipated Discharge Date Admission Date: January 10, 2024 Subjective Assessment & Plan (1) Hyponatremia: euvolemic On exam and quite dilute urine So this is more consistent with Psychogenic Polydipsia ( confirmed by fluid interview with patient and daughter ) however there is obviously significant problem with inadequate urinary dilution problem. Her urine osm should have been much lower than 163 with serum Na of 121. FFR 1200 ml per day. Much more alert today and had a long conversation today with her. She was drinking massive amount of Water and tea--drinks from Wake up to sleep. easily > than 150 oz per day. Asking for water constantly here. we do have make sure she does not drink extra water from the faucet directly. Urine Incontinent. na improving slowly and now 134. Very critical that she does not drink crazy amount of water like she was doing prior to hospitalization--- as per patient she drinks the entire time she is awake constantly. her daughter confirmed that at times patient finish the whole case of water in a day (2) Hypomagnesemia: last level was 1.9. Will follow daily mag level. (3) Encephalopathy: (4) Multiple falls: As per primary team. most likely multifactorial cause of AMS. low Na obviously added to the problem and also cause weakness. Agree with plan to hold Multiple meds S---No new issues. Asking for water here. Urine Incontinent. na 134 now PHYSICAL EXAMINATION: GENERAL: alert, unwell appearing, well nourished, no distress, non-toxic OROPHARYNX: MM moist. NECK: supple, non-tender LUNGS: Clear to auscultation. HEART: no murmurs, S1 normal and S2 normal ABDOMEN: abdomen soft, non-tender, obese SKIN: no rashes, petechiae, orbruising EXTREMITIES: No pitting edema. FROM, nml pulses b/l. No evidence of trauma or deformity NEURO EXAM: Somewhat drowsy. No obvious focal deficits noted but exam is limited Results & Data Vital Signs (Past 12 Hours) Vital Signs Temp Pulse Pulse Resp BP BP Pulse Ox 01/13/24 12:11 37.0 C 94 H 19 125/83 93 01/13/24 07:53 37.2 C 102 H 18 130/84 92 01/13/24 07:30 105 H 01/13/24 04:46 37 C 110 H 17 128/77 93 O2 Del Method 01/13/24 12:11 Room Air 01/13/24 07:53 Room Air 01/13/24 07:30 01/13/24 04:46 Room Air
[2024-01-13] MEDS: LIDOCAINE 5% 1 PATCH TD SCH (18:21)
[2024-01-13] MEDS ORDERED: clonazePAM 0.5 MG TAB PO PRN (19:09)
[2024-01-13] MEDS ORDERED: busPIRone 5 MG TAB PO SCH (21:00)
[2024-01-13] MEDS: QUEtiapine FUMARATE 300 MG TABLET PO SCH (23:43)
[2024-01-14 05:23] LABS: Hematocrit (blood only) 37.2 % (37.0-47.0); Hemoglobin 11.8 g/dl (12.0-16.0); Mean Corpuscular Hemoglobin 26.9 pg (25.0-34.0); Mean Corpuscular Hgb Conc 31.7 g/dL (32.0-36.0); Mean Corpuscular Volume 84.7 fL (80.0-100.0); Mean Platelet Volume 8.8 fL (9.4-12.4); Platelet Count 294 K/uL (130-400); RDW Coefficient of Variation 14.2 % (11.5-14.5); RDW Standard Deviation 43.8 fL (36.4-46.3); Red Blood Count 4.39 M/uL (4.20-5.40)
[2024-01-14 05:35] LABS: BUN Creatinine Ratio 17.9 (10-20); Calcium 9.4 mg/dl (8.6-10.3); Est GFR (African American) 83.9 ml/min; Est GFR (Non-African American) 72.4 ml/min; Magnesium 1.7 mg/dl (1.7-2.4); Phosphorus 3.5 mg/dl (2.5-4.9); Potassium 4.2 mmol/L (3.5-5.1)
--- NOTE | 2024-01-14 08:50 | Hospitalist Progress Note ---
Date of Service January 14, 2024 Assessment & Plan (1) Encephalopathy: Plan Pt is a 68yoF with PMHx significant for history of PE on Xarelto, DM 2 on oral medications, chronic anemia (baseline hemoglobin of 11), GERD, IBS, chronic pain, schizophrenia/anxiety/mood disorder, ongoing tobacco abuse admitted with acute encephalopathy. Acute metabolic Encephalopathy Pt very lethargic on admission likely Multifactorial, Hyponatremic Multiple home neuropsychotropic medications contributory Rule out hyperammonemia, valproic acid toxicity- both within normal limits Psych consulted with holding of psychotropic meds-appreciate recs to re-start Pt's mental status improved per previous providers - for me she is drowsy but able to answer some simple questions appropriately Changing medications doses as below. Hyponatremia Pt with noted sodium 121 on admission, baseline of 134 in October Careful correction of sodium Hyponatremia workup Nephrology consulted, appreciate recs -consistent with psychogenic polydipsia, currently on fluid restriction. Na level improved to 134 Traumatic LUE pain Hx of falls rule out bony injury Left shoulder xray noting no acute fracture or dislocation but does note slight subluxation Pt with significant pain Orthopedics consulted- appreciate recs - 65-year-old female with left rotator cuff tendinitis -Weightbearing as tolerated left upper extremity -Pain control -PT/OT -Medical management -Patient is stable from an orthopedic standpoint. No further intervention at this time. May follow-up as an outpatient as needed Continue with pain control, ice to affected area, lidocaine patch PT OT eval once medically stable (pt has been refusing to work with PT), may need placement given recurrent falls Intertrigo Started on desenex cream DM 2 on oral medications suboptimal control of recent hemoglobin A1c of 7.9 last October 2023 [facility] PCP follow up Chronic anemia hemoglobin at baseline, 11.4 On xarelto Monitor H/H once restarted Hx of PE Xarelto was on hold in setting of falls and trauma Resume on 01/12 Monitor hgb as above schizophrenia/anxiety/mood disorder RLS psych consulted with holding of psychotropic meds-appreciate recs to re-start and prevent further AMS in the future -seroquel and klonipin has been re-started -Holding the other meds (benztropine, buspar, divalproex, lexapro, gabapentin, ropinirole) resume as able based on psych recs - discussed w/ psych - holding ropinirole, benztropine pt continues to be drowsy - discussed again w/ psych - will decrease seroquel to 300, decrease clonazapine to 0.5 01/13 Pt still very drowsy - discussed w/ psych again - will decrease seroquel to 200 ongoing tobacco abuse Nicotine patch as needed encourage cessation DVT prophylaxis. everardo Full code Admission and Anticipated Discharge Date Admission Date: January 10, 2024 Subjective Pt seen in follow up of AMS, hyponatremia, on multiple psychotropic meds, and psychiatry consulted Nephrology consulted for hyponatremia - now on fluid restriction - for psychogenic polydipsia Orthopedics consulted for shoulder pain, abnormal XR Laying in bed in NAD, however again quite drowsy. Per previous providers, she was more alert before. I discussed with psychiatry, and restarted some of her home medications. She was also getting some oxycodone for pain, which was stopped several days ago. Discussed again w/ psychiatry today - as this the 3rd day I'm seeing her and she is extremely somnolent - will decrease seroquel even more - to 200 mg HS. Tried to contact pt's daughter but only was able to leave a message. Per RN, when pt more awake, complains of left shoulder pain. Review of Systems Review of Systems: Unobtainable due to cognitive status Physical Exam Physical Exam: General: WD/WN in NAD HEENT: NC/AT CV: RRR, Resp: no increased effort of breathing Abdomen:Soft, nontender Neuro/psych: drowsy, however able to answer some simple questions appropriately, +left shoulder pain (improved), speech fluent, no facial asymmetry, moves extremities Results & Data Results & Data Vital Signs (Past 12 Hours) Vital Signs Temp Pulse Pulse Resp BP BP Pulse Ox 01/14/24 08:20 36.8 C 102 H 17 114/73 96 01/14/24 03:39 36.7 C 109 H 19 151/73 H 92 01/13/24 23:21 01/13/24 22:41 37 C 92 H 16 122/81 93 01/13/24 21:59 92 H O2 Del Method 01/14/24 08:20 Room Air 01/14/24 03:39 Room Air 01/13/24 23:21 Room Air 01/13/24 22:41 Room Air 01/13/24 21:59 Laboratory Results 01/14/24 01/14/24 01/13/24 Range/Units 08:19 04:47 20:33 WBC 8.50 (4.8-10.8) K/ul RBC 4.39 (4.20-5.40) M/uL Hgb 11.8 L (12.0-16.0) g/dl Hct 37.2 (37.0-47.0) % MCV 84.7 (80.0-100.0) fL MCH 26.9 (25.0-34.0) pg MCHC 31.7 L (32.0-36.0) g/dL RDW Std Deviation 43.8 (36.4-46.3) fL RDW Coeff of Vernon 14.2 (11.5-14.5) % Plt Count 294 (130-400) K/uL MPV 8.8 L (9.4-12.4) fL Sodium 134 L (136-145) mmol/L Potassium 4.2 (3.5-5.1) mmol/L Chloride 101 (98-107) mmol/L Carbon Dioxide 26 (21-32) mmol/L Anion Gap 7 (3-11) BUN 15 (6-23) mg/dl Creatinine 0.84 (0.6-1.2) mg/dl Est Cr Clr Drug Dosing 73.0 ml/min Est GFR ( Amer) 83.9 ml/min Est GFR (Non-Af Amer) 72.4 ml/min BUN/Creatinine Ratio 17.9 (10-20) Glucose 157 H (70-99(Fasting)) mg/dl POC Glucose 152 H 151 H (70-99) mg/dl Calcium 9.4 (8.6-10.3) mg/dl Phosphorus 3.5 (2.5-4.9) mg/dl Magnesium 1.7 (1.7-2.4) mg/dl 01/13/24 01/13/24 Range/Units 17:41 08:49 WBC (4.8-10.8) K/ul RBC (4.20-5.40) M/uL Hgb (12.0-16.0) g/dl Hct (37.0-47.0) % MCV (80.0-100.0) fL MCH (25.0-34.0) pg MCHC (32.0-36.0) g/dL RDW Std Deviation (36.4-46.3) fL RDW Coeff of [place] (11.5-14.5) % Plt Count (130-400) K/uL MPV (9.4-12.4) fL Sodium (136-145) mmol/L Potassium (3.5-5.1) mmol/L Chloride (98-107) mmol/L Carbon Dioxide (21-32) mmol/L Anion Gap (3-11) BUN (6-23) mg/dl Creatinine (0.6-1.2) mg/dl Est Cr Clr Drug Dosing ml/min Est GFR ( Amer) ml/min Est GFR (Non-Af Amer) ml/min BUN/Creatinine Ratio (10-20) Glucose (70-99(Fasting)) mg/dl POC Glucose 135 H 141 H (70-99) mg/dl Calcium (8.6-10.3) mg/dl Phosphorus (2.5-4.9) mg/dl Magnesium (1.7-2.4) mg/dl Medications Administered Current Inpatient Medications Buspirone HCl (Buspirone 5 Mg Tab) 10 mg PO TID MARY Stop: 02/12/24 20:59 Clonazepam (Clonazepam 0.5 Mg Tab) 0.5 mg PO TID PRN PRN Reason: Anxiety Stop: 02/10/24 01:51 Dextrose (Dextrose 50% 50 Ml Syringe) 25 - 50 ml IV UD PRN; Protocol PRN Reason: Hypoglycemia Protocol Stop: 02/09/24 08:20 Divalproex Sodium (Divalproex Extended Release 500 Mg Tab) 1,500 mg PO 1700 MARY Stop: 02/11/24 16:59 Last Admin: 01/13/24 17:55 Dose: 1,500 mg Escitalopram Oxalate (Escitalopram Oxalate 20 Mg Tab) 20 mg PO DAILY [facility] Stop: 02/11/24 09:29 Glucagon (Glucagon For Inj 1 Mg Vial) 1 mg SQ UD PRN; Protocol PRN Reason: Hypoglycemia Protocol Stop: 02/09/24 08:20 Glucose (Glucose 10 Tab/Tube) 4 - 8 tab PO UD PRN; Protocol PRN Reason: Hypoglycemia Treatment Stop: 02/09/24 08:20 Glucose (Glucose 40% Gel 15 Gm Tube) 15 - 30 gm PO UD PRN; Protocol PRN Reason: Hypoglycemia Protocol Stop: 02/09/24 08:20 Promethazine HCl 6.25 mg/ (Sodium Chloride) 50.25 mls @ 201 mls/hr IV Q6H PRN PRN Reason: Nausea And Vomiting Stop: 02/09/24 06:06 Last Infusion: 01/11/24 01:16 Dose: Infused Insulin Aspart (Insulin Aspart Per Unit Charge) 0 units SC ACHS [facility] Stop: 02/09/24 08:20 Last Admin: 01/13/24 22:36 Dose: 1 units Lidocaine (Lidocaine 5% 1 Patch) 1 patch TD DAILY@1730 [facility] Stop: 02/12/24 17:29 Last Admin: 01/13/24 18:21 Dose: 1 patch Magnesium Oxide (Magnesium Oxide 400 Mg Tab) 400 mg PO QAM [facility] Stop: 02/11/24 08:59 Last Admin: 01/13/24 08:47 Dose: 400 mg Melatonin (Melatonin 3 Mg Tab) 3 mg PO HS PRN PRN Reason: Sleep Stop: 02/10/24 01:50 Last Admin: 01/12/24 21:44 Dose: 3 mg Miconazole Nitrate (Miconazole Nitrate Powder 85 Gm) 1 appln EXT TID [facility] Stop: 02/10/24 20:59 Last Admin: 01/13/24 22:36 Dose: 1 appln Miscellaneous (Carbohydrates For Hypoglycemia ) 15 - 30 gm PO UD PRN PRN Reason: Hypoglycemia Protocol Stop: 02/09/24 08:20 Miscellaneous (Remove Lidoderm Patch) 1 each N/A DAILY@0530 [facility] Stop: 02/13/24 05:29 Last Admin: 01/14/24 06:38 Dose: 1 each Oxycodone HCl (Oxycodone Hcl Ir 5 Mg Tab (Immediate Release)) 5 mg PO Q4H PRN PRN Reason: Pain Stop: 01/25/24 01:50 Last Admin: 01/12/24 12:36 Dose: 5 mg Pantoprazole Sodium (Pantoprazole 40 Mg Tab) 40 mg PO DAILY [facility] Stop: 02/09/24 08:59 Last Admin: 01/13/24 08:47 Dose: 40 mg Quetiapine Fumarate (Quetiapine Fumarate 300 Mg Tablet) 300 mg PO HS [facility] Stop: 02/12/24 20:59 Last Admin: 01/13/24 23:43 Dose: 300 mg Rivaroxaban (Rivaroxaban 20 Mg Tab) 20 mg PO QDD [facility] Stop: 02/11/24 16:29 Last Admin: 01/13/24 17:55 Dose: 20 mg
--- NOTE | 2024-01-14 13:13 | Psychiatric Progress Note ---
Date of Service January 14, 2024 Impression / Recommendations Impression I discussed the case with Dr. Frost. It is certainly possible that the medications that she is on could be contributing to her falls, but the patient is terrified about getting rid of anything. She has done so well with her medications for her depression and psychosis as well as anxiety over the last 2 years, that she is terrified to make a change. Nevertheless, the combination of Seroquel, clonazepam, and ropinirole be contributing to orthostasis and increase the risk of a fall. Also several of the meds could be causing sedation or confusion including benztropine, clonazepam, divalproex, gabapentin, quetiapine, and ropinirole. As far as mood, the patient is doing extremely well. She is in a good mood and has no suicidal ideation. I do not think she is in any risk of suicide or homicide. 01/14/24: I discussed the case with Dr. Lee. Either she is withdrawing from something or she is oversedated by her medications. There is also a chance that she was not taking her medications at home and would she started getting them here, it overwhelmed her and made her very tired. She is on a number of sedating meds. (1) Schizoaffective disorder: Plan 1. I would suggest trying to eliminate some of the nonpsychiatric medications if possible and if they are not needed terribly. 2. Another option would be to separate the timing of her Seroquel and c lonazepam so that they do not add up an sedation when they are taken too closely together. Also, they both might contribute to respiratory depression. 3. Psychiatry is going to sign off at this time, but we are available to discuss the case further if necessary. Just give me or the mental health nurse liaison to call and we can discuss further or I can reevaluate the patient further. Thanks for the consultation. It was a pleasure meeting this lady and I hope she does well. 01/14/24: We are going to decrease the Seroquel down to 200 mg at bedtime. I lowered the clonazepam to 0.5 mg in the morning and at dinnertime. I want to split the time so that she is not getting clonazepam and Seroquel at the same time. We will stay off of the buspirone and Lexapro for now. She has not received any oxycodone or promethazine in a few days. We will continue to follow. Today I spent about 40 minutes on the case. This included meeting with the patient, reviewing the chart, discussing the case with the mental health nurse liaison, discussing the case with the attending, orders, and documentation. Suicide Risk Level Suicide Risk Level: Low (q15 min observation checks) Interval History Identifying Information Tierra is a 68-year-old female who lives in [place], [place]. She presented to the hospital on January 11 after a couple of falls at home. I was asked to see her by Dr. Lionel Garduno because of "med mx, multiple neuropsych meds." Chief Complaint "I keep falling." Subjective Subjective Today I was asked by Dr. Lee to see the patient again. The last 2 days the patient has been overly sedated and were not clear why. We have tried backing off on Seroquel and clonazepam. The attending is also eliminated the Lexapro a nd buspirone as well. Nevertheless, she is still pretty tired. When I went in to meet with her today, she aroused enough to answer a few questions but she kept drifting back to sleep. She denies that any discomfort. She is not having any suicidal ideation. In the nursing notes, it documents that she has not been really getting up and moving around like she should. Physical Exam Psychiatric Patient was lethargic. She knew she was in the hospital. Eye contact was poor. Speech was slightly slurred. Mood was "fine." Affect was flat. Thought process was very sluggish. There was no evidence of any hallucinations or delusions. She denied suicidal ideation. Memory and concentration could not be assessed because of her sedation. Insight and judgment are poor. Vital Signs (Past 24 Hours) Last Vital Signs Temp 36.7 C 01/14/24 11:29 Pulse 82 01/14/24 11:29 Resp 17 01/14/24 11:29 BP 112/75 01/14/24 11:29 Pulse Ox 97 01/14/24 11:29 O2 Del Method Room Air 01/14/24 11:29 Results & Data ([facility]) Laboratory Results Laboratory Results - last 24 hr 01/13/24 01/13/24 01/14/24 17:41 20:33 04:47 WBC 8.50 RBC 4.39 Hgb 11.8 L Hct 37.2 MCV 84.7 MCH 26.9 MCHC 31.7 L RDW Std Deviation 43.8 RDW Coeff of [place] 14.2 Plt Count 294 MPV 8.8 L Sodium 134 L Potassium 4.2 Chloride 101 Carbon Dioxide 26 Anion Gap 7 BUN 15 Creatinine 0.84 Est Cr Clr Drug Dosing 73.0 Est GFR ( Amer) 83.9 Est GFR (Non-Af Amer) 72.4 BUN/Creatinine Ratio 17.9 Glucose 157 H POC Glucose 135 H 151 H Calcium 9.4 Phosphorus 3.5 Magnesium 1.7 01/14/24 01/14/24 08:19 12:16 WBC RBC Hgb Hct MCV MCH MCHC RDW Std Deviation RDW Coeff of [place] Plt Count MPV Sodium Potassium Chloride Carbon Dioxide Anion Gap BUN Creatinine Est Cr Clr Drug Dosing Est GFR ( Amer) Est GFR (Non-Af Amer) BUN/Creatinine Ratio Glucose POC Glucose 152 H 119 H Calcium Phosphorus Magnesium Current Inpatient Medications Current Inpatient Medications: Current Inpatient Medications Acetaminophen (Acetaminophen 325 Mg Tab) 650 mg PO Q4H PRN PRN Reason: Pain Stop: 02/13/24 11:46 Buspirone HCl (Buspirone 5 Mg Tab) 10 mg PO TID MARY Stop: 02/12/24 20:59 Clonazepam (Clonazepam 0.5 Mg Tab) 0.5 mg PO TID PRN PRN Reason: Anxiety Stop: 02/10/24 01:51 Dextrose (Dextrose 50% 50 Ml Syringe) 25 - 50 ml IV UD PRN; Protocol PRN Reason: Hypoglycemia Protocol Stop: 02/09/24 08:20 Divalproex Sodium (Divalproex Extended Release 500 Mg Tab) 1,500 mg PO 1700 [facility] Stop: 02/11/24 16:59 Last Admin: 01/13/24 17:55 Dose: 1,500 mg Escitalopram Oxalate (Escitalopram Oxalate 20 Mg Tab) 20 mg PO DAILY [facility] Stop: 02/11/24 09:29 Glucagon (Glucagon For Inj 1 Mg Vial) 1 mg SQ UD PRN; Protocol PRN Reason: Hypoglycemia Protocol Stop: 02/09/24 08:20 Glucose (Glucose 10 Tab/Tube) 4 - 8 tab PO UD PRN; Protocol PRN Reason: Hypoglycemia Treatment Stop: 02/09/24 08:20 Glucose (Glucose 40% Gel 15 Gm Tube) 15 - 30 gm PO UD PRN; Protocol PRN Reason: Hypoglycemia Protocol Stop: 02/09/24 08:20 Promethazine HCl 6.25 mg/ (Sodium Chloride) 50.25 mls @ 201 mls/hr IV Q6H PRN PRN Reason: Nausea And Vomiting Stop: 02/09/24 06:06 Last Infusion: 01/11/24 01:16 Dose: Infused Insulin Aspart (Insulin Aspart Per Unit Charge) 0 units SC ACHS [facility] Stop: 02/09/24 08:20 Last Admin: 01/14/24 08:57 Dose: 5 units Lidocaine (Lidocaine 5% 1 Patch) 1 patch TD DAILY@1730 [facility] Stop: 02/12/24 17:29 Last Admin: 01/13/24 18:21 Dose: 1 patch Magnesium Oxide (Magnesium Oxide 400 Mg Tab) 400 mg PO QAM [facility] Stop: 02/11/24 08:59 Last Admin: 01/14/24 08:55 Dose: 400 mg Melatonin (Melatonin 3 Mg Tab) 3 mg PO HS PRN PRN Reason: Sleep Stop: 02/10/24 01:50 Last Admin: 01/12/24 21:44 Dose: 3 mg Miconazole Nitrate (Miconazole Nitrate Powder 85 Gm) 1 appln EXT TID [facility] Stop: 02/10/24 20:59 Last Admin: 01/14/24 08:55 Dose: 1 appln Miscellaneous (Carbohydrates For Hypoglycemia ) 15 - 30 gm PO UD PRN PRN Reason: Hypoglycemia Protocol Stop: 02/09/24 08:20 Miscellaneous (Remove Lidoderm Patch) 1 each N/A DAILY@0530 [facility] Stop: 02/13/24 05:29 Last Admin: 01/14/24 06:38 Dose: 1 each Oxycodone HCl (Oxycodone Hcl Ir 5 Mg Tab (Immediate Release)) 5 mg PO Q4H PRN PRN Reason: Pain Stop: 01/25/24 01:50 Last Admin: 01/12/24 12:36 Dose: 5 mg Pantoprazole Sodium (Pantoprazole 40 Mg Tab) 40 mg PO DAILY [facility] Stop: 02/09/24 08:59 Last Admin: 01/14/24 08:54 Dose: 40 mg Quetiapine Fumarate (Quetiapine Fumarate 300 Mg Tablet) 300 mg PO HS [facility] Stop: 02/12/24 20:59 Last Admin: 01/13/24 23:43 Dose: 300 mg Rivaroxaban (Rivaroxaban 20 Mg Tab) 20 mg PO QDD [facility] Stop: 02/11/24 16:29 Last Admin: 01/13/24 17:55 Dose: 20 mg (1) Schizoaffective disorder Schizoaffective disorder type: depressive Qualified Code(s): F25.1 - Schizoaffective disorder, depressive type
[2024-01-14] MEDS ORDERED: clonazePAM 0.5 MG TAB PO PRN (13:15)
[2024-01-14] MEDS: ACETAMINOPHEN 325 MG TAB PO PRN (13:52)
[2024-01-14] MEDS: QUEtiapine FUMARATE 200 MG TAB PO SCH (21:50)
[2024-01-15] MEDS: clonazePAM 0.5 MG TAB PO PRN (06:22)
[2024-01-15 07:27] LABS: Hematocrit (blood only) 35.6 % (37.0-47.0); Hemoglobin 11.6 g/dl (12.0-16.0); Mean Corpuscular Hgb Conc 32.6 g/dL (32.0-36.0); Mean Platelet Volume 8.5 fL (9.4-12.4); Platelet Count 282 K/uL (130-400); RDW Coefficient of Variation 14.2 % (11.5-14.5); RDW Standard Deviation 42.5 fL (36.4-46.3); Red Blood Count 4.29 M/uL (4.20-5.40); White Blood Count 7.22 K/ul (4.8-10.8)
[2024-01-15 07:43] LABS: BUN Creatinine Ratio 22.4 (10-20); Calcium 9.6 mg/dl (8.6-10.3); Creatinine Clr Calc Pharmacy 83.7 ml/min; Est GFR (African American) 106.2 ml/min; Est GFR (Non-African American) 91.6 ml/min; Magnesium 1.6 mg/dl (1.7-2.4); Phosphorus 4.1 mg/dl (2.5-4.9); Potassium 4.1 mmol/L (3.5-5.1)
--- NOTE | 2024-01-15 09:30 | Hospitalist Progress Note ---
Date of Service January 15, 2024 Assessment & Plan (1) Encephalopathy: Plan Pt is a 68yoF with PMHx significant for history of PE on Xarelto, DM 2 on oral medications, chronic anemia (baseline hemoglobin of 11), GERD, IBS, chronic pain, schizophrenia/anxiety/mood disorder, ongoing tobacco abuse admitted with acute encephalopathy. Acute metabolic Encephalopathy Pt very lethargic on admission likely Multifactorial, Hyponatremic Multiple home neuropsychotropic medications contributory Rule out hyperammonemia, valproic acid toxicity- both within normal limits Psych consulted with holding of psychotropic meds-appreciate recs to re-start Pt's mental status improved per previous providers > then for me drowsy for several days but able to answer some simple questions appropriately Changed medications doses as below. After discussing w/ psychiatry 3/2 pt awake and alert today - mental status seems at baseline now Hyponatremia Pt with noted sodium 121 on admission, baseline of 134 in October Careful correction of sodium Hyponatremia workup Nephrology consulted, appreciate recs -consistent with psychogenic polydipsia, currently on fluid restriction. Na level improved to 134-135 Traumatic LUE pain Hx of falls rule out bony injury Left shoulder xray noting no acute fracture or dislocation but does note slight subluxation Pt with significant pain Orthopedics consulted- appreciate recs - 65-year-old female with left rotator cuff tendinitis -Weightbearing as tolerated left upper extremity -Pain control -PT/OT -Medical management -Patient is stable from an orthopedic standpoint. No further intervention at this time. May follow-up as an outpatient as needed Continue with pain control, ice to affected area, lidocaine patch PT OT eval once medically stable (pt has been refusing to work with PT), may need placement given recurrent falls 3/2 pt continues to complain of severe L shoulder pain - will obtain CT image Intertrigo Started on desenex cream DM 2 on oral medications suboptimal control of recent hemoglobin A1c of 7.9 last October 2023 [facility] PCP follow up Chronic anemia hemoglobin at baseline, 11.4 On xarelto Monitor H/H once restarted Hx of PE Xarelto was on hold in setting of falls and trauma Resume on 01/12 Monitor hgb as above schizophrenia/anxiety/mood disorder RLS psych consulted with holding of psychotropic meds-appreciate recs to re-start and prevent further AMS in the future -seroquel and klonipin has been re-started -Holding the other meds (benztropine, buspar, divalproex, lexapro, gabapentin, ropinirole) resume as able based on psych recs - discussed w/ psych - holding ropinirole, benztropine pt continues to be drowsy - discussed again w/ psych - will decrease seroquel to 300, decrease clonazapine to 0.5 01/13 Pt still very drowsy - discussed w/ psych again - will decrease seroquel to 200 3/ pt awake and alert today ongoing tobacco abuse Nicotine patch as needed encourage cessation DVT prophylaxis. everardo Full code Admission and Anticipated Discharge Date Admission Date: January 10, 2024 Subjective Pt seen in follow up of AMS, hyponatremia, on multiple psychotropic meds, and psychiatry consulted Nephrology consulted for hyponatremia - now on fluid restriction - for psychogenic polydipsia Orthopedics consulted for shoulder pain, abnormal XR For the past 3 days pt very drowsy and not able to hold full conversation. Today she is awake and alert - complaining of Left shoulder pain. Denies any other complaints. She is in disbelief that she was drowsy previously and does not remember talking to me. Denies any chest pain or shortness of breath, denies any fevers chills, denies any abdominal pain nausea vomiting. Review of Systems Review of Systems: All systems reviewed & are unremarkable except as noted in Subjective Physical Exam Physical Exam: General: WD/WN in NAD HEENT: NC/AT CV: RRR, Resp: no increased effort of breathing Abdomen: Soft, nontender Neuro/psych: awake, alert, able to answer simple questions appropriately. +left shoulder pain, speech fluent, no facial asymmetry, moves extremities Results & Data Results & Data Vital Signs (Past 12 Hours) Vital Signs Temp Pulse Pulse Resp BP Pulse Ox O2 Del Method 01/15/24 06:59 36.5 C 82 18 107/72 96 Room Air 01/15/24 04:15 36.7 C 86 16 131/84 95 Room Air 01/15/24 02:00 92 H 01/14/24 22:50 36.8 C 86 16 121/80 91 Room Air Laboratory Results 01/15/24 01/15/24 01/14/24 Range/Units 08:21 07:12 21:11 WBC 7.22 (4.8-10.8) K/ul RBC 4.29 (4.20-5.40) M/uL Hgb 11.6 L (12.0-16.0) g/dl Hct 35.6 L (37.0-47.0) % MCV 83.0 (80.0-100.0) fL MCH 27.0 (25.0-34.0) pg MCHC 32.6 (32.0-36.0) g/dL RDW Std Deviation 42.5 (36.4-46.3) fL RDW Coeff of Vernon 14.2 (11.5-14.5) % Plt Count 282 (130-400) K/uL MPV 8.5 L (9.4-12.4) fL Sodium 135 L (136-145) mmol/L Potassium 4.1 (3.5-5.1) mmol/L Chloride 101 (98-107) mmol/L Carbon Dioxide 25 (21-32) mmol/L Anion Gap 9 (3-11) BUN 15 (6-23) mg/dl Creatinine 0.67 (0.6-1.2) mg/dl Est Cr Clr Drug Dosing 83.7 ml/min Est GFR ( Amer) 106.2 ml/min Est GFR (Non-Af Amer) 91.6 ml/min BUN/Creatinine Ratio 22.4 H (10-20) Glucose 138 H (70-99(Fasting)) mg/dl POC Glucose 129 H 125 H (70-99) mg/dl Calcium 9.6 (8.6-10.3) mg/dl Phosphorus 4.1 (2.5-4.9) mg/dl Magnesium 1.6 L (1.7-2.4) mg/dl 01/14/24 01/14/24 Range/Units 17:28 12:16 WBC (4.8-10.8) K/ul RBC (4.20-5.40) M/uL Hgb (12.0-16.0) g/dl Hct (37.0-47.0) % MCV (80.0-100.0) fL MCH (25.0-34.0) pg MCHC (32.0-36.0) g/dL RDW Std Deviation (36.4-46.3) fL RDW Coeff of Vernon (11.5-14.5) % Plt Count (130-400) K/uL MPV (9.4-12.4) fL Sodium (136-145) mmol/L Potassium (3.5-5.1) mmol/L Chloride (98-107) mmol/L Carbon Dioxide (21-32) mmol/L Anion Gap (3-11) BUN (6-23) mg/dl Creatinine (0.6-1.2) mg/dl Est Cr Clr Drug Dosing ml/min Est GFR ( Amer) ml/min Est GFR (Non-Af Amer) ml/min BUN/Creatinine Ratio (10-20) Glucose (70-99(Fasting)) mg/dl POC Glucose 143 H 119 H (70-99) mg/dl Calcium (8.6-10.3) mg/dl Phosphorus (2.5-4.9) mg/dl Magnesium (1.7-2.4) mg/dl Medications Administered Current Inpatient Medications Acetaminophen (Acetaminophen 325 Mg Tab) 650 mg PO Q4H PRN PRN Reason: Pain Stop: 02/13/24 11:46 Last Admin: 01/15/24 05:15 Dose: 650 mg Buspirone HCl (Buspirone 5 Mg Tab) 10 mg PO TID MARY Stop: 02/12/24 20:59 Clonazepam (Clonazepam 0.5 Mg Tab) 0.5 mg PO BIDM PRN PRN Reason: Anxiety Stop: 02/13/24 13:14 Last Admin: 01/15/24 06:22 Dose: 0.5 mg Dextrose (Dextrose 50% 50 Ml Syringe) 25 - 50 ml IV UD PRN; Protocol PRN Reason: Hypoglycemia Protocol Stop: 02/09/24 08:20 Divalproex Sodium (Divalproex Extended Release 500 Mg Tab) 1,500 mg PO 1700 MARY Stop: 02/11/24 16:59 Last Admin: 01/14/24 17:05 Dose: 1,500 mg Escitalopram Oxalate (Escitalopram Oxalate 20 Mg Tab) 20 mg PO DAILY MARY Stop: 02/11/24 09:29 Glucagon (Glucagon For Inj 1 Mg Vial) 1 mg SQ UD PRN; Protocol PRN Reason: Hypoglycemia Protocol Stop: 02/09/24 08:20 Glucose (Glucose 10 Tab/Tube) 4 - 8 tab PO UD PRN; Protocol PRN Reason: Hypoglycemia Treatment Stop: 02/09/24 08:20 Glucose (Glucose 40% Gel 15 Gm Tube) 15 - 30 gm PO UD PRN; Protocol PRN Reason: Hypoglycemia Protocol Stop: 02/09/24 08:20 Promethazine HCl 6.25 mg/ (Sodium Chloride) 50.25 mls @ 201 mls/hr IV Q6H PRN PRN Reason: Nausea And Vomiting Stop: 02/09/24 06:06 Last Infusion: 01/11/24 01:16 Dose: Infused Insulin Aspart (Insulin Aspart Per Unit Charge) 0 units SC ACHS [facility] Stop: 02/09/24 08:20 Last Admin: 01/14/24 21:51 Dose: Not Given Lidocaine (Lidocaine 5% 1 Patch) 1 patch TD DAILY@1730 [facility] Stop: 02/12/24 17:29 Last Admin: 01/15/24 06:06 Dose: 1 patch Magnesium Oxide (Magnesium Oxide 400 Mg Tab) 400 mg PO QAM [facility] Stop: 02/11/24 08:59 Last Admin: 01/15/24 08:08 Dose: 400 mg Melatonin (Melatonin 3 Mg Tab) 3 mg PO HS PRN PRN Reason: Sleep Stop: 02/10/24 01:50 Last Admin: 01/14/24 21:50 Dose: 3 mg Miconazole Nitrate (Miconazole Nitrate Powder 85 Gm) 1 appln EXT TID [facility] Stop: 02/10/24 20:59 Last Admin: 01/15/24 08:08 Dose: 1 appln Miscellaneous (Carbohydrates For Hypoglycemia ) 15 - 30 gm PO UD PRN PRN Reason: Hypoglycemia Protocol Stop: 02/09/24 08:20 Miscellaneous (Remove Lidoderm Patch) 1 each N/A DAILY@0530 [facility] Stop: 02/13/24 05:29 Last Admin: 01/15/24 04:23 Dose: Not Given Oxycodone HCl (Oxycodone Hcl Ir 5 Mg Tab (Immediate Release)) 5 mg PO Q4H PRN PRN Reason: Pain Stop: 01/25/24 01:50 Last Admin: 01/12/24 12:36 Dose: 5 mg Pantoprazole Sodium (Pantoprazole 40 Mg Tab) 40 mg PO DAILY [facility] Stop: 02/09/24 08:59 Last Admin: 01/15/24 08:08 Dose: 40 mg Quetiapine Fumarate (Quetiapine Fumarate 200 Mg Tab) 200 mg PO HS [facility] Stop: 02/13/24 20:59 Last Admin: 01/14/24 21:50 Dose: 200 mg Rivaroxaban (Rivaroxaban 20 Mg Tab) 20 mg PO QDD [facility] Stop: 02/11/24 16:29 Last Admin: 01/14/24 17:06 Dose: 20 mg
--- NOTE | 2024-01-15 12:52 | CT Scan Report ---
CT shoulder LT wo con HISTORY: 68 years-old Female severe shoulder pain acute severe left-sided shoulder pain COMPARISON: Shoulder radiographs 01/10/2024 TECHNIQUE: Multiple axial CT images of the left shoulder were obtained with and without the use of IV contrast. Additional 3-D rendered images were generated from a separate workstation. A dose lowering technique was used consistent with the principals of SIMEON. FINDINGS: Demineralized appearance of the bones. Moderate glenohumeral and AC joint osteoarthritis redemonstrat ed. Osteophytic spurring of the greater tuberosity. No acute fracture, location, avascular necrosis o r suspicious bone lesion. Mild/moderate degenerative changes of the spine. The imaged lung baker appear clear. Unremarkable soft tissues. No lymphadenopathy or large joint eff usion. Tendons, ligaments and musculature are suboptimally violated by CT technique. There is at leas t mild supraspinatus muscle atrophy suggestive of chronic rotator cuff tear. IMPRESSION: 1. No acute fracture or dislocation. 2. Moderate glenohumeral and AC joint osteoarthritis. ACT 112: Negative or not required by law. The above report was generated using voice recognition software. It may contain grammatical, syntax o r spelling errors. Electronically signed by: Altaf Lofton M.D. 01/15/2024 12:49 PM
[2024-01-15] MEDS: KETOROLAC TROMETHAMINE 15 MG/ML VIAL IV ONE (14:03)
[2024-01-15] MEDS: ACETAMINOPHEN 500 MG TAB PO SCH (14:05)
[2024-01-16 06:38] LABS: Hematocrit (blood only) 35.4 % (37.0-47.0); Hemoglobin 11.7 g/dl (12.0-16.0); Mean Corpuscular Hgb Conc 33.1 g/dL (32.0-36.0); Mean Corpuscular Volume 81.8 fL (80.0-100.0); Mean Platelet Volume 9.1 fL (9.4-12.4); Platelet Count 295 K/uL (130-400); RDW Coefficient of Variation 14.2 % (11.5-14.5); RDW Standard Deviation 42.2 fL (36.4-46.3); Red Blood Count 4.33 M/uL (4.20-5.40); White Blood Count 5.99 K/ul (4.8-10.8)
[2024-01-16 07:17] LABS: Calcium 9.5 mg/dl (8.6-10.3); Magnesium 1.7 mg/dl (1.7-2.4)
[2024-01-16 07:22] LABS: Creatinine Clr Calc Pharmacy 70.1 ml/min; Est GFR (African American) 93.3 ml/min; Est GFR (Non-African American) 80.5 ml/min; Phosphorus 5.3 mg/dl (2.5-4.9)
--- NOTE | 2024-01-16 08:56 | Hospitalist Progress Note ---
Date of Service January 16, 2024 Assessment & Plan (1) Encephalopathy: Plan Pt is a 68yoF with PMHx significant for history of PE on Xarelto, DM 2 on oral medications, chronic anemia (baseline hemoglobin of 11), GERD, IBS, chronic pain, schizophrenia/anxiety/mood disorder, ongoing tobacco abuse admitted with acute encephalopathy. Acute metabolic Encephalopathy Pt very lethargic on admission likely Multifactorial, Hyponatremic Multiple home neuropsychotropic medications contributory Rule out hyperammonemia, valproic acid toxicity- both within normal limits Psych consulted with holding of psychotropic meds-appreciate recs to re-start Pt's mental status improved per previous providers > then for me drowsy for several days but able to answer some simple questions appropriately Changed medications doses as below. After discussing w/ psychiatry 3/2 pt awake and alert today - mental status seems at baseline now Hyponatremia Pt with noted sodium 121 on admission, baseline of 134 in October Careful correction of sodium Hyponatremia workup Nephrology consulted, appreciate recs -consistent with psychogenic polydipsia, currently on fluid restriction. Na level improved to 134 Traumatic LUE pain Hx of falls rule out bony injury Left shoulder xray noting no acute fracture or dislocation but does note slight subluxation Pt with significant pain Orthopedics consulted- appreciate recs - 65-year-old female with left rotator cuff tendinitis -Weightbearing as tolerated left upper extremity -Pain control -PT/OT -Medical management -Patient is stable from an orthopedic standpoint. No further intervention at this time. May follow-up as an outpatient as needed Continue with pain control, ice to affected area, lidocaine patch PT OT eval once medically stable (pt has been refusing to work with PT), may need placement given recurrent falls 3/2 pt continues to complain of severe L shoulder pain - obtained CT image CT L shoulder - FINDINGS: Demineralized appearance of the bones. Moderate glenohumeral and AC joint osteoarthritis redemonstrated. Osteophytic spurring of the greater tuberosity. No acute fracture, location, avascular necrosis or suspicious bone lesion. Mild/moderate degenerative changes of the spine. The imaged lung baker appear clear. Unremarkable soft tissues. No l ymphadenopathy or large joint effusion. Tendons, ligaments and musculature are suboptimally violated by CT technique. There is at least mild supraspinatus muscle atrophy suggestive of chronic rotator cuff tear. IMPRESSION: 1. No acute fracture or dislocation. 2. Moderate glenohumeral and AC joint osteoarthritis. Intertrigo Started on desenex cream DM 2 on oral medications suboptimal control of recent hemoglobin A1c of 7.9 last October 2023 [facility] PCP follow up Chronic anemia hemoglobin at baseline, 11.4 On xarelto Monitor H/H once restarted Hx of PE Xarelto was on hold in setting of falls and trauma Resume on 01/12 Monitor hgb as above schizophrenia/anxiety/mood disorder RLS psych consulted with holding of psychotropic meds-appreciate recs to re-start and prevent further AMS in the future -seroquel and klonipin has been re-started -Holding the other meds (benztropine, buspar, divalproex, lexapro, gabapentin, ropinirole) resume as able based on psych recs - discussed w/ psych - holding ropinirole, benztropine pt continues to be drowsy - discussed again w/ psych - will decrease seroquel to 300, decrease clonazapine to 0.5 01/13 Pt still very drowsy - discussed w/ psych again - will decrease seroquel to 200 3/ pt awake and alert today ongoing tobacco abuse Nicotine patch as needed encourage cessation DVT prophylaxis. xarelto Full code Admission and Anticipated Discharge Date Admission Date: January 10, 2024 Subjective Pt seen in follow up of AMS, hyponatremia, on multiple psychotropic meds, and psychiatry consulted Nephrology consulted for hyponatremia - now on fluid restriction - for psychogenic polydipsia Orthopedics consulted for shoulder pain, abnormal XR For several days pt very drowsy and not able to hold full conversation. Now she is awake and alert and answers appropriately. Reports Left shoulder pain however says right now it feels ok. Denies any chest pain or shortness of breath, denies any fevers chills, denies any abdominal pain nausea vomiting. Psychiatry consulted and following to help w/ meds Review of Systems Review of Systems: All systems reviewed & are unremarkable except as noted in Subjective Physical Exam Physical Exam: General: WD/WN in NAD HEENT: NC/AT CV: RRR, Resp: no increased effort of breathing Abdomen: Soft, nontender Neuro/psych: awake, alert, able to answer simple questions appropriately. +left shoulder pain, speech fluent, no facial asymmetry, moves extremities Results & Data Results & Data Vital Signs (Past 12 Hours) Vital Signs Temp Pulse Pulse Resp BP Pulse Ox O2 Del Method 01/16/24 07:33 36.8 C 74 18 121/78 91 Room Air 01/15/24 23:51 81 01/15/24 22:46 36.9 C 75 14 110/75 90 Room Air Laboratory Results 01/16/24 01/16/24 01/15/24 Range/Units 08:05 05:53 19:56 WBC 5.99 (4.8-10.8) K/ul RBC 4.33 (4.20-5.40) M/uL Hgb 11.7 L (12.0-16.0) g/dl Hct 35.4 L (37.0-47.0) % MCV 81.8 (80.0-100.0) fL MCH 27.0 (25.0-34.0) pg MCHC 33.1 (32.0-36.0) g/dL RDW Std Deviation 42.2 (36.4-46.3) fL RDW Coeff of Vernon 14.2 (11.5-14.5) % Plt Count 295 (130-400) K/uL MPV 9.1 L (9.4-12.4) fL Sodium 134 L (136-145) mmol/L Potassium 4.0 (3.5-5.1) mmol/L Chloride 101 (98-107) mmol/L Carbon Dioxide 27 (21-32) mmol/L Anion Gap 6 (3-11) BUN 20 (6-23) mg/dl Creatinine 0.77 (0.6-1.2) mg/dl Est Cr Clr Drug Dosing 70.1 ml/min Est GFR ( Amer) 93.3 ml/min Est GFR (Non-Af Amer) 80.5 ml/min BUN/Creatinine Ratio 26.0 H (10-20) Glucose 134 H (70-99(Fasting)) mg/dl POC Glucose 136 H 158 H (70-99) mg/dl Calcium 9.5 (8.6-10.3) mg/dl Phosphorus 5.3 H (2.5-4.9) mg/dl Magnesium 1.7 (1.7-2.4) mg/dl Valproic Acid Pending 01/15/24 01/15/24 Range/Units 17:10 12:31 WBC (4.8-10.8) K/ul RBC (4.20-5.40) M/uL Hgb (12.0-16.0) g/dl Hct (37.0-47.0) % MCV (80.0-100.0) fL MCH (25.0-34.0) pg MCHC (32.0-36.0) g/dL RDW Std Deviation (36.4-46.3) fL RDW Coeff of Vernon (11.5-14.5) % Plt Count (130-400) K/uL MPV (9.4-12.4) fL Sodium (136-145) mmol/L Potassium (3.5-5.1) mmol/L Chloride (98-107) mmol/L Carbon Dioxide (21-32) mmol/L Anion Gap (3-11) BUN (6-23) mg/dl Creatinine (0.6-1.2) mg/dl Est Cr Clr Drug Dosing ml/min Est GFR ( Amer) ml/min Est GFR (Non-Af Amer) ml/min BUN/Creatinine Ratio (10-20) Glucose (70-99(Fasting)) mg/dl POC Glucose 139 H 151 H (70-99) mg/dl Calcium (8.6-10.3) mg/dl Phosphorus (2.5-4.9) mg/dl Magnesium (1.7-2.4) mg/dl Valproic Acid Medications Administered Current Inpatient Medications Acetaminophen (Acetaminophen 500 Mg Tab) 1,000 mg PO Q8H MARY Stop: 02/14/24 12:14 Last Admin: 01/16/24 05:08 Dose: Not Given Buspirone HCl (Buspirone 5 Mg Tab) 10 mg PO TID MARY Stop: 02/12/24 20:59 Clonazepam (Clonazepam 0.5 Mg Tab) 0.5 mg PO BIDM PRN PRN Reason: Anxiety Stop: 02/13/24 13:14 Last Admin: 01/15/24 06:22 Dose: 0.5 mg Dextrose (Dextrose 50% 50 Ml Syringe) 25 - 50 ml IV UD PRN; Protocol PRN Reason: Hypoglycemia Protocol Stop: 02/09/24 08:20 Divalproex Sodium (Divalproex Extended Release 500 Mg Tab) 1,500 mg PO 1700 [facility] Stop: 02/11/24 16:59 Last Admin: 01/15/24 16:36 Dose: 1,500 mg Escitalopram Oxalate (Escitalopram Oxalate 20 Mg Tab) 20 mg PO DAILY MARY Stop: 02/11/24 09:29 Glucagon (Glucagon For Inj 1 Mg Vial) 1 mg SQ UD PRN; Protocol PRN Reason: Hypoglycemia Protocol Stop: 02/09/24 08:20 Glucose (Glucose 10 Tab/Tube) 4 - 8 tab PO UD PRN; Protocol PRN Reason: Hypoglycemia Treatment Stop: 02/09/24 08:20 Glucose (Glucose 40% Gel 15 Gm Tube) 15 - 30 gm PO UD PRN; Protocol PRN Reason: Hypoglycemia Protocol Stop: 02/09/24 08:20 Promethazine HCl 6.25 mg/ (Sodium Chloride) 50.25 mls @ 201 mls/hr IV Q6H PRN PRN Reason: Nausea And Vomiting Stop: 02/09/24 06:06 Last Infusion: 01/11/24 01:16 Dose: Infused Insulin Aspart (Insulin Aspart Per Unit Charge) 0 units SC ACHS MARY Stop: 02/09/24 08:20 Last Admin: 01/15/24 20:05 Dose: 1 units Lidocaine (Lidocaine 5% 1 Patch) 1 patch TD DAILY@1730 [facility] Stop: 02/12/24 17:29 Last Admin: 01/15/24 16:36 Dose: Not Given Magnesium Oxide (Magnesium Oxide 400 Mg Tab) 400 mg PO QAM MARY Stop: 02/11/24 08:59 Last Admin: 01/16/24 07:25 Dose: 400 mg Melatonin (Melatonin 3 Mg Tab) 3 mg PO HS PRN PRN Reason: Sleep Stop: 02/10/24 01:50 Last Admin: 01/15/24 20:04 Dose: 3 mg Miconazole Nitrate (Miconazole Nitrate Powder 85 Gm) 1 appln EXT TID [facility] Stop: 02/10/24 20:59 Last Admin: 01/16/24 07:25 Dose: 1 appln Miscellaneous (Carbohydrates For Hypoglycemia ) 15 - 30 gm PO UD PRN PRN Reason: Hypoglycemia Protocol Stop: 02/09/24 08:20 Miscellaneous (Remove Lidoderm Patch) 1 each N/A DAILY@0530 [facility] Stop: 02/13/24 05:29 Last Admin: 01/16/24 06:04 Dose: 1 each Oxycodone HCl (Oxycodone Hcl Ir 5 Mg Tab (Immediate Release)) 2.5 mg PO Q4H PRN PRN Reason: Pain Stop: 01/25/24 01:50 Pantoprazole Sodium (Pantoprazole 40 Mg Tab) 40 mg PO DAILY MARY Stop: 02/09/24 08:59 Last Admin: 01/16/24 07:25 Dose: 40 mg Quetiapine Fumarate (Quetiapine Fumarate 200 Mg Tab) 200 mg PO HS [facility] Stop: 02/13/24 20:59 Last Admin: 01/15/24 20:04 Dose: 200 mg Rivaroxaban (Rivaroxaban 20 Mg Tab) 20 mg PO QDD [facility] Stop: 02/11/24 16:29 Last Admin: 01/15/24 16:36 Dose: 20 mg
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
[2024-01-16] MEDS: oxyCODONE HCL IR 5 MG TAB (IMMEDIATE RELEASE) PO PRN (16:12)
--- NOTE | 2024-01-16 17:00 | Nephrology Progress Note ---
Date of Service January 16, 2024 Assessment & Plan (1) Hyponatremia: Plan: euvolemic On exam and quite dilute urine >> Psychogenic Polydipsia. sNa has been hovering 133-135 range since her urine osm should have been much lower with initial serum Na of 121. Will sign off NEPHRO d/c RECS -continue fluid limit 1.2 L daily -repeat BMP and urine osmolality, urine electrolytes at PCP f/u visit (and at rehab facility) w/in one week and consider weekly -hospital d/c appt w/ Dr Maritza lepe in 2 -3 wks w/ renal nurse to order bmp, urine osms, serum osms, urine electrolytes, serum magnesium -continue daily po mag at d/c -minimize or avoid nsaids Care coordinated w/ Dr Lee (2) Hypomagnesemia: Plan: improved to 1.7 today. Admission level was 1.3 and she was repleted -cont po mag (3) Encephalopathy: (4) Multiple falls: Plan: As per primary team. most likely multifactorial cause of AMS. low Na obviously added to the problem and also cause weakness. Agree with plan to hold Multiple meds Admission and Anticipated Discharge Date Admission Date: January 10, 2024 Subjective Seen on afternoon rounds. Tells me she is feeling and doing okay apart from left shoulder pain and inability to chew some of her food given to her for supper. No shortness of breath no edema no nausea vomiting Review of Systems 2 Review of Systems: All systems reviewed & are unremarkable except as noted in Subjective Physical Exam 2 Constitutional: well developed, well nourished, + obese, + frail appearing and cooperative; no acute distress Eyes: EOM intact bilaterally ENMT: Ears: no external ear abnormality Nose: no external nose abnormality Mouth: + dry oral mucous membranes Neck: no nuchal rigidity Respiratory: normal respiratory effort Auscultation: + diminished lung sounds Cardiovascular: Rate/Rhythm: regular rate and regular rhythm Extremities: n o edema Gastrointestinal (Abdomen): Inspection/Auscultation: normal bowel sounds P ercussion/Palpation: abdomen soft; abdomen nontender Musculoskeletal: Extremities: + limited ROM of extremities (Left shoulder on ice) and + abnormal strength Skin: no rashes, warm and dry Neurologic: stewart, fluent speech, no tremor Psychiatric: Orientation: alert, oriented to person and oriented to place Results & Data Vital Signs (Past 12 Hours) Vital Signs Temp Pulse Pulse Resp BP Pulse Ox O2 Del Method 01/16/24 16:00 84 01/16/24 15:15 36.9 C 79 18 124/83 95 Room Air 01/16/24 11:27 37.2 C 78 18 118/79 94 Room Air 01/16/24 08:00 87 01/16/24 07:33 36.8 C 74 18 121/78 91 Room Air Laboratory Results 01/16/24 05:53 01/16/24 05:53
--- NOTE | 2024-01-17 09:59 | Hospitalist Progress Note ---
Date of Service January 17, 2024 Assessment & Plan (1) Encephalopathy: Plan Pt is a 68yoF with PMHx significant for history of PE on Xarelto, DM 2 on oral medications, chronic anemia (baseline hemoglobin of 11), GERD, IBS, chronic pain, schizophrenia/anxiety/mood disorder, ongoing tobacco abuse admitted with acute encephalopathy. Acute metabolic Encephalopathy Pt very lethargic on admission likely Multifactorial, Hyponatremic Multiple home neuropsychotropic medications contributory Rule out hyperammonemia, valproic acid toxicity- both within normal limits Psych consulted with holding of psychotropic meds-appreciate recs to re-start Pt's mental status improved per previous providers > then for me drowsy for several days but able to answer some simple questions appropriately Changed medications doses as below. After discussing w/ psychiatry 3/2 pt awake and alert today - mental status seems at baseline now Hyponatremia Pt with noted sodium 121 on admission, baseline of 134 in October Careful correction of sodium Hyponatremia workup Nephrology consulted, appreciate recs -consistent with psychogenic polydipsia, currently on fluid restriction. Na level improved to 134 NEPHRO d/c RECS -continue fluid limit 1.2 L daily -repeat BMP and urine osmolality, urine electrolytes at PCP f/u visit w/in one week and consider weekly -hospital d/c appt w/ Dr Maritza lepe in 2 -3 wks w/ renal nurse to order bmp, urine osms, serum osms, urine electrolytes, serum magnesium -continue daily po mag at d/c -minimize or avoid nsaids Traumatic LUE pain Hx of falls rule out bony injury Left shoulder xray noting no acute fracture or dislocation but does note slight subluxation Pt with significant pain Orthopedics consulted- appreciate recs - 65-year-old female with left rotator cuff tendinitis -Weightbearing as tolerated left upper extremity -Pain control -PT/OT -Medical management -Patient is stable from an orthopedic standpoint. No further intervention at this time. May follow-up as an outpatient as needed Continue with pain control, ice to affected area, lidocaine patch PT OT eval once medically stable (pt has been refusing to work with PT), may need placement given recurrent falls 3/2 pt continues to complain of severe L shoulder pain - obtained CT image CT L shoulder - FINDINGS: Demineralized appearance of the bones. Moderate glenohumeral and AC joint osteoarthritis redemonstrated. Osteophytic spurring of the greater tuberosity. No acute fracture, location, avascular necrosis or suspicious bone lesion. Mild/moderate degenerative changes of the spine. The imaged lung baker appear clear. Unremarkable soft tissues. No lymphadenopathy or large joint effusion. Tendons, ligaments and musculature are suboptimally violated by CT technique. There is at least mild supraspinatus muscle atrophy suggestive of chronic rotator cuff tear. IMPRESSION: 1. No acute fracture or dislocation. 2. Moderate glenohumeral and AC joint osteoarthritis. Intertrigo Started on desenex cream DM 2 on oral medications suboptimal control of recent hemoglobin A1c of 7.9 last October 2023 [facility] PCP follow up Chronic anemia hemoglobin at baseline, 11.4 On xarelto Monitor H/H once restarted Hx of PE Xarelto was on hold in setting of falls and trauma Resume on 01/12 Monitor hgb as above schizophrenia/anxiety/mood disorder RLS psych consulted with holding of psychotropic meds-appreciate recs to re-start and prevent further AMS in the future -seroquel and klonipin has been re-started -Holding the other meds (benztropine, buspar, divalproex, lexapro, gabapentin, ropinirole) resume as able based on psych recs - discussed w/ psych - holding ropinirole, benztropine pt continues to be drowsy - discussed again w/ psych - will decrease seroquel to 300, decrease clonazapine to 0.5 3/1 Pt still very drowsy - discussed w/ psych again - will decrease seroquel to 200 3/2 pt awake and alert today 3/3 Per psychiatry - Patient seems improved on less psychiatric medication and it's possible that serotonergic agents were activating given her dx. She is requiring significantly less Klonopin and does not appear in withdrawal. SSRIs and antipsychotics can contribute to low sodium and the latter to orthostasis and/or confusion with the anticholinergic effects of Cogentin so lowest possible dose of Seroquel is advised. (1) Schizoaffective disorder: Plan continue Depakote, Klonopin prn, Seroquel as ordered will need f/u with psychiatric PA at [facility] at this point I would not resume Lexapro or Buspar at discharge ongoing tobacco abuse Nicotine patch as needed encourage cessation DVT prophylaxis. [email or web address] Full code Admission and Anticipated Discharge Date Admission Date: January 10, 2024 Subjective Pt seen in follow up of AMS, hyponatremia, on multiple psychotropic meds, and psychiatry consulted Nephrology consulted for hyponatremia - now on fluid restriction - for psychogenic polydipsia Orthopedics consulted for shoulder pain, abnormal XR For several days pt very drowsy and not able to hold full conversation. Now she is awake and alert and answers appropriately. Reports Left shoulder pain however says right now it feels ok. Denies any chest pain or shortness of breath, denies any fevers chills, denies any abdominal pain nausea vomiting. Psychiatry consulted and following to help w/ meds PT recommends rehab - CM involved Review of Systems Review of Systems: All systems reviewed & are unremarkable except as noted in Subjective Physical Exam Physical Exam: General: WD/WN in NAD HEENT: NC/AT CV: RRR, Resp: no increased effort of breathing Abdomen: Soft, nontender Neuro/psych: awake, alert, able to answer simple questions appropriately. +left shoulder pain, speech fluent, no facial asymmetry, moves extremities Results & Data Results & Data Vital Signs (Past 12 Hours) Vital Signs Temp Pulse Pulse Resp BP BP Pulse Ox 01/17/24 08:28 36.5 C 78 16 122/71 93 01/17/24 07:39 75 01/17/24 03:02 36.4 C L 76 16 91/58 L 91 01/16/24 23:22 75 01/16/24 22:29 36.6 C 80 16 117/78 92 O2 Del Method 01/17/24 08:28 Room Air 01/17/24 07:39 01/17/24 03:02 Room Air 01/16/24 23:22 01/16/24 22:29 Room Air Laboratory Results 01/17/24 01/16/24 01/16/24 Range/Units 08:10 20:24 17:12 POC Glucose 149 H 138 H 109 H (70-99) mg/dl Valproic Acid (50-100) mcg/ml 01/16/24 01/16/24 Range/Units 12:00 05:53 POC Glucose 137 H (70-99) mg/dl Valproic Acid 72 (50-100) mcg/ml Medications Administered Current Inpatient Medications Acetaminophen (Acetaminophen 500 Mg Tab) 1,000 mg PO Q8H MARY Stop: 02/14/24 12:14 Last Admin: 01/17/24 05:19 Dose: 1,000 mg Clonazepam (Clonazepam 0.5 Mg Tab) 0.5 mg PO BIDM PRN PRN Reason: Anxiety Stop: 02/13/24 13:14 Last Admin: 01/15/24 06:22 Dose: 0.5 mg Dextrose (Dextrose 50% 50 Ml Syringe) 25 - 50 ml IV UD PRN; Protocol PRN Reason: Hypoglycemia Protocol Stop: 02/09/24 08:20 Divalproex Sodium (Divalproex Extended Release 500 Mg Tab) 1,500 mg PO 1700 [facility] Stop: 02/11/24 16:59 Last Admin: 01/16/24 16:42 Dose: 1,500 mg Glucagon (Glucagon For Inj 1 Mg Vial) 1 mg SQ UD PRN; Protocol PRN Reason: Hypoglycemia Protocol Stop: 02/09/24 08:20 Glucose (Glucose 10 Tab/Tube) 4 - 8 tab PO UD PRN; Protocol PRN Reason: Hypoglycemia Treatment Stop: 02/09/24 08:20 Glucose (Glucose 40% Gel 15 Gm Tube) 15 - 30 gm PO UD PRN; Protocol PRN Reason: Hypoglycemia Protocol Stop: 02/09/24 08:20 Promethazine HCl 6.25 mg/ (Sodium Chloride) 50.25 mls @ 201 mls/hr IV Q6H PRN PRN Reason: Nausea And Vomiting Stop: 02/09/24 06:06 Last Infusion: 01/11/24 01:16 Dose: Infused Insulin Aspart (Insulin Aspart Per Unit Charge) 0 units SC ACHS [facility] Stop: 02/09/24 08:20 Last Admin: 01/16/24 20:37 Dose: Not Given Ketorolac Tromethamine (Ketorolac Tromethamine 15 Mg/Ml Vial) 15 mg IV NOW ONE Stop: 01/17/24 09:56 Lidocaine (Lidocaine 5% 1 Patch) 1 patch TD DAILY@1730 [facility] Stop: 02/12/24 17:29 Last Admin: 01/16/24 16:42 Dose: 1 patch Magnesium Oxide (Magnesium Oxide 400 Mg Tab) 400 mg PO QAM [facility] Stop: 02/11/24 08:59 Last Admin: 01/17/24 08:19 Dose: 400 mg Melatonin (Melatonin 3 Mg Tab) 3 mg PO HS PRN PRN Reason: Sleep Stop: 02/10/24 01:50 Last Admin: 01/16/24 20:05 Dose: 3 mg Miconazole Nitrate (Miconazole Nitrate Powder 85 Gm) 1 appln EXT TID MARY Stop: 02/10/24 20:59 Last Admin: 01/17/24 08:22 Dose: 1 appln Miscellaneous (Carbohydrates For Hypoglycemia ) 15 - 30 gm PO UD PRN PRN Reason: Hypoglycemia Protocol Stop: 02/09/24 08:20 Miscellaneous (Remove Lidoderm Patch) 1 each N/A DAILY@0530 MARY Stop: 02/13/24 05:29 Last Admin: 01/17/24 05:20 Dose: 1 each Oxycodone HCl (Oxycodone Hcl Ir 5 Mg Tab (Immediate Release)) 2.5 mg PO Q4H PRN PRN Reason: Pain Stop: 01/25/24 01:50 Last Admin: 01/17/24 05:19 Dose: 2.5 mg Pantoprazole Sodium (Pantoprazole 40 Mg Tab) 40 mg PO DAILY MARY Stop: 02/09/24 08:59 Last Admin: 01/17/24 08:19 Dose: 40 mg Quetiapine Fumarate (Quetiapine Fumarate 200 Mg Tab) 200 mg PO HS [facility] Stop: 02/13/24 20:59 Last Admin: 01/16/24 20:05 Dose: 200 mg Rivaroxaban (Rivaroxaban 20 Mg Tab) 20 mg PO QDD [facility] Stop: 02/11/24 16:29 Last Admin: 01/16/24 16:41 Dose: 20 mg
[2024-01-17] MEDS: KETOROLAC TROMETHAMINE 15 MG/ML VIAL IV ONE (10:18)
[2024-01-18 11:47] LABS: Calcium 9.7 mg/dl (8.6-10.3); Creatinine Clr Calc Pharmacy 64.6 ml/min; Est GFR (African American) 83.9 ml/min; Est GFR (Non-African American) 72.4 ml/min; Magnesium 1.8 mg/dl (1.7-2.4); Potassium 4.3 mmol/L (3.5-5.1)
[2024-01-18] MEDS ORDERED: KETOROLAC TROMETHAMINE 15 MG/ML VIAL IV PRN (18:36)
--- NOTE | 2024-01-19 10:18 | Hospitalist Progress Note ---
Date of Service January 18, 2024 (late entry) Assessment & Plan (1) Encephalopathy: Plan Pt is a 68yoF with PMHx significant for history of PE on Xarelto, DM 2 on oral medications, chronic anemia (baseline hemoglobin of 11), GERD, IBS, chronic pain, schizophrenia/anxiety/mood disorder, ongoing tobacco abuse admitted with acute encephalopathy. Acute metabolic Encephalopathy Pt very lethargic on admission likely Multifactorial, Hyponatremic Multiple home neuropsychotropic medications contributory Rule out hyperammonemia, valproic acid toxicity- both within normal limits Psych consulted with holding of psychotropic meds-appreciate recs to re-start Pt's mental status improved per previous providers > then for me drowsy for several days but able to answer some simple questions appropriately Changed medications doses as below. After discussing w/ psychiatry 3/2 pt awake and alert today - mental status seems at baseline now Hyponatremia Pt with noted sodium 121 on admission, baseline of 134 in October Careful correction of sodium Hyponatremia workup Nephrology consulted, appreciate recs -consistent with psychogenic polydipsia, currently on fluid restriction. Na level improved to 134 NEPHRO d/c RECS -continue fluid limit 1.2 L daily -repeat BMP and urine osmolality, urine electrolytes at PCP f/u visit w/in one week and consider weekly -hospital d/c appt w/ Dr Maritza lepe in 2 -3 wks w/ renal nurse to order bmp, urine osms, serum osms, urine electrolytes, serum magnesium -continue daily po mag at d/c -minimize or avoid nsaids Traumatic LUE pain Hx of falls rule out bony injury Left shoulder xray noting no acute fracture or dislocation but does note slight subluxation Pt with significant pain Orthopedics consulted- appreciate recs - 65-year-old female with left rotator cuff tendinitis -Weightbearing as tolerated left upper extremity -Pain control -PT/OT -Medical management -Patient is stable from an orthopedic standpoint. No further intervention at this time. May follow-up as an outpatient as needed Continue with pain control, ice to affected area, lidocaine patch PT OT eval once medically stable (pt has been refusing to work with PT), may need placement given recurrent falls 3/2 pt continues to complain of severe L shoulder pain - obtained CT image CT L shoulder - FINDINGS: Demineralized appearance of the bones. Moderate glenohumeral and AC joint osteoarthritis redemonstrated. Osteophytic spurring of the greater tuberosity. No acute fracture, location, avascular necrosis or suspicious bone lesion. Mild/moderate degenerative changes of the spine. The imaged lung baker appear clear. Unremarkable soft tissues. No lymphade nopathy or large joint effusion. Tendons, ligaments and musculature are suboptimally violated by CT technique. There is at least mild supraspinatus muscle atrophy suggestive of chronic rotator cuff tear. IMPRESSION: 1. No acute fracture or dislocation. 2. Moderate glenohumeral and AC joint osteoarthritis. Intertrigo Started on desenex cream DM 2 on oral medications suboptimal control of recent hemoglobin A1c of 7.9 last October 2023 [facility] PCP follow up Chronic anemia hemoglobin at baseline, 11.4 On xarelto Monitor H/H once restarted Hx of PE Xarelto was on hold in setting of falls and trauma Resume on 01/12 Monitor hgb as above schizophrenia/anxiety/mood disorder RLS psych consulted with holding of psychotropic meds-appreciate recs to re-start and prevent further AMS in the future -seroquel and klonipin has been re-started -Holding the other meds (benztropine, buspar, divalproex, lexapro, gabapentin, ropinirole) resume as able based on psych recs - discussed w/ psych - holding ropinirole, benztropine pt continues to be drowsy - discussed again w/ psych - will decrease seroquel to 300, decrease clonazapine to 0.5 3/1 Pt still very drowsy - discussed w/ psych again - will decrease seroquel to 200 3/2 pt awake and alert today 3/3 Per psychiatry - Patient seems improved on less psychiatric medication and it's possible that serotonergic agents were activating given her dx. She is requiring significantly less Klonopin and does not appear in withdrawal. SSRIs and antipsychotics can contribute to low sodium and the latter to orthostasis and/or confusion with the anticholinergic effects of Cogentin so lowest possible dose of Seroquel is advised. (1) Schizoaffective disorder: Plan continue Depakote, Klonopin prn, Seroquel as ordered will need f/u with psychiatric PA at [facility] at this point I would not resume Lexapro or Buspar at discharge ongoing tobacco abuse Nicotine patch as needed encourage cessation Dispo: Discussed with daughter over the phone, as PT recommends rehab, however patient wants to return home. Daughter is comfortable having her mom at home, she feels she is at her baseline. DVT prophylaxis. everardo Full code Admission and Anticipated Discharge Date Admission Date: January 10, 2024 Subjective Pt seen in follow up of AMS, hyponatremia, on multiple psychotropic meds, and psychiatry consulted Nephrology consulted for hyponatremia - now on fluid restriction - for psychogenic polydipsia Orthopedics consulted for shoulder pain, abnormal XR For several days pt very drowsy and not able to hold full conversation. Now she is awake and alert and answers appropriately. Reports Left shoulder pain however says right now it feels ok. Denies any chest pain or shortness of breath, denies any fevers chills, denies any abdominal pain nausea vomiting. Psychiatry consulted and following to help w/ meds PT recommends rehab - Pt wants to to return home. I talked to patient's daughter on the phone, and she is comfortable having patient/her mom at home. Overall patient is doing better, per daughter she feels this is her baseline. Review of Systems Review of Systems: All systems reviewed & are unremarkable except as noted in Subjective Physical Exam Physical Exam: General: WD/WN in NAD HEENT: NC/AT CV: RRR, Resp: no increased effort of breathing Abdomen: Soft, nontender Neuro/psych: awake, alert, able to answer simple questions appropriately. +left shoulder pain, speech fluent, no facial asymmetry, moves extremities Results & Data Results & Data Vital Signs (Past 12 Hours) Vital Signs Temp Pulse Pulse Resp BP BP Pulse Ox 01/18/24 23:29 36.9 C 76 20 103/71 95 01/18/24 22:50 77 O2 Del Method 01/18/24 23:29 Room Air 01/18/24 22:50
--- NOTE | 2024-01-19 11:49 | Discharge Summary ---
Date of Service January 19, 2024 Admission HPI Per Admitting Provider History obtained from patient and records. Limited history from patient secondary to lethargic state. Medical history significant for history of PE on Xarelto, DM 2 on oral medications, chronic anemia (baseline hemoglobin of 11), GERD, IBS, chronic pain, schizophrenia/anxiety/mood disorder, ongoing tobacco abuse. Last confinement October 2023 for hyponatremia and gastroenteritis. Patient had 2 falls yesterday leading to EMS being called to her home. Patient complained of left arm pain with second fall worse with motion. Transient chest pain, usual SOB. Patient noted to be drowsy. Patient brought to the ER for evaluation. Medical History as above Surgical History : section, cholecystectomy, ROLANDO Family History : Bowel cancer, DM Personal/Social history : 1 pack daily, no EtOH intake, disabled, lives with daughter Admission Exam Per Admitting Provider GENERAL: Lethargic, morbidly obese, looks older than stated age, no respiratory distress SKIN: Normal color, warm HEENT: [place] palpebral conjunctivae, no ptosis, dry buccal mucosa, edentulous NECK : Supple, short neck, no tenderness CHEST : Decreased breath sounds, no tenderness HEART : RRR, no obvious murmurs ABDOMEN: Some distention,no hypogastric tenderness EXTREMITIES : Minimal LE swelling/tenderness, minimal left shoulder tenderness NEUROLOGIC : Lethargic, no facial asymmetry, gait and stance not assessed Principal Diagnosis Acute metabolic encephalopathy, fall, hyponatremia Discharge Exam General: WD/WN in NAD HEENT: NC/AT CV: RRR, Resp: no increased effort of breathing Abdomen: Soft, nontender Neuro/psych: awake, alert, able to answer simple questions appropriately. +left shoulder pain, speech fluent, no facial asymmetry, moves extremities Discharge Data Allergies Allergy/AdvReac Type Severity Reaction Status Date / Time bee venom protein (honey bee) Allergy Severe Anaphylaxis Verified 01/10/24 02:33 egg AdvReac Severe Vomiting Verified 01/10/24 02:33 Penicillins AdvReac Severe VOMITING/IT Verified 01/10/24 02:33 DAVON Consultations 01/10/24 05:59 ED Decision to Admit Stat 01/10/24 10:48 Consult Nephrology Routine 01/12/24 05:35 Consult Orthopedic Surgery Routine 01/15/24 16:31 Consult Psychiatry Routine Ordered Studies 01/10/24 02:13 CT cervical spine wo con Stat CT head/brain wo con Stat 01/15/24 11:55 CT shoulder LT wo con Routine Hospital Course (1) Encephalopathy: Plan Pt is a 68yoF with PMHx significant for history of PE on Xarelto, DM 2 on oral medications, chronic anemia (baseline hemoglobin of 11), GERD, IBS, chronic pain, schizophrenia/anxiety/mood disorder, ongoing tobacco abuse admitted with acute encephalopathy. Acute metabolic Encephalopathy Pt very lethargic on admission likely Multifactorial, Hyponatremic Multiple home neuropsychotropic medications contributory Rule out hyperammonemia, valproic acid toxicity- both within normal limits Psych consulted with holding of psychotropic meds-appreciate recs to re-start Pt's mental status improved per previous providers > then for me drowsy for several days but able to answer some simple questions appropriately Changed medications doses as below. After discussing w/ psychiatry 3/2 pt awake and alert today - mental status seems at baseline now Hyponatremia Pt with noted sodium 121 on admission, baseline of 134 in October Careful correction of sodium Hyponatremia workup Nephrology consulted, appreciate recs -consistent with psychogenic polydipsia, currently on fluid restriction. Na level improved to 134 NEPHRO d/c RECS -continue fluid limit 1.2 L daily -repeat BMP and urine osmolality, urine electrolytes at PCP f/u visit w/in one week and consider weekly -hospital d/c appt w/ Dr Maritza lepe in 2 -3 wks w/ renal nurse to order bmp, urine osms, serum osms, urine electrolytes, serum magnesium -continue daily po mag at d/c -minimize or avoid nsaids Traumatic LUE pain Hx of falls rule out bony injury Left shoulder xray noting no acute fracture or dislocation but does note slight subluxation Pt with significant pain Orthopedics consulted- appreciate recs - 65-year-old female with left rotator cuff tendinitis -Weightbearing as tolerated left upper extremity -Pain control -PT/OT -Medical management -Patient is stable from an orthopedic standpoint. No further intervention at this time. May follow-up as an outpatient as needed Continue with pain control, ice to affected area, lidocaine patch PT OT eval once medically stable (pt has been refusing to work with PT), may need placement given recurrent falls 3/2 pt continues to complain of severe L shoulder pain - obtained CT image CT L shoulder - FINDINGS: Demineralized appearance of the bones. Moderate glenohumeral and AC joint osteoarthritis redemonstrated. Osteophytic spurring of the greater tuberosity. No acute fracture, location, avascular necrosis or suspicious bone lesion. Mild/moderate degenerative changes of the spine. The imaged lung baker appear clear. Unremarkable soft tissues. No lymphadenopathy or large joint effusion. Tendons, ligaments and musculature are suboptimally violated by CT technique. There is at least mild supraspinatus muscle atrophy suggestive of chronic rotator cuff tear. IMPRESSION: 1. No acute fracture or dislocation. 2. Moderate glenohumeral and AC joint osteoarthritis. Intertrigo Started on desenex cream DM 2 on oral medications suboptimal control of recent hemoglobin A1c of 7.9 last October 2023 ISS PCP follow up Chronic anemia hemoglobin at baseline, 11.4 On xarelto Monitor H/H once restarted Hx of PE Xarelto was on hold in setting of falls and trauma Resume on 01/12 Monitor hgb as above schizophrenia/anxiety/mood disorder RLS psych consulted with holding of psychotropic meds-appreciate recs to re-start and prevent further AMS in the future -seroquel and klonipin has been re-started -Holding the other meds (benztropine, buspar, divalproex, lexapro, gabapentin, ropinirole) resume as able based on psych recs - discussed w/ psych - holding ropinirole, benztropine pt continues to be drowsy - discussed again w/ psych - will decrease seroquel to 300, decrease clonazapine to 0.5 3/1 Pt still very drowsy - discussed w/ psych again - will decrease seroquel to 200 3/2 pt awake and alert today 3/3 Per psychiatry - Patient seems improved on less psychiatric medication and it's possible that serotonergic agents were activating given her dx. She is requiring significantly less Klonopin and does not appear in withdrawal. SSRIs and antipsychotics can contribute to low sodium and the latter to orthostasis and/or confusion with the anticholinergic effects of Cogentin so lowest possible dose of Seroquel is advised. (1) Schizoaffective disorder: Plan continue Depakote, Klonopin prn, Seroquel as ordered will need f/u with psychiatric PA at [facility] at this point I would not resume Lexapro or Buspar at discharge ongoing tobacco abuse Nicotine patch as needed encourage cessation Total Time Total Time Spent Total Time Spent (In Minutes): 40 Discharge Plan Discharge Items Patient Disposition: Home - Self-Care Reason For Visit: HYPONATREMIA Discharge Diagnosis: Acute metabolic encephalopathy, fall, hyponatremia Activity: Per Instructions section Non-emergency contact: Primary Care Provider, Curing Room Supervisor and Psychiatrist Call non-emergency contact if: you have any medication questions and your symptoms worsen Follow-up/Referrals: [facility] [Outside] - 01/26/24 8:30 am (Psychiatry appointment with Kevin Lainez PA-C ) Nat Lopez PA-C [Primary Care Provider] - (Date & Time 01/26/2024 10:00 AM Provider Nat Lopez PA-C Department Family Medicine [facility] ) Leeroy Salas MD [Surgeon] - (The Nephrology office will contact you for a follow up appointment.) Diet: Carb Consistent or DM2 Fluids: 1200ml (5 cups) Addtl Attending Provider Instructions: Follow up with your primary care physician, psychiatrist, and manager beauty. Your medications were changed/decreased. Review them in detail with your primary care physician and psychiatrist. It is also important that you are on fluid restricted diet, as above, to control your sodium level. Pending Studies at Discharge: No Stand-Alone Forms: My [facility] [employer], Smoking Cessation Medications and DC Order Prescriptions: New quetiapine [Seroquel] 200 mg Tablet 200 mg PO HS Qty: 10 0RF magnesium oxide 400 mg (241.3 mg magnesium) Tablet 400 mg PO QAM Qty: 10 0RF clonazepam 0.5 mg Tablet 0.5 mg PO BIDM PRN (Reason: anxiety) Qty: 7 0RF Continued pantoprazole 40 mg tablet,delayed release (DR/EC) 40 mg PO DAILY divalproex 500 mg tablet extended release 24 hr 1,500 mg PO HS gabapentin 100 mg capsule See Rx Instructions .ROUTE .COMPLEX Rx Instructions: 100 mg orally ;1 cap in am and one cap at noon and two capsule at bedtime. metformin 500 mg tablet extended release 24 hr 500 mg PO BID cholestyramine (with sugar) 4 gram powder 4 ea PO DAILY Creon 12,000-38,000 -60,000 unit capsule,delayed release(/EC) 1 cap PO AC Xarelto 20 mg tablet 20 mg PO DAILY Discontinued benztropine 0.5 mg tablet 0.5 mg PO BID clonazepam 1 mg tablet 1 mg PO TID PRN (Reason: Anxiety) buspirone 15 mg tablet 15 mg PO TID escitalopram oxalate 20 mg tablet 20 mg PO DAILY quetiapine 400 mg tablet 400 mg PO HS ropinirole 0.5 mg tablet 0.5 mg PO HS Discharge Orders: Discharge Order (Routine); Ordered 01/19/24 Ordered By: Rivera Lee Admission Data Admit Date/Time: 01/10/24 06:05 Attending Provider: Rivera Lee Admit Provider: Lionel Garduno Primary Care Provider: Nat Lopez Other Providers: Lionel Garduno; Lucero Frost; Altaf Giles; [facility]; Fanny Santamaria; Sindi Stout; Oni Altman; Troy Hernandez; Jaspreet Valle Jr Other Interventions: PSY Interdisciplinary Discharge Planning Last Done: 01/18/24 12:45
[2024-01-19] MEDS: CHOLESTYRAMINE LIGHT 4 GM PKT PO SCH (16:22)
== END 2024-01-19 17:05 | disposition home or self-care (01) | DRG 640 ==
LOC: ED 02:06 → SUATTDRO 06:05 → EDINP 06:05 → 2W 08:21

== ENCOUNTER 2024-10-17 11:02 | Inpatient (IN) ==
[2024-10-17 12:08] LABS: Basophils # (auto) 0.05 K/uL (0.00-0.20); Basophils % (auto) 0.7 %; Eosinophils # (auto) 0.09 K/uL (0.00-0.50); Eosinophils % (auto) 1.3 %; Hematocrit (blood only) 42.2 % (37.0-47.0); Hemoglobin 14.2 g/dl (12.0-16.0); Immature Granulocytes # (auto) 0.06 K/uL (0.01-0.20); Immature Granulocytes % (auto) 0.8 %; Lymphocytes # (auto) 2.18 K/uL (1.20-3.40); Lymphocytes % (auto) 30.4 %; Mean Corpuscular Hemoglobin 30.5 pg (25.0-34.0); Mean Corpuscular Hgb Conc 33.6 g/dL (32.0-36.0); Mean Corpuscular Volume 90.6 fL (80.0-100.0); Mean Platelet Volume 9.4 fL (9.4-12.4); Monocytes # (auto) 0.48 K/uL (0.11-0.59); Monocytes % (auto) 6.7 %; Neutrophils # (auto) 4.31 K/uL (1.40-6.50); Neutrophils % (auto) 60.1 %; Platelet Count 257 K/uL (130-400); RDW Coefficient of Variation 19.2 % (11.5-14.5); RDW Standard Deviation 63.5 fL (36.4-46.3); Red Blood Count 4.66 M/uL (4.20-5.40); White Blood Count 7.17 K/ul (4.8-10.8)
[2024-10-17] MEDS: KETOROLAC TROMETHAMINE 15 MG/ML VIAL IV ONE (12:18)
[2024-10-17] MEDS: SODIUM CHLORIDE 0.9% 500 ML IV ONE (12:18)
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
[2024-10-17 12:24] LABS: Albumin Globulin Ratio 1.2 (0.9-2); Albumin Level 3.7 gm/dl (3.4-5.0); BUN Creatinine Ratio 11.3 (10-20); Bilirubin,Total 0.4 mg/dl (0.2-1.0); Calcium 9.9 mg/dl (8.6-10.3); Creatinine Clr Calc Pharmacy 79.5 ml/min; Globulin 3.2 gm/dl (2.5-4.0); Potassium 4.1 mmol/L (3.5-5.1); Total Protein 6.9 gm/dl (6.0-8.3)
[2024-10-17] MEDS: OPTIRAY 320 100ml IV ONE (12:49)
--- NOTE | 2024-10-17 13:56 | CT Scan Report ---
ABDOMEN AND PELVIS CT WITH IV CONTRAST CT DOSE: 1318.44 mGy.cm HISTORY: Acute lower abdominal pain lower abd pain/rectal pain TECHNIQUE: Multiaxial CT images of the abdomen and pelvis were performed following the IV administrat ion of 90 cc of Optiray, A dose lowering technique was utilized adhering to the principles of ALARA. COMPARISON STUDY: 10/23/2023 FINDINGS: Coronary artery calcifications. Mural fibrofatty changes of the left ventricular apex sugge stive of prior infarct. No pneumatosis or pneumoperitoneum. Limited study secondary to positioning. U nremarkable spleen, mildly atrophic pancreas and adrenal glands. Cholecystectomy with likely postsurg ical biliary ductal dilation. The liver is otherwise unremarkable. There is patency of the hepatic an d portal veins. Unremarkable kidneys without hydronephrosis. Decompressed urinary bladder with mucosal hyperemia, cir cumferential wall thickening with mild periventricular stranding. Pelvic floor relaxation with hyster ectomy. No adnexal mass lesions. Atherosclerosis of the aorta without aneurysm. No pathologically enl arged lymph nodes. There are subcentimeter perirectal lymph nodes Distal esophageal wall thickening with small hiatal hernia. No bowel obstruction. Moderate colonic fe josé miguel retention. There is wall thickening of the anorectal junction. Perirectal inflammatory stranding is trace free pelvic fluid. No abscess or fistula identified. Normal appendix. No acute fracture. IMPRESSION: 1. No bowel obstruction or pneumoperitoneum. 2. Moderate colonic fecal retention. 3. Mild wall thickening of the anorectal junction with adjacent inflammatory stranding and trace pelv ic ascites. Correlate clinically to exclude a mild proctocolitis. A mucosal lesion considered less li amilcar. 4. Subcentimeter perirectal lymph nodes. Attention on follow-up recommended. 5. Suggested cystitis. Correlate with urinalysis. 6. Incidental findings as above. ACT 112: Negative or not required by law. The above report was generated using voice recognition software. It may contain grammatical, syntax o r spelling errors. Electronically signed by: Altaf Lofton M.D. 10/17/2024 1:53 PM
[2024-10-17 14:03] LABS: Appearance Urine Cloudy (Clear); Bacteria Urine Automated 4+ (None Seen); Bilirubin Urine Negative (Negative); Blood Urine Trace (Negative); Color Urine Yellow; Glucose Urine UA Negative (Negative); Ketones Urine 1+ (Negative); Leukocyte Esterase Urine 2+ (Negative); Nitrite Urine Positive (Negative); Protein Urine 1+ (Negative); Specific Gravity Urine 1.019 (1.000-1.030); Urobilinogen Urine Negative (Negative); WBC Urine Automated >50 /hpf (0-5)
[2024-10-17] MEDS: cefTRIAXone SODIUM 2,000 MG/50 ML BAG IV STA (14:48)
--- NOTE | 2024-10-17 14:54 | History & Physical Report ---
<Statement entered by Filipe Wakefield DO - 10/17/24 20:34> I have seen and examined the patient and have discussed the case with the provider above. I have reviewed the advanced practitioner's documentation, and I agree with, and take responsibility for that plan of care. Patient seen and evaluated while still in the ED. She cannot remember the last time she had a bowel movement. Abdomen: soft, mild suprapubic tenderness, no guarding or rigidity Reviewed diagnostics Discussed plan of care as outlined below with JANNA Date of Service October 17, 2024 Assessment & Plan (1) Constipation: (2) Acute UTI: (3) Acute metabolic encephalopathy: (4) Multiple falls: (5) Arm pain, left: (6) Prolonged Q-T interval on ECG: (7) DM II (diabetes mellitus, type II), controlled: (8) History of pulmonary embolism: (9) Schizoaffective disorder: Plan This is a 69-year-old female with PMH of type 2 diabetes, hypothyroidism, prolonged QT interval on EKG, stress incontinence, schizoaffective disorder, history of PE on long-term anticoagulation, panic disorder, tobacco use disorder, ambulatory dysfunction and other medical problems listed below who presents with weakness and abdominal pain over the past few days and was found to have moderate fecal retention and UTI. Acute UTI Abnormal UA, follow urine culture Continue empiric rocephin Recent falls Generalized weakness In setting of UTI Fall precautions PT/OT evaluation Constipation CT abd/pelvis without bowel obstruction or pneumoperitoneum. Moderate fecal retention Soap suds enema in ED, had 2 small bowel movements since Miralax, Docusate, Dulcolax PRN Left humeral fracture Patient unsure when she broke her arm - per records, was admitted 09/09 to [facility] for distal humeral transcondylar fracture. Got significantly somnolent with norco and her home klonopin Discharged from [facility] on 09/27. Scheduled for outpatient ortho follow up but has not yet seen Tylenol, Tramadol PRN severe pain DM II Hold metformin SSI while in-patient BSG AC HS Schizoaffective disorder Continue home dose Seroquel, Valproate, benztropine Anxiety Continue home buspirone, PRN Klonopin History of PE Continue Xarelto Tobacco abuse Smoking cessation counseling, nicotine patch Rash in groin Appears fungal, in setting of urinary incontinence Keep area clean and dry, trial Nystatin cream, wound care for open excoriated area DVT Ppx: Xarelto Code status: FULL PCP: Precious Dispo: Admitted to med/surg Patient seen in collaboration with Dr. Wakefield. Please see addendum. I spent a total of 75 minutes coordinating, documenting, and providing care for this patient excluding time spent in the performance of separately billed services. History of Present Illness Chief Complaint: confusion, weakness Primary Care Provider: Nat Lopez PA-C This is a 69-year-old female with PMH of type 2 diabetes, hypothyroidism, prolonged QT interval on EKG, stress incontinence, schizoaffective disorder, history of PE on long-term anticoagulation, panic disorder, tobacco use disorder, ambulatory dysfunction and other medical problems listed below who presents with weakness and abdominal pain over the past few days. Patient lives with her daughter and ambulates with a walker at baseline. Over the past few days, having more difficulty ambulating around the home. Also notes diffuse abdominal discomfort and pain near her rectum like she needs to have a bowel movement. Denies any nausea or vomiting. No fever, chills, chest pain, shortness of breath, dysuria. Does have some excoriation noted on groin area and states that she has urinary incontinence and area is irritated and itchy. Denies any vaginal burning or discharge. Reportedly had a fall recently and broke her left arm, was discharged from [facility], unsure of all details. Was prescribed tramadol yesterday for pain. Allergies Allergy/AdvReac Type Severity Reaction Status Date / Time bee venom protein (honey bee) Allergy Severe Anaphylaxis Verified 01/10/24 02:33 egg AdvReac Severe Vomiting Verified 01/10/24 02:33 Penicillins AdvReac Severe VOMITING/IT Verified 01/10/24 02:33 DAVON Home Medications Medication Instructions Recorded Confirmed Type cholestyramine (with sugar) 4 gram 4 ea PO DAILY 10/23/23 10/17/24 History oral powder divalproex 500 mg tablet,extended 1,500 mg PO HS 10/23/23 10/17/24 History release 24 hr gabapentin 100 mg capsule See Rx Instructions .Route .COMPLEX 10/23/23 10/17/24 History yfdfbl-[id number] 1 cap PO AC 10/23/23 10/17/24 History 12,000-38,000-60,000 unit capsule,delayed rel (Creon) metformin 500 mg tablet,extended 500 mg PO BID 10/23/23 10/17/24 History release 24 hr pantoprazole 40 mg tablet,delayed 40 mg PO DAILY 10/23/23 10/17/24 History release rivaroxaban 20 mg tablet (Xarelto) 20 mg PO DAILY 10/23/23 10/17/24 History clonazepam 0.5 mg tablet 0.5 mg PO BIDM PRN anxiety #7 tabs 01/19/24 10/17/24 Rx magnesium oxide 400 mg (241.3 mg 400 mg PO QAM #10 tabs 01/19/24 10/17/24 Rx magnesium) tablet quetiapine 200 mg tablet (Seroquel) 200 mg PO HS #10 tabs 01/19/24 10/17/24 Rx benztropine 0.5 mg tablet 0.5 mg PO BID 10/17/24 10/17/24 History buspirone 15 mg tablet 15 mg PO TID 10/17/24 10/17/24 History tramadol 50 mg tablet 50 mg PO Q8H PRN Pain (Scale Score 10/17/24 10/17/24 History 4-6) Past Med/Surg History Problem List Constipation (Acute) Weakness (Acute) Acute UTI (Acute) Encephalopathy Hypomagnesemia (Acute) Hyponatremia (Acute) Multiple falls (Acute) Arm pain, left (Acute) Chest pain (Acute) Acute hyponatremia (Acute) Nausea & vomiting COPD exacerbation Hypotension Rhinovirus (Acute) Elevated lactic acid level (Acute) Vomiting (Acute) Weakness (Acute) Complicated UTI (urinary tract infection) Fall (Acute) Acute metabolic encephalopathy Acute UTI (Acute) Abdominal pain (Acute) Hypercarbia (Acute) Somnolence (Acute) Chronic diarrhea (Acute) Generalized weakness (Acute) Pulmonary embolism Prolonged Q-T interval on ECG DM II (diabetes mellitus, type II), controlled (Acute) Nausea & vomiting (Acute) Anxiety (Acute) Daytime somnolence Hypothyroid Restless leg Morbid obesity with BMI of 45.0-49.9, adult Pulmonary edema (Acute) Neuropathy Tobacco use (Acute) GERD (gastroesophageal reflux disease) Anemia (Acute) Hyperparathyroidism Smoking (Acute) Fatigue History of pulmonary embolism Microcytic anemia Irritable bowel syndrome Schizoaffective disorder Arthritis Diabetes Medical History Weakness Intractable nausea and vomiting 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 Chronic diarrhea Folate deficiency Generalized weakness Rectal bleeding Aspiration pneumonia Iron deficiency anemia Anxiety and depression GERD (gastroesophageal reflux disease) Surgical History History of hysterectomy History of cholecystectomy History of section x2 Family History Mother Diabetes Sister Diabetes Denies family history of Inflammatory bowel disease Social History Smoking Status: Current every day smoker Tobacco Type: Cigarettes Cigarettes Per Day: 40+; Second Hand Exposure: Yes; Do You Dip or Chew Tobacco: No; Hx Alcohol Use: No Hx Substance Use: No Preferred Language: Wolof Communication Ability: Effective 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 How many Children do You have: 2 Feels Safe at Home: Hesitant to Answer Assistive Devices: Walker Review of Systems Review of Systems: At least ten systems reviewed and negative except as noted in the HPI. Physical Exam Physical Exam: General Appearance: WD/WN, vitals as above, NAD, sitting up in bed, pleasant, poor insight Head: normocephalic, atraumatic Eyes: normal inspection, PERRL, conjunctivae normal, anicteric sclerae ENT: external ear and nose normal, oropharynx normal Neck: normal visual inspection, trachea midline, no thyromegaly Respiratory: normal respiratory effort, lungs clear to auscultation, no wheeze, rales, rhonchi. No accessory muscle use Cardiovascular: regular rate, rhythm, normal peripheral pulses, no BLE edema. Vessels: no JVD Chest: normal inspection of chest Abdomen/GI: normal bowel sounds, soft, diffuse TTP in LLQ/RLQ, no hepatosplenomegaly Extremities/Musculoskeletal: no cyanosis or clubbing, extremities motor strength 5/5 Neurologic: PERRL, EOMI, accommodation nl, no face palsy, no dysarthria, CN's II-XI intact bilaterally and moves all extremities Psychiatric: A+Ox3 Skin: no rashes, normal color, warm/dry. Groin area/bilateral medial thighs erythematous and excoriated Results & Data Results & Data Vital Signs (Past 12 Hours) Vital Signs Temp Pulse Pulse Resp BP BP Pulse Ox 10/17/24 13:00 61 22 103/75 91 10/17/24 12:25 72 10/17/24 11:09 36.8 C 75 20 123/55 L 95 O2 Del Method 10/17/24 13:00 Room Air 10/17/24 12:25 10/17/24 11:09 Room Air Laboratory Results Short CBC 10/17/24 Range/Units 11:15 WBC 7.17 (4.8-10.8) K/ul Hgb 14.2 (12.0-16.0) g/dl Hct 42.2 (37.0-47.0) % Plt Count 257 (130-400) K/uL BMP 10/17/24 11:15 Sodium 138 Potassium 4.1 Chloride 104 Carbon Dioxide 25 BUN 8 Creatinine 0.71 Glucose 84 Calcium 9.9 Liver Function 10/17/24 Range/Units 11:15 Total Bilirubin 0.4 (0.2-1.0) mg/dl AST 28 (13-39) U/L ALT 25 (7-52) U/L Alkaline Phosphatase 196 H (34-104) U/L Albumin 3.7 (3.4-5.0) gm/dl Urine 10/17/24 Range/Units 13:32 Urine Color Yellow Urine Appearance Cloudy A (Clear) Urine pH 6.0 (4.5-7.5) Ur Specific [place] 1.019 (1.000-1.030) Urine Protein 1+ H (Negative) Urine Glucose (UA) Negative (Negative) Diagnostic Findings Abdomen/Pelvis CT 10/17/24 12:[address] WITH IV CONTRAST CT DOSE: 1318.44 mGy.cm HISTORY: Acute lower abdominal pain lower abd pain/rectal pain TECHNIQUE: Multiaxial CT images of the abdomen and pelvis were performed following the IV administration of 90 cc of Optiray, A dose lowering technique was utilized adhering to the principles of ALARA. COMPARISON STUDY: 10/23/2023 FINDINGS: Coronary artery calcifications. Mural fibrofatty changes of the left ventricular apex suggestive of prior infarct. No pneumatosis or pneumoperitoneum. Limited study secondary to positioning. Unremarkable spleen, mildly atrophic pancreas and adrenal glands. Cholecystectomy with likely postsurgical biliary ductal dilation. The liver is otherwise unremarkable. There is patency of the hepatic and portal veins. Unremarkable kidneys without hydronephrosis. Decompressed urinary bladder with mucosal hyperemia, circumferential wall thickening with mild periventricular stranding. Pelvic floor relaxation with hysterectomy. No adnexal mass lesions. Atherosclerosis of the aorta without aneurysm. No pathologically enlarged lymph nodes. There are subcentimeter perirectal lymph nodes Distal esophageal wall thickening with small hiatal hernia. No bowel obstruction. Moderate colonic fecal retention. There is wall thickening of the anorectal junction. Perirectal inflammatory stranding is trace free pelvic fluid. No abscess or fistula identified. Normal appendix. No acute fracture. IMPRESSION: 1. No bowel obstruction or pneumoperitoneum. 2. Moderate colonic fecal retention. 3. Mild wall thickening of the anorectal junction with adjacent inflammatory stranding and trace pelvic ascites. Correlate clinically to exclude a mild proctocolitis. A mucosal lesion considered less likely. 4. Subcentimeter perirectal lymph nodes. Attention on follow-up recommended. 5. Suggested cystitis. Correlate with urinalysis. 6. Incidental findings as above. ACT 112: Negative or not required by law. The above report was generated using voice recognition software. It may contain grammatical, syntax or spelling errors. Electronically signed by: Altaf Lofton M.D. 10/17/2024 1:53 PM Code Status & VTE Plan VTE Prophylaxis Plan VTE Prophylaxis will be ordered: Yes (1) Constipation Constipation type: unspecified constipation type Qualified Code(s): K59.00 - Constipation, unspecified (7) DM II (diabetes mellitus, type II), controlled Diabetes mellitus complication status: without complication Diabetes mellitus skilled nursing insulin use: unspecified skilled nursing insulin use status Qualified Code(s): E11.9 - Type 2 diabetes mellitus without complications (9) Schizoaffective disorder Schizoaffective disorder type: depressive Qualified Code(s): F25.1 - Schizoaffective disorder, depressive type
[2024-10-17] MEDS: MoRPHine SULFATE 4 MG/ML 1 ML CARP\\VIAL IV STA (16:13)
[2024-10-17] MEDS ORDERED: ALUMINUM/MAGNESIUM SUSP 30 ML UDC PO PRN (16:38)
[2024-10-17] MEDS: POLYETHYLENE (MIRALAX) 17 GM PACK PO PRN (18:48)
[2024-10-17] MEDS: traMADol HCL 50 MG TABLET PO PRN (18:48)
[2024-10-17] MEDS ORDERED: CARBOHYDRATES FOR HYPOGLYCEMIA PO PRN (20:05)
[2024-10-17] MEDS ORDERED: GLUCOSE 40% GEL 15 GM TUBE PO PRN (20:05)
[2024-10-17] MEDS ORDERED: GLUCOSE 10 TAB/TUBE PO PRN (20:05)
[2024-10-17] MEDS ORDERED: DEXTROSE 50% 50 ML SYRINGE IV PRN (20:05)
[2024-10-17] MEDS ORDERED: GLUCAGON FOR INJ 1 MG VIAL SQ PRN (20:05)
[2024-10-17] MEDS ORDERED: bisacodyL 5 MG TABEC PO PRN (20:14)
[2024-10-17] MEDS: INSULIN ASPART PER UNIT CHARGE SC SCH (21:33)
[2024-10-17] MEDS: ACETAMINOPHEN 325 MG TAB PO PRN (22:08)
[2024-10-17] MEDS: NYSTATIN OINT 15 GM TUBE EXT SCH (22:09)
[2024-10-17] MEDS: POLYETHYLENE (MIRALAX) 17 GM PACK PO SCH (22:10)
[2024-10-17] MEDS: DOCUSATE SODIUM 100 MG CAP PO SCH (22:10)
[2024-10-17] MEDS: clonazePAM 0.5 MG TAB PO PRN (22:27)
[2024-10-17] MEDS: GABAPENTIN 300 MG CAP PO SCH (22:27)
[2024-10-17] MEDS: BENZTROPINE MESYLATE 0.5 MG TAB PO SCH (22:27)
[2024-10-17] MEDS: QUEtiapine FUMARATE 200 MG TAB PO SCH (22:27)
[2024-10-17] MEDS: DIVALPROEX EXTENDED RELEASE 500 MG TAB PO SCH (22:28)
[2024-10-17] MEDS: busPIRone 15 MG TAB PO SCH (22:28)
[2024-10-18] MEDS: GABAPENTIN 100 MG CAP PO SCH (07:24)
[2024-10-18 08:05] LABS: Hematocrit (blood only) 35.3 % (37.0-47.0); Hemoglobin 11.8 g/dl (12.0-16.0); Mean Corpuscular Hemoglobin 30.6 pg (25.0-34.0); Mean Corpuscular Hgb Conc 33.4 g/dL (32.0-36.0); Mean Corpuscular Volume 91.7 fL (80.0-100.0); Mean Platelet Volume 9.6 fL (9.4-12.4); Platelet Count 216 K/uL (130-400); Red Blood Count 3.85 M/uL (4.20-5.40); White Blood Count 8.23 K/ul (4.8-10.8)
[2024-10-18] MEDS: PANTOprazole 40 MG TAB PO SCH (08:13)
[2024-10-18] MEDS: MAGNESIUM OXIDE 400 MG TAB PO SCH (08:13)
[2024-10-18 08:33] LABS: Anion Gap 5 (3-11); Blood Urea Nitrogen 12 mg/dl (6-23); Calcium 8.8 mg/dl (8.6-10.3); Carbon Dioxide 27 mmol/L (21-32); Chloride 105 mmol/L (98-107); Creatinine Clr Calc Pharmacy 89.5 ml/min; Glucose 70 mg/dl (70-99(Fasting)); Sodium 137 mmol/L (136-145)
[2024-10-18] MEDS ORDERED: POLYETHYLENE (MIRALAX) 17 GM PACK PO SCH (09:00)
[2024-10-18 09:51] LABS: Estimated Average Glucose 97 mg/dl
[2024-10-18] MEDS: SODIUM CHLORIDE 0.9% 1,000 ML IV ONE (12:26)
[2024-10-18] MEDS: LACTULOSE SYRUP 20 GM/30 ML UDC PO SCH (12:45)
[2024-10-18] MEDS: cefTRIAXone SODIUM 2,000 MG/50 ML BAG IV SCH (13:50)
[2024-10-18] MEDS: RIVAROXABAN 20 MG TAB PO SCH (15:42)
--- NOTE | 2024-10-18 16:09 | Hospitalist Progress Note ---
Date of Service October 18, 2024 Assessment & Plan (1) Acute UTI: Plan: Klebsiella (2) Acute metabolic encephalopathy: (3) Constipation: (4) Multiple falls: (5) Arm pain, left: (6) Prolonged Q-T interval on ECG: (7) DM II (diabetes mellitus, type II), controlled: (8) History of pulmonary embolism: (9) Schizoaffective disorder: Plan Patient with Klebsiella variicola UTI and metabolic encephalopathy Continue Rocephin follow sensitivities Patient still without good bowel movement, start lactulose, continue other bowel medications, soapsuds enema Therapies Attempted to contact daughter via phone, no answer Admission and Anticipated Discharge Date Admission Date: October 17, 2024 Subjective Patient still pretty sleepy this morning. Denies any pain. A bit more responsive. Was able to report had a few small formed stool Physical Exam Physical Exam: Constitutional: Alert, sleepy but does awaken HEENT: Mucous membranes moist. Lungs: Clear to auscultation, decreased, no wheezes rales or rhonchi CV: S1-S2, regular Abdomen: Soft, nontender, nondistended Extremities: No significant edema Neuro: No focal deficits, generalized weakness Psych: Cooperative, normal mood Results & Data Results & Data Vital Signs (Past 12 Hours) Vital Signs Temp Pulse Resp BP Pulse Ox O2 Del Method 10/18/24 14:40 36.4 C L 69 16 101/65 95 Room Air 10/18/24 07:10 Room Air 10/18/24 07:09 36.6 C 67 16 97/66 L 94 Room Air Diagnostic Findings Reviewed imaging, laboratory and diagnostic studies. Pertinent findings as below. 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
[2024-10-18] MEDS: ONDANSETRON INJ 2 MG/ML 2 ML VIAL IV PRN (17:15)
--- OUTSIDE RECORDS SUMMARY | 2024-10-18 23:00 | External Medical Summary | Summary of Care ---
Author Name Unknown Organization [facility] Address [address] [place] [address] Phone [phone] Care Team Providers Care Jacket Changer Name Role Phone Wen Cardoza MD Primary Care Pr ovider Encounter Details Date Type Department Care Team (Late st Contact Info) Description 10/17/2024 Orders Only Family Medicine [address] [phone] Wen Cardoza MD [address] [place] [address] [place] [phone] Allergies Active Allergy Reactions Criticality Noted Date Comments Bee Venom Unknown High 02/11/2023 Other Reaction(s): Anaphylaxis Egg Solids, Whole High 08/22/2022 Other Reaction(s): Vomiting Penicillins 08/07/2005 vomiting and itchy documented as of this encounter (statuses as of 10/17/2024) Medications Divalproex Sodium 500 MG Oral Tablet Delayed Release (Candelario ROLLINS) 3 tabs at bedtime 2 Active Escitalopram Oxalate 20 MG Oral Tablet (Lexapro) Take 1 Tablet by mouth in the morning. 2 Active Ferrous Sulfate 325 (65 Fe) MG Oral Tablet (Feosol) Take 1 Tablet by mouth in the morning and 1 Tablet before bedtime. 60 Tablet 11 2 Active Cholestyramine 4 GM/DOSE Oral PowderIndicatio ns:Irritable bowel syndrome DISSOLVE ONE AND ONE-HALF scoops into EIGHT ounces of JUICE OR water EVERY DAY 378 g 5 3 Active QUEtiapine Fumarate 200 MG Oral Tablet (SEROquel) Take 1 Tablet by mouth at bedtime. 4 Active clonazePAM 0.5 MG Oral Tablet (KlonoPIN) Take 1 Tablet by mouth 2 times a day as needed for Anxiety. 4 Active Xarelto 20 MG Oral Tablet (Rivaroxaban) TAKE ONE TABLET EVERY DAY 90 Tablet 5 4 Active Pantoprazole Sodium 40 MG Oral Tablet Delayed Release (Protonix)Indic ations:Gastroes ophageal reflux disease without esophagitis TAKE ONE TABLET IN THE MORNING 90 Tablet 1 4 Active Bath/Shower SeatIndications :Type 2 diabetes mellitus with hemoglobin A1c goal of less than 8.0% ([facility]) Use as directed 1 Each 4 Active metFORMIN HCl ER 500 MG Oral Tablet Extended Release 24 Hour (Glucophage XR) TAKE ONE TABLET TWICE DAILY 180 Tablet 2 4 Active rOPINIRole HCl 0.5 MG Oral Tablet (Requip) Take 1 Tablet by mouth at bedtime. Active busPIRone HCl 15 MG Oral Tablet (Buspar) TAKE 1 TABLET BY MOUTH THREE TIMES A DAY ( AM, NOON AND BEDTIME) Active Benztropine Mesylate 0.5 MG Oral Tablet (Cogentin) Take 1 Tablet by mouth in the morning and 1 Tablet before bedtime. Active Gabapentin 100 MG Oral Capsule (Neurontin) 200 mg in the AM and at Noon; 300 mg at night 210 Capsule 2 4 Active Nystatin 407035 UNIT/GM External Ointment Apply topically to affected area 2 times a day. To affacted area for two weeks. 15 g 2 4 Active Nystatin 167486 UNIT/GM External Powder (Nystop) Apply topically to affected area 3 times a day. Apply to affected area once healed 15 g 4 Active traMADol HCl 50 MG Oral Tablet (Ultram) Take 1 Tablet by mouth every 8 hours as needed for Pain, Severe for up to 15 days. 45 Tablet 4 10/31/20 24 Active Incontinence Supplies KitIndications: Mixed incontinence,Ir ritable bowel syndrome with diarrhea Adult diapers (qt 300); chux pads (qt 300); gloves (qt 200); Dx: IBS and incontinence 1 Kit 11 4 Active documented as of this encounter (statuses as of 10/17/2024) Active Problems Problem Noted Date Diagnosed Date Prolonged Q-T interval on ECG 10/06/2024 Neuropathy 10/06/2024 Iron deficiency anemia 10/06/2024 Hypomagnesemia 10/06/2024 Hypokalemia 10/06/2024 Hyperparathyroidism 10/06/2024 Folate deficiency 10/06/2024 Female stress incontinence 05/31/2024 Body mass index (BMI) of 45.0 to 49.9 in adult 1 Overview: Per Obesity protocol Type 2 diabetes mellitus wit h hemoglobin A1c goal of less than 8.0% 06/16/2023 Schizoaffective disorder 06/16/2023 Tobacco use disorder 06/16/2023 Gastroesophageal reflux disease without esophagi tis 06/16/2023 History of pulmonary embolism 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 0 06/16/2023 Overview (06/16/2023): Xarelto IBS (irritable bowel syndrome) 06/16/2023 Wheelchair dependence 06/06/2020 Hyperlipidemia 08/23/2019 Vitamin D deficiency 08/23/2019 Degeneration of intervertebral disc of lumbar re gion 10/10/2012 Hypothyroidism 06/28/2012 Other specified types of schizophrenia, chronic condition 08/07/2005 Panic disorder 08/07/2005 Peptic ulcer 08/07/2005 documented as of this encounter (statuses as of 10/17/2024) Immunizations Name Administration Dates Next Due COVID-19 mRNA, LNP-s, No Pre serve, 2-Dose Series (BarBird) 11/11/2020 PPD 04/14/2022,04/21/2021 documented as of this encounter Social History Tobacco Use Types Packs/Day Years Used Date Smoking Tobacco: Every Day Cigarettes 1 55.1 Started: 1967 Smokeless Tobacco: Never Alcohol Use Standard Drinks/Week Comments No 0 (1 standard drink = 0.6 oz pur e alcohol) Comments No Sex and Gender Information Value Date Recorded Sex Assigned at Not on file Legal Sex Female 5:50 AM EST Gender Identity Not on file Sexual Orientation Not on file Occupation Industry Job Start Date Job End Date On SSI and SSD Not on file Not on file Not on file documented as of this encounter Plan of Treatment Upcoming Encounters Date Type Department Care Team (Late st Contact Info) Description 10/25/2024 8:00 AM EST Office Visit Orthopaedics [facility] [address] [place] [address] Randa Jaramillo MD [address] [place] [address] 11/27/2024 8:00 AM EST Office Visit [address] [phone] Wen Cardoza MD [address] [place] [address] [place] [phone] 02/05/2025 8:20 AM EDT Office Visit [address] [phone] Wen Cardoza MD [address] [place] [address] [place] [phone] Health Maintenance Due Date Last Done Comments DISCUSS TOBACCO CESSATION (REFER TO SMARTSET #1743) 1957 Pneumococcal Vaccine: 65+ Years (1 of 2 - PCV) 1963 Depression Screening 1969 Diabetic Eye Exam 1975 Diabetic Foot Exam 1975 Hepatitis C Screening 1975 DTap/Tdap Vaccines (1 - Tdap) 1976 Mammogram 1997 Cologuard 2002 Sigmoidoscopy 2002 Lung Cancer Screening 2007 Zoster Vaccines (1 of 2) 2007 Fecal Occult Blood Test 01/05/2018 01/05/2017 DXA Scan 2022 Adult Wellness Visit 2023 COVID-19 Vaccine (2 - 2023-25 season) 2024 11/11/2020 Influenza Vaccine (FLU shot) (#1) 2024 HbA1c 02/04/2025 08/07/2024, 07/28/2023 Albumin/Creatinine Ratio 08/07/2025 08/07/2024 GFR 09/27/2025 09/27/2024, 11/0 05/2024, 09/20/2024, Additional history exists Colonoscopy 09/24/2027 09/24/2017 Colorectal Cancer Screening 09/24/2027 Lipid Panel 08/07/2029 08/07/2024, 07/28/2023 HPV (Gardasil) Vaccine Aged Out No lo nger eligible based on patient's age to complete this topic Hepatitis B Vaccine Aged Out No longe r eligible based on patient's age to complete this topic MENINGOCOCCAL (MENACTRA/MENVEO) Aged Out No longer eligible based on patient's age to complete this topic documented as of this encounter Medical Devices Not on filedocumented as of this encounter Procedures Procedure Name Priority Date/Time Associated Diagnosis Comments PHOSPHORUS Routine 09/13/2024 TSH Routine 09/13/2024 documented in this encounter Results * PHOSPHORUS (09/13/2024) PHOSPHORUS-[facility] 4.4 2.5 - 4.9 MG/DL OUTSIDE LAB (SEE SCANNED REPORT) Blood Venous blood specimen / Unknown 09/13/2024 us lT Vargas DO LAB BLOOD ORDERABLES Final Res ult OUTSIDE LAB (SEE SCANNED REPORT) * TSH (09/13/2024) TSH - OUTSIDE LAB 3.080 0.360 - 3.740 MCIU/ML OUTSIDE LAB (SEE SCANNED REPORT) Blood Venous blood specimen / Unknown 09/13/2024 us Tl Vargas DO LAB BLOOD ORDERABLES Final Res ult OUTSIDE LAB (SEE SCANNED REPORT) documented in this encounter Care Teams Jacket Changer Relationship Specialty Start Date End Date Wen Cardoza MD [address] [place] [address] [place] [phone] PCP - General Family Medicine 10/16/24 documented as of this encounter
--- OUTSIDE RECORDS SUMMARY | 2024-10-18 23:01 | External Medical Summary | Summary of Care ---
Author Name Unknown Organization [facility] Address [address] [place] [address] Phone [phone] Care Team Providers Care Cardiologist Name Role Phone Wen Cardoza MD Primary Care Pr ovider Reason for Referral * Evaluate & Treat - Unlimited Visits (Within 10 days (routine)) - Authorized Specialty Diagnoses / Procedures Referred By Julián loredo Referred To Contact Orthopaedic Surgery / Orthopedics Diagnoses Closed fracture of left upper extremity with routine healing, subsequent encounter Wen Cardoza MD [address] [place] [address] [place] [phone] Phone: tel: fax: Referral ID Status Reason Start Date Expiration Date Visits Requested Visits Authorized [id number] Authorized Specialty Services Required 10/16/[phone] Question Answer Referral Priority Within 10 days (routine) Where should this appointment be scheduled? [facility] What body part is the patient being seen for? Arm/Elbow What condition is the patient being seen for? Fracture including related infection - admitted to [facility] Reason for Visit * Reason Comments Hospital Follow-Up Encounter Details Date Type Department Care Team (Late st Contact Info) Description 10/16/2024 9:20 AM EST Office Visit Family Medicine [address] [place] [phone] Wen Cardoza MD [address] [place] [address] [place] [phone] Closed fracture of left upper extremity with routine healing, subsequent encounter*; Yeast dermatitis; Mixed incontinence; Type 2 diabetes mellitus with hemoglobin A1c goal of less than 8.0% (HCC); Irritable bowel syndrome with diarrhea Allergies Active Allergy Reactions Criticality Noted Date Comments Bee Venom Unknown High 02/11/2023 Other Reaction(s): Anaphylaxis Egg Solids, Whole High 08/22/2022 Other Reaction(s): Vomiting Penicillins 08/07/2005 vomiting and itchy documented as of this encounter (statuses as of 10/16/2024) Medications Divalproex Sodium 500 MG Oral Tablet Delayed Release (Depakote DR) 3 tabs at bedtime 11/04/20 22 Active Escitalopram Oxalate 20 MG Oral Tablet (Lexapro) Take 1 Tablet by mouth in the morning. 11/04/20 22 Active Ferrous Sulfate 325 (65 Fe) MG Oral Tablet (Feosol) Take 1 Tablet by mouth in the morning and 1 Tablet before bedtime. 60 Tablet 11 11/04/20 22 Active Cholestyramine 4 GM/DOSE Oral PowderIndicati ons:Irritable bowel syndrome DISSOLVE ONE AND ONE-HALF scoops into EIGHT ounces of JUICE OR water EVERY DAY 378 g 5 11/05/20 23 Active QUEtiapine Fumarate 200 MG Oral Tablet (SEROquel) Take 1 Tablet by mouth at bedtime. 01/31/20 24 Active clonazePAM 0.5 MG Oral Tablet (KlonoPIN) Take 1 Tablet by mouth 2 times a day as needed for Anxiety. 01/31/20 24 Active Xarelto 20 MG Oral Tablet (Rivaroxaban) TAKE ONE TABLET EVERY DAY 90 Tablet 5 04/13/20 24 Active Pantoprazole Sodium 40 MG Oral Tablet Delayed Release (Protonix)Natasha cations:Gastro esophageal reflux disease without esophagitis TAKE ONE TABLET IN THE MORNING 90 Tablet 1 07/06/20 24 Active Bath/Shower SeatIndication s:Type 2 diabetes mellitus with hemoglobin A1c goal of less than 8.0% (HCC) Use as directed 1 Each 08/07/20 24 Active metFORMIN HCl ER 500 MG Oral Tablet Extended Release 24 Hour (Glucophage XR) TAKE ONE TABLET TWICE DAILY 180 Tablet 2 08/28/20 24 Active rOPINIRole HCl 0.5 MG Oral Tablet [...] 300 mg at night 210 Capsule 2 10/16/20 24 Active Nystatin 187802 UNIT/GM External Ointment Apply topically to affected area 2 times a day. To affacted area for two weeks. 15 g 2 10/16/20 24 Active Nystatin 677138 UNIT/GM External Powder (Nystop) Apply topically to affected area 3 times a day. Apply to affected area once healed 15 g 10/16/20 24 Active traMADol HCl 50 MG Oral Tablet (Ultram) Take 1 Tablet by mouth every 8 hours as needed for Pain, Severe for up to 15 days. 45 Tablet 10/16/20 24 2023 Active Incontinence Supplies KitIndications :Mixed incontinence,I rritable bowel syndrome with diarrhea Adult diapers (qt 300); chux pads (qt 300); gloves (qt 200); Dx: IBS and incontinence 1 Kit 11 10/16/20 24 Active Loratadine 10 MG Oral Tablet Take 1 Tablet by mouth in the morning. 30 Tablet 11 11/04/20 22 2023 Discontinued Gabapentin 100 MG Oral Capsule (Neurontin) 1 in am, 1 at noon and 2 at night 11/04/20 22 2023 Discontinued(R efill) Creon [address] UNIT Oral Capsule Delayed Release Particles (Pancrelipase (Pau-Exhk-Nyyq )) One capsule three times a day 90 Capsule 5 12/20/19 24 2023 Discontinued Nystatin 501156 UNIT/GM External CreamIndicatio ns:Cutaneous candidiasis Apply topically to affected area 2 times a day. To affacted area for two weeks. 30 g 2 08/07/20 24 2023 Discontinued Cholestyramine 4 GM/DOSE Oral PowderIndicati ons:Irritable bowel syndrome DISSOLVE ONE AND ONE-HALF scoops into EIGHT ounces of JUICE OR water EVERY DAY 378 g 1 08/30/20 24 2023 Discontinued(M edication List Clean Up) traMADol HCl 50 MG Oral Tablet (Ultram) TAKE ONE TABLET BY MOUTH EVERY 8 HOURS NEEDED FOR PAIN (SCALE7-10) 10/03/20 24 2023 Discontinued(R efill) documented as of this encounter (statuses as of 10/16/2024) Active Problems Problem Noted Date Diagnosed Date [...] tis 06/16/2023 History of pulmonary embolism 06/16/2023 skilled nursing current use of anticoagulant therapy 0 06/16/2023 Overview (06/16/2023): Xarelto IBS (irritable bowel syndrome) 06/16/2023 Wheelchair dependence 06/06/2020 Hyperlipidemia 08/23/2019 Vitamin D deficiency 08/23/2019 Degeneration of intervertebral disc of lumbar re gion 10/10/2012 Hypothyroidism 06/28/2012 Other specified types of schizophrenia, chronic condition 08/07/2005 Panic disorder 08/07/2005 Peptic ulcer 08/07/2005 documented as of this encounter (statuses as of 10/16/2024) Immunizations Name Administration Dates Next Due COVID-19 mRNA, LNP-s, No Pre serve, 2-Dose Series (WeSpire) 11/11/2020 PPD 04/14/2022,04/21/2021 documented as of this encounter Social History Tobacco Use Types Packs/Day Years Used Date Smoking Tobacco: Every Day Cigarettes 1 55.1 Started: 1967 Smokeless Tobacco: Never Tobacco Cessation:Ready to Q uit: Not Asked; Counseling Given: Not Answered Alcohol Use Standard Drinks/Week Comments No 0 [...] on file documented as of this encounter Last Filed Vital Signs Vital Sign Reading Time Taken Comments Blood Pressure 90/62 10/16/2024 8:23 AM EST Pulse 70 10/16/2024 8:23 AM EST Temperature - - Respiratory Rate - - Oxygen Saturation 94% 10/16/2024 8:23 AM EST Inhaled Oxygen Concentration - - Weight - - Height 152.4 cm (5') 10/16/2024 8:23 AM EST Body Mass Index - - documented in this encounter Patient Instructions * Patient Instructions* Wen Cardoza MD - 10/16/2024 9:00 AM EST No more than 600 mg ibuprofen per day, or 500 mg naproxen Increase gabapentin by 1 tab at each spot documented in this encounter Progress Notes * Wen Cardoza MD - 10/16/2024 8:32 AM EST Images from the original note were not included. History of Present Illness Tierra Gil is a 69 year old female that presents for Hospital Follow-Up. Here with daughter Had several falls at home. 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 Fell again when she got upto go to the bathroom from bed. Couldn't use her arm after that so went to the hospital 2 days later. Was in [facility] 2 weeks and then [facility]. Discharged 10/02. Saw Ortho in the hospital, but not yet as an outpatient. Had labs from 09/27 from [facility]. Is on xarelto, avoids NSAIDs. Tramadol 7 days recent (10/03). Is on klonopin BID every day. Gets home health through [facility]. Does have home PT and OT. Typically uses a walker at home. Sleeps on the couch, has trouble getting up and down off the couch. Takes questran for IBS and incontinence, gets a little constipated sometimes, but prefers that to the incontinence. Physical Exam BP 90/62 | Pulse 70 | Ht 5' (1.524 m) | SpO2 94% | BMI 45.79 kg/m | BSA 2.12 m Physical Exam Vitals and nursing note reviewed. Constitutional: General: She is not in acute distress. Appearance: Normal appearance. HENT: Head: Normocephalic and atraumatic. Nose: Nose normal. Mouth/Throat: Mouth: Mucous membranes are moist. Eyes: Extraocular Movements: Extraocular movements intact. Cardiovascular: Rate and Rhythm: Normal rate and regular rhythm. Pulmonary: Effort: Pulmonary effort is normal. Breath sounds: Normal breath sounds. Musculoskeletal: Right forearm: Normal. Cervical back: Neck supple. Comments: L forearm in splint Neurological: General: No focal deficit present. Mental Status: She is alert. Psychiatric: Mood and Affect: Mood normal. I have reviewed most recent labs BMP results Recent Labs Units 09/27/24 0539 09/21/24 0706 09/20/24 0622 SODIUM - [facility] mmol/L 137 135 136 POTASSIUM - [facility] mmol/L 4.4 4.8 5.2* CHLORIDE - [facility] mmol/L 100 100 98 CO2 - [facility] mmol/L 25 25 24 CREATININE - [facility] mg/dL 0.7 0.7 0.7 BUN - [facility] mg/dL 10 20 21* CBC results Recent Labs Units 09/27/24 0539 09/20/24 0622 08/07/24 0854 WBC K/uL 4.89 8.05 7.52 HGB g/dL 10.7* 12.4 10.2* HCT % 33.1* 38.6 32.9* PLT K/uL 261 334 190 Assessment and Plan Closed fracture of left upper extremity with routine healing, subsequent encounter Recent discharge from rehab hospital 2 weeks ago. Still having significant pain in her arm, will recheck an xray and refer back to Ortho (the patient hasn't seen Ortho since d/c from [facility]). Has home nursing, PT and OT, to continue. Discussed pain control and reasonable goals. As she is on a daily benzo and we are 1 month out fromthe injury, I would try to avoid escalating pain meds and avoid stronger opiates. Could add a smalldose of NSAIDs (BUN and Cr reviewed, cautioned with xarelto) and continue Tylenol in appropriate dosages. Will increase her gabapentin while she is in pain. - ORTHOPAEDICS REFERRAL OP - XR FOREARM 2 VIEWS Yeast dermatitis In the groin area, irritated by diaper per daughter. Will start nystatin ointment until better healed, then powder to prevent further. Can try gauze in the area as well so it doesn't rub. Mixed incontinence Requires incontinence supplies, will send. Uses approx 6-10 chux per day. Type 2 diabetes mellitus with hemoglobin A1c goal of less than 8.0% ([facility]) On metformin, sugars controlled per daughter. Irritable bowel syndrome with diarrhea Incontinence supplies, continue questran Wrap-Up Follow Up: Return in about 6 weeks (around 11/27/2024) for f/u chronic issues. | For: f/u chronic issues Time: I spent a total of 40-54 minutes (exact time 50 mins) on the date of service in preparation, delivery, and documentation of the care provided to Tierra Gil excluding any time spent in the performance of separately billed services. documented in this encounter Nursing Notes * Gloria Heath CMA - 10/16/2024 8:30 AM EST Pt feel at end of August was in [facility] and d/c a to [facility] and d/c from there in October 02 to home. Here to get referral to [facility], fractured her humerus and has been in soft cast for 5 weeks. Wants DME for diapers and chucks pads, has currently but want quantity increased. Gets other DME supplys through P documented in this encounter Plan of Treatment Upcoming Encounters Date Type Department Care Team (Late st Contact Info) Description 10/25/2024 8:00 AM EST Office Visit Orthopaedics [facility] [address] [place] [address] Randa Jaramillo MD [address] [place] [place] [phone] 11/27/2024 8:00 AM EST Office Visit Family Medicine [address] [phone] Wen Cardoza MD [address] [place] [address] [place] [phone] 02/05/2025 8:20 AM EDT Office Visit Family [address] [phone] Wen Cardoza MD [address] [place] [address] [place] [phone] Pending Results Name Type Priority Associated Diagnoses Date /Time XR FOREARM 2 VIEWS Medical Imaging Routine Closed fracture of left upper extremity with routine healing, subsequent encounter 10/16/2024 9:25 AM EST Scheduled Referrals Name Type Priority Associated Diagnoses Order Schedule ORTHOPAEDICS REFERRAL OP Referral Within 10 days (routine) Closed fracture of left upper extremity with routine healing, subsequent encounter Ordered: 10/16/2024 Health Maintenance Due Date Last Done Comments DISCUSS TOBACCO CESSATION (REFER TO SMARTSET #0567) 1957 Pneumococcal Vaccine: 65+ Years (1 of 2 - PCV) 1963 Depression Screening 1969 Diabetic Eye Exam 1975 Diabetic Foot Exam 1975 Hepatitis C Screening 1975 DTap/Tdap Vaccines (1 - Tdap) 1976 Mammogram 1997 Cologuard 2002 Sigmoidoscopy 2002 Lung Cancer Screening 2007 Zoster Vaccines (1 of 2) 2007 Fecal Occult Blood Test 01/05/2018 01/05/2017 DXA Scan 2022 Adult Wellness Visit 2023 COVID-19 Vaccine ( season) 2024 11/11/2020 Influenza Vaccine (FLU shot) [...] as of this encounter Visit Diagnoses Diagnosis Closed fracture of left upper extremity with routine healing, subsequent encounter- Primary Yeast dermatitis Candidiasis of skin and nails Mixed incontinence Mixed incontinence urge and stress (male)(female) Type 2 diabetes mellitus with hemoglobin A1c goal of less than 8.0% (HCC) Irritable bowel syndrome with diarrhea Irritable bowel syndrome documented in this encounter Care Teams Cardiologist Relationship Specialty Start Date End Date Wen Cardoza MD [address] [place] [address] [place] [phone] PCP - General Family Medicine 10/16/24 documented as of this encounter"
--- OUTSIDE RECORDS SUMMARY | 2024-10-18 23:01 | External Medical Summary | Summary of Care ---
Author Name Unknown Organization [facility] Address [address] [place] [address] Phone [phone] Care Team Providers Care Crimper Operator Name Role Phone Wen Cardoza MD Primary Care Pr ovider Reason for Visit * Reason Onset Date Comments Medical Records Request 10/16/2024 [facility] Encounter Details Date Type Department Care Team (Late st Contact Info) Description 10/16/[address] [phone] Wen Cardoza MD [address] [place] [address] [place] [phone] Medical Records Request ([facility]... Allergies Active Allergy Reactions Criticality Noted Date [...] A1c goal of less than 8.0% ([facility]) Use as directed 1 Each 4 Active [...] night 210 Capsule 2 4 Active Nystatin 353019 UNIT/GM External Ointment Apply topically to affected area 2 times a day. To affacted area for two weeks. 15 g 2 4 Active Nystatin 141231 UNIT/GM External Powder (Nystop) Apply topically to [...] tis 06/16/2023 History of pulmonary embolism 06/16/2023 half-way current use of anticoagulant therapy 0 06/16/2023 [...] mRNA, LNP-s, No Pre serve, 2-Dose Series (Soceaniq) 11/11/2020 PPD 04/14/2022,04/21/2021 documented as of this [...] encounter Miscellaneous Notes * Telephone Encounter - Hedy Frederick OSA - 10/16/2024 9:51 AM EST Medical records request was completed and faxed to [facility] at [phone] to get medical records from [facility] in August sent to Dr. Lang. Copy of request faxed to [facility] also. documented in this encounter Plan of Treatment Upcoming Encounters Date Type Department Care Team (Late st Contact Info) Description 10/25/2024 8:00 AM EST Office Visit Orthopaedics [facility] [address] [facility] [place] [address] Randa Jaramillo MD [address] [facility] [place] [address] 11/27/2024 8:00 AM EST Office Visit Family Medicine [address] [phone] Wen Cardoza MD [address] [place] [address] [place] [phone] 02/05/2025 8:20 AM EDT Office Visit Family [address] [place] [phone] Wen Cardoza MD [address] [place] [address] [place] [phone] Health Maintenance Due Date Last Done Comments DISCUSS TOBACCO CESSATION (REFER TO SMARTSET #0632) 1955 Pneumococcal Vaccine: 65+ Years (1 of [...] Wellness Visit 2023 COVID-19 Vaccine (2 - season) 2024 11/11/2020 Influenza Vaccine (FLU shot) (#1) 2024 HbA1c 02/04/2025 08/07/2024, 07/28/2023 Albumin/Creatinine Ratio 08/07/2025 08/07/2024 GFR 09/27/2025 09/27/2024, 05/2024, 09/20/2024, Additional history exists Colonoscopy 09/24/2027 [...] filedocumented as of this encounter Care Teams Crimper Operator Relationship Specialty Start Date End Date Wen Cardoza MD [address] [place] [address] [place] [phone] PCP - General Family Medicine 10/16/24 documented as of this encounter
--- OUTSIDE RECORDS SUMMARY | 2024-10-18 23:01 | External Medical Summary | Summary of Care ---
Author Name Unknown Organization [facility] Address [address] [place] [address] Phone [phone] Care Team Providers Care Order Processing Manager Name Role Phone Wen Cardoza MD Primary Care Pr ovider Reason for Referral * Evaluate & Treat - Unlimited Visits (Within 10 days (routine)) - Authorized Specialty Diagnoses / Procedures Referred By Julián loredo Referred To Contact Orthopaedic Surgery / Orthopedics Diagnoses Closed fracture of left upper extremity with routine healing, subsequent encounter Wen Cardoza MD [address] [place] [address] [place] [phone] Phone: tel: fax: Referral ID Status Reason Start Date Expiration Date Visits Requested Visits Authorized [id number] Authorized Specialty Services Required 10/16/[phone] Question Answer Referral Priority Within 10 days (routine) Where should this appointment be scheduled? [facility] What body part is the patient being seen for? Arm/Elbow What condition is the patient being seen for? Fracture including related infection - admitted to [facility] Reason for Visit * Reason Comments Hospital Follow-Up Encounter Details Date Type Department Care Team (Late st Contact Info) Description 10/16/2024 9:20 AM EST Office Visit Family Medicine [address] [place] [address] Wen Cardoza MD [address] [place] [address] [place] [phone] Closed fracture of left [...] 210 Capsule 2 10/16/20 24 Active Nystatin 329029 UNIT/GM External Ointment Apply topically to affected area 2 times a day. To affacted area for two weeks. 15 g 2 10/16/20 24 Active Nystatin 100787 UNIT/GM External Powder (Nystop) Apply topically to [...] night 11/04/20 22 2023 Discontinued(R efill) Creon 52508-42347 UNIT Oral Capsule Delayed Release Particles (Pancrelipase (Buf-Byqd-Zdfd )) One capsule three times a day 90 Capsule 5 12/20/19 24 2023 Discontinued Nystatin 922882 UNIT/GM External CreamIndicatio ns:Cutaneous candidiasis Apply topically [...] tis 06/16/2023 History of pulmonary embolism 06/16/2023 care home current use of anticoagulant therapy 0 06/16/2023 [...] mRNA, LNP-s, No Pre serve, 2-Dose Series (Outski) 11/11/2020 PPD 04/14/2022,04/21/2021 documented as of this [...] Notes * Wen Cardoza MD - 10/16/2024 9:47 AM EST Received hospital records after patient encounter, reviewed. Admitted 09/09, discharged 09/19. Had aL distal humeral transcondylar fracture. Got significantly somnolent with norco and her home klonopin. Was to follow up with Ortho within 1 week of hospital discharge * Wen Cardoza MD - 10/16/2024 8:32 AM EST Images from the original note were not included. History of Present Illness Tierra Gil is a 69 year old female that presents for Hospital Follow-Up. Here with daughter Had several falls at home. Fell in the living room and had to call loom changer. Fell again when she got upto go to the bathroom from bed. Couldn't use her arm after that so went to the hospital 2 days later. Was in [facility] 2 weeks and then [facility]. Discharged 10/02. Saw Ortho in the hospital, but not yet as an outpatient. Had labs from 09/27 from [facility]. Is on xarelto, avoids NSAIDs. Tramadol 7 days recent (10/03). Is on klonopin BID every day. Gets home health through [facility]. Does have home PT and OT. [...] patient hasn't seen Ortho since d/c from [facility]). Has home nursing, PT and OT, to [...] goal of less than 8.0% ([facility]) On metformin, sugars controlled per daughter. Irritable [...] feel at end of August was in [facility] and d/c a to [facility] and d/c from there in October 02 to home. Here to get referral to [facility], fractured her humerus and has been in soft cast for 5 weeks. Wants DME for diapers and chucks pads, has currently but want quantity increased. Gets other DME supplys through [facility] documented in this encounter Plan of Treatment Upcoming Encounters Date Type Department Care Team (Late st Contact Info) Description 10/25/2024 8:00 AM EST Office Visit Orthopaedics [facility] [address] [place] [address] Randa Jaramillo MD [address] [place] [phone] 11/27/2024 8:00 AM EST Office Visit Family Medicine [address] [phone] Wen Cardoza MD [address] [place] [address] [place] [phone] 02/05/2025 8:20 AM EDT Office Visit Family [address] [phone] Wen Cardoza MD [address] [place] [address] [place] [phone] Pending Results Name Type Priority Associated Diagnoses [...] Comments DISCUSS TOBACCO CESSATION (REFER TO SMARTSET #5658) 1955 Pneumococcal Vaccine: 65+ Years (1 of [...] Albumin/Creatinine Ratio 08/07/2025 08/07/2024 GFR 09/27/2025 09/27/2024, 11/05/2024, 09/20/2024, Additional history exists Colonoscopy 09/24/2027 09/24/2017 [...] syndrome documented in this encounter Care Teams Order Processing Manager Relationship Specialty Start Date End Date Wen Cardoza MD [address] [place] [address] [place] [phone] PCP - General Family Medicine 10/16/24 documented as of this encounter"
--- OUTSIDE RECORDS SUMMARY | 2024-10-18 23:01 | External Medical Summary | Summary of Care ---
Author Name Unknown Organization [facility] Address [address] [place] [address] Phone [phone] Care Team Providers Care Assembler Name Role Phone Wen Cardoza MD Primary Care Pr ovider Reason for Referral * Evaluate & Treat - Unlimited Visits (Within 10 days (routine)) - Authorized Specialty Diagnoses / Procedures Referred By Julián loredo Referred To Contact Orthopaedic Surgery / Orthopedics Diagnoses Closed fracture of left upper extremity with routine healing, subsequent encounter Wen Carodza MD [address] [place] [address] [place] [phone] Phone: tel: fax: Referral ID Status Reason Start Date Expiration Date Visits Requested Visits Authorized [id number] Authorized Specialty Services Required 10/16/[phone] Question Answer Referral Priority Within 10 days (routine) Where should this appointment be scheduled? [facility] What body part is the patient being seen for? Arm/Elbow What condition is the patient being seen for? Fracture including related infection - admitted [facility] Reason for Visit * Reason Comments Hospital Follow-Up Encounter Details Date Type Department Care Team (Late st Contact Info) Description 10/16/2024 9:20 AM EST Office Visit Family Medicine [address] [place] [address] Wen Cardoza MD [address] [place] [address] [place] [phone] Closed fracture of left [...] 210 Capsule 2 10/16/20 24 Active Nystatin 038553 UNIT/GM External Ointment Apply topically to affected area 2 times a day. To affacted area for two weeks. 15 g 2 10/16/20 24 Active Nystatin 320233 UNIT/GM External Powder (Nystop) Apply topically to [...] night 11/04/20 22 2023 Discontinued(R efill) Creon 38294-[address]65 UNIT Oral Capsule Delayed Release Particles (Pancrelipase (Rcj-Cjuc-Acmu )) One capsule three times a day 90 Capsule 5 12/20/19 24 2023 Discontinued Nystatin 582504 UNIT/GM External CreamIndicatio ns:Cutaneous candidiasis Apply topically [...] mRNA, LNP-s, No Pre serve, 2-Dose Series (gogamingo) 11/11/2020 PPD 04/14/2022,04/21/2021 documented as of this [...] the living room and had to call hosiery knitter. Fell again when she got upto go to the bathroom from bed. Couldn't use her arm after that so went to the hospital 2 days later. Was in [facility] 2 weeks and then [facility]. Discharged 10/02. Saw Ortho in the hospital, but not yet as an outpatient. Had labs from 09/27 from [facility]. Is on xarelto, avoids NSAIDs. Tramadol 7 days recent (10/03). Is on klonopin BID every day. Gets home health through [facility]. Does have home PT and OT. Typically [...] patient hasn't seen Ortho since d/c from [facility]). Has home nursing, PT and OT, to [...] hemoglobin A1c goal of less than 8.0% ([facility]) On metformin, sugars controlled per daughter. Irritable [...] feel at end of August was [facility] and d/c a to [facility] and [...] 10/25/2024 8:00 AM EST Office Visit Orthopaedics [facility] [address] [place] [address] Randa Jaramillo MD [address] [place] [address] 11/27/2024 8:00 AM EST Office Visit Family Medicine [address] [phone] Wen Cardoza MD [address] [place] [address] [place] [phone] 02/05/2025 8:20 AM EDT Office Visit Family [address] [address] Wen Cardoza MD [address] [place] [address] [place] [phone] Pending Results Name Type Priority Associated Diagnoses [...] Comments DISCUSS TOBACCO CESSATION (REFER TO SMARTSET #7187) 1955 Pneumococcal Vaccine: 65+ Years (1 of [...] syndrome documented in this encounter Care Teams Assembler Relationship Specialty Start Date End Date Wen Cardoza MD [address] [place] [address] [place] [phone] PCP - General Family Medicine 10/16/24 documented as of this encounter"
--- OUTSIDE RECORDS SUMMARY | 2024-10-18 23:02 | External Medical Summary ---
Author Name Unknown Address Unknown Organization [facility] [address] [place] [address] Laboratory Report Ordering Provider Test Date Status FRED ANGEL 09/27/2024 05:39:26 Final Observation Date Value Abnormality Reference (Units ) Status WBC, Total 09/27/2024 05:39:26 4.89 4.00-10.8 0 (K/uL) Final RBC 09/27/2024 05:39:26 3.69 3.85-5.15 (M/uL) Final Hemoglobin 09/27/2024 05:39:26 10.7 Below low normal 12 .0-15.3 (g/dL) Final HCT 09/27/2024 05:39:26 33.1 Below low normal 36. 0-45.2 (%) Final MCV 09/27/2024 05:39:26 89.7 81.5-97.5 (fL) Final MCH 09/27/2024 05:39:26 29.0 27.0-34.0 (pg) Final MCHC 09/27/2024 05:39:26 32.3 32.0-36.0 (g/dL) Final RDW 09/27/2024 05:39:26 20.8 11.5-15.5 (%) Final Platelets 09/27/2024 05:39:26 261 140-400 (K /uL) Final MPV 09/27/2024 05:39:26 9.3 6.6-11.1 ( fL) Final Performing Location [facility] [address] [place] [address]
--- OUTSIDE RECORDS SUMMARY | 2024-10-18 23:02 | External Medical Summary ---
Author Name Unknown Address Unknown Organization [facility] [place] [address] Laboratory Report Ordering Provider Test Date Status FRED ANGEL 09/27/2024 05:39:26 Final Observation Date Value Abnormality Reference (Units ) Status BUN 09/27/2024 05:39:26 10 6-20 (mg/dL) Final Creatinine 09/27/2024 05:39:26 0.7 0.5-1.0 (mg/dL) Final Glomerular filtration rate/1.73 sq M.predicted [Volume Rate/Area] in Serum, Plasma or Blood by Creatinine-based formula (CKD-EPI) 09/27/2024 05:39:26 >90 >=60 (mL/min) Final eGFR is calculated based on the CKD-EPI 2020 equation. Sodium 09/27/2024 05:39:26 137 135-146 (m mol/L) Final Potassium 09/27/2024 05:39:26 4.4 3.5-5.1 (m mol/L) Final Cl 09/27/2024 05:39:26 100 98-107 (mm ol/L) Final CO2 09/27/2024 05:39:26 25 22-32 (mmo l/L) Final Anion gap 09/27/2024 05:39:26 12 7-15 (mmol /L) Final Glucose 09/27/2024 05:39:26 105 70-120 (mg /dL) Final Calcium 09/27/2024 05:39:26 9.7 8.4-10.2 ( mg/dL) Final Performing Location [facility] [place] [address]
--- OUTSIDE RECORDS SUMMARY | 2024-10-18 23:02 | External Medical Summary ---
Author Name Unknown Address Unknown Organization [facility] [place] [address] Laboratory Report Ordering Provider Test Date Status ROMARIO ARAIZA 09/21/2024 07:06:06 Final Observation Date Value Abnormality Reference (Units ) Status BUN 09/21/2024 07:06:06 20 6-20 (mg/dL) Final Creatinine 09/21/2024 07:06:06 0.7 0.5-1.0 (mg/dL) Final Glomerular filtration rate/1.73 sq M.predicted [Volume Rate/Area] in Serum, Plasma or Blood by Creatinine-based formula (CKD-EPI) 09/21/2024 07:06:06 >90 >=60 (mL/min) Final eGFR is calculated based on the CKD-EPI 2020 equation. Sodium 09/21/2024 07:06:06 135 135-146 (m mol/L) Final Potassium 09/21/2024 07:06:06 4.8 3.5-5.1 (m mol/L) Final Cl 09/21/2024 07:06:06 100 98-107 (mm ol/L) Final CO2 09/21/2024 07:06:06 25 22-32 (mmo l/L) Final Anion gap 09/21/2024 07:06:06 10 7-15 (mmol /L) Final Glucose 09/21/2024 07:06:06 129 Above high normal 70 -120 (mg/dL) Final Calcium 09/21/2024 07:06:06 9.7 8.4-10.2 ( mg/dL) Final Performing Location [facility] [place] [address]
--- OUTSIDE RECORDS SUMMARY | 2024-10-18 23:02 | External Medical Summary | Summary of Care ---
Author Name Unknown Organization [facility] Address [address] [place] [address] Phone [phone] Care Team Providers Care Bun Icer Name Role Phone Nat Lopez PA-C Primary Care Provider [phone] Reason for Visit * Reason Onset Date Comments Medication Refill 10/13/2024 Encounter Details Date Type Department Care Team (Late st Contact Info) Description 10/13/2024 Refill Family Medicine [address] [phone] Nat Lopez PA-C [address] [place] [address] [place] [address] Gastroesophageal reflux disease without esophagitis Allergies Active Allergy Reactions Criticality Noted Date Comments Bee Venom Unknown High 02/11/2023 Other Reaction(s): Anaphylaxis Egg Solids, Whole High 08/22/2022 Other Reaction(s): Vomiting Penicillins 08/07/2005 vomiting and itchy documented as of this encounter (statuses as of 10/13/2024) Medications Loratadine 10 MG Oral Tablet Take 1 Tablet by mouth in the morning. 30 Tablet 11 2 Active Divalproex Sodium 500 MG Oral Tablet Delayed Release (Candelario ROLLINS) 3 tabs at bedtime 2 Active Escitalopram Oxalate 20 MG Oral Tablet (Lexapro) Take 1 Tablet by mouth in the morning. 2 Active Ferrous Sulfate 325 (65 Fe) MG Oral Tablet (Feosol) Take 1 Tablet by mouth in the morning and 1 Tablet before bedtime. 60 Tablet 11 2 Active Gabapentin 100 MG Oral Capsule (Neurontin) 1 in am, 1 at noon and 2 at night 2 Active Cholestyramine 4 GM/DOSE Oral PowderIndication s:Irritable bowel syndrome DISSOLVE ONE AND ONE-HALF scoops into EIGHT ounces of JUICE OR water EVERY DAY 378 g 5 3 Active Creon 11286-05728 UNIT Oral Capsule Delayed Release Particles (Pancrelipase (Cyv-Zpjw-Ikaa)) One capsule three times a day 90 Capsule 5 4 Active QUEtiapine Fumarate 200 MG Oral Tablet (SEROquel) Take 1 Tablet by mouth at bedtime. 4 Active clonazePAM 0.5 MG Oral Tablet (KlonoPIN) Take 1 Tablet by mouth 2 times a day as needed for Anxiety. 4 Active Xarelto 20 MG Oral Tablet (Rivaroxaban) TAKE ONE TABLET EVERY DAY 90 Tablet 5 4 Active Pantoprazole Sodium 40 MG Oral Tablet Delayed Release (Protonix)Indica tions:Gastroesop hageal reflux disease without esophagitis TAKE ONE TABLET IN THE MORNING 90 Tablet 1 4 Active Bath/Shower SeatIndications: Type 2 diabetes mellitus with hemoglobin A1c goal of less than 8.0% ([facility]) Use as directed 1 Each 4 Active Nystatin 886485 UNIT/GM External CreamIndications :Cutaneous candidiasis Apply topically to affected area 2 times a day. To affacted area for two weeks. 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 0 06/16/2023 Overview (06/16/2023): Xarelto IBS (irritable bowel syndrome) 06/16/2023 Wheelchair dependence 06/06/2020 Hyperlipidemia 08/23/2019 Vitamin D deficiency 08/23/2019 Degeneration of intervertebral disc of lumbar re gion 10/10/2012 Hypothyroidism 06/28/2012 Other specified types of schizophrenia, chronic condition 08/07/2005 Panic disorder 08/07/2005 Peptic ulcer 08/07/2005 documented as of this encounter (statuses as of 10/13/2024) Immunizations Name Administration Dates Next Due COVID-19 mRNA, LNP-s, No Pre serve, 2-Dose Series (theBench) 11/11/2020 PPD 04/14/2022,04/21/2021 documented as of this encounter Social History Tobacco Use Types Packs/Day Years Used Date Smoking Tobacco: Every Day Cigarettes 1 55 Started: 1967 Smokeless Tobacco: Never Alcohol Use Standard Drinks/Week Comments No 0 (1 standard drink = 0.6 oz pur e alcohol) Utilities Answer Date Recorded Do you have trouble paying y our heating, water, or electric bill? (Adult - for ages 18 years and over) Not on file 05/02/2024 Is your family able to pay t he heat, water, or electric bill? (Household - for ages 0-17 years) Not on file 05/02/2024 Does your family have access to good internet? (Household - for ages 0-17 years) Not on file 05/02/2024 Social Connections Answer Date Recorded How often do you feel lonely or isolated from those around you? (Adult - for ages 18 years and over) Not on file 05/02/2024 Comments No Sex and Gender Information Value Date Recorded Sex Assigned at Not on file Legal Sex Female 5:50 AM EST Gender Identity Not on file Sexual Orientation Not on file Occupation Industry Job Start Date Job End Date On SSI and SSD Not on file Not on file Not on file documented as of this encounter Miscellaneous Notes * Telephone Encounter - Amie Morales CPhT - 10/13/2024 10:41 AM EST Pt calling to request Pantoprazole Sodium 40 MG Oral Tablet Delayed Release (Protonix) . Informed pt that RX is available at their pharmacy. Pt verbalized understanding and stated they will check with their pharmacy regarding this medication. Thank you, Purnima Morales CPhT Supervisor [facility] 10/13/2024,10:46 AM documented in this encounter Plan of Treatment Upcoming Encounters Date Type Department Care Team (Late st Contact Info) Description 10/16/2024 9:20 AM EST Office Visit [address] [phone] Wen Cardoza MD [address] [place] [address] [place] [phone] 02/05/2025 8:20 AM EDT Office Visit [address] [phone] Wen Cardoza MD [address] [place] [address] [place] [phone] Health Maintenance Due Date Last Done Comments DISCUSS TOBACCO CESSATION (REFER TO SMARTSET #6760) 1955 Pneumococcal Vaccine: 65+ Years (1 of [...] Albumin/Creatinine Ratio 08/07/2025 08/07/2024 GFR 09/27/2025 09/27/2024, 1105/2024, 09/20/2024, Additional history exists Colonoscopy 09/24/2027 09/24/2017 [...] as of this encounter Visit Diagnoses Diagnosis Gastroesophageal reflux disease without esophagitis Esophageal reflux documented in this encounter Care Teams Bun Icer Relationship Specialty Start Date End Date Nat Lopez PA-C [address] [place] [address] [place] [phone] PCP - General Physician Branch Service Representative 10/03/24 documented as of this encounter
--- OUTSIDE RECORDS SUMMARY | 2024-10-18 23:02 | External Medical Summary | Summary of Care ---
Author Name Unknown Organization [facility] Address [address] [facility] [place] [address] Phone [phone] Care Team Providers Care [place] Stayer Machine Operator Name Role Phone Unavailable Primary Care Provider Unavailabl e Reason for Visit * Reason Onset Date Comments Test Results 08/08/2024 Encounter Details Date Type Department Care Team (Late st Contact Info) Description 08/08/2024 Telephone Family Medicine [address] [place] [phone] Nat Lopez PA-C [address] [place] [address] [place] [address] Test Results Allergies Active Allergy Reactions Criticality Noted Date Comments Penicillins 08/07/2005 vomiting and itchy documented as of this encounter (statuses as of 09/27/2024) Medications Loratadine 10 MG Oral Tablet Take 1 Tablet by mouth in the morning. 30 Tablet 11 11/04/20 Active Divalproex Sodium 500 MG Oral Tablet Delayed Release (Depakote DR) 3 tabs at bedtime 11/04/20 Active Escitalopram Oxalate 20 MG Oral Tablet (Lexapro) Take 1 Tablet by mouth in the morning. 11/04/20 Active Ferrous Sulfate 325 (65 Fe) MG Oral Tablet (Feosol) Take 1 Tablet by mouth in the morning and 1 Tablet before bedtime. 60 Tablet 11 11/04/20 Active Gabapentin 100 MG Oral Capsule (Neurontin) 1 in am, 1 at noon and 2 at night 11/04/20 Active Cholestyramine 4 GM/DOSE Oral PowderIndicatio ns:Irritable bowel syndrome DISSOLVE ONE AND ONE-HALF scoops into EIGHT ounces of JUICE OR water EVERY DAY 378 g 5 11/05/20 23 Active Creon 50334-72248 UNIT Oral Capsule Delayed Release Particles (Pancrelipase (Cjf-Imsc-Lclr) ) One capsule three times a day 90 Capsule 5 12/20/19 24 Active QUEtiapine Fumarate 200 MG Oral Tablet (SEROquel) Take 1 Tablet by mouth at bedtime. 01/31/20 Active clonazePAM 0.5 MG Oral Tablet (KlonoPIN) [...] IN THE MORNING 90 Tablet 1 07/06/20 Active Bath/Shower SeatIndications :Type 2 diabetes mellitus with hemoglobin A1c goal of less than 8.0% ([facility]) Use as directed 1 Each 08/07/20 Active Nystatin 593248 UNIT/GM External CreamIndication s:Cutaneous candidiasis Apply topically to affected area 2 times a day. To affacted area for two weeks. 30 g 2 08/07/20 24 Active Cholestyramine 4 GM/DOSE Oral PowderIndicatio ns:Irritable bowel syndrome DISSOLVE ONE AND ONE-HALF scoops into EIGHT ounces of JUICE OR water EVERY DAY 378 g 1 07/07/20 24 Discontinued metFORMIN HCl ER 500 MG Oral Tablet Extended Release 24 Hour (Glucophage XR) TAKE ONE TABLET TWICE DAILY 60 Tablet 08/02/20 24 Discontinued Sulfamethoxazol e-Trimethoprim 800-160 MG Oral Tablet (Bactrim DS)Indications: Dysuria Take 1 Tablet by mouth in the morning and 1 Tablet before bedtime. Do all this for 7 days. Until gone. 14 Tablet 08/07/20 24 Ferrous Sulfate 325 (65 Fe) MG Oral Tablet (Feosol)Indicat ions:Iron deficiency anemia, unspecified iron deficiency anemia type Take 1 Tablet by mouth in the morning and 1 Tablet before bedtime. 60 Tablet 11 08/08/20 024 Discontinued documented as of this encounter (statuses as of 09/27/2024) Active Problems Problem Noted Date Diagnosed Date Female stress incontinence 05/31/2024 Body mass index (BMI) of 45.0 to 49.9 in adult 1 Overview: Per Obesity protocol Type 2 diabetes mellitus wit h hemoglobin A1c goal of less than 8.0% 06/16/2023 Schizoaffective disorder 06/16/2023 Tobacco use disorder 06/16/2023 Gastroesophageal reflux disease without esophagi tis 06/16/2023 History of pulmonary embolism 06/16/2023 FPC current use of anticoagulant therapy 0 06/16/2023 Overview (06/16/2023): Xarelto IBS (irritable bowel syndrome) 06/16/2023 Other specified types of schizophrenia, chronic condition 08/07/2005 Panic disorder 08/07/2005 Peptic ulcer 08/07/2005 documented as of this encounter (statuses as of 09/27/2024) Social History Tobacco Use Types Packs/Day Years [...] encounter Miscellaneous Notes * Telephone Encounter - Brittany Mcleod CMA - 08/11/2024 2:56 PM EDT Returned daughters call. Left message on her cell phone to call [phone]. Transfer to nurse line. * Telephone Encounter - Swati Dc OSA - 08/11/2024 11:43 AM EDT Pt daughter called to discuss test results. Please call [phone] * Telephone Encounter - Rena Broussard RN - 08/08/2024 4:27 PM EDT Message left on voice mail to return call * Telephone Encounter - Nat Lopez PA-C - 08/08/2024 7:57 AM EDT Please call pt. Her blood count and iron are low. Is she having any abdominal pain? Bloody or blackstools? May need to get colonoscopy/EGD. Make sure she is taking her ferrous sulfate. Repeat labs in 4 weeks. Her protein is also low. She can try drinking ensure or boost to help with this. documented in this encounter Plan of Treatment Upcoming Encounters Date Type Department Care Team (Late st Contact Info) Description 02/05/2025 8:20 AM EDT Office Visit Family Medicine [address] [place] [phone] Wen Cardoza MD [address] [place] [address] [place] [phone] Health Maintenance Due Date Last Done Comments DISCUSS TOBACCO CESSATION (REFER TO SMARTSET #6076) 1957 Pneumococcal Vaccine: 65+ Years (1 of 2 - PCV) 1963 Depression Screening 1969 Diabetic Eye Exam 1975 Diabetic Foot Exam 1975 Hepatitis C Screening 1975 DTap/Tdap Vaccines (1 - Tdap) 1976 Mammogram 1997 Cologuard 2002 Sigmoidoscopy 2002 Lung Cancer Screening 2007 Zoster Vaccines (1 of 2) 2007 Fecal Occult Blood Test 01/05/2018 01/05/2017 DXA Scan 2022 COVID-19 Vaccine (2 - season) 2024 11/11/2020 Influenza Vaccine (FLU shot) (#1) 2024 HbA1c 02/04/2025 08/07/2024, 07/28/2023 Albumin/Creatinine Ratio 08/07/2025 08/07/2024 GFR 09/21/2025 09/27/2024, 11/0 05/2024, 09/20/2024, Additional history exists [...] as of this encounter Visit Diagnoses Diagnosis Iron deficiency anemia, unspecified iron deficiency anemia type- Primary documented in this encounter
--- OUTSIDE RECORDS SUMMARY | 2024-10-18 23:03 | External Medical Summary ---
Author Name Unknown Address Unknown Organization K09:[facility] [place] [address] Laboratory Report Ordering Provider Test Date Status FRED ANGEL 09/20/2024 06:22:59 Final Observation Date Value Abnormality Reference (Units ) Status BUN 09/20/2024 06:22:59 21 Above high normal 6-20 (mg/dL) Final Creatinine 09/20/2024 06:22:59 0.7 0.5-1.0 (mg/dL) Final Glomerular filtration rate/1.73 sq M.predicted [Volume Rate/Area] in Serum, Plasma or Blood by Creatinine-based formula (CKD-EPI) 09/20/2024 06:22:59 >90 >=60 (mL/min) Final eGFR is calculated based on the CKD-EPI 2020 equation. Sodium 09/20/2024 06:22:59 136 135-146 (m mol/L) Final Potassium 09/20/2024 06:22:59 5.2 Above high normal 3. 5-5.1 (mmol/L) Final Cl 09/20/2024 06:22:59 98 98-107 (mm ol/L) Final CO2 09/20/2024 06:22:59 24 22-32 (mmo l/L) Final Anion gap 09/20/2024 06:22:59 14 7-15 (mmol /L) Final Glucose 09/20/2024 06:22:59 166 Above high normal 70 -120 (mg/dL) Final Calcium 09/20/2024 06:22:59 10.1 8.4-10.2 ( mg/dL) Final Performing Location [facility] [place] [address]
--- OUTSIDE RECORDS SUMMARY | 2024-10-18 23:03 | External Medical Summary | Summary of Care ---
Author Name Unknown Organization [facility] Address [address] [place] [address] Phone [phone] Care Team Providers Care Supervisor [employer] Deliveries Name Role Phone Unavailable Primary Care Provider Unavailabl e Reason for Visit * Reason Comments eRx-Medication Refill Encounter Details Date Type Department Care Team (Late st Contact Info) Description 08/25/2024 Refill Family Medicine [address] [place] [phone] Yemi Zhang PA-C [address] [place] [address] [place] [address] Allergies Active Allergy Reactions Criticality Noted Date Comments Penicillins 08/07/2005 vomiting and itchy documented as of this encounter (statuses as of 08/28/2024) Medications Medication Sig Dispensed Refills Start Date End Date Status Loratadine 10 MG Oral Tablet Take 1 Tablet by mouth in the morning. 30 Tablet 11 11/04/2022 Active Divalproex Sodium 500 MG Oral Tablet Delayed Release (Depakote ) 3 tabs at bedtime 11/04/2022 Active Escitalopram Oxalate 20 MG Oral Tablet (Lexapro) Take 1 Tablet by mouth in the morning. 11/04/2022 Active Ferrous Sulfate 325 (65 Fe) MG Oral Tablet (Feosol) Take 1 Tablet by mouth in the morning and 1 Tablet before bedtime. 60 Tablet 11 11/04/2022 Active Gabapentin 100 MG Oral Capsule (Neurontin) 1 in am, 1 at noon and 2 at night 11/04/2022 Active Cholestyramine 4 GM/DOSE Oral PowderIndications :Irritable bowel syndrome DISSOLVE ONE AND ONE-HALF scoops into EIGHT ounces of JUICE OR water EVERY DAY 378 g 5 11/05/2023 Active Creon 32864-20419 UNIT Oral Capsule Delayed Release Particles (Pancrelipase (Vfn-Tqgh-Zpmi)) One capsule three times a day 90 Capsule 5 12/20/2023 Active QUEtiapine Fumarate 200 MG Oral Tablet (SEROquel) Take 1 Tablet by mouth at bedtime. 01/31/2024 Active clonazePAM 0.5 MG Oral Tablet (KlonoPIN) Take 1 Tablet by mouth 2 times a day as needed for Anxiety. 01/31/2024 Active Xarelto 20 MG Oral Tablet (Rivaroxaban) TAKE ONE TABLET EVERY DAY 90 Tablet 5 04/13/2024 Active Cholestyramine 4 GM/DOSE Oral PowderIndications :Irritable bowel syndrome DISSOLVE ONE AND ONE-HALF scoops into EIGHT ounces of JUICE OR water EVERY DAY 378 g 1 07/07/2024 Active Pantoprazole Sodium 40 MG Oral Tablet Delayed Release (Protonix)Indicat ions:Gastroesopha geal reflux disease without esophagitis TAKE ONE TABLET IN THE MORNING 90 Tablet 1 07/06/2024 Active Bath/Shower SeatIndications:T ype 2 diabetes mellitus with hemoglobin A1c goal of less than 8.0% ([facility]) Use as directed 1 Each 08/07/2024 Active Nystatin [id number] UNIT/GM External CreamIndications: Cutaneous candidiasis Apply topically to affected area 2 times a day. To affacted area for two weeks. 30 g 2 08/07/2024 Active metFORMIN HCl ER 500 MG Oral Tablet Extended Release 24 Hour (Glucophage XR) TAKE ONE TABLET TWICE DAILY 180 Tablet 2 08/28/2024 Active metFORMIN HCl ER 500 MG Oral Tablet Extended Release 24 Hour (Glucophage XR) TAKE ONE TABLET TWICE DAILY 60 Tablet 08/02/2024 4 Discontinued documented as of this encounter (statuses as of 08/28/2024) Active Problems Problem Noted Date Diagnosed Date Female stress incontinence 05/31/2024 Body mass index (BMI) of 45.0 to 49.9 in adult 1 Overview: Per Obesity protocol Type 2 diabetes mellitus wit h hemoglobin A1c goal of less than 8.0% 06/16/2023 Schizoaffective disorder 06/16/2023 Tobacco use disorder 06/16/2023 Gastroesophageal reflux disease without esophagi tis 06/16/2023 History of pulmonary embolism 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 0 06/16/2023 Overview: Xaquocto IBS (irritable bowel syndrome) 06/16/2023 Other specified types of schizophrenia, chronic condition 08/07/2005 Panic disorder 08/07/2005 Peptic ulcer 08/07/2005 documented as of this encounter (statuses as of 08/28/2024) Social History Tobacco Use Types Packs/Day Years Used Date Smoking Tobacco: Every Day Cigarettes 1 54.9 Started: 1969 Smokeless Tobacco: Never Alcohol Use [...] years and over) Not on file 05/02/2024 Sex and Gender Information Value Date Recorded Sex Assigned at Not on file Gender Identity Not on file Sexual Orientation Not on file Job Start Date Occupation Industry Not on file Not on file Not on file documented as of this encounter Miscellaneous Notes * Telephone Encounter - Yemi Zhang PA-C - 08/28/2024 2:59 PM EDTSigned Prescriptions: Disp Refills metFORMIN HCl ER 500 MG Oral Tablet Extend*180 Ta*2 Sig: TAKE ONE TABLET TWICE DAILY Authorizing Provider: YEMI ZHANG * Telephone Encounter - Rena Broussard RN - 08/28/2024 11:13 AM EDTPending Prescriptions: Disp Refills metFORMIN HCl ER 500 MG Oral Tablet Extend*180 Ta*2 Sig: TAKE ONE TABLET TWICE DAILY * Telephone Encounter - Rivera Castellanos, [facility] - 08/28/2024 11:03 AM EDT Pending Prescriptions: Disp Refills metFORMIN HCl ER 500 MG Oral Tablet Extend*60 Tab*0 Sig: TAKE ONE TABLET TWICE DAILY * Telephone Encounter - Rivera Castellanos [facility] - 08/28/2024 10:58 AM EDT Patient has no PCP under whom to authorize refills. Please approve if appropriate. Thank You, Rivera Castellanos, Pharm-D Clinical Pharmacist [facility] [phone] 08/28/2024, 10:58 AM Did you pend patient's preferred pharmacy and medication before forwarding?yes Pharmacy: [facility], [address] [place] Pending Prescriptions: Disp Refills metFORMIN HCl ER 500 MG Oral Tablet Exten*60 Tab*0 Sig: TAKE ONE TABLET TWICE DAILY Last Visit: 08/07/2024 (in office), Visit date not found (telemedicine) Next Visit: 02/05/2025 If no future appointments scheduled, and last appointment is greater than a year ago, please schedule patient for a follow-up appointment Last date the medication was ordered: 08/02/2024 Is this request for a controlled substance?No Urine Drug Screen:No results found for this or any previous visit. Patient Phone Numbers Labs: Lab Results Component Value Date/Time CREAT 0.7 08/07/2024 08:54 AM CREAT 1.2 08/07/2005 03:51 PM POTASSIUM 4.8 08/07/2024 08:54 AM POTASSIUM 4.2 08/07/2005 03:51 PM TSH 1.64 08/07/2005 03:51 PM LDL 54 08/07/2024 08:54 AM ALT <6 (L) 08/07/2024 08:54 AM ALT 21 08/07/2005 03:51 PM HGBA1C 5.5 08/07/2024 08:54 AM documented in this encounter Plan of Treatment Upcoming Encounters Date Type Department Care Team (Late st Contact Info) Description 02/05/2025 8:20 AM EDT Office Visit Family Medicine [address] [phone] Wen Cardoza MD [address] [place] [address] [place] [phone] Health Maintenance Due Date Last Done Comments DISCUSS TOBACCO CESSATION (REFER TO SMARTSET #4380) 1957 Pneumococcal Vaccine: 65+ Years (1 of 2 - PCV) 1963 Depression Screening 1969 Diabetic Eye Exam 1975 Diabetic Foot Exam 1975 Hepatitis C Screening 1975 DTap/Tdap Vaccines (1 - Tdap) 1976 Mammogram 1997 Cologuard 2002 Sigmoidoscopy 2002 Lung Cancer Screening 2007 Zoster Vaccines (1 of 2) 2007 Fecal Occult Blood Test 01/05/2018 01/05/2017 DXA Scan 2022 COVID-19 Vaccine ( season) 2024 11/11/2020 Influenza Vaccine (FLU shot) (#1) 2024 HbA1c 02/04/2025 08/07/2024, 07/28/2023 Albumin/Creatinine Ratio 08/07/2025 08/07/2024 GFR 08/07/2025 08/07/2024, 07/16, 06/27/2023, Additional history exists Colonoscopy 09/24/2027 09/24/2017 Colorectal [...]
--- OUTSIDE RECORDS SUMMARY | 2024-10-18 23:03 | External Medical Summary | Summary of Care ---
Author Name Unknown Organization [facility] Address [address] [place] [address] Phone [phone] Care Team Providers Care Gravity Prospecting Operator Name Role Phone New Provider Wen Barragan Care Provider Reason for Visit * Reason Comments Re-Check Requesting orders fo r lift chair (recliner), shower chair, and wheeled walker asking for those to be sent to [facility]. Pt was seen at [facility] ER about a month ago for a fall and the doctor told her she looked anemic, wondering if labs should be checked. Encounter Details Date Type Department Care Team (Late st Contact Info) Description 08/07/2024 8:20 AM EDT Office Visit Family Medicine [address] [place] [phone] Nat Lopez PA-C [address] [place] [address] [place] [id number] Type 2 diabetes mellitus with hemoglobin A1c goal of less than 8.0% ([facility])*; Body mass index (BMI) of 45.0 to 49.9 in adult ([facility]); Schizoaffective disorder, unspecified type ([facility]); History of pulmonary embolism; Gastroesophageal reflux disease without esophagitis; Irritable bowel syndrome, unspecified type; Tobacco use disorder; Cutaneous candidiasis; Dysuria Allergies Active Allergy Reactions Criticality Noted Date Comments Penicillins 08/07/2005 vomiting and itchy documented as of this encounter (statuses as of 08/07/2024) Medications Medication Sig Dispensed Refills Start Date End Date Status Loratadine 10 MG Oral Tablet Take 1 Tablet by mouth in the morning. 30 Tablet 11 11/04/2022 Active Divalproex Sodium 500 MG Oral Tablet Delayed Release (Depakote DR) 3 tabs at bedtime 11/04/2022 Active Escitalopram [...] night 11/04/2022 Active Cholestyramine 4 GM/DOSE Oral PowderIndications:I rritable bowel syndrome DISSOLVE ONE AND ONE-HALF scoops into EIGHT ounces of JUICE OR water EVERY DAY 378 g 5 11/05/2023 Active Creon 09409-25651 UNIT Oral Capsule Delayed Release Particles (Pancrelipase (Rgp-Adof-Foyg)) One capsule three times a day 90 [...] 5 04/13/2024 Active Cholestyramine 4 GM/DOSE Oral PowderIndications:I rritable bowel syndrome DISSOLVE ONE AND ONE-HALF scoops into EIGHT ounces of JUICE OR water EVERY DAY 378 g 1 07/07/2024 Active Pantoprazole Sodium 40 MG Oral Tablet Delayed Release (Protonix)Indicatio ns:Gastroesophageal reflux disease without esophagitis TAKE ONE TABLET IN THE MORNING 90 Tablet 1 07/06/2024 Active metFORMIN HCl ER 500 MG Oral Tablet Extended Release 24 Hour (Glucophage XR) TAKE ONE TABLET TWICE DAILY 60 Tablet 08/02/2024 Active Bath/Shower SeatIndications:Typ e 2 diabetes mellitus with hemoglobin A1c goal of less than 8.0% ([facility]) Use as directed 1 Each 08/07/2024 Active Nystatin 137010 UNIT/GM External CreamIndications:Cu taneous candidiasis Apply topically to affected area 2 times a day. To affacted area for two weeks. 30 g 2 08/07/2024 Active Sulfamethoxazole-Tr imethoprim 800-160 MG Oral Tablet (Bactrim DS)Indications:Dysu olimpia Take 1 Tablet by mouth in the morning and 1 Tablet before bedtime. Do all this for 7 days. Until gone. 14 Tablet 08/07/2024 08/14/2024 Active documented as of this encounter (statuses as of 08/07/2024) Active Problems Problem Noted Date Diagnosed Date Female stress incontinence 05/31/2024 Body mass index (BMI) of 45.0 to 49.9 in adult 1 Overview: Per Obesity protocol Type 2 diabetes mellitus wit h hemoglobin A1c goal of less than 8.0% 06/16/2023 Schizoaffective disorder 06/16/2023 Tobacco use disorder 06/16/2023 Gastroesophageal reflux disease without esophagi tis 06/16/2023 History of pulmonary embolism 06/16/2023 long-term current use of anticoagulant therapy 0 06/16/2023 Overview: Xarelto IBS (irritable bowel syndrome) 06/16/2023 Other specified types of schizophrenia, chronic condition 08/07/2005 Panic disorder 08/07/2005 Peptic ulcer 08/07/2005 documented as of this encounter (statuses as of 08/07/2024) Social History Tobacco Use Types Packs/Day Years [...] Sign Reading Time Taken Comments Blood Pressure 118/62 08/07/2024 8:28 AM EDT Pulse 80 08/07/2024 8:28 AM EDT Temperature - - Respiratory Rate - - Oxygen Saturation 95% 08/07/2024 8:28 AM EDT Inhaled Oxygen Concentration - - Weight - - Height - - Body Mass Index - - documented in this encounter Progress Notes * Nat Lopez PA-C - 08/07/2024 8:29 AM EDT Chief Complaint Patient presents with Re-Check Requesting orders for lift chair (recliner), shower chair, and wheeled walker asking for those to be sent to [facility]. Pt was seen at [facility] ER about a month ago for a fall and the doctor told her she looked anemic, wondering if labs should be checked. Pt here today for recheck. Pt with PMH of allergies, depression/anxiety, schizophrenia, GERD, IBS, hx of PE. Pt does have a rash under each breast. She is a fall risk. She is weak and has pain in herlegs and back. She is due for labs. Review of patient's allergies indicates: Allergen Reactions Pcn [Penicillins] vomiting and itchy Current Outpatient Medications Medication Sig Dispense Refill Loratadine 10 MG Oral Tablet Take 1 Tablet by mouth in the morning. 30 Tablet 11 Ferrous Sulfate 325 (65 Fe) MG Oral Tablet (Feosol) Take 1 Tablet by mouth in the morning and 1 Tablet before bedtime. 60 Tablet 11 Gabapentin 100 MG Oral Capsule (Neurontin) 1 in am, 1 at noon and 2 at night QUEtiapine Fumarate 200 MG Oral Tablet (SEROquel) Take 1 Tablet by mouth at bedtime. Divalproex Sodium 500 MG Oral Tablet Delayed Release (Depakote DR) 3 tabs at bedtime Escitalopram Oxalate 20 MG Oral Tablet (Lexapro) Take 1 Tablet by mouth in the morning. Cholestyramine 4 GM/DOSE Oral Powder DISSOLVE ONE AND ONE-HALF scoops into EIGHT ounces of JUICE ORwater EVERY DAY 378 g 5 Creon 03251-13851 UNIT Oral Capsule Delayed Release Particles (Pancrelipase (Bsx-Vjqg-Oozy)) One capsule three times a day 90 Capsule 5 clonazePAM 0.5 MG Oral Tablet (KlonoPIN) Take 1 Tablet by mouth 2 times a day as needed for Anxiety. Xarelto 20 MG Oral Tablet (Rivaroxaban) TAKE ONE TABLET EVERY DAY 90 Tablet 5 Cholestyramine 4 GM/DOSE Oral Powder DISSOLVE ONE AND ONE-HALF scoops into EIGHT ounces of JUICE ORwater EVERY DAY 378 g 1 Pantoprazole Sodium 40 MG Oral Tablet Delayed Release (Protonix) TAKE ONE TABLET IN THE MORNING 90 Tablet 1 metFORMIN HCl ER 500 MG Oral Tablet Extended Release 24 Hour (Glucophage XR) TAKE ONE TABLET TWICE DAILY 60 Tablet 0 No current facility-administered medications for this visit. Past Medical History: Diagnosis Date Cystitis 07/10/2023 [facility] falls and confusion related to E coli cystitis DM type 2, goal HbA1c < 8% ([facility]) Other specified types of schizophrenia, chronic condition Panic disorder Peptic ulcer Social History Socioeconomic History Marital status: Spouse name: Not on file Number of children: 2 Years of education: Not on file Highest education level: Not on file Occupational History Occupation: On SSI and SSD Comment: long time Tobacco Use Smoking status: Every Day Current packs/day: 1.00 Average packs/day: 1 pack/day for 54.9 years (54.9 ttl pk-yrs) Types: Cigarettes Start date: 1969 Smokeless tobacco: Never Substance and Sexual Activity Alcohol use: No Drug use: Yes Comment: marijuanan 1 yr ago Sexual activity: Not on file Other Topics Concern Not on file Social History Narrative Not on file Social Determinants of Health Financial Resource Strain: Not on file Food Insecurity: Not on file Transportation Needs: Not on file Social Connections: Unknown (05/02/2024) Social Connections How often do you feel lonely or isolated from those around you? (Adult - for ages 18 years and over): Not on file Housing Stability: Not on file O:Blood pressure 118/62, pulse 80, SpO2 95%. GENERAL: alert, healthy, and no distress NECK: supple, no adenopathy, no bruits, thyroid normal size, non-tender, without nodularity EYES: PERRLA, conjunctiva are pink and non-injected, sclera clear EARS: External ears normal, Canals clear, TM's Normal NOSE: no mucosal erythema, no mucosal edema, no purulent discharge OROPHARYNX: no exudate, no erythema, lips, buccal mucosa, and tongue normal, and mucous membranes are moist HEART: regular rate & rhythm, no murmur, and no gallops LUNGS: chest symmetric with normal AP diameter, no chest deformities noted, no chest wall tenderness, lungs clear to auscultation EXTREMITIES: no joint deformities, effusion, or inflammation, no edema A:Type 2 diabetes mellitus with hemoglobin A1c goal of less than 8.0% ([facility]) (Primary) - DURABLE MEDICAL EQUIPMENT - Bath/Shower Seat; Use as directed - SEAT LIFT MECHANISM, ELECTRIC, ANY TYPE - HEMOGLOBIN A1C; Future; Expected date: 08/07/2024 - LIPID PANEL WITH DIRECT LDL IF TG IS HIGH; Future; Expected date: 08/07/2024 - COMPREHENSIVE METABOLIC PANEL; Future; Expected date: 08/07/2024 - ALBUMIN / CREATININE RATIO, URINE; Future; Expected date: 08/07/2024 Body mass index (BMI) of 45.0 to 49.9 in adult ([facility]) Schizoaffective disorder, unspecified type ([facility]) History of pulmonary embolism Gastroesophageal reflux disease without esophagitis Irritable bowel syndrome, unspecified type Tobacco use disorder Will check some labs. Pt is a fall risk and confined to wheelchair. Would benefit from shower chair, chair lift, wheeled walker. Follow Up: Return if symptoms worsen or fail to improve. Nat Lopez PA-C documented in this encounter Miscellaneous Notes * Addendum Note - Shell Pelaez LPN - 08/07/2024 12:12 PM EDTAddended by: SHELL PELAEZ on: 08/07/2024 12:12 PM Modules accepted: Orders documented in this encounter Plan of Treatment Upcoming Encounters Date Type Department Care Team (Late st Contact Info) Description 02/05/2025 8:20 AM EDT Office Visit [place] [facility] [id number] [facility] [place] [phone] New Provider [facility] Wen Lang [address] [place] [address] [place] [id number] Pending Results Name Type Priority Associated Diagnoses Date /Time HEMOGLOBIN A1C Lab Routine Type 2 diabetes mellitus with hemoglobin A1c goal of less than 8.0% ([facility]) 08/07/2024 8:54 AM EDT LIPID PANEL WITH DIRECT LDL IF TG IS HIGH Lab Routine Type 2 diabetes mellitus with hemoglobin A1c goal of less than 8.0% ([facility]) 08/07/2024 8:54 AM EDT COMPREHENSIVE METABOLIC PANEL Lab Routine Type 2 diabetes mellitus with hemoglobin A1c goal of less than 8.0% ([facility]) 08/07/2024 8:54 AM EDT ALBUMIN / CREATININE RATIO, URINE Lab Routine Type 2 diabetes mellitus with hemoglobin A1c goal of less than 8.0% ([facility]) 08/07/2024 8:54 AM EDT CBC WITH WBC DIFFERENTIAL AND ANEMIA REFLEX WORKUP Lab Routine Type 2 diabetes mellitus with hemoglobin A1c goal of less than 8.0% ([facility]) 08/07/2024 8:54 AM EDT Scheduled Orders Name Type Priority Associated Diagnoses Orde r Schedule HEMOGLOBIN A1C Lab Routine Type 2 diabetes mellitus with hemoglobin A1c goal of less than 8.0% ([facility]) Expected: 08/07/2024 (Approximate), Expires: 08/07/2025 LIPID PANEL WITH DIRECT LDL IF TG IS HIGH Lab Routine Type 2 diabetes mellitus with hemoglobin A1c goal of less than 8.0% ([facility]) Expected: 08/07/2024, Expires: 08/07/2025 COMPREHENSIVE METABOLIC PANEL Lab Routine Type 2 diabetes mellitus with hemoglobin A1c goal of less than 8.0% ([facility]) Expected: 08/07/2024 (Approximate), Expires: 08/07/2025 ALBUMIN / CREATININE RATIO, URINE Lab Routine Type 2 diabetes mellitus with hemoglobin A1c goal of less than 8.0% ([facility]CC) Expected: 08/07/2024 (Approximate), Expires: 08/07/2025 CBC WITH WBC DIFFERENTIAL AND ANEMIA REFLEX WORKUP Lab Routine Type 2 diabetes mellitus with hemoglobin A1c goal of less than 8.0% ([facility]) Expected: 08/07/2024 (Approximate), Expires: 08/07/2025 Health Maintenance Due Date Last Done Comments DISCUSS TOBACCO CESSATION (REFER TO SMARTSET #0145) 1957 Pneumococcal Vaccine: 65+ Years (1 of 2 - PCV) 1963 Depression Screening 1969 Albumin/Creatinine Ratio 1975 Diabetic Eye Exam 1975 Diabetic Foot Exam 1975 Hepatitis C Screening 1975 DTap/Tdap Vaccines (1 - Tdap) 1976 Mammogram 1997 Cologuard 2002 Sigmoidoscopy 2002 Lung Cancer Screening 2007 Zoster Vaccines (1 of 2) 2007 Fecal Occult Blood Test 01/05/2018 01/05/2017 DXA Scan 2022 HbA1c 01/26/2024 07/28/2023 COVID-19 Vaccine (2 - season) 2024 11/11/2020 Influenza Vaccine (FLU shot) (#1) 2024 GFR 07/28/2024 07/28/2023, 06/15, 06/20/2023, Additional history exists Colonoscopy 09/24/2027 09/24/2017 Colorectal Cancer Screening 09/24/2027 Lipid Panel 07/28/2028 07/28/2023 HPV (Gardasil) Vaccine Aged Out No [...] as of this encounter Visit Diagnoses Diagnosis Type 2 diabetes mellitus with hemoglobin A1c goal of less than 8.0% ([facility])- Primary Body mass index (BMI) of 45.0 to 49.9 in adult ([facility]) Schizoaffective disorder, unspecified type ([facility]) History of pulmonary embolism Personal history of pulmonary embolism Gastroesophageal reflux disease without esophagitis Esophageal reflux Irritable bowel syndrome, unspecified type Tobacco use disorder Cutaneous candidiasis Candidiasis of skin and nails Dysuria documented in this encounter Care Teams Gravity Prospecting Operator Relationship Specialty Start Date End Date New Provider [facility] Wen Carrillo [address] [place] [address] [place] [id number] PCP - General 08/07/24 documented as of this encounter
--- OUTSIDE RECORDS SUMMARY | 2024-10-18 23:03 | External Medical Summary | Summary of Care ---
Author Name Unknown Organization [facility] Address [address] [place] [address] Phone [phone] Care Team Providers Care Farm Management Supervisor Name Role Phone Unavailable Primary Care Provider Unavailabl e Reason for Visit * Reason Comments eRx-Medication Refill Encounter Details Date Type Department Care Team (Late st Contact Info) Description 08/29/2024 Refill Family Medicine [address] [place] [phone] Yemi Zhang PA-C [address] [place] [address] [place] [id number] Irritable bowel syndrome Allergies Active Allergy Reactions Criticality Noted Date Comments Penicillins 08/07/2005 vomiting and itchy documented as of this encounter (statuses as of 08/30/2024) Medications Medication Sig Dispensed Refills Start Date [...] DAY 378 g 5 11/05/2023 Active Creon 41407-[address]679 UNIT Oral Capsule Delayed Release Particles (Pancrelipase (Vtk-Eaqr-Fyic)) One capsule three times a day 90 [...] EVERY DAY 90 Tablet 5 04/13/2024 Active Pantoprazole Sodium 40 MG Oral Tablet Delayed Release (Protonix)Indicat ions:Gastroesopha geal reflux disease without esophagitis TAKE ONE TABLET IN THE MORNING 90 Tablet 1 07/06/2024 Active Bath/Shower SeatIndications:T ype 2 diabetes mellitus with hemoglobin A1c goal of less than 8.0% ([facility]) Use as directed 1 Each 08/07/2024 Active Nystatin 111417 UNIT/GM External CreamIndications: Cutaneous candidiasis Apply topically to affected area 2 times a day. To affacted area for two weeks. 30 g 2 08/07/2024 Active metFORMIN HCl ER 500 MG Oral Tablet Extended Release 24 Hour (Glucophage XR) TAKE ONE TABLET TWICE DAILY 180 Tablet 2 08/28/2024 Active Cholestyramine 4 GM/DOSE Oral PowderIndications :Irritable bowel syndrome DISSOLVE ONE AND ONE-HALF scoops into EIGHT ounces of JUICE OR water EVERY DAY 378 g 1 08/30/2024 Active Cholestyramine 4 GM/DOSE Oral PowderIndications :Irritable bowel syndrome DISSOLVE ONE AND ONE-HALF scoops into EIGHT ounces of JUICE OR water EVERY DAY 378 g 1 07/07/2024 Discontinued documented as of this encounter (statuses as of 08/30/2024) Active Problems Problem Noted Date Diagnosed Date Female stress incontinence 05/31/2024 Body mass index (BMI) of 45.0 to 49.9 in adult 1 Overview: Per Obesity protocol Type 2 diabetes mellitus wit h hemoglobin A1c goal of less than 8.0% 06/16/2023 Schizoaffective disorder 06/16/2023 Tobacco use disorder 06/16/2023 Gastroesophageal reflux disease without esophagi tis 06/16/2023 History of pulmonary embolism 06/16/2023 [facility] current use of anticoagulant therapy 0 06/16/2023 Overview: Xarelto IBS (irritable bowel syndrome) 06/16/2023 Other specified types of schizophrenia, chronic condition 08/07/2005 Panic disorder 08/07/2005 Peptic ulcer 08/07/2005 documented as of this encounter (statuses as of 08/30/2024) Social History Tobacco Use Types Packs/Day Years [...] Telephone Encounter - Yemi Zhang PA-C - 08/30/2024 3:05 PM EDTSigned Prescriptions: Disp Refills Cholestyramine 4 GM/DOSE Oral Powder 378 g 1 Sig: DISSOLVE ONE AND ONE-HALF scoops into EIGHT ounces of JUICE OR water EVERY DAY Authorizing Provider: YEMI ZHANG * Telephone Encounter - Ric Kirk, [facility] - 08/30/2024 3:02 PM EDT Pending Prescriptions: Disp Refills Cholestyramine 4 GM/DOSE Oral Powder [Phar*378 g 1 Sig: DISSOLVE ONE AND ONE-HALF scoops into EIGHT ounces of JUICE OR water EVERY DAY * Telephone Encounter - Ric Kirk, [facility] - 08/30/2024 3:02 PM EDT Pending Prescriptions: Disp Refills Cholestyramine 4 GM/DOSE Oral Powder [Phar*378 g 1 Sig: DISSOLVE ONE AND ONE-HALF scoops into EIGHT ounces of JUICE OR water EVERY DAY 08/07/2024 (in office), Visit date not found (telemedicine) 02/05/2025 If no future appointments scheduled, and last appointment is greater than a year ago, please schedule patient for a follow-up appointment Last date the medication was ordered: 07/07/24 [facility] [address] [place] Is this request for a controlled substance?No [...] 8:20 AM EDT Office Visit Family Medicine [address] [place] [phone] Wen Cardoza MD [address] [place] [address] [place] [phone] Health Maintenance Due Date Last Done Comments DISCUSS TOBACCO CESSATION (REFER TO SMARTSET #4562) 1955 Pneumococcal Vaccine: 65+ Years (1 of [...]
--- OUTSIDE RECORDS SUMMARY | 2024-10-18 23:03 | External Medical Summary ---
Author Name Unknown Address Unknown Organization [id number]:[facility] [place] [address] Laboratory Report Ordering Provider Test Date Status FRED ANGEL 09/20/2024 06:22:59 Final Observation Date Value Abnormality Reference (Units ) Status WBC, Total 09/20/2024 06:22:59 8.05 4.00-10.8 0 (K/uL) Final RBC 09/20/2024 06:22:59 4.28 3.85-5.15 (M/uL) Final Hemoglobin 09/20/2024 06:22:59 12.4 12.0-15.3 (g/dL) Final HCT 09/20/2024 06:22:59 38.6 36.0-45.2 (%) Final MCV 09/20/2024 06:22:59 90.2 81.5-97.5 (fL) Final MCH 09/20/2024 06:22:59 29.0 27.0-34.0 (pg) Final MCHC 09/20/2024 06:22:59 32.1 32.0-36.0 (g/dL) Final RDW 09/20/2024 06:22:59 23.2 11.5-15.5 (%) Final Platelets 09/20/2024 06:22:59 334 140-400 (K /uL) Final MPV 09/20/2024 06:22:59 9.4 6.6-11.1 ( fL) Final Performing Location [facility] [place] [address]
--- OUTSIDE RECORDS SUMMARY | 2024-10-18 23:04 | External Medical Summary ---
Author Name Unknown Address Unknown Organization [id number]:[facility] - [address] [place] [address] Laboratory Report Ordering Provider Test Date Status JOCELYN KOTHARI 08/07/2024 08:54:39 Final Observation Date Value Abnormality Reference (Units ) Status Sodium, Urine 08/07/2024 08:54:39 86 (mmol/ L) Final Potassium, Urine 08/07/2024 08:54:39 22.2 (mm ol/L) Final Chloride, Urine 08/07/2024 08:54:39 69 (mmo l/L) Final Performing Location [facility] - [address] [place] [address]
--- OUTSIDE RECORDS SUMMARY | 2024-10-18 23:04 | External Medical Summary ---
Author Name Unknown Address Unknown Organization K01:[facility] - [address] [place] [address] Laboratory Report Ordering Provider Test Date Status SANIYAMELVIPATRICIA 08/07/2024 08:54:39 Final Observation Date Value Abnormality Reference (Units ) Status Osmolality 08/07/2024 08:54:39 277 Below low normal 27 8-305 (mOsm/kg) Final Performing Location [facility] - [address] [place] [address]
--- OUTSIDE RECORDS SUMMARY | 2024-10-18 23:04 | External Medical Summary ---
Author Name Unknown Address Unknown Organization [id number]:[facility] [place] [address] [facility] [address] Laboratory Report Ordering Provider Test Date Status VICENTE BRAGG 08/07/2024 08:54:39 Final Observation Date Value Abnormality Reference (Units ) Status BUN 08/07/2024 08:54:39 7 6-20 (mg/dL) Final Creatinine 08/07/2024 08:54:39 0.7 0.5-1.0 (mg/dL) Final Glomerular filtration rate/1.73 sq M.predicted [Volume Rate/Area] in Serum, Plasma or Blood by Creatinine-based formula (CKD-EPI) 08/07/2024 08:54:39 >90 >=60 (mL/min) Final eGFR is calculated based on the CKD-EPI 2020 equation. Sodium 08/07/2024 08:54:39 134 Below low normal 135 -146 (mmol/L) Final Potassium 08/07/2024 08:54:39 4.8 3.5-5.1 (m mol/L) Final Cl 08/07/2024 08:54:39 100 98-107 (mm ol/L) Final CO2 08/07/2024 08:54:39 22 22-32 (mmo l/L) Final Anion gap 08/07/2024 08:54:39 12 7-15 (mmol /L) Final Glucose 08/07/2024 08:54:39 98 70-120 (mg /dL) Final Albumin 08/07/2024 08:54:39 3.2 Below low normal 3.8 -5.0 (g/dL) Final AST (Aspartate aminotransferase) 08/07/2024 08:54:39 12 10-35 (U/L) Fin al Alk Phos 08/07/2024 08:54:39 103 35-130 (U/ L) Final Bilirubin, Total 08/07/2024 08:54:39 0.3 <=1 .2 (mg/dL) Final Calcium 08/07/2024 08:54:39 9.1 8.4-10.2 ( mg/dL) Final Protein 08/07/2024 08:54:39 5.5 Below low normal 6.0 -8.3 (g/dL) Final ALT (Alanine aminotransferase) 08/07/2024 08:54:39 <6 Below low normal 10-35 (U/L) Final Performing Location [facility] [place] [address] [facility] [address]
--- OUTSIDE RECORDS SUMMARY | 2024-10-18 23:04 | External Medical Summary | Summary of Care ---
Author Name Unknown Organization [facility] Address [address] [facility] [address] Phone [phone] Care Team Providers Care Sitecore Developer Name Role Phone New Provider [facility] Wen Lang Care Provider Reason for Visit * Reason Comments Outpatient Testing Encounter Details Date Type Department Care Team (Late st Contact Info) Description 08/07/2024 9:10 AM EDT Laboratory Laboratory [address] [place] [phone] [place] [address] Hyponatremia; Type 2 diabetes mellitus with hemoglobin A1c goal of less than 8.0% ([facility]) Allergies Active Allergy Reactions Criticality Noted Date [...] DAY 378 g 5 11/05/2023 Active Creon [id number] UNIT Oral Capsule Delayed Release Particles (Pancrelipase (Kyp-Rbrw-Eqwz)) One capsule three times a day 90 [...] goal of less than 8.0% ([facility]) Use as directed 1 Each 08/07/2024 Active Nystatin 616731 UNIT/GM External CreamIndications:Cu taneous candidiasis Apply topically [...] tis 06/16/2023 History of 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 0 06/16/2023 [...] 8:20 AM EDT Office Visit Family Medicine Sotero Chavez [address] [place] [address] [place] [phone] New Provider [facility] Wen Ovalles [address] [place] [address] [place] [address] Pending Results Name Type Priority Associated Diagnoses Date /Time OSMOLALITY, SERUM Lab Routine Hyponatremia 08/07/2024 8:54 AM EDT OSMOLALITY, URINE Lab Routine Hyponatremia 08/07/2024 8:54 AM EDT ELECTROLYTES, RANDOM URINE Lab Routine Hyponatremia 08/07/2024 8:54 AM EDT MAGNESIUM Lab Routine Hyponatremia 08/07/2024 8:54 AM EDT HEMOGLOBIN A1C Lab Routine Type 2 diabetes mellitus with hemoglobin A1c goal of less than 8.0% ([facility]) 08/07/2024 8:54 AM EDT LIPID PANEL WITH DIRECT LDL IF TG IS HIGH Lab Routine Type 2 diabetes mellitus with hemoglobin A1c goal of less than 8.0% ([facility]) 08/07/2024 8:54 AM EDT COMPREHENSIVE METABOLIC PANEL Lab Routine Type 2 diabetes mellitus with hemoglobin A1c goal of less than 8.0% ([facility]) 08/07/2024 8:54 AM EDT ALBUMIN / CREATININE RATIO, URINE Lab Routine Type 2 diabetes mellitus with hemoglobin A1c goal of less than 8.0% ([facility]) 08/07/2024 8:54 AM EDT CBC WITH WBC DIFFERENTIAL AND ANEMIA REFLEX WORKUP Lab Routine Type 2 diabetes mellitus with hemoglobin A1c goal of less than 8.0% ([facility]) 08/07/2024 8:54 AM EDT ANEMIA CBC Lab Routine Type 2 diabetes mellitus with hemoglobin A1c goal of less than 8.0% ([facility]) 08/07/2024 8:54 AM EDT DIFFERENTIAL, AUTOMATED Lab Routine Type 2 diabetes mellitus with hemoglobin A1c goal of less than 8.0% ([facility]) 08/07/2024 8:54 AM EDT ANEMIA REFLEX CHEMISTRY HOLD Lab Routine Type 2 diabetes mellitus with hemoglobin A1c goal of less than 8.0% ([facility]) 08/07/2024 8:54 AM EDT Health Maintenance Due Date Last Done Comments DISCUSS TOBACCO CESSATION (REFER TO SMARTSET #4829) 1955 Pneumococcal Vaccine: 65+ Years (1 of [...] as of this encounter Visit Diagnoses Diagnosis Hyponatremia Hyposmolality and/or hyponatremia Type 2 diabetes mellitus with hemoglobin A1c goal of less than 8.0% (HCC) documented in this encounter Care Teams Sitecore Developer Relationship Specialty Start Date End Date New Provider [facility] [address] [place] [address] [place] [address] PCP - General 08/07/24 documented as of this encounter
--- OUTSIDE RECORDS SUMMARY | 2024-10-18 23:04 | External Medical Summary | Summary of Care ---
Author Name Unknown Organization [facility] Address [address] [place] [address] Phone [phone] Care Team Providers Care Operations Officer Name Role Phone Unavailable Primary Care Provider Unavailabl e Reason for Visit * Reason Comments Re-Check Requesting orders fo r lift chair (recliner), shower chair, and wheeled walker asking for those to be sent to [facility]. Pt was seen at [facility] about a month ago for a fall and the doctor told her she looked anemic, wondering if labs should be checked. Encounter Details Date Type Department Care Team (Late st Contact Info) Description 08/07/2024 8:20 AM EDT Office Visit Family Medicine [address] [place] [phone] Nat Lopez PA-C [address] [place] [address] [place] [id number] Type 2 diabetes mellitus with hemoglobin A1c goal of less than 8.0% ([facility])*; Body mass index (BMI) of 45.0 to 49.9 in adult ([facility]); Schizoaffective disorder, unspecified type ([facility]); History of pulmonary embolism; Gastroesophageal reflux disease [...] DAY 378 g 5 11/05/2023 Active Creon 08184-11476 UNIT Oral Capsule Delayed Release Particles (Pancrelipase (Dgw-Xevc-Xqgh)) One capsule three times a day 90 [...] goal of less than 8.0% ([facility]) Use as directed 1 Each 08/07/2024 Active Nystatin 193908 UNIT/GM External CreamIndications:Cu taneous candidiasis Apply topically [...] 06/16/2023 History of pulmonary embolism 06/16/2023 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 Pt was seen at [facility] about a month ago for a [...] ORwater EVERY DAY 378 g 5 Creon 76464-59169 UNIT Oral Capsule Delayed Release Particles (Pancrelipase (Vwx-Xwou-Jhfi)) One capsule three times a day 90 [...] Past Medical History: Diagnosis Date Cystitis 07/10/2023 [facility] falls and confusion related to E coli cystitis DM type 2, goal HbA1c < 8% ([facility]) Other specified types of schizophrenia, chronic condition [...] goal of less than 8.0% ([facility]) (Primary) - DURABLE MEDICAL EQUIPMENT - Bath/Shower [...] (BMI) of 45.0 to 49.9 in adult ([facility]) Schizoaffective disorder, unspecified type ([facility]) History of pulmonary embolism Gastroesophageal reflux disease without esophagitis Irritable bowel syndrome, unspecified type Tobacco use disorder Will check some labs. Pt is a fall risk and confined to wheelchair. Would benefit from shower chair, chair lift, wheeled walker. Follow Up: Return if symptoms worsen or fail to improve. Nat Lopez PA-C documented in this encounter Plan of Treatment Upcoming Encounters Date Type Department Care Team (Late st Contact Info) Description 08/07/2024 9:10 AM EDT Laboratory Laboratory [address] [place] [phone] [place] [address] Hyponatremia; Type 2 diabetes mellitus with hemoglobin A1c goal of less than 8.0% ([facility]) Pending Results Name Type Priority Associated Diagnoses [...] Comments DISCUSS TOBACCO CESSATION (REFER TO SMARTSET #4898) 1955 Pneumococcal Vaccine: 65+ Years (1 of [...] DXA Scan 2022 Adult Wellness Visit 2023 HbA1c 01/26/2024 07/28/2023 COVID-19 Vaccine (2 - [...] in adult (HCC) Schizoaffective disorder, unspecified type (HCC) History of pulmonary embolism Personal history of pulmonary embolism Gastroesophageal reflux disease without esophagitis Esophageal reflux Irritable bowel syndrome, unspecified type Tobacco use disorder Cutaneous candidiasis Candidiasis of skin and nails Dysuria Hyponatremia Hyposmolality and/or hyponatremia Type 2 diabetes mellitus with hemoglobin A1c goal of less than 8.0% (HCC) documented in this encounter
--- OUTSIDE RECORDS SUMMARY | 2024-10-18 23:04 | External Medical Summary ---
Author Name Unknown Address Unknown Organization [id number]:LABORATORY [facility] - [address] [place] [address] Laboratory Report Ordering Provider Test Date Status YEMIZAKIAKINGSLEY 08/07/2024 08:54:39 Final Observation Date Value Abnormality Reference (Units ) Status Ferritin 08/07/2024 08:54:39 11 Below low normal 13- 150 (ng/mL) Final Postmenopausal women have hi gher ferritin levels than pre-menopausal women. The above reference interval is based on pre-menopausal women. Performing Location LABORATORY C - [address] [place] [address]
--- OUTSIDE RECORDS SUMMARY | 2024-10-18 23:05 | External Medical Summary ---
Author Name Unknown Address Unknown Organization [id number]:LABORATORY [facility] [place] - [address] [place] [address] Laboratory Report Ordering Provider Test Date Status VICENTE BRAGG 08/07/2024 08:54:39 Final Observation Date Value Abnormality Reference (Units ) Status Retic, % (auto) 08/07/2024 08:54:39 1.96 Above high normal 0.80-1.90 (%) Final Reticulocytes, Absolute 08/07/2024 08:54:39 73.9 31.3-100.1 (K/uL) Final Reticulocyte fraction, immature 08/07/2024 08:54:39 31.7 Above high normal 2.5-20.6 (%) Final Reticulocyte HGB 08/07/2024 08:54:39 25.4 Below low normal 29.7-37.4 (pg) Final Performing Location LABORATORY [facility] - [address] [place] [address]
--- OUTSIDE RECORDS SUMMARY | 2024-10-18 23:05 | External Medical Summary ---
Author Name Unknown Address Unknown Organization [id number]:LABORATORY [facility] - [facility] [address] [facility] [address] Laboratory Report Ordering Provider Test Date Status VICENTE BRAGG 08/07/2024 08:54:39 Final Observation Date Value Abnormality Reference (Units ) Status WBC, Total 08/07/2024 08:54:39 7.52 4.00-10.8 0 (K/uL) Final RBC 08/07/2024 08:54:39 3.83 3.85-5.15 (M/uL) Final Hemoglobin 08/07/2024 08:54:39 10.2 Below low normal 12 .0-15.3 (g/dL) Final Anemia reflex testing trigge rs on a HGB < 12.0 for Females and HGB < 13.0 for Males in accordance with the WHO Anemia Guidelines HCT 08/07/2024 08:54:39 32.9 Below low normal 36. 0-45.2 (%) Final MCV 08/07/2024 08:54:39 85.9 81.5-97.5 (fL) Final MCH 08/07/2024 08:54:39 26.6 27.0-34.0 (pg) Final MCHC 08/07/2024 08:54:39 31.0 32.0-36.0 (g/dL) Final RDW 08/07/2024 08:54:39 18.1 11.5-15.5 (%) Final Platelets 08/07/2024 08:54:39 190 140-400 (K /uL) Final MPV 08/07/2024 08:54:39 10.3 6.6-11.1 ( fL) Final Nucleated erythrocytes/100 leukocytes [Ratio] in Blood by Automated count 08/07/2024 08:54:39 0 <=0 (/100 WBCs) Final Performing Location LABORATORY [facility] - [address] [facility] [address]
--- OUTSIDE RECORDS SUMMARY | 2024-10-18 23:05 | External Medical Summary ---
Author Name Unknown Address Unknown Organization [id number]:LABORATORY [facility] - [address] [facility] [place] [address] Laboratory Report Ordering Provider Test Date Status VICENTE BRAGG 08/07/2024 08:54:39 Final Observation Date Value Abnormality Reference (Units ) Status SYNC LEUKOCYTES IN BLOOD BY AUTOMATED COUNT 08/07/2024 08:54:39 7.52 4.00-10.80 (K/uL) Final Segs 08/07/2024 08:54:39 46.9 40.0-75.0 (%) Final Lymphs % 08/07/2024 08:54:39 41.8 18.0-42.0 (%) Final Monos 08/07/2024 08:54:39 8.9 1.0-11.0 (%) Final Eosinophils 08/07/2024 08:54:39 1.2 0.0-6.0 (%) Final Basos 08/07/2024 08:54:39 0.4 0.0-2.0 (%) Final Immature Granulocyte, Percent 08/07/2024 08:54:39 0.8 0.0-2.0 (%) Final Absolute Segs 08/07/2024 08:54:39 3.53 1.80-7.70 (K/uL) Final Lymphs, absolute 08/07/2024 08:54:39 3.14 1.00-4.80 (K/ul) Final Monos, Abs 08/07/2024 08:54:39 0.67 0.00-1.10 (K/uL) Final Eos, Abs 08/07/2024 08:54:39 0.09 0.00-0.70 (K/uL) Final Basos, Abs 08/07/2024 08:54:39 0.03 0.00-0.20 (K/uL) Final Immature Granulocytes, Number 08/07/2024 08:54:39 0.06 0.00-0.20 (K/uL) Final Performing Location LABORATORY [facility] - [facility] [address] [facility] [address]
--- OUTSIDE RECORDS SUMMARY | 2024-10-18 23:05 | External Medical Summary ---
Author Name Unknown Address Unknown Organization K01:LABORATORY [facility] - [facility] [address] [place] [address] Laboratory Report Ordering Provider Test Date Status VICENTE BRAGG 08/07/2024 08:54:39 Final Normal: <30 mg/g creatinine< br/>High: 30-300 mg/g creatinine
Very High: >300 mg/g creatinine
Nephrotic: >2200 mg/g creatinine Observation Date Value Abnormality Reference (Units ) Status Albumin, Urine 08/07/2024 08:54:39 <1.20 (mg/dL) Final Creatinine, Urine 08/07/2024 08:54:39 58 (mg/dL) Final Albumin/Creatinine [Mass Ratio] in Urine 08/07/2024 08:54:39 <21 <30 (mg/g Creat) Final Performing Location LABORATORY [facility] - [facility] [place] [address]
--- OUTSIDE RECORDS SUMMARY | 2024-10-18 23:06 | External Medical Summary ---
Author Name Unknown Address Unknown Organization K01:[facility]ORY [facility] [address] [facility] [address] Laboratory Report Ordering Provider Test Date Status VICENTE BRAGG 08/07/2024 08:54:39 Final Observation Date Value Abnormality Reference (Units ) Status HbA1C 08/07/2024 08:54:39 5.5 4.0-5.6 (% ) Final The use of HbA1c to monitor glycemic status is based on normal hemoglobin and HbA composition. This test should not be used in patients with abnormal hemoglobin that affects the half life of the red blood cell or the in vivo glycation rates. Glucose, estimated average 08/07/2024 08:54:39 111 <126 (mg/dL) Final Performing Location LAB[facility]ORY [facility] [address] [facility] [address]
--- OUTSIDE RECORDS SUMMARY | 2024-10-18 23:06 | External Medical Summary | Summary of Care ---
Author Name Unknown Organization [facility] Address [address] [place] [address] Phone [phone] Care Team Providers Care Inspecting And Testing Lead Hand Name Role Phone ErnestoIssa ryanamber Castano PA-C Primary Care Provider [phone]- [phone] Reason for Visit * Reason Comments eRx-Medication Refill Encounter Details Date Type Department Care Team (Late st Contact Info) Description 07/31/2024 Refill Family Medicine [address] [phone] Desmond Villasenor MD [address] [place] [address] [place] [address] Allergies Active Allergy Reactions Criticality Noted Date Comments Penicillins 08/07/2005 vomiting and itchy documented as of this encounter (statuses as of 08/02/2024) Medications Medication Sig Dispensed Refills Start Date [...] DAY 378 g 5 11/05/2023 Active Creon 89291-78978 UNIT Oral Capsule Delayed Release Particles (Pancrelipase (Scy-Xwsa-Dkiu)) One capsule three times a day 90 [...] TABLET TWICE DAILY 60 Tablet 08/02/2024 Active metFORMIN HCl ER 500 MG Oral Tablet Extended Release 24 Hour (Glucophage XR) TAKE ONE TABLET BY MOUTH TWICE DAILY 60 Tablet 5 02/21/2024 4 Discontinued documented as of this encounter (statuses as of 08/02/2024) Active Problems Problem Noted Date Diagnosed Date Female stress incontinence 05/31/2024 Body mass index (BMI) of 45.0 to 49.9 in adult 1 Overview: Per Obesity protocol Type 2 diabetes mellitus wit h hemoglobin A1c goal of less than 8.0% 06/16/2023 Schizoaffective disorder 06/16/2023 Tobacco use disorder 06/16/2023 Gastroesophageal reflux disease without esophagi tis 06/16/2023 History 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 06/16/2023 Overview: Xarelto IBS (irritable bowel syndrome) 06/16/2023 Other specified types of schizophrenia, chronic condition 08/07/2005 Panic disorder 08/07/2005 Peptic ulcer 08/07/2005 documented as of this encounter (statuses as of 08/02/2024) Social History Tobacco Use Types Packs/Day Years [...] Telephone Encounter - Yemi Zhang PA-C - 08/02/2024 8:25 AM EDTSigned Prescriptions: Disp Refills metFORMIN HCl ER 500 MG Oral Tablet Extend*60 Tab*0 Sig: TAKE ONE TABLET TWICE DAILY Authorizing Provider: YEMI ZHANG * Telephone Encounter - Kerrie Abarca [facility] - 08/02/2024 8:13 AM EDT Pending Prescriptions: Disp Refills metFORMIN HCl ER 500 MG Oral Tablet Extend*60 Tab*0 Sig: TAKE ONE TABLET TWICE DAILY * Telephone Encounter - Kerrie Abarca [facility] - 08/02/2024 8:13 AM EDT Multiple cancelled appts Upcoming 08/07, 1 month supply pended documented in this encounter Plan of Treatment Upcoming Encounters Date Type Department Care Team (Late st Contact Info) Description 08/07/2024 8:20 AM EDT Office Visit Family Medicine [address] [phone] Yemi Zhang PA-C [address] [place] [address] [place] [address] Health Maintenance Due Date Last Done Comments DISCUSS TOBACCO CESSATION (REFER TO SMARTSET #[id number]) 1955 Pneumococcal Vaccine: 65+ Years (1 of [...] filedocumented as of this encounter Care Teams Inspecting And Testing Lead Hand Relationship Specialty Start Date End Date Yemi Zhang PA-C [address] [place] [address] [place] [phone] PCP - General Physician Trimmer And Reinforcer 06/08/24 documented as of this encounter
--- OUTSIDE RECORDS SUMMARY | 2024-10-18 23:06 | External Medical Summary | Summary of Care ---
Author Name Unknown Organization [facility] Address [address] [place] [address] Phone [phone] Care Team Providers Care Guest Service Agent Name Role Phone Nat Lopez PA-C Primary Care Provider [phone]- [phone] Reason for Visit * Reason Onset Date Comments Order Request 06/02/2024 Encounter Details Date Type Department Care Team (Late st Contact Info) Description 06/02/2024 Telephone Family [address] [phone] Nat Lopez PA-C [address] [place] [address] [place] [address] Order Request Allergies Active Allergy Reactions Criticality Noted Date Comments Penicillins 08/07/2005 vomiting and itchy documented as of this encounter (statuses as of 06/29/2024) Medications Medication Sig Dispensed Refills Start Date End Date Status Loratadine 10 MG Oral Tablet Take 1 Tablet by mouth in the morning. 30 Tablet 11 11/04/2022 Active Divalproex Sodium 500 MG Oral Tablet Delayed Release (Depakotrang ROLLINS) 3 tabs at bedtime 11/04/2022 Acti ve Escitalopram Oxalate 20 MG Oral Tablet (Lexapro) [...] night 11/04/2022 Active Cholestyramine 4 GM/DOSE Oral PowderIndications:Ir ritable bowel syndrome DISSOLVE ONE AND ONE-HALF scoops into EIGHT ounces of JUICE OR water EVERY DAY 378 g 5 11/05/2023 Active Cholestyramine 4 GM/DOSE Oral PowderIndications:Ir ritable bowel syndrome DISSOLVE ONE AND ONE-HALF scoops into EIGHT ounces of JUICE OR water EVERY DAY 378 g 1 11/09/2023 Active Creon 33952-76579 UNIT Oral Capsule Delayed Release Particles (Pancrelipase (Qkd-Kzno-Zbhu)) One capsule three times a day 90 Capsule 5 12/20/2023 Active Pantoprazole Sodium 40 MG Oral Tablet Delayed Release (Protonix)Indication s:Gastroesophageal reflux disease without esophagitis TAKE ONE TABLET IN THE MORNING 90 Tablet 1 01/19/2024 Active QUEtiapine Fumarate 200 MG Oral Tablet (SEROquel) Take 1 Tablet by mouth at bedtime. 01/31/2024 Active clonazePAM 0.5 MG Oral Tablet (KlonoPIN) Take 1 Tablet by mouth 2 times a day as needed for Anxiety. 01/31/2024 Active metFORMIN HCl ER 500 MG Oral Tablet Extended Release 24 Hour (Glucophage XR) TAKE ONE TABLET BY MOUTH TWICE DAILY 60 Tablet 5 02/21/2024 Active Xarelto 20 MG Oral Tablet (Rivaroxaban) TAKE ONE TABLET EVERY DAY 90 Tablet 5 04/13/2024 Active documented as of this encounter (statuses as of 06/29/2024) Active Problems Problem Noted Date Diagnosed Date Female stress incontinence 05/31/2024 Body mass index (BMI) of 45.0 to 49.9 in adult 1 Overview: Per Obesity protocol Type 2 diabetes mellitus wit h hemoglobin A1c goal of less than 8.0% 06/16/2023 Schizoaffective disorder 06/16/2023 Tobacco use disorder 06/16/2023 Gastroesophageal reflux disease without esophagi tis 06/16/2023 History of pulmonary embolism 06/16/2023 prison current use of anticoagulant therapy 0 06/16/2023 Overview: Xarelto IBS (irritable bowel syndrome) 06/16/2023 Other specified types of schizophrenia, chronic condition 08/07/2005 Panic disorder 08/07/2005 Peptic ulcer 08/07/2005 documented as of this encounter (statuses as of 06/29/2024) Social History Tobacco Use Types Packs/Day Years Used Date Smoking Tobacco: Every Day Cigarettes 1 54.8 Started: 1967 Smokeless Tobacco: Never Alcohol Use [...] encounter Miscellaneous Notes * Telephone Encounter - Rena Broussard RN - 06/29/2024 11:19 AM EDT This will have to wait until pt is seen, daughter is aware Pt has an appt on 07/11/24, we have to have a clinic visit to send with these orders for insurance to cover. * Telephone Encounter - Jackie Jackson OSA - 06/28/2024 11:18 AM EDT Pt's daughter calling in for an update. Requesting a script for each individual order request due to insurance, and also a medical necessity for the lift chair. Please send it to the fax number / location in the previous message. * Telephone Encounter - Meagan Acuña OSA - 06/02/2024 9:40 AM EDT An order was requested for this patient. Name of Requesting Provider: Marcela (patient's daughter) Order Requested: Lift Chair ; Shower chair ; Rollator (walker with a seat) Diagnosis/Reason for Request: Unable to walk What location AND department does the patient wish to have their order completed at? [facility]; [address] [place] [address] Phone number is [phone] Fax Number, if applicable: [phone] If the caller is not a current patient, please advise the patient to call their current PCP to havethe order's prior to being seen in our office. The patient was informed that our providers would not order anything (medication, labs, etc.) prior to being seen. Please include Letter of Medical Necessities. Per Marcela. Patient's daughter scripts need to beseparate. documented in this encounter Plan of Treatment Upcoming Encounters Date Type Department Care Team (Late st Contact Info) Description 07/07/2024 9:00 AM EDT Office Visit Nephrology, [place] [address] [place] [address] Leeroy Salas MD [address] [facility] [place] [address] 07/11/2024 8:00 AM EDT Office Visit Family Medicine [address] [place] [phone] Nat Lopez PA-C [address] [place] [address] [place] [address] Health Maintenance Due Date Last Done Comments DISCUSS TOBACCO CESSATION (REFER TO SMARTSET #1825) 1955 Pneumococcal Vaccine: 65+ Years (1 of [...] COVID-19 Vaccine (2 - season) 2023 11/11/2020 Adult Wellness Visit 2023 HbA1c 01/26/2024 07/28/2023 Influenza Vaccine (FLU shot) (#1) 2024 GFR [...] as of this encounter Visit Diagnoses Diagnosis Schizoaffective disorder, unspecified type (HCC)- Primary documented in this encounter Care Teams Guest Service Agent Relationship Specialty Start Date End Date Nat Lopez PA-C [address] [place] [address] [place] [id number] PCP - General Physician Work Adjustment Instructor 06/08/24 documented as of this encounter
--- OUTSIDE RECORDS SUMMARY | 2024-10-18 23:06 | External Medical Summary ---
Author Name Unknown Address Unknown Organization K01:LABORATORY C - [address] [facility] [address] Laboratory Report Ordering Provider Test Date Status VICENTE BRAGG 08/07/2024 08:54:39 Final Observation Date Value Abnormality Reference (Units ) Status Triglyceride 08/07/2024 08:54:39 131 <=174 ( mg/dL) Final Triglyceride Reference Range s (mg/dL):
<150 Acceptable
150-174 Borderline high
175-499 High
>=500 Very high Cholesterol 08/07/2024 08:54:39 128 <200 (mg /dL) Final Total Cholesterol Reference Ranges (mg/dL):
<200 Desirable
200-239 Borderline high
>=240 High HDL 08/07/2024 08:54:39 48 Below low normal >49 (mg/dL) Final HDL Cholesterol Reference Ra nges (mg/dL):
>=60 High (Desirable)
<50 Low (Undesirable) For Females
<40 Low (Undesirable) For Males NON-HDL CHOLESTEROL 08/07/2024 08:54:39 80 <=159 (mg/dL) Final Non-HDL Cholesterol Referenc e Range (mg/dL):
<100 Target level for high risk ASCVD patient
<130 Optimal for general population
130-159 Near optimal for general population
160-189 Borderline High
190-219 High
>=220 Very High LDL, (calculated) 08/07/2024 08:54:39 54 <= 129 (mg/dL) Final LDL Cholesterol Reference Ra nges (mg/dL):
<70 Target level for high risk ASCVD patient
<100 Optimal for general population
100-129 Near optimal for general population
130-159 Borderline high
160-189 High
>=190 Very high Performing Location [facility] [place] [address] [facility] [address]
--- OUTSIDE RECORDS SUMMARY | 2024-10-18 23:06 | External Medical Summary ---
Author Name Unknown Address Unknown Organization K01:LABORATORY C - [address] [place] [address] Laboratory Report Ordering Provider Test Date Status JOCELYN KOTHARI 08/07/2024 08:54:39 Final Observation Date Value Abnormality Reference (Units ) Status Magnesium 08/07/2024 08:54:39 1.5 1.5-2.6 (m g/dL) Final Performing Location [facility]ORY [facility] - [address] [facility] [address]
--- OUTSIDE RECORDS SUMMARY | 2024-10-18 23:06 | External Medical Summary | Summary of Care ---
Author Name Unknown Organization [facility] Address [address] [place] [address] Phone [phone] Care Team Providers Care Chain Builder Name Role Phone Yemi Zhang PA-C Primary Care Provider +1- [phone] Reason for Visit * Reason Comments eRx-Medication Refill Encounter Details Date Type Department Care Team (Late st Contact Info) Description 07/05/2024 Refill Family [address] [phone] Yemi Zhang PA-C [address] [place] [address] [place] [address] Gastroesophageal reflux disease without esophagitis Allergies Active Allergy Reactions Criticality Noted Date Comments Penicillins 08/07/2005 vomiting and itchy documented as of this encounter (statuses as of 07/06/2024) Medications Medication Sig Dispensed Refills Start Date [...] 5 11/05/2023 Active Cholestyramine 4 GM/DOSE Oral PowderIndications :Irritable bowel syndrome DISSOLVE ONE AND ONE-HALF scoops into EIGHT ounces of JUICE OR water EVERY DAY 378 g 1 11/09/2023 Active Creon 63330-60179 UNIT Oral Capsule Delayed Release Particles (Pancrelipase (Oqm-Uyvy-Vjdj)) One capsule three times a day 90 [...] THE MORNING 90 Tablet 1 07/06/2024 Active Pantoprazole Sodium 40 MG Oral Tablet Delayed Release (Protonix)Indicat ions:Gastroesopha geal reflux disease without esophagitis TAKE ONE TABLET IN THE MORNING 90 Tablet 1 01/19/2024 Discontinued documented as of this encounter (statuses as of 07/06/2024) Active Problems Problem Noted Date Diagnosed Date [...] use of anticoagulant therapy 0 06/16/2023 Overview: Joseph IBS (irritable bowel syndrome) 06/16/2023 Other specified types of schizophrenia, chronic condition 08/07/2005 Panic disorder 08/07/2005 Peptic ulcer 08/07/2005 documented as of this encounter (statuses as of 07/06/2024) Social History Tobacco Use Types Packs/Day Years [...] encounter Miscellaneous Notes * Telephone Encounter - Janae Parada RPh - 07/06/2024 2:47 PM EDT Signed Prescriptions: Disp Refills Pantoprazole Sodium 40 MG Oral Tablet Kavitha*90 Tab*1 Sig: TAKE ONE TABLET IN THE MORNINGAuthorizing Provider: YEMI ZHANG User: JANAE PARADA-- documented in this encounter Plan of Treatment Upcoming Encounters Date Type Department Care Team (Late st Contact Info) Description 07/07/2024 9:00 AM EDT Office Visit Nephrology, [place] [address] [facility] [place] [address] Leeroy Salas MD [address] [facility] [place] [address] 07/11/2024 8:00 AM EDT Office Visit Family Medicine [address] [phone] Yemi Zhang PA-C [address] [place] [address] [place] [address] Health Maintenance Due Date Last Done Comments DISCUSS TOBACCO CESSATION (REFER TO SMARTSET #[id number]) 1955 Pneumococcal Vaccine: 65+ Years (1 of [...] reflux documented in this encounter Care Teams Chain Builder Relationship Specialty Start Date End Date Yemi Zhang PA-C [address] [place] [address] [place] [id number] PCP - General Physician Dot Net Architect 06/08/24 documented as of this encounter
--- OUTSIDE RECORDS SUMMARY | 2024-10-18 23:06 | External Medical Summary ---
Author Name Unknown Address Unknown Organization K01:LABORATORY [facility] - [address] [place] [address] Laboratory Report Ordering Provider Test Date Status JOCELYN KOTHARI 08/07/2024 08:54:39 Final Observation Date Value Abnormality Reference (Units ) Status Osmolality, Urine 08/07/2024 08:54:39 306 50 -1200 (mOsm/kg) Final Performing Location [facility] - [address] [place] [address]
--- OUTSIDE RECORDS SUMMARY | 2024-10-18 23:06 | External Medical Summary | Summary of Care ---
Author Name Unknown Organization [facility] Address [address] [place] [address] Phone [phone] Care Team Providers Care Portfolio Administrator Name Role Phone Yemi Zhang JOSIAH Primary Care Provider +1- [phone] Reason for Visit * Reason Comments eRx-Medication Refill Encounter Details Date Type Department Care Team (Late st Contact Info) Description 07/05/2024 Refill Family Medicine [address] [phone] Desmond Villasenor MD [address] [place] [address] [place] [address] Irritable bowel syndrome Allergies Active Allergy Reactions Criticality Noted Date Comments Penicillins 08/07/2005 vomiting and itchy documented as of this encounter (statuses as of 07/07/2024) Medications Medication Sig Dispensed Refills Start Date [...] DAY 378 g 5 11/05/2023 Active Creon 73529-15614 UNIT Oral Capsule Delayed Release Particles (Pancrelipase (Rlo-Kuzv-Hxoo)) One capsule three times a day 90 [...] THE MORNING 90 Tablet 1 07/06/2024 Active Cholestyramine 4 GM/DOSE Oral PowderIndications :Irritable bowel syndrome DISSOLVE ONE AND ONE-HALF scoops into EIGHT ounces of JUICE OR water EVERY DAY 378 g 1 11/09/2023 Discontinued documented as of this encounter (statuses as of 07/07/2024) Active Problems Problem Noted Date Diagnosed Date Female stress incontinence 05/31/2024 Body mass index (BMI) of 45.0 to 49.9 in adult 1 Overview: Per Obesity protocol Type 2 diabetes mellitus wit h hemoglobin A1c goal of less than 8.0% 06/16/2023 Schizoaffective disorder 06/16/2023 Tobacco use disorder 06/16/2023 Gastroesophageal reflux disease without esophagi tis 06/16/2023 History of pulmonary embolism 06/16/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 0 06/16/2023 Overview: Joseph IBS (irritable bowel syndrome) 06/16/2023 Other specified types of schizophrenia, chronic condition 08/07/2005 Panic disorder 08/07/2005 Peptic ulcer 08/07/2005 documented as of this encounter (statuses as of 07/07/2024) Social History Tobacco Use Types Packs/Day Years [...] Telephone Encounter - Yemi Zhang PA-C - 07/07/2024 12:11 PM EDTSigned Prescriptions: Disp Refills Cholestyramine 4 GM/DOSE Oral Powder 378 g 1 Sig: DISSOLVE ONE AND ONE-HALF scoops into EIGHT ounces of JUICE OR water EVERY DAY Authorizing Provider: YEMI ZHANG * Telephone Encounter - Jimbo Cassidy [facility] - 07/06/2024 5:55 PM EDTPending Prescriptions: Disp Refills Cholestyramine 4 GM/DOSE Oral Powder [Phar*378 g 1 Sig: DISSOLVE ONE AND ONE-HALF scoops into EIGHT ounces of JUICE OR water EVERY DAY * Telephone Encounter - Jimbo Cassidy [facility] - 07/06/2024 5:55 PM EDT Refill pharmacists currently not authorized to approve refills for the pended medication(s) per refill protocol. Please approve if appropriate. Pending Prescriptions: Disp Refills Cholestyramine 4 GM/DOSE Oral Powder [Phar*378 g 1 Sig: DISSOLVE ONE AND ONE-HALF scoops into EIGHT ounces of JUICE OR water EVERY DAY Last Visit: 07/28/2023 (in office), Visit date not found (telemedicine) Next Visit: 07/11/2024 If no future appointments scheduled, and last appointment is greater than a year ago, please schedule patient for a follow-up appointment Last date the medication was ordered: 11-09-23 Pharmacy: [facility], [address] [place] Is this request for a controlled substance?No Urine Drug Screen:No results found for this or any previous visit. Patient Phone Numbers Labs: Lab Results Component Value Date/Time CREAT 0.8 07/28/2023 11:44 AM CREAT 1.2 08/07/2005 03:51 PM POTASSIUM 4.7 07/28/2023 11:44 AM POTASSIUM 4.2 08/07/2005 03:51 PM TSH 1.64 08/07/2005 03:51 PM LDLDIRECT 106 07/28/2023 11:44 AM ALT 12 07/28/2023 11:44 AM ALT 21 08/07/2005 03:51 PM HGBA1C 6.7 (H) 07/28/2023 11:44 AM Alysha SalmonPh. Clinical Pharmacist [facility] [address] [place] [address], [address] [place] [address] : [phone] 07/06/2024,5:55 PM documented in this encounter Plan of Treatment Upcoming Encounters Date Type Department Care Team (Late st Contact Info) Description 07/11/2024 8:00 AM EDT Office Visit Family Medicine [address] [phone] Yemi Zhang PA-C [address] [place] [address] [place] [address] Health Maintenance Due Date Last Done Comments DISCUSS TOBACCO CESSATION (REFER TO SMARTSET #7085) 1955 Pneumococcal Vaccine: 65+ Years (1 of [...] DXA Scan 2022 COVID-19 Vaccine (2 - 2022- season) 2023 11/11/2020 Adult Wellness Visit 2023 [...] syndrome documented in this encounter Care Teams Portfolio Administrator Relationship Specialty Start Date End Date Yemi Zhang PA-C [address] [place] [address] [place] [phone] PCP - General Physician Vehicle Check In Clerk 06/08/24 documented as of this encounter
--- OUTSIDE RECORDS SUMMARY | 2024-10-18 23:06 | External Medical Summary ---
Author Name Unknown Address Unknown Organization K01:LABORATORY [facility] - [address] [place] [address] Laboratory Report Ordering Provider Test Date Status ZAKIA BRAGGKINGSLEY 08/07/2024 08:54:39 Final Observation Date Value Abnormality Reference (Units ) Status Iron 08/07/2024 08:54:39 17 Below low normal 33-151 (ug/dL) Final Iron-binding capacity 08/07/2024 08:54:39 371 250-425 (ug/dL) Final Transferrin Sat % 08/07/2024 08:54:39 5 Below low normal 15-55 (%) Final Performing Location LABORATORY [facility] - [address] [place] [address]
--- OUTSIDE RECORDS SUMMARY | 2024-10-18 23:07 | External Medical Summary | Summary of Care ---
Author Name Unknown Organization [facility] Address [address] [place] [address] Phone [phone] Care Team Providers Care Emergency Room Orderly Name Role Phone Unavailable Primary Care Provider Unavailabl e Reason for Visit * Reason Onset Date Comments Order Request 06/02/2024 Encounter Details Date Type Department Care Team (Late st Contact Info) Description 06/02/2024 Telephone Family Medicine [address] [place] [phone] Nat Lopez PA-C [address] [place] [address] [place] [address] Order Request Allergies Active Allergy Reactions Criticality Noted Date Comments Penicillins 08/07/2005 vomiting and itchy documented as of this encounter (statuses as of 06/02/2024) Medications Medication Sig Dispensed Refills Start Date End Date Status Loratadine 10 MG Oral Tablet Take 1 Tablet by mouth in the morning. 30 Tablet 11 11/04/2022 Active Divalproex Sodium 500 MG Oral Tablet Delayed Release (Depakote DR) 3 tabs at bedtime 11/04/2022 Acti ve [...] DAY 378 g 1 11/09/2023 Active Creon 50594-60912 UNIT Oral Capsule Delayed Release Particles (Pancrelipase (Dej-Dvps-Bzee)) One capsule three times a day 90 [...] as of this encounter (statuses as of 06/02/2024) Active Problems Problem Noted Date Diagnosed Date Female stress incontinence 05/31/2024 Body mass index (BMI) of 45.0 to 49.9 in adult 1 Overview: Per Obesity protocol Type 2 diabetes mellitus wit h hemoglobin A1c goal of less than 8.0% 06/16/2023 Schizoaffective disorder 06/16/2023 Tobacco use disorder 06/16/2023 Gastroesophageal reflux disease without esophagi tis 06/16/2023 History of pulmonary embolism 06/16/2023 [facility] current use of anticoagulant therapy 0 06/16/2023 Overview: Xarelto IBS (irritable bowel syndrome) 06/16/2023 Other specified types of schizophrenia, chronic condition 08/07/2005 Panic disorder 08/07/2005 Peptic ulcer 08/07/2005 documented as of this encounter (statuses as of 06/02/2024) Social History Tobacco Use Types Packs/Day Years Used Date Smoking Tobacco: Every Day Cigarettes 1 54.7 Started: 1967 Smokeless Tobacco: Never Alcohol Use [...] encounter Miscellaneous Notes * Telephone Encounter - Meagan Acuña OSA - 06/02/2024 9:40 AM EDT An order was requested for this patient. Name of Requesting Provider: Marcela (patient's daughter) Order Requested: Lift Chair ; Shower chair ; Rollator (walker with a seat) Diagnosis/Reason for Request: Unable to walk What location AND department does the patient wish to have their order completed at? [facility]; [address] [place] [address] Phone number is [phone] Fax Number, if applicable: [phone] If the caller is not a current [...] Care Team (Late st Contact Info) Description 06/08/2024 9:20 AM EDT Office Visit Nephrology, [place] [facility] [place] [address] Shira Hinojosa MD [address] [facility] [place] [address] 07/11/2024 8:00 AM EDT Office Visit Family Medicine [address] [phone] Nat Lopez PA-C [address] [place] [address] [place] [address] Health Maintenance Due Date Last Done Comments DISCUSS TOBACCO CESSATION (REFER TO SMARTSET #[id number]) 1955 Pneumococcal Vaccine: 65+ Years (1 of [...] Vaccine (2 - 2022- season) 2023 11/11/2020 HbA1c 01/26/2024 07/28/2023 Influenza Vaccine (FLU shot) [...]
--- OUTSIDE RECORDS SUMMARY | 2024-10-18 23:07 | External Medical Summary | Summary of Care ---
Author Name Unknown Organization [facility] Address [address] [place] [address] Phone [phone] Care Team Providers Care Physical Biochemist Name Role Phone Nat Lopez PA-C Primary Care Provider +1- [phone] Reason for Visit * Reason Onset Date Comments Order Request 06/02/2024 Encounter Details Date Type Department Care Team (Late st Contact Info) Description 06/02/2024 Telephone Family [address] [phone] Nat Lopez PA-C [address] [place] [address] [place] [address] Order Request Allergies Active Allergy Reactions Criticality Noted Date Comments Penicillins 08/07/2005 vomiting and itchy documented as of this encounter (statuses as of 06/28/2024) Medications Medication Sig Dispensed Refills Start Date [...] DAY 378 g 1 11/09/2023 Active Creon 81423-50028 UNIT Oral Capsule Delayed Release Particles (Pancrelipase (Xcs-Jfhu-Qkzk)) One capsule three times a day 90 [...] as of this encounter (statuses as of 06/28/2024) Active Problems Problem Noted Date Diagnosed Date Female stress incontinence 05/31/2024 Body mass index (BMI) of 45.0 to 49.9 in adult 1 Overview: Per Obesity protocol Type 2 diabetes mellitus wit h hemoglobin A1c goal of less than 8.0% 06/16/2023 Schizoaffective disorder 06/16/2023 Tobacco use disorder 06/16/2023 Gastroesophageal reflux disease without esophagi tis 06/16/2023 History of pulmonary embolism 06/16/2023 [facility] current use of anticoagulant therapy 0 06/16/2023 Overview: Xarelto IBS (irritable bowel syndrome) 06/16/2023 Other specified types of schizophrenia, chronic condition 08/07/2005 Panic disorder 08/07/2005 Peptic ulcer 08/07/2005 documented as of this encounter (statuses as of 06/28/2024) Social History Tobacco Use Types Packs/Day Years [...] encounter Miscellaneous Notes * Telephone Encounter - Jackie Jackson OSA [...] wish to have their order completed at? [facility]; [address] [facility] [address] Phone number is [phone] Fax Number, if applicable: [phone] If the caller is not a current [...] EDT Office Visit Nephrology, [place] 200 [facility] [place] [address] Leeroy Salas MD [address] [facility] [address] [place] [address] 07/11/2024 8:00 AM EDT Office Visit Family Medicine [address] [phone] Nat Lopez PA-C [address] [place], [place] [address] [address] Health Maintenance Due Date Last Done Comments DISCUSS TOBACCO CESSATION (REFER TO SMARTSET #4413) 1955 Pneumococcal Vaccine: 65+ Years (1 of [...] Primary documented in this encounter Care Teams Physical Biochemist Relationship Specialty Start Date End Date Nat Lopez PA-C [address] [place] [address] [place] [address] PCP - General Physician Carton Waxing Machine Operator 06/08/24 documented as of this encounter
--- OUTSIDE RECORDS SUMMARY | 2024-10-18 23:07 | External Medical Summary | Summary of Care ---
Author Name Unknown Organization [facility] Address [address] [place] [address] Phone [phone] Care Team Providers Care Coal Carrier Name Role Phone Unavailable Primary Care Provider Unavailabl e Reason for Visit * Reason Onset Date Comments Med Request 05/26/2024 Encounter Details Date Type Department Care Team (Late st Contact Info) Description 05/26/2024 Telephone Family Medicine [address] [place] [phone] Nat Lopez PA-C [address] [place] [address] [place] [address] Med Request Allergies Active Allergy Reactions Criticality Noted Date Comments Penicillins 08/07/2005 vomiting and itchy documented as of this encounter (statuses as of 05/31/2024) Medications Medication Sig Dispensed Refills Start Date [...] DAY 378 g 1 11/09/2023 Active Creon 66522-10778 UNIT Oral Capsule Delayed Release Particles (Pancrelipase (Xfu-Borc-Gafr)) One capsule three times a day 90 [...] as of this encounter (statuses as of 05/31/2024) Active Problems Problem Noted Date Diagnosed Date Female stress incontinence 05/31/2024 Body mass index (BMI) of 45.0 to 49.9 in adult 1 Overview: Per Obesity protocol Type 2 diabetes mellitus wit h hemoglobin A1c goal of less than 8.0% 06/16/2023 Schizoaffective disorder 06/16/2023 Tobacco use disorder 06/16/2023 Gastroesophageal reflux disease without esophagi tis 06/16/2023 History of pulmonary embolism 06/16/2023 longterm current use of anticoagulant therapy 0 06/16/2023 Overview: Xarelto IBS (irritable bowel syndrome) 06/16/2023 Other specified types of schizophrenia, chronic condition 08/07/2005 Panic disorder 08/07/2005 Peptic ulcer 08/07/2005 documented as of this encounter (statuses as of 05/31/2024) Social History Tobacco Use Types Packs/Day Years [...] Telephone Encounter - Rena Broussard RN - 05/31/2024 7:27 AM EDT Form on Bragster desk to sign * Telephone Encounter - Neida Youngblood CPhT - 05/26/2024 12:20 PM EDT Maryam oyder from [employer] in regards to if PCP office got the fax for incontinence/ testing supplies. Fax #: [phone] Thank you, Neida Youngblood CPhT Construction Teacher II [facility] 05/26/2024,12:22 PM documented in this encounter Plan of Treatment Upcoming Encounters Date Type Department Care Team (Late st Contact Info) Description 06/02/2024 12:00 PM EDT Office Visit [address] [place] [address] Nat Lopez PA-C [address] [place] [address] [place] [address] 06/08/2024 9:20 AM EDT Office Visit Nephrology, [place] 200 [facility] [place] [address] Shira Hinojosa MD 200 [facility] [place] [address] Health Maintenance Due Date Last Done Comments DISCUSS TOBACCO CESSATION (REFER TO SMARTSET #6839) 1955 Pneumococcal Vaccine: 65+ Years (1 of [...] COVID-19 Vaccine (2 - season) 2023 11/11/2020 HbA1c 01/26/2024 07/28/2023 Influenza [...]
--- OUTSIDE RECORDS SUMMARY | 2024-10-18 23:08 | External Medical Summary | Summary of Care ---
Author Name Unknown Organization [facility] Address [address] [place] [address] Phone [phone] Care Team Providers Care Intake Counselor Name Role Phone Unavailable Primary Care Provider Unavailabl e Reason for Visit * Reason Onset Date Comments Advice 05/17/2024 Encounter Details Date Type Department Care Team (Late st Contact Info) Description 05/17/2024 Telephone Ne[facility]rologyScar [address] [place] [address] Shira Hinojosa MD [address] [facility] [place] [address] Advice Allergies Active Allergy Reactions Criticality Noted Date Comments Penicillins 08/07/2005 vomiting and itchy documented as of this encounter (statuses as of 05/17/2024) Medications Medication Sig Dispensed Refills Start Date End Date Status Loratadine 10 MG Oral Tablet Take 1 Tablet by mouth in the morning. 30 Tablet 11 11/04/2022 Active Divalproex Sodium 500 MG Oral Tablet Delayed Release (Candelario FUENTES) 3 tabs at bedtime 11/04/2022 Acti ve [...] DAY 378 g 1 11/09/2023 Active Creon 57843-36448 UNIT Oral Capsule Delayed Release Particles (Pancrelipase (Lgv-Tsue-Oexs)) One capsule three times a day 90 [...] as of this encounter (statuses as of 05/17/2024) Active Problems Problem Noted Date Diagnosed Date Body mass index (BMI) of 45.0 to 49.9 in adult 1 Overview: Per Obesity protocol Type 2 diabetes mellitus wit h hemoglobin A1c goal of less than 8.0% 06/16/2023 Schizoaffective disorder 06/16/2023 Tobacco use disorder 06/16/2023 Gastroesophageal reflux disease without esophagi tis 06/16/2023 History of pulmonary embolism 06/16/2023 [facility] current use of anticoagulant therapy 0 06/16/2023 Overview: Xarelto IBS (irritable bowel syndrome) 06/16/2023 Other specified types of schizophrenia, chronic condition 08/07/2005 Panic disorder 08/07/2005 Peptic ulcer 08/07/2005 documented as of this encounter (statuses as of 05/17/2024) Social History Tobacco Use Types Packs/Day Years Used Date Smoking Tobacco: Every Day Cigarettes 1 54.6 Started: 1967 Smokeless Tobacco: Never Alcohol Use [...] encounter Miscellaneous Notes * Telephone Encounter - Lalitha Wynn LPN - 05/17/2024 10:24 AM EDT Spoke with daughter she is aware to contact PCP to discuss * Telephone Encounter - Beryl Mejia OSA - 05/17/2024 7:15 AM EDT Daughter Marcela asking if it would be okay for Tierra to take over the counter Cranberry pills. Wants to know if that would help as she feels mom might have a UTI. documented in this encounter Plan of Treatment Upcoming Encounters Date Type Department Care Team (Late st Contact Info) Description 06/02/2024 12:00 PM EDT Office Visit Family Medicine [address] [place] [phone] Nat Lopez PA-C [address] [place] [address] [place] [address] 06/08/2024 9:20 AM EDT Office Visit Nephrology, [place] 200 [facility] [place] [address] Shira Hinojosa MD [address] [facility] [place], [place] [address] Health Maintenance Due Date Last Done Comments DISCUSS TOBACCO CESSATION (REFER TO SMARTSET #7760) 1955 Pneumococcal Vaccine: 65+ Years (1 of [...]
--- OUTSIDE RECORDS SUMMARY | 2024-10-18 23:08 | External Medical Summary | Summary of Care ---
Author Name Unknown Organization [facility] Address [address] [place] [address] Phone [phone] Care Team Providers Care Digital Marketing Manager Name Role Phone Unavailable Primary Care Provider Unavailabl e Reason for Visit * Reason Onset Date Comments eRx-Medication Refill Left Message 04/11/2024 Encounter Details Date Type Department Care Team (Late st Contact Info) Description 04/11/2024 Refill Family Medicine [address] [phone] Nat Lopez PA-C [address] [place] [address] [place] [id number] Allergies Active Allergy Reactions Criticality Noted Date Comments Penicillins 08/07/2005 vomiting and itchy documented as of this encounter (statuses as of 05/05/2024) Medications Medication Sig Dispensed Refills Start Date End Date Status Loratadine 10 MG Oral Tablet Take 1 Tablet by mouth in the morning. 30 Tablet 11 2 Active Divalproex Sodium 500 MG Oral Tablet Delayed Release (Depakote DR) 3 tabs at bedtime 2 Active Escitalopram [...] night 2 Active Cholestyramine 4 GM/DOSE Oral PowderIndications:I rritable bowel syndrome DISSOLVE ONE AND ONE-HALF scoops into EIGHT ounces of JUICE OR water EVERY DAY 378 g 5 3 Active Cholestyramine 4 GM/DOSE Oral PowderIndications:I rritable bowel syndrome DISSOLVE ONE AND ONE-HALF scoops into EIGHT ounces of JUICE OR water EVERY DAY 378 g 1 3 Active Creon 60572-55013 UNIT Oral Capsule Delayed Release Particles (Pancrelipase (Zdo-Xhzq-Zxyh)) One capsule three times a day 90 Capsule 5 4 Active Pantoprazole Sodium 40 MG Oral Tablet Delayed Release (Protonix)Indicatio ns:Gastroesophageal reflux disease without esophagitis TAKE ONE TABLET IN THE MORNING 90 Tablet 1 4 Active QUEtiapine Fumarate 200 MG Oral Tablet (SEROquel) Take 1 Tablet by mouth at bedtime. 4 Active clonazePAM 0.5 MG Oral Tablet (KlonoPIN) Take 1 Tablet by mouth 2 times a day as needed for Anxiety. 4 Active metFORMIN HCl ER 500 MG Oral Tablet Extended Release 24 Hour (Glucophage XR) TAKE ONE TABLET BY MOUTH TWICE DAILY 60 Tablet 5 4 Active Xarelto 20 MG Oral Tablet (Rivaroxaban) TAKE ONE TABLET EVERY DAY 90 Tablet 5 4 Active Xarelto 20 MG Oral Tablet (Rivaroxaban) TAKE ONE TABLET BY MOUTH EVERY DAY 90 Tablet 5 3 04/13/20 24 Discontinued Meloxicam 15 MG Oral TabletIndications:G eneralized osteoarthritis Take 1 Tablet by mouth in the morning. for pain.. 30 Tablet 5 3 04/13/20 24 Discontinued(Med ication/Dose Changed) documented as of this encounter (statuses as of 05/05/2024) Active Problems Problem Noted Date Diagnosed Date [...] as of this encounter (statuses as of 05/05/2024) Social History Tobacco Use Types Packs/Day Years [...] encounter Miscellaneous Notes * Telephone Encounter - Wilder Forte OSA - 05/05/2024 3:44 PM EDTSigned Prescriptions: Disp Refills Xarelto 20 MG Oral Tablet (Rivaroxaban) 90 Tab*5 Sig: TAKE ONE TABLET EVERY DAYAuthorizing Provider: CHUY MARIA * Telephone Encounter - Wilder Forte OSA - 05/05/2024 3:44 PM EDT Pt is scheduled to see Nat 06/02/24 * Telephone Encounter - Amilcar Sheth LPN - 04/13/2024 2:07 PM EDTPending Prescriptions: Disp Refills Xarelto 20 MG Oral Tablet [Pharmacy Med Na*90 Tab*5 Sig: TAKE ONE TABLET EVERY DAY * Telephone Encounter - Amilcar Sheth LPN - 04/13/2024 2:05 PM EDT Please contact patient to make follow up apt with new PCP. Past pt Last seen 07/2023 She should have enough to get her through 10/08 * Telephone Encounter - Amilcar Sheth LPN - 04/13/2024 2:04 PM EDT Pending Prescriptions: Disp Refills Xarelto 20 MG Oral Tablet (Rivaroxaban) [*90 Tab*5 Sig: TAKE ONE TABLET EVERY DAY Last Visit: 07/28/2023 (in office), Visit date not found (telemedicine) Next Visit: Visit date not found Last date the medication was ordered: 04/09/2023 Patient Active Problem List Diagnosis Other specified types of schizophrenia, chronic condition Panic disorder Peptic ulcer Type 2 diabetes mellitus with hemoglobin A1c goal of less than 8.0% (HCC) Schizoaffective disorder (HCC) Tobacco use disorder Gastroesophageal reflux disease without esophagitis 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 Call Placed, Left message on voicemail to call back and schedule appointment. Thank you, Shira Donis CPhT Assessment Director III Centralized Clinical Pharmacy Services ( Formerly Telepharmacy) 04/13/2024,1:57 PM * Telephone Encounter - Ender Jefferson [facility] - 04/13/2024 9:29 AM EDT Pending Prescriptions: Disp Refills Xarelto 20 MG Oral Tablet [Pharmacy Med Na*90 Tab*5 Sig: TAKE ONE TABLET EVERY DAY * Telephone Encounter - Ender Jefferson [facility] - 04/13/2024 9:26 AM EDT Please contact patient so that an appointment can be scheduled with her PRIMARY CARE provider before this refill can be authorized. After contacting patient, please forward request to the provider they schedule with (if unable to reach, use [place] [facility]). Previous no show Last Visit: 07/28/2023 (in office), Visit date not found (telemedicine) Next Visit: Visit date not found Ender Cash, PharmD Clinical Pharmacist Centralized Clinical Pharmacy Services(formerly telepharmacy) [phone] 04/13/2024, 9:28 AM documented in this encounter Plan of Treatment Upcoming Encounters Date Type Department Care Team (Late st Contact Info) Description 05/17/2024 9:00 AM EDT Office Visit [facility] [address] [place] [address] Leeroy Salas MD [address] [place] [address] 06/02/2024 12:00 PM EDT Office Visit [address] [phone] Nat Lpoez PA-C [address] [place] [address] [place] [phone] Health Maintenance Due Date Last Done Comments DISCUSS TOBACCO CESSATION (REFER TO SMARTSET #8808) 1955 Pneumococcal Vaccine: 65+ Years (1 of [...] HbA1c 01/26/2024 07/28/2023 Influenza Vaccine (FLU shot) (Season Ended) 2024 GFR 07/28/2024 07/28/2023, 06/15, 06/20/2023, Additional history exists Colonoscopy 09/24/2027 09/24/2017 Colorectal Cancer Screening 09/24/2027 Lipid Panel 07/28/2028 07/28/2023 GARDASIL-HPV IMMUNIZATION SERIES Aged Out No longer eligible based on patient's age to complete this topic Hepatitis B Aged Out No longer eligi ble based on patient's age to complete this topic MENINGOCOCCAL (MENACTRA/MENVEO) Aged Out No longer eligible based on patient's age to complete this topic documented as of this encounter Medical Devices Not on filedocumented as of this encounter
--- OUTSIDE RECORDS SUMMARY | 2024-10-18 23:08 | External Medical Summary | Summary of Care ---
Author Name Unknown Organization [facility] Address [address] [place] [address] Phone [phone] Care Team Providers Care Photoengraving Apprentice Name Role Phone Unavailable Primary Care Provider Unavailabl e Reason for Visit * Reason Onset Date Comments Med Request 05/26/2024 Encounter Details Date Type Department Care Team (Late st Contact Info) Description 05/26/2024 Telephone Family Medicine [address] [place] [phone] Nat Lopez PA-C [address] [place] [address] [place] [address] Med Request Allergies Active Allergy Reactions Criticality Noted Date Comments Penicillins 08/07/2005 vomiting and itchy documented as of this encounter (statuses as of 05/26/2024) Medications Medication Sig Dispensed Refills Start Date [...] DAY 378 g 1 11/09/2023 Active Creon 59349-38380 UNIT Oral Capsule Delayed Release Particles (Pancrelipase (Xsf-Iqtu-Qwch)) One capsule three times a day 90 [...] as of this encounter (statuses as of 05/26/2024) Active Problems Problem Noted Date Diagnosed Date [...] as of this encounter (statuses as of 05/26/2024) Social History Tobacco Use Types Packs/Day Years [...] encounter Miscellaneous Notes * Telephone Encounter - Neida Youngblood CPhT - 05/26/2024 12:20 PM EDT Maryam yoder from [email or web address] in regards to if PCP office got the fax for incontinence/ testing supplies. Fax #: [phone] Thank you, Neida Youngblood CPhT Cross Tie Cutter II [facility] ([facility]) 05/26/2024,12:22 PM documented in this encounter Plan of Treatment Upcoming Encounters Date Type Department Care Team (Late st Contact Info) Description 06/02/2024 12:00 PM EDT Office Visit Family Medicine [address] [place] [phone] Nat Lopez PA-C [address] [place] [address] [place] [phone] 06/08/2024 9:20 AM EDT Office Visit NephrologyScar [address] [place] [address] [place], [place] [address] HinojosaShira naranjo MD [address] [place], [place] [address] Health Maintenance Due Date Last Done Comments DISCUSS TOBACCO CESSATION (REFER TO SMARTSET #2492) 1955 Pneumococcal Vaccine: 65+ Years (1 of [...]
--- OUTSIDE RECORDS SUMMARY | 2024-10-18 23:08 | External Medical Summary | Summary of Care ---
Author Name Unknown Organization [facility] Address [address] [place] [address] Phone [phone] Care Team Providers Care Provider Enrollment Specialist Name Role Phone Nat Lopez PA-C Primary Care Provider [phone]- [phone] Reason for Visit * Reason Onset Date Comments eRx-Medication Refill Appointment 02/18/2024 Encounter Details Date Type Department Care Team (Late st Contact Info) Description 02/18/2024 Refill Family Medicine [address] [phone] Nat Lopez PA-C [address] [place] [address] [place] [address] Allergies Active Allergy Reactions Criticality Noted Date [...] Release (Depakote ) 3 tabs at bedtime 2 Active Escitalopram [...] DAY 378 g 1 3 Active Creon 599[address] UNIT Oral Capsule Delayed Release Particles (Pancrelipase (Wra-Snbw-Egwi)) One capsule three times a day 90 [...] 5 3 04/13/20 24 Discontinued(Med ication/Dose Changed) metFORMIN HCl ER 500 MG Oral Tablet Extended Release 24 Hour (Glucophage XR) TAKE ONE TABLET BY MOUTH TWICE DAILY 60 Tablet 5 3 02/21/20 24 Discontinued documented as of this encounter [...] use of anticoagulant therapy 0 06/16/2023 Overview: Evato IBS (irritable bowel syndrome) 06/16/2023 Other specified [...] Encounter - Wilder Forte OSA - 05/05/2024 3:15 PM EDTSigned Prescriptions: Disp Refills metFORMIN HCl ER 500 MG Oral Tablet Extend*60 Tab*5 Sig: TAKE ONE TABLET BY MOUTH TWICE DAILYAuthorizing Provider: SANIYA BANKS * Telephone Encounter - Wilder Forte OSA - 05/05/2024 3:15 PM EDT Pt is scheduled w Wednesday06/02/24 * Telephone Encounter - Rena Broussard RN - 02/21/2024 1:38 PM EDTPending Prescriptions: Disp Refills metFORMIN HCl ER 500 MG Oral Tablet Extend*60 Tab*5 Sig: TAKE ONE TABLET BY MOUTH TWICE DAILY * Telephone Encounter - Rena Broussard RN - 02/21/2024 1:36 PM EDT Please call pt to schedule an appt to establish. She cancelled her last one. Last visit was 07/2023 Meds pended * Telephone Encounter - Shira Donis CPhT - 02/21/2024 12:49 PM EDTPending Prescriptions: Disp Refills metFORMIN HCl ER 500 MG Oral Tablet Extend*60 Tab*5 Sig: TAKE ONE TABLET BY MOUTH TWICE DAILY * Telephone Encounter - Shira Donis CPhT - 02/21/2024 12:49 PM EDT Received message from [facility] regarding patient needing appointment. Call Placed, Left message on voicemail to call back and schedule appointment. Thank you, Shira Donis CPhT Nuclear Medicine Medical Director III Centralized Clinical Pharmacy Services ( Formerly Telepharmacy) 02/21/2024,12:49 PM * Telephone Encounter - Antonietta Del Castillo [facility] - 02/19/2024 2:20 PM EDTPending Prescriptions: Disp Refills metFORMIN HCl ER 500 MG Oral Tablet Extend*60 Tab*5 Sig: TAKE ONE TABLET BY MOUTH TWICE DAILY Electronically signed by Antonietta Del Castillo [facility] at 02/19/2024 2:20 PM EDT * Telephone Encounter - Antonietta Del Castillo [facility] - 02/19/2024 2:18 PM EDT Please contact patient so that an appointment can be scheduled with her PRIMARY CARE provider before this refill can be authorized. After contacting patient, please forward request to the provider they schedule with (if unable to reach, use [facility]). Must establish with new PCP and previously scheduled for hospital discharge follow up (/ - pt cancelled). Last Visit: 07/28/2023 (in office), Visit date not found (telemedicine) Next Visit: Visit date not found Antonietta Cash, PharmD Clinical Pharmacist [facility] ([facility] - Former[facility] Telepharmacy) [phone] 02/19/2024 2:19 PM Electronically signed by Antonietta Del Castillo [facility] at 02/19/2024 2:20 PM EDT documented in this encounter Plan of Treatment Upcoming Encounters Date Type Department Care Team (Late st Contact Info) Description 05/17/2024 9:00 AM EDT Office Visit Nephrology, [facility] [address] [place] [address] Leeroy Salas MD [address] [place] [address] 06/02/2024 12:00 PM EDT Office Visit Family Medicine [address] [place] [phone] Nat Lopez PA-C [address] [place] [address] [place] [address] Health Maintenance Due Date Last Done Comments DISCUSS TOBACCO CESSATION (REFER TO SMARTSET #1988) 1955 Pneumococcal Vaccine: 65+ Years (1 of [...] filedocumented as of this encounter Care Teams Provider Enrollment Specialist Relationship Specialty Start Date End Date Nat Lopez PA-C [address] [facility] [place], [place] [address] PCP - General Physician Social Worker Health Services 03/15/24 03/20/24 documented as of this encounter
--- OUTSIDE RECORDS SUMMARY | 2024-10-18 23:08 | External Medical Summary | Summary of Care ---
Author Name Unknown Organization [facility] Address [address] [place] [address] Phone [phone] Care Team Providers Care Call Center Operator Name Role Phone PrashanthIssa albertsamber Castano PA-C Primary Care Provider [phone]- [phone] Reason for Visit * Reason Onset Date Comments Hospital Follow-Up 01/20/2024 Encounter Details Date Type Department Care Team (Late st Contact Info) Description 01/20/2024 Telephone General Internal Medicine [facility] [place] [address] [facility] [place] [address] Desmond Villasenor MD [address] [place] [address] [place] [id number] Hospital Follow-Up Allergies Active Allergy Reactions Criticality Noted Date Comments Penicillins 08/07/2005 vomiting and itchy documented as of this encounter (statuses as of 04/20/2024) Medications Medication Sig Dispensed Refills Start Date [...] DAY 378 g 1 11/09/2023 Active Creon 66053-33210 UNIT Oral Capsule Delayed Release Particles (Pancrelipase (Oga-Rgav-Htdn)) One capsule three times a day 90 Capsule 5 12/20/2023 Active Pantoprazole Sodium 40 MG Oral Tablet Delayed Release (Protonix)Indication s:Gastroesophageal reflux disease without esophagitis TAKE ONE TABLET IN THE MORNING 90 Tablet 1 01/19/2024 Active documented as of this encounter (statuses as of 04/20/2024) Active Problems Problem Noted Date Diagnosed Date Body mass index (BMI) of 45.0 to 49.9 in adult 1 Overview: Per Obesity protocol Type 2 diabetes mellitus wit h hemoglobin A1c goal of less than 8.0% 06/16/2023 Schizoaffective disorder 06/16/2023 Tobacco use disorder 06/16/2023 Gastroesophageal reflux disease without esophagi tis 06/16/2023 History of pulmonary embolism 06/16/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 0 06/16/2023 Overview: Xarelto IBS (irritable bowel syndrome) 06/16/2023 Other specified types of schizophrenia, chronic condition 08/07/2005 Panic disorder 08/07/2005 Peptic ulcer 08/07/2005 documented as of this encounter (statuses as of 04/20/2024) Social History Tobacco Use Types Packs/Day Years [...] Telephone Encounter - Lalitha Wynn LPN - 01/20/2024 1:35 PM EST Lab orders placed in [facility] system Please arrange hospital discharge apt and notify Pt for the need for labs * Telephone Encounter - Flynn Whalen RN - 01/20/2024 12:40 PM EST Patient discharged home from [facility] 01/19/24. Nephrology consulted and recommends: hospital d/c appt w/ Dr Maritza lepe in 2 -3 wks w/ renal nurse to order bmp, urine osms, serum osms, urine electrolytes, serum magnesium. Please assist with these recommendations. Thank you documented in this encounter Plan of Treatment Upcoming Encounters Date Type Department Care Team (Late st Contact Info) Description 04/26/2024 1:00 PM EDT Office Visit [facility] [place] [address] [place] [address] Leeroy Salas MD [address] [facility] [place] [address] Scheduled Orders Name Type Priority Associated Diagnoses Orde r Schedule BASIC METABOLIC PANEL Lab Routine Hyponatremia Expected: 01/20/2024, Expires: 01/19/2025 OSMOLALITY, SERUM Lab Routine Hyponatremia Expected: 01/20/2024, Expires: 01/19/2025 OSMOLALITY, URINE Lab Routine Hyponatremia Expected: 01/20/2024, Expires: 01/19/2025 ELECTROLYTES, RANDOM URINE Lab Routine Hyponatremia Expected: 01/20/2024, Expires: 01/19/2025 MAGNESIUM Lab Routine Hyponatremia Expected: 01/20/2024, Expires: 01/19/2025 Health Maintenance Due Date Last Done Comments DISCUSS TOBACCO CESSATION (REFER TO SMARTSET #8296) 1955 Pneumococcal Vaccine: 65+ Years (1 of 2 - PCV) 1963 Depression Screening 1969 Albumin/Creatinine Ratio 1975 Diabetic Eye Exam 1975 Diabetic Foot Exam 1975 Hepatitis C Screening 1975 DTaP,Tdap,and Td Vaccines (1 - Tdap) 1976 Mammogram 1997 Cologuard 2002 Colonoscopy 2002 Colorectal Cancer Screening 2002 Fecal Occult Blood Test 2002 Sigmoidoscopy 2002 Lung Cancer Screening 2007 Zoster Vaccines (1 of 2) 2007 DXA Scan 2022 COVID-19 Vaccine (2 - [...] as of this encounter Visit Diagnoses Diagnosis Hyponatremia- Primary Hyposmolality and/or hyponatremia documented in this encounter Care Teams Call Center Operator Relationship Specialty Start Date End Date Nat Lopez PA-C [address] [place] [address] PCP - General Physician Elastic Yarn Twister 03/15/24 03/20/24 documented as of this encounter
[2024-10-19 06:54] LABS: Hematocrit (blood only) 34.9 % (37.0-47.0); Hemoglobin 11.3 g/dl (12.0-16.0); Mean Corpuscular Hemoglobin 29.9 pg (25.0-34.0); Mean Corpuscular Hgb Conc 32.4 g/dL (32.0-36.0); Mean Corpuscular Volume 92.3 fL (80.0-100.0); Mean Platelet Volume 9.4 fL (9.4-12.4); Platelet Count 197 K/uL (130-400); RDW Standard Deviation 63.3 fL (36.4-46.3); Red Blood Count 3.78 M/uL (4.20-5.40); White Blood Count 7.14 K/ul (4.8-10.8)
[2024-10-19 07:08] VITALS: BP 93/61; PULSE 62; RESP 15; TEMP 98.1; O2SAT 94
[2024-10-19 07:20] LABS: BUN Creatinine Ratio 12.7 (10-20); Calcium 8.5 mg/dl (8.6-10.3); Creatinine Clr Calc Pharmacy 102.6 ml/min; Potassium 4.3 mmol/L (3.5-5.1)
--- NOTE | 2024-10-19 15:37 | Discharge Summary ---
Date of Service October 19, 2024 Admission HPI Per Admitting Provider This is a 69-year-old female with PMH of type 2 diabetes, hypothyroidism, prolonged QT interval on EKG, stress incontinence, schizoaffective disorder, history of PE on long-term anticoagulation, panic disorder, tobacco use disorder, ambulatory dysfunction and other medical problems listed below who presents with weakness and abdominal pain over the past few days. Patient lives with her daughter and ambulates with a walker at baseline. Over the past few days, having more difficulty ambulating around the home. Also notes diffuse abdominal discomfort and pain near her rectum like she needs to have a bowel movement. Denies any nausea or vomiting. No fever, chills, chest pain, shortness of breath, dysuria. Does have some excoriation noted on groin area and states that she has urinary incontinence and area is irritated and itchy. Denies any vaginal burning or discharge. Reportedly had a fall recently and broke her left arm, was discharged from [facility], unsure of all details. Was prescribed tramadol yesterday for pain. Admission Exam Per Admitting Provider General Appearance: WD/WN, vitals as above, NAD, sitting up in bed, pleasant, poor insight Head: normocephalic, atraumatic Eyes: normal inspection, PERRL, conjunctivae normal, anicteric sclerae ENT: external ear and nose normal, oropharynx normal Neck: normal visual inspection, trachea midline, no thyromegaly Respiratory: normal respiratory effort, lungs clear to auscultation, no wheeze, rales, rhonchi. No accessory muscle use Cardiovascular: regular rate, rhythm, normal peripheral pulses, no BLE edema. Vessels: no JVD Chest: normal inspection of chest Abdomen/GI: normal bowel sounds, soft, diffuse TTP in LLQ/RLQ, no hepatosplen omegaly Extremities/Musculoskeletal: no cyanosis or clubbing, extremities motor strength 5/5 Neurologic: PERRL, EOMI, accommodation nl, no face palsy, no dysarthria, CN's II-XI intact bilaterally and moves all extremities Psychiatric: A+Ox3 Skin: no rashes, normal color, warm/dry. Groin area/bilateral medial thighs erythematous and excoriated Principal Diagnosis Acute UTI Generalized weakness Discharge Exam Constitutional: Alert oriented x 3; not in distress. Respiratory: Bilateral vesicular breath sound. Cardiovascular: RRR, no murmur, no edema Vessels: no JVD or carotid bruit Chest: normal inspection of chest Abdomen: normal bowel sounds, soft, nontender, no hepatosplenomegaly Musculoskeletal: Left arm with Kerlix bandage; pulse intact. Neurologic: PERRL, EOMI, accommodation nl, no face palsy, no dysarthria CN's II- XI intact bilaterally and moves all extremities Psychiatric: A+Ox3, euthymic affect Discharge Data Allergies Allergy/AdvReac Type Severity Reaction Status Date / Time bee venom protein (honey bee) Allergy Severe Anaphylaxis Verified 01/10/24 02:33 egg AdvReac Severe Vomiting Verified 01/10/24 02:33 Penicillins AdvReac Severe VOMITING/IT Verified 01/10/24 02:33 DAVON Consultations 10/17/24 14:34 ED Decision to Admit Stat Ordered Studies 10/17/24 12:15 CT abd pelvis IV con only Stat Hospital Course (1) Acute UTI: (2) Acute metabolic encephalopathy: (3) Constipation: (4) Multiple falls: (5) Arm pain, left: (6) Prolonged Q-T interval on ECG: (7) DM II (diabetes mellitus, type II), controlled: (8) History of pulmonary embolism: (9) Schizoaffective disorder: Plan Acute UTI Urinalysis concerning for infection Urine culture growing Klebsiella Treated with ceftriaxone; discharged on cefdinir Constipation CT abd/pelvis without bowel obstruction or pneumoperitoneum. Moderate fecal retention Patient treated with aggressive bowel movement; discussed at discharge regarding using MiraLAX for constipation. Left humeral fracture Patient unsure when she broke her arm - per records, was admitted 09/09 to [facility] for distal humeral transcondylar fracture. Got significantly somnolent with norco and her home klonopin Discharged from [facility] on 09/27. Follow-up with orthopedic as outpatient PT OT had recommended rehab. However, patient's daughter wanted her to come home. Patient was discharged home with instructions to follow-up with PCP. Please note the above document was generated using voice recognition software. It may contain grammatical, syntax or spelling errors. Any formal questions or concerns about the content, text or information contained within the body of this dictation should be directly addressed to the provider for clarification Total Time Total Time Spent Total Time Spent (In Minutes): 34 Total Time Includes: Examination of the Patient, Discharge Planning, Medication Reconciliation, Communication With Other Providers and Other Discharge Plan Discharge Items Patient Disposition: Home - Self-Care Reason For Visit: AMS, UTI, WEAKNESS Discharge Diagnosis: Urinary tract infection Constipation Activity: Resume your previous activity Non-emergency contact: Primary Care Provider Call non-emergency contact if: you have any medication questions and your symptoms worsen Follow-up/Referrals: Nat Lopez PA-C [Primary Care Provider] - Diet: Regular Addtl Attending Provider Instructions: You were admitted to the hospital due to urinary tract infection and constipation. For the urinary tract infection, you are prescribed cefdinir 300 mg twice a day for 5 days. For constipation-if you do not have a bowel movement for more than 2 days; stop taking colestyramine and start taking MiraLAX twice a day. Please follow-up with your primary care doctor. Pending Studies at Discharge: No Stand-Alone Forms: [employer], Smoking Cessation Medications and DC Order Prescriptions: New cefdinir 300 mg capsule 300 mg PO BID 5 Days Qty: 10 0RF polyethylene glycol 3350 [Miralax] 17 gram/dose powder 17 g PO DAILY PRN (Reason: constipation) Qty: 119 0RF Continued pantoprazole 40 mg tablet,delayed release (DR/EC) 40 mg PO DAILY divalproex 500 mg tablet extended release 24 hr 1,500 mg PO HS gabapentin 100 mg capsule See Rx Instructions .ROUTE .COMPLEX Rx Instructions: 2 cap in am and at noon, three capsule at bedtime. metformin 500 mg tablet extended release 24 hr 500 mg PO BID cholestyramine (with sugar) 4 gram powder 4 ea PO DAILY Creon 12,000-38,000 -60,000 unit capsule,delayed release(DR/EC) 1 cap PO AC Xarelto 20 mg tablet 20 mg PO DAILY quetiapine [Seroquel] 200 mg Tablet 200 mg PO HS Qty: 10 0RF magnesium oxide 400 mg (241.3 mg magnesium) Tablet 400 mg PO QAM Qty: 10 0RF clonazepam 0.5 mg Tablet 0.5 mg PO BIDM PRN (Reason: anxiety) Qty: 7 0RF benztropine 0.5 mg tablet 0.5 mg PO BID tramadol 50 mg tablet 50 mg PO Q8H PRN (Reason: Pain (Scale Score 4-6)) buspirone 15 mg tablet 15 mg PO TID Discharge Orders: Discharge Order (Routine); Ordered 10/19/24 Ordered By: Mynor Garcia Admission Data Admit Date/Time: 10/17/24 14:47 Attending Provider: Mynor Garcia Admit Provider: Filipe Wakefield Primary Care Provider: Nat Lopez Other Providers: Filipe Wakefield; [facility] Other Interventions: Discharge Summary Assessment (RN) Last Done: 10/19/24 15:00
== END 2024-10-19 15:54 | disposition home or self-care (01) | DRG 689 ==
LOC: ED 11:02 → EDINP 14:47 → SUATTDRO 14:47 → 3W 16:42